=== PATIENT | female | born 1945 | race African-American/Black ===

== ENCOUNTER 2022-11-24 12:42 | Outpatient (CLI) | payer MEDICARE, BC, SELFPAY | END 2022-11-24 12:43 | disposition home or self-care (01) | LOC: AMB 11-27 09:20 | PROVIDERS: PCP Family Medicine; Visit Provider Emergency Medicine | DX: R06.02 Shortness of breath (principal) | CPT/HCPCS: A0425; A0427 ==

== ENCOUNTER 2022-11-24 13:09 | Emergency (ER) | payer MEDICARE, BC, SELFPAY ==
[2022-11-24] VITALS (31 sets, daily range): BP systolic 112–174; BP diastolic 57–91; PULSE 62–78; RESP 20; TEMP 36.1; O2SAT 88–98
--- NOTE | 2022-11-24 13:19 | CRLHL7_ITS ---
For Patients: As a result of the Century Cures Act, medical imaging exams and procedure reports are released immediately into your electronic medical record. You may view this report before your referring provider. If you have questions, please contact your health care provider. INDICATION: Shortness of breath. TECHNIQUE: AP and lateral chest. COMPARISON: 02/17/2018. FINDINGS: Lungs clear. Normal heart size and pulmonary vascularity. No pleural effusion. No pneumothorax. IMPRESSION: No acute chest findings. Dictated by Magdy Newberry MD @ 11/24/2022 2:12:05 PM (Electronically Signed)
[2022-11-24] MEDS: IPRAT-ALBUT 0.5-2.5 MG/3 ML NEB 1 NEB IH (13:20)
--- NOTE | 2022-11-24 13:26 | RESP.RT ---
Patient with shortness of breath presents to ER via EMS. Takes home Albuterol nebulizer treatments. BS wheezy throughout all lung monsivais. Room air spo2 92-93%. JF 64, RR 20-24. Able to speak in full sentences. Complaints of SOB with movement. Duo neb given via HHN. Tolerated well. BS improvement in wheezing throuhgout lung monsivais. Faint crackles in bases. Patient is coughing up clear secretions at home. Will continue to monitor.
[2022-11-24 14:13] LABS: Lactate* 1.1 mmol/L (0.5-1.9)
--- NOTE | 2022-11-24 14:14 | ED.GENADULT ---
HPI - General Adult General Chief complaint: Shortness of Breath/Dyspnea Stated complaint: Shortness of breath Time Seen by Provider: 11/24/22 13:18 Source: patient Mode of arrival: EMS Limitations: no limitations History of Present Illness HPI narrative: Patient is a 77-year-old very frail female coming in today for shortness of breath. States she has been short of breath for over a week. States that she coughs on and off. She denies any chest pain, dizziness or diaphoresis. She denies any fevers that she is aware of, she denies any chills. She denies any vomiting or feeling nauseated. Patient does daily at home peritoneal dialysis. Patient does have a history of COPD, does continue to smoke daily, however she has been working hard on cutting down. Related Data Allergies Allergy/AdvReac Type Severity Reaction Status Date / Time lisinopril AdvReac Cough Verified 11/24/22 13:26 Review of Systems Status of ROS: Reports: 10 or more systems reviewed and unremarkable except as noted in History and below PFSH PFS Social History Smoking Status: Current some day smoker What tobacco products do you use: cigarettes Do you use any of these nicotine containing products: None How often do you have a drink containing alcohol: never AUDIT-C Alcohol total score: 0 Non-prescribed substance use: denies use Exam Narrative: Exam Narrative: Elderly, frail patient with slightly labored breathing. Alert and oriented x3. Answers questions appropriately. Mood and affect are appropriate. Thoughts are goal oriented and rational. No tangential or magical thinking noted. Patient cannot complete a sentence without catching her breath. HEENT: Normocephalic atraumatic. Pupils are equally round reactive to light. Extraocular muscles are intact. Conjunctivae are moist without any icterus noted. Moist mucous membranes. No JVD. Cardiovascular: Heart is regular rate and rhythm heart sounds are distant. Lungs: Bilateral wheezing and bibasilar end-expiratory crackles. Abdomen: Soft and distended. She has normal bowel sounds. Peritoneal dressing in place. Extremities: Bilateral lower extremities are without edema. Skin: Well perfused. Const: Vital Signs, click to edit/add: Vital Signs - 24 hr 11/24/22 13:19 11/24/22 13:19 11/24/22 13:45 Temperature 96.9 F L Pulse Rate 63 Pulse Rate [Pulse Oximeter] 66 Respiratory Rate 20 Blood Pressure Blood Pressure [Ri ght Upper Arm] 174/61 H Pulse Oximetry 93 93 [facility] 11/24/22 14:20 11/24/22 14:30 11/24/22 14:45 Temperature Pulse Rate 62 65 67 Pulse Rate [Pulse Oximeter] Respiratory Rate Blood Pressure Blood Pressure [Ri ght Upper Arm] Pulse Oximetry 93 91 92 [facility] 11/24/22 15:00 11/24/22 15:13 11/24/22 15:15 Temperature Pulse Rate 69 72 68 Pulse Rate [Pulse Oximeter] Respiratory Rate Blood Pressure Blood Pressure [Ri ght Upper Arm] Pulse Oximetry 93 96 97 [facility]/24/22 15:30 11/24/22 15:32 11/24/22 15:45 Temperature Pulse Rate 66 65 65 Pulse Rate [Pulse Oximeter] Respiratory Rate 20 Blood Pressure 140/57 H Blood Pressure [Ri ght Upper Arm] Pulse Oximetry 93 93 88 [facility] 11/24/22 16:00 11/24/22 16:01 11/24/22 16:15 Temperature Pulse Rate 64 63 69 Pulse Rate [Pulse Oximeter] Respiratory Rate 20 Blood Pressure 112/57 L Blood Pressure [Ri ght Upper Arm] Pulse Oximetry 90 90 93 [facility] 11/24/22 16:30 11/24/22 16:32 11/24/22 16:45 Temperature Pulse Rate 69 66 69 Pulse Rate [Pulse Oximeter] Respiratory Rate 20 Blood Pressure 145/59 H Blood Pressure [Ri ght Upper Arm] Pulse Oximetry 93 94 94 [facility] Course Course ED Course: Patient received a DuoNeb which improved her symptoms quite a bit. On reexamination she was able to speak in full sentences without needing to catch her breath, breathing was no longer labored. She was not tachypneic. However, with minimal ambulation patient quickly becomes tachypneic and her breathing becomes labored. Chest x-ray, read by me, did not show any acute infiltrates. EKG, read by me, shows normal sinus rhythm with a pulse of 63. Lab work showed an unremarkable CBC, normal lactate. Elevated creatinine and BUN as expected, normal potassium. Troponin was normal. COVID-19 positive. Vital Signs Vital signs: Initial Vital Signs Temperature 96.9 F L 11/24/22 13:19 Temperature Source Temporal Artery Scan 11/24/22 13:19 Pulse Rate 66 11/24/22 13:19 Pulse Rhythm Regular 11/24/22 13:19 Respiratory Rate 20 11/24/22 13:19 Blood Pressure 174/61 H 11/24/22 13:19 Blood Pressure Mean 98 11/24/22 13:19 Blood Pressure Position Sitting 11/24/22 13:19 Pulse Oximetry 93 11/24/22 13:19 Oxygen Delivery Method Room Air 11/24/22 13:19 Vital Signs Temperature 96.9 F L 11/24/22 13:19 Pulse Rate 66 11/24/22 13:19 Respiratory Rate 20 11/24/22 13:19 Blood Pressure 174/61 H 11/24/22 13:19 Pulse Oximetry 93 11/24/22 13:19 Oxygen Delivery Method Room Air 11/24/22 13:19 Temperature 96.9 F L 11/24/22 13:19 Pulse Rate 69 11/24/22 16:45 Respiratory Rate 20 11/24/22 16:32 Blood Pressure 145/59 H 11/24/22 16:32 Pulse Oximetry 94 11/24/22 16:45 Oxygen Delivery Method Room Air 11/24/22 16:32 Medical Decision Making MDM Narrative Medical decision making narrative: 77-year-old frail elderly female with COVID-19 and failure to thrive at home with increasing shortness of breath. At this time I do not feel that the patient is safe to go home despite the fact that she is not hypoxic given that she requires help with ambulation and becomes very short of breath very quickly. Because of her daily dialysis patient cannot be accepted at [facility], therefore hospital systems across the [facility] were called and we did find her a bed at [facility]. Patient will be transferred via ALS ambulance. Medical Records Medical records reviewed: Yes I reviewed the patient's medical records Lab Data Lab results reviewed: Yes I reviewed the patient's lab results Labs: Lab Results 11/24/22 Range/Units 14:00 WBC 7.25 (4.50-11.00) K/uL RBC 4.06 (4.00-5.20) m/uL Hgb 11.9 L (12.0-16.0) gm/dL Hct 37.1 (33.0-51.0) % MCV 91 (80-100) fL MCH 29 (26-34) pg MCHC 32 (32-36) gm/dL RDW Coeff of Margaret 14.5 (11.5-15.5) % Plt Count 252 (140-440) K/uL Neut % (Auto) 81.3 H (42.0-72.0) % Lymph % (Auto) 7.0 L (20-44) % [place] % (Auto) 7.3 (0.0-11.0) % Eos % (Auto) 3.7 (0.0-7.0) % Baso % (Auto) 0.1 (0.0-3.0) % Neut # (Auto) 5.90 (1.7-7.0) K/uL Lymph # (Auto) 0.50 L (0.90-2.90) K/uL [place] # (Auto) 0.50 (0.00-0.90) K/UL Eos # (Auto) 0.27 (0.00-0.50) K/uL Baso # (Auto) 0.01 (0.00-0.30) K/uL Abs Immat Gran (auto) 0.04 (0.00-0.30) K/uL Imm/Tot Granulo (auto) 0.6 % ESR 78 H (2-20) mm/hr Sodium 129 L (135-149) mmol/L Potassium 4.9 (3.6-5.1) mmol/L Chloride 94 L (96-114) mmol/L Carbon Dioxide 24 (20-32) mmol/L Anion Gap 11 (7-15) mEq/L BUN 84 H (7-30) mg/dL Creatinine 5.0 H (0.5-1.5) mg/dL Estimated GFR 9 ml/min Glucose 196 H (60-115) mg/dL Lactate 1.1 (0.5-1.9) mmol/L Calcium 8.5 (8.4-10.6) mg/dL Magnesium 2.3 (1.5-2.6) mg/dL Total Bilirubin 0.6 (0.1-1.5) mg/dL Direct Bilirubin 0.3 (0.0-0.5) mg/dL AST 31 (12-35) U/L ALT 17 (4-35) U/L Alkaline Phosphatase 106 (40-150) U/L Troponin I < 0.01 L (0.01-0.04) ng/mL C-Reactive Protein 3.5 H (0.5-1.0) mg/dL NT-Pro-B Natriuret Pep 1940 pg/mL Total Protein 6.9 (6.0-8.3) g/dL Albumin 3.3 (3.3-5.0) g/dL SARS-CoV-2 (PCR) POSITIVE SARS-CoV-2 A (Negative) Influenza Type A (PCR) Negative PCR FLU A (Negative) Influenza Type B (PCR) Negative PCR FLU B (Negative) RSV (PCR) Negative PCR RSV (Negative) POC Troponin I 0.00 L (0.01-0.04) ng/ml Imaging Data Chest x-ray: Attestation: I have reviewed the pertinent imaging results. Radiologist's impression: AP and lateral chest. COMPARISON: 02/17/2018. FINDINGS: Lungs clear. Normal heart size and pulmonary vascularity. No pleural effusion. No pneumothorax. IMPRESSION: No acute chest findings. ECG Data Attestation: I personally reviewed and interpreted this ECG as follows: Discharge Plan Discharge Clinical Impression: COVID-19, Frailty Patient Disposition: Xfer Other Condition: Stable Follow Up/Referrals: Tyrell Schneider MD [Primary Care Provider] - Stand Alone Forms: Classting Info Instructions
[2022-11-24 14:16] LABS: Basophils Absolute Auto 0.01 K/uL (0.00-0.30); Basophils Percent Auto 0.1 % (0.0-3.0); Eosinophils Absolute Auto 0.27 K/uL (0.00-0.50); Eosinophils Percent Auto 3.7 % (0.0-7.0); Hematocrit 37.1 % (33.0-51.0); Hemoglobin* 11.9 gm/dL (12.0-16.0); Immature Granulocytes Abs Auto 0.04 K/uL (0.00-0.30); Immature Granulocytes Pct Auto 0.6 %; Mean Corpuscular HGB Conc 32 gm/dL (32-36); Mean Corpuscular Hemoglobin 29 pg (26-34); Mean Corpuscular Volume 91 fL (80-100); Monocytes Percent Auto 7.3 % (0.0-11.0); Neutrophils Percent Auto 81.3 % (42.0-72.0); Platelet Count* 252 K/uL (140-440); RDW Coefficient of Variation % 14.5 % (11.5-15.5); Red Blood Count 4.06 m/uL (4.00-5.20); White Blood Count* 7.25 K/uL (4.50-11.00)
[2022-11-24 14:17] LABS: Slide Review Reflex No
[2022-11-24 14:36] LABS: Albumin* 3.3 g/dL (3.3-5.0); Chloride* 94 mmol/L (96-114); Sodium* 129 mmol/L (135-149)
[2022-11-24 14:37] LABS: Potassium* 4.9 mmol/L (3.6-5.1)
[2022-11-24 14:39] LABS: Estimated Glomerular Filt Rate 9 ml/min
[2022-11-24 14:40] LABS: Alanine Aminotransferase* 17 U/L (4-35); Alkaline Phosphatase* 106 U/L (40-150); Anion Gap 11 mEq/L (7-15); Aspartate Amino Transferase* 31 U/L (12-35); Bilirubin Direct* 0.3 mg/dL (0.0-0.5); Bilirubin Total* 0.6 mg/dL (0.1-1.5); Blood Urea Nitrogen* 84 mg/dL (7-30); Calcium* 8.5 mg/dL (8.4-10.6); Carbon Dioxide* 24 mmol/L (20-32); Glucose* 196 mg/dL (60-115); Total Protein* 6.9 g/dL (6.0-8.3)
[2022-11-24 14:41] LABS: Magnesium* 2.3 mg/dL (1.5-2.6)
--- OUTSIDE RECORDS SUMMARY | 2022-11-24 14:41 | XMS_ITS | Continuity of Care Document ---
Author Name Unknown Organization [facility] Address [address] [address] [place] [address] Phone Care Team Providers Care Digital Press Operator Name Role Phone Unavailable Unavailable Unavailable Advance Directives Directive Yes / No Effective Date File Name No Information Encounters Encounter Description Practice Location Reason(s) For Visit Diagnoses Date Provider Providers Copied on Encounter [facility], [address] [address], [place], [place], [id number], [place] tel:[phone] [facility] No Information Apr- 7200 3 No Information Referring Provider: Listed Not. Family History Family Member Type Diagnosis Age At Onset No Information Payers Payer name Insurance type Covered libertarian ID Authoriza tion(s) [employer] [id number] Social History Type Description Quantity Date Captured Comments Sex Female Smoking Status No Information Chief Complaint And Reason For Visit No Information Reason For Referral Reason For Referral No Information History Of Present Illness Encounter Date Complaint History Of Prese nt Illness No Information Functional Status Date Functional Assessmen t No Information Instructions Date Instruction Additional Infor mation No Information Assessments Type Assessment Date No Information Patient Care Teams Name Effective Dates (start - stop) Status Members No Information
--- OUTSIDE RECORDS SUMMARY | 2022-11-24 14:41 | XMS_ITS | Continuity of Care Document ---
Author Name Unknown Organization [facility] Address [address] [place] [address] Phone Care Team Providers Care Secondary Special Education Teacher Name Role Phone Frankie Brunson Unavailable Unavailable Allergies, Adverse Reactions, Alerts Substance Reaction Status Criticality lisinopril Active No Information amlodipine Active No Information Medications Medication Instructions Dosage Effective Dates (start - stop) Status Comments AMLODIPINE BESYLATE (unknown strength) Not Available - Active OXYCODONE HCL (unknown strength) Not Available - Active LABETALOL HCL (unknown strength) Not Available - Active GLIPIZIDE (unknown strength) Not Available - Active FUROSEMIDE (unknown strength) Not Available - Active CLONIDINE (unknown strength) Not Available - Active Procedures Procedure Date Office/Outpatient Visit,Est, Mod 2020 Office/Outpatient Visit,New, Mod 2020 Advance Directives Directive Yes / No Effective Date File Name No Information Encounters Encounter Description Practice Location Reason(s) For Visit Diagnoses Date Provider Providers Copied on Encounter [facility], [address], [place], [place], [id number] , [place] tel:[phone] [facility] No Information 1 Vianey David. [address] [place] [address], [place], [place], [id number], [place]. [phone] Office/Outpa tient Visit,Est, Mod [facility], [address], [place], [place], [id number] , [place] [phone] [facility] Other spondylosis, lumbar regionSpinal stenosis, lumbar region with neurogenic claudication 1 Allison Lee. [facility], [address], [address], [place], [place], [id number], [place]. tel:[phone] Referring Provider: Tyrell Chamberlain, Arden Reed [address], [place], [address]. tel:[phone] Office/Outpa tient Visit,New, Mod [facility], [address], [place], [place], [id number] , [place] tel:[phone] [facility] Spinal stenosis, lumbar region with neurogenic claudicationOt her spondylosis, lumbar region 1 No Information Referring Provider: Tyrell Chamberlain, Arden Reed [address], [place], [address]. tel:[phone] Family History Family Member Type Diagnosis Age At Onset No Information Payers Payer name Insurance type Covered libertarian ID Authorcarmenzaa hernesto(s) [facility] [id number] Medicare [facility] [id number] 1 Social History Type Description Quantity Date Captured [...]
[2022-11-24 14:43] LABS: C Reactive Protein* 3.5 mg/dL (0.5-1.0)
[2022-11-24 14:54] LABS: NT Pro B Type NatriureticPept* 1940 pg/mL; Troponin I* < 0.01 ng/mL (0.01-0.04)
[2022-11-24] MEDS: predniSONE 20 MG TABLET 60 MG PO (14:55)
[2022-11-24 15:04] LABS: PCR FLU A Negative PCR FLU A (Negative); PCR FLU B Negative PCR FLU B (Negative); PCR RSV Negative PCR RSV (Negative)
[2022-11-24 15:07] LABS: SARS PCR* POSITIVE SARS-CoV-2 (Negative)
[2022-11-24 15:20] LABS: Erythrocyte SedimentationRate* 78 mm/hr (2-20)
== END 2022-11-24 20:12 | disposition other institution (70) ==
PROVIDERS: Emergency Provider Family Medicine; PCP Family Medicine
DX: U07.1 COVID-19 (principal); R54 Age-related physical debility
CPT/HCPCS: 36415; 71046; 80048; 80076; 83605; 83735; 83880; 84484; 85025; 85651; 86140; 87631; 93005; 94640; 94761; 99284; 99285; J7512

== ENCOUNTER 2022-11-28 15:27 | Outpatient (CLI) | payer MEDICARE, BC, SELFPAY ==
--- OUTSIDE RECORDS SUMMARY | 2022-12-01 16:04 | XMS_ITS | Continuity of Care Document ---
Author Name Unknown Organization [facility] Address [address] [place] [address] Phone Care Team Providers Care Perinatal Instructor Name Role Phone Frankie Brunson Unavailable Unavailable [...] Copied on Encounter [facility], [address], [place], [place], [id number] , [place] tel:[phone] [facility] No Information 1 Vianey David. [address] [place] [address], [place], [place], [id number], [place]. [phone] Office/Outpa tient Visit,Est, Mod [facility], [address], [place], [place], [id number] , [place] tel:[phone] [facility] Other spondylosis, lumbar regionSpinal stenosis, lumbar region with neurogenic claudication 1 Allison Lee. [facility], [address], [address], [place], [place], [id number], [place]. tel:[phone] Referring Provider: Tyrell Chamberlain, [employer] [address], [place], [address]. tel:[phone] Office/Outpa tient Visit,New, Mod [facility], [address], [place], [place], [id number] , [place] tel:[phone] [facility] [place] Spinal stenosis, lumbar region with neurogenic claudicationOt her spondylosis, lumbar region 1 No Information Referring Provider: Tyrell Chamberlain, [employer] [address], [place], [address]. tel:[phone] Family History Family Member Type Diagnosis Age At Onset No Information Payers Payer name Insurance type Covered republican ID Authorcarmenzaa hernesto(s) [facility] [id number] Medicare [facility] [id number] 1 Social History Type Description Quantity Date [...]
== END 2022-11-28 15:28 | disposition home or self-care (01) ==
LOC: AMB 12-01 16:03
PROVIDERS: PCP Family Medicine; Visit Provider Family Medicine
DX: R06.09 Other forms of dyspnea (principal); R10.9 Unspecified abdominal pain
CPT/HCPCS: A0425; A0427; A0428

== ENCOUNTER 2022-11-28 15:59 | Emergency (ER) | payer MEDICARE, BC, SELFPAY ==
[2022-11-28] VITALS (12 sets, daily range): BP systolic 127–179; BP diastolic 54–86; PULSE 56–94; RESP 12–20; TEMP 36.6; O2SAT 90–100; BMI 18.1
--- NOTE | 2022-11-28 16:28 | CRLHL7_ITS ---
For Patients: As a result of the 21st Century Cures Act, medical imaging exams and procedure reports are released immediately into your electronic medical record. You may view this report before your referring provider. If you have questions, please contact your health care provider. INDICATION: Shortness of breath. On dialysis. TECHNIQUE: CT chest PE was acquired with 95 mL Isovue 370 IV contrast. COMPARISON: None. FINDINGS: Heart and vasculature: Contrast opacification of the pulmonary arterial tree is adequate. No sign of pulmonary embolism. Heart size is normal. Thoracic aorta and pulmonary artery are normal in caliber. Lungs and pleural: Mild emphysema. 9 mm slightly spiculated nodule in the medial right upper lobe image 81 series 6. 5 mm nodule in right lower lobe image 74. Diffuse bronchial wall thickening and scattered mucous plugging greatest in the lower lobes. No pleural effusions, pleural thickening, or pneumothorax. Lymph nodes/mediastinum: No mediastinal, hilar, or axillary adenopathy. Thyroid gland is normal. Chest wall: No masses. Upper abdomen: Normal. 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 IMPRESSION: 1. No pulmonary emboli. 2. Bronchial wall thickening and scattered mucous plugging compatible with airways disease. Emphysema. 3. 9 mm slightly spiculated right upper lobe pulmonary nodule. 5 mm right lower lobe pulmonary nodule. 4. 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 [employer] GUID[employer]ES - SOLID NODULES: SINGLE LOW RISK - nodule less than 6 mm: No routine follow-up. - nodule 6-8 mm: CT at 6-12 months, then consider CT at 18-24 months. - nodule greater than 8 mm: Consider CT at 3 months, PET/CT or tissue sampling. SINGLE HIGH RISK - nodule less than 6 mm: Optional CT at 12 months. - nodule 6-8 mm: CT at 6-12 months, then CT at 18-24 months. - nodule greater than 8 mm: Consider CT at 3 months, PET/CT or tissue sampling. MULTIPLE LOW RISK - nodule less than 6 mm: No routine follow-up. - nodule 6-8 mm: CT at 3-6 months, then consider CT at 18-24 months. - nodule greater than 8 mm: CT at 3-6 months, then consider CT at 18-24 months. MULTIPLE HIGH RISK - nodule less than 6 mm: Optional CT at 12 months. - nodule 6-8 mm: CT at 3-6 months, then at 18-24 months. - nodule greater than 8 mm: CT at 3-6 months, then at 18-24 months. Please note that all CT scans at this facility use dose modulation, iterative reconstruction, and/or weight-based dosing when appropriate to reduce radiation dose to as low as reasonably achievable. Dictated by Magdy Newberry MD @ 11/28/2022 7:50:23 PM (Electronically Signed)
--- NOTE | 2022-11-28 16:28 | CRLHL7_ITS ---
For Patients: As a result of the Century Cures Act, medical imaging exams and procedure reports are released immediately into your electronic medical record. You may view this report before your referring provider. If you have questions, please contact your health care provider. INDICATION: Abdominal pain TECHNIQUE: CT abdomen and pelvis acquired with 95 mL Isovue 370 IV contrast. COMPARISON: 05/13/[address] FINDINGS: Lower chest: Unremarkable. Liver: Unremarkable. Normal in size and attenuation. No masses. Gallbladder and bile ducts: Unremarkable. No stones or inflammation. No biliary dilatation. Pancreas: Unremarkable. No mass or inflammation. Spleen: Unremarkable. Normal in size. No masses. Adrenal glands: Unremarkable. No nodules. Kidneys: Multiple cysts throughout both kidneys. No masses, stones, or hydronephrosis. GI tract: Possible thickening of the gastric antrum suggesting gastritis. Large amount of stool throughout the colon. Vasculature: Unremarkable. Mesenteric arteries are patent. Lymph nodes: No lymphadenopathy. Omentum/Peritoneum/Abdominal Wall: Peritoneal dialysis catheter in place. No free air or significant free fluid. Pelvis: Multiple calcified and uncalcified uterine fibroids. Bones: Unremarkable for age. IMPRESSION: 1. Possible gastritis. 2. Large amount of colonic stool. Please note that all CT scans at this facility use dose modulation, iterative reconstruction, and/or weight-based dosing when appropriate to reduce radiation dose to as low as reasonably achievable. Dictated by Magdy Newberry MD @ 11/28/2022 7:41:06 PM (Electronically Signed)
--- NOTE | 2022-11-28 16:38 | ED_ITS ---
HPI - General Adult General Date Seen: 11/28/22 Chief complaint: Abdominal Pain Stated complaint: Short of breath Time Seen by Provider: 11/28/22 16:02 Source: patient Mode of arrival: EMS Limitations: no limitations History of Present Illness HPI narrative: Patient is a 77-year-old female with a history of peritoneal dialysis she does daily at home, recent COVID diagnosis 4 days prior presenting to the emergency department for shortness of breath and abdominal pain. Patient was here 4 days prior and diagnosed with COVID-19. She is here for shortness of breath. Due to her peritoneal dialysis use transferred to an outside hospital. She was discharged from there 2 days ago. She says at time of discharge she is feeling the same as when she 1st came in. She is also having some mild periumbilical abdominal pain. She was feeling too sick to go in to see her home health nurse of pulmonary with nurse came to her and called EMS. Patient is very wheezy for EMS and she was given a round of dual nebs. She states this helped her significantly. States she has been trying her home nebulizers and have not been helping. She is a smoker. Denies fevers, chills, headache, vision changes. Does have some chest pain in the left upper chest region. Related Data Home Medications Medication Instructions Recorded Confirmed albuterol sulfate 2.5 mg/3 mL 2.5 mg Q4H PRN dyspnea 11/28/22 (0.083 %) solution for nebulization amlodipine 10 mg tablet 10 mg PO BID 11/28/22 11/28/22 aspirin 81 mg capsule 81 mg PO DAILY 11/28/22 11/28/22 clonidine HCl 0.1 mg tablet mg PO 11/28/22 furosemide 40 mg tablet 40 mg PO QAM 11/28/22 11/28/22 glipizide 10 mg tablet, extended mg PO 11/28/22 release 24 hr labetalol 300 mg tablet 300 mg PO 3XD 11/28/22 11/28/22 neomycin 3.5 mg/g-polymyxin B 11/28/22 10,000 unit/g-dexameth 0.1 % eye oint oxycodone 5 mg tablet 5 mg PO BID PRN 11/28/22 11/28/22 repaglinide 1 mg tablet 1 mg PO 3XD 11/28/22 11/28/22 sennosides 8.6 mg tablet (senna) 8.6 - 34.4 mg PO DAILY PRN 11/28/22 11/28/22 sorbitol 70 % solution 30 ml PO DAILY PRN constipation 11/28/22 11/28/22 triamcinolone acetonide 0.1 % applic topical BID 11/28/22 topical cream Allergies Allergy/AdvReac Type Severity Reaction Status Date / Time atenolol Allergy Unknown Rash Verified 11/28/22 16:50 atorvastatin [From Lipitor] Allergy Unknown Verified 11/28/22 16:50 cat dander Allergy Unknown Difficulty Verified 11/28/22 16:50 Breathing dog dander Allergy Unknown Sneezing Verified 11/28/22 16:50 zarco Allergy Unknown Edema Verified 11/28/22 16:50 gemfibrozil Allergy Unknown Verified 11/28/22 16:50 hydrochlorothiazide Allergy Unknown Rash Verified 11/28/22 16:50 losartan Allergy Unknown Verified 11/28/22 16:50 niacin Allergy Unknown Verified 11/28/22 16:50 oak Allergy Unknown Rash Verified 11/28/22 16:50 pioglitazone Allergy Unknown Verified 11/28/22 16:50 ampicillin Allergy Hives Verified 11/28/22 16:50 dulaglutide [From Trulicity] AdvReac Unknown Vomiting Verified 11/28/22 16:50 pravastatin AdvReac Unknown Verified 11/28/22 16:50 simvastatin AdvReac Unknown Verified 11/28/22 16:50 gatifloxacin [From Tequin] AdvReac Nausea Verified 11/28/22 16:50 lisinopril AdvReac Cough Verified 11/28/22 16:50 Review of Systems Status of ROS: Reports: 10 or more systems reviewed and unremarkable except as noted in History and below PFSH PFS Social History Smoking Status: Current some day smoker What tobacco products do you use: cigarettes Do you use any of these nicotine containing products: None How often do you have a drink containing alcohol: never AUDIT-C Alcohol total score: 0 Non-prescribed substance use: denies use Exam Narrative: Exam Narrative: Const: Well-nourished, Well-developed, in mild distress Eyes: PERRL, no conjunctival injection, and symmetrical lids HENT: Atraumatic external nose and ears. Moist mucous membranes. Neck: Symmetric, trachea midline, No thyromegaly. CVS: RRR, No murmurs or gallops. Peripheral pulses 2+ and equal in all extremities RESP: Unlabored respiratory effort. Mild wheezing throughout. GI: Tenderness just above the umbilicus. No tenderness noted anywhere else Nondistended, No rebound or guarding. MSK:Extremities w/o deformity, Normal Active ROM. No tenderness to palpation of the chest Skin: Warm, Dry. No rashes or lesions. Neuro: Normal Muscle tone, No focal neurological deficits. Psych: Awake, Alert, & Oriented x3. Appropriate mood and affect. Const: Vital Signs, click to edit/add: Vital Signs - 24 hr 11/28/22 16:08 11/28/22 16:31 11/28/22 18:03 Temperature 97.8 F Pulse Rate 56 L 65 Pulse Rate [Pulse Oximeter] 94 Respiratory Rate 18 14 14 Blood Pressure 142/74 H Blood Pressure [Ri ght Upper Arm] 154/57 H Pulse Oximetry 94 92 92 Oxygen Delivery Me thod Room Air 11/28/22 18:15 11/28/22 18:30 11/28/22 19:31 Temperature Pulse Rate 65 63 69 Pulse Rate [Pulse Oximeter] Respiratory Rate 14 20 14 Blood Pressure 131/62 Blood Pressure [Ri ght Upper Arm] Pulse Oximetry 95 95 95 Oxygen Delivery Me thod 11/28/22 20:01 11/28/22 20:31 11/28/22 21:02 Temperature Pulse Rate 68 64 63 Pulse Rate [Pulse Oximeter] Respiratory Rate 14 12 16 Blood Pressure 131/58 L 127/65 133/61 Blood Pressure [Ri ght Upper Arm] Pulse Oximetry 96 100 94 Oxygen Delivery Me thod Course Vital Signs Vital signs: Initial Vital Signs Temperature 97.8 F 11/28/22 16:08 Temperature Source Temporal Artery Scan 11/28/22 16:08 Pulse Rate 94 11/28/22 16:08 Pulse Rhythm Regular 11/28/22 16:08 Respiratory Rate 18 11/28/22 16:08 Blood Pressure 154/57 H 11/28/22 16:08 Blood Pressure Mean 89 11/28/22 16:08 Blood Pressure Position Supine 11/28/22 16:08 Pulse Oximetry 94 11/28/22 16:08 Oxygen Delivery Method Room Air 11/28/22 16:08 Vital Signs Temperature 97.8 F 11/28/22 16:08 Pulse Rate 94 11/28/22 16:08 Respiratory Rate 18 11/28/22 16:08 Blood Pressure 154/57 H 11/28/22 16:08 Pulse Oximetry 94 11/28/22 16:08 Oxygen Delivery Method Room Air 11/28/22 16:08 Temperature 97.8 F 11/28/22 16:08 Pulse Rate 63 11/28/22 21:02 Respiratory Rate 16 11/28/22 21:02 Blood Pressure 133/61 11/28/22 21:02 Pulse Oximetry 94 11/28/22 21:02 Oxygen Delivery Method Room Air 11/28/22 16:08 Medical Decision Making MDM Narrative Medical decision making narrative: Patient is a 77-year-old female with a history of peritoneal dialysis and recent COVID diagnosis presenting to the emergency department for shortness of breath. Symptoms have been going on for over a week now she is discharged from the hospital 2 days ago. States she is feeling the same at time of discharge symptoms are not improving. She is back today for exact same symptoms. She has also been some mild abdominal pain. Home health nurse was concern for peritonitis but the pain is only just above the umbilicus and there is no diffuse pain. Seems unlikely to be peritonitis at this time. There is concern for pulmonary embolism concern her recent COVID diagnosis were ordered a CTA of the chest. CT of the abdomen pelvis with contrast also ordered. Lab work ordered and includes magnesium, CBC, CMP, lipase, troponin. Patient's CBC returned showing no concerning abnormalities. CMP shows a sodium of 129 potassium 5.8 chloride of 92. BUN and creatinine are elevated but she is on peritoneal dialysis. Troponin is less than 0.01. She is already known COVID positive and this was not recheck to. Urinalysis is negative due to her history of CTA was ordered returned showing some bronchial thickening but no other concerning abnormalities. She was having some periumbilical pain and it shows gastritis and a large amount of colonic stool. She is feeling better after the DuoNebs but still feels very weak. She does produce urine so was given Lasix. Also gave insulin and glucose. No signs of hyperacute T-waves and calcium was not needed at this time. She was accepted to [facility] and the accepting provider is Dr. Valdez. Patient is agreeable to this plan Lab Data Labs: Lab Results 11/28/22 11/28/22 11/28/22 Range/Units 18:00 18:11 18:22 WBC 10.12 (4.50-11.00) K/uL RBC 4.20 (4.00-5.20) m/uL Hgb 12.4 (12.0-16.0) gm/dL Hct 38.1 (33.0-51.0) % MCV 91 (80-100) fL MCH 30 (26-34) pg MCHC 33 (32-36) gm/dL RDW Coeff of Margaret 14.6 (11.5-15.5) % Plt Count 279 (140-440) K/uL Neut % (Auto) 90.1 H (42.0-72.0) % Lymph % (Auto) 4.6 L (20-44) % [place] % (Auto) 4.0 (0.0-11.0) % Eos % (Auto) 1.0 (0.0-7.0) % Baso % (Auto) 0.0 (0.0-3.0) % Neut # (Auto) 9.10 H (1.7-7.0) K/uL Lymph # (Auto) 0.50 L (0.90-2.90) K/uL [place] # (Auto) 0.40 (0.00-0.90) K/UL Eos # (Auto) 0.10 (0.00-0.50) K/uL Baso # (Auto) 0.00 (0.00-0.30) K/uL Abs Immat Gran (auto) 0.03 (0.00-0.30) K/uL Imm/Tot Granulo (auto) 0.3 % Sodium 129 L (135-149) mmol/L Potassium 5.8 H (3.6-5.1) mmol/L Chloride 92 L (96-114) mmol/L Carbon Dioxide 26 (20-32) mmol/L Anion Gap 11 (7-15) mEq/L BUN 78 H (7-30) mg/dL Creatinine 4.4 H (0.5-1.5) mg/dL Estimated Creat Clear 7.59 Estimated GFR 10 ml/min Glucose 180 H (60-115) mg/dL Calcium 8.9 (8.4-10.6) mg/dL Magnesium 2.3 (1.5-2.6) mg/dL Total Bilirubin 0.6 (0.1-1.5) mg/dL AST 40 H (12-35) U/L ALT 22 (4-35) U/L Alkaline Phosphatase 98 (40-150) U/L Troponin I < 0.01 L (0.01-0.04) ng/mL Total Protein 7.1 (6.0-8.3) g/dL Albumin 3.5 (3.3-5.0) g/dL Lipase 84 (23-300) U/L Urine Color Yellow Cancelled (Yellow) Urine Appearance Clear Cancelled (Clear) Urine pH 7.0 Cancelled (5.0-8.5) Ur Specific [place] 1.015 Cancelled (1.000-1.030) Urine Protein 2+ A Cancelled (Negative) Urine Glucose (UA) Trace A Cancelled (Negative) Urine Ketones Negative Cancelled (Negative) Urine Blood Trace-intact A Cancelled (Negative) Urine Nitrite Negative Cancelled (Negative) Urine Bilirubin Negative Cancelled (Negative) Urine Urobilinogen 0.2 Cancelled (0.2-1.0) Ur Leukocyte Esterase Negative Cancelled (Negative) Urine RBC 0-2 (0-2) Urine WBC 0-2 (0-5) Ur Squamous Epith Cells None (None-Few) Urine Bacteria None (None) Imaging Data CT abdomen and pelvis: Radiologist's impression: INDICATION: Abdominal pain TECHNIQUE: CT abdomen and pelvis acquired with 95 mL Isovue 370 IV contrast. COMPARISON: 05/13/[address] FINDINGS: Lower chest: Unremarkable. Liver: Unremarkable. Normal in size and attenuation. No masses. Gallbladder and bile ducts: Unremarkable. No stones or inflammation. No biliary dilatation. Pancreas: Unremarkable. No mass or inflammation. Spleen: Unremarkable. Normal in size. No masses. Adrenal glands: Unremarkable. No nodules. Kidneys: Multiple cysts throughout both kidneys. No masses, stones, or hydronephrosis. GI tract: Possible thickening of the gastric antrum suggesting gastritis. Large amount of stool throughout the colon. Vasculature: Unremarkable. Mesenteric arteries are patent. Lymph nodes: No lymphadenopathy. Omentum/Peritoneum/Abdominal Wall: Peritoneal dialysis catheter in place. No free air or significant free fluid. Pelvis: Multiple calcified and uncalcified uterine fibroids. Bones: Unremarkable for age. IMPRESSION: 1. Possible gastritis. 2. Large amount of colonic stool. Please note that all CT scans at this facility use dose modulation, iterative reconstruction, and/or weight-based dosing when appropriate to reduce radiation dose to as low as reasonably achievable. Dictated by Magdy Newberry MD @ 11/28/2022 7:41:06 PM CTA chest: Radiologist's impression: INDICATION: Shortness of breath. On dialysis. TECHNIQUE: CT chest PE was acquired with 95 mL Isovue 370 IV contrast. COMPARISON: None. FINDINGS: Heart and vasculature: Contrast opacification of the pulmonary arterial tree is adequate. No sign of pulmonary embolism. Heart size is normal. Thoracic aorta and pulmonary artery are normal in caliber. Lungs and pleural: Mild emphysema. 9 mm slightly spiculated nodule in the medial right upper lobe image 81 series 6. 5 mm nodule in right lower lobe image 74. Diffuse bronchial wall thickening and scattered mucous plugging greatest in the lower lobes. No pleural effusions, pleural thickening, or pneumothorax. Lymph nodes/mediastinum: No mediastinal, hilar, or axillary adenopathy. Thyroid gland is normal. Chest wall: No masses. Upper abdomen: Normal. 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 IMPRESSION: 1. No pulmonary emboli. 2. Bronchial wall thickening and scattered mucous plugging compatible with airways disease. Emphysema. 3. 9 mm slightly spiculated right upper lobe pulmonary nodule. 5 mm right lower lobe pulmonary nodule. 4. 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 [employer] GUID[employer]INES - SOLID NODULES: SINGLE LOW RISK - nodule less than 6 mm: No routine follow-up. - nodule 6-8 mm: CT at 6-12 months, then consider CT at 18-24 months. - nodule greater than 8 mm: Consider CT at 3 months, PET/CT or tissue sampling. SINGLE HIGH RISK - nodule less than 6 mm: Optional CT at 12 months. - nodule 6-8 mm: CT at 6-12 months, then CT at 18-24 months. - nodule greater than 8 mm: Consider CT at 3 months, PET/CT or tissue sampling. MULTIPLE LOW RISK - nodule less than 6 mm: No routine follow-up. - nodule 6-8 mm: CT at 3-6 months, then consider CT at 18-24 months. - nodule greater than 8 mm: CT at 3-6 months, then consider CT at 18-24 months. MULTIPLE HIGH RISK - nodule less than 6 mm: Optional CT at 12 months. - nodule 6-8 mm: CT at 3-6 months, then at 18-24 months. - nodule greater than 8 mm: CT at 3-6 months, then at 18-24 months. Please note that all CT scans at this facility use dose modulation, iterative reconstruction, and/or weight-based dosing when appropriate to reduce radiation dose to as low as reasonably achievable. Dictated by Magdy Newberry MD @ 11/28/2022 7:50:23 PM ECG Data Attestation: I personally reviewed and interpreted this ECG as follows: Prior ECG tracings: available for review Interpretation: EKG shows normal sinus rhythm at 59 beats per minute, normal intervals, normal axis, no ST or T-wave abnormalities. Appears similar to previous EKG on file Discharge Plan Discharge Clinical Impression: COVID-19, Weakness, Acute hyperkalemia Patient Disposition: Xfer Other Discharge Location: [facility] Condition: Improved Prescriptions: No Action furosemide 40 mg tablet 40 mg PO QAM sennosides [senna] 8.6 mg tablet 8.6 - 34.4 mg PO DAILY PRN clonidine HCl 0.1 mg tablet PO albuterol sulfate 2.5 mg /3 mL (0.083 %) solution for nebulization 2.5 mg Q4H PRN (Reason: dyspnea) glipizide 10 mg tablet extended release 24hr PO triamcinolone acetonide 0.1 % cream topical BID amlodipine 10 mg tablet 10 mg PO BID labetalol 300 mg tablet 300 mg PO 3XD sorbitol 70 % solution 30 ml PO DAILY PRN (Reason: constipation) repaglinide 1 mg tablet 1 mg PO 3XD oxycodone 5 mg tablet 5 mg PO BID PRN neomycin-polymyxin B-dexameth 3.5 mg/g-10,000 unit/g-0.1 % ointment Patient Comments: [NO ORIGINAL SIG] aspirin 81 mg capsule 81 mg PO DAILY Stand Alone Forms: [facility] Info Instructions
[2022-11-28] MEDS: IPRAT-ALBUT 0.5-2.5 MG/3 ML NEB 1 NEB IH (16:57)
[2022-11-28] MEDS: MORPHINE 4 MG/ML INJ IM (18:33)
[2022-11-28] MEDS: ONDANSETRON 2 MG/ML inj 4 MG IVP (18:33)
[2022-11-28 18:35] LABS: Hematocrit 38.1 % (33.0-51.0); Hemoglobin* 12.4 gm/dL (12.0-16.0); Immature Granulocytes Abs Auto 0.03 K/uL (0.00-0.30); Immature Granulocytes Pct Auto 0.3 %; Lymphocytes Percent Auto 4.6 % (20-44); Mean Corpuscular HGB Conc 33 gm/dL (32-36); Mean Corpuscular Hemoglobin 30 pg (26-34); Mean Corpuscular Volume 91 fL (80-100); Neutrophils Percent Auto 90.1 % (42.0-72.0); Platelet Count* 279 K/uL (140-440); RDW Coefficient of Variation % 14.6 % (11.5-15.5); White Blood Count* 10.12 K/uL (4.50-11.00)
[2022-11-28 18:38] LABS: Appearance Urine Clear (Clear); Bilirubin Urine Negative (Negative); Blood Urine Trace-intact (Negative); Color Urine Yellow (Yellow); Glucose Urine Trace (Negative); Ketones Urine Negative (Negative); Leukocyte Esterase Urine Negative (Negative); Nitrite Urine Negative (Negative); Protein Urine 2+ (Negative); Specific Gravity Urine 1.015 (1.000-1.030); Urobilinogen Urine 0.2 (0.2-1.0)
[2022-11-28 18:40] LABS: RBC Urine 0-2 (0-2); WBC Urine 0-2 (0-5)
[2022-11-28 18:45] LABS: Slide Review Reflex No
[2022-11-28 18:49] LABS: Chloride* 92 mmol/L (96-114)
[2022-11-28 18:50] LABS: Albumin* 3.5 g/dL (3.3-5.0); Potassium* 5.8 mmol/L (3.6-5.1); Sodium* 129 mmol/L (135-149)
[2022-11-28 18:52] LABS: Anion Gap 11 mEq/L (7-15); Aspartate Amino Transferase* 40 U/L (12-35); Bilirubin Total* 0.6 mg/dL (0.1-1.5); Carbon Dioxide* 26 mmol/L (20-32); Creatinine* 4.4 mg/dL (0.5-1.5); Est. Creatinine Clearance* 7.59; Estimated Glomerular Filt Rate 10 ml/min
[2022-11-28 18:53] LABS: Alanine Aminotransferase* 22 U/L (4-35); Alkaline Phosphatase* 98 U/L (40-150); Blood Urea Nitrogen* 78 mg/dL (7-30); Calcium* 8.9 mg/dL (8.4-10.6); Glucose* 180 mg/dL (60-115); Total Protein* 7.1 g/dL (6.0-8.3)
[2022-11-28 19:13] LABS: Lipase* 84 U/L (23-300)
[2022-11-28 19:14] LABS: Magnesium* 2.3 mg/dL (1.5-2.6)
[2022-11-28 19:27] LABS: Troponin I* < 0.01 ng/mL (0.01-0.04)
--- NOTE | 2022-11-28 20:42 | ED.NURSE ---
Report given to SUSANA Laguna.
--- NOTE | 2022-11-28 21:17 | PC.NURSE ---
patient requested food, BG 130. given sandwich and drink.
[2022-11-28] MEDS: FUROSEMIDE 10 MG/ML inj 40 MG IVP (22:00)
--- NOTE | 2022-11-28 22:13 | PC.NURSE ---
report given to Obey MEZA at [facility]. patient going to room 627
[2022-11-28] MEDS: DEXTROSE 50 % SYRINGE IVP (22:26)
--- NOTE | 2022-11-28 22:43 | PC.NURSE ---
reports given to EMS
== END 2022-11-28 22:52 | disposition other institution (70) ==
PROVIDERS: Emergency Provider Student in an Organized Health Care Education/Training Program; PCP Family Medicine
DX: U07.1 COVID-19 (principal); R53.1 Weakness; E87.5 Hyperkalemia
CPT/HCPCS: 36415; 71275; 74177; 80053; 81001; 81003; 82962; 83690; 83735; 84484; 85025; 93005; 94640; 99283; 99285; J1940; J2270; J2405; Q9967

== ENCOUNTER 2022-11-28 22:40 | Outpatient (CLI) | payer MEDICARE, BC, SELFPAY ==
--- OUTSIDE RECORDS SUMMARY | 2022-12-01 16:16 | XMS_ITS | Continuity of Care Document ---
Author Name Unknown Organization [facility] Address [address] [place] [address] Phone Care Team Providers Care Lightout Examiner Name Role Phone Frankie Brunson Unavailable Unavailable Allergies, Adverse Reactions, Alerts Substance Reaction Status Criticality lisinopril Active No Information amlodipine Active No Information Medications Medication Instructions Dosage Effective Dates (start - stop) Status Comments AMLODIPINE BESYLATE (unknown strength) Not Available - Active CLONIDINE (unknown strength) Not Available - Active FUROSEMIDE (unknown strength) Not Available - Active GLIPIZIDE (unknown strength) Not Available - Active LABETALOL HCL (unknown strength) Not Available - Active OXYCODONE HCL (unknown strength) Not Available - Active Procedures Procedure Date Office/Outpatient Visit,Est, Mod 2020 Office/Outpatient Visit,New, Mod 2020 Advance Directives Directive Yes / No Effective Date File Name No Information Encounters Encounter Description Practice Location Reason(s) For Visit Diagnoses Date Provider Providers Copied on Encounter [facility], [address], [place], [place], [id number] , [place] tel:[phone] [facility] No Information 1 Vianey David. [address] [place] [address], [place], [place], [id number], [place]. [phone] Office/Outpa tient Visit,Est, Mod [facility], [address], [place], [place], [id number] , [place] [phone] [facility] Other spondylosis, lumbar regionSpinal stenosis, lumbar region with neurogenic claudication 1 Allison Lee. [facility], [address], [address], [place], [place], [id number], [place]. tel:[phone] Referring Provider: Tyrell Chamberlain, [employer] [address], [place], [address]. tel:[phone] Office/Outpa tient Visit,New, Mod [facility], [address], [place], [place], [id number] , [place] tel:[phone] [facility] Spinal stenosis, lumbar region with neurogenic claudicationOt her spondylosis, lumbar region 1 No Information Referring Provider: Tyrell Chamberlain, [employer] [address], [place], [address]. tel:[phone] Family History Family Member Type Diagnosis Age At Onset No Information Payers Payer name Insurance type Covered alliance party ID Authorcarmenzaa hernesto(s) [facility] [id number] Medicare [facility] [id number] 1 Social History Type Description Quantity Date [...]
== END 2022-11-28 22:41 | disposition home or self-care (01) ==
LOC: AMB 12-01 16:14
PROVIDERS: PCP Family Medicine; Visit Provider Student in an Organized Health Care Education/Training Program
DX: U07.1 COVID-19 (principal); R06.09 Other forms of dyspnea
CPT/HCPCS: A0425; A0428

== ENCOUNTER 2022-12-12 20:33 | Outpatient (CLI) | payer MEDICARE, BC, SELFPAY ==
--- OUTSIDE RECORDS SUMMARY | 2022-12-15 16:52 | XMS_ITS | Continuity of Care Document ---
Author Name Unknown Organization [facility] Address [address] [place] [address] Phone Care Team Providers Care Absorption And Adsorption Engineer Name Role Phone Frankie Brunson Unavailable Unavailable [...] Copied on Encounter [facility], [address], [place], [place], [id number] , [place] tel:[phone] [facility] No Information 1 Vianey David. [address] [place] [address], [place], [place], [id number], [place]. [phone] Office/Outpa tient Visit,Est, Mod [facility], [address], [place], [place], [id number] , [place] [phone] [facility] Other spondylosis, lumbar regionSpinal stenosis, lumbar region with neurogenic claudication 1 Allison Lee. [facility], [address], [address], [place], [place], [id number], [place]. tel:[phone] Referring Provider: Tyrell Chamberlain, [employer] [address], [place], [address]. tel:[phone] Office/Outpa tient Visit,New, Mod [facility], [address], [place], [place], [id number] , [place] tel:[phone] [facility] [place] Spinal stenosis, lumbar region with neurogenic claudicationOt her spondylosis, lumbar region 1 No Information Referring Provider: Tyrell Chamberlain, [employer] [address], [place], [address]. tel:[phone] Family History Family Member Type Diagnosis Age At Onset No Information Payers Payer name Insurance type Covered democrat ID Authorcarmenzaa hernesto(s) [facility] [id number] Medicare [facility] [id number] 1 Social History Type Description Quantity Date [...]
--- OUTSIDE RECORDS SUMMARY | 2022-12-15 16:53 | XMS_ITS | Continuity of Care Document ---
Author Name Unknown Organization [facility] Address [address] [address] [place] [address] Phone Care Team Providers Care Brain Wave Technician Name Role Phone Unavailable Unavailable Unavailable Advance Directives Directive Yes / No Effective Date File Name No Information Encounters Encounter Description Practice Location Reason(s) For Visit Diagnoses Date Provider Providers Copied on Encounter [facility], [address] [address], [place], [place], [id number], [place] tel:[phone] [facility] No Information Apr- 7200 3 No Information Referring Provider: Listed Not. Family History Family Member Type Diagnosis Age At Onset No Information Payers Payer name Insurance type Covered alliance party ID Authoriza tion(s) No Information Social History Type Description Quantity Date Captured [...]
== END 2022-12-12 20:34 | disposition home or self-care (01) ==
LOC: AMB 12-15 16:50
PROVIDERS: PCP Family Medicine; Visit Provider Family Medicine
DX: E11.65 Type 2 diabetes mellitus with hyperglycemia (principal); R53.1 Weakness
CPT/HCPCS: A0425; A0427

== ENCOUNTER 2023-02-19 17:34 | Outpatient (CLI) | payer MEDICARE, BC, SELFPAY ==
--- OUTSIDE RECORDS SUMMARY | 2023-02-22 16:09 | XMS_ITS ---
Author Name Toni, Clinic Address [address] [place] [address] Phone [phone] Organization [facility] e, NA DOCUMENT DISCLAIMER Multiple document versions may exist, please be sure you review the latest version. The information in the [facility] Continuity of Care Document represents a summary of certain health and medical information. It may not contain the complete medical history for the patient and should be independently verified. The represented time in the document is Eastern Time. PROBLEMS Problem Code Status Onset Date Other secondary hypertension I15.8 Active February 01, 2023 Anemia, unspecified D64.9 Active December 19, 2022 Hyperkalemia E87.5 Active December 19 Encounter for adequacy testi ng for peritoneal dialysis Z49.32 Active July 23, 2022 Encounter for prophylactic measures, unspecified Z29.9 Active January 19, 2021 Essential (primary) hypertension I10 Active February 17, 2020 Iron deficiency anemia, unspecified D50.9 Activ e June 30, 2019 Dependence on renal dialysis Z99.2 Active April 18, 2018 Encounter for immunization Z23 Active [facility] 2018 End stage renal disease N18.6 Active [facility] 2018 Secondary hyperparathyroidis m, 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 Active April 18, 2018 Chronic obstructive pulmonary disease, unspecified J44 .9 Active April 18, 2018 Unspecified hearing loss, bilateral H91.93 Activ e April 18, 2018 Nicotine dependence, unspecified, uncomplicated F17.20 0 Active April 18, 2018 Vitamin D deficiency, unspecified E55.9 Active April 18, 2018 Anemia in chronic kidney disease D63.1 Active April 18, 2018 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 Active April 18, 2018 ALLERGIES AND ADVERSE REACTIONS Substance Reaction Severity Status gatifloxacin Nausea/Vomiting Active lisinopril Skin Rash Active ampicillin Hives Active atenolol Skin Rash Active pravastatin Back Pain Active hydrochlorothiazide Flushing (Red Skin) A ctive fish oil Skin Rash Active niacin Itching Active simvastatin Back Pain Active gemfibrozil Itching Active losartan Itching Active atorvastatin Back Pain Active SOCIAL HISTORY Tobacco Use Status Tobacco Type Unknown if ever consumed tobacco - Caregiver Characteristics No Information Available Characteristics of Home environment No Information Available MEDICATIONS Prescribed Medications for Dialysis Treatments Medication Instructions Dosage Route Start Date End Date Stat Clonidine HCl PRN 0.1 mg Oral January 30, 2023 January 29, 2024 Active Heparin Sodium (Porcine) 1,000 Units/mL Systemic Bolus, Every Treatment, Total treatment minutes 165 2000 units Intravenous - push February 15, 2023 February 14, 2024 Active Mircera During Dialysis, Every 2 weeks 60 mcg Intravenous - push January 30, 2023 January 29, 2024 Active Heparin Sodium (Porcine) 1,000 Units/mL Systemic Intermittent mid run, Every Treatment, Total treatment minutes 180 1000 units Intravenous - push December 10, 2022 December 09, 2023 Discontinued Heparin Sodium (Porcine) 1,000 Units/mL Systemic Bolus, Every Treatment, Total treatment minutes 180 1000 units Intravenous - push December 10, 2022 December 09, 2023 Discontinued Mircera Every 2 weeks 50 mcg Intravenous - push December 28, 2022 December 27, 2023 Discontinued Home Medications Medication Instructions Dosage Route Start Date End Date Stat us albuterol sulfate 2.5 mg/3 mL (0.083 %) Take as directed every four hours as needed 1 vial INHALATION April 21, 2018 Active amlodipine 10 mg Take by mouth twice a day 1 tablet ORAL April 21, 2018 Active Auryxia 210 mg iron Take by mouth three times a day with meals 2 tablet ORAL December 31, 2022 Active clonidine HCl 0.1 mg Take by mouth once a day 3 tablet ORAL June 14, 2021 Active furosemide 40 mg Take by mouth once a day as directed 1 tablet ORAL February 17, 2020 Active glipizide 10 mg Take by mouth once a day 1 tablet ORAL April 21, 2018 Active labetalol 300 mg Take by mouth twice a day 2 tablet ORAL January 18, 2023 Active Miralax 17 gram Take dissolved in water once a day as directed 1 packet ORAL April 21, 2018 Active moxifloxacin 0.5% Instill into affected eye every two hours 2 drop OPHTHALMIC July 24, 2022 Active mupirocin 2% Apply to affected area once a day 1 a small amount TOPICAL October 25, 2021 Active Nephro-Josefina 0.8 mg Take by mouth once a day 1 tablet ORAL February 13, 2023 Active pantoprazole 40 mg by mouth twice a day one hour before meals 1 tablet ORAL December 19, 2022 Active repaglinide 1 mg Take by mouth three times a day with meals 1 tablet ORAL December 14, 2020 Active Senna Lax 8.6 mg Take by mouth once a day 2 tablet ORAL April 21, 2018 Active sorbitol 70% Take by mouth once a day as needed 30 ml by mouth April 20, 2020 Active triamcinolone acetonide 0.1% Apply to skin twice a day as needed TOPICAL April 21, 2018 Active VITAL SIGNS Post-Treatment Vital Signs Vital Sign Value Date / Time Blood Pressure-sitting 196/81 mmHg February 112023 10:48 AM Blood Pressure-standing 170/61 mmHg February 22, 2023 10:48 AM Heart Rate 72 beats per minute February 22, 2023 10:48 AM Respiratory Rate 18 breaths per minute February 112023 10:48 AM Temperature 98.1 deg. F February 22, 2023 10:48 AM Weight Vital Sign Value Date / Time Estimated Dry Weight 42 kg February 15, 2023 11:59 PM Pre-Dialysis 42.90 kg February 22, 2023 10:48 AM Post-Dialysis 42.10 kg February 22, 2023 10:48 AM Other Other Value Date / Time Height 152.4 cm February 14, 2022 12:00 AM LAB RESULTS Hematology Result Type Result Value Relevant Referen ce Range Interpretation Date TIBC 237 mcg/dL 185 - 515 mcg/dL - August 27, 2022 UIBC (Calc) 141 mcg/dL 155 - 355 mcg/dL Low August Transferrin Sat. (Calc) 41 % 20 - 55 % - August 27, 2022 Ferritin 1573 ng/mL 10 - 291 ng/mL High August 27 023 WBC (No Diff) 8.62 1000/mcL 4.80 - 10.80 1000/mcL - August 27, 2022 Neutrophils 79.8 % 40.0 - 75.0 % High August 27 023 WBC (No Diff) 8.59 1000/mcL 4.80 - 10.80 1000/mcL - October 03, 2022 Neutrophils 78.5 % 40.0 - 75.0 % High October 03, 2022 TIBC 219 mcg/dL 185 - 515 mcg/dL - September 132022 UIBC (Calc) 129 mcg/dL 155 - 355 mcg/dL Low October 10, 2022 Transferrin Sat. (Calc) 41 % 20 - 55 % - October 10, 2022 UIBC (Calc) 91 mcg/dL 155 - 355 mcg/dL Low Octemb er 2022 TIBC 237 mcg/dL 185 - 515 mcg/dL - e r 2022 Transferrin Sat. (Calc) 62 % 20 - 55 % High October 24, 2022 WBC (No Diff) 8.47 1000/mcL 4.80 - 10.80 1000/mcL - October 24, 2022 Platelets 262 1000/mcL 130 - 400 1000/mcL - Oct ember 2022 Neutrophils 74.9 % 40.0 - 75.0 % - October 24, 2022 TIBC 201 mcg/dL 185 - 515 mcg/dL - November 28, 2022 Transferrin Sat. (Calc) 45 % 20 - 55 % - November 28, 2022 UIBC (Calc) 110 mcg/dL 155 - 355 mcg/dL Low November 28, 2022 Iron 91 mcg/dL 30 - 160 mcg/dL - November 112022 Ferritin 3454 ng/mL 10 - 291 ng/mL High November Hemoglobin x 3 33.3 % 36.0 - 48.0 % Low November 28, 2022 MCHC 33.1 g/dL 30.0 - 36.0 g/dL - November 28, 2022 RDW 16.5 % 11.5 - 14.5 % High November 28, 2022 MCH 30.3 pg 27.0 - 31.0 pg - November Basophils 0.2 % 0.0 - 1.5 % - November 28 023 Eosinophil 3.2 % 0.0 - 7.0 % - November 28 WBC (No Diff) 11.32 1000/mcL 4.80 - 10.80 1000/mcL High November 28, 2022 JUANITO 0.8 % 0.0 - 4.0 % - November 28 023 Monocytes 4.6 % 3.0 - 10.0 % - November 28, 2022 Lymphocytes 6.1 % 19.0 - 48.0 % Low November Neutrophils 85.1 % 40.0 - 75.0 % High November TIBC 199 mcg/dL 185 - 515 mcg/dL - December 12, 2022 Transferrin Sat. (Calc) 53 % 20 - 55 % - December 12 Iron 105 mcg/dL 30 - 160 mcg/dL - December 12, 2022 UIBC (Calc) 94 mcg/dL 155 - 355 mcg/dL Low Novembe r 2022 Ferritin 5007 ng/mL 10 - 291 ng/mL High December JUANITO 1.2 % 0.0 - 4.0 % - December 12, 2022 WBC (No Diff) 16.31 1000/mcL 4.80 - 10.80 1000/mcL High December 12, 2022 Lymphocytes 6.0 % 19.0 - 48.0 % Low December Monocytes 4.3 % 3.0 - 10.0 % - December 12, 2022 Eosinophil 1.1 % 0.0 - 7.0 % - December 12, 2022 Basophils 0.2 % 0.0 - 1.5 % - December 12, 2022 Neutrophils 87.1 % 40.0 - 75.0 % High December RDW 21.0 % 11.5 - 14.5 % High December Hemoglobin x 3 12.0 % 36.0 - 48.0 % Low Novembe r 2022 MCH 30.1 pg 27.0 - 31.0 pg - December MCHC 31.1 g/dL 30.0 - 36.0 g/dL - December 12, 2022 Hemoglobin x 3 22.8 % 36.0 - 48.0 % Low Novembe r 2022 Hemoglobin x 3 28.5 % 36.0 - 48.0 % Low Novembe r 2022 Hemoglobin x 3 28.5 % 36.0 - 48.0 % Low Novembe r 2022 UIBC (Calc) 177 mcg/dL 155 - 355 mcg/dL - [facility]2022 TIBC 219 mcg/dL 185 - 515 mcg/dL - January 16, 2023 Iron 42 mcg/dL 30 - 160 mcg/dL - January 16, 2023 Transferrin Sat. (Calc) 19 % 20 - 55 % Low January 16 WBC (No Diff) 12.51 1000/mcL 4.80 - 10.80 1000/mcL High January 16, 2023 RDW 19.8 % 11.5 - 14.5 % High January MCH 29.3 pg 27.0 - 31.0 pg - January MCHC 31.0 g/dL 30.0 - 36.0 g/dL - January 16, 2023 Hemoglobin x 3 29.4 % 36.0 - 48.0 % Low Decembe r 2022 JUANITO 0.8 % 0.0 - 4.0 % - January 16, 2023 Lymphocytes 5.4 % 19.0 - 48.0 % Low January Monocytes 3.1 % 3.0 - 10.0 % - January 16, 2023 Neutrophils 86.1 % 40.0 - 75.0 % High January Eosinophil 4.2 % 0.0 - 7.0 % - January 16, 2023 Basophils 0.4 % 0.0 - 1.5 % - January 16, 2023 Hemoglobin x 3 29.4 % 36.0 - 48.0 % Low [facility] HGB 9.8 g/dL 12.0 - 16.0 g/dL Low January 23, 2023 Hemoglobin x 3 30.9 % 36.0 - 48.0 % [facility] HGB 10.3 g/dL 12.0 - 16.0 g/dL Low January 30, 2023 Hemoglobin x 3 31.5 % 36.0 - 48.0 % Low [facility] HGB 10.5 g/dL 12.0 - 16.0 g/dL Low February 06, 2023 UIBC (Calc) 144 mcg/dL 155 - 355 mcg/dL Low February 13, 2023 TIBC 216 mcg/dL 185 - 515 mcg/dL - February 13, 2023 Transferrin Sat. (Calc) 33 % 20 - 55 % - February 13, 2023 Iron 72 mcg/dL 30 - 160 mcg/dL - February MCHC 31.0 g/dL 30.0 - 36.0 g/dL - February 13, 2023 RDW 20.1 % 11.5 - 14.5 % High February 13, 2023 HGB 10.6 g/dL 12.0 - 16.0 g/dL Low February 13, 2023 Hemoglobin x 3 31.8 % 36.0 - 48.0 % Low February 13, 2023 Neutrophils 83.5 % 40.0 - 75.0 % High February Lymphocytes 6.3 % 19.0 - 48.0 % Low February Monocytes 3.2 % 3.0 - 10.0 % - February 13, 2023 Eosinophil 6.2 % 0.0 - 7.0 % - February 13, 024 Basophils 0.1 % 0.0 - 1.5 % - February 13 024 JUANITO 0.7 % 0.0 - 4.0 % - February 13 024 WBC (No Diff) 11.03 1000/mcL 4.80 - 10.80 1000/mcL High February 13, 2023 RBC 3.72 mill/mcL 4.20 - 5.40 mill/mcL Low February 13, 2023 HCT 34.3 % 37.0 - 47.0 % Low February 13, 2023 MCH 28.7 pg 27.0 - 31.0 pg - February Metabolic/Renal Result Type Result Value Relevant Referen ce Range Interpretation Date Bicarbonate 24 mEq/L 20 - 31 mEq/L - November Sodium 126 mEq/L 136 - 145 mEq/L Low November 112022 Potassium 5.6 mEq/L 3.5 - 5.1 mEq/L High November 112022 Creatinine, Serum 4.59 mg/dL 0.60 - 1.30 mg/dL High November 28, 2022 BUN/Creat Ratio 15.7 10.0 - 20.0 - November 28, 2022 BUN 72 mg/dL 6 - 19 mg/dL High November 28, 2022 Chloride 92 mEq/L 96 - 108 mEq/L Low November Bicarbonate 28 mEq/L 20 - 31 mEq/L - December Potassium 3.2 mEq/L 3.5 - 5.1 mEq/L Low December 12, 2022 Chloride 101 mEq/L 96 - 108 mEq/L - December BUN/Creat Ratio 16.7 10.0 - 20.0 - December 12, 2022 Sodium 136 mEq/L 136 - 145 mEq/L - December 12, 2022 BUN 62 mg/dL 6 - 19 mg/dL High December 12, 2022 Creatinine, Serum 3.72 mg/dL 0.60 - 1.30 mg/dL High December 12, 2022 Vitamin B12 712 pg/mL 211 - 911 pg/mL - December 12, 2022 Potassium 4.4 mEq/L 3.5 - 5.1 mEq/L - December 26, 2022 BUN 49 mg/dL 6 - 19 mg/dL High January 07, 2023 BUN, Post 8 mg/dL 6 - 19 mg/dL - January 07, 2023 URR, Calc 84 % 65 - 80 % High January 07, 023 BUN/Creat Ratio 7.7 10.0 - 20.0 Low January 16, 2023 Sodium 135 mEq/L 136 - 145 mEq/L Low January 16, 2023 BUN 29 mg/dL 6 - 19 mg/dL High January 16, 2023 Creatinine, Serum 3.76 mg/dL 0.60 - 1.30 mg/dL High January 16, 2023 Bicarbonate 28 mEq/L 20 - 31 mEq/L - January Potassium 4.9 mEq/L 3.5 - 5.1 mEq/L - January 16, 2023 Chloride 100 mEq/L 96 - 108 mEq/L - January BUN, Post 8 mg/dL 6 - 19 mg/dL - January 18, 2023 URR, Calc 80 % 65 - 80 % - January 18, 023 BUN 41 mg/dL 6 - 19 mg/dL High January 18, 2023 Sodium 134 mEq/L 136 - 145 mEq/L Low February Potassium 5.0 mEq/L 3.5 - 5.1 mEq/L - February Chloride 99 mEq/L 96 - 108 mEq/L - February Bicarbonate 30 mEq/L 20 - 31 mEq/L - February BUN, Post 7 mg/dL 6 - 19 mg/dL - February 13, 2023 BUN 46 mg/dL 6 - 19 mg/dL High February 13, 2023 Creatinine, Serum 4.78 mg/dL 0.60 - 1.30 mg/dL High February 13, 2023 BUN/Creat Ratio 9.6 10.0 - 20.0 Low February 13, 2023 URR, Calc 85 % 65 - 80 % High February 13 HD Adequacy Result Type Result Value Relevant Referen ce Range Interpretation Date spKt/V ([place]augirdas II) 2.02 No Reference Range Provided - January 07, 2023 eKt/V ([place]) 1.70 No Reference Range Provided - January 07, 2023 spKt/V (Daugirdas II) 1.80 No Reference Range Provided - January 18, 2023 eKt/V ([place]) 1.47 No Reference Range Provided - January 18, 2023 eKt/V ([place]) 1.84 No Reference Range Provided - February 13, 2023 spKt/V (Daugirdas II) 2.22 No Reference Range Provided - February 13, 2023 Bone/Mineral Result Type Result Value Relevant Referen ce Range Interpretation Date Magnesium 2.2 mg/dL 1.6 - 2.6 mg/dL - May 16, 2022 Magnesium 2.4 mg/dL 1.6 - 2.6 mg/dL - August 27, 2022 PTH-Intact, Plasma 305 pg/mL 16 - 80 pg/mL High Aug Magnesium 2.0 mg/dL 1.6 - 2.6 mg/dL - November 112022 Corrected Ca x P Product 49 0 - - November 28, 2022 Alkaline Phosphatase 93 U/L 35 - 104 U/L - Oc 2022 Phosphorus 5.3 mg/dL 2.6 - 4.5 mg/dL High November 112022 Ca x P Product 46 0 - 54 - November Calcium, Total 8.6 mg/dL 8.7 - 10.4 mg/dL Low 2022 PTH-Intact, Plasma 276 pg/mL 16 - 80 pg/mL High Nov ivon2022 Phosphorus 1.8 mg/dL 2.6 - 4.5 mg/dL Low December 12, 2022 Ca x P Product 15 0 - 54 - December Calcium, Total 8.1 mg/dL 8.7 - 10.4 mg/dL Low mb2022 PTH-Intact, Plasma 376 pg/mL 16 - 80 pg/mL High Dec emb2022 Corrected Ca x P Product 16 0 - 54 - December 12 Magnesium 2.0 mg/dL 1.6 - 2.6 mg/dL - December 12, 2022 Alkaline Phosphatase 60 U/L 35 - 104 U/L - No [id number] Vitamin D 25 Hydroxy 21.3 ng/mL 30.0 - 100.0 ng/mL Low December 12, 2022 Phosphorus 6.4 mg/dL 2.6 - 4.5 mg/dL High December 26, 2022 Calcium, Total 8.9 mg/dL 8.7 - 10.4 mg/dL - 2022 Phosphorus 3.1 mg/dL 2.6 - 4.5 mg/dL - January 16, 2023 Ca x P Product 28 0 - January Corrected Ca x P Product 29 0 - - January 16 Calcium, Total 8.5 mg/dL 8.7 - 10.4 mg/dL Low 2023 Phosphorus 4.3 mg/dL 2.6 - 4.5 mg/dL - February Ca x P Product 37 0 - February Corrected Ca x P Product 39 0 - February 13, 2023 Liver/Nutrition Result Type Result Value Relevant Reference Range Interpre tation Albumin (BCG) 3.3 g/dL 3.5 - 5.2 g/dL Low November 28, 2022 Albumin (BCG) 2.8 g/dL 3.5 - 5.2 g/dL Low 2022 Albumin (BCG) 3.4 g/dL 3.5 - 5.2 g/dL Low 2022 Albumin (BCG) 3.3 g/dL 3.5 - 5.2 g/dL Low February 13, 2023 Immunochemistry Result Type Result Value Relevant Reference Range Interpre tation HCV s/co ratio 0.03 0.00 - 0.79 - December 12, 2022 Trace Elements Result Type Result Value Relevant Reference Range Interpre tation Aluminum 7 mcg/L 0 - 10 mcg/L - December 12, 2022 Peritoneal Dialysis Testing Result Type Result Value Relevant Referen ce Range Interpretation Date Total Urea Nitrogen, Urine 2.5 g/24 hr 12.0 - 20.0 g/24 hr Low April 11, 2022 Urea Clear, Urine Norm 3.9 mL/min 64.0 - 99.0 mL/min Low April 11 Urea Clearance, Urine 3.0 mL/min 64.0 - 99.0 mL/min Low April 11 Urea Clear, Urine Norm Wkly 31 L/wk No Reference Range Provided - April 11, 2022 Creatinine, Urine 53.4 mg/dL No Reference R blanca Provided - April 11, 2022 Total Creatinine, Urine 0.5 g/24 hr 0.5 - 1.6 g/24 hr - April 11, 2022 Creat Clear, Urine Norm Wkly 85 L/wk No Reference Range Provided - April 11, 2022 Creat Clear, Urine Weekly 66.5 L/wk No Reference Range Provided - April 11, 2022 Wkly Creat Cl (Resid + Dial) 97 L/wk No Reference Range Provided - April 11, 2022 Urea Nitrogen, PDF 24 Hr 1289.7 mg/24 hr No Reference Range Provided - April 11, 2022 PD Kt/V 24 Hr Dialysate Urea 39 mg/dL No Reference Range Provided - April 11, 2022 Urea Clearance, PD Fluid 1.5 mL/min No Reference Range Provided - April 11, 2022 Urea Clearance, PDF Norm 2.0 mL/min No Reference Range Provided - April 11, 2022 Urea Clear, Total Norm Wkly 46 L/wk No Reference Range Provided - April 11, 2022 Urea Clear, PDF Norm Wkly 15 L/wk No Reference Range Provided - April 11, 2022 Creatinine, PDF 24 Hr 72.8 mg/24 hr No Reference Range Provided - April 11, 2022 Creatinine, PD Fluid, 24 Hr Uncorrected 2.4 mg/dL No Reference Range Provided - April 11, 2022 Creatinine, PDF Timed Cor 2.2 mg/dL No Reference Range Provided - April 11, 2022 Glucose, PDF Timed 1098 mg/dL No Reference Range Provided - April 11, 2022 Creatinine Clear, PDF 1.0 mL/min No Reference Range Provided - April 11, 2022 Creatinine Clear, PDF Norm 1.2 mL/min No Reference Range Provided - April 11, 2022 Creat Clear, PDF Weekly 10 L/wk No Reference Range Provided - April 11, 2022 Kt/V, Residual 1.24 No Reference Ran ge Provided - April 11, 2022 PNA 44 g/day No Reference Ran ge Provided - April 11, 2022 Total Urea Nitrogen, Urine 3.5 g/24 hr 12.0 - 20.0 g/24 hr Low August 08, 2022 Urea Clear, Urine Norm 4.9 mL/min 64.0 - 99.0 mL/min Low August 08, 2022 Urea Clearance, Urine 3.9 mL/min 64.0 - 99.0 mL/min Low August 08, 2022 Urea Clear, Urine Norm Wkly 39 L/wk No Reference Range Provided - August 08, 2022 Creatinine, Urine 47.0 mg/dL No Reference R blanca Provided - August 08, 2022 Total Creatinine, Urine 0.6 g/24 hr 0.5 - 1.6 g/24 hr - August 08, 2022 Creat Clear, Urine Norm Wkly 102 L/wk No Reference Range Provided - August 08, 2022 Creat Clear, Urine Weekly 79.6 L/wk No Reference Range Provided - August 08, 2022 Wkly Creat Cl (Resid + Dial) 114 L/wk No Reference Range Provided - August 08, 2022 Urea Nitrogen, PDF 24 Hr 1529.3 mg/24 hr No Reference Range Provided - August 08, 2022 PD Kt/V 24 Hr Dialysate Urea 49 mg/dL No Reference Range Provided - August 08, 2022 Urea Clearance, PD Fluid 1.7 mL/min No Reference Range Provided - August 08, 2022 Urea Clearance, PDF Norm 2.1 mL/min No Reference Range Provided - August 08, 2022 Urea Clear, Total Norm Wkly 56 L/wk No Reference Range Provided - August 08, 2022 Urea Clear, PDF Norm Wkly 17 L/wk No Reference Range Provided - August 08, 2022 Creatinine, PDF 24 Hr 71.8 mg/24 hr No Reference Range Provided - August 08, 2022 Creatinine, PD Fluid, 24 Hr Uncorrected 2.5 mg/dL No Reference Range Provided - August 08, 2022 Creatinine, PDF Timed Cor 2.3 mg/dL No Reference Range Provided - August 08, 2022 Glucose, PDF Timed 1090 mg/dL No Reference Range Provided - August 08, 2022 Creatinine Clear, PDF 0.9 mL/min No Reference Range Provided - August 08, 2022 Creatinine Clear, PDF Norm 1.2 mL/min No Reference Range Provided - August 08, 2022 Creat Clear, PDF Weekly 9 L/wk No Reference Range Provided - August 08, 2022 Kt/V, Residual 1.55 No Reference Ran ge Provided - August 08, 2022 PNA 53 g/day No Reference Ran ge Provided - August 08, 2022 Creatinine Clearance - Measured PD 111 L/wk No Reference Range Provided - November 07, 2022 Total Urea Nitrogen, Urine 5.5 g/24 hr 12.0 - 20.0 g/24 hr Low November 07, 2022 Urea Clear, Urine Norm 5.1 mL/min 64.0 - 99.0 mL/min Low November 07, 2022 Urea Clearance, Urine 4.0 mL/min 64.0 - 99.0 mL/min Low November 07, 2022 Urea Clear, Urine Norm Wkly 40 L/wk No Reference Range Provided - November 07, 2022 Creatinine, Urine 52.9 mg/dL No Reference R blanca Provided - November 07, 2022 Total Creatinine, Urine 0.7 g/24 hr 0.5 - 1.6 g/24 hr - November 07, 2022 Creat Clear, Urine Norm Wkly 128 L/wk No Reference Range Provided - November 07, 2022 Creat Clear, Urine Weekly 100.8 L/wk No Reference Range Provided - November 07, 2022 Wkly Creat Cl (Resid + Dial) 140 L/wk No Reference Range Provided - November 07, 2022 Urea Nitrogen, PDF 24 Hr 2242.1 mg/24 hr No Reference Range Provided - November 07, 2022 PD Kt/V 24 Hr Dialysate Urea 72 mg/dL No Reference Range Provided - November 07, 2022 Urea Clearance, PD Fluid 1.6 mL/min No Reference Range Provided - November 07, 2022 Urea Clearance, PDF Norm 2.1 mL/min No Reference Range Provided - November 07, 2022 Urea Clear, Total Norm Wkly 56 L/wk No Reference Range Provided - November 07, 2022 Urea Clear, PDF Norm Wkly 16 L/wk No Reference Range Provided - November 07, 2022 Creatinine, PDF 24 Hr 65.4 mg/24 hr No Reference Range Provided - November 07, 2022 Creatinine, PD Fluid, 24 Hr Uncorrected 2.3 mg/dL No Reference Range Provided - November 07, 2022 Creatinine, PDF Timed Cor 2.1 mg/dL No Reference Range Provided - November 07, 2022 Glucose, PDF Timed 1186 mg/dL No Reference Range Provided - November 07, 2022 Creatinine Clear, PDF 1.0 mL/min No Reference Range Provided - November 07, 2022 Creatinine Clear, PDF Norm 1.2 mL/min No Reference Range Provided - November 07, 2022 Creat Clear, PDF Weekly 10 L/wk No Reference Range Provided - November 07, 2022 Kt/V, Residual 1.59 No Reference Ran ge Provided - November 07, 2022 PNA 74 g/day No Reference Ran ge Provided - November 07, 2022 Infectious Diseases Result Type Result Value Relevant Referen ce Range Interpretation Date HCV Ab (anti-HCV) Nonreactive No Reference R blanca Provided - December 12, 2022 Hep B Surface Ab (anti-HBs) 11 mIU/mL No Reference Range Provided - December 12, 2022 DIALYSIS PRESCRIPTION Conventional Hemodialysis Data Element Value Order Date/Time February 15, 2023 Frequency 3X Week Treatment Days MonWedFri Dialyzer [id number] Optiflux Treatment Time (Total Minutes) 165 min Blood Flow Rate (mL/min) 450 mL/min Dialysate Flow Rate Autoflow 1.5 Estimated Dry Weight 42 kg Dialysate Concentrate 2.0 K, 2.5 Ca, 1.0 Mg, 100 Dextrose (G2251) Sodium (mEq/L) 137 mEq/L Bicarb Machine Setting (mEq/L) 29 mEq/L Dialysis Access Hemodialysis-AV Fist doc-Standard, Left Upper Arm, Brachial Artery to Cephalic Vein Access Placed on March 31, 2018 Arterial Needle Size 15g1 Venous Needle Size 15g1 IMMUNIZATIONS Vaccine Date Dose Route Status Moderna COVID-19 Vaccine, Do se 2 of 2 April 04, 2020 0.5 mL Intramuscular Completed Moderna COVID-19 Vaccine, Do se 1 of 2 March 11, 2020 0.5 mL Intramuscular Completed TRANSPLANT WAITLIST STATUS No Information on Transplant Waitlist Status ADVANCE DIRECTIVES Directive Description Ordered By Effective Date Resuscitation status Full Code Gabriel Mena Feb 20, 2023 DIALYSIS TREATMENTS Conventional Hemodialysis Date Pre-Treatment Vitals Post-Treatment Jocelyn ls Duration (hr) BFR (mL/min) Dialysate Dialyzer Dialysis Access Meds Admin 2023 Weight 42.70 kg Weight 41.80 kg 02:49:00 420 2.0 K, 2.5 Ca, 1.0 Mg, 100 Dextrose (G2251) 160nre Optifl ux Blood Pressure-sitting 180/63 mmHg Blood Pressure-sit ting 194/73 mmHg Blood Pressure-standing 172/67 mmHg Blood Pressure-st anding 187/78 mmHg Heart Rate 59 beats per minute Heart Rate 76 beats per minute Respiratory Rate 15 breaths per minute Respiratory Rate 16 breaths per minute Temperature 97.3 deg. F Temperature 98.2 deg. F February 18, 2023 Weight 42.50 kg Weight 41.60 kg 02:46:00 400 2.0 K, 2.5 Ca, 1.0 Mg, 100 Dextrose (G2251) 160nre Optiflux Hemodialysis-AV Fistula-Standard, Left Upper Arm, Brachial Artery to Cephalic Vein Access Placed on March 31, 2018 Heparin Sodium (Porcine) 1,000 Units/mL Systemic; 2000units,Intravenous - push Blood Pressure-sitting 154/60 mmHg Blood Pressure-sit ting 191/74 mmHg Blood Pressure-standing 152/61 mmHg Blood Pressure-st anding 160/64 mmHg Heart Rate 53 beats per minute Heart Rate 71 beats per minute Respiratory Rate 18 breaths per minute Respiratory Rate 18 breaths per minute Temperature 98.0 deg. F Temperature 98.2 deg. F February 22, 2023 Weight 42.90 kg Weight 42.10 kg 02:45:00 450 2.0 K, 2.5 Ca, 1.0 Mg, 100 Dextrose (G2251) 160nre Optiflux Hemodialysis-AV Fistula-Standard, Left Upper Arm, Brachial Artery to Cephalic Vein Access Placed on March 31, 2018 - Blood Pressure-sitting 176/76 mmHg Blood Pressure-sit ting 196/81 mmHg Blood Pressure-standing 172/70 mmHg Blood Pressure-st anding 170/61 mmHg Heart Rate 64 beats per minute Heart Rate 72 beats per minute Respiratory Rate 18 breaths per minute Respiratory Rate 18 breaths per minute Temperature 97.5 deg. F Temperature 98.1 deg. F
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
--- OUTSIDE RECORDS SUMMARY | 2023-02-22 16:10 | XMS_ITS | Clinical Summary ---
Author Name Unknown Organization [facility] Address [address] [place] [id number] Care Team Providers Care Lacquer Polisher Name Role Phone Tyrell Schneider Primary Care Provider [phone] Allergies Active Allergy Reactions Criticality Noted Date Comments Ampicillin Hives,Rash Low 05/13/2006 hives Atenolol Hives,Rash Low 03/15/2005 Atorvastatin Hives,Muscle Pain (Myalgia),Other (See Comments) 12/07/2003 Other Reaction(s): Back Pain bumps Blood Transfusion Related (Informational Only) Other (See Comments) High 12/14/2022 Patient has a history of a clinically significant antibody against RBC antigens. A delay in compatible RBCs may occur. Cat Hair Extract Hives 04/20/2021 Cats Shortness Of Breath High 04/06/2004 Dog Epithelium Allergy Skin Test Itching 04/15/2018 Sneezing Sneezing Dulaglutide Nausea and Vomiting 04/13/2019 Nausea and vomiting on 1.5mg (questionable!!), ok on 0.75mg. Fish Oil Rash,Other (See Comments) Low 04/20/2021 Gatifloxacin Nausea,Nausea and Vomiting 04/20/2021 Gemfibrozil Itching,Other (See Comments) 02/20/2010 itching Hydrochlorothiazide Other (See Comments),Itching Low 10/09/2004 bumps pt had significant pruritic rash pt had significant pruritic rash Lisinopril Other (See Comments),Rash Low 03/15/2005 bumps Lisinopril-Hydrochlorothiaz dagoberto Rash Low 11/24/2022 Losartan Itching 01/09/2010 itching Niacin Rash,Itching Low 05/13/2006 itch [place] Rash Low 05/16/2010 Oxycodone Nausea and Vomiting 05/25/2015 Pioglitazone Rash Low 10/11/2020 Itchy rash Pravastatin Muscle Pain (Myalgia),Other (See Comments) 01/22/2012 Other Reaction(s): Back Pain Simvastatin Other (See Comments) 04/04/2016 Other Reaction(s): Back Pain Leg pain ??Tolerating every other day. Tetracycline Other (See Comments) 05/09/2015 bumps Medications Medication Sig Dispensed Refills Start Date End Date Status aspirin 81 MG EC tablet Take 81 mg by mouth every evening 0 Active albuterol (PROVENTIL) (2.5 MG/3ML) 0.083% neb solution Take 2.5 mg by nebulization every 4 hours as needed for shortness of breath 0 09/10/2022 Active amLODIPine (NORVASC) 10 MG tablet Take 10 mg by mouth 2 times daily 0 11/14/2022 Active cloNIDine (CATAPRES) 0.1 MG tablet Take 0.2 mg by mouth every morning 0 06/14/2021 Active erythromycin (ROMYCIN) 5 MG/GM ophthalmic ointment Place Into the left eye 4 times daily 0 09/25/2022 Active neomycin-polymyxin -dexAMETHasone (MAXITROL) 3.5-74538-5.[address] 0.25 inches Into the left eye 4 times daily 0 09/24/2022 Active oxyCODONE (ROXICODONE) 5 MG tablet Take 10 mg by mouth at bedtime 0 04/17/2021 Active repaglinide (PRANDIN) 1 MG tablet Take 1 tablet by mouth 3 times daily (before meals) 0 12/13/2020 Active senna (SENOKOT) 8.6 MG tablet Take 1 tablet by mouth every 3 days 0 10/13/2022 Active sorbitol 70 % SOLN solution Take 30 mLs by mouth every 3 days 0 01/09/2022 Active triamcinolone (KENALOG) 0.1 % external cream Apply topically daily as needed for irritation 0 01/24/2021 Active glipiZIDE (GLUCOTROL XL) 10 MG 24 hr tablet Take 20 mg by mouth every morning 0 11/14/2022 Active ipratropium - albuterol 0.5 mg/2.5 mg/3 mL (DUONEB) 0.5-2.5 (3) MG/3ML neb solution Inhale 3 mLs into the lungs every 6 hours as needed for shortness of breath 0 12/13/2020 Active labetalol (NORMODYNE) 300 MG tablet Take 600 mg by mouth 2 times daily 0 03/01/2022 Active polyethylene glycol (MIRALAX) 17 g packet Take 1 packet by mouth every 3 days 0 Active cetirizine (ZYRTEC) 10 MG tablet Take 10 mg by mouth every evening 0 Active furosemide (LASIX) 40 MG tablet Take 40 mg by mouth daily 0 Active carboxymethylcellu lose PF (REFRESH PLUS) 0.5 % ophthalmic solution Place 1 drop into both eyes 2 times daily 0 Active pantoprazole (PROTONIX) 40 MG EC tabletIndications: Anemia, unspecified type Take 1 tablet (40 mg) by mouth 2 times daily (before meals) 60 tablet 0 12/17/2022 Active umeclidinium (INCRUSE ELLIPTA) 62.5 MCG/ACT inhalerIndications :Chronic obstructive pulmonary disease, unspecified COPD type (H) Inhale 1 puff into the lungs daily 7 each 0 12/18/2022 Active nicotine (NICODERM CQ) 21 MG/24HR [address] 1 patch onto the skin every 24 hours 0 Active multivitamin RENAL (RENAVITE RX/NEPHROVITE) 1 tablet tablet Take 1 tablet by mouth daily 0 Active cloNIDine (CATAPRES) 0.1 MG tablet Take 0.3 mg by mouth every evening 0 Active senna-docusate (SENOKOT-S/PERICOL MICHAEL) 8.6-50 MG tabletIndications: Constipation, unspecified constipation type Take 1 tablet by mouth daily as needed for constipation 0 02/21/2023 Active nicotine (NICODERM CQ) 7 MG/24HR [address] 1 patch onto the skin every 24 hours 0 11/24/2021 4 Discontinue d(Med Rec(No AVS / No eCancel)) gabapentin (NEURONTIN) 300 MG capsule Take 300 mg by mouth at bedtime 0 09/07/2022 4 Discontinue d(Med Rec(No AVS / No eCancel)) senna-docusate (SENOKOT-S/PERICOL MICHAEL) 8.6-50 MG tabletIndications: Constipation, unspecified constipation type Take 1 tablet by mouth 2 times daily 60 tablet 0 12/17/2022 4 Discontinue d(Med Rec(No AVS / No eCancel)) furosemide (LASIX) 80 MG tabletIndications: ESRD (end stage renal disease) on dialysis (H) Take 1 tablet (80 mg) by mouth 2 times daily Take 1 tablet twice a day on Saturday, Saturday, , Saturday 30 tablet 0 12/17/2022 4 Discontinue d(Stop at Discharge) Active Problems Problem Noted Date Diagnosed Date Acute pancreatitis, unspecif ied complication status, unspecified pancreatitis type 02/19/2023 Other emphysema 12/18/2022 Anemia 12/13/2022 ESRD (end stage renal disease) on dialysis 12/13 Acute on chronic anemia 12/13/2022 SOB (shortness of breath) 11/29/2022 COVID 11/24/2022 Encounters Date Type Department Care Team Description 02/19/2023 6:25 PM PEDIATRIC ORTHODONTIST - 02/21/2023 5:11 PM PEDIATRIC ORTHODONTIST Emergency [facility] Observation Dept [address] [place] [address] Jose F Lozano MD Ricklefs, Kendall D, Arsenio Spaulding MD Richardson, Elizabeth, MD Matthews, Jeremiah R, MD Constipation, unspecified constipation type (Primary Dx); Acute pancreatitis, unspecified complication status, unspecified pancreatitis type Discharge Disposition: Home or Self Care 12/14/2022 12:03 PM CDT Anesthesia Event [facility] PeriOp Services [address] [place] [address] Karthik Gonzalez MD Kelly, Megan M, MD 12/14/2022 11:44 AM CDT - 12/14/2022 12:44 PM CDT Surgery [facility] [address] [place] [address] Adama Ramirez MD ESOPHAGOGASTRODUODENOSCOPY 12/12/2022 9:31 PM CDT - 12/18/2022 2:34 PM PEDIATRIC ORTHODONTIST Hospital Encounter [facility] [address] [place] [address] Jason Tapia MD Kriz, John Anthony, DO Anemia, unspecified type (Primary Dx); Acute on chronic anemia; ESRD (end stage renal disease) on dialysis (H); Chronic obstructive pulmonary disease, unspecified COPD type (H); Constipation, unspecified constipation type; SOB (shortness of breath); COVID Discharge Disposition: Home or Self Care 12/12/2022 Travel 12/04/2022 7:44 AM CDT Anesthesia Event [facility] [address] [place] [address] Arsenio Prasad MD 12/04/2022 7:20 AM CDT - 12/04/2022 8:20 AM CDT Surgery [facility] [address] [place] [address] Rajan Hernandez MD REMOVAL PERITONEAL DIALYSIS CATHETER 11/28/2022 11:24 PM CDT - 12/06/2022 2:42 PM CDT Hospital Encounter [facility] [address] [place] [address] Stormy Ontiveros MD, MD Abdominal infection (H) (Primary Dx) Discharge Disposition: Home or Self Care 11/28/2022 [facility] [address] [place] [phone] Jasmyn Bradley PA-C 11/24/2022 9:10 PM CDT - 11/26/2022 4:50 PM CDT Hospital Encounter [address] [phone] Arsenio Mc MD Ponnala, Shruthi, MD Discharge Disposition: Home or Self Care from Last 3 Months Social History Tobacco Use Types Packs/Day Years Used Date Smoking Tobacco: Never Assessed Adolescent Education Answer Date Record ed Getting School Help Needed Not on file 11/24 Sex and Gender Information Value Date Recorded Sex Assigned at Not on file Gender Identity Female 11/24/2022 4:30 PM CDT Sexual Orientation Not on file Last Filed Vital Signs Vital Sign Reading Time Taken Comments Blood Pressure 166/77 02/21/2023 3:58 PM PEDIATRIC ORTHODONTIST Pulse 64 02/21/2023 3:58 PM PEDIATRIC ORTHODONTIST Temperature 36.9 ??C (98.4 ??F) 02/21/2023 3:58 PM CS T Respiratory Rate 18 02/21/2023 3:58 PM PEDIATRIC ORTHODONTIST Oxygen Saturation 99% 02/21/2023 3:58 PM PEDIATRIC ORTHODONTIST Inhaled Oxygen Concentration - - Weight 40.8 kg (90 lb) 02/20/2023 8:47 PM PEDIATRIC ORTHODONTIST Height 154.9 cm (5' 1) 12/13/2022 3:15 AM CDT Body Mass Index 17.01 12/13/2022 3:15 AM CDT Plan of Treatment Health Maintenance Due Date Last Done Comments ADVANCE CARE PLANNING 1947 ANNUAL REVIEW OF HM ORDERS 1947 COPD ACTION PLAN 1947 CT COLONOGRAPHY 1947 DEXA 1947 FLEX SIG 1947 LIPID 1947 MICROALBUMIN 1947 PARATHYROID 1947 SPIROMETRY 1947 sDNA (Cologuard) 1947 COLONOSCOPY 08/30/1957 HEPATITIS C SCREENING 08/30/1965 HEPATITIS B IMMUNIZATION (3 of 5 - Risk Dialysis 4-dose series) 11/01/2000 10/04/2000, 04/11/2000 RSV VACCINE ( & 60+) (1 - 1-dose 60+ series) 2007 ZOSTER IMMUNIZATION (1 of 2) 07/10/2012 05/15/2012 FALL RISK ASSESSMENT 08/30/2012 MEDICARE ANNUAL WELLNESS VISIT 08/30/2012 DTAP/TDAP/TD IMMUNIZATION (2 - Td or Tdap) 05/30/2020 05/30/2010, 02/12/2000 MAMMO SCREENING 01/01/2021 01/01/2019 PHQ-2 (once per calendar year) 2023 COVID-19 Vaccine (24 season) 2023 12/25/2022, 10/25/2021, 05/17/2021, Additional history exists BMP 05/23/2023 02/21/2023, 02/11, 02/19/2023, Additional history exists HEMOGLOBIN 08/22/2023 02/21/2023, 02/11, 02/19/2023, Additional history exists COLORECTAL CANCER SCREENING 12/13/2023 FIT 12/13/2023 12/12/2022 Pneumococcal Vaccine: 65+ Years Completed 04/10/2022, 06/22/2014, 12/31/2012, Additional history exists INFLUENZA VACCINE Completed 10/19/2022, , 10/28/2020, Additional history exists PHOSPHORUS Completed 12/18/2022, 07/2022, 12/16/2022, Additional history exists URINALYSIS Completed 02/19/2023 ALK PHOS Completed 02/20/2023, 10/2023, 12/12/2022, Additional history exists HPV IMMUNIZATION Aged Out No longer e ligible based on patient's age to complete this topic IPV IMMUNIZATION Aged Out No longer e ligible based on patient's age to complete this topic MENINGITIS IMMUNIZATION Aged Out No l onger eligible based on patient's age to complete this topic RSV MONOCLONAL ANTIBODY Aged Out No l onger eligible based on patient's age to complete this topic Procedures Procedure Name Priority Date/Time Associated Diagnosis Comments GLUCOSE BY METER Routine 02/21/2023 3:54 PM PEDIATRIC ORTHODONTIST GLUCOSE BY METER Routine 02/21/2023 12:02 PM PEDIATRIC ORTHODONTIST CBC WITH PLATELETS Routine 02/21/2023 8:16 AM PEDIATRIC ORTHODONTIST BASIC METABOLIC PANEL Routine 02/21/2023 8:16 AM PEDIATRIC ORTHODONTIST GLUCOSE BY METER Routine 02/21/2023 8:02 AM PEDIATRIC ORTHODONTIST GLUCOSE BY METER Routine 02/21/2023 4:31 AM PEDIATRIC ORTHODONTIST GLUCOSE BY METER Routine 02/21/2023 1:08 AM PEDIATRIC ORTHODONTIST GLUCOSE BY METER Routine 02/20/2023 8:54 PM PEDIATRIC ORTHODONTIST HEPATITIS B SURFACE ANTIBODY STAT 11/2023 3:47 PM PEDIATRIC ORTHODONTIST GLUCOSE BY METER STAT 02/20/2023 2:50 PM PEDIATRIC ORTHODONTIST GLUCOSE BY METER STAT 02/20/2023 12:03 PM PEDIATRIC ORTHODONTIST GLUCOSE BY METER STAT 02/20/2023 9:59 AM PEDIATRIC ORTHODONTIST HEPATITIS B SURFACE ANTIGEN Add-On 02/11 8:52 AM PEDIATRIC ORTHODONTIST CBC WITH PLATELETS STAT 02/20/2023 8:52 AM PEDIATRIC ORTHODONTIST LIPASE STAT 02/20/2023 8:52 AM PEDIATRIC ORTHODONTIST COMPREHENSIVE METABOLIC PANEL STAT 8:52 AM PEDIATRIC ORTHODONTIST GLUCOSE BY METER STAT 02/20/2023 4:20 AM PEDIATRIC ORTHODONTIST GLUCOSE BY METER STAT 02/20/2023 2:33 AM PEDIATRIC ORTHODONTIST GLUCOSE BY METER STAT 02/20/2023 2:03 AM PEDIATRIC ORTHODONTIST GLUCOSE BY METER STAT 02/19/2023 11:[address] ABDOMEN PELVIS W/O CONTRAST STAT 0 02/19/2023 9:30 PM PEDIATRIC ORTHODONTIST ROUTINE UA WITH MICROSCOPIC REFLEX TO CULTURE STAT 02/19/2023 7:19 PM PEDIATRIC ORTHODONTIST CBC WITH PLATELETS & DIFFERENTIAL STAT 02/19/2023 7:18 PM PEDIATRIC ORTHODONTIST TRIGLYCERIDES Add-On 02/19/2023 7:18 PM PEDIATRIC ORTHODONTIST EXTRA RED TOP TUBE STAT 02/19/2023 7:18 PM PEDIATRIC ORTHODONTIST EXTRA BLUE TOP TUBE STAT 02/19/2023 7:18 PM PEDIATRIC ORTHODONTIST CBC WITH PLATELETS AND DIFFERENTIAL STAT 02/19/2023 7:18 PM PEDIATRIC ORTHODONTIST EXTRA TUBE STAT 02/19/2023 7:18 PM PEDIATRIC ORTHODONTIST LIPASE STAT 02/19/2023 7:18 PM PEDIATRIC ORTHODONTIST COMPREHENSIVE METABOLIC PANEL STAT 7:18 PM PEDIATRIC ORTHODONTIST GLUCOSE BY METER Routine 12/18/2022 12:47 PM PEDIATRIC ORTHODONTIST RENAL PANEL Routine 12/18/2022 8:45 AM PEDIATRIC ORTHODONTIST GLUCOSE BY METER Routine 12/18/2022 8:08 AM PEDIATRIC ORTHODONTIST GLUCOSE BY METER Routine 12/18/2022 1:44 AM PEDIATRIC ORTHODONTIST GLUCOSE BY METER Routine 12/17/2022 10:16 PM PEDIATRIC ORTHODONTIST GLUCOSE BY METER Routine 12/17/2022 10:10 PM PEDIATRIC ORTHODONTIST GLUCOSE BY METER Routine 12/17/2022 10:07 PM PEDIATRIC ORTHODONTIST HELICOBACTER PYLORI ANTIGEN STOOL Routine 12/17/2022 6:24 PM PEDIATRIC ORTHODONTIST GLUCOSE BY METER Routine 12/17/2022 6:12 PM PEDIATRIC ORTHODONTIST GLUCOSE BY METER Routine 12/17/2022 12:40 PM PEDIATRIC ORTHODONTIST GLUCOSE BY METER Routine 12/17/2022 8:08 AM PEDIATRIC ORTHODONTIST VANCOMYCIN LEVEL Routine 12/17/2022 6:31 AM PEDIATRIC ORTHODONTIST HEMOGLOBIN Routine 12/17/2022 6:31 AM PEDIATRIC ORTHODONTIST RENAL PANEL Routine 12/17/2022 6:31 AM PEDIATRIC ORTHODONTIST GLUCOSE BY METER Routine 12/17/2022 2:12 AM PEDIATRIC ORTHODONTIST GLUCOSE BY METER Routine 12/16/2022 10:06 PM PEDIATRIC ORTHODONTIST GLUCOSE BY METER Routine 12/16/2022 5:31 PM PEDIATRIC ORTHODONTIST GLUCOSE BY METER Routine 12/16/2022 3:41 PM PEDIATRIC ORTHODONTIST GLUCOSE BY METER Routine 12/16/2022 11:21 AM PEDIATRIC ORTHODONTIST GLUCOSE BY METER Routine 12/16/2022 7:24 AM PEDIATRIC ORTHODONTIST CBC WITH PLATELETS Routine 12/16/2022 6:12 AM PEDIATRIC ORTHODONTIST VANCOMYCIN LEVEL Timed 12/16/2022 6:12 AM PEDIATRIC ORTHODONTIST RENAL PANEL Routine 12/16/2022 6:12 AM PEDIATRIC ORTHODONTIST GLUCOSE BY METER Routine 12/16/2022 1:02 AM CDT GLUCOSE BY METER Routine 12/15/2022 10:08 PM CDT GLUCOSE BY METER Routine 12/15/2022 5:09 PM CDT GLUCOSE BY METER Routine 12/15/2022 12:22 PM CDT GLUCOSE BY METER Routine 12/15/2022 7:18 AM CDT CBC WITH PLATELETS Routine 12/15/2022 5:45 AM CDT RENAL PANEL Routine 12/15/2022 5:45 AM CDT GLUCOSE BY METER Routine 12/15/2022 2:32 AM CDT GLUCOSE BY METER Routine 12/14/2022 10:04 PM CDT GLUCOSE BY METER Routine 12/14/2022 6:42 PM CDT GLUCOSE BY METER Routine 12/14/2022 1:10 PM CDT UPPER GI ENDOSCOPY Routine 12/14/2022 11:52 AM CDT ESOPHAGOGASTRODUODENOSCOPY 12/14 11:44 AM CDT Acute on chronic anemia GLUCOSE BY METER Routine 12/14/2022 11:03 AM CDT GLUCOSE BY METER Routine 12/14/2022 7:50 AM CDT GENOTYPE PARTIAL RHD Routine 12/14/2022 5:45 AM CDT CBC WITH PLATELETS Routine 12/14/2022 5:45 AM CDT RENAL PANEL Routine 12/14/2022 5:45 AM CDT GLUCOSE BY METER Routine 12/14/2022 2:02 AM CDT GLUCOSE BY METER Routine 12/13/2022 10:10 PM CDT TRANSFUSE RED BLOOD CELLS (UNIT) STAT 12/13/2022 8:05 PM CDT HEMOGLOBIN Timed 12/13/2022 6:14 PM CDT GLUCOSE BY METER Routine 12/13/2022 5:44 PM CDT TRANSFUSE RED BLOOD CELLS (UNIT) STAT 12/13/2022 2:04 PM CDT BASIC METABOLIC PANEL Routine 12/13/2022 12:33 PM CDT GLUCOSE BY METER Routine 12/13/2022 10:59 AM CDT HEMOGLOBIN STAT 12/13/2022 10:56 AM CDT HAPTOGLOBIN Routine 12/13/2022 6:24 AM CDT GLUCOSE BY METER Routine 12/13/2022 6:07 AM CDT EXTRA BLOOD BANK PURPLE TOP TUBE Routine 12/13/2022 5:25 AM CDT BLOOD MORPHOLOGY PATHOLOGIST REVIEW STAT 12/13/2022 5:18 AM CDT BLOOD MORPHOLOGY PATHOLOGIST REVIEW STAT 12/13/2022 5:18 AM CDT MORPHOLOGY TRACKING STAT 12/13/2022 5:18 AM CDT RETICULOCYTE COUNT STAT 12/13/2022 5:18 AM CDT CBC WITH PLATELETS AND DIFFERENTIAL STAT 12/13/2022 5:18 AM CDT EXTRA BLOOD BANK PURPLE TOP TUBE Routine 12/13/2022 5:18 AM CDT EXTRA TUBE Routine 12/13/2022 5:18 AM CDT FOLATE STAT 12/13/2022 5:18 AM CDT LACTIC ACID WHOLE BLOOD STAT 12/14/19 5:18 AM CDT GLUCOSE BY METER STAT 12/13/2022 2:16 AM CDT LABORATORY MISCELLANEOUS ORDER STAT 1 02/12/2022 1:49 AM CDT XR CHEST 2 VIEWS STAT 12/13/2022 1:10 AM CDT CTA ABDOMEN PELVIS WITH CONTRAST STAT 12/13/2022 1:10 AM CDT BLOOD CULTURE STAT 12/12/2022 11:49 PM CDT EKG 12-LEAD, TRACING ONLY STAT 2022 11:09 PM CDT PREPARE RED BLOOD CELLS (UNIT) STAT 1 02/11/2022 11:07 PM CDT PREPARE RED BLOOD CELLS (UNIT) STAT 1 02/11/2022 11:07 PM CDT PREPARE RED BLOOD CELLS (UNIT) STAT 1 02/11/2022 11:07 PM CDT ISTAT GASES LACTATE VENOUS POCT STAT 12/12/2022 11:05 PM CDT OCCULT BLOOD STOOL STAT 12/12/2022 11:03 PM CDT HEMOGLOBIN STAT 12/12/2022 11:02 PM CDT AMMONIA STAT 12/12/2022 11:02 PM CDT ABO/RH TYPE AND SCREEN STAT 3 10:42 PM CDT TYPE AND SCREEN, ADULT STAT 3 10:42 PM CDT CBC WITH PLATELETS & DIFFERENTIAL STAT 12/12/2022 9:49 PM CDT BLOOD CULTURE Add-On 12/12/2022 9:49 PM CDT LACTATE DEHYDROGENASE Add-On 12/12/2022 9:49 PM CDT TSH Add-On 12/12/2022 9:49 PM CDT VITAMIN B12 Add-On 12/12/2022 9:49 PM CDT IRON AND IRON BINDING CAPACITY Add-On 1 02/11/2022 9:49 PM CDT FERRITIN STAT 12/12/2022 9:49 PM CDT T4 FREE STAT 12/12/2022 9:49 PM CDT BLOOD GAS VENOUS WITH OXYHEMOGLOBIN STAT 12/12/2022 9:49 PM CDT RETICULOCYTE COUNT Add-On 12/12/2022 9:49 PM CDT TSH WITH FREE T4 REFLEX STAT 12/13/19 9:49 PM CDT TROPONIN T, HIGH SENSITIVITY STAT 02/2022 9:49 PM CDT MAGNESIUM STAT 12/12/2022 9:49 PM CDT CBC WITH PLATELETS AND DIFFERENTIAL STAT 12/12/2022 9:49 PM CDT COMPREHENSIVE METABOLIC PANEL STAT 9:49 PM CDT EXTRA HEPARINIZED SYRINGE STAT 2022 9:49 PM CDT EXTRA PURPLE TOP TUBE STAT 12/12/2022 9:49 PM CDT EXTRA GREEN TOP (LITHIUM HEPARIN) TUBE STAT 12/12/2022 9:49 PM CDT EXTRA RED TOP TUBE STAT 12/12/2022 9:49 PM CDT EXTRA BLUE TOP TUBE STAT 12/12/2022 9:49 PM CDT EXTRA BLOOD CULTURE BOTTLE STAT 12/12 9:49 PM CDT EXTRA TUBE STAT 12/12/2022 9:49 PM CDT GLUCOSE BY METER STAT 12/12/2022 9:39 PM CDT GLUCOSE BY METER Routine 12/06/2022 12:04 PM CDT BASIC METABOLIC PANEL Routine 12/06/2022 6:06 AM CDT GLUCOSE BY METER Routine 12/06/2022 2:02 AM CDT GLUCOSE BY METER Routine 12/05/2022 9:16 PM CDT GLUCOSE BY METER Routine 12/05/2022 5:05 PM CDT GLUCOSE BY METER Routine 12/05/2022 11:40 AM CDT GLUCOSE BY METER Routine 12/05/2022 7:38 AM CDT BASIC METABOLIC PANEL Routine 12/05/2022 7:06 AM CDT CBC WITH PLATELETS Routine 12/05/2022 7:06 AM CDT VANCOMYCIN LEVEL Routine 12/05/2022 7:06 AM CDT GLUCOSE BY METER Routine 12/05/2022 1:49 AM CDT GLUCOSE BY METER Routine 12/04/2022 10:02 PM CDT GLUCOSE BY METER Routine 12/04/2022 6:19 PM CDT GLUCOSE BY METER Routine 12/04/2022 12:28 PM CDT GLUCOSE BY METER Routine 12/04/2022 9:30 AM CDT CBC WITH PLATELETS Routine 12/04/2022 7:38 AM CDT BASIC METABOLIC PANEL Routine 12/04/2022 7:38 AM CDT REMOVAL, CATHETER, DIALYSIS, PERITONEAL 12/04/2022 7:26 AM CDT Abdominal infection (H) GLUCOSE BY METER Routine 12/04/2022 1:53 AM CDT GLUCOSE BY METER Routine 12/03/2022 10:00 PM CDT VANCOMYCIN LEVEL Timed 12/03/2022 8:17 PM CDT GLUCOSE BY METER Routine 12/03/2022 5:36 PM CDT GLUCOSE BY METER Routine 12/03/2022 11:14 AM CDT GLUCOSE BY METER Routine 12/03/2022 8:01 AM CDT GLUCOSE BY METER Routine 12/03/2022 7:31 AM CDT CBC WITH PLATELETS Routine 12/03/2022 6:56 AM CDT BASIC METABOLIC PANEL Routine 12/03/2022 6:56 AM CDT VANCOMYCIN LEVEL Routine 12/03/2022 6:56 AM CDT GLUCOSE BY METER Routine 12/03/2022 1:27 AM CDT GLUCOSE BY METER Routine 12/02/2022 10:50 PM CDT GLUCOSE BY METER Routine 12/02/2022 7:04 PM CDT GLUCOSE BY METER Routine 12/02/2022 4:26 PM CDT GLUCOSE BY METER Routine 12/02/2022 11:45 AM CDT VANCOMYCIN LEVEL Routine 12/02/2022 9:04 AM CDT GLUCOSE BY METER Routine 12/02/2022 8:42 AM CDT GLUCOSE BY METER Routine 12/02/2022 8:06 AM CDT CBC WITH PLATELETS Routine 12/02/2022 6:39 AM CDT BASIC METABOLIC PANEL Routine 12/02/2022 6:39 AM CDT GLUCOSE BY METER Routine 12/02/2022 1:58 AM CDT GLUCOSE BY METER Routine 12/01/2022 10:25 PM CDT POTASSIUM Timed 12/01/2022 9:56 PM CDT GLUCOSE BY METER Routine 12/01/2022 6:33 PM CDT GLUCOSE BY METER Routine 12/01/2022 12:42 PM CDT EXTRA BLUE TOP TUBE (LAB USE ONLY) Routine 12/01/2022 7:35 AM CDT BASIC METABOLIC PANEL Routine 12/01/2022 7:35 AM CDT CBC WITH PLATELETS Routine 12/01/2022 7:35 AM CDT VANCOMYCIN LEVEL Routine 12/01/2022 7:35 AM CDT GLUCOSE BY METER Routine 11/30/2022 9:53 PM CDT POTASSIUM Routine 11/30/2022 7:26 PM CDT CELL COUNT WITH DIFFERENTIAL FLUID Routine 11/30/2022 7:11 PM CDT GRAM STAIN Routine 11/30/2022 7:11 PM CDT AEROBIC BACTERIAL CULTURE ROUTINE Routine 11/30/2022 7:11 PM CDT DIFERENTIAL BODY FLUID Routine 7:11 PM CDT CELL COUNT BODY FLUID Routine 11/30/2022 7:11 PM CDT GLUCOSE BY METER Routine 11/30/2022 5:55 PM CDT AEROBIC BACTERIAL CULTURE ROUTINE Routine 11/30/2022 3:04 PM CDT GRAM STAIN Routine 11/30/2022 3:04 PM CDT GLUCOSE BY METER Routine 11/30/2022 2:14 PM CDT POTASSIUM Routine 11/30/2022 1:45 PM CDT GLUCOSE BY METER Routine 11/30/2022 12:03 PM CDT EXTRA RED TOP TUBE (LAB USE ONLY) Routine 11/30/2022 7:23 AM CDT EXTRA BLUE TOP TUBE (LAB USE ONLY) Routine 11/30/2022 7:23 AM CDT COMPREHENSIVE METABOLIC PANEL Routine 7:23 AM CDT CBC WITH PLATELETS Routine 11/30/2022 7:23 AM CDT GLUCOSE BY METER Routine 11/30/2022 7:01 AM CDT GLUCOSE BY METER Routine 11/30/2022 2:12 AM CDT GLUCOSE BY METER Routine 11/29/2022 9:53 PM CDT GLUCOSE BY METER Routine 11/29/2022 5:10 PM CDT XR CHEST PORT 1 VIEW Routine 11/29/2022 4:45 PM CDT AEROBIC BACTERIAL CULTURE ROUTINE Routine 11/29/2022 3:24 PM CDT CELL COUNT WITH DIFFERENTIAL FLUID Routine 11/29/2022 3:23 PM CDT GRAM STAIN Routine 11/29/2022 3:23 PM CDT DIFERENTIAL BODY FLUID Routine 3:23 PM CDT CELL COUNT BODY FLUID Routine 11/29/2022 3:23 PM CDT GLUCOSE BY METER Routine 11/29/2022 10:51 AM CDT ECHO COMPLETE Routine 11/29/2022 9:58 AM CDT RESPIRATORY AEROBIC BACTERIA L CULTURE Routine 11/29/2022 9:00 AM CDT GLUCOSE BY METER Routine 11/29/2022 8:38 AM CDT GLUCOSE BY METER Routine 11/29/2022 7:50 AM CDT HEPATITIS B SURFACE ANTIBODY STAT Add-on 6:28 AM CDT HEPATITIS B SURFACE ANTIGEN STAT Add-on 11/11 6:28 AM CDT BASIC METABOLIC PANEL Timed 11/29/2022 6:28 AM CDT GLUCOSE Routine 11/29/2022 6:28 AM CDT TROPONIN T, HIGH SENSITIVITY Timed 6:28 AM CDT GLUCOSE BY METER Routine 11/29/2022 5:53 AM CDT GLUCOSE BY METER Routine 11/29/2022 4:26 AM CDT GLUCOSE BY METER Routine 11/29/2022 3:01 AM CDT CBC WITH PLATELETS & DIFFERENTIAL Timed 11/29/2022 2:13 AM CDT CBC WITH PLATELETS AND DIFFERENTIAL Timed 11/29/2022 2:13 AM CDT PROCALCITONIN Routine 11/29/2022 2:13 AM CDT TROPONIN T, HIGH SENSITIVITY Timed 2:13 AM CDT NT PROBNP INPATIENT Routine 11/29/2022 2:13 AM CDT BASIC METABOLIC PANEL Timed 11/29/2022 2:13 AM CDT GLUCOSE BY METER Routine 11/29/2022 2:00 AM CDT GLUCOSE BY METER Routine 11/29/2022 1:20 AM CDT EKG 12-LEAD, TRACING ONLY STAT 2022 12:43 AM CDT LAB RESULT - HIM SCAN 11/28/2022 12:[address] VASCULAR - HIM SCAN 12:00 AM CDT GLUCOSE BY METER Routine 11/26/2022 1:14 PM CDT GLUCOSE BY METER Routine 11/26/2022 9:08 AM CDT BASIC METABOLIC PANEL Routine 11/26/2022 6:19 AM CDT GLUCOSE BY METER Routine 11/26/2022 2:45 AM CDT GLUCOSE BY METER Routine 11/25/2022 8:49 PM CDT GLUCOSE BY METER Routine 11/25/2022 6:16 PM CDT ANAEROBIC BACTERIAL CULTURE ROUTINE Routine 11/25/2022 6:15 PM CDT AEROBIC BACTERIAL CULTURE ROUTINE Routine 11/25/2022 6:15 PM CDT GLUCOSE BY METER Routine 11/25/2022 5:42 PM CDT GLUCOSE BY METER Routine 11/25/2022 12:45 PM CDT GLUCOSE BY METER Routine 11/25/2022 8:18 AM CDT GLUCOSE BY METER Routine 11/25/2022 12:54 AM CDT XR CHEST PORT 1 VIEW Routine 11/25/2022 12:52 AM CDT CBC WITH PLATELETS & DIFFERENTIAL Routine 11/24/2022 10:09 PM CDT EXTRA RED TOP TUBE Routine 11/24/2022 10:09 PM CDT EXTRA TUBE Routine 11/24/2022 10:09 PM CDT CBC WITH PLATELETS AND DIFFERENTIAL Routine 11/24/2022 10:09 PM CDT PHOSPHORUS Routine 11/24/2022 10:09 PM CDT MAGNESIUM Routine 11/24/2022 10:09 PM CDT COMPREHENSIVE METABOLIC PANEL Routine 10:09 PM CDT from Last 3 Months Results * (ABNORMAL) Glucose by meter (02/21/2023 3:54 PM PEDIATRIC ORTHODONTIST) Only the most recent of99 resultswithin the time period is included. Pathologist [facility] GLUCOSE BY METER POCT 257(H) 70 - 99 mg/dL 02/21/2023 4:44 PM PEDIATRIC ORTHODONTIST LABORATORY POC Blood, Capillary BLOOD SPECIMEN / Unknown 02/21/2023 3:54 PM PEDIATRIC ORTHODONTIST 02/21/2023 4:44 PM PEDIATRIC ORTHODONTIST [facility] [address] [facility] Lab (1st floor, no room number) [place] [address], [facility] [phone] * (ABNORMAL) Basic metabolic panel (02/21/2023 8:16 AM PEDIATRIC ORTHODONTIST) Only the most recent of11 resultswithin the time period is included. Sodium 134(L) 135 - 145 mmol/L 02/21/2023 8:55 AM [facility] Comment:Reference intervals for this test were updated on 11/06/2022 to more accurately reflect our healthy population. There may be differences in the flagging of prior results with similar values performed with this method. Interpretation of those prior results can be made in the context of the updated reference intervals. Potassium 4.0 3.4 - 5.3 mmol/L 02/21/2023 8:55 AM [facility] Chloride 97(L) 98 - 107 mmol/L 02/21/2023 8:55 AM [facility] Carbon Dioxide (CO2) 28 22 - 29 mmol/L 02/21/2023 8:55 AM [facility] Anion Gap 9 7 - 15 mmol/L 02/21/2023 8:55 AM [facility] Urea Nitrogen 12.8 8.0 - 23.0 mg/dL 02/21/2023 8:55 AM [facility] Creatinine 2.49(H) 0.51 - 0.95 mg/dL 02/21/2023 8:55 AM [facility] GFR Estimate 20(L) >60 mL/min/1. 73m2 02/21/2023 8:55 AM [facility] Calcium 8.6(L) 8.8 - 10.2 mg/dL 02/21/2023 8:55 AM [facility] Glucose 144(H) 70 - 99 mg/dL 02/21/2023 8:55 AM [facility] Blood STRUCTURE OF RIGHT HAND / Unknown Venipuncture / Unknown 02/21/2023 8:16 AM PEDIATRIC ORTHODONTIST 02/21/2023 8:34 AM PEDIATRIC ORTHODONTIST Nidia Yanez DO LAB - BLOOD ORDER JOSEFA LABORATORY [facility] [address] [facility] Lab (1st floor, no room number) [place] [address], [facility] [phone] * (ABNORMAL) CBC with platelets (02/21/2023 8:16 AM PEDIATRIC ORTHODONTIST) Only the most recent of11 resultswithin the time period is included. WBC Count 6.6 4.0 - 11.0 10e3/uL 02/21/2023 8:39 AM PEDIATRIC ORTHODONTIST [facility] RBC Count 4.43 3.80 - 5.20 10e6/uL 02/21/2023 8:39 AM PEDIATRIC ORTHODONTIST [facility] Hemoglobin 12.3 11.7 - 15.7 g/dL 02/21/2023 8:39 AM PEDIATRIC ORTHODONTIST [facility] Hematocrit 39.2 35.0 - 47.0 % 02/21/2023 8:39 AM PEDIATRIC ORTHODONTIST [facility] MCV 89 78 - 100 fL 02/21/2023 8:39 AM PEDIATRIC ORTHODONTIST [facility] MCH 27.8 26.5 - 33.0 pg 02/21/2023 8:39 AM PEDIATRIC ORTHODONTIST LABORATORY MCHC 31.4(L) 31.5 - 36.5 g/dL 02/21/2023 8:39 AM PEDIATRIC ORTHODONTIST [facility] RDW 19.3(H) 10.0 - 15.0 % 02/21/2023 8:39 AM PEDIATRIC ORTHODONTIST LABORATORY Platelet Count 292 150 - 450 10e3/uL 02/21/2023 8:39 AM PEDIATRIC ORTHODONTIST LABORATORY Blood STRUCTURE OF RIGHT HAND / Unknown Venipuncture / Unknown 02/21/2023 8:16 AM PEDIATRIC ORTHODONTIST 02/21/2023 8:34 AM PEDIATRIC ORTHODONTIST Nidia Yanez DO LAB - BLOOD ORDER JOSEFA LABORATORY [facility] [address] [facility] Lab (1st floor, no room number) [place] [address], [facility] [phone] * Hepatitis B Surface Antibody (02/20/2023 3:47 PM PEDIATRIC ORTHODONTIST) Only the most recent of2 resultswithin the time period is included. Hepatitis B Surface Antibody Reactive 02/20/2023 9:13 PM PEDIATRIC ORTHODONTIST [facility] Comment:A reactive result in dicates recovery from acute or chronic hepatitis B virus (HBV) infection or acquired immunity from HBV vaccination. This assay does not differentiate between a vaccine-induced immune response and an immune response induced by infection with HBV. A positive total antihepatitis B core result would indicate that the hepatitis B surface antibody response is due to past HBV infection. Hepatitis B Surface Antibody Instrument Value 17.90 <8.5 m[IU]/mL 02/20/2023 9:13 PM PEDIATRIC ORTHODONTIST LABORATORY Blood STRUCTURE OF RIGHT HAND / Unknown Venipuncture / Unknown 02/20/2023 3:47 PM PEDIATRIC ORTHODONTIST 02/20/2023 4:08 PM PEDIATRIC ORTHODONTIST Michele Chaudhary MD LAB - BLOOD ORDERABL ES LABORATORY [facility] [address] [facility], [address] [place] [address], [facility] [phone] * (ABNORMAL) Lipase (02/20/2023 8:52 AM PEDIATRIC ORTHODONTIST) Only the most recent of2 resultswithin the time period is included. Lipase 186(H) 13 - 60 U/L 02/20/2023 9:27 AM PEDIATRIC ORTHODONTIST LABORATORY Blood STRUCTURE OF LEFT UPPER LIMB / Unknown Venipuncture / Unknown 02/20/2023 8:52 AM PEDIATRIC ORTHODONTIST 02/20/2023 8:59 AM PEDIATRIC ORTHODONTIST Kai Khan DO LAB - BLOOD ORDERA BLES LABORATORY [facility] [address] Lab (1st floor, no room number) [place] [address], [facility] [phone] * Hepatitis B surface antigen (02/20/2023 8:52 AM PEDIATRIC ORTHODONTIST) Only the most recent of2 resultswithin the time period is included. Hepatitis B Surface Antigen Nonreactive Nonreactive 02/21/2023 8:30 AM PEDIATRIC ORTHODONTIST LABORATORY Blood STRUCTURE OF LEFT UPPER LIMB / Unknown Venipuncture / Unknown 02/20/2023 8:52 AM PEDIATRIC ORTHODONTIST 02/20/2023 8:59 AM PEDIATRIC ORTHODONTIST Michele Chaudhary MD LAB - BLOOD ORDERABL ES [facility] [address] [facility], [address] [place] [address], [facility] [phone] * (ABNORMAL) Comprehensive metabolic panel (02/20/2023 8:52 AM PEDIATRIC ORTHODONTIST) Only the most recent of5 resultswithin the time period is included. [facility] Sodium 135 135 - 145 mmol/L 02/20/2023 9:27 AM [facility] Comment:Reference intervals for this test were updated on 11/06/2022 to more accurately reflect our healthy population. There may be differences in the flagging of prior results with similar values performed with this method. Interpretation of those prior results can be made in the context of the updated reference intervals. Potassium 4.2 3.4 - 5.3 mmol/L 02/20/2023 9:27 AM [facility] Carbon Dioxide (CO2) 25 22 - 29 mmol/L 02/20/2023 9:27 AM [facility] Anion Gap 12 7 - 15 mmol/L 02/20/2023 9:27 AM [facility] Urea Nitrogen 34.5(H) 8.0 - 23.0 mg/dL 02/20/2023 9:27 AM [facility] Creatinine 3.81(H) 0.51 - 0.95 mg/dL 02/20/2023 9:27 AM [facility] GFR Estimate 12(L) >60 mL/min/1. 73m2 02/20/2023 9:27 AM [facility] Calcium 8.7(L) 8.8 - 10.2 mg/dL 02/20/2023 9:27 AM [facility] Chloride 98 98 - 107 mmol/L 02/20/2023 9:27 AM [facility] Glucose 112(H) 70 - 99 mg/dL 02/20/2023 9:27 AM [facility] Alkaline Phosphatase 122 40 - 150 U/L 02/20/2023 9:27 AM [facility] Comment:Reference intervals for this test were updated on 12/25/2022 to more accurately reflect our healthy population. There may be differences in the flagging of prior results with similar values performed with this method. Interpretation of those prior results can be made in the context of the updated reference intervals. AST 18 0 - 45 U/L 02/20/2023 9:27 AM PEDIATRIC ORTHODONTIST [facility] Comment:Reference intervals for this test were updated on 07/23/2022 to more accurately reflect our healthy population. There may be differences in the flagging of prior results with similar values performed with this method. Interpretation of those prior results can be made in the context of the updated reference intervals. ALT 5 0 - 50 U/L 02/20/2023 9:27 AM PEDIATRIC ORTHODONTIST [facility] Comment:Reference intervals for this test were updated on 07/23/2022 to more accurately reflect our healthy population. There may be differences in the flagging of prior results with similar values performed with this method. Interpretation of those prior results can be made in the context of the updated reference intervals. Protein Total 6.3(L) 6.4 - 8.3 g/dL 02/20/2023 9:27 AM PEDIATRIC ORTHODONTIST LABORATORY Albumin 3.2(L) 3.5 - 5.2 g/dL 02/20/2023 9:27 AM PEDIATRIC ORTHODONTIST LABORATORY Bilirubin Total 0.2 <=1.2 mg/dL 02/20/2023 9:27 AM PEDIATRIC ORTHODONTIST LABORATORY Blood STRUCTURE OF LEFT UPPER LIMB / Unknown Venipuncture / Unknown 02/20/2023 8:52 AM PEDIATRIC ORTHODONTIST 02/20/2023 8:59 AM PEDIATRIC ORTHODONTIST Kai Khan DO LAB - BLOOD ORDERA BLES LABORATORY [facility] [address] [facility] (1st floor, no room number) [place] [address], [facility] [phone] * CT Abdomen Pelvis w/o Contrast (02/19/2023 9:30 PM PEDIATRIC ORTHODONTIST) Anatomical Region Laterality Modality Abdomen/Pelvis, SUBRAD CT PRISCA DY, UMP CT ABDOMEN PELVIS, RAD CT Computed Tomography 02/19/2023 9:30 PM PEDIATRIC ORTHODONTIST Impressions 02/19/2023 9:46 PM PEDIATRIC ORTHODONTIST IMPRESSION: 1. ??No definite etiology for symptoms. Abundant stool now seen throughout right hemicolon but no obstruction or inflammatory focus evident. Narrative 02/19/2023 9:46 PM PEDIATRIC ORTHODONTIST EXAM: CT ABDOMEN PELVIS W/O CONTRAST LOCATION: DATE: 02/19/2023 INDICATION: ruq epigastric abd pain COMPARISON: 12/13/2022 TECHNIQUE: CT scan of the abdomen and pelvis was performed without IV contrast. Multiplanar reformats were obtained. Dose reduction techniques were used. CONTRAST: None. FINDINGS: LOWER CHEST: Normal. HEPATOBILIARY: Normal. PANCREAS: Normal. SPLEEN: Normal. ADRENAL GLANDS: Normal. KIDNEYS/BLADDER: No change. No stones or hydronephrosis. BOWEL: Diverticulosis of the colon. No acute inflammatory change. No obstruction. Abundant stool within transverse and right hemicolon no obstructing lesion evident. Previously stool burden was predominantly within distal colon LYMPH NODES: No lymphadenopathy. VASCULATURE: Heavy atherosclerotic plaque. PELVIC ORGANS: Calcified fibroids. No adnexal lesion or free fluid. MUSCULOSKELETAL: Resolution of the subcutaneous soft tissue fullness and air seen previously anterior left side of abdomen. Tiny fat-containing left inguinal hernia unchanged. No suspicious bony lesion. Procedure Note Paxton Kay MD - 02/19/2023 EXAM: CT ABDOMEN PELVIS W/O CONTRAST LOCATION: DATE: 02/19/2023 INDICATION: ruq epigastric abd pain COMPARISON: 12/13/2022 TECHNIQUE: CT scan of the abdomen and pelvis was performed without IVcontrast. Multiplanar reformats were obtained. Dose reduction techniqueswere used. CONTRAST: None. FINDINGS: LOWER CHEST: Normal. HEPATOBILIARY: Normal. PANCREAS: Normal. SPLEEN: Normal. ADRENAL GLANDS: Normal. KIDNEYS/BLADDER: No change. No stones or hydronephrosis. BOWEL: Diverticulosis of the colon. No acute inflammatory change. Noobstruction. Abundant stool within transverse and right hemicolon noobstructing lesion evident. Previously stool burden was predominantlywithin distal colon LYMPH NODES: No lymphadenopathy. VASCULATURE: Heavy atherosclerotic plaque. PELVIC ORGANS: Calcified fibroids. No adnexal lesion or free fluid. MUSCULOSKELETAL: Resolution of the subcutaneous soft tissue fullness andair seen previously anterior left side of abdomen. Tiny fat-containingleft inguinal hernia unchanged. No suspicious bony lesion. IMPRESSION: 1. No definite etiology for symptoms. Abundant stool now seen throughoutright hemicolon but no obstruction or inflammatory focus evident. Jose F Lozano MD IMG CT ORDERABLES * (ABNORMAL) UA with Microscopic reflex to Culture (02/19/2023 7:19 PM PEDIATRIC ORTHODONTIST) Color Urine Light Yellow Colorless, Straw, Light Yellow, Yellow 02/19/2023 7:47 PM PEDIATRIC ORTHODONTIST [facility] Appearance Urine Clear Clear 02/19/19 24 7:47 PM PEDIATRIC ORTHODONTIST [facility] Glucose Urine 500(A) Negative mg/dL 02/19/2023 7:47 PM PEDIATRIC ORTHODONTIST [facility] Bilirubin Urine Negative Negative 7:47 PM PEDIATRIC ORTHODONTIST [facility] Ketones Urine Negative Negative mg/dL 02/19/2023 7:47 PM PEDIATRIC ORTHODONTIST [facility] Specific [place] Urine 1.011 1.003 - 1.035 02/19/2023 7:47 PM PEDIATRIC ORTHODONTIST [facility] Blood Urine Small(A) Negative 02/19/2023 7:47 PM PEDIATRIC ORTHODONTIST [facility] pH Urine 7.0 5.0 - 7.0 02/19/2023 7:47 PM PEDIATRIC ORTHODONTIST [facility] Protein Albumin Urine 200(A) Negative mg/dL 02/19/2023 7:47 PM PEDIATRIC ORTHODONTIST [facility] Urobilinogen Urine Normal Normal, 2.0 mg/dL 02/19/2023 7:47 PM PEDIATRIC ORTHODONTIST [facility] Nitrite Urine Negative Negative 02/19/2023 7:47 PM PEDIATRIC ORTHODONTIST [facility] Leukocyte Esterase Urine Negative Negative 02/19/2023 7:47 PM PEDIATRIC ORTHODONTIST [facility] Bacteria Urine Few(A) None Seen /HPF 02/19/2023 7:47 PM PEDIATRIC ORTHODONTIST [facility] Mucus Urine Present(A) None Seen /LPF 02/19/2023 7:47 PM PEDIATRIC ORTHODONTIST [facility] RBC Urine 2 <=2 /HPF 02/19/2023 7:47 PM PEDIATRIC ORTHODONTIST [facility] WBC Urine 3 <=5 /HPF 02/19/2023 7:47 PM PEDIATRIC ORTHODONTIST [facility] Squamous Epithelials Urine 2(H) <=1 /HPF 02/19/2023 7:47 PM PEDIATRIC ORTHODONTIST [facility] Hyaline Casts Urine 1 <=2 /LPF 02/19/2023 7:47 PM PEDIATRIC ORTHODONTIST [facility] Urine URINE SPECIMEN OBTAINED BY CLEAN CATCH PROCEDURE / Unknown Non-blood Collection / Unknown 02/19/2023 7:19 PM PEDIATRIC ORTHODONTIST 02/19/2023 7:34 PM PEDIATRIC ORTHODONTIST Narrative [facility] - 02/19/2023 7:47 PM PEDIATRIC ORTHODONTIST Urine Culture not indicated Jose F Lozano MD LAB - URINE ORDER JOSEFA Performing Organization Address City/[facility]/ZIP Co de Phone Number [facility] [address] Lab (1st floor, no room number) [place] [address], [facility] [phone] * Extra Red Top Tube (02/19/2023 7:18 PM PEDIATRIC ORTHODONTIST) Only the most recent of3 resultswithin the time period is included. Hold Specimen [facility] 02/19/2023 8:31 PM PEDIATRIC ORTHODONTIST [facility] Blood BLOOD SPECIMEN / Unknown Venipuncture / Unknown 02/19/2023 7:18 PM PEDIATRIC ORTHODONTIST 02/19/2023 7:22 PM PEDIATRIC ORTHODONTIST Jose F Lozano MD LAB - BLOOD ORDER JOSEFA Performing Organization Address City/[facility]/ZIP Co de Phone Number [facility] [address] Lab (1st floor, no room number) [place] [address], [facility] [phone] * Extra Blue Top Tube (02/19/2023 7:18 PM PEDIATRIC ORTHODONTIST) Only the most recent of2 resultswithin the time period is included. Hold Specimen [facility] 02/19/2023 8:31 PM PEDIATRIC ORTHODONTIST [facility] Blood BLOOD SPECIMEN / Unknown Venipuncture / Unknown 02/19/2023 7:18 PM PEDIATRIC ORTHODONTIST 02/19/2023 7:22 PM PEDIATRIC ORTHODONTIST Jose F Lozano MD LAB - BLOOD ORDER JOSEFA [facility] [address] Lab (1st floor, no room number) [place] [address], [facility] [phone] * (ABNORMAL) CBC with platelets and differential (02/19/2023 7:18 PM PEDIATRIC ORTHODONTIST) Only the most recent of5 resultswithin the time period is included. WBC Count 7.5 4.0 - 11.0 10e3/uL 02/19/2023 7:25 PM PEDIATRIC ORTHODONTIST [facility] RBC Count 3.77(L) 3.80 - 5.20 10e6/uL 02/19/2023 7:25 PM PEDIATRIC ORTHODONTIST [facility] Hemoglobin 10.7(L) 11.7 - 15.7 g/dL 02/19/2023 7:25 PM PEDIATRIC ORTHODONTIST [facility] Hematocrit 34.1(L) 35.0 - 47.0 % 02/19/2023 7:25 PM PEDIATRIC ORTHODONTIST [facility] MCV 91 78 - 100 fL 02/19/2023 7:25 PM PEDIATRIC ORTHODONTIST [facility] MCH 28.4 26.5 - 33.0 pg 02/19/2023 7:25 PM PEDIATRIC ORTHODONTIST [facility] MCHC 31.4(L) 31.5 - 36.5 g/dL 02/19/2023 7:25 PM PEDIATRIC ORTHODONTIST [facility] RDW 18.8(H) 10.0 - 15.0 % 02/19/2023 7:25 PM PEDIATRIC ORTHODONTIST [facility] Platelet Count 304 150 - 450 10e3/uL 02/19/2023 7:25 PM PEDIATRIC ORTHODONTIST [facility] % Neutrophils 81 % 02/19/2023 7:25 PM PEDIATRIC ORTHODONTIST [facility] % Lymphocytes 10 % 02/19/2023 7:25 PM PEDIATRIC ORTHODONTIST [facility] % Monocytes 6 % 02/19/2023 7:25 PM PEDIATRIC ORTHODONTIST [facility] % Eosinophils 3 % 02/19/2023 7:25 PM PEDIATRIC ORTHODONTIST [facility] % Basophils 0 % 02/19/2023 7:25 PM PEDIATRIC ORTHODONTIST [facility] % Immature Granulocytes 0 % 02/19/2023 7:25 PM PEDIATRIC ORTHODONTIST [facility] NRBCs per 100 WBC 0 <1 /100 024 7:25 PM PEDIATRIC ORTHODONTIST [facility] Absolute Neutrophils 6.0 1.6 - 8.3 10e3/uL 02/19/2023 7:25 PM PEDIATRIC ORTHODONTIST [facility] Absolute Lymphocytes 0.8 0.8 - 5.3 10e3/uL 02/19/2023 7:25 PM PEDIATRIC ORTHODONTIST [facility] Absolute Monocytes 0.4 0.0 - 1.3 10e3/uL 02/19/2023 7:25 PM PEDIATRIC ORTHODONTIST [facility] Absolute Eosinophils 0.2 0.0 - 0.7 10e3/uL 02/19/2023 7:25 PM PEDIATRIC ORTHODONTIST [facility] Absolute Basophils 0.0 0.0 - 0.2 10e3/uL 02/19/2023 7:25 PM PEDIATRIC ORTHODONTIST [facility] Absolute Immature Granulocytes 0.0 <=0.4 10e3/uL 02/19/2023 7:25 PM PEDIATRIC ORTHODONTIST [facility] Absolute NRBCs 0.0 10e3/uL 02/19/2023 7:25 PM P[facility]IATRIC [facility]THODONTIST LABORATORY Blood BLOOD SPECIMEN / Unknown Venipuncture / Unknown 02/19/2023 7:18 PM PEDIATRIC ORTHODONTIST 02/19/2023 7:22 PM PEDIATRIC ORTHODONTIST Jose F Lozano MD LAB - BLOOD ORDER JOSEFA [facility] [address] [facility] Lab (1st floor, no room number) [place] [address], [facility] [phone] * (ABNORMAL) Triglycerides (02/19/2023 7:18 PM PEDIATRIC ORTHODONTIST) Triglycerides 150(H) <150 mg/dL 02/20/2023 3:18 AM PEDIATRIC ORTHODONTIST [facility] Comment: 2-9 years: Normal: ?Less than 75 mg/dL Borderline high: ??75-99 mg/dL High: ? Greater than or equal to 100 mg/dL 9-19 years: Normal: ?Less than 90 mg/dL Borderline high: ??90-129 mg/dL High: ? Greater than or equal to 130 mg/dL 20 years and older: Normal: ?Less than 150 mg/dL Borderline high: ??150-199 mg/dL High: ? 200-499 mg/dL Very high: ?? Greater than or equal to 500 mg/dL Blood BLOOD SPECIMEN / Unknown Venipuncture / Unknown 02/19/2023 7:18 PM PEDIATRIC ORTHODONTIST 02/19/2023 7:22 PM PEDIATRIC ORTHODONTIST Kai Khan DO LAB - BLOOD ORDERA BLES [facility] [address] [facility], [address] [place] [id number], [facility] [phone] * (ABNORMAL) Renal panel (12/18/2022 8:45 AM PEDIATRIC ORTHODONTIST) Only the most recent of5 resultswithin the time period is included. Sodium 135 135 - 145 mmol/L 12/18/2022 9:44 AM [facility] Comment:Reference intervals for this test were updated on 11/06/2022 to more accurately reflect our healthy population. There may be differences in the flagging of prior results with similar values performed with this method. Interpretation of those prior results can be made in the context of the updated reference intervals. Potassium 4.2 3.4 - 5.3 mmol/L 12/18/2022 9:44 AM [facility] Chloride 99 98 - 107 mmol/L 12/18/2022 9:44 AM [facility] Carbon Dioxide (CO2) 29 22 - 29 mmol/L 12/18/2022 9:44 AM [facility] Anion Gap 7 7 - 15 mmol/L 12/18/2022 9:44 AM [facility] Glucose 128(H) 70 - 99 mg/dL 12/18/2022 9:44 AM [facility] Urea Nitrogen 17.7 8.0 - 23.0 mg/dL 12/18/2022 9:44 AM [facility] Creatinine 2.67(H) 0.51 - 0.95 mg/dL 12/18/2022 9:44 AM [facility] GFR Estimate 18(L) >60 mL/min/1. 73m2 12/18/2022 9:44 AM [facility] Calcium 7.6(L) 8.8 - 10.2 mg/dL 12/18/2022 9:44 AM [facility] Albumin 2.6(L) 3.5 - 5.2 g/dL 12/18/2022 9:44 AM [facility] Phosphorus 2.3(L) 2.5 - 4.5 mg/dL 12/18/2022 9:44 AM [facility] Blood STRUCTURE OF RIGHT UPPER LIMB / Unknown Venipuncture / Unknown 12/18/2022 8:45 AM PEDIATRIC ORTHODONTIST 12/18/2022 8:50 AM PEDIATRIC ORTHODONTIST David Treviño MD LAB - BLOOD ORDERABL ES LABORATORY [facility] [address] Lab (1st floor, no room number) [place] [address], [facility] [phone] * Helicobacter pylori Antigen Stool (12/17/2022 6:24 PM PEDIATRIC ORTHODONTIST) Helicobacter pylori Antigen Stool Negative Negative 12/18/2022 10:41 AM PEDIATRIC ORTHODONTIST SPECIALTY CORE/PROT/END O Comment:Negative for Helicob acter pylori antigen by enzyme immunoassay. A negative result indicates the absence of H. pylori antigen or that the level of antigen is below the level of detection. Stool RECTAL CONTENTS / Unknown Non-blood Collection / Unknown 12/17/2022 6:24 PM PEDIATRIC ORTHODONTIST 12/17/2022 6:36 PM PEDIATRIC ORTHODONTIST Adama Ramirez MD LAB - STOOLS OR DERABLES SPECIALTY CORE/PROT/ENDO Specialty Core/Prot/Endo [address] [facility], [address] [phone] * Vancomycin level (12/17/2022 6:31 AM PEDIATRIC ORTHODONTIST) Only the most recent of7 resultswithin the time period is included. Vancomycin 16.0 ug/mL 12/17/2022 8:27 AM P[facility]IATRIC [facility]THODONTIST LABORATORY Comment: Traditional Dosing Therapeutic Range: Trough 10-15 ug/mL Peak 20-40 ug/mL Critical: Greater than 25.0 ug/mL Blood STRUCTURE OF RIGHT HAND / Unknown Venipuncture / Unknown 12/17/2022 6:31 AM PEDIATRIC ORTHODONTIST 12/17/2022 6:49 AM PEDIATRIC ORTHODONTIST Arsenio Flores DO LAB - BLOOD ORDERAB LES Performing Organization Address City/[facility] Co de Phone Number [facility] Lab [address] Lab (1st floor, no room number) [place] [address], [facility] [phone] * (ABNORMAL) Hemoglobin (12/17/2022 6:31 AM PEDIATRIC ORTHODONTIST) Only the most recent of4 resultswithin the time period is included. Hemoglobin 7.1(L) 11.7 - 15.7 g/dL 12/17/2022 6:53 AM [facility]ONTIST LABORATORY Blood STRUCTURE OF RIGHT HAND / Unknown Venipuncture / Unknown 12/17/2022 6:31 AM PEDIATRIC ORTHODONTIST 12/17/2022 6:50 AM PEDIATRIC ORTHODONTIST Lisa Ospina DO LAB - BLOOD ORDERABL ES Performing Organization Address [facility] Co de Phone Number [facility] [address] Lab (1st floor, no room number) [place] [address], [facility] [phone] * UPPER GI ENDOSCOPY (12/14/2022 11:52 AM CDT) Upper GI Endoscopy [facility] Patient Name: Malachi Marr ? Procedure Date: 12/14/2022 11:52 AM ? Date of : 1945 ?Admit Type: Inpatient Age: 77 ? Gender: Female Attending MD: ADAMA RAMIREZ MD, ??Total Sedation Time: MAC sedation Instrument Name: 209 - Gastroscope ? Procedure: ?Upper GI endoscopy Indications: ?Melena Providers: ?ADAMA RAMIREZ MD (Doctor) Referring MD: ? Medicines: ?Monitored Anesthesia Care Complications: ?No immediate complications. Procedure: ?Pre-Anesthesia Assessment: ?- Prior to the procedure, a History and Physical ?was performed, and patient medications and ?allergies were reviewed. The patient is competent. ?The risks and benefits of the procedure and the ?sedation options and risks were discussed with the ?patient. All questions were answered and informed ?consent was obtained. Patient identification and ?proposed procedure were verified by the physician, ?the nurse, the manager sap and the windows deployment technician in ?the procedure room. Mental Status Examination: ?alert and oriented. After reviewing the risks and ?benefits, the patient was deemed in satisfactory ?condition to undergo the procedure. The anesthesia ?plan was to use monitored anesthesia care (MAC). ?Immediately prior to administration of medications, ?the patient was re-assessed for adequacy to receive ?sedatives. The heart rate, respiratory rate, oxygen ?saturations, blood pressure, adequacy of pulmonary ?ventilation, and response to care were monitored ?throughout the procedure. The physical status of ?the patient was re-assessed after the procedure. ?After obtaining informed consent, the endoscope was ?passed under direct vision. Throughout the ?procedure, the patient's blood pressure, pulse, and ?oxygen saturations were monitored continuously. The ?Olympus Gastroscope, Model # GIF-H190, [place] # ?209, SN # [id number] was introduced through the mouth, ?and advanced to the third part of duodenum. The ?upper GI endoscopy was accomplished without ?difficulty. The patient tolerated the procedure ?well. ? Findings: ? A moderate Schatzki ring was found in the lower third of the esophagus. ? The exam of the esophagus was otherwise normal. ? A small hiatal hernia was present. ? Striped moderately erythematous mucosa without bleeding was found in the ? gastric antrum. ? The exam of the stomach was otherwise normal. ? Three non-obstructing non-bleeding cratered duodenal ulcers with no ? stigmata of bleeding were found in the second portion of the duodenum. ? The largest lesion was 7 mm in largest dimension. There is no evidence ? of perforation. ? The first portion of the duodenum and third portion of the duodenum were ? normal. ? Impression: ? - Moderate Schatzki ring. ?- Small hiatal hernia. ?- Erythematous mucosa in the antrum. ?- Non-obstructing non-bleeding duodenal ulcers with ?no stigmata of bleeding. There is no evidence of ?perforation. ?- Normal first portion of the duodenum and third ?portion of the duodenum. ?- No specimens collected. Recommendation: ? - Use Protonix (pantoprazole) 40 mg PO BID. This ?should be given bid for at lest 2 months then could ?be decreased to 40 mg once daily. ?- On aspirin. ?- Stool for H pylori in hospital. Treat if positive. ?- Consider repeat EGD in 2 months to document ?healing if desired. ?- Please call with questions. ? Electronically signed by Adama Ramirez MD ADAMA RAMIREZ MD 12/14/2022 1:05:10 PM I was physically present for the entire viewing portion of the exam. ADAMA RAMIREZ MD Number of Addenda: 0 Note Initiated On: 12/14/2022 11:52 AM MRN: ?[id number] Procedure Date: ? 12/14/2022 11:52:38 AM Total Procedure Duration: 0 hours 8 minutes 56 seconds Estimated Blood Loss: ? Scope In: 12:35:58 PM Scope Out: 12:44:54 PM RADIOLOGY RESULTS 12/14/2022 11:5 2 AM CDT Adama Ramirez MD PROCEDURES RADIOLOGY RESULTS * Genotype Partial RhD (12/14/2022 5:45 AM CDT) See Scanned Result GENOTYPE PARTIAL RHD-Scanned 01/01/2023 8:12 AM [facility] Blood BLOOD SPECIMEN / Unknown Venipuncture / Unknown 12/14/2022 5:45 AM CDT 12/14/2022 6:02 AM CDT Arsenio Flores DO LAB - BLOOD ORDERAB LES Performing Organization Address City/[facility]/ZIP Co de Phone Number [facility] [address] [phone] * Transfuse red blood cells (unit) (12/13/2022 11:17 PM CDT) Only the most recent of2 resultswithin the time period is included. Jason Tapia MD BLOOD TRANSFUSI ON ORDERABLES * (ABNORMAL) Haptoglobin (12/13/2022 6:24 AM CDT) Haptoglobin 283(H) 32 - 197 mg/dL 12/13/2022 12:07 PM CDT [facility]PROT/ENDO Blood STRUCTURE OF RIGHT UPPER LIMB / Unknown Venipuncture / Unknown 12/13/2022 6:24 AM CDT 12/13/2022 6:29 AM CDT Arsenio Flores DO LAB - BLOOD ORDERAB LES [facility]/PROT/ENDO [facility]/Prot/Endo [address] [facility], Room [address] [phone] * Extra Blood Bank Purple Top Tube (12/13/2022 5:25 AM CDT) Only the most recent of2 resultswithin the time period is included. Hold Specimen JIC 12/13/2022 6:31 AM CDT LABORATORY Blood BLOOD SPECIMEN / Unknown Venipuncture / Unknown 12/13/2022 5:25 AM CDT 12/13/2022 5:25 AM CDT Arsenio Flores DO LAB - BLOOD ORDERAB LES [facility] Lab [address] Lab (1st floor, no room number) [place] [id number], [facility] [phone] * Morphology Tracking (12/13/2022 5:18 AM CDT) Blood STRUCTURE OF RIGHT HAND / Unknown Venipuncture / Unknown 12/13/2022 5:18 AM CDT 12/13/2022 5:26 AM CDT Jason Tapia MD LAB - BLOOD ORD ERABLES [facility] [address] Lab (1st floor, no room number) [place] [address], [facility] [phone] * (ABNORMAL) Reticulocyte count (12/13/2022 5:18 AM CDT) Only the most recent of2 resultswithin the time period is included. % Reticulocyte 7.1(H) 0.5 - 2.0 % 12/13/2022 6:12 AM CDT [facility] LABORATORY Absolute Reticulocyte 0.077 0.025 - 0.095 10e6/uL 12/13/2022 6:12 AM CDT LABORATORY Blood STRUCTURE OF RIGHT HAND / Unknown Venipuncture / Unknown 12/13/2022 5:18 AM CDT 12/13/2022 5:26 AM CDT Jason Tapia MD LAB - BLOOD ORD ERABLES LABORATORY [facility] [address] Lab (1st floor, no room number) [place] [address], [place] [phone] * Lactic acid whole blood (12/13/2022 5:18 AM CDT) Lactic Acid 0.9 0.7 - 2.0 mmol/L 12/13/2022 5:47 AM CDT LABORATORY Blood STRUCTURE OF RIGHT HAND / Unknown Venipuncture / Unknown 12/13/2022 5:18 AM CDT 12/13/2022 5:24 AM CDT Jason Tapia MD LAB - BLOOD ORD ERABLES [facility] [address] Lab (1st floor, no room number) [place] [address], [place] [phone] * Folate (12/13/2022 5:18 AM CDT) Folic Acid 10.3 4.6 - 34.8 ng/mL 12/13/2022 9:11 AM CDT [facility] Blood STRUCTURE OF RIGHT HAND / Unknown Venipuncture / Unknown 12/13/2022 5:18 AM CDT 12/13/2022 5:26 AM CDT Arsenio Floers DO LAB - BLOOD ORDERAB LES [facility] [address] [facility], [address] [place] [address], [place] [phone] * Bld morphology pathology review (12/13/2022 5:18 AM CDT) Final Diagnosis Peripheral blood, morphology: - Marked anemia, macrocytic and normochromic, with nonspecific anisopoikilocytosis , polychromasia, and NRBCs. - Mild leukocytosis with neutrophilia. - Platelets quantitatively within normal limits and without diagnostic morphologic abnormality. - Negative for schistocytes and definitive morphologic features of hemolysis. - Negative for overt features of myelodysplasia and circulating blasts. See comment. COMMENT: Macrocytic anemia is nonspecific and may be associated with blood loss, nutritional deficiencies (including vitamin B12 and/or folate), various medications, hypothyroidism, alcohol use, liver disease, and/or underlying myelodysplastic neoplasm (myelodysplastic syndrome). Obtaining vitamin B12 and folate levels may be considered (if not already performed). Reactive-appearing neutrophilia is nonspecific and may be seen with underlying infection, acute physiologic stress, autoimmune or inflammatory conditions, granulocyte colony-stimulating factor (GCSF) therapy, and/or corticosteroid therapy. Clinical correlation is recommended. 12/13/2022 10:32 AM [facility] Peripheral Smear A microscopic examination is performed. 12/13/2022 10:32 AM [facility] Peripheral Hematologic Data Latest Reference Range & Units 12/13/22 05:18 WBC 4.0 - 11.0 10e3/uL 17.3 (H) Hemoglobin 11.7 - 15.7 g/dL 3.8 (LL) Hematocrit 35.0 - 47.0 % 10.6 (L) Platelet Count 150 - 450 10e3/uL 237 RBC Count 3.80 - 5.20 10e6/uL 1.02 (L) MCV 78 - 100 fL 104 (H) MCH 26.5 - 33.0 pg 37.3 (H) MCHC 31.5 - 36.5 g/dL 35.8 RDW 10.0 - 15.0 % 16.4 (H) % Neutrophils % 84 % Lymphocytes % 6 % Monocytes % 8 % Eosinophils % 0 % Basophils % 0 Absolute Basophils 0.0 - 0.2 10e3/uL 0.0 Absolute Eosinophils 0.0 - 0.7 10e3/uL 0.0 Absolute Immature Granulocytes <=0.4 10e3/uL 0.4 Absolute Lymphocytes 0.8 - 5.3 10e3/uL 1.0 Absolute Monocytes 0.0 - 1.3 10e3/uL 1.3 % Immature Granulocytes % 2 Absolute Neutrophils 1.6 - 8.3 10e3/uL 14.5 (H) Absolute NRBCs 10e3/uL 0.3 NRBCs per 100 WBC <1 /100 2 (H) % Retic 0.5 - 2.0 % 7.1 (H) Absolute Retic 0.025 - 0.095 10e6/uL 0.077 (LL): Data is critically low (H): Data is abnormally high (L): Data is abnormally low For patients over 18 years old, anemia and quantitative abnormalities of WBC and platelets (if present) may be further stratified as follows: Hemoglobin (g/dL) in females: 9.7 - 11.6: Mild anemia 7.7 - 9.6: Moderate anemia Less than 7.7: Marked anemia WBC (10^9/L): Greater than 50.0: Marked leukocytosis 18.0 - 50.0: Moderate leukocytosis 11.1 - 17.9: Mild leukocytosis 3.0 - 3.9: Mild leukopenia 2.0 - 2.9: Moderate leukopenia Less than 2.0: Marked leukopenia Platelets (10^9/L): Greater than 900: Marked thrombocytosis 601 - 900: Moderate thrombocytosis 451 - 600: Mild thrombocytosis 100 - 149: Mild thrombocytopenia 50 - 99: Moderate thrombocytopenia Less than 50: Marked thrombocytopenia 12/13/2022 10:32 AM [facility] Performing Labs The technical component of this testing was completed at [facility], [facility] and [facility] 12/13/2022 10:32 AM [facility] Blood BLOOD SPECIMEN / Unknown Venipuncture / Unknown 12/13/2022 5:18 AM CDT 12/13/2022 6:57 AM CDT Comment:CBC with platelets d ifferential and Reticulocyte count should be ordered concurrently with the peripheral smear (all tests performed on the same tube of blood). The concurrent CBC with platelets differential and Reticulocyte count are incorporated into the final peripheral smear report and are necessary for interpretation. Jason Tapia MD LAB - BEAKER AP [facility] PATHOLOGY LAB [facility] Pathology Lab [address] 1[address], [address] [place] [address] * Other Laboratory; [facility]; Reference Lab Workup (Laboratory Miscellaneous Order) (12/13/2022 1:49 AM CDT) See Scanned Result LABORATORY MISCELLANEOUS ORDER-Scanned 12/24/2022 8:35 AM PEDIATRIC ORTHODONTIST MISCELLANEOUS TESTING Blood BLOOD SPECIMEN / Unknown Venipuncture / Unknown 12/13/2022 1:49 AM CDT 12/13/2022 1:50 AM CDT Jason Tapia MD LAB - BLOOD ORD ERABLES MISCELLANEOUS TESTING * XR Chest 2 Views (12/13/2022 1:10 AM CDT) Anatomical Region Laterality Modality Chest Digital Radiogra phy 12/13/2022 1:10 AM CDT Impressions 12/13/2022 1:18 AM CDT IMPRESSION: Heart size within normal limits. Calcified aortic arch. Mild streaky left basilar atelectasis or infiltrate. The right lung is clear. No pneumothorax. Narrative 12/13/2022 1:18 AM CDT EXAM: XR CHEST 2 VIEWS LOCATION: DATE: 12/13/2022 INDICATION: cough COMPARISON: 11/29/2022 Procedure Note Rajan Card MD - 12/13/2022 EXAM: XR CHEST 2 VIEWS LOCATION: DATE: 12/13/2022 INDICATION: cough COMPARISON: 11/29/2022 IMPRESSION: Heart size within normal limits. Calcified aortic arch. Mildstreaky left basilar atelectasis or infiltrate. The right lung is clear.No pneumothorax. Jason Tapia MD IMG DIAGNOSTIC IMAGING ORDERABLES * CTA Abdomen Pelvis with Contrast (12/13/2022 1:10 AM CDT) Anatomical Region Laterality Modality Abdomen/Pelvis, SUBRAD IR NH OCEDURE, UMP CT CTA, RAD CT Computed Tomography 12/13/2022 1:10 AM CDT Impressions 12/13/2022 1:31 AM CDT IMPRESSION: 1. ??There is a small subcutaneous hematoma left side of abdomen at site of tube track removal but there is no evidence for active extravasation at this site nor within the peritoneal cavity. 2. ??No suggestion for acute extravasation into the GI tract. 3. ??There is a question of localized colonic wall thickening involving hepatic flexure and proximal portion of transverse colon possibly relating to segmental colitis. There is no definitive hyperemia involving this segment and no evidence for active extravasation. Narrative 12/13/2022 1:31 AM CDT EXAM: CTA ABDOMEN PELVIS WITH CONTRAST LOCATION: DATE: 12/13/2022 INDICATION: acute on chronic anemia, melena, please do GI bleed protocol. ??ESRD, on hemodialysis, ??Recent removal of peritoneal dialysis catheter COMPARISON: 11/28/2022 TECHNIQUE: CT angiogram abdomen pelvis during arterial phase of injection of IV contrast. 2D and 3D MIP reconstructions were performed by the cath lab technologist. Dose reduction techniques were used. CONTRAST: 49 mL Isovue 370 FINDINGS: ANGIOGRAM ABDOMEN/PELVIS: Normal caliber abdominal aorta. No dissection. Heavy irregular atherosclerotic plaque seen diffusely. At least moderate stenoses are present involving splanchnic and renal arteries. Significant serial stenoses are seen throughout the iliac arteries. LOWER CHEST: New tiny right pleural effusion. HEPATOBILIARY: Normal. PANCREAS: Normal. SPLEEN: Normal. ADRENAL GLANDS: Normal. KIDNEYS/BLADDER: Diminutive kidneys bilaterally. BOWEL: Chronic diverticulosis. Modest amount of pre-existing hyperdense material throughout colon hampers detection of any possible extravasation but no active extravasation or bowel wall hyperemia identified. Abundant stool seen within left hemicolon and rectum. Involving the hepatic flexure and proximal side of transverse colon, there is a moderately segment which is collapsed and empty but may demonstrate circumferential wall thickening. There is slight hyperdensity along the luminal aspect of the mucosa but this does not change significantly throughout the multiple phases of this exam and does not appear to represent hyperemia. Abundant stool is seen both proximal and distal to this region. LYMPH NODES: Normal. PELVIC ORGANS: Calcified uterine fibroids. No pelvic mass or free fluid. MUSCULOSKELETAL: New subcutaneous collection measuring approximately 3 x 2 cm now present just to the left of the umbilicus at site of previous dialysis catheter or tube removal. This would be consistent with a small subcutaneous hematoma. Few tiny air bubbles are seen in this collection is contiguous with the remainder of the tube track. There is no suggestion for active extravasation into this subcutaneous hematoma nor the tract. Abdominal wall musculature appears normal. Procedure Note Paxton Kay MD - 12/13/2022 EXAM: CTA ABDOMEN PELVIS WITH CONTRAST LOCATION: DATE: 12/13/2022 INDICATION: acute on chronic anemia, melena, please do GI bleed protocol.ESRD, on hemodialysis, Recent removal of peritoneal dialysis catheter COMPARISON: 11/28/2022 TECHNIQUE: CT angiogram abdomen pelvis during arterial phase of injectionof IV contrast. 2D and 3D MIP reconstructions were performed by the CTtechnologist. Dose reduction techniques were used. CONTRAST: 49 mL Isovue 370 FINDINGS: ANGIOGRAM ABDOMEN/PELVIS: Normal caliber abdominal aorta. No dissection.Heavy irregular atherosclerotic plaque seen diffusely. At least moderatestenoses are present involving splanchnic and renal arteries. Significantserial stenoses are seen throughout the iliac arteries. LOWER CHEST: New tiny right pleural effusion. HEPATOBILIARY: Normal. PANCREAS: Normal. SPLEEN: Normal. ADRENAL GLANDS: Normal. KIDNEYS/BLADDER: Diminutive kidneys bilaterally. BOWEL: Chronic diverticulosis. Modest amount of pre-existing hyperdensematerial throughout colon hampers detection of any possible extravasationbut no active extravasation or bowel wall hyperemia identified. Abundantstool seen within left hemicolon and rectum. Involving the hepatic flexure and proximal side of transverse colon, thereis a moderately segment which is collapsed and empty but may demonstratecircumferential wall thickening. There is slight hyperdensity along theluminal aspect of the mucosa but this does not change significantly throughout the multiple phases of thisexam and does not appear to represent hyperemia. Abundant stool is seenboth proximal and distal to this region. LYMPH NODES: Normal. PELVIC ORGANS: Calcified uterine fibroids. No pelvic mass or free fluid. MUSCULOSKELETAL: New subcutaneous collection measuring approximately 3 x 2cm now present just to the left of the umbilicus at site of previousdialysis catheter or tube removal. This would be consistent with a smallsubcutaneous hematoma. Few tiny air bubbles are seen in this collection is contiguous with the remainder ofthe tube track. There is no suggestion for active extravasation into thissubcutaneous hematoma nor the tract. Abdominal wall musculature appearsnormal. IMPRESSION: 1. There is a small subcutaneous hematoma left side of abdomen at site oftube track removal but there is no evidence for active extravasation atthis site nor within the peritoneal cavity. 2. No suggestion for acute extravasation into the GI tract. 3. There is a question of localized colonic wall thickening involvinghepatic flexure and proximal portion of transverse colon possibly relatingto segmental colitis. There is no definitive hyperemia involving thissegment and no evidence for active extravasation. Jason Tapia MD IMG CT ORDERABL ES * Blood Culture Hand, Right (12/12/2022 11:49 PM CDT) Only the most recent of2 resultswithin the time period is included. Pathologist [facility] Culture No Growth 12/18/2022 1:16 AM PEDIATRIC ORTHODONTIST [facility] Blood STRUCTURE OF RIGHT HAND / Unknown Venipuncture / Unknown 12/12/2022 11:49 PM CDT 12/13/2022 12:08 AM CDT Jason Tapia MD LAB - MICRO GEN ERAL ORDERABLES [facility] Lab [address] [facility], [address] [place] [address], [facility] [phone] * EKG 12 lead (12/12/2022 11:09 PM CDT) Only the most recent of2 resultswithin the time period is included. Systolic Blood Pressure mmHg RADIOLOGY RESULTS Diastolic Blood Pressure mmHg RADIOLOGY RESULTS Ventricular Rate 72 BPM RAD IOLOGY RESULTS Atrial Rate 72 BPM RADIOLOG Y RESULTS NH Interval 198 ms RADIOLOG Y RESULTS QRS Duration 80 ms RADIOLO GY RESULTS QT 322 ms RADIOLOGY RESULTS QTc 352 ms RADIOLOGY RESULTS P [place] 75 degrees RADIOLOGY RESULTS R AXIS 44 degrees RADIOLOGY RESULTS T [place] -85 degrees RADIOLOGY RESULTS Interpretation ECG Sinus rhythm ST & T wave abnormality, consider anterolateral ischemia Abnormal ECG When compared with ECG of 29-NOV-2022 00:43, Non-specific change in ST segment in Inferior leads Nonspecific T wave abnormality now evident in Inferior leads T wave inversion now evident in Anterolateral leads RADIOLOGY RESULTS 12/12/2022 11:0 9 PM CDT Jason Tapia MD ECG ORDERABLES RADIOLOGY RESULTS * Prepare red blood cells (unit) (12/12/2022 11:07 PM CDT) Only the most recent of3 resultswithin the time period is included. Pathologist [facility] Blood Component Type Red Blood Cells RH BLOOD BANK Product Code [id number] RH BLOO D BANK Unit Status Released RH BLOOD BANK Unit Number [id number] RH B LOOD BANK CROSSMATCH COMPATIBLE RH BLOOD BANK CODING SYSTEM [id number] RH BLO OD BANK UNIT ABO/RH O- RH BLOOD BANK UNIT TYPE ISBT 9500 RH BL OOD BANK 12/12/2022 11:0 7 PM CDT Jason Tapia MD BLOOD BANK PROD UCT ORDERABLES RH BLOOD BANK [address] [place] [address], [facility] * (ABNORMAL) iStat Gases (lactate) venous, POCT (12/12/2022 11:05 PM CDT) Pathologist [facility] Lactic Acid POCT 2.4(H) <=2.0 mmol/L 12/12/2022 11:07 PM CDT RH LABORATORY POC Bicarbonate Venous POCT 32(H) 21 - 28 mmol/L 12/12/2022 11:07 PM CDT RH LABORATORY POC O2 Sat, Venous POCT 31(L) 94 - 100 % 12/12/2022 11:07 PM CDT RH LABORATORY POC pCO2 Venous POCT 46 40 - 50 mm Hg 12/12/2022 11:07 PM CDT RH LABORATORY POC pH Venous POCT 7.45(H) 7.32 - 7.43 12/12/2022 11:07 PM CDT RH LABORATORY POC pO2 Venous POCT 19(L) 25 - 47 mm Hg 12/12/2022 11:07 PM CDT RH LABORATORY POC Blood, venous BLOOD SPECIMEN / Unknown 12/12/2022 11:05 PM CDT 12/12/2022 11:07 PM CDT Jason Tapia MD LAB - BEAKER PO CT LABORATORY POC [facility] Lab [address] Lab (1st floor, no room number) [place] [id number], [facility] [phone] * Stool: occult blood (12/12/2022 11:03 PM CDT) Occult Blood Negative Negative JENNIFER 12/12/2022 11:32 PM CDT LABORATORY Stool RECTAL CONTENTS / Unknown Non-blood Collection / Unknown 12/12/2022 11:03 PM CDT 12/12/2022 11:11 PM CDT Jason Tapia MD LAB - STOOLS OR DERABLES [facility] [address] Lab (1st floor, no room number) [place] [id number], [facility] [phone] * Ammonia (12/12/2022 11:02 PM CDT) Ammonia 19 11 - 51 umol/L 12/12/2022 11:35 PM CDT [facility] LABORATORY Blood BLOOD SPECIMEN / Unknown Venipuncture / Unknown 12/12/2022 11:02 PM CDT 12/12/2022 11:09 PM CDT Jason Tapia MD LAB - BLOOD ORD ERABLES [facility] [address] Lab (1st floor, no room number) [place] [address], [facility] [phone] * (ABNORMAL) Adult Type and Screen (12/12/2022 10:42 PM CDT) ABO/RH(D) O POS 12/12/2022 10:27 PM CDT RH BLOOD BANK Antibody Screen Positive(A) Negative 12/13/19 10:27 PM CDT RH BLOOD BANK Comment:Delay in availabilit y of Red Cells called to [facility] @ 2330 12.12.22 SPECIMEN EXPIRATION DATE [id number] 12/12/2022 10:27 PM CDT RH BLOOD BANK Blood BLOOD SPECIMEN / Unknown Venipuncture / Unknown 12/12/2022 10:42 PM CDT 12/12/2022 10:45 PM CDT Jason Tapia MD LAB - BLOOD BAN K TEST ORDER BLOOD BANK [address] [address], [facility] * Extra Heparinized Syringe (12/12/2022 9:49 PM CDT) Hold Specimen [facility] 12/12/2022 11:02 PM CDT RH LABORATORY Blood, venous BLOOD SPECIMEN / Unknown Venipuncture / Unknown 12/12/2022 9:49 PM CDT 12/12/2022 9:57 PM CDT Jason Tapia MD LAB - BLOOD ORD ERABLES RH LABORATORY [facility] [address] [facility] Lab (1st floor, no room number) [place] [address], [facility] [phone] * Extra Blood Culture Bottle (12/12/2022 9:49 PM CDT) Hold Specimen [facility] 12/12/2022 11:02 PM CDT [facility] LABORATORY Blood BLOOD SPECIMEN / Unknown Venipuncture / Unknown 12/12/2022 9:49 PM CDT 12/12/2022 9:57 PM CDT Jason Tapia MD LAB - BLOOD ORD ERABLES [facility] [address] Lab (1st floor, no room number) [place] [address], [facility] [phone] * Extra Purple Top Tube (12/12/2022 9:49 PM CDT) Hold Specimen [facility] 12/12/2022 11:02 PM CDT RH LABORATORY Blood BLOOD SPECIMEN / Unknown Venipuncture / Unknown 12/12/2022 9:49 PM CDT 12/12/2022 9:57 PM CDT Jason Tapia MD LAB - BLOOD ORD ERATREVA [facility] Lab [address] Lab (1st floor, no room number) [place] [address], [facility] [phone] * Extra Green Top ([place] Heparin) Tube (12/12/2022 9:49 PM CDT) Hold Specimen [facility] 12/12/2022 11:02 PM CDT [facility] LABORATORY Blood BLOOD SPECIMEN / Unknown Venipuncture / Unknown 12/12/2022 9:49 PM CDT 12/12/2022 9:57 PM CDT Jason Tapia MD LAB - BLOOD ORD ERABLES [facility] [address] Lab (1st floor, no room number) [place] [address], [facility] [phone] * (ABNORMAL) Lactate Dehydrogenase (12/12/2022 9:49 PM CDT) Lactate Dehydrogenase 290(H) 0 - 250 U/L 12/13/2022 3:49 AM CDT U LABORATORY Blood BLOOD SPECIMEN / Unknown Venipuncture / Unknown 12/12/2022 9:49 PM CDT 12/12/2022 9:57 PM CDT Arsenio Flores DO LAB - BLOOD ORDERAB LES LABORATORY [facility] [address] [facility], [address] [place] [address], [facility] [phone] * (ABNORMAL) Troponin T, High Sensitivity (12/12/2022 9:49 PM CDT) Only the most recent of3 resultswithin the time period is included. [facility] Troponin T, High Sensitivity 82(H) <=14 ng/L 12/12/2022 11:33 PM CDT LABORATORY Comment: Either a High Sensitivity Troponin T baseline (0 hours) value = 100 ng/L, or an increase in High Sensitivity Troponin T = 7 ng/L at 2 hours compared to 0 hours (2-0 hours), suggests myocardial injury, and urgent clinical attention is required. ?? If the 2-0 hours increase is <7 ng/L, a High Sensitivity Troponin T result above gender-specific reference ranges warrants further evaluation. Recommendations for further evaluation include correlation with clinical decision-making tool (e.g., HEART), a 3rd High Sensitivity Troponin T test 2 hours after the 2nd (a 20% change from baseline would represent concern), admission for observation, close PCC/cardiology follow-up, or urgent outpatient provocative testing. Blood BLOOD SPECIMEN / Unknown Venipuncture / Unknown 12/12/2022 9:49 PM CDT 12/12/2022 9:57 PM CDT Jason Tapia MD LAB - BLOOD ORD ERABLES LABORATORY [facility] [address] Lab (1st floor, no room number) [place] [address], [place] [phone] * (ABNORMAL) TSH with free T4 reflex (12/12/2022 9:49 PM CDT) TSH 5.44(H) 0.30 - 4.20 uIU/mL 12/12/2022 11:33 PM CDT [facility] LABORATORY Blood BLOOD SPECIMEN / Unknown Venipuncture / Unknown 12/12/2022 9:49 PM CDT 12/12/2022 9:57 PM CDT Jason Tapia MD LAB - BLOOD ORD ERATREVA [facility] [address] Lab (1st floor, no room number) [place] [address], [facility] [phone] * (ABNORMAL) TSH (12/12/2022 9:49 PM CDT) TSH 5.18(H) 0.30 - 4.20 uIU/mL 12/13/2022 5:43 AM CDT [facility] LAB[facility]ATORY Blood BLOOD SPECIMEN / Unknown Venipuncture / Unknown 12/12/2022 9:49 PM CDT 12/12/2022 9:57 PM CDT Arsenio Flores DO LAB - BLOOD ORDERAB LES [facility] LABORATORY [facility] [address] [place] [address], [address] [place] [address], [facility] [phone] * T4 free (12/12/2022 9:49 PM CDT) Free T4 1.14 0.90 - 1.70 ng/dL 12/12/2022 11:55 PM CDT [facility] LABORATORY Blood BLOOD SPECIMEN / Unknown Venipuncture / Unknown 12/12/2022 9:49 PM CDT 12/12/2022 9:57 PM CDT Jason Tapia MD LAB - BLOOD ORD ERATREVA [facility] [address] Lab (1st floor, no room number) [place] [address], [facility] [phone] * Magnesium (12/12/2022 9:49 PM CDT) Only the most recent of2 resultswithin the time period is included. Magnesium 2.0 1.7 - 2.3 mg/dL 12/12/2022 11:26 PM CDT [facility] LABORATORY Blood BLOOD SPECIMEN / Unknown Venipuncture / Unknown 12/12/2022 9:49 PM CDT 12/12/2022 9:57 PM CDT Jason Tapia MD LAB - BLOOD ORD ERABLES [facility] Lab [address] Lab (1st floor, no room number) [place] [address], [facility] [phone] * (ABNORMAL) Iron and iron binding capacity (12/12/2022 9:49 PM CDT) [facility] Signature Iron 129 37 - 145 ug/dL 12/13/2022 12:17 AM CDT RH LABORATORY Iron Binding Capacity 170(L) 240 - 430 ug/dL 12/13/2022 12:17 AM CDT [facility] LABORATORY Iron Sat Index 76(H) 15 - 46 % 12/13/2022 12:17 AM CDT [facility] LABORATORY Blood BLOOD SPECIMEN / Unknown Venipuncture / Unknown 12/12/2022 9:49 PM CDT 12/12/2022 9:57 PM CDT Jason Tapia MD LAB - BLOOD ORD ERABLES [facility] Care Lab [address] Lab (1st floor, no room number) [place] [address], [facility] [phone] * (ABNORMAL) Ferritin (12/12/2022 9:49 PM CDT) Ferritin 6,492(H) 11 - 328 ng/mL 12/13/2022 3:48 AM CDT [facility] LAB[facility]ATORY Blood BLOOD SPECIMEN / Unknown Venipuncture / Unknown 12/12/2022 9:49 PM CDT 12/12/2022 9:57 PM CDT Jason Tapia MD LAB - BLOOD ORD ERABLES [facility] [address] [facility], [address] [place] [address], [place] [phone] * (ABNORMAL) Blood gas venous and oxyhgb (12/12/2022 9:49 PM CDT) pH Venous 7.49(H) 7.32 - 7.43 12/12/2022 11:31 PM CDT [facility] LABORATORY pCO2 Venous 44 40 - 50 mm Hg 12/12/2022 11:31 PM CDT [facility] LABORATORY pO2 Venous 27 25 - 47 mm Hg 12/12/2022 11:31 PM CDT [facility] LABORATORY Bicarbonate Venous 33(H) 21 - 28 mmol/L 12/12/2022 11:31 PM CDT [facility] LABORATORY FIO2 JENNIFER 12/12/2022 11:31 PM CDT [facility] LABORATORY Comment:Room Air. Oxyhemoglobin Venous 52(L) 70 - 75 % 12/12/2022 11:31 PM CDT [facility] LABORATORY Base Excess/Deficit 12/12/2022 11:31 PM CDT [facility] LABORATORY Comment:Unable to calculate. Blood, venous BLOOD SPECIMEN / Unknown Venipuncture / Unknown 12/12/2022 9:49 PM CDT 12/12/2022 9:57 PM CDT Jason Taipa MD LAB - BLOOD ORD ERABLES [facility] LABORATORY [facility] [address] Lab (1st floor, no room number) [place] [address], [place] [phone] * Vitamin B12 (12/12/2022 9:49 PM CDT) Vitamin B12 1,105 232 - 1,245 pg/mL 12/13/2022 3:21 AM CDT [facility] LAB[facility]ATORY Blood BLOOD SPECIMEN / Unknown Venipuncture / Unknown 12/12/2022 9:49 PM CDT 12/12/2022 9:57 PM CDT Arsenio Flores DO LAB - BLOOD ORDERAB LES [facility] LAB[facility]ATORY [facility] [address] [facility], [address] [place] [address], [place] [phone] * Potassium (12/01/2022 9:56 PM CDT) Only the most recent of3 resultswithin the time period is included. Potassium 4.9 3.4 - 5.3 mmol/L 12/01/2022 10:54 PM CDT LABORATORY Blood STRUCTURE OF RIGHT UPPER LIMB / Unknown Venipuncture / Unknown 12/01/2022 9:56 PM CDT 12/01/2022 10:05 PM CDT Nidia Yanez DO LAB - BLOOD ORDER JOSEFA LABORATORY [facility] [address] Lab (1st floor, no room number) [place] [address], [place] [phone] * Extra Blue Top Tube (LAB USE ONLY) (12/01/2022 7:35 AM CDT) Only the most recent of2 resultswithin the time period is included. Hold Specimen JIC 12/01/2022 9:02 AM CDT LABORATORY Blood BLOOD SPECIMEN / Unknown Venipuncture / Unknown 12/01/2022 7:35 AM CDT 12/01/2022 7:48 AM CDT Nidia Yanez DO LAB - BLOOD ORDER JOSEFA LABORATORY [facility] [address] Lab (1st floor, no room number) [place] [address], [facility] [phone] * Differential Body Fluid (11/30/2022 7:11 PM CDT) Only the most recent of2 resultswithin the time period is included. % Neutrophils 15 % JENNIFER 11/30/2022 11:22 PM CDT [facility] LABORATORY % Lymphocytes 6 % JENNIFER 11/30/2022 11:22 PM CDT [facility] LABORATORY % Monocyte/Macroph ages 79 % JENNIFER 11/30/2022 11:22 PM CDT [facility] LABORATORY Absolute Neutrophils, Body Fluid 1.7 /uL JENNIFER 11/30/2022 11:22 PM CDT [facility] LABORATORY Peritoneal Fluid SPECIMEN FROM PERITONEUM / Unknown Non-blood Collection / Unknown 11/30/2022 7:11 PM CDT 11/30/2022 7:18 PM CDT Narrative LABORATORY - 11/30/2022 11:22 PM CDT No reference ranges have been established. This result should be interpreted in the context of the patient's clinical condition and compared to simultaneous measurement in the patient's blood. Michele Chaudhary MD LAB - BODY FLUIDS OR DERABLES Performing Organization Address [facility] Co de Phone Number LABORATORY [facility] [address] [facility] Lab (1st floor, no room number) [place] [address], [facility] [phone] * Cell Count Body Fluid (11/30/2022 7:11 PM CDT) Only the most recent of2 resultswithin the time period is included. Color Colorless Colorless, Yellow JENNIFER 11/30/2022 11:21 PM CDT [facility] LABORATORY Clarity Clear Clear JENNIFER 11/30/2022 11:21 PM CDT [facility] LABORATORY RBC Count 2 /uL JENNIFER 11/30/2022 11:21 PM CDT [facility] LABORATORY Cell Count Fluid Source Peritoneum 11/30/2022 11:21 PM CDT [facility] LABORATORY Total Nucleated Cells 11 /uL JENNIFER 11/30/2022 11:21 PM CDT [facility] LABORATORY Peritoneal Fluid SPECIMEN FROM PERITONEUM / Unknown Non-blood Collection / Unknown 11/30/2022 7:11 PM CDT 11/30/2022 7:18 PM CDT Narrative LABORATORY - 11/30/2022 11:21 PM CDT No reference ranges have been established. ??This result should be interpreted in the context of the patient's clinical condition and compared to simultaneous measurement in the patient's blood. ?? Michele Chaudhary MD LAB - BODY FLUIDS OR DERABLES LABORATORY [facility] [address] Lab (1st floor, no room number) [place] [address], [facility] [phone] * Peritoneal Fluid Aerobic Bacterial Culture Routine (11/30/2022 7:11 PM CDT) Only the most recent of4 resultswithin the time period is included. Culture No Growth JNENIFER 12/05/2022 7:27 AM CDT [facility] Peritoneal Fluid SPECIMEN FROM PERITONEUM / Unknown Non-blood Collection / Unknown 11/30/2022 7:11 PM CDT 11/30/2022 7:18 PM CDT Michele Chaudhary MD LAB - MICRO GENERAL ORDERABLES [facility] LABORATORY [facility] Inf. Diseases Diag. Lab [address] [facility], [address] [place] [address], [place] [phone] * Gram stain (11/30/2022 7:11 PM CDT) Only the most recent of3 resultswithin the time period is included. Gram Stain Result No organisms seen 11/30/2022 10:58 PM CDT [facility] Gram Stain Result 2+ WBC seen 11/30/2022 10:58 PM CDT [facility] Peritoneal Fluid SPECIMEN FROM PERITONEUM / Unknown Non-blood Collection / Unknown 11/30/2022 7:11 PM CDT 11/30/2022 7:18 PM CDT Michele Chaudhary MD LAB - MICRO GENERAL ORDERABLES [facility]AT[facility] Inf. Diseases Diag. Lab [address] [facility], [address] [place] [address], [place] [phone] * Extra Red Top Tube (LAB USE ONLY) (11/30/2022 7:23 AM CDT) Hold Specimen [facility] 11/30/2022 8:46 AM CDT LABORATORY Blood TOPOGRAPHY UNKNOWN / Unknown Venipuncture / Unknown 11/30/2022 7:23 AM CDT 11/30/2022 7:39 AM CDT Michele Chaudhary MD LAB - BLOOD ORDERABL ES LABORATORY [facility] [address] Lab (1st floor, no room number) [place] [address], [place] [phone] * XR Chest Port 1 View (11/29/2022 4:45 PM CDT) Only the most recent of2 resultswithin the time period is included. Anatomical Region Laterality Modality Chest Digital Radiogra phy 11/29/2022 4:45 PM CDT Impressions 11/29/2022 8:30 PM CDT IMPRESSION: Negative chest. Narrative 11/29/2022 8:30 PM CDT EXAM: XR CHEST PORT 1 VIEW LOCATION: DATE: 11/29/2022 INDICATION: shortness of breath COMPARISON: Chest radiograph 11/25/2022. Procedure Note Robin Abreu MD - 11/29/2022 EXAM: XR CHEST PORT 1 VIEW LOCATION: DATE: 11/29/2022 INDICATION: shortness of breath COMPARISON: Chest radiograph 11/25/2022. IMPRESSION: Negative chest. Rohini Bradford MD IMG DIAGNOSTIC IMAGI NG ORDERABLES * ECHO COMPLETE (11/29/2022 9:58 AM CDT) LVEF 75-80% CARDIOLOGY RESULTS Anatomical Region Laterality Modality Echocardiography 11/29/2022 9:19 AM CDT Narrative 11/29/2022 10:40 AM CDT [id number]^JOSHUA [facility] Echocardiography Laboratory [address] [place] [address] Name: MALACHI MARR : 1945 Study Date: 11/29/2022 09:19 AM Age: 77 yrs Gender: Female Patient Location: [facility] Reason For Study: SOB Ordering Physician: STORMY ONTIVEROS Referring Physician: Tyrell Schneider Performed By: Natacha Jimenes BSA: 1.4 m2 Height: 61 in Weight: 97 lb HR: 72 BP: 155/47 mmHg Procedure Complete Portable Echo Adult. Interpretation Summary The visual ejection fraction is estimated at 75-80%. Hyperdynamic left ventricular function Peak intracavitatory gradient of 78 mmHg. Left Ventricle LV size not measured. LV thickness not measured. Hyperdynamic left ventricular function. A mid-cavitary gradient is present. Peak intracavitatory gradient of 78 mmHg. Grade I or early diastolic dysfunction. The visual ejection fraction is estimated at 75-80%. Right Ventricle The right ventricle is normal in size and function. Atria Normal left atrial size. Right atrial size is normal. There is no color Doppler evidence of an atrial shunt. Mitral Valve The mitral valve leaflets are moderately thickened. There is moderate mitral annular calcification. The mitral papillary muscle appears thickened and/or calcified. There is trace mitral regurgitation. Tricuspid Valve There is trace tricuspid regurgitation. Right ventricular systolic pressure could not be approximated due to inadequate tricuspid regurgitation. Aortic Valve The aortic valve is not well visualized. No aortic regurgitation is present. No hemodynamically significant valvular aortic stenosis. Pulmonic Valve There is no pulmonic valvular regurgitation. Normal pulmonic valve velocity. Vessels The aortic root is normal size. Normal size ascending aorta. IVC diameter <2.1 cm collapsing >50% with sniff suggests a normal RA pressure of 3 mmHg. Pericardium There is no pericardial effusion. Rhythm Sinus rhythm was noted. MMode/2D Measurements & Calculations Ao root diam: 2.7 cm asc Aorta Diam: 2.7 cm LVOT diam: 1.8 cm LVOT area: 2.7 cm2 Ao root diam index Ht(cm/m): 1.7 Ao root diam index BSA (cm/m2): 1.9 Asc Ao diam index BSA (cm/m2): 2.0 Asc Ao diam index Ht(cm/m): 1.8 LA Volume (BP): 41.1 ml LA Volume Index (BP): 29.6 ml/m2 RV Base: 2.7 cm TAPSE: 2.8 cm Doppler Measurements & Calculations MV E max yobani: 72.5 cm/sec MV A max yobani: 104.9 cm/sec MV E/A: 0.69 MV max P.4 mmHg MV mean P.7 mmHg MV V2 VTI: 31.2 cm MV dec slope: 262.6 cm/sec2 MV dec time: 0.31 sec PA V2 max: 105.4 cm/sec PA max P.4 mmHg PA acc time: 0.10 sec E/E' av.2 Lateral E/e': 7.7 Medial E/e': 10.7 RV S Yobani: 16.5 cm/sec Report approved by: Todd Dunaway 11/29/2022 10:40 AM Procedure Note Michael Atwood MD - 11/29/2022 [id number]^[id number]^[facility] Echocardiography Laboratory [address] [place], [place] [id number] Name: MALACHI MARR : 1945 Study Date: 11/29/2022 09:19 AM Age: 77 yrs Gender: Female Patient Location: [facility] Reason For Study: SOB Ordering Physician: STORMY ONTIVEROS Referring Physician: Tyrell Schneider Performed By: Natacha Jimenes BSA: 1.4 m2 Height: 61 in Weight: 97 lb HR: 72 BP: 155/47 mmHg Procedure Complete Portable Echo Adult. Interpretation Summary The visual ejection fraction is estimated at 75-80%. Hyperdynamic left ventricular function Peak intracavitatory gradient of 78 mmHg. Left Ventricle LV size not measured. LV thickness not measured. Hyperdynamic leftventricular function. A mid-cavitary gradient is present. Peak intracavitatorygradient of 78 mmHg. Grade I or early diastolic dysfunction. The visual ejectionfraction is estimated at 75-80%. Right Ventricle The right ventricle is normal in size and function. Atria Normal left atrial size. Right atrial size is normal. There is no color Doppler evidence of an atrial shunt. Mitral Valve The mitral valve leaflets are moderately thickened. There is moderatemitral annular calcification. The mitral papillary muscle appears thickenedand/or calcified. There is trace mitral regurgitation. Tricuspid Valve There is trace tricuspid regurgitation. Right ventricular systolicpressure could not be approximated due to inadequate tricuspid regurgitation. Aortic Valve The aortic valve is not well visualized. No aortic regurgitation ispresent. No hemodynamically significant valvular aortic stenosis. Pulmonic Valve There is no pulmonic valvular regurgitation. Normal pulmonic valvevelocity. Vessels The aortic root is normal size. Normal size ascending aorta. IVC diameter<2.1 cm collapsing >50% with sniff suggests a normal RA pressure of 3 mmHg. Pericardium There is no pericardial effusion. Rhythm Sinus rhythm was noted. MMode/2D Measurements & Calculations Ao root diam: 2.7 cm asc Aorta Diam: 2.7 cm LVOT diam: 1.8 cm LVOT area: 2.7 cm2 Ao root diam index Ht(cm/m): 1.7 Ao root diam index BSA (cm/m2): 1.9 Asc Ao diam index BSA (cm/m2): 2.0 Asc Ao diam index Ht(cm/m): 1.8 LA Volume (BP): 41.1 ml LA Volume Index (BP): 29.6 ml/m2 RV Base: 2.7 cm TAPSE: 2.8 cm Doppler Measurements & Calculations MV E max yobani: 72.5 cm/sec MV A max yobani: 104.9 cm/sec MV E/A: 0.69 MV max P.4 mmHg MV mean P.7 mmHg MV V2 VTI: 31.2 cm MV dec slope: 262.6 cm/sec2 MV dec time: 0.31 sec PA V2 max: 105.4 cm/sec PA max P.4 mmHg PA acc time: 0.10 sec E/E' av.2 Lateral E/e': 7.7 Medial E/e': 10.7 RV S Yobani: 16.5 cm/sec Report approved by: Todd Dunaway 11/29/2022 10:40 AM Stormy Ontiveros MD, MD CV ECHO ORDERABLES * (ABNORMAL) Respiratory Aerobic Bacterial Culture with Gram Stain (11/29/2022 9:00 AM CDT) Culture 2+ Normal wayne 10:04 AM CDT [facility] Culture 4+ Stenotrophomonas maltophilia(A) 12/02/2022 10:04 AM CDT [facility] Culture 1+ Klebsiella pneumoniae(A) 12/02/2022 10:04 AM CDT [facility] Gram Stain Result <10 Squamous epithelial cells/low power field(A) 12/02/2022 10:04 AM CDT [facility] Gram Stain Result <25 PMNs/low power field(A) 12/02/2022 10:04 AM CDT [facility] Gram Stain Result 4+ Gram negative bacilli(A) 12/02/2022 10:04 AM CDT [facility] Gram Stain Result 1+ Gram positive cocci(A) 12/02/2022 10:04 AM CDT [facility] Sputum SPUTUM / Unknown Non-blood Collection / Unknown 11/29/2022 9:00 AM CDT 11/29/2022 9:11 AM CDT Narrative Organism Antibiotic Method Susceptibility Stenotrophomonas maltophilia Ceftazidime JENNIFER 32 ug/mL: Resistant Stenotrophomonas maltophilia Levofloxacin JENNIFER 1.0 ug/mL: Susceptible Stenotrophomonas maltophilia Trimethopri m/Sulfamethoxa zole JENNIFER 2/38 ug/mL: Susceptible Stenotrophomonas maltophilia Minocycline JENNIFER <=2 ug/mL: Susceptible Klebsiella pneumoniae Ampicillin JENNIFER Resistant Comment:Intrinsicall y Resistant Klebsiella pneumoniae Ampicillin/ Sulbactam JENNIFER 4 ug/mL: Susceptible Klebsiella pneumoniae Piperacillin/Tazobactam JENNIFER <=4 ug/mL: Susceptible Klebsiella pneumoniae Ceftazidime JENNIFER <=1 ug/mL: Susceptible Klebsiella pneumoniae Ceftriaxone JENNIFER <=1 ug/mL: Susceptible Klebsiella pneumoniae Cefepime JENNIFER <=1 ug/mL: Susceptible Klebsiella pneumoniae Meropenem JENNIFER <=0.25 ug/mL: Susceptible Klebsiella pneumoniae Gentamicin JENNIFER <=1 ug/mL: Susceptible Klebsiella pneumoniae Tobramycin JENNIFER <=1 ug/mL: Susceptible Klebsiella pneumoniae Ciprofloxacin JENNIFER <=0.25 ug/mL: Susceptible Klebsiella pneumoniae Levofloxacin JENNIFER <=0.12 ug/mL: Susceptible Klebsiella pneumoniae Trimethoprim/Sulfa methoxa zole JENNIFER <=1/19 ug/mL: Susceptible Stormy Ontiveros MD, MD LAB - MICRO GENERA L ORDERABLES [facility] Inf. Diseases Diag. Lab [address] [facility], [address] [place] [address], [facility] [phone] * (ABNORMAL) Glucose (11/29/2022 6:28 AM CDT) Glucose 66(L) 70 - 99 mg/dL 11/29/2022 7:07 AM CDT LABORATORY Blood STRUCTURE OF RIGHT HAND / Unknown Venipuncture / Unknown 11/29/2022 6:28 AM CDT 11/29/2022 6:40 AM CDT Rohini Bradford MD LAB - BLOOD ORDERABL ES LABORATORY [facility] [address] [facility] Lab (1st floor, no room number) [place] [address], [facility] [phone] * (ABNORMAL) Procalcitonin (11/29/2022 2:13 AM CDT) Procalcitonin 0.69(H) <0.05 ng/mL 11/29/2022 2:49 AM CDT LABORATORY Comment: Interpretation and Recommendations <0.05 ng/mL Normal Very low risk of bacterial infection. Strongly discourage antibiotics. 0.05-0.24 ng/mL Low risk of systemic infection. Local bacterial infection possible. Assess other clinical features of infection. Discourage antibiotics. 0.25-0.49 ng/mL Possible early systemic infection or localized infection Encourage antibiotics only in correct clinical context. Consider obtaining blood cultures or other relevant cultures. Recheck PCT in 6-12 hours to ensure baseline low level. If repeat PCT is rising, consider early systemic infection and consider starting antibiotics. 0.50-1.99 ng/mL Moderate risk of systemic infection. Recommend antibiotics. Evaluate culture results and clinical features to target antibacterial therapy. Obtain blood cultures and other relevant cultures if not done. If empiric antibiotics were started, recheck PCT in: ? 2 days to guide antibiotic de-escalation. ? Discontinue or de-escalate antibiotics when PCT concentration is <80% of peak or abs PCT <0.5. If empiric antibiotics were NOT started, recheck PCT in: ? 6-24 hours to re-evaluate need for antibiotics. ?? 2.00-9.99 ng/mL High risk for progression to severe sepsis. Strongly recommend initiating or continuing antibiotics. Evaluate culture results and clinical features to target antibacterial therapy. Obtain blood cultures and other relevant cultures if not done. Repeat PCT in 2 days to guide antibiotic de-escalation. Consider de-escalating antibiotics when PCT concentration is <80% of peak or abs PCT < 0.5. Greater than or equal to 10 ng/mL Very high likelihood of severe sepsis or septic shock. Strongly recommend initiating or continuing antibiotics. Evaluate culture results and clinical features to target antibacterial therapy. Obtain blood cultures and other relevant cultures if not done. Repeat PCT in 2 days to guide antibiotic de-escalation. Consider de-escalating antibiotics when PCT concentration is <80% of peak or abs PCT < 1.0. Blood STRUCTURE OF RIGHT HAND / Unknown Venipuncture / Unknown 11/29/2022 2:13 AM CDT 11/29/2022 2:20 AM CDT Stormy Ontiveros MD, MD LAB - BLOOD ORDERA [facility] Organization Address City/State/ZIP Co de Phone Number LABORATORY [facility] [address] Lab (1st floor, no room number) [place] [address], [facility] [phone] * (ABNORMAL) Nt probnp inpatient (11/29/2022 2:13 AM CDT) [facility] N terminal Pro BNP Inpatient 2,017(H) 0 - 900 pg/mL 11/29/2022 2:49 AM CDT LABORATORY Comment: Reference range shown and results flagged as abnormal are suggested inpatient cut points for confirming diagnosis if CHF in an acute setting. Establishing a baseline value for each individual patient is useful for follow-up. An inpatient or emergency department NT-proPBNP <300 pg/mL effectively rules out acute CHF, with 99% negative predictive value. The outpatient non-acute reference range for ruling out CHF is: 0-125 pg/mL (age 18 to less than 75) 0-450 pg/mL (age 75 yrs and older) Blood STRUCTURE OF RIGHT HAND / Unknown Venipuncture / Unknown 11/29/2022 2:13 AM CDT 11/29/2022 2:20 AM CDT Stormy Ontiveros MD, LAB - BLOOD ORDERA BL[facility] Lab [address] Lab (1st floor, no room number) [place] [address], [place] [phone] * LAB RESULT - HIM SCAN (11/28/2022 12:00 AM CDT) 11/28/2022 Provider Outside NON-BEAKER LAB TE STING * CT VASCULAR - HIM SCAN (11/28/2022 12:00 AM CDT) Anatomical Region Laterality Modality Computed Tomogra phy 11/28/[address] ORDERABLES * Anaerobic Bacterial Culture Routine (11/25/2022 6:15 PM CDT) Culture No anaerobic organisms isolated JENNIFER 12/03/2022 8:06 AM CDT [facility] Peritoneal Fluid DRAIN / Unknown Non-blood Collection / Unknown 11/25/2022 6:15 PM CDT 11/25/2022 6:35 PM CDT Lela Phelps NEGATIVE CLEANER ANALYST PROGRAMMER LAB - MICRO GENERA L ORDERABLES [facility] Inf. Diseases Diag. Lab [address] [facility], [address] [place] [address], [place] [phone] * (ABNORMAL) Phosphorus (11/24/2022 10:09 PM CDT) Phosphorus 5.4(H) 2.5 - 4.5 mg/dL 11/24/2022 10:40 PM CDT [facility] Blood BLOOD SPECIMEN / Unknown Venipuncture / Unknown 11/24/2022 10:09 PM CDT 11/24/2022 10:22 PM CDT Arsenio Mc MD LAB - BLOOD ORDERAB LES [facility] LAB[facility]AT[facility] Lab [address] [place] [address], [facility] [phone] from Last 3 Months Advance Directives For more information, please contact: [phone] Latest Code Status on File Code Status Date Activated Date Inactivated Comments Full Code 02/19/2023 11:10 PM 02/21/2023 7:12 PM All b asic and advanced life-sustaining interventions are performed as appropriate Question Answer Comments Code status determined by: Discussion with patient/ legal decision maker Code Status History Code Status Date Activated Date Inactivated Comments Full Code 12/13/2022 1:55 AM 12/18/2022 4:34 PM All b asic and advanced life-sustaining interventions are performed as appropriate Question Answer Comments Code status determined by: Discussion with patient/ legal decision maker Full Code 11/29/2022 12:25 AM 12/06/2022 4:48 PM Al l basic and advanced life-sustaining interventions are performed as appropriate Question Answer Comments Code status determined by: Discussion with patient/ legal decision maker Full Code 11/24/2022 9:35 PM 11/26/2022 7:04 PM All basic and advanced life-sustaining interventions are performed as appropriate Question Answer Comments Code status determined by: Discussion with patient/ legal decision maker Care Teams Lac[employer] Relationship Specialty Start Date End Date Tyrell Schneider [address] [place] [address] PCP - General Family Medicine 02/19/23
--- OUTSIDE RECORDS SUMMARY | 2023-02-22 16:11 | XMS_ITS | Referral Summary ---
Author Name Unknown Organization [facility] Address [address] [place] [id number] Care Team Providers Care Commercial Producer Name Role Phone Tyrell Scnheider Bulmaro Primary Care Provider [phone] Encounters Date Type Department Care Team Description 02/19/2023 6:25 PM DEVELOPMENT AND HOUSING DIRECTOR - 02/21/2023 5:11 PM DEVELOPMENT AND HOUSING DIRECTOR Emergency [facility] [address] [place] [id number] Jose F Lozano MD Ricklefs, Kendall D, Arsenio Spaulding MD Richardson, Elizabeth, MD Matthews, Jeremiah R, MD Constipation, unspecified constipation type (Primary Dx); Acute pancreatitis, unspecified complication status, unspecified pancreatitis type Discharge Disposition: Home or Self Care 12/12/2022 9:31 PM CDT - 12/18/2022 2:34 PM DEVELOPMENT AND HOUSING DIRECTOR Hospital Encounter [facility] [address] [place] [address] Jason Tapia MD Kriz, John Anthony, DO Anemia, unspecified type (Primary Dx); Acute on chronic anemia; ESRD (end stage renal disease) on dialysis (H); Chronic obstructive pulmonary disease, unspecified COPD type (H); Constipation, unspecified constipation type; SOB (shortness of breath); COVID Discharge Disposition: Home or Self Care 12/14/2022 11:44 AM CDT - 12/14/2022 12:44 PM CDT Surgery [facility] [address] [place] [address] Adama Ramirez MD ESOPHAGOGASTRODUODENOSCOPY 12/14/2022 12:03 PM CDT Anesthesia Event [facility] [address] [place] [address] Karthik Gonzalez MD Kelly, Megan M, MD 12/12/2022 Travel 11/28/2022 11:24 PM CDT - 12/06/2022 2:42 PM CDT Hospital Encounter [facility] [address] [place] [address] Stormy Ontiveros MD, MD Abdominal infection (H) (Primary Dx) Discharge Disposition: Home or Self Care 12/04/2022 7:44 AM CDT [facility] [address] [place] [address] Arsenio Prasad MD 12/04/2022 7:20 AM CDT - 12/04/2022 8:20 AM [facility] [address] [place] [address] Rajan Hernandez MD REMOVAL PERITONEAL DIALYSIS CATHETER 11/28/2022 Telephone [facility] General Medicine [facility] Pediatric[facility] [address] [place] [phone] Jasmyn Bradley PA-C 11/24/2022 9:10 PM CDT - 11/26/2022 4:50 PM CDT Hospital Encounter [address] [address] Arsenio Mc MD Ponnala, Shruthi, MD Discharge Disposition: Home or Self Care from Last 3 Months Allergies Active Allergy Reactions Criticality Noted Date [...] 01/09/2010 itching Niacin Rash,Itching Low 05/13/2006 itch [place] Rash Low 05/16/2010 Oxycodone Nausea and [...] daily 0 09/25/2022 Active neomycin-polymyxin -dexAMETHasone (MAXITROL) 3.5-60016-3.[address] 0.25 inches Into the [...] SOB (shortness of breath) 11/29/2022 COVID 11/24/2022 Social History Tobacco Use Types Packs/Day Years [...] Comments Blood Pressure 166/77 02/21/2023 3:58 PM DEVELOPMENT AND HOUSING DIRECTOR Pulse 64 02/21/2023 3:58 PM DEVELOPMENT AND HOUSING DIRECTOR Temperature 36.9 ??C (98.4 ??F) 02/21/2023 3:58 PM CS T Respiratory Rate 18 02/21/2023 3:58 PM DEVELOPMENT AND HOUSING DIRECTOR Oxygen Saturation 99% 02/21/2023 3:58 PM DEVELOPMENT AND HOUSING DIRECTOR Inhaled Oxygen Concentration - - Weight 40.8 kg (90 lb) 02/20/2023 8:47 PM DEVELOPMENT AND HOUSING DIRECTOR Height 154.9 cm (5' 1) 12/13/2022 3:15 AM CDT Body Mass Index 17.01 12/13/2022 3:15 AM CDT Plan of Treatment Not on file Procedures Procedure Name Priority Date/Time Associated Diagnosis Comments GLUCOSE BY METER Routine 02/21/2023 3:54 PM DEVELOPMENT AND HOUSING DIRECTOR GLUCOSE BY METER Routine 02/21/2023 12:02 PM DEVELOPMENT AND HOUSING DIRECTOR CBC WITH PLATELETS Routine 02/21/2023 8:16 AM DEVELOPMENT AND HOUSING DIRECTOR BASIC METABOLIC PANEL Routine 02/21/2023 8:16 AM DEVELOPMENT AND HOUSING DIRECTOR GLUCOSE BY METER Routine 02/21/2023 8:02 AM DEVELOPMENT AND HOUSING DIRECTOR GLUCOSE BY METER Routine 02/21/2023 4:31 AM DEVELOPMENT AND HOUSING DIRECTOR GLUCOSE BY METER Routine 02/21/2023 1:08 AM DEVELOPMENT AND HOUSING DIRECTOR GLUCOSE BY METER Routine 02/20/2023 8:54 PM DEVELOPMENT AND HOUSING DIRECTOR HEPATITIS B SURFACE ANTIBODY STAT 11/2023 3:47 PM DEVELOPMENT AND HOUSING DIRECTOR GLUCOSE BY METER STAT 02/20/2023 2:50 PM DEVELOPMENT AND HOUSING DIRECTOR GLUCOSE BY METER STAT 02/20/2023 12:03 PM DEVELOPMENT AND HOUSING DIRECTOR GLUCOSE BY METER STAT 02/20/2023 9:59 AM DEVELOPMENT AND HOUSING DIRECTOR HEPATITIS B SURFACE ANTIGEN Add-On 02/11 8:52 AM DEVELOPMENT AND HOUSING DIRECTOR CBC WITH PLATELETS STAT 02/20/2023 8:52 AM DEVELOPMENT AND HOUSING DIRECTOR LIPASE STAT 02/20/2023 8:52 AM DEVELOPMENT AND HOUSING DIRECTOR COMPREHENSIVE METABOLIC PANEL STAT 8:52 AM DEVELOPMENT AND HOUSING DIRECTOR GLUCOSE BY METER STAT 02/20/2023 4:20 AM DEVELOPMENT AND HOUSING DIRECTOR GLUCOSE BY METER STAT 02/20/2023 2:33 AM DEVELOPMENT AND HOUSING DIRECTOR GLUCOSE BY METER STAT 02/20/2023 2:03 AM DEVELOPMENT AND HOUSING DIRECTOR GLUCOSE BY METER STAT 02/19/2023 11:40 PM DEVELOPMENT AND HOUSING DIRECTOR CT ABDOMEN PELVIS W/O CONTRAST STAT 0 02/19/2023 9:30 PM DEVELOPMENT AND HOUSING DIRECTOR ROUTINE UA WITH MICROSCOPIC REFLEX TO CULTURE STAT 02/19/2023 7:19 PM DEVELOPMENT AND HOUSING DIRECTOR CBC WITH PLATELETS & DIFFERENTIAL STAT 02/19/2023 7:18 PM DEVELOPMENT AND HOUSING DIRECTOR TRIGLYCERIDES Add-On 02/19/2023 7:18 PM DEVELOPMENT AND HOUSING DIRECTOR EXTRA RED TOP TUBE STAT 02/19/2023 7:18 PM DEVELOPMENT AND HOUSING DIRECTOR EXTRA BLUE TOP TUBE STAT 02/19/2023 7:18 PM DEVELOPMENT AND HOUSING DIRECTOR CBC WITH PLATELETS AND DIFFERENTIAL STAT 02/19/2023 7:18 PM DEVELOPMENT AND HOUSING DIRECTOR EXTRA TUBE STAT 02/19/2023 7:18 PM DEVELOPMENT AND HOUSING DIRECTOR LIPASE STAT 02/19/2023 7:18 PM DEVELOPMENT AND HOUSING DIRECTOR COMPREHENSIVE METABOLIC PANEL STAT 7:18 PM DEVELOPMENT AND HOUSING DIRECTOR GLUCOSE BY METER Routine 12/18/2022 12:47 PM DEVELOPMENT AND HOUSING DIRECTOR RENAL PANEL Routine 12/18/2022 8:45 AM DEVELOPMENT AND HOUSING DIRECTOR GLUCOSE BY METER Routine 12/18/2022 8:08 AM DEVELOPMENT AND HOUSING DIRECTOR GLUCOSE BY METER Routine 12/18/2022 1:44 AM DEVELOPMENT AND HOUSING DIRECTOR GLUCOSE BY METER Routine 12/17/2022 10:16 PM DEVELOPMENT AND HOUSING DIRECTOR GLUCOSE BY METER Routine 12/17/2022 10:10 PM DEVELOPMENT AND HOUSING DIRECTOR GLUCOSE BY METER Routine 12/17/2022 10:07 PM DEVELOPMENT AND HOUSING DIRECTOR HELICOBACTER PYLORI ANTIGEN STOOL Routine 12/17/2022 6:24 PM DEVELOPMENT AND HOUSING DIRECTOR GLUCOSE BY METER Routine 12/17/2022 6:12 PM DEVELOPMENT AND HOUSING DIRECTOR GLUCOSE BY METER Routine 12/17/2022 12:40 PM DEVELOPMENT AND HOUSING DIRECTOR GLUCOSE BY METER Routine 12/17/2022 8:08 AM DEVELOPMENT AND HOUSING DIRECTOR VANCOMYCIN LEVEL Routine 12/17/2022 6:31 AM DEVELOPMENT AND HOUSING DIRECTOR HEMOGLOBIN Routine 12/17/2022 6:31 AM DEVELOPMENT AND HOUSING DIRECTOR RENAL PANEL Routine 12/17/2022 6:31 AM DEVELOPMENT AND HOUSING DIRECTOR GLUCOSE BY METER Routine 12/17/2022 2:12 AM DEVELOPMENT AND HOUSING DIRECTOR GLUCOSE BY METER Routine 12/16/2022 10:06 PM DEVELOPMENT AND HOUSING DIRECTOR GLUCOSE BY METER Routine 12/16/2022 5:31 PM DEVELOPMENT AND HOUSING DIRECTOR GLUCOSE BY METER Routine 12/16/2022 3:41 PM DEVELOPMENT AND HOUSING DIRECTOR GLUCOSE BY METER Routine 12/16/2022 11:21 AM DEVELOPMENT AND HOUSING DIRECTOR GLUCOSE BY METER Routine 12/16/2022 7:24 AM DEVELOPMENT AND HOUSING DIRECTOR CBC WITH PLATELETS Routine 12/16/2022 6:12 AM DEVELOPMENT AND HOUSING DIRECTOR VANCOMYCIN LEVEL Timed 12/16/2022 6:12 AM DEVELOPMENT AND HOUSING DIRECTOR RENAL PANEL Routine 12/16/2022 6:12 AM DEVELOPMENT AND HOUSING DIRECTOR GLUCOSE BY METER Routine 12/16/2022 1:02 AM [...] 2:16 AM CDT LABORATORY MISCELLANEOUS ORDER STAT 02/12/2022 1:49 AM CDT XR CHEST 2 [...] PM CDT ABO/RH TYPE AND SCREEN STAT 10:42 PM CDT TYPE AND SCREEN, ADULT STAT 10:42 PM CDT CBC WITH PLATELETS & [...] (ABNORMAL) Glucose by meter (02/21/2023 3:54 PM DEVELOPMENT AND HOUSING DIRECTOR) Only the most recent of99 resultswithin the time period is included. GLUCOSE BY METER POCT 257(H) 70 - 99 mg/dL 02/21/2023 4:44 PM DEVELOPMENT AND HOUSING DIRECTOR LABORATORY POC Blood, Capillary BLOOD SPECIMEN / Unknown 02/21/2023 3:54 PM DEVELOPMENT AND HOUSING DIRECTOR 02/21/2023 4:44 PM DEVELOPMENT AND HOUSING DIRECTOR [facility] POCT LABORATORY [facility] Acute Care Lab [address] [facility] Lab (1st floor, no room number) [place] [address], [facility] [phone] * (ABNORMAL) Basic metabolic panel (02/21/2023 8:16 AM DEVELOPMENT AND HOUSING DIRECTOR) Only the most recent of11 resultswithin the time period is included. Sodium 134(L) 135 - 145 mmol/L 02/21/2023 8:55 AM DEVELOPMENT AND HOUSING DIRECTOR LABORATORY Comment:Reference intervals for this test were updated on 11/06/2022 to more accurately reflect our healthy population. There may be differences in the flagging of prior results with similar values performed with this method. Interpretation of those prior results can be made in the context of the updated reference intervals. Potassium 4.0 3.4 - 5.3 mmol/L 02/21/2023 8:55 AM [facility] Chloride 97(L) 98 - 107 mmol/L 02/21/2023 8:55 AM [facility] Carbon Dioxide (CO2) 28 22 - 29 mmol/L 02/21/2023 8:55 AM [facility] Anion Gap 9 7 - 15 mmol/L 02/21/2023 8:55 AM [facility] Urea Nitrogen 12.8 8.0 - 23.0 mg/dL 02/21/2023 8:55 AM [facility] Creatinine 2.49(H) 0.51 - 0.95 mg/dL 02/21/2023 8:55 AM [facility] GFR Estimate 20(L) >60 mL/min/1. 73m2 02/21/2023 8:55 AM [facility] Calcium 8.6(L) 8.8 - 10.2 mg/dL 02/21/2023 8:55 AM [facility] Glucose 144(H) 70 - 99 mg/dL 02/21/2023 8:55 AM [facility] Blood STRUCTURE OF RIGHT HAND / Unknown Venipuncture / Unknown 02/21/2023 8:16 AM DEVELOPMENT AND HOUSING DIRECTOR 02/21/2023 8:34 AM DEVELOPMENT AND HOUSING DIRECTOR Nidia Yanez DO LAB - BLOOD ORDER JOSEFA LABORATORY [facility] Acute Care Lab [address] [facility] Lab (1st floor, no room number) [place] [address], [facility] [phone] * (ABNORMAL) CBC with platelets (02/21/2023 8:16 AM DEVELOPMENT AND HOUSING DIRECTOR) Only the most recent of11 resultswithin the time period is included. WBC Count 6.6 4.0 - 11.0 10e3/uL 02/21/2023 8:39 AM DEVELOPMENT AND HOUSING DIRECTOR LABORATORY RBC Count 4.43 3.80 - 5.20 10e6/uL 02/21/2023 8:39 AM DEVELOPMENT AND HOUSING DIRECTOR [facility] Hemoglobin 12.3 11.7 - 15.7 g/dL 02/21/2023 8:39 AM DEVELOPMENT AND HOUSING DIRECTOR [facility] Hematocrit 39.2 35.0 - 47.0 % 02/21/2023 8:39 AM DEVELOPMENT AND HOUSING DIRECTOR [facility] MCV 89 78 - 100 fL 02/21/2023 8:39 AM DEVELOPMENT AND HOUSING DIRECTOR [facility] MCH 27.8 26.5 - 33.0 pg 02/21/2023 8:39 AM DEVELOPMENT AND HOUSING DIRECTOR [facility] MCHC 31.4(L) 31.5 - 36.5 g/dL 02/21/2023 8:39 AM DEVELOPMENT AND HOUSING DIRECTOR [facility] RDW 19.3(H) 10.0 - 15.0 % 02/21/2023 8:39 AM DEVELOPMENT AND HOUSING DIRECTOR [facility] Platelet Count 292 150 - 450 10e3/uL 02/21/2023 8:39 AM DEVELOPMENT AND HOUSING DIRECTOR LABORATORY Blood STRUCTURE OF RIGHT HAND / Unknown Venipuncture / Unknown 02/21/2023 8:16 AM DEVELOPMENT AND HOUSING DIRECTOR 02/21/2023 8:34 AM DEVELOPMENT AND HOUSING DIRECTOR Nidia Yanez DO LAB - BLOOD ORDER JOSEFA LABORATORY [facility] Acute Care Lab [address] [facility] Lab (1st floor, no room number) [place] [address] [phone] * Hepatitis B Surface Antibody (02/20/2023 3:47 PM DEVELOPMENT AND HOUSING DIRECTOR) Only the most recent of2 resultswithin the time period is included. Hepatitis B Surface Antibody Reactive 02/20/2023 9:13 PM DEVELOPMENT AND HOUSING DIRECTOR [facility] Comment:A reactive result in dicates [...] Value 17.90 <8.5 m[IU]/mL 02/20/2023 9:13 PM DEVELOPMENT AND HOUSING DIRECTOR [facility] Blood STRUCTURE OF RIGHT HAND / Unknown Venipuncture / Unknown 02/20/2023 3:47 PM DEVELOPMENT AND HOUSING DIRECTOR 02/20/2023 4:08 PM DEVELOPMENT AND HOUSING DIRECTOR Michele Chaudhary MD LAB - BLOOD ORDERABL ES LABORATORY [facility] [address] [facility] [address] [facility], [address] [place] [address], [place] [phone] * (ABNORMAL) Lipase (02/20/2023 8:52 AM DEVELOPMENT AND HOUSING DIRECTOR) Only the most recent of2 resultswithin the time period is included. Lipase 186(H) 13 - 60 U/L 02/20/2023 9:27 AM DEVELOPMENT AND HOUSING DIRECTOR LABORATORY Blood STRUCTURE OF LEFT UPPER LIMB / Unknown Venipuncture / Unknown 02/20/2023 8:52 AM DEVELOPMENT AND HOUSING DIRECTOR 02/20/2023 8:59 AM DEVELOPMENT AND HOUSING DIRECTOR Kai Khan DO LAB - BLOOD ORDERA BLES Performing Organization Address City/[facility]/ZIP Co de Phone Number LABORATORY [facility] Acute Care Lab [address] Lab (1st floor, no room number) [place] [address], [place] [phone] * Hepatitis B surface antigen (02/20/2023 8:52 AM DEVELOPMENT AND HOUSING DIRECTOR) Only the most recent of2 resultswithin the time period is included. Hepatitis B Surface Antigen Nonreactive Nonreactive 02/21/2023 8:30 AM DEVELOPMENT AND HOUSING DIRECTOR LABORATORY Blood STRUCTURE OF LEFT UPPER LIMB / Unknown Venipuncture / Unknown 02/20/2023 8:52 AM DEVELOPMENT AND HOUSING DIRECTOR 02/20/2023 8:59 AM DEVELOPMENT AND HOUSING DIRECTOR Michele Chaudhary MD LAB - BLOOD ORDERABL ES LABORATORY [facility] [address] [facility], [address] [place] [address], [place] [phone] * (ABNORMAL) Comprehensive metabolic panel (02/20/2023 8:52 AM 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 [facility] Sodium 135 135 - 145 mmol/L 02/20/2023 9:27 AM [facility] Comment:Reference intervals for this test were updated on 11/06/2022 to more accurately reflect our healthy population. There may be differences in the flagging of prior results with similar values performed with this method. Interpretation of those prior results can be made in the context of the updated reference intervals. Potassium 4.2 3.4 - 5.3 mmol/L 02/20/2023 9:27 AM [facility] Carbon Dioxide (CO2) 25 22 - 29 mmol/L 02/20/2023 9:27 AM [facility] Anion Gap 12 7 - 15 mmol/L 02/20/2023 9:27 AM [facility] Urea Nitrogen 34.5(H) 8.0 - 23.0 mg/dL 02/20/2023 9:27 AM [facility] Creatinine 3.81(H) 0.51 - 0.95 mg/dL 02/20/2023 9:27 AM [facility] GFR Estimate 12(L) >60 mL/min/1. 73m2 02/20/2023 9:27 AM [facility] Calcium 8.7(L) 8.8 - 10.2 mg/dL 02/20/2023 9:27 AM [facility] Chloride 98 98 - 107 mmol/L 02/20/2023 9:27 AM [facility] Glucose 112(H) 70 - 99 mg/dL 02/20/2023 9:27 AM [facility] Alkaline Phosphatase 122 40 - 150 U/L 02/20/2023 9:27 AM [facility] Comment:Reference intervals for this test were updated on 12/25/2022 to more accurately reflect our healthy population. There may be differences in the flagging of prior results with similar values performed with this method. Interpretation of those prior results can be made in the context of the updated reference intervals. AST 18 0 - 45 U/L 02/20/2023 9:27 AM [facility] Comment:Reference intervals for this test were updated on 07/23/2022 to more accurately reflect our healthy population. There may be differences in the flagging of prior results with similar values performed with this method. Interpretation of those prior results can be made in the context of the updated reference intervals. ALT 5 0 - 50 U/L 02/20/2023 9:27 AM DEVELOPMENT AND HOUSING DIRECTOR [facility] Comment:Reference intervals for this test were updated on 07/23/2022 to more accurately reflect our healthy population. There may be differences in the flagging of prior results with similar values performed with this method. Interpretation of those prior results can be made in the context of the updated reference intervals. Protein Total 6.3(L) 6.4 - 8.3 g/dL 02/20/2023 9:27 AM DEVELOPMENT AND HOUSING DIRECTOR [facility] Albumin 3.2(L) 3.5 - 5.2 g/dL 02/20/2023 9:27 AM DEVELOPMENT AND HOUSING DIRECTOR [facility] Bilirubin Total 0.2 <=1.2 mg/dL 02/20/2023 9:27 AM DEVELOPMENT AND HOUSING DIRECTOR [facility] Blood STRUCTURE OF LEFT UPPER LIMB / Unknown Venipuncture / Unknown 02/20/2023 8:52 AM DEVELOPMENT AND HOUSING DIRECTOR 02/20/2023 8:59 AM DEVELOPMENT AND HOUSING DIRECTOR Kai Khan DO LAB - BLOOD ORDERA BLES LABORATORY [facility] Acute Care Lab [address] [facility] Lab (1st floor, no room number) [place] [address], [facility] [phone] * CT Abdomen Pelvis w/o Contrast (02/19/2023 9:30 PM DEVELOPMENT AND HOUSING DIRECTOR) Anatomical Region Laterality Modality Abdomen/Pelvis, SUBRAD CT PRISCA DY, UMP CT ABDOMEN PELVIS, RAD CT Computed Tomography 02/19/2023 9:30 PM DEVELOPMENT AND HOUSING DIRECTOR Impressions 02/19/2023 9:46 PM DEVELOPMENT AND HOUSING DIRECTOR IMPRESSION: 1. ??No definite etiology for symptoms. Abundant stool now seen throughout right hemicolon but no obstruction or inflammatory focus evident. Narrative 02/19/2023 9:46 PM DEVELOPMENT AND HOUSING DIRECTOR EXAM: CT ABDOMEN PELVIS W/O CONTRAST LOCATION: [facility] DATE: 02/19/2023 INDICATION: ruq epigastric abd pain [...] EXAM: CT ABDOMEN PELVIS W/O CONTRAST LOCATION: [facility] DATE: 02/19/2023 INDICATION: ruq epigastric abd pain [...] Microscopic reflex to Culture (02/19/2023 7:19 PM DEVELOPMENT AND HOUSING DIRECTOR) Color Urine Light Yellow Colorless, Straw, Light Yellow, Yellow 02/19/2023 7:47 PM DEVELOPMENT AND HOUSING DIRECTOR [facility] Appearance Urine Clear Clear 02/19/19 7:47 PM DEVELOPMENT AND HOUSING DIRECTOR LABORATORY Glucose Urine 500(A) Negative mg/dL 02/19/2023 7:47 PM DEVELOPMENT AND HOUSING DIRECTOR LABORATORY Bilirubin Urine Negative Negative 7:47 PM DEVELOPMENT AND HOUSING DIRECTOR LABORATORY Ketones Urine Negative Negative mg/dL 02/19/2023 7:47 PM DEVELOPMENT AND HOUSING DIRECTOR LABORATORY Specific [place] Urine 1.011 1.003 - 1.035 02/19/2023 7:47 PM DEVELOPMENT AND HOUSING DIRECTOR LABORATORY Blood Urine Small(A) Negative 02/19/2023 7:47 PM DEVELOPMENT AND HOUSING DIRECTOR LABORATORY pH Urine 7.0 5.0 - 7.0 02/19/2023 7:47 PM DEVELOPMENT AND HOUSING DIRECTOR LABORATORY Protein Albumin Urine 200(A) Negative mg/dL 02/19/2023 7:47 PM DEVELOPMENT AND HOUSING DIRECTOR LABORATORY Urobilinogen Urine Normal Normal, 2.0 mg/dL 02/19/2023 7:47 PM DEVELOPMENT AND HOUSING DIRECTOR LABORATORY Nitrite Urine Negative Negative 02/19/2023 7:47 PM DEVELOPMENT AND HOUSING DIRECTOR LABORATORY Leukocyte Esterase Urine Negative Negative 02/19/2023 7:47 PM DEVELOPMENT AND HOUSING DIRECTOR LABORATORY Bacteria Urine Few(A) None Seen /HPF 02/19/2023 7:47 PM DEVELOPMENT AND HOUSING DIRECTOR LABORATORY Mucus Urine Present(A) None Seen /LPF 02/19/2023 7:47 PM DEVELOPMENT AND HOUSING DIRECTOR LABORATORY RBC Urine 2 <=2 /HPF 02/19/2023 7:47 PM DEVELOPMENT AND HOUSING DIRECTOR LABORATORY WBC Urine 3 <=5 /HPF 02/19/2023 7:47 PM DEVELOPMENT AND HOUSING DIRECTOR LABORATORY Squamous Epithelials Urine 2(H) <=1 /HPF 02/19/2023 7:47 PM DEVELOPMENT AND HOUSING DIRECTOR LABORATORY Hyaline Casts Urine 1 <=2 /LPF 02/19/2023 7:47 PM DEVELOPMENT AND HOUSING DIRECTOR LABORATORY Urine URINE SPECIMEN OBTAINED BY CLEAN CATCH PROCEDURE / Unknown Non-blood Collection / Unknown 02/19/2023 7:19 PM DEVELOPMENT AND HOUSING DIRECTOR 02/19/2023 7:34 PM DEVELOPMENT AND HOUSING DIRECTOR Narrative LABORATORY - 02/19/2023 7:47 PM DEVELOPMENT AND HOUSING DIRECTOR Urine Culture not indicated Jose F Lozano MD LAB - URINE ORDER JOSEFA LABORATORY [facility] Acute Care Lab [address] Lab (1st floor, no room number) [place] [address], [facility] [phone] * Extra Red Top Tube (02/19/2023 7:18 PM DEVELOPMENT AND HOUSING DIRECTOR) Only the most recent of3 resultswithin the time period is included. Hold Specimen [facility] 02/19/2023 8:31 PM DEVELOPMENT AND HOUSING DIRECTOR [facility] Blood BLOOD SPECIMEN / Unknown Venipuncture / Unknown 02/19/2023 7:18 PM DEVELOPMENT AND HOUSING DIRECTOR 02/19/2023 7:22 PM DEVELOPMENT AND HOUSING DIRECTOR Jose F Lozano MD LAB - BLOOD ORDER JOSEFA LABORATORY [facility] Acute Care Lab [address] Lab (1st floor, no room number) [place] [address], [facility] [phone] * Extra Blue Top Tube (02/19/2023 7:18 PM DEVELOPMENT AND HOUSING DIRECTOR) Only the most recent of2 resultswithin the time period is included. [facility] Hold Specimen [facility] 02/19/2023 8:31 PM DEVELOPMENT AND HOUSING DIRECTOR LABORATORY Blood BLOOD SPECIMEN / Unknown Venipuncture / Unknown 02/19/2023 7:18 PM DEVELOPMENT AND HOUSING DIRECTOR 02/19/2023 7:22 PM DEVELOPMENT AND HOUSING DIRECTOR Jose F Lozano MD LAB - BLOOD ORDER JOSEFA LABORATORY [facility] Acute Care Lab [address] Lab (1st floor, no room number) [place] [address], [facility] [phone] * (ABNORMAL) CBC with platelets and differential (02/19/2023 7:18 PM 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 Pathologist [facility] WBC Count 7.5 4.0 - 11.0 10e3/uL 02/19/2023 7:25 PM DEVELOPMENT AND HOUSING DIRECTOR LABORATORY RBC Count 3.77(L) 3.80 - 5.20 10e6/uL 02/19/2023 7:25 PM DEVELOPMENT AND HOUSING DIRECTOR [facility] Hemoglobin 10.7(L) 11.7 - 15.7 g/dL 02/19/2023 7:25 PM DEVELOPMENT AND HOUSING DIRECTOR [facility] Hematocrit 34.1(L) 35.0 - 47.0 % 02/19/2023 7:25 PM DEVELOPMENT AND HOUSING DIRECTOR [facility] MCV 91 78 - 100 fL 02/19/2023 7:25 PM DEVELOPMENT AND HOUSING DIRECTOR [facility] MCH 28.4 26.5 - 33.0 pg 02/19/2023 7:25 PM DEVELOPMENT AND HOUSING DIRECTOR [facility] MCHC 31.4(L) 31.5 - 36.5 g/dL 02/19/2023 7:25 PM DEVELOPMENT AND HOUSING DIRECTOR [facility] RDW 18.8(H) 10.0 - 15.0 % 02/19/2023 7:25 PM DEVELOPMENT AND HOUSING DIRECTOR [facility] Platelet Count 304 150 - 450 10e3/uL 02/19/2023 7:25 PM DEVELOPMENT AND HOUSING DIRECTOR [facility] % Neutrophils 81 % 02/19/2023 7:25 PM DEVELOPMENT AND HOUSING DIRECTOR [facility] % Lymphocytes 10 % 02/19/2023 7:25 PM DEVELOPMENT AND HOUSING DIRECTOR [facility] % Monocytes 6 % 02/19/2023 7:25 PM DEVELOPMENT AND HOUSING DIRECTOR [facility] % Eosinophils 3 % 02/19/2023 7:25 PM DEVELOPMENT AND HOUSING DIRECTOR [facility] % Basophils 0 % 02/19/2023 7:25 PM DEVELOPMENT AND HOUSING DIRECTOR [facility] % Immature Granulocytes 0 % 02/19/2023 7:25 PM DEVELOPMENT AND HOUSING DIRECTOR [facility] NRBCs per 100 WBC 0 <1 /100 024 7:25 PM DEVELOPMENT AND HOUSING DIRECTOR [facility] Absolute Neutrophils 6.0 1.6 - 8.3 10e3/uL 02/19/2023 7:25 PM DEVELOPMENT AND HOUSING DIRECTOR [facility] Absolute Lymphocytes 0.8 0.8 - 5.3 10e3/uL 02/19/2023 7:25 PM DEVELOPMENT AND HOUSING [employer] [facility] Absolute Monocytes 0.4 0.0 - 1.3 10e3/uL 02/19/2023 7:25 PM DEVELOPMENT AND HOUSING [employer] [facility] Absolute Eosinophils 0.2 0.0 - 0.7 10e3/uL 02/19/2023 7:25 PM DEVELOPMENT AND HOUSING DIRECT[employer] [facility] Absolute Basophils 0.0 0.0 - 0.2 10e3/uL 02/19/2023 7:25 PM DEVELOPMENT AND HOUSING [employer] [facility] Absolute Immature Granulocytes 0.0 <=0.4 10e3/uL 02/19/2023 7:25 PM DEVELOPMENT AND HOUSING DIRECTOR RH LABORATORY Absolute NRBCs 0.0 10e3/uL 02/19/2023 7:25 PM DEVELOPMENT AND HOUSING DIRECTOR LABORATORY Blood BLOOD SPECIMEN / Unknown Venipuncture / Unknown 02/19/2023 7:18 PM DEVELOPMENT AND HOUSING DIRECTOR 02/19/2023 7:22 PM DEVELOPMENT AND HOUSING DIRECTOR Jose F Lozano MD LAB - BLOOD ORDER JOSEFA LABORATORY [facility] Acute Care Lab [address] [facility] Lab (1st floor, no room number) [place] [address], [facility] [phone] * (ABNORMAL) Triglycerides (02/19/2023 7:18 PM DEVELOPMENT AND HOUSING DIRECTOR) Triglycerides 150(H) <150 mg/dL 02/20/2023 3:18 AM DEVELOPMENT AND HOUSING DIRECTOR U LABORATORY Comment: 2-9 years: Normal: ?Less than [...] Unknown Venipuncture / Unknown 02/19/2023 7:18 PM DEVELOPMENT AND HOUSING DIRECTOR 02/19/2023 7:22 PM DEVELOPMENT AND HOUSING DIRECTOR Kai Khan DO LAB - BLOOD ORDERA BLES U LABORATORY [facility] [address] [facility] J [facility], [address] [place] [address], [place] [phone] * (ABNORMAL) Renal panel (12/18/2022 8:45 AM 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 Sodium 135 135 - 145 mmol/L 12/18/2022 9:44 AM [facility] LABORATORY Comment:Reference intervals for this test were updated on 11/06/2022 to more accurately reflect our healthy population. There may be differences in the flagging of prior results with similar values performed with this method. Interpretation of those prior results can be made in the context of the updated reference intervals. Potassium 4.2 3.4 - 5.3 mmol/L 12/18/2022 9:44 AM [facility] LABORATORY Chloride 99 98 - 107 mmol/L 12/18/2022 9:44 AM [facility] LABOR[facility] Carbon Dioxide (CO2) 29 22 - 29 mmol/L 12/18/2022 9:44 AM [facility] LABOR[facility] Anion Gap 7 7 - 15 mmol/L 12/18/2022 9:44 AM [facility] LABOR[facility] Glucose 128(H) 70 - 99 mg/dL 12/18/2022 9:44 AM [facility] LABOR[facility] Urea Nitrogen 17.7 8.0 - 23.0 mg/dL 12/18/2022 9:44 AM [facility] LABOR[facility] Creatinine 2.67(H) 0.51 - 0.95 mg/dL 12/18/2022 9:44 AM [facility] LABOR[facility] GFR Estimate 18(L) >60 mL/min/1. 73m2 12/18/2022 9:44 AM [facility] LABORATORY Calcium 7.6(L) 8.8 - 10.2 mg/dL 12/18/2022 9:44 AM [facility] LABOR[facility] Albumin 2.6(L) 3.5 - 5.2 g/dL 12/18/2022 9:44 AM [facility] LABORATORY Phosphorus 2.3(L) 2.5 - 4.5 mg/dL 12/18/2022 9:44 AM [facility] LABORATORY Blood STRUCTURE OF RIGHT UPPER LIMB / Unknown Venipuncture / Unknown 12/18/2022 8:45 AM DEVELOPMENT AND HOUSING DIRECTOR 12/18/2022 8:50 AM DEVELOPMENT AND HOUSING DIRECTOR David Treviño MD LAB - BLOOD ORDERABL ES LABORATORY [facility] Lab [address] Lab (1st floor, no room number) [place] [address], [facility] [phone] * Helicobacter pylori Antigen Stool (12/17/2022 6:24 PM DEVELOPMENT AND HOUSING DIRECTOR) Helicobacter pylori Antigen Stool Negative Negative 12/18/2022 10:41 AM DEVELOPMENT AND HOUSING DIRECTOR SPECIALTY CORE/PROT/END O Comment:Negative for Helicob acter pylori antigen by enzyme immunoassay. A negative result indicates the absence of H. pylori antigen or that the level of antigen is below the level of detection. Stool RECTAL CONTENTS / Unknown Non-blood Collection / Unknown 12/17/2022 6:24 PM DEVELOPMENT AND HOUSING DIRECTOR 12/17/2022 6:36 PM DEVELOPMENT AND HOUSING DIRECTOR Adama Ramirez MD LAB - STOOLS OR DERABLES SPECIALTY CORE/PROT/ENDO Specialty Core/Prot/Endo [address] [facility] [address] [facility], [address] [place] [address], [facility] [phone] * Vancomycin level (12/17/2022 6:31 AM DEVELOPMENT AND HOUSING DIRECTOR) Only the most recent of7 resultswithin the time period is included. Vancomycin 16.0 ug/mL 12/17/2022 8:27 AM DEVELOPMENT AND HOUSING DIRECTOR LABORATORY Comment: Traditional Dosing Therapeutic Range: Trough 10-15 ug/mL Peak 20-40 ug/mL Critical: Greater than 25.0 ug/mL Blood STRUCTURE OF RIGHT HAND / Unknown Venipuncture / Unknown 12/17/2022 6:31 AM DEVELOPMENT AND HOUSING DIRECTOR 12/17/2022 6:49 AM DEVELOPMENT AND HOUSING DIRECTOR Arsenio Flores DO LAB - BLOOD ORDERAB LES LABORATORY [facility] Lab [address] Lab (1st floor, no room number) [place] [address], [facility] [phone] * (ABNORMAL) Hemoglobin (12/17/2022 6:31 AM DEVELOPMENT AND HOUSING DIRECTOR) Only the most recent of4 resultswithin the time period is included. Pathologist [facility] Hemoglobin 7.1(L) 11.7 - 15.7 g/dL 12/17/2022 6:53 AM DEVELOPMENT AND HOUSING DIRECTOR LABORATORY Blood STRUCTURE OF RIGHT HAND / Unknown Venipuncture / Unknown 12/17/2022 6:31 AM DEVELOPMENT AND HOUSING DIRECTOR 12/17/2022 6:50 AM DEVELOPMENT AND HOUSING DIRECTOR Lisa Ospina DO LAB - BLOOD ORDERABL ES LABORATORY [facility] Lab [address] [facility] Lab (1st floor, no room number) [place] [address], [facility] [phone] * UPPER GI ENDOSCOPY (12/14/2022 11:52 AM CDT) [facility] Upper GI Endoscopy [facility] Patient Name: Malachi Marr ? Procedure Date: [...] verified by the physician, ?the nurse, the field crop ii farmworker and the music sound light technician in ?the procedure room. Mental Status [...] # [id number], Endora # ?[id number], SN # [id number] was introduced through the mouth, ?and advanced [...] Note Initiated On: 12/14/2022 11:52 AM MRN: ?[id number] Procedure Date: ? 12/14/2022 11:52:38 AM Total Procedure Duration: 0 hours 8 minutes 56 seconds Estimated Blood Loss: ? Scope In: 12:35:58 PM Scope Out: 12:44:54 PM RADIOLOGY RESULTS 12/14/2022 11:5 2 AM CDT Adama Ramirez MD PROCEDURES RADIOLOGY RESULTS * Genotype Partial RhD (12/14/2022 5:45 AM CDT) See Scanned Result GENOTYPE PARTIAL RHD-Scanned 01/01/2023 8:12 AM [facility] Blood BLOOD SPECIMEN / Unknown Venipuncture / Unknown 12/14/2022 5:45 AM CDT 12/14/2022 6:02 AM CDT Arsenio Flores DO LAB - BLOOD ORDERAB LES Performing Organization Address City/[facility]/ZIP Co de Phone Number [facility] [address] [place] [address], [facility] [phone] * Transfuse red blood cells (unit) (12/13/2022 [...] UM SPECIALTY CORE/PROT/ENDO UM Specialty Core/Prot/Endo [address] [facility], [address] [place] [address], [facility] [phone] * Extra Blood Bank Purple Top Tube (12/13/2022 5:25 AM CDT) Only the most recent of2 resultswithin the time period is included. Hold Specimen JIC 12/13/2022 6:31 AM CDT RH LABORATORY Blood BLOOD SPECIMEN / Unknown Venipuncture / Unknown 12/13/2022 5:25 AM CDT 12/13/2022 5:25 AM CDT Arsenio Flores DO LAB - BLOOD ORDERAB LES [facility] Acute Care Lab [address] Lab (1st floor, no room number) [place] [address], [facility] [phone] * Morphology Tracking (12/13/2022 5:18 AM CDT) Blood STRUCTURE OF RIGHT HAND / Unknown Venipuncture / Unknown 12/13/2022 5:18 AM CDT 12/13/2022 5:26 AM CDT Jason Tapia MD LAB - BLOOD ORD FINESSE Performing Organization Address City/[facility]/ZIP Co de Phone Number [facility] Lab [address] Lab (1st floor, no room number) [place] [address], [facility] [phone] * (ABNORMAL) Reticulocyte count (12/13/2022 5:18 AM CDT) Only the most recent of2 resultswithin the time period is included. % Reticulocyte 7.1(H) 0.5 - 2.0 % 12/13/2022 6:12 AM CDT RH LABORATORY Absolute Reticulocyte 0.077 0.025 - 0.095 10e6/uL 12/13/2022 6:12 AM CDT RH LABORATORY Blood STRUCTURE OF RIGHT HAND / Unknown Venipuncture / Unknown 12/13/2022 5:18 AM CDT 12/13/2022 5:26 AM CDT Jason Tapia MD LAB - BLOOD ORD ERABLES [facility] Lab [address] Lab (1st floor, no room number) [place] [address], [facility] [phone] * Lactic acid whole blood (12/13/2022 5:18 AM CDT) Lactic Acid 0.9 0.7 - 2.0 mmol/L 12/13/2022 5:47 AM CDT LABORATORY Blood STRUCTURE OF RIGHT HAND / Unknown Venipuncture / Unknown 12/13/2022 5:18 AM CDT 12/13/2022 5:24 AM CDT Jason Tapia MD LAB - BLOOD ORD ERABLES LABORATORY [facility] [address] [facility] (1st floor, no room number) [place] [address], [facility] [phone] * Folate (12/13/2022 5:18 AM CDT) Pathologist [facility] Folic Acid 10.3 4.6 - 34.8 ng/mL 12/13/2022 9:11 AM CDT LABORATORY Blood STRUCTURE OF RIGHT HAND / Unknown Venipuncture / Unknown 12/13/2022 5:18 AM CDT 12/13/2022 5:26 AM CDT Arsenio Flores DO LAB - BLOOD ORDERAB LES U LABORATORY [facility] [address] [facility], [address] [place] [address], [place] [phone] * Bld morphology pathology review (12/13/2022 5:18 AM CDT) Pathologist [facility] Final Diagnosis Peripheral blood, morphology: - Marked [...] Clinical correlation is recommended. 12/13/2022 10:32 AM [facility] PATHOLOGY LAB Peripheral Smear A microscopic examination is performed. 12/13/2022 10:32 AM [facility] PATHOLOGY LAB Peripheral Hematologic Data Latest Reference [...] than 50: Marked thrombocytopenia 12/13/2022 10:32 AM [facility] PATHOLOGY LAB Performing Labs The technical component of this testing was completed at [facility], [facility] and [facility] 12/13/2022 10:32 AM T [facility] PATHOLOGY LAB Blood BLOOD SPECIMEN / Unknown [...] report and are necessary for interpretation. Jason LU - RONNY ALLEN [facility] PATHOLOGY LAB [facility] Pathology Lab [address] 1[address], [address] [place] [address] * Other Laboratory; [facility][Note 3]; Reference Lab Workup (Laboratory Miscellaneous Order) (12/13/2022 1:49 AM CDT) See Scanned Result LABORATORY MISCELLANEOUS ORDER-Scanned 12/24/2022 8:35 AM DEVELOPMENT AND HOUSING DIRECTOR MISCELLANEOUS TESTING Blood BLOOD SPECIMEN / Unknown [...] CDT EXAM: XR CHEST 2 VIEWS LOCATION: [facility] DATE: 12/13/2022 INDICATION: cough COMPARISON: 11/29/2022 Procedure Note Rajan Card MD - 12/13/2022 EXAM: XR CHEST 2 VIEWS LOCATION: [facility] DATE: 12/13/2022 INDICATION: cough COMPARISON: 11/29/2022 IMPRESSION: Heart size within normal limits. Calcified aortic arch. Mildstreaky left basilar atelectasis or infiltrate. The right lung is clear.No pneumothorax. Jason Tapia MD IMG DIAGNOSTIC IMAGING ORDERABLES * CTA Abdomen Pelvis with Contrast (12/13/2022 1:10 AM CDT) Anatomical Region Laterality Modality Abdomen/Pelvis, SUBRAD IR ND OCEDURE, UMP CT CTA, RAD CT Computed [...] EXAM: CTA ABDOMEN PELVIS WITH CONTRAST LOCATION: [facility] DATE: 12/13/2022 INDICATION: acute on chronic anemia, melena, please do GI bleed protocol. ??ESRD, on hemodialysis, ??Recent removal of peritoneal dialysis catheter COMPARISON: 11/28/2022 TECHNIQUE: CT angiogram abdomen pelvis during arterial phase of injection of IV contrast. 2D and 3D MIP reconstructions were performed by the apparatus engineering technologist. Dose reduction techniques were used. CONTRAST: [...] EXAM: CTA ABDOMEN PELVIS WITH CONTRAST LOCATION: [facility] DATE: 12/13/2022 INDICATION: acute on chronic anemia, [...] of2 resultswithin the time period is included. Culture No Growth 12/18/2022 1:16 AM DEVELOPMENT AND HOUSING DIRECTOR UU IDD LABORATORY Blood STRUCTURE OF RIGHT HAND / Unknown Venipuncture / Unknown 12/12/2022 11:49 PM CDT 12/13/2022 12:08 AM CDT Jason Tapia MD LAB - MICRO GEN ERAL ORDERABLES [facility] IDD LABORATORY [facility] Inf. Diseases Diag. Lab [address] [facility], [address] [place] [address], [facility] [phone] * EKG 12 lead (12/12/2022 11:09 PM CDT) Only the most recent of2 resultswithin the time period is included. Systolic Blood Pressure mmHg RADIOLOGY RESULTS Diastolic Blood Pressure mmHg RADIOLOGY RESULTS Ventricular Rate 72 BPM RAD IOLOGY RESULTS Atrial Rate 72 BPM RADIOLOG Y RESULTS ND Interval 198 ms RADIOLOG Y RESULTS QRS Duration 80 ms RADIOLO GY RESULTS QT 322 ms RADIOLOGY RESULTS QTc 352 ms RADIOLOGY RESULTS P [place] 75 degrees RADIOLOGY RESULTS R AXIS 44 degrees RADIOLOGY RESULTS T [place] -85 degrees RADIOLOGY RESULTS Interpretation ECG Sinus [...] of3 resultswithin the time period is included. Blood Component Type Red Blood Cells RH BLOOD BANK Product Code [id number] RH BLOO D BANK Unit Status Released RH BLOOD BANK Unit Number [id number] RH B LOOD BANK CROSSMATCH COMPATIBLE RH BLOOD BANK CODING SYSTEM [id number] RH BLO OD BANK UNIT ABO/RH O- RH BLOOD BANK UNIT TYPE ISBT 9500 RH BL OOD BANK 12/12/2022 11:0 7 PM CDT Jason Tapia MD BLOOD BANK PROD UCT ORDERABLES RH BLOOD BANK [address] [place] [address] * (ABNORMAL) iStat Gases (lactate) venous, POCT (12/12/2022 11:05 PM CDT) Lactic Acid POCT 2.4(H) <=2.0 mmol/L 12/12/2022 [...] LAB - BEAKER PO CT LABORATORY POC [facility] Lab [address] [facility] Lab (1st floor, no room number) [place] [address], [facility] [phone] * Stool: occult blood (12/12/2022 11:03 PM CDT) Pathologist [facility] Occult Blood Negative Negative JENNIFER 12/12/2022 11:32 PM CDT LABORATORY Stool RECTAL CONTENTS / Unknown Non-blood Collection / Unknown 12/12/2022 11:03 PM CDT 12/12/2022 11:11 PM CDT Jason Tapia MD LAB - STOOLS OR DERABLES Performing Organization Address City/[facility]/ZIP Co de Phone Number [facility] Lab [address] Lab (1st floor, no room number) [place] [address], [facility] [phone] * Ammonia (12/12/2022 11:02 PM CDT) Pathologist [facility] Ammonia 19 11 - 51 umol/L 12/12/2022 11:35 PM CDT LABORATORY Blood BLOOD SPECIMEN / Unknown Venipuncture / Unknown 12/12/2022 11:02 PM CDT 12/12/2022 11:09 PM CDT Jason Tapia MD LAB - BLOOD ORD ERABLES [facility] Lab [address] [facility] Lab (1st floor, no room number) [place] [id number], [facility] [phone] * (ABNORMAL) Adult Type and Screen (12/12/2022 10:42 PM CDT) ABO/RH(D) O POS 12/12/2022 10:27 PM CDT BLOOD BANK Antibody Screen Positive(A) Negative 12/13/19 10:27 PM CDT RH BLOOD BANK Comment:Delay in availabilit y of Red Cells called to [facility] 12.12.22 SPECIMEN EXPIRATION DATE [id number] 12/12/2022 10:27 PM CDT RH BLOOD BANK Blood BLOOD SPECIMEN / Unknown Venipuncture / Unknown 12/12/2022 10:42 PM CDT 12/12/2022 10:45 PM CDT Jason Tapia MD LAB - BLOOD BAN K TEST ORDER BLOOD BANK [address] [place] [address], [facility] * Extra Heparinized Syringe (12/12/2022 9:49 PM CDT) Hold Specimen [facility] 12/12/2022 11:02 PM CDT RH LABORATORY Blood, venous BLOOD SPECIMEN / Unknown Venipuncture / Unknown 12/12/2022 9:49 PM CDT 12/12/2022 9:57 PM CDT Jason Tapia MD LAB - BLOOD ORD ERABLES [facility] Acute Care Lab [address] Lab (1st floor, no room number) [place] [address], [facility] [phone] * Extra Blood Culture Bottle (12/12/2022 9:49 PM CDT) Hold Specimen [facility] 12/12/2022 11:02 PM CDT RH LABORATORY Blood BLOOD SPECIMEN / Unknown Venipuncture / Unknown 12/12/2022 9:49 PM CDT 12/12/2022 9:57 PM CDT Jason Tapia MD LAB - BLOOD ORD ERABLES [facility] Acute Care Lab [address] Lab (1st floor, no room number) [place] [address], [facility] [phone] * Extra Purple Top Tube (12/12/2022 9:49 PM CDT) Hold Specimen [facility] 12/12/2022 11:02 PM CDT RH LABORATORY Blood BLOOD SPECIMEN / Unknown Venipuncture / Unknown 12/12/2022 9:49 PM CDT 12/12/2022 9:57 PM CDT Jason Tapia MD LAB - BLOOD ORD ERABLES [facility] Care Lab [address] Lab (1st floor, no room number) [place] [address], [facility] [phone] * Extra Green Top ([place] Heparin) Tube (12/12/2022 9:49 PM CDT) Hold Specimen [facility] 12/12/2022 11:02 PM CDT LABORATORY Blood BLOOD SPECIMEN / Unknown Venipuncture / Unknown 12/12/2022 9:49 PM CDT 12/12/2022 9:57 PM CDT Jason Tapia MD LAB - BLOOD ORD FINESSE [facility] Lab [address] Lab (1st floor, no room number) [place] [address], [facility] [phone] * (ABNORMAL) Lactate Dehydrogenase (12/12/2022 9:49 PM CDT) Pathologist [facility] Lactate Dehydrogenase 290(H) 0 - 250 U/L 12/13/2022 3:49 AM CDT UU LABORATORY Blood BLOOD SPECIMEN / Unknown Venipuncture / Unknown 12/12/2022 9:49 PM CDT 12/12/2022 9:57 PM CDT Arsenio Flores DO LAB - BLOOD ORDERAB MARYURI UU LABORATORY [facility] [address] [facility], [address] [place] [address], [facility] [phone] * (ABNORMAL) Troponin T, High Sensitivity (12/12/2022 9:49 PM CDT) Only the most recent of3 resultswithin the time period is included. Troponin T, High Sensitivity 82(H) <=14 ng/L 12/12/2022 11:33 PM CDT RH LABORATORY Comment: Either a High Sensitivity Troponin [...] MD LAB - BLOOD ORD ERABLES LABORATORY [facility] Acute Care Lab [address] Lab (1st floor, no room number) [place] [address], [place] [phone] * (ABNORMAL) TSH with free T4 reflex (12/12/2022 9:49 PM CDT) TSH 5.44(H) 0.30 - 4.20 uIU/mL 12/12/2022 11:33 PM CDT LABORATORY Blood BLOOD SPECIMEN / Unknown Venipuncture / Unknown 12/12/2022 9:49 PM CDT 12/12/2022 9:57 PM CDT Jason Tapia MD LAB - BLOOD ORD ERABLES LABORATORY [facility] Acute Care Lab [address] Lab (1st floor, no room number) [place] [address], [facility] [phone] * (ABNORMAL) TSH (12/12/2022 9:49 PM CDT) Pathologist [facility] TSH 5.18(H) 0.30 - 4.20 uIU/mL 12/13/2022 5:43 AM CDT UU LABORATORY Blood BLOOD SPECIMEN / Unknown Venipuncture / Unknown 12/12/2022 9:49 PM CDT 12/12/2022 9:57 PM CDT Arsenio Flores DO LAB - BLOOD ORDERAB LES UU LABORATORY [facility] [address] [facility], [address] [place] [address], [facility] [phone] * T4 free (12/12/2022 9:49 PM CDT) Pathologist [facility] Free T4 1.14 0.90 - 1.70 ng/dL 12/12/2022 11:55 PM CDT LABORATORY Blood BLOOD SPECIMEN / Unknown Venipuncture / Unknown 12/12/2022 9:49 PM CDT 12/12/2022 9:57 PM CDT Jason Tapia MD LAB - BLOOD ORD ERABLES LABORATORY [facility] Acute Care Lab [address] Lab (1st floor, no room number) [place] [address], [place] [phone] * Magnesium (12/12/2022 9:49 PM CDT) Only the most recent of2 resultswithin the time period is included. [facility] Magnesium 2.0 1.7 - 2.3 mg/dL 12/12/2022 11:26 PM CDT RH LABORATORY Blood BLOOD SPECIMEN / Unknown Venipuncture / Unknown 12/12/2022 9:49 PM CDT 12/12/2022 9:57 PM CDT Jason Tapia MD LAB - BLOOD ORD ERABLES Performing Organization Address City/[facility]/ZIP Co de Phone Number [facility] Acute Care Lab [address] Lab (1st floor, no room number) [place] [phone], [facility] [phone] * (ABNORMAL) Iron and iron binding capacity (12/12/2022 9:49 PM CDT) Iron 129 37 - 145 ug/dL 12/13/2022 [...] Tapia MD LAB - BLOOD ORD ERABLES Performing Organization Address [facility]/ZIP Co de Phone Number [facility] Lab [address] Lab (1st floor, no room number) [place] [phone], [facility] [phone] * (ABNORMAL) Ferritin (12/12/2022 9:49 PM CDT) Ferritin 6,492(H) 11 - 328 ng/mL 12/13/2022 3:48 AM CDT UU LABORATORY Blood BLOOD SPECIMEN / Unknown Venipuncture / Unknown 12/12/2022 9:49 PM CDT 12/12/2022 9:57 PM CDT Jason Tapia MD LAB - BLOOD ORD ERABLES UU LABORATORY [facility] [address] [facility], [address] [place] [address], [facility] [phone] * (ABNORMAL) Blood gas venous and oxyhgb [...] LAB - BLOOD ORD ERABLES RH LABORATORY [facility] Care Lab [address] Lab (1st floor, no room number) [place] [address], [facility] [phone] * Vitamin B12 (12/12/2022 9:49 PM CDT) Vitamin B12 1,105 232 - 1,245 pg/mL 12/13/2022 3:21 AM CDT UU LABORATORY Blood BLOOD SPECIMEN / Unknown Venipuncture / Unknown 12/12/2022 9:49 PM CDT 12/12/2022 9:57 PM CDT Arsenio Tesfaye Mark DO LAB - BLOOD ORDERAB LES LABORATORY [facility] [address] [facility], [address] [place] [address], [facility] [phone] * Potassium (12/01/2022 9:56 PM CDT) Only the most recent of3 resultswithin the time period is included. Potassium 4.9 3.4 - 5.3 mmol/L 12/01/2022 10:54 PM CDT RH LABORATORY Blood STRUCTURE OF RIGHT UPPER LIMB / Unknown Venipuncture / Unknown 12/01/2022 9:56 PM CDT 12/01/2022 10:05 PM CDT Nidia Yanez DO LAB - BLOOD ORDER JOSEFA LABORATORY [facility] Acute Care Lab [address] [facility] Lab (1st floor, no room number) [place] [address], [facility] [phone] * Extra Blue Top Tube (LAB USE ONLY) (12/01/2022 7:35 AM CDT) Only the most recent of2 resultswithin the time period is included. Hold Specimen JIC 12/01/2022 9:02 AM CDT LABORATORY Blood BLOOD SPECIMEN / Unknown Venipuncture / Unknown 12/01/2022 7:35 AM CDT 12/01/2022 7:48 AM CDT Nidia Yanez DO LAB - BLOOD ORDER JOSEFA LABORATORY [facility] Care Lab [address] Lab (1st floor, no room number) [place] [address], [facility] [phone] * Differential Body Fluid (11/30/2022 7:11 PM [...] PM CDT 11/30/2022 7:18 PM CDT Narrative RH LABORATORY - 11/30/2022 11:22 PM CDT No reference ranges have been established. This result should be interpreted in the context of the patient's clinical condition and compared to simultaneous measurement in the patient's blood. Michele Chaudhary MD LAB - BODY FLUIDS OR DERABLES LABORATORY [facility] Acute Care Lab [address] [facility] Lab (1st floor, no room number) [place] [address], [facility] [phone] * Cell Count Body Fluid (11/30/2022 7:11 [...] PM CDT 11/30/2022 7:18 PM CDT Narrative RH LABORATORY - 11/30/2022 11:21 PM CDT No reference ranges have been established. ??This result should be interpreted in the context of the patient's clinical condition and compared to simultaneous measurement in the patient's blood. ?? Michele Chaudhary MD LAB - BODY FLUIDS OR DERABLES [facility] Acute Care Lab [address] Lab (1st floor, no room number) [place] [address], [place] [phone] * Peritoneal Fluid Aerobic Bacterial Culture Routine (11/30/2022 7:11 PM CDT) Only the most recent of4 resultswithin the time period is included. Culture No Growth JENNIFER 12/05/2022 7:27 AM CDT [facility] LABORATORY Peritoneal Fluid SPECIMEN FROM PERITONEUM / Unknown Non-blood Collection / Unknown 11/30/2022 7:11 PM CDT 11/30/2022 7:18 PM CDT Michele Chaudhary MD LAB - MICRO GENERAL ORDERABLES Performing Organization Address City/[facility]/ZIP Co de Phone Number [facility] LABORATORY [facility] Inf. Diseases Diag. Lab [address] [facility], [address] [address], [place] [phone] * Gram stain (11/30/2022 7:11 PM CDT) [...] - MICRO GENERAL ORDERABLES [facility] Inf. Diseases Diag. Lab [address] [facility], [address] [place] [id number], [place] [phone] * Extra Red Top Tube (LAB USE ONLY) (11/30/2022 7:23 AM CDT) Hold Specimen JIC 11/30/2022 8:46 AM CDT LABORATORY Blood TOPOGRAPHY UNKNOWN / Unknown Venipuncture / Unknown 11/30/2022 7:23 AM CDT 11/30/2022 7:39 AM CDT Michele Chaudhary MD LAB - BLOOD ORDERABL ES LABORATORY [facility] Acute Care Lab [address] Lab (1st floor, no room number) [place] [address], [facility] [phone] * XR Chest Port 1 View (11/29/2022 4:45 PM CDT) Only the most recent of2 resultswithin the time period is included. Anatomical Region Laterality Modality Chest Digital Radiogra phy 11/29/2022 4:45 PM CDT Impressions 11/29/2022 8:30 PM CDT IMPRESSION: Negative chest. Narrative 11/29/2022 8:30 PM CDT EXAM: XR CHEST PORT 1 VIEW LOCATION: [facility] DATE: 11/29/2022 INDICATION: shortness of breath COMPARISON: Chest radiograph 11/25/2022. Procedure Note Robin Abreu MD - 11/29/2022 EXAM: XR CHEST PORT 1 VIEW LOCATION: [facility] DATE: 11/29/2022 INDICATION: shortness of breath COMPARISON: Chest radiograph 11/25/2022. IMPRESSION: Negative chest. Rohini Bradford MD IMG DIAGNOSTIC IMAGI NG ORDERABLES * ECHO COMPLETE (11/29/2022 9:58 AM CDT) LVEF 75-80% CARDIOLOGY RESULTS Anatomical Region Laterality Modality Echocardiography 11/29/2022 9:19 AM CDT Narrative 11/29/2022 10:40 AM CDT [id number]^[email or web address]^SUSHANT^Zeinab [facility] Echocardiography Laboratory [address] [place] [address] Name: MALACHI MARR : 1945 Study Date: 11/29/2022 09:19 AM Age: 77 yrs Gender: Female [facility] Reason For Study: SOB Ordering Physician: STORMY [...] Procedure Note Michael Atwood MD - 11/29/2022 [id number]^RAMA^JOSHUA [facility] Echocardiography Laboratory [address] [place] [id number] Name: MALACHI MARR : 1945 Study Date: 11/29/2022 09:19 AM Age: 77 yrs Gender: Female [facility] Reason For Study: SOB Ordering Physician: STORMY [...] [place] 11/29/2022 10:40 AM Stormy Ontiveros MD, CV ECHO ORDERABLES * (ABNORMAL) Respiratory Aerobic [...] MICRO GENERA L ORDERABLES [facility] Inf. Diseases Diag. Lab [address] [facility], [address] [place] [address], [facility] [phone] * (ABNORMAL) Glucose (11/29/2022 6:28 AM CDT) [facility] Signature Glucose 66(L) 70 - 99 mg/dL 11/29/2022 7:07 AM CDT [facility] LAB[facility]ATORY Blood STRUCTURE OF RIGHT HAND / Unknown Venipuncture / Unknown 11/29/2022 6:28 AM CDT 11/29/2022 6:40 AM CDT Rohini Bradford MD LAB - BLOOD ORDERABL ES LABORATORY [facility] Acute Care Lab [address] [facility] Lab (1st floor, no room number) [place] [address], [facility] [phone] * (ABNORMAL) Procalcitonin (11/29/2022 2:13 AM CDT) [...] Stormy Ontiveros MD, MD LAB - BLOOD MAMIA BLEVivek Performing Organization Address City/[facility]/ZIP Co de Phone Number [facility] Acute Care Lab [address] Lab (1st floor, no room number) [place] [address], [facility] [phone] * (ABNORMAL) Nt probnp inpatient (11/29/2022 2:13 AM CDT) [facility] N terminal Pro BNP Inpatient 2,017(H) 0 [...] Stormy Ontiveros MD, MD LAB - BLOOD MAMIA BLEVivek Performing Organization Address City/[facility]/ZIP Co de Phone Number [facility] Acute Care Lab [address] Lab (1st floor, no room number) [place] [address], [place] [phone] * LAB RESULT - HIM SCAN (11/28/2022 [...] CDT 11/25/2022 6:35 PM CDT Lela Phelps APRN [facility] LAB - MICRO GENERA L ORDERABLES [facility] Inf. Diseases Diag. Lab [address] [facility], [address] [place] [address], [facility] [phone] * (ABNORMAL) Phosphorus (11/24/2022 10:09 PM CDT) Phosphorus 5.4(H) 2.5 - 4.5 mg/dL 11/24/2022 10:40 PM CDT [facility] Blood BLOOD SPECIMEN / Unknown Venipuncture / Unknown 11/24/2022 10:09 PM CDT 11/24/2022 10:22 PM CDT Arsenio Mc MD LAB - BLOOD ORDERAB LES [facility] Lab [address] [place] [address], [facility] [phone] from Last 3 Months Advance Directives For more information, please contact: [phone] Latest Code Status on File Code Status [...] with patient/ legal decision maker Care Teams Commercial Producer Relationship Specialty Start Date End Date Tyrell Schneider [address] [place] [address] PCP - General Family Medicine 02/19/23
--- OUTSIDE RECORDS SUMMARY | 2023-02-22 16:12 | XMS_ITS | Encounter Summary ---
Author Name Unknown Organization [facility] Address [address] [place] [id number] Care Team Providers Care Insole Cementer Name Role Phone Tyrell Schneider Primary Care Provider [phone] Reason for Visit * Reason Comments Abdominal Pain * Auth/Cert (Routine) Specialty Diagnoses / Procedures Referred By Contmagaly t Referred To Contact EMERGENCY MEDICINE Diagnoses Acute pancreatitis, unspecified complication status, unspecified pancreatitis type Acute pancreatitis, unspecified complication status, unspecified pancreatitis type Emergency Dept [address] [place] [address] Referral ID Status Reason Start Date Expiration Date Visits Re quested Visits Authorized [id number] 1 1 Encounter Details Date Type Department Care Team (Late st Contact Info) Description 02/19/2023 6:25 PM [facility] - 02/21/2023 5:11 PM [facility] Emergency [facility] Observation Dept [address] [place] [address] Jose F Lozano MD [facility] [address] [place], [place] [id number] Kai Khan, DO [address] [place], [place] [id number] Arsenio Oviedo MD [facility] [address] [place], [place] [id number] Eva Jackson MD [facility] [address] [place], [place] [address] Joseph Jeffers MD [facility] [address] [place], [place] [phone] Constipation, unspecified constipation type (Primary Dx); Acute pancreatitis, unspecified complication status, unspecified pancreatitis type Discharge Disposition: Home or Self Care Social History Tobacco Use Types Packs/Day Years Used Date Smoking Tobacco: Never Assessed Adolescent Education Answer Date Record ed Getting School Help Needed Not on file 11/24 Sex and Gender Information Value Date Recorded Sex Assigned at Not on file Gender Identity Female 11/24/2022 4:30 PM CDT Sexual Orientation Not on file documented as of this encounter Last Filed Vital Signs Vital Sign Reading Time Taken Comments Blood Pressure 166/77 02/21/2023 3:58 PM BIOCHEMIST Pulse 64 02/21/2023 3:58 PM BIOCHEMIST Temperature 36.9 ??C (98.4 ??F) 02/21/2023 3:58 PM CS T Respiratory Rate 18 02/21/2023 3:58 PM BIOCHEMIST Oxygen Saturation 99% 02/21/2023 3:58 PM BIOCHEMIST Inhaled Oxygen Concentration - - Weight 40.8 kg (90 lb) 02/20/2023 8:47 PM BIOCHEMIST Height - - Body Mass Index 17.01 12/13/2022 3:15 AM CDT documented in this encounter Discharge Summaries * Huey Shwa PA-C - 02/21/2023 3:53 PM CST [facility] Hospitalist Discharge Summary Date of Admission: 02/19/2023 Date of Discharge: 02/21/2023 Discharging Provider: HUEY Shaw PA-C Discharge Service: Hospitalist Service Discharge Diagnoses Epigastric pain Constipation Follow-ups Needed After Discharge Follow up with primary care provider, TYRELL SCHNEIDER, within 7 days for hospital follow- up. No follow up labs or test are needed. Discharge Disposition Discharged to home Condition at discharge: Stable Hospital Course Maricruz Vanegas is a 77 year old female with PMHx of ESRD, T2DM, HTN, chronic pain, tobacco use disorder, COPD, recent COVID infection, and recent hospitalization for corynebacterium peritonitis requiring removal of PD catheter and initiation of HD, who was admitted on 02/19/2023 with acute pancreatitis. Assumed patient care today. Patient is doing well and had complete resolution of her upper abdominal pain. Was able to fully advance her diet without any recurrence of her pain, nausea or vomiting. Patient had 2 large BMs after stool softeners/laxatives. I suspect her abdominal pain was likely due to a large stool burden that was seen on CT imaging. It is possible she had mild acute pancreatitis given her abdominal pain and elevated lipase but she does not have any risk factors for pancreatitis. Social work was consulted to help with transportation back to her home in [place]. Educated patient on return precautions and all questions were answered prior to discharge. Abdominal pain Possible acute pancreatitis Presented with 3 days of abdominal pain. Lipase elevated at 394. No findings on CT to suggest pancreatitis or other etiology. Did show a large amount of stool. Has not had a BM in days. Possible thatthis is contributing. Difficult to determine if pancreatitis is also present. Lipase is downtrending and no evidence on CT, but pain is in upper abdomen and lipase still remains abnormal. Will continue treatment for pancreatitis, in addition to constipation as below. Constipation/obstipation Large amount of stool noted on CT scan. - bisacodyl suppository - senna BID PRN ESRD on HD Dialyzes MWF. - Nephrology consult - HD today Tobacco use disorder - Nicotine patch and nicotine gum T2DM - MDSSI COPD - Albuterol inhaler PRN HTN - resume PRESCRIPTION BENEFIT SPECIALIST amlodipine, clonidine, lasix, and labetalol; IV hydralazine PRN GERD - IV PPI while NPO Hyponatremia - mild, monitor Consultations This Hospital Stay NEPHROLOGY IP CONSULT CARE MANAGEMENT / SOCIAL WORK IP CONSULT Code Status Full Code Time Spent on this Encounter I, HUEY Shaw PA-C, personally saw the patient today and spent less than or equal to 30 minutesdischarging this patient. HUEY Shaw PA-C [facility] [address] [place] [id number] Physical Exam Vital Signs: Temp: 97.3 ??F (36.3 ??C) Temp src: Oral BP: 136/82 Pulse: 70 Resp: 18 SpO2: 100 % O2 Device: None (Room air) Weight: 90 lbs 0 oz GENERAL: Alert, Comfortable, No acute distress. Sitting up in chair. PSYCH: pleasant, oriented. HEART: Normal S1, S2 with no murmur, RRR LUNGS: Normal Respiratory effort. Clear to auscultation bilaterally with no wheezing, rales or ronchi. ABDOMEN: Soft, non-tender, non distended. No peritoneal signs. EXTREMITIES: No pedal edema SKIN: Warm, dry to touch Primary Care Physician TYRELL SCHNEIDER Discharge Orders Reason for your hospital stay You were admitted to the hospital for upper abdominal pain. You had imaging of your abdomen that showed a large amount of stool due to constipation and no other acute findings. Your lipase was also elevated raising question for possible pancreatitis. You were given IV fluids and stool softeners. Itis reassuring that your pain has improved suspect this was more likely due to the constipation. 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 Please follow-up with your lan specialist tomorrow for dialysis as previously scheduled. Follow-up and recommended labs and tests Follow up with primary care provider, TYRELL SCHNEIDER, within 7 days for hospital follow- up. No follow up labs or test are needed. Activity Your activity upon discharge: activity as tolerated Diet Follow this diet upon discharge: Regular Significant Results and Procedures Results for orders placed or performed during the hospital encounter of 02/19/23 CT Abdomen Pelvis w/o Contrast Narrative EXAM: CT ABDOMEN PELVIS W/O CONTRAST LOCATION: [facility] DATE: 02/19/2023 INDICATION: ruq epigastric abd pain [...] inguinal hernia unchanged. No suspicious bony lesion. Impression IMPRESSION: 1. No definite etiology for symptoms. Abundant stool now seen throughout right hemicolon but no obstruction or inflammatory focus evident. Discharge Medications Current Discharge Medication List START taking these medications Details senna-docusate (SENOKOT-S/PERICOLACE) 8.6-50 MG tablet Take 1 tablet by mouth daily as needed for constipation Associated Diagnoses: Constipation, unspecified constipation type CONTINUE these medications which have NOT CHANGED Details albuterol (PROVENTIL) (2.5 MG/3ML) 0.083% neb solution Take 2.5 mg by nebulization every 4 hours asneeded for shortness of breath amLODIPine (NORVASC) 10 MG tablet Take 10 mg by mouth 2 times daily aspirin 81 MG EC tablet Take 81 mg by mouth every evening carboxymethylcellulose PF (REFRESH PLUS) 0.5 % ophthalmic solution Place 1 drop into both eyes 2 times daily cetirizine (ZYRTEC) 10 MG tablet Take 10 mg by mouth every evening !! cloNIDine (CATAPRES) 0.1 MG tablet Take 0.3 mg by mouth every evening !! cloNIDine (CATAPRES) 0.1 MG tablet Take 0.2 mg by mouth every morning erythromycin (ROMYCIN) 5 MG/GM ophthalmic ointment Place Into the left eye 4 times daily furosemide (LASIX) 40 MG tablet Take 40 mg by mouth daily glipiZIDE (GLUCOTROL XL) 10 MG 24 hr tablet Take 20 mg by mouth every morning ipratropium - albuterol 0.5 mg/2.5 mg/3 mL (DUONEB) 0.5-2.5 (3) MG/3ML neb solution Inhale 3 mLs into the lungs every 6 hours as needed for shortness of breath labetalol (NORMODYNE) 300 MG tablet Take 600 mg by mouth 2 times daily ejmxhham-rckbvmotn-jppORWAVilavt (MAXITROL) 3.5-58975-5.[address] 0.25 inches Into the left eye 4 times daily nicotine (NICODERM CQ) 21 MG/24HR [address] 1 patch onto the skin every 24 hours oxyCODONE (ROXICODONE) 5 MG tablet Take 10 mg by mouth at bedtime pantoprazole (PROTONIX) 40 MG EC tablet Take 1 tablet (40 mg) by mouth 2 times daily (before meals) Qty: 60 tablet, Refills: 0 Associated Diagnoses: Anemia, unspecified type polyethylene glycol (MIRALAX) 17 g packet Take 1 packet by mouth every 3 days repaglinide (PRANDIN) 1 MG tablet Take 1 tablet by mouth 3 times daily (before meals) senna (SENOKOT) 8.6 MG tablet Take 1 tablet by mouth every 3 days sorbitol 70 % SOLN solution Take 30 mLs by mouth every 3 days triamcinolone (KENALOG) 0.1 % external cream Apply topically daily as needed for irritation umeclidinium (INCRUSE ELLIPTA) 62.5 MCG/ACT inhaler Inhale 1 puff into the lungs daily Qty: 7 each, Refills: 0 Associated Diagnoses: Chronic obstructive pulmonary disease, unspecified COPD type (H) multivitamin RENAL (RENAVITE RX/NEPHROVITE) 1 tablet tablet Take 1 tablet by mouth daily !! - Potential duplicate medications found. Please discuss with provider. Allergies Allergies Allergen Reactions Blood Transfusion Related (Informational Only) Other (See Comments) Patient has a history of a clinically significant antibody against RBC antigens. A delay in compatible RBCs may occur. Cats Shortness Of Breath Atorvastatin Hives, Muscle Pain (Myalgia) and Other (See Comments) Other Reaction(s): Back Pain bumps Cat Hair Extract Hives Dog Epithelium Allergy Skin Test Itching Sneezing Sneezing Dulaglutide Nausea and Vomiting Nausea and vomiting on 1.5mg (questionable!!), ok on 0.75mg. Gatifloxacin Nausea and Nausea and Vomiting Gemfibrozil Itching and Other (See Comments) itching Losartan Itching itching Oxycodone Nausea and Vomiting Pravastatin Muscle Pain (Myalgia) and Other (See Comments) Other Reaction(s): Back Pain Simvastatin Other (See Comments) Other Reaction(s): Back Pain Leg pain Tolerating every other day. Tetracycline Other (See Comments) bumps Ampicillin Hives and Rash hives Atenolol Hives and Rash Fish Oil Rash and Other (See Comments) Hydrochlorothiazide Other (See Comments) and Itching bumps pt had significant pruritic rash pt had significant pruritic rash Lisinopril Other (See Comments) and Rash bumps Lisinopril-Hydrochlorothiazide Rash Niacin Rash and Itching itch Farrell Trees Rash Pioglitazone Rash Itchy rash HEMIST documented in this encounter Medications at Time of Discharge Medication Sig Dispensed Refills Start Date End Date albuterol (PROVENTIL) (2.5 MG/3ML) 0.083% neb solution Take 2.5 mg by nebulization every 4 hours as needed for shortness of breath 0 09/10/2022 amLODIPine (NORVASC) 10 MG tablet Take 10 mg by mouth 2 times daily 0 11/14/2022 aspirin 81 MG EC tablet Take 81 mg by mouth every evening 0 carboxymethylcellulose PF (REFRESH PLUS) 0.5 % ophthalmic solution Place 1 drop into both eyes 2 times daily 0 cetirizine (ZYRTEC) 10 MG tablet Take 10 mg by mouth every evening 0 cloNIDine (CATAPRES) 0.1 MG tablet Take 0.3 mg by mouth every evening 0 cloNIDine (CATAPRES) 0.1 MG tablet Take 0.2 mg by mouth every morning 0 06/14/2021 erythromycin (ROMYCIN) 5 MG/GM ophthalmic ointment Place Into the left eye 4 times daily 0 09/25/2022 furosemide (LASIX) 40 MG tablet Take 40 mg by mouth daily 0 glipiZIDE (GLUCOTROL XL) 10 MG 24 hr tablet Take 20 mg by mouth every morning 0 11/14/2022 ipratropium - albuterol 0.5 mg/2.5 mg/3 mL (DUONEB) 0.5-2.5 (3) MG/3ML neb solution Inhale 3 mLs into the lungs every 6 hours as needed for shortness of breath 0 12/13/2020 labetalol (NORMODYNE) 300 MG tablet Take 600 mg by mouth 2 times daily 0 03/01/2022 multivitamin RENAL (RENAVITE RX/NEPHROVITE) 1 tablet tablet Take 1 tablet by mouth daily 0 prytygra-hqgqcfxey-ejuM METHasone (MAXITROL) 3.5-38198-0.[address] 0.25 inches Into the left eye 4 times daily 0 09/24/2022 nicotine (NICODERM CQ) 21 MG/24HR [address] 1 patch onto the skin every 24 hours 0 oxyCODONE (ROXICODONE) 5 MG tablet Take 10 mg by mouth at bedtime 0 04/17/2021 pantoprazole (PROTONIX) 40 MG EC tabletIndications:Anemi a, unspecified type Take 1 tablet (40 mg) by mouth 2 times daily (before meals) 60 tablet 0 12/17/2022 polyethylene glycol (MIRALAX) 17 g packet Take 1 packet by mouth every 3 days 0 repaglinide (PRANDIN) 1 MG tablet Take 1 tablet by mouth 3 times daily (before meals) 0 12/13/2020 senna (SENOKOT) 8.6 MG tablet Take 1 tablet by mouth every 3 days 0 10/13/2022 senna-docusate (SENOKOT-S/PERICOLACE) 8.6-50 MG tabletIndications:Const ipation, unspecified constipation type Take 1 tablet by mouth daily as needed for constipation 0 02/21/2023 sorbitol 70 % SOLN solution Take 30 mLs by mouth every 3 days 0 01/09/2022 triamcinolone (KENALOG) 0.1 % external cream Apply topically daily as needed for irritation 0 01/24/2021 umeclidinium (INCRUSE ELLIPTA) 62.5 MCG/ACT inhalerIndications:Community Ambassador genevieve obstructive pulmonary disease, unspecified COPD type (H) Inhale 1 puff into the lungs daily 7 each 0 12/18/2022 documented as of this encounter Progress Notes * Michele Chaudhary MD - 02/21/2023 2:05 PM CST Renal Medicine Progress Note Assessment/Plan: 77 y.o woman with ESRD, admitted for abdominal pain. # [facility] # Abdominal pain: Possible acute pancreatitis. Also has a lot of stool in the colon. # Hypertension: -resume PRESCRIPTION BENEFIT SPECIALIST meds. # Anemia: Hgb is at target. Plan: # Hemodialysis tomorrow if she remains hospitalized. Interval History: She feels better. Abdominal pain improved. She had two good BMs. She tolerated oral intake. Medications and Allergies: amLODIPine 10 mg Oral BID aspirin 81 mg Oral QPM cloNIDine 0.2 mg Oral QAM cloNIDine 0.3 mg Oral QPM erythromycin Left Eye 4x Daily furosemide 40 mg Oral Daily insulin aspart 1-4 Units Subcutaneous Q4H labetalol 600 mg Oral BID multivitamin RENAL 1 capsule Oral Daily nicotine 1 patch Transdermal Daily nicotine Transdermal Q8H pantoprazole 40 mg Oral BID AC umeclidinium 1 puff Inhalation Daily Allergies Allergen Reactions Blood Transfusion Related (Informational Only) Other (See Comments) Patient has a history of a clinically significant antibody against RBC antigens. A delay in compatible RBCs may occur. Cats Shortness Of Breath Atorvastatin Hives, Muscle Pain (Myalgia) and Other (See Comments) Other Reaction(s): Back Pain bumps Cat Hair Extract Hives Dog Epithelium Allergy Skin Test Itching Sneezing Sneezing Dulaglutide Nausea and Vomiting Nausea and vomiting on 1.5mg (questionable!!), ok on 0.75mg. Gatifloxacin Nausea and Nausea and Vomiting Gemfibrozil Itching and Other (See Comments) itching Losartan Itching itching Oxycodone Nausea and Vomiting Pravastatin Muscle Pain (Myalgia) and Other (See Comments) Other Reaction(s): Back Pain Simvastatin Other (See Comments) Other Reaction(s): Back Pain Leg pain Tolerating every other day. Tetracycline Other (See Comments) bumps Ampicillin Hives and Rash hives Atenolol Hives and Rash Fish Oil Rash and Other (See Comments) Hydrochlorothiazide Other (See Comments) and Itching bumps pt had significant pruritic rash pt had significant pruritic rash Lisinopril Other (See Comments) and Rash bumps Lisinopril-Hydrochlorothiazide Rash Niacin Rash and Itching itch Farrell Trees Rash Pioglitazone Rash Itchy rash Physical Exam: Vitals were reviewed , Blood pressure 136/82, pulse 70, temperature 97.3 ??F (36.3 ??C), temperature source Oral, resp. rate 18, weight 40.8 kg (90 lb), SpO2 100%. Wt Readings from Last 3 Encounters: 02/20/23 40.8 kg (90 lb) 12/17/22 46.6 kg (102 lb 11.2 oz) 12/06/22 44.6 kg (98 lb 4.8 oz) Intake/Output Summary (Last 24 hours) at 02/21/2023 1405 Last data filed at 02/21/2023 0900 Gross per 24 hour Intake 692.5 ml Output 1000 ml Net -307.5 ml GENERAL APPEARANCE: pleasant, NAD, alert HEENT: Eyes/ears/nose/neck grossly normal RESP: Not labored. Not needing supplemental O2. EXTREMITIES/SKIN: no rashes/lesions on observed skin; no edema NEURO: Awake, alert and conversing normally. Data: CBC RESULTS: Recent Labs Lab 02/21/23 0816 02/20/23 0852 02/19/231917 WBC 6.6 7.5 7.5 RBC 4.43 4.15 3.77* HGB 12.3 11.6* 10.7* HCT 39.2 37.0 34.1* PLT 292 335 304 Basic Metabolic Panel: Recent Labs Lab 02/21/23 1202 02/21/23 0816 02/21/23 0802 02/21/23 0431 02/21/23 0108 02/20/234 02/20/23 0959 02/20/23 0852 02/19/23 2340 02/19/231917 NA -- 134* -- -- -- -- -- 135 -- 134* POTASSIUM -- 4.0 -- -- -- -- -- 4.2 -- 5.2 CHLORIDE -- 97* -- -- -- -- -- 98 -- 97* CO2 -- 28 -- -- -- -- -- 25 -- 26 BUN -- 12.8 -- -- -- -- -- 34.5* -- 33.2* CR -- 2.49* -- -- -- -- -- 3.81* -- 3.79* GLC 244* 144* 148* 134* 131* 90 < > 112* < > 265* PASTOR -- 8.6* -- -- -- -- -- 8.7* -- 8.5* < > = values in this interval not displayed. INRNo lab results found in last 7 days. Attestation: I have reviewed today's relevant vital signs, notes, medications, labs and imaging. Michele Chaudhary MD [facility] - Nephrology Office phone :[phone] Pager: [phone] HEMIST * Aranza Self RN - 02/20/2023 7:24 PM CST Potassium Date Value Ref Range Status 02/20/2023 4.2 3.4 - 5.3 mmol/L Final Hemoglobin Date Value Ref Range Status 02/20/2023 11.6 (L) 11.7 - 15.7 g/dL Final Creatinine Date Value Ref Range Status 02/20/2023 3.81 (H) 0.51 - 0.95 mg/dL Final Urea Nitrogen Date Value Ref Range Status 02/20/2023 34.5 (H) 8.0 - 23.0 mg/dL Final Sodium Date Value Ref Range Status 02/20/2023 135 135 - 145 mmol/L Final Comment: Reference intervals for this test were updated on 11/06/2022 to more accurately reflect our healthypopulation. There may be differences in the flagging of prior results with similar values performedwith this method. Interpretation of those prior results can be made in the context of the updated reference intervals. No results found for: INR DIALYSIS PROCEDURE NOTE Hepatitis status of previous patient on machine log was checked and verified ok to use with this patients hepatitis status. Patient dialyzed for 3 hrs. on a K3 bath with a net fluid removal of 1L. A BFR of 350 ml/min was obtained via a Left AVF using 16 gauge needles. The treatment plan was discussed with Dr. Chaudhary during the treatment. Total heparin received during the treatment: 1500 units. Needle cannulation sites held x 10 min. Meds given: None Complications: None Person educated: patient. Knowledge base adequate. Barriers to learning: none. Educated on procedure and access care via oral mode. Patient verbalized understanding. Pt prefers verbal education style. ICEBOAT? Timeout performed pre-treatment I: Patient was identified using 2 identifiers C: Consent Signed Yes E: Equipment preventative maintenance is current and dialysis delivery system OK to use B: Hepatitis B Surface Antigen: Negative; Draw Date: 11/29/2022 Hepatitis B Surface Antibody: Immune; Draw Date: 11/29/2022 O: Dialysis orders present and complete prior to treatment A: Vascular access verified and assessed prior to treatment T: Treatment was performed at a clinically appropriate time ?: Patient was allowed to ask questions and address concerns prior to treatment See Adult Hemodialysis flowsheet in [facility] for further details and post assessment. Machine water alarm in place and functioning. Transducer pods intact and checked every 15min. Pt returned via cart transport. Chlorine/Chloramine water system checked every 4 hours. Outpatient Dialysis at [facility] Patient repositioned every 2 hours during the treatment. Post treatment report given to Jen Hathaway RN regarding 1L of fluid removed, last BP of 182/75,and patient pain rating of 4/10 generalized pain to abdomen, legs and lower back post analgesia. Please remove patient dressing on AVF and AVG needle sites 24 hours after dialysis. If leaking occurs please apply a Band-Aid. HEMIST * Emily Mak RN - 02/20/2023 7:02 PM CST Over looke pt care from [phone]. Only saw pt while she was in dialysis. Went to dialysis room to give pt pain medications for back, abdominal and leg pain. When back to dialysis room to see if painimproved and pt stated it did. Other than pain management did not provide any other cares for pt because they have been in dialysis. HEMIST * Nidia Yanez DO - 02/20/2023 7:41 AM CST [facility] Medicine Progress Note - Hospitalist Service Date of Admission: 02/19/2023 Assessment & Plan Summary: Maricruz Vanegas is a 77 year old female with PMHx of ESRD, T2DM, HTN, chronic pain, tobacco use disorder, COPD, recent COVID infection, and recent hospitalization for corynebacterium peritonitis requiring removal of PD catheter and initiation of HD, who was admitted on 02/19/2023 with acutepancreatitis. Abdominal pain Possible acute pancreatitis Presented with 3 days of abdominal pain. Lipase elevated at 394. No findings on CT to suggest pancreatitis or other etiology. Did show a large amount of stool. Has not had a BM in days. Possible thatthis is contributing. Difficult to determine if pancreatitis is also present. Lipase is downtrending and no evidence on CT, but pain is in upper abdomen and lipase still remains abnormal. Will continue treatment for pancreatitis, in addition to constipation as below. - D5 1/2 NS at 50ml/hr - NPO for today, consider advancing tomorrow - will resume PRESCRIPTION BENEFIT SPECIALIST meds sparingly Constipation/obstipation Large amount of stool noted on CT scan. - bisacodyl suppository - senna BID PRN ESRD on HD Dialyzes MWF. - Nephrology consult - HD today Tobacco use disorder - Nicotine patch and nicotine gum T2DM - MDSSI COPD - Albuterol inhaler PRN HTN - resume PRESCRIPTION BENEFIT SPECIALIST amlodipine, clonidine, lasix, and labetalol; IV hydralazine PRN GERD - IV PPI while NPO Hyponatremia - mild, monitor Observation Goals: Diet: NPO for Medical/Clinical Reasons Except for: No Exceptions DVT Prophylaxis: Pneumatic Compression Devices Jones Catheter: Not present Lines: None Cardiac Monitoring: None Code Status: Full Code Clinically Significant Risk Factors Present on Admission # Hypoalbuminemia: Lowest albumin = 3.3 g/dL at 02/19/2023 7:18 PM, will monitor as appropriate # Drug Induced Platelet Defect: home medication list includes an antiplatelet medication # Hypertension: Home medication list includes antihypertensive(s) # Financial/Environmental Concerns: # COPD: noted on problem list Disposition Plan Expected Discharge Date: 02/20/2023 Nidia Yanez DO Hospitalist Service [facility] Securely message with [employer] (more info) Text page via [facility] Paging/Directory Interval History No acute overnight events. Doing ok today. Hungry. Having diffuse abdominal pain that comes and goes. Worse in upper abdomen. No association with food. Has not had a BM in 3 days. No other acute concerns. Physical Exam Vital Signs: Temp: 97.7 ??F (36.5 ??C) Temp src: Oral BP: (!) 161/84 Pulse: 66 Resp: 18 SpO2: 95 % O2 Device: None (Room air) Weight: 90 lbs 9.74 oz Constitutional: Awake, alert, no distress, and cooperative Cardiovascular: Regular rate and rhythm, normal S1 and S2, no S3 or S4, and no murmur noted Respiratory: No increased work of breathing, good air exchange, clear to auscultation bilaterally, no crackles or wheezing Gastrointestinal: Abdomen soft, diffuse tenderness worse in upper abdomen, non- distended. BS normal. No masses, organomegaly Medical Decision Making 45 MINUTES SPENT BY ME on the date of service doing chart review, history, exam, documentation & further activities per the note. Data I have personally reviewed the following data over the past 24 hrs: 7.5 \ 11.6 (L) / 335 135 98 34.5 (H) / 174 (H) 4.2 25 3.81 (H) \ ALT: 5 AST: 18 AP: 122 TBILI: 0.2 ALB: 3.2 (L) TOT PROTEIN: 6.3 (L) LIPASE: 186 (H) HEMIST * Petra Branch RN - 02/20/2023 5:40 AM CST [facility] ED Boarding Nurse Handoff Addendum Report: Date/time: 02/20/2023, 12:25 AM Activity Level: standby Fall Risk: No Active Infusions: NS@50ml/hr Current Meds Due: review MAR Current care needs: continue plan of care Oxygen requirements (liters/min and/or FiO2): Respiratory status: Room air Vital signs (within last 30 minutes): BP (!) 161/84 Pulse 66 Temp 97.7 ??F (36.5 ??C) (Oral) Resp 18 Wt 41.1 kg (90 lb 9.7 oz) SpO2 95% BMI 17.12 kg/m?? Focused assessment within last 30 minutes: A&O. Abdominal discomfort/pain/distention managed with IV dilaudid. Nicotine patch rt upper arm. Hypertensive, prns given. Neds Med Rec. No difficulty urinating (makes urine). ED Boarding Nurse name: Petra Branch RN HEMIST documented in this encounter H&P Notes * Kai Khan, DO - 02/19/2023 11:21 PM CST [facility] History and Physical - Hospitalist Service Date of Admission: 02/19/2023 Assessment & Plan Maricruz Vanegas is a 77 year old female admitted on 02/19/2023. She has a past medical history significant for end-stage renal disease, type 2 diabetes, hypertension, chronic pain, tobacco use disorder, COPD, recent COVID infection and recent hospitalization for peritonitis secondary to corynebacterium requiring removal of PD catheter and initiation on to hemodialysis. She developed abdominal pain3 days ago. Presented to ER for further evaluation. Possible acute pancreatitis. -Mildly elevated lipase at 394. -NPO. -Gentle IV fluids. -Pain medicine if needed. -Recheck lipase tomorrow. -Check triglycerides. Constipation/obstipation. -Large amount of stool noted on CT scan. -Pain medication if needed. -Unfortunately, n.p.o. due to possible pancreatitis. -Bisacodyl suppositories as needed. End-stage kidney disease. -Nephrology consult. Tobacco use disorder. -I did advise smoking cessation. -Start nicotine patch. -Additional nicotine gum if needed. Diabetes mellitus type 2. -Aspart insulin sliding scale as needed. COPD. -No acute exacerbation. -Albuterol if needed. Hypertension. -IV hydralazine if needed. GERD. -Pantoprazole 40 mg IV twice a day while NPO. Hyponatremia. -Mild. Sodium 134. -Recheck metabolic panel tomorrow. Observation Goals: Diet: NPO for Medical/Clinical Reasons Except for: No Exceptions DVT Prophylaxis: Pneumatic Compression Devices Jones Catheter: Not present Lines: None Cardiac Monitoring: None Code Status: Full Code Clinically Significant Risk Factors Present on Admission # Hypoalbuminemia: Lowest albumin = 3.3 g/dL at 02/19/2023 7:18 PM, will monitor as appropriate # Drug Induced Platelet Defect: home medication list includes an antiplatelet medication # Hypertension: Home medication list includes antihypertensive(s) # Financial/Environmental Concerns: # COPD: noted on problem list Disposition Plan Expected Discharge Date: 02/20/2023 Kai Khan DO Hospitalist Service [facility] Securely message with [employer] (more info) Text page via [facility] Paging/Directory Chief Complaint Abdominal pain. History is obtained from the patient History of Present Illness Maricruz Vanegas is a 77 year old female who has a past medical history significant for end-stage renal disease, type 2 diabetes, hypertension, chronic pain, tobacco use disorder, COPD, recent COVID infection and recent hospitalization for peritonitis secondary to corynebacterium requiring removal o f PD catheter and initiation on to hemodialysis. Began having abdominal pain 3 days ago. Pain is located in the center of her abdomen. Radiates to her back. No fevers or chills. Occasional nausea. Novomiting. No bowel movement today. Does not member if she has been passing gas. Last bowel movementyesterday. Bowel movement was normal at that time. Has not noticed anything in particular that makes pain better or worse. Pain is described as a cramping sensation that is sharp when it happens. No other acute complaints. Past Medical History Past Medical History: Diagnosis Date Diabetes mellitus, type 2 (H) ESRD (end stage renal disease) on dialysis (H) Past Surgical History Past Surgical History: Procedure Laterality Date ESOPHAGOSCOPY, GASTROSCOPY, DUODENOSCOPY (EGD), COMBINED N/A 12/14/2022 Procedure: ESOPHAGOGASTRODUODENOSCOPY; Surgeon: Adama Katz MD; Location: [facility] OR PERITONEAL CATHETER INSERTION REMOVE CATHETER PERITONEAL N/A 12/04/2022 Procedure: REMOVAL PERITONEAL DIALYSIS CATHETER; Surgeon: Rajan Hernandez MD; Location: [facility] OR Prior to Admission Medications Prior to Admission Medications Prescriptions Last Dose Informant Patient Reported? Taking? albuterol (PROVENTIL) (2.5 MG/3ML) 0.083% neb solution Self Yes No Sig: Take 2.5 mg by nebulization every 4 hours as needed for shortness of breath amLODIPine (NORVASC) 10 MG tablet Self Yes No Sig: Take 10 mg by mouth 2 times daily aspirin 81 MG EC tablet Self Yes No Sig: Take 81 mg by mouth daily carboxymethylcellulose PF (REFRESH PLUS) 0.5 % ophthalmic solution Self Yes No Sig: Place 1 drop Into the left eye 4 times daily cetirizine (ZYRTEC) 10 MG tablet Self Yes No Sig: Take 10 mg by mouth daily cloNIDine (CATAPRES) 0.1 MG tablet Self Yes No Sig: Take 2 tablets (0.2 mg) by mouth every morning and take 3 tablets by mouth (0.3 mg) every evening erythromycin (ROMYCIN) 5 MG/GM ophthalmic ointment Self Yes No Sig: Place Into the left eye 4 times daily furosemide (LASIX) 40 MG tablet Self Yes No Sig: Take 40 mg by mouth daily furosemide (LASIX) 80 MG tablet No No Sig: Take 1 tablet (80 mg) by mouth 2 times daily Take 1 tablet twice a day on Saturday, Saturday, , Saturday gabapentin (NEURONTIN) 300 MG capsule Yes No Sig: Take 300 mg by mouth at bedtime glipiZIDE (GLUCOTROL XL) 10 MG 24 hr tablet Self Yes No Sig: Take 20 mg by mouth daily (before supper) ipratropium - albuterol 0.5 mg/2.5 mg/3 mL (DUONEB) 0.5-2.5 (3) MG/3ML neb solution Self Yes No Sig: Inhale 3 mLs into the lungs every 6 hours as needed for shortness of breath labetalol (NORMODYNE) 300 MG tablet Self Yes No Sig: Take 300 mg by mouth 3 times daily jfhkhucm-fzgknklwo-trfODAIZthspu (MAXITROL) 3.5-08997-0.1 ophthalmic ointment Self Yes No Sig: Place 0.25 inches Into the left eye 4 times daily nicotine (NICODERM CQ) 7 MG/24HR 24 hr patch Self Yes No Sig: Place 1 patch onto the skin every 24 hours oxyCODONE (ROXICODONE) 5 MG tablet Self Yes No Sig: Take 10 mg by mouth at bedtime pantoprazole (PROTONIX) 40 MG EC tablet No No Sig: Take 1 tablet (40 mg) by mouth 2 times daily (before meals) polyethylene glycol (MIRALAX) 17 g packet Self Yes No Sig: Take 1 packet by mouth every 3 days repaglinide (PRANDIN) 1 MG tablet Self Yes No Sig: Take 1 tablet by mouth 3 times daily (before meals) senna (SENOKOT) 8.6 MG tablet Self Yes No Sig: Take 1 tablet by mouth every 3 days senna-docusate (SENOKOT-S/PERICOLACE) 8.6-50 MG tablet No No Sig: Take 1 tablet by mouth 2 times daily sorbitol 70 % SOLN solution Self Yes No Sig: Take 30 mLs by mouth every 3 days triamcinolone (KENALOG) 0.1 % external cream Self Yes No Sig: Apply topically daily as needed for irritation umeclidinium (INCRUSE ELLIPTA) 62.5 MCG/ACT inhaler No No Sig: Inhale 1 puff into the lungs daily Facility-Administered Medications: None Allergies Allergies Allergen Reactions Blood Transfusion Related (Informational Only) Other (See Comments) Patient has a history of a clinically significant antibody against RBC antigens. A delay in compatible RBCs may occur. Cats Shortness Of Breath Atorvastatin Hives, Muscle Pain (Myalgia) and Other (See Comments) Other Reaction(s): Back Pain bumps Cat Hair Extract Hives Dog Epithelium Allergy Skin Test Itching Sneezing Sneezing Dulaglutide Nausea and Vomiting Nausea and vomiting on 1.5mg (questionable!!), ok on 0.75mg. Gatifloxacin Nausea and Nausea and Vomiting Gemfibrozil Itching and Other (See Comments) itching Losartan Itching itching Oxycodone Nausea and Vomiting Pravastatin Muscle Pain (Myalgia) and Other (See Comments) Other Reaction(s): Back Pain Simvastatin Other (See Comments) Other Reaction(s): Back Pain Leg pain Tolerating every other day. Tetracycline Other (See Comments) bumps Ampicillin Hives and Rash hives Atenolol Hives and Rash Fish Oil Rash and Other (See Comments) Hydrochlorothiazide Other (See Comments) and Itching bumps pt had significant pruritic rash pt had significant pruritic rash Lisinopril Other (See Comments) and Rash bumps Lisinopril-Hydrochlorothiazide Rash Niacin Rash and Itching itch Farrell Trees Rash Pioglitazone Rash Itchy rash Physical Exam Vital Signs: Temp: 98.7 ??F (37.1 ??C) Temp src: Oral BP: (!) 185/64 Pulse: 66 Resp: 16 SpO2: 99 % Weight: 90 lbs 9.74 oz Gen: Thin, NAD, A&Ox3. Eyes: PERRL, sclera anicteric. OP: MMM, no lesions. Neck: Supple. CV: Regular, no murmurs. Lung: CTA b/l, normal effort. Ab: Mild distention, +BS, soft. Skin: Warm, dry to touch. No rash. Ext: No pitting edema LE b/l. Medical Decision Making 75 MINUTES SPENT BY ME on the date of service doing chart review, history, exam, documentation & further activities per the note. Data I have personally reviewed the following data over the past 24 hrs: 7.5 \ 10.7 (L) / 304 134 (L) 97 (L) 33.2 (H) / 265 (H) 5.2 26 3.79 (H) \ ALT: 9 AST: 17 AP: 132 TBILI: 0.2 ALB: 3.3 (L) TOT PROTEIN: 6.6 LIPASE: 394 (H) Imaging results reviewed over the past 24 hrs: Recent Results (from the past 24 hour(s)) CT Abdomen Pelvis w/o Contrast Narrative EXAM: CT ABDOMEN PELVIS W/O CONTRAST LOCATION: [facility] DATE: 02/19/2023 INDICATION: ruq epigastric abd pain [...] inguinal hernia unchanged. No suspicious bony lesion. Impression IMPRESSION: 1. No definite etiology for symptoms. Abundant stool now seen throughout right hemicolon but no obstruction or inflammatory focus evident. HEMIST documented in this encounter Consult Notes * Ledy Padron MSW - 02/21/2023 10:03 AM CSTAssociated Order(s): CARE MANAGEMENT / SOCIAL WORK IP CONSULT Care Management Note Discharge Date: 02/21/23 Discharge Disposition: Home Discharge Transportation: Family Private pay costs discussed: Not applicable Does the patient's insurance plan have a 3 day qualifying hospital stay waiver? No Patient/Family in Agreement with the Plan: Yes Handoff Referral Completed: No Additional Information: Patient identified as an elevated unplanned readmission risk of 27%. Patient admitted with pancreatis. SW met with patient who reports that she lives with her sister, 2 sons, and nephew. Pt reports being independent at baseline. Pt goes to [facility]. Pt denies any CC/SW needs and plansto return home when medically stable. Please call if needs arise prior to discharge. 1600: Pt unable to find transportation home. ABEBA spoke with CC/SW first line production supervisor, gave approval for SW to arrange cab ride home through hospital account. SW placed call to [employer], . Requested a 5pm pickup. They will call the RN station when they are on the way. JUAN Hinds, [facility] Inpatient Care Coordination [facility] [phone] HEMIST * Michele Chaudhary MD - 02/20/2023 2:22 PM CSTAssociated Order(s): NEPHROLOGY IP CONSULT RENAL CONSULTATION NOTE REFERRING MD: Kai Khan DO REASON FOR CONSULTATION: ESRD HPI: 77 y.o woman with ESRD on IHD, COPD, hypertension and diabetes, who was admitted for abdominalpain. I reviewed notes from ER MD (Dr. Lozano) and IM (Dr. Khan: Initial VSS in ER 98.7 182/115 16 99% RA Abdominal pain-CT showed a lot of stool in the transverse to the left jj-colon. Lipase is mildly elevated at 394 On NPO status due to possible acute pancreatitis. Recently had peritonitis and she was switched to hemodialysis from PD. She gets dialysis at a [facility] unit in [place] She gets dialysis on MWF for three hours. She does not know her EDW. She has a L AVF. ROS: A complete review of systems was performed and is negative except as noted above. PMH: Past Medical History: Diagnosis Date Diabetes mellitus, type 2 (H) ESRD (end stage renal disease) on dialysis (H) PSH: Past Surgical History: Procedure Laterality Date ESOPHAGOSCOPY, GASTROSCOPY, DUODENOSCOPY (EGD), COMBINED N/A 12/14/2022 Procedure: ESOPHAGOGASTRODUODENOSCOPY; Surgeon: Adama Katz MD; Location: [facility] OR PERITONEAL CATHETER INSERTION REMOVE CATHETER PERITONEAL N/A 12/04/2022 Procedure: REMOVAL PERITONEAL DIALYSIS CATHETER; Surgeon: Rajan Hernandez MD; Location: [facility] OR MEDICATIONS: amLODIPine 10 mg Oral BID [START ON 02/21/2023] cloNIDine 0.2 mg Oral QAM cloNIDine 0.3 mg Oral QPM furosemide 40 mg Oral Daily insulin aspart 1-4 Units Subcutaneous Q4H labetalol 600 mg Oral BID nicotine 1 patch Transdermal Daily nicotine Transdermal Q8H pantoprazole 40 mg Intravenous BID ALLERGIES: Allergies as of 02/19/2023 - Reviewed 02/19/2023 Allergen Reaction Noted Blood transfusion related (informational only) Other (See Comments) 12/14/2022 Cats Shortness Of Breath 04/06/2004 Atorvastatin Hives, Muscle Pain (Myalgia), and Other (See Comments) 12/07/2003 Cat hair extract Hives 04/20/2021 Dog epithelium allergy skin test Itching 04/15/2018 Dulaglutide Nausea and Vomiting 04/13/2019 Gatifloxacin Nausea and Nausea and Vomiting 04/20/2021 Gemfibrozil Itching and Other (See Comments) 02/20/2010 Losartan Itching 01/09/2010 Oxycodone Nausea and Vomiting 05/25/2015 Pravastatin Muscle Pain (Myalgia) and Other (See Comments) 01/22/2012 Simvastatin Other (See Comments) 04/04/2016 Tetracycline Other (See Comments) 05/09/2015 Ampicillin Hives and Rash 05/13/2006 Atenolol Hives and Rash 03/15/2005 Fish oil Rash and Other (See Comments) 04/20/2021 Hydrochlorothiazide Other (See Comments) and Itching 10/09/2004 Lisinopril Other (See Comments) and Rash 03/15/2005 Lisinopril-hydrochlorothiazide Rash 11/24/2022 Niacin Rash and Itching 05/13/2006 Farrell trees Rash 05/16/2010 Pioglitazone Rash 10/11/2020 FH: No family history on file. SH: Social History Socioeconomic History Marital status: Single Spouse name: Not on file Number of children: Not on file Years of education: Not on file Highest education level: Not on file Occupational History Not on file Tobacco Use Smoking status: Not on file Smokeless tobacco: Not on file Substance and Sexual Activity Alcohol use: Not on file Drug use: Not on file Sexual activity: Not on file Other Topics Concern Not on file Social History Narrative Not on file Social Determinants of Health Financial Resource Strain: Not on file Food Insecurity: Not on file Transportation Needs: Not on file Physical Activity: Not on file Stress: Not on file Social Connections: Not on file Interpersonal Safety: Not on file Housing Stability: Not on file PHYSICAL EXAM: BP (!) 193/70 Pulse 70 Temp 98.6 ??F (37 ??C) (Oral) Resp 20 Wt 41.1 kg (90 lb 9.7 oz) SpO2 96% BMI 17.12 kg/m?? GENERAL: pleasant, alert, NAD HEENT: Normocephalic. No gross abnormalities. Pupils equal. MMM. CV: RRR, murmurs, no clicks, gallops, or rubs, no edema RESP: Clear bilaterally with good efforts. No wheezes or crackles. GI: Abdomen Soft, ND. Some discomfort. MUSCULOSKELETAL: extremities nl - no gross deformities noted. No edema. SKIN: no suspicious lesions or rashes, dry to touch NEURO: Strength normal and symmetric. Awake, alert and conversing normally. PSYCH: mood good, affect appropriate LYMPH: No palpable ant/post cervical LABS: CBC RESULTS: Recent Labs Lab 02/20/23 0852 02/19/231917 WBC 7.5 7.5 RBC 4.15 3.77* HGB 11.6* 10.7* HCT 37.0 34.1* PLT 335 304 BMP RESULTS: Recent Labs Lab 02/20/23 1203 02/20/23 0959 02/20/23 0852 02/20/23 0420 02/20/23 0233 02/20/23 0203 02/19/23 2340 02/19/231917 NA -- -- 135 -- -- -- -- 134* POTASSIUM -- -- 4.2 -- -- -- -- 5.2 CHLORIDE -- -- 98 -- -- -- -- 97* CO2 -- -- 25 -- -- -- -- 26 BUN -- -- 34.5* -- -- -- -- 33.2* CR -- -- 3.81* -- -- -- -- 3.79* GLC 160* 131* 112* 166* 235* 54* < > 265* PASTOR -- -- 8.7* -- -- -- -- 8.5* < > = values in this interval not displayed. INRNo lab results found in last 7 days. DIAGNOSTICS: Reviewed A/P: 77 y.o woman with ESRD, admitted for abdominal pain. # ESRD: -3 hrs -MWF -[facility] -Yvette Muñoz # Abdominal pain: Possible acute pancreatitis. Also has a lot of stool in the colon. # Hypertension: -resume PRESCRIPTION BENEFIT SPECIALIST meds. # Anemia: Hgb is at target. Plan: # Change NS to D5 1/2 NS at 50 ml/hr due to NPO status # HD order placed for today Michele Chaudhary MD [facility] - Nephrology Office Pager: [phone] HEMIST documented in this encounter ED Notes * Tyron Melendrez RN - 02/19/2023 11:28 PM CST Bed: ED21 Expected date: Expected time: Means of arrival: Comments: ED5 HEMIST * Vira Jacob RN - 02/19/2023 10:54 PM CST [facility] ED Nurse Handoff Report ED Chief complaint: Abdominal Pain . ED Diagnosis: Final diagnoses: None Allergies: Allergies Allergen Reactions Blood Transfusion Related (Informational Only) Other (See Comments) Patient has a history of a clinically significant antibody against RBC antigens. A delay in compatible RBCs may occur. Cats Shortness Of Breath Atorvastatin Hives, Muscle Pain (Myalgia) and Other (See Comments) Other Reaction(s): Back Pain bumps Cat Hair Extract Hives Dog Epithelium Allergy Skin Test Itching Sneezing Sneezing Dulaglutide Nausea and Vomiting Nausea and vomiting on 1.5mg (questionable!!), ok on 0.75mg. Gatifloxacin Nausea and Nausea and Vomiting Gemfibrozil Itching and Other (See Comments) itching Losartan Itching itching Oxycodone Nausea and Vomiting Pravastatin Muscle Pain (Myalgia) and Other (See Comments) Other Reaction(s): Back Pain Simvastatin Other (See Comments) Other Reaction(s): Back Pain Leg pain Tolerating every other day. Tetracycline Other (See Comments) bumps Ampicillin Hives and Rash hives Atenolol Hives and Rash Fish Oil Rash and Other (See Comments) Hydrochlorothiazide Other (See Comments) and Itching bumps pt had significant pruritic rash pt had significant pruritic rash Lisinopril Other (See Comments) and Rash bumps Lisinopril-Hydrochlorothiazide Rash Niacin Rash and Itching itch Farrell Trees Rash Pioglitazone Rash Itchy rash Code Status: see admit order for status Activity level - Baseline/Home: independent. Activity Level - Current: independent. Lift room needed: No. Bariatric: No Landscape And Yardwork Laborer Needed: No Isolation: No. Infection: Not Applicable. Respiratory status: Room air Vital Signs (within 30 minutes): Vitals: 02/19/23 2110 02/19/23 2111 02/19/23 2112 02/19/232134 BP: (!) 185/64 BP Location: Pulse: Resp: Temp: TempSrc: SpO2: 98% 98% 99% Weight: Cardiac Rhythm: , Pain level: Patient confused: No. Patient Falls Risk: nonskid shoes/slippers when out of bed and patient and family education. Elimination Status: Patient Report - Initial Complaint: Abdominal pain. Focused Assessment: Abnormal Results: Labs Ordered and Resulted from Time of ED Arrival to Time of ED Departure COMPREHENSIVE METABOLIC PANEL - Abnormal Result Value Sodium 134 (*) Potassium 5.2 Carbon Dioxide (CO2) 26 Anion Gap 11 Urea Nitrogen 33.2 (*) Creatinine 3.79 (*) GFR Estimate 12 (*) Calcium 8.5 (*) Chloride 97 (*) Glucose 265 (*) Alkaline Phosphatase 132 AST 17 ALT 9 Protein Total 6.6 Albumin 3.3 (*) Bilirubin Total 0.2 LIPASE - Abnormal Lipase 394 (*) CBC WITH PLATELETS AND DIFFERENTIAL - Abnormal WBC Count 7.5 RBC Count 3.77 (*) Hemoglobin 10.7 (*) Hematocrit 34.1 (*) MCV 91 MCH 28.4 MCHC 31.4 (*) RDW 18.8 (*) Platelet Count 304 % Neutrophils 81 % Lymphocytes 10 % Monocytes 6 % Eosinophils 3 % Basophils 0 % Immature Granulocytes 0 NRBCs per 100 WBC 0 Absolute Neutrophils 6.0 Absolute Lymphocytes 0.8 Absolute Monocytes 0.4 Absolute Eosinophils 0.2 Absolute Basophils 0.0 Absolute Immature Granulocytes 0.0 Absolute NRBCs 0.0 ROUTINE UA WITH MICROSCOPIC REFLEX TO CULTURE - Abnormal Color Urine Light Yellow Appearance Urine Clear Glucose Urine 500 (*) Bilirubin Urine Negative Ketones Urine Negative Specific [place] Urine 1.011 Blood Urine Small (*) pH Urine 7.0 Protein Albumin Urine 200 (*) Urobilinogen Urine Normal Nitrite Urine Negative Leukocyte Esterase Urine Negative Bacteria Urine Few (*) Mucus Urine Present (*) RBC Urine 2 WBC Urine 3 Squamous Epithelials Urine 2 (*) Hyaline Casts Urine [address] Abdomen Pelvis w/o Contrast Final Result IMPRESSION: 1. No definite etiology for symptoms. Abundant stool now seen throughout right hemicolon but no obstruction or inflammatory focus evident. Treatments provided: Family Comments: NA OBS brochure/video discussed/provided to patient: Yes ED Medications: Medications - No data to display Drips infusing: No For the majority of the shift this patient was Green. Interventions performed were NA. Sepsis treatment initiated: No Cares/treatment/interventions/medications to be completed following ED care: admit orders. ED Nurse Name: Vira Jacob RN 10:55 PM HEMIST * Shelley Carr RN - 02/19/2023 6:26 PM CST BIBA from home for abdominal pain that started 3 days ago Dialysis MWF, dialyzed yesterday without issues Abdomen distended, has not had a BM for a couple days and reports its hard to pee Walked from house to stretcher R side lying relieves pain Nausea with eating, denies vomiting HTN, OVSS on RA No meds given by EMS HEMIST * Lisa Casarez RN - 02/19/2023 6:25 PM CST Bed: ED03 Expected date: Expected time: Means of arrival: Comments: [id number] HEMIST * Jose F Lozano MD - 02/19/2023 6:24 PM CST History Chief Complaint: Abdominal Pain HPI Maricruz Vanegas is a 77 year old female who presents with CC 3 day hx of abdominal pain. She reports pain is in the center and right side of her abdomen. She reports chronic constipation due to chronic narcotic use. She describes pain as cramping and intermittent. Pt is on hemodialysis and was last dialyzed yesterday. She denies fevers. Denies vomiting/diarrhea. Independent Historian: None - Patient Only Review of External Notes: Reviewed nurse triage note from prior to arrival. Medications: albuterol (PROVENTIL) (2.5 MG/3ML) 0.083% neb solution amLODIPine (NORVASC) 10 MG tablet aspirin 81 MG EC tablet carboxymethylcellulose PF (REFRESH PLUS) 0.5 % ophthalmic solution cetirizine (ZYRTEC) 10 MG tablet cloNIDine (CATAPRES) 0.1 MG tablet erythromycin (ROMYCIN) 5 MG/GM ophthalmic ointment furosemide (LASIX) 40 MG tablet furosemide (LASIX) 80 MG tablet gabapentin (NEURONTIN) 300 MG capsule glipiZIDE (GLUCOTROL XL) 10 MG 24 hr tablet ipratropium - albuterol 0.5 mg/2.5 mg/3 mL (DUONEB) 0.5-2.5 (3) MG/3ML neb solution labetalol (NORMODYNE) 300 MG tablet wkciibxl-wophbsmbw-aenTUHVEoebpr (MAXITROL) 3.5-00646-5.1 ophthalmic ointment nicotine (NICODERM CQ) 7 MG/24HR 24 hr patch oxyCODONE (ROXICODONE) 5 MG tablet pantoprazole (PROTONIX) 40 MG EC tablet polyethylene glycol (MIRALAX) 17 g packet repaglinide (PRANDIN) 1 MG tablet senna (SENOKOT) 8.6 MG tablet senna-docusate (SENOKOT-S/PERICOLACE) 8.6-50 MG tablet sorbitol 70 % SOLN solution triamcinolone (KENALOG) 0.1 % external cream umeclidinium (INCRUSE ELLIPTA) 62.5 MCG/ACT inhaler Past Medical History: Past Medical History: Diagnosis Date Diabetes mellitus, type 2 (H) ESRD (end stage renal disease) on dialysis (H) Past Surgical History: Past Surgical History: Procedure Laterality Date ESOPHAGOSCOPY, GASTROSCOPY, DUODENOSCOPY (EGD), COMBINED N/A 12/14/2022 Procedure: ESOPHAGOGASTRODUODENOSCOPY; Surgeon: Adama Katz MD; Location: OR PERITONEAL CATHETER INSERTION REMOVE CATHETER PERITONEAL N/A 12/04/2022 Procedure: REMOVAL PERITONEAL DIALYSIS CATHETER; Surgeon: Rajan Hernandez MD; Location: OR Physical Exam Patient Vitals for the past 24 hrs: BP Temp Temp src Pulse Resp SpO2 Weight 02/20/23420 -- -- -- -- -- 97 % -- 02/20/23418 (!) 183/69 -- -- 66 -- -- -- 02/20/23417 -- -- -- -- -- 96 % -- 02/20/23416 -- -- -- -- -- 97 % -- 02/20/23415 -- -- -- -- -- 97 % -- 02/20/23414 -- -- -- -- -- 97 % -- 02/20/23413 -- -- -- -- -- 96 % -- 02/20/23412 -- -- -- -- -- 98 % -- 02/20/23411 -- -- -- -- -- 98 % -- 02/20/23410 -- -- -- -- -- 98 % -- 02/20/23409 -- -- -- -- -- 97 % -- 02/20/23408 -- -- -- -- -- 97 % -- 02/20/23407 -- -- -- -- -- 97 % -- 02/20/23406 -- -- -- -- -- 96 % -- 02/20/23405 -- -- -- -- -- 97 % -- 02/20/23404 -- -- -- -- -- 98 % -- 02/20/23403 -- -- -- -- -- 97 % -- 02/20/23402 -- -- -- -- -- 99 % -- 02/20/23401 -- -- -- -- -- 99 % -- 02/20/23400 -- -- -- -- -- 99 % -- 02/20/23399 -- -- -- -- -- 98 % -- 02/20/23358 -- -- -- -- -- 98 % -- 02/20/23357 -- -- -- -- -- 98 % -- 02/20/23356 -- -- -- -- -- 97 % -- 02/20/23355 -- -- -- -- -- 97 % -- 02/20/23354 -- -- -- -- -- 97 % -- 02/20/23353 -- -- -- -- -- 97 % -- 02/20/23352 -- -- -- -- -- 97 % -- 02/20/23351 -- -- -- -- -- 97 % -- 02/20/23350 -- -- -- -- -- 96 % -- 02/20/23349 -- -- -- -- -- 98 % -- 02/20/23348 -- -- -- -- -- 99 % -- 02/20/23347 -- -- -- -- -- 98 % -- 02/20/23346 -- -- -- -- -- 98 % -- 02/20/23345 -- -- -- -- -- 97 % -- 02/20/23344 -- -- -- -- -- 98 % -- 02/20/23343 -- -- -- -- -- 98 % -- 02/20/23342 -- -- -- -- -- 98 % -- 02/20/23341 -- -- -- -- -- 97 % -- 02/20/23340 -- -- -- -- -- 97 % -- 02/20/23339 -- -- -- -- -- 100 % -- 02/20/23338 -- -- -- -- -- 99 % -- 02/20/23337 -- -- -- -- -- 98 % -- 02/20/23336 -- -- -- -- -- 98 % -- 02/20/23335 -- -- -- -- -- 98 % -- 02/20/23334 -- -- -- -- -- 99 % -- 02/20/23333 -- -- -- -- -- 99 % -- 02/20/23332 -- -- -- -- -- 97 % -- 02/20/23331 -- -- -- -- -- 96 % -- 02/20/23330 -- -- -- -- -- 96 % -- 02/20/23329 -- -- -- -- -- 96 % -- 02/20/23328 -- -- -- -- -- 96 % -- 02/20/23327 -- -- -- -- -- 95 % -- 02/20/23326 -- -- -- -- -- 95 % -- 02/20/23325 -- -- -- -- -- 95 % -- 02/20/23324 -- -- -- -- -- 95 % -- 02/20/23323 -- -- -- -- -- 95 % -- 02/20/23322 -- -- -- -- -- 93 % -- 02/20/23318 -- -- -- -- -- 90 % -- 02/20/23317 (!) 184/80 -- -- 71 -- 97 % -- 02/20/23316 -- -- -- -- -- 96 % -- 02/20/23315 -- -- -- -- -- 96 % -- 02/20/23314 -- -- -- -- -- 97 % -- 02/20/23313 -- -- -- -- -- 93 % -- 02/20/23312 -- -- -- -- -- 94 % -- 02/20/23311 -- -- -- -- -- 96 % -- 02/20/23310 -- -- -- -- -- 96 % -- 02/20/23309 -- -- -- -- -- 95 % -- 02/20/23308 -- -- -- -- -- 95 % -- 02/20/23307 -- -- -- -- -- 95 % -- 02/20/23306 -- -- -- -- -- 95 % -- 02/20/23305 -- -- -- -- -- 94 % -- 02/20/23304 -- -- -- -- -- 94 % -- 02/20/23303 -- -- -- -- -- 95 % -- 02/20/23302 -- -- -- -- -- 95 % -- 02/20/23301 -- -- -- -- -- 95 % -- 02/20/23300 -- -- -- -- -- 95 % -- 02/20/23299 -- -- -- -- -- 95 % -- 02/20/23258 -- -- -- -- -- 95 % -- 02/20/23257 -- -- -- -- -- 95 % -- 02/20/23256 -- -- -- -- -- 95 % -- 02/20/23255 -- -- -- -- -- 95 % -- 02/20/23254 -- -- -- -- -- 95 % -- 02/20/23253 -- -- -- -- -- 95 % -- 02/20/23252 -- -- -- -- -- 95 % -- 02/20/23251 -- -- -- -- -- 95 % -- 02/20/23250 -- -- -- -- -- 95 % -- 02/20/23249 -- -- -- -- -- 95 % -- 02/20/23248 -- -- -- -- -- 95 % -- 02/20/23247 -- -- -- -- -- 95 % -- 02/20/23246 -- -- -- -- -- 95 % -- 02/20/23245 -- -- -- -- -- 95 % -- 02/20/23244 -- -- -- -- -- 95 % -- 02/20/23243 -- -- -- -- -- 95 % -- 02/20/23242 -- -- -- -- -- 96 % -- 02/20/23241 -- -- -- -- -- 95 % -- 02/20/23235 -- -- -- -- -- 95 % -- 02/20/23234 -- -- -- -- -- 94 % -- 02/20/23233 -- -- -- -- -- 94 % -- 02/20/23232 -- -- -- -- -- 93 % -- 02/20/23231 -- -- -- -- -- 94 % -- 02/20/23230 (!) 188/ -- -- 71 -- 95 % -- 02/20/23229 -- -- -- -- -- 95 % -- 02/20/23228 -- -- -- -- -- 95 % -- 02/20/23227 -- -- -- -- -- 95 % -- 02/20/23226 -- -- -- -- -- 95 % -- 02/20/23225 -- -- -- -- -- 95 % -- 02/20/23224 -- -- -- -- -- 95 % -- 02/20/23223 -- -- -- -- -- 95 % -- 02/20/23222 -- -- -- -- -- 95 % -- 02/20/23221 -- -- -- -- -- 95 % -- 02/20/23220 -- -- -- -- -- 95 % -- 02/20/23219 -- -- -- -- -- 95 % -- 02/20/23218 -- -- -- -- -- 95 % -- 02/20/23217 -- -- -- -- -- 96 % -- 02/20/23216 -- -- -- -- -- 96 % -- 02/20/23215 -- -- -- -- -- 94 % -- 02/20/23214 -- -- -- -- -- (!) 89 % -- 02/20/23213 -- -- -- -- -- 91 % -- 02/20/23212 (!) 191/ -- -- 71 -- 91 % -- 02/20/23211 -- -- -- -- -- 93 % -- 02/20/23210 -- -- -- -- -- 91 % -- 02/20/23209 -- -- -- -- -- 95 % -- 02/20/23208 -- -- -- -- -- 96 % -- 02/20/23207 -- -- -- -- -- 94 % -- 02/20/23206 -- -- -- -- -- 94 % -- 02/20/23205 -- -- -- -- -- 96 % -- 02/20/23204 -- -- -- -- -- 97 % -- 02/20/23203 -- -- -- -- -- 96 % -- 02/20/23202 -- -- -- -- -- 96 % -- 02/20/23201 -- -- -- -- -- 97 % -- 02/20/23200 -- -- -- -- -- 96 % -- 02/20/23199 -- -- -- -- -- 96 % -- 02/20/23158 -- -- -- -- -- 96 % -- 02/20/23157 -- -- -- -- -- 96 % -- 02/20/23156 -- -- -- -- -- 97 % -- 02/20/23155 -- -- -- -- -- 97 % -- 02/20/23154 -- -- -- -- -- 97 % -- 02/20/23153 -- -- -- -- -- 97 % -- 02/20/23152 -- -- -- -- -- 98 % -- 02/20/23151 -- -- -- -- -- 96 % -- 02/20/23150 -- -- -- -- -- 96 % -- 02/20/23149 -- -- -- -- -- 96 % -- 02/20/23148 -- -- -- -- -- 96 % -- 02/20/23147 -- -- -- -- -- 96 % -- 02/20/23146 -- -- -- -- -- 96 % -- 02/20/23145 -- -- -- -- -- 96 % -- 02/20/23144 -- -- -- -- -- 97 % -- 02/20/23143 -- -- -- -- -- 96 % -- 02/20/23142 -- -- -- -- -- 96 % -- 02/20/23141 -- -- -- -- -- 96 % -- 02/20/23140 -- -- -- -- -- 96 % -- 02/20/23139 -- -- -- -- -- 96 % -- 02/20/23138 -- -- -- -- -- 96 % -- 02/20/23137 -- -- -- -- -- 96 % -- 02/20/23136 -- -- -- -- -- 96 % -- 02/20/23135 -- -- -- -- -- 96 % -- 02/20/23134 -- -- -- -- -- 96 % -- 02/20/23133 -- -- -- -- -- 96 % -- 02/20/23132 -- -- -- -- -- 96 % -- 02/20/23131 -- -- -- -- -- 96 % -- 02/20/23130 -- -- -- -- -- 95 % -- 02/20/23129 -- -- -- -- -- 96 % -- 02/20/23128 -- -- -- -- -- 96 % -- 02/20/23127 -- -- -- -- -- 95 % -- 02/20/23126 -- -- -- -- -- 95 % -- 02/20/23125 -- -- -- -- -- 95 % -- 02/20/23124 -- -- -- -- -- 95 % -- 02/20/23123 -- -- -- -- -- 95 % -- 02/20/23122 -- -- -- 68 -- 96 % -- 02/20/23121 -- -- -- -- -- 97 % -- 02/20/23120 -- -- -- -- -- 97 % -- 02/20/23119 (!) 170/82 -- -- -- -- 98 % -- 02/20/23118 -- -- -- -- -- 97 % -- 02/20/23117 -- -- -- -- -- 97 % -- 02/20/23116 -- -- -- -- -- 97 % -- 02/20/23115 -- -- -- -- -- 97 % -- 02/20/23114 -- -- -- -- -- 97 % -- 02/20/23113 -- -- -- -- -- 98 % -- 02/20/23112 -- -- -- -- -- 98 % -- 02/20/23111 -- -- -- -- -- 97 % -- 02/20/23110 -- -- -- -- -- 98 % -- 02/20/23109 -- -- -- -- -- 98 % -- 02/20/23108 -- -- -- -- -- 96 % -- 02/20/23107 -- -- -- -- -- 97 % -- 02/20/23106 -- -- -- -- -- 97 % -- 02/20/23105 -- -- -- -- -- 97 % -- 02/20/23104 -- -- -- -- -- 98 % -- 02/20/23103 -- -- -- -- -- 99 % -- 02/20/23102 -- -- -- -- -- 98 % -- 02/20/23101 -- -- -- -- -- 96 % -- 02/20/23100 -- -- -- -- -- 96 % -- 02/20/2399 -- -- -- -- -- 96 % -- 02/20/2349 -- -- -- -- -- 96 % -- 02/20/2344 (!) 178/74 -- -- 66 -- 97 % -- 02/20/2343 -- -- -- -- -- 93 % -- 02/20/2342 -- -- -- -- -- 91 % -- 02/20/2341 -- -- -- -- -- 96 % -- 02/20/2340 (!) 181/70 -- -- 68 -- 95 % -- 02/20/2339 -- -- -- -- -- 96 % -- 02/20/2338 -- -- -- -- -- 95 % -- 02/20/2337 -- -- -- -- -- 95 % -- 02/20/2336 -- -- -- -- -- 95 % -- 02/20/2335 -- -- -- -- -- 95 % -- 02/20/2334 -- -- -- -- -- 96 % -- 02/20/2333 -- -- -- -- -- 95 % -- 02/20/2332 -- -- -- -- -- 95 % -- 02/20/2331 -- -- -- -- -- 95 % -- 02/20/2330 -- -- -- -- -- 95 % -- 02/20/2329 -- -- -- -- -- 95 % -- 02/20/2328 -- -- -- -- -- 96 % -- 02/20/2327 -- -- -- -- -- 96 % -- 02/20/2326 -- -- -- -- -- 96 % -- 02/20/2325 -- -- -- -- -- 96 % -- 02/20/2324 -- -- -- -- -- 96 % -- 02/20/2323 -- -- -- -- -- 96 % -- 02/20/2322 -- -- -- -- -- 96 % -- 02/20/2321 -- -- -- -- -- 96 % -- 02/20/2320 -- -- -- -- -- 96 % -- 02/20/230 -- -- -- -- -- 96 % -- 02/20/2318 -- -- -- -- -- 96 % -- 02/20/2317 -- -- -- -- -- 97 % -- 02/20/2316 -- -- -- -- -- 98 % -- 02/20/2315 -- -- -- -- -- 98 % -- 02/20/2314 -- -- -- -- -- 96 % -- 02/20/2313 -- -- -- -- -- 96 % -- 02/20/2312 -- -- -- -- -- 96 % -- 02/20/2311 -- -- -- -- -- 96 % -- 02/20/2310 -- -- -- -- -- 97 % -- 02/20/239 -- -- -- -- -- 97 % -- 02/20/238 -- -- -- -- -- 96 % -- 02/20/237 -- -- -- -- -- 98 % -- 02/20/236 -- -- -- -- -- 98 % -- 02/20/236 -- -- -- -- -- 99 % -- 02/20/23 0005 -- -- -- -- -- 96 % -- 02/20/23 0004 -- -- -- -- -- 98 % -- 02/20/23 0003 -- -- -- -- -- 98 % -- 02/20/23 0002 -- -- -- -- -- 99 % -- 02/20/23 0001 -- -- -- -- -- 98 % -- 02/20/23 0000 -- -- -- -- -- 99 % -- 02/19/232358 -- -- -- -- -- 99 % -- 02/19/232357 -- -- -- -- -- 98 % -- 02/19/232356 -- -- -- -- -- 97 % -- 02/19/232345 (!) 168 -- -- 64 -- -- -- 02/19/232344 -- -- -- -- -- 100 % -- 02/19/232343 -- -- -- -- -- 100 % -- 02/19/232342 -- -- -- -- -- 100 % -- 02/19/232341 -- -- -- -- -- 98 % -- 02/19/232340 (!) -- -- 65 -- 100 % -- 02/19/232339 -- -- -- -- -- 100 % -- 02/19/232338 (!) -- -- 66 -- 100 % -- 02/19/232337 -- -- -- -- -- 100 % -- 02/19/232336 -- -- -- -- -- 100 % -- 02/19/232335 -- -- -- -- -- 100 % -- 02/19/232334 -- -- -- -- -- 96 % -- 02/19/232333 (!) -- -- 68 -- -- -- 02/19/232299 (!) 97.7 ??F (36.5 ??C) Oral 64 18 100 % -- 02/19/232134 (!) 185 -- -- -- -- -- -- 02/19/232111 -- -- -- -- -- 99 % -- 02/19/232110 -- -- -- -- -- 98 % -- 02/19/232109 -- -- -- -- -- 98 % -- 02/19/232108 -- -- -- -- -- 99 % -- 02/19/232107 -- -- -- -- -- 99 % -- 02/19/232106 -- -- -- -- -- 99 % -- 02/19/232105 -- -- -- -- -- 99 % -- 02/19/232104 -- -- -- -- -- 99 % -- 02/19/232100 -- -- -- -- -- 99 % -- 02/19/232099 -- -- -- -- -- 99 % -- 02/19/232058 -- -- -- -- -- 99 % -- 02/19/232057 -- -- -- -- -- 94 % -- 02/19/232056 (!) 173/89 -- -- 66 -- 99 % -- 02/19/232054 -- -- -- -- -- 98 % -- 02/19/232053 -- -- -- -- -- 98 % -- 02/19/232052 -- -- -- -- -- 99 % -- 02/19/232051 -- -- -- -- -- 98 % -- 02/19/232050 -- -- -- -- -- 98 % -- 02/19/232049 -- -- -- -- -- 99 % -- 02/19/232048 -- -- -- -- -- 99 % -- 02/19/232047 -- -- -- -- -- 99 % -- 02/19/232046 -- -- -- -- -- 99 % -- 02/19/232045 -- -- -- -- -- 99 % -- 02/19/232044 -- -- -- -- -- 99 % -- 02/19/232043 -- -- -- -- -- 100 % -- 02/19/232042 -- -- -- -- -- 100 % -- 02/19/231947 -- -- -- -- -- 99 % -- 02/19/231946 -- -- -- -- -- 99 % -- 02/19/231945 -- -- -- -- -- 98 % -- 02/19/231944 -- -- -- -- -- 98 % -- 02/19/231943 -- -- -- -- -- 98 % -- 02/19/231942 -- -- -- -- -- 98 % -- 02/19/231941 -- -- -- -- -- 98 % -- 02/19/231940 -- -- -- -- -- 99 % -- 02/19/231936 -- -- -- -- -- 99 % -- 02/19/231935 -- -- -- -- -- 99 % -- 02/19/231934 -- -- -- -- -- 99 % -- 02/19/231933 -- -- -- -- -- 99 % -- 02/19/231932 -- -- -- -- -- 99 % -- 02/19/231931 -- -- -- -- -- 100 % -- 02/19/231919 -- -- -- -- -- 97 % -- 02/19/231918 -- -- -- -- -- 96 % -- 02/19/231846 -- -- -- -- -- 99 % -- 02/19/231845 -- -- -- -- -- 100 % -- 02/19/231844 -- -- -- -- -- 99 % -- 02/19/231843 -- -- -- -- -- 100 % -- 02/19/231842 -- -- -- -- -- 100 % -- 02/19/231841 -- -- -- -- -- 100 % -- 02/19/231840 -- -- -- -- -- 99 % -- 02/19/231839 -- -- -- -- -- 99 % -- 02/19/231838 -- -- -- -- -- 99 % -- 02/19/231837 -- -- -- -- -- 100 % -- 02/19/231836 -- -- -- -- -- 99 % -- 02/19/231835 -- -- -- -- -- 99 % -- 02/19/231834 -- -- -- -- -- 100 % -- 02/19/231833 -- -- -- -- -- 100 % -- 02/19/231832 (!) 182/115 -- -- 69 -- 99 % -- 02/19/231831 -- -- -- -- -- 98 % -- 02/19/231830 -- -- -- -- 16 -- 41.1 kg (90 lb 9.7 oz) 02/19/231827 -- 98.7 ??F (37.1 ??C) Oral -- -- -- -- Physical Exam Nursing note and vitals reviewed. HENT: Mouth/Throat: Moist mucous membranes. Eyes: EOMI, nonicteric sclera Cardiovascular: Normal rate, regular rhythm, no murmurs, rubs, or gallops Pulmonary/Chest: Effort normal and breath sounds normal. No respiratory distress. No wheezes. No rales. Abdominal: Soft. TTP midepigastrum and RUQ, nondistended, no guarding or rigidity. Musculoskeletal: Normal range of motion. Neurological: Alert. Moves all extremities spontaneously. Skin: Skin is warm and dry. No rash noted. Emergency Department Course Imaging: CT Abdomen Pelvis w/o Contrast Final Result IMPRESSION: 1. No definite etiology for symptoms. Abundant stool now seen throughout right hemicolon but no obstruction or inflammatory focus evident. Laboratory: Labs Ordered and Resulted from Time of ED Arrival to Time of ED Departure COMPREHENSIVE METABOLIC PANEL - Abnormal Result Value Sodium 134 (*) Potassium 5.2 Carbon Dioxide (CO2) 26 Anion Gap 11 Urea Nitrogen 33.2 (*) Creatinine 3.79 (*) GFR Estimate 12 (*) Calcium 8.5 (*) Chloride 97 (*) Glucose 265 (*) Alkaline Phosphatase 132 AST 17 ALT 9 Protein Total 6.6 Albumin 3.3 (*) Bilirubin Total 0.2 LIPASE - Abnormal Lipase 394 (*) CBC WITH PLATELETS AND DIFFERENTIAL - Abnormal WBC Count 7.5 RBC Count 3.77 (*) Hemoglobin 10.7 (*) Hematocrit 34.1 (*) MCV 91 MCH 28.4 MCHC 31.4 (*) RDW 18.8 (*) Platelet Count 304 % Neutrophils 81 % Lymphocytes 10 % Monocytes 6 % Eosinophils 3 % Basophils 0 % Immature Granulocytes 0 NRBCs per 100 WBC 0 Absolute Neutrophils 6.0 Absolute Lymphocytes 0.8 Absolute Monocytes 0.4 Absolute Eosinophils 0.2 Absolute Basophils 0.0 Absolute Immature Granulocytes 0.0 Absolute NRBCs 0.0 ROUTINE UA WITH MICROSCOPIC REFLEX TO CULTURE - Abnormal Color Urine Light Yellow Appearance Urine Clear Glucose Urine 500 (*) Bilirubin Urine Negative Ketones Urine Negative Specific [place] Urine 1.011 Blood Urine Small (*) pH Urine 7.0 Protein Albumin Urine 200 (*) Urobilinogen Urine Normal Nitrite Urine Negative Leukocyte Esterase Urine Negative Bacteria Urine Few (*) Mucus Urine Present (*) RBC Urine 2 WBC Urine 3 Squamous Epithelials Urine 2 (*) Hyaline Casts Urine 1 TRIGLYCERIDES - Abnormal Triglycerides 150 (*) GLUCOSE BY METER - Abnormal GLUCOSE BY METER POCT 102 (*) GLUCOSE BY METER - Abnormal GLUCOSE BY METER POCT 54 (*) GLUCOSE BY METER - Abnormal GLUCOSE BY METER POCT 235 (*) GLUCOSE BY METER - Abnormal GLUCOSE BY METER POCT 166 (*) GLUCOSE MONITOR NURSING POCT GLUCOSE MONITOR NURSING POCT Emergency Department Course & Assessments: Interventions: Medications hydrALAZINE (APRESOLINE) injection 10 mg (10 mg Intravenous $Given 02/20/23 0047) ondansetron (ZOFRAN ODT) ODT tab 4 mg (has no administration in time range) Or ondansetron (ZOFRAN) injection 4 mg (has no administration in time range) glucose gel 15-30 g ( Oral See Alternative 02/20/23214) Or dextrose 50 % injection 25-50 mL (25 mLs Intravenous $Given 02/20/23214) Or glucagon injection 1 mg ( Subcutaneous See Alternative 02/20/23214) sodium chloride 0.9 % infusion ( Intravenous $New Bag 02/20/23) HYDROmorphone (DILAUDID) injection 0.2 mg (has no administration in time range) HYDROmorphone (DILAUDID) injection 0.4 mg (0.4 mg Intravenous $Given 02/19/231) bisacodyl (DULCOLAX) suppository 10 mg (has no administration in time range) nicotine Patch in Place ( Transdermal Patch in Place 02/20/23) nicotine (NICODERM CQ) 14 MG/24HR 24 hr patch 1 patch (1 patch Transdermal $Patch/Med Applied 02/19/23 199) nicotine (NICORETTE) gum 2 mg (has no administration in time range) insulin aspart (NovoLOG) injection (RAPID ACTING) (1 Units Subcutaneous $Given 02/20/23 0422) albuterol (PROVENTIL) neb solution 2.5 mg (has no administration in time range) pantoprazole (PROTONIX) IV push injection 40 mg (40 mg Intravenous $Given 02/19/23 789) cloNIDine (CATAPRES) tablet 0.1 mg (0.1 mg Oral $Given 02/20/23 0318) Independent Interpretation (X-rays, CTs, rhythm strip): None Consultations/Discussion of Management or Tests: The patient arrived in triage where vitals were measured and recorded. The patient was then escorted back to the emergency department. The patient's medical records were reviewed. Nursing notes and vitals were reviewed. I performed an exam of the patient as documented above. The patient is in agreement with my plan ofcare. Social Determinants of Health affecting care: None Disposition: The patient was admitted to the hospital under the care of Dr. Khan. Impression & Plan Medical Decision Making: Pt presents with epigastric/ruq abdominal pain. The differential diagnosis would include GERD, GIB,esophageal spasm, atypical cardiac sx's, pancreatitis, biliary colic or gallstone disease, AAA, gastroenteritis, gastritis, large vs small bowel disease, etc. Based on history, PE and labs, the most likely explanation is pancreatitis, however consideration is also given to constipation. CT does notshow any pancreatic inflammation. Given diagnostic uncertainty, would admit to trend labs and provide hydration/pain control. Pt is in agreement with this plan. All questions answered. Case discussedwith hospitalist service, Dr. Khan who accepts pt for admission. Diagnosis: ICD-10-CM 1. Acute pancreatitis, unspecified complication status, unspecified pancreatitis type K85.90 Jose F Lozano MD 02/20/23 [id number] HEMIST documented in this encounter Miscellaneous Notes * Plan of Care - Tanner Lieberman RN - 02/21/2023 5:11 PM CST Patient's After Visit Summary was reviewed with patient. Patient verbalized understanding of After Visit Summary, recommended follow up and was given an opportunity to ask questions. Discharge medications sent home with patient/family: No Discharged with other: [employer] HEMIST * Plan of Care - Tanner Lieberman RN - 02/21/2023 12:37 PM CST PRIMARY DIAGNOSIS: ACUTE PANCREATITIS, ABDOMINAL PAIN OUTPATIENT/OBSERVATION GOALS TO BE MET BEFORE DISCHARGE: 1. Pain Status: Pain free. 2. Return to near baseline physical activity: Yes 3. Cleared for discharge by consultants (if involved): N/A [employer] Consultant Nurse Safe discharge environment identified: Yes Barriers to discharge: Yes Entered by: TANNER LIEBERMAN RN 02/21/2023 Vital signs: Temp: 97.3 ??F (36.3 ??C) Temp src: Oral BP: 136/82 Pulse: 70 Resp: 18 SpO2: 100 % O2 Device: None (Room air) Alert and oriented x4. Denies abdominal pain, nausea, vomiting since morning. Reported had large BM this morning. Diet advanced to Full liquid diet and tolerated well. D5%+0.45% at 50mL/hr.HD on MWF. BG Q4hrs. Bed alarm on. Call light in reach. Possible discharge this afternoon if continue tolerating diet. Please review provider order for any additional goals. Nurse to notify provider when observation goals have been met and patient is ready for discharge. HEMIST * Plan of Care - Tanner Lieberman RN - 02/21/2023 8:34 AM CST PRIMARY DIAGNOSIS: ACUTE PANCREATITIS OUTPATIENT/OBSERVATION GOALS TO BE MET BEFORE DISCHARGE: 1. Pain Status: Pain free. 2. Return to near baseline physical activity: Yes 3. Cleared for discharge by consultants (if involved): N/A [employer] Consultant Nurse Safe discharge environment identified: Yes Barriers to discharge: Yes Entered by: TANNER LIEBERMAN RN 02/21/2023 Vital signs: Temp: 97.5 ??F (36.4 ??C) Temp src: Oral BP: (!) 170/110 Pulse: 70 Resp: 17 SpO2: 99 % O2 Device: None (Room air) Alert and oriented x4. Denies abdominal pain, nausea, vomiting this morning. Reportedhad large BM this morning. Diet advanced to clear liquid diet and tolerated well. D5%+0.45% at 50mL/hr. HD on MWF. BG Q4hrs. Bed alarm on. Call light in reach. Please review provider order for any additional goals. Nurse to notify provider when observation goals have been met and patient is ready for discharge. HEMIST * Care Plan - Ashwin Flood RN - 02/21/2023 4:00 AM CST PRIMARY DIAGNOSIS: Acute pancreatic OUTPATIENT/OBSERVATION GOALS TO BE MET BEFORE DISCHARGE: ADLs back to baseline: No Activity and level of assistance: Assist of 1 Pain status: Improved but still requiring IV narcotics. Return to near baseline physical activity: No [employer] Consultant Nurse Safe discharge environment identified: No Barriers to discharge: Yes Entered by: Ashwin Flood RN 02/21/2023 Vitals are Temp: 98.7 ??F (37.1 ??C) Temp src: Oral BP: (!) 152/55 Pulse: 67 Resp: 16 SpO2: 96 %. Patient is Alert and Oriented x4. Pt is 1 Assist with Gait Belt. Pt is on a NPO diet. complain of 9/10 pain,Dilaudid 0.4 mg given for pain and subsequent 0.2 mg administered for pain 5/10. Patient has dextrose 5% and 0.45% NaCl + KCl 20 mEq/L infusion running at 50 mL per hour. Patient had a very light sleep while she busy with her hair.patient do get dialysis 3 times in a week, next dialysis will be tomorrow Saturday. Plan: Anticipating home discharge with self care. Please review provider order for any additional goals. Nurse to notify provider when observation goals have been met and patient is ready for discharge. HEMIST * Care Plan - Ashwin Flood RN - 02/21/2023 12:00 AM CST PRIMARY DIAGNOSIS: Acute pancreatic OUTPATIENT/OBSERVATION GOALS TO BE MET BEFORE DISCHARGE: ADLs back to baseline: No Activity and level of assistance: Assist of 1 Pain status: Improved but still requiring IV narcotics. Return to near baseline physical activity: No [employer] Consultant Nurse Safe discharge environment identified: No Barriers to discharge: Yes Entered by: Ashwin Flood RN 02/21/2023 Vitals are Temp: 98.4 ??F (36.9 ??C) Temp src: Oral BP: (!) 134/96 Pulse: 62 Resp: 16 SpO2: 95 %. Patient is Alert and Oriented x4. Pt is 1 Assist with Gait Belt. Pt is on a NPO diet. complain of 9/10 pain,Dilaudid given for pain. Patient has dextrose 5% and 0.45% NaCl + KCl 20 mEq/L infusion running at 50 mL per hour. Please review provider order for any additional goals. Nurse to notify provider when observation goals have been met and patient is ready for discharge. HEMIST * Plan of Care - Teresa Parsons RN - 02/20/2023 9:05 PM CST Arrived to the floor around 2050, A&Ox4, rates abdominal pain 5/10, see Mar, Stable on RA, up SBA, PIV infusing D5NS.45, BG 90, NPO except for meds, nicotine patch-L shoulder, Fistula L upper arm, will continue to follow plan of care. Meds from her with pt (in bag), No name or dose on bottle, pt stated the medication is, Binders taken before eating, pt didn't want to send medication to pharm, agreed to not take meds while admitted and will send home, pharmacy aware. BP (!) 170/61 (BP Location: Right arm) Pulse 69 Temp 97.8 ??F (36.6 ??C) (Oral) Resp 16 Wt 40.8 kg (90 lb) SpO2 98% BMI 17.01 kg/m?? HEMIST * Pharmacy-Admission Medication History - Lina Leonard, [facility] - 02/20/2023 12:30 PM CST Pharmacist Admission Medication History Admission medication history is complete. The information provided in this note is only as accurateas the sources available at the time of the update. Information Source(s): Patient and CareEverywhere/SureScripts via in-person Pertinent Information: Patient states that she was suppose to take Lantus but didn't know how to use th vial therefore never started taking it. The patient is not sure of the dose of the Lantus. Patient ran out of [employer] in December and hasn't gotten a refill. The patient hasn't picked up the nephro- phil prescription yet. Of note, pt states that she was given a new prescription at last hospital admission to take furosemide 80 mg but once that prescription ran out, she went back to 40 mg daily because a continuing prescription was not written for the 80 mg. Changes made to PRES[employer]ENEFIT SPECIALIST medication list: Added: Nephrovite Deleted: gabapentin, senna-docusate Changed: refresh from left eye to both eyes and from four times daily to two times daily, labetololfrom 300 mg three times daily to 600 mg two times daily, nicotine patch Allergies reviewed with patient and updates made in EHR: yes Medication History Completed By: Lina Leonard [facility] 02/20/2023 12:30 PM Prior to Admission medications Medication Sig Last Dose Taking? Auth Provider Lead Housekeeper End Date albuterol (PROVENTIL) (2.5 MG/3ML) 0.083% neb solution Take 2.5 mg by nebulization every 4 hours asneeded for shortness of breath prn at prn Yes Unknown, Entered By History Yes amLODIPine (NORVASC) 10 MG tablet Take 10 mg by mouth 2 times daily 02/19/2023 Yes Unknown, Entered By History Yes aspirin 81 MG EC tablet Take 81 mg by mouth every evening 02/18/2023 at pm Yes Unknown, Entered By History carboxymethylcellulose PF (REFRESH PLUS) 0.5 % ophthalmic solution Place 1 drop into both eyes 2 times daily 02/19/2023 Yes Unknown, Entered By History cetirizine (ZYRTEC) 10 MG tablet Take 10 mg by mouth every evening 02/18/2023 at pm Yes Unknown, Entered By History cloNIDine (CATAPRES) 0.1 MG tablet Take 0.3 mg by mouth every evening 02/18/2023 Yes Unknown, EnteredBy History Yes cloNIDine (CATAPRES) 0.1 MG tablet Take 0.2 mg by mouth every morning 02/18/2023 Yes Unknown, EnteredBy History Yes erythromycin (ROMYCIN) 5 MG/GM ophthalmic ointment Place Into the left eye 4 times daily Yes Unknown, Entered By History furosemide (LASIX) 40 MG tablet Take 40 mg by mouth daily 02/19/2023 Yes Unknown, Entered By History Yes glipiZIDE (GLUCOTROL XL) 10 MG 24 hr tablet Take 20 mg by mouth every morning 02/19/2023 at am Yes Unknown, Entered By History Yes ipratropium - albuterol 0.5 mg/2.5 mg/3 mL (DUONEB) 0.5-2.5 (3) MG/3ML neb solution Inhale 3 mLs into the lungs every 6 hours as needed for shortness of breath prn at prn Yes Unknown, Entered By History Yes labetalol (NORMODYNE) 300 MG tablet Take 600 mg by mouth 2 times daily 02/19/2023 Yes Unknown, Entered By History Yes grwhcqja-[id number]-[id number] (MAXITROL) 3.5-70645-4.[address] 0.25 inches Into the left eye 4 times daily 02/19/2023 Yes Unknown, Entered By History nicotine (NICODERM CQ) 21 MG/24HR [address] 1 patch onto the skin every 24 hours 02/19/2023 at currently on Yes Unknown, Entered By History oxyCODONE (ROXICODONE) 5 MG tablet Take 10 mg by mouth at bedtime 02/18/2023 at pm Yes Unknown, Entered By History pantoprazole (PROTONIX) 40 MG EC tablet Take 1 tablet (40 mg) by mouth 2 times daily (before meals)02/19/2023 Yes Lisa Ospina MD polyethylene glycol (MIRALAX) 17 g packet Take 1 packet by mouth every 3 days 02/17/2023 Yes Unknown,Entered By History repaglinide (PRANDIN) 1 MG tablet Take 1 tablet by mouth 3 times daily (before meals) 02/19/2023 Yes Unknown, Entered By History Yes senna (SENOKOT) 8.6 MG tablet Take 1 tablet by mouth every 3 days 02/17/2023 Yes Unknown, Entered By History sorbitol 70 % SOLN solution Take 30 mLs by mouth every 3 days 02/17/2023 Yes Unknown, Entered By History triamcinolone (KENALOG) 0.1 % external cream Apply topically daily as needed for irritation prn at prn Yes Unknown, Entered By History umeclidinium (INCRUSE ELLIPTA) 62.5 MCG/ACT inhaler Inhale 1 puff into the lungs daily Past Month at ran out of [facility] Yes Lisa Ospina MD furosemide (LASIX) 80 MG tablet Take 1 tablet (80 mg) by mouth 2 times daily Take 1 tablet twice a day on Saturday, Saturday, , Saturday Patient not taking: Reported on 02/20/2023 Not Taking Lisa Ospina MD Yes multivitamin RENAL (RENAVITE RX/NEPHROVITE) 1 tablet tablet Take 1 tablet by mouth daily at not picked up yet Unknown, Entered By History HEMIST documented in this encounter Plan of Treatment Not on file documented as of this encounter Procedures Procedure Name Priority Date/Time Associated Diagnosis Comments GLUCOSE BY METER Routine 02/21/2023 3:54 PM BIOCHEMIST GLUCOSE BY METER Routine 02/21/2023 12:0 2 PM BI[facility] BASIC METABOLIC PANEL Routine 02/21/2023 8:16 AM BIOCHEMIST CBC WITH PLATELETS Routine 02/21/2023 8: 16 AM BI[facility]ST GLUCOSE BY METER Routine 02/21/2023 8:02 AM BI[facility]ST GLUCOSE BY METER Routine 02/21/2023 4:31 AM BIOCHEMIST GLUCOSE BY METER Routine 02/21/2023 1:08 AM [facility] GLUCOSE BY METER Routine 02/20/2023 8:54 PM [facility] HEPATITIS B SURFACE ANTIBODY STAT 02/20/2023 3:47 PM [facility] GLUCOSE BY METER STAT 02/20/2023 2:50 PM [facility] GLUCOSE BY METER STAT 02/20/2023 12:0 3 PM [facility] GLUCOSE BY METER STAT 02/20/2023 9:59 AM [facility] LIPASE STAT 02/20/2023 8:52 AM [facility] HEPATITIS B SURFACE ANTIGEN Add-On 02/20/2023 8:52 AM [facility] COMPREHENSIVE METABOLIC PANEL STAT 02/20/2023 8:52 AM BI[facility] CBC WITH PLATELETS STAT 02/20/2023 8: 52 AM BI[facility] GLUCOSE BY METER STAT 02/20/2023 4:20 AM BI[facility]ST GLUCOSE BY METER STAT 02/20/2023 2:33 AM BI[facility] GLUCOSE BY METER STAT 02/20/2023 2:03 AM [facility] GLUCOSE BY METER STAT 02/19/2023 11:[address] ABDOMEN PELVIS W/O CONTRAST STAT 02/19/2023 9:30 PM BIOCHEMIST ROUTINE UA WITH MICROSCOPIC REFLEX TO CULTURE STAT 02/19/2023 7:19 PM BIOCHEMIST EXTRA TUBE STAT 02/19/2023 7:18 PM BIOCHEMIST EXTRA RED TOP TUBE STAT 02/19/2023 7: 18 PM BIOCHEMIST EXTRA BLUE TOP TUBE STAT 02/19/2023 7 :18 PM BIOCHEMIST CBC WITH PLATELETS AND DIFFERENTIAL STAT 02/19/2023 7:18 PM BIOCHEMIST CBC WITH PLATELETS & DIFFERENTIAL STAT 02/19/2023 7:18 PM BI[facility]ST TRIGLYCERIDES Add-On 02/19/2023 7:18 PM BIOCHEMIST LIPASE STAT 02/19/2023 7:18 PM [facility] COMPREHENSIVE METABOLIC PANEL STAT 02/19/2023 7:18 PM BIOCHEMIST documented in this encounter Results * (ABNORMAL) Glucose by meter (02/21/2023 3:54 PM BIOCHEMIST) GLUCOSE BY METER POCT 257(H) 70 - 99 mg/dL 02/21/2023 4:44 PM [facility] LABORATORY POC Blood, Capillary BLOOD SPECIMEN / Unknown 02/21/2023 3:54 PM BIOCHEMIST 02/21/2023 4:44 PM BIOCHEMIST Joseph JEFFERSON POCT LABORATORY [facility] [address] Lab (1st floor, no room number) [place] [address], [facility] [phone] * (ABNORMAL) Glucose by meter (02/21/2023 12:02 PM BIOCHEMIST) GLUCOSE BY METER POCT 244(H) 70 - 99 mg/dL 02/21/2023 12:09 PM [facility] LABORATORY POC Blood, Capillary BLOOD SPECIMEN / Unknown 02/21/2023 12:02 PM BIOCHEMIST 02/21/2023 12:09 PM BIOCHEMIST Joseph JEFFERSON POCT LABORATORY POC [facility] Lab [address] Lab (1st floor, no room number) [place] [address], [facility] [phone] * (ABNORMAL) CBC with platelets (02/21/2023 8:16 AM BIOCHEMIST) WBC Count 6.6 4.0 - 11.0 10e3/uL 02/21/2023 8:39 AM BI[facility] RH LABORATORY RBC Count 4.43 3.80 - 5.20 10e6/uL 02/21/2023 8:39 AM [facility] RH LABORATORY Hemoglobin 12.3 11.7 - 15.7 g/dL 02/21/2023 8:39 AM [facility] RH LABORATORY Hematocrit 39.2 35.0 - 47.0 % 02/21/2023 8:39 AM [facility] RH LABORATORY MCV 89 78 - 100 fL 02/21/2023 8:39 AM [facility] RH LABORATORY MCH 27.8 26.5 - 33.0 pg 02/21/2023 8:39 AM [facility] RH LABORATORY MCHC 31.4(L) 31.5 - 36.5 g/dL 02/21/2023 8:39 AM [facility] RH LABORATORY RDW 19.3(H) 10.0 - 15.0 % 02/21/2023 8:39 AM [facility] RH LABORATORY Platelet Count 292 150 - 450 10e3/uL 02/21/2023 8:39 AM [facility] RH LABORATORY Blood STRUCTURE OF RIGHT HAND / Unknown Venipuncture / Unknown 02/21/2023 8:16 AM BIOCHEMIST 02/21/2023 8:34 AM BIOCHEMIST Nidia Yanez DO LAB - BLOOD ORDER JOSEFA RH LABORATORY [facility] Lab [address] Lab (1st floor, no room number) [place] [address], [facility] [phone] * (ABNORMAL) Basic metabolic panel (02/21/2023 8:16 AM BIOCHEMIST) Sodium 134(L) 135 - 145 mmol/L 02/21/2023 8:55 AM [facility] RH LABORATORY Comment:Reference intervals for this test were updated on 11/06/2022 to more accurately reflect our healthy population. There may be differences in the flagging of prior results with similar values performed with this method. Interpretation of those prior results can be made in the context of the updated reference intervals. Potassium 4.0 3.4 - 5.3 mmol/L 02/21/2023 8:55 AM [facility] Chloride 97(L) 98 - 107 mmol/L 02/21/2023 8:55 AM [facility] Carbon Dioxide (CO2) 28 22 - 29 mmol/L 02/21/2023 8:55 AM [facility] Anion Gap 9 7 - 15 mmol/L 02/21/2023 8:55 AM [facility] Urea Nitrogen 12.8 8.0 - 23.0 mg/dL 02/21/2023 8:55 AM [facility] Creatinine 2.49(H) 0.51 - 0.95 mg/dL 02/21/2023 8:55 AM [facility] GFR Estimate 20(L) >60 mL/min/1. 73m2 02/21/2023 8:55 AM [facility] Calcium 8.6(L) 8.8 - 10.2 mg/dL 02/21/2023 8:55 AM [facility] Glucose 144(H) 70 - 99 mg/dL 02/21/2023 8:55 AM [facility] Blood STRUCTURE OF RIGHT HAND / Unknown Venipuncture / Unknown 02/21/2023 8:16 AM BIOCHEMIST 02/21/2023 8:34 AM [facility] Nidia Yanez DO LAB - BLOOD ORDER JOSEFA LABORATORY [facility] Lab [address] [facility] Lab (1st floor, no room number) [place] [address], [facility] [phone] * (ABNORMAL) Glucose by meter (02/21/2023 8:02 AM [facility]) [facility] GLUCOSE BY METER POCT 148(H) 70 - 99 mg/dL 02/21/2023 8:10 AM [facility] POC Blood, Capillary BLOOD SPECIMEN / Unknown 02/21/2023 8:02 AM BIOCHEMIST 02/21/2023 8:10 AM BIOCHEMIST Joseph LU - BEAKER POCT [facility] Lab [address] Lab (1st floor, no room number) [place] [address], [place] [phone] * (ABNORMAL) Glucose by meter (02/21/2023 4:31 AM BIOCHEMIST) GLUCOSE BY METER POCT 134(H) 70 - 99 mg/dL 02/21/2023 4:38 AM [facility] LABORATORY POC Blood, Capillary BLOOD SPECIMEN / Unknown 02/21/2023 4:31 AM BIOCHEMIST 02/21/2023 4:38 AM BIOCHEMIST Joseph LU - BEKYRIE POCT Performing Organization Address City/[facility]/ZIP Co de Phone Number LABORATORY [facility] [address] Lab (1st floor, no room number) [place] [address], [place] [phone] * (ABNORMAL) Glucose by meter (02/21/2023 1:08 AM BIOCHEMIST) GLUCOSE BY METER POCT 131(H) 70 - 99 mg/dL 02/21/2023 1:17 AM [facility] LABORATORY POC Blood, Capillary BLOOD SPECIMEN / Unknown 02/21/2023 1:08 AM BIOCHEMIST 02/21/2023 1:17 AM BIOCHEMIST Joseph LU - RONNY POCT LABORATORY [facility] Lab [address] Lab (1st floor, no room number) [place] [address], [place] [phone] * Glucose by meter (02/20/2023 8:54 PM BIOCHEMIST) GLUCOSE BY METER POCT 90 70 - 99 mg/dL 02/20/2023 9:02 PM [facility] LABORATORY POC Blood, Capillary BLOOD SPECIMEN / Unknown 02/20/2023 8:54 PM BIOCHEMIST 02/20/2023 9:02 PM BIOCHEMIST Joseph Jeffers MD LAB - BEAKER POCT LABORATORY [facility] [address] Lab (1st floor, no room number) [place] [address], [place] [phone] * Hepatitis B Surface Antibody (02/20/2023 3:47 PM BIOCHEMIST) Hepatitis B Surface Antibody Reactive 02/20/2023 9:13 PM BIOCHE[facility]ST [facility] LABORATORY Comment:A reactive result in dicates [...] Value 17.90 <8.5 m[IU]/mL 02/20/2023 9:13 PM [facility] LABORATORY Blood STRUCTURE OF RIGHT HAND / Unknown Venipuncture / Unknown 02/20/2023 3:47 PM BIOCHEMIST 02/20/2023 4:08 PM BIOCHEMIST Michele Chaudhary MD LAB - BLOOD ORDERABL ES U LABORATORY [facility] [place] [facility] [address] [facility], [address] [place] [address], [place] [phone] * (ABNORMAL) Glucose by meter (02/20/2023 2:50 PM BIOCHEMIST) GLUCOSE BY METER POCT 174(H) 70 - 99 mg/dL 02/20/2023 2:57 PM [facility] LABORATORY POC Blood, Capillary BLOOD SPECIMEN / Unknown 02/20/2023 2:50 PM BIOCHEMIST 02/20/2023 2:57 PM BIOCHEMIST Eva Jackson MD LAB - BEAKER POC T LABORATORY [facility] Lab [address] Lab (1st floor, no room number) [place] [address], [facility] [phone] * (ABNORMAL) Glucose by meter (02/20/2023 12:03 PM BIOCHEMIST) GLUCOSE BY METER POCT 160(H) 70 - 99 mg/dL 02/20/2023 12:10 PM [facility] LABORATORY POC Blood, Capillary BLOOD SPECIMEN / Unknown 02/20/2023 12:03 PM BIOCHEMIST 02/20/2023 12:10 PM BIOCHEMIST Eva Jackson MD LAB - BEAKER POC T Performing Organization Address [facility]/ZIP Co de Phone Number LABORATORY [facility] Lab [address] Lab (1st floor, no room number) [place] [address], [place] [phone] * (ABNORMAL) Glucose by meter (02/20/2023 9:59 AM BIOCHEMIST) GLUCOSE BY METER POCT 131(H) 70 - 99 mg/dL 02/20/2023 10:06 AM [facility] LABORATORY POC Blood, Capillary BLOOD SPECIMEN / Unknown 02/20/2023 9:59 AM BIOCHEMIST 02/20/2023 10:06 AM BIOCHEMIST Eva Jackson MD LAB - BEAKER POC T LABORATORY [facility] Lab [address] Lab (1st floor, no room number) [place] [address], [place] [phone] * Hepatitis B surface antigen (02/20/2023 8:52 AM BIOCHEMIST) Hepatitis B Surface Antigen Nonreactive Nonreactive 02/21/2023 8:30 AM BIOCHEMIST U LABORATORY Blood STRUCTURE OF LEFT UPPER LIMB / Unknown Venipuncture / Unknown 02/20/2023 8:52 AM BIOCHEMIST 02/20/2023 8:59 AM BIOCHEMIST Michele Chaudhary MD LAB - BLOOD ORDERABL ES UU LABORATORY [facility] [place] [facility] [address] [facility], [address] [address], [facility] [phone] * (ABNORMAL) CBC with platelets (02/20/2023 8:52 AM BIOCHEMIST) Pathologist [facility] WBC Count 7.5 4.0 - 11.0 10e3/uL 02/20/2023 9:03 AM [facility] LABORATORY RBC Count 4.15 3.80 - 5.20 10e6/uL 02/20/2023 9:03 AM [facility] LABORATORY Hemoglobin 11.6(L) 11.7 - 15.7 g/dL 02/20/2023 9:03 AM [facility] LABORATORY Hematocrit 37.0 35.0 - 47.0 % 02/20/2023 9:03 AM [facility] LABORATORY MCV 89 78 - 100 fL 02/20/2023 9:03 AM [facility] LABORATORY MCH 28.0 26.5 - 33.0 pg 02/20/2023 9:03 AM [facility] LABORATORY MCHC 31.4(L) 31.5 - 36.5 g/dL 02/20/2023 9:03 AM [facility] LABORATORY RDW 18.9(H) 10.0 - 15.0 % 02/20/2023 9:03 AM [facility] LABORATORY Platelet Count 335 150 - 450 10e3/uL 02/20/2023 9:03 AM [facility] LABORATORY Blood STRUCTURE OF LEFT UPPER LIMB / Unknown Venipuncture / Unknown 02/20/2023 8:52 AM BIOCHEMIST 02/20/2023 8:59 AM BIOCHEMIST Kai Khan DO LAB - BLOOD ORDERA BLES RH LABORATORY [facility] Lab [address] Lab (1st floor, no room number) [place] [address], [facility] [phone] * (ABNORMAL) Lipase (02/20/2023 8:52 AM BIOCHEMIST) Lipase 186(H) 13 - 60 U/L 02/20/2023 9:27 AM [facility] LABORATORY Blood STRUCTURE OF LEFT UPPER LIMB / Unknown Venipuncture / Unknown 02/20/2023 8:52 AM BIOCHEMIST 02/20/2023 8:59 AM BIOCHEMIST Kai Khan DO LAB - BLOOD ORDERA BLES LABORATORY [facility] [address] Lab (1st floor, no room number) [place] [address], [facility] [phone] * (ABNORMAL) Comprehensive metabolic panel (02/20/2023 8:52 AM BIOCHEMIST) Sodium 135 135 - 145 mmol/L 02/20/2023 9:27 AM [facility] Comment:Reference intervals for this test were updated on 11/06/2022 to more accurately reflect our healthy population. There may be differences in the flagging of prior results with similar values performed with this method. Interpretation of those prior results can be made in the context of the updated reference intervals. Potassium 4.2 3.4 - 5.3 mmol/L 02/20/2023 9:27 AM [facility] Carbon Dioxide (CO2) 25 22 - 29 mmol/L 02/20/2023 9:27 AM [facility] Anion Gap 12 7 - 15 mmol/L 02/20/2023 9:27 AM [facility] Urea Nitrogen 34.5(H) 8.0 - 23.0 mg/dL 02/20/2023 9:27 AM [facility] Creatinine 3.81(H) 0.51 - 0.95 mg/dL 02/20/2023 9:27 AM [facility] GFR Estimate 12(L) >60 mL/min/1. 73m2 02/20/2023 9:27 AM [facility] Calcium 8.7(L) 8.8 - 10.2 mg/dL 02/20/2023 9:27 AM [facility] LABORATORY Chloride 98 98 - 107 mmol/L 02/20/2023 9:27 AM [facility] Glucose 112(H) 70 - 99 mg/dL 02/20/2023 9:27 AM [facility] LABORATORY Alkaline Phosphatase 122 40 - 150 U/L 02/20/2023 9:27 AM [facility] Comment:Reference intervals for this test were updated on 12/25/2022 to more accurately reflect our healthy population. There may be differences in the flagging of prior results with similar values performed with this method. Interpretation of those prior results can be made in the context of the updated reference intervals. AST 18 0 - 45 U/L 02/20/2023 9:27 AM [facility] Comment:Reference intervals for this test were updated on 07/23/2022 to more accurately reflect our healthy population. There may be differences in the flagging of prior results with similar values performed with this method. Interpretation of those prior results can be made in the context of the updated reference intervals. ALT 5 0 - 50 U/L 02/20/2023 9:27 AM [facility] Comment:Reference intervals for this test were updated on 07/23/2022 to more accurately reflect our healthy population. There may be differences in the flagging of prior results with similar values performed with this method. Interpretation of those prior results can be made in the context of the updated reference intervals. Protein Total 6.3(L) 6.4 - 8.3 g/dL 02/20/2023 9:27 AM [facility] Albumin 3.2(L) 3.5 - 5.2 g/dL 02/20/2023 9:27 AM [facility] Bilirubin Total 0.2 <=1.2 mg/dL 02/20/2023 9:27 AM [facility] Blood STRUCTURE OF LEFT UPPER LIMB / Unknown Venipuncture / Unknown 02/20/2023 8:52 AM BIOCHEMIST 02/20/2023 8:59 AM BIOCHEMIST Kai Khan DO LAB - BLOOD ORDERA BLES LABORATORY [facility] Lab [address] Lab (1st floor, no room number) [place] [address], [place] [phone] * (ABNORMAL) Glucose by meter (02/20/2023 4:20 AM BIOCHEMIST) GLUCOSE BY METER POCT 166(H) 70 - 99 mg/dL 02/20/2023 4:27 AM BIOCHEMIST RH LABORATORY POC Blood, Capillary BLOOD SPECIMEN / Unknown 02/20/2023 4:20 AM BIOCHEMIST 02/20/2023 4:27 AM BIOCHEMIST Arsenio Oviedo MD LAB - [facility] POCT LABORATORY [facility] Lab [address] Lab (1st floor, no room number) [place] [address], [place] [phone] * (ABNORMAL) Glucose by meter (02/20/2023 2:33 AM BIOCHEMIST) GLUCOSE BY METER POCT 235(H) 70 - 99 mg/dL 02/20/2023 2:40 AM BIOCHEMIST RH LABORATORY POC Blood, Capillary BLOOD SPECIMEN / Unknown 02/20/2023 2:33 AM BIOCHEMIST 02/20/2023 2:40 AM BIOCHEMIST Arsenio LU - BEAKER POCT LABORATORY [facility] Lab [address] Lab (1st floor, no room number) [place] [address], [place] [phone] * (ABNORMAL) Glucose by meter (02/20/2023 2:03 AM BIOCHEMIST) GLUCOSE BY METER POCT 54(L) 70 - 99 mg/dL 02/20/2023 2:10 AM BIOCHEMIST RH LABORATORY POC Blood, Capillary BLOOD SPECIMEN / Unknown 02/20/2023 2:03 AM BIOCHEMIST 02/20/2023 2:10 AM BIOCHEMIST Arsenio Oviedo MD LAB - BEAKER POCT Performing Organization Address City/[facility]/ZIP Co de Phone Number LABORATORY [facility] [address] Lab (1st floor, no room number) [place] [address], [facility] [phone] * (ABNORMAL) Glucose by meter (02/19/2023 11:40 PM BIOCHEMIST) [facility] GLUCOSE BY METER POCT 102(H) 70 - 99 mg/dL 02/19/2023 11:49 PM BIOCHEMIST LABORATORY POC Blood, Capillary BLOOD SPECIMEN / Unknown 02/19/2023 11:40 PM BIOCHEMIST 02/19/2023 11:49 PM BIOCHEMIST Kai Khan DO LAB - RONNY POCT Performing Organization Address [facility]/ZIP Co de Phone Number LABORATORY [facility] [address] Lab (1st floor, no room number) [place] [address], [facility] [phone] * CT Abdomen Pelvis w/o Contrast (02/19/2023 9:30 PM BIOCHEMIST) Anatomical Region Laterality Modality Abdomen/Pelvis, SUBRAD CT PRISCA DY, UMP CT ABDOMEN PELVIS, RAD CT Computed Tomography 02/19/2023 9:30 PM BIOCHEMIST Impressions 02/19/2023 9:46 PM BIOCHEMIST IMPRESSION: 1. ??No definite etiology for symptoms. Abundant stool now seen throughout right hemicolon but no obstruction or inflammatory focus evident. Narrative 02/19/2023 9:46 PM BIOCHEMIST EXAM: CT ABDOMEN PELVIS W/O CONTRAST LOCATION: [facility] DATE: 02/19/2023 INDICATION: ruq epigastric abd pain [...] EXAM: CT ABDOMEN PELVIS W/O CONTRAST LOCATION: [facility] DATE: 02/19/2023 INDICATION: ruq epigastric abd pain [...] Microscopic reflex to Culture (02/19/2023 7:19 PM BIOCHEMIST) Color Urine Light Yellow Colorless, Straw, Light Yellow, Yellow 02/19/2023 7:47 PM BIOCHEMIST RH LABORATORY Appearance Urine Clear Clear 02/19/19 24 7:47 PM BIOCHEMIST RH LABORATORY Glucose Urine 500(A) Negative mg/dL 02/19/2023 7:47 PM BIOCHEMIST RH LABORATORY Bilirubin Urine Negative Negative 7:47 PM BIOCHEMIST LABORATORY Ketones Urine Negative Negative mg/dL 02/19/2023 7:47 PM BIOCHEMIST LABORATORY Specific [place] Urine 1.011 1.003 - 1.035 02/19/2023 7:47 PM BIOC[facility]MIST LABORATORY Blood Urine Small(A) Negative 02/19/2023 7:47 PM [facility]ST LABORATORY pH Urine 7.0 5.0 - 7.0 02/19/2023 7:47 PM [facility] LABORATORY Protein Albumin Urine 200(A) Negative mg/dL 02/19/2023 7:47 PM BI[facility]ST LABORATORY Urobilinogen Urine Normal Normal, 2.0 mg/dL 02/19/2023 7:47 PM BIOCHEMIST LABORATORY Nitrite Urine Negative Negative 02/19/2023 7:47 PM [facility] LABORATORY Leukocyte Esterase Urine Negative Negative 02/19/2023 7:47 PM BIOCHE[facility]ST LABORATORY Bacteria Urine Few(A) None Seen /HPF 02/19/2023 7:47 PM BIOCHEMIST LABORATORY Mucus Urine Present(A) None Seen /LPF 02/19/2023 7:47 PM BIOCHEMIST LABORATORY RBC Urine 2 <=2 /HPF 02/19/2023 7:47 PM BI[facility]HEMIST LABORATORY WBC Urine 3 <=5 /HPF 02/19/2023 7:47 PM BIOCHEMIST LABORATORY Squamous Epithelials Urine 2(H) <=1 /HPF 02/19/2023 7:47 PM [facility] LABORATORY Hyaline Casts Urine 1 <=2 /LPF 02/19/2023 7:47 PM [facility] LABORATORY Urine URINE SPECIMEN OBTAINED BY CLEAN CATCH PROCEDURE / Unknown Non-blood Collection / Unknown 02/19/2023 7:19 PM BIOCHEMIST 02/19/2023 7:34 PM BIOCHEMIST Narrative LABORATORY - 02/19/2023 7:47 PM BIOCHEMIST Urine Culture not indicated Jose F Lozano MD LAB - URINE ORDER JOSEFA LABORATORY [facility] Lab [address] Lab (1st floor, no room number) [place] [address], [facility] [phone] * (ABNORMAL) Triglycerides (02/19/2023 7:18 PM BIOCHEMIST) Triglycerides 150(H) <150 mg/dL 02/20/2023 3:18 AM BIOCHEMIST U LABORATORY Comment: 2-9 years: Normal: ?Less [...] Unknown Venipuncture / Unknown 02/19/2023 7:18 PM BIOCHEMIST 02/19/2023 7:22 PM BIOCHEMIST Kai Khan DO LAB - BLOOD ORDERA BLES LABORATORY [facility] [place] [facility] [address] [facility], [address] [place] [address], [place] [phone] * Extra Red Top Tube (02/19/2023 7:18 PM BIOCHEMIST) Hold Specimen C 02/19/2023 8:31 PM BIOCHEMIST LABORATORY Blood BLOOD SPECIMEN / Unknown Venipuncture / Unknown 02/19/2023 7:18 PM BIOCHEMIST 02/19/2023 7:22 PM BIOCHEMIST Jose F Lozano MD LAB - BLOOD ORDER JOSEFA LABORATORY [facility] Lab [address] [facility] Lab (1st floor, no room number) [place] [address], [place] [phone] * Extra Blue Top Tube (02/19/2023 7:18 PM BIOCHEMIST) Hold Specimen [facility] 02/19/2023 8:31 PM BIOCHEMIST RH LABORATORY Blood BLOOD SPECIMEN / Unknown Venipuncture / Unknown 02/19/2023 7:18 PM BIOCHEMIST 02/19/2023 7:22 PM [facility] Jose F Lozano MD LAB - BLOOD ORDER [facility] [address] Lab (1st floor, no room number) [place] [address], [facility] [phone] * (ABNORMAL) CBC with platelets and differential (02/19/2023 7:18 PM [facility]) WBC Count 7.5 4.0 - 11.0 10e3/uL 02/19/2023 7:25 PM [facility] RBC Count 3.77(L) 3.80 - 5.20 10e6/uL 02/19/2023 7:25 PM [facility] Hemoglobin 10.7(L) 11.7 - 15.7 g/dL 02/19/2023 7:25 PM [facility] Hematocrit 34.1(L) 35.0 - 47.0 % 02/19/2023 7:25 PM [facility] MCV 91 78 - 100 fL 02/19/2023 7:25 PM [facility] MCH 28.4 26.5 - 33.0 pg 02/19/2023 7:25 PM [facility] MCHC 31.4(L) 31.5 - 36.5 g/dL 02/19/2023 7:25 PM [facility] RDW 18.8(H) 10.0 - 15.0 % 02/19/2023 7:25 PM [facility] Platelet Count 304 150 - 450 10e3/uL 02/19/2023 7:25 PM [facility] % Neutrophils 81 % 02/19/2023 7:25 PM [facility] % Lymphocytes 10 % 02/19/2023 7:25 PM [facility] % Monocytes 6 % 02/19/2023 7:25 PM [facility] % Eosinophils 3 % 02/19/2023 7:25 PM [facility] % Basophils 0 % 02/19/2023 7:25 PM [facility] % Immature Granulocytes 0 % 02/19/2023 7:25 PM [facility] NRBCs per 100 WBC 0 <1 /100 024 7:25 PM [facility] Absolute Neutrophils 6.0 1.6 - 8.3 10e3/uL 02/19/2023 7:25 PM [facility] Absolute Lymphocytes 0.8 0.8 - 5.3 10e3/uL 02/19/2023 7:25 PM [facility] Absolute Monocytes 0.4 0.0 - 1.3 10e3/uL 02/19/2023 7:25 PM [facility] Absolute Eosinophils 0.2 0.0 - 0.7 10e3/uL 02/19/2023 7:25 PM [facility] Absolute Basophils 0.0 0.0 - 0.2 10e3/uL 02/19/2023 7:25 PM [facility] Absolute Immature Granulocytes 0.0 <=0.4 10e3/uL 02/19/2023 7:25 PM [facility] Absolute NRBCs 0.0 10e3/uL 02/19/2023 7:25 PM [facility] Blood BLOOD SPECIMEN / Unknown Venipuncture / Unknown 02/19/2023 7:18 PM [facility] 02/19/2023 7:22 PM [facility] Jose F Lozano MD LAB - BLOOD ORDER [facility] [address] [facility] Lab (1st floor, no room number) [place] [address] [phone] * (ABNORMAL) Lipase (02/19/2023 7:18 PM [facility]) Lipase 394(H) 13 - 60 U/L 02/19/2023 8:09 PM [facility] Blood BLOOD SPECIMEN / Unknown Venipuncture / Unknown 02/19/2023 7:18 PM [facility] 02/19/2023 7:22 PM [facility] Jose F Lozano MD LAB - BLOOD ORDER [facility] [address] [facility] Lab (1st floor, no room number) [place] [address], [facility] [phone] * (ABNORMAL) Comprehensive metabolic panel (02/19/2023 7:18 PM [facility]) Sodium 134(L) 135 - 145 mmol/L 02/19/2023 7:40 PM [facility] Comment:Reference intervals for this test were updated on 11/06/2022 to more accurately reflect our healthy population. There may be differences in the flagging of prior results with similar values performed with this method. Interpretation of those prior results can be made in the context of the updated reference intervals. Potassium 5.2 3.4 - 5.3 mmol/L 02/19/2023 7:40 PM [facility] Carbon Dioxide (CO2) 26 22 - 29 mmol/L 02/19/2023 7:40 PM [facility] Anion Gap 11 7 - 15 mmol/L 02/19/2023 7:40 PM [facility] Urea Nitrogen 33.2(H) 8.0 - 23.0 mg/dL 02/19/2023 7:40 PM [facility] Creatinine 3.79(H) 0.51 - 0.95 mg/dL 02/19/2023 7:40 PM [facility] GFR Estimate 12(L) >60 mL/min/1. 73m2 02/19/2023 7:40 PM [facility] Calcium 8.5(L) 8.8 - 10.2 mg/dL 02/19/2023 7:40 PM [facility] Chloride 97(L) 98 - 107 mmol/L 02/19/2023 7:40 PM [facility] Glucose 265(H) 70 - 99 mg/dL 02/19/2023 7:40 PM [facility] Alkaline Phosphatase 132 40 - 150 U/L 02/19/2023 7:40 PM [facility] Comment:Reference intervals for this test were updated on 12/25/2022 to more accurately reflect our healthy population. There may be differences in the flagging of prior results with similar values performed with this method. Interpretation of those prior results can be made in the context of the updated reference intervals. AST 17 0 - 45 U/L 02/19/2023 7:40 PM [facility] Comment:Reference intervals for this test were updated on 07/23/2022 to more accurately reflect our healthy population. There may be differences in the flagging of prior results with similar values performed with this method. Interpretation of those prior results can be made in the context of the updated reference intervals. ALT 9 0 - 50 U/L 02/19/2023 7:40 PM [facility] Comment:Reference intervals for this test were updated on 07/23/2022 to more accurately reflect our healthy population. There may be differences in the flagging of prior results with similar values performed with this method. Interpretation of those prior results can be made in the context of the updated reference intervals. Protein Total 6.6 6.4 - 8.3 g/dL 02/19/2023 7:40 PM [facility] Albumin 3.3(L) 3.5 - 5.2 g/dL 02/19/2023 7:40 PM [facility] Bilirubin Total 0.2 <=1.2 mg/dL 02/19/2023 7:40 PM [facility] Blood BLOOD SPECIMEN / Unknown Venipuncture / Unknown 02/19/2023 7:18 PM [facility] 02/19/2023 7:22 PM [facility] Jose F Lozano MD LAB - BLOOD ORDER [facility] [address] [facility] Lab (1st floor, no room number) [place] [address], [facility] [phone] documented in this encounter Visit Diagnoses Diagnosis Acute pancreatitis, unspecified complication status, unspecified pancreatitis type- Primary Acute pancreatitis, unspecified complication status, unspecified pancreatitis type Constipation, unspecified constipation type documented in this encounter Admitting Diagnoses Diagnosis Acute pancreatitis, unspecified complication status, unspecified pancreatitis type documented in this encounter Administered Medications Inactive Administered Medications - up to 3 most recent administrations Medication Order MAR Action Action Date Dose Rate Site - MEDICATION INSTRUCTIONS for Dialysis Patients - SEE ADMIN INSTRUCTIONS, Starting on Gemma 02/21/23 at 1437, Until Sat02/21/23 at 1912, Do not give any medication that may affect blood pressure or volume before dialysis. The following medications may be removed by dialysis and should be given after dialysis: aspirin, renal multivitamin albuterol (PROVENTIL) neb solution 2.5 mg 2.5 mg, Nebulization, EVERY 2 HOURS PRN, shortness of breath, Starting on Sat02/19/23 at 2315 amLODIPine (NORVASC) tablet 10 mg 10 mg (0.243 mg/kg), Oral, 2 TIMES DAILY, First dose on Sat02/20/23 at 1250 $Given 02/21/2023 9:09 AM [facility] 10 mg $Given 02/20/2023 10:03 PM [facility] 10 mg $Given 02/20/2023 1:27 PM [facility] 10 mg bisacodyl (DULCOLAX) suppository 10 mg 10 mg (0.243 mg/kg), Rectal, DAILY PRN, constipation, Starting on Sat02/19/23 at 2310, IF more than 1 constipation PRN medication is ordered, administer step-flanagan as indicated, moving to the next step ONLY if prior step ineffective. Step 1: senna-docusate (SENOKOT-S; PERICOLACE) OR bisacodyl (DULCOLAX) EC tablet Step 2: polyethylene glycol (MIRALAX/GLYCOLAX) Step 3: bisacodyl (DULCOLAX) suppository Step 4: enema Hold for loose stools. $Given 02/20/2023 11:43 AM [facility] 10 mg cloNIDine (CATAPRES) tablet 0.1 mg 0.1 mg (0.36146 mg/kg), Oral, EVERY 8 HOURS PRN, SBP > 180, Starting on Sat02/20/23 at 0238 $Given 02/20/2023 11:43 AM [facility] 0.1 mg $Given 02/20/2023 3:18 AM [facility] 0.1 mg cloNIDine (CATAPRES) tablet 0.2 mg 0.2 mg (0.80590 mg/kg), Oral, EVERY MORNING, First dose on Sat02/21/23 at 0800 $Given 02/21/2023 9:09 AM [facility] 0.2 mg cloNIDine (CATAPRES) tablet 0.3 mg 0.3 mg (0.0073 mg/kg), Oral, EVERY EVENING, First dose on Sat02/20/23 at 2000 $Given 02/20/2023 10:02 PM [facility] 0.3 mg dextrose 5% and 0.45% NaCl infusion at 50 mL/hr, Intravenous, CONTINUOUS, Starting on Sat02/20/23 at 1425, Until Sat02/21/23 at 1540 $New Bag 02/21/2023 10:05 AM [facility] 50 mL/hr Rate/Dose Verify 02/20/2023 10:25 PM [facility] 50 mL/ hr Rate/Dose Verify 02/20/2023 9:04 PM [facility] 50 mL/h r dextrose 50 % injection 25-50 mL 25-50 mL, Intravenous, EVERY 15 MIN PRN, low blood sugar, Administer over 1-5 Minutes, Starting on Sat02/19/23 at 2310, Use if have IV access, BG less than 70 mg/dL and meet dose criteria below: Dose if conscious and alert (or disorientated) and NPO = 25 mL Dose if unconscious / not alert = 50 mL Give first dose for initial blood glucose less than 70 mg/dL. If blood glucose at 15 minute recheck is less than or equal to 80 mg/dL continue to administer carbohydrate treatment every 15 minutes, as needed, based on blood glucose and assessment parameters until blood glucose level is above 80 mg/dL x 2 consecutive 15 minute checks. Vesicant. $Given 02/20/2023 2:15 AM [facility] 25 mLs erythromycin (ROMYCIN) ophthalmic ointment Left Eye, 4 TIMES DAILY, First dose on Sat02/21/23 at 0830 $Given 02/21/2023 3:56 PM [facility] 1 g $Given 02/21/2023 12:10 PM [facility] 1 g furosemide (LASIX) tablet 40 mg 40 mg (0.973 mg/kg), Oral, DAILY, First dose on Sat02/20/23 at 1250 $Given 02/21/2023 9:09 AM [facility] 40 mg $Given 02/20/2023 1:27 PM [facility] 40 mg glucagon injection 1 mg 1 mg (0.0243 mg/kg), Subcutaneous, EVERY 15 MIN PRN, low blood sugar, May repeat x 1 only, Starting on Sat02/19/23 at 2310, May give SQ or IM. ONLY use glucagon IF patient has NO IV access AND is UNABLE to swallow AND blood glucose is LESS than or EQUAL to 50 mg/dL. glucose gel 15-30 g 15-30 g (0.365-0.73 g/kg), Oral, EVERY 15 MIN PRN, low blood sugar, Starting on Sat02/19/23 at 2310, Give first dose for initial blood glucose less than 70 mg/dL per the dosing instructions below. If blood glucose at 15 minute rechecks is still less than or equal to 80 mg/dL, continue to administer doses per blood glucose parameters every 15 minutes, as needed, until blood glucose level is at or above 80 mg/dL x 2 consecutive 15 minute checks. Dosing Instructions: ~If patient is conscious and able to swallow and NO enteral tube For initial BG 51-69mg/dL OR 15 minute recheck BG 51- 80 mg/dL - give 15 g For BG less than or equal to 50 mg/dL - give 30 g ~ If Enteral tube For initial BG 51-69mg/dL OR 15 minute recheck BG 51- 80 mg/dL - give apple juice 120 mL (4 oz or 15 g of CHO) via enteral tube For BG less than or equal to 50 mg/dL - Give apple juice 240 mL (8 oz or 30 g of CHO) via enteral tube ~Oral gel is preferable for conscious and able to swallow patient. ~IF gel unavailable or patient refuses may provide apple juice per Enteral tube dosing instructions. Document juice on I and O flowsheet. heparin (porcine) injection 500 Units (12.2 Units/kg), Hemodialysis Machine OR IV Push, ONCE IN DIALYSIS/CRRT, On Sat02/20/23 at 1540, For 1 dose, LOADING DOSE Administer loading dose prior to heparin infusion. PRE DIALYSIS RUN Dialysis, Dialysis $Given 02/20/2023 5:13 PM [facility] 500 Units heparin 10,000 units/10 mL infusion (DIALYSIS USE) 500 Units/hr (0.5 mL/hr), Hemodialysis Machine, CONTINUOUS, Starting on Sat02/20/23 at 1540, DURING DIALYSIS TREATMENT, Dialysis $New Bag 02/20/2023 7:34 PM [facility] 500 Units/hr 0.5 mL/hr hydrALAZINE (APRESOLINE) injection 10 mg 10 mg (0.243 mg/kg), Intravenous, EVERY 4 HOURS PRN, high blood pressure, give for SBP > 180, Starting on Sat02/19/23 at 2310 $Given 02/20/2023 8:38 AM [facility] 10 mg $Given 02/20/2023 4:31 AM [facility] 10 mg $Given 02/20/2023 12:47 AM [facility] 10 mg HYDROmorphone (DILAUDID) injection 0.2 mg 0.2 mg (0.47877 mg/kg), Intravenous, EVERY 2 HOURS PRN, moderate pain, IF patient cannot take oral opioid OR IF pain not managed with non-pharmacological, non-opioid, or oral opioid interventions if ordered, Starting on Sat02/19/23 at 2310, May use concomitant with non-opioid analgesics. $Given 02/21/2023 4:25 AM [facility] 0.2 mg HYDROmorphone (DILAUDID) injection 0.4 mg 0.4 mg (0.85743 mg/kg), Intravenous, EVERY 2 HOURS PRN, severe pain, IF patient cannot take oral opioid OR IF pain not managed with non-pharmacological, non-opioid, or oral opioid interventions if ordered, Starting on Sat02/19/23 at 2310, May use concomitant with non-opioid analgesics. $Given 02/21/2023 1:11 AM [facility] 0.4 mg $Given 02/20/2023 10:20 PM [facility] 0.4 mg $Given 02/20/2023 5:38 PM [facility] 0.4 mg insulin aspart (NovoLOG) injection (RAPID ACTING) 1-4 Units (0.0243-0.0973 Units/kg), Subcutaneous, EVERY 4 HOURS, First dose on Sat02/20/23 at 0000, Correction Scale - LOW INSULIN RESISTANCE DOSING Do Not give Correction Insulin if BG less than 140. For BG 140 - 239 give 1 unit. For BG 240 - 339 give 2 units. For BG 340 - 439 give 3 units For BG greater than or equal to 440 give 4 units Check blood glucose Q4H and administer based on blood glucose. Notify provider if glucose greater than or equal to 350 mg/dL after administration of correction dose. $Given 02/21/2023 3:55 PM [facility] 2 Units $Given 02/21/2023 12:11 PM [facility] 2 Units $Given 02/21/2023 9:09 AM [facility] 1 Units labetalol (NORMODYNE) tablet 600 mg 600 mg (14.6 mg/kg), Oral, 2 TIMES DAILY, First dose on Sat02/20/23 at 1250 $Given 02/21/2023 9:08 AM [facility] 600 mg $Given 02/20/2023 10:04 PM [facility] 600 mg $Given 02/20/2023 1:42 PM [facility] 600 mg lidocaine 1 % 0.5 mL 0.5 mL, Intradermal, ONCE PRN, WITHIN 24 HOURS For local anesthesia at fistula/graft site, Starting on Sat02/20/23 at 1535, For 1 dose, For local anesthesia at VENOUS fistula/graft site. Give once, if needed, at the dialysis treatment., Dialysis $Given 02/20/2023 5:00 PM [facility] 0.5 mLs lidocaine 1 % 0.5 mL 0.5 mL, Intradermal, ONCE PRN, For local anesthesia at ARTERIAL fistula/graft site., Starting on Sat02/20/23 at 1535, For 1 dose, Give once, if needed, at the dialysis treatment., Dialysis $Given 02/20/2023 5:00 PM [facility] 0.5 mLs multivitamin RENAL (TRIPHROCAPS) capsule 1 capsule 1 capsule, Oral, DAILY, First dose (after last reorder) on Gemma 02/21/23 at 0900 $Given 02/21/2023 9:09 AM [facility] 1 capsule naloxone (NARCAN) injection 0.2 mg 0.2 mg (0.34287 mg/kg), Intravenous, EVERY 2 MIN PRN, opioid reversal, Starting on Sat02/20/23 at 1332, Administer intravenous route when available and notify provider when administered. For unintended sedation or respiratory depression if all of the below criteria are met: ~ respiratory rate LESS than or EQUAL to 8. ~SaO2 less than 92% and or/end-tidal CO2 is greater than 50. ~ the patient is receiving an opioid, has unintended sedations assessed as RASS (-3), and is currently not on mechanical ventilation. RASS scale moderate (-3) is movement or eye opening to voice but no eye contact. Patient Monitoring Once the patient has demonstrated a response to the naloxone, continue to monitor respiratory rate, depth, oxygen saturation and end-tidal CO2 (if available) every 15 minutes x 2, then every 30 minutes x 2, then every 1 hour x 1 after each naloxone dose. Consider transfer to ICU if patient respiratory parameters have not improved after 4 naloxone doses. naloxone (NARCAN) injection 0.2 mg 0.2 mg (0.34873 mg/kg), Intramuscular, EVERY 2 MIN PRN, opioid reversal, Starting on Sat02/20/23 at 1332, Administer intramuscular if an intravenous route is not available and notify provider when administered. For unintended sedation or respiratory depression if all of the below criteria are met: ~ respiratory rate LESS than or EQUAL to 8. ~SaO2 less than 92% and or/end-tidal CO2 is greater than 50. ~ the patient is receiving an opioid, has unintended sedations assessed as RASS (-3), and is currently not on mechanical ventilation. RASS scale moderate (-3) is movement or eye opening to voice but no eye contact. Patient Monitoring Once the patient has demonstrated a response to the naloxone, continue to monitor respiratory rate, depth, oxygen saturation and end-tidal CO2 (if available) every 15 minutes x 2, then every 30 minutes x 2, then every 1 hour x 1 after each naloxone dose. Consider transfer to ICU if patient respiratory parameters have not improved after 4 naloxone doses. naloxone (NARCAN) injection 0.4 mg 0.4 mg (0.94248 mg/kg), Intravenous, EVERY 2 MIN PRN, opioid reversal, Starting on Sat02/20/23 at 1332, Administer intravenous route when available and notify provider when administered. For unintended sedation or respiratory depression if all of the below criteria are met: ~ respiratory rate LESS than or EQUAL to 8. ~ SaO2 less than 92% and or/end-tidal CO2 is greater than 50. ~ the patient is receiving an opioid, has unintended sedation assessed as RASS (-4) or (-5) and patient is currently not on mechanical ventilation. RASS scale (-4) is deep sedation with no response to voice but movement or eye opening to physical stimulation. RASS scale (-5) is unarousable. Patient Monitoring Once the patient has demonstrated a response to the naloxone, continue to monitor respiratory rate, depth, oxygen saturation and end-tidal CO2 (if available) every 15 minutes x 2, then every 30 minutes x 2, then every 1 hour x 1 after each naloxone dose. Consider transfer to ICU if patient respiratory parameters have not improved after 4 naloxone doses. naloxone (NARCAN) injection 0.4 mg 0.4 mg (0.54472 mg/kg), Intramuscular, EVERY 2 MIN PRN, opioid reversal, Starting on Sat02/20/23 at 1332, Administer intramuscular if an intravenous route is not available and notify provider when administered. For unintended sedation or respiratory depression if all of the below criteria are met: ~ respiratory rate LESS than or EQUAL to 8. ~ SaO2 less than 92% and or/end-tidal CO2 is greater than 50. ~ the patient is receiving an opioid, has unintended sedation assessed as RASS (-4) or (-5) and patient is currently not on mechanical ventilation. RASS scale (-4) is deep sedation with no response to voice but movement or eye opening to physical stimulation. RASS scale (-5) is unarousable. Patient Monitoring Once the patient has demonstrated a response to the naloxone, continue to monitor respiratory rate, depth, oxygen saturation and end-tidal CO2 (if available) every 15 minutes x 2, then every 30 minutes x 2, then every 1 hour x 1 after each naloxone dose. Consider transfer to ICU if patient respiratory parameters have not improved after 4 naloxone doses. nicotine (NICODERM CQ) 14 MG/24HR 24 hr patch 1 patch 1 patch, Transdermal, DAILY, Administer over 24 Hours, First dose on Sat02/19/23 at 2320, Reminder: Remove previous patch before applying new patch. $Patch/Med Applied 02/21/2023 9:09 AM [facility] 1 patch Right Shoulder $Patch/Med Applied 02/20/2023 7:58 AM [facility] 1 patch Left Shoulder $Patch/Med Applied 02/19/2023 11:51 PM [facility] 1 patch Right Arm ondansetron (ZOFRAN ODT) ODT tab 4 mg 4 mg (0.0973 mg/kg), Oral, EVERY 6 HOURS PRN, nausea, vomiting, Starting on Sat02/19/23 at 2310, This is Step 1 of nausea and vomiting management. If nausea not resolved in 15 minutes, go to Step 2 prochlorperazine (COMPAZINE). With dry hands, peel back foil backing and gently remove tablet. Do not push oral disintegrating tablet through foil backing. Administer immediately on tongue and oral disintegrating tablet dissolves in seconds, then swallow with saliva. Liquid not required. ondansetron (ZOFRAN) injection 4 mg 4 mg (0.0973 mg/kg), Intravenous, EVERY 6 HOURS PRN, nausea, vomiting, Administer over 2-5 Minutes, Starting on Sat02/19/23 at 2310, Give IF patient unable to tolerate oral medication. This is Step 1 of nausea and vomiting management. If nausea not resolved in 15 minutes, go to Step 2 prochlorperazine (COMPAZINE). Irritant. pantoprazole (PROTONIX) EC tablet 40 mg 40 mg (0.98 mg/kg), Oral, 2 TIMES DAILY BEFORE MEALS, First dose on Sat02/21/23 at 0830, DO NOT CRUSH. $Given 02/21/2023 4:31 PM [facility] 40 mg $Given 02/21/2023 9:08 AM [facility] 40 mg pantoprazole (PROTONIX) IV push injection 40 mg 40 mg (0.973 mg/kg), Intravenous, 2 TIMES DAILY, First dose on Sat02/19/23 at 2320, Irritant. $Given 02/20/2023 9:00 PM [facility] 40 mg $Given 02/20/2023 8:38 AM [facility] 40 mg $Given 02/19/2023 11:51 PM [facility] 40 mg polyethylene glycol (MIRALAX) Packet 17 g 17 g (0.417 g/kg), Oral, DAILY PRN, constipation, Starting on Sat02/21/23 at 0807, If patient has multiple oral constipation medications ordered PRN, offer in the following order per policy.?? Move to the next available step if the earlier step is ineffective. Step 1 - senna-s; Step 2 - bisacodyl; Step 3 - milk of magnesia; Step 4 - polyethylene glycol; Step 5 - magnesium citrate 1 Packet = 17 grams. Mix each gram with at least 1/2 ounce (15 mL) of water - 8 ounces for 17 g dose, 4 ounces for 8.5 g dose, 2 ounces for 4 g dose. Follow with the same volume of water. Hold for loose stools unless being administered as part of a bowel prep regimen or bowel clean out. senna-docusate (SENOKOT-S/PERICOLACE) 8.6-50 MG per tablet 1 tablet 1 tablet, Oral, 2 TIMES DAILY, First dose on Sat02/21/23 at 0830, Hold for loose stools. $Given 02/21/2023 9:09 AM [facility] 1 tablet senna-docusate (SENOKOT-S/PERICOLACE) 8.6-50 MG per tablet 1 tablet 1 tablet, Oral, 2 TIMES DAILY PRN, constipation, Starting on Sat02/21/23 at 1030, If patient has multiple oral constipation medications ordered PRN, offer in the following order per policy.?? Move to the next available step if the earlier step is ineffective. Step 1 - senna-s; Step 2 - bisacodyl; Step 3 - milk of magnesia; Step 4 - polyethylene glycol; Step 5 - magnesium citrate Hold for loose stools. sennosides (SENOKOT) tablet 8.6 mg 8.6 mg (0.209 mg/kg), Oral, 2 TIMES DAILY PRN, constipation, Starting on Sat02/20/23 at 1246, Hold for loose stools. $Given 02/20/2023 1:27 PM [facility] 8.6 mg sodium chloride 0.9 % infusion at 50 mL/hr, Intravenous, CONTINUOUS, Starting on Sat02/19/23 at 2315, Until Sat02/20/23 at 1422 $New Bag 02/20/2023 12:00 AM [facility] 50 mL/hr sodium chloride 0.9% BOLUS 250 mL Intravenous, 250 mL, ONCE IN DIALYSIS/CRRT, On Sat02/20/23 at 1540, For 1 dose, For patient prime during dialysis, Dialysis $New Bag 02/20/2023 7:36 PM [facility] 250 mLs sodium chloride 0.9% BOLUS 300 mL Hemodialysis Machine, 300 mL, ONCE, On Sat02/20/23 at 1540, For 1 dose, For Dialyzer Prime. (In Dialyzer), Dialysis $New Bag 02/20/2023 5:34 PM [facility] 300 mLs umeclidinium (INCRUSE ELLIPTA) 62.5 MCG/ACT inhaler 1 puff 1 puff, Inhalation, DAILY, First dose on Sat02/21/23 at 0830, Check the dose counter on the inhaler to ensure there are doses remaining before administering. $Given 02/21/2023 10:00 AM [facility] 1 puff documented in this encounter Active and Recently Administered Medications Times are shown in [facility]. Scheduled Medication Order 02/19/2023 02/20/2023 02/21/2023 - MEDICATION INSTRUCTIONS for Dialysis Patients - SEE ADMIN INSTRUCTIONS, Starting on Sat02/21/23 at 1437, Until Sat02/21/23 at 1912, Do not give any medication that may affect blood pressure or volume before dialysis. The following medications may be removed by dialysis and should be given after dialysis: aspirin, renal multivitamin amLODIPine (NORVASC) tablet 10 mg 10 mg (0.243 mg/kg), Oral, 2 TIMES DAILY, First dose on Sat02/20/23 at 1250 1327 ($Given - Provider: Anita Urbina RN)2203 ($Given - Provider: Teresa Hathaway RN) 0909 ($Given - Provider: Tanner Lieberman RN) aspirin EC tablet 81 mg 81 mg (1.99 mg/kg), Oral, EVERY EVENING, First dose on Sat02/21/23 at 2000, DO NOT CRUSH. cloNIDine (CATAPRES) tablet 0.2 mg 0.2 mg (0.87381 mg/kg), Oral, EVERY MORNING, First dose on Sat02/21/23 at 0800 0909 ($Given - Provider: Tanner Lieberman RN) cloNIDine (CATAPRES) tablet 0.3 mg 0.3 mg (0.0073 mg/kg), Oral, EVERY EVENING, First dose on Sat02/20/23 at 2000 2202 ($Given - Provider: Teresa Hathaway RN) erythromycin (ROMYCIN) ophthalmic ointment Left Eye, 4 TIMES DAILY, First dose on Sat02/21/23 at 0830 0953 (Not Given - Provider: Tanner Lieberman RN - Reason: Medication not available)1210 ($Given - Provider: Tanner Lieberman RN)1556 ($Given - Provider: Tanner Lieberman RN) furosemide (LASIX) tablet 40 mg 40 mg (0.973 mg/kg), Oral, DAILY, First dose on Sat02/20/23 at 1250 1327 ($Given - Provider: Anita Urbina RN) 0909 ($Given - Provider: Tanner Lieberman RN) heparin (porcine) injection (COMPLETED) 500 Units (12.2 Units/kg), Hemodialysis Machine OR IV Push, ONCE IN DIALYSIS/CRRT, On Sat02/20/23 at 1540, For 1 dose, LOADING DOSE Administer loading dose prior to heparin infusion. PRE DIALYSIS RUN Dialysis, Dialysis 1713 ($Given - Provider: Aranza Self RN - Comment: pretx bolus) insulin aspart (NovoLOG) injection (RAPID ACTING) 1-4 Units (0.0243-0.0973 Units/kg), Subcutaneous, EVERY 4 HOURS, First dose on Sat02/20/23 at 0000, Correction Scale - LOW INSULIN RESISTANCE DOSING Do Not give Correction Insulin if BG less than 140. For BG 140 - 239 give 1 unit. For BG 240 - 339 give 2 units. For BG 340 - 439 give 3 units For BG greater than or equal to 440 give 4 units Check blood glucose Q4H and administer based on blood glucose. Notify provider if glucose greater than or equal to 350 mg/dL after administration of correction dose. 0000 (Not Given - Provider: Petra Branch RN - Reason: Order parameters not met - Comment: [phone] ($Given - Provider: Petra Branch RN - Comment: [phone] (Not Given - Provider: Anita Urbina RN - Reason: Order parameters not met - Comment: [phone] ($Given - Provider: Anita Urbina RN - Comment: bs [phone] ($Given - Provider: Anita Urbina RN - Comment: bs [phone] (Not Given - Provider: Teresa Hathaway RN - Reason: Order parameters not met - Comment: BG 90) 0114 (Not Given - Provider: Ashwin Flood RN - Reason: Contraindicated)0431 (Not Given - Provider: Ashwin Flood RN - Reason: Contraindicated)0909 ($Given - Provider: Tanner Lieberman RN)1211 ($Given - Provider: Tanner Lieberman, SUSANA)1555 ($Given - Provider: Tanner Lieberman RN - Comment: BG 257) labetalol (NORMODYNE) tablet 600 mg 600 mg (14.6 mg/kg), Oral, 2 TIMES DAILY, First dose on Sat02/20/23 at 1250 1342 ($Given - Provider: Anita Urbina RN)2204 ($Given - Provider: Teresa Hathaway RN) 0908 ($Given - Provider: Tanner Lieberman, RN) multivitamin RENAL (TRIPHROCAPS) capsule 1 capsule 1 capsule, Oral, DAILY, First dose (after last reorder) on Sat02/21/23 at 0900 0909 ($Given - Provider: Tanner Lieberman, RN) nicotine (NICODERM CQ) 14 MG/24HR 24 hr patch 1 patch 1 patch, Transdermal, DAILY, Administer over 24 Hours, First dose on Sat02/19/23 at 2320, Reminder: Remove previous patch before applying new patch. 2351 ($Patch/Med Applied - Provider: Petra Branch RN) 0757 (Patch/Med Removed - Provider: Anita Urbina RN)0758 ($Patch/Med Applied - Provider: Anita Urbina, SUSANA) 0907 (Patch/Med Removed - Provider: Tanner Lieberman, SUSANA)0909 ($Patch/Med Applied - Provider: Tanner Lieberman RN)1711 (Due: Patch/Med Removed - Provider: Orders Generic Provider - Comment: Time automatically adjusted from order being discontinued) nicotine Patch in Place First dose on Sat02/19/23 at 2315, Chart every shift, confirming that patch is still in place on patient (no barcode scan needed). See patch order for dose information. 0000 (Patch in Place - Provider: Petra Branch RN)0759 (Patch in Place - Provider: Anita Urbina, SUSANA)1425 (Patch in Place - Provider: Anita Urbina RN) 0730 (Patch in Place - Provider: Tanner Lieberman RN)0945 (Patch in Place - Provider: Tanner Lieberman, SUSANA)1557 (Patch in Place - Provider: Tanner Lieberman, SUSANA) pantoprazole (PROTONIX) EC tablet 40 mg 40 mg (0.98 mg/kg), Oral, 2 TIMES DAILY BEFORE MEALS, First dose on Sat02/21/23 at 0830, DO NOT CRUSH. 0908 ($Given - Provider: Tanner Lieberman RN)1631 ($Given - Provider: Tanner Lieberman RN) pantoprazole (PROTONIX) IV push injection 40 mg (CANCELED) 40 mg (0.973 mg/kg), Intravenous, 2 TIMES DAILY, First dose on Sat02/19/23 at 2320, Irritant. 2351 ($Given - Provider: Petra Branch, RN) 0838 ($Given - Provider: Anita Urbina, SUSANA)2100 ($Given - Provider: Teresa Hathaway, RN) 0800 (Canceled Entry - Provider: Tony Alcantar, [facility] - Comment: Automatically canceled at discontinue of medication order) senna-docusate (SENOKOT-S/PERICOLACE) 8.6-50 MG per tablet 1 tablet (CANCELED) 1 tablet, Oral, 2 TIMES DAILY, First dose on Sat02/21/23 at 0830, Hold for loose stools. 0909 ($Given - Provider: Tanner Lieberman RN) sodium chloride 0.9% BOLUS 250 mL (COMPLETED) Intravenous, 250 mL, ONCE IN DIALYSIS/CRRT, On Sat02/20/23 at 1540, For 1 dose, For patient prime during dialysis, Dialysis 1936 ($New Bag - Provider: Aranza Self RN - Comment: posttx blood rinseback) sodium chloride 0.9% BOLUS 300 mL (COMPLETED) Hemodialysis Machine, 300 mL, ONCE, On Sat02/20/23 at 1540, For 1 dose, For Dialyzer Prime. (In Dialyzer), Dialysis 1734 ($New Bag - Provider: Aranza Self RN - Comment: pretx hemoline prime) umeclidinium (INCRUSE ELLIPTA) 62.5 MCG/ACT inhaler 1 puff 1 puff, Inhalation, DAILY, First dose on Sat02/21/23 at 0830, Check the dose counter on the inhaler to ensure there are doses remaining before administering. 1000 ($Given - Provider: Tanner Lieberman RN) Continuous Medication Order 02/19/2023 02/20/2023 02/21/2023 dextrose 5% and 0.45% NaCl infusion (CANCELED) at 50 mL/hr, Intravenous, CONTINUOUS, Starting on Sat02/20/23 at 1425, Until Sat02/21/23 at 1540 1434 ($New Bag - Provider: Anita Urbina RN)1500 (Rate/Dose Verify - Provider: Anita Urbina RN)1743 (Rate/Dose Verify - Provider: Emily Mak RN)2104 (Rate/Dose Verify - Provider: Teresa Hathaway RN)2225 (Rate/Dose Verify - Provider: Teresa Hathaway RN) 1005 ($New Bag - Provider: Tanner Lieberman RN) heparin 10,000 units/10 mL infusion (DIALYSIS USE) (CANCELED) 500 Units/hr (0.5 mL/hr), Hemodialysis Machine, CONTINUOUS, Starting on Sat02/20/23 at 1540, DURING DIALYSIS TREATMENT, Dialysis 1934 ($New Bag - Provider: Aranza Self RN - Comment: infused until last hr on tx) sodium chloride 0.9 % infusion (CANCELED) at 50 mL/hr, Intravenous, CONTINUOUS, Starting on Sat02/19/23 at 2315, Until Sat02/20/23 at 1422 0000 ($New Bag - Provider: Petra Branch RN)1435 (Stopped - Provider: Anita Urbina RN) PRN Medication Order 02/19/2023 02/20/2023 02/21/2023 albuterol (PROVENTIL) neb solution 2.5 mg 2.5 mg, Nebulization, EVERY 2 HOURS PRN, shortness of breath, Starting on Sat02/19/23 at 2315 bisacodyl (DULCOLAX) suppository 10 mg 10 mg (0.243 mg/kg), Rectal, DAILY PRN, constipation, Starting on Sat02/19/23 at 2310, IF more than 1 constipation PRN medication is ordered, administer step-flanagan as indicated, moving to the next step ONLY if prior step ineffective. Step 1: senna-docusate (SENOKOT-S; PERICOLACE) OR bisacodyl (DULCOLAX) EC tablet Step 2: polyethylene glycol (MIRALAX/GLYCOLAX) Step 3: bisacodyl (DULCOLAX) suppository Step 4: enema Hold for loose stools. 1143 ($Given - Provider: Anita Urbina RN) cloNIDine (CATAPRES) tablet 0.1 mg 0.1 mg (0.97945 mg/kg), Oral, EVERY 8 HOURS PRN, SBP > 180, Starting on Sat02/20/23 at 0238 0318 ($Given - Provider: Petra Branch RN)1143 ($Given - Provider: Anita Urbina RN) dextrose 50 % injection 25-50 mL(Linked Group 1) 25-50 mL, Intravenous, EVERY 15 MIN PRN, low blood sugar, Administer over 1-5 Minutes, Starting on Sat02/19/23 at 2310, Use if have IV access, BG less than 70 mg/dL and meet dose criteria below: Dose if conscious and alert (or disorientated) and NPO = 25 mL Dose if unconscious / not alert = 50 mL Give first dose for initial blood glucose less than 70 mg/dL. If blood glucose at 15 minute recheck is less than or equal to 80 mg/dL continue to administer carbohydrate treatment every 15 minutes, as needed, based on blood glucose and assessment parameters until blood glucose level is above 80 mg/dL x 2 consecutive 15 minute checks. Vesicant. 0215 ($Given - Provider: Petra Branch RN) glucagon injection 1 mg(Linked Group 1) 1 mg (0.0243 mg/kg), Subcutaneous, EVERY 15 MIN PRN, low blood sugar, May repeat x 1 only, Starting on Sat02/19/23 at 2310, May give SQ or IM. ONLY use glucagon IF patient has NO IV access AND is UNABLE to swallow AND blood glucose is LESS than or EQUAL to 50 mg/dL. 0215 (See Alternative - Provider: Petra Branch RN) glucose gel 15-30 g(Linked Group 1) 15-30 g (0.365-0.73 g/kg), Oral, EVERY 15 MIN PRN, low blood sugar, Starting on Sat02/19/23 at 2310, Give first dose for initial blood glucose less than 70 mg/dL per the dosing instructions below. If blood glucose at 15 minute rechecks is still less than or equal to 80 mg/dL, continue to administer doses per blood glucose parameters every 15 minutes, as needed, until blood glucose level is at or above 80 mg/dL x 2 consecutive 15 minute checks. Dosing Instructions: ~If patient is conscious and able to swallow and NO enteral tube For initial BG 51-69mg/dL OR 15 minute recheck BG 51- 80 mg/dL - give 15 g For BG less than or equal to 50 mg/dL - give 30 g ~ If Enteral tube For initial BG 51-69mg/dL OR 15 minute recheck BG 51- 80 mg/dL - give apple juice 120 mL (4 oz or 15 g of CHO) via enteral tube For BG less than or equal to 50 mg/dL - Give apple juice 240 mL (8 oz or 30 g of CHO) via enteral tube ~Oral gel is preferable for conscious and able to swallow patient. ~IF gel unavailable or patient refuses may provide apple juice per Enteral tube dosing instructions. Document juice on I and O flowsheet. 0215 (See Alternative - Provider: Petra Branch RN) hydrALAZINE (APRESOLINE) injection 10 mg 10 mg (0.243 mg/kg), Intravenous, EVERY 4 HOURS PRN, high blood pressure, give for SBP > 180, Starting on Sat02/19/23 at 2310 0047 ($Given - Provider: Petra Branch RN - Comment: PREVIOUS 181 70)0431 ($Given - Provider: Petra Branch RN)0838 ($Given - Provider: Anita Urbina, SUSANA)1333 (Return to Cabinet - Provider: Anita Urbina, SUSANA) HYDROmorphone (DILAUDID) injection 0.2 mg 0.2 mg (0.15864 mg/kg), Intravenous, EVERY 2 HOURS PRN, moderate pain, IF patient cannot take oral opioid OR IF pain not managed with non-pharmacological, non-opioid, or oral opioid interventions if ordered, Starting on Sat02/19/23 at 2310, May use concomitant with non-opioid analgesics. 0425 ($Given - Provider: Ashwin Flood RN) HYDROmorphone (DILAUDID) injection 0.4 mg 0.4 mg (0.67014 mg/kg), Intravenous, EVERY 2 HOURS PRN, severe pain, IF patient cannot take oral opioid OR IF pain not managed with non-pharmacological, non-opioid, or oral opioid interventions if ordered, Starting on Sat02/19/23 at 2310, May use concomitant with non-opioid analgesics. 2351 ($Given - Provider: Petra Branch RN) 0432 ($Given - Provider: Petra Branch RN)0839 ($Given - Provider: Anita Urbina, RN)1327 ($Given - Provider: Anita Urbina, RN)1738 ($Given - Provider: Emily Mak, RN)2220 ($Given - Provider: Teresa Hathaway RN) 0111 ($Given - Provider: Ashwin Flood RN) lidocaine 1 % 0.5 mL (COMPLETED) 0.5 mL, Intradermal, ONCE PRN, WITHIN 24 HOURS For local anesthesia at fistula/graft site, Starting on Sat02/20/23 at 1535, For 1 dose, For local anesthesia at VENOUS fistula/graft site. Give once, if needed, at the dialysis treatment., Dialysis 1700 ($Given - Provider: Aranza Self RN - Comment: pretx numbing arterial) lidocaine 1 % 0.5 mL (COMPLETED) 0.5 mL, Intradermal, ONCE PRN, For local anesthesia at ARTERIAL fistula/graft site., Starting on Sat02/20/23 at 1535, For 1 dose, Give once, if needed, at the dialysis treatment., Dialysis 1700 ($Given - Provider: Aranza Self RN - Comment: pretx numbing venous) naloxone (NARCAN) injection 0.2 mg(Linked Group 2) 0.2 mg (0.36788 mg/kg), Intravenous, EVERY 2 MIN PRN, opioid reversal, Starting on Sat02/20/23 at 1332, Administer intravenous route when available and notify provider when administered. For unintended sedation or respiratory depression if all of the below criteria are met: ~ respiratory rate LESS than or EQUAL to 8. ~SaO2 less than 92% and or/end-tidal CO2 is greater than 50. ~ the patient is receiving an opioid, has unintended sedations assessed as RASS (-3), and is currently not on mechanical ventilation. RASS scale moderate (-3) is movement or eye opening to voice but no eye contact. Patient Monitoring Once the patient has demonstrated a response to the naloxone, continue to monitor respiratory rate, depth, oxygen saturation and end-tidal CO2 (if available) every 15 minutes x 2, then every 30 minutes x 2, then every 1 hour x 1 after each naloxone dose. Consider transfer to ICU if patient respiratory parameters have not improved after 4 naloxone doses. naloxone (NARCAN) injection 0.2 mg(Linked Group 2) 0.2 mg (0.36650 mg/kg), Intramuscular, EVERY 2 MIN PRN, opioid reversal, Starting on Sat02/20/23 at 1332, Administer intramuscular if an intravenous route is not available and notify provider when administered. For unintended sedation or respiratory depression if all of the below criteria are met: ~ respiratory rate LESS than or EQUAL to 8. ~SaO2 less than 92% and or/end-tidal CO2 is greater than 50. ~ the patient is receiving an opioid, has unintended sedations assessed as RASS (-3), and is currently not on mechanical ventilation. RASS scale moderate (-3) is movement or eye opening to voice but no eye contact. Patient Monitoring Once the patient has demonstrated a response to the naloxone, continue to monitor respiratory rate, depth, oxygen saturation and end-tidal CO2 (if available) every 15 minutes x 2, then every 30 minutes x 2, then every 1 hour x 1 after each naloxone dose. Consider transfer to ICU if patient respiratory parameters have not improved after 4 naloxone doses. naloxone (NARCAN) injection 0.4 mg(Linked Group 2) 0.4 mg (0.88631 mg/kg), Intravenous, EVERY 2 MIN PRN, opioid reversal, Starting on Sat02/20/23 at 1332, Administer intravenous route when available and notify provider when administered. For unintended sedation or respiratory depression if all of the below criteria are met: ~ respiratory rate LESS than or EQUAL to 8. ~ SaO2 less than 92% and or/end-tidal CO2 is greater than 50. ~ the patient is receiving an opioid, has unintended sedation assessed as RASS (-4) or (-5) and patient is currently not on mechanical ventilation. RASS scale (-4) is deep sedation with no response to voice but movement or eye opening to physical stimulation. RASS scale (-5) is unarousable. Patient Monitoring Once the patient has demonstrated a response to the naloxone, continue to monitor respiratory rate, depth, oxygen saturation and end-tidal CO2 (if available) every 15 minutes x 2, then every 30 minutes x 2, then every 1 hour x 1 after each naloxone dose. Consider transfer to ICU if patient respiratory parameters have not improved after 4 naloxone doses. naloxone (NARCAN) injection 0.4 mg(Linked Group 2) 0.4 mg (0.14911 mg/kg), Intramuscular, EVERY 2 MIN PRN, opioid reversal, Starting on Sat02/20/23 at 1332, Administer intramuscular if an intravenous route is not available and notify provider when administered. For unintended sedation or respiratory depression if all of the below criteria are met: ~ respiratory rate LESS than or EQUAL to 8. ~ SaO2 less than 92% and or/end-tidal CO2 is greater than 50. ~ the patient is receiving an opioid, has unintended sedation assessed as RASS (-4) or (-5) and patient is currently not on mechanical ventilation. RASS scale (-4) is deep sedation with no response to voice but movement or eye opening to physical stimulation. RASS scale (-5) is unarousable. Patient Monitoring Once the patient has demonstrated a response to the naloxone, continue to monitor respiratory rate, depth, oxygen saturation and end-tidal CO2 (if available) every 15 minutes x 2, then every 30 minutes x 2, then every 1 hour x 1 after each naloxone dose. Consider transfer to ICU if patient respiratory parameters have not improved after 4 naloxone doses. nicotine (NICORETTE) gum 2 mg 2 mg (0.0487 mg/kg), Buccal, EVERY 1 HOUR PRN, other, nicotine withdrawal symptoms, Starting on Sat02/19/23 at 2310, Chew until tingling, then place between cheek and gum. Repeat. Do not swallow. Not to exceed 48 mg in a 24 hour time period. ondansetron (ZOFRAN ODT) ODT tab 4 mg(Linked Group 3) 4 mg (0.0973 mg/kg), Oral, EVERY 6 HOURS PRN, nausea, vomiting, Starting on Sat02/19/23 at 2310, This is Step 1 of nausea and vomiting management. If nausea not resolved in 15 minutes, go to Step 2 prochlorperazine (COMPAZINE). With dry hands, peel back foil backing and gently remove tablet. Do not push oral disintegrating tablet through foil backing. Administer immediately on tongue and oral disintegrating tablet dissolves in seconds, then swallow with saliva. Liquid not required. ondansetron (ZOFRAN) injection 4 mg(Linked Group 3) 4 mg (0.0973 mg/kg), Intravenous, EVERY 6 HOURS PRN, nausea, vomiting, Administer over 2-5 Minutes, Starting on Sat02/19/23 at 2310, Give IF patient unable to tolerate oral medication. This is Step 1 of nausea and vomiting management. If nausea not resolved in 15 minutes, go to Step 2 prochlorperazine (COMPAZINE). Irritant. polyethylene glycol (MIRALAX) Packet 17 g 17 g (0.417 g/kg), Oral, DAILY PRN, constipation, Starting on Sat02/21/23 at 0807, If patient has multiple oral constipation medications ordered PRN, offer in the following order per policy.?? Move to the next available step if the earlier step is ineffective. Step 1 - senna-s; Step 2 - bisacodyl; Step 3 - milk of magnesia; Step 4 - polyethylene glycol; Step 5 - magnesium citrate 1 Packet = 17 grams. Mix each gram with at least 1/2 ounce (15 mL) of water - 8 ounces for 17 g dose, 4 ounces for 8.5 g dose, 2 ounces for 4 g dose. Follow with the same volume of water. Hold for loose stools unless being administered as part of a bowel prep regimen or bowel clean out. senna-docusate (SENOKOT-S/PERICOLACE) 8.6-50 MG per tablet 1 tablet 1 tablet, Oral, 2 TIMES DAILY PRN, constipation, Starting on Sat02/21/23 at 1030, If patient has multiple oral constipation medications ordered PRN, offer in the following order per policy.?? Move to the next available step if the earlier step is ineffective. Step 1 - senna-s; Step 2 - bisacodyl; Step 3 - milk of magnesia; Step 4 - polyethylene glycol; Step 5 - magnesium citrate Hold for loose stools. sennosides (SENOKOT) tablet 8.6 mg (CANCELED) 8.6 mg (0.209 mg/kg), Oral, 2 TIMES DAILY PRN, constipation, Starting on Sat02/20/23 at 1246, Hold for loose stools. 1327 ($Given - Provider: Anita Urbina RN) Linked Groups Order Group 1: glucose gel 15-30 gJump to med 15-30 g (0.365-0.73 g/kg), Oral, EVERY 15 MIN PRN, low blood sugar, Starting on Sat02/19/23 at 2310, Give first dose for initial blood glucose less than 70 mg/dL per the dosing instructions below. If blood glucose at 15 minute rechecks is still less than or equal to 80 mg/dL, continue to administer doses per blood glucose parameters every 15 minutes, as needed, until blood glucose level is at or above 80 mg/dL x 2 consecutive 15 minute checks. Dosing Instructions: ~If patient is conscious and able to swallow and NO enteral tube For initial BG 51-69mg/dL OR 15 minute recheck BG 51- 80 mg/dL - give 15 g For BG less than or equal to 50 mg/dL - give 30 g ~ If Enteral tube For initial BG 51-69mg/dL OR 15 minute recheck BG 51- 80 mg/dL - give apple juice 120 mL (4 oz or 15 g of CHO) via enteral tube For BG less than or equal to 50 mg/dL - Give apple juice 240 mL (8 oz or 30 g of CHO) via enteral tube ~Oral gel is preferable for conscious and able to swallow patient. ~IF gel unavailable or patient refuses may provide apple juice per Enteral tube dosing instructions. Document juice on I and O flowsheet. Or dextrose 50 % injection 25-50 mLJump to med 25-50 mL, Intravenous, EVERY 15 MIN PRN, low blood sugar, Administer over 1-5 Minutes, Starting on Sat02/19/23 at 2310, Use if have IV access, BG less than 70 mg/dL and meet dose criteria below: Dose if conscious and alert (or disorientated) and NPO = 25 mL Dose if unconscious / not alert = 50 mL Give first dose for initial blood glucose less than 70 mg/dL. If blood glucose at 15 minute recheck is less than or equal to 80 mg/dL continue to administer carbohydrate treatment every 15 minutes, as needed, based on blood glucose and assessment parameters until blood glucose level is above 80 mg/dL x 2 consecutive 15 minute checks. Vesicant. Or glucagon injection 1 mgJump to med 1 mg (0.0243 mg/kg), Subcutaneous, EVERY 15 MIN PRN, low blood sugar, May repeat x 1 only, Starting on Sat02/19/23 at 2310, May give SQ or IM. ONLY use glucagon IF patient has NO IV access AND is UNABLE to swallow AND blood glucose is LESS than or EQUAL to 50 mg/dL. Group 2: naloxone (NARCAN) injection 0.2 mgJump to med 0.2 mg (0.88675 mg/kg), Intravenous, EVERY 2 MIN PRN, opioid reversal, Starting on Sat02/20/23 at 1332, Administer intravenous route when available and notify provider when administered. For unintended sedation or respiratory depression if all of the below criteria are met: ~ respiratory rate LESS than or EQUAL to 8. ~SaO2 less than 92% and or/end-tidal CO2 is greater than 50. ~ the patient is receiving an opioid, has unintended sedations assessed as RASS (-3), and is currently not on mechanical ventilation. RASS scale moderate (-3) is movement or eye opening to voice but no eye contact. Patient Monitoring Once the patient has demonstrated a response to the naloxone, continue to monitor respiratory rate, depth, oxygen saturation and end-tidal CO2 (if available) every 15 minutes x 2, then every 30 minutes x 2, then every 1 hour x 1 after each naloxone dose. Consider transfer to ICU if patient respiratory parameters have not improved after 4 naloxone doses. Or naloxone (NARCAN) injection 0.4 mgJump to med 0.4 mg (0.87103 mg/kg), Intravenous, EVERY 2 MIN PRN, opioid reversal, Starting on Sat02/20/23 at 1332, Administer intravenous route when available and notify provider when administered. For unintended sedation or respiratory depression if all of the below criteria are met: ~ respiratory rate LESS than or EQUAL to 8. ~ SaO2 less than 92% and or/end-tidal CO2 is greater than 50. ~ the patient is receiving an opioid, has unintended sedation assessed as RASS (-4) or (-5) and patient is currently not on mechanical ventilation. RASS scale (-4) is deep sedation with no response to voice but movement or eye opening to physical stimulation. RASS scale (-5) is unarousable. Patient Monitoring Once the patient has demonstrated a response to the naloxone, continue to monitor respiratory rate, depth, oxygen saturation and end-tidal CO2 (if available) every 15 minutes x 2, then every 30 minutes x 2, then every 1 hour x 1 after each naloxone dose. Consider transfer to ICU if patient respiratory parameters have not improved after 4 naloxone doses. Or naloxone (NARCAN) injection 0.2 mgJump to med 0.2 mg (0.79768 mg/kg), Intramuscular, EVERY 2 MIN PRN, opioid reversal, Starting on Sat02/20/23 at 1332, Administer intramuscular if an intravenous route is not available and notify provider when administered. For unintended sedation or respiratory depression if all of the below criteria are met: ~ respiratory rate LESS than or EQUAL to 8. ~SaO2 less than 92% and or/end-tidal CO2 is greater than 50. ~ the patient is receiving an opioid, has unintended sedations assessed as RASS (- 3), and is currently not on mechanical ventilation. RASS scale moderate (-3) is movement or eye opening to voice but no eye contact. Patient Monitoring Once the patient has demonstrated a response to the naloxone, continue to monitor respiratory rate, depth, oxygen saturation and end-tidal CO2 (if available) every 15 minutes x 2, then every 30 minutes x 2, then every 1 hour x 1 after each naloxone dose. Consider transfer to ICU if patient respiratory parameters have not improved after 4 naloxone doses. Or naloxone (NARCAN) injection 0.4 mgJump to med 0.4 mg (0.14490 mg/kg), Intramuscular, EVERY 2 MIN PRN, opioid reversal, Starting on Sat02/20/23 at 1332, Administer intramuscular if an intravenous route is not available and notify provider when administered. For unintended sedation or respiratory depression if all of the below criteria are met: ~ respiratory rate LESS than or EQUAL to 8. ~ SaO2 less than 92% and or/end-tidal CO2 is greater than 50. ~ the patient is receiving an opioid, has unintended sedation assessed as RASS (- 4) or (-5) and patient is currently not on mechanical ventilation. RASS scale (-4) is deep sedation with no response to voice but movement or eye opening to physical stimulation. RASS scale (-5) is unarousable. Patient Monitoring Once the patient has demonstrated a response to the naloxone, continue to monitor respiratory rate, depth, oxygen saturation and end-tidal CO2 (if available) every 15 minutes x 2, then every 30 minutes x 2, then every 1 hour x 1 after each naloxone dose. Consider transfer to ICU if patient respiratory parameters have not improved after 4 naloxone doses. Group 3: ondansetron (ZOFRAN ODT) ODT tab 4 mgJump to med 4 mg (0.0973 mg/kg), Oral, EVERY 6 HOURS PRN, nausea, vomiting, Starting on Sat02/19/23 at 2310, This is Step 1 of nausea and vomiting management. If nausea not resolved in 15 minutes, go to Step 2 prochlorperazine (COMPAZINE). With dry hands, peel back foil backing and gently remove tablet. Do not push oral disintegrating tablet through foil backing. Administer immediately on tongue and oral disintegrating tablet dissolves in seconds, then swallow with saliva. Liquid not required. Or ondansetron (ZOFRAN) injection 4 mgJump to med 4 mg (0.0973 mg/kg), Intravenous, EVERY 6 HOURS PRN, nausea, vomiting, Administer over 2-5 Minutes, Starting on Sat02/19/23 at 2310, Give IF patient unable to tolerate oral medication. This is Step 1 of nausea and vomiting management. If nausea not resolved in 15 minutes, go to Step 2 prochlorperazine (COMPAZINE). Irritant. 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
--- OUTSIDE RECORDS SUMMARY | 2023-02-22 16:13 | XMS_ITS | Encounter Summary ---
Author Name Unknown Organization [facility] Address [address] [place] [id number] Care Team Providers Care Clock Mechanic Name Role Phone Man Adan Primary Care Provider [phone] Reason for Visit * Reason Comments Generalized Weakness * Auth/Cert (Routine) Specialty Diagnoses / Procedures Referred By Contmagaly t Referred To Contact Orthopedics Diagnoses Anemia ESRD (end stage renal disease) on dialysis (H) Acute on chronic anemia Anemia Acute on chronic anemia ESRD (end stage renal disease) on dialysis (H) [facility] [address] [place] [address] Referral ID Status Reason Start Date Expiration Date Visits Re quested Visits Authorized [id number] 1 1 Encounter Details Date Type Department Care Team ([facility] st Contact Info) Description 12/12/2022 9:31 PM CDT - 12/18/2022 2:34 PM [facility] Hospital Encounter [facility] [address] [place] [address] Jason Tapia MD [facility] [address] [place], [place] [address] Arsenio Flores, DO [address] [place], [place] [address] Anemia, unspecified type (Primary Dx); Acute on chronic anemia; ESRD (end stage renal disease) on dialysis (H); Chronic obstructive pulmonary disease, unspecified COPD type (H); Constipation, unspecified constipation type; SOB (shortness of breath); COVID Discharge Disposition: Home or Self Care Social [...] Sign Reading Time Taken Comments Blood Pressure 153/56 12/18/2022 1:32 PM TRANSCRIBER Pulse 72 12/18/2022 1:32 PM TRANSCRIBER Temperature 36.1 ??C (97 ??F) 12/18/2022 1:32 PM TRANSCRIBER Respiratory Rate 18 12/18/2022 1:32 PM TRANSCRIBER Oxygen Saturation 95% 12/18/2022 1:32 PM TRANSCRIBER Inhaled Oxygen Concentration - - Weight 46.6 kg (102 lb 11.2 oz) 12/17/2022 2:13 PM TRANSCRIBER Height 154.9 cm (5' 1) 12/13/2022 3:15 AM CDT Body Mass Index 19.4 12/13/2022 3:15 AM CDT documented in this encounter Discharge Summaries * Lisa Ospina MD - 12/18/2022 11:[address] [facility] Hospitalist Discharge Summary Date of Admission: 12/12/2022 Date of Discharge: 12/18/2022 Discharging Provider: Lisa Ospina MD Discharge Service: Hospitalist Service Discharge Diagnoses Acute on chronic symptomatic anemia, likely secondary to acute blood loss anemia Acute respiratory failure with hypoxia, resolved COPD ESRD on HD Recent peritonitis 2/2 corynebacterium stratum Colonic wall thickening, incidentally noted Acute Diastolic Heart Failure/HFpEF Type 2 diabetes mellitus Hypertension Moderate Protein Calorie Malnutrition Clinically Significant Risk Factors Follow-ups Needed After Discharge Repeat EGD in 2 months Colonoscopy as outpatient, colonic wall thickening noted Consider starting insulin as outpatient if remains hyperglycemic on outpatient regimen Discharge Disposition Discharged to home Condition at discharge: Stable Hospital Course Summary: Maricruz Vanegas is a 77 year old female with PMHx of ESRD, T2DM, HTN, chronic pain, tobacco use disorder, COPD, recent COVID infection, recent hospitalization for Corynebacterium peritonitis that required removal of PD catheter and initiation of HD, who was admitted on 12/12/2022 with generalized weakness in setting of acute symptomatic anemia. Acute on chronic symptomatic anemia Presented with hemoglobin of 4. Baseline approximately 8-10 from last week. Did have a small hematoma at the site of the prior PD catheter. Work-up negative for evidence of hemolysis. EGD showed nonobstructing nonbleeding duodenal ulcers with no stigmata of bleeding. Heme-onc consulted and feels anemia likely 2/2 hematoma at previous PD site, no further workup needed. Unclear exact source of bleed, but Hgb stabilized after transfusion of 2U pRBCs. Recommend: - PPI twice daily - Consider repeat EGD in 2 months to document healing if desired Acute hypoxic respiratory insufficiency COPD Admitted several weeks ago for COVID, has since required supplemental oxygen. Suspect component of volume overload as well in setting of several transfusions and improved after 2L fluid off with dialysis 12/14. Now on 1 L. On review of previous CT done last year, chronic COPD/emphysematous changes. -Started Incruse Ellipta -Prescribed as needed albuterol inhaler ESRD on HD Recent peritonitis 2/2 corynebacterium stratum Recently initiated on HD last admission after PD related peritonitis. Continue dialysis. Colonic wall thickening Noted on CT. - Outpatient colonoscopy Consultations This Hospital Stay GASTROENTEROLOGY IP CONSULT NEPHROLOGY IP CONSULT HEMATOLOGY & ONCOLOGY IP CONSULT CARE MANAGEMENT / SOCIAL WORK IP CONSULT PHARMACY TO DOSE VANCO CARE MANAGEMENT / SOCIAL WORK IP CONSULT RESPIRATORY CARE IP CONSULT Code Status Full Code Time Spent on this Encounter I, Lisa Ospina MD, personally saw the patient today and spent greater than 30 minutes discharging this patient. Lisa Ospina MD [facility] [address] [facility] [address] Physical Exam Vital Signs: Temp: 98 ??F (36.7 ??C) Temp src: Oral BP: 134/76 Pulse: 56 Resp: 10 SpO2: 100 % O2 Device: Nasal cannula Oxygen Delivery: 2 LPM Weight: 102 lbs 11.2 oz Primary Care Physician MAN ADAN Discharge Orders No discharge procedures on file. Significant Results and Procedures Most Recent 3 CBC's: Recent Labs Lab Test 12/17/22 0631 12/16/22 0612 12/15/22 0545 12/14/22 0545 WBC -- 14.8* 16.1* 19.4* HGB 7.1* 7.2* 8.0* 8.2* MCV -- 97 99 96 PLT -- 237 265 280 Most Recent 3 BMP's: Recent Labs Lab Test 12/17/22 1240 12/17/22 0808 12/17/22 0631 12/16/22 0724 12/16/2212 12/15/2218 12/15/22 0545 NA -- -- 128* -- 135 -- 133* POTASSIUM -- -- 5.0 -- 4.2 -- 3.9 CHLORIDE -- -- 93* -- 98 -- 96* CO2 -- -- 25 -- 29 -- 30* BUN -- -- 30.8* -- 23.6* -- 14.0 CR -- -- 3.80* -- 3.42* -- 2.72* ANIONGAP -- -- 10 -- 8 -- 7 PASTOR -- -- 7.8* -- 7.9* -- 8.6* GLC 261* 112* 86 < > 146* < > 183* < > = values in this interval not displayed. , Results for orders placed or performed during the hospital encounter of 12/12/22 XR Chest 2 Views Narrative EXAM: XR CHEST 2 VIEWS LOCATION: [facility] DATE: 12/13/2022 INDICATION: cough COMPARISON: 11/29/2022 Impression IMPRESSION: Heart size within normal limits. Calcified aortic arch. Mild streaky left basilar atelectasis or infiltrate. The right lung is clear. No pneumothorax. CTA Abdomen Pelvis with Contrast Narrative EXAM: CTA ABDOMEN PELVIS WITH CONTRAST LOCATION: [facility] DATE: 12/13/2022 INDICATION: acute on chronic anemia, melena, please do GI bleed protocol. ESRD, on hemodialysis, Recent removal of peritoneal dialysis catheter COMPARISON: 11/28/2022 TECHNIQUE: CT angiogram abdomen pelvis during arterial phase of injection of IV contrast. 2D and 3DMIP reconstructions were performed by the manufacturing engineering technologist. Dose reduction techniques were used. [...] remainder of the tube track. There is nosuggestion for active extravasation into this subcutaneous hematoma nor the tract. Abdominal wall musculature appears normal. Impression IMPRESSION: 1. There is a small subcutaneous [...] to segmental colitis. There is no definitive hyperemiainvolving this segment and no evidence for active extravasation. Discharge Medications Current Discharge Medication List CONTINUE these medications which have NOT CHANGED Details albuterol (PROVENTIL) (2.5 MG/3ML) 0.083% neb solution Take 2.5 mg by nebulization every 4 hours asneeded for shortness of breath amLODIPine (NORVASC) 10 MG tablet Take 10 mg by mouth 2 times daily aspirin 81 MG EC tablet Take 81 mg by mouth daily calcium acetate (PHOSLO) 667 MG CAPS capsule Take 667 mg by mouth 3 times daily (with meals) carboxymethylcellulose PF (REFRESH PLUS) 0.5 % ophthalmic solution Place 1 drop Into the left eye 4times daily cetirizine (ZYRTEC) 10 MG tablet Take 10 mg by mouth daily cloNIDine (CATAPRES) 0.1 MG tablet Take 2 tablets (0.2 mg) by mouth every morning and take 3 tablets by mouth (0.3 mg) every evening erythromycin (ROMYCIN) 5 MG/GM ophthalmic ointment Place Into the left eye 4 times daily furosemide (LASIX) 40 MG tablet Take 40 mg by mouth daily gabapentin (NEURONTIN) 300 MG capsule Take 300 mg by mouth at bedtime glipiZIDE (GLUCOTROL XL) 10 MG 24 hr tablet Take 20 mg by mouth daily (before supper) ipratropium - albuterol 0.5 mg/2.5 mg/3 mL (DUONEB) 0.5-2.5 (3) MG/3ML neb solution Inhale 3 mLs into the lungs every 6 hours as needed for shortness of breath labetalol (NORMODYNE) 300 MG tablet Take 300 mg by mouth 3 times daily wshbzyrz-mfloufpkr-rygJMFKNbluap (MAXITROL) 3.5-68522-5.[address] 0.25 inches Into the left eye 4 times daily nicotine (NICODERM CQ) 7 MG/24HR [address] 1 patch onto the skin every 24 hours oxyCODONE (ROXICODONE) 5 MG tablet Take 10 mg by mouth at bedtime polyethylene glycol (MIRALAX) 17 g packet Take [...] Apply topically daily as needed for irritation Allergies Allergies Allergen Reactions Blood Transfusion Related [...] Lisinopril-Hydrochlorothiazide Rash Niacin Rash and Itching itch [place] Rash Pioglitazone Rash Itchy rash SCRIBER documented in this encounter Discharge Instructions * Attachments The following attachments cannot be sent through Care Everywhere. * Diabetes: Renal Diet (Ecuadorean) documented in this encounter Medications at Time [...] by mouth 2 times daily 0 03/01/2022 crfmzyee-clvgbysek-jon AMETHasone (MAXITROL) 3.5-50677-3.[address] 0.25 inches Into the left eye 4 times daily 0 09/24/2022 oxyCODONE (ROXICODONE) 5 MG tablet Take 10 mg by mouth at bedtime 0 04/17/2021 pantoprazole (PROTONIX) 40 MG EC tabletIndications:Anem ia, unspecified type Take 1 tablet (40 mg) [...] by mouth every 3 days 0 10/13/2022 sorbitol 70 % SOLN solution Take 30 mLs by mouth every 3 days 0 01/09/2022 triamcinolone (KENALOG) 0.1 % external cream Apply topically daily as needed for irritation 0 01/24/2021 umeclidinium (INCRUSE ELLIPTA) 62.5 MCG/ACT inhalerIndications:Chr onic obstructive pulmonary disease, unspecified COPD type (H) Inhale 1 puff into the lungs daily 7 each 0 12/18/2022 furosemide (LASIX) 80 MG tabletIndications:ESRD (end stage renal disease) on dialysis (H) Take 1 tablet (80 mg) by mouth 2 times daily Take 1 tablet twice a day on Saturday, Saturday, , Saturday 30 tablet 0 12/17/2022 02/21/2023 gabapentin (NEURONTIN) 300 MG capsule Take 300 mg by mouth at bedtime 0 09/07/2022 02/20/2023 nicotine (NICODERM CQ) 7 MG/24HR [address] 1 patch onto the skin every 24 hours 0 11/24/2021 02/20/2023 senna-docusate (SENOKOT-S/PERICOLACE) 8.6-50 MG tabletIndications:Cons tipation, unspecified constipation type Take 1 tablet by mouth 2 times daily 60 tablet 0 12/17/2022 02/20/2023 documented as of this encounter Progress Notes * Lizbeth Nelson RN - 12/18/2022 2:25 PM CST Care Management Discharge Note Discharge Date: 12/18/2022 Discharge Disposition: Home Discharge Services: None Discharge DME: None Discharge Transportation: public transportation (Cab) Private pay costs discussed: Not applicable Persons Notified of Discharge Plans: Bedside RN Patient/Family in Agreement with the Plan: yes Handoff Referral Completed: No Additional Information: Patient is medically ready for discharge today. Patient is in need of taxi ride back to home in [place]. [employer] called and set up [employer] taxi for quill picking machine operator at [phone] today. Bedside nurse notified, patient is ready to go and will meet taxi downstairs at front door. No further discharge needs noted. Lizbeth Nelson RN [facility] [phone] SCRIBER * Marco Santacruz RN - 12/18/2022 2:18 PM CST Patient discharged to home via taxi accompanied by no family/friend . IV: Discontinued Prescriptions of Protonix and lasix given to patient Belongings reviewed and sent with patient. Home medications returned to patient: NA Equipment sent with: patient, N/A. patient verbalizes understanding of discharge instructions. AVS given to patient. Additional education completed. SCRIBER * Michele Chaudhary MD - 12/18/2022 1:48 PM CST Renal Medicine Progress Note Assessment/Plan: 77 y.o woman with ESRD, who was recently transitioned from PD to hemodialysis due to peritonitis. # ESRD -LUE AVF -3 hrs -EDW TBD -not making as much urine since on HD # Hypertension: BP is controlled -Norvasc 10 mg daily -Clonidine 0.2 mg in AM and 0.3 mg in PM -Labetalol 300 mg tid -Lasix 80 mg bid on non-HD days # Anemia: -ELA with HD # COPD Plan: # Next HD tx is outpatient with her dialysis unit if she is discharged today. # She wants to retry PD. I advised her to discuss that with her customer accounts advisor outpatient. Interval History: She feels well. Not needing supplemental O2. Denies abdominal pain. She says she is going home today. Complain of some pain over over the site where she was cannulated. Medications and Allergies: - MEDICATION INSTRUCTIONS for Dialysis Patients - Does not apply See Admin Instructions amLODIPine 10 mg Oral BID carbamide peroxide 3 drop Both Ears BID carboxymethylcellulose PF 1 drop Left Eye 4x Daily cetirizine 10 mg Oral Daily cloNIDine 0.2 mg Oral QAM cloNIDine 0.3 mg Oral QPM erythromycin Left Eye 4x Daily furosemide 80 mg Oral 2 times per day on Saturday gabapentin 300 mg Oral At Bedtime insulin aspart 1-6 Units Subcutaneous TID w/meals insulin glargine 6 Units Subcutaneous QAM AC labetalol 300 mg Oral TID pantoprazole 40 mg Oral BID AC sorbitol 30 mL Oral Q3 Days umeclidinium 1 puff Inhalation Daily vancomycin place salcedo - receiving intermittent dosing 1 each Intravenous See Admin Instructions Allergies Allergen Reactions Blood Transfusion Related (Informational [...] Lisinopril-Hydrochlorothiazide Rash Niacin Rash and Itching itch [place] Rash Pioglitazone Rash Itchy rash Physical Exam: Vitals were reviewed , Blood pressure (!) 153/56, pulse 72, temperature 97 ??F (36.1 ??C), temperature source Temporal, resp. rate 18, height 1.549 m (5' 1), weight 46.6 kg (102 lb 11.2 oz), SpO2 95%. Wt Readings from Last 3 Encounters: 12/17/22 46.6 kg (102 lb 11.2 oz) 12/06/22 44.6 kg (98 lb 4.8 oz) 11/24/22 42 kg (92 lb 9.5 oz) Intake/Output Summary (Last 24 hours) at 12/18/2022 1348 Last data filed at 12/17/2022 1740 Gross per 24 hour Intake 0 ml Output 2500 ml Net -2500 ml GENERAL APPEARANCE: NAD. Smilling. HEENT: Eyes/ears/nose/neck grossly normal RESP: crackles and wheezes. CV: RRR, nl S1/S2, ABDOMEN: obese, soft, NT EXTREMITIES/SKIN: no rashes/lesions on observed skin; no edema NEURO: Awake, alert and conversing normally LUE AVF + good pulse. No edema. Data: CBC RESULTS: Recent Labs Lab 12/17/22 0631 12/16/22 0612 12/15/22 0545 12/14/22 0545 12/13/22 1814 12/13/22 1056 12/13/22 0518 12/12/22 2302 12/12/22 2149 WBC -- 14.8* 16.1* 19.4* -- -- 17.3* -- 18.4* RBC -- 2.31* 2.27* 2.41* -- -- 1.02* -- 1.03* HGB 7.1* 7.2* 8.0* 8.2* 5.9* 3.9* 3.8* < > 3.9* HCT -- 22.5* 22.4* 23.2* -- -- 10.6* -- 10.7* PLT -- 237 265 280 -- -- 237 -- 222 < > = values in this interval not displayed. Basic Metabolic Panel: Recent Labs Lab 12/18/22 1247 12/18/22 0845 12/18/22 0808 12/18/22 0144 12/17/22 2216 12/17/22 2210 12/17/22 0808 12/17/22 0631 12/16/22 0724 12/16/22 0612 12/15/22 0718 12/15/22 0545 12/14/22 0750 12/14/22 0545 12/13/22 1744 12/13/22 1233 NA -- 135 -- -- -- -- -- 128* -- 135 -- 133* -- 137 -- 137 POTASSIUM -- 4.2 -- -- -- -- -- 5.0 -- 4.2 -- 3.9 -- 3.3* -- 3.5 CHLORIDE -- 99 -- -- -- -- -- 93* -- 98 -- 96* -- 98 -- 96* CO2 -- 29 -- -- -- -- -- 25 -- 29 -- 30* -- 28 -- 27 BUN -- 17.7 -- -- -- -- -- 30.8* -- 23.6* -- 14.0 -- 30.3* -- 28.7* CR -- 2.67* -- -- -- -- -- 3.80* -- 3.42* -- 2.72* -- 3.40* -- 2.82* GLC 278* 128* 125* 298* 310* 16* < > 86 < > 146* < > 183* < > 106* < > 239* PASTOR -- 7.6* -- -- -- -- -- 7.8* -- 7.9* -- 8.6* -- 8.3* -- 7.6* < > = values in this interval not displayed. INRNo lab results found in last 7 days. Attestation: I have reviewed today's relevant vital signs, notes, medications, labs and imaging. Michele Chaudhary MD [facility] - Nephrology Office phone :[phone] Pager: [phone] SCRIBER * Marco Santacruz RN - 12/18/2022 11:59 AM CST Patient has been assessed for Home Oxygen needs. Oxygen readings: *Pulse oximetry (SpO2) = 97% on room air at rest while awake. *SpO2 = 96% on room air during activity/with exercise. SCRIBER * Lisa Ospina MD - 12/17/2022 4:[address] [facility] Medicine Progress Note - Hospitalist Service Date of Admission: 12/12/2022 Assessment & Plan Summary: Maricruz Vanegas is a 77 year old female with PMHx of ESRD, T2DM, HTN, chronic pain, tobacco use disorder, COPD, recent COVID infection, recent hospitalization for Corynebacterium peritonitis that required removal of PD catheter and initiation of HD, who was admitted on 12/12/2022 with generalized weakness in setting of acute symptomatic anemia. Planning discharge 12/18 Acute on chronic symptomatic anemia Presented with hemoglobin of 4. Baseline approximately 8-10 from last week. Did have a small hematoma at the site of the prior PD catheter. Work-up negative for evidence of hemolysis. EGD today showed nonobstructing nonbleeding duodenal ulcers with no stigmata of bleeding. Heme-onc consulted and feels anemia likely 2/2 hematoma at previous PD site, no further workup needed. Unclear exact source of bleed, but Hgb stabilized after transfusion of 2U pRBCs. -GI consulted - PPI twice daily -H. pylori stool test, treat if positive - Consider repeat EGD in 2 months to document healing if desired Acute hypoxic respiratory insufficiency COPD Admitted several weeks ago for COVID, has since required supplemental oxygen. Suspect component of volume overload as well in setting of several transfusions and improved after 2L fluid off with dialysis 12/14. Now on 1 L. On review of previous CT done last year, chronic COPD/emphysematous changes. -Start Incruse Ellipta -Prescribed as needed albuterol inhaler ESRD on HD Recent peritonitis 2/2 corynebacterium stratum Recently initiated on HD last admission after PD related peritonitis. -nephrology following Colonic wall thickening Noted on CT. - Outpatient colonoscopy Type [address] SCAN TECHNICIAN. - MDSSI --Started Lantus [address] SCAN TECHNICIAN amlodipine, furosemide, labetalol, clonidine Diet: Regular Diet Adult Snacks/Supplements Adult: Nepro Oral Supplement; Between Meals Diet DVT Prophylaxis: contraindicated Jones Catheter: Not present Lines: None Cardiac Monitoring: None Code Status: Full Code Clinically Significant Risk Factors # Hyponatremia: Lowest Na = 128 mmol/L in last 2 days, will monitor as appropriate # Hypoalbuminemia: Lowest albumin = 2.5 g/dL at 12/17/2022 6:31 AM, will monitor as appropriate # Financial/Environmental Concerns: none Disposition Plan Expected Discharge Date: 12/18/2022, 3:00 PM Lisa Ospina MD Hospitalist Service [facility] Securely message with [employer] (more info) Text page via [facility] Paging/Directory Interval History Weaned to 1L 02. Patient reports ferocious appetite, had 3 lunches. Physical Exam Vital Signs: Temp: 98.3 ??F (36.8 ??C) Temp src: Oral BP: (!) 157/72 Pulse: 67 Resp: 16 SpO2: 100 %O2 Device: Nasal cannula Oxygen Delivery: 2 LPM Weight: 102 lbs 11.2 oz General: Very pleasant female sitting upright eating lunch. Awake, alert, interactive. HEENT: Normocephalic, atraumatic. Sclerae anicteric. Mucous membranes moist. Respiratory: Normal work of breathing. Musculoskeletal: Moving all extremities appropriately. Skin: No rashes or abrasions on exposed skin. Neurologic: Alert. No gross focal deficits. Medical Decision Making 45 MINUTES SPENT BY ME on the date of service doing chart review, history, exam, documentation & further activities per the note. Data I have personally reviewed the following data over the past 24 hrs: N/A \ 7.1 (L) / N/A 128 (L) 93 (L) 30.8 (H) / 261 (H) 5.0 25 3.80 (H) \ ALT: N/A AST: N/A AP: N/A TBILI: N/A ALB: 2.5 (L) TOT PROTEIN: N/A LIPASE: N/A SCRIBER * Michele Chaudhary MD - 12/17/2022 3:57 PM CST Renal Medicine Progress Note Assessment/Plan: 77 y.o woman with ESRD, who was recently transitioned from PD to hemodialysis due to peritonitis. # ESRD # Hypertension # Anemia # COPD Plan: # 3 hrs HD. UF ~ 2.5 liters net. # EPO 10K units # Increase Lasix to 80 mg bid on non-HD days Interval History: She says she was having a heart time breathing last night. She is using supplemental O2. No other complaints. Medications and Allergies: - MEDICATION INSTRUCTIONS for Dialysis Patients - Does not apply See Admin Instructions amLODIPine 10 mg Oral BID carbamide peroxide 3 drop Both Ears BID carboxymethylcellulose PF 1 drop Left Eye 4x Daily cetirizine 10 mg Oral Daily cloNIDine 0.2 mg Oral QAM cloNIDine 0.3 mg Oral QPM epoetin jose-epbx 10,000 Units Intravenous Once in dialysis/CRRT erythromycin Left Eye 4x Daily furosemide 40 mg Oral Daily gabapentin 300 mg Oral At Bedtime insulin aspart 1-6 Units Subcutaneous TID w/meals insulin glargine 6 Units Subcutaneous QAM AC labetalol 300 mg Oral TID - MEDICATION INSTRUCTIONS - Does not apply Once pantoprazole 40 mg Oral BID AC sodium chloride 0.9% 250 mL Intravenous Once in dialysis/CRRT sodium chloride 0.9% 300 mL Hemodialysis Machine Once sorbitol 30 mL Oral Q3 Days umeclidinium 1 puff Inhalation Daily vancomycin 500 mg Intravenous Once vancomycin place salcedo - receiving intermittent dosing 1 each Intravenous See Admin Instructions Allergies Allergen Reactions Blood Transfusion Related (Informational [...] Lisinopril-Hydrochlorothiazide Rash Niacin Rash and Itching itch [place] Rash Pioglitazone Rash Itchy rash Physical Exam: Vitals were reviewed , Blood pressure 131/60, pulse 61, temperature 98 ??F (36.7 ??C), temperature source Oral, resp. rate 11, height 1.549 m (5' 1), weight 46.6 kg (102 lb 11.2 oz), SpO2 (!) 76%. Wt Readings from Last 3 Encounters: 12/17/22 46.6 kg (102 lb 11.2 oz) 12/06/22 44.6 kg (98 lb 4.8 oz) 11/24/22 42 kg (92 lb 9.5 oz) Intake/Output Summary (Last 24 hours) at 12/17/2022 1557 Last data filed at 12/17/2022 0900 Gross per 24 hour Intake 320 ml Output -- Net 320 ml GENERAL APPEARANCE: Frail HEENT: Eyes/ears/nose/neck grossly normal RESP: crackles and wheezes. CV: RRR, nl S1/S2, ABDOMEN: obese, soft, NT EXTREMITIES/SKIN: no rashes/lesions on observed skin; no edema NEURO: Awake, alert and conversing normally RIJ tunneled CVC CDI Data: CBC RESULTS: Recent Labs Lab 12/17/22 0631 12/16/22 0612 12/15/22 0545 12/14/22 0545 12/13/22 1814 12/13/22 1056 12/13/22 0518 12/12/22 2302 12/12/22 2149 WBC -- 14.8* 16.1* 19.4* -- -- 17.3* -- 18.4* RBC -- 2.31* 2.27* 2.41* -- -- 1.02* -- 1.03* HGB 7.1* 7.2* 8.0* 8.2* 5.9* 3.9* 3.8* < > 3.9* HCT -- 22.5* 22.4* 23.2* -- -- 10.6* -- 10.7* PLT -- 237 265 280 -- -- 237 -- 222 < > = values in this interval not displayed. Basic Metabolic Panel: Recent Labs Lab 12/17/22 1240 12/17/22 0808 12/17/22 0631 12/17/22 0212 12/16/22 2206 12/16/22 1731 12/16/22 0724 12/16/22 0612 12/15/22 0718 12/15/22 0545 12/14/22 0750 12/14/22 0545 12/13/22 1744 12/13/22 1233 12/13/22 0216 12/12/22 2149 NA -- -- 128* -- -- -- -- 135 -- 133* -- 137 -- 137 -- 137 POTASSIUM -- -- 5.0 -- -- -- -- 4.2 -- 3.9 -- 3.3* -- 3.5 -- 3.2* CHLORIDE -- -- 93* -- -- -- -- 98 -- 96* -- 98 -- 96* -- 97* CO2 -- -- 25 -- -- -- -- 29 -- 30* -- 28 -- 27 -- 30* BUN -- -- 30.8* -- -- -- -- 23.6* -- 14.0 -- 30.3* -- 28.7* -- 23.3* CR -- -- 3.80* -- -- -- -- 3.42* -- 2.72* -- 3.40* -- 2.82* -- 1.98* GLC 261* 112* 86 130* 170* 92 < > 146* < > 183* < > 106* < > 239* < >273* PASTOR -- -- 7.8* -- -- -- -- 7.9* -- 8.6* -- 8.3* -- 7.6* -- 7.9* < > = values in this interval not displayed. INRNo lab results found in last 7 days. Attestation: I have reviewed today's relevant vital signs, notes, medications, labs and imaging. Michele Chaudhary MD [facility] - Nephrology Office phone :[phone] Pager: [phone] SCRIBER * Aranza Self, RN - 12/17/2022 2:42 PM CST Potassium Date Value Ref Range Status 12/17/2022 5.0 3.4 - 5.3 mmol/L Final Hemoglobin Date Value Ref Range Status 12/17/2022 7.1 (L) 11.7 - 15.7 g/dL Final Creatinine Date Value Ref Range Status 12/17/2022 3.80 (H) 0.51 - 0.95 mg/dL Final Urea Nitrogen Date Value Ref Range Status 12/17/2022 30.8 (H) 8.0 - 23.0 mg/dL Final Sodium Date Value Ref Range Status 12/17/2022 128 (L) 135 - 145 mmol/L Final Comment: Reference [...] bath with a net fluid removal of 2.5L. A BFR of 350-400ml/min was obtained via a L AVF using 15 gauge needles. The treatment plan was discussed with Dr. Chaudhary during the treatment. Total heparin received during the treatment: 0 units. Needle cannulation sites held x 10 minutes to each access site Meds given: 10,000 units epoetin given Complications: none Person educated: patient. Knowledge base substantial. Barriers to learning: none. Educated on procedure, access care and medication via verbal mode. Patient verbalized understanding. ICEBOAT? Timeout performed pre-treatment I: Patient was identified using 2 identifiers C: Consent Signed Yes E: Equipment preventative maintenance is current and dialysis delivery system OK to use B: Latest Reference Range & Units 11/29/22 06:28 Hep B Surface Agn Nonreactive Nonreactive Hepatitis B Surface Antibody Instrument Value <8.00 m[IU]/mL 10.65 Hepatitis B Surface Antibody Indeterminate O: Dialysis orders present and complete prior to treatment A: Vascular access verified and assessed prior to treatment T: Treatment was performed at a clinically appropriate time ?: Patient was allowed to ask questions and address concerns prior to treatment See Adult Hemodialysis flowsheet in [employer] for further details and post assessment. Machine water alarm in place and functioning. Transducer pods intact and checked every 15min. Pt returned via wheelchair transport. Chlorine/Chloramine water system checked every 4 hours. Outpatient Dialysis at at [facility] [place] on MWF Patient repositioned every 2 hours during the treatment. Post treatment report given to Todd Angela RN regarding 2.5L of fluid removed, last BP of 157/72, andpatient pain rating of 0/10. Please remove patient dressing on AVF and AVG needle sites 24 hours after dialysis. If leaking occurs please apply a Band-Aid. SCRIBER * Lluvia Medley RD - 12/17/2022 1:35 PM CST CLINICAL NUTRITION SERVICES - BRIEF NOTE - Refer to RD assessment completed on 12/14. Patient was unavailable/off unit at that time. - Followed up today for malnutrition screen. - Patient reports when she is at home she does not have concerns w/ eating or appetite, she notes her weight has been low around 90# for some time. Meals BID is normal and she also takes novasource renal daily by mouth as an oral supplement per report. - Maricruz reports she is eating well so far here in the hospital, but not at first because of her restricted diet which was liberalized to regular by MD on 12/14. MALNUTRITION % Weight Loss: None noted --> per patient report, low BMI for time per description % Intake: Decreased intake does not meet criteria for malnutrition Subcutaneous Fat Loss: Orbital region moderate depletion and Upper arm region severe depletion Muscle Loss: Temporal region severe depletion, Clavicle bone region severe depletion, Acromion boneregion severe depletion, Patellar region severe depletion, Anterior thigh region severe depletion, and Posterior calf region severe depletion Fluid Retention: None noted or documented Malnutrition Diagnosis: Moderate malnutrition In Context of: Acute illness or injury Chronic illness or disease - Patient does report that she wants to receive Nepro while acutely admitted. Scheduled vanilla at 2 pm per pt request. - Attempted to add renal MVI w/ baseline HD but contraindicated d/t allergy. - Will continue following. Lluvia Medley RDN, LD Clinical Dietitian 3rd floor/ICU: [phone] All other floors: [phone] Weekend/holiday: [phone] Office: [phone] SCRIBER * Karime Navarrete RN - 12/16/2022 10:20 PM CST Pt is A&OX3, on 0.5 L oxygen. LS wheezing and crackles present. Continues on PRN Duoneb, no dizziness, Pt denies N/V. No BM today. Voiding, ambulates to bathroom, SBA.no dizziness, no chills.c/o pain 8-10/21, takes PRN Oxycodone, refused Tylenol. SCRIBER * David Treviño MD - 12/16/2022 3:[address] [facility] Renal Progress Note SHORTHAND WHITAKER FOR MY NOTES: c = with, s = without, p = after, a = before, x = except, asx = asymptomatic, tx = transplant or treatment, sx = symptoms or symptomatic, cx = canceled or culture, rxn = reaction, yday = yesterday, nl = normal, abx = antibiotics, fxn = function, dx = diagnosis, dz = disease, m/h = melena/hematochezia, c/d/l/robles = cramping/dizziness/lightheadedness/headache, d/c = discharge or diarrhea/constipation, f/c/n/v = fevers/chills/nausea/vomiting, cp/sob = chest pain/shortnessof breath, tbv = total body volume, rxn = reaction, tdc = tunneled dialysis catheter, mine captain = prior to admission, hd = hemodialysis, pd = peritoneal dialysis, hhd = home hemodialysis, edw = estimated dry wt Assessment/Plan: 1. ESKD. Pt is on a MWF schedule. She will run tmrw. A. Next HD on Saturday. Orders placed. 2. Severe anemia. Pt's hb is low again today. She denies any GIB. A. Continue high dose PPI. B. Follow hb, clinically. 3. Severe HTN. Pt's BP is better today p fluid removal and meds. She is at a new EDW since we driedher out on Saturday and her BP dropped. A. Continue same meds/doses. B. Weigh pt p HD tmrw to record new dry wt. 4. Leucocytosis. Pt's WBC remains elevated. No clear etiology. She was on IV vanco at HD for her peritonitis. A. Continue IV vanco p HD to complete course. 5. Constipation. Pt needs sorbitol. A. Give sorbitol + Miralax today. Interval History: Pt is feeling ok x she is quite constipated. She usually takes sorbitol and Miralax together. No cp/sob/abd pain. Medications and Allergies: - MEDICATION INSTRUCTIONS for Dialysis Patients - Does not apply See Admin Instructions amLODIPine 10 mg Oral BID carbamide peroxide 3 drop Both Ears BID carboxymethylcellulose PF 1 drop Left Eye 4x Daily cetirizine 10 mg Oral Daily cloNIDine 0.2 mg Oral QAM cloNIDine 0.3 mg Oral QPM erythromycin Left Eye 4x Daily furosemide 40 mg Oral Daily gabapentin 300 mg Oral At Bedtime insulin aspart 1-6 Units Subcutaneous TID w/meals insulin glargine 6 Units Subcutaneous QAM AC labetalol 300 mg Oral TID pantoprazole 40 mg Oral BID AC sorbitol 30 mL Oral Q3 Days umeclidinium 1 puff Inhalation Daily vancomycin place salcedo - receiving intermittent dosing 1 each Intravenous See Admin Instructions Allergies Allergen Reactions Blood Transfusion Related (Informational [...] Lisinopril-Hydrochlorothiazide Rash Niacin Rash and Itching itch [place] Rash Pioglitazone Rash Itchy rash Physical Exam: Vitals were reviewed , Blood pressure 138/51, pulse 63, temperature 97.7 ??F (36.5 ??C), temperature source Temporal, resp. rate 16, height 1.549 m (5' 1), weight 40.6 kg (89 lb 8 oz), SpO2 98%. Wt Readings from Last 3 Encounters: 12/15/22 40.6 kg (89 lb 8 oz) 12/06/22 44.6 kg (98 lb 4.8 oz) 11/24/22 42 kg (92 lb 9.5 oz) Intake/Output Summary (Last 24 hours) at 12/16/2022 1540 Last data filed at 12/16/2022 0230 Gross per 24 hour Intake 420 ml Output -- Net 420 ml GENERAL APPEARANCE: pleasant, NAD, alert RESP: CTA B c good efforts CV: RRR, nl S1/S2 ABDOMEN: s/nt/nd EXTREMITIES/SKIN: no ble edema ACCESS: LAF - good thrill/bruit Data: CBC RESULTS: Recent Labs Lab 12/16/22 0612 12/15/22 0545 12/14/22 0545 12/13/22 1814 12/13/22 1056 12/13/22 0518 12/12/22 2302 12/12/22 2149 WBC 14.8* 16.1* 19.4* -- -- 17.3* -- 18.4* RBC 2.31* 2.27* 2.41* -- -- 1.02* -- 1.03* HGB 7.2* 8.0* 8.2* 5.9* 3.9* 3.8* < > 3.9* HCT 22.5* 22.4* 23.2* -- -- 10.6* -- 10.7* PLT 237 265 280 -- -- 237 -- 222 < > = values in this interval not displayed. Basic Metabolic Panel: Recent Labs Lab 12/16/22 1121 12/16/22 0724 12/16/22 0612 12/16/22 0102 12/15/22 2208 12/15/22 1709 12/15/22 0718 12/15/22 0545 12/14/22 0750 12/14/22 0545 12/13/22 1744 12/13/22 1233 12/13/22 0216 12/12/22 2149 NA -- -- 135 -- -- -- -- 133* -- 137 -- 137 -- 137 POTASSIUM -- -- 4.2 -- -- -- -- 3.9 -- 3.3* -- 3.5 -- 3.2* CHLORIDE -- -- 98 -- -- -- -- 96* -- 98 -- 96* -- 97* CO2 -- -- 29 -- -- -- -- 30* -- 28 -- 27 -- 30* BUN -- -- 23.6* -- -- -- -- 14.0 -- 30.3* -- 28.7* -- 23.3* CR -- -- 3.42* -- -- -- -- 2.72* -- 3.40* -- 2.82* -- 1.98* GLC 316* 155* 146* 171* 226* 275* < > 183* < > 106* < > 239* < > 273* PASTOR -- -- 7.9* -- -- -- -- 8.6* -- 8.3* -- 7.6* -- 7.9* < > = values in this interval not displayed. INRNo lab results found in last 7 days. Attestation: I have reviewed today's relevant vital signs, notes, medications, labs and imaging. David Treviño MD [facility] - Nephrology [phone] SCRIBER * Lisa Ospina MD - 12/16/2022 9:00 AM CST [facility] Medicine Progress Note - Hospitalist Service Date of Admission: 12/12/2022 Assessment & Plan Summary: Maricruz Vanegas is a 77 year old female with PMHx of ESRD, T2DM, HTN, chronic pain, tobacco use disorder, COPD, recent COVID infection, recent hospitalization for Corynebacterium peritonitis that required removal of PD catheter and initiation of HD, who was admitted on 12/12/2022 with generalized weakness in setting of acute symptomatic anemia. Acute on chronic symptomatic anemia Presented with hemoglobin of 4. Baseline approximately 8-10 from last week. Did have a small hematoma at the site of the prior PD catheter. Work-up negative for evidence of hemolysis. EGD today showed nonobstructing nonbleeding duodenal ulcers with no stigmata of bleeding. Heme-onc consulted and feels anemia likely 2/2 hematoma at previous PD site, no further workup needed. Unclear exact source of bleed, but Hgb stabilized after transfusion of 2U pRBCs. -GI consulted - PPI twice daily -H. pylori stool test, treat if positive - Consider repeat EGD in 2 months to document healing if desired Acute hypoxic respiratory insufficiency COPD Admitted several weeks ago for COVID, has since required supplemental oxygen. Suspect component of volume overload as well in setting of several transfusions and improved after 2L fluid off with dialysis 12/14. Now on 1 L. On review of previous CT done last year, chronic COPD/emphysematous changes. -Start Incruse Ellipta -Prescribed as needed albuterol inhaler ESRD on HD Recent peritonitis 2/2 corynebacterium stratum Recently initiated on HD last admission after PD related peritonitis. -nephrology following Colonic wall thickening Noted on CT. - Outpatient colonoscopy Type [address] SCAN TECHNICIAN. - MDSSI --Started Lantus [address] SCAN TECHNICIAN amlodipine, furosemide, labetalol, clonidine Diet: Regular Diet Adult DVT Prophylaxis: contraindicated Jones Catheter: Not present Lines: None Cardiac Monitoring: None Code Status: Full Code Clinically Significant Risk Factors # Hypoalbuminemia: Lowest albumin = 2.5 g/dL at 12/12/2022 9:49 PM, will monitor as appropriate # Cachexia: Estimated body mass index is 16.91 kg/m?? as calculated from the following: Height as of this encounter: 1.549 m (5' 1). Weight as of this encounter: 40.6 kg (89 lb 8 oz)., PRESENT ON ADMISSION # Financial/Environmental Concerns: none Disposition Plan Expected Discharge Date: 12/17/2022, 3:00 PM Lisa Ospina MD Hospitalist Service [facility] Securely message with [employer] (more info) Text page via [employer] Paging/Directory Interval History Weaned to 1L 02. Patient reports ferocious appetite, had 3 lunches. Physical Exam Vital Signs: Temp: 96.9 ??F (36.1 ??C) Temp src: Temporal BP: (!) 141/49 Pulse: 66 Resp: 16 SpO2: 97 % O2 Device: Nasal cannula Oxygen Delivery: 1/2 LPM Weight: 89 lbs 8 oz General: Very pleasant female sitting upright eating lunch. Awake, alert, interactive. HEENT: Normocephalic, atraumatic. Sclerae anicteric. Mucous membranes moist. Respiratory: Normal work of breathing. Musculoskeletal: Moving all extremities appropriately. Skin: No rashes or abrasions on exposed skin. Neurologic: Alert. No gross focal deficits. Medical Decision Making 50 MINUTES SPENT BY ME on the date of service doing chart review, history, exam, documentation & further activities per the note. Data I have personally reviewed the following data over the past 24 hrs: 14.8 (H) \ 7.2 (L) / 237 135 98 23.6 (H) / 155 (H) 4.2 29 3.42 (H) \ ALT: N/A AST: N/A AP: N/A TBILI: N/A ALB: 2.6 (L) TOT PROTEIN: N/A LIPASE: N/A SCRIBER * Nidia Yanez, - 12/15/2022 9:26 AM CDT [facility] Medicine Progress Note - Hospitalist Service Date of Admission: 12/12/2022 Assessment & Plan Summary: Maricruz Vanegas is a 77 year old female with PMHx of ESRD, T2DM, HTN, chronic pain, tobacco use disorder, COPD, recent COVID infection, recent hospitalization for Corynebacterium peritonitis that required removal of PD catheter and initiation of HD, who was admitted on 12/12/2022 with generalized weakness in setting of acute symptomatic anemia. Acute on chronic symptomatic anemia Presented with hemoglobin of 4. Baseline approximately 8-10 from last week. Did have a small hematoma at the site of the prior PD catheter. Work-up negative for evidence of hemolysis. EGD today showed nonobstructing nonbleeding duodenal ulcers with no stigmata of bleeding. Heme-onc consulted and feels anemia likely 2/2 hematoma at previous PD site, no further workup needed. Unclear exact source of bleed, but Hgb stabilized after transfusion of 2U pRBCs. -GI consulted - PPI twice daily -H. pylori stool test, treat if positive - Consider repeat EGD in 2 months to document healing if desired Acute hypoxic respiratory insufficiency Suspect volume overload in setting of multiple blood transfusions. Improved somewhat after 2L removed during HD 12/14. Still with crackles on exam. Still makes urine so will try a dose of IV lasix. - 40 IV lasix ESRD on HD Dialyzes MWF via L AVF. Previously on PD, but this was stopped 2/2 peritonitis and patient's request. Patient voiced desire to switch to home dialysis again. Last HD 12/14. -Nephrology consult Recent peritonitis 2/2 corynebacterium stratum Plan for approximately 2 weeks of outpatient IV Vanco. Unfortunately did not receive vancomycin on 12/14 2/ provider error/not ordered. - Continue vancomycin while inpatient Colonic wall thickening Noted on CT. - Outpatient colonoscopy Type [address] SCAN TECHNICIAN. - MDSSI Hypertension Holding CT SCAN TECHNICIAN amlodipine, furosemide, labetalol, clonidine 2/2 acute anemia Excess Cerumen Noticed beating in her ears at night, has resolved in past with OTC ear drops. Ear exam normal but with cerumen. Ordered debrox drops. Diet: Regular Diet Adult DVT Prophylaxis: VTE Prophylaxis contraindicated due to anemia Jones Catheter: Not present Lines: None Cardiac Monitoring: None Code Status: Full Code Clinically Significant Risk Factors # Hypokalemia: Lowest K = 3.3 mmol/L in last 2 days, will replace as needed # Hypoalbuminemia: Lowest albumin = 2.5 g/dL at 12/12/2022 9:49 PM, will monitor as appropriate # Cachexia: Estimated body mass index is 16.91 kg/m?? as calculated from the following: Height as of this encounter: 1.549 m (5' 1). Weight as of this encounter: 40.6 kg (89 lb 8 oz)., PRESENT ON ADMISSION # Financial/Environmental Concerns: Disposition Plan Expected Discharge Date: 12/15/2022 Nidia Yanez DO Hospitalist Service [facility] Securely message with [employer] (more info) Text page via [facility] Paging/Directory Interval History No acute overnight events. Doing well today. Asking about going home. Still on oxygen, so will watch her at least another day. Physical Exam Vital Signs: Temp: 98.8 ??F (37.1 ??C) Temp src: Temporal BP: (!) 156/57 Pulse: 65 Resp: 12 SpO2: 97 % O2 Device: Nasal cannula Oxygen Delivery: 3 LPM Weight: 89 lbs 8 oz Constitutional: Awake, alert, no distress, and cooperative Cardiovascular: Regular rate and rhythm, normal S1 and S2, no S3 or S4, and no murmur noted Respiratory: No increased work of breathing, good air exchange, bibasilar crackles Gastrointestinal: Abdomen soft, non-tender, non-distended. BS normal. No masses, organomegaly Medical Decision Making 45 MINUTES SPENT BY ME on the date of service doing chart review, history, exam, documentation & further activities per the note. Data I have personally reviewed the following data over the past 24 hrs: 16.1 (H) \ 8.0 (L) / 265 133 (L) 96 (L) 14.0 / 231 (H) 3.9 30 (H) 2.72 (H) \ ALT: N/A AST: N/A AP: N/A TBILI: N/A ALB: 2.6 (L) TOT PROTEIN: N/A LIPASE: N/A * Monika Jones RN - 12/14/2022 4:54 PM CDT Potassium Date Value Ref Range Status 12/14/2022 3.3 (L) 3.4 - 5.3 mmol/L Final Hemoglobin Date Value Ref Range Status 12/14/2022 8.2 (L) 11.7 - 15.7 g/dL Final Creatinine Date Value Ref Range Status 12/14/2022 3.40 (H) 0.51 - 0.95 mg/dL Final Urea Nitrogen Date Value Ref Range Status 12/14/2022 30.3 (H) 8.0 - 23.0 mg/dL Final Sodium Date Value Ref Range Status 12/14/2022 137 135 - 145 mmol/L Final Comment: Reference [...] Patient dialyzed for 3 hrs. on a K4 bath with a net fluid removal of 2L. A BFR of 400 ml/min was obtained via a L AVF using 15 gauge needles. The treatment plan was discussed with Dr. Treviño during the treatment. Total heparin received during the treatment: 0 units. Needle cannulation sites held x 5 min. Meds given: EPO Complications: Rapid rise in return pressures, flushed to resolve, found to have large clot in deaeration chamber. Blood returned 15min early. Person educated: patient. Knowledge base moderate. Barriers to learning: none. Educated on procedure via verbal mode. Patient verbalized understanding. ICEBOAT? Timeout performed pre-treatment I: Patient was identified using 2 identifiers C: Consent Signed Yes E: Equipment preventative maintenance is current and dialysis delivery system OK to use B: Latest Reference Range & Units 11/29/22 06:28 Hep B Surface Agn Nonreactive Nonreactive Hepatitis B Surface Antibody Instrument Value <8.00 m[IU]/mL 10.65 Hepatitis B Surface Antibody Indeterminate O: Dialysis orders present and complete prior to treatment A: Vascular access verified and assessed prior to treatment T: Treatment was performed at a clinically appropriate time ?: Patient was allowed to ask questions and address concerns prior to treatment See Adult Hemodialysis flowsheet in EPIC for further details and post assessment. Machine water alarm in place and functioning. Transducer pods intact and checked every 15min. Pt assisted with repositioning throughout dialysis treatment. Pt returned via bed. Chlorine/Chloramine water system checked every 4 hours. Outpatient Dialysis at [facility]. Post treatment report given to SUSANA Horner regarding 2L of fluid removed, last BP 172/85. Please remove patient dressing on AVF and AVG needle sites 24 hours after dialysis. If leaking occurs please apply a Band-Aid. Monika Jones RN * David Treviño MD - 12/14/2022 2:[address] [facility] Renal Progress Note SHORTHAND WHITAKER FOR MY NOTES: c = with, s = without, p = after, a = before, x = except, asx = asymptomatic, tx = transplant or treatment, sx = symptoms or symptomatic, cx = canceled or culture, rxn = reaction, yday = yesterday, nl = normal, abx = antibiotics, fxn = function, dx = diagnosis, dz = disease, m/h = melena/hematochezia, c/d/l/robles = cramping/dizziness/lightheadedness/headache, d/c = discharge or diarrhea/constipation, f/c/n/v = fevers/chills/nausea/vomiting, cp/sob = chest pain/shortnessof breath, tbv = total body volume, rxn = reaction, tdc = tunneled dialysis catheter, mine captain = prior to admission, hd = hemodialysis, pd = peritoneal dialysis, hhd = home hemodialysis, edw = estimated dry wt Assessment/Plan: 1. ESKD. Pt is due for HD today per routine schedule. We will pull more fluid today since she rec'dmultiple units of blood. A. Next HD on Saturday. 2. Severe anemia. Pt had an EGD today that showed ulcers. She is now on a PPI BID. A. Follow hb, clinically. B. Continue high dose PPI. 3. Severe HTN. Pt's BP is quite high on HD today. She is not on any of her home meds bc her BP was initially lower. A. Push fluid removal. B. Resume home meds if BP remains high. 4. Leucocytosis. Pt's WBC remains elevated. No clear etiology. She was on abx at home but doesn't appear to be here. A. Continue abx. Interval History: Pt is doing ok p the EGD. No issues c ongoing bleeding. She is not having any issues c HD. Medications and Allergies: - MEDICATION INSTRUCTIONS for Dialysis Patients - Does not apply See Admin Instructions epoetin jose-epbx 10,000 Units Intravenous Once in dialysis/CRRT insulin aspart 1-6 Units Subcutaneous TID w/meals - MEDICATION INSTRUCTIONS - Does not apply Once pantoprazole 40 mg Oral BID AC sodium chloride 0.9% 250 mL Intravenous Once in dialysis/CRRT sodium chloride 0.9% 300 mL Hemodialysis Machine Once Allergies Allergen Reactions Cats Shortness Of Breath Atorvastatin Hives, Muscle [...] Lisinopril-Hydrochlorothiazide Rash Niacin Rash and Itching itch [place] Rash Pioglitazone Rash Itchy rash Physical Exam: Vitals were reviewed , Blood pressure (!) 145/54, pulse 75, temperature 97.9 ??F (36.6 ??C), temperature source Oral, resp. rate 15, height 1.549 m (5' 1), weight 42.1 kg (92 lb 13 oz), SpO2 94%. Wt Readings from Last 3 Encounters: 12/13/22 42.1 kg (92 lb 13 oz) 12/06/22 44.6 kg (98 lb 4.8 oz) 11/24/22 42 kg (92 lb 9.5 oz) Intake/Output Summary (Last 24 hours) at 12/14/2022 1454 Last data filed at 12/14/2022 1250 Gross per 24 hour Intake 940 ml Output -- Net 940 ml GENERAL APPEARANCE: pleasant, NAD, alert HEENT: eyes/ears/nose/neck grossly nl RESP: CTA B c good efforts CV: RRR, nl S1/S2 ABDOMEN: s/nt/nd EXTREMITIES/SKIN: no ble edema Pt seen on HD. Stable run. Good BFR via LAF. Data: CBC RESULTS: Recent Labs Lab 12/14/22 0545 12/13/22 1814 12/13/22 1056 12/13/22 0518 12/12/22 2302 12/12/22 2149 WBC 19.4* -- -- 17.3* -- 18.4* RBC 2.41* -- -- 1.02* -- 1.03* HGB 8.2* 5.9* 3.9* 3.8* 4.2* 3.9* HCT 23.2* -- -- 10.6* -- 10.7* PLT 280 -- -- 237 -- 222 Basic Metabolic Panel: Recent Labs Lab 12/14/22 1310 12/14/22 1103 12/14/22 0750 12/14/22 0545 12/14/22 0202 12/13/22 2210 12/13/22 1744 12/13/22 1233 12/13/22 0216 12/12/22 2149 NA -- -- -- 137 -- -- -- 137 -- 137 POTASSIUM -- -- -- 3.3* -- -- -- 3.5 -- 3.2* CHLORIDE -- -- -- 98 -- -- -- 96* -- 97* CO2 -- -- -- 28 -- -- -- 27 -- 30* BUN -- -- -- 30.3* -- -- -- 28.7* -- 23.3* CR -- -- -- 3.40* -- -- -- 2.82* -- 1.98* GLC 165* 115* 122* 106* 132* 199* < > 239* < > 273* PASTOR -- -- -- 8.3* -- -- -- 7.6* -- 7.9* < > = values in this interval not displayed. INRNo lab results found in last 7 days. Attestation: I have reviewed today's relevant vital signs, notes, medications, labs and imaging. David Treviño MD [facility] - Nephrology [phone] * Isabel Akers RN - 12/14/2022 2:44 PM CDT Care Management Follow Up Length of Stay (days): 1 Expected Discharge Date: 12/15/2022 Concerns to be Addressed: care coordination/discharge planning, elevated risk score Anticipated Discharge Disposition: Anticipated Discharge Services: Anticipated Discharge DME: Additional Information: CM consulted for elevated risk score. CM attempted to meet with patient at the bedside but patient was at dialysis. Will continue to follow and attempt to meet with patient when she returns from dialysis. Please let us know if any discharge needs arise. Isabel Akers RN, BSN Inpatient Care Coordination [facility] [phone] * Mitzi Munoz MD - 12/14/2022 10:06 AM CDT Subjective: Ms. Vanegas is a 77-year-old female with multiple medical problem including diabetes mellitus and end-stage renal disease on dialysis. Patient has chronic anemia because of renal disease and anemia of chronic disease. On 12/04/2022, she had peritoneal dialysis catheter removal. Hemoglobin on 12/04/2022 was 8.9. Since dialysis catheter removal, it has been decreasing. On 12/05/2022 it was 7.8. When she presented to emergency room on 12/12/2022, hemoglobin was down to 3.9. CT of abdomen and pelvis revealed a small subcutaneous hematoma in left side of the abdomen at site of tube tract removal. No active extravasation. Patient had multiple other labs done. No deficiency of iron, vitamin B-12 or folate. No evidence ofhemolysis. Patient not having any visible bleeding from any site. Acute worsening of anemia secondary to bleeding from peritoneal catheter site removal causing subcutaneous hematoma. Patient has received 2 units of blood transfusion. Hemoglobin today is 8.2. Patient overall feels better. Fatigue is less. No headache. No dizziness. No chest pain. Last nightshe had slight shortness of breath. Patient received DuoNeb nebulization. She is no longer short ofbreath. No abdominal pain. No nausea or vomiting. Appetite is fairly good. No bleeding from any site. All other review of systems negative. Exam: She is alert oriented x3. Not in any distress. Vitals: Reviewed. Rest of the system not examined. Labs: Reviewed. Assessment: 1. A 77-year-old female with acute on chronic anemia. She has chronic normocytic anemia from renal disease and anemia of chronic disease/inflammation. Acute worsening from bleeding from peritoneal catheter site removal causing subcutaneous hematoma. No clinical suspicion of GI bleed. No evidence of hemolysis. Anemia has improved with transfusion. 2. Localized colonic wall thickening seen on CT scan. Patient denies any abdominal symptoms. 3. Renal failure on dialysis. 4. Diabetes mellitus. 5. Leukocytosis, reactive. Plan: 1. Patient is clinically doing better. CBC reviewed with her. Hemoglobin has improved to 8.2. She was happy to know that. Explained to the patient that she is going to be chronically anemic because of dialysis and diabetes mellitus. She will have CBC checked frequently during dialysis. She will get transfusion support, iron and erythropoietin stimulating agent as per customer accounts advisor. At this time, no further transfusion needed. No other work-up needed for anemia. 2. Patient has mild leukocytosis. It is mainly neutrophilia. This is reactive. She will have CBC checked during dialysis. WBC should improve. Previous WBC on 12/04/[address] 3[address] On CT scan, there is localized colonic wall thickening. She needs outpatient colonoscopy. She will talk to her PCP. 4. She and her son had few questions which were all answered. Hematology/oncology will sign off. Please call us with any questions. Case discussed with Dr. Yanez. Total time spent 25 minutes. Time spent in today's visit, review of chart/investigations today, communicationg with other providers and documentation today. * Nidia Yanez, - 12/14/2022 8:[address] [facility] Medicine Progress Note - Hospitalist Service Date of Admission: 12/12/2022 Assessment & Plan Summary: Maricruz Vanegas is a 77 year old female with PMHx of ESRD, T2DM, HTN, chronic pain, tobacco use disorder, COPD, recent COVID infection, recent hospitalization for Corynebacterium peritonitis that required removal of PD catheter and initiation of HD, who was admitted on 12/12/2022 with generalized weakness in setting of acute symptomatic anemia. Acute on chronic symptomatic anemia Presented with hemoglobin of 4. Baseline approximately 8-10 from last week. Did have a small hematoma at the site of the prior PD catheter. Work-up negative for evidence of hemolysis. EGD today showed nonobstructing nonbleeding duodenal ulcers with no stigmata of bleeding. Heme-onc consulted and feels anemia likely 2/2 hematoma at previous PD site, no further workup needed. Unclear exact source of bleed, but Hgb stabilized after transfusion of 2U pRBCs. -GI consulted - PPI twice daily -H. pylori stool test, treat if positive - Consider repeat EGD in 2 months to document healing if desired ESRD on HD Dialyzes MWF via L AVF. Previously on PD, but this was stopped 2/2 peritonitis and patient's request. Today patient voiced desire to switch to home dialysis again. -Nephrology consult - HD today Recent peritonitis 2/2 corynebacterium stratum Plan for approximately 2 weeks of outpatient IV Vanco. - Continue vancomycin while inpatient Colonic wall thickening Noted on CT. - Outpatient colonoscopy Type [address] SCAN TECHNICIAN. - MDSSI Hypertension Holding CT SCAN TECHNICIAN amlodipine, furosemide, labetalol, clonidine 2/2 acute anemia Diet: NPO per Anesthesia Guidelines for Procedure/Surgery Except for: Meds DVT Prophylaxis: Pneumatic Compression Devices Jones Catheter: Not present Lines: None Cardiac Monitoring: ACTIVE order. Indication: Acute decompensated heart failure (48 hours) Code Status: Full Code Clinically Significant Risk Factors # Hypokalemia: Lowest K = 3.2 mmol/L in last 2 days, will replace as needed # Hypoalbuminemia: Lowest albumin = 2.5 g/dL at 12/12/2022 9:49 PM, will monitor as appropriate # Cachexia: Estimated body mass index is 17.54 kg/m?? as calculated from the following: Height as of this encounter: 1.549 m (5' 1). Weight as of this encounter: 42.1 kg (92 lb 13 oz)., PRESENT ON ADMISSION # Financial/Environmental Concerns: Disposition Plan Expected Discharge Date: 12/15/2022 Nidia Yanez DO Hospitalist Service [facility] Securely message with [employer] (more info) Text page via [facility] Paging/Directory Interval History No acute overnight events. Tired today with some generalized pain. No acute concerns. Physical Exam Vital Signs: Temp: 98 ??F (36.7 ??C) Temp src: Temporal BP: (!) 154/61 Pulse: 74 Resp: 20 SpO2: 100% O2 Device: Nasal cannula Oxygen Delivery: 2 LPM Weight: 92 lbs 13.02 oz Constitutional: Awake, alert, no distress, and cooperative Cardiovascular: Regular rate and rhythm, normal S1 and S2, no S3 or S4, and no murmur noted Respiratory: No increased work of breathing, good air exchange, clear to auscultation bilaterally, no crackles or wheezing Gastrointestinal: Abdomen soft, non-tender, non-distended. BS normal. No masses, organomegaly Medical Decision Making 45 MINUTES SPENT BY ME on the date of service doing chart review, history, exam, documentation & further activities per the note. Data I have personally reviewed the following data over the past 24 hrs: 19.4 (H) \ 8.2 (L) / 280 137 98 30.3 (H) / 165 (H) 3.3 (L) 28 3.40 (H) \ ALT: N/A AST: N/A AP: N/A TBILI: N/A ALB: 2.9 (L) TOT PROTEIN: N/A LIPASE: N/A * Fabio Ma RN - 12/14/2022 5:25 AM CDT Pt A/O,forgetful,O2 -2L,up with assist of two walker and gait. Npo since midnight,Tolerating regular diet, passing gas, pain controlled with prn Tylenol.Blood sugar monitoring,Hgb-5.9 recheck in the morning. Plan for egd- today at 1120am. Tele ,monitoring.Will continue to monitor. * Nidia Yanez DO - 12/13/2022 7:46 AM CDT Brief medical update, please see H&P from this morning for further details. Summary: Maricruz Vanegas is a 77 year old female with PMHx of ESRD, T2DM, HTN, chronic pain, tobacco use disorder, COPD, recent COVID infection, recent hospitalization for Corynebacterium peritonitis that required removal of PD catheter and initiation of HD, who was admitted on 12/12/2022 with generalized weakness in setting of acute symptomatic anemia. Acute on chronic symptomatic anemia Unclear cause. Occult negative. PBS unrevealing for source, no evidence of hemolysis; further supported by normal bilirubin. B12/folate normal. Elevated retic count. TSH mildly elevated, T4 normal. Hematology consult ordered. Unfortunately, patient has difficult to match blood so blood products are being shipped from another site. Patient remains HDS. Ongoing fatigue, but no other new symptoms. Continue to monitor Hgb andtransfuse 2U when blood arrives. May require 3rd unit, but will decide based on her response. GI evaluated, tentative plan for EGD when Hgb improved. ESRD Not volume overloaded on exam. MWF HD, ran yesterday without complication. Nidia Yanez DO documented in this encounter H&P Notes * Arsenio Flores DO - 12/13/2022 2:[address] [facility] Hospitalist H&P Name: Maricruz Vanegas Date of : 1945 Age: [age] year old Date of admission: 12/12/2022 Primary care provider: Man Adan Assessment and Plan: Maricruz Vanegas is a 77 year old female with a history of end-stage renal disease, type 2 diabetes, hypertension, chronic pain, tobacco use disorder, COPD, recent COVID infection and recent hospitalization for peritonitis secondary to corynebacterium requiring removal of PD catheter and initiationon to hemodialysis via a left upper extremity AV fistula who presents with generalized weakness with work-up notable for acute symptomatic anemia. Problem list: Acute on chronic symptomatic anemia: Recent baseline hemoglobin appears to be approximately 8-10 based on her hospitalization last week. Currently hemoglobin is about 4.0. This is suggestive of a bleeding or hemolytic process given the acute drop. She does have dark black stools but is occult negative. No active bleeding is seen on the skin and no evident hematomas in the extremities although there is a small palpable hematoma at the site of the prior peritoneal dialysis catheter which was alsovisualized on CT but there is no active extravasation into the peritoneal cavity and no active extravasation into the GI tract. She also tells me that her dialysis nurse has noted some bloody output f rom that site. She has been typed and screened and 3 units will be prepared but we will administer only 2 units for now and consider a third pending her response as we do not want to volume overload her. She has antibodies so the match is taking some time. We will order every 6 hour hemoglobin levels. I will check hemolysis labs, TSH, B12/folate, and a blood smear. Iron studies are concerning foriron deficiency anemia. Possible GI bleeding: Given her dark stools and acute anemia I think we need to treat this as though as there is a possible upper GI bleed. We will start Protonix 40 mg IV twice daily and place the patient n.p.o. I like to request GI consultation. I do not see any recent EGD or colonoscopies. End-stage renal disease: Was previously on peritoneal dialysis but the PD catheter was removed given corynebacterium peritonitis and an she was restarted on hemodialysis using a previously placed left upper extremity AV fistula. She is on her routine schedule which I believe is every Saturday, Saturday, and Saturday. I will request nephrology consultation to facilitate dialysis arrangements. Recent peritonitis secondary to corynebacterium stratum: Plan was for approximately 2 weeks of outpatient IV vancomycin. We will continue this antibiotic for now. Type 2 diabetes mellitus: We will hold her glipizide given n.p.o. status. Start a medium sliding scale insulin. Hypertension: We will hold her prior to admission amlodipine, furosemide, labetalol, and clonidine given n.p.o. status and acute anemia with possible bleeding. Clinically Significant Risk Factors Present on Admission # Hypokalemia: Lowest K = 3.2 mmol/L in last 2 days, will replace as needed # Hypoalbuminemia: Lowest albumin = 2.5 g/dL at 12/12/2022 9:49 PM, will monitor as appropriate # Drug Induced Platelet Defect: home medication list includes an antiplatelet medication # Hypertension: Home medication list includes antihypertensive(s) # Financial/Environmental Concerns: Code status: Full. Admit to inpatient status. Prophylaxis: PCD's. Disposition: Home in 2 to 3 days. 80 MINUTES SPENT BY ME on the date of service doing chart review, history, exam, documentation & further activities per the note. Chief Complaint: Generalized weakness. History of Present Illness: Maricruz Vanegas is a 77 year old female who presents with generalized weakness. History was obtained from my discussion with the patient at the bedside. I also discussed the case with the ED provider. The electronic medical record was also reviewed. The patient had a recent hospitalization at this facility. She was found to have peritonitis secondary to corynebacterium in the context of ESRD on peritoneal dialysis. Her PD catheter was removed and she was restarted on her hemodialysis as she already had a functional left upper extremity AV fistula. She was treated with vancomycin and was discharged to have this administered during dialysis. For the past 2 to 3 days she noticed worsening generalized weakness and fatigue. She also notes some lightheadedness and dizziness. She indicates she has a cough but actually thinks her breathing hasimproved since recovery from her recent COVID infection. She reports essentially black stools but no nausea, vomiting, diarrhea or hematochezia. Ultimately due to the symptoms she comes to the hospital for evaluation. Past Medical History: Past Medical History: Diagnosis Date Diabetes mellitus, type 2 (H) ESRD (end stage renal disease) on dialysis (H) Past Surgical History: Past Surgical History: Procedure Laterality Date PERITONEAL CATHETER INSERTION REMOVE CATHETER PERITONEAL N/A 12/04/2022 Procedure: REMOVAL PERITONEAL DIALYSIS CATHETER; Surgeon: Rajan Hernandez MD; Location: OR Social History: Social History Tobacco Use Smoking status: Not on file Smokeless tobacco: Not on file Substance Use Topics Alcohol use: Not on file Family History: The family history was fully reviewed and non-contributory in this case. Allergies: Allergies Allergen Reactions Cats Shortness Of Breath Atorvastatin Hives, Muscle [...] Lisinopril-Hydrochlorothiazide Rash Niacin Rash and Itching itch [place] Rash Pioglitazone Rash Itchy rash Medications: Prior to Admission medications Medication Sig Last Dose Taking? Auth Provider Mcfp End Date albuterol (PROVENTIL) (2.5 MG/3ML) 0.083% neb solution Take 2.5 mg by nebulization every 4 hours asneeded for shortness of breath Unknown, Entered By History Yes amLODIPine (NORVASC) 10 MG tablet Take 10 mg by mouth 2 times daily Unknown, Entered By History Yes aspirin 81 MG EC tablet Take 81 mg by mouth daily Unknown, Entered By History calcium acetate (PHOSLO) 667 MG CAPS capsule Take 667 mg by mouth 3 times daily (with meals) Unknown, Entered By History carboxymethylcellulose PF (REFRESH PLUS) 0.5 % ophthalmic solution Place 1 drop Into the left eye 4times daily Unknown, Entered By History cetirizine (ZYRTEC) 10 MG tablet Take 10 mg by mouth daily Unknown, Entered By History cloNIDine (CATAPRES) 0.1 MG tablet Take 2 tablets (0.2 mg) by mouth every morning and take 3 tablets by mouth (0.3 mg) every evening Unknown, Entered By History Yes erythromycin (ROMYCIN) 5 MG/GM ophthalmic ointment Place Into the left eye 4 times daily Unknown, Entered By History furosemide (LASIX) 40 MG tablet Take 40 mg by mouth daily Unknown, Entered By History Yes glipiZIDE (GLUCOTROL XL) 10 MG 24 hr tablet Take 20 mg by mouth daily (before supper) Unknown, Entered By History Yes ipratropium - albuterol 0.5 mg/2.5 mg/3 mL (DUONEB) 0.5-2.5 (3) MG/3ML neb solution Inhale 3 mLs into the lungs every 6 hours as needed for shortness of breath Unknown, Entered By History Yes labetalol (NORMODYNE) 300 MG tablet Take 300 mg by mouth 3 times daily Unknown, Entered By History Yes [id number] (MAXITROL) 3.5-90636-3.[address] 0.25 inches Into the left eye 4 times daily Unknown, Entered By History nicotine (NICODERM CQ) 7 MG/24HR [address] 1 patch onto the skin every 24 hours Unknown, Entered By History oxyCODONE (ROXICODONE) 5 MG tablet Take 10 mg by mouth at bedtime Unknown, Entered By History polyethylene glycol (MIRALAX) 17 g packet Take 1 packet by mouth every 3 days Unknown, Entered By History repaglinide (PRANDIN) 1 MG tablet Take 1 tablet by mouth 3 times daily (before meals) Unknown, Entered By History Yes senna (SENOKOT) 8.6 MG tablet Take 1 tablet by mouth every 3 days Unknown, Entered By History sorbitol 70 % SOLN solution Take 30 mLs by mouth every 3 days Unknown, Entered By History triamcinolone (KENALOG) 0.1 % external cream Apply topically daily as needed for irritation Unknown, Entered By History Review of Systems: A Comprehensive greater than 10 system review of systems was carried out. Pertinent positives and negatives are noted above. Otherwise negative for contributory information. Physical Exam: Blood pressure 136/62, pulse 73, temperature 97.9 ??F (36.6 ??C), temperature source Oral, resp. rate 17, SpO2 93%. Wt Readings from Last 1 Encounters: 12/06/22 44.6 kg (98 lb 4.8 oz) Exam: GENERAL: No apparent distress. Awake, alert, and fully oriented. HEENT: Normocephalic, atraumatic. Extraocular movements intact. CARDIOVASCULAR: Regular rate and rhythm without murmurs or rubs. No S3. PULMONARY: Clear to auscultation bilaterally. ABDOMINAL: Soft, non-tender, non-distended. Bowel sounds normoactive. EXTREMITIES: No cyanosis or clubbing. No appreciable edema. NEUROLOGICAL: CN 2-12 grossly intact, no focal neurological deficits. DERMATOLOGICAL: No rash, ulcer, bruising, nor jaundice. Data: EKG: Personally reviewed. Laboratory: Recent Labs Lab 12/12/22 2302 12/12/229 WBC -- 18.4* HGB 4.2* 3.9* HCT -- 10.7* MCV -- 104* PLT -- 222 Recent Labs Lab 12/12/22 2149 12/12/22 2139 12/06/22 1204 12/06/22 0606 NA 137 -- -- 126* POTASSIUM 3.2* -- -- 5.6* CHLORIDE 97* -- -- 93* CO2 30* -- -- 25 ANIONGAP 10 -- -- 8 GLC 273* 245* 96 157* BUN 23.3* -- -- 36.8* CR 1.98* -- -- 4.20* GFRESTIMATED 26* -- -- 10* PASTOR 7.9* -- -- 8.4* No results for input(s): CULT in the last 168 hours. Imaging: Recent Results (from the past 24 hour(s)) CTA Abdomen Pelvis with Contrast Narrative EXAM: CTA ABDOMEN PELVIS WITH CONTRAST LOCATION: [facility] DATE: 12/13/2022 INDICATION: acute on chronic anemia, melena, please do GI bleed protocol. ESRD, on hemodialysis, Recent removal of peritoneal dialysis catheter COMPARISON: 11/28/2022 TECHNIQUE: CT angiogram abdomen pelvis during arterial phase of injection of IV contrast. 2D and 3DMIP reconstructions were performed by the manufacturing engineering technologist. Dose reduction techniques were used. [...] remainder of the tube track. There is nosuggestion for active extravasation into this subcutaneous hematoma nor the tract. Abdominal wall musculature appears normal. Impression IMPRESSION: 1. There is a small subcutaneous [...] to segmental colitis. There is no definitive hyperemiainvolving this segment and no evidence for active extravasation. XR Chest 2 Views Narrative EXAM: XR CHEST 2 VIEWS LOCATION: [facility] DATE: 12/13/2022 INDICATION: cough COMPARISON: 11/29/2022 Impression IMPRESSION: Heart size within normal limits. Calcified aortic arch. Mild streaky left basilar atelectasis or infiltrate. The right lung is clear. No pneumothorax. Arsenio Flores DO [facility] [place] [address] 12/13/2022 documented in this encounter Consult Notes * Leslie Desai [facility] - 12/15/2022 10:57 AM CDTAssociated Order(s): CARE MANAGEMENT / SOCIAL WORK IP CONSULT Care Management Initial Consult General Information Assessment completed with: Patient, Patient Type of CM/SW Visit: Initial Assessment Primary Care Provider verified and updated as needed: No Readmission within the last 30 days: Reason for Consult: discharge planning, care coordination/care conference Advance Care Planning: Communication Assessment Patient's communication style: spoken language (Ecuadorean or Bilingual) Hearing Difficulty or Deaf: no Wear Glasses or Blind: yes Cognitive Cognitive/Neuro/Behavioral: WDL Living Environment: People in home: child(danielle), adult, sibling(s) Current living Arrangements: house Able to return to prior arrangements: yes Family/Social Support: Care provided by: self Provides care for: child(danielle) Children, Sibling(s) Description of Support System: Supportive, Involved Support Assessment: Adequate family and caregiver support, Patient communicates needs well met Current Resources: Patient receiving home care services: Community Resources: Equipment currently used at home: none Supplies currently used at home: Employment/Financial: Employment Status: Financial Concerns: none Referral to Financial Worker: No Does the patient's insurance plan have a 3 day qualifying hospital stay waiver? No Lifestyle & Psychosocial Needs: Social Determinants of Health Food Insecurity: Not on file Depression: Not on file Housing Stability: Not on file Tobacco Use: Not on file Financial Resource Strain: Not on file Alcohol Use: Not on file Transportation Needs: Not on file Physical Activity: Not on file Interpersonal Safety: Not on file Stress: Not on file Social Connections: Not on file Functional Status: Prior to admission patient needed assistance: Dependent ADLs:: Independent, Ambulation-no assistive device Dependent IADLs:: Independent Mental Health Status: Mental Health Status: No Current Concerns Chemical Dependency Status: Chemical Dependency Status: No Current Concerns Care Management Discharge Note Discharge Date: 12/16/2022 Discharge Disposition: Home Discharge Services: None Discharge DME: None Discharge Transportation: public transportation (Cab) Private pay costs discussed: Not applicable Does the patient's insurance plan have a 3 day qualifying hospital stay waiver? No PAS Confirmation Code: Patient/family educated on Medicare website which has current facility and service quality ratings: Education Provided on the Discharge Plan: Persons Notified of Discharge Plans: Patient, son Patient/Family in Agreement with the Plan: yes Handoff Referral Completed: No Additional Information: Patient has a high URR of 21%. Patient lives at home with her 2 sons and sister. Patient has been independent in all cares. She helps cook, clean, transport, and set up appointments for her family. She is not on home O2 and does not want it as she is often on the go. Patient does not use any assistive devices at home. Patient requests a cab ride home. Address on chart is correct. Will need to order taxi on discharge. Per chart review, sons do not have a commercial front load driver's license and patient does not drive. She typically uses transit for rides. JUAN Gaviria, [facility] Solar Sales Rep Please contact the SW on the floor in which the patient is staying for any questions or concerns * Isabel Akers RN - 12/14/2022 2:50 PM CDTAssociated Order(s): CARE MANAGEMENT / SOCIAL WORK IP CONSULT See 12/14 CM note. * Lluvia Medley RD - 12/14/2022 2:12 PM CDT CLINICAL NUTRITION SERVICES - ASSESSMENT NOTE Recommendations: - Diet advancement per MD teams. - Likely would benefit from oral supplement offerings + renal MVI w/ diet advancement given BMI. Will follow-up to discuss w/ patient pending RD availability and LOS. Malnutrition Diagnosis: Unable to determine at this time REASON FOR ASSESSMENT Maricrzu Vanegas is a 77 year old female seen by Registered Dietitian for Malnutrition Screening Tool (MST). PMH of: ESRD, DMII, chronic pain, COPD, recent COVID, peritonitis requiring PD catheter removal, now on HD. Admit 03/15: Anemia, concern for GI bleed, hematoma at PD removal site. NUTRITION HISTORY - Information obtained from chart as patient in procedure. - Allergies: Fish oil. CURRENT NUTRITION ORDERS Diet Order: Does not currently have a diet order. Current Intake/Tolerance: Limited timeframe of admission. ANTHROPOMETRICS Height: 5' 1 Weight: 92 lbs 13.02 oz Body mass index is 17.54 kg/m??. Weight Status: Underweight BMI <18.5 Weight History: Wt Readings from Last 10 Encounters: 12/13/22 42.1 kg (92 lb 13 oz) 12/06/22 44.6 kg (98 lb 4.8 oz) 11/24/22 42 kg (92 lb 9.5 oz) - No wt hx on file (care everywhere reviewed). LABS: Reviewed: noted K and phosphorus low this AM. MEDICATIONS: Reviewed. GI: Stooling patterns noted. SKIN: No current documentation of PI. ASSESSED NUTRITION NEEDS PER APPROVED PRACTICE GUIDELINES: Dosing Weight 42 kg Estimated Energy Needs: 30-35+ Kcal/Kg Justification: repletion Estimated Protein Needs: >/=1.5 g pro/Kg Justification: Repletion, dialysis, and preservation of lean body mass Estimated Fluid Needs: per MD NUTRITION DIAGNOSIS: Inadequate oral intake related to diet restrictions w/ GI bleed as evidenced by NPO. NUTRITION INTERVENTIONS Recommendations / Nutrition Prescription See above. Implementation Nutrition education: Not appropriate at this time due to patient condition. Nutrition goals: Diet advancement w/in 24-48 hrs. MONITORING AND EVALUATION: Progress towards goals will be monitored and evaluated per protocol and Practice Guidelines Lluvia Medley RDN, LD Clinical Dietitian 3rd floor/ICU: [phone] All other floors: [phone] Weekend/holiday: [phone] Office: [phone] * David Treviño MD - 12/13/2022 5:50 PM CDTAssociated Order(s): NEPHROLOGY IP CONSULT [facility] RENAL CONSULTATION NOTE REFERRING MD: Dr. Flores REASON FOR CONSULTATION: ESKD, severe anemia DATE OF CONSULTATION: 12/13/22 SHORTHAND WHITAKER FOR MY NOTES: c = with, s = without, p = after, a = before, x = except, asx = asymptomatic, tx = transplant or treatment, sx = symptoms or symptomatic, cx = canceled or culture, rxn = reaction, yday = yesterday, nl = normal, abx = antibiotics, fxn = function, dx = diagnosis, dz = disease, m/h = melena/hematochezia, c/d/l/robles = cramping/dizziness/lightheadedness/headache, d/c = discharge or diarrhea/constipation, f/c/n/v = fevers/chills/nausea/vomiting, cp/sob = chest pain/shortnessof breath, tbv = total body volume, rxn = reaction, tdc = tunneled dialysis catheter, mine captain = prior to admission, hd = hemodialysis, pd = peritoneal dialysis, hhd = home hemodialysis, edw = estimated dry wt HPI: Maricruz Vanegas is a 77 year old female c ESKD 2 DM2 who dialyses MWF via a LAF at the [facility] under the care of Dr. Mena and was admitted on 12/12/2022 c weakness, d/l andfound to have severe anemia. Notes from Drs. Tapia (ER), Mark (Hosp) were reviewed. Case d/w Dr. Munoz (H/O). Pt has been feeling weakness, d/l and fatigue for the past couple of days CT SCAN TECHNICIAN. She also noted dark stools, but didn't see any blood. She has a cough but her breathing is ok and she denies cp. No f/c/n/v/itching. She has been at dialysis and didn't have any major issues c her run yday. Of note, the pt was admitted to [facility] a couple of wks ago c COVID pneumonia. She was hosp for 2d and then was subsequently admitted to [facility] for 8d c peritonitis. During this admission her PD catheter was removed and she was started on HD via a LAF. Reviewing historical labs, her hb was ~12 when she was admitted to [facility]. It has steadily drifted down and when she was dc'd from [facility] it was down to the high 7s. When she was admitted yday it was 3.9. ROS: A complete review of systems was performed and is negative x as noted above. PMH: Past Medical History: Diagnosis Date Diabetes mellitus, type 2 (H) ESRD (end stage renal disease) on dialysis (H) PSH: Past Surgical History: Procedure Laterality Date PERITONEAL CATHETER INSERTION REMOVE CATHETER PERITONEAL N/A 12/04/2022 Procedure: REMOVAL PERITONEAL DIALYSIS CATHETER; Surgeon: Rajan Hernandez MD; Location: OR MEDICATIONS: insulin aspart 1-6 Units Subcutaneous TID w/meals pantoprazole 40 mg Intravenous BID ALLERGIES: Allergies as of 12/12/2022 - Reviewed 12/12/2022 Allergen Reaction Noted Cats Shortness Of Breath 04/06/2004 Atorvastatin Hives, [...] Rash 11/24/2022 Niacin Rash and Itching 05/13/2006 [place] Rash 05/16/2010 Pioglitazone Rash 10/11/2020 FH: No family history on file. R/NC SH: Social History Socioeconomic History Marital status: [...] Stability: Not on file PHYSICAL EXAM: BP 134/42 (BP Location: Right arm) Pulse 77 Temp 97.9 ??F (36.6 ??C) (Temporal) Resp 16 Ht 1.549 m (5' 1) Wt 42.1 kg (92 lb 13 oz) SpO2 90% BMI 17.54 kg/m?? GENERAL: awake, alert, NAD HEENT: normocephalic, no gross abnormalities CV: RRR c 2/6 m, nl S1/S2; no significant ble edema RESP: CTA B c good efforts GI: L abd - hematoma, tender SKIN: no suspicious lesions or rashes, dry to touch NEURO: strength normal and symmetric PSYCH: mood good, affect appropriate LINES: + PIVs OTHER: Access - LAF c good thrill/bruit LABS: CBC RESULTS: Recent Labs Lab 12/13/22 1056 12/13/22 0518 12/12/22 2302 12/12/222148 WBC -- 17.3* -- 18.4* RBC -- 1.02* -- 1.03* HGB 3.9* 3.8* 4.2* 3.9* HCT -- 10.6* -- 10.7* PLT -- 237 -- 222 BMP RESULTS: Recent Labs Lab 12/13/22 1233 12/13/22 1059 12/13/22 0607 12/13/22 0216 12/12/22 2149 12/12/22 2139 NA 137 -- -- -- 137 -- POTASSIUM 3.5 -- -- -- 3.2* -- CHLORIDE 96* -- -- -- 97* -- CO2 27 -- -- -- 30* -- BUN 28.7* -- -- -- 23.3* -- CR 2.82* -- -- -- 1.98* -- GLC 239* 184* 118* 169* 273* 245* PASTOR 7.6* -- -- -- 7.9* -- INRNo lab results found in last 7 days. DIAGNOSTICS: Personally reviewed: CXR - clear; abd CT A/P: Maricruz Vanegas is a 77 year old female c ESKD who has acute, severe anemia. 1. ESKD. Pt is on a MWF schedule and is due for HD tmrw. Chemistries and volume are ok. A. HD tmrw. Orders placed. 2. Severe anemia. Pt's hb is in the 3s, which explains her sx. The hb has been steadily declining since having COVID and peritonitis. She has a hematoma at the PD removal site, which is likely contributing. She also has dark stools, so GIB must be strongly considered. Unclear if she was receiving heparin at the dialysis ctr bc they are closed today. Peripheral smear was unremarkable and hapto washigh so hemolysis is not likely. Retic was high. H/O and GI are involved. A. Transfuse blood to hb > 7. B. Follow clinically. C. EGD when hb is better, per GI. 3. Leucocytosis. Pt had peritonitis recently and is on abx. A. Continue abx. B. Follow clinically. 4. FEN. Electrolytes are ok. A. Dialysis diet. Thank you for this consultation. We will follow c you. Please call if any questions. Attestation: I have reviewed today's relevant vital signs, notes, medications, labs and imaging. David Treviño MD [facility] - Nephrology [phone] * Mitzi Munoz MD - 12/13/2022 12:45 PM CDT This consult has been requested by Silvia Burger PA-C for anemia. Ms. Vanegas is a 77-year-old female with multiple medical problem including diabetes mellitus and end-stage renal disease on dialysis. Patient has chronic anemia because of renal disease and anemia of chronic disease. On 12/04/2022, hemoglobin was 8.9. Patient had peritoneal dialysis catheter removal on 12/04/2022. On 12/05/2022, hemoglobin was 7.8. Patient was brought to emergency room on 12/12/2022 because of worsening generalized weakness for 2to 3 days. She was also having some lightheadedness. Patient also felt that she would pass out. Shenever lost consciousness. No chest pain or shortness of breath. No fever or chills. She had multiple investigations done. -WBC of 18.4, hemoglobin of 3.9 and platelet of 222. Reticulocyte of 13.8%. -CMP revealed multiple abnormalities. Normal AST, ALT and bilirubin. -Normal iron. -Elevated ferritin. -Normal vitamin B12. -Normal folate. -Mild elevated LDH of 290. -Mild elevated TSH with normal free T4. -Elevated haptoglobin. -Peripheral blood smear review does not reveal any schistocytes. CT angiogram of abdomen and pelvis was done: 1. There is a small subcutaneous hematoma [...] to segmental colitis. There is no definitive hyperemiainvolving this segment and no evidence for active extravasation. Patient denies bleeding from any site. No blood in the stool. No black stool. No bleeding from ear,nose or throat. No bleeding from peritoneal catheter removal site. She does have a small hematoma there. Review of systems: See has generalized weakness. No headache. Some lightheadedness. No chest pain. No shortness of breath. No abdominal pain. No nausea or vomiting. Appetite is good. No bowel complaints. No diarrhea. All other review of system is negative. Allergies: Reviewed. Medications: Reviewed. Past medical history: -Diabetes mellitus. -End-stage renal disease on dialysis. - x3. Exam: She is alert oriented x3. Not in distress. Vitals: Reviewed. Rest of the system is not examined. Labs: Reviewed. Assessment: 1. A 77-year-old female with severe anemia. Anemia is multifactorial. She has chronic normocytic anemia from renal disease and anemia of chronic disease/inflammation. Acute worsening is likely from some bleeding when she had peritoneal catheter removed. No clinical suspicion of GI bleed. No evidence of hemolysis. 2. Localized colonic wall thickening seen on CT scan. Patient denies any abdominal symptoms. 3. Renal failure on dialysis. 4. Diabetes mellitus. Recommendation: -Transfuse PRBC to get hemoglobin above 7.0. -Colonoscopy as outpatient. Discussion: 1. I had a long discussion the patient and her son. Labs were reviewed with them. Discussed regarding anemia. Patient has chronic normocytic anemia because of renal disease and anemia of chronic disease. Now she has acute worsening of anemia. Acute worsening of anemia is due to bleeding when she had her peritoneal catheter removed. On CT scan there is subcutaneous hematoma. Patient denies seeing bleeding from any site. Not suspecting hemolysis as haptoglobin is elevated. 2. Discussed regarding management of anemia. She should be transfused to keep hemoglobin above 7.0. 3. On CT scan, there is some colonic wall thickening. She should get outpatient colonoscopy. 4. Explained to the patient that her CBC needs to be monitored. Patient is on dialysis. She will have it monitored through her customer accounts advisor. 5. Patient and her son had few questions which were all answered. Oncology will continue to follow.Case discussed with Dr. David Treviño from nephrology. Thanks for the consult. Total time spent 60 minutes. Time spent in today's visit, review of chart/investigations today, communicating with other providers and documentation today. * Silvia Burger PA-C - 12/13/2022 9:10 AM CDTAssociated Order(s): GASTROENTEROLOGY IP CONSULT Images from the original note were not included. GASTROENTEROLOGY CONSULTATION Maricruz Vanegas [address] [place] [id number] 77 year old female Admission Date/Time: 12/12/2022 Primary Care Provider: Man Adan We were asked to see the patient in consultation by Dr. Flores for evaluation of anemia. CC: weakness HPI: Maricruz Vanegas is a 77 year old female with past medical history significant for end-stage renal disease, COPD, type 2 diabetes, hypertension, recent COVID infection, chronic pain, chronic anemia,recent hospitalization for peritonitis secondary enteric corynebacterium requiring removal of PDcatheter and initiation of hemodialysis admitted December 12 with symptoms of generalized weakness and acute on chronic anemia. Patient reports a couple days of generalized weakness and fatigue. She reports a chronic history ofconstipation and chronic dark black stools for many years. This is unchanged prior to admission. Her last bowel movement was yesterday and noted to be formed and reportedly black by patient. She denies any abdominal pain, nausea, vomiting, hematemesis, diarrhea, hematochezia. She is on a baby aspirin daily. She denies NSAID use. She smokes a few cigarettes per day. She denies alcohol use. She denies any oral iron supplements. She has a palpable hematoma at her left abdomen from previous peritoneal catheter. Patient has a history of chronic anemia with a baseline hemoglobin in the 8-10 range. Labs on admission show a hemoglobin of 3.9, previously 7.8 on 12/05, elevated MCV of 104, normal platelets at 222, elevated white blood cell count 18.4, elevated percent reticulocytes at 13.8, CMP with low potassium at 3.2, elevated creatinine 1.98 in the setting of chronic kidney disease, BUN elevated 23.3, low albumin 2.5, total bilirubin less than 0.2, normal LFTs. Iron studies showed normal serum iron of 129, low TIBC 170, elevated iron saturation at 76%, elevated lactate dehydrogenase 290,haptoglobin is pending. Ferritin significantly elevated at 6492. Vitamin B12 normal 1105, folate level has returned today and is normal at 10.3. TSH elevated at 5.18, with normal free T4 1.14. Blood cultures are pending. Fecal Hemoccult negative. CTA abdomen and pelvis with IV contrast showed a small subcutaneous hematoma in the left abdomen without any active extravasation at the site or within the peritoneal cavity, no evidence of acute GI bleeding, possible localized colonic wall thickening involving the hepatic flexure and proximal portion of the transverse colon possibly related to segmental colitis. No definitive hyperemia involvingthe segment. Of note, patient has not been able to get any blood products due to antibodies. Her HGB this morning is stable at 3.8. No stools overnight or this morning. Hemodynamically stable without fevers. Requiring 2 L O2 by nasal cannula. Last colonoscopy 06/[address] Miguel Dick for screening with 1 small ascending colon adenoma, diverticulosis, diffuse melanosis coli. No prior EGD. PAST MEDICAL HISTORY: Patient Active Problem List Diagnosis Date Noted Anemia 12/13/2022 Priority: Medium ESRD (end stage renal disease) on dialysis (H) 12/13/2022 Priority: Medium Acute on chronic anemia 12/13/2022 Priority: Medium SOB (shortness of breath) 11/29/2022 Priority: Medium COVID 11/24/2022 Priority: Medium ROS: A comprehensive ten point review of systems was negative aside from those in mentioned in the HPI. MEDICATIONS: Prior to Admission medications Medication Sig Start Date End Date Taking? Authorizing Provider albuterol (PROVENTIL) (2.5 MG/3ML) 0.083% neb solution Take 2.5 mg by nebulization every 4 hours asneeded for shortness of breath 09/10/22 Unknown, Entered By History amLODIPine (NORVASC) 10 MG tablet Take 10 mg by mouth 2 times daily 11/14/22 Unknown, Entered By History aspirin 81 MG EC tablet Take 81 mg by mouth daily Unknown, Entered By History calcium acetate (PHOSLO) 667 MG CAPS capsule Take 667 mg by mouth 3 times daily (with meals) Unknown, Entered By History carboxymethylcellulose PF (REFRESH PLUS) 0.5 % ophthalmic solution Place 1 drop Into the left eye 4times daily Unknown, Entered By History cetirizine (ZYRTEC) 10 MG tablet Take 10 mg by mouth daily Unknown, Entered By History cloNIDine (CATAPRES) 0.1 MG tablet Take 2 tablets (0.2 mg) by mouth every morning and take 3 tablets by mouth (0.3 mg) every evening 06/14/21 Unknown, Entered By History erythromycin (ROMYCIN) 5 MG/GM ophthalmic ointment Place Into the left eye 4 times daily 09/25/22 Unknown, Entered By History furosemide (LASIX) 40 MG tablet Take 40 mg by mouth daily Unknown, Entered By History glipiZIDE (GLUCOTROL XL) 10 MG 24 hr tablet Take 20 mg by mouth daily (before supper) 11/14/22 Unknown, Entered By History ipratropium - albuterol 0.5 mg/2.5 mg/3 mL (DUONEB) 0.5-2.5 (3) MG/3ML neb solution Inhale 3 mLs into the lungs every 6 hours as needed for shortness of breath 12/13/20 Unknown, Entered By History labetalol (NORMODYNE) 300 MG tablet Take 300 mg by mouth 3 times daily 03/01/22 Unknown, Entered By History ceonxbwd-ynrwnshrg-wcnBGWLYoxqpk (MAXITROL) 3.5-43301-7.[address] 0.25 inches Into the left eye 4 times daily 09/24/22 Unknown, Entered By History nicotine (NICODERM CQ) 7 MG/24HR [address] 1 patch onto the skin every 24 hours 11/24/21 Unknown, Entered By History oxyCODONE (ROXICODONE) 5 MG tablet Take 10 mg by mouth at bedtime 04/17/21 Unknown, Entered By History polyethylene glycol (MIRALAX) 17 g packet Take 1 packet by mouth every 3 days Unknown, Entered By History repaglinide (PRANDIN) 1 MG tablet Take 1 tablet by mouth 3 times daily (before meals) 12/13/20 Unknown, Entered By History senna (SENOKOT) 8.6 MG tablet Take 1 tablet by mouth every 3 days 10/13/22 Unknown, Entered By History sorbitol 70 % SOLN solution Take 30 mLs by mouth every 3 days 01/09/22 Unknown, Entered By History triamcinolone (KENALOG) 0.1 % external cream Apply topically daily as needed for irritation 01/24/21 Unknown, Entered By History ALLERGIES: Allergies Allergen Reactions Cats Shortness Of Breath Atorvastatin Hives, Muscle [...] Lisinopril-Hydrochlorothiazide Rash Niacin Rash and Itching itch [place] Rash Pioglitazone Rash Itchy rash SOCIAL HISTORY: FAMILY HISTORY: No family history on file. PHYSICAL EXAM: BP 128/43 (BP Location: Right arm) Pulse 71 Temp 97.9 ??F (36.6 ??C) (Temporal) Resp 18 Ht 1.549 m (5' 1) Wt 42.1 kg (92 lb 13 oz) SpO2 100% BMI 17.54 kg/m?? PHYSICAL EXAM: General: alert, oriented, NAD SKIN: no suspicious lesions, rashes, jaundice, or spider angiomas HEAD: Normocephalic. No masses, lesions, tenderness or abnormalities NECK: Neck supple. No adenopathy. Thyroid symmetric, normal size. EYES: No scleral icterus ENT: ENT exam normal, no neck nodes or sinus tenderness RESPIRATORY: negative, Good diaphragmatic excursion. Lungs clear CARDIOVASCULAR: negative, PMI normal. No lifts, heaves, or thrills. RRR. No murmurs, clicks gallopsor rub GASTROINTESTINAL: +BS, soft, NT, ND, no HSM, no masses/guarding/rebound JOINT/EXTREMITIES: extremities normal- no gross deformities noted, gait normal and normal muscle tone NEURO: Reflexes grossly normal and symmetric. Sensation grossly WNL. PSYCH: no abnormal anxiety/depression LYMPH: No anterior cervical, posterior cervical, or supraclavicular adenopathy LABS: I reviewed the patient's new clinical lab test results. Recent Labs Lab Test 12/13/2218 12/12/22 23012/12/22214812/05/22 0706 WBC 17.3* -- 18.4* 11.5* HGB 3.8* 4.2* 3.9* 7.8* MCV 104* -- 104* 99 PLT 237 -- 222 309 Recent Labs Lab Test 12/12/22214812/06/22 0606 12/05/22 0706 NA 137 126* 125* POTASSIUM 3.2* 5.6* 5.4* CHLORIDE 97* 93* 91* CO2 30* 25 26 BUN 23.3* 36.8* 34.8* ANIONGAP 10 8 8 PASTOR 7.9* 8.4* 8.6* Recent Labs Lab Test 12/12/22 2149 11/30/22 0723 11/24/22 2209 ALBUMIN 2.5* 2.5* 3.2* BILITOTAL <0.2 <0.2 0.2 ALT 13 15 15 AST 16 25 21 ALKPHOS 64 84 105* IMAGING I personally reviewed the patient's new imaging results. EXAM: CTA ABDOMEN PELVIS WITH CONTRAST LOCATION: [facility] DATE: 12/13/2022 INDICATION: acute on chronic anemia, melena, please do GI bleed protocol. ESRD, on hemodialysis, Recent removal of peritoneal dialysis catheter COMPARISON: 11/28/2022 TECHNIQUE: CT angiogram abdomen pelvis during arterial phase of injection of IV contrast. 2D and 3DMIP reconstructions were performed by the manufacturing engineering technologist. Dose reduction techniques were used. [...] remainder of the tube track. There is nosuggestion for active extravasation into this subcutaneous hematoma nor the tract. Abdominal wall musculature appears normal. IMPRESSION: 1. There is a small subcutaneous [...] to segmental colitis. There is no definitive hyperemiainvolving this segment and no evidence for active extravasation. CONSULTATION ASSESSMENT AND PLAN: 77 year old female with past medical history significant for end-stage renal disease, COPD, type 2 diabetes, hypertension, recent COVID infection, chronic pain, chronic anemia,recent hospitalization for peritonitis secondary corynebacterium requiring removal of PD catheter and initiation of hemodialysis admitted December 12 with symptoms of generalized weakness and acute on chronic anemia. HGB 3.9on admit, down from 7.8 1 week prior. Acute on chronic anemia. Anemia is macrocytic with normal or elevated iron levels. This is less consistent with iron deficiency anemia/GI bleeding. CTA shows no acute GI bleeding. She does have evidence of abdominal wall hematoma but this showed no active bleeding on CTA either. Hemolysis possible especially with elevated LDH. Haptoglobin is pending. She reports chronic black stools for years without oral iron and this is unchanged prior to admission. Based on this, cannot exclude upper GI bleeding especially with ASA use, but this seems less likely. She currently is hemodynamically stable and HGB stable. There has been delay in getting transfusion due to antibodies. Hopefully to receive later this morning. --Continue IV PPI BID. --Transfuse once blood products available (told possibly later this morning). --NPO for now. --Would prefer HGB to be improved prior to any consideration for endoscopy. No urgent need at the moment. May consider conservative approach given not clearly GI bleeding. --May consider hematology consult. 2. Leukocytosis. Blood cultures pending. Has recent peritonitis secondary to PD catheter and is on IV vancomycin. 3. ESRD. Previously on peritoneal dialysis but required removal due to infection, now on HD. Nephrology consulting. Will discuss with Dr. Ramirez. Reviewed with hospitalist and nurse. Total time spent: 50 minutes was spent providing patient care, including patient evaluation, reviewing documentation/test results, and border measurer. Thank you for asking us to participate in the care of this patient. Silvia Burger, [facility] ([facility]) Addendum: Reviewed with Dr. Ramirez. Will tentatively plan for EGD tomorrow in OR. Start clear liquids. NPO midnight. Placed hematology consult to evaluate for other causes for her anemia. If EGD not felt warranted based on that evaluation, will cancel. Associated attestation - Adama Ramirez MD - 12/13/2022 3:34 PM CDT Images from the original note were not included. Gastroenterology Consult in Conjunction with Advanced Practice Provider The patient was seen and evaluated in conjunction with the mid-level provider. Please see their note for details. All labs and imaging studies have been reviewed. Objective Patient is a 77-year-old female with multiple medical issues including dialysis. She recently had peritonitis and required removal of her peritoneal dialysis catheter. She started hemodialysis. We have been asked to see her regarding a hemoglobin of 3.9 admission. This is down from 7.81-week prior. She has a hematoma on her abdomen which is small this was seen on CT. CTA shows no active bleeding. She has chronic black stools for years. She is not on any iron. We have been asked to consider upper endoscopy. Vitals Blood pressure (!) 126/35, pulse 70, temperature 97.7 ??F (36.5 ??C), temperature source Temporal, resp. rate 16, height 1.549 m (5' 1), weight 42.1 kg (92 lb 13 oz), SpO2 98%. Laboratory Electrolytes Recent Labs Lab 12/13/22 1233 12/13/22 1059 12/13/22 0607 12/13/22 0216 12/12/22 2149 NA 137 -- -- -- 137 POTASSIUM 3.5 -- -- -- 3.2* CHLORIDE 96* -- -- -- 97* CO2 27 -- -- -- 30* GLC 239* 184* 118* < > 273* CR 2.82* -- -- -- 1.98* BUN 28.7* -- -- -- 23.3* < > = values in this interval not displayed. Hematology Recent Labs Lab 12/13/22 1056 12/13/22 0518 12/12/22 2302 12/12/22 2149 HGB 3.9* 3.8* 4.2* 3.9* MCV -- 104* -- 104* WBC -- 17.3* -- 18.4* PLT -- 237 -- 222 LFTs & Lipase Recent Labs Lab 12/12/22 2149 AST 16 ALT 13 ALKPHOS 64 BILITOTAL <0.2 I have reviewed the current diagnostic and laboratory tests. Impression and Plan Acute on chronic anemia. Anemia is macrocytic. Iron levels are markedly elevated. Unsure if she is having GI bleeding. She has had chronic black stools. She does use aspirin. Possibilities include peptic ulcer disease, esophagitis, esophageal ulcer, AVM etc. She has been started on PPI twice daily.She will be transfused as soon as blood products are available. We will tentatively place her on schedule for endoscopy tomorrow. Hemoglobin will need to be above 7. Consider hematology consult. 20 minutes spent reviewing documentation/test results, and border measurer. Adama Ramirez MD Thank you for the opportunity to participate in the care of this patient. Please feel free to call me with any questions or concerns. Phone number . documented in this encounter Nursing Notes * Kaylan Weldon RN - 12/14/2022 1:37 PM CDT Pt sent to room 600 without capnography. No capnography available. documented in this encounter ED Notes * Jeb Pineda RN - 12/13/2022 2:[address] [facility] ED Nurse Handoff Report ED Chief complaint: Generalized Weakness . ED Diagnosis: Final diagnoses: None Allergies: Allergies Allergen Reactions Cats Shortness Of Breath Atorvastatin Hives, Muscle [...] Lisinopril-Hydrochlorothiazide Rash Niacin Rash and Itching itch [place] Rash Pioglitazone Rash Itchy rash Code Status: Full Code Activity level - Baseline/Home: independent. Activity Level - Current: assist of 2. Lift room needed: No. Bariatric: No Rate Quoting Operator Needed: No Isolation: No. Infection: Not Applicable. Respiratory status: Nasal cannula. 4L humidified. Vital Signs (within 30 minutes): Vitals: 12/13/22 0030 12/13/22 0034 12/13/22 0130 12/13/22 0200 BP: 134/59 136/62 139/55 Pulse: 73 72 73 72 Resp: 13 22 17 10 Temp: TempSrc: SpO2: 94% 93% 100% Cardiac Rhythm: , Pain level: Patient confused: No. Patient Falls Risk: bed/chair alarm on, nonskid shoes/slippers when out of bed, arm band in place, patient and family education, assistive device/personal items within reach, activity supervised, andmobility aid in reach. Elimination Status: Patient on hemodialysis but does produce some urine still, per pt. Purewick in place. Patient Report - Initial Complaint: Generalized weakness. Patient had dialysis today, has felt increased weakness since then. Recent peritoneal infection with removal of access for that. Patient alsoreports recent discharge from hosp for covid. Congested cough noted. Patient reports BG of 400 at home, 245 here, Focused Assessment: Maricruz Vanegas is a 77 year old female with a history of type 2 diabetes, ESRD, PAD, COPD, and heart failure who presents to the emergency department for generalized weakness. Patient was admitted to [facility] from November 28 December 06 for peritonitis as a complication of her peritoneal dialysis. Peritoneal dialysis catheter was removed and she went back to hemodialysis through left upper extremity fistula. Also had hyponatremia exacerbation of CHF and COVID-pneumonia. Lives at home independently. For the last couple of days has felt increased generalized weakness and lack of energy. Some upright positioning associated lightheadedness and dizziness. Continues to have acough but feels that her breathing overall is improving since the recent COVID infection. No new fevers. Does states she had 1 bowel movement per day and the stool has appeared dark which she describes as black. No viet blood was seen. No vomiting. No discrete chest discomfort or shortness of breath at rest. Her last hemodialysis was yesterday which was an uncomplicated run by her report. She is not on anticoagulants. No history of GI bleeding. Abnormal Results: Labs Ordered and Resulted from Time of ED Arrival to Time of ED Departure GLUCOSE BY METER - Abnormal Result Value GLUCOSE BY METER POCT 245 (*) COMPREHENSIVE METABOLIC PANEL - Abnormal Sodium 137 Potassium 3.2 (*) Carbon Dioxide (CO2) 30 (*) Anion Gap 10 Urea Nitrogen 23.3 (*) Creatinine 1.98 (*) GFR Estimate 26 (*) Calcium 7.9 (*) Chloride 97 (*) Glucose 273 (*) Alkaline Phosphatase 64 AST 16 ALT 13 Protein Total 5.4 (*) Albumin 2.5 (*) Bilirubin Total <0.2 CBC WITH PLATELETS AND DIFFERENTIAL - Abnormal WBC Count 18.4 (*) RBC Count 1.03 (*) Hemoglobin 3.9 (*) Hematocrit 10.7 (*) MCV 104 (*) MCH 37.9 (*) MCHC 36.4 RDW 16.5 (*) Platelet Count 222 % Neutrophils 88 % Lymphocytes 5 % Monocytes 5 % Eosinophils 0 % Basophils 0 % Immature Granulocytes 2 NRBCs per 100 WBC 1 (*) Absolute Neutrophils 16.1 (*) Absolute Lymphocytes 0.9 Absolute Monocytes 0.9 Absolute Eosinophils 0.0 Absolute Basophils 0.0 Absolute Immature Granulocytes 0.4 Absolute NRBCs 0.3 TROPONIN T, HIGH SENSITIVITY - Abnormal Troponin T, High Sensitivity 82 (*) TSH WITH FREE T4 REFLEX - Abnormal TSH 5.44 (*) RETICULOCYTE COUNT - Abnormal % Reticulocyte 13.8 (*) Absolute Reticulocyte 0.075 HEMOGLOBIN - Abnormal Hemoglobin 4.2 (*) BLOOD GAS VENOUS WITH OXYHEMOGLOBIN - Abnormal pH Venous 7.49 (*) pCO2 Venous 44 pO2 Venous 27 Bicarbonate Venous 33 (*) FIO2 Oxyhemoglobin Venous 52 (*) Base Excess/Deficit ISTAT GASES LACTATE VENOUS POCT - Abnormal Lactic Acid POCT 2.4 (*) Bicarbonate Venous POCT 32 (*) O2 Sat, Venous POCT 31 (*) pCO2 Venous POCT 46 pH Venous POCT 7.45 (*) pO2 Venous POCT 19 (*) IRON AND IRON BINDING CAPACITY - Abnormal Iron 129 Iron Binding Capacity 170 (*) Iron Sat Index 76 (*) GLUCOSE BY METER - Abnormal GLUCOSE BY METER POCT 169 (*) MAGNESIUM - Normal Magnesium 2.0 AMMONIA - Normal Ammonia 19 OCCULT BLOOD STOOL - Normal Occult Blood Negative T4 FREE - Normal Free T4 1.14 ROUTINE UA WITH MICROSCOPIC REFLEX TO CULTURE FERRITIN LACTIC ACID WHOLE BLOOD LABORATORY MISCELLANEOUS ORDER GLUCOSE MONITOR NURSING POCT GLUCOSE MONITOR NURSING POCT VITAMIN B12 FOLATE TSH LACTATE DEHYDROGENASE HAPTOGLOBIN TYPE AND SCREEN, ADULT ABO/RH(D) O POS SPECIMEN EXPIRATION DATE [id number] PREPARE RED BLOOD CELLS (UNIT) BLOOD CULTURE BLOOD CULTURE ABO/RH TYPE AND SCREEN LAB BLOOD MORPHOLOGY PATHOLOGIST REVIEW XR Chest 2 Views Final Result IMPRESSION: Heart size within normal limits. Calcified aortic arch. Mild streaky left basilar atelectasis or infiltrate. The right lung is clear. No pneumothorax. CTA Abdomen Pelvis with Contrast Final Result IMPRESSION: 1. There is a small subcutaneous [...] to segmental colitis. There is no definitive hyperemiainvolving this segment and no evidence for active extravasation. Treatments provided: O2, labs, imaging, pain meds Family Comments: family at bedside OBS brochure/video discussed/provided to patient: N/A ED Medications: Medications sodium chloride 0.9% BOLUS 1-250 mL (has no administration in time range) acetaminophen (TYLENOL) tablet 650 mg (has no administration in time range) Or acetaminophen (TYLENOL) Suppository 650 mg (has no administration in time range) melatonin tablet 3 mg (has no administration in time range) senna-docusate (SENOKOT-S/PERICOLACE) 8.6-50 MG per tablet 1 tablet (has no administration in time range) Or senna-docusate (SENOKOT-S/PERICOLACE) 8.6-50 MG per tablet 2 tablet (has no administration in time range) polyethylene glycol (MIRALAX) Packet 17 g (has no administration in time range) bisacodyl (DULCOLAX) suppository 10 mg (has no administration in time range) ondansetron (ZOFRAN ODT) ODT tab 4 mg (has no administration in time range) Or ondansetron (ZOFRAN) injection 4 mg (has no administration in time range) glucose gel 15-30 g (has no administration in time range) Or dextrose 50 % injection 25-50 mL (has no administration in time range) Or glucagon injection 1 mg (has no administration in time range) insulin aspart (NovoLOG) injection (RAPID ACTING) (has no administration in time range) pantoprazole (PROTONIX) IV push injection 40 mg (has no administration in time range) oxyCODONE (ROXICODONE) tablet 5 mg (5 mg Oral $Given 12/13/22215) sodium chloride (PF) 0.9% PF flush 100 mL (56 mLs Intravenous $Given 12/13/2248) iopamidol (ISOVUE-370) solution 500 mL (49 mLs Intravenous $Given 12/13/2248) Drips infusing: No For the majority of the shift this patient was Green. Interventions performed were none. Sepsis treatment initiated: No Cares/treatment/interventions/medications to be completed following ED care: administer blood when it arrives. Continue with plan of care. ED Nurse Name: Pan Knowles RN 2:24 AM RECEIVING UNIT ED HANDOFF REVIEW Above ED Nurse Handoff Report was reviewed: Yes Reviewed by: Jeb Pineda RN on December 13, 2022 at 2:33 AM * Pan Knowles RN - 12/13/2022 2:15 AM CDT Patient had small dark BM. Bed change completed and repo completed. Humidified oxygen placed. * Connie Guzman RN - 12/13/2022 2:11 AM CDT Called lab about units of blood update. Per Alfonso, units have been requested but no ETA available. Lab will communicate when available. * Sydni Torres - 12/12/2022 10:50 PM CDT Pt complained of being cold after already having 2 warm blankets. ERT placed bear hugger on Pt and instructed Pt's visitor on usage. * Oj Vega - 12/12/2022 10:29 PM CDT Pt pressed call light and asked to go to the bathroom. Train Gateman asked the pt how well she gets aroundand if she walks at home. Pt stated that she does. Train Gateman asked her if she could sit up in the bed to test if she could sit up and hold herself up. Pt did not have great trunk control. Train Gateman informed the pt that her two options were bed awad or purewic. Pt opted for purewic. When placing the purewic telegraphic typewriter operator noticed stool in her underwear. When cleaning up pt telegraphic typewriter operator noted that there was stool cakedonto her bottom that was dried and looked to be a few days old. Pt was cleaned up and son was informed. Son stated that he never noticed. RN notified,Will update MD when one has signed up. Oj Vega on 12/12/2022 at 10:35 PM * Cornelio Suggs RN - 12/12/2022 9:54 PM CDT BIBA from home. Patient had dialysis today, has felt increased weakness since then. Recent peritoneal infection with removal of access for that. Patient also reports recent discharge from hosp for covid. Congested cough noted. Patient reports BG of 400 at home, 245 here, Triage Assessment (Adult) Row Name 12/12/22 2854 Triage Assessment Airway WDL WDL Respiratory WDL Respiratory WDL WDL Cardiac WDL Cardiac WDL WDL * Lluvia Hernandez RN - 12/12/2022 9:31 PM CDT Bed: ED01 Expected date: Expected time: Means of arrival: Comments: NF. 77F. BS 400 * Jason Tapia MD - 12/12/2022 9:31 PM CDT History Chief Complaint: Generalized Weakness The history is provided by the patient. Maricruz Vanegas is a 77 year old female with a history of type 2 diabetes, ESRD, PAD, COPD, and heart failure who presents to the emergency department for generalized weakness. Patient was admitted to [facility] from November 28 December 06 for peritonitis as a complication of her peritoneal dialysis. Peritoneal dialysis catheter was removed and she went back to hemodialysis through left upper extremity fistula. Also had hyponatremia exacerbation of CHF and COVID-pneumonia. Lives at home independently. For the last couple of days has felt increased generalized weakness and lack of energy. Some upright positioning associated lightheadedness and dizziness. Continues to have acough but feels that her breathing overall is improving since the recent COVID infection. No new fevers. Does states she had 1 bowel movement per day and the stool has appeared dark which she describes as black. No viet blood was seen. No vomiting. No discrete chest discomfort or shortness of breath at rest. Her last hemodialysis was yesterday which was an uncomplicated run by her report. She is not on anticoagulants. No history of GI bleeding. Independent Historian: None - Patient Only Review of External Notes: Recent [facility] discharge summary reviewed see above in the HPI Medications: Albuterol Amlodipine Aspirin 81 mg Cetirizine Clonidine Furosemide Glipizide Labetalol Ipratropium-albuterol Nicotine Oxycodone Repaglinide Past Medical History: Type 2 diabetes ESRD Neurogenic claudication Depression PAD Spinal stenosis Metabolic acidosis Heart failure COPD Proteinuria Diabetic nephropathy Tobacco use Anemia Asthma Past Surgical History: Peritoneal catheter insertion Remove catheter Ganglian cyst removal Cataract removal x2 Left corneal transplant Brachiocephalic fistula Physical Exam Patient Vitals for the past 24 hrs: BP Temp Temp src Pulse Resp SpO2 12/13/22 0200 139/55 -- -- 72 10 100 % 12/13/22 0130 136/62 -- -- 73 17 93 % 12/13/22 0034 -- -- -- 72 22 94 % 12/13/22 0030 134/59 -- -- 73 13 -- 12/13/22 0029 -- -- -- 74 10 90 % 12/12/22 2332 -- -- -- 74 24 90 % 12/12/22 2330 123/52 -- -- 71 -- -- 12/12/225 -- -- -- -- -- 91 % 12/12/222152 -- 97.9 ??F (36.6 ??C) Oral -- 20 -- 12/12/22 2149 119/53 -- -- 63 13 -- 12/12/225 -- 97.7 ??F (36.5 ??C) Oral -- 16 -- Physical Exam HENT: mmm, no rhinorrhea, some conjunctival and sublingual pallor Eyes: periorbital tissues are normal, left eye cloudy cornea Neck: supple, no abnormal swelling Lungs: CTAB, no resp distress CV: rrr, no m/r/g, ppi Abd: soft, nontender, nondistended, no rebound/masses/guarding/hsm, previous peritoneal dialysis catheter site clean dry and intact. Rectal: Done with female RN in the room. Small amount of dark stool. Ext: no peripheral edema Skin: warm, dry, well perfused, no rashes/bruising/lesions on exposed skin Neuro: alert, MAEE, no gross motor or sensory deficits, g due to get a Psych: Normal mood, normal affect Emergency Department Course Imaging: XR Chest 2 Views Final Result IMPRESSION: Heart size within normal limits. Calcified aortic arch. Mild streaky left basilar atelectasis or infiltrate. The right lung is clear. No pneumothorax. CTA Abdomen Pelvis with Contrast Final Result IMPRESSION: 1. There is a small subcutaneous [...] to segmental colitis. There is no definitive hyperemiainvolving this segment and no evidence for active extravasation. Read by radiologist. Laboratory: Labs Ordered and Resulted from Time of ED Arrival to Time of ED Departure GLUCOSE BY METER - Abnormal Result Value GLUCOSE BY METER POCT 245 (*) COMPREHENSIVE METABOLIC PANEL - Abnormal Sodium 137 Potassium 3.2 (*) Carbon Dioxide (CO2) 30 (*) Anion Gap 10 Urea Nitrogen 23.3 (*) Creatinine 1.98 (*) GFR Estimate 26 (*) Calcium 7.9 (*) Chloride 97 (*) Glucose 273 (*) Alkaline Phosphatase 64 AST 16 ALT 13 Protein Total 5.4 (*) Albumin 2.5 (*) Bilirubin Total <0.2 CBC WITH PLATELETS AND DIFFERENTIAL - Abnormal WBC Count 18.4 (*) RBC Count 1.03 (*) Hemoglobin 3.9 (*) Hematocrit 10.7 (*) MCV 104 (*) MCH 37.9 (*) MCHC 36.4 RDW 16.5 (*) Platelet Count 222 % Neutrophils 88 % Lymphocytes 5 % Monocytes 5 % Eosinophils 0 % Basophils 0 % Immature Granulocytes 2 NRBCs per 100 WBC 1 (*) Absolute Neutrophils 16.1 (*) Absolute Lymphocytes 0.9 Absolute Monocytes 0.9 Absolute Eosinophils 0.0 Absolute Basophils 0.0 Absolute Immature Granulocytes 0.4 Absolute NRBCs 0.3 TROPONIN T, HIGH SENSITIVITY - Abnormal Troponin T, High Sensitivity 82 (*) TSH WITH FREE T4 REFLEX - Abnormal TSH 5.44 (*) RETICULOCYTE COUNT - Abnormal % Reticulocyte 13.8 (*) Absolute Reticulocyte 0.075 HEMOGLOBIN - Abnormal Hemoglobin 4.2 (*) BLOOD GAS VENOUS WITH OXYHEMOGLOBIN - Abnormal pH Venous 7.49 (*) pCO2 Venous 44 pO2 Venous 27 Bicarbonate Venous 33 (*) FIO2 Oxyhemoglobin Venous 52 (*) Base Excess/Deficit ISTAT GASES LACTATE VENOUS POCT - Abnormal Lactic Acid POCT 2.4 (*) Bicarbonate Venous POCT 32 (*) O2 Sat, Venous POCT 31 (*) pCO2 Venous POCT 46 pH Venous POCT 7.45 (*) pO2 Venous POCT 19 (*) IRON AND IRON BINDING CAPACITY - Abnormal Iron 129 Iron Binding Capacity 170 (*) Iron Sat Index 76 (*) GLUCOSE BY METER - Abnormal GLUCOSE BY METER POCT 169 (*) MAGNESIUM - Normal Magnesium 2.0 AMMONIA - Normal Ammonia 19 OCCULT BLOOD STOOL - Normal Occult Blood Negative T4 FREE - Normal Free T4 1.14 ROUTINE UA WITH MICROSCOPIC REFLEX TO CULTURE FERRITIN LACTIC ACID WHOLE BLOOD LABORATORY MISCELLANEOUS ORDER GLUCOSE MONITOR NURSING POCT GLUCOSE MONITOR NURSING POCT VITAMIN B12 FOLATE TSH LACTATE DEHYDROGENASE HAPTOGLOBIN TYPE AND SCREEN, ADULT ABO/RH(D) O POS SPECIMEN EXPIRATION DATE [id number] PREPARE RED BLOOD CELLS (UNIT) BLOOD CULTURE BLOOD CULTURE ABO/RH TYPE AND SCREEN LAB BLOOD MORPHOLOGY PATHOLOGIST REVIEW Emergency Department Course & Assessments: ED Course as of 12/13/22 0256 Gemma Dec 13, 2022 0041 ECG shows normal sinus rhythm, T wave inversion present in inferior and lateral chest leads this is new from 11/29/2022. Interventions: Medications sodium chloride 0.9% BOLUS 1-250 mL (has no administration in time range) acetaminophen (TYLENOL) tablet 650 mg (has no administration in time range) Or acetaminophen (TYLENOL) Suppository 650 mg (has no administration in time range) melatonin tablet 3 mg (has no administration in time range) senna-docusate (SENOKOT-S/PERICOLACE) 8.6-50 MG per tablet 1 tablet (has no administration in time range) Or senna-docusate (SENOKOT-S/PERICOLACE) 8.6-50 MG per tablet 2 tablet (has no administration in time range) polyethylene glycol (MIRALAX) Packet 17 g (has no administration in time range) bisacodyl (DULCOLAX) suppository 10 mg (has no administration in time range) ondansetron (ZOFRAN ODT) ODT tab 4 mg (has no administration in time range) Or ondansetron (ZOFRAN) injection 4 mg (has no administration in time range) glucose gel 15-30 g (has no administration in time range) Or dextrose 50 % injection 25-50 mL (has no administration in time range) Or glucagon injection 1 mg (has no administration in time range) insulin aspart (NovoLOG) injection (RAPID ACTING) (has no administration in time range) pantoprazole (PROTONIX) IV push injection 40 mg (has no administration in time range) oxyCODONE (ROXICODONE) tablet 5 mg (5 mg Oral $Given 12/13/226) sodium chloride (PF) 0.9% PF flush 100 mL (56 mLs Intravenous $Given 12/13/22 0049) iopamidol (ISOVUE-370) solution 500 mL (49 mLs Intravenous $Given 12/13/2248) Assessments: 2300 I obtained history and examined the patient as noted above. 0158 I discussed findings and hospitalization with the patient. All questions answered. Independent Interpretation (X-rays, CTs, rhythm strip): Chest radiograph without evidence of lobar opacity, pneumothorax, clinically significant pleural effusion or cardiomegaly. CT of the abdomen pelvis without significant retroperitoneal or intraperitoneal free fluid. Consultations/Discussion of Management or Tests: [address] Flores, hospitalist, regarding the patient. He accepts admission. Social Determinants of Health affecting care: None Disposition: The patient was admitted to the hospital under the care of Dr. Flores. Impression & Plan [facility] Diagnoses: and None Medical Decision Makin-year-old female presenting with generalized weakness found to have acute on chronic anemia. Given the degree of anemia will need blood transfusion. Etiology unclear at this point. She does have dark stool however this tested negative on an occult blood sample. CT scan of the abdomen and pelvis does not show a retroperitoneal bleed, significant intraperitoneal free fluid or active extravasation. Recent peritoneal dialysis catheter removal there is only a small amount of fluid as would be expected at this location. On examination there is no concerns for occult bleeding into the thigh buttock humerus etc. Hemolysis seems unlikely as well. Plan is for admission to the hospitalist service for further evaluation management. We will transfuse 2 units of blood cells and cross for 3 anticipating she may need more. Given she is not hypotensive we will plan to give her the blood slowly to avoid hypervolemia given her end-stage renal disease on hemodialysis. There is no evidence of underlyingbacterial infection at this point and will defer empiric antibiotics. Diagnosis: ICD-10-CM 1. Acute on chronic anemia D64.9 2. ESRD (end stage renal disease) on dialysis (H) N18.6 Z99.2 Scribe Disclosure: IAdama, am serving as a scribe at 10:58 PM on 12/12/2022 to document services personally performed by Jason Tapia MD based on my observations and the provider's statements to me. 12/12/2022 Jason Tapia MD Walker, Jerome Richard, MD 12/13/22 0259 documented in this encounter Miscellaneous Notes * Plan of Care - Marco Santacruz RN - 12/18/2022 10:22 AM CST Problem: Adult Inpatient Plan of Care Goal: Absence of Hospital-Acquired Illness or Injury Intervention: Identify and Manage Fall Risk Recent Flowsheet Documentation Taken 12/18/2022899 by Marco Santacruz RN Safety Promotion/Fall Prevention: nonskid shoes/slippers when out of bed Intervention: Prevent Skin Injury Recent Flowsheet Documentation Taken 12/18/2022899 by Marco Santacruz RN Body Position: position changed independently Intervention: Prevent and Manage VTE (Venous Thromboembolism) Risk Recent Flowsheet Documentation Taken 12/18/2022899 by Marco Santacruz RN VTE Prevention/Management: SCDs (sequential compression devices) off Goal: Optimal Comfort and Wellbeing Intervention: Monitor Pain and Promote Comfort Recent Flowsheet Documentation Taken 12/18/2022 08 by Mraco Santacruz RN Pain Management Interventions: medication (see MAR) Problem: Fall Injury Risk Goal: Absence of Fall and Fall-Related Injury Intervention: Identify and Manage Contributors Recent Flowsheet Documentation Taken 12/18/2022899 by Marco Santacruz RN Medication Review/Management: medications reviewed Intervention: Promote Injury-Free Environment Recent Flowsheet Documentation Taken 12/18/2022899 by Marco Santacruz RN Safety Promotion/Fall Prevention: nonskid shoes/slippers when out of bed Goal Outcome Evaluation: SCRIBER * Plan of Care - Juani Sharma RN - 12/18/2022 6:20 AM CST Care continued: 2300 - 0730 Goal Outcome Evaluation: No BM this shift, pt endorses having one on days without any blood/bleeding Dialysis on days, no complications to fistula noted Pt endorsed some tightness with breathing and requested a neb treatment this shift Also endorsed increased levels of pain and one time dose of pain medication ordered - See MAR VSS BP 133/50 (BP Location: Right arm, Patient Position: Right side, Cuff Size: Adult Small) Pulse 73 Temp 98.4 ??F (36.9 ??C) (Temporal) Resp 17 Ht 1.549 m (5' 1) Wt 46.6 kg (102 lb 11.2 oz) SpO2 98% BMI 19.40 kg/m?? Cluster cares in effect to promote sleep and reduce risks for delirium. RN will continue to maintain care and the treatment plan this shift, handing off care to oncoming RN at 07:30 12/18/2022 Juani Sharma RN 12/18/2022 6:20 AM SCRIBER * Plan of Care - Myrna Reese RN - 12/17/2022 10:59 PM CST A&Ox4. SBAx1. VSS. 02 - 100% on 1L via NC. LS - clear. Blood sugar at 2200 - 310. No insulin order for 0. Pt had eaten at a snack box, 2 ice creams andhad a cola, just after 2100. pgd. Melatonin requested at 2114. SCRIBER * Plan of Care - Kaylan Angela RN - 12/17/2022 6:33 PM CST Goal Outcome Evaluation:ongoing Pt is stable with current Hgb 7.1. Stool this PM was large, black-brown in color no red at all. Sent for H pylori sample. Dialysis today with 2.5L removed. Vitals remained stable. Continued nasal cannula 2L. Lungs are dimbut clear. Lasix increased per nephrology to 80mg bid. Continued plan of care: Protonix BID, IV Vanco x1. SCRIBER * Plan of Care - Kaylan Angela RN - 12/17/2022 6:19 PM CST Goal Outcome Evaluation: progressing SCRIBER * Pharmacy-Vancomycin Dosing Service - Rajan Hammond [facility] - 12/17/2022 2:13 PM CST Pharmacy Vancomycin Note Date of Service December 17, 2022 Patient's 1945 77 year old, female Indication: peritonitis Day of Therapy: has been on Vanco since 11/30/22 Current vancomycin regimen: intermittent dosing Current vancomycin monitoring method: Renal Replacement Therapy Current vancomycin therapeutic monitoring goal: 15-20 mg/L Current estimated CrCl = Estimated Creatinine Clearance: 8.2 mL/min (A) (based on SCr of 3.8 mg/dL (H)). Creatinine for last 3 days 12/15/2022: 5:45 AM Creatinine 2.72 mg/dL 12/16/2022: 6:12 AM Creatinine 3.42 mg/dL 12/17/2022: 6:31 AM Creatinine 3.80 mg/dL Recent Vancomycin Levels (past 3 days) 12/16/2022: 6:12 AM Vancomycin 17.3 ug/mL 12/17/2022: 6:31 AM Vancomycin 16.0 ug/mL Vancomycin IV Administrations (past 72 hours) vancomycin (VANCOCIN) 1,000 mg in 200 mL dextrose intermittent infusion (mg) 1,000 mg New Bag 12/15/22 1228 Nephrotoxins and other renal medications (From now, onward) Start Dose/Rate Route Frequency Ordered Stop 12/17/22 1600 vancomycin (VANCOCIN) 500 mg vial to attach to NS 100 mL bag 500 mg over 1 Hours Intravenous ONCE 12/17/22 1410 12/15/22 1000 furosemide (LASIX) tablet 40 mg Note to Pharmacy: CT SCAN TECHNICIAN Sig:Take 40 mg by mouth daily 40 mg Oral DAILY 12/15/2293012/15/[address] salcedo - receiving intermittent dosing 1 each Intravenous SEE ADMIN INSTRUCTIONS 12/15/22945 Contrast Orders - past 72 hours (72h ago, onward) None Interpretation of levels and current regimen: Vancomycin level is reflective of therapeutic level Has serum creatinine changed greater than 50% in last 72 hours: No Urine output: unable to determine Renal Function: ESRD on Dialysis Plan: Vancomycin 500mg IV x 1 after dialysis Vancomycin monitoring method: Renal Replacement Therapy Vancomycin therapeutic monitoring goal: 15-20 mg/L Pharmacy will check vancomycin levels as appropriate in 1-3 Days Rajan Hammond RPH SCRIBER * Plan of Care - Florence Emery, SUSANA - 12/17/2022 5:41 AM CST Goal Outcome Evaluation: Plan of Care Reviewed With: patient Overall Patient Progress: improving Pt is A&O x 4. SBA. BG 130. Audible wheezing, MCKEON. O2 increased to 2L via NC for comfort. PRN neb administered per RT. Pt reports constipation. Miralax and senna ineffective- PRN bisacodyl supp given- no results. HD Mon, Wed, Fri. Plan is to discharge home with family support when medically ready. SCRIBER * Pharmacy-Vancomycin Dosing Service - Derek Hernandez RP - 12/16/2022 4:03 PM CST Pharmacy Vancomycin Note Date of Service December 16, 2022 Patient's 1945 77 year old, female Indication: Intra-abdominal infection Day of Therapy: 17 (was started 11/30/22) Current vancomycin regimen: one-time order per levels per HD-dosing policy Current vancomycin monitoring method: Trough (Method 2 = manual dose calculation) Current vancomycin therapeutic monitoring goal: 15-20 mg/L Current estimated CrCl = Estimated Creatinine Clearance: 9.1 mL/min (A) (based on SCr of 3.42 mg/dL(H)). Creatinine for last 3 days 12/14/2022: 5:45 AM Creatinine 3.40 mg/dL 12/15/2022: 5:45 AM Creatinine 2.72 mg/dL 12/16/2022: 6:12 AM Creatinine 3.42 mg/dL Recent Vancomycin Levels (past 3 days) 12/16/2022: 6:12 AM Vancomycin 17.3 ug/mL Vancomycin IV Administrations (past 72 hours) vancomycin (VANCOCIN) 1,000 mg in 200 mL dextrose intermittent infusion (mg) 1,000 mg New Bag 12/15/22 1228 Nephrotoxins and other renal medications (From now, onward) Start Dose/Rate Route Frequency Ordered Stop 12/15/22 1000 furosemide (LASIX) tablet 40 mg Note to Pharmacy: CT SCAN TECHNICIAN Sig:Take 40 mg by mouth daily 40 mg Oral DAILY 12/15/2293012/15/[address] [place]o - receiving intermittent dosing 1 each Intravenous SEE ADMIN INSTRUCTIONS 12/15/22945 Contrast Orders - past 72 hours (72h ago, onward) None Interpretation of levels and current regimen: Vancomycin level is reflective of therapeutic level Has serum creatinine changed greater than 50% in last 72 hours: HD pt Renal Function: ESRD on Dialysis Plan: Continue Current Dose / regimen: the 12/17 post-HD vanco dose will be determined by 11 am level (ordered) as per policy Vancomycin monitoring method: Trough (Method 2 = manual dose calculation) Vancomycin therapeutic monitoring goal: 15-20 mg/L Pharmacy will check vancomycin levels as appropriate in tomorrow 12/17, the morning of next HD session . Serum creatinine levels will be ordered daily for the first week of therapy and at least twice weekly for subsequent weeks. Derek Hernandez RPH SCRIBER * Plan of Care - Nahomi Sainz RN - 12/16/2022 3:32 PM CST Attempted to wean off O2, however it was unsuccessful. Currently on 0.5L NC with sats in the mid 90s but drops to mid 70s when on RA. Denies pain throughout shift. Reported MCKEON. Noted wheezing and crackles. Duo-neb given by RT. On PO lasix. Needs a stool sample,however no BM during shift. One time dose of Sorbitol and PRN Miralax given with no result. Abdomen sound. Bowel sounds active in all four quads. Hgb trending down. Had a bath during shift. Son at bedside. Calm and pleasant with cares. Will continue to provide supportive care. SCRIBER * Plan of Care - Florence Emery RN - 12/16/2022 6:17 AM CST Goal Outcome Evaluation: Plan of Care Reviewed With: patient Overall Patient Progress: improving Pt is A&O x 4. Fine crackles bilateral lower lobes. Occasional, productive cough. Weaned to 1L O2 with NC. PRN duo-neb administered x 1. BG 226 and 171. SBA with mobility. No BM. Plan is to discharge home with family support when no longer requiring supplemental O2. SCRIBER * Plan of Care - Nahomi Sainz RN - 12/15/2022 7:48 PM CDT Aox4, forgetful. Pain managed Oxy. Up with SBA gait belt. Tolerating regular diet. Lung sounds diminished. MCKEON. IV Vanco and Lasix given. Reported beating on ear. Dr Yanez notified, ordered Debrox. Denies SOB during shift. MIRALAX, senna and sorbitol given with no result. Sliding scale given per order. Son at bedside. Will continue to provide supportive care. * Pharmacy-Vancomycin Dosing Service - Sandy Trinh RPH - 12/15/2022 12:35 PM CDT Pharmacy Vancomycin Initial Note Date of Service December 15, 2022 Patient's 1945 77 year old, female Indication: IAI Current estimated CrCl = Estimated Creatinine Clearance: 11.5 mL/min (A) (based on SCr of 2.72 mg/dL (H)). Creatinine for last 3 days 12/12/2022: 9:49 PM Creatinine 1.98 mg/dL 12/13/2022: 12:33 PM Creatinine 2.82 mg/dL 12/14/2022: 5:45 AM Creatinine 3.40 mg/dL 12/15/2022: 5:45 AM Creatinine 2.72 mg/dL Vancomycin IV Administrations (past 72 hours) vancomycin (VANCOCIN) 1,000 mg in 200 mL dextrose intermittent infusion (mg) 1,000 mg New Bag 12/15/22 1228 Nephrotoxins and other renal medications (From now, onward) Start Dose/Rate Route Frequency Ordered Stop 12/15/22 1000 furosemide (LASIX) tablet 40 mg Note to Pharmacy: CT SCAN TECHNICIAN Sig:Take 40 mg by mouth daily 40 mg Oral DAILY 12/15/2231 12/15/22 1000 vancomycin (VANCOCIN) 1,000 mg in 200 mL dextrose intermittent infusion 1,000 mg 200 mL/hr over 1 Hours Intravenous ONCE 12/15/2294512/15/[address] salcedo - receiving intermittent dosing 1 each Intravenous SEE ADMIN INSTRUCTIONS 12/15/22945 Contrast Orders - past 72 hours (72h ago, onward) Start Dose/Rate Route Frequency Stop 12/13/22 0050 iopamidol (ISOVUE-370) solution 500 mL 500 mL Intravenous ONCE 12/13/22 0049 Plan: Start vancomycin 1000 mg IV once, then follow vanco level before redose. Vancomycin monitoring method: traditional Vancomycin therapeutic monitoring goal: 15-20 mg/L Pharmacy will check vancomycin levels as appropriate in 1-3 Days. Serum creatinine levels will be ordered twice weekly (dialysis pt) Sandy Trinh RPH * Plan of Care - Sadaf Can RN - 12/15/2022 6:49 AM CDT Goal Outcome Evaluation: Pt alert and oriented x 4. VSS except on 3 L oxygen via nasal canula. Pt c/o SOB, anterior LS diminished, LLL wheeze inspiratory. PRN Duoneb given, intervention effective per patient. Pt ambulated in the hallway SBA+GB. 02:00 BS 159. Plan of care ongoing. * Plan of Care - Inez Ash RN - 12/14/2022 10:14 PM CDT Vitals are Temp: 97.7 ??F (36.5 ??C) Temp src: Temporal BP: (!) 157/58 Pulse: 77 Resp: 12 SpO2: 94 %. Pt A&ox4, vitals stable on 4L via NC. Pt is up with Ax1 with gait belt and walker. Reporting generalized pain 11/20, given dilaudid PO per pt request. Needs stool sample collection. Blood sugar 211 at bedtime, notified crosscover with response to monitor. * Plan of Care - Nahomi Sainz RN - 12/14/2022 7:55 PM CDT Aox4. VSS except on 4L oxymask. Pain managed with po oxy and dilaudid. PRN Duoneb given for SOB. Noted some fine crackles. Had EGD done. Had dialysis today and removed 2L fluid. Lost IV access. Son at bedside. Calm and pleasant with cares. Will continue to provide supportive care. * Plan of Care - Lluvia King RN - 12/13/2022 11:28 PM CDT Goal Outcome Evaluation: Plan of Care Reviewed With: patient Overall Patient Progress: improvingOverall Patient Progress: improving Pt c/o high rated pain all over- good relief with tylenol & oxy. VSS- afeb. Requiring O2 at 2l per NC for sats >90%. Infused 2 units PRB cells- pt thomas well. Hgb between units was 5.9- reported to Dr Cramer. Pt up with sba to bathroom- voided X1. Thomas clear liquids- blood sugars 171 & 199 plan is for EGD tomorrow- NPO after [place] * Plan of Care - Bev Beal RN - 12/13/2022 2:14 PM CDT Orientation:A&ox4 Vss afebrile. 02: 94-97% ra Tele: sr with inverted t waves per teleradiologist LS:clear GI:bs+, small dark stool. Tolerated clear liq diet. Will have egd tomorrow. : voided x1 this morning, pt stated she voids 1-2x/day Skin: dry, scaly Activity: assist of 2 to br. Pain: c/o pain generalized. Pt requested tylenol. Plan: blood transfusion started at 1410. Gi/nephro following. Hemo/onc consulted. Bg ac/hs. Hgb q6hrs. * Pharmacy-Admission Medication History - Maris Cárdenas RPH - 12/13/2022 11:37 AM CDT Pharmacist Admission Medication History Admission medication history is complete. The information provided in this note is only as accurateas the sources available at the time of the update. Information Source(s): Patient, [facility] records[facility] Pertinent Information: Patient discharged 12/06 stated no changes to medications Changes made to CT SCAN TECHNICIAN medication list: Added: Gabapentin Deleted: None Changed: None Medication Affordability: Not including over the counter (OTC) medications, was there a time in the past 3 months when you did not take your medications as prescribed because of cost?: Unable to Assess Allergies reviewed with patient and updates made in EHR: unable to assess Medication History Completed By: Maris Cárdenas RPH 12/13/2022 11:[address] SCAN TECHNICIAN Med List Medication Sig Last Dose albuterol (PROVENTIL) (2.5 MG/3ML) 0.083% neb solution Take 2.5 mg by nebulization every 4 hours asneeded for shortness of breath Unknown at PRN amLODIPine (NORVASC) 10 MG tablet Take 10 mg by mouth 2 times daily 12/12/2022 aspirin 81 MG EC tablet Take 81 mg by mouth daily 12/12/2022 calcium acetate (PHOSLO) 667 MG CAPS capsule Take 667 mg by mouth 3 times daily (with meals) 12/12/2022 carboxymethylcellulose PF (REFRESH PLUS) 0.5 % ophthalmic solution Place 1 drop Into the left eye 4times daily 12/12/2022 cetirizine (ZYRTEC) 10 MG tablet Take 10 mg by mouth daily 12/12/2022 cloNIDine (CATAPRES) 0.1 MG tablet Take 2 tablets (0.2 mg) by mouth every morning and take 3 tablets by mouth (0.3 mg) every evening 12/12/2022 erythromycin (ROMYCIN) 5 MG/GM ophthalmic ointment Place Into the left eye 4 times daily 12/12/2022 furosemide (LASIX) 40 MG tablet Take 40 mg by mouth daily 12/12/2022 gabapentin (NEURONTIN) 300 MG capsule Take 300 mg by mouth at bedtime Past Week glipiZIDE (GLUCOTROL XL) 10 MG 24 hr tablet Take 20 mg by mouth daily (before supper) 12/12/2022 ipratropium - albuterol 0.5 mg/2.5 mg/3 mL (DUONEB) 0.5-2.5 (3) MG/3ML neb solution Inhale 3 mLs into the lungs every 6 hours as needed for shortness of breath Unknown at PRN labetalol (NORMODYNE) 300 MG tablet Take 300 mg by mouth 3 times daily 12/12/2022 yvnxpdvo-wltmucndw-jnvUDUTNkinnx (MAXITROL) 3.5-63377-3.[address] 0.25 inches Into the left eye 4 times daily 12/12/2022 nicotine (NICODERM CQ) 7 MG/24HR [address] 1 patch onto the skin every 24 hours 12/12/2022 oxyCODONE (ROXICODONE) 5 MG tablet Take 10 mg by mouth at bedtime 12/12/2022 polyethylene glycol (MIRALAX) 17 g packet Take 1 packet by mouth every 3 days Past Week repaglinide (PRANDIN) 1 MG tablet Take 1 tablet by mouth 3 times daily (before meals) 12/12/2022 senna (SENOKOT) 8.6 MG tablet Take 1 tablet by mouth every 3 days Past Week sorbitol 70 % SOLN solution Take 30 mLs by mouth every 3 days Past Week triamcinolone (KENALOG) 0.1 % external cream Apply topically daily as needed for irritation Unknownat PRN * Plan of Care - Jeb Pineda, RN - 12/13/2022 3:51 AM CDT Pt arrived to floor via cart from ED. Son at bedside. Oriented to room and call system. Goal Outcome Evaluation: Plan of Care Reviewed With: patient Overall Patient Progress: improvingOverall Patient Progress: improving Pt A/Ox4, VSS on 2 L NC. Generalized pain 10/10, 5 mg oxycodone given in ER prior to arriving to floor, Tylenol given when arrived. A2 w/GB, transferred from cart to bed. Hgb 4.2 in ED, blood has special antibodies in it, waiting for units to be delivered from another site. Recheck Hgb this AM was 3.8. Pure wick in place, no stools since arriving up here. Plan to see GI and nephrology this AM. documented in this encounter Plan of Treatment Not on file documented as of this encounter Procedures Procedure Name Priority Date/Time Associated Diagnosis Comments GLUCOSE BY METER Routine 12/18/2022 12:47 PM TRANSCRIBER RENAL PANEL Routine 12/18/2022 8:45 AM TRANSCRIBER GLUCOSE BY METER Routine 12/18/2022 8:08 AM TRANSCRIBER GLUCOSE BY METER Routine 12/18/2022 1:44 AM TRANSCRIBER GLUCOSE BY METER Routine 12/17/2022 10:16 PM TRANSCRIBER GLUCOSE BY METER Routine 12/17/2022 10:10 PM TRANSCRIBER GLUCOSE BY METER Routine 12/17/2022 10:07 PM TRANSCRIBER HELICOBACTER PYLORI ANTIGEN STOOL Routine 12/17/2022 6:24 PM TRANSCRIBER GLUCOSE BY METER Routine 12/17/2022 6:12 PM TRANSCRIBER GLUCOSE BY METER Routine 12/17/2022 12:40 PM TRANSCRIBER GLUCOSE BY METER Routine 12/17/2022 8:08 AM TRANSCRIBER VANCOMYCIN LEVEL Routine 12/17/2022 6:31 AM TRANSCRIBER RENAL PANEL Routine 12/17/2022 6:31 AM TRANSCRIBER HEMOGLOBIN Routine 12/17/2022 6:31 AM TRANSCRIBER GLUCOSE BY METER Routine 12/17/2022 2:12 AM TRANSCRIBER GLUCOSE BY METER Routine 12/16/2022 10:06 PM TRANSCRIBER GLUCOSE BY METER Routine 12/16/2022 5:31 PM TRANSCRIBER GLUCOSE BY METER Routine 12/16/2022 3:41 PM TRANSCRIBER GLUCOSE BY METER Routine 12/16/2022 11:21 AM TRANSCRIBER GLUCOSE BY METER Routine 12/16/2022 7:24 AM TRANSCRIBER VANCOMYCIN LEVEL Timed 12/16/2022 6:12 AM TRANSCRIBER RENAL PANEL Routine 12/16/2022 6:12 AM TRANSCRIBER CBC WITH PLATELETS Routine 12/16/2022 6:12 AM TRANSCRIBER GLUCOSE BY METER Routine 12/16/2022 1:02 AM CDT GLUCOSE BY METER Routine 12/15/2022 10:08 PM CDT GLUCOSE BY METER Routine 12/15/2022 5:09 PM CDT GLUCOSE BY METER Routine 12/15/2022 12:22 PM CDT GLUCOSE BY METER Routine 12/15/2022 7:18 AM CDT RENAL PANEL Routine 12/15/2022 5:45 AM CDT CBC WITH PLATELETS Routine 12/15/2022 5:45 AM CDT GLUCOSE BY [...] PARTIAL RHD Routine 12/14/2022 5:45 AM CDT RENAL PANEL Routine 12/14/2022 5:45 AM CDT CBC WITH PLATELETS Routine 12/14/2022 5:45 AM CDT GLUCOSE BY [...] TOP TUBE Routine 12/13/2022 5:25 AM CDT MORPHOLOGY TRACKING STAT 12/13/2022 5:18 AM CDT BLOOD MORPHOLOGY PATHOLOGIST REVIEW STAT 12/13/2022 5:18 AM CDT EXTRA TUBE Routine 12/13/2022 5:18 AM CDT EXTRA BLOOD BANK PURPLE TOP TUBE Routine 12/13/2022 5:18 AM CDT CBC WITH PLATELETS AND DIFFERENTIAL STAT 12/13/2022 5:18 AM CDT RETICULOCYTE COUNT STAT 12/13/2022 5:18 AM CDT LACTIC ACID WHOLE BLOOD STAT 12/14/19 5:18 AM CDT FOLATE STAT 12/13/2022 5:18 AM CDT BLOOD MORPHOLOGY PATHOLOGIST REVIEW STAT 12/13/2022 5:18 AM CDT GLUCOSE BY METER STAT [...] CDT PREPARE RED BLOOD CELLS (UNIT) STAT 02/11/2022 11:07 PM CDT PREPARE RED BLOOD CELLS (UNIT) STAT 02/11/2022 11:07 PM CDT ISTAT GASES LACTATE VENOUS POCT STAT 12/12/2022 11:05 PM CDT OCCULT BLOOD STOOL STAT 12/12/2022 11:03 PM CDT HEMOGLOBIN STAT 12/12/2022 11:02 PM CDT AMMONIA STAT 12/12/2022 11:02 PM CDT TYPE AND SCREEN, ADULT STAT 10:42 PM CDT ABO/RH TYPE AND SCREEN STAT 10:42 PM CDT EXTRA HEPARINIZED SYRINGE STAT 2022 9:49 PM CDT EXTRA TUBE STAT 12/12/2022 9:49 PM CDT EXTRA BLOOD CULTURE BOTTLE STAT 12/12 9:49 PM CDT EXTRA PURPLE TOP TUBE STAT 12/12/2022 9:49 PM CDT EXTRA GREEN TOP (LITHIUM HEPARIN) TUBE STAT 12/12/2022 9:49 PM CDT EXTRA RED TOP TUBE STAT 12/12/2022 9:49 PM CDT EXTRA BLUE TOP TUBE STAT 12/12/2022 9:49 PM CDT CBC WITH PLATELETS AND DIFFERENTIAL STAT 12/12/2022 9:49 PM CDT LACTATE DEHYDROGENASE Add-On 12/12/2022 9:49 PM CDT TROPONIN T, HIGH SENSITIVITY STAT 02/2022 9:49 PM CDT CBC WITH PLATELETS & DIFFERENTIAL STAT 12/12/2022 9:49 PM CDT TSH WITH FREE T4 REFLEX STAT 12/13/19 9:49 PM CDT TSH Add-On 12/12/2022 9:49 PM CDT T4 FREE STAT 12/12/2022 9:49 PM CDT RETICULOCYTE COUNT Add-On 12/12/2022 9:49 PM CDT MAGNESIUM STAT 12/12/2022 9:49 PM CDT IRON AND IRON BINDING CAPACITY Add-On 1 02/11/2022 9:49 PM CDT FERRITIN STAT 12/12/2022 9:49 PM CDT COMPREHENSIVE METABOLIC PANEL STAT 9:49 PM CDT BLOOD GAS VENOUS WITH OXYHEMOGLOBIN STAT 12/12/2022 9:49 PM CDT BLOOD CULTURE Add-On 12/12/2022 9:49 PM CDT VITAMIN B12 Add-On 12/12/2022 9:49 PM CDT GLUCOSE BY METER STAT 12/12/2022 9:39 PM CDT documented in this encounter Results * (ABNORMAL) Glucose by meter (12/18/2022 12:47 PM TRANSCRIBER) GLUCOSE BY METER POCT 278(H) 70 - 99 mg/dL 12/18/2022 12:53 PM TRANSCRIBER LABORATORY POC Blood, Capillary BLOOD SPECIMEN / Unknown 12/18/2022 12:47 PM TRANSCRIBER 12/18/2022 12:53 PM TRANSCRIBER Arsenio DE LA ROSA - BEAKER POCT RH LABORATORY [facility] [address] Lab (1st floor, no room number) [place] [address], [facility] [phone] * (ABNORMAL) Renal panel (12/18/2022 8:45 AM TRANSCRIBER) Pathologist [facility] Sodium 135 135 - 145 mmol/L 12/18/2022 9:44 AM [facility] LABORATORY Comment:Reference intervals for this test were updated on 11/06/2022 to more accurately reflect our healthy population. There may be differences in the flagging of prior results with similar values performed with this method. Interpretation of those prior results can be made in the context of the updated reference intervals. Potassium 4.2 3.4 - 5.3 mmol/L 12/18/2022 9:44 AM TRANSCRIBER LABORATORY Chloride 99 98 - 107 mmol/L 12/18/2022 9:44 AM TRANSCRIBER LABORATORY Carbon Dioxide (CO2) 29 22 - 29 mmol/L 12/18/2022 9:44 AM TRANSCRIBER LABORATORY Anion Gap 7 7 - 15 mmol/L 12/18/2022 9:44 AM TRANSCRIBER LABORATORY Glucose 128(H) 70 - 99 mg/dL 12/18/2022 9:44 AM TRANSCRIBER LABORATORY Urea Nitrogen 17.7 8.0 - 23.0 mg/dL 12/18/2022 9:44 AM TRANSCRIBER LABORATORY Creatinine 2.67(H) 0.51 - 0.95 mg/dL 12/18/2022 9:44 AM TRANSCRIBER LABORATORY GFR Estimate 18(L) >60 mL/min/1. 73m2 12/18/2022 9:44 AM TRANSCRIBER LABORATORY Calcium 7.6(L) 8.8 - 10.2 mg/dL 12/18/2022 9:44 AM TRANSCRIBER LABORATORY Albumin 2.6(L) 3.5 - 5.2 g/dL 12/18/2022 9:44 AM TRANSCRIBER LABORATORY Phosphorus 2.3(L) 2.5 - 4.5 mg/dL 12/18/2022 9:44 AM TRANSCRIBER LABORATORY Blood STRUCTURE OF RIGHT UPPER LIMB / Unknown Venipuncture / Unknown 12/18/2022 8:45 AM TRANSCRIBER 12/18/2022 8:50 AM TRANSCRIBER David Treviño MD LAB - BLOOD ORDERABL ES Performing Organization Address City/[facility]/ZIP Co de Phone Number [facility] [address] Lab (1st floor, no room number) [place] [address], [facility] [phone] * (ABNORMAL) Glucose by meter (12/18/2022 8:08 AM TRANSCRIBER) [employer] Signature GLUCOSE BY METER POCT 125(H) 70 - 99 mg/dL 12/18/2022 8:14 AM TRANSCRIBER LABORATORY POC Blood, Capillary BLOOD SPECIMEN / Unknown 12/18/2022 8:08 AM TRANSCRIBER 12/18/2022 8:14 AM TRANSCRIBER Arsenio Flores DO LAB - BEAKER POCT [facility] [address] Lab (1st floor, no room number) [place] [address], [place] [phone] * (ABNORMAL) Glucose by meter (12/18/2022 1:44 AM TRANSCRIBER) GLUCOSE BY METER POCT 298(H) 70 - 99 mg/dL 12/18/2022 1:50 AM TRANSCRIBER RH LABORATORY POC Blood, Capillary BLOOD SPECIMEN / Unknown 12/18/2022 1:44 AM TRANSCRIBER 12/18/2022 1:50 AM TRANSCRIBER Arsenio Flores DO TABITHA - RONNY POCT Performing Organization Address City/[facility]/ZIP Co de Phone Number LABORATORY [facility] [address] Lab (1st floor, no room number) [place] [address], [facility] [phone] * (ABNORMAL) Glucose by meter (12/17/2022 10:16 PM TRANSCRIBER) GLUCOSE BY METER POCT 310(H) 70 - 99 mg/dL 12/17/2022 10:23 PM TRANSCRIBER LABORATORY POC Blood, Capillary BLOOD SPECIMEN / Unknown 12/17/2022 10:16 PM TRANSCRIBER 12/17/2022 10:23 PM TRANSCRIBER Arsenio Carlin Mark DO TABITHA JEFFERSON POCT Performing Organization Address [facility] [[email or web address]] Co de Phone Number LABORATORY [facility] Lab [address] Lab (1st floor, no room number) [place] [address], [place] [phone] * (ABNORMAL) Glucose by meter (12/17/2022 10:10 PM TRANSCRIBER) GLUCOSE BY METER POCT 16(LL) 70 - 99 mg/dL 12/17/2022 10:32 PM TRANSCRIBER LABORATORY POC Blood, Capillary BLOOD SPECIMEN / Unknown 12/17/2022 10:10 PM TRANSCRIBER 12/17/2022 10:32 PM TRANSCRIBER Arsenio Tesfaye Elyiz DO TABTIHA JEFFERSON POCT LABORATORY [facility] [address] Lab (1st floor, no room number) [place] [address], [facility] [phone] * (ABNORMAL) Glucose by meter (12/17/2022 10:07 PM TRANSCRIBER) GLUCOSE BY METER POCT 16(LL) 70 - 99 mg/dL 12/17/2022 10:15 PM TRANSCRIBER LABORATORY POC Comment:Dr/RN Notified Blood, Capillary BLOOD SPECIMEN / Unknown 12/17/2022 10:07 PM TRANSCRIBER 12/17/2022 10:15 PM TRANSCRIBER Arsenio Flores DO LAB - BEAKER POCT LABORATORY [facility] Lab [address] [facility] Lab (1st floor, no room number) [place] [address], [facility] [phone] * Helicobacter pylori Antigen Stool (12/17/2022 6:24 PM TRANSCRIBER) Helicobacter pylori Antigen Stool Negative Negative 12/18/2022 10:41 AM TRANSCRIBER SPECIALTY CORE/PROT/END O Comment:Negative for Helicob acter pylori antigen by enzyme immunoassay. A negative result indicates the absence of H. pylori antigen or that the level of antigen is below the level of detection. Stool RECTAL CONTENTS / Unknown Non-blood Collection / Unknown 12/17/2022 6:24 PM TRANSCRIBER 12/17/2022 6:36 PM TRANSCRIBER Adama Ramirez MD LAB - STOOLS OR DERABLES [facility] SPECIALTY CORE/PROT/ENDO [facility] Specialty Core/Prot/Endo [address] [facility] [address], [address] [place] [address], [facility] [phone] * Glucose by meter (12/17/2022 6:12 PM TRANSCRIBER) GLUCOSE BY METER POCT 70 70 - 99 mg/dL 12/19/2022 7:26 AM TRANSCRIBER RH LABORATORY POC Blood, Capillary BLOOD SPECIMEN / Unknown 12/17/2022 6:12 PM TRANSCRIBER 12/19/2022 7:26 AM TRANSCRIBER Arsenio GRIFFITH POCT LABORATORY [facility] [address] Lab (1st floor, no room number) [place] [address], [place] [phone] * (ABNORMAL) Glucose by meter (12/17/2022 12:40 PM TRANSCRIBER) GLUCOSE BY METER POCT 261(H) 70 - 99 mg/dL 12/17/2022 12:47 PM TRANSCRIBER LABORATORY POC Blood, Capillary BLOOD SPECIMEN / Unknown 12/17/2022 12:40 PM TRANSCRIBER 12/17/2022 12:47 PM TRANSCRIBER Arsenio GRIFFITH POCT Performing Organization Address City/[facility]/ZIP Co de Phone Number LABORATORY [facility] Lab [address] Lab (1st floor, no room number) [place] [address], [place] [phone] * (ABNORMAL) Glucose by meter (12/17/2022 8:08 AM TRANSCRIBER) GLUCOSE BY METER POCT 112(H) 70 - 99 mg/dL 12/17/2022 8:14 AM TRANSCRIBER LABORATORY POC Blood, Capillary BLOOD SPECIMEN / Unknown 12/17/2022 8:08 AM TRANSCRIBER 12/17/2022 8:14 AM TRANSCRIBER Arsenio GRIFFITH POCT LABORATORY [facility] [address] Lab (1st floor, no room number) [place] [address], [place] [phone] * (ABNORMAL) Renal panel (12/17/2022 6:31 AM TRANSCRIBER) Sodium 128(L) 135 - 145 mmol/L 12/17/2022 7:36 AM [facility] Comment:Reference intervals for this test were updated on 11/06/2022 to more accurately reflect our healthy population. There may be differences in the flagging of prior results with similar values performed with this method. Interpretation of those prior results can be made in the context of the updated reference intervals. Potassium 5.0 3.4 - 5.3 mmol/L 12/17/2022 7:36 AM [facility] Chloride 93(L) 98 - 107 mmol/L 12/17/2022 7:36 AM [facility] Carbon Dioxide (CO2) 25 22 - 29 mmol/L 12/17/2022 7:36 AM [facility] Anion Gap 10 7 - 15 mmol/L 12/17/2022 7:36 AM [facility] Glucose 86 70 - 99 mg/dL 12/17/2022 7:36 AM [facility] Urea Nitrogen 30.8(H) 8.0 - 23.0 mg/dL 12/17/2022 7:36 AM [facility] Creatinine 3.80(H) 0.51 - 0.95 mg/dL 12/17/2022 7:36 AM [facility] GFR Estimate 12(L) >60 mL/min/1. 73m2 12/17/2022 7:36 AM [facility] Calcium 7.8(L) 8.8 - 10.2 mg/dL 12/17/2022 7:36 AM [facility] Albumin 2.5(L) 3.5 - 5.2 g/dL 12/17/2022 7:36 AM [facility] Phosphorus 2.1(L) 2.5 - 4.5 mg/dL 12/17/2022 7:36 AM [facility] Blood STRUCTURE OF RIGHT HAND / Unknown Venipuncture / Unknown 12/17/2022 6:31 AM TRANSCRIBER 12/17/2022 6:49 AM [facility] David Treviño MD LAB - BLOOD ORDERABL ES LABORATORY [facility] Lab [address] Lab (1st floor, no room number) [place] [address], [facility] [phone] * Vancomycin level (12/17/2022 6:31 AM TRANSCRIBER) Vancomycin 16.0 ug/mL 12/17/2022 8:27 AM TRANSCRIBER LABORATORY Comment: Traditional Dosing Therapeutic Range: Trough 10-15 ug/mL Peak 20-40 ug/mL Critical: Greater than 25.0 ug/mL Blood STRUCTURE OF RIGHT HAND / Unknown Venipuncture / Unknown 12/17/2022 6:31 AM TRANSCRIBER 12/17/2022 6:49 AM TRANSCRIBER Arsenio Flores DO LAB - BLOOD ORDERAB LES [facility] Lab [address] Lab (1st floor, no room number) [place] [address], [facility] [phone] * (ABNORMAL) Hemoglobin (12/17/2022 6:31 AM TRANSCRIBER) Hemoglobin 7.1(L) 11.7 - 15.7 g/dL 12/17/2022 6:53 AM TRANSCRIBER LABORATORY Blood STRUCTURE OF RIGHT HAND / Unknown Venipuncture / Unknown 12/17/2022 6:31 AM TRANSCRIBER 12/17/2022 6:50 AM TRANSCRIBER Lisa Ospina DO LAB - BLOOD ORDERABL ES [facility] [address] Lab (1st floor, no room number) [place] [address], [facility] [phone] * (ABNORMAL) Glucose by meter (12/17/2022 2:12 AM TRANSCRIBER) GLUCOSE BY METER POCT 130(H) 70 - 99 mg/dL 12/17/2022 2:19 AM TRANSCRIBER LABORATORY POC Blood, Capillary BLOOD SPECIMEN / Unknown 12/17/2022 2:12 AM TRANSCRIBER 12/17/2022 2:19 AM TRANSCRIBER Arsenio DE LA ROSA - RONNY POCT LABORATORY [facility] Lab [address] Lab (1st floor, no room number) [place] [address], [place] [phone] * (ABNORMAL) Glucose by meter (12/16/2022 10:06 PM TRANSCRIBER) GLUCOSE BY METER POCT 170(H) 70 - 99 mg/dL 12/16/2022 10:12 PM TRANSCRIBER LABORATORY POC Blood, Capillary BLOOD SPECIMEN / Unknown 12/16/2022 10:06 PM TRANSCRIBER 12/16/2022 10:12 PM TRANSCRIBER Arsenio DE LA ROSA - RONNY POCT Performing Organization Address City/[facility]/ZIP Co de Phone Number LABORATORY [facility] Lab [address] Lab (1st floor, no room number) [place] [address], [place] [phone] * Glucose by meter (12/16/2022 5:31 PM TRANSCRIBER) GLUCOSE BY METER POCT 92 70 - 99 mg/dL 12/16/2022 5:38 PM TRANSCRIBER LABORATORY POC Blood, Capillary BLOOD SPECIMEN / Unknown 12/16/2022 5:31 PM TRANSCRIBER 12/16/2022 5:38 PM TRANSCRIBER Arsenio Flores DO LAB - RONNY POCT LABORATORY [facility] Lab [address] Lab (1st floor, no room number) [place] [address], [place] [phone] * (ABNORMAL) Glucose by meter (12/16/2022 3:41 PM TRANSCRIBER) GLUCOSE BY METER POCT 122(H) 70 - 99 mg/dL 12/16/2022 3:47 PM TRANSCRIBER RH LABORATORY POC Blood, Capillary BLOOD SPECIMEN / Unknown 12/16/2022 3:41 PM TRANSCRIBER 12/16/2022 3:47 PM TRANSCRIBER Arsenio Carlin Mark HINOJOSA TABITHA JEFFERSON POCT LABORATORY [facility] Lab [address] Lab (1st floor, no room number) [place] [address], [place] [phone] * (ABNORMAL) Glucose by meter (12/16/2022 11:21 AM TRANSCRIBER) GLUCOSE BY METER POCT 316(H) 70 - 99 mg/dL 12/16/2022 11:28 AM TRANSCRIBER LABORATORY POC Blood, Capillary BLOOD SPECIMEN / Unknown 12/16/2022 11:21 AM TRANSCRIBER 12/16/2022 11:28 AM TRANSCRIBER Arsenio Tesfaye Mark DO TABITHA JEFFERSON POCT Performing Organization Address City/[facility]/ZIP Co de Phone Number LABORATORY [facility] Lab [address] Lab (1st floor, no room number) [place] [address], [place] [phone] * (ABNORMAL) Glucose by meter (12/16/2022 7:24 AM TRANSCRIBER) GLUCOSE BY METER POCT 155(H) 70 - 99 mg/dL 12/16/2022 7:31 AM TRANSCRIBER LABORATORY POC Blood, Capillary BLOOD SPECIMEN / Unknown 12/16/2022 7:24 AM TRANSCRIBER 12/16/2022 7:31 AM TRANSCRIBER Arsenio Elyiz DO TABITHA JEFFERSON POCT LABORATORY [facility] Lab [address] Lab (1st floor, no room number) [place] [address], [place] [phone] * (ABNORMAL) Renal panel (12/16/2022 6:12 AM TRANSCRIBER) Sodium 135 135 - 145 mmol/L 12/16/2022 6:59 AM [facility] LABORATORY Comment:Reference intervals for this test were updated on 11/06/2022 to more accurately reflect our healthy population. There may be differences in the flagging of prior results with similar values performed with this method. Interpretation of those prior results can be made in the context of the updated reference intervals. Potassium 4.2 3.4 - 5.3 mmol/L 12/16/2022 6:59 AM [facility] LABORATORY Chloride 98 98 - 107 mmol/L 12/16/2022 6:59 AM [facility] LABORATORY Carbon Dioxide (CO2) 29 22 - 29 mmol/L 12/16/2022 6:59 AM [facility] LABORATORY Anion Gap 8 7 - 15 mmol/L 12/16/2022 6:59 AM [facility] LABORATORY Glucose 146(H) 70 - 99 mg/dL 12/16/2022 6:59 AM [facility] LABORATORY Urea Nitrogen 23.6(H) 8.0 - 23.0 mg/dL 12/16/2022 6:59 AM [facility] LABORATORY Creatinine 3.42(H) 0.51 - 0.95 mg/dL 12/16/2022 6:59 AM [facility] LABORATORY GFR Estimate 13(L) >60 mL/min/1. 73m2 12/16/2022 6:59 AM [facility] LABORATORY Calcium 7.9(L) 8.8 - 10.2 mg/dL 12/16/2022 6:59 AM [facility] LABORATORY Albumin 2.6(L) 3.5 - 5.2 g/dL 12/16/2022 6:59 AM [facility] LABORATORY Phosphorus 1.7(L) 2.5 - 4.5 mg/dL 12/16/2022 6:59 AM [facility] LABORATORY Blood STRUCTURE OF RIGHT HAND / Unknown Venipuncture / Unknown 12/16/2022 6:12 AM TRANSCRIBER 12/16/2022 6:24 AM [facility] David Treviño MD LAB - BLOOD ORDERABL ES LABORATORY [facility] Lab [address] Lab (1st floor, no room number) [place] [address], [facility] [phone] * (ABNORMAL) CBC with platelets (12/16/2022 6:12 AM TRANSCRIBER) WBC Count 14.8(H) 4.0 - 11.0 10e3/uL 12/16/2022 6:30 AM TRANSCRIBER RH LABORATORY RBC Count 2.31(L) 3.80 - 5.20 10e6/uL 12/16/2022 6:30 AM TRANSCRIBER RH LABORATORY Hemoglobin 7.2(L) 11.7 - 15.7 g/dL 12/16/2022 6:30 AM TRANSCRIBER LABORATORY Hematocrit 22.5(L) 35.0 - 47.0 % 12/16/2022 6:30 AM TRANSCRIBER LABORATORY MCV 97 78 - 100 fL 12/16/2022 6:30 AM TRANSCRIBER LABORATORY MCH 31.2 26.5 - 33.0 pg 12/16/2022 6:30 AM TRANSCRIBER LABORATORY MCHC 32.0 31.5 - 36.5 g/dL 12/16/2022 6:30 AM TRANSCRIBER LABORATORY RDW 19.5(H) 10.0 - 15.0 % 12/16/2022 6:30 AM TRANSCRIBER LABORATORY Platelet Count 237 150 - 450 10e3/uL 12/16/2022 6:30 AM TRANSCRIBER LABORATORY Blood STRUCTURE OF RIGHT HAND / Unknown Venipuncture / Unknown 12/16/2022 6:12 AM TRANSCRIBER 12/16/2022 6:24 AM TRANSCRIBER Nidia Yanez DO LAB - BLOOD ORDER JOSEFA RH LABORATORY [facility] Lab [address] Lab (1st floor, no room number) [place] [address], [facility] [phone] * Vancomycin level (12/16/2022 6:12 AM TRANSCRIBER) Pathologist [facility] Vancomycin 17.3 ug/mL 12/16/2022 7:11 AM TRANSCRIBER RH LABORATORY Comment: Traditional Dosing Therapeutic Range: Trough 10-15 ug/mL Peak 20-40 ug/mL Critical: Greater than 25.0 ug/mL Blood STRUCTURE OF RIGHT HAND / Unknown Venipuncture / Unknown 12/16/2022 6:12 AM TRANSCRIBER 12/16/2022 6:24 AM TRANSCRIBER Nidia Yanez DO LAB - BLOOD ORDER JOSEFA LABORATORY [facility] Care Lab [address] Lab (1st floor, no room number) [place] [address], [place] [phone] * (ABNORMAL) Glucose by meter (12/16/2022 1:02 AM CDT) GLUCOSE BY METER POCT 171(H) 70 - 99 mg/dL 12/16/2022 1:09 AM CDT LABORATORY POC Blood, Capillary BLOOD SPECIMEN / Unknown 12/16/2022 1:02 AM CDT 12/16/2022 1:09 AM CDT Arsenio Flores DO LAB - BEAKER POCT Performing Organization Address City/[facility]/ZIP Co de Phone Number LABORATORY [facility] Lab [address] Lab (1st floor, no room number) [place] [address], [place] [phone] * (ABNORMAL) Glucose by meter (12/15/2022 10:08 PM CDT) GLUCOSE BY METER POCT 226(H) 70 - 99 mg/dL 12/15/2022 10:14 PM CDT LABORATORY POC Blood, Capillary BLOOD SPECIMEN / Unknown 12/15/2022 10:08 PM CDT 12/15/2022 10:14 PM CDT Arsenio Flores DO LAB - BEAKER POCT LABORATORY [facility] Lab [address] Lab (1st floor, no room number) [place] [address], [place] [phone] * (ABNORMAL) Glucose by meter (12/15/2022 5:09 PM CDT) GLUCOSE BY METER POCT 275(H) 70 - 99 mg/dL 12/15/2022 5:16 PM CDT RH LABORATORY POC Blood, Capillary BLOOD SPECIMEN / Unknown 12/15/2022 5:09 PM CDT 12/15/2022 5:16 PM CDT Arsenio Flores DO LAB - BEKYRIE POCT LABORATORY [facility] [address] Lab (1st floor, no room number) [place] [address], [facility] [phone] * (ABNORMAL) Glucose by meter (12/15/2022 12:22 PM CDT) GLUCOSE BY METER POCT 231(H) 70 - 99 mg/dL 12/15/2022 12:29 PM CDT LABORATORY POC Blood, Capillary BLOOD SPECIMEN / Unknown 12/15/2022 12:22 PM CDT 12/15/2022 12:29 PM CDT Arsenio DE LA ROSA - RONNY POCT LABORATORY [facility] [address] Lab (1st floor, no room number) [place] [address], [facility] [phone] * (ABNORMAL) Glucose by meter (12/15/2022 7:18 AM CDT) GLUCOSE BY METER POCT 176(H) 70 - 99 mg/dL 12/15/2022 7:24 AM CDT RH LABORATORY POC Blood, Capillary BLOOD SPECIMEN / Unknown 12/15/2022 7:18 AM CDT 12/15/2022 7:24 AM CDT Arsenio DE LA ROSA - RONNY POCT RH LABORATORY [facility] Lab [address] [facility] Lab (1st floor, no room number) [place] [address], [facility] [phone] * (ABNORMAL) Renal panel (12/15/2022 5:45 AM CDT) Sodium 133(L) 135 - 145 mmol/L 12/15/2022 6:35 AM CDT RH LABORATORY Comment:Reference intervals for this test were updated on 11/06/2022 to more accurately reflect our healthy population. There may be differences in the flagging of prior results with similar values performed with this method. Interpretation of those prior results can be made in the context of the updated reference intervals. Potassium 3.9 3.4 - 5.3 mmol/L 12/15/2022 6:35 AM CDT LABORATORY Chloride 96(L) 98 - 107 mmol/L 12/15/2022 6:35 AM CDT LABORATORY Carbon Dioxide (CO2) 30(H) 22 - 29 mmol/L 12/15/2022 6:35 AM CDT LABORATORY Anion Gap 7 7 - 15 mmol/L 12/15/2022 6:35 AM CDT LABORATORY Glucose 183(H) 70 - 99 mg/dL 12/15/2022 6:35 AM CDT LABORATORY Urea Nitrogen 14.0 8.0 - 23.0 mg/dL 12/15/2022 6:35 AM CDT LABORATORY Creatinine 2.72(H) 0.51 - 0.95 mg/dL 12/15/2022 6:35 AM CDT RH LABORATORY GFR Estimate 18(L) >60 mL/min/1. 73m2 12/15/2022 6:35 AM CDT RH LABORATORY Calcium 8.6(L) 8.8 - 10.2 mg/dL 12/15/2022 6:35 AM CDT RH LABORATORY Albumin 2.6(L) 3.5 - 5.2 g/dL 12/15/2022 6:35 AM CDT LABORATORY Phosphorus 1.6(L) 2.5 - 4.5 mg/dL 12/15/2022 6:35 AM CDT RH LABORATORY Blood BLOOD SPECIMEN / Unknown Venipuncture / Unknown 12/15/2022 5:45 AM CDT 12/15/2022 6:03 AM CDT David Treviño MD LAB - BLOOD ORDERABL ES LABORATORY [facility] Lab [address] Lab (1st floor, no room number) [place] [address], [facility] [phone] * (ABNORMAL) CBC with platelets (12/15/2022 5:45 AM CDT) WBC Count 16.1(H) 4.0 - 11.0 10e3/uL 12/15/2022 6:13 AM CDT RH LABORATORY RBC Count 2.27(L) 3.80 - 5.20 10e6/uL 12/15/2022 6:13 AM CDT RH LABORATORY Hemoglobin 8.0(L) 11.7 - 15.7 g/dL 12/15/2022 6:13 AM CDT RH LABORATORY Hematocrit 22.4(L) 35.0 - 47.0 % 12/15/2022 6:13 AM CDT RH LABORATORY MCV 99 78 - 100 fL 12/15/2022 6:13 AM CDT RH LABORATORY MCH 35.2(H) 26.5 - 33.0 pg 12/15/2022 6:13 AM CDT RH LABORATORY MCHC 35.7 31.5 - 36.5 g/dL 12/15/2022 6:13 AM CDT RH LABORATORY RDW 20.5(H) 10.0 - 15.0 % 12/15/2022 6:13 AM CDT RH LABORATORY Platelet Count 265 150 - 450 10e3/uL 12/15/2022 6:13 AM CDT RH LABORATORY Blood BLOOD SPECIMEN / Unknown Venipuncture / Unknown 12/15/2022 5:45 AM CDT 12/15/2022 6:03 AM CDT Nidia Yanez DO LAB - BLOOD ORDER JOSEFA [facility] Lab [address] Lab (1st floor, no room number) [place] [address], [place] [phone] * (ABNORMAL) Glucose by meter (12/15/2022 2:32 AM CDT) GLUCOSE BY METER POCT 159(H) 70 - 99 mg/dL 12/15/2022 2:39 AM CDT RH LABORATORY POC Blood, Capillary BLOOD SPECIMEN / Unknown 12/15/2022 2:32 AM CDT 12/15/2022 2:39 AM CDT Arsenio DE LA ROSA - JOSEAKER POCT LABORATORY [facility] Lab [address] Lab (1st floor, no room number) [place] [address], [facility] [phone] * (ABNORMAL) Glucose by meter (12/14/2022 10:04 PM CDT) GLUCOSE BY METER POCT 211(H) 70 - 99 mg/dL 12/14/2022 10:11 PM CDT LABORATORY POC Blood, Capillary BLOOD SPECIMEN / Unknown 12/14/2022 10:04 PM CDT 12/14/2022 10:11 PM CDT Arsenio DE LA ROSA - BEAKER POCT LABORATORY [facility] Lab [address] Lab (1st floor, no room number) [place] [address], [place] [phone] * (ABNORMAL) Glucose by meter (12/14/2022 6:42 PM CDT) GLUCOSE BY METER POCT 147(H) 70 - 99 mg/dL 12/14/2022 6:49 PM CDT RH LABORATORY POC Blood, Capillary BLOOD SPECIMEN / Unknown 12/14/2022 6:42 PM CDT 12/14/2022 6:49 PM CDT Arsenio Carlin Mark DO LAB - BEAKER POCT LABORATORY [facility] Lab [address] Lab (1st floor, no room number) [place] [address], [facility] [phone] * (ABNORMAL) Glucose by meter (12/14/2022 1:10 PM CDT) GLUCOSE BY METER POCT 165(H) 70 - 99 mg/dL 12/14/2022 1:17 PM CDT LABORATORY POC Blood, Capillary BLOOD SPECIMEN / Unknown 12/14/2022 1:10 PM CDT 12/14/2022 1:17 PM CDT Arsenio Flores DO LAB - [facility] POCT Performing Organization Address City/[facility]/ZIP Co de Phone Number LABORATORY [facility] Lab [address] Lab (1st floor, no room number) [place] [address], [facility] [phone] * UPPER GI ENDOSCOPY (12/14/2022 11:52 AM CDT) Pathologist [facility] Upper GI Endoscopy [facility] Patient Name: Maricruz Vanegas ? Procedure Date: 12/14/2022 11:52 AM ? [...] verified by the physician, ?the nurse, the regulatory and compliance technician and the vascular technician in ?the procedure room. Mental Status [...] # [id number], [place]ora # ?[id number], SN # [id number] was introduced through the mouth, ?and advanced [...] Note Initiated On: 12/14/2022 11:52 AM MRN: ?[id number] Procedure Date: ? 12/14/2022 11:52:38 AM Total Procedure Duration: 0 hours 8 minutes 56 seconds Estimated Blood Loss: ? Scope In: 12:35:58 PM Scope Out: 12:44:54 PM RADIOLOGY RESULTS 12/14/2022 11:5 2 AM CDT Adama Ramirez MD PROCEDURES Performing Organization Address [facility] [[email or web address]] Co de Phone Number RADIOLOGY RESULTS * (ABNORMAL) Glucose by meter (12/14/2022 11:03 AM CDT) GLUCOSE BY METER POCT 115(H) 70 - 99 mg/dL 12/14/2022 11:10 AM CDT RH LABORATORY POC Comment:Dr/RN Notified Blood, Capillary BLOOD SPECIMEN / Unknown 12/14/2022 11:03 AM CDT 12/14/2022 11:10 AM CDT [facility] Performing Organization Address [facility] de Phone Number [facility] Lab [address] [facility] Lab (1st floor, no room number) [place] [address], [facility] [phone] * (ABNORMAL) Glucose by meter (12/14/2022 7:50 AM CDT) GLUCOSE BY METER POCT 122(H) 70 - 99 mg/dL 12/14/2022 7:56 AM CDT LABORATORY POC Blood, Capillary BLOOD SPECIMEN / Unknown 12/14/2022 7:50 AM CDT 12/14/2022 7:56 AM CDT Arsenio DE LA ROSA - RONNY POCT Performing Organization Address [facility]/ZIP Co de Phone Number RH LABORATORY [facility] Lab [address] [facility] Lab (1st floor, no room number) [place] [address], [facility] [phone] * Genotype Partial RhD (12/14/2022 5:45 AM CDT) See Scanned Result GENOTYPE PARTIAL RHD-Scanned 01/01/2023 8:12 AM [facility] Blood BLOOD SPECIMEN / Unknown Venipuncture / Unknown 12/14/2022 5:45 AM CDT 12/14/2022 6:02 AM CDT Arsenio Flores DO LAB - BLOOD ORDERAB LES [facility] [address] [place] [address], [facility] [phone] * (ABNORMAL) Renal panel (12/14/2022 5:45 AM CDT) Sodium 137 135 - 145 mmol/L 12/14/2022 6:30 AM CDT RH LABORATORY Comment:Reference intervals for this test were updated on 11/06/2022 to more accurately reflect our healthy population. There may be differences in the flagging of prior results with similar values performed with this method. Interpretation of those prior results can be made in the context of the updated reference intervals. Potassium 3.3(L) 3.4 - 5.3 mmol/L 12/14/2022 6:30 AM CDT LABORATORY Chloride 98 98 - 107 mmol/L 12/14/2022 6:30 AM CDT RH LABORATORY Carbon Dioxide (CO2) 28 22 - 29 mmol/L 12/14/2022 6:30 AM CDT RH LABORATORY Anion Gap 11 7 - 15 mmol/L 12/14/2022 6:30 AM CDT LABORATORY Glucose 106(H) 70 - 99 mg/dL 12/14/2022 6:30 AM CDT RH LABORATORY Urea Nitrogen 30.3(H) 8.0 - 23.0 mg/dL 12/14/2022 6:30 AM CDT LABORATORY Creatinine 3.40(H) 0.51 - 0.95 mg/dL 12/14/2022 6:30 AM CDT RH LABORATORY GFR Estimate 13(L) >60 mL/min/1. 73m2 12/14/2022 6:30 AM CDT RH LABORATORY Calcium 8.3(L) 8.8 - 10.2 mg/dL 12/14/2022 6:30 AM CDT RH LABORATORY Albumin 2.9(L) 3.5 - 5.2 g/dL 12/14/2022 6:30 AM CDT RH LABORATORY Phosphorus 2.2(L) 2.5 - 4.5 mg/dL 12/14/2022 6:30 AM CDT RH LABORATORY Blood BLOOD SPECIMEN / Unknown Venipuncture / Unknown 12/14/2022 5:45 AM CDT 12/14/2022 6:02 AM CDT David Treviño MD LAB - BLOOD ORDERABL ES RH LABORATORY [facility] Lab [address] Lab (1st floor, no room number) [place] [address], [facility] [phone] * (ABNORMAL) CBC with platelets (12/14/2022 5:45 AM CDT) WBC Count 19.4(H) 4.0 - 11.0 10e3/uL 12/14/2022 6:09 AM CDT RH LABORATORY RBC Count 2.41(L) 3.80 - 5.20 10e6/uL 12/14/2022 6:09 AM CDT RH LABORATORY Hemoglobin 8.2(L) 11.7 - 15.7 g/dL 12/14/2022 6:09 AM CDT RH LABORATORY Hematocrit 23.2(L) 35.0 - 47.0 % 12/14/2022 6:09 AM CDT RH LABORATORY MCV 96 78 - 100 fL 12/14/2022 6:09 AM CDT RH LABORATORY MCH 34.0(H) 26.5 - 33.0 pg 12/14/2022 6:09 AM CDT RH LABORATORY MCHC 35.3 31.5 - 36.5 g/dL 12/14/2022 6:09 AM CDT RH LABORATORY RDW 20.3(H) 10.0 - 15.0 % 12/14/2022 6:09 AM CDT LABORATORY Platelet Count 280 150 - 450 10e3/uL 12/14/2022 6:09 AM CDT RH LABORATORY Blood BLOOD SPECIMEN / Unknown Venipuncture / Unknown 12/14/2022 5:45 AM CDT 12/14/2022 6:02 AM CDT Arsenio Flores DO LAB - BLOOD ORDERAB LES LABORATORY [facility] Lab [address] Lab (1st floor, no room number) [place] [address], [place] [phone] * (ABNORMAL) Glucose by meter (12/14/2022 2:02 AM CDT) GLUCOSE BY METER POCT 132(H) 70 - 99 mg/dL 12/14/2022 2:09 AM CDT LABORATORY POC Blood, Capillary BLOOD SPECIMEN / Unknown 12/14/2022 2:02 AM CDT 12/14/2022 2:09 AM CDT Arsenio Flores DO LAB - BEAKER POCT LABORATORY POC [facility] Care Lab [address] Lab (1st floor, no room number) [place] [address], [place] [phone] * Transfuse red blood cells (unit) (12/13/2022 11:17 PM CDT) Jason Tapia MD BLOOD TRANSFUSI ON ORDERABLES * Transfuse red blood cells (unit), 2 Units (12/13/2022 11:17 PM CDT) Jason Tapia MD BLOOD TRANSFUSI ON ORDERABLES * (ABNORMAL) Glucose by meter (12/13/2022 10:10 PM CDT) GLUCOSE BY METER POCT 199(H) 70 - 99 mg/dL 12/13/2022 10:16 PM CDT RH LABORATORY POC Blood, Capillary BLOOD SPECIMEN / Unknown 12/13/2022 10:10 PM CDT 12/13/2022 10:16 PM CDT Arsenio DE LA ROSA - BEAKER POCT LABORATORY POC [facility] Lab [address] Lab (1st floor, no room number) [place] [phone], [facility] [phone] * (ABNORMAL) Hemoglobin (12/13/2022 6:14 PM CDT) Hemoglobin 5.9(LL) 11.7 - 15.7 g/dL 12/13/2022 6:32 PM CDT RH LABORATORY Blood STRUCTURE OF RIGHT UPPER LIMB / Unknown Venipuncture / Unknown 12/13/2022 6:14 PM CDT 12/13/2022 6:19 PM CDT Arsenio Flores DO LAB - BLOOD ORDERAB LES Performing Organization Address [facility]/ZIP Co de Phone Number [facility] Lab [address] [facility] Lab (1st floor, no room number) [place] [phone], [facility] [phone] * Transfuse red blood cells (unit) (12/13/2022 6:06 PM CDT) Jason Tapia MD BLOOD TRANSFUSI ON ORDERABLES * (ABNORMAL) Glucose by meter (12/13/2022 5:44 PM CDT) GLUCOSE BY METER POCT 171(H) 70 - 99 mg/dL 12/13/2022 5:50 PM CDT RH LABORATORY POC Blood, Capillary BLOOD SPECIMEN / Unknown 12/13/2022 5:44 PM CDT 12/13/2022 5:50 PM CDT Arsenio DE LA ROSA - BEKYRIE POCT LABORATORY POC [facility] Lab [address] [facility] Lab (1st floor, no room number) [place] [address], [facility] [phone] * (ABNORMAL) Basic metabolic panel (12/13/2022 12:33 PM CDT) Sodium 137 135 - 145 mmol/L 12/13/2022 2:22 PM CDT LABORATORY Comment:Reference intervals for this test were updated on 11/06/2022 to more accurately reflect our healthy population. There may be differences in the flagging of prior results with similar values performed with this method. Interpretation of those prior results can be made in the context of the updated reference intervals. Potassium 3.5 3.4 - 5.3 mmol/L 12/13/2022 2:22 PM CDT LABORATORY Chloride 96(L) 98 - 107 mmol/L 12/13/2022 2:22 PM CDT LABORATORY Carbon Dioxide (CO2) 27 22 - 29 mmol/L 12/13/2022 2:22 PM CDT LABORATORY Anion Gap 14 7 - 15 mmol/L 12/13/2022 2:22 PM CDT LABORATORY Urea Nitrogen 28.7(H) 8.0 - 23.0 mg/dL 12/13/2022 2:22 PM CDT LABORATORY Creatinine 2.82(H) 0.51 - 0.95 mg/dL 12/13/2022 2:22 PM CDT LABORATORY GFR Estimate 17(L) >60 mL/min/1. 73m2 12/13/2022 2:22 PM CDT LABORATORY Calcium 7.6(L) 8.8 - 10.2 mg/dL 12/13/2022 2:22 PM CDT LABORATORY Glucose 239(H) 70 - 99 mg/dL 12/13/2022 2:22 PM CDT LABORATORY Blood STRUCTURE OF RIGHT HAND / Unknown Venipuncture / Unknown 12/13/2022 12:33 PM CDT 12/13/2022 12:54 PM CDT David Treviño MD LAB - BLOOD ORDERABL ES LABORATORY [facility] [address] Lab (1st floor, no room number) [place] [address], [facility] [phone] * (ABNORMAL) Glucose by meter (12/13/2022 10:59 AM CDT) GLUCOSE BY METER POCT 184(H) 70 - 99 mg/dL 12/13/2022 11:11 AM CDT LABORATORY POC Blood, Capillary BLOOD SPECIMEN / Unknown 12/13/2022 10:59 AM CDT 12/13/2022 11:11 AM CDT Arsenio Flores DO LAB - BEAKER POCT LABORATORY [facility] [address] Lab (1st floor, no room number) [place] [address], [facility] [phone] * (ABNORMAL) Hemoglobin (12/13/2022 10:56 AM CDT) Hemoglobin 3.9(LL) 11.7 - 15.7 g/dL 12/13/2022 12:00 PM CDT LABORATORY Blood STRUCTURE OF RIGHT HAND / Unknown Venipuncture / Unknown 12/13/2022 10:56 AM CDT 12/13/2022 11:01 AM CDT Connie Smith MD LAB - BLOOD ORDERABL ES [facility] [address] Lab (1st floor, no room number) [place] [address], [facility] [phone] * (ABNORMAL) Haptoglobin (12/13/2022 6:24 AM CDT) Haptoglobin 283(H) 32 - 197 mg/dL 12/13/2022 12:07 PM CDT SPECIALTY CORE/PROT/ENDO Blood STRUCTURE OF RIGHT UPPER LIMB / Unknown Venipuncture / Unknown 12/13/2022 6:24 AM CDT 12/13/2022 6:29 AM CDT Arsenio Tesfaye Flores DO LAB - BLOOD ORDERAB LES [facility] SPECIALTY CORE/PROT/ENDO [facility] Specialty Core/Prot/Endo [address] [facility], [address], [place] [address], [facility] [phone] * (ABNORMAL) Glucose by meter (12/13/2022 6:07 AM CDT) GLUCOSE BY METER POCT 118(H) 70 - 99 mg/dL 12/13/2022 6:14 AM CDT RH LABORATORY POC Blood, Capillary BLOOD SPECIMEN / Unknown 12/13/2022 6:07 AM CDT 12/13/2022 6:14 AM CDT Arsenio Flores DO LAB - BEAKER POCT LABORATORY [facility] [address] Lab (1st floor, no room number) [place] [address], [facility] [phone] * Extra Blood Bank Purple Top Tube (12/13/2022 5:25 AM CDT) Hold Specimen JIC 12/13/2022 6:31 AM CDT RH LABORATORY Blood BLOOD SPECIMEN / Unknown Venipuncture / Unknown 12/13/2022 5:25 AM CDT 12/13/2022 5:25 AM CDT Arsenio Flores DO LAB - BLOOD ORDERAB LES [facility] Lab [address] Lab (1st floor, no room number) [place] [address], [place] [phone] * Morphology Tracking (12/13/2022 5:18 AM CDT) Blood STRUCTURE OF RIGHT HAND / Unknown Venipuncture / Unknown 12/13/2022 5:18 AM CDT 12/13/2022 5:26 AM CDT Jason Tapia MD LAB - BLOOD ORD ERABLES LABORATORY [facility] [address] Lab (1st floor, no room number) [place] [address], [facility] [phone] * (ABNORMAL) Reticulocyte count (12/13/2022 5:18 AM CDT) % Reticulocyte 7.1(H) 0.5 - 2.0 % 12/13/2022 6:12 AM CDT RH LABORATORY Absolute Reticulocyte 0.077 0.025 - 0.095 10e6/uL 12/13/2022 6:12 AM CDT RH LABORATORY Blood STRUCTURE OF RIGHT HAND / Unknown Venipuncture / Unknown 12/13/2022 5:18 AM CDT 12/13/2022 5:26 AM CDT Jason Tapia MD LAB - BLOOD ORD ERABLES LABORATORY [facility] [address] Lab (1st floor, no room number) [place] [address], [facility] [phone] * (ABNORMAL) CBC with platelets and differential (12/13/2022 5:18 AM CDT) WBC Count 17.3(H) 4.0 - 11.0 10e3/uL 12/13/2022 6:29 AM CDT RH LABORATORY RBC Count 1.02(L) 3.80 - 5.20 10e6/uL 12/13/2022 6:29 AM CDT RH LABORATORY Hemoglobin 3.8(LL) 11.7 - 15.7 g/dL 12/13/2022 6:29 AM CDT RH LABORATORY Hematocrit 10.6(L) 35.0 - 47.0 % 12/13/2022 6:29 AM CDT RH LABORATORY MCV 104(H) 78 - 100 fL 12/13/2022 6:29 AM CDT RH LABORATORY MCH 37.3(H) 26.5 - 33.0 pg 12/13/2022 6:29 AM CDT RH LABORATORY MCHC 35.8 31.5 - 36.5 g/dL 12/13/2022 6:29 AM CDT RH LABORATORY RDW 16.4(H) 10.0 - 15.0 % 12/13/2022 6:29 AM CDT RH LABORATORY Platelet Count 237 150 - 450 10e3/uL 12/13/2022 6:29 AM CDT RH LABORATORY % Neutrophils 84 % 12/13/2022 6:29 AM CDT RH LABORATORY % Lymphocytes 6 % 12/13/2022 6:29 AM CDT RH LABORATORY % Monocytes 8 % 12/13/2022 6:29 AM CDT RH LABORATORY % Eosinophils 0 % 12/13/2022 6:29 AM CDT RH LABORATORY % Basophils 0 % 12/13/2022 6:29 AM CDT RH LABORATORY % Immature Granulocytes 2 % 12/13/2022 6:29 AM CDT RH LABORATORY NRBCs per 100 WBC 2(H) <1 /100 023 6:29 AM CDT RH LABORATORY Absolute Neutrophils 14.5(H) 1.6 - 8.3 10e3/uL 12/13/2022 6:29 AM CDT RH LABORATORY Absolute Lymphocytes 1.0 0.8 - 5.3 10e3/uL 12/13/2022 6:29 AM CDT RH LABORATORY Absolute Monocytes 1.3 0.0 - 1.3 10e3/uL 12/13/2022 6:29 AM CDT RH LABORATORY Absolute Eosinophils 0.0 0.0 - 0.7 10e3/uL 12/13/2022 6:29 AM CDT RH LABORATORY Absolute Basophils 0.0 0.0 - 0.2 10e3/uL 12/13/2022 6:29 AM CDT RH LABORATORY Absolute Immature Granulocytes 0.4 <=0.4 10e3/uL 12/13/2022 6:29 AM CDT RH LABORATORY Absolute NRBCs 0.3 10e3/uL 12/13/2022 6:29 AM CDT RH LABORATORY Blood STRUCTURE OF RIGHT HAND / Unknown Venipuncture / Unknown 12/13/2022 5:18 AM CDT 12/13/2022 5:26 AM CDT Jason Tapia MD LAB - BLOOD ORD ERABLES [facility] Lab [address] Lab (1st floor, no room number) [place] [address], [facility] [phone] * Bld morphology pathology review (12/13/2022 5:18 [...] Clinical correlation is recommended. 12/13/2022 10:32 AM T [facility] PATHOLOGY LAB Peripheral Smear A microscopic examination is performed. 12/13/2022 10:32 AM T [facility] PATHOLOGY LAB Peripheral Hematologic Data Latest Reference [...] than 50: Marked thrombocytopenia 12/13/2022 10:32 AM [facility] PATHOLOGY LAB Performing Labs The technical component of this testing was completed at [facility], [facility] and [facility] 12/13/2022 10:32 AM [facility] PATHOLOGY LAB Blood BLOOD SPECIMEN / Unknown [...] for interpretation. Jason Tapia MD [facility] PATH[facility] LAB [facility] Lab [address] 1st Floor, [address] [place] [address] * Extra Blood Bank Purple Top Tube (12/13/2022 5:18 AM CDT) Hold Specimen JIC 12/13/2022 6:31 AM CDT LABORATORY Blood STRUCTURE OF RIGHT HAND / Unknown Venipuncture / Unknown 12/13/2022 5:18 AM CDT 12/13/2022 5:30 AM CDT Arsenio Flores DO LAB - BLOOD ORDERAB LES LABORATORY [facility] [address] Lab (1st floor, no room number) [place] [address], [facility] [phone] * Folate (12/13/2022 5:18 AM CDT) Folic Acid 10.3 4.6 - 34.8 ng/mL 12/13/2022 9:11 AM CDT [facility] LABORATORY Blood STRUCTURE OF RIGHT HAND / Unknown Venipuncture / Unknown 12/13/2022 5:18 AM CDT 12/13/2022 5:26 AM CDT Arsenio Flores DO LAB - BLOOD ORDERAB LES [facility] LABORATORY [facility] [facility] [address] [facility], [address] [place] [address], [place] [phone] * Lactic acid whole blood (12/13/2022 5:18 AM CDT) Lactic Acid 0.9 0.7 - 2.0 mmol/L 12/13/2022 5:47 AM CDT LABORATORY Blood STRUCTURE OF RIGHT HAND / Unknown Venipuncture / Unknown 12/13/2022 5:18 AM CDT 12/13/2022 5:24 AM CDT Jason Tapia MD LAB - BLOOD ORD ERABLES LABORATORY [facility] [address] Lab (1st floor, no room number) [place] [address], [place] [phone] * (ABNORMAL) Glucose by meter (12/13/2022 2:16 AM CDT) GLUCOSE BY METER POCT 169(H) 70 - 99 mg/dL 12/13/2022 2:22 AM CDT LABORATORY POC Blood, Capillary BLOOD SPECIMEN / Unknown 12/13/2022 2:16 AM CDT 12/13/2022 2:22 AM CDT Arsenio DE LA ROSA - BEAKER POCT LABORATORY POC [facility] [address] Lab (1st floor, no room number) [place] [address], [place] [phone] * Other Laboratory; [facility]; Reference Lab Workup (Laboratory Miscellaneous Order) (12/13/2022 1:49 AM CDT) See Scanned Result LABORATORY MISCELLANEOUS ORDER-Scanned 12/24/2022 8:35 AM TRANSCRIBER MISCELLANEOUS TESTING Blood BLOOD SPECIMEN / Unknown [...] CDT EXAM: XR CHEST 2 VIEWS LOCATION: [facility] DATE: 12/13/2022 INDICATION: cough COMPARISON: 11/29/2022 Procedure Note Rajan Card MD - 12/13/2022 EXAM: XR CHEST 2 VIEWS LOCATION: [facility] DATE: 12/13/2022 INDICATION: cough COMPARISON: 11/29/2022 IMPRESSION: Heart size within normal limits. Calcified aortic arch. Mildstreaky left basilar atelectasis or infiltrate. The right lung is clear.No pneumothorax. Jason Tapia MD IMG DIAGNOSTIC IMAGING ORDERABLES * CTA Abdomen Pelvis with Contrast (12/13/2022 1:10 AM CDT) Anatomical Region Laterality Modality Abdomen/Pelvis, SUBRAD IR CA OCEDURE, UMP CT CTA, RAD CT Computed [...] EXAM: CTA ABDOMEN PELVIS WITH CONTRAST LOCATION: [facility] DATE: 12/13/2022 INDICATION: acute on chronic anemia, melena, please do GI bleed protocol. ??ESRD, on hemodialysis, ??Recent removal of peritoneal dialysis catheter COMPARISON: 11/28/2022 TECHNIQUE: CT angiogram abdomen pelvis during arterial phase of injection of IV contrast. 2D and 3D MIP reconstructions were performed by the manufacturing engineering technologist. Dose reduction techniques were used. [...] EXAM: CTA ABDOMEN PELVIS WITH CONTRAST LOCATION: [facility] DATE: 12/13/2022 INDICATION: acute on chronic anemia, [...] Culture Hand, Right (12/12/2022 11:49 PM CDT) [facility] Culture No Growth 12/18/2022 1:16 AM TRANSCRIBER UU IDD LABORATORY Blood STRUCTURE OF RIGHT HAND / Unknown Venipuncture / Unknown 12/12/2022 11:49 PM CDT 12/13/2022 12:08 AM CDT Jason Tapia MD LAB - MICRO GEN ERAL ORDERABLES UU IDD LABORATORY [facility] Inf. Diseases Diag. Lab [address] [place] [address], [facility] [phone] * EKG 12 lead (12/12/2022 11:09 PM CDT) [facility] Systolic Blood Pressure mmHg RADIOLOGY RESULTS Diastolic Blood Pressure mmHg RADIOLOGY RESULTS Ventricular Rate 72 BPM RAD IOLOGY RESULTS Atrial Rate 72 BPM RADIOLOG Y RESULTS CA Interval 198 ms RADIOLOG Y RESULTS QRS Duration 80 ms RADIOLO GY RESULTS QT 322 ms RADIOLOGY RESULTS QTc 352 ms RADIOLOGY RESULTS P [place] 75 degrees RADIOLOGY RESULTS R AXIS 44 degrees RADIOLOGY RESULTS T [place] -85 degrees RADIOLOGY RESULTS Interpretation ECG Sinus [...] blood cells (unit) (12/12/2022 11:07 PM CDT) [facility] Blood Component Type Red Blood Cells RH BLOOD BANK Product Code [id number] RH BLOO D BANK Unit Status Released RH BLOOD BANK Unit Number [id number] RH B LOOD BANK CROSSMATCH COMPATIBLE RH BLOOD BANK CODING SYSTEM [id number] RH BLO OD BANK UNIT ABO/RH O- RH BLOOD BANK UNIT TYPE ISBT 9500 RH BL OOD BANK 12/12/2022 11:0 7 PM CDT Jason Tapia MD BLOOD BANK PROD UCT ORDERABLES Performing Organization Address [facility]/ZIP Co de Phone Number BLOOD BANK [address] * Prepare red blood cells (unit) (12/12/2022 11:07 PM CDT) Blood Component Type Red Blood Cells RH BLOOD BANK Product Code [id number] RH BLOO D BANK Unit Status Transfused RH BLOO D BANK Unit Number [id number] RH B LOOD BANK CROSSMATCH COMPATIBLE RH BLOOD BANK CODING SYSTEM [id number] RH BLO OD BANK ISSUE DATE AND TIME [id number] RH BLOOD BANK UNIT ABO/RH O- RH BLOOD BANK UNIT TYPE ISBT 9500 RH BL OOD BANK 12/12/2022 11:0 7 PM CDT Jason Tapia MD BLOOD BANK PROD UCT ORDERABLES Performing Organization Address [facility] [[email or web address]] Co de Phone Number RH BLOOD BANK [phone] * Prepare red blood cells (unit) (12/12/2022 11:07 PM CDT) Blood Component Type Red Blood Cells RH BLOOD BANK Product Code [id number] RH BLOO D BANK Unit Status Transfused RH BLOO D BANK Unit Number [id number] RH B LOOD BANK CROSSMATCH COMPATIBLE RH BLOOD BANK CODING SYSTEM [id number] RH BLO OD BANK ISSUE DATE AND TIME [id number] RH BLOOD BANK UNIT ABO/RH O- RH BLOOD BANK UNIT TYPE ISBT 9500 RH BL OOD BANK 12/12/2022 11:0 7 PM CDT Jason Tapia MD BLOOD BANK PROD UCT ORDERABLES BLOOD BANK [address] [place] [address], [facility] * (ABNORMAL) iStat Gases (lactate) venous, POCT [...] 12/12/2022 11:07 PM CDT Jason Tapia MD [facility] Performing Organization Address [facility]/ZIP Co de Phone Number [facility] Lab [address] Lab (1st floor, no room number) [place] [address], [facility] [phone] * Stool: occult blood (12/12/2022 11:03 PM CDT) Occult Blood Negative Negative JENNIFER 12/12/2022 11:32 PM CDT LABORATORY Stool RECTAL CONTENTS / Unknown Non-blood Collection / Unknown 12/12/2022 11:03 PM CDT 12/12/2022 11:11 PM CDT Jason Tapia MD LAB - STOOLS OR DERABLES RH LABORATORY [facility] Lab [address] Lab (1st floor, no room number) [place] [address], [facility] [phone] * (ABNORMAL) Hemoglobin (12/12/2022 11:02 PM CDT) Hemoglobin 4.2(LL) 11.7 - 15.7 g/dL 12/12/2022 11:28 PM CDT RH LABORATORY Blood BLOOD SPECIMEN / Unknown Venipuncture / Unknown 12/12/2022 11:02 PM CDT 12/12/2022 11:09 PM CDT Jason Tapia MD LAB - BLOOD ORD ERABLES [facility] Lab [address] Lab (1st floor, no room number) [place] [address], [facility] [phone] * Ammonia (12/12/2022 11:02 PM CDT) Ammonia 19 11 - 51 umol/L 12/12/2022 11:35 PM CDT RH LABORATORY Blood BLOOD SPECIMEN / Unknown Venipuncture / Unknown 12/12/2022 11:02 PM CDT 12/12/2022 11:09 PM CDT Jason Tapia MD LAB - BLOOD ORD ERABLES [facility] [address] Lab (1st floor, no room number) [place] [address], [facility] [phone] * (ABNORMAL) Adult Type and Screen (12/12/2022 10:42 PM CDT) ABO/RH(D) O POS 12/12/2022 10:27 PM CDT RH BLOOD BANK Antibody Screen Positive(A) Negative 12/13/19 10:27 PM CDT RH BLOOD BANK Comment:Delay in availabilit y of Red Cells called to [facility] @ 7755 11.1.23 SPECIMEN EXPIRATION DATE [id number] 12/12/2022 10:27 PM CDT BLOOD BANK Blood BLOOD SPECIMEN / Unknown Venipuncture / Unknown 12/12/2022 10:42 PM CDT 12/12/2022 10:45 PM CDT Jason Tapia MD LAB - BLOOD BAN K TEST ORDER BLOOD BANK [address] [place] [address] * (ABNORMAL) Lactate Dehydrogenase (12/12/2022 9:49 PM CDT) Lactate Dehydrogenase 290(H) 0 - 250 U/L 12/13/2022 3:49 AM CDT UU LABORATORY Blood BLOOD SPECIMEN / Unknown Venipuncture / Unknown 12/12/2022 9:49 PM CDT 12/12/2022 9:57 PM CDT Arsenio Flores DO LAB - BLOOD ORDERAB LES Performing Organization Address City/[facility]/ZIP Co de Phone Number UU LABORATORY [facility] [address] [facility], [address] [phone], [facility] [phone] * (ABNORMAL) TSH (12/12/2022 9:49 PM CDT) TSH 5.18(H) 0.30 - 4.20 uIU/mL 12/13/2022 5:43 AM CDT UU LABORATORY Blood BLOOD SPECIMEN / Unknown Venipuncture / Unknown 12/12/2022 9:49 PM CDT 12/12/2022 9:57 PM CDT Arsenio Flores DO LAB - BLOOD ORDERAB LES [facility] LABORATORY [facility] [address] [facility] [facility], [address] [phone], [facility] [phone] * Vitamin B12 (12/12/2022 9:49 PM CDT) Vitamin B12 1,105 232 - 1,245 pg/mL 12/13/2022 3:21 AM CDT UU LABORATORY Blood BLOOD SPECIMEN / Unknown Venipuncture / Unknown 12/12/2022 9:49 PM CDT 12/12/2022 9:57 PM CDT Arsenio Flores DO LAB - BLOOD ORDERAB LES [facility] LABORATORY [facility] [address] [facility], [address] [place] [address], [place] [phone] * (ABNORMAL) Iron and iron binding capacity (12/12/2022 9:49 PM CDT) Iron 129 37 - 145 ug/dL 12/13/2022 12:17 AM CDT RH LABORATORY Iron Binding Capacity 170(L) 240 - 430 ug/dL 12/13/2022 12:17 AM CDT RH LABORATORY Iron Sat Index 76(H) 15 - 46 % 12/13/2022 12:17 AM CDT LABORATORY Blood BLOOD SPECIMEN / Unknown Venipuncture / Unknown 12/12/2022 9:49 PM CDT 12/12/2022 9:57 PM CDT Jason Tapia MD LAB - BLOOD ORD ERABLES LABORATORY [facility] [address] [facility] Lab (1st floor, no room number) [place] [address], [place] [phone] * (ABNORMAL) Ferritin (12/12/2022 9:49 PM CDT) Ferritin 6,492(H) 11 - 328 ng/mL 12/13/2022 3:48 AM CDT UU LABORATORY Blood BLOOD SPECIMEN / Unknown Venipuncture / Unknown 12/12/2022 9:49 PM CDT 12/12/2022 9:57 PM CDT Jason Tapia MD LAB - BLOOD ORD ERABLES UU LABORATORY [facility] [address] [facility], [address] [place] [address], [place] [phone] * T4 free (12/12/2022 9:49 PM CDT) Free T4 1.14 0.90 - 1.70 ng/dL 12/12/2022 11:55 PM CDT RH LABORATORY Blood BLOOD SPECIMEN / Unknown Venipuncture / Unknown 12/12/2022 9:49 PM CDT 12/12/2022 9:57 PM CDT Jason Tapai MD LAB - BLOOD ORD ERABLES RH LABORATORY [facility] [address] Lab (1st floor, no room number) [place] [address], [place] [phone] * Blood Culture Peripheral Blood (12/12/2022 9:49 PM CDT) Culture No Growth 12/18/2022 1:16 AM TRANSCRIBER UU IDD LABORATORY Blood BLOOD SPECIMEN / Unknown Venipuncture / Unknown 12/12/2022 9:49 PM CDT 12/12/2022 9:57 PM CDT Jason Tapia MD LAB - MICRO GEN ERAL ORDERABLES UU IDD LABORATORY [facility] Inf. Diseases Diag. Lab [address], [address] [place] [address], [place] [phone] * (ABNORMAL) Blood gas venous and oxyhgb [...] Tapia MD LAB - BLOOD ORD ERABLES [facility] Lab [address] Lab (1st floor, no room number) [place] [address], [facility] [phone] * (ABNORMAL) Reticulocyte count (12/12/2022 9:49 PM CDT) [facility] % Reticulocyte 13.8(H) 0.5 - 2.0 % 12/13/2022 12:07 AM CDT RH LABORATORY Absolute Reticulocyte 0.075 0.025 - 0.095 10e6/uL 12/13/2022 12:07 AM CDT RH LABORATORY Blood BLOOD SPECIMEN / Unknown Venipuncture / Unknown 12/12/2022 9:49 PM CDT 12/12/2022 9:57 PM CDT Jason Tapia MD LAB - BLOOD ORD ERABLES [facility] Lab [address] Lab (1st floor, no room number) [place] [address], [place] [phone] * (ABNORMAL) TSH with free T4 reflex (12/12/2022 9:49 PM CDT) TSH 5.44(H) 0.30 - 4.20 uIU/mL 12/12/2022 11:33 PM CDT LABORATORY Blood BLOOD SPECIMEN / Unknown Venipuncture / Unknown 12/12/2022 9:49 PM CDT 12/12/2022 9:57 PM CDT Jason Tapia MD LAB - BLOOD ORD ERABLES LABORATORY [facility] [address] Lab (1st floor, no room number) [place] [address], [facility] [phone] * (ABNORMAL) Troponin T, High Sensitivity (12/12/2022 9:49 PM CDT) Troponin T, High Sensitivity 82(H) <=14 ng/L [...] MD LAB - BLOOD ORD ERABLES LABORATORY [facility] [address] Lab (1st floor, no room number) [place] [address], [facility] [phone] * Magnesium (12/12/2022 9:49 PM CDT) [facility] Magnesium 2.0 1.7 - 2.3 mg/dL 12/12/2022 11:26 PM CDT RH LABORATORY Blood BLOOD SPECIMEN / Unknown Venipuncture / Unknown 12/12/2022 9:49 PM CDT 12/12/2022 9:57 PM CDT Jason Tapia MD LAB - BLOOD ORD ERABLES RH LABORATORY [facility] [address] Lab (1st floor, no room number) [place] [address], [facility] [phone] * (ABNORMAL) CBC with platelets and differential (12/12/2022 9:49 PM CDT) [facility] WBC Count 18.4(H) 4.0 - 11.0 10e3/uL 12/12/2022 10:25 PM CDT RH LABORATORY RBC Count 1.03(L) 3.80 - 5.20 10e6/uL 12/12/2022 10:25 PM CDT RH LABORATORY Hemoglobin 3.9(LL) 11.7 - 15.7 g/dL 12/12/2022 10:25 PM CDT RH LABORATORY Hematocrit 10.7(L) 35.0 - 47.0 % 12/12/2022 10:25 PM CDT RH LABORATORY MCV 104(H) 78 - 100 fL 12/12/2022 10:25 PM CDT RH LABORATORY MCH 37.9(H) 26.5 - 33.0 pg 12/12/2022 10:25 PM CDT RH LABORATORY MCHC 36.4 31.5 - 36.5 g/dL 12/12/2022 10:25 PM CDT RH LABORATORY RDW 16.5(H) 10.0 - 15.0 % 12/12/2022 10:25 PM CDT RH LABORATORY Platelet Count 222 150 - 450 10e3/uL 12/12/2022 10:25 PM CDT RH LABORATORY % Neutrophils 88 % 12/12/2022 10:25 PM CDT RH LABORATORY % Lymphocytes 5 % 12/12/2022 10:25 PM CDT RH LABORATORY % Monocytes 5 % 12/12/2022 10:25 PM CDT RH LABORATORY % Eosinophils 0 % 12/12/2022 10:25 PM CDT RH LABORATORY % Basophils 0 % 12/12/2022 10:25 PM CDT RH LABORATORY % Immature Granulocytes 2 % 12/12/2022 10:25 PM CDT RH LABORATORY NRBCs per 100 WBC 1(H) <1 /100 023 10:25 PM CDT RH LABORATORY Absolute Neutrophils 16.1(H) 1.6 - 8.3 10e3/uL 12/12/2022 10:25 PM CDT RH LABORATORY Absolute Lymphocytes 0.9 0.8 - 5.3 10e3/uL 12/12/2022 10:25 PM CDT RH LABORATORY Absolute Monocytes 0.9 0.0 - 1.3 10e3/uL 12/12/2022 10:25 PM CDT RH LABORATORY Absolute Eosinophils 0.0 0.0 - 0.7 10e3/uL 12/12/2022 10:25 PM CDT RH LABORATORY Absolute Basophils 0.0 0.0 - 0.2 10e3/uL 12/12/2022 10:25 PM CDT RH LABORATORY Absolute Immature Granulocytes 0.4 <=0.4 10e3/uL 12/12/2022 10:25 PM CDT RH LABORATORY Absolute NRBCs 0.3 10e3/uL 12/12/2022 10:25 PM CDT RH LABORATORY Blood BLOOD SPECIMEN / Unknown Venipuncture / Unknown 12/12/2022 9:49 PM CDT 12/12/2022 9:57 PM CDT Jason Tapia MD LAB - BLOOD ORD ERABLES RH LABORATORY [facility] [address] Lab (1st floor, no room number) [place] [address], [facility] [phone] * (ABNORMAL) Comprehensive metabolic panel (12/12/2022 9:49 PM CDT) Sodium 137 135 - 145 mmol/L 12/12/2022 10:51 PM CDT RH LABORATORY Comment:Reference intervals for this test were updated on 11/06/2022 to more accurately reflect our healthy population. There may be differences in the flagging of prior results with similar values performed with this method. Interpretation of those prior results can be made in the context of the updated reference intervals. Potassium 3.2(L) 3.4 - 5.3 mmol/L 12/12/2022 10:51 PM CDT RH LABORATORY Carbon Dioxide (CO2) 30(H) 22 - 29 mmol/L 12/12/2022 10:51 PM CDT RH LABORATORY Anion Gap 10 7 - 15 mmol/L 12/12/2022 10:51 PM CDT RH LABORATORY Urea Nitrogen 23.3(H) 8.0 - 23.0 mg/dL 12/12/2022 10:51 PM CDT RH LABORATORY Creatinine 1.98(H) 0.51 - 0.95 mg/dL 12/12/2022 10:51 PM CDT RH LABORATORY GFR Estimate 26(L) >60 mL/min/1. 73m2 12/12/2022 10:51 PM CDT RH LABORATORY Calcium 7.9(L) 8.8 - 10.2 mg/dL 12/12/2022 10:51 PM CDT RH LABORATORY Chloride 97(L) 98 - 107 mmol/L 12/12/2022 10:51 PM CDT RH LABORATORY Glucose 273(H) 70 - 99 mg/dL 12/12/2022 10:51 PM CDT RH LABORATORY Alkaline Phosphatase 64 35 - 104 U/L 12/12/2022 10:51 PM CDT RH LABORATORY AST 16 0 - 45 U/L 12/12/2022 10:51 PM CDT RH LABORATORY Comment:Reference intervals for this test were updated on 07/23/2022 to more accurately reflect our healthy population. There may be differences in the flagging of prior results with similar values performed with this method. Interpretation of those prior results can be made in the context of the updated reference intervals. ALT 13 0 - 50 U/L 12/12/2022 10:51 PM CDT RH LABORATORY Comment:Reference intervals for this test were updated on 07/23/2022 to more accurately reflect our healthy population. There may be differences in the flagging of prior results with similar values performed with this method. Interpretation of those prior results can be made in the context of the updated reference intervals. Protein Total 5.4(L) 6.4 - 8.3 g/dL 12/12/2022 10:51 PM CDT [facility] Albumin 2.5(L) 3.5 - 5.2 g/dL 12/12/2022 10:51 PM CDT [facility] Bilirubin Total <0.2 <=1.2 mg/dL 12/12/2022 10:51 PM CDT [facility] Blood BLOOD SPECIMEN / Unknown Venipuncture / Unknown 12/12/2022 9:49 PM CDT 12/12/2022 9:57 PM CDT Jason Tapia MD LAB - BLOOD ORD ERABLES [facility] [address] Lab (1st floor, no room number) [place] [address], [facility] [phone] * Extra Heparinized Syringe (12/12/2022 9:49 PM CDT) Hold Specimen [facility] 12/12/2022 11:02 PM CDT [facility] Blood, venous BLOOD SPECIMEN / Unknown Venipuncture / Unknown 12/12/2022 9:49 PM CDT 12/12/2022 9:57 PM CDT Jason Tapia MD LAB - BLOOD ORD ERABLES [facility] [address] Lab (1st floor, no room number) [place] [address], [facility] [phone] * Extra Purple Top Tube (12/12/2022 9:49 PM CDT) Hold Specimen [facility] 12/12/2022 11:02 PM CDT [facility] Blood BLOOD SPECIMEN / Unknown Venipuncture / Unknown 12/12/2022 9:49 PM CDT 12/12/2022 9:57 PM CDT Jason Tapia MD LAB - BLOOD ORD ERABLES [facility] [address] Lab (1st floor, no room number) [place] [address], [facility] [phone] * Extra Green Top ([place] Heparin) Tube (12/12/2022 9:49 PM CDT) Hold Specimen [facility] 12/12/2022 11:02 PM CDT [facility] Blood BLOOD SPECIMEN / Unknown Venipuncture / Unknown 12/12/2022 9:49 PM CDT 12/12/2022 9:57 PM CDT Jason Tapia MD LAB - BLOOD ORD ERABLES [facility] [address] Lab (1st floor, no room number) [place] [address], [facility] [facility] [phone] * Extra Red Top Tube (12/12/2022 9:49 PM CDT) Hold Specimen [facility] 12/12/2022 11:02 PM CDT [facility] Blood BLOOD SPECIMEN / Unknown Venipuncture / Unknown 12/12/2022 9:49 PM CDT 12/12/2022 9:57 PM CDT Jason Tapia MD LAB - BLOOD ORD ERABLES [facility] [address] Lab (1st floor, no room number) [place] [address], [facility] [phone] * Extra Blue Top Tube (12/12/2022 9:49 PM CDT) Hold Specimen [facility] 12/12/2022 11:02 PM CDT [facility] Blood BLOOD SPECIMEN / Unknown Venipuncture / Unknown 12/12/2022 9:49 PM CDT 12/12/2022 9:57 PM CDT Jason Tapia MD LAB - BLOOD ORD FINESSE [facility] [address] Lab (1st floor, no room number) [place] [address], [place] [phone] * Extra Blood Culture Bottle (12/12/2022 9:49 PM CDT) Hold Specimen [facility] 12/12/2022 11:02 PM CDT LABORATORY Blood BLOOD SPECIMEN / Unknown Venipuncture / Unknown 12/12/2022 9:49 PM CDT 12/12/2022 9:57 PM CDT Jason Tapia MD LAB - BLOOD ORD FINESSE [facility] [address] Lab (1st floor, no room number) [place] [address], [place] [phone] * (ABNORMAL) Glucose by meter (12/12/2022 9:39 PM CDT) GLUCOSE BY METER POCT 245(H) 70 - 99 mg/dL 12/12/2022 9:46 PM CDT LABORATORY POC Blood, Capillary BLOOD SPECIMEN / Unknown 12/12/2022 9:39 PM CDT 12/12/2022 9:46 PM CDT Provider Unknown LAB - BEAKER POCT LABORATORY [facility] [address] Lab (1st floor, no room number) [place] [address], [place] [phone] documented in this encounter Visit Diagnoses Diagnosis Anemia- Primary Anemia, unspecified Acute on chronic anemia ESRD (end stage renal disease) on dialysis (H) End stage renal disease Anemia, unspecified type Chronic obstructive pulmonary disease, unspecified COPD type (H) Constipation, unspecified constipation type SOB (shortness of breath) Shortness of breath COVID ESRD (end stage renal disease) on dialysis (H) End stage renal disease Acute on chronic anemia Other emphysema (H) Other emphysema documented in this encounter Admitting Diagnoses Diagnosis Anemia Anemia, unspecified ESRD (end stage renal disease) on dialysis (H) End stage renal disease documented in this encounter Administered Medications Inactive Administered Medications - up to 3 most recent administrations Medication Order MAR Action Action Date Dose Rate Site - MEDICATION INSTRUCTIONS for Dialysis Patients - SEE ADMIN INSTRUCTIONS, Starting on Sat12/14/22 at 0815, Until Sat12/18/22 at 1634, Do not give any medication that may affect blood pressure or volume before dialysis: amlodipine, clonidine, furosemide, labetalol. The following medications may be removed by dialysis and should be given after dialysis: acetaminophen, oxycodone, vanco acetaminophen (TYLENOL) Suppository 650 mg 650 mg (14.6 mg/kg), Rectal, EVERY 6 HOURS PRN, mild pain, other, and adjunct with moderate or severe pain or per patient request, Starting on Gemma 12/13/22 at 0155, Alternate with ibuprofen if ordered. Maximum acetaminophen dose from all sources = 75 mg/kg/day not to exceed 4 grams/day. acetaminophen (TYLENOL) tablet 650 mg 650 mg (14.6 mg/kg), Oral, EVERY 6 HOURS PRN, mild pain, other, and adjunct with moderate or severe pain or per patient request, Starting on Gemma 12/13/22 at 0155, Alternate with ibuprofen if ordered. Maximum acetaminophen dose from all sources = 75 mg/kg/day not to exceed 4 grams/day. $Given 12/17/2022 11:28 PM TRANSCRIBER 650 mg $Given 12/14/2022 4:33 AM CDT 650 mg $Given 12/13/2022 7:44 PM CDT 650 mg albuterol (PROVENTIL HFA/VENTOLIN HFA) inhaler 2 puff, Inhalation, EVERY 4 HOURS PRN, shortness of breath, Starting on 12/16/22 at 1131, Check the dose counter on the inhaler to ensure there are doses remaining before administering. Prime by spraying into the air 4 times prior to first use and if not used within 2 weeks. $Given 12/18/2022 7:43 AM TRANSCRIBER 2 puffs $Given 12/17/2022 8:25 AM TRANSCRIBER 2 puffs $Given 12/17/2022 12:31 AM TRANSCRIBER 2 puffs amLODIPine (NORVASC) tablet 10 mg 10 mg (0.246 mg/kg), Oral, 2 TIMES DAILY, First dose on 12/15/22 at 1000 $Given 12/18/2022 8:34 AM TRANSCRIBER 10 mg $Given 12/17/2022 8:26 PM TRANSCRIBER 10 mg $Given 12/17/2022 8:42 AM TRANSCRIBER 10 mg bisacodyl (DULCOLAX) suppository 10 mg 10 mg (0.224 mg/kg), Rectal, DAILY PRN, constipation, Starting on Gemma 12/13/22 at 0155, IF more than 1 constipation PRN medication is ordered, administer step-flanagan as indicated, moving to the next step ONLY if prior step ineffective. Step 1: senna-docusate (SENOKOT-S; PERICOLACE) OR bisacodyl (DULCOLAX) EC tablet Step 2: magnesium hydroxide (MILK OF MAGNESIA) OR polyethylene glycol (MIRALAX/GLYCOLAX) Step 3: bisacodyl (DULCOLAX) suppository Step 4: sodium phosphate (FLEET ENEMA) Hold for loose stools. $Given 12/17/2022 1:39 AM TRANSCRIBER 10 mg calcium acetate (PHOSLO) capsule 667 mg 667 mg (16.4 mg/kg), Oral, 3 TIMES DAILY WITH MEALS, First dose on 12/15/22 at 1300, Best if given with meals. $Given 12/16/2022 12:18 PM TRANSCRIBER 667 mg $Given 12/16/2022 7:55 AM TRANSCRIBER 667 mg $Given 12/15/2022 5:45 PM CDT 667 mg carbamide peroxide (DEBROX) 6.5 % otic solution 3 drop 3 drop, Both Ears, 2 TIMES DAILY, First dose on 12/15/22 at 2000 $Given 12/18/2022 8:35 AM TRANSCRIBER 3 drops $Given 12/17/2022 8:29 PM TRANSCRIBER 3 drops $Given 12/17/2022 8:43 AM TRANSCRIBER 3 drops carboxymethylcellulose PF (REFRESH PLUS) 0.5 % ophthalmic solution 1 drop 1 drop, Left Eye, 4 TIMES DAILY, First dose on 12/15/22 at 1300 $Given 12/18/2022 1:34 PM TRANSCRIBER 1 drop $Given 12/18/2022 8:34 AM TRANSCRIBER 1 drop $Given 12/17/2022 8:28 PM TRANSCRIBER 1 drop cetirizine (zyrTEC) tablet 10 mg 10 mg (0.246 mg/kg), Oral, DAILY, First dose on 12/15/22 at 1300 $Given 12/18/2022 8:34 AM TRANSCRIBER 10 mg $Given 12/17/2022 8:42 AM TRANSCRIBER 10 mg $Given 12/16/2022 7:54 AM TRANSCRIBER 10 mg cloNIDine (CATAPRES) tablet 0.2 mg 0.2 mg, Oral, EVERY MORNING, First dose on 12/15/22 at 1000 $Given 12/18/2022 8:33 AM TRANSCRIBER 0.2 mg $Given 12/17/2022 8:42 AM TRANSCRIBER 0.2 mg $Given 12/16/2022 7:54 AM TRANSCRIBER 0.2 mg cloNIDine (CATAPRES) tablet 0.3 mg 0.3 mg (0.68300 mg/kg), Oral, EVERY EVENING, First dose on 12/15/22 at 2000 $Given 12/17/2022 8:25 PM TRANSCRIBER 0.3 mg $Given 12/16/2022 8:29 PM TRANSCRIBER 0.3 mg $Given 12/15/2022 8:27 PM CDT 0.3 mg dextrose 50 % injection 25-50 mL 25-50 mL, Intravenous, EVERY 15 MIN PRN, low blood sugar, Administer over 1-5 Minutes, Starting on Gemma 12/13/22 at 0154, Use if have IV access, BG less than 70 mg/dL and meet dose criteria below: Dose if conscious and alert (or disorientated) and NPO = 25 mL Dose if unconscious / not alert = 50 mL Give first dose for initial blood glucose less than 70 mg/dL. If blood glucose at 15 minute recheck is less than or equal to 100 mg/dL continue to administer carbohydrate treatment every 15 minutes, as needed, based on blood glucose and assessment parameters until blood glucose level is above 100 mg/dL. Vesicant. epoetin jose-epbx (RETACRIT) injection 10,000 Units 10,000 Units (238 Units/kg), Intravenous, ONCE IN DIALYSIS/CRRT, On Sat12/14/22 at 0800, For 1 dose, Give during dialysis., Dialysis $Given 12/14/2022 5:40 PM CDT 10,000 Units epoetin jose-epbx (RETACRIT) injection 10,000 Units 10,000 Units (246 Units/kg), Intravenous, ONCE IN DIALYSIS/CRRT, On Sat12/17/22 at 0900, For 1 dose, Give during dialysis., Dialysis $Given 12/17/2022 4:12 PM TRANSCRIBER 10,000 Units erythromycin (ROMYCIN) ophthalmic ointment Left Eye, 4 TIMES DAILY, First dose on 12/15/22 at 1300, Apply within 1 hour of . May be delayed until after first . $Given 12/18/2022 1:35 PM TRANSCRIBER 1 g $Given 12/18/2022 8:36 AM TRANSCRIBER 1 g $Given 12/17/2022 8:28 PM TRANSCRIBER 1 g furosemide (LASIX) injection 40 mg 40 mg (0.985 mg/kg), Intravenous, ONCE, Administer over 1-3 Minutes, On 12/15/22 at 1700, For 1 dose, Do not refrigerate. Protect from light. $Given 12/15/2022 4:59 PM CDT 40 mg furosemide (LASIX) tablet 40 mg 40 mg (0.985 mg/kg), Oral, DAILY, First dose on 12/15/22 at 1000 $Given 12/17/2022 8:42 AM TRANSCRIBER 40 mg $Given 12/16/2022 7:55 AM TRANSCRIBER 40 mg $Given 12/15/2022 10:07 AM CDT 40 mg furosemide (LASIX) tablet 80 mg 80 mg, Oral, USER SPECIFIED (2 times per day on Saturday), First dose (after last modification) on Sat12/18/22 at 0800 $Given 12/18/2022 8:40 AM TRANSCRIBER 80 mg gabapentin (NEURONTIN) capsule 100 mg 100 mg, Oral, AT BEDTIME, First dose (after last modification) on Sat12/18/22 at 2200 gabapentin (NEURONTIN) capsule 300 mg 300 mg (7.39 mg/kg), Oral, AT BEDTIME, First dose on 12/15/22 at 2200 $Given 12/17/2022 9:18 PM TRANSCRIBER 300 mg $Given 12/16/2022 9:19 PM TRANSCRIBER 300 mg $Given 12/15/2022 10:43 PM CDT 300 mg glucagon injection 1 mg 1 mg (0.0224 mg/kg), Subcutaneous, EVERY 15 MIN PRN, low blood sugar, May repeat x 1 only, Starting on Gemma 12/13/22 at 0154, May give SQ or IM. ONLY use glucagon IF patient has NO IV access AND is UNABLE to swallow AND blood glucose is LESS than or EQUAL to 50 mg/dL. glucose gel 15-30 g 15-30 g (0.336-0.673 g/kg), Oral, EVERY 15 MIN PRN, low blood sugar, Starting on Gemma 12/13/22 at 0154, Give first dose for initial blood glucose less than 70 mg/dL per the dosing instructions below. If blood glucose at 15 minute rechecks is still less than or equal to 100 mg/dL, continue to administer doses per blood glucose parameters every 15 minutes, as needed, until blood glucose level is above 100 mg/dL. Dosing Instructions: ~If patient is conscious and able to swallow and NO enteral tube For initial BG 51-69mg/dL OR 15 minute recheck BG 51- 100 mg/dL - give 15 g For BG less than or equal to 50 mg/dL - give 30 g ~ If Enteral tube For initial BG 51-69mg/dL OR 15 minute recheck BG 51- 100 mg/dL - give apple juice 120 mL [...] Document juice on I and O flowsheet. HYDROmorphone (DILAUDID) tablet 2 mg 2 mg (0.0475 mg/kg), Oral, EVERY 6 HOURS PRN, moderate pain, Starting on Sat12/14/22 at 1435 $Given 12/14/2022 8: 29 PM CDT 2 mg $Given 12/14/2022 3:03 PM CDT 2 mg HYDROmorphone (DILAUDID) tablet 2 mg 2 mg (0.0493 mg/kg), Oral, EVERY 6 HOURS PRN, severe pain, Starting on 12/15/22 at 1441 $Given 12/17/2022 12:4 6 AM TRANSCRIBER 2 mg $Given 12/15/2022 11:02 PM CDT 2 mg HYDROmorphone (PF) (DILAUDID) injection 0.5 mg 0.5 mg, Intravenous, ONCE, On Sat12/18/22 at 0300, For 1 dose $Given 12/18/2022 3:27 AM TRANSCRIBER 0.5 mg insulin aspart (NovoLOG) injection (RAPID ACTING) 1-6 Units (0.0224-0.1345 Units/kg), Subcutaneous, EVERY 4 HOURS, First dose on Gemma 12/13/22 at 0200, Correction Scale - MEDIUM INSULIN RESISTANCE DOSING Do Not give Correction Insulin if BG less than 140. For BG 140 - 189 give 1 unit. For BG 190 - 239 give 2 units. For BG 240 - 289 give 3 units. For BG 290 - 339 give 4 units. For BG 340 - 399 give 5 units. For BG greater than or equal to 400 give 6 units. Check blood glucose Q4H and administer based on blood glucose. Notify provider if glucose greater than or equal to 350 mg/dL after administration of correction dose. If given at mealtime, administer within 30 minutes of start of meal. $Given 12/13/2022 11:02 AM CDT 1 Units insulin aspart (NovoLOG) injection (RAPID ACTING) 1-6 Units (0.0238-0.1425 Units/kg), Subcutaneous, 3 TIMES DAILY WITH MEALS, First dose (after last modification) on [facility] 12/13/22 at 1800, Correction Scale - MEDIUM INSULIN RESISTANCE DOSING Do Not give Correction Insulin if BG less than 140. For BG 140 - 189 give 1 unit. For BG 190 - 239 give 2 units. For BG 240 - 289 give 3 units. For BG 290 - 339 give 4 units. For BG 340 - 399 give 5 units. For BG greater than or equal to 400 give 6 units. Check blood glucose Q4H and administer based on blood glucose. Notify provider if glucose greater than or equal to 350 mg/dL after administration of correction dose. If given at mealtime, administer within 30 minutes of start of meal. $Given 12/18/2022 1:51 PM TRANSCRIBER 3 Units $Given 12/17/2022 1:12 PM TRANSCRIBER 3 Units $Given 12/16/2022 12:21 PM TRANSCRIBER 4 Units insulin glargine (LANTUS PEN) injection 6 Units 6 Units (0.148 Units/kg), Subcutaneous, EVERY MORNING BEFORE BREAKFAST, First dose on 12/16/22 at 1130 $Given 12/18/2022 8:36 AM TRANSCRIBER 6 Units $Given 12/17/2022 8:43 AM TRANSCRIBER 6 Units $Given 12/16/2022 12:55 PM TRANSCRIBER 6 Units iopamidol (ISOVUE-370) solution 500 mL 500 mL, Intravenous, ONCE, On Gemma 12/13/22 at 0050, For 1 dose $Given 12/13/2022 12:49 AM CDT 49 mLs ipratropium - albuterol 0.5 mg/2.5 mg/3 mL (DUONEB) neb solution 3 mL 3 mL, Nebulization, EVERY 4 HOURS PRN, wheezing, shortness of breath, Starting on Sat12/14/22 at 0634 $Given 12/18/2022 1:04 AM TRANSCRIBER 3 mLs $Given 12/17/2022 1:09 AM TRANSCRIBER 3 mLs $Given 12/16/2022 10:15 PM TRANSCRIBER 3 mLs labetalol (NORMODYNE) tablet 300 mg 300 mg (7.39 mg/kg), Oral, 3 TIMES DAILY, First dose on 12/15/22 at 1000 $Given 12/18/2022 1:35 PM TRANSCRIBER 300 mg $Given 12/18/2022 8:34 AM TRANSCRIBER 300 mg $Given 12/17/2022 8:25 PM TRANSCRIBER 300 mg lidocaine 1 % 0.5 mL 0.5 mL, Intradermal, ONCE PRN, WITHIN 24 HOURS For local anesthesia at fistula/graft site, Starting on Sat12/14/22 at 0754, For 1 dose, For local anesthesia at VENOUS fistula/graft site. Give once, if needed, at the dialysis treatment., Dialysis $Given 12/14/2022 2:45 PM CDT 0.5 mLs lidocaine 1 % 0.5 mL 0.5 mL, Intradermal, ONCE PRN, WITHIN 24 HOURS For local anesthesia at fistula/graft site, Starting on 12/17/22 at 0850, For 1 dose, For local anesthesia at VENOUS fistula/graft site. Give once, if needed, at the dialysis treatment., Dialysis $Given 12/17/2022 2:23 PM TRANSCRIBER 0.5 mLs lidocaine 1 % 0.5 mL 0.5 mL, Intradermal, ONCE PRN, For local anesthesia at ARTERIAL fistula/graft site., Starting on Sat12/17/22 at 0850, For 1 dose, Give once, if needed, at the dialysis treatment., Dialysis $Given 12/17/2022 4:20 PM TRANSCRIBER 0.5 mLs melatonin tablet 3 mg 3 mg (0.0673 mg/kg), Oral, AT BEDTIME PRN, sleep, Starting on Gemma 12/13/22 at 0155, Do not give unless at least 6 hours of uninterrupted sleep is expected. $Given 12/17/2022 9:18 PM TRANSCRIBER 3 mg $Given 12/17/2022 12:46 AM TRANSCRIBER 3 mg $Given 12/15/2022 11:02 PM CDT 3 mg naloxone (NARCAN) injection 0.2 mg 0.2 mg (0.34212 mg/kg), Intravenous, EVERY 2 MIN PRN, opioid reversal, Starting on Gemma 12/13/22 at 0357, Administer intravenous route when available and notify [...] naloxone (NARCAN) injection 0.2 mg 0.2 mg (0.28818 mg/kg), Intramuscular, EVERY 2 MIN PRN, opioid reversal, Starting on Gemma 12/13/22 at 0357, Administer intramuscular if an intravenous route is [...] naloxone (NARCAN) injection 0.4 mg 0.4 mg (0.0095 mg/kg), Intravenous, EVERY 2 MIN PRN, opioid reversal, Starting on Gemma 12/13/22 at 0357, Administer intravenous route when available and notify [...] naloxone (NARCAN) injection 0.4 mg 0.4 mg (0.0095 mg/kg), Intramuscular, EVERY 2 MIN PRN, opioid reversal, Starting on Gemma 12/13/22 at 0357, Administer intramuscular if an intravenous route is [...] have not improved after 4 naloxone doses. No heparin via hemodialysis machine ONCE, 1 dose, On Sat12/14/22 at 0800, Normal saline flushes may be used to maintain patency of circuit., Dialysis $Given 12/14/2022 5:16 PM CDT No heparin via hemodialysis machine ONCE, 1 dose, On Sat12/17/22 at 0900, Normal saline flushes may be used to maintain patency of circuit., Dialysis $Given 12/17/2022 4:14 PM TRANSCRIBER ondansetron (ZOFRAN ODT) ODT tab 4 mg 4 mg (0.0897 mg/kg), Oral, EVERY 6 HOURS PRN, nausea, vomiting, Starting on Gemma 12/13/22 at 0155, This is Step 1 of nausea and [...] ondansetron (ZOFRAN) injection 4 mg 4 mg (0.0897 mg/kg), Intravenous, EVERY 6 HOURS PRN, nausea, vomiting, Administer over 2-5 Minutes, Starting on Gemma 12/13/22 at 0155, Give IF patient unable to tolerate oral medication. This is Step 1 of nausea and vomiting management. If nausea not resolved in 15 minutes, go to Step 2 prochlorperazine (COMPAZINE). Irritant. oxyCODONE (ROXICODONE) tablet 5 mg 5 mg (0.112 mg/kg), Oral, ONCE, On Gemma 12/13/22 at 0040, For 1 dose $Given 12/13/2022 2:16 AM CDT 5 mg oxyCODONE (ROXICODONE) tablet 5 mg 5 mg (0.119 mg/kg), Oral, EVERY 4 HOURS PRN, severe pain, Starting on Gemma 12/13/22 at 0353, For 2 doses $Given 12/13/2022 7:44 PM CDT 5 mg $Given 12/13/2022 3:48 PM CDT 5 mg oxyCODONE (ROXICODONE) tablet 5 mg 5 mg (0.119 mg/kg), Oral, EVERY 8 HOURS PRN, severe pain, Starting on Sat12/14/22 at 0811 $Given 12/14/2022 8:18 AM CDT 5 mg oxyCODONE (ROXICODONE) tablet 5 mg 5 mg (0.119 mg/kg), Oral, Bedtime PRN may repeat x1, severe pain, Starting on Sat12/14/22 at 1500 $Given 12/15/2022 7:58 AM CDT 5 mg oxyCODONE (ROXICODONE) tablet 5 mg 5 mg (0.123 mg/kg), Oral, EVERY 6 HOURS PRN, severe pain, Starting on 12/15/22 at 1441 $Given 12/18/2022 8:33 AM TRANSCRIBER 5 mg $Given 12/18/2022 1:15 AM TRANSCRIBER 5 mg $Given 12/17/2022 10:34 AM TRANSCRIBER 5 mg pantoprazole (PROTONIX) EC tablet 40 mg 40 mg (0.95 mg/kg), Oral, 2 TIMES DAILY BEFORE MEALS, First dose on Sat12/14/22 at 1630, DO NOT CRUSH. $Given 12/18/2022 8:33 AM TRANSCRIBER 40 mg $Given 12/17/2022 6:01 PM TRANSCRIBER 40 mg $Given 12/17/2022 8:41 AM TRANSCRIBER 40 mg pantoprazole (PROTONIX) IV push injection 40 mg 40 mg (0.897 mg/kg), Intravenous, 2 TIMES DAILY, First dose on Gemma 12/13/22 at 0800, Irritant. $Given 12/14/2022 8:10 AM CDT 40 mg $Given 12/13/2022 7:44 PM CDT 40 mg $Given 12/13/2022 8:29 AM CDT 40 mg polyethylene glycol (MIRALAX) Packet 17 g 17 g (0.381 g/kg), Oral, DAILY PRN, constipation, Starting on Gemma 12/13/22 at 0155, IF more than 1 constipation PRN medication is ordered, administer step-flanagan as indicated, moving to the next step ONLY if prior step ineffective. Step 1: senna-docusate (SENOKOT-S; PERICOLACE) OR bisacodyl (DULCOLAX) EC tablet Step 2: magnesium hydroxide (MILK OF MAGNESIA) OR polyethylene glycol (MIRALAX/GLYCOLAX) Step 3: bisacodyl (DULCOLAX) suppository Step 4: sodium phosphate (FLEET ENEMA) 1 Packet = 17 grams. Mix each gram with at least 1/2 ounce (15 mL) of water - 8 ounces for 17 g dose, 4 ounces for 8.5 g dose, 2 ounces for 4 g dose. Follow with the same volume of water. Hold for loose stools unless being administered as part of a bowel prep regimen or bowel clean out. $Given 12/17/2022 10:39 AM TRANSCRIBER 17 g $Given 12/16/2022 1:26 PM TRANSCRIBER 17 g $Given 12/15/2022 7:57 AM CDT 17 g senna-docusate (SENOKOT-S/PERICOLACE) 8.6-50 MG per tablet 1 tablet 1 tablet, Oral, 2 TIMES DAILY PRN, constipation, Starting on Gemma 12/13/22 at 0155, If no bowel movement in 24 hours, increase to 2 tablets by mouth. IF more than 1 constipation PRN medication is ordered, administer step-flanagan as indicated, moving to the next step ONLY if prior step ineffective. Step 1: senna-docusate (SENOKOT-S; PERICOLACE) OR bisacodyl (DULCOLAX) EC tablet Step 2: magnesium hydroxide (MILK OF MAGNESIA) OR polyethylene glycol (MIRALAX/GLYCOLAX) Step 3: bisacodyl (DULCOLAX) suppository Step 4: sodium phosphate (FLEET ENEMA) Hold for loose stools. senna-docusate (SENOKOT-S/PERICOLACE) 8.6-50 MG per tablet 2 tablet 2 tablet, Oral, 2 TIMES DAILY PRN, constipation, Starting on Gemma 12/13/22 at 0155, IF more than 1 constipation PRN medication is ordered, administer step-flanagan as indicated, moving to the next step ONLY if prior step ineffective. Step 1: senna-docusate (SENOKOT-S; PERICOLACE) OR bisacodyl (DULCOLAX) EC tablet Step 2: magnesium hydroxide (MILK OF MAGNESIA) OR polyethylene glycol (MIRALAX/GLYCOLAX) Step 3: bisacodyl (DULCOLAX) suppository Step 4: sodium phosphate (FLEET ENEMA) Hold for loose stools. $Given 12/17/2022 10:39 AM TRANSCRIBER 2 tablets $Given 12/15/2022 7:57 AM CDT 2 tablets sodium chloride (PF) 0.9% PF flush 100 mL 100 mL, Intravenous, ONCE, On Gemma 12/13/22 at 0050, For 1 dose $Given 12/13/2022 12:49 AM CDT 56 mLs sodium chloride 0.9% BOLUS 1-250 mL Intravenous, 1-250 mL, EVERY 1 HOUR PRN, To prime infusion tubing AND flush blood through tubing POST blood component administration., Starting on Sat12/12/22 at 2306, IF blood component ordered, nurse to administer rate and volume of fluid pre-blood component administration to PRIME tubing AND to FLUSH blood through tubing post blood component administration UNTIL tubing is clear of visible blood. Use MINIMUM volume necessary for pre and post blood component administration. IF duplicate order nurse to discontinue the duplicate order. sodium chloride 0.9% BOLUS 250 mL Intravenous, 250 mL, ONCE IN DIALYSIS/CRRT, On Sat12/14/22 at 0800, For 1 dose, For patient prime during dialysis, Dialysis $New Bag 12/14/2022 2:45 PM CDT 250 mLs sodium chloride 0.9% BOLUS 250 mL Intravenous, 250 mL, ONCE IN DIALYSIS/CRRT, On Sat12/17/22 at 0900, For 1 dose, For patient prime during dialysis, Dialysis $New Bag 12/17/2022 4:11 PM TRANSCRIBER 250 mLs sodium chloride 0.9% BOLUS 300 mL Hemodialysis Machine, 300 mL, ONCE, On Sat12/14/22 at 0800, For 1 dose, For Dialyzer Prime. (In Dialyzer), Dialysis $New Bag 12/14/2022 2:45 PM CDT 3 00 mLs sodium chloride 0.9% BOLUS 300 mL Hemodialysis Machine, 300 mL, ONCE, On Sat12/17/22 at 0900, For 1 dose, For Dialyzer Prime. (In Dialyzer), Dialysis $New Bag 12/17/2022 1:10 PM TRANSCRIBER 3 00 mLs sorbitol 70 % solution 30 mL 30 mL, Oral, EVERY 3 DAYS, First dose on 12/15/22 at 1300 $Given 12/15/2022 2:11 PM CDT 30 mLs sorbitol 70 % solution 30 mL 30 mL, Oral, ONCE, On 12/16/22 at 1230, For 1 dose $Given 12/16/2022 1:26 PM TRANSCRIBER 30 mLs umeclidinium (INCRUSE ELLIPTA) 62.5 MCG/ACT inhaler 1 puff 1 puff, Inhalation, DAILY, First dose on 12/16/22 at 1200, Check the dose counter on the inhaler to ensure there are doses remaining before administering. $Given 12/18/2022 7:43 AM TRANSCRIBER 1 puff $Given 12/17/2022 8:24 AM TRANSCRIBER 1 puff vancomycin (VANCOCIN) 1,000 mg in 200 mL dextrose intermittent infusion Routine, 1,000 mg (24.6 mg/kg), Intravenous, ONCE, On 12/15/22 at 1000, For 1 dose, Possible Vesicant. Infuse doses less than 1,250 mg over 1 hour. Infuse doses between 1,250 mg and less than 1,750 mg over 90 minutes. Infuse doses 1,750 mg and above over 2 hours., Indications: Intra-Abdominal Infection $New Bag 12/15/2022 12:28 PM CDT 1,000 mg 200 mL/hr vancomycin (VANCOCIN) 500 mg vial to attach to NS 100 mL bag Routine, 500 mg (12.3 mg/kg), Intravenous, ONCE, On Sat12/17/22 at 1600, For 1 dose, Give after dialysis Possible Vesicant. Infuse doses less than 1,250 mg over 1 hour. Infuse doses between 1,250 mg and less than 1,750 mg over 90 minutes. Infuse doses 1,750 mg and above over 2 hours., Indications: peritonitis $New Bag 12/17/2022 6:01 PM TRANSCRIBER [address] salcedo - receiving intermittent dosing Routine, 1 each (0.0246 Each/kg), Intravenous, SEE ADMIN INSTRUCTIONS, Starting on 12/15/22 at 0946, This order is meant to notify providers that this patient is receiving intermittent doses of vancomycin. Do NOT chart on this order., Indications: Intra-Abdominal Infection documented in this encounter Active and Recently Administered Medications Due to Daylight Saving Time, this section may contain times in both CDT and TRANSCRIBER. Scheduled Medication Order 12/16/2022 12/17/2022 12/18/2022 - MEDICATION INSTRUCTIONS for Dialysis Patients - SEE ADMIN INSTRUCTIONS, Starting on Sat12/14/22 at 0815, Until Sat12/18/22 at 1634, Do not give any medication that may affect blood pressure or volume before dialysis: amlodipine, clonidine, furosemide, labetalol. The following medications may be removed by dialysis and should be given after dialysis: acetaminophen, oxycodone, vanco amLODIPine (NORVASC) tablet 10 mg 10 mg (0.246 mg/kg), Oral, 2 TIMES DAILY, First dose on 12/15/22 at 1000 0754 ($Given - Provider: Nahomi Sainz RN)2030 ($Given - Provider: Karime Navarrete, SUSANA) 0842 ($Given - Provider: Kaylan Angela, SUSANA)2025 ($Given - Provider: Myrna Reese, SUSANA) 0834 ($Given - Provider: Marco Santacruz, SUSANA) calcium acetate (PHOSLO) capsule 667 mg (CANCELED) 667 mg (16.4 mg/kg), Oral, 3 TIMES DAILY WITH MEALS, First dose on 12/15/22 at 1300, Best if given with meals. 0755 ($Given - Provider: Nahomi Sainz, SUSANA)1218 ($Given - Provider: Nahomi Sainz, SUSANA) carbamide peroxide (DEBROX) 6.5 % otic solution 3 drop 3 drop, Both Ears, 2 TIMES DAILY, First dose on 12/15/22 at 2000 0800 ($Given - Provider: Nahomi Sainz RN)2049 ($Given - Provider: Karime Navarrete RN) 0843 ($Given - Provider: Kaylan Angela RN)202 ($Given - Provider: Myrna Reese RN) 0835 ($Given - Provider: Marco Santacruz RN) carboxymethylcellulose PF (REFRESH PLUS) 0.5 % ophthalmic solution 1 drop 1 drop, Left Eye, 4 TIMES DAILY, First dose on 12/15/22 at 1300 0755 ($Given - Provider: Nahomi Sainz RN)1218 ($Given - Provider: Nahomi Sainz RN)1557 ($Given - Provider: Karime Navarrete RN)2031 ($Given - Provider: Karime Navarrete RN) 0842 ($Given - Provider: Kaylan Angela RN)1312 ($Given - Provider: Kaylan Angela RN)1800 ($Given - Provider: Kaylan Angela RN)2028 ($Given - Provider: Myrna Reese RN) 0834 ($Given - Provider: Marco Santacruz, SUSANA)1334 ($Given - Provider: Marco Santacruz, SUSANA)1600 (Canceled Entry - Provider: Orders Generic Provider - Comment: Automatically canceled at discontinue of medication order) cetirizine (zyrTEC) tablet 10 mg 10 mg (0.246 mg/kg), Oral, DAILY, First dose on 12/15/22 at 1300 0754 ($Given - Provider: Nahomi Sainz RN) 0842 ($Given - Provider: Kaylan Angela RN) 0834 ($Given - Provider: Marco Santacruz, SUSANA) cloNIDine (CATAPRES) tablet 0.2 mg 0.2 mg, Oral, EVERY MORNING, First dose on 12/15/22 at 1000 0754 ($Given - Provider: Nahomi Sainz RN) 0842 ($Given - Provider: Kaylan Angela RN) 0833 ($Given - Provider: Marco Santacruz RN) cloNIDine (CATAPRES) tablet 0.3 mg 0.3 mg (0.03794 mg/kg), Oral, EVERY EVENING, First dose on 12/15/22 at 2000 202 ($Given - Provider: Karime Navarrete RN) 202 ($Given - Provider: Myrna Reese, RN) epoetin jose-epbx (RETACRIT) injection 10,000 Units (COMPLETED) 10,000 Units (246 Units/kg), Intravenous, ONCE IN DIALYSIS/CRRT, On Sat12/17/22 at 0900, For 1 dose, Give during dialysis., Dialysis 1612 ($Given - Provider: Aranza Self, SUSANA) erythromycin (ROMYCIN) ophthalmic ointment Left Eye, 4 TIMES DAILY, First dose on Sat12/15/22 at 1300, Apply within 1 hour of . May be delayed until after first . 0755 ($Given - Provider: Nahomi Sainz RN)1219 ($Given - Provider: Nahomi Sainz RN)1557 ($Given - Provider: Karime Navarrete RN)2049 ($Given - Provider: Karime Navarrete RN) 0843 ($Given - Provider: Kaylan Angela, SUSANA)1312 ($Given - Provider: Kaylan Angela, SUSANA)1803 ($Given - Provider: Kaylan Angela, SUSANA)2028 ($Given - Provider: Myrna Reese, SUSANA) 0836 ($Given - Provider: Marco Santacruz RN)1335 ($Given - Provider: Marco Santacruz, SUSANA)1600 (Canceled Entry - Provider: Orders Generic Provider - Comment: Automatically canceled at discontinue of medication order) furosemide (LASIX) tablet 40 mg (CANCELED) 40 mg (0.985 mg/kg), Oral, DAILY, First dose on Sat12/15/22 at 1000 0755 ($Given - Provider: Nahomi Sainz RN) 0842 ($Given - Provider: Kaylan Angela, SUSANA) furosemide (LASIX) tablet 80 mg 80 mg, Oral, USER SPECIFIED (2 times per day on Saturday), First dose (after last modification) on Sat12/18/22 at 0800 0840 ($Given - Provider: Marco Santacruz RN)1600 (Canceled Entry - Provider: Orders Generic Provider - Comment: Automatically canceled at discontinue of medication order) gabapentin (NEURONTIN) capsule 100 mg 100 mg, Oral, AT BEDTIME, First dose (after last modification) on Sat12/18/22 at 2200 gabapentin (NEURONTIN) capsule 300 mg (CANCELED) 300 mg (7.39 mg/kg), Oral, AT BEDTIME, First dose on Sat12/15/22 at 2200 2119 ($Given - Provider: Karime Navarrete RN) 2118 ($Given - Provider: Myrna Reese RN) HYDROmorphone (PF) (DILAUDID) injection 0.5 mg (COMPLETED) 0.5 mg, Intravenous, ONCE, On Sat12/18/22 at 0300, For 1 dose 0327 ($Given - Provider: Juani Sharma RN) insulin aspart (NovoLOG) injection (RAPID ACTING) 1-6 Units (0.0238-0.1425 Units/kg), Subcutaneous, 3 TIMES DAILY WITH MEALS, First dose (after last modification) on Sat12/13/22 at 1800, Correction Scale - MEDIUM INSULIN RESISTANCE DOSING Do Not give Correction Insulin if BG less than 140. For BG 140 - 189 give 1 unit. For BG 190 - 239 give 2 units. For BG 240 - 289 give 3 units. For BG 290 - 339 give 4 units. For BG 340 - 399 give 5 units. For BG greater than or equal to 400 give 6 units. Check blood glucose Q4H and administer based on blood glucose. Notify provider if glucose greater than or equal to 350 mg/dL after administration of correction dose. If given at mealtime, administer within 30 minutes of start of meal. 0755 ($Given - Provider: Nahomi Sainz RN - Comment: bg 155)1221 ($Given - Provider: Nahomi Sainz RN - Comment: BG 316)1829 (Not Given - Provider: Karime Navarrete RN - Reason: Order parameters not met) 0833 (Not Given - Provider: Kaylan Angela RN - Reason: Order parameters not met - Comment: 130, 112)1312 ($Given - Provider: Kaylan Angela RN)1815 (Not Given - Provider: Kaylan Angela RN - Reason: Order parameters not met - Comment: 70) 0836 (Not Given - Provider: Marco A Sheito, RN - Reason: Order parameters not met)1351 ($Given - Provider: Marco Santacruz RN) insulin glargine (LANTUS PEN) injection 6 Units 6 Units (0.148 Units/kg), Subcutaneous, EVERY MORNING BEFORE BREAKFAST, First dose on 12/16/22 at 1130 1255 ($Given - Provider: Nahomi Sainz RN) 0843 ($Given - Provider: Kaylan Angela RN) 0836 ($Given - Provider: Marco Santacruz RN) labetalol (NORMODYNE) tablet 300 mg 300 mg (7.39 mg/kg), Oral, 3 TIMES DAILY, First dose on 12/15/22 at 1000 0755 ($Given - Provider: Nahomi Sainz RN)1326 ($Given - Provider: Nahomi Sainz RN)2118 ($Given - Provider: Karime Navarrete RN) 0853 (Hold - Provider: Kaylan Angela RN - Reason: Order to hold this dose - Comment: dialysis and HR 58)1315 (Hold - Provider: Kaylan Angela RN - Reason: Other - Comment: dialysis)2025 ($Given - Provider: Myrna Reese RN) 0834 ($Given - Provider: Marco Santacruz RN)1335 ($Given - Provider: Marco Santacruz RN) No heparin via hemodialysis machine (COMPLETED) ONCE, 1 dose, On 12/17/22 at 0900, Normal saline flushes may be used to maintain patency of circuit., Dialysis 1614 ($Given - Provider: Aranza Self RN - Comment: noted) pantoprazole (PROTONIX) EC tablet 40 mg 40 mg (0.95 mg/kg), Oral, 2 TIMES DAILY BEFORE MEALS, First dose on Sat12/14/22 at 1630, DO NOT CRUSH. 0755 ($Given - Provider: Nahomi Sainz RN)1557 ($Given - Provider: Karime Navarrete, SUSANA) 0841 ($Given - Provider: Kaylan Angela RN)1801 ($Given - Provider: Kaylan Angela RN) 0833 ($Given - Provider: Marco Santacruz RN)1630 (Canceled Entry - Provider: Orders Generic Provider - Comment: Automatically canceled at discontinue of medication order) sodium chloride 0.9% BOLUS 250 mL (COMPLETED) Intravenous, 250 mL, ONCE IN DIALYSIS/CRRT, On Sat12/17/22 at 0900, For 1 dose, For patient prime during dialysis, Dialysis 1611 ($New Bag - Provider: Aranza Slef RN - Comment: on hand for blood rinseback) sodium chloride 0.9% BOLUS 300 mL (COMPLETED) Hemodialysis Machine, 300 mL, ONCE, On Sat12/17/22 at 0900, For 1 dose, For Dialyzer Prime. (In Dialyzer), Dialysis 1310 ($New Bag - Provider: Aranza Self RN - Comment: pretx hemoline prime) sorbitol 70 % solution 30 mL 30 mL, Oral, EVERY 3 DAYS, First dose on 12/15/22 at 1300 1342 (Not Given - Provider: Marco Santacruz RN - Reason: Patient/family refused) sorbitol 70 % solution 30 mL (COMPLETED) 30 mL, Oral, ONCE, On 12/16/22 at 1230, For 1 dose 1326 ($Given - Provider: Nahomi Sainz RN) umeclidinium (INCRUSE ELLIPTA) 62.5 MCG/ACT inhaler 1 puff 1 puff, Inhalation, DAILY, First dose on 12/16/22 at 1200, Check the dose counter on the inhaler to ensure there are doses remaining before administering. 1146 (Canceled Entry - Provider: Kaylan Moctezuma, RT) 0824 ($Given - Provider: Christina Santiago RN) 0743 ($Given - Provider: Rajan Akers, RT) vancomycin (VANCOCIN) 500 mg vial to attach to NS 100 mL bag (COMPLETED) Routine, 500 mg (12.3 mg/kg), Intravenous, ONCE, On Sat12/17/22 at 1600, For 1 dose, Give after dialysis Possible Vesicant. Infuse doses less than 1,250 mg over 1 hour. Infuse doses between 1,250 mg and less than 1,750 mg over 90 minutes. Infuse doses 1,750 mg and above over 2 hours., Indications: peritonitis 1801 ($New Bag - Provider: Kaylan Angela, SUSANA) vancomycin place salcedo - receiving intermittent dosing Routine, 1 each (0.0246 Each/kg), Intravenous, SEE ADMIN INSTRUCTIONS, Starting on 12/15/22 at 0946, This order is meant to notify providers that this patient is receiving intermittent doses of vancomycin. Do NOT chart on this order., Indications: Intra-Abdominal Infection PRN Medication Order 12/16/2022 12/17/2022 12/18/2022 acetaminophen (TYLENOL) Suppository 650 mg(Linked Group 1) 650 mg (14.6 mg/kg), Rectal, EVERY 6 HOURS PRN, mild pain, other, and adjunct with moderate or severe pain or per patient request, Starting on [place] 12/13/22 at 0155, Alternate with ibuprofen if ordered. Maximum acetaminophen dose from all sources = 75 mg/kg/day not to exceed 4 grams/day. 2047 (See Alternative - Provider: Karime Navarrete RN) 2327 (See Alternative - Provider: Juani Sharma, SUSANA) acetaminophen (TYLENOL) tablet 650 mg(Linked Group 1) 650 mg (14.6 mg/kg), Oral, EVERY 6 HOURS PRN, mild pain, other, and adjunct with moderate or severe pain or per patient request, Starting on [place] 12/13/22 at 0155, Alternate with ibuprofen if ordered. Maximum acetaminophen dose from all sources = 75 mg/kg/day not to exceed 4 grams/day. 2047 (Not Given - Provider: Karime Navarrete RN - Reason: Patient/family refused) 2327 ($Given - Provider: Juani Sharma, SUSANA) albuterol (PROVENTIL HFA/VENTOLIN HFA) inhaler 2 puff, Inhalation, EVERY 4 HOURS PRN, shortness of breath, Starting on [place] 12/16/22 at 1131, Check the dose counter on the inhaler to ensure there are doses remaining before administering. Prime by spraying into the air 4 times prior to first use and if not used within 2 weeks. 0031 ($Given - Provider: Florence Emery RN)0825 ($Given - Provider: Christina Santiago RN) 0743 ($Given - Provider: Rajan Akers, RT) bisacodyl (DULCOLAX) suppository 10 mg 10 mg (0.224 mg/kg), Rectal, DAILY PRN, constipation, Starting on [place] 12/13/22 at 0155, IF more than 1 constipation PRN medication is ordered, administer step-flanagan as indicated, moving to the next step ONLY if prior step ineffective. Step 1: senna-docusate (SENOKOT-S; PERICOLACE) OR bisacodyl (DULCOLAX) EC tablet Step 2: magnesium hydroxide (MILK OF MAGNESIA) OR polyethylene glycol (MIRALAX/GLYCOLAX) Step 3: bisacodyl (DULCOLAX) suppository Step 4: sodium phosphate (FLEET ENEMA) Hold for loose stools. 0139 ($Given - Provider: Florence Emery RN) dextrose 50 % injection 25-50 mL(Linked Group 2) 25-50 mL, Intravenous, EVERY 15 MIN PRN, low blood sugar, Administer over 1-5 Minutes, Starting on [place] 12/13/22 at 0154, Use if have IV access, BG less than 70 mg/dL and meet dose criteria below: Dose if conscious and alert (or disorientated) and NPO = 25 mL Dose if unconscious / not alert = 50 mL Give first dose for initial blood glucose less than 70 mg/dL. If blood glucose at 15 minute recheck is less than or equal to 100 mg/dL continue to administer carbohydrate treatment every 15 minutes, as needed, based on blood glucose and assessment parameters until blood glucose level is above 100 mg/dL. Vesicant. glucagon injection 1 mg(Linked Group 2) 1 mg (0.0224 mg/kg), Subcutaneous, EVERY 15 MIN PRN, low blood sugar, May repeat x 1 only, Starting on [place] 12/13/22 at 0154, May give SQ or IM. ONLY use glucagon IF patient has NO IV access AND is UNABLE to swallow AND blood glucose is LESS than or EQUAL to 50 mg/dL. glucose gel 15-30 g(Linked Group 2) 15-30 g (0.336-0.673 g/kg), Oral, EVERY 15 MIN PRN, low blood sugar, Starting on [place] 12/13/22 at 0154, Give first dose for initial blood glucose less than 70 mg/dL per the dosing instructions below. If blood glucose at 15 minute rechecks is still less than or equal to 100 mg/dL, continue to administer doses per blood glucose parameters every 15 minutes, as needed, until blood glucose level is above 100 mg/dL. Dosing Instructions: ~If patient is conscious and able to swallow and NO enteral tube For initial BG 51-69mg/dL OR 15 minute recheck BG 51- 100 mg/dL - give 15 g For BG less than or equal to 50 mg/dL - give 30 g ~ If Enteral tube For initial BG 51-69mg/dL OR 15 minute recheck BG 51- 100 mg/dL - give apple juice 120 mL [...] Document juice on I and O flowsheet. HYDROmorphone (DILAUDID) tablet 2 mg(Linked Group 3) 2 mg (0.0493 mg/kg), Oral, EVERY 6 HOURS PRN, severe pain, Starting on Sat12/15/22 at 1441 1832 (See Alternative - Provider: Karime Navarrete RN)2052 (Not Given - Provider: Karime Navarrete RN - Reason: Other - Comment: not given returned.it was linked order, no time to give. pt still c/o pain 09/20.) 0046 ($Given - Provider: Florence Emery RN)1034 (See Alternative - Provider: Kaylan Angela, RN)2139 (See Alternative - Provider: Myrna Reese, SUSANA) 0115 (See Alternative - Provider: Juani Sharma, SUSANA)0833 (See Alternative - Provider: Marco Santacruz, SUSANA) ipratropium - albuterol 0.5 mg/2.5 mg/3 mL (DUONEB) neb solution 3 mL 3 mL, Nebulization, EVERY 4 HOURS PRN, wheezing, shortness of breath, Starting on 12/14/22 at 0634 1003 ($Given - Provider: Kaylan Moctezuma, RT)1600 ($Given - Provider: Karime Navarrete, SUSANA)2215 ($Given - Provider: Karime Navarrete, SUSANA) 0109 ($Given - Provider: Luma Jimenes, RT) 0104 ($Given - Provider: Sandy Magana, RT) lidocaine 1 % 0.5 mL (COMPLETED) 0.5 mL, Intradermal, ONCE PRN, WITHIN 24 HOURS For local anesthesia at fistula/graft site, Starting on Sat12/17/22 at 0850, For 1 dose, For local anesthesia at VENOUS fistula/graft site. Give once, if needed, at the dialysis treatment., Dialysis 1423 ($Given - Provider: Aranaz Self RN - Comment: precannulation access numbing) lidocaine 1 % 0.5 mL (COMPLETED) 0.5 mL, Intradermal, ONCE PRN, For local anesthesia at ARTERIAL fistula/graft site., Starting on Sat12/17/22 at 0850, For 1 dose, Give once, if needed, at the dialysis treatment., Dialysis 1620 ($Given - Provider: Aranza Self RN - Comment: precannulation access numbing) melatonin tablet 3 mg 3 mg (0.0673 mg/kg), Oral, AT BEDTIME PRN, sleep, Starting on [place] 12/13/22 at 0155, Do not give unless at least 6 hours of uninterrupted sleep is expected. 0046 ($Given - Provider: Florence Emery RN)2118 ($Given - Provider: Myrna Reese RN) naloxone (NARCAN) injection 0.2 mg(Linked Group 4) 0.2 mg (0.85686 mg/kg), Intravenous, EVERY 2 MIN PRN, opioid reversal, Starting on [place] 12/13/22 at 0357, Administer intravenous route when available and notify [...] doses. naloxone (NARCAN) injection 0.2 mg(Linked Group 4) 0.2 mg (0.66417 mg/kg), Intramuscular, EVERY 2 MIN PRN, opioid reversal, Starting on [place] 12/13/22 at 0357, Administer intramuscular if an intravenous route is [...] doses. naloxone (NARCAN) injection 0.4 mg(Linked Group 4) 0.4 mg (0.0095 mg/kg), Intravenous, EVERY 2 MIN PRN, opioid reversal, Starting on [place] 12/13/22 at 0357, Administer intravenous route when available and notify [...] doses. naloxone (NARCAN) injection 0.4 mg(Linked Group 4) 0.4 mg (0.0095 mg/kg), Intramuscular, EVERY 2 MIN PRN, opioid reversal, Starting on [place] 12/13/22 at 0357, Administer intramuscular if an intravenous route is [...] have not improved after 4 naloxone doses. ondansetron (ZOFRAN ODT) ODT tab 4 mg(Linked Group 5) 4 mg (0.0897 mg/kg), Oral, EVERY 6 HOURS PRN, nausea, vomiting, Starting on [place] 12/13/22 at 0155, This is Step 1 of nausea and [...] required. ondansetron (ZOFRAN) injection 4 mg(Linked Group 5) 4 mg (0.0897 mg/kg), Intravenous, EVERY 6 HOURS PRN, nausea, vomiting, Administer over 2-5 Minutes, Starting on [place] 12/13/22 at 0155, Give IF patient unable to tolerate oral medication. This is Step 1 of nausea and vomiting management. If nausea not resolved in 15 minutes, go to Step 2 prochlorperazine (COMPAZINE). Irritant. oxyCODONE (ROXICODONE) tablet 5 mg(Linked Group 3) 5 mg (0.123 mg/kg), Oral, EVERY 6 HOURS PRN, severe pain, Starting on 12/15/22 at 1441 1832 ($Given - Provider: Karime Navarrete RN)2052 (See Alternative - Provider: Karime Navarrete RN) 0046 (See Alternative - Provider: Florence Emery RN)1034 ($Given - Provider: Kaylan Angela, SUSANA)2139 (Return to Cabinet - Provider: Myrna Reese RN - Comment: Pt changed her mind about the medication. Returned to cabinet witnessed by RN.) 0115 ($Given - Provider: Juani Sharma RN)0833 ($Given - Provider: Marco Santacruz RN) polyethylene glycol (MIRALAX) Packet 17 g 17 g (0.381 g/kg), Oral, DAILY PRN, constipation, Starting on [place] 12/13/22 at 0155, IF more than 1 constipation PRN medication is ordered, administer step-flanagan as indicated, moving to the next step ONLY if prior step ineffective. Step 1: senna-docusate (SENOKOT-S; PERICOLACE) OR bisacodyl (DULCOLAX) EC tablet Step 2: magnesium hydroxide (MILK OF MAGNESIA) OR polyethylene glycol (MIRALAX/GLYCOLAX) Step 3: bisacodyl (DULCOLAX) suppository Step 4: sodium phosphate (FLEET ENEMA) 1 Packet = 17 grams. Mix each gram with at least 1/2 ounce (15 mL) of water - 8 ounces for 17 g dose, 4 ounces for 8.5 g dose, 2 ounces for 4 g dose. Follow with the same volume of water. Hold for loose stools unless being administered as part of a bowel prep regimen or bowel clean out. 1326 ($Given - Provider: Nahomi Sainz RN) 1039 ($Given - Provider: Kaylan Angela, SUSANA) senna-docusate (SENOKOT-S/PERICOLACE) 8.6-50 MG per tablet 1 tablet(Linked Group 6) 1 tablet, Oral, 2 TIMES DAILY PRN, constipation, Starting on [place] 12/13/22 at 0155, If no bowel movement in 24 hours, increase to 2 tablets by mouth. IF more than 1 constipation PRN medication is ordered, administer step-flanagan as indicated, moving to the next step ONLY if prior step ineffective. Step 1: senna-docusate (SENOKOT-S; PERICOLACE) OR bisacodyl (DULCOLAX) EC tablet Step 2: magnesium hydroxide (MILK OF MAGNESIA) OR polyethylene glycol (MIRALAX/GLYCOLAX) Step 3: bisacodyl (DULCOLAX) suppository Step 4: sodium phosphate (FLEET ENEMA) Hold for loose stools. 1039 (See Alternative - Provider: Kaylan Angela, SUSANA) senna-docusate (SENOKOT-S/PERICOLACE) 8.6-50 MG per tablet 2 tablet(Linked Group 6) 2 tablet, Oral, 2 TIMES DAILY PRN, constipation, Starting on [place] 12/13/22 at 0155, IF more than 1 constipation PRN medication is ordered, administer step-flanagan as indicated, moving to the next step ONLY if prior step ineffective. Step 1: senna-docusate (SENOKOT-S; PERICOLACE) OR bisacodyl (DULCOLAX) EC tablet Step 2: magnesium hydroxide (MILK OF MAGNESIA) OR polyethylene glycol (MIRALAX/GLYCOLAX) Step 3: bisacodyl (DULCOLAX) suppository Step 4: sodium phosphate (FLEET ENEMA) Hold for loose stools. 1039 ($Given - Provider: Kaylan Angela, SUSANA) sodium chloride 0.9% BOLUS 1-250 mL Intravenous, 1-250 mL, EVERY 1 HOUR PRN, To prime infusion tubing AND flush blood through tubing POST blood component administration., Starting on Sat12/12/22 at 2306, IF blood component ordered, nurse to administer rate and volume of fluid pre-blood component administration to PRIME tubing AND to FLUSH blood through tubing post blood component administration UNTIL tubing is clear of visible blood. Use MINIMUM volume necessary for pre and post blood component administration. IF duplicate order nurse to discontinue the duplicate order. triamcinolone (KENALOG) 0.1 % cream Topical, DAILY PRN, irritation, Starting on Sat12/16/22 at 1510, Apply to skin Linked Groups Order Group 1: acetaminophen (TYLENOL) tablet 650 mgJump to med 650 mg (14.6 mg/kg), Oral, EVERY 6 HOURS PRN, mild pain, other, and adjunct with moderate or severe pain or per patient request, Starting on [place] 12/13/22 at 0155, Alternate with ibuprofen if ordered. Maximum acetaminophen dose from all sources = 75 mg/kg/day not to exceed 4 grams/day. Or acetaminophen (TYLENOL) Suppository 650 mgJump to med 650 mg (14.6 mg/kg), Rectal, EVERY 6 HOURS PRN, mild pain, other, and adjunct with moderate or severe pain or per patient request, Starting on [place] 12/13/22 at 0155, Alternate with ibuprofen if ordered. Maximum acetaminophen dose from all sources = 75 mg/kg/day not to exceed 4 grams/day. Group 2: glucose gel 15-30 gJump to med 15-30 g (0.336-0.673 g/kg), Oral, EVERY 15 MIN PRN, low blood sugar, Starting on [place] 12/13/22 at 0154, Give first dose for initial blood glucose less than 70 mg/dL per the dosing instructions below. If blood glucose at 15 minute rechecks is still less than or equal to 100 mg/dL, continue to administer doses per blood glucose parameters every 15 minutes, as needed, until blood glucose level is above 100 mg/dL. Dosing Instructions: ~If patient is conscious and able to swallow and NO enteral tube For initial BG 51-69mg/dL OR 15 minute recheck BG 51- 100 mg/dL - give 15 g For BG less than or equal to 50 mg/dL - give 30 g ~ If Enteral tube For initial BG 51- 69mg/dL OR 15 minute recheck BG 51- 100 mg/dL - give apple juice 120 mL [...] sugar, Administer over 1-5 Minutes, Starting on [place] 12/13/22 at 0154, Use if have IV access, BG less than 70 mg/dL and meet dose criteria below: Dose if conscious and alert (or disorientated) and NPO = 25 mL Dose if unconscious / not alert = 50 mL Give first dose for initial blood glucose less than 70 mg/dL. If blood glucose at 15 minute recheck is less than or equal to 100 mg/dL continue to administer carbohydrate treatment every 15 minutes, as needed, based on blood glucose and assessment parameters until blood glucose level is above 100 mg/dL. Vesicant. Or glucagon injection 1 mgJump to med 1 mg (0.0224 mg/kg), Subcutaneous, EVERY 15 MIN PRN, low blood sugar, May repeat x 1 only, Starting on [place] 12/13/22 at 0154, May give SQ or IM. ONLY use glucagon IF patient has NO IV access AND is UNABLE to swallow AND blood glucose is LESS than or EQUAL to 50 mg/dL. Group 3: oxyCODONE (ROXICODONE) tablet 5 mgJump to med 5 mg (0.123 mg/kg), Oral, EVERY 6 HOURS PRN, severe pain, Starting on 12/15/22 at 1441 Or HYDROmorphone (DILAUDID) tablet 2 mgJump to med 2 mg (0.0493 mg/kg), Oral, EVERY 6 HOURS PRN, severe pain, Starting on 12/15/22 at 1441 Group 4: naloxone (NARCAN) injection 0.2 mgJump to med 0.2 mg (0.75155 mg/kg), Intravenous, EVERY 2 MIN PRN, opioid reversal, Starting on [place] 12/13/22 at 0357, Administer intravenous route when available and notify [...] injection 0.4 mgJump to med 0.4 mg (0.0095 mg/kg), Intravenous, EVERY 2 MIN PRN, opioid reversal, Starting on [place] 12/13/22 at 0357, Administer intravenous route when available and notify [...] injection 0.2 mgJump to med 0.2 mg (0.64230 mg/kg), Intramuscular, EVERY 2 MIN PRN, opioid reversal, Starting on [place] 12/13/22 at 0357, Administer intramuscular if an intravenous route is [...] injection 0.4 mgJump to med 0.4 mg (0.0095 mg/kg), Intramuscular, EVERY 2 MIN PRN, opioid reversal, Starting on [place] 12/13/22 at 0357, Administer intramuscular if an intravenous route is [...] not improved after 4 naloxone doses. Group 5: ondansetron (ZOFRAN ODT) ODT tab 4 mgJump to med 4 mg (0.0897 mg/kg), Oral, EVERY 6 HOURS PRN, nausea, vomiting, Starting on [place] 12/13/22 at 0155, This is Step 1 of nausea and [...] injection 4 mgJump to med 4 mg (0.0897 mg/kg), Intravenous, EVERY 6 HOURS PRN, nausea, vomiting, Administer over 2-5 Minutes, Starting on [place] 12/13/22 at 0155, Give IF patient unable to tolerate oral medication. This is Step 1 of nausea and vomiting management. If nausea not resolved in 15 minutes, go to Step 2 prochlorperazine (COMPAZINE). Irritant. Group 6: senna-docusate (SENOKOT-S/PERICOLACE) 8.6-50 MG per tablet 1 tabletJump to med 1 tablet, Oral, 2 TIMES DAILY PRN, constipation, Starting on [facility] 12/13/22 at 0155, If no bowel movement in 24 hours, increase to 2 tablets by mouth. IF more than 1 constipation PRN medication is ordered, administer step-flanagan as indicated, moving to the next step ONLY if prior step ineffective. Step 1: senna-docusate (SENOKOT-S; PERICOLACE) OR bisacodyl (DULCOLAX) EC tablet Step 2: magnesium hydroxide (MILK OF MAGNESIA) OR polyethylene glycol (MIRALAX/GLYCOLAX) Step 3: bisacodyl (DULCOLAX) suppository Step 4: sodium phosphate (FLEET ENEMA) Hold for loose stools. Or senna-docusate (SENOKOT-S/PERICOLACE) 8.6-50 MG per tablet 2 tabletJump to med 2 tablet, Oral, 2 TIMES DAILY PRN, constipation, Starting on Gemma 12/13/22 at 0155, IF more than 1 constipation PRN medication is ordered, administer step-flanagan as indicated, moving to the next step ONLY if prior step ineffective. Step 1: senna-docusate (SENOKOT-S; PERICOLACE) OR bisacodyl (DULCOLAX) EC tablet Step 2: magnesium hydroxide (MILK OF MAGNESIA) OR polyethylene glycol (MIRALAX/GLYCOLAX) Step 3: bisacodyl (DULCOLAX) suppository Step 4: sodium phosphate (FLEET ENEMA) Hold for loose stools. 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
--- OUTSIDE RECORDS SUMMARY | 2023-02-22 16:14 | XMS_ITS | Encounter Summary ---
Author Name Unknown Organization [facility] Address [address] [place] [address] Care Team Providers Care Audio Director Name Role Phone Man Schneider Primary Care Provider [phone] Reason for Visit * Reason Comments Generalized Weakness * Auth/Cert (Routine) Specialty Diagnoses / Procedures Referred By Contac t Referred To Contact Orthopedics Diagnoses Anemia ESRD (end stage renal disease) on dialysis (H) Acute on chronic anemia Anemia Acute on chronic anemia ESRD (end stage renal disease) on dialysis (H) [facility] [address] [place] [address] Referral ID Status Reason Start Date Expiration Date Visits Re quested Visits Authorized [id number] 1 1 Encounter Details Date Type Department Care Team ([facility] st Contact Info) Description 12/14/2022 11:44 AM CDT - 12/14/2022 12:[address] [facility] PeriOp Services [address] [place] [address] Adama Ramirez MD [facility] [address] [place], [place] [id number] ESOPHAGOGASTRODUODENOSCOPY Surgery Details Date/Time Status Location OR Service Patient Class Case Class Case Type Trauma Case? 12/14/22 11:44 AM Posted RH OR OR 01 Gastroenterology Inpatient NEST 5 - Semi-Urg ent (within 48hrs) Panel 1 Procedure LRB Anes Op Region Wound Class Comments ESOPHAGOGASTRODUODENOSCOPY N/A MAC Mouth II- Clean Contaminated Surgeon Surgeon Role Service Panel Adama Ramirez MD Primary Gastroenterolo gy 1 documented in this encounter Social History Tobacco Use Types Packs/Day Years [...] Sign Reading Time Taken Comments Blood Pressure 172/68 12/14/2022 10:42 AM CDT Pulse 74 12/14/2022 7:52 AM CDT Temperature 36.8 ??C (98.3 ??F) 12/14/2022 10:42 AM C DT Respiratory Rate 20 12/14/2022 7:52 AM CDT Oxygen Saturation 96% 12/14/2022 10:42 AM CDT Inhaled Oxygen Concentration - - Weight 42.1 kg (92 lb 13 oz) 12/13/2022 3:15 AM CDT Height 154.9 cm (5' 1) 12/13/2022 3:15 AM CDT Body Mass Index 19.4 12/13/2022 3:15 AM CDT documented in this encounter Discharge Summaries * Lisa Ospina MD - 12/18/2022 11:[address] [facility] Hospitalist Discharge Summary Date of Admission: 12/12/2022 [...] minutes discharging this patient. Lisa Ospina MD [facility] [address] [facility] [address] Physical Exam Vital Signs: Temp: 98 ??F (36.7 ??C) Temp src: Oral BP: 134/76 Pulse: 56 Resp: 10 SpO2: 100 % O2 Device: Nasal cannula Oxygen Delivery: 2 LPM Weight: 102 lbs 11.2 oz Primary Care Physician MAN SCHNEIDER Discharge Orders No discharge procedures on file. Significant Results and Procedures Most Recent 3 CBC's: Recent Labs Lab Test 12/17/22 0631 12/16/2261112/15/2245 12/14/22 0545 WBC -- 14.8* 16.1* 19.4* HGB 7.1* 7.2* 8.0* 8.2* MCV -- 97 99 96 PLT -- 237 265 280 Most Recent 3 BMP's: Recent Labs Lab Test 12/17/22 1240 12/17/22 0808 12/17/22 0631 12/16/22 0724 12/16/2261112/15/2218 12/15/22 0545 NA -- -- 128* -- [...] Narrative EXAM: XR CHEST 2 VIEWS LOCATION: [facility] DATE: 12/13/2022 INDICATION: cough COMPARISON: 11/29/2022 Impression IMPRESSION: Heart size within normal limits. Calcified aortic arch. Mild streaky left basilar atelectasis or infiltrate. The right lung is clear. No pneumothorax. CTA Abdomen Pelvis with Contrast Narrative EXAM: CTA ABDOMEN PELVIS WITH CONTRAST LOCATION: [facility] DATE: 12/13/2022 INDICATION: acute on chronic anemia, melena, please do GI bleed protocol. ESRD, on hemodialysis, Recent removal of peritoneal dialysis catheter COMPARISON: 11/28/2022 TECHNIQUE: CT angiogram abdomen pelvis during arterial phase of injection of IV contrast. 2D and 3DMIP reconstructions were performed by the clinical lab technologist. Dose reduction techniques were used. [...] 300 mg by mouth 3 times daily amqxnwca-imjkmezws-zbxHMBUFnqazj (MAXITROL) 3.5-97059-7.[address] 0.25 inches Into the [...] Lisinopril-Hydrochlorothiazide Rash Niacin Rash and Itching itch [place] Rash Pioglitazone Rash Itchy rash RAL ACTIVITIES THERAPIST documented in this encounter Discharge Instructions * Attachments The following attachments cannot be sent through Care Everywhere. * Diabetes: Renal Diet (Citizen Of [place]) documented in this encounter Medications at Time [...] by mouth 2 times daily 0 03/01/2022 zzvafpzy-cvngnbwoy-qjz AMETHasone (MAXITROL) 3.5-30362-4.[address] 0.25 inches Into the [...] of taxi ride back to home in [place]. Front Office Agent called and set up [employer] taxi for tile picker at 1435 today. Bedside nurse notified, patient is ready to go and will meet taxi downstairs at front door. No further discharge needs noted. Lizbeth Nelson RN Forest Pathology Professor [facility] [phone] RAL ACTIVITIES THERAPIST * Marco Santacruz RN - 12/18/2022 2:18 PM CST Patient discharged to home via taxi accompanied by no family/friend . IV: Discontinued Prescriptions of Protonix and lasix given to patient Belongings reviewed and sent with patient. Home medications returned to patient: NA Equipment sent with: patient, N/A. patient verbalizes understanding of discharge instructions. AVS given to patient. Additional education completed. RAL ACTIVITIES THERAPIST * Michele Chaudhary MD - 12/18/2022 1:48 [...] advised her to discuss that with her stave block roller outpatient. Interval History: She feels well. Not [...] Lisinopril-Hydrochlorothiazide Rash Niacin Rash and Itching itch [place] Rash Pioglitazone Rash Itchy rash Physical [...] medications, labs and imaging. Michele Chaudhary MD [facility] Office phone :[phone] Pager: [phone] RAL ACTIVITIES THERAPIST * Marco Santacruz RN - 12/18/2022 11:59 AM CST Patient has been assessed for Home Oxygen needs. Oxygen readings: *Pulse oximetry (SpO2) = 97% on room air at rest while awake. *SpO2 = 96% on room air during activity/with exercise. RAL ACTIVITIES THERAPIST * Lisa Ospina MD - 12/17/2022 4:[address] [facility] Medicine Progress Note - Hospitalist Service Date [...] colonoscopy Type 2 diabetes mellitus On glipizide [place]. - MDSSI --Started Lantus 6 units Hypertension [place] amlodipine, furosemide, labetalol, clonidine Diet: Regular Diet [...] PM Lisa Ospina MD Hospitalist Service [facility] Securely message with [employer] (more info) Text page via [facility] Paging/Directory Interval History Weaned to 1L 02. [...] 2.5 (L) TOT PROTEIN: N/A LIPASE: N/A RAL ACTIVITIES THERAPIST * Michele Chaudhary MD - 12/17/2022 3:57 [...] Lisinopril-Hydrochlorothiazide Rash Niacin Rash and Itching itch [place] Rash Pioglitazone Rash Itchy rash Physical [...] 0545 12/13/22 1744 12/13/22 1233 12/13/22 0216 12/12/229 NA -- -- 128* -- -- -- [...] medications, labs and imaging. Michele Chaudhary MD [facility] Office phone :[phone] Pager: [phone] RAL ACTIVITIES THERAPIST * Aranza Self RN - 12/17/2022 2:42 PM CST Potassium [...] to treatment See Adult Hemodialysis flowsheet in [facility] for further details and post assessment. Machine water alarm in place and functioning. Transducer pods intact and checked every 15min. Pt returned via wheelchair transport. Chlorine/Chloramine water system checked every 4 hours. Outpatient Dialysis at at [facility] [place] on MWF Patient repositioned every 2 hours during the treatment. Post treatment report given to Todd Angela RN regarding 2.5L of fluid removed, last BP of 157/72, andpatient pain rating of 0/10. Please remove patient dressing on AVF and AVG needle sites 24 hours after dialysis. If leaking occurs please apply a Band-Aid. RAL ACTIVITIES THERAPIST * Lluvia Medley RD - 12/17/2022 1:35 [...] Medley RDN, LD Clinical Dietitian 3rd floor/ICU: [phone] All other floors: [phone] Weekend/holiday: [phone] Office: [phone] RAL ACTIVITIES THERAPIST * Karime Navarrete RN - 12/16/2022 10:20 PM CST Pt is A&OX3, on 0.5 L oxygen. LS wheezing and crackles present. Continues on PRN Duoneb, no dizziness, Pt denies N/V. No BM today. Voiding, ambulates to bathroom, SBA.no dizziness, no chills.c/o pain 8-10/21, takes PRN Oxycodone, refused Tylenol. RAL ACTIVITIES THERAPIST * David Treviño MD - 12/16/2022 3:[address] [facility] Renal Progress Note SHORTHAND WHITAKER FOR MY [...] = reaction, tdc = tunneled dialysis catheter, motor equipment captain = prior to admission, hd = [...] Lisinopril-Hydrochlorothiazide Rash Niacin Rash and Itching itch [place] Rash Pioglitazone Rash Itchy rash Physical [...] medications, labs and imaging. David Treviño MD [facility] [phone] RAL ACTIVITIES THERAPIST * Lisa Ospina MD - 12/16/2022 9:00 AM CST [facility] Medicine Progress Note - Hospitalist Service [...] colonoscopy Type 2 diabetes mellitus On glipizide [place]. - MDSSI --Started Lantus 6 units Hypertension [place] amlodipine, furosemide, labetalol, clonidine Diet: Regular Diet [...] PM Lisa Ospina MD Hospitalist Service [facility] Securely message with [employer] (more info) Text page via [employer] Paging/Directory Interval History Weaned to 1L 02. [...] 2.6 (L) TOT PROTEIN: N/A LIPASE: N/A RAL ACTIVITIES THERAPIST * Nidia Yanez DO - 12/15/2022 9:26 AM CDT [facility] Medicine Progress Note - Hospitalist Service [...] Unfortunately did not receive vancomycin on 12/14 2/2 provider error/not ordered. - Continue vancomycin while inpatient Colonic wall thickening Noted on CT. - Outpatient colonoscopy Type 2 diabetes mellitus On glipizide [place]. - MDSSI Hypertension Holding [place] amlodipine, furosemide, labetalol, clonidine 2/2 acute anemia [...] 12/15/2022 Nidia Yanez DO Hospitalist Service [facility] Securely message with [employer] (more info) Text page via [employer] Paging/Directory Interval History No acute overnight events. [...] checked every 4 hours. Outpatient Dialysis at [facility]. Post treatment report given to SUSANA Horner regarding 2L of fluid removed, last BP 172/85. Please remove patient dressing on AVF and AVG needle sites 24 hours after dialysis. If leaking occurs please apply a Band-Aid. Monika Jones RN * David Treviño MD - 12/14/2022 2:54 PM CDT [facility] Renal Progress Note SHORTHAND WHITAKER FOR MY [...] = reaction, tdc = tunneled dialysis catheter, motor equipment captain = prior to admission, hd = [...] Lisinopril-Hydrochlorothiazide Rash Niacin Rash and Itching itch [place] Rash Pioglitazone Rash Itchy rash Physical [...] medications, labs and imaging. David Treviño MD [facility] [phone] * Isabel Akers RN - 12/14/2022 2:44 [...] Akers RN, BSN Inpatient Care Coordination [facility] [phone] * Mitzi Munoz MD - 12/14/2022 10:06 [...] iron and erythropoietin stimulating agent as per stave block roller. At this time, no further transfusion needed. [...] Yanez, - 12/14/2022 8:[address] [facility] Medicine Progress Note - Hospitalist Service Date [...] colonoscopy Type 2 diabetes mellitus On glipizide [place]. - MDSSI Hypertension Holding [place] amlodipine, furosemide, labetalol, clonidine 2/2 acute anemia [...] 12/15/2022 Nidia Yanez DO Hospitalist Service [facility] Securely message with [employer] (more info) Text page via [employer] Paging/Directory Interval History No acute overnight events. [...] DO - 12/13/2022 2:[address] [facility] Hospitalist H&P Name: Maricruz Vanegas Date of : 1945 Age: [age] year old Date of admission: 12/12/2022 Primary care provider: Man Schneider Assessment and Plan: Maricruz Vanegas is a [...] Lisinopril-Hydrochlorothiazide Rash Niacin Rash and Itching itch [place] Rash Pioglitazone Rash Itchy rash Medications: Prior to Admission medications Medication Sig Last Dose Taking? Auth Provider Supercalender Operator End Date albuterol (PROVENTIL) (2.5 MG/3ML) 0.083% [...] times daily Unknown, Entered By History Yes flqnengv-vtodvhehl-tpgIYLZVaglmc (MAXITROL) 3.5-13510-9.[address] 0.25 inches Into the [...] EXAM: CTA ABDOMEN PELVIS WITH CONTRAST LOCATION: [facility] DATE: 12/13/2022 INDICATION: acute on chronic anemia, melena, please do GI bleed protocol. ESRD, on hemodialysis, Recent removal of peritoneal dialysis catheter COMPARISON: 11/28/2022 TECHNIQUE: CT angiogram abdomen pelvis during arterial phase of injection of IV contrast. 2D and 3DMIP reconstructions were performed by the clinical lab technologist. Dose reduction techniques were used. [...] Narrative EXAM: XR CHEST 2 VIEWS LOCATION: [facility] DATE: 12/13/2022 INDICATION: cough COMPARISON: 11/29/2022 Impression IMPRESSION: Heart size within normal limits. Calcified aortic arch. Mild streaky left basilar atelectasis or infiltrate. The right lung is clear. No pneumothorax. Arsenio Flores DO MPH [facility] Hospitalist [place] [address] 12/13/2022 documented in this encounter Consult Notes * Leslie Desai, ROUNDER AND BACKER - 12/15/2022 10:57 AM CDTAssociated Order(s): CARE MANAGEMENT / SOCIAL WORK IP CONSULT Care Management Initial Consult General Information Assessment completed with: Patient, Patient Type of CM/SW Visit: Initial Assessment Primary Care Provider verified and updated as needed: No Readmission within the last 30 days: Reason for Consult: discharge planning, care coordination/care conference Advance Care Planning: Communication Assessment Patient's communication style: spoken language (Citizen Of [place] or Bilingual) Hearing Difficulty or Deaf: no [...] chart review, sons do not have a belly dump driver's license and patient does not drive. She typically uses transit for rides. JUAN Gaviria LGSW Emergency Room [employer] Mechanic Please contact the SW on the floor [...] determine at this time REASON FOR ASSESSMENT Maricruz Vanegas is a 77 year old [...] Medley RDN, LD Clinical Dietitian 3rd floor/ICU: [phone] All other floors: [phone] Weekend/holiday: [phone] Office: [phone] * David Treviño MD - 12/13/2022 5:50 PM CDTAssociated Order(s): NEPHROLOGY IP CONSULT [facility] RENAL CONSULTATION NOTE REFERRING MD: Dr. [...] = reaction, tdc = tunneled dialysis catheter, motor equipment captain = prior to admission, hd = hemodialysis, pd = peritoneal dialysis, hhd = home hemodialysis, edw = estimated dry wt HPI: Maricruz Vanegas is a 77 year old female c ESKD 2 DM2 who dialyses MWF via a LAF at the [facility] under the care of Dr. Mena and was admitted on 12/12/2022 c weakness, d/l andfound to have severe anemia. Notes from Drs. Tapia (ER), Mark (Hosp) were reviewed. Case d/w Dr. Munoz (H/O). Pt has been feeling weakness, d/l and fatigue for the past couple of days [place]. She also noted dark stools, but didn't see any blood. She has a cough but her breathing is ok and she denies cp. No f/c/n/v/itching. She has been at dialysis and didn't have any major issues c her run yday. Of note, the pt was admitted to [facility] a couple of wks ago c COVID pneumonia. She was hosp for 2d and then was subsequently admitted to [facility] for 8d c peritonitis. During this admission her PD catheter was removed and she was started on HD via a LAF. Reviewing historical labs, her hb was ~12 when she was admitted to [facility]. It has steadily drifted down and when she was dc'd from [facility] it was down to the high 7s. [...] Rash 11/24/2022 Niacin Rash and Itching 05/13/2006 [place] trees Rash 05/16/2010 Pioglitazone Rash 10/11/2020 FH: [...] 1233 12/13/22 1059 12/13/22 0607 12/13/22 0216 12/12/22214812/12/22 2139 NA 137 -- -- -- 137 [...] medications, labs and imaging. David Treviño MD [facility] [phone] * Mitzi Munoz MD - 12/13/2022 12:45 PM CDT This consult has been requested by Silvia Burger PA-C for anemia. Ms. Guilherme is a 77-year-old female with multiple medical [...] She will have it monitored through her stave block roller. 5. Patient and her son had few [...] were not included. GASTROENTEROLOGY CONSULTATION Maricruz Vanegas [address] [place] [id number] 77 year old female Admission Date/Time: 12/12/2022 Primary Care Provider: Man Schneider We were asked to see the patient [...] times daily 03/01/22 Unknown, Entered By History vwhuefty-bglxbfnpi-qlnWIDZKypukq (MAXITROL) 3.5-13740-1.[address] 0.25 inches Into the [...] Lisinopril-Hydrochlorothiazide Rash Niacin Rash and Itching itch [place] Rash Pioglitazone Rash Itchy rash SOCIAL [...] lab test results. Recent Labs Lab Test 12/13/2251712/12/22230112/12/22214812/05/22 0706 WBC 17.3* -- 18.4* 11.5* HGB [...] EXAM: CTA ABDOMEN PELVIS WITH CONTRAST LOCATION: [facility] DATE: 12/13/2022 INDICATION: acute on chronic anemia, melena, please do GI bleed protocol. ESRD, on hemodialysis, Recent removal of peritoneal dialysis catheter COMPARISON: 11/28/2022 TECHNIQUE: CT angiogram abdomen pelvis during arterial phase of injection of IV contrast. 2D and 3DMIP reconstructions were performed by the clinical lab technologist. Dose reduction techniques were used. [...] including patient evaluation, reviewing documentation/test results, and customs and border protection officer. Thank you for asking us to participate in the care of this patient. Silvia Burger, NADER [facility] ([facility]) Addendum: Reviewed with Dr. Ramirez. Will [...] 20 minutes spent reviewing documentation/test results, and customs and border protection officer. Adama Ramirez MD Thank you for the [...] RN - 12/13/2022 2:[address] [facility] ED Nurse Handoff Report ED Chief complaint: [...] Lisinopril-Hydrochlorothiazide Rash Niacin Rash and Itching itch [place] Rash Pioglitazone Rash Itchy rash Code Status: Full Code Activity level - Baseline/Home: independent. Activity Level - Current: assist of 2. Lift room needed: No. Bariatric: No Relations Mgr Needed: No Isolation: No. Infection: Not Applicable. [...] for generalized weakness. Patient was admitted to [facility] from November 28 December 06 for peritonitis [...] ADULT ABO/RH(D) O POS SPECIMEN EXPIRATION DATE [id number] PREPARE RED BLOOD CELLS (UNIT) BLOOD CULTURE [...] solution 500 mL (49 mLs Intravenous $Given 12/13/22 0049) Drips infusing: No For the majority of the shift this patient was Green. Interventions performed were none. Sepsis treatment initiated: No Cares/treatment/interventions/medications to be completed following ED care: administer blood when it arrives. Continue with plan of care. ED Nurse Name: Pan Knowles RN 2:24 AM RECEIVING UNIT ED HANDOFF REVIEW Above ED Nurse Handoff Report was reviewed: Yes Reviewed by: Jbe Pineda RN on December 13, 2022 at [...] and asked to go to the bathroom. Front Office Agent asked the pt how well she gets aroundand if she walks at home. Pt stated that she does. Front Office Agent asked her if she could sit up in the bed to test if she could sit up and hold herself up. Pt did not have great trunk control. Front Office Agent informed the pt that her two options were bed awad or purewic. Pt opted for purewic. When placing the purewic sign writer hand noticed stool in her underwear. When cleaning up pt sign writer hand noted that there was stool cakedonto her [...] here, Triage Assessment (Adult) Row Name 12/12/22 5903 Triage Assessment Airway WDL WDL Respiratory WDL [...] for generalized weakness. Patient was admitted to [facility] from [facility] 28 December 06 for peritonitis [...] Patient Only Review of External Notes: Recent ridges discharge summary reviewed see above in the [...] 2330 123/52 -- -- 71 -- -- 12/12/222154 -- -- -- -- -- 91 % 12/12/222152 -- 97.9 ??F (36.6 ??C) Oral -- 20 -- 12/12/222148 119/53 -- -- 63 13 -- 12/12/222144 -- 97.7 ??F (36.5 ??C) Oral -- [...] ADULT ABO/RH(D) O POS SPECIMEN EXPIRATION DATE [id number] PREPARE RED BLOOD CELLS (UNIT) BLOOD CULTURE [...] tablet 5 mg (5 mg Oral $Given 12/13/22 0216) sodium chloride (PF) 0.9% PF flush 100 [...] care of Dr. Flores. Impression & Plan [facility] Diagnoses: and None Medical Decision Makin-year-old female [...] on dialysis (H) N18.6 Z99.2 Scribe Disclosure: Diego Adama Paul, am serving as a scribe at 10:58 PM on 12/12/2022 to document services personally performed by Jason Tapia MD based on my observations and the provider's statements to me. 12/12/2022 Jason Taipa MD Walker, Jerome Richard, MD 12/13/22 0259 [...] Promote Comfort Recent Flowsheet Documentation Taken 12/18/2022 0833 by Marco Santacruz RN Pain Management Interventions: medication (see MAR) Problem: Fall Injury Risk Goal: Absence of Fall and Fall-Related Injury Intervention: Identify and Manage Contributors Recent Flowsheet Documentation Taken 12/18/2022899 by Marco Santacruz RN Medication Review/Management: medications reviewed Intervention: Promote Injury-Free Environment Recent Flowsheet Documentation Taken 12/18/2022899 by Marco Santacruz RN Safety Promotion/Fall Prevention: nonskid shoes/slippers when out of bed Goal Outcome Evaluation: RAL ACTIVITIES THERAPIST * Plan of Care - Juani Sharma RN - 12/18/2022 6:20 AM CST Care continued: 2299 - 729 Goal Outcome Evaluation: No BM this shift, pt endorses having one on days without any blood/bleeding Dialysis on days, no complications to fistula noted Pt endorsed some tightness with breathing and requested a neb treatment this shift Also endorsed increased levels of pain and one time dose of pain medication ordered - See APR VSS BP 133/50 (BP Location: Right arm, [...] 12/18/2022 Juani Sharma RN 12/18/2022 6:20 AM RAL ACTIVITIES THERAPIST * Plan of Care - Myrna Reese RN - 12/17/2022 10:59 PM CST A&Ox4. SBAx1. VSS. 02 - 100% on 1L via NC. LS - clear. Blood sugar at 2200 - 310. No insulin order for 0. Pt had eaten at a snack box, 2 ice creams andhad a cola, just after 2099. pgd. Melatonin requested at 2114. RAL ACTIVITIES THERAPIST * Plan of Care - Kaylan Angela [...] of care: Protonix BID, IV Vanco x1. RAL ACTIVITIES THERAPIST * Plan of Care - Kaylan Angela RN - 12/17/2022 6:19 PM CST Goal Outcome Evaluation: progressing RAL ACTIVITIES THERAPIST * Pharmacy-Vancomycin Dosing Service - Rajan Hammond [facility] - 12/17/2022 2:13 PM CST Pharmacy [...] (LASIX) tablet 40 mg Note to Pharmacy: [place] Sig:Take 40 mg by mouth daily 40 [...] appropriate in 1-3 Days Rajan Hammond RPH RAL ACTIVITIES THERAPIST * Plan of Care - Florence Emery RN - 12/17/2022 5:41 AM CST Goal Outcome [...] home with family support when medically ready. RAL ACTIVITIES THERAPIST * Pharmacy-Vancomycin Dosing Service - Derek Hernandez RPH - 12/16/2022 4:03 PM CST Pharmacy Vancomycin [...] (LASIX) tablet 40 mg Note to Pharmacy: [place] Sig:Take 40 mg by mouth daily 40 mg Oral DAILY 12/15/2231 12/15/[address] [place]o - receiving intermittent dosing [...] post-HD vanco dose will be determined by 116 am level (ordered) as per policy Vancomycin monitoring method: Trough (Method 2 = manual dose calculation) Vancomycin therapeutic monitoring goal: 15-20 mg/L Pharmacy will check vancomycin levels as appropriate in tomorrow 12/17, the morning of next HD session . Serum creatinine levels will be ordered daily for the first week of therapy and at least twice weekly for subsequent weeks. Derek Hernandez RPH RAL ACTIVITIES THERAPIST * Plan of Care - Nahomi Sainz [...] cares. Will continue to provide supportive care. RAL ACTIVITIES THERAPIST * Plan of Care - Florence Emery [...] support when no longer requiring supplemental O2. RAL ACTIVITIES THERAPIST * Plan of Care - Nahomi Sainz [...] (LASIX) tablet 40 mg Note to Pharmacy: [place] Sig:Take 40 mg by mouth daily 40 mg Oral DAILY 12/15/22 0931 12/15/22 1000 vancomycin (VANCOCIN) 1,000 mg in [...] Tele: sr with inverted t waves per hospital television rental clerk LS:clear GI:bs+, small dark stool. Tolerated clear [...] update. Information Source(s): Patient, [facility] records, [facility] via in-person Pertinent Information: Patient discharged 12/06 stated no changes to medications Changes made to [place] medication list: Added: Gabapentin Deleted: None Changed: None Medication Affordability: Not including over the counter (OTC) medications, was there a time in the past 3 months when you did not take your medications as prescribed because of cost?: Unable to Assess Allergies reviewed with patient and updates made in EHR: unable to assess Medication History Completed By: Maris Cárdenas RPH 12/13/2022 11:39 AM [place] Med List Medication Sig Last Dose albuterol [...] mg by mouth 3 times daily 12/12/2022 vxathuna-kstsipzsr-tsiELTDTiurke (MAXITROL) [id number] 0.25 inches Into the [...] PRN * Plan of Care - Jeb Pineda RN - 12/13/2022 3:51 AM CDT Pt [...] GLUCOSE BY METER Routine 12/18/2022 12:47 PM GENERAL ACTIVITIES THERAPIST RENAL PANEL Routine 12/18/2022 8:45 AM GENERAL ACTIVITIES THERAPIST GLUCOSE BY METER Routine 12/18/2022 8:08 AM GENERAL ACTIVITIES THERAPIST GLUCOSE BY METER Routine 12/18/2022 1:44 AM GENERAL ACTIVITIES THERAPIST GLUCOSE BY METER Routine 12/17/2022 10:16 PM GENERAL ACTIVITIES THERAPIST GLUCOSE BY METER Routine 12/17/2022 10:10 PM GENERAL ACTIVITIES THERAPIST GLUCOSE BY METER Routine 12/17/2022 10:07 PM GENERAL ACTIVITIES THERAPIST HELICOBACTER PYLORI ANTIGEN STOOL Routine 12/17/2022 6:24 PM GENERAL ACTIVITIES THERAPIST GLUCOSE BY METER Routine 12/17/2022 6:12 PM GENERAL ACTIVITIES THERAPIST GLUCOSE BY METER Routine 12/17/2022 12:40 PM GENERAL ACTIVITIES THERAPIST GLUCOSE BY METER Routine 12/17/2022 8:08 AM GENERAL ACTIVITIES THERAPIST VANCOMYCIN LEVEL Routine 12/17/2022 6:31 AM GENERAL ACTIVITIES THERAPIST RENAL PANEL Routine 12/17/2022 6:31 AM GENERAL ACTIVITIES THERAPIST HEMOGLOBIN Routine 12/17/2022 6:31 AM GENERAL ACTIVITIES THERAPIST GLUCOSE BY METER Routine 12/17/2022 2:12 AM GENERAL ACTIVITIES THERAPIST GLUCOSE BY METER Routine 12/16/2022 10:06 PM GENERAL ACTIVITIES THERAPIST GLUCOSE BY METER Routine 12/16/2022 5:31 PM GENERAL ACTIVITIES THERAPIST GLUCOSE BY METER Routine 12/16/2022 3:41 PM GENERAL ACTIVITIES THERAPIST GLUCOSE BY METER Routine 12/16/2022 11:21 AM GENERAL ACTIVITIES THERAPIST GLUCOSE BY METER Routine 12/16/2022 7:24 AM GENERAL ACTIVITIES THERAPIST VANCOMYCIN LEVEL Timed 12/16/2022 6:12 AM GENERAL ACTIVITIES THERAPIST RENAL PANEL Routine 12/16/2022 6:12 AM GENERAL ACTIVITIES THERAPIST CBC WITH PLATELETS Routine 12/16/2022 6:12 AM GENERAL ACTIVITIES THERAPIST GLUCOSE BY METER Routine 12/16/2022 1:02 AM [...] (ABNORMAL) Glucose by meter (12/18/2022 12:47 PM GENERAL ACTIVITIES THERAPIST) GLUCOSE BY METER POCT 278(H) 70 - 99 mg/dL 12/18/2022 12:53 PM GENERAL ACTIVITIES THERAPIST LABORATORY POC Blood, Capillary BLOOD SPECIMEN / Unknown 12/18/2022 12:47 PM GENERAL ACTIVITIES THERAPIST 12/18/2022 12:53 PM GENERAL ACTIVITIES THERAPIST Arsenio Flores DO LAB - BEAKER POCT RH LABORATORY [facility] Acute Care Lab [address] Lab (1st floor, no room number) [place] [address], [facility] [phone] * (ABNORMAL) Renal panel (12/18/2022 8:45 AM GENERAL ACTIVITIES THERAPIST) Pathologist [facility] Sodium 135 135 - 145 mmol/L 12/18/2022 9:44 AM GENERAL ACTIVITIES THERAPIST LABORATORY Comment:Reference intervals for this test were updated on 11/06/2022 to more accurately reflect our healthy population. There may be differences in the flagging of prior results with similar values performed with this method. Interpretation of those prior results can be made in the context of the updated reference intervals. Potassium 4.2 3.4 - 5.3 mmol/L 12/18/2022 9:44 AM GENERAL ACTIVITIES THERAPIST LABORATORY Chloride 99 98 - 107 mmol/L 12/18/2022 9:44 AM GENERAL ACTIVITIES THERAPIST LABORATORY Carbon Dioxide (CO2) 29 22 - 29 mmol/L 12/18/2022 9:44 AM GENERAL ACTIVITIES THERAPIST LABORATORY Anion Gap 7 7 - 15 mmol/L 12/18/2022 9:44 AM GENERAL ACTIVITIES THERAPIST LABORATORY Glucose 128(H) 70 - 99 mg/dL 12/18/2022 9:44 AM GENERAL ACTIVITIES THERAPIST LABORATORY Urea Nitrogen 17.7 8.0 - 23.0 mg/dL 12/18/2022 9:44 AM GENERAL ACTIVITIES THERAPIST LABORATORY Creatinine 2.67(H) 0.51 - 0.95 mg/dL 12/18/2022 9:44 AM GENERAL ACTIVITIES THERAPIST LABORATORY GFR Estimate 18(L) >60 mL/min/1. 73m2 12/18/2022 9:44 AM GENERAL ACTIVITIES THERAPIST LABORATORY Calcium 7.6(L) 8.8 - 10.2 mg/dL 12/18/2022 9:44 AM GENERAL ACTIVITIES THERAPIST LABORATORY Albumin 2.6(L) 3.5 - 5.2 g/dL 12/18/2022 9:44 AM GENERAL ACTIVITIES THERAPIST LABORATORY Phosphorus 2.3(L) 2.5 - 4.5 mg/dL 12/18/2022 9:44 AM GENERAL ACTIVITIES THERAPIST LABORATORY Blood STRUCTURE OF RIGHT UPPER LIMB / Unknown Venipuncture / Unknown 12/18/2022 8:45 AM GENERAL ACTIVITIES THERAPIST 12/18/2022 8:50 AM GENERAL ACTIVITIES THERAPIST David Treviño MD LAB - BLOOD ORDERABL ES [facility] Lab [address] Lab (1st floor, no room number) [place] [address], [facility] [phone] * (ABNORMAL) Glucose by meter (12/18/2022 8:08 AM GENERAL ACTIVITIES THERAPIST) [facility] Signature GLUCOSE BY METER POCT 125(H) 70 - 99 mg/dL 12/18/2022 8:14 AM GENERAL ACTIVITIES THERAPIST LABORATORY POC Blood, Capillary BLOOD SPECIMEN / Unknown 12/18/2022 8:08 AM GENERAL ACTIVITIES THERAPIST 12/18/2022 8:14 AM GENERAL ACTIVITIES THERAPIST Arsenio Flores DO LAB - BEAKER POCT LABORATORY [facility] Lab [address] Lab (1st floor, no room number) [place] [address], [facility] [phone] * (ABNORMAL) Glucose by meter (12/18/2022 1:44 AM GENERAL ACTIVITIES THERAPIST) GLUCOSE BY METER POCT 298(H) 70 - 99 mg/dL 12/18/2022 1:50 AM GENERAL ACTIVITIES THERAPIST RH LABORATORY POC Blood, Capillary BLOOD SPECIMEN / Unknown 12/18/2022 1:44 AM GENERAL ACTIVITIES THERAPIST 12/18/2022 1:50 AM GENERAL ACTIVITIES THERAPIST Arsenio DE LA ROSA - ChumbyKYRIE POCT LABORATORY [facility] Lab [address] Lab (1st floor, no room number) [place] [id number], [facility] [phone] * (ABNORMAL) Glucose by meter (12/17/2022 10:16 PM GENERAL ACTIVITIES THERAPIST) GLUCOSE BY METER POCT 310(H) 70 - 99 mg/dL 12/17/2022 10:23 PM GENERAL ACTIVITIES THERAPIST RH LABORATORY POC Blood, Capillary BLOOD SPECIMEN / Unknown 12/17/2022 10:16 PM GENERAL ACTIVITIES THERAPIST 12/17/2022 10:23 PM GENERAL ACTIVITIES THERAPIST Arsenio DE LA ROSA [employer] RNONY POCT LABORATORY [facility] Lab [address] Lab (1st floor, no room number) [place] [address], [facility] [phone] * (ABNORMAL) Glucose by meter (12/17/2022 10:10 PM GENERAL ACTIVITIES THERAPIST) GLUCOSE BY METER POCT 16(LL) 70 - 99 mg/dL 12/17/2022 10:32 PM GENERAL ACTIVITIES THERAPIST RH LABORATORY POC Blood, Capillary BLOOD SPECIMEN / Unknown 12/17/2022 10:10 PM GENERAL ACTIVITIES THERAPIST 12/17/2022 10:32 PM GENERAL ACTIVITIES THERAPIST Arsenio DE LA ROSA - BEKYRIE POCT LABORATORY [facility] Lab [address] [facility] Lab (1st floor, no room number) [place] [address], [facility] [phone] * (ABNORMAL) Glucose by meter (12/17/2022 10:07 PM GENERAL ACTIVITIES THERAPIST) GLUCOSE BY METER POCT 16(LL) 70 - 99 mg/dL 12/17/2022 10:15 PM GENERAL ACTIVITIES THERAPIST LABORATORY POC Comment:Dr/RN Notified Blood, Capillary BLOOD SPECIMEN / Unknown 12/17/2022 10:07 PM GENERAL ACTIVITIES THERAPIST 12/17/2022 10:15 PM GENERAL ACTIVITIES THERAPIST Arsenio Flores DO LAB - BEAKER POCT Performing Organization Address City/[facility]/ZIP Co de Phone Number LABORATORY [facility] [address] [facility] [facility] (1st floor, no room number) [place] [address], [facility] [phone] * Helicobacter pylori Antigen Stool (12/17/2022 6:24 PM GENERAL ACTIVITIES THERAPIST) Helicobacter pylori Antigen Stool Negative Negative 12/18/2022 10:41 AM GENERAL ACTIVITIES THERAPIST [facility]/PROT/END O Comment:Negative for Helicob acter pylori antigen by enzyme immunoassay. A negative result indicates the absence of H. pylori antigen or that the level of antigen is below the level of detection. Stool RECTAL CONTENTS / Unknown Non-blood Collection / Unknown 12/17/2022 6:24 PM GENERAL ACTIVITIES THERAPIST 12/17/2022 6:36 PM GENERAL ACTIVITIES THERAPIST Adama Ramirez MD LAB - STOOLS OR DERABLES [facility]/PROT/ENDO [facility]/Prot/Endo [address], [address] [place] [address], [facility] [phone] * Glucose by meter (12/17/2022 6:12 PM GENERAL ACTIVITIES THERAPIST) GLUCOSE BY METER POCT 70 70 - 99 mg/dL 12/19/2022 7:26 AM GENERAL ACTIVITIES THERAPIST RH LABORATORY POC Blood, Capillary BLOOD SPECIMEN / Unknown 12/17/2022 6:12 PM GENERAL ACTIVITIES THERAPIST 12/19/2022 7:26 AM GENERAL ACTIVITIES THERAPIST Arsenio Tesfaye Mark DO LU - RONNY POCT LABORATORY [facility] Lab [address] Lab (1st floor, no room number) [place] [address], [place] [phone] * (ABNORMAL) Glucose by meter (12/17/2022 12:40 PM GENERAL ACTIVITIES THERAPIST) GLUCOSE BY METER POCT 261(H) 70 - 99 mg/dL 12/17/2022 12:47 PM GENERAL ACTIVITIES THERAPIST RH LABORATORY POC Blood, Capillary BLOOD SPECIMEN / Unknown 12/17/2022 12:40 PM GENERAL ACTIVITIES THERAPIST 12/17/2022 12:47 PM GENERAL ACTIVITIES THERAPIST Arsenio Tesfaye Elyiz DO LU - RONNY POCT Performing Organization Address City/[facility]/ZIP Co de Phone Number LABORATORY [facility] Lab [address] Lab (1st floor, no room number) [place] [address], [place] [phone] * (ABNORMAL) Glucose by meter (12/17/2022 8:08 AM GENERAL ACTIVITIES THERAPIST) GLUCOSE BY METER POCT 112(H) 70 - 99 mg/dL 12/17/2022 8:14 AM GENERAL ACTIVITIES THERAPIST RH LABORATORY POC Blood, Capillary BLOOD SPECIMEN / Unknown 12/17/2022 8:08 AM GENERAL ACTIVITIES THERAPIST 12/17/2022 8:14 AM GENERAL ACTIVITIES THERAPIST Arsenio DE LA ROSA - RONNY POCT LABORATORY [facility] Lab [address] Lab (1st floor, no room number) [place] [address], [place] [phone] * (ABNORMAL) Renal panel (12/17/2022 6:31 AM GENERAL ACTIVITIES THERAPIST) Sodium 128(L) 135 - 145 mmol/L 12/17/2022 7:36 AM [facility] LABORATORY Comment:Reference intervals for this test were updated on 11/06/2022 to more accurately reflect our healthy population. There may be differences in the flagging of prior results with similar values performed with this method. Interpretation of those prior results can be made in the context of the updated reference intervals. Potassium 5.0 3.4 - 5.3 mmol/L 12/17/2022 7:36 AM [facility] LABORATORY Chloride 93(L) 98 - 107 mmol/L 12/17/2022 7:36 AM [facility] LABORATORY Carbon Dioxide (CO2) 25 22 - 29 mmol/L 12/17/2022 7:36 AM [facility] LABORATORY Anion Gap 10 7 - 15 mmol/L 12/17/2022 7:36 AM [facility] LABORATORY Glucose 86 70 - 99 mg/dL 12/17/2022 7:36 AM [facility] LABORATORY Urea Nitrogen 30.8(H) 8.0 - 23.0 mg/dL 12/17/2022 7:36 AM [facility] LABORATORY Creatinine 3.80(H) 0.51 - 0.95 mg/dL 12/17/2022 7:36 AM [facility] LABORATORY GFR Estimate 12(L) >60 mL/min/1. 73m2 12/17/2022 7:36 AM [facility] LABORATORY Calcium 7.8(L) 8.8 - 10.2 mg/dL 12/17/2022 7:36 AM [facility] LABORATORY Albumin 2.5(L) 3.5 - 5.2 g/dL 12/17/2022 7:36 AM [facility] LABORATORY Phosphorus 2.1(L) 2.5 - 4.5 mg/dL 12/17/2022 7:36 AM [facility] LABORATORY Blood STRUCTURE OF RIGHT HAND / Unknown Venipuncture / Unknown 12/17/2022 6:31 AM GENERAL ACTIVITIES THERAPIST 12/17/2022 6:49 AM GENERAL ACTIVITIES THERAPIST David Treviño MD LAB - BLOOD ORDERABL ES [facility] Lab [address] Lab (1st floor, no room number) [place] [address], [facility] [phone] * Vancomycin level (12/17/2022 6:31 AM GENERAL ACTIVITIES THERAPIST) Vancomycin 16.0 ug/mL 12/17/2022 8:27 AM GENERAL ACTIVITIES THERAPIST LABORATORY Comment: Traditional Dosing Therapeutic Range: Trough 10-15 ug/mL Peak 20-40 ug/mL Critical: Greater than 25.0 ug/mL Blood STRUCTURE OF RIGHT HAND / Unknown Venipuncture / Unknown 12/17/2022 6:31 AM GENERAL ACTIVITIES THERAPIST 12/17/2022 6:49 AM GENERAL ACTIVITIES THERAPIST Arsenio Flores DO LAB - BLOOD ORDERAB LES [facility] Care Lab [address] Lab (1st floor, no room number) [place] [address], [facility] [phone] * (ABNORMAL) Hemoglobin (12/17/2022 6:31 AM GENERAL ACTIVITIES THERAPIST) Hemoglobin 7.1(L) 11.7 - 15.7 g/dL 12/17/2022 6:53 AM GENERAL ACTIVITIES THERAPIST LABORATORY Blood STRUCTURE OF RIGHT HAND / Unknown Venipuncture / Unknown 12/17/2022 6:31 AM GENERAL ACTIVITIES THERAPIST 12/17/2022 6:50 AM GENERAL ACTIVITIES THERAPIST Lisa Ospina DO LAB - BLOOD ORDERABL ES [facility] Care Lab [address] Lab (1st floor, no room number) [place] [address], [facility] [phone] * (ABNORMAL) Glucose by meter (12/17/2022 2:12 AM GENERAL ACTIVITIES THERAPIST) GLUCOSE BY METER POCT 130(H) 70 - 99 mg/dL 12/17/2022 2:19 AM GENERAL ACTIVITIES THERAPIST LABORATORY POC Blood, Capillary BLOOD SPECIMEN / Unknown 12/17/2022 2:12 AM GENERAL ACTIVITIES THERAPIST 12/17/2022 2:19 AM GENERAL ACTIVITIES THERAPIST Arsenio DE LA ROSA - RONNY POCT LABORATORY [facility] Acute Care Lab [address] Lab (1st floor, no room number) [place] [address], [place] [phone] * (ABNORMAL) Glucose by meter (12/16/2022 10:06 PM GENERAL ACTIVITIES THERAPIST) GLUCOSE BY METER POCT 170(H) 70 - 99 mg/dL 12/16/2022 10:12 PM GENERAL ACTIVITIES THERAPIST RH LABORATORY POC Blood, Capillary BLOOD SPECIMEN / Unknown 12/16/2022 10:06 PM GENERAL ACTIVITIES THERAPIST 12/16/2022 10:12 PM GENERAL ACTIVITIES THERAPIST Arsenio GRIFFITH POCT Performing Organization Address [facility]/ZIP Co de Phone Number LABORATORY [facility] Acute Care Lab [address] Lab (1st floor, no room number) [place] [address], [place] [phone] * Glucose by meter (12/16/2022 5:31 PM GENERAL ACTIVITIES THERAPIST) GLUCOSE BY METER POCT 92 70 - 99 mg/dL 12/16/2022 5:38 PM GENERAL ACTIVITIES THERAPIST LABORATORY POC Blood, Capillary BLOOD SPECIMEN / Unknown 12/16/2022 5:31 PM GENERAL ACTIVITIES THERAPIST 12/16/2022 5:38 PM GENERAL ACTIVITIES THERAPIST Arsenio DE LA ROSA - RONNY POCT LABORATORY [facility] Acute [facility] Lab [address] Lab (1st floor, no room number) [place] [address], [place] [phone] * (ABNORMAL) Glucose by meter (12/16/2022 3:41 PM GENERAL ACTIVITIES THERAPIST) GLUCOSE BY METER POCT 122(H) 70 - 99 mg/dL 12/16/2022 3:47 PM GENERAL ACTIVITIES THERAPIST RH LABORATORY POC Blood, Capillary BLOOD SPECIMEN / Unknown 12/16/2022 3:41 PM GENERAL ACTIVITIES THERAPIST 12/16/2022 3:47 PM GENERAL ACTIVITIES THERAPIST Arsenio DE LA ROSA - RONNY POCT LABORATORY [facility] Lab [address] Lab (1st floor, no room number) [place] [address], [place] [phone] * (ABNORMAL) Glucose by meter (12/16/2022 11:21 AM GENERAL ACTIVITIES THERAPIST) GLUCOSE BY METER POCT 316(H) 70 - 99 mg/dL 12/16/2022 11:28 AM GENERAL ACTIVITIES THERAPIST RH LABORATORY POC Blood, Capillary BLOOD SPECIMEN / Unknown 12/16/2022 11:21 AM GENERAL ACTIVITIES THERAPIST 12/16/2022 11:28 AM GENERAL ACTIVITIES THERAPIST Arsenio DE LAR OSA - RONNY POCT Performing Organization Address City/[facility]/ZIP Co de Phone Number LABORATORY [facility] Lab [address] Lab (1st floor, no room number) [place] [address], [place] [phone] * (ABNORMAL) Glucose by meter (12/16/2022 7:24 AM GENERAL ACTIVITIES THERAPIST) GLUCOSE BY METER POCT 155(H) 70 - 99 mg/dL 12/16/2022 7:31 AM GENERAL ACTIVITIES THERAPIST RH LABORATORY POC Blood, Capillary BLOOD SPECIMEN / Unknown 12/16/2022 7:24 AM GENERAL ACTIVITIES THERAPIST 12/16/2022 7:31 AM GENERAL ACTIVITIES THERAPIST Arsenio DE LA ROSA - RONNY POCT LABORATORY [facility] Lab [address] Lab (1st floor, no room number) [place] [address], [place] [phone] * (ABNORMAL) Renal panel (12/16/2022 6:12 AM GENERAL ACTIVITIES THERAPIST) Sodium 135 135 - 145 mmol/L 12/16/2022 6:59 AM [facility] LABORATORY Comment:Reference intervals for this test were updated on 11/06/2022 to more accurately reflect our healthy population. There may be differences in the flagging of prior results with similar values performed with this method. Interpretation of those prior results can be made in the context of the updated reference intervals. Potassium 4.2 3.4 - 5.3 mmol/L 12/16/2022 6:59 AM [facility] LABORATORY Chloride 98 98 - 107 mmol/L 12/16/2022 6:59 AM [facility] LABORATORY Carbon Dioxide (CO2) 29 22 - 29 mmol/L 12/16/2022 6:59 AM [facility] LABORATORY Anion Gap 8 7 - 15 mmol/L 12/16/2022 6:59 AM [facility] LABORATORY Glucose 146(H) 70 - 99 mg/dL 12/16/2022 6:59 AM [facility] LABORATORY Urea Nitrogen 23.6(H) 8.0 - 23.0 mg/dL 12/16/2022 6:59 AM [facility] LABORATORY Creatinine 3.42(H) 0.51 - 0.95 mg/dL 12/16/2022 6:59 AM [facility] LABORATORY GFR Estimate 13(L) >60 mL/min/1. 73m2 12/16/2022 6:59 AM [facility] LABORATORY Calcium 7.9(L) 8.8 - 10.2 mg/dL 12/16/2022 6:59 AM [facility] LABORATORY Albumin 2.6(L) 3.5 - 5.2 g/dL 12/16/2022 6:59 AM [facility] LABORATORY Phosphorus 1.7(L) 2.5 - 4.5 mg/dL 12/16/2022 6:59 AM [facility] LABORATORY Blood STRUCTURE OF RIGHT HAND / Unknown Venipuncture / Unknown 12/16/2022 6:12 AM GENERAL ACTIVITIES THERAPIST 12/16/2022 6:24 AM GENERAL ACTIVITIES THERAPIST David Treviño MD LAB - BLOOD ORDERABL ES LABORATORY [facility] Lab [address] Lab (1st floor, no room number) [place] [address], [facility] [phone] * (ABNORMAL) CBC with platelets (12/16/2022 6:12 AM GENERAL ACTIVITIES THERAPIST) WBC Count 14.8(H) 4.0 - 11.0 10e3/uL 12/16/2022 6:30 AM GENERAL ACTIVITIES THERAPIST RH LABORATORY RBC Count 2.31(L) 3.80 - 5.20 10e6/uL 12/16/2022 6:30 AM GENERAL ACTIVITIES THERAPIST LABORATORY Hemoglobin 7.2(L) 11.7 - 15.7 g/dL 12/16/2022 6:30 AM GENERAL ACTIVITIES THERAPIST LABORATORY Hematocrit 22.5(L) 35.0 - 47.0 % 12/16/2022 6:30 AM GENERAL ACTIVITIES THERAPIST LABORATORY MCV 97 78 - 100 fL 12/16/2022 6:30 AM GENERAL ACTIVITIES THERAPIST LABORATORY MCH 31.2 26.5 - 33.0 pg 12/16/2022 6:30 AM GENERAL ACTIVITIES THERAPIST LABORATORY MCHC 32.0 31.5 - 36.5 g/dL 12/16/2022 6:30 AM GENERAL ACTIVITIES THERAPIST LABORATORY RDW 19.5(H) 10.0 - 15.0 % 12/16/2022 6:30 AM GENERAL ACTIVITIES THERAPIST LABORATORY Platelet Count 237 150 - 450 10e3/uL 12/16/2022 6:30 AM GENERAL ACTIVITIES THERAPIST LABORATORY Blood STRUCTURE OF RIGHT HAND / Unknown Venipuncture / Unknown 12/16/2022 6:12 AM GENERAL ACTIVITIES THERAPIST 12/16/2022 6:24 AM GENERAL ACTIVITIES THERAPIST Nidia Yanez DO LAB - BLOOD ORDER JOSEFA LABORATORY [facility] Care Lab [address] Lab (1st floor, no room number) [place] [address], [facility] [phone] * Vancomycin level (12/16/2022 6:12 AM GENERAL ACTIVITIES THERAPIST) Vancomycin 17.3 ug/mL 12/16/2022 7:11 AM GENERAL ACTIVITIES THERAPIST RH LABORATORY Comment: Traditional Dosing Therapeutic Range: Trough 10-15 ug/mL Peak 20-40 ug/mL Critical: Greater than 25.0 ug/mL Blood STRUCTURE OF RIGHT HAND / Unknown Venipuncture / Unknown 12/16/2022 6:12 AM GENERAL ACTIVITIES THERAPIST 12/16/2022 6:24 AM GENERAL ACTIVITIES THERAPIST Nidia Yanez DO LAB - BLOOD ORDER JOSEFA LABORATORY [facility] Lab [address] Lab (1st floor, no room number) [place] [address], [place] [phone] * (ABNORMAL) Glucose by meter (12/16/2022 1:02 AM CDT) GLUCOSE BY METER POCT 171(H) 70 - 99 mg/dL 12/16/2022 1:09 AM CDT LABORATORY POC Blood, Capillary BLOOD SPECIMEN / Unknown 12/16/2022 1:02 AM CDT 12/16/2022 1:09 AM CDT Arsenio DE LA ROSA - BEAKER POCT Performing Organization Address City/[facility]/ZIP Co de Phone Number LABORATORY [facility] Lab [address] Lab (1st floor, no room number) [place] [address], [place] [phone] * (ABNORMAL) Glucose by meter (12/15/2022 10:08 PM CDT) GLUCOSE BY METER POCT 226(H) 70 - 99 mg/dL 12/15/2022 10:14 PM CDT LABORATORY POC Blood, Capillary BLOOD SPECIMEN / Unknown 12/15/2022 10:08 PM CDT 12/15/2022 10:14 PM CDT Arsenio Flores DO LAB - BEAKER POCT LABORATORY [facility] Acute Care Lab [address] Lab (1st floor, no room number) [place] [address], [place] [phone] * (ABNORMAL) Glucose by meter (12/15/2022 5:09 PM CDT) GLUCOSE BY METER POCT 275(H) 70 - 99 mg/dL 12/15/2022 5:16 PM CDT RH LABORATORY POC Blood, Capillary BLOOD SPECIMEN / Unknown 12/15/2022 5:09 PM CDT 12/15/2022 5:16 PM CDT Arsenio Flores DO LAB - BEAKER POCT LABORATORY [facility] Lab [address] Lab (1st floor, no room number) [place] [address], [place] [phone] * (ABNORMAL) Glucose by meter (12/15/2022 12:22 PM CDT) GLUCOSE BY METER POCT 231(H) 70 - 99 mg/dL 12/15/2022 12:29 PM CDT [facility] POC Blood, Capillary BLOOD SPECIMEN / Unknown 12/15/2022 12:22 PM CDT 12/15/2022 12:29 PM CDT Arsenio Flores DO LAB - [facility] LAB[facility]AT[facility] [address] Lab (1st floor, no room number) [place] [address], [place] [phone] * (ABNORMAL) Glucose by meter (12/15/2022 7:18 AM CDT) GLUCOSE BY METER POCT 176(H) 70 - 99 mg/dL 12/15/2022 7:24 AM CDT [facility] POC Blood, Capillary BLOOD SPECIMEN / Unknown 12/15/2022 7:18 AM CDT 12/15/2022 7:24 AM CDT Arsenio Carlin Mark [facility] - [facility] [address] [facility] Lab (1st floor, no room number) [place] [address], [facility] [phone] * (ABNORMAL) Renal panel (12/15/2022 5:45 AM [...] - 29 mmol/L 12/15/2022 6:35 AM CDT [facility] Anion Gap 7 7 - 15 mmol/L 12/15/2022 6:35 AM CDT [facility] Glucose 183(H) 70 - 99 mg/dL [...] - 5.2 g/dL 12/15/2022 6:35 AM CDT [facility] Phosphorus 1.6(L) 2.5 - 4.5 mg/dL 12/15/2022 6:35 AM CDT [facility] Blood BLOOD SPECIMEN / Unknown Venipuncture / Unknown 12/15/2022 5:45 AM CDT 12/15/2022 6:03 AM CDT David Treviño MD LAB - BLOOD ORDERABL ES [facility] [address] Lab (1st floor, no room number) [place] [address], [facility] [phone] * (ABNORMAL) CBC with platelets (12/15/2022 5:45 [...] Yanez DO LAB - BLOOD ORDER JOSEFA [facility] [address] Lab (1st floor, no room number) [place] [address], [facility] [phone] * (ABNORMAL) Glucose by meter (12/15/2022 2:32 AM CDT) GLUCOSE BY METER POCT 159(H) 70 - 99 mg/dL 12/15/2022 2:39 AM CDT RH LABORATORY POC Blood, Capillary BLOOD SPECIMEN / Unknown 12/15/2022 2:32 AM CDT 12/15/2022 2:39 AM CDT Arsenio Tesfaye Mark DO LU - ChumbyAKER POCT [facility] Lab [address] Lab (1st floor, no room number) [place] [address], [facility] [phone] * (ABNORMAL) Glucose by meter (12/14/2022 10:04 PM CDT) GLUCOSE BY METER POCT 211(H) 70 - 99 mg/dL 12/14/2022 10:11 PM CDT RH LABORATORY POC Blood, Capillary BLOOD SPECIMEN / Unknown 12/14/2022 10:04 PM CDT 12/14/2022 10:11 PM CDT Arsenio Flores DO TABITHA - RONNY POCT LABORATORY [facility] Acute Care Lab [address] Lab (1st floor, no room number) [place] [address], [place] [phone] * (ABNORMAL) Glucose by meter (12/14/2022 6:42 PM CDT) GLUCOSE BY METER POCT 147(H) 70 - 99 mg/dL 12/14/2022 6:49 PM CDT RH LABORATORY POC Blood, Capillary BLOOD SPECIMEN / Unknown 12/14/2022 6:42 PM CDT 12/14/2022 6:49 PM CDT Arsenio Flores DO LAB - BEAKER POCT LABORATORY [facility] Lab [address] Lab (1st floor, no room number) [place] [address], [facility] [phone] * (ABNORMAL) Glucose by meter (12/14/2022 1:10 PM CDT) GLUCOSE BY METER POCT 165(H) 70 - 99 mg/dL 12/14/2022 1:17 PM CDT LABORATORY POC Blood, Capillary BLOOD SPECIMEN / Unknown 12/14/2022 1:10 PM CDT 12/14/2022 1:17 PM CDT Arsenio Flores DO LAB - BEAKER POCT Performing Organization Address City/[facility]/ZIP Co de Phone Number LABORATORY [facility] Acute [facility] Lab [address] Lab (1st floor, no room number) [place] [address], [facility] [phone] * UPPER GI ENDOSCOPY (12/14/2022 11:52 AM CDT) Upper GI Endoscopy [facility] Patient Name: Maricruz Vanegas ? Procedure Date: [...] verified by the physician, ?the nurse, the polysomnography tech and the lawn and garden technician in ?the procedure room. Mental Status [...] # [id number], Endora # ?[id number], SN # [id number] was introduced through the mouth, ?and advanced [...] Note Initiated On: 12/14/2022 11:52 AM MRN: ?[id number] Procedure Date: ? 12/14/2022 11:52:38 AM Total Procedure Duration: 0 hours 8 minutes 56 seconds Estimated Blood Loss: ? Scope In: 12:35:58 PM Scope Out: 12:44:54 PM RADIOLOGY RESULTS 12/14/2022 11:5 2 AM CDT Adama Ramirez MD PROCEDURES RADIOLOGY RESULTS * (ABNORMAL) Glucose by meter (12/14/2022 11:03 AM CDT) GLUCOSE BY METER POCT 115(H) 70 - 99 mg/dL 12/14/2022 11:10 AM CDT RH LABORATORY POC Comment:Dr/RN Notified Blood, Capillary BLOOD SPECIMEN / Unknown 12/14/2022 11:03 AM CDT 12/14/2022 11:10 AM CDT Arsenio GRIFFITH POCT Performing Organization Address City/[facility]/ZIP Co de Phone Number RH LABORATORY POC [facility] Acute Care Lab [address] [facility] Lab (1st floor, no room number) [place] [address], [facility] [phone] * (ABNORMAL) Glucose by meter (12/14/2022 7:50 AM CDT) GLUCOSE BY METER POCT 122(H) 70 - 99 mg/dL 12/14/2022 7:56 AM CDT RH LABORATORY POC Blood, Capillary BLOOD SPECIMEN / Unknown 12/14/2022 7:50 AM CDT 12/14/2022 7:56 AM CDT Arsenio DE LA ROSA - RONNY POCT RH LABORATORY POC [facility] [address] [facility] [facility] (1st floor, no room number) [place] [address], [facility] [phone] * Genotype Partial RhD (12/14/2022 5:45 AM CDT) See Scanned Result GENOTYPE PARTIAL RHD-Scanned 01/01/2023 8:12 AM [facility] Blood BLOOD SPECIMEN / Unknown Venipuncture / Unknown 12/14/2022 5:45 AM CDT 12/14/2022 6:02 AM CDT Arsenio Flores DO LAB - BLOOD ORDERAB LES [facility] [address] [place] [address], [facility] [phone] * (ABNORMAL) Renal panel (12/14/2022 5:45 AM [...] - 15 mmol/L 12/14/2022 6:30 AM CDT RH LABORATORY Glucose 106(H) 70 - 99 mg/dL 12/14/2022 6:30 AM CDT RH LABORATORY Urea Nitrogen 30.3(H) 8.0 - 23.0 mg/dL 12/14/2022 6:30 AM CDT RH LABORATORY Creatinine 3.40(H) 0.51 - 0.95 mg/dL [...] LAB - BLOOD ORDERABL ES RH LABORATORY [facility] Acute Care Lab [address] Lab (1st floor, no room number) [place] [address], [facility] [phone] * (ABNORMAL) CBC with platelets (12/14/2022 5:45 [...] - 36.5 g/dL 12/14/2022 6:09 AM CDT LABORATORY RDW 20.3(H) 10.0 - 15.0 % 12/14/2022 6:09 AM CDT LABORATORY Platelet Count 280 150 - 450 10e3/uL 12/14/2022 6:09 AM CDT LABORATORY Blood BLOOD SPECIMEN / Unknown Venipuncture / Unknown 12/14/2022 5:45 AM CDT 12/14/2022 6:02 AM CDT Arsenio Flores DO LAB - BLOOD ORDERAB LES LABORATORY [facility] Acute Care Lab [address] Lab (1st floor, no room number) [place] [address], [place] [phone] * (ABNORMAL) Glucose by meter (12/14/2022 2:02 AM CDT) GLUCOSE BY METER POCT 132(H) 70 - 99 mg/dL 12/14/2022 2:09 AM CDT LABORATORY POC Blood, Capillary BLOOD SPECIMEN / Unknown 12/14/2022 2:02 AM CDT 12/14/2022 2:09 AM CDT Arsenio Flores DO LAB - BEAKER POCT LABORATORY [facility] [address] Lab (1st floor, no room number) [place] [address], [place] [phone] * Transfuse red blood cells (unit) (12/13/2022 [...] Arsenio DE LA ROSA - BEKYRIE POCT Performing Organization Address [facility]/ZIP Co de Phone Number [facility] Lab [address] Lab (1st floor, no room number) [place] [address], [facility] [phone] * (ABNORMAL) Hemoglobin (12/13/2022 6:14 PM CDT) Hemoglobin 5.9(LL) 11.7 - 15.7 g/dL 12/13/2022 6:32 PM CDT RH LABORATORY Blood STRUCTURE OF RIGHT UPPER LIMB / Unknown Venipuncture / Unknown 12/13/2022 6:14 PM CDT 12/13/2022 6:19 PM CDT Arsenio Flores DO LAB - BLOOD ORDERAB LES Performing Organization Address [facility]/ZIP Co de Phone Number [facility] [address] Lab (1st floor, no room number) [place] [address], [place] [phone] * Transfuse red blood cells (unit) (12/13/2022 6:06 PM CDT) Jason Tapia MD BLOOD TRANSFUSI ON ORDERABLES * (ABNORMAL) Glucose by meter (12/13/2022 5:44 PM CDT) GLUCOSE BY METER POCT 171(H) 70 - 99 mg/dL 12/13/2022 5:50 PM CDT RH LABORATORY POC Blood, Capillary BLOOD SPECIMEN / Unknown 12/13/2022 5:44 PM CDT 12/13/2022 5:50 PM CDT Arsenio GRIFFITH POCT RH LABORATORY POC [facility] Acute Care Lab [address] Lab (1st floor, no room number) [place] [address], [facility] [phone] * (ABNORMAL) Basic metabolic panel (12/13/2022 12:33 [...] MD LAB - BLOOD ORDERABL ES LABORATORY [facility] Acute Care Lab [address] Lab (1st floor, no room number) [place] [address], [facility] [phone] * (ABNORMAL) Glucose by meter (12/13/2022 10:59 AM CDT) GLUCOSE BY METER POCT 184(H) 70 - 99 mg/dL 12/13/2022 11:11 AM CDT LABORATORY POC Blood, Capillary BLOOD SPECIMEN / Unknown 12/13/2022 10:59 AM CDT 12/13/2022 11:11 AM CDT Arsenio Flores DO LAB - BEAKER POCT LABORATORY POC [facility] Acute Care Lab [address] Lab (1st floor, no room number) [place] [address], [facility] [phone] * (ABNORMAL) Hemoglobin (12/13/2022 10:56 AM CDT) Hemoglobin 3.9(LL) 11.7 - 15.7 g/dL 12/13/2022 12:00 PM CDT LABORATORY Blood STRUCTURE OF RIGHT HAND / Unknown Venipuncture / Unknown 12/13/2022 10:56 AM CDT 12/13/2022 11:01 AM CDT Connie Smith MD LAB - BLOOD ORDERABL ES LABORATORY [facility] Acute Care Lab [address] Lab (1st floor, no room number) [place] [address], [facility] [phone] * (ABNORMAL) Haptoglobin (12/13/2022 6:24 AM CDT) Haptoglobin 283(H) 32 - 197 mg/dL 12/13/2022 12:07 PM CDT SPECIALTY CORE/PROT/ENDO Blood STRUCTURE OF RIGHT UPPER LIMB / Unknown Venipuncture / Unknown 12/13/2022 6:24 AM CDT 12/13/2022 6:29 AM CDT Arsenio Flores DO LAB - BLOOD ORDERAB LES [facility] SPECIALTY CORE/PROT/ENDO [facility] Specialty Core/Prot/Endo [address] [facility], [address] [address], [facility] [phone] * (ABNORMAL) Glucose by meter (12/13/2022 6:07 AM CDT) GLUCOSE BY METER POCT 118(H) 70 - 99 mg/dL 12/13/2022 6:14 AM CDT RH LABORATORY POC Blood, Capillary BLOOD SPECIMEN / Unknown 12/13/2022 6:07 AM CDT 12/13/2022 6:14 AM CDT Arsenio Flores DO LAB - BEAKER POCT LABORATORY [facility] Lab [address] [employer] Lab (1st floor, no room number) [place] [address], [facility] [phone] * Extra Blood Bank Purple Top Tube (12/13/2022 5:25 AM CDT) Hold Specimen JIC 12/13/2022 6:31 AM CDT LABORATORY Blood BLOOD SPECIMEN / Unknown Venipuncture / Unknown 12/13/2022 5:25 AM CDT 12/13/2022 5:25 AM CDT Arsenio Flores DO LAB - BLOOD ORDERAB LES [facility] Lab [address] Lab (1st floor, no room number) [place] [address], [place] [phone] * Morphology Tracking (12/13/2022 5:18 AM CDT) Blood STRUCTURE OF RIGHT HAND / Unknown Venipuncture / Unknown 12/13/2022 5:18 AM CDT 12/13/2022 5:26 AM CDT Jason Tapia MD LAB - BLOOD ORD ERABLES [facility] Care Lab [address] Lab (1st floor, no room number) [place] [address], [facility] [phone] * (ABNORMAL) Reticulocyte count (12/13/2022 5:18 AM CDT) % Reticulocyte 7.1(H) 0.5 - 2.0 % 12/13/2022 6:12 AM CDT RH LABORATORY Absolute Reticulocyte 0.077 0.025 - 0.095 10e6/uL 12/13/2022 6:12 AM CDT RH LABORATORY Blood STRUCTURE OF RIGHT HAND / Unknown Venipuncture / Unknown 12/13/2022 5:18 AM CDT 12/13/2022 5:26 AM CDT Jason Tapia MD LAB - BLOOD ORD ERABLES [facility] Lab [address] Lab (1st floor, no room number) [place] [address], [facility] [phone] * (ABNORMAL) CBC with platelets and differential [...] Tapia MD LAB - BLOOD ORD ERABLES [facility] Acute Care Lab [address] Lab (1st floor, no room number) [place] [address], [facility] [phone] * Bld morphology pathology review (12/13/2022 5:18 [...] correlation is recommended. 12/13/2022 10:[address] [facility] PATHOLOGY LAB Peripheral Smear A microscopic examination is performed. 12/13/2022 10:[address] [facility] PATHOLOGY LAB Peripheral Hematologic Data Latest [...] 50: Marked thrombocytopenia 12/13/2022 10:[address] [facility] PATHOLOGY LAB Performing Labs The technical component of this testing was completed at [facility], [facility] and [facility] 12/13/2022 10:[address] [facility] PATHOLOGY LAB Blood BLOOD SPECIMEN / [...] interpretation. Jason Tapia MD [facility] PATHOLOGY LAB [facility] Pathology Lab [address], [address] [place] [address] * Extra Blood Bank Purple Top Tube (12/13/2022 5:18 AM CDT) Hold Specimen JIC 12/13/2022 6:31 AM CDT LABORATORY Blood STRUCTURE OF RIGHT HAND / Unknown Venipuncture / Unknown 12/13/2022 5:18 AM CDT 12/13/2022 5:30 AM CDT Arsenio Flores DO LAB - BLOOD ORDERAB LES LABORATORY [facility] Acute Care Lab [address] [facility] Lab (1st floor, no room number) [place] [address], [facility] [phone] * Folate (12/13/2022 5:18 AM CDT) Folic Acid 10.3 4.6 - 34.8 ng/mL 12/13/2022 9:11 AM CDT [facility] LABORATORY Blood STRUCTURE OF RIGHT HAND / Unknown Venipuncture / Unknown 12/13/2022 5:18 AM CDT 12/13/2022 5:26 AM CDT Arsenio Flores DO LAB - BLOOD ORDERAB LES [facility] LABORATORY [facility] [place] [facility] Lab [address] [facility], [address] [place] [address], [place] [phone] * Lactic acid whole blood (12/13/2022 5:18 AM CDT) Lactic Acid 0.9 0.7 - 2.0 mmol/L 12/13/2022 5:47 AM CDT LABORATORY Blood STRUCTURE OF RIGHT HAND / Unknown Venipuncture / Unknown 12/13/2022 5:18 AM CDT 12/13/2022 5:24 AM CDT Jason Tapia MD LAB - BLOOD ORD ERABLES LABORATORY [facility] Acute Care Lab [address] Lab (1st floor, no room number) [place] [address], [place] [phone] * (ABNORMAL) Glucose by meter (12/13/2022 2:16 AM CDT) GLUCOSE BY METER POCT 169(H) 70 - 99 mg/dL 12/13/2022 2:22 AM CDT LABORATORY POC Blood, Capillary BLOOD SPECIMEN / Unknown 12/13/2022 2:16 AM CDT 12/13/2022 2:22 AM CDT Arsenio GRIFFITH POCT LABORATORY POC [facility] Acute Care Lab [address] Lab (1st floor, no room number) [place] [address], [place] [phone] * Other Laboratory; [facility]; Reference Lab Workup (Laboratory Miscellaneous Order) (12/13/2022 1:49 AM CDT) See Scanned Result LABORATORY MISCELLANEOUS ORDER-Scanned 12/24/2022 8:35 AM GENERAL ACTIVITIES THERAPIST MISCELLANEOUS TESTING Blood BLOOD SPECIMEN / Unknown [...] CDT EXAM: XR CHEST 2 VIEWS LOCATION: [facility] DATE: 12/13/2022 INDICATION: cough COMPARISON: 11/29/2022 Procedure Note Rajan Card MD - 12/13/2022 EXAM: XR CHEST 2 VIEWS LOCATION: [facility] DATE: 12/13/2022 INDICATION: cough COMPARISON: 11/29/2022 IMPRESSION: Heart size within normal limits. Calcified aortic arch. Mildstreaky left basilar atelectasis or infiltrate. The right lung is clear.No pneumothorax. Jason Tapia MD IMG DIAGNOSTIC IMAGING ORDERABLES * CTA Abdomen Pelvis with Contrast (12/13/2022 1:10 AM CDT) Anatomical Region Laterality Modality Abdomen/Pelvis, SUBRAD IR NC OCEDURE, UMP CT CTA, RAD CT Computed [...] EXAM: CTA ABDOMEN PELVIS WITH CONTRAST LOCATION: [facility] DATE: 12/13/2022 INDICATION: acute on chronic anemia, melena, please do GI bleed protocol. ??ESRD, on hemodialysis, ??Recent removal of peritoneal dialysis catheter COMPARISON: 11/28/2022 TECHNIQUE: CT angiogram abdomen pelvis during arterial phase of injection of IV contrast. 2D and 3D MIP reconstructions were performed by the clinical lab technologist. Dose reduction techniques were used. [...] EXAM: CTA ABDOMEN PELVIS WITH CONTRAST LOCATION: [facility] DATE: 12/13/2022 INDICATION: acute on chronic anemia, [...] Culture Hand, Right (12/12/2022 11:49 PM CDT) Pathologist [facility] Culture No Growth 12/18/2022 1:16 AM GENERAL ACTIVITIES THERAPIST [facility] LABORATORY Blood STRUCTURE OF RIGHT HAND / Unknown Venipuncture / Unknown 12/12/2022 11:49 PM CDT 12/13/2022 12:08 AM CDT Jason Tapia MD LAB - MICRO GEN ERAL ORDERABLES [facility] LABORATORY [facility] Inf. Diseases Diag. Lab [address] [facility], [address] [place], [place] [address], [facility] [phone] * EKG 12 lead (12/12/2022 11:09 PM CDT) [facility] Systolic Blood Pressure mmHg RADIOLOGY RESULTS Diastolic Blood Pressure mmHg RADIOLOGY RESULTS Ventricular Rate 72 BPM RAD IOLOGY RESULTS Atrial Rate 72 BPM RADIOLOG Y RESULTS NC Interval 198 ms RADIOLOG Y RESULTS QRS Duration 80 ms RADIOLO GY RESULTS QT 322 ms RADIOLOGY RESULTS QTc 352 ms RADIOLOGY RESULTS P [place] 75 degrees RADIOLOGY RESULTS R AXIS 44 degrees RADIOLOGY RESULTS T [place] -85 degrees RADIOLOGY RESULTS Interpretation ECG Sinus [...] blood cells (unit) (12/12/2022 11:07 PM CDT) [facility] Blood Component Type Red Blood Cells RH BLOOD BANK Product Code [id number] RH BLOO D BANK Unit Status Released RH BLOOD BANK Unit Number [id number] RH B LOOD BANK CROSSMATCH COMPATIBLE RH BLOOD BANK CODING SYSTEM [id number] RH BLO OD BANK UNIT ABO/RH O- RH BLOOD BANK UNIT TYPE ISBT 9500 RH BL OOD BANK 12/12/2022 11:0 7 PM CDT Jason Tapia MD BLOOD BANK PROD UCT ORDERABLES Performing Organization Address [facility] de Phone Number BLOOD BANK [address] * Prepare red blood cells (unit) (12/12/2022 11:07 PM CDT) Blood Component Type Red Blood Cells RH BLOOD BANK Product Code [id number] RH BLOO D BANK Unit Status Transfused RH BLOO D BANK Unit Number [id number] RH B LOOD BANK CROSSMATCH COMPATIBLE RH BLOOD BANK CODING SYSTEM [id number] RH BLO OD BANK ISSUE DATE AND TIME [id number] RH BLOOD BANK UNIT ABO/RH O- RH BLOOD BANK UNIT TYPE ISBT 9500 RH BL OOD BANK 12/12/2022 11:0 7 PM CDT Jason Tpaia MD BLOOD BANK PROD UCT ORDERABLES Performing Organization Address [facility] de Phone Number BLOOD BANK [address] [place] [address] [place] [address] * Prepare red blood cells (unit) (12/12/2022 11:07 PM CDT) Blood Component Type Red Blood Cells RH BLOOD BANK Product Code [id number] RH BLOO D BANK Unit Status Transfused RH BLOO D BANK Unit Number [id number] RH B LOOD BANK CROSSMATCH COMPATIBLE RH BLOOD BANK CODING SYSTEM [id number] RH BLO OD BANK ISSUE DATE AND TIME [id number] RH BLOOD BANK UNIT ABO/RH O- RH BLOOD BANK UNIT TYPE ISBT 9500 RH BL OOD BANK 12/12/2022 11:0 7 PM CDT Jason Tapia MD BLOOD BANK PROD UCT ORDERABLES Performing Organization Address [facility]/ZIP Co de Phone Number BLOOD BANK [address] [place] [address], [facility] * (ABNORMAL) iStat Gases (lactate) venous, [...] Tapia MD LAB - BEAKER PO CT Performing Organization Address [facility] Co de Phone Number LABORATORY POC [facility] Lab [address] Lab (1st floor, no room number) [place] [address], [facility] [phone] * Stool: occult blood (12/12/2022 11:03 PM CDT) Occult Blood Negative Negative JENNIFER 12/12/2022 11:32 PM CDT RH LABORATORY Stool RECTAL CONTENTS / Unknown Non-blood Collection / Unknown 12/12/2022 11:03 PM CDT 12/12/2022 11:11 PM CDT Jason Tapia MD LAB - STOOLS OR DERABLES [facility] Lab [address] Lab (1st floor, no room number) [place] [address], [facility] [phone] * (ABNORMAL) Hemoglobin (12/12/2022 11:02 PM CDT) Hemoglobin 4.2(LL) 11.7 - 15.7 g/dL 12/12/2022 11:28 PM CDT RH LABORATORY Blood BLOOD SPECIMEN / Unknown Venipuncture / Unknown 12/12/2022 11:02 PM CDT 12/12/2022 11:09 PM CDT Jason Tapia MD LAB - BLOOD ORD ERABLES [facility] Care Lab [address] Lab (1st floor, no room number) [place] [address], [facility] [phone] * Ammonia (12/12/2022 11:02 PM CDT) Ammonia 19 11 - 51 umol/L 12/12/2022 11:35 PM CDT RH LABORATORY Blood BLOOD SPECIMEN / Unknown Venipuncture / Unknown 12/12/2022 11:02 PM CDT 12/12/2022 11:09 PM CDT Jason Tapia MD LAB - BLOOD ORD ERABLES [facility] Lab [address] Lab (1st floor, no room number) [place] [address], [facility] [phone] * (ABNORMAL) Adult Type and Screen (12/12/2022 10:42 PM CDT) ABO/RH(D) O POS 12/12/2022 10:27 PM CDT RH BLOOD BANK Antibody Screen Positive(A) Negative 12/13/19 10:27 PM CDT RH BLOOD BANK Comment:Delay in availabilit y of Red Cells called to [facility] @ 2330 11.1.23 SPECIMEN EXPIRATION DATE [id number] 12/12/2022 10:27 PM CDT BLOOD BANK Blood BLOOD SPECIMEN / Unknown Venipuncture / Unknown 12/12/2022 10:42 PM CDT 12/12/2022 10:45 PM CDT Jason Tapia MD LAB - BLOOD BAN K TEST ORDER BLOOD BANK [address] [place] [address] * (ABNORMAL) Lactate Dehydrogenase (12/12/2022 9:49 PM CDT) Lactate Dehydrogenase 290(H) 0 - 250 U/L 12/13/2022 3:49 AM CDT [facility] LABORATORY Blood BLOOD SPECIMEN / Unknown Venipuncture / Unknown 12/12/2022 9:49 PM CDT 12/12/2022 9:57 PM CDT Arsenio Flores DO LAB - BLOOD ORDERAB LES Performing Organization Address City/[facility]/ZIP Co de Phone Number U LABORATORY [facility] [place] [facility] Lab [address] [facility], [address] [address], [facility] [phone] * (ABNORMAL) TSH (12/12/2022 9:49 PM CDT) TSH 5.18(H) 0.30 - 4.20 uIU/mL 12/13/2022 5:43 AM CDT [facility] LABORATORY Blood BLOOD SPECIMEN / Unknown Venipuncture / Unknown 12/12/2022 9:49 PM CDT 12/12/2022 9:57 PM CDT Arsenio Flores DO LAB - BLOOD ORDERAB LES [facility] LABORATORY [facility] [place] [facility] [address] [facility], [address] [place] [address], [facility] [phone] * Vitamin B12 (12/12/2022 9:49 PM CDT) Vitamin B12 1,105 232 - 1,245 pg/mL 12/13/2022 3:21 AM CDT [facility] LABORATORY Blood BLOOD SPECIMEN / Unknown Venipuncture / Unknown 12/12/2022 9:49 PM CDT 12/12/2022 9:57 PM CDT Arsenio lFores DO LAB - BLOOD ORDERAB LES UU LABORATORY [facility] Core Lab [address] [facility], [address] [place] [address], [facility] [phone] * (ABNORMAL) Iron and iron binding capacity [...] MD LAB - BLOOD ORD ERABLES LABORATORY [facility] Lab [address] Lab (1st floor, no room number) [place] [address], [place] [phone] * (ABNORMAL) Ferritin (12/12/2022 9:49 PM CDT) Ferritin 6,492(H) 11 - 328 ng/mL 12/13/2022 3:48 AM CDT [facility] LABORATORY Blood BLOOD SPECIMEN / Unknown Venipuncture / Unknown 12/12/2022 9:49 PM CDT 12/12/2022 9:57 PM CDT Jason Tapia MD LAB - BLOOD ORD ERABLES [facility] LABORATORY [facility] [place] [facility] [address] [facility], [address] [place] [address], [place] [phone] * T4 free (12/12/2022 9:49 PM CDT) Free T4 1.14 0.90 - 1.70 ng/dL 12/12/2022 11:55 PM CDT RH LABORATORY Blood BLOOD SPECIMEN / Unknown Venipuncture / Unknown 12/12/2022 9:49 PM CDT 12/12/2022 9:57 PM CDT Jason Tapia MD LAB - BLOOD ORD ERABLES RH LABORATORY [facility] Lab [address] Lab (1st floor, no room number) [place] [address], [place] [phone] * Blood Culture Peripheral Blood (12/12/2022 9:49 PM CDT) Pathologist [facility] Culture No Growth 12/18/2022 1:16 AM GENERAL ACTIVITIES THERAPIST [facility]AT[facility] Blood BLOOD SPECIMEN / Unknown Venipuncture / Unknown 12/12/2022 9:49 PM CDT 12/12/2022 9:57 PM CDT Jason Tapia MD LAB - MICRO GEN ERAL ORDERABLES [facility] LABORATORY [facility] Inf. Diseases Diag. Lab [address] [facility], [address] [place] [address], [place] [phone] * (ABNORMAL) Blood gas venous and oxyhgb [...] Tapia MD LAB - BLOOD ORD ERABLES [facility] Lab [address] Lab (1st floor, no room number) [place] [address], [facility] [phone] * (ABNORMAL) Reticulocyte count (12/12/2022 9:49 PM CDT) [facility] % Reticulocyte 13.8(H) 0.5 - 2.0 % 12/13/2022 12:07 AM CDT [facility] Absolute Reticulocyte 0.075 0.025 - 0.095 10e6/uL 12/13/2022 12:07 AM CDT [facility] Blood BLOOD SPECIMEN / Unknown Venipuncture / Unknown 12/12/2022 9:49 PM CDT 12/12/2022 9:57 PM CDT Jason Tapia MD LAB - BLOOD ORD ERABLES [facility] [address] Lab (1st floor, no room number) [place] [address], [facility] [phone] * (ABNORMAL) TSH with free T4 reflex (12/12/2022 9:49 PM CDT) TSH 5.44(H) 0.30 - 4.20 uIU/mL 12/12/2022 11:33 PM CDT LABORATORY Blood BLOOD SPECIMEN / Unknown Venipuncture / Unknown 12/12/2022 9:49 PM CDT 12/12/2022 9:57 PM CDT Jason Tapia MD LAB - BLOOD ORD ERABLES LABORATORY [facility] [address] Lab (1st floor, no room number) [place] [address], [facility] [phone] * (ABNORMAL) Troponin T, High Sensitivity (12/12/2022 [...] MD LAB - BLOOD ORD ERABLES LABORATORY [facility] [address] Lab (1st floor, no room number) [place] [address], [facility] [phone] * Magnesium (12/12/2022 9:49 PM CDT) [facility] Magnesium 2.0 1.7 - 2.3 mg/dL 12/12/2022 11:26 PM CDT [facility] LABORATORY Blood BLOOD SPECIMEN / Unknown Venipuncture / Unknown 12/12/2022 9:49 PM CDT 12/12/2022 9:57 PM CDT Jason Tapia MD LAB - BLOOD ORD ERABLES LABORATORY [facility] [address] [facility] Lab (1st floor, no room number) [place] [address], [facility] [phone] * (ABNORMAL) CBC with platelets and differential (12/12/2022 9:49 PM CDT) [facility] WBC Count 18.4(H) 4.0 - 11.0 10e3/uL [...] MD LAB - BLOOD ORD ERABLES LABORATORY [facility] [address] Lab (1st floor, no room number) [place] [address], [facility] [phone] * (ABNORMAL) Comprehensive metabolic panel (12/12/2022 9:49 PM CDT) [facility] Sodium 137 135 - 145 mmol/L 12/12/2022 [...] Tapia MD LAB - BLOOD ORD ERABLES [facility] [address] Lab (1st floor, no room number) [place] [id number], [facility] [phone] * Extra Heparinized Syringe (12/12/2022 9:49 PM CDT) Hold Specimen [facility] 12/12/2022 11:02 PM CDT [facility] LABORATORY Blood, venous BLOOD SPECIMEN / Unknown Venipuncture / Unknown 12/12/2022 9:49 PM CDT 12/12/2022 9:57 PM CDT Jason Tapia MD LAB - BLOOD ORD ERABLES [facility] [address] Lab (1st floor, no room number) [place] [address], [facility] [phone] * Extra Purple Top Tube (12/12/2022 9:49 PM CDT) Hold Specimen [facility] 12/12/2022 11:02 PM CDT [facility] LABORATORY Blood BLOOD SPECIMEN / Unknown Venipuncture / Unknown 12/12/2022 9:49 PM CDT 12/12/2022 9:57 PM CDT Jason Tapia MD LAB - BLOOD ORD ERABLES [facility] [address] Lab (1st floor, no room number) [place] [address], [place] [phone] * Extra Green Top (Chrisney Heparin) Tube (12/12/2022 9:49 PM CDT) Hold Specimen [facility] 12/12/2022 11:02 PM CDT [facility] LABORATORY Blood BLOOD SPECIMEN / Unknown Venipuncture / Unknown 12/12/2022 9:49 PM CDT 12/12/2022 9:57 PM CDT Jason Tapia MD LAB - BLOOD ORD ERABLES Performing Organization Address City/[facility]/ZIP Co de Phone Number [facility] [address] Lab (1st floor, no room number) [place] [address], [place] [phone] * Extra Red Top Tube (12/12/2022 9:49 PM CDT) Hold Specimen [facility] 12/12/2022 11:02 PM CDT [facility] LABORATORY Blood BLOOD SPECIMEN / Unknown Venipuncture / Unknown 12/12/2022 9:49 PM CDT 12/12/2022 9:57 PM CDT Jason Tapia MD LAB - BLOOD ORD ERABLES [facility] [address] Lab (1st floor, no room number) [place] [address], [place] [phone] * Extra Blue Top Tube (12/12/2022 9:49 PM CDT) Hold Specimen [facility] 12/12/2022 11:02 PM CDT [facility] LABORATORY Blood BLOOD SPECIMEN / Unknown Venipuncture / Unknown 12/12/2022 9:49 PM CDT 12/12/2022 9:57 PM CDT Jason Tapia MD LAB - BLOOD ORD FINESSE [facility] [address] Lab (1st floor, no room number) [place] [address], [place] [phone] * Extra Blood Culture Bottle (12/12/2022 9:49 PM CDT) Hold Specimen [facility] 12/12/2022 11:02 PM CDT LABORATORY Blood BLOOD SPECIMEN / Unknown Venipuncture / Unknown 12/12/2022 9:49 PM CDT 12/12/2022 9:57 PM CDT Jason Tapia MD LAB - BLOOD ORD FINESSE [facility] [address] Lab (1st floor, no room number) [place] [address], [place] [phone] * (ABNORMAL) Glucose by meter (12/12/2022 9:39 PM CDT) GLUCOSE BY METER POCT 245(H) 70 - 99 mg/dL 12/12/2022 9:46 PM CDT LABORATORY POC Blood, Capillary BLOOD SPECIMEN / Unknown 12/12/2022 9:39 PM CDT 12/12/2022 9:46 PM CDT Provider Unknown LAB - BEAKER POCT [facility] [address] Lab (1st floor, no room number) [place] [address], [place] [phone] documented in this encounter Visit Diagnoses Diagnosis [...] stage renal disease Acute on chronic anemia Acute on chronic anemia documented in this encounter Admitting Diagnoses Diagnosis [...] exceed 4 grams/day. $Given 12/17/2022 11:28 PM GENERAL ACTIVITIES THERAPIST 650 mg $Given 12/14/2022 4:33 AM CDT [...] within 2 weeks. $Given 12/18/2022 7:43 AM GENERAL ACTIVITIES THERAPIST 2 puffs $Given 12/17/2022 8:25 AM GENERAL ACTIVITIES THERAPIST 2 puffs $Given 12/17/2022 12:31 AM GENERAL ACTIVITIES THERAPIST 2 puffs amLODIPine (NORVASC) tablet 10 mg 10 mg (0.246 mg/kg), Oral, 2 TIMES DAILY, First dose on 12/15/22 at 1000 $Given 12/18/2022 8:34 AM GENERAL ACTIVITIES THERAPIST 10 mg $Given 12/17/2022 8:26 PM GENERAL ACTIVITIES THERAPIST 10 mg $Given 12/17/2022 8:42 AM GENERAL ACTIVITIES THERAPIST 10 mg bisacodyl (DULCOLAX) suppository 10 mg [...] for loose stools. $Given 12/17/2022 1:39 AM GENERAL ACTIVITIES THERAPIST 10 mg carbamide peroxide (DEBROX) 6.5 % otic solution 3 drop 3 drop, Both Ears, 2 TIMES DAILY, First dose on 12/15/22 at 2000 $Given 12/18/2022 8:35 AM GENERAL ACTIVITIES THERAPIST 3 drops $Given 12/17/2022 8:29 PM GENERAL ACTIVITIES THERAPIST 3 drops $Given 12/17/2022 8:43 AM GENERAL ACTIVITIES THERAPIST 3 drops carboxymethylcellulose PF (REFRESH PLUS) 0.5 % ophthalmic solution 1 drop 1 drop, Left Eye, 4 TIMES DAILY, First dose on 12/15/22 at 1300 $Given 12/18/2022 1:34 PM GENERAL ACTIVITIES THERAPIST 1 drop $Given 12/18/2022 8:34 AM GENERAL ACTIVITIES THERAPIST 1 drop $Given 12/17/2022 8:28 PM GENERAL ACTIVITIES THERAPIST 1 drop cetirizine (zyrTEC) tablet 10 mg 10 mg (0.246 mg/kg), Oral, DAILY, First dose on 12/15/22 at 1300 $Given 12/18/2022 8:34 AM GENERAL ACTIVITIES THERAPIST 10 mg $Given 12/17/2022 8:42 AM GENERAL ACTIVITIES THERAPIST 10 mg $Given 12/16/2022 7:54 AM GENERAL ACTIVITIES THERAPIST 10 mg cloNIDine (CATAPRES) tablet 0.2 mg 0.2 mg, Oral, EVERY MORNING, First dose on 12/15/22 at 1000 $Given 12/18/2022 8:33 AM GENERAL ACTIVITIES THERAPIST 0.2 mg $Given 12/17/2022 8:42 AM GENERAL ACTIVITIES THERAPIST 0.2 mg $Given 12/16/2022 7:54 AM GENERAL ACTIVITIES THERAPIST 0.2 mg cloNIDine (CATAPRES) tablet 0.3 mg 0.3 mg (0.68599 mg/kg), Oral, EVERY EVENING, First dose on 12/15/22 at 2000 $Given 12/17/2022 8:25 PM GENERAL ACTIVITIES THERAPIST 0.3 mg $Given 12/16/2022 8:29 PM GENERAL ACTIVITIES THERAPIST 0.3 mg $Given 12/15/2022 8:27 PM CDT [...] glucose level is above 100 mg/dL. Vesicant. erythromycin (ROMYCIN) ophthalmic ointment Left Eye, 4 TIMES DAILY, First dose on 12/15/22 at 1300, Apply within 1 hour of . May be delayed until after first . $Given 12/18/2022 1 :35 PM GENERAL ACTIVITIES THERAPIST 1 g $Given 12/18/2022 8:36 AM GENERAL ACTIVITIES THERAPIST 1 g $Given 12/17/2022 8:28 PM GENERAL ACTIVITIES THERAPIST 1 g furosemide (LASIX) tablet 80 mg 80 mg, Oral, USER SPECIFIED (2 times per day on Saturday), First dose (after last modification) on Sat12/18/22 at 0800 $Given 12/18/2022 8:40 AM GENERAL ACTIVITIES THERAPIST 80 mg gabapentin (NEURONTIN) capsule 100 mg 100 mg, Oral, AT BEDTIME, First dose (after last modification) on Sat12/18/22 at 2200 glucagon injection 1 mg 1 mg (0.0224 mg/kg), Subcutaneous, EVERY 15 MIN PRN, low blood sugar, May repeat x 1 only, Starting on Sat12/13/22 at 0154, May give SQ or IM. ONLY use glucagon IF patient has NO IV access AND is UNABLE to swallow AND blood glucose is LESS than or EQUAL to 50 mg/dL. glucose gel 15-30 g 15-30 g (0.336-0.673 g/kg), Oral, EVERY 15 MIN PRN, low blood sugar, Starting on Sat12/13/22 at 0154, Give first dose for initial [...] Starting on 12/15/22 at 1441 $Given 12/17/2022 12:46 AM GENERAL ACTIVITIES THERAPIST 2 mg $Given 12/15/2022 11:02 PM CDT 2 mg insulin aspart (NovoLOG) injection (RAPID ACTING) 1-6 Units (0.0238-0.1425 Units/kg), Subcutaneous, 3 TIMES DAILY WITH MEALS, First dose (after last modification) on Gemma 12/13/22 at 1800, Correction Scale - MEDIUM [...] start of meal. $Given 12/18/2022 1:51 PM GENERAL ACTIVITIES THERAPIST 3 Units $Given 12/17/2022 1:12 PM GENERAL ACTIVITIES THERAPIST 3 Units $Given 12/16/2022 12:21 PM GENERAL ACTIVITIES THERAPIST 4 Units insulin glargine (LANTUS PEN) injection 6 Units 6 Units (0.148 Units/kg), Subcutaneous, EVERY MORNING BEFORE BREAKFAST, First dose on Sat12/16/22 at 1130 $Given 12/18/2022 8:36 AM GENERAL ACTIVITIES THERAPIST 6 Units $Given 12/17/2022 8:43 AM GENERAL ACTIVITIES THERAPIST 6 Units $Given 12/16/2022 12:55 PM GENERAL ACTIVITIES THERAPIST 6 Units ipratropium - albuterol 0.5 mg/2.5 mg/3 mL (DUONEB) neb solution 3 mL 3 mL, Nebulization, EVERY 4 HOURS PRN, wheezing, shortness of breath, Starting on Sat12/14/22 at 0634 $Given 12/18/2022 1:04 AM GENERAL ACTIVITIES THERAPIST 3 mLs $Given 12/17/2022 1:09 AM GENERAL ACTIVITIES THERAPIST 3 mLs $Given 12/16/2022 10:15 PM GENERAL ACTIVITIES THERAPIST 3 mLs labetalol (NORMODYNE) tablet 300 mg 300 mg (7.39 mg/kg), Oral, 3 TIMES DAILY, First dose on 12/15/22 at 1000 $Given 12/18/2022 1:35 PM GENERAL ACTIVITIES THERAPIST 300 mg $Given 12/18/2022 8:34 AM GENERAL ACTIVITIES THERAPIST 300 mg $Given 12/17/2022 8:25 PM GENERAL ACTIVITIES THERAPIST 300 mg melatonin tablet 3 mg 3 mg (0.0673 mg/kg), Oral, AT BEDTIME PRN, sleep, Starting on Gemma 12/13/22 at 0155, Do not give unless at least 6 hours of uninterrupted sleep is expected. $Given 12/17/2022 9:18 PM GENERAL ACTIVITIES THERAPIST 3 mg $Given 12/17/2022 12:46 AM GENERAL ACTIVITIES THERAPIST 3 mg $Given 12/15/2022 11:02 PM CDT 3 mg naloxone (NARCAN) injection 0.2 mg 0.2 mg (0.92900 mg/kg), Intravenous, EVERY 2 MIN PRN, opioid [...] naloxone (NARCAN) injection 0.2 mg 0.2 mg (0.26844 mg/kg), Intramuscular, EVERY 2 MIN PRN, opioid [...] doses. ondansetron (ZOFRAN ODT) ODT tab 4 mg [...] 12/15/22 at 1441 $Given 12/18/2022 8:33 AM GENERAL ACTIVITIES THERAPIST 5 mg $Given 12/18/2022 1:15 AM GENERAL ACTIVITIES THERAPIST 5 mg $Given 12/17/2022 10:34 AM GENERAL ACTIVITIES THERAPIST 5 mg pantoprazole (PROTONIX) EC tablet 40 mg 40 mg (0.95 mg/kg), Oral, 2 TIMES DAILY BEFORE MEALS, First dose on Sat12/14/22 at 1630, DO NOT CRUSH. $Given 12/18/2022 8:33 AM GENERAL ACTIVITIES THERAPIST 40 mg $Given 12/17/2022 6:01 PM GENERAL ACTIVITIES THERAPIST 40 mg $Given 12/17/2022 8:41 AM GENERAL ACTIVITIES THERAPIST 40 mg polyethylene glycol (MIRALAX) Packet 17 [...] bowel clean out. $Given 12/17/2022 10:39 AM GENERAL ACTIVITIES THERAPIST 17 g $Given 12/16/2022 1:26 PM GENERAL ACTIVITIES THERAPIST 17 g $Given 12/15/2022 7:57 AM CDT [...] for loose stools. $Given 12/17/2022 10:39 AM GENERAL ACTIVITIES THERAPIST 2 tablets $Given 12/15/2022 7:57 AM CDT 2 tablets sodium chloride 0.9% BOLUS 1-250 mL Intravenous, 1-250 mL, EVERY 1 HOUR PRN, To prime infusion tubing AND flush blood through tubing POST blood component administration., Starting on 12/12/22 at 2306, IF blood component ordered, nurse to administer rate and volume of fluid pre-blood component administration to PRIME tubing AND to FLUSH blood through tubing post blood component administration UNTIL tubing is clear of visible blood. Use MINIMUM volume necessary for pre and post blood component administration. IF duplicate order nurse to discontinue the duplicate order. sorbitol 70 % solution 30 mL 30 mL, Oral, EVERY 3 DAYS, First dose on 12/15/22 at 1300 $Given 12/15/2022 2:11 PM CDT 30 mLs umeclidinium (INCRUSE ELLIPTA) 62.5 MCG/ACT inhaler 1 puff 1 puff, Inhalation, DAILY, First dose on 12/16/22 at 1200, Check the dose counter on the inhaler to ensure there are doses remaining before administering. $Given 12/18/2022 7:43 AM GENERAL ACTIVITIES THERAPIST 1 puff $Given 12/17/2022 8:24 AM GENERAL ACTIVITIES THERAPIST [address] salcedo - receiving intermittent dosing [...] may contain times in both CDT and GENERAL ACTIVITIES THERAPIST. Scheduled Medication Order 12/16/2022 12/17/2022 12/18/2022 - [...] Angela, SUSANA)2025 ($Given - Provider: Myrna Reese, RN) 0834 ($Given - Provider: Marco Santacruz, SUSANA) calcium acetate (PHOSLO) capsule 667 mg (CANCELED) 667 mg (16.4 mg/kg), Oral, 3 TIMES DAILY WITH MEALS, First dose on 12/15/22 at 1300, Best if given with meals. 0755 ($Given - Provider: Nahomi Sainz RN)1218 ($Given - Provider: Nahomi Sainz RN) carbamide peroxide (DEBROX) 6.5 % otic solution 3 drop 3 drop, Both Ears, 2 TIMES DAILY, First dose on 12/15/22 at 2000 0800 ($Given - Provider: Nahomi Sainz RN)2048 ($Given - Provider: Karime Navarrete RN) 0843 ($Given - Provider: Kaylan Angela, SUSANA)2028 ($Given - Provider: Myrna Reese, RN) 0835 ($Given - Provider: Marco Santacruz RN) carboxymethylcellulose PF (REFRESH PLUS) 0.5 % ophthalmic solution 1 drop 1 drop, Left Eye, 4 TIMES DAILY, First dose on 12/15/22 at 1300 0755 ($Given - Provider: Nahomi Sainz RN)1218 ($Given - Provider: Nahomi Sainz RN)1557 ($Given - Provider: Karime Navarrete RN)2030 ($Given - Provider: Karime Navarrete RN) 0842 ($Given - Provider: Kaylan Angela RN)1312 ($Given - Provider: Kaylan Angela RN)1800 ($Given - Provider: Kaylan Angela RN)202 ($Given - Provider: Myrna Reese, RN) 0834 ($Given - Provider: Marco Santacruz, SUSANA)1334 ($Given - Provider: Marco Santacruz RN)1600 (Canceled Entry - Provider: Orders Generic Provider - Comment: Automatically canceled at discontinue of medication order) cetirizine (zyrTEC) tablet 10 mg 10 mg (0.246 mg/kg), Oral, DAILY, First dose on 12/15/22 at 1300 0754 ($Given - Provider: Nahomi Sainz RN) 0842 ($Given - Provider: Kaylan Angela RN) 0834 ($Given - Provider: Marco Santacruz RN) cloNIDine (CATAPRES) tablet 0.2 mg 0.2 mg, Oral, EVERY MORNING, First dose on 12/15/22 at 1000 0754 ($Given - Provider: Nahomi Sainz RN) 0842 ($Given - Provider: Kaylan Angela RN) 0833 ($Given - Provider: Marco Santacruz RN) cloNIDine (CATAPRES) tablet 0.3 mg 0.3 mg (0.14530 mg/kg), Oral, EVERY EVENING, First dose on 12/15/22 at 2000 202 ($Given - Provider: Karime Navarrete RN) 2024 ($Given - Provider: Myrna Reese, SUSANA) epoetin jose-epbx (RETACRIT) injection 10,000 Units (COMPLETED) 10,000 Units (246 Units/kg), Intravenous, ONCE IN DIALYSIS/CRRT, On 12/17/22 at 0900, For 1 dose, Give during [...] Reese, SUSANA) 0836 ($Given - Provider: Marco Santacruz, SUSANA)1335 ($Given - Provider: Marco Santacruz, SUSANA)1600 (Canceled Entry - Provider: Orders Generic Provider - Comment: Automatically canceled at discontinue of medication order) furosemide (LASIX) tablet 40 mg (CANCELED) 40 mg (0.985 mg/kg), Oral, DAILY, First dose on Sat12/15/22 at 1000 0755 ($Given - Provider: Nahomi Sainz RN) 0842 ($Given - Provider: Kaylan Angela RN) furosemide (LASIX) tablet 80 mg 80 mg, [...] Navarrete RN) 2118 ($Given - Provider: Myrna Reese, SUSANA) HYDROmorphone (PF) (DILAUDID) injection 0.5 mg (COMPLETED) 0.5 mg, Intravenous, ONCE, On Sat12/18/22 at 0300, For 1 dose 0327 ($Given - Provider: Juani Sharma RN) insulin aspart (NovoLOG) injection (RAPID ACTING) 1-6 Units (0.0238-0.1425 Units/kg), Subcutaneous, 3 TIMES DAILY WITH MEALS, First dose (after last modification) on Gemma 12/13/22 at 1800, Correction Scale - MEDIUM [...] 70) 0836 (Not Given - Provider: Marco Santacruz RN - Reason: Order parameters not met)1351 ($Given - Provider: Marco Santacruz RN) insulin glargine (LANTUS PEN) injection 6 Units 6 Units (0.148 Units/kg), Subcutaneous, EVERY MORNING BEFORE BREAKFAST, First dose on 12/16/22 at 1130 1255 ($Given - Provider: Nahomi Sainz RN) 0843 ($Given - Provider: Kalyan Angela RN) 0836 ($Given - Provider: Marco [...] Angela RN - Reason: Other - Comment: dialysis)202 ($Given - Provider: Myrna Reese RN) 0834 ($Given - Provider: Marco Santacruz, SUSANA)1335 ($Given - Provider: Marco Santacruz RN) No heparin via hemodialysis machine (COMPLETED) ONCE, 1 dose, On Sat12/17/22 at 0900, [...] Sainz RN)1557 ($Given - Provider: Karime Navarrete RN) 0841 ($Given - Provider: Kaylan Angela RN)1801 ($Given - Provider: Kaylan Angela RN) 0833 ($Given - Provider: Marco Sanatcruz RN)1630 (Canceled Entry - Provider: Orders Generic Provider - Comment: Automatically canceled at discontinue of medication order) sodium chloride 0.9% BOLUS 250 mL (COMPLETED) Intravenous, 250 mL, ONCE IN DIALYSIS/CRRT, On Sat12/17/22 at 0900, For 1 dose, For patient prime during dialysis, Dialysis 1611 ($New Bag - Provider: Aranza Self RN - Comment: on hand for blood rinseback) sodium chloride 0.9% BOLUS 300 mL (COMPLETED) Hemodialysis Machine, 300 mL, ONCE, On Sat12/17/22 at 0900, For 1 dose, For Dialyzer Prime. (In Dialyzer), Dialysis 1310 ($New Bag - Provider: Aranza Self RN - Comment: pretx hemoline prime) sorbitol 70 % solution 30 mL 30 mL, Oral, EVERY 3 DAYS, First dose on 12/15/23 at 1300 1342 (Not Given - Provider: Marco Santacruz, SUSANA - Reason: Patient/family refused) sorbitol 70 % solution 30 mL (COMPLETED) 30 mL, Oral, ONCE, On 12/16/22 at 1230, For 1 dose 1326 ($Given - Provider: Nahomi Sainz, SUSANA) umeclidinium (INCRUSE ELLIPTA) 62.5 MCG/ACT inhaler 1 puff 1 puff, Inhalation, DAILY, First dose on 12/16/22 at 1200, Check the dose counter on the inhaler to ensure there are doses remaining before administering. 1146 (Canceled Entry - Provider: Kaylan Moctezuma, RT) 0824 ($Given - Provider: Christina Santiago, SUSANA) 0743 ($Given - Provider: Rajan Akers, RT) vancomycin (VANCOCIN) 500 mg vial to attach to NS 100 mL bag (COMPLETED) Routine, 500 mg (12.3 mg/kg), Intravenous, ONCE, On 12/17/22 at 1600, For 1 dose, Give after [...] 2327 (See Alternative - Provider: Juani Sharma, RN) acetaminophen (TYLENOL) tablet 650 mg(Linked Group 1) [...] refused) 2327 ($Given - Provider: Juani Sharma, RN) albuterol (PROVENTIL HFA/VENTOLIN HFA) inhaler 2 puff, [...] 1832 (See Alternative - Provider: Karime Navarrete RN)2 (Not Given - Provider: Karime Navarrete RN - Reason: Other - Comment: not given returned.it was linked order, no time to give. pt still c/o pain 09/20.) 0046 ($Given - Provider: Florence Emery RN)1034 (See Alternative - Provider: Kaylan Angela, RN)2139 (See Alternative - Provider: Myrna Reese, SUSANA) 0115 (See Alternative - Provider: Juani Sharma, SUSANA)0833 (See Alternative - Provider: Marco Santacruz RN) ipratropium - albuterol 0.5 mg/2.5 mg/3 mL (DUONEB) neb solution 3 mL 3 mL, Nebulization, EVERY 4 HOURS PRN, wheezing, shortness of breath, Starting on Sat12/14/22 at 0634 1003 ($Given - Provider: Kaylan Moctezuma, RT)1600 ($Given - Provider: Karime Navarrete RN)2215 ($Given - Provider: Karime Navarrete RN) 0109 ($Given - Provider: Luma Jimenes, RT) 0104 ($Given - Provider: Sandy Magana, RT) lidocaine 1 % 0.5 mL (COMPLETED) 0.5 mL, Intradermal, ONCE PRN, WITHIN 24 HOURS For local anesthesia at fistula/graft site, Starting on Sat12/17/22 at 0850, For 1 dose, For local anesthesia at VENOUS fistula/graft site. Give once, if needed, at the dialysis treatment., Dialysis 1423 ($Given - Provider: Aranza Self RN - [...] injection 0.2 mg(Linked Group 4) 0.2 mg (0.01306 mg/kg), Intravenous, EVERY 2 MIN PRN, opioid [...] injection 0.2 mg(Linked Group 4) 0.2 mg (0.05970 mg/kg), Intramuscular, EVERY 2 MIN PRN, opioid [...] 2 MIN PRN, opioid reversal, Starting on [facility] 12/13/22 at 0357, Administer intravenous route when [...] 2 MIN PRN, opioid reversal, Starting on [facility] 12/13/22 at 0357, Administer intramuscular if an [...] Florence Emery RN)1034 ($Given - Provider: Kaylan Angela RN)2139 (Return to Cabinet - Provider: Myrna Reese RN - Comment: Pt changed her mind about the medication. Returned to cabinet witnessed by RN.) 0115 ($Given - Provider: Juani Sharma RN)0833 ($Given - Provider: Marco Santacruz RN) polyethylene glycol (MIRALAX) Packet 17 g 17 g (0.381 g/kg), Oral, DAILY PRN, constipation, Starting on Sat12/13/22 at 0155, IF more than 1 constipation [...] Sainz RN) 1039 ($Given - Provider: Kaylan Angela RN) senna-docusate (SENOKOT-S/PERICOLACE) 8.6-50 MG per tablet 1 [...] stools. 1039 (See Alternative - Provider: Kaylan Angela RN) senna-docusate (SENOKOT-S/PERICOLACE) 8.6-50 MG per tablet 2 tablet(Linked Group 6) 2 tablet, Oral, 2 TIMES DAILY PRN, constipation, Starting on Gemma 12/13/22 at 0155, IF more than 1 constipation PRN medication is ordered, administer step-lfanagan as indicated, moving to the next step ONLY if prior step ineffective. Step 1: senna-docusate (SENOKOT-S; PERICOLACE) OR bisacodyl (DULCOLAX) EC tablet Step 2: magnesium hydroxide (MILK OF MAGNESIA) OR polyethylene glycol (MIRALAX/GLYCOLAX) Step 3: bisacodyl (DULCOLAX) suppository Step 4: sodium phosphate (FLEET ENEMA) Hold for loose stools. 1039 ($Given - Provider: Kaylan Angela RN) sodium chloride 0.9% BOLUS 1-250 mL Intravenous, [...] injection 0.2 mgJump to med 0.2 mg (0.20474 mg/kg), Intravenous, EVERY 2 MIN PRN, opioid [...] injection 0.2 mgJump to med 0.2 mg (0.91981 mg/kg), Intramuscular, EVERY 2 MIN PRN, opioid [...] stools. documented in this encounter Care Teams Audio Director Relationship Specialty Start Date End Date Man Schneider [address] [place] [id number] PCP - General Family Medicine 11/25/22 02/18/23 documented as of this encounter
--- OUTSIDE RECORDS SUMMARY | 2023-02-22 16:14 | XMS_ITS | Encounter Summary ---
Author Name Unknown Organization [facility] Address [address] [place] [address]. [place] [address] Care Team Providers Care Weight Caller Name Role Phone Tyrell Schneider Primary Care Provider [phone] Encounter Details Date Type Department Care Team (Latest Contact Info) Description 12/12/2022 Travel Social History Tobacco Use Types Packs/Day Years Used Date Smoking Tobacco: Never Assessed Adolescent Education Answer Date Record ed Getting School Help Needed Not on file 11/24 Sex and Gender Information Value Date Recorded Sex Assigned at Not on file Gender Identity Female 11/24/2022 4:30 PM CDT Sexual Orientation Not on file documented as of this encounter Plan of Treatment Not on file documented as of this encounter Visit Diagnoses Not on filedocumented in this encounter Care Teams Weight Caller Relationship Specialty Start Date End Date Tyrell Schneider [address] [place] [address] PCP - General Family Medicine 11/25/22 02/18/23 documented as of this encounter
--- OUTSIDE RECORDS SUMMARY | 2023-02-22 16:14 | XMS_ITS | Encounter Summary ---
Author Name Unknown Organization [place] Address [facility] [place] [address] Care Team Providers Care District Gauger Name Role Phone Tyrell Schneider Primary Care Provider [phone] Reason for Visit * Auth/Cert (Routine) Specialty Diagnoses / Procedures Referred By Constantine crump Referred To Contact Orthopedics Diagnoses Anemia ESRD (end stage renal disease) on dialysis (H) Acute on chronic anemia Anemia Acute on chronic anemia ESRD (end stage renal disease) on dialysis (H) [facility] [address] [place] [address] Referral ID Status Reason Start Date Expiration Date Visits Re quested Visits Authorized [id number] 1 1 Encounter Details Date Type Department Care Team (Late st Contact Info) Description 12/14/2022 12:03 PM CDT Anesthesia Event [facility] PeriOp Services [address] [place] [address] Karthik Gonzalez MD [facility] ANESTHESIA [address] [place] [address] Connie Smith MD [facility] [place] [address] [facility] [address] [place], [place] [address] Anesthesia Record Procedure Summary Procedure Name Responsible Anesthesiologist Anesthesia Start Time Anesthesia Stop Time ESOPHAGOGASTRODUODENOSCOPY (Mouth) Karthik Gonzalez MD 12/14/22 1203 12/14/22 1259 Events Date Time Event Comment 12/14/2022 1202 AN REASSESS I attest that I have identified and re-evaluated the patient immediately before the induction of anesthesia and I am satisfied that the anesthetic plan is suitable for the patient's condition and procedure. The first vital signs recorded are pre- induction. Francisco Francisco APRN RECORD PRESS TENDER 1203 An Start 1203 MD Present 1206 An Start Data 1231 MD Present 1251 an stop data 1259 An Stop Electronically signed by Francisco Francisco APRN CRNA on December 14, 2022 12:58 PM 1259 MD Present Meds Name Total lidocaine 2% 25 mg propofol 10 mg/mL 30 mg ketamine 10 mg/mL 35 mg glycopyrrolate 0.2 mg/mL 0.1 mg LR 100 mL * Agents Name NO HELIOX O2 N2O Air Exp Sevoflurane Exp Isoflurane Exp Desflurane Exp N2O Ins Sevoflurane Ins Isoflurane Ins Desflurane O2 Auxiliary * Blood No blood administrations on file. Lines, Drains, and Airways Type Details Placement Removal Hemodialysis Vascular Access Arteriovenous fistula; Superior; Arm 12/03/22 1531 by Incision/Surgical Site with Packing 12/04/22; 0825; Left, Lower; Abdomen; Gauze packing strips (NuGauze) (02/14); 1 12/04/22 0825 by Minnie Cantor RN Incision/Surgical Site 12/04/22; 0833; L eft; Abdomen; 02/14 Plain packing, steri-strips, gauze, tape 12/04/22 0833 by Minnie Cantor RN Incision/Surgical Site 12/14/22; 1246; M outh; scope procedure 12/14/22 1246 by Victoriano Garay RN Peripheral IV 12/13/22; 1533; 22 G , 1 3/4 inch; B Mccabe; Anterior, Right; Lower forearm; Chlorhexidine, Skin Barrier; None; 1; 1; Tolerated well 12/13/22 1533 by Booker Kwon RN 12/14/22 1254 by Kaylan Alcaraz RN Peripheral IV 12/14/22; 1231; 22 G ; Dorsal, Right; Hand; Alcohol; None 12/14/22 1231 by Francisco Francisco APRN CRNA 12/14/22 1540 by Monika Jones RN documented in this encounter Social History Tobacco Use Types Packs/Day Years Used Date Smoking Tobacco: Never Assessed Adolescent Education Answer Date Record ed Getting School Help Needed Not on file 11/24 Sex and Gender Information Value Date Recorded Sex Assigned at Not on file Gender Identity Female 11/24/2022 4:30 PM CDT Sexual Orientation Not on file documented as of this encounter OR Notes * Anesthesia Postprocedure Evaluation - Karthik Gonzalez MD - 12/14/2022 1:47 PM CDT Patient: Maricruz Vanegas Procedure: Procedure(s): ESOPHAGOGASTRODUODENOSCOPY Anesthesia Type: MAC Note: Postop Pain Control: Uneventful Sign Out: Well controlled pain PONV: No Neuro/Psych: Uneventful Sign Out: Acceptable/Baseline neuro status Airway/Respiratory: Uneventful Sign Out: Acceptable/Baseline resp. status CV/Hemodynamics: Uneventful Sign Out: Acceptable CV status Other NRE: NONE DID A NON-ROUTINE EVENT OCCUR? No Last vitals: Vitals Value Taken Time BP 160/96 12/14/22 1330 Temp 98.4 ??F (36.9 ??C) 12/14/22 1254 Pulse 75 12/14/22 1330 Resp 12 12/14/22 1330 SpO2 94 % 12/14/22 1330 Vitals shown include unfiled device data. Electronically Signed By: Karthik Gonzalez MD December 14, 2022 1:47 PM * Anesthesia Preprocedure Evaluation - Karthik Gonzalez MD - 12/14/2022 11:15 AM CDT Anesthesia Pre-Procedure Evaluation Patient: Maricruz Vanegas : 1945 Procedure : Procedure(s): ESOPHAGOGASTRODUODENOSCOPY Past Medical History: Diagnosis Date Diabetes mellitus, type 2 (H) ESRD (end stage renal disease) on dialysis (H) Past Surgical History: Procedure Laterality Date PERITONEAL CATHETER INSERTION REMOVE CATHETER PERITONEAL N/A 12/04/2022 Procedure: REMOVAL PERITONEAL DIALYSIS CATHETER; Surgeon: Rajan Hernandez MD; Location: [facility] OR Allergies Allergen Reactions Cats Shortness Of Breath [...] Lisinopril-Hydrochlorothiazide Rash Niacin Rash and Itching itch [place] Rash Pioglitazone Rash Itchy rash Social History Tobacco Use Smoking status: Not on file Smokeless tobacco: Not on file Substance Use Topics Alcohol use: Not on file Wt Readings from Last 1 Encounters: 12/13/22 42.1 kg (92 lb 13 oz) Anesthesia Evaluation Pt has had prior anesthetic. Type: General. No history of anesthetic complications ROS/MED HX ENT/Pulmonary: - neg pulmonary ROS Neurologic: - neg neurologic ROS Cardiovascular: (+) hypertension- - - - - METS/Exercise Tolerance: Hematologic: (+) anemia, Musculoskeletal: - neg musculoskeletal ROS GI/Hepatic: Comment: Black stools - neg GI/hepatic ROS Renal/Genitourinary: Endo: - neg endo ROS (+) type II DM, Psychiatric/Substance Use: - neg psychiatric ROS Infectious Disease: - neg infectious disease ROS Malignancy: - neg malignancy ROS Other: - neg other ROS Physical Exam Airway TM distance: > 3 FB Neck ROM: full Mouth opening: > 3 cm Respiratory Devices and Support Dental no notable dental history Cardiovascular cardiovascular exam normal Pulmonary pulmonary exam normal OUTSIDE LABS: CBC: Lab Results Component Value Date WBC 19.4 (H) 12/14/2022 WBC 17.3 (H) 12/13/2022 HGB 8.2 (L) 12/14/2022 HGB 5.9 (LL) 12/13/2022 HCT 23.2 (L) 12/14/2022 HCT 10.6 (L) 12/13/2022 PLT 280 12/14/2022 PLT 237 12/13/2022 BMP: Lab Results Component Value Date NA 137 12/14/2022 NA 137 12/13/2022 POTASSIUM 3.3 (L) 12/14/2022 POTASSIUM 3.5 12/13/2022 CHLORIDE 98 12/14/2022 CHLORIDE 96 (L) 12/13/2022 CO2 28 12/14/2022 CO2 27 12/13/2022 BUN 30.3 (H) 12/14/2022 BUN 28.7 (H) 12/13/2022 CR 3.40 (H) 12/14/2022 CR 2.82 (H) 12/13/2022 GLC 115 (H) 12/14/2022 GLC 122 (H) 12/14/2022 COAGS: No results found for: PTT, INR, FIBR POC: No results found for: BGM, HCG, HCGS HEPATIC: Lab Results Component Value Date ALBUMIN 2.9 (L) 12/14/2022 PROTTOTAL 5.4 (L) 12/12/2022 ALT 13 12/12/2022 AST 16 12/12/2022 ALKPHOS 64 12/12/2022 BILITOTAL <0.2 12/12/2022 ANA LILIA 19 12/12/2022 OTHER: Lab Results Component Value Date LACT 0.9 12/13/2022 PASTOR 8.3 (L) 12/14/2022 PHOS 2.2 (L) 12/14/2022 MAG 2.0 12/12/2022 TSH 5.44 (H) 12/12/2022 TSH 5.18 (H) 12/12/2022 T4 1.14 12/12/2022 Anesthesia Plan ASA Status: 4 NPO Status: NPO Appropriate Anesthesia Type: MAC. Consents Anesthesia Plan(s) and associated risks, benefits, and realistic alternatives discussed. Questions answered and patient/healthcare representative(s) expressed understanding. - Discussed: - Discussed with: Patient Postoperative Care Pain management: IV analgesics, Oral pain medications, Multi-modal analgesia. PONV prophylaxis: Ondansetron (or other 5HT-3), Dexamethasone or Solumedrol Comments: Karthik Gonzalez MD documented in this encounter Miscellaneous Notes * Anesthesia Care Transfer Note - Francisco Francisco APRN CRNA - 12/14/2022 12:58 PM CDT Patient: Maricruz Vanegas Procedure: Procedure(s): ESOPHAGOGASTRODUODENOSCOPY Diagnosis: Acute on chronic anemia [D64.9] Diagnosis Additional Information: No value filed. Anesthesia Type: MAC Note: Oropharynx: spontaneously breathing Level of Consciousness: awake Oxygen Supplementation: face mask Independent Airway: airway patency satisfactory and stable Dentition: dentition unchanged Vital Signs Stable: post-procedure vital signs reviewed and stable Report to RN Given: handoff report given Patient transferred to: PACU Comments: To PACU, report to RN, oxygen per face mask. Vitals: Vitals Value Taken Time BP 126/58 12/14/22 1253 Temp Pulse 84 12/14/22 1253 Resp SpO2 Vitals shown include unfiled device data. Electronically Signed By: Francisco Francisco APRN CRNA December 14, 2022 12:58 PM documented in this encounter Plan of Treatment Not on file documented as of this encounter Visit Diagnoses Not on filedocumented in this encounter Administered Medications Inactive Administered Medications - up to 3 most recent administrations Medication Order MAR Action Action Date Dose Rate Site glycopyrrolate (ROBINUL) injection Intravenous, PRN, Administer over 1-2 Minutes, Starting on Sat12/14/22 at 1210, Anesthesia Intra-op $Given 12/14/2022 12:10 PM CDT 0.1 mg ketamine (KETALAR) injection Intravenous, PRN, Administer over 2-5 Minutes, Starting on Sat12/14/22 at 1218, Anesthesia Intra-op $Given 12/14/2022 12:40 PM CDT 15 mg $Given 12/14/2022 12:18 PM CDT 20 mg lactated ringers infusion Intravenous, CONTINUOUS PRN, Anesthesia Intra-op, Starting on Sat12/14/22 at 1153, Until Sat12/14/22 at 1259 $New Bag 12/14/2022 11:53 AM CDT lidocaine 2% injection (MDV) Intravenous, PRN, Starting on Sat12/14/22 at 1211, Anesthesia Intra-op $Given 12/14/2022 12:11 PM CDT 25 mg propofol (DIPRIVAN) injection 10 mg/mL vial Intravenous, PRN, Starting on Sat12/14/22 at 1214, Anesthesia Intra-op $Given 12/14/2022 12:14 PM CDT 30 mg documented in this encounter Care Teams District Gauger Relationship Specialty Start Date End Date Tyrell Schneider [address] [place] [address] PCP - General Family Medicine 11/25/22 02/18/23 documented as of this encounter
--- OUTSIDE RECORDS SUMMARY | 2023-02-22 16:15 | XMS_ITS | Encounter Summary ---
Author Name Unknown Organization [place] Address [address] [facility] [place] [address] Care Team Providers Care Classifications Officer Cc/Cm Name Role Phone Tyrell Schneider Primary Care Provider [phone] Reason for Visit * Auth/Cert (Routine) Specialty Diagnoses / Procedures Referred By Contac t Referred To Contact Orthopedics Diagnoses SOB (shortness of breath) Hyperkalemia, weakness SOB (shortness of breath) [facility] [address] [place] [address] Referral ID Status Reason Start Date Expiration Date Visits Re quested Visits Authorized [id number] 1 1 Encounter Details Date Type Department Care Team ([facility] Contact Info) Description 12/04/2022 7:44 AM CDT Anesthesia Event [facility] PeriOp Services [address] [place] [address] Arsenio Prasad MD [facility] ANESTHESIA [address] [facility] [address] [place] [address] Anesthesia Record Procedure Summary Procedure Name Responsible Anesthesiologist Anesthesia Start Time Anesthesia Stop Time REMOVAL PERITONEAL DIALYSIS CATHETER (Abdomen) Arsenio Prasad MD 12/04/22 0744 12/04/22 0850 Events Date Time Event Comment 12/04/2022 0744 An Start 0746 An Start Data 0753 AN REASSESS I attest that I have identified and re-evaluated the patient immediately before the induction of anesthesia and I am satisfied that the anesthetic plan is suitable for the patient's condition and procedure. The first vital signs recorded are pre- induction. Ani Montalvo APRN COMPUTER ASSISTANT 0755 An Induction 0755 MD Present 0757 An Intubation 0757 Anesthesia Ready for Procedu re 0758 MD Present 0801 MD Present 0810 MD Present 0813 AN INCISION 0839 Present 0842 AN Extubation All extubation criteria met prior to removal. 0844 an stop data 0850 An Stop Electronically signed by Ani Montalvo APRN COMPUTER ASSISTANT on December 04, 2022 8:50 AM Meds Name Total fentaNYL 50 mcg/mL 50 mcg lidocaine 2% 30 mg propofol 10 mg/mL 130 mg propofol drip mcg/kg/min 39.01 mg rocuronium 10 mg/mL 20 mg dexamethasone (DECADRON) 4 mg/mL 4 mg ondansetron 2 mg/mL 4 mg glycopyrrolate 0.2 mg/mL 0.1 mg sugammadex (BRIDION) 200mg/2mL 80 mg 0.9% NS 80 mL * Agents Name NO HELIOX O2 N2O Air Exp Sevoflurane Exp Isoflurane Exp Desflurane Exp N2O O2 Delivery Device Ins Sevoflurane Ins Isoflurane Ins Desflurane O2 [...] gauze, tape 12/04/22 0833 by Minnie Cantor RNlunchroom monitor Catheter 11/24/22; 2120; FAMILY PRESERVATION OFFICER, first noted on admission; [place]; Left lower abdomen; 12/04/22; 0823 11/24/222119 by Juan Ojeda RN 12/04/22 08 by Minnie Cantor RN Peripheral IV 11/30/22; 1731; 1 3/ 4 inch, 22 G; B Mccabe; Anterior, Right; Lower forearm; Chlorhexidine, Skin Barrier; None; 1; Tolerated well 11/30/22 1731 by Nidhi Beck RN 12/06/22 1436 by Lina Saeed RN ETT Placement Date: 12/04/22; Placement Time: 075; Mask Ventilation: 1; Induction Type: Intravenous; Ease of Intubation: Easy; Technique: Video laryngoscopy; ETT Type: Oral, Single; Tube Size: 7 mm; VL Blade Size: [place] scope 3; Grade View: 1; Adjucts: Stylet; Placement Person: COMPUTER ASSISTANT; Attempts: 1; Depth: 20 cm 12/04/22 0757 by Ani Montalvo APRN COMPUTER ASSISTANT 12/04/22 0842 by Ani Montalvo APRN CRNA documented in this encounter Social History Tobacco [...] OR Notes * Anesthesia Postprocedure Evaluation - Arsenio Prasad MD - 12/04/2022 1:49 PM CDT Patient: Maricruz Vanegas Procedure: Procedure(s): REMOVAL PERITONEAL DIALYSIS CATHETER Anesthesia Type: General Note: Disposition: Inpatient Postop Pain Control: Uneventful Sign Out: Well controlled pain PONV: No Neuro/Psych: Uneventful Sign Out: Acceptable/Baseline neuro status Airway/Respiratory: Uneventful Sign Out: Acceptable/Baseline resp. status CV/Hemodynamics: Uneventful Sign Out: Acceptable CV status; No obvious hypovolemia; No obvious fluid overload Other NRE: DID A NON-ROUTINE EVENT OCCUR? Last vitals: Vitals Value Taken Time BP 122/69 12/04/22 0935 Temp 97.7 ??F (36.5 ??C) 12/04/22 0900 Pulse 56 12/04/22 0940 Resp 28 12/04/22 0940 SpO2 99 % 12/04/22 0940 Vitals shown include unfiled device data. Electronically Signed By: Arsenio Prasad MD December 04, 2022 1:49 PM * Anesthesia Preprocedure Evaluation - Arsenio Prasad MD - 12/04/2022 7:06 AM CDT Anesthesia Pre-Procedure Evaluation Patient: Maricruz Vanegas : 1945 Procedure : Procedure(s): REMOVAL, CATHETER, DIALYSIS, PERITONEAL Past Medical History: Diagnosis Date Diabetes mellitus, type 2 (H) ESRD (end stage renal disease) on dialysis (H) Past Surgical History: Procedure Laterality Date PERITONEAL CATHETER INSERTION Allergies Allergen Reactions Cats Shortness Of Breath [...] Lisinopril-Hydrochlorothiazide Rash Niacin Rash and Itching itch [place] Rash Pioglitazone Rash Itchy rash Social History Tobacco Use Smoking status: Not on file Smokeless tobacco: Not on file Substance Use Topics Alcohol use: Not on file Wt Readings from Last 1 Encounters: 12/04/22 42.4 kg (93 lb 6.4 oz) Anesthesia Evaluation ROS/MED HX ENT/Pulmonary: (+) tobacco use, Current use, (-) sleep apnea Neurologic: - neg neurologic ROS Cardiovascular: Comment: Study Date: 11/29/2022 09:19 AM Age: 77 yrs Gender: Female Patient Location: [facility] Reason For Study: SOB Ordering Physician: MAGGIE ONTIVEROS Referring Physician: Tyrell Schneider Performed By: [...] pericardial effusion. Rhythm Sinus rhythm was noted. (+) hypertension- - - - - (-) CAD, CHF, arrhythmias and pulmonary hypertension METS/Exercise Tolerance: Hematologic: Musculoskeletal: (+) arthritis, GI/Hepatic: (-) GERD Renal/Genitourinary: Comment: Hyperkalemia (+) renal disease, type: ESRD, Pt requires dialysis, Endo: (+) type II DM, Psychiatric/Substance Use: (-) psychiatric history Infectious Disease: Malignancy: Other: (+) , H/O Chronic Pain, Physical Exam Airway Mallampati: II TM distance: > 3 FB Neck ROM: full Mouth opening: > 3 cm Respiratory Devices and Support Dental Cardiovascular cardiovascular exam normal Pulmonary (+) decreased breath sounds and wheezes Other findings: Lab Test 12/03/22 12/02/22 12/01/22 0656 0639 0735 WBC 9.1 11.9* 11.8* HGB 9.2* 9.9* 9.5* MCV 99 95 96 PLT 293 279 280 Lab Test 12/04/22 12/03/22 12/03/22 12/03/22 12/03/22 12/02/22 12/02/22 12/01/22 12/01/22 12/01/22 12/01/22 0153 2200 1736 0731 0656 0806 0639 2225 2156 1242 0735 NA -- -- -- -- 127* -- 126* -- -- -- 127* POTASSIUM -- -- -- -- 5.0 -- 5.0 -- 4.9 -- 5.7* CHLORIDE -- -- -- -- 90* -- 90* -- -- -- 93* CO2 -- -- -- -- 27 -- 27 -- -- -- 26 BUN -- -- -- -- 52.9* -- 53.4* -- -- -- 56.8* CR -- -- -- -- 4.90* -- 4.88* -- -- -- 4.78* ANIONGAP -- -- -- -- 10 -- 9 -- -- -- 8 PASTOR -- -- -- -- 8.6* -- 8.6* -- -- -- 8.5* GLC 145* 340* 111* < > 86 < > 88 < > -- < > 120* < > = values in this interval not displayed. OUTSIDE LABS: CBC: Lab Results Component Value Date WBC 9.1 12/03/2022 WBC 11.9 (H) 12/02/2022 HGB 9.2 (L) 12/03/2022 HGB 9.9 (L) 12/02/2022 HCT 25.5 (L) 12/03/2022 HCT 28.1 (L) 12/02/2022 PLT 293 12/03/2022 PLT 279 12/02/2022 BMP: Lab Results Component Value Date NA 127 (L) 12/03/2022 NA 126 (L) 12/02/2022 POTASSIUM 5.0 12/03/2022 POTASSIUM 5.0 12/02/2022 CHLORIDE 90 (L) 12/03/2022 CHLORIDE 90 (L) 12/02/2022 CO2 27 12/03/2022 CO2 27 12/02/2022 BUN 52.9 (H) 12/03/2022 BUN 53.4 (H) 12/02/2022 CR 4.90 (H) 12/03/2022 CR 4.88 (H) 12/02/2022 GLC 145 (H) 12/04/2022 GLC 340 (H) 12/03/2022 COAGS: No results found for: PTT, INR, FIBR POC: No results found for: BGM, HCG, HCGS HEPATIC: Lab Results Component Value Date ALBUMIN 2.5 (L) 11/30/2022 PROTTOTAL 5.9 (L) 11/30/2022 ALT 15 11/30/2022 AST 25 11/30/2022 ALKPHOS 84 11/30/2022 BILITOTAL <0.2 11/30/2022 OTHER: Lab Results Component Value Date PASTOR 8.6 (L) 12/03/2022 PHOS 5.4 (H) 11/24/2022 MAG 2.3 11/24/2022 Anesthesia Plan ASA Status: 3 Anesthesia Type: General. - Airway: ETT Induction: Propofol. Maintenance: Balanced. Consents Anesthesia Plan(s) and associated risks, benefits, and realistic alternatives discussed. Questions answered and patient/solar manufacturer's representative(s) expressed understanding. - Discussed: Risks, Benefits and Alternatives for the PROCEDURE were discussed - Discussed with: Patient - Extended Intubation/Ventilatory Support Discussed: No. - Patient is DNR/DNI Status: No Use of blood products discussed: No . Postoperative Care Pain management: IV analgesics, Oral pain medications. PONV prophylaxis: Ondansetron (or other 5HT-3), Background Propofol Infusion Comments: Arsenio Prasad MD documented in this encounter Miscellaneous Notes * Anesthesia Care Transfer Note - Ani Montalvo APRN CRNA - 12/04/2022 8:51 AM CDT Patient: Maricruz Vanegas Procedure: Procedure(s): REMOVAL PERITONEAL DIALYSIS CATHETER Diagnosis: Abdominal infection (H) [K65.9] Diagnosis Additional Information: No value filed. Anesthesia Type: General Note: Oropharynx: oropharynx clear of all foreign objects and spontaneously breathing Level of Consciousness: awake Oxygen Supplementation: face mask Independent Airway: airway patency satisfactory and stable Dentition: dentition unchanged Vital Signs Stable: post-procedure vital signs reviewed and stable Report to RN Given: handoff report given Patient transferred to: PACU Comments: Strong cough, suctioned down ETT multiple times prior to extubation Handoff Report: Identifed the Patient, Identified the Reponsible Provider, Reviewed the pertinent medical history, Discussed the surgical course, Reviewed Intra-OP anesthesia mangement and issues during anesthesia and Allowed opportunity for questions and acknowledgement of understanding Vitals: Vitals Value Taken Time BP Temp Pulse 61 12/04/22 0848 Resp 20 12/04/22 0848 SpO2 97 % 12/04/22 0849 Vitals shown include unfiled device data. Electronically Signed By: Ani Montalvo APRN CRNA December 04, 2022 8:51 AM documented in this encounter Plan of Treatment Not on file documented as of this encounter Visit Diagnoses Not on filedocumented in this encounter Administered Medications Inactive Administered Medications - up to 3 most recent administrations Medication Order MAR Action Action Date Dose Rate Site dexAMETHasone (DECADRON) injection Intravenous, PRN, Administer over 1 Minutes, Starting on Sat12/04/22 at 0814, Anesthesia Intra-op $Given 12/04/2022 8:14 AM CDT 4 mg fentaNYL (PF) (SUBLIMAZE) injection Intravenous, PRN, Administer over 3-5 Minutes, Starting on Sat12/04/22 at 0755, Anesthesia Intra-op $Given 12/04/2022 7:55 AM CDT 50 mcg glycopyrrolate (ROBINUL) injection Intravenous, PRN, Administer over 1-2 Minutes, Starting on Sat12/04/22 at 0814, Anesthesia Intra-op $Given 12/04/2022 8:14 AM CDT 0.1 mg lidocaine 2% injection (MDV) Intravenous, PRN, Starting on Sat12/04/22 at 0755, Anesthesia Intra-op $Given 12/04/2022 7:55 AM CDT 30 mg ondansetron (ZOFRAN) injection Intravenous, PRN, Administer over 2-5 Minutes, Starting on Sat12/04/22 at 0814, Anesthesia Intra-op $Given 12/04/2022 8:14 AM CDT 4 mg propofol (DIPRIVAN) infusion Intravenous, CONTINUOUS PRN, Starting on Sat12/04/22 at 0802, Anesthesia Intra-op $New Bag 12/04/2022 8:02 AM CDT 40 mcg/kg/min 10.176 mL/hr propofol (DIPRIVAN) injection 10 mg/mL vial Intravenous, PRN, Starting on Sat12/04/22 at 0755, Anesthesia Intra-op $Given 12/04/2022 8:25 AM CDT 30 mg $Given 12/04/2022 7:55 AM CDT 100 mg rocuronium injection Intravenous, PRN, Starting on Sat12/04/22 at 0755, Anesthesia Intra-op $Given 12/04/2022 7:55 AM CDT 20 mg sodium chloride 0.9 % infusion Intravenous, CONTINUOUS PRN, Anesthesia Intra-op, Starting on Sat12/04/22 at 0744, Until Sat12/04/22 at 0850 $New Bag 12/04/2022 7:44 AM CDT sugammadex (BRIDION) injection Intravenous, PRN, Starting on Sat12/04/22 at 0825, Anesthesia Intra-op $Given 12/04/2022 8:25 AM CDT 80 mg documented in this encounter Additional Health Concerns Infection Onset Date Last Indicated Resolved Time COVID-19 Comment:COVID + FAMILY PRESERVATION OFFICER transfer from [facility] ED 11/23/2022 11/26/2022 12/05/2022 9:18 A M CDT documented as of this encounter Care Teams Classifications Officer Cc/Cm Relationship Specialty Start Date End Date Tyrell Schneider [address] [place] [address] PCP - General Family Medicine 11/25/22 02/18/23 documented as of this encounter
--- OUTSIDE RECORDS SUMMARY | 2023-02-22 16:15 | XMS_ITS | Encounter Summary ---
Author Name Unknown Organization [place] Address [address] [place] [id number] Care Team Providers Care Latrine Cleaner Name Role Phone Man Adan Primary Care Provider [phone] Reason for Visit * Auth/Cert (Routine) Specialty Diagnoses / Procedures Referred By Contac t Referred To Contact Orthopedics Diagnoses SOB (shortness of breath) Hyperkalemia, weakness SOB (shortness of breath) Ortho Spine [address] [place] [address] Referral ID Status Reason Start Date Expiration Date Visits Re quested Visits Authorized [id number] 1 1 Encounter Details Date Type Department Care Team (Latest Contact Info) Description 11/28/2022 11:24 PM CDT - 12/06/2022 2:42 PM CDT Hospital Encounter [facility] [address] [place] [address] Stormy Ontiveros MD, MD [address] [place] [address] Abdominal infection (H) (Primary Dx) Discharge Disposition: Home or Self Care Social [...] Sign Reading Time Taken Comments Blood Pressure 147/54 12/06/2022 2:23 PM CDT Pulse 89 12/06/2022 2:23 PM CDT Temperature 36.6 ??C (97.9 ??F) 12/06/2022 11:30 AM C DT Respiratory Rate 16 12/06/2022 2:23 PM CDT Oxygen Saturation 96% 12/06/2022 12:08 PM CDT Inhaled Oxygen Concentration - - Weight 44.6 kg (98 lb 4.8 oz) 12/06/2022 7:36 AM CDT Height 154.9 cm (5' 1) 11/28/2022 11:27 PM CDT Body Mass Index 18.57 11/28/2022 11:27 PM CDT documented in this encounter Discharge Summaries * Lisa Ospina MD - 12/06/2022 8:12 AM CDT [facility] Hospitalist Discharge Summary Date of Admission: 11/28/2022 Date of Discharge: 12/06/2022 Discharging Provider: Lisa Ospina MD Discharge Service: Hospitalist Service Discharge Diagnoses Peritonitis 2/2 Corynebacterium stratum Hyponatremia ESRD on previously on PD, initiating HD 12/03 Acute HFpEF considered, ruled out, SILVER due to Covid Infection Grade 1 or early diastolic dysfunction per echocardiogram Type II DM COVID-19 infection Clinically Significant Risk Factors Follow-ups Needed After Discharge Follow-up Appointments Follow-up and recommended labs and tests Follow up with primary care provider, MAN ADAN, within 7 days for hospital follow- up. Follow up with integrity engineer as directed for lab monitoring and medication changes. You have several doses of your antibiotics that will be given at your dialysis sessions. Your dialysis will be : [facility] [address] [place] [address] Your first outpatient run will be on December 07. Please arrive at 1115 to complete paperwork. Discharge Disposition Discharged to home Condition at discharge: Stable Hospital Course Malachi Daly is a 77-year-old female with a past medical history significant for end-stage renal disease on peritoneal dialysis, type 2 diabetes, hypertension, chronic pain, tobacco use disorder, COPD, recent COVID infection and hospitalization s/p IV remdesivir, who presented 11/28/2022 to [place] [facility] with complaint of ongoing weakness and shortness of breath eventually transferred to [facility] as patient is on peritoneal dialysis. [facility] peritonitis 2/2 corynebacterium stratum. PD catheter removed 12/04. Now initiated on HD and dialyzed several times, with plan to continue outpatient on HD and complete remaining antibiotics with dialysis. Consultations This Hospital Stay NEPHROLOGY IP CONSULT CARDIOLOGY IP CONSULT INFECTIOUS DISEASES IP CONSULT PHARMACY TO DOSE [facility] ADULT IP CONSULT SURGERY GENERAL IP CONSULT CARE MANAGEMENT / SOCIAL WORK IP CONSULT Code Status Full Code Time Spent on this Encounter I, Lisa Ospina MD, personally saw the patient today and spent greater than 30 minutes discharging this patient. Lisa Ospina MD [facility] ORTH[facility] SPINE [address] [facility] [address] Physical Exam Vital Signs: Temp: 97.9 ??F (36.6 ??C) Temp src: Oral BP: (!) 148/49 Pulse: 79 Resp: 16 SpO2: 96 % O2 Device: None (Room air) Weight: 98 lbs 4.8 oz Primary Care Physician MAN ADAN Discharge Orders Reason for your hospital stay You were hospitalized for infection of your abdomen involving your peritoneal dialysis catheter. You started hemodialysis while in the hospital and will continue this as an outpatient. Follow-up and recommended labs and tests Follow up with primary care provider, MAN ADAN, within 7 days for hospital follow- up. Follow up with integrity engineer as directed for lab monitoring and medication changes. You have several doses of your antibiotics that will be given at your dialysis sessions. Your dialysis will be : [facility] [address] [place] [address] Your first outpatient run will be on December 07. Please arrive at 1115 to complete paperwork. Activity Your activity upon discharge: activity as tolerated Diet Follow this diet upon discharge: Orders Placed This Encounter Combination Diet Regular Diet; 3 gm K Diet (low potassium) Significant Results and Procedures Most Recent 3 CBC's: Recent Labs Lab Test 12/05/22 0706 12/04/22 0738 12/03/22 0656 WBC 11.5* 10.7 9.1 HGB 7.8* 8.9* 9.2* MCV 99 96 99 PLT 309 295 293 Most Recent 3 BMP's: Recent Labs Lab Test 12/06/22 1204 12/06/22 0606 12/06/22 0202 12/05/22 0738 12/05/22 0706 12/04/22 0930 12/04/22 0738 NA -- 126* -- -- 125* -- 129* POTASSIUM -- 5.6* -- -- 5.4* -- 4.4 CHLORIDE -- 93* -- -- 91* -- 93* CO2 -- 25 -- -- 26 -- 27 BUN -- 36.8* -- -- 34.8* -- 27.6* CR -- 4.20* -- -- 4.04* -- 3.30* ANIONGAP -- 8 -- -- 8 -- 9 PASTOR -- 8.4* -- -- 8.6* -- 8.6* GLC 96 157* 93 < > 208* < > 75 < > = values in this interval not displayed. Discharge Medications Current Discharge Medication List CONTINUE [...] 300 mg by mouth 3 times daily ndsxqcsi-csdbydvbb-pukXLDSXfxght (MAXITROL) 3.5-14679-9.[address] 0.25 inches Into the [...] needed for irritation Allergies Allergies Allergen Reactions Cats Shortness Of Breath [...] Lisinopril-Hydrochlorothiazide Rash Niacin Rash and Itching itch [place] Rash Pioglitazone Rash Itchy rash documented in this encounter Discharge Instructions * Discharge Instructions* Olga Guzman RN - 12/06/2022 11:56 AM CDT You will get your outpatient dialysis at: [facility] [address] [place] [address] Your first outpatient run will be on December 07. Please arrive at 1115 to complete paperwork. For subsequent runs, your chair time will be every MWF at 1200. You should plan to arrive 15 minutes prior to your chair time. Please bring: Two forms of ID Insurance cards Your CURRENT medication list Wear a button up shirt Bring something quiet to do Bring a pillow or a small blanket because the room can be chilly. documented in this encounter Medications at Time [...] by mouth 2 times daily 0 03/01/2022 cmtbgzfh-vncejqudm-gmm AMETHasone (MAXITROL) 3.5-00624-8.[address] 0.25 inches Into the left eye 4 times daily 0 09/24/2022 oxyCODONE (ROXICODONE) 5 MG tablet Take 10 mg by mouth at bedtime 0 04/17/2021 polyethylene glycol (MIRALAX) 17 g packet Take [...] daily as needed for irritation 0 01/24/2021 calcium acetate (PHOSLO) 667 MG CAPS capsule Take 667 mg by mouth 3 times daily (with meals) 0 12/17/2022 gabapentin (NEURONTIN) 300 MG capsule Take 300 mg by mouth at bedtime 0 09/07/2022 02/20/2023 nicotine (NICODERM CQ) 7 MG/24HR [address] 1 patch onto the skin every 24 hours 0 11/24/2021 02/20/2023 documented as of this encounter Progress Notes * JOE SUAZO - 12/06/2022 2:37 PM CDT Care Management Discharge Note Discharge Date: 12/06/2022 Discharge Disposition: home Discharge Transportation: taxi Additional Information: SW ordered taxi through [facility] since pt has no other means of transportation, see Sws note yesterday for more info. JUAN Sandhu, [facility] Inpatient Care Coordination [facility] [phone] * Olga Guzman RN - 12/06/2022 11:57 AM CDT Care Management Discharge Note Discharge Date: 12/06/2022 Discharge Disposition: home Discharge Services: Dialysis Discharge DME: Discharge Transportation: family or friend will provide Private pay costs discussed: Not applicable Does the patient's insurance plan have a 3 day qualifying hospital stay waiver? No Education Provided on the Discharge Plan: yes Persons Notified of Discharge Plans: commercial loan closer, staff veterinarian, patient Patient/Family in Agreement with the Plan: yes Handoff Referral Completed: No Additional Information: Patient discharging to home via taxi. See note yesterday. Patient has no way to get home. Your dialysis will be : [facility] [address] [place] [id number] Your first outpatient run will be on Saturday, December 07. Please arrive at 1115 to complete paperwork. For subsequent runs, your chair time will be every MWF at 1200. You should plan to arrive 15 minutes prior to your chair time. Please bring: Two forms of ID Insurance cards Your CURRENT medication list Wear a button up shirt Bring something quiet to do Bring a pillow or a small blanket because the room can be chilly. Jennifer Guzman RN, BSN, CM Inpatient Care Coordination [facility] [phone] * Paxton Adorno MD - 12/06/2022 11:33 AM CDT [facility] Infectious Disease Progress Note Assessment and Plan: Date of Admission: 11/28/2022 Date of Consult (When I saw the patient): 11/30/22 Assessment & Plan Malachi Marr is a 77 year old who was admitted on 11/28/2022. Impression: 1 77-year-old female, recent COVID-19 and hospitalization, treated with remdesivir, nowwith some worsened respiratory symptoms by primarily more significantly increased abdominal pain, has peritonitis with peritoneal dialysis catheter related infection with corynebacterium stratum 2 COVID-19, relatively mild not even on oxygen currently, also multiply colonized sputum with gram-negative rods but little to suggest active pneumonia 3 end-stage renal disease on peritoneal dialysis REC 1 we will hold off on further major COVID-19 treatment and would not treat the gram-negative rods in the sputum watch respiratory status and reconsider if worsening respiratory flanagan 2 vancomycin on board systemically with the levels somewhat high sensitivities on the corynebacterium are vanco sens, now hemodialysis , removed the peritoneal dialysis catheter now, discussed with nephrology Removed catheter will need to treat systemically, 2 weeks of vancomycin IV, looks like 1 gr given 12/04 , twice weekly 1 gr for 4 more doses next dose at Sat dialysis Discontinue flucon Interval History: no new complaints and doing well; no cp, sob, n/v/d, or abd pain. Does not feel particularly well today overall but no major fevers, abdominal pains resolved, no significant respiratory symptoms. Culture with corynebacterium probably not significant is the coag negative staph, ie usual R but sens vanco PD cath out tolerating dialysis, Vanco levels are such that likely well covered with twice weekly Medications: - MEDICATION INSTRUCTIONS for Dialysis Patients - Does not apply See Admin Instructions amLODIPine 10 mg Oral BID aspirin 81 mg Oral Daily calcium acetate 667 mg Oral TID w/meals carboxymethylcellulose PF 1 drop Left Eye 4x Daily cetirizine 10 mg Oral Daily cloNIDine 0.2 mg Oral QAM And cloNIDine 0.2 mg Oral QPM erythromycin Left Eye 4x Daily [Held by provider] glipiZIDE 20 mg Oral Daily before supper heparin ANTICOAGULANT 5,000 Units Subcutaneous Q12H insulin aspart 1-7 Units Subcutaneous TID AC insulin aspart 1-5 Units Subcutaneous At Bedtime [Held by provider] insulin glargine 3 Units Subcutaneous QAM AC labetalol 300 mg Oral TID nicotine 1 patch Transdermal Daily And nicotine Transdermal Q8H ROXI oxyCODONE 15 mg Oral At Bedtime polyethylene glycol 17 g Oral Q3 Days repaglinide 1 mg Oral TID AC sennosides 1 tablet Oral Q3 Days sorbitol 30 mL Oral Q3 Days vancomycin place salcedo - receiving intermittent dosing 1 each Intravenous See Admin Instructions Physical Exam: Blood pressure (!) 154/88, pulse 80, temperature 97.1 ??F (36.2 ??C), temperature source Axillary, resp. rate 16, height 1.549 m (5' 1), weight 44.6 kg (98 lb 4.8 oz), SpO2 100%. Wt Readings from Last 2 Encounters: 12/06/22 44.6 kg (98 lb 4.8 oz) 11/24/22 42 kg (92 lb 9.5 oz) Vital Signs with Ranges Temp: [96.8 ??F (36 ??C)-97.6 ??F (36.4 ??C)] 97.1 ??F (36.2 ??C) Pulse: [56-80] 80 Resp: [16-18] 16 BP: (127-154)/(47-114) 154/88 SpO2: [96 %-100 %] 100 % Constitutional: Awake, alert, cooperative, no apparent distress looks well Lungs: Clear to auscultation bilaterally, no crackles or wheezing Cardiovascular: Regular rate and rhythm, normal S1 and S2, and no murmur noted Abdomen: Normal bowel sounds, soft, non-tender less distended Skin: No rashes, no cyanosis, no edema Other: Data: All microbiology laboratory data reviewed. Recent Labs Lab Test 12/05/22 0706 12/04/22 0738 12/03/22 0656 WBC 11.5* 10.7 9.1 HGB 7.8* 8.9* 9.2* HCT 23.3* 27.2* 25.5* MCV 99 96 99 PLT 309 295 293 Recent Labs Lab Test 12/06/22 0606 12/05/22 0706 12/04/22 0738 CR 4.20* 4.04* 3.30* No lab results found. No lab results found. Invalid input(s): UC * Jonnathan Wood MD - 12/06/2022 10:30 AM CDT Renal Medicine Progress Note Malachi Marr Age: [age] year old Date of : 1945 Date of Admission: 11/28/2022 Hospital LOS: 7 Assessment/Plan: 77 y.o woman with ESRD and COVID 19 infection. # ESRD on PD: She does only 2 cycles? -Dr. Gabriel Mena at [facility] PD clinic ([phone]-[place]) -fill volume of 1300 ml x 2 cycles -5 hrs # Peritonitis: PD fluid is growing Corynebacterium striatum -ID is on board # COVID-19 infection: -manage per primary team # CKD-MBD: -Phoslo # Anemia: Hgb is at target. # HTN: -Norvasc -clonidine -Labetabol # Hyperkalemia: -normalized with dialysis Patient has transitioned to HD Initial run 12/03/22 Plan dialysis today Orders called to outpatient unit First run 12/07/22 OK to discharge today Interval History: Dialysis run parameters reviewed with deputy director of finance at patient bedside. Seen on run 2.5 hours 2K 0.5 liter UF AVF 17 g needles Stable run ROS: GENERAL: NAD, No fever,chills CV: NEGATIVE for chest pain, palpitations EXT: no change edema ROS otherwise negative Medications and Allergies: Reviewed Physical Exam: Vitals were reviewed Temp: 97.1 ??F (36.2 ??C) Temp src: Axillary BP: (!) 141/80 Pulse: 80 Resp: 16 SpO2: 100 % O2 Device: None (Room air) Wt Readings from Last 4 Encounters: 12/06/22 44.6 kg (98 lb 4.8 oz) 11/24/22 42 kg (92 lb 9.5 oz) I/O last 3 completed shifts: In: 415 [P.O.:415] Out: - Vitals: 12/01/22 1219 12/02/22 0452 12/03/22 0728 12/04/22 0436 Weight: 44 kg (97 lb) 41.7 kg (91 lb 14.9 oz) 42.4 kg (93 lb 6.4 oz) 42.4 kg (93 lb 6.4 oz) 12/06/22735 Weight: 44.6 kg (98 lb 4.8 oz) GENERAL: awake, alert, follows HEENT: NC/AT, PERRLA, EOMI, non icteric, pharynx moist without lesion RESP: clear anteriorly CV: RRR, normal S1 S2 ABDOMEN: soft, nontender, no HSM or masses and bowel sounds normal MS: no clubbing, cyanosis SKIN: clear without significant rashes or lesions NEURO: speech normal and cranial nerves 2-12 intact PSYCH: affect normal/bright EXT: warm, no edema Data: Recent Labs Lab 12/06/22 0606 12/06/22 0202 12/05/22 2116 12/05/22 1705 12/05/22 0738 12/05/22 0706 12/04/22 0930 12/04/22 0738 12/03/22 0731 12/03/22 0656 NA 126* -- -- -- -- 125* -- 129* -- 127* POTASSIUM 5.6* -- -- -- -- 5.4* -- 4.4 -- 5.0 CHLORIDE 93* -- -- -- -- 91* -- 93* -- 90* CO2 25 -- -- -- -- 26 -- 27 -- 27 ANIONGAP 8 -- -- -- -- 8 -- 9 -- 10 GLC 157* 93 267* 146* < > 208* < > 75 < > 86 BUN 36.8* -- -- -- -- 34.8* -- 27.6* -- 52.9* CR 4.20* -- -- -- -- 4.04* -- 3.30* -- 4.90* GFRESTIMATED 10* -- -- -- -- 11* -- 14* -- 9* PASTOR 8.4* -- -- -- -- 8.6* -- 8.6* -- 8.6* < > = values in this interval not displayed. Recent Labs Lab 12/06/22 0612/05/22 0706 12/04/22 0738 12/03/22 0656 12/02/22 0639 12/01/22 0735 11/30/22 0723 CR 4.20* 4.04* 3.30* 4.90* 4.88* 4.78* 4.78* Recent Labs Lab 11/30/22 0723 ALBUMIN 2.5* Recent Labs Lab 12/05/22 0706 12/04/22 0738 12/03/22 0656 12/02/22 0639 HGB 7.8* 8.9* 9.2* 9.9* Vancomycin Date Value Ref Range Status 12/05/2022 27.8 (HH) ug/mL Final Comment: Traditional Dosing Therapeutic Range: Trough 10-15 ug/mL Peak 20-40 ug/mL Critical: Greater than 25.0 ug/mL Jonnathan Wood MD [facility] - Nephrology [phone] * Monika Jones RN - 12/06/2022 9:33 AM CDT Potassium Date Value Ref Range Status 12/06/2022 5.6 (H) 3.4 - 5.3 mmol/L Final Hemoglobin Date Value Ref Range Status 12/05/2022 7.8 (L) 11.7 - 15.7 g/dL Final Creatinine Date Value Ref Range Status 12/06/2022 4.20 (H) 0.51 - 0.95 mg/dL Final Urea Nitrogen Date Value Ref Range Status 12/06/2022 36.8 (H) 8.0 - 23.0 mg/dL Final Sodium Date Value Ref Range Status 12/06/2022 126 (L) 135 - 145 mmol/L Final Comment: [...] this patients hepatitis status. Patient dialyzed for 2.5 hrs. on a K2 bath with a net fluid removal of 0.5L. A BFR of 250 ml/min was obtained via a L AVF using 17 gauge needles. The treatment plan was discussed with Dr. Wood during the treatment. Total heparin received during the treatment: 0 units. Needle cannulation sites held x 5 min. Meds given: none Complications: none Person educated: Patient. Knowledge base moderate. Barriers to learning: none. [...] to treatment See Adult Hemodialysis flowsheet in [facility] for further details and post assessment. Machine water alarm in place and functioning. Transducer pods intact and checked every 15min. Pt assisted with repositioning throughout dialysis treatment. Pt returned via wheelchair. Chlorine/Chloramine water system checked every 4 hours. Outpatient Dialysis at [facility], chair time pending. Post treatment report given to SUSANA Peguero regarding 0.5L of fluid removed, last BP 137/89. Please remove patient dressing on AVF and AVG needle sites 24 hours after dialysis. If leaking occurs please apply a Band-Aid. Monika Jones RN * JOE SUAZO - 12/05/2022 4:03 PM CDT Care Management Follow Up Length of Stay (days): 6 Expected Discharge Date: 12/06/2022 Concerns to be Addressed: (P) discharge planning, care coordination/care conferences Patient plan of care discussed at interdisciplinary rounds: Yes Anticipated Discharge Disposition: Anticipated Discharge Services: Anticipated Discharge DME: Patient/family educated on Medicare website which has current facility and service quality ratings: Education Provided on the Discharge Plan: Patient/Family in Agreement with the Plan: (P) unable to assess Referrals Placed by CM/SW: Private pay costs discussed: Not applicable Additional Information: Pt is in need for transportation back home to [place] tomorrow, per provider. SW met with pt to discuss transportation. Pt's sons are not able to medicinal plant picker pt since they don't have a DL. Pt's insurance doesn't have medical transport. Pt uses community transit for appts. Pt has no means of transportation home tomorrow. SW/CM will need to order a taxi after pt's dialysis tomorrow. JUAN Sandhu, [facility] Inpatient Care Coordination [facility] [phone] * Jonnathan Wood MD - 12/05/2022 2:52 PM CDT Renal Medicine Progress Note Malachi Marr Age: [age] year old Date of : 1945 Date of Admission: 11/28/2022 Hospital LOS: 6 Assessment/Plan: 77 y.o woman with ESRD and COVID 19 infection. # ESRD on PD: She does only 2 cycles? -Dr. Gabriel Mena at [facility] PD clinic ([phone]) -fill volume of 1300 ml x 2 cycles -5 hrs # Peritonitis: PD fluid is growing Corynebacterium striatum -ID is on board # COVID-19 infection: -manage per primary team # CKD-MBD: -Phoslo # Anemia: Hgb is at target. # HTN: -Norvasc -clonidine -Labetabol # Hyperkalemia: -normalized with dialysis Patient has transitioned to HD Initial run 12/03/22 Plan dialysis today Orders called to outpatient unit First run 12/07/22 Interval History: Comfortable in room No CP or SOB Follows ROS: GENERAL: NAD, No fever,chills CV: NEGATIVE for chest pain, palpitations EXT: no change edema ROS otherwise negative Medications and Allergies: Reviewed Physical Exam: Vitals were reviewed Temp: 97 ??F (36.1 ??C) Temp src: Temporal BP: 129/52 Pulse: 67 Resp: 16 SpO2: 98 % O2 Device: None(Room air) Oxygen Delivery: 1 LPM Wt Readings from Last 4 Encounters: 12/04/22 42.4 kg (93 lb 6.4 oz) 11/24/22 42 kg (92 lb 9.5 oz) I/O last 3 completed shifts: In: 80 [I.V.:80] Out: 300 [Urine:300] Vitals: 11/30/22 0744 12/01/22 1219 12/02/22 0452 12/03/22 0728 Weight: 43.5 kg (95 lb 12.8 oz) 44 kg (97 lb) 41.7 kg (91 lb 14.9 oz) 42.4 kg (93 lb 6.4 oz) 12/04/22 0436 Weight: 42.4 kg (93 lb 6.4 oz) GENERAL: awake, alert, follows HEENT: NC/AT, PERRLA, EOMI, non icteric, pharynx moist without lesion RESP: clear anteriorly CV: RRR, normal S1 S2 ABDOMEN: soft, nontender, no HSM or masses and bowel sounds normal MS: no clubbing, cyanosis SKIN: clear without significant rashes or lesions NEURO: speech normal and cranial nerves 2-12 intact PSYCH: affect normal/bright EXT: warm, no edema Data: Recent Labs Lab 12/05/22 1140 12/05/22 0738 12/05/22 0706 12/05/22 0149 12/04/22 0930 12/04/22 0738 12/03/22 0731 12/03/22 0656 12/02/22 0806 12/02/22 0639 NA -- -- 125* -- -- 129* -- 127* -- 126* POTASSIUM -- -- 5.4* -- -- 4.4 -- 5.0 -- 5.0 CHLORIDE -- -- 91* -- -- 93* -- 90* -- 90* CO2 -- -- 26 -- -- 27 -- 27 -- 27 ANIONGAP -- -- 8 -- -- 9 -- 10 -- 9 GLC 195* 198* 208* 209* < > 75 < > 86 < > 88 BUN -- -- 34.8* -- -- 27.6* -- 52.9* -- 53.4* CR -- -- 4.04* -- -- 3.30* -- 4.90* -- 4.88* GFRESTIMATED -- -- 11* -- -- 14* -- 9* -- 9* PASTOR -- -- 8.6* -- -- 8.6* -- 8.6* -- 8.6* < > = values in this interval not displayed. Recent Labs Lab 12/05/22 0706 12/04/22 0738 12/03/22 0656 12/02/22 0639 12/01/22 0735 11/30/22 0723 11/29/22 0628 11/29/22 0213 CR 4.04* 3.30* 4.90* 4.88* 4.78* 4.78* 4.54* 4.58* Recent Labs Lab 11/30/22722 ALBUMIN 2.5* Recent Labs Lab 12/05/22 0706 12/04/22 0738 12/03/22 0656 12/02/2239 HGB 7.8* 8.9* 9.2* 9.9* Vancomycin Date Value Ref Range Status 12/05/2022 27.8 (HH) ug/mL Final Comment: Traditional Dosing Therapeutic Range: Trough 10-15 ug/mL Peak 20-40 ug/mL Critical: Greater than 25.0 ug/mL Jonnathan Wood MD [facility] - Nephrology [phone] * Jackeline Davenport - 12/05/2022 1:34 PM CDT [facility] - Progress Note [facility] Med/Surg Unit 6 Referral Source: Length of Stay Attempted to visit with pt Malachi but pt was on the phone. Plan: Will attempt to visit again tomorrow. [facility] remains available. Niraj Hawkins [employer] Coordinator [facility] routine referrals *[id number] [facility] available 03/09 for emergent requests/referrals, either by paging the on-call bit tapper or by entering an GENEVA/STAT consult in [facility] (this will also page the on-call bit tapper). * Paxton Adorno MD - 12/05/2022 11:59 AM CDT [facility] Infectious Disease Progress Note Assessment and Plan: Date of Admission: 11/28/2022 Date of Consult (When I saw the patient): 11/30/22 Assessment & Plan Malachi Marr is a 77 year old who was admitted on 11/28/2022. Impression: 1 77-year-old female, recent COVID-19 and hospitalization, treated with remdesivir, nowwith some worsened respiratory symptoms by primarily more significantly increased abdominal pain, has peritonitis with peritoneal dialysis catheter related infection with corynebacterium stratum 2 COVID-19, relatively mild not even on oxygen currently, also multiply colonized sputum with gram-negative rods but little to suggest active pneumonia 3 end-stage renal disease on peritoneal dialysis REC 1 we will hold off on further major COVID-19 treatment and would not treat the gram-negative rods in the sputum watch respiratory status and reconsider if worsening respiratory flanagan 2 vancomycin on board systemically with the levels somewhat high sensitivities on the corynebacterium are vanco sens, now hemodialysis , removed the peritoneal dialysis catheter now, discussed with nephrology Removed catheter will need to treat systemically, 2 weeks of vancomycin IV, looks like 1 gr given 12/04 , twice weekly 1 gr for 4 more doses next dose Fri dialysis Discontinue flucon Interval History: no new complaints and doing well; no cp, sob, n/v/d, or abd pain. Does not feel particularly well today overall but no major fevers, abdominal pains resolved, no significant respiratory symptoms. Culture with corynebacterium probably not significant is the coag negative staph, ie usual R but sens vanco PD cath out Medications: - MEDICATION INSTRUCTIONS for Dialysis Patients - Does not apply See Admin Instructions amLODIPine 10 mg Oral BID aspirin 81 mg Oral Daily calcium acetate 667 mg Oral TID w/meals carboxymethylcellulose PF 1 drop Left Eye 4x Daily cetirizine 10 mg Oral Daily cloNIDine 0.2 mg Oral QAM And cloNIDine 0.2 mg Oral QPM erythromycin Left Eye 4x Daily [Held by provider] glipiZIDE 20 mg Oral Daily before supper heparin ANTICOAGULANT 5,000 Units Subcutaneous Q12H insulin aspart 1-7 Units Subcutaneous TID AC insulin aspart 1-5 Units Subcutaneous At Bedtime [Held by provider] insulin glargine 3 Units Subcutaneous QAM AC labetalol 300 mg Oral TID nicotine 1 patch Transdermal Daily And nicotine Transdermal Q8H ROXI oxyCODONE 10 mg Oral At Bedtime polyethylene glycol 17 g Oral Q3 Days repaglinide 1 mg Oral TID AC sennosides 1 tablet Oral Q3 Days sorbitol 30 mL Oral Q3 Days vancomycin place salcedo - receiving intermittent dosing 1 each Intravenous See Admin Instructions Physical Exam: Blood pressure 131/51, pulse 59, temperature 97.7 ??F (36.5 ??C), temperature source Temporal, resp. rate 18, height 1.549 m (5' 1), weight 42.4 kg (93 lb 6.4 oz), SpO2 95%. Wt Readings from Last 2 Encounters: 12/04/22 42.4 kg (93 lb 6.4 oz) 11/24/22 42 kg (92 lb 9.5 oz) Vital Signs with Ranges Temp: [97.5 ??F (36.4 ??C)-97.8 ??F (36.6 ??C)] 97.7 ??F (36.5 ??C) Pulse: [56-68] 59 Resp: [16-18] 18 BP: (113-142)/(42-63) 131/51 SpO2: [93 %-97 %] 95 % Constitutional: Awake, alert, cooperative, no apparent distress Lungs: Clear to auscultation bilaterally, no crackles or wheezing Cardiovascular: Regular rate and rhythm, normal S1 and S2, and no murmur noted Abdomen: Normal bowel sounds, soft, non-tender less distended Skin: No rashes, no cyanosis, no edema Other: Data: All microbiology laboratory data reviewed. Recent Labs Lab Test 12/05/22 0706 12/04/22 0738 12/03/22 0656 WBC 11.5* 10.7 9.1 HGB 7.8* 8.9* 9.2* HCT 23.3* 27.2* 25.5* MCV 99 96 99 PLT 309 295 293 Recent Labs Lab Test 12/05/22 0706 12/04/22 0738 12/03/22 0656 CR 4.04* 3.30* 4.90* No lab results found. No lab results found. Invalid input(s): UC * Lisa Ospina MD - 12/05/2022 8:45 AM CDT [facility] Medicine Progress Note - Hospitalist Service Date of Admission: 11/28/2022 Assessment & Plan Malachi Daly is a 77-year-old female with a past medical history significant for end-stage renal disease on peritoneal dialysis, type 2 diabetes, hypertension, chronic pain, tobacco use disorder, COPD, recent COVID infection and hospitalization s/p IV remdesivir, who presented 11/28/2022 to [facility] with complaint of ongoing weakness and shortness of breath eventually transferred to [facility] as patient is on peritoneal dialysis. [facility] peritonitis 2/2 corynebacterium stratum. PD catheter removed 12/04. Now initiated on HD. Likely discharge 12/06. Peritonitis 2/2 Corynebacterium stratum Patient reported some abdominal discomfort. Peritoneal fluid consistent with infection and culture showed Corynebacterium stratum. Received IP vancomycin until PD catheter removed 12/03. - ID following - Continue IV vancomycin - Likely will need ~2 weeks of IV vancomycin, plan dependent on final sensitivities Hyponatremia Likely 2/2 poor oral intake. Encouraged high protein, liberal salt diet. Na 12/05 125,128 when corrected for hyperglycemia. - Low K diet -daily bmp ESRD on previously on PD, initiating HD 12/03 With the above infection, PD catheter removed. Patient no longer interested in PD. Has LUE AVF. Started HD 12/03 with MWF schedule. -Nephrology consulted for dialysis, following -dialysis today Acute HFpEF considered, ruled out, SILVER due to Covid Infection Grade 1 or early diastolic dysfunction per echocardiogram Reported that her breathing is fine until she exerts herself. No prior diagnosis of heart failure. proBNP is elevated above 2000. Echocardiogram shows ejection fraction of 75 to 80% with hyperdynamicleft ventricle. Noted to have bibasilar crackles on exam as well. Cardiology consulted, appreciate recs. Feels like her symptoms are more likely related to COVID than heart failure. Received multiple days of IV diuretics to optimize lung and help manage hyperK. -Holding [employer] lasix while transitioning to HD, likely resume tomorrow Type II DM Prior to admission on glipizide and repaglinide. Started on 3U glargine for hyperglycemia. Had low of 66 on 12/03, so glargine held. BG fluctuating with low of 75 and highs in 300s. Most recent high related to steroids given during anesthesia during PD catheter removal. - Hold glargine, reassess 12/06 - sliding scale insulin COVID-19 infection Patient was recently hospitalized at [facility] from 11/24- due to COVID-19 infection. She received IV remdesivir; not hypoxic so did not get dexamethasone. CXR 11/25 without any focal findings. She was discharged to home, however she continued to feel short of breath so returned to [facility]. She underwent CT angiogram which did not show any PE per H&P. No records available in [facility]. Reports SILVER. Never hypoxic here, no fever/chills, diarrhea, myalgias. Gram stain grew multiple organisms - Stenotrophomonas, Klebsiella. ID consulted, appreciate recs. No indication for further COVID treatment. Little to suggest active bacterial PNA, suspect colonization. -Status post IV remdesivir -Refer to outpatient COVID pulmonary rehab at the time of discharge Tobacco use disorder -Encourage cessation Hypertension -Resume prior to admission clonidine, labetalol. Chronic pain on chronic opioid -Resume prior to admission oxycodone 10 mg at bedtime Ophthalmologic issues -Resume prior to admission ophthalmic ointments Hyperkalemia, resolved - mild hyperK 12/01, resolved with lokelma and extra dose of lasix Diet: Combination Diet Regular Diet; 3 gm K Diet (low potassium) DVT Prophylaxis: Heparin SQ Jones Catheter: Not present Lines: None Cardiac Monitoring: None Code Status: Full Code Clinically Significant Risk Factors # Hyperkalemia: Highest K = 5.4 mmol/L in last 2 days, will monitor as appropriate # Hyponatremia: Lowest Na = 125 mmol/L in last 2 days, will monitor as appropriate # Hypoalbuminemia: Lowest albumin = 2.5 g/dL at 11/30/2022 7:23 AM, will monitor as appropriate # Cachexia: Estimated body mass index is 17.65 kg/m?? as calculated from the following: Height as of this encounter: 1.549 m (5' 1). Weight as of this encounter: 42.4 kg (93 lb 6.4 oz). # Financial/Environmental Concerns: Disposition Plan Expected Discharge Date: 12/06/2022 Destination: (P) other (comment) (TBD) Discharge Comments: Patient wants TCU. States cannot go home, son has Covid. Lisa Ospina MD Hospitalist Service [facility] Securely message with [employer] (more info) Text page via [facility] Paging/Directory Interval History Having pain overnight where drain was pulled Physical Exam Vital Signs: Temp: 97.7 ??F (36.5 ??C) Temp src: Temporal BP: 131/51 Pulse: 59 Resp: 18 SpO2: 95 % O2 Device: None (Room air) Oxygen Delivery: 1 LPM Weight: 93 lbs 6.4 oz General: Very pleasant female resting comfortably in hospital bed. Awake, alert, interactive. Cardiac: Regular rate and rhythm without murmur, gallop, or rub. Respiratory: Normal work of breathing. GI: Abdomen soft, nontender Musculoskeletal: Moving all extremities appropriately. Skin: xerosis Neurologic: Alert. Psychologic: Appropriate mood and affect. Medical Decision Making 42 MINUTES SPENT BY ME on the date of service doing chart review, history, exam, documentation & further activities per the note. Data I have personally reviewed the following data over the past 24 hrs: 11.5 (H) \ 7.8 (L) / 309 125 (L) 91 (L) 34.8 (H) / 195 (H) 5.4 (H) 26 4.04 (H) \ * Paxton Adorno MD - 12/04/2022 2:18 PM CDT [facility] Infectious Disease Progress Note Assessment and Plan: Date of Admission: 11/28/2022 Date of Consult (When I saw the patient): 11/30/22 Assessment & Plan Malachi Marr is a 77 year old who was admitted on 11/28/2022. Impression: 1 77-year-old female, recent COVID-19 and hospitalization, treated with remdesivir, nowwith some worsened respiratory symptoms by primarily more significantly increased abdominal pain, has peritonitis with peritoneal dialysis catheter related infection with corynebacterium stratum 2 COVID-19, relatively mild not even on oxygen currently, also multiply colonized sputum with gram-negative rods but little to suggest active pneumonia 3 end-stage renal disease on peritoneal dialysis REC 1 we will hold off on further major COVID-19 treatment and would not treat the gram-negative rods in the sputum watch respiratory status and reconsider if worsening respiratory flanagan 2 vancomycin on board both systemically with the levels somewhat high sensitivities on the corynebacterium are vanco sens, now hemodialysis , removed the peritoneal dialysis catheter now, discussed with nephrology Removed catheter will need to treat systemically, 2 weeks of vancomycin IV, looks like 1 gr given today and twice weekly 1 gr for 4 more doses Interval History: no new complaints and doing well; no cp, sob, n/v/d, or abd pain. Does not feel particularly well today overall but no major fevers, abdominal pains resolved, no significant respiratory symptoms. Culture with corynebacterium probably not significant is the coag negative staph, ie usual R but sens vanco PD cath out Medications: - MEDICATION INSTRUCTIONS for Dialysis Patients - Does not apply See Admin Instructions amLODIPine 10 mg Oral BID aspirin 81 mg Oral Daily calcium acetate 667 mg Oral TID w/meals carboxymethylcellulose PF 1 drop Left Eye 4x Daily cetirizine 10 mg Oral Daily cloNIDine 0.2 mg Oral QAM And cloNIDine 0.2 mg Oral QPM erythromycin Left Eye 4x Daily fluconazole 100 mg Oral Daily [Held by provider] glipiZIDE 20 mg Oral Daily before supper heparin ANTICOAGULANT 5,000 Units Subcutaneous Q12H insulin aspart 1-7 Units Subcutaneous TID AC insulin aspart 1-5 Units Subcutaneous At Bedtime [Held by provider] insulin glargine 3 Units Subcutaneous QAM AC labetalol 300 mg Oral TID nicotine 1 patch Transdermal Daily And nicotine Transdermal Q8H ROXI oxyCODONE 10 mg Oral At Bedtime polyethylene glycol 17 g Oral Q3 Days repaglinide 1 mg Oral TID AC sennosides 1 tablet Oral Q3 Days sorbitol 30 mL Oral Q3 Days vancomycin place salcedo - receiving intermittent dosing 1 each Intravenous See Admin Instructions Physical Exam: Blood pressure 131/63, pulse 58, temperature 97.7 ??F (36.5 ??C), temperature source Temporal, resp. rate 17, height 1.549 m (5' 1), weight 42.4 kg (93 lb 6.4 oz), SpO2 97%. Wt Readings from Last 2 Encounters: 12/04/22 42.4 kg (93 lb 6.4 oz) 11/24/22 42 kg (92 lb 9.5 oz) Vital Signs with Ranges Temp: [97 ??F (36.1 ??C)-99 ??F (37.2 ??C)] 97.7 ??F (36.5 ??C) Pulse: [55-77] 58 Resp: [11-37] 17 BP: (88-166)/(41-88) 131/63 SpO2: [87 %-100 %] 97 % Constitutional: Awake, alert, cooperative, no apparent distress Lungs: Clear to auscultation bilaterally, no crackles or wheezing Cardiovascular: Regular rate and rhythm, normal S1 and S2, and no murmur noted Abdomen: Normal bowel sounds, soft, non-tender less distended Skin: No rashes, no cyanosis, no edema Other: Data: All microbiology laboratory data reviewed. Recent Labs Lab Test 12/04/22 0738 12/03/22 0656 12/02/22 0639 WBC 10.7 9.1 11.9* HGB 8.9* 9.2* 9.9* HCT 27.2* 25.5* 28.1* MCV 96 99 95 PLT 295 293 279 Recent Labs Lab Test 12/04/22 0738 12/03/22 0656 12/02/22 0639 CR 3.30* 4.90* 4.88* No lab results found. No lab results found. Invalid input(s): UC * Jonnathan Wood MD - 12/04/2022 12:06 PM CDT Renal Medicine Following for ESRD Transitioning to HD PD removed HD in am Comfortable post procedure [facility] Labs Lab 12/04/22 0738 12/03/22 0656 POTASSIUM 4.4 5.0 Norma Wood [facility] [phone] * Nidia Yanez DO - 12/04/2022 7:37 AM CDT [facility] Medicine Progress Note - Hospitalist Service Date of Admission: 11/28/2022 Assessment & Plan Malachi Daly is a 77-year-old female with a past medical history significant for end-stage renal disease on peritoneal dialysis, type 2 diabetes, hypertension, chronic pain, tobacco use disorder, COPD, recent COVID infection and hospitalization s/p IV remdesivir, who presented 11/28/2022 to [facility] with complaint of ongoing weakness and shortness of breath eventually transferred to [facility] as patient is on peritoneal dialysis. [facility] peritonitis 2/2 corynebacterium stratum. PD catheter removed 12/04. Now initiated on HD. Likely discharge in 1-2 days. Peritonitis 2/2 Corynebacterium stratum Patient reported some abdominal discomfort. Peritoneal fluid consistent with infection and culture showed Corynebacterium stratum. Received IP vancomycin until PD catheter removed 12/03. - ID following - Continue IV vancomycin - Likely will need ~2 weeks of IV vancomycin, plan dependent on final sensitivities Hyponatremia Likely 2/2 poor oral intake. Encouraged high protein, liberal salt diet. - Low K diet for now, switch back to renal diet once hypoNa resolves ESRD on previously on PD, initiating HD 12/03 With the above infection, PD catheter needs to be removed. Patient no longer interested in PD. Has LUE AVF. Started HD 12/03. -Nephrology consulted for dialysis. Acute HFpEF considered, ruled out, SILVER due to Covid Infection Grade 1 or early diastolic dysfunction per echocardiogram Reported that her breathing is fine until she exerts herself. No prior diagnosis of heart failure. proBNP is elevated above 2000. Echocardiogram shows ejection fraction of 75 to 80% with hyperdynamicleft ventricle. Noted to have bibasilar crackles on exam as well. Cardiology consulted, appreciate recs. Feels like her symptoms are more likely related to COVID than heart failure. Received multiple days of IV diuretics to optimize lung and help manage hyperK. -Holding [employer] lasix while transitioning to HD, likely resume tomorrow Type II DM Prior to admission on glipizide and repaglinide. Started on 3U glargine for hyperglycemia. Had low of 66 on 12/03, so glargine held. BG fluctuating with low of 75 and highs in 300s. Most recent high related to steroids given during anesthesia during PD catheter removal. - Hold glargine - sliding scale insulin COVID-19 infection Patient was recently hospitalized at [facility] from 11/24- due to COVID-19 infection. She received IV remdesivir; not hypoxic so did not get dexamethasone. CXR 11/25 without any focal findings. She was discharged to home, however she continued to feel short of breath so returned to [facility] ED. She underwent CT angiogram which did not show any PE per H&P. No records available in [facility]. Reports SILVER. Never hypoxic here, no fever/chills, diarrhea, myalgias. Gram stain grew multiple organisms - Stenotrophomonas, Klebsiella. ID consulted, appreciate recs. No indication for further COVID treatment. Little to suggest active bacterial PNA, suspect colonization. -Status post IV remdesivir -Refer to outpatient COVID pulmonary rehab at the time of discharge Tobacco use disorder -Encourage cessation Hypertension -Resume prior to admission clonidine, labetalol. Chronic pain on chronic opioid -Resume prior to admission oxycodone 10 mg at bedtime Ophthalmologic issues -Resume prior to admission ophthalmic ointments Hyperkalemia, resolved - mild hyperK 12/01, resolved with lokelma and extra dose of lasix Diet: NPO per Anesthesia Guidelines for Procedure/Surgery Except for: Meds DVT Prophylaxis: Heparin SQ Jones Catheter: Not present Lines: None Cardiac Monitoring: None Code Status: Full Code Clinically Significant Risk Factors # Hyponatremia: Lowest Na = 127 mmol/L in last 2 days, will monitor as appropriate # Hypoalbuminemia: Lowest albumin = 2.5 g/dL at 11/30/2022 7:23 AM, will monitor as appropriate # Cachexia: Estimated body mass index is 17.65 kg/m?? as calculated from the following: Height as of this encounter: 1.549 m (5' 1). Weight as of this encounter: 42.4 kg (93 lb 6.4 oz). # Financial/Environmental Concerns: Disposition Plan Expected Discharge Date: 12/06/2022 Discharge Comments: pending PT eval and antibiotic plan Nidia Yanez DO Hospitalist Service [facility] Securely message with [employer] (more info) Text page via [facility] Paging/Directory Interval History No acute overnight events. PD catheter removed this morning. Doing well post procedure. Dyspnea is improving, very minimal dyspnea after walking to and from the bathroom. Denies fever/chills, abdominal pain, diarrhea, or other acute concerns. Physical Exam Vital Signs: Temp: 99 ??F (37.2 ??C) Temp src: Temporal BP: 128/65 Pulse: 66 Resp: 17 SpO2: 99 % [id number]: None (Room air) Weight: 93 lbs 6.4 oz Constitutional: Awake, alert, no distress, and cooperative Cardiovascular: Regular rate and rhythm, normal S1 and S2, no S3 or S4, and no murmur noted Respiratory: No increased work of breathing, good air exchange, clear to auscultation bilaterally, no crackles or wheezing Gastrointestinal: Abdomen soft, non-tender, non-distended. BS normal. No masses, organomegaly Medical Decision Making 40 MINUTES SPENT BY ME on the date of service doing chart review, history, exam, documentation & further activities per the note. Data I have personally reviewed the following data over the past 24 hrs: 10.7 \ 8.9 (L) / 295 129 (L) 93 (L) 27.6 (H) / 303 (H) 4.4 27 3.30 (H) \ * Nash Alvarado MD - 12/03/2022 6:27 PM CDT Full consult to follow Patient made NPO for likely PD cath removal tomorrow * Domonique Zaidi RN - 12/03/2022 3:27 PM CDT Potassium Date Value Ref Range Status 12/03/2022 5.0 3.4 - 5.3 mmol/L Final Hemoglobin Date Value Ref Range Status 12/03/2022 9.2 (L) 11.7 - 15.7 g/dL Final Creatinine Date Value Ref Range Status 12/03/2022 4.90 (H) 0.51 - 0.95 mg/dL Final Urea Nitrogen Date Value Ref Range Status 12/03/2022 52.9 (H) 8.0 - 23.0 mg/dL Final Sodium Date Value Ref Range Status 12/03/2022 127 (L) 135 - 145 mmol/L Final Comment: [...] this patients hepatitis status. Patient dialyzed for 2 hrs. on a K2 bath with a net fluid removal of 0.25L. A BFR of 200 ml/min wasobtained via a L-AVF using 17 gauge needles. The treatment plan was discussed with Dr. Wood during the treatment. Total heparin received during the treatment: 0 units. Needle cannulation sites held x 10 min. Meds given: none Complications: none Person educated: Pre-tx. Knowledge base minimal. Barriers to learning: none. Educated on procedure [...] to treatment See Adult Hemodialysis flowsheet in [facility] for further details and post assessment. Machine water alarm in place and functioning. Transducer pods intact and checked every 15min. Pt returned via wheelchair. Chlorine/Chloramine water system checked every 4 hours. Outpatient Dialysis at [facility] Patient repositioned every 2 hours during the treatment. Post treatment report given to Jen Sainz RN regarding 0.25L of fluid removed, last BP of 166/75, and patient pain rating of 0/10. Please remove patient dressing on AVF and AVG needle sites 24 hours after dialysis. If leaking occurs please apply a Band-Aid. * Nilay Dill RN - 12/03/2022 2:57 PM CDT Cycler set up per protocol and per treatment orders Results from previous treatment: Effluent color and clarity: yellow, clear, no fibrin noted Total UF: 786 Initial Drain: 123 Avg Dwell: 2:07 Lost Dwell: 0:11 Patient is switching over to Hemodialysis today Cycler Serial Number: [id number] * Jonnathan Wood MD - 12/03/2022 2:22 PM CDT Renal Medicine Second visit today Seen on dialysis AVF working well 17 g needles at 200 ml/min Next 12/05/22 Will ask General Surgery to remove PD catheter Recent Labs Lab 12/03/22 1114 12/03/22 0731 12/03/22 0656 NA -- -- 127* POTASSIUM -- -- 5.0 CHLORIDE -- -- 90* CO2 -- -- 27 ANIONGAP -- -- 10 GLC 155* < > 86 BUN -- -- 52.9* CR -- -- 4.90* GFRESTIMATED -- -- 9* PASTOR -- -- 8.6* < > = values in this interval not displayed. Recent Labs Lab 12/03/22 0656 12/02/22 0639 12/01/22 0735 11/30/22 0723 CO2 27 27 26 25 Norma Wood [facility] [phone] * Paxton Adorno MD - 12/03/2022 1:50 PM CDT [facility] Infectious Disease Progress Note Assessment and Plan: Date of Admission: 11/28/2022 Date of Consult (When I saw the patient): 11/30/22 Assessment & Plan Malachi Marr is a 77 year old who was admitted on 11/28/2022. Impression: 1 77-year-old female, recent COVID-19 and hospitalization, treated with remdesivir, nowwith some worsened respiratory symptoms by primarily more significantly increased abdominal pain, has peritonitis with peritoneal dialysis catheter related infection with corynebacterium stratum 2 COVID-19, relatively mild not even on oxygen currently, also multiply colonized sputum with gram-negative rods but little to suggest active pneumonia 3 end-stage renal disease on peritoneal dialysis REC 1 we will hold off on further major COVID-19 treatment and would not treat the gram-negative rods in the sputum watch respiratory status and reconsider if worsening respiratory flanagan 2 vancomycin on board both systemically with the levels somewhat high and in the peritoneal fluid called the lab will run sensitivities on the corynebacterium which has unpredictable sensitivities, looks like plan might be to switch to hemodialysis if that is the case we should remove the peritoneal dialysis catheter now, discussed with nephrology Obviously if we remove the catheter will need to treat systemically, probably roughly 2 weeks of vancomycin IV, will change and alter antibiotics based on the final sensitivities Interval History: no new complaints and doing well; no cp, sob, n/v/d, or abd pain. Does not feel particularly well today overall but no major fevers, abdominal pains resolved, no significant respiratory symptoms. Culture with corynebacterium probably not significant is the coag negative staph, no sensitivities being done on the corynebacterium but if called the lab and will now do them Medications: - MEDICATION INSTRUCTIONS for Dialysis Patients - Does not apply See Admin Instructions amLODIPine 10 mg Oral BID aspirin 81 mg Oral Daily calcium acetate 667 mg Oral TID w/meals carboxymethylcellulose PF 1 drop Left Eye 4x Daily cetirizine 10 mg Oral Daily cloNIDine 0.2 mg Oral QAM And cloNIDine 0.2 mg Oral QPM erythromycin Left Eye 4x Daily fluconazole 100 mg Oral Daily furosemide 40 mg Intravenous Daily [Held by provider] glipiZIDE 20 mg Oral Daily before supper heparin ANTICOAGULANT 5,000 Units Subcutaneous Q12H insulin aspart 1-7 Units Subcutaneous TID AC insulin aspart 1-5 Units Subcutaneous At Bedtime [Held by provider] insulin glargine 3 Units Subcutaneous QAM AC labetalol 300 mg Oral TID nicotine 1 patch Transdermal Daily And nicotine Transdermal Q8H ROXI - MEDICATION INSTRUCTIONS - Does not apply Once oxyCODONE 10 mg Oral At Bedtime polyethylene glycol 17 g Oral Q3 Days repaglinide 1 mg Oral TID AC sennosides 1 tablet Oral Q3 Days sodium chloride 0.9% 250 mL Intravenous Once in dialysis/CRRT sodium chloride 0.9% 300 mL Hemodialysis Machine Once sorbitol 30 mL Oral Q3 Days vancomycin place salcedo - receiving intermittent dosing 1 each Intravenous See Admin Instructions Physical Exam: Blood pressure 132/51, pulse 60, temperature 97.9 ??F (36.6 ??C), temperature source Temporal, resp. rate 18, height 1.549 m (5' 1), weight 42.4 kg (93 lb 6.4 oz), SpO2 98%. Wt Readings from Last 2 Encounters: 12/03/22 42.4 kg (93 lb 6.4 oz) 11/24/22 42 kg (92 lb 9.5 oz) Vital Signs with Ranges Temp: [96.9 ??F (36.1 ??C)-98.3 ??F (36.8 ??C)] 97.9 ??F (36.6 ??C) Pulse: [56-70] 60 Resp: [14-24] 18 BP: (126-143)/(43-63) 132/51 SpO2: [95 %-99 %] 98 % Constitutional: Awake, alert, cooperative, no apparent distress Lungs: Clear to auscultation bilaterally, no crackles or wheezing Cardiovascular: Regular rate and rhythm, normal S1 and S2, and no murmur noted Abdomen: Normal bowel sounds, soft, non-tender less distended Skin: No rashes, no cyanosis, no edema Other: Data: All microbiology laboratory data reviewed. Recent Labs Lab Test 12/03/2256 12/02/22 0639 12/01/22 0735 WBC 9.1 11.9* 11.8* HGB 9.2* 9.9* 9.5* HCT 25.5* 28.1* 27.8* MCV 99 95 96 PLT 293 279 280 Recent Labs Lab Test 12/03/2265512/02/2239 12/01/22 0735 CR 4.90* 4.88* 4.78* No lab results found. No lab results found. Invalid input(s): UC * Jonnathan Wood MD - 12/03/2022 1:07 PM CDT Renal Medicine Progress Note Malachi Marr Age: [age] year old Date of : 1945 Date of Admission: 11/28/2022 Hospital LOS: 4 Assessment/Plan: 77 y.o woman with ESRD and COVID 19 infection. # ESRD on PD: She does only 2 cycles? -Dr. Gabriel Mena at [facility] PD clinic ([phone]-[place]) -fill volume of 1300 ml x 2 cycles -5 hrs # Peritonitis: PD fluid is growing Corynebacterium striatum -ID is on board # COVID-19 infection: -manage per primary team # CKD-MBD: -Phoslo # Anemia: Hgb is at target. # HTN: -Norvasc -clonidine -Labetabol # Hyperkalemia: -normalized with dialysis Patient expresses desire to transition to Intermittent HD No further PD AVF in place (not used for several years) HD today Out patient [facility] (MWF) IV vancomycin PD catheter out if AVF OK Interval History: UF last night 750 ml Vanco level noted Patient wants to change to HD Reviewed with her 2 separate occasions Spoke with her PD nurse and Dr. Mena No CP or SOB ROS: GENERAL: NAD, No fever,chills CV: NEGATIVE for chest pain, palpitations EXT: no change edema ROS otherwise negative Medications and Allergies: Reviewed Physical Exam: Vitals were reviewed Temp: 97.9 ??F (36.6 ??C) Temp src: Temporal BP: 132/51 Pulse: 60 Resp: 18 SpO2: 98 % O2 Device: None (Room air) Wt Readings from Last 4 Encounters: 12/03/22 42.4 kg (93 lb 6.4 oz) 11/24/22 42 kg (92 lb 9.5 oz) I/O last 3 completed shifts: In: 900 [P.O.:900] Out: 1000 [Urine:1000] Vitals: 11/28/22 2327 11/30/22 0744 12/01/22 1219 12/02/22 0452 Weight: 44.1 kg (97 lb 3.6 oz) 43.5 kg (95 lb 12.8 oz) 44 kg (97 lb) 41.7 kg (91 lb 14.9 oz) 12/03/22 0728 Weight: 42.4 kg (93 lb 6.4 oz) GENERAL: awake, alert, follows HEENT: NC/AT, PERRLA, EOMI, non icteric, pharynx moist without lesion RESP: clear anteriorly CV: RRR, normal S1 S2 ABDOMEN: soft, nontender, no HSM or masses and bowel sounds normal MS: no clubbing, cyanosis SKIN: clear without significant rashes or lesions NEURO: speech normal and cranial nerves 2-12 intact PSYCH: affect normal/bright EXT: warm, no edema Data: Recent Labs Lab 12/03/22 1114 12/03/22 0801 12/03/22 0731 12/03/22 0656 12/02/22 0806 12/02/22 0639 12/01/22 2225 12/01/22 2156 12/01/22 1242 12/01/22 0735 11/30/22 1203 11/30/22 0723 NA -- -- -- 127* -- 126* -- -- -- 127* -- 123* POTASSIUM -- -- -- 5.0 -- 5.0 -- 4.9 -- 5.7* < > 5.8* CHLORIDE -- -- -- 90* -- 90* -- -- -- 93* -- 90* CO2 -- -- -- 27 -- 27 -- -- -- 26 -- 25 ANIONGAP -- -- -- 10 -- 9 -- -- -- 8 -- 8 GLC 155* 87 66* 86 < > 88 < > -- < > 120* < > 71 BUN -- -- -- 52.9* -- 53.4* -- -- -- 56.8* -- 58.9* CR -- -- -- 4.90* -- 4.88* -- -- -- 4.78* -- 4.78* GFRESTIMATED -- -- -- 9* -- 9* -- -- -- 9* -- 9* PASTOR -- -- -- 8.6* -- 8.6* -- -- -- 8.5* -- 8.5* < > = values in this interval not displayed. Recent Labs Lab 12/03/22 0656 12/02/22 0639 12/01/2235 11/30/2272211/29/2262711/29/22212 CR 4.90* 4.88* 4.78* 4.78* 4.54* 4.58* Recent Labs Lab 11/30/22722 ALBUMIN 2.5* Recent Labs Lab 12/03/22 0656 12/02/22 0639 12/01/2235 11/30/22722 HGB 9.2* 9.9* 9.5* 10.0* Vancomycin Date Value Ref Range Status 12/03/2022 27.6 () ug/mL Final Comment: Traditional Dosing Therapeutic Range: Trough 10-15 ug/mL Peak 20-40 ug/mL Critical: Greater than 25.0 ug/mL Jonnathan Wood MD [facility] - Nephrology [phone] * Nidia Yanez, DO - 12/03/2022 8:57 AM CDT [facility] Medicine Progress Note - Hospitalist Service Date of Admission: 11/28/2022 Assessment & Plan Malachi Daly is a 77-year-old female with a past medical history significant for end-stage renal disease on peritoneal dialysis, type 2 diabetes, hypertension, chronic pain, tobacco use disorder, COPD, recent COVID infection and hospitalization is status post IV remdesivir who presented to [facility] with complaint of ongoing weakness and shortness of breath eventually transferred to [facility] as patient is on peritoneal dialysis. Intra-abdominal infection secondary to Corynebacterium stratum Patient reported some abdominal discomfort. Peritoneal fluid consistent with infection and culture showed Corynebacterium stratum. - ID following - Plan for PD catheter removal - Has been receiving IP vancomycin - Continue IV vancomycin - Likely will need ~2 weeks of IV vancomycin, plan dependent on final sensitivities Hyperkalemia, resolved Hyponatremia ESRD on previously on PD, initiating HD 12/03 Mild hyperK 12/01. Resolved with lokelma and extra dose of lasix. PD runs have been uneventful but only 2 exchanges for 5 hrs. HypoNa likely 2/2 poor oral intake. Encouraged high protein, liberal salt diet. With the above infection, PD catheter needs to be removed. Patient no longer interested in PD. Has LUE AVF. Started HD 12/03. -Nephrology consulted for dialysis. SILVER HFpEF with EF of 75 to 80% Grade 1 or early diastolic dysfunction per echocardiogram Reported that her breathing is fine until she exerts herself. No prior diagnosis of heart failure. proBNP is elevated above 2000. Echocardiogram shows ejection fraction of 75 to 80% with hyperdynamicleft ventricle. Noted to have bibasilar crackles on exam as well. Cardiology consulted, appreciate recs. Feels like her symptoms are more likely related to COVID than heart failure. -Holding [employer] lasix while transitioning to HD COVID-19 infection Gram-negative bacilli, Stenotrophomonas maltophilia, gram-positive cocci in sputum Patient was recently hospitalized at [facility] from 11/24- due to COVID-19 infection. She reported 1 week history of shortness of breath prior to hospitalization and tested positive on 11/24. She received IV remdesivir. She was not hypoxic hence did not get dexamethasone. Her chestx-ray 11/25 was without any focal findings. She was discharged to home however she continued to feel short of breath hence presented to the [facility] ED. She underwent CT angiogram which did not show any PE per H&P. No records available in [facility]. She is currently on room air. She reported mainly difficulty breathing with exertion. She denied any fever, chills, diarrhea, myalgias. Noted to have above microorganisms on sputum Gram stain, culture is in process. ID consulted, appreciate recs. No need to treat these microorganisms for now as it seems less likely that they are causing any pulmonary infection. -Status post IV remdesivir -Patient is not hypoxic, no significant changes on the chest x-ray, will hold off systemic steroid for now. -Refer to outpatient [facility] pulmonary rehab at the time of discharge Tobacco use disorder -Encourage cessation Type II DM Prior to admission on glipizide and repaglinide. Started on 3U glargine for hyperglycemia. Had low of 66 on 12/03. - Hold glargine - sliding scale insulin Hypertension -Resume prior to admission clonidine, labetalol. Chronic pain on chronic opioid -Resume prior to admission oxycodone 10 mg at bedtime Ophthalmologic issues -Resume prior to admission ophthalmic ointments Diet: Combination Diet Renal Diet (dialysis) DVT Prophylaxis: Heparin SQ Jones Catheter: Not present Lines: None Cardiac Monitoring: None Code Status: Full Code Clinically Significant Risk Factors # Hyponatremia: Lowest Na = 126 mmol/L in last 2 days, will monitor as appropriate # Hypoalbuminemia: Lowest albumin = 2.5 g/dL at 11/30/2022 7:23 AM, will monitor as appropriate # Cachexia: Estimated body mass index is 17.65 kg/m?? as calculated from the following: Height as of this encounter: 1.549 m (5' 1). Weight as of this encounter: 42.4 kg (93 lb 6.4 oz). # Financial/Environmental Concerns: Disposition Plan Expected Discharge Date: 12/06/2022 Discharge Comments: pending PT eval and antibiotic plan Nidia Yanez DO Hospitalist Service [facility] Securely message with [employer] (more info) Text page via [facility] Paging/Directory Interval History No acute overnight events. Doing better today. Still having ongoing cough, but dyspnea is improving. No new symptoms. ID discussed need to remove PD cathter, which she is on board with. She does not want to continue PD, would like to try HD. Physical Exam Vital Signs: Temp: 98.2 ??F (36.8 ??C) Temp src: Axillary BP: (!) 166/75 Pulse: 75 Resp: 16 SpO2: 96 % O2 Device: None (Room air) Weight: 93 lbs 6.4 oz Constitutional: Awake, alert, no distress, and cooperative Cardiovascular: Regular rate and rhythm, normal S1 and S2, no S3 or S4, and no murmur noted Respiratory: No increased work of breathing, good air exchange, clear to auscultation bilaterally, mild wheezing Gastrointestinal: Abdomen soft, non-tender, non-distended. BS normal. No masses, organomegaly Access: LUE AVF with palpable thrill and audible bruit Medical Decision Making 45 MINUTES SPENT BY ME on the date of service doing chart review, history, exam, documentation & further activities per the note. Data I have personally reviewed the following data over the past 24 hrs: 9.1 \ 9.2 (L) / 293 127 (L) 90 (L) 52.9 (H) / 155 (H) 5.0 27 4.90 (H) \ * Arsenio Carty RT - 12/03/2022 6:08 AM CDT [facility] RCAT Date: 12/03/22 Admission Dx: Abd pain Pulmonary History COPD Home Nebulizer/MDI Use: Both nebulizer and MDI use at home. Home Oxygen: None Acuity Level (RCAT flow sheet): 4 Aerosol Therapy initiated: As needed Duoneb Pulmonary Hygiene initiated: NA Volume Expansion initiated: IS Current Oxygen Requirements: RA Current SpO2: 97% Re-evaluation date: 12/10/22 Patient Education: Completed See RT Assessments flow sheet for patient assessment scoring and Acuity Level Details. Aresnio Carty, RT on 12/03/2022 at 6:10 AM * Michele Chaudhary MD - 12/02/2022 4:42 PM CDT I reviewed her chart. Continue PD 120 mg of vancomycin in 6 liters 2.5% dextrose solution. IV abx per ID. Cont Diflucan for fungal prophylaxis. Hyponatremia due to poor oral intake. Pt should be encouraged to eat a high protein and liberal salty diet. * Catalina Jenkins RN - 12/02/2022 2:29 PM CDT Cycler set up per protocol and per treatment orders Results from previous treatment: Effluent color and clarity: yellow, clear Total UF: 617ml Initial Drain: 480ml Avg Dwell: 2:07 Lost Dwell: 12 minutes Cycler Serial Number: [id number] Total Treatment Volume: 2600mL Total treatment time: 5 hrs Fill Volume: 1300ml Last Fill Volume:0ml Heater ba.5% 6000mL with 120mg vanco; Lot #: [id number]; Expiration Date: 09/2024 Number of cycles including final fill: 2 Dwell Time: 123 minutes Last Fill Volume: 0ml Initial Drain Alarm: 0ml PD orders reviewed with Patient procedure and ESRD teaching done and questions answered. Cycler ready for hook-up. Report given to: Laura Welsh RN [facility] consent form signed yes. * Nidia Yanez DO - 12/02/2022 8:35 AM CDT [facility] Medicine Progress Note - Hospitalist Service Date of Admission: 11/28/2022 Assessment & Plan Malachi Daly is a 77-year-old female with a past medical history significant for end-stage renal disease on peritoneal dialysis, type 2 diabetes, hypertension, chronic pain, tobacco use disorder, COPD, recent COVID infection and hospitalization is status post IV remdesivir who presented to [facility] ED with complaint of ongoing weakness and shortness of breath eventually transferred to [facility] as patient is on peritoneal dialysis. Intra-abdominal infection secondary to Corynebacterium stratum Patient reported some abdominal discomfort. Peritoneal fluid consistent with infection and culture showed Corynebacterium stratum. - Follow-up peritoneal fluid cultures, sensitivities - Continue IV ceftriaxone 2 g daily - Continue IV and IP vancomycin - ID following Hyperkalemia, resolved ESRD on peritoneal dialysis Mild hyperK 12/01. Resolved with lokelma and extra dose of lasix. PD runs have been uneventful but only 2 exchanges for 5 hrs. -Nephrology consulted for peritoneal dialysis. -IV lasix as below SILVER HFpEF with EF of 75 to 80% Grade 1 or early diastolic dysfunction per echocardiogram Reported that her breathing is fine until she exerts herself. No prior diagnosis of heart failure. proBNP is elevated above 2000. Echocardiogram shows ejection fraction of 75 to 80% with hyperdynamicleft ventricle. Noted to have bibasilar crackles on exam as well. Cardiology consulted, appreciate recs. Feels like her symptoms are more likely related to COVID than heart failure. -Continue IV Lasix 40 mg daily, likely transition to PO tomorrow COVID-19 infection Gram-negative bacilli, Stenotrophomonas maltophilia, gram-positive cocci in sputum Patient was recently hospitalized at [facility] from 11/24- due to COVID-19 infection. She reported 1 week history of shortness of breath prior to hospitalization and tested positive on 11/24. She received IV remdesivir. She was not hypoxic hence did not get dexamethasone. Her chestx-ray 11/25 was without any focal findings. She was discharged to home however she continued to feel short of breath hence presented to the [facility] ED. She underwent CT angiogram which did not show any PE per H&P. No records available in [facility]. She is currently on room air. She reported mainly difficulty breathing with exertion. She denied any fever, chills, diarrhea, myalgias. Noted to have above microorganisms on sputum Gram stain, culture is in process. ID consulted, appreciate recs. No need to treat these microorganisms for now as it seems less likely that they are causing any pulmonary infection. -Status post IV remdesivir -Patient is not hypoxic, no significant changes on the chest x-ray, will hold off systemic steroid for now. -Refer to outpatient [facility] pulmonary rehab at the time of discharge Tobacco use disorder -Encourage cessation Type II DM Prior to admission on glipizide and repaglinide. -Hold oral hypoglycemic agent for now -Continue insulin sliding scale -Start carb coverage Hypertension -Resume prior to admission clonidine, labetalol. Chronic pain on chronic opioid -Resume prior to admission oxycodone 10 mg at bedtime Ophthalmologic issues -Resume prior to admission ophthalmic ointments Diet: Combination Diet Renal Diet (dialysis) DVT Prophylaxis: Heparin SQ Jones Catheter: Not present Lines: None Cardiac Monitoring: None Code Status: Full Code Clinically Significant Risk Factors # Hyperkalemia: Highest K = 5.7 mmol/L in last 2 days, will monitor as appropriate # Hyponatremia: Lowest Na = 126 mmol/L in last 2 days, will monitor as appropriate # Hypoalbuminemia: Lowest albumin = 2.5 g/dL at 11/30/2022 7:23 AM, will monitor as appropriate # Cachexia: Estimated body mass index is 17.37 kg/m?? as calculated from the following: Height as of this encounter: 1.549 m (5' 1). Weight as of this encounter: 41.7 kg (91 lb 14.9 oz)., PRESENT ON ADMISSION # Financial/Environmental Concerns: Disposition Plan Expected Discharge Date: 12/03/2022 Discharge Comments: from Home Daily Peritoneal Dialysis Nidia Yanez DO Hospitalist Service [facility] Securely message with [employer] (more info) Text page via [facility] Paging/Directory Interval History No acute overnight events. Doing better today, still having cough and body aches. More energy. Has somewhat of an appetite. No acute concerns. Physical Exam Vital Signs: Temp: 97.6 ??F (36.4 ??C) Temp src: Temporal BP: (!) 147/51 Pulse: 66 Resp: 18 SpO2: 97 % O2 Device: None (Room air) Weight: 91 lbs 14.91 oz Constitutional: Awake, alert, no distress, and cooperative Cardiovascular: Regular rate and rhythm, normal S1 and S2, no S3 or S4, and no murmur noted Respiratory: No increased work of breathing, good air exchange, congestion with some mild crackles Gastrointestinal: Abdomen soft, non-tender, non-distended. BS normal. No masses, organomegaly Medical Decision Making 40 MINUTES SPENT BY ME on the date of service doing chart review, history, exam, documentation & further activities per the note. Data I have personally reviewed the following data over the past 24 hrs: 11.9 (H) \ 9.9 (L) / 279 126 (L) 90 (L) 53.4 (H) / 169 (H) 5.0 27 4.88 (H) \ * Nidia Yanez DO - 12/01/2022 2:40 PM CDT [facility] Medicine Progress Note - Hospitalist Service Date of Admission: 11/28/2022 Assessment & Plan Malachi Daly is a 77-year-old female with a past medical history significant for end-stage renal disease on peritoneal dialysis, type 2 diabetes, hypertension, chronic pain, tobacco use disorder, COPD, recent COVID infection and hospitalization is status post IV remdesivir who presented to [facility] with complaint of ongoing weakness and shortness of breath eventually transferred to [facility] as patient is on peritoneal dialysis. Intra-abdominal infection secondary to Corynebacterium stratum Patient reported some abdominal discomfort. Peritoneal fluid consistent with infection and culture showed Corynebacterium stratum. - Follow-up peritoneal fluid cultures, sensitivities - Continue IV ceftriaxone 2 g daily - Continue IV and IP vancomycin - ID following Hyperkalemia ESRD on peritoneal dialysis Mild hyperK past 2 mornings. PD runs have been uneventful but only 2 exchanges for 5 hrs. -Nephrology consulted for peritoneal dialysis. - IV lasix 80 1x today - Lokelma 10 grams 1x - Repeat K at 2200 SILVER HFpEF with EF of 75 to 80% Grade 1 or early diastolic dysfunction per echocardiogram Reported that her breathing is fine until she exerts herself. No prior diagnosis of heart failure. proBNP is elevated above 2000. Echocardiogram shows ejection fraction of 75 to 80% with hyperdynamicleft ventricle. Noted to have bibasilar crackles on exam as well. Cardiology consulted, appreciate recs. Feels like her symptoms are more likely related to COVID than heart failure. -Continue IV Lasix 40 mg daily - Got additional dose of 80 IV for hyperK COVID-19 infection Gram-negative bacilli, Stenotrophomonas maltophilia, gram-positive cocci in sputum Patient was recently hospitalized at [facility] from 11/24- due to COVID-19 infection. She reported 1 week history of shortness of breath prior to hospitalization and tested positive on 11/24. She received IV remdesivir. She was not hypoxic hence did not get dexamethasone. Her chestx-ray 11/25 was without any focal findings. She was discharged to home however she continued to feel short of breath hence presented to the [facility] ED. She underwent CT angiogram which did not show any PE per H&P. No records available in [facility]. She is currently on room air. She reported mainly difficulty breathing with exertion. She denied any fever, chills, diarrhea, myalgias. Noted to have above microorganisms on sputum Gram stain, culture is in process. ID consulted, appreciate recs. No need to treat these microorganisms for now as it seems less likely that they are causing any pulmonary infection. -Status post IV remdesivir -Patient is not hypoxic, no significant changes on the chest x-ray, will hold off systemic steroid for now. -Refer to outpatient [facility] pulmonary rehab at the time of discharge Tobacco use disorder -Encourage cessation Type II DM Prior to admission on glipizide and repaglinide. -Hold oral hypoglycemic agent for now -Continue insulin sliding scale -Start carb coverage Hypertension -Resume prior to admission clonidine, labetalol. Chronic pain on chronic opioid -Resume prior to admission oxycodone 10 mg at bedtime Ophthalmologic issues -Resume prior to admission ophthalmic ointments Diet: Combination Diet Renal Diet (dialysis) DVT Prophylaxis: Heparin SQ Jones Catheter: Not present Lines: None Cardiac Monitoring: None Code Status: Full Code Clinically Significant Risk Factors # Hyperkalemia: Highest K = 5.8 mmol/L in last 2 days, will monitor as appropriate # Hyponatremia: Lowest Na = 123 mmol/L in last 2 days, will monitor as appropriate # Hypoalbuminemia: Lowest albumin = 2.5 g/dL at 11/30/2022 7:23 AM, will monitor as appropriate # Financial/Environmental Concerns: Disposition Plan Expected Discharge Date: 12/03/2022 Discharge Comments: from Home Daily Peritoneal Dialysis Nidia Yanez DO Hospitalist Service [facility] Securely message with [employer] (more info) Text page via [facility] Paging/Directory Interval History No acute overnight events. Patient does not feel well today - achy, tired, coughing. No fevers, abdominal pain, diarrhea, or other new concerns. 10 point review of system is otherwise negative Physical Exam Vital Signs: Temp: 97.1 ??F (36.2 ??C) Temp src: Temporal BP: (!) 148/54 Pulse: 61 Resp: 18 SpO2: 96 % O2 Device: None (Room air) Weight: 97 lbs 0 oz Constitutional: Awake, alert, appears uncomfortable but no distress, and cooperative Cardiovascular: Regular rate [...] & further activities per the note. Data PAST 24 HR DATA REVIEWED * Morgan Giles MD - 12/01/2022 2:39 PM CDT Images from the original note were not included. CHART CHECK (no charge) Date 12/01/2022 Labs / Imaging / Vital signs / cultures reviewed BP 136/47 (BP Location: Right arm, Patient Position: Semi-Thorpe's, Cuff Size: Adult Small) Pulse63 Temp 98 ??F (36.7 ??C) (Temporal) Resp 19 Ht 1.549 m (5' 1) Wt 44 kg (97 lb) SpO2 97% BMI 18.33 kg/m?? Temp (48hrs), Av.9 ??F (36.6 ??C), Min:97.3 ??F (36.3 ??C), Max:98.3 ??F (36.8 ??C) Lab Results Component Value Date WBC 11.8 12/01/2022 Creatinine Date Value Ref Range Status 12/01/2022 4.78 (H) 0.51 - 0.95 mg/dL Final Assess No change Plan Cont antibiotic May or may not be able to salvage PD cath Morgan Giles MD covering for [facility] * Michele Chaudhary MD - 12/01/2022 11:45 AM CDT Renal Medicine Progress Note Assessment/Plan: 77 y.o woman with ESRD and COVID 19 infection. # ESRD on PD: She does only 2 cycles? -Dr. Gabriel Mena at [facility] PD clinic ([phone]-[place]) -fill volume of 1300 ml x 2 cycles -5 hrs # Peritonitis: PD fluid is growing Corynebacterium striatum -ID is on board # COVID-19 infection: -manage per primary team # CKD-MBD: -Phoslo # Anemia: Hgb is at target. # HTN: -Norvasc -clonidine -Labetabol # Hyperkalemia: W -She is doing PD. Plan: # Will put 20 mg of vancomycin in each liter of PD fluid. Would continue IV as she is only doing 2 exchanges for 5 hrs of PD. # Cont diflucan for fungal prophylaxis # Lokelma 10 grams x 1 # Will give Lasix 80 mg IV x 1. She has good residual urine volume. Interval History: She does not feel well today. She feels short of breath when she walks. She says she did not exchanges last night. I can't see how much the amount of UF. PD fluid nucleated cells from 419 to 11. Repeat gram stain neg. Medications and Allergies: amLODIPine 10 mg Oral BID aspirin 81 mg Oral Daily calcium acetate 667 mg Oral TID w/meals carboxymethylcellulose PF 1 drop Left Eye 4x Daily cetirizine 10 mg Oral Daily cloNIDine 0.2 mg Oral QAM And cloNIDine 0.3 mg Oral QPM erythromycin Left Eye 4x Daily fluconazole 100 mg Oral Daily furosemide 40 mg Intravenous Daily [Held by provider] glipiZIDE 20 mg Oral Daily before supper heparin ANTICOAGULANT 5,000 Units Subcutaneous Q12H insulin aspart Subcutaneous Daily with breakfast insulin aspart Subcutaneous Daily with lunch insulin aspart Subcutaneous Daily with supper insulin aspart 1-7 Units Subcutaneous TID AC insulin aspart 1-5 Units Subcutaneous At Bedtime labetalol 300 mg Oral TID nicotine 1 patch Transdermal Daily And nicotine Transdermal Q8H ROXI oxyCODONE 10 mg Oral At Bedtime polyethylene glycol 17 g Oral Q3 Days repaglinide 1 mg Oral TID AC sennosides 1 tablet Oral Q3 Days sorbitol 30 mL Oral Q3 Days vancomycin place salcedo - receiving intermittent dosing 1 each Intravenous See Admin Instructions Allergies Allergen Reactions Fish Oil Rash Lisinopril-Hydrochlorothiazide Rash Niacin Rash Physical Exam: Vitals were reviewed , Blood pressure (!) 163/69, pulse 71, temperature 98.2 ??F (36.8 ??C), temperature source Temporal, resp. rate 14, height 1.549 m (5' 1), weight 43.5 kg (95 lb 12.8 oz), SpO2 95%. Wt Readings from Last 3 Encounters: 11/30/22 43.5 kg (95 lb 12.8 oz) 11/24/22 42 kg (92 lb 9.5 oz) Intake/Output Summary (Last 24 hours) at 12/01/2022 1145 Last data filed at 12/01/2022 1000 Gross per 24 hour Intake 440 ml Output 767 ml Net -327 ml GENERAL APPEARANCE: NAD. Sitting in the chair and eating lunch HEENT: Eyes/ears/nose/neck grossly normal RESP: Not needing supplemental O2. ABDOMEN: distended. Soft. NT. EXTREMITIES/SKIN: no rashes/lesions on observed skin; No edema NEURO: Awake, alert and conversing normally. Data: CBC RESULTS: Recent Labs Lab 12/01/22 0735 11/30/22 0723 11/29/223 11/24/222208 WBC 11.8* 9.5 8.9 6.9 RBC 2.91* 3.11* 3.61* 4.16 HGB 9.5* 10.0* 10.9* 12.2 HCT 27.8* 29.9* 33.5* 37.5 PLT 280 267 258 271 Basic Metabolic Panel: Recent Labs Lab 12/01/22 0735 11/30/22 2153 11/30/22 1926 11/30/22 1755 11/30/22 1414 11/30/22 1345 11/30/22 1203 11/30/22 0723 11/29/22 0750 11/29/22 0628 11/29/22 0301 11/29/22 0213 11/26/22 0908 11/26/22 0619 11/25/22 0054 11/24/229 NA 127* -- -- -- -- -- -- 123* -- 129* -- 128* -- 132* -- 128* POTASSIUM 5.7* -- 5.2 -- -- 5.3 -- 5.8* -- 5.2 -- 5.6* -- 5.1 -- 5.2 CHLORIDE 93* -- -- -- -- -- -- 90* -- 92* -- 93* -- 95* -- 91* CO2 26 -- -- -- -- -- -- 25 -- 28 -- 24 -- 25 -- 22 BUN 56.8* -- -- -- -- -- -- 58.9* -- 67.5* -- 63.2* -- 73.8* -- 78.6* CR 4.78* -- -- -- -- -- -- 4.78* -- 4.54* -- 4.58* -- 4.39* -- 4.73* GLC 120* 218* -- 132* 256* -- 294* 71 < > 66* 66* < > 93 < > 110* < > 301* PASTOR 8.5* -- -- -- -- -- -- 8.5* -- 8.5* -- 8.7* -- 8.8 -- 9.3 < > = values in this interval not displayed. INRNo lab results found in last 7 days. Attestation: I have reviewed today's relevant vital signs, notes, medications, labs and imaging. Michele Chaudhary MD [facility] - Nephrology Office phone :[phone] Pager: [phone] * Monika Jones RN - 12/01/2022 9:05 AM CDT Cycler set up per protocol and per treatment orders Results from previous treatment: 11/30/22 treatment Effluent color and clarity: not charted Total UF: 566 Initial Drain: 31 Avg Dwell: 131 Lost Dwell: 4 Cycler Serial Number: [id number] Total Treatment Volume: 2600 mL Total treatment time: 5 hrs Fill Volume: 1300 ml Last Fill Volume:0 ml Heater ba.5% 6000mL; Lot #: [id number]; Expiration Date: Oct 05 With 120mg Vancomycin added. Number of cycles including final fill: 2 Dwell Time: 2:13 minutes Last Fill Volume: 0ml Initial Drain Alarm: 0ml PD orders reviewed with Patient procedure and ESRD teaching done and questions answered. Cycler ready for hook-up. Report given to: SUSANA Obrien consent form signed: Yes * Deloris Welsh RN - 12/01/2022 8:58 AM CDT 0858: paged Dr. Yanez critical lab draw. vanco level is 39.2 notified at 0856 from a 0735 draw. . Associated attestation - Nidia Yanez DO - 12/01/2022 9:07 AM CDT Physician Attestation I agree with the information in this note. Nidia Yanez DO * Marlyn Bass RN - 12/01/2022 2:21 AM CDT PD was de-accessed at 2-45. Dressing was off upon arrival to her room. Area was cleansed and new dressing applied. Tolerated well. * Marlyn Bass RN - 11/30/2022 11:34 PM CDT PD was de-accessed at 2325. Patient tolerated well. * Catalina Jenkins RN - 11/30/2022 7:07 PM CDT Pt completed CCPD treatment during the day, however machine was turned off and run values were lost. IP antibiotics started at 1905 per the CCPD cycler. Total volume: 2000ml 1.5% dextrose with 2g vancomycin Fill volume: 1000ml Total treatment time: 6.5 hours Dwell time: 3 hours No last fill Please call 3rd floor chargeback analyst to unhook patient when machine reads End of Therapy. * Rohini Bradford MD - 11/30/2022 4:24 PM CDT [facility] Medicine Progress Note - Hospitalist Service Date of Admission: 11/28/2022 Assessment & Plan Malachi Daly is a 77-year-old female with a past medical history significant for end-stage renal disease on peritoneal dialysis, type 2 diabetes, hypertension, chronic pain, tobacco use disorder, COPD, recent COVID infection and hospitalization is status post IV remdesivir who presented to [facility] with complaint of ongoing weakness and shortness of breath eventually transferred to [facility] as patient is on peritoneal dialysis. Intra-abdominal infection secondary to Corynebacterium stratum Patient reported some abdominal discomfort. She is on peritoneal dialysis hence at risk for gettingintra-abdominal infection. Her Pro-Pastor is mildly elevated at 0.6. No leukocytosis fever or chills. No tenderness on the abdominal exam. Reported some abdominal discomfort. Peritoneal fluid culture showed Corynebacterium stratum. ID consulted, appreciate recs. -Follow-up peritoneal fluid cultures, sensitivities - Continue IV ceftriaxone 2 g daily - Start IV vancomycin -ID following SILVER HFpEF with EF of 75 to 80% Grade 1 or early diastolic dysfunction per echocardiogram Reported that her breathing is fine until she exerts herself. No prior diagnosis of heart failure. proBNP is elevated above 2000. Echocardiogram shows ejection fraction of 75 to 80% with hyperdynamicleft ventricle. Noted to have bibasilar crackles on exam as well. Cardiology consulted, appreciate recs. Feels like her symptoms are more likely related to COVID than heart failure. -Continue IV Lasix 40 mg daily while inpatient COVID-19 infection Gram-negative bacilli, Stenotrophomonas maltophilia, gram-positive cocci in sputum Patient was recently hospitalized at [facility] from 11/24- due to COVID-19 infection. She reported 1 week history of shortness of breath prior to hospitalization and tested positive on 11/24. She received IV remdesivir. She was not hypoxic hence did not get dexamethasone. Her chestx-ray 11/25 was without any focal findings. She was discharged to home however she continued to feel short of breath hence presented to the [facility] ED. she underwent CT angiogram which did not show any PE per H&P. No records available in [facility]. She is currently on room air. She reported mainly difficulty breathing with exertion. She denied any fever, chills, diarrhea, myalgias. Noted to have above microorganisms on sputum Gram stain, culture is in process. ID consulted, appreciate recs. No need to treat these microorganisms for now as it seems less likely that they are causing any pulmonary infection. -Status post IV remdesivir -Patient is not hypoxic, no significant changes on the chest x-ray, will hold off systemic steroid for now. -Refer to outpatient [facility] pulmonary rehab at the time of discharge ESRD on peritoneal dialysis -Nephrology consulted for peritoneal dialysis. Tobacco use disorder -Encourage cessation Type II DM Prior to admission on glipizide and repaglinide. -Hold oral hypoglycemic agent for now -Continue insulin sliding scale -Start carb coverage Hypertension -Resume prior to admission clonidine, labetalol. Chronic pain on chronic opioid -Resume prior to admission oxycodone 10 mg at bedtime Ophthalmologic issues -Resume prior to admission ophthalmic ointments Diet: Combination Diet Renal Diet (dialysis) DVT Prophylaxis: Heparin SQ Jones Catheter: Not present Lines: None Cardiac Monitoring: None Code Status: Full Code Clinically Significant Risk Factors # Hyperkalemia: Highest K = 5.8 mmol/L in last 2 days, will monitor as appropriate # Hyponatremia: Lowest Na = 123 mmol/L in last 2 days, will monitor as appropriate # Hypoalbuminemia: Lowest albumin = 2.5 g/dL at 11/30/2022 7:23 AM, will monitor as appropriate # Financial/Environmental Concerns: Disposition Plan Expected Discharge Date: 11/30/2022 Discharge Comments: from Home Daily Peritoneal Dialysis Rohini Bradford MD Hospitalist Service [facility] Securely message with [employer] (more info) Text page via [facility] Paging/Directory Interval History Patient refused dialysis overnight as it interferes with her sleep. Peritoneal dialysis was startedthis morning. Patient reported feeling fine until she starts exerting herself then she feels short of breath. No fever or chills reported. No significant abdominal pain, tenderness, discomfort. 10 point review of system is otherwise negative Physical Exam Vital Signs: Temp: 97.6 ??F (36.4 ??C) Temp src: Temporal BP: (!) 158/82 Pulse: 70 Resp: 18 SpO2: 93 % O2 Device: None (Room air) Weight: 95 lbs 12.8 oz Gen - AAO x 3 in NAD Lungs -equal air entry bilaterally, bibasilar crackles Heart - RR,S1+S2 nml, no m/g/r. Abd -soft, nontender, nondistended Ext - no edema. Neuro -alert and oriented x3, no focal deficit Medical Decision Making 40 MINUTES SPENT BY ME on the date of service doing chart review, history, exam, documentation & further activities per the note. Data PAST 24 HR DATA REVIEWED * Frankie Cary, RT - 11/30/2022 2:24 PM CDT Images from the original note were not included. [facility] Respiratory Care Note [facility] RCAT Date:11/30/2022 Admission Dx: COVID+ Pulmonary History: COPD Home Nebulizer/MDI Use: Albuterol Q4 prn, Duoneb Q6 prn Home Oxygen: None Acuity Level (RCAT flow sheet): 4 Aerosol Therapy initiated: Albuterol MDI Q 2 prn, Duoneb Q6 prn, Albuterol Q2 prn Pulmonary Hygiene initiated: Cough and Deep breathing techniques TID Volume Expansion initiated: IS TID Current Oxygen Requirements: RA Current SpO2: 97% Re-evaluation date: 12/03/2022 Patient Education: Education was performed with the patient in regards to indications/benefits and possible side effects of bronchodilators. Will continue to do education with patient. See RT Assessments flow sheet for patient assessment scoring and Acuity Level Details. Vital signs: Temp: 97.5 ??F (36.4 ??C) Temp src: Temporal BP: (!) 143/49 Pulse: 64 Resp: 16 SpO2: 97 % O2 Device: None (Room air) Height: 154.9 cm (5' 1) Weight: 43.5 kg (95 lb 12.8 oz) Estimated body mass index is 18.1 kg/m?? as calculated from the following: Height as of this encounter: 1.549 m (5' 1). Weight as of this encounter: 43.5 kg (95 lb 12.8 oz). Past Medical History: Diagnosis Date Diabetes mellitus, type 2 (H) ESRD (end stage renal disease) on dialysis (H) Past Surgical History: Procedure Laterality Date PERITONEAL CATHETER INSERTION No family history on file. Social History Tobacco Use Smoking status: Not on file Smokeless tobacco: Not on file Substance Use Topics Alcohol use: Not on file Study Result Narrative & Impression EXAM: XR CHEST PORT 1 VIEW LOCATION: [facility] DATE: 11/29/2022 INDICATION: shortness of breath COMPARISON: Chest radiograph 11/25/2022. IMPRESSION: Negative chest. Prior to Admission Medications Prescriptions Last Dose Informant Patient Reported? Taking? albuterol (PROVENTIL) (2.5 MG/3ML) 0.083% neb solution Yes No Sig: Take 2.5 mg by nebulization every 4 hours as needed for shortness of breath amLODIPine (NORVASC) 10 MG tablet Yes No Sig: Take 10 mg by mouth 2 times daily aspirin 81 MG EC tablet Yes No Sig: Take 81 mg by mouth daily calcium acetate (PHOSLO) 667 MG CAPS capsule Yes No Sig: Take 667 mg by mouth 3 times daily (with meals) carboxymethylcellulose PF (REFRESH PLUS) 0.5 % ophthalmic solution Yes No Sig: Place 1 drop Into the left eye 4 times daily cetirizine (ZYRTEC) 10 MG tablet Yes No Sig: Take 10 mg by mouth daily cloNIDine (CATAPRES) 0.1 MG tablet Yes No Sig: Take 2 tablets (0.2 mg) by mouth every morning and take 3 tablets by mouth (0.3 mg) every evening erythromycin (ROMYCIN) 5 MG/GM ophthalmic ointment Yes No Sig: Place Into the left eye 4 times daily furosemide (LASIX) 40 MG tablet Yes No Sig: Take 40 mg by mouth daily glipiZIDE (GLUCOTROL XL) 10 MG 24 hr tablet Yes No Sig: Take 20 mg by mouth daily (before supper) ipratropium - albuterol 0.5 mg/2.5 mg/3 mL (DUONEB) 0.5-2.5 (3) MG/3ML neb solution Yes No Sig: Inhale 3 mLs into the lungs every 6 hours as needed for shortness of breath labetalol (NORMODYNE) 300 MG tablet Yes No Sig: Take 300 mg by mouth 3 times daily oamdxfhv-gtjnygdzy-nlcCGQAPuzmnp (MAXITROL) 3.5-80221-6.1 ophthalmic ointment Yes No Sig: Place 0.25 inches Into the left eye 4 times daily nicotine (NICODERM CQ) 7 MG/24HR 24 hr patch Yes No Sig: Place 1 patch onto the skin every 24 hours oxyCODONE (ROXICODONE) 5 MG tablet Yes No Sig: Take 10 mg by mouth at bedtime polyethylene glycol (MIRALAX) 17 g packet Yes No Sig: Take 1 packet by mouth every 3 days repaglinide (PRANDIN) 1 MG tablet Yes No Sig: Take 1 tablet by mouth 3 times daily (before meals) senna (SENOKOT) 8.6 MG tablet Yes No Sig: Take 1 tablet by mouth every 3 days sorbitol 70 % SOLN solution Yes No Sig: Take 30 mLs by mouth every 3 days triamcinolone (KENALOG) 0.1 % external cream Yes No Sig: Apply topically daily as needed for irritation Facility-Administered Medications: None Frankie Cary RT [facility] 11/30/2022 * Michele Chaudhary MD - 11/30/2022 1:59 PM CDT Renal Medicine Progress Note Assessment/Plan: 77 y.o woman with ESRD and COVID 19 infection. # ESRD on PD: She does only 2 cycles? -Dr. Gabriel Mena at [facility] PD clinic ([phone]-[place]) -fill volume of 1300 ml x 2 cycles -5 hrs # Peritonitis: PD fluid is growing Corynebacterium striatum -ID is on board # COVID-19 infection: -manage per primary team # CKD-MBD: -Phoslo # Anemia: Hgb is at target. # HTN: -Norvasc -clonidine -Labetabol # Hyperkalemia: W -She is doing PD. Plan: # I discussed the case with Dr. Adorno. She does not only 5 hrs of PD, so we will do both IV vancomycin and IP pending sensitivity. # Start diflucan 100 mg daily for # K recheck ordered for 1899 # [facility] [place] in [place] and their on-call PD team I discussed the case with Dr. Adorno. Interval History: She refused PD last night. She says she does PD in the afternoon. She only does 5 hrs and two cycles. She denies abdominal pain today. No abdominal pain on palpation. She is currently connected to the cycler. Overall, she feels better. Medications and Allergies: amLODIPine 10 mg Oral BID aspirin 81 mg Oral Daily calcium acetate 667 mg Oral TID w/meals carboxymethylcellulose PF 1 drop Left Eye 4x Daily cetirizine 10 mg Oral Daily cloNIDine 0.2 mg Oral QAM And cloNIDine 0.3 mg Oral QPM erythromycin Left Eye 4x Daily [Held by provider] glipiZIDE 20 mg Oral Daily before supper heparin ANTICOAGULANT 5,000 Units Subcutaneous Q12H [START ON 12/01/2022] insulin aspart Subcutaneous Daily with breakfast insulin aspart Subcutaneous Daily with lunch insulin aspart Subcutaneous Daily with supper insulin aspart 1-7 Units Subcutaneous TID AC insulin aspart 1-5 Units Subcutaneous At Bedtime labetalol 300 mg Oral TID nicotine 1 patch Transdermal Daily And nicotine Transdermal Q8H ROXI oxyCODONE 10 mg Oral At Bedtime polyethylene glycol 17 g Oral Q3 Days repaglinide 1 mg Oral TID AC sennosides 1 tablet Oral Q3 Days sorbitol 30 mL Oral Q3 Days Allergies Allergen Reactions Fish Oil Rash Lisinopril-Hydrochlorothiazide Rash Niacin Rash Physical Exam: Vitals were reviewed , Blood pressure (!) 143/49, pulse 64, temperature 97.5 ??F (36.4 ??C), temperature source Temporal, resp. rate 16, height 1.549 m (5' 1), weight 43.5 kg (95 lb 12.8 oz), SpO2 97%. Wt Readings from Last 3 Encounters: 11/30/22 43.5 kg (95 lb 12.8 oz) 11/24/22 42 kg (92 lb 9.5 oz) Intake/Output Summary (Last 24 hours) at 11/30/2022 1359 Last data filed at 11/30/2022 0802 Gross per 24 hour Intake 780 ml Output -- Net 780 ml GENERAL APPEARANCE: NAD. Sitting in the chair and eating lunch HEENT: Eyes/ears/nose/neck grossly normal RESP: Not needing supplemental O2. ABDOMEN: distended. Soft. NT. EXTREMITIES/SKIN: no rashes/lesions on observed skin; No edema NEURO: Awake, alert and conversing normally. Data: CBC RESULTS: Recent Labs Lab 11/30/22 0723 11/29/2221211/24/222208 WBC 9.5 8.9 6.9 RBC 3.11* 3.61* 4.16 HGB 10.0* 10.9* 12.2 HCT 29.9* 33.5* 37.5 PLT 267 258 271 Basic Metabolic Panel: Recent Labs Lab 11/30/22 1203 11/30/22 0723 11/30/22 0701 11/30/22 0212 11/29/22 2153 11/29/22 1710 11/29/22 0750 11/29/22 0628 11/29/22 0301 11/29/22 0213 11/26/22 0908 11/26/22 0619 11/25/22 0054 11/24/222208 NA -- 123* -- -- -- -- -- 129* -- 128* -- 132* -- 128* POTASSIUM -- 5.8* -- -- -- -- -- 5.2 -- 5.6* -- 5.1 -- 5.2 CHLORIDE -- 90* -- -- -- -- -- 92* -- 93* -- 95* -- 91* CO2 -- 25 -- -- -- -- -- 28 -- 24 -- 25 -- 22 BUN -- 58.9* -- -- -- -- -- 67.5* -- 63.2* -- 73.8* -- 78.6* CR -- 4.78* -- -- -- -- -- 4.54* -- 4.58* -- 4.39* -- 4.73* GLC 294* 71 88 109* 233* 156* < > 66* 66* < > 93 < > 110* < > 301* PASTOR -- 8.5* -- -- -- -- -- 8.5* -- 8.7* -- 8.8 -- 9.3 < > = values in this interval not displayed. INRNo lab results found in last 7 days. Attestation: I have reviewed today's relevant vital signs, notes, medications, labs and imaging. Michele Chaudhary MD [facility] - Nephrology Office phone :[phone] Pager: [phone] * Rohini Bradford MD - 11/29/2022 3:49 PM CDT [facility] Medicine Progress Note - Hospitalist Service Date of Admission: 11/28/2022 Assessment & Plan Malachi Daly is a 77-year-old female with a past medical history significant for end-stage renal disease on peritoneal dialysis, type 2 diabetes, hypertension, chronic pain, tobacco use disorder, COPD, recent COVID infection and hospitalization is status post IV remdesivir who presented to [facility] ED with complaint of ongoing weakness and shortness of breath eventually transferred to [facility] as patient is on peritoneal dialysis. SILVER HFpEF with EF of 75 to 80% Grade 1 or early diastolic dysfunction per echocardiogram Reported that her breathing is fine until she exerts herself. No prior diagnosis of heart failure. proBNP is elevated above 2000. Echocardiogram shows ejection fraction of 75 to 80% with hyperdynamicleft ventricle. Noted to have bibasilar crackles on exam as well. -Chest x-ray -IV Lasix 40 mg once, patient is on peritoneal dialysis but is still makes some urine -Cardiology consultation for further evaluation of HFpEF COVID-19 infection Patient was recently hospitalized at [facility] from 11/24- due to COVID-19 infection. She reported 1 week history of shortness of breath prior to hospitalization and tested positive on 11/24. She received IV remdesivir. She was not hypoxic hence did not get dexamethasone. Her chestx-ray 11/25 was without any focal findings. She was discharged to home however she continued to feel short of breath hence presented to the [facility] ED. she underwent CT angiogram which did not show any PE per H&P. No records available in [facility]. She is currently on room air. She reported mainly difficulty breathing with exertion. She denied any fever, chills, diarrhea, myalgias. she was transferred to [facility] mainly because of the unavailability of peritoneal dialysis at [facility]. -Status post IV remdesivir -Patient is almost 10 days out since symptoms started also not hypoxic hence dexamethasone is not indicated Concern for intra-abdominal infection Patient reported some abdominal discomfort. She is on peritoneal dialysis hence at risk for gettingintra-abdominal infection. Her Pro-Pastor is mildly elevated at 0.6. No leukocytosis fever or chills. No tenderness on the abdominal exam. -Peritoneal dialysis fluid analysis -Empirically started on IV ceftriaxone by nephrology ESRD on peritoneal dialysis -Nephrology consulted for peritoneal dialysis. Tobacco use disorder -Encourage cessation Type II DM Prior to admission on glipizide and repaglinide. -Hold oral hypoglycemic agent for now -Start insulin sliding scale Hypertension -Resume prior to admission clonidine, labetalol. Chronic pain on chronic opioid -Resume prior to admission oxycodone 10 mg at bedtime Ophthalmologic issues -Resume prior to admission ophthalmic ointments Diet: Combination Diet Renal Diet (dialysis) DVT Prophylaxis: Heparin SQ Jones Catheter: Not present Lines: None Cardiac Monitoring: ACTIVE order. Indication: Chest pain/ ACS rule out (24 hours) Code Status: Full Code Clinically Significant Risk Factors Present on Admission # Hyperkalemia: Highest K = 5.6 mmol/L in last 2 days, will monitor as appropriate # Hyponatremia: Lowest Na = 128 mmol/L in last 2 days, will monitor as appropriate # Drug Induced Platelet Defect: home medication list includes an antiplatelet medication # Hypertension: Home medication list includes antihypertensive(s) # Financial/Environmental Concerns: Disposition Plan Expected Discharge Date: 11/30/2022 Discharge Comments: from Home Daily Peritoneal Dialysis Rohini Bradford MD Hospitalist Service [facility] Securely message with [employer] (more info) Text page via [facility] Paging/Directory Interval History No acute events overnight. Reported that her breathing is fine when she is sitting however she feels winded when she exerts herself. She did not notice any peripheral edema. Stated that her family members also got COVID prior to her. Reported feeling nauseous and bloated. No viet abdominal pain fever or chills 10 point review of system is otherwise negative Physical Exam Vital Signs: Temp: 97.8 ??F (36.6 ??C) Temp src: Temporal BP: (!) 149/54 Pulse: 69 Resp: 16 SpO2: 97 % O2 Device: None (Room air) Weight: 97 lbs 3.57 oz Gen - AAO x 3 in NAD Lungs -equal air entry bilaterally, bibasilar crackles Heart - RR,S1+S2 nml, no m/g/r. Abd -tympanic, NT, + BS, + PD catheter site C/D/I. Ext - no edema. Neuro -alert and oriented x3, no focal deficit Medical Decision Making 40 MINUTES SPENT BY ME on the date of service doing chart review, history, exam, documentation & further activities per the note. Data PAST 24 HR DATA REVIEWED * Aranza Self RN - 11/29/2022 3:28 PM CDT Cycler set up per protocol and per treatment orders Cycler Serial Number: [id number] Total Treatment Volume: 2600mL Total treatment time: 5 hrs Fill Volume: 1300ml Last Fill Volume:0ml Heater ba.5% 6000mL; Lot #: [id number]; Expiration Date: 10/05 Cassette Lot: [id number], exp. Number of cycles including final fill: 2 Dwell Time: 2:13 minutes Last Fill Volume: 0ml Initial Drain Alarm: 0ml PD orders reviewed with Patient procedure and ESRD teaching done and questions answered. [facility] [place] transfer set adapter/extension applied and PD effluent and swab culture, gram stain and cell count samples sent per [employer] orders. New dressing applied and antibiotic ointment on order for next dressing change. Cycler ready for hook-up. Report given to: Jen Sainz RN and Fabricio Arriaga RN [employer] consent form signed 2022 documented in this encounter H&P Notes * Arsenio Prasad MD - 12/04/2022 6:47 AM CDT I have reviewed the surgical (or preoperative) H&P that is linked to this encounter, and examined the patient. There are no significant changes Clinical Conditions Present on Arrival: Clinically Significant Risk Factors Present on Admission Source Note - Paxton Adorno MD - 11/30/2022 3:31 PM CDT [facility] Infectious Disease Consultation Date of Admission: 11/28/2022 Date of Consult (When I saw the patient): 11/30/22 Assessment & Plan Malachi Marr is a 77 year old who was admitted on 11/28/2022. Impression: 1 77-year-old female, recent COVID-19 and hospitalization, treated with remdesivir, nowwith some worsened respiratory symptoms by primarily more significantly increased abdominal pain, has peritonitis with peritoneal dialysis catheter related infection with corynebacterium stratum 2 COVID-19, relatively mild not even on oxygen currently, also multiply colonized sputum with gram-negative rods but little to suggest active pneumonia 3 end-stage renal disease on peritoneal dialysis REC 1 we will hold off on further major COVID-19 treatment and would not treat the gram-negative rods in the sputum watch respiratory status and reconsider if worsening respiratory flanagan 2 on ceftriaxone, also got this and dialysis catheter, add systemic Vanco currently and then Vanco intraperitoneally with the PD intervention tomorrow, await sensitivities on the corynebacterium stratum, attempted to treat with catheter in place primarily with treatment through PD catheter but which oral agent depending on sensitivities which are unpredictable for this organism Paxton Adorno MD Reason for Consult Reason for consult: I was asked to evaluate this patient for peritoneal dialysis catheter related infection. Primary Care Physician MAN ADAN Chief Complaint abdominal pain and shortness of breath History is obtained from the patient and medical records History of Present Illness Malachi Marr is a 77 year old female who presents with underlying end-stage renal disease gets peritoneal dialysis. No major historical complications from this. She presented recently with respiratory symptoms at outside hospital and found to have COVID-19. It was never particularly severe got treatment with remdesivir. Respiratory symptoms somewhat worsened and more notably not feeling well in a general sense and started having some degree of upper abdominal pain. At presentation sputum with multiple gram-negative rods, slight infiltrates present but of note now off oxygen. In addition peritoneal fluid Gram stain positive got a dose of ceftriaxone intraperitoneally and systemically andnow cultures growing Corynebacterium stratum Past Medical History I have reviewed this patient's medical history and updated it with pertinent information if needed. Past Medical History: Diagnosis Date Diabetes mellitus, type 2 (H) ESRD (end stage renal disease) on dialysis (H) Past Surgical History I have reviewed this patient's surgical history and updated it with pertinent information if needed. Past Surgical History: Procedure Laterality Date PERITONEAL CATHETER INSERTION Prior to Admission Medications Prior to Admission Medications Prescriptions Last Dose Informant Patient Reported? Taking? albuterol (PROVENTIL) (2.5 MG/3ML) 0.083% neb solution Unknown at prn Self Yes Yes Sig: Take 2.5 mg by nebulization every 4 hours as needed for shortness of breath amLODIPine (NORVASC) 10 MG tablet 11/28/2022 at am Self Yes Yes Sig: Take 10 mg by mouth 2 times daily aspirin 81 MG EC tablet 11/28/2022 at am Self Yes Yes Sig: Take 81 mg by mouth daily calcium acetate (PHOSLO) 667 MG CAPS capsule 11/28/2022 at am Self Yes Yes Sig: Take 667 mg by mouth 3 times daily (with meals) carboxymethylcellulose PF (REFRESH PLUS) 0.5 % ophthalmic solution 11/28/2022 at am Self Yes Yes Sig: Place 1 drop Into the left eye 4 times daily cetirizine (ZYRTEC) 10 MG tablet 11/28/2022 at am Self Yes Yes Sig: Take 10 mg by mouth daily cloNIDine (CATAPRES) 0.1 MG tablet 11/28/2022 at am Self Yes Yes Sig: Take 2 tablets (0.2 mg) by mouth every morning and take 3 tablets by mouth (0.3 mg) every evening erythromycin (ROMYCIN) 5 MG/GM ophthalmic ointment 11/28/2022 at am Self Yes Yes Sig: Place Into the left eye 4 times daily furosemide (LASIX) 40 MG tablet 11/28/2022 at am Self Yes Yes Sig: Take 40 mg by mouth daily glipiZIDE (GLUCOTROL XL) 10 MG 24 hr tablet Self Yes Yes Sig: Take 20 mg by mouth daily (before supper) ipratropium - albuterol 0.5 mg/2.5 mg/3 mL (DUONEB) 0.5-2.5 (3) MG/3ML neb solution Unknown at prn Self Yes Yes Sig: Inhale 3 mLs into the lungs every 6 hours as needed for shortness of breath labetalol (NORMODYNE) 300 MG tablet 11/28/2022 at am Self Yes Yes Sig: Take 300 mg by mouth 3 times daily bxdotxon-flmxknwlz-ajdKQSYVqvwbs (MAXITROL) 3.5-43566-4.1 ophthalmic ointment 11/28/2022 at am SelfYes Yes Sig: Place 0.25 inches Into the left eye 4 times daily nicotine (NICODERM CQ) 7 MG/24HR 24 hr patch 11/27/2022 at pm Self Yes Yes Sig: Place 1 patch onto the skin every 24 hours oxyCODONE (ROXICODONE) 5 MG tablet 11/27/2022 at pm Self Yes Yes Sig: Take 10 mg by mouth at bedtime polyethylene glycol (MIRALAX) 17 g packet 11/26/2022 at am Self Yes Yes Sig: Take 1 packet by mouth every 3 days repaglinide (PRANDIN) 1 MG tablet 11/28/2022 at am Self Yes Yes Sig: Take 1 tablet by mouth 3 times daily (before meals) senna (SENOKOT) 8.6 MG tablet 11/26/2022 at am Self Yes Yes Sig: Take 1 tablet by mouth every 3 days sorbitol 70 % SOLN solution 11/26/2022 at am Self Yes Yes Sig: Take 30 mLs by mouth every 3 days triamcinolone (KENALOG) 0.1 % external cream Unknown at prn Self Yes Yes Sig: Apply topically daily as needed for irritation Facility-Administered Medications: None Allergies Allergies Allergen Reactions Fish Oil Rash Lisinopril-Hydrochlorothiazide Rash Niacin Rash Immunization History Immunization History Administered Date(s) Administered COVID-19 Bivalent 12+ (Pfizer) 10/25/2021 COVID-19 Monovalent 18+ (Moderna) 03/11/2020, 04/04/2020, 12/05/2020, 05/17/2021 Social History I have reviewed this patient's social history and updated it with pertinent information if needed. Malachi Marr Family History I have reviewed this patient's family history and updated it with pertinent information if needed. No family history on file. Review of Systems The 10 point Review of Systems is negative Physical Exam Temp: 97.5 ??F (36.4 ??C) Temp src: Temporal BP: (!) 143/49 Pulse: 64 Resp: 16 SpO2: 97 % O2 Device: None (Room air) Vital Signs with Ranges Temp: [97.3 ??F (36.3 ??C)-98.1 ??F (36.7 ??C)] 97.5 ??F (36.4 ??C) Pulse: [63-78] 64 Resp: [16] 16 BP: (143-158)/(46-58) 143/49 SpO2: [95 %-100 %] 97 % 95 lbs 12.8 oz Body mass index is 18.1 kg/m??. GENERAL APPEARANCE: awake alert EYES: Eyes abnormal left NECK: no adenopathy RESP: lungs slight congestion off oxygen O2 sats okay CV: regular rates and rhythm LYMPHATICS: normal ant/post cervical and supraclavicular nodes ABDOMEN: soft, but mildly tender PD catheter site unremarkable MS: extremities normal SKIN: no suspicious lesions or rashes Data All laboratory and imaging data in the past 24 hours reviewed No results for input(s): CULT in the last 168 hours. No lab results found. Invalid input(s): UC All cultures: Recent Labs Lab 11/29/22 1524 11/29/22 0900 11/25/22 1815 CULTURE Culture in progress 3+ Corynebacterium striatum* Culture in progress 2+ Normal wayne 4+ Stenotrophomonas maltophilia* 1+ Lactose fermenting gram negative bacilli* No Growth No anaerobic organisms isolated after 4 days Blood culture: No results found for this or any previous visit. Urine culture: No results found for this or any previous visit. * Stormy Ontiveros MD, - 11/28/2022 11:52 PM CDT [facility] History and Physical - Hospitalist Service Date of Admission: 11/28/2022 Assessment & Plan Malachi Marr is a 77 year old female admitted on 11/28/2022. She PMHx of ESRD on PD, DM2, HTN, chronic pain, tobacco use, COPD who presents as a transfer from [facility]. [facility] to 26 November with COVID 19 pneumonia, it seems she was not hypoxic and did not require any dexamethasone. She was given IV remdesivir. Shewent back to the ER at [facility] on 28 November for weakness and shortness of breath. She was notedto be hyperkalemic at 5.8. She was given insulin, glucose and IV Lasix. She apparently had a CT of the chest which was negative for PE. She had a CT of the abdomen which showed constipation. Unfortunately, I do not have access to the images or results of her tests. She was given 2 DuoNebs. Due to concern about her ability to take care of self she was brought here as [facility] has no ability to perform peritoneal dialysis. On further questioning the patient states that she was tested positive for COVID-19 on Saturday. Her shortness of breath is continued and is worse with exertion. She also endorses some degree of orthopnea. She denies any ankle swelling. She has not had a pain on the left side of her chest which has been constant and sharp since being positive for COVID on Saturday. SOB. - CT chest imaging which was obtained at [facility] ER results and images are pending. However, there was no evidence of PE as per documentation here. -Possibility of heart failure. She has no prior history of heart failure. -We will monitor on telemetry, check BNP and echocardiogram. -I will check a procalcitonin. She does have cough which alternates between yellow sputum and clear. She denies any fevers or chills. -Her chest pain seems atypical for acute coronary syndrome. We will trend her troponins. Echocardiogram as above. 2. End-stage renal disease on peritoneal dialysis. -We will consult nephrology. 3. COVID-19 positive status. -She does not seem to be hypoxic at present. -We will hold off on steroids and remdesivir at present. 4. Type 2 diabetes. -Sliding scale insulin. 5. Hyponatremia. - Likely due to fluid overloaded status. - TTE pending. 6. Hyperkalemia. - will give d50 and insulin along with lokelma. 7. Elevated Troponin. - Doubt ACS, will monitor on tele and trend. - chest pain free at present. Diet: REGULAR. DVT Prophylaxis: Heparin SQ Jones Catheter: Not present Lines: None Cardiac Monitoring: None Code Status: Full Code. Clinically Significant Risk Factors Present on Admission # Drug Induced Platelet Defect: home medication list includes an antiplatelet medication # Hypertension: Home medication list includes antihypertensive(s) # Financial/Environmental Concerns: Disposition Plan Morales Ontiveros MD Hospitalist Service [facility] Securely message with [employer] (more info) Text page via [facility] Paging/Directory Chief Complaint SOB, weakness. History is obtained from the patient History of Present Illness Malachi Marr is a 77 year old female who PMHx of ESRD on PD, DM2, HTN, chronic pain, tobacco use, COPD who presents as a transfer from [facility]. He was recently hospitalized at [facility] between 24 November to 26 November with COVID 19 pneumonia, it seems she was not hypoxic and did not require any dexamethasone. She was given IV remdesivir. She went back to the ER at [facility] on 28 November for weakness and shortness of breath. She was noted to be hyperkalemic at 5.8. She was given insulin, glucose and IV Lasix. She apparently had a CT of the chest which was negative for PE. She had a CT of the abdomen which showed constipation. She was given 2 DuoNebs. Due to c oncern about her ability to take care of self she was brought here as [facility] has no ability to perform peritoneal dialysis. On further questioning the patient states that she was tested positive for COVID-19 on Saturday. Her shortness of breath is continued and is worse with exertion. She also endorses some degree of orthopnea. She denies any ankle swelling. She has not had a pain on the leftside of her chest which has been constant and sharp since being positive for COVID on Saturday. Past Medical History Past Medical History: Diagnosis Date Diabetes mellitus, type 2 (H) ESRD (end stage renal disease) on dialysis (H) Past Surgical History Past Surgical History: Procedure Laterality Date PERITONEAL CATHETER INSERTION Prior to Admission Medications Prior to Admission Medications Prescriptions Last Dose Informant Patient Reported? Taking? albuterol (PROVENTIL) (2.5 MG/3ML) 0.083% neb solution Yes No Sig: Take 2.5 mg by nebulization every 4 hours as needed for shortness of breath amLODIPine (NORVASC) 10 MG tablet Yes No Sig: Take 10 mg by mouth 2 times daily aspirin 81 MG EC tablet Yes No Sig: Take 81 mg by mouth daily calcium acetate (PHOSLO) 667 MG CAPS capsule Yes No Sig: Take 667 mg by mouth 3 times daily (with meals) carboxymethylcellulose PF (REFRESH PLUS) 0.5 % ophthalmic solution Yes No Sig: Place 1 drop Into the left eye 4 times daily cetirizine (ZYRTEC) 10 MG tablet Yes No Sig: Take 10 mg by mouth daily cloNIDine (CATAPRES) 0.1 MG tablet Yes No Sig: Take 2 tablets (0.2 mg) by mouth every morning and take 3 tablets by mouth (0.3 mg) every evening erythromycin (ROMYCIN) 5 MG/GM ophthalmic ointment Yes No Sig: Place Into the left eye 4 times daily furosemide (LASIX) 40 MG tablet Yes No Sig: Take 40 mg by mouth daily glipiZIDE (GLUCOTROL XL) 10 MG 24 hr tablet Yes No Sig: Take 20 mg by mouth daily (before supper) ipratropium - albuterol 0.5 mg/2.5 mg/3 mL (DUONEB) 0.5-2.5 (3) MG/3ML neb solution Yes No Sig: Inhale 3 mLs into the lungs every 6 hours as needed for shortness of breath labetalol (NORMODYNE) 300 MG tablet Yes No Sig: Take 300 mg by mouth 3 times daily ghecivqz-maiiypmep-qcwNIEGBpmfqg (MAXITROL) 3.5-77428-5.1 ophthalmic ointment Yes No Sig: Place 0.25 inches Into the left eye 4 times daily nicotine (NICODERM CQ) 7 MG/24HR 24 hr patch Yes No Sig: Place 1 patch onto the skin every 24 hours oxyCODONE (ROXICODONE) 5 MG tablet Yes No Sig: Take 10 mg by mouth at bedtime polyethylene glycol (MIRALAX) 17 g packet Yes No Sig: Take 1 packet by mouth every 3 days repaglinide (PRANDIN) 1 MG tablet Yes No Sig: Take 1 tablet by mouth 3 times daily (before meals) senna (SENOKOT) 8.6 MG tablet Yes No Sig: Take 1 tablet by mouth every 3 days sorbitol 70 % SOLN solution Yes No Sig: Take 30 mLs by mouth every 3 days triamcinolone (KENALOG) 0.1 % external cream Yes No Sig: Apply topically daily as needed for irritation Facility-Administered Medications: None Review of Systems The 10 point Review of Systems is negative other than noted in the HPI or here. Social History I have reviewed this patient's social history and updated it with pertinent information if needed. Family History Reviewed. Allergies Allergies Allergen Reactions Fish Oil Rash Lisinopril-Hydrochlorothiazide Rash Niacin Rash Physical Exam Vital Signs: Temp: 97.3 ??F (36.3 ??C) Temp src: Oral BP: (!) 155/47 Pulse: 72 Resp: 17 SpO2: 99 % O2 Device: None (Room air) Weight: 97 lbs 3.57 oz Gen - AAO x 3 in NAD, chronically ill appearing. Lungs - + exp wheezing and crackles B. Heart - RR,S1+S2 nml, no m/g/r. Abd - soft, NT, + BS, + PD catheter site C/D/I. Ext - no edema. Neuro - CN II-XII wnl, BURROWS's. EKG - NSR at 63 bpm. Medical Decision Making 80 MINUTES SPENT BY ME on the date of service doing chart review, history, exam, documentation & further activities per the note. Data Imaging results reviewed over the past 24 hrs: No results found for this or any previous visit (from the past 24 hour(s)). documented in this encounter Consult Notes * Olga Guzman RN - 12/06/2022 9:53 AM CDT Care Management Follow Up Length of Stay (days): 7 Expected Discharge Date: 12/06/2022 Concerns to be Addressed: (P) discharge planning, care coordination/care conferences Patient plan of care discussed at interdisciplinary rounds: Yes Anticipated Discharge Disposition: Anticipated Discharge Services: Anticipated Discharge DME: Patient/family educated on Medicare website which has current facility and service quality ratings:NA Education Provided on the Discharge Plan: Patient/Family in Agreement with the Plan: yes Referrals Placed by CM/SW: dialysis Private pay costs discussed: Not applicable Additional Information: Patient is accepted at [facility] for MWF. CM has not been given a chair timeand [facility] does not know. They provided sit number [phone] and CM called. There is no answer and CM left VM to 2 different people at site. In addition, their business hours are MWF. CM called [facility] again. The Director Broadcast spoken to emailed the Regional Directorand senior site manager to obtain the chair time. Hospitalist informed. Addendum 1210 CM spoke with Electric Motor Mechanic who was informed a chair time of 1200, to arrive by 1115. CM call [facility]missions number to see if any one had responded and to inform o Nephrologists time he was informed. They state that is the time if he was informed and no one has been in contact. CM will place time of 1200 with tomorrow arrival of 1115 for first time per [facility] admissions. Jennifer Guzman RN, BSN, CM Inpatient Care Coordination [facility] [phone] * Olga Guzman RN - 12/04/2022 2:02 PM CDTAssociated Order(s): CARE MANAGEMENT / SOCIAL WORK IP CONSULT Care Management Initial Consult General Information Assessment completed with: Malachi Jeffery Type of CM/SW Visit: Initial Assessment Primary Care Provider verified and updated as needed: Yes Readmission within the last 30 days: (P) current reason for admission unrelated to previous admission Reason for Consult: (P) discharge planning, care coordination/care conference Advance Care Planning: Communication Assessment Patient's communication style: (P) spoken language (Mauritanian or Bilingual) Hearing Difficulty or Deaf: no Wear Glasses or Blind: yes (prescription) Cognitive Cognitive/Neuro/Behavioral: WDL Living Environment: People in home: (P) child(danielle), adult (P) Malachi Bonilla and one other son Current living Arrangements: (P) house Able to return to prior arrangements: (P) other (see comments) (TBD) Family/Social Support: Care provided by: (P) self Provides care for: (P) no one Marital Status: (P) Single (P) Children Description of Support System: (P) Involved, Supportive Support Assessment: (P) Adequate social supports, Adequate family and caregiver support Current Resources: Patient receiving home care services: Community Resources: Equipment currently used at home: (P) none Supplies currently used at home: Employment/Financial: Employment Status: Financial Concerns: Does the patient's insurance plan have a [...] to admission patient needed assistance: Dependent ADLs:: (P) Independent, Ambulation-no assistive device Dependent IADLs:: (P) Independent Assesssment of Functional Status: (P) Not at functional baseline, Not at baseline with mobility, Not at baseline with ADL Functioning Additional Information: Patient transferred from [facility] as patient on PD. Patient developed peritonitis from site and it was removed. She is receiving IV antibiotics. Patient was started on HD. Patient is followed by Nephrology, ID, Surgery and the hospitalist. CM met with patient at the bedside. She resides in a house with her 2 sons. She was independent in all ADLS and IADL's. She ambulates without any assistive devices. PT will evaluate tomorrow.Transportation via a friend or her sons. She does not drive. [facility]. Patient will dialyze at [facility]. Addendum 1523 After phone call and gathering the information, the initial paper work was faxed to [facility]. Jennifer Guzman RN, BSN, CM Inpatient Care Coordination [facility] [phone] * Rajan Hernandez MD - 12/04/2022 9:05 AM CDTAssociated Order(s): SURGERY GENERAL IP CONSULT PD catheter removed, see op note from today. Remove wick packing 48 hours post op. * Paxton Adorno MD - 11/30/2022 3:31 PM CDTAssociated Order(s): INFECTIOUS DISEASES IP CONSULT [facility] Infectious Disease Consultation Date of Admission: 11/28/2022 Date of Consult (When I saw the patient): 11/30/22 Assessment & Plan Malachi Marr is a 77 year old who was admitted on 11/28/2022. Impression: 1 77-year-old female, recent COVID-19 and hospitalization, treated with remdesivir, nowwith some worsened respiratory symptoms by primarily more significantly increased abdominal pain, has peritonitis with peritoneal dialysis catheter related infection with corynebacterium stratum 2 COVID-19, relatively mild not even on oxygen currently, also multiply colonized sputum with gram-negative rods but little to suggest active pneumonia 3 end-stage renal disease on peritoneal dialysis REC 1 we will hold off on further major COVID-19 treatment and would not treat the gram-negative rods in the sputum watch respiratory status and reconsider if worsening respiratory flanagan 2 on ceftriaxone, also got this and dialysis catheter, add systemic Vanco currently and then Vanco intraperitoneally with the PD intervention tomorrow, await sensitivities on the corynebacterium stratum, attempted to treat with catheter in place primarily with treatment through PD catheter but which oral agent depending on sensitivities which are unpredictable for this organism Paxton Adorno MD Reason for Consult Reason for consult: I was asked to evaluate this patient for peritoneal dialysis catheter related infection. Primary Care Physician MAN ADAN Chief Complaint abdominal pain and shortness of breath History is obtained from the patient and medical records History of Present Illness Malachi Marr is a 77 year old female who presents with underlying end-stage renal disease gets peritoneal dialysis. No major historical complications from this. She presented recently with respiratory symptoms at outside hospital and found to have COVID-19. It was never particularly severe got treatment with remdesivir. Respiratory symptoms somewhat worsened and more notably not feeling well in a general sense and started having some degree of upper abdominal pain. At presentation sputum with multiple gram-negative rods, slight infiltrates present but of note now off oxygen. In addition peritoneal fluid Gram stain positive got a dose of ceftriaxone intraperitoneally and systemically andnow cultures growing Corynebacterium stratum Past Medical History I have reviewed this patient's medical history and updated it with pertinent information if needed. Past Medical History: Diagnosis Date Diabetes mellitus, type 2 (H) ESRD (end stage renal disease) on dialysis (H) Past Surgical History I have reviewed this patient's surgical history and updated it with pertinent information if needed. Past Surgical History: Procedure Laterality Date PERITONEAL CATHETER INSERTION Prior to Admission Medications Prior to Admission Medications Prescriptions Last Dose Informant Patient Reported? Taking? albuterol (PROVENTIL) (2.5 MG/3ML) 0.083% neb solution Unknown at prn Self Yes Yes Sig: Take 2.5 mg by nebulization every 4 hours as needed for shortness of breath amLODIPine (NORVASC) 10 MG tablet 11/28/2022 at am Self Yes Yes Sig: Take 10 mg by mouth 2 times daily aspirin 81 MG EC tablet 11/28/2022 at am Self Yes Yes Sig: Take 81 mg by mouth daily calcium acetate (PHOSLO) 667 MG CAPS capsule 11/28/2022 at am Self Yes Yes Sig: Take 667 mg by mouth 3 times daily (with meals) carboxymethylcellulose PF (REFRESH PLUS) 0.5 % ophthalmic solution 11/28/2022 at am Self Yes Yes Sig: Place 1 drop Into the left eye 4 times daily cetirizine (ZYRTEC) 10 MG tablet 11/28/2022 at am Self Yes Yes Sig: Take 10 mg by mouth daily cloNIDine (CATAPRES) 0.1 MG tablet 11/28/2022 at am Self Yes Yes Sig: Take 2 tablets (0.2 mg) by mouth every morning and take 3 tablets by mouth (0.3 mg) every evening erythromycin (ROMYCIN) 5 MG/GM ophthalmic ointment 11/28/2022 at am Self Yes Yes Sig: Place Into the left eye 4 times daily furosemide (LASIX) 40 MG tablet 11/28/2022 at am Self Yes Yes Sig: Take 40 mg by mouth daily glipiZIDE (GLUCOTROL XL) 10 MG 24 hr tablet Self Yes Yes Sig: Take 20 mg by mouth daily (before supper) ipratropium - albuterol 0.5 mg/2.5 mg/3 mL (DUONEB) 0.5-2.5 (3) MG/3ML neb solution Unknown at prn Self Yes Yes Sig: Inhale 3 mLs into the lungs every 6 hours as needed for shortness of breath labetalol (NORMODYNE) 300 MG tablet 11/28/2022 at am Self Yes Yes Sig: Take 300 mg by mouth 3 times daily [id number]-[id number] (MAXITROL) 3.5-96632-7.1 ophthalmic ointment 11/28/2022 at am SelfYes Yes Sig: Place 0.25 inches Into the left eye 4 times daily nicotine (NICODERM CQ) 7 MG/24HR 24 hr patch 11/27/2022 at pm Self Yes Yes Sig: Place 1 patch onto the skin every 24 hours oxyCODONE (ROXICODONE) 5 MG tablet 11/27/2022 at pm Self Yes Yes Sig: Take 10 mg by mouth at bedtime polyethylene glycol (MIRALAX) 17 g packet 11/26/2022 at am Self Yes Yes Sig: Take 1 packet by mouth every 3 days repaglinide (PRANDIN) 1 MG tablet 11/28/2022 at am Self Yes Yes Sig: Take 1 tablet by mouth 3 times daily (before meals) senna (SENOKOT) 8.6 MG tablet 11/26/2022 at am Self Yes Yes Sig: Take 1 tablet by mouth every 3 days sorbitol 70 % SOLN solution 11/26/2022 at am Self Yes Yes Sig: Take 30 mLs by mouth every 3 days triamcinolone (KENALOG) 0.1 % external cream Unknown at prn Self Yes Yes Sig: Apply topically daily as needed for irritation Facility-Administered Medications: None Allergies Allergies Allergen Reactions Fish Oil Rash Lisinopril-Hydrochlorothiazide Rash Niacin Rash Immunization History Immunization History Administered Date(s) Administered COVID-19 Bivalent 12+ (Pfizer) 10/25/2021 COVID-19 Monovalent 18+ (Moderna) 03/11/2020, 04/04/2020, 12/05/2020, 05/17/2021 Social History I have reviewed this patient's social history and updated it with pertinent information if needed. Malachi Marr Family History I have reviewed this patient's family history and updated it with pertinent information if needed. No family history on file. Review of Systems The 10 point Review of Systems is negative Physical Exam Temp: 97.5 ??F (36.4 ??C) Temp src: Temporal BP: (!) 143/49 Pulse: 64 Resp: 16 SpO2: 97 % O2 Device: None (Room air) Vital Signs with Ranges Temp: [97.3 ??F (36.3 ??C)-98.1 ??F (36.7 ??C)] 97.5 ??F (36.4 ??C) Pulse: [63-78] 64 Resp: [16] 16 BP: (143-158)/(46-58) 143/49 SpO2: [95 %-100 %] 97 % 95 lbs 12.8 oz Body mass index is 18.1 kg/m??. GENERAL APPEARANCE: awake alert EYES: Eyes abnormal left NECK: no adenopathy RESP: lungs slight congestion off oxygen O2 sats okay CV: regular rates and rhythm LYMPHATICS: normal ant/post cervical and supraclavicular nodes ABDOMEN: soft, but mildly tender PD catheter site unremarkable MS: extremities normal SKIN: no suspicious lesions or rashes Data All laboratory and imaging data in the past 24 hours reviewed No results for input(s): CULT in the last 168 hours. No lab results found. Invalid input(s): UC All cultures: Recent Labs Lab 11/29/22 1524 11/29/22 0900 11/25/22 1815 CULTURE Culture in progress 3+ Corynebacterium striatum* Culture in progress 2+ Normal wayne 4+ Stenotrophomonas maltophilia* 1+ Lactose fermenting gram negative bacilli* No Growth No anaerobic organisms isolated after 4 days Blood culture: No results found for this or any previous visit. Urine culture: No results found for this or any previous visit. * Mynor Pa MD - 11/30/2022 10:11 AM CDTAssociated Order(s): CARDIOLOGY IP CONSULT Cardiology Consultation Malachi Marr Date of : 1945 Age: [age] year old Date of Admission: 11/28/2022 Reason for consult: Shortness of breath Assessment and Plan: Shortness of breath with exertion that only arose after COVID infection Modest troponin N-terminal pro BNP, currently mild grade 1 diastolic dysfunction on echocardiogram. Given that her symptoms really only arose after her COVID infection, it is likely that her dyspnea on exertion is largely attributable to her COVID infection. She has had negative nuclear stress testing in the past 2 years and normal LV function. It is reasonable to consider repeating nuclear stress test as an outpatient with her primary healthsystem in 1 to 2 months if she does not have improvement in her dyspnea. Can optimize her diastolic dysfunction but probably a minor contributor to her overall dyspnea. Control blood pressure with PD solution adjustment and volume status. Continue beta-don. No further recommendations. Follow-up questions. 60 minutes spent reviewing chart, reviewing outside records, reviewing primary data, discussing with patient and postvisit charting. Chief Complaint: No chief complaint on file. History of Present Illness: This patient is a 77 year old female with hypertension, diabetes, end-stage renal on peritoneal dialysis who denied any shortness of breath with exertion until she got COVID recently. Since that time, she has noticed more dyspnea on exertion. She denies any chest discomfort. Troponin is mildly elevated, N-terminal proBNP modestly elevated for age. Echocardiogram with grade1 diastolic dysfunction which is as expected for age and comorbidities. She has had negative nuclear stress testing 2020 at outside institution. Physical Exam: Vitals were reviewed Blood pressure (!) 155/50, pulse 71, temperature 97.3 ??F (36.3 ??C), temperature source Temporal, resp. rate 16, height 1.549 m (5' 1), weight 43.5 kg (95 lb 12.8 oz), SpO2 100%. Temperatures: Current - Temp: 97.3 ??F (36.3 ??C); Max - Temp Av.9 ??F (36.6 ??C) Min: 97.3 ??F (36.3 ??C) Max: 98.1 ??F (36.7 ??C) Respiration range: Resp Av Min: 16 Max: 16 Pulse range: Pulse Av.9 Min: 63 Max: 75 Blood pressure range: Systolic (24hrs), Av , Min:149 , Max:171 ; Diastolic (24hrs), Av, Min:46, Max:61 Pulse oximetry range: SpO2 Av.6 % Min: 95 % Max: 100 % Intake/Output Summary (Last 24 hours) at 11/30/2022 1005 Last data filed at 11/30/2022 0802 Gross per 24 hour Intake 1020 ml Output -- Net 1020 ml Constitutional: awake, alert, cooperative, no apparent distress, and appears stated age Eyes: Left eye scarring Neck: supple, symmetrical, trachea midline, Back: symmetric Musculoskeletal: motor strength is 5 out of 5 all extremities bilaterally Neurologic: Grossly nonfocal Skin: normal skin color, texture, turgor Additional findings: Past Medical History: I have reviewed this patient's past medical history Past Medical History: Diagnosis Date Diabetes mellitus, type 2 (H) ESRD (end stage renal disease) on dialysis (H) Past Surgical History: I have reviewed this patient's past surgical history Past Surgical History: Procedure Laterality Date PERITONEAL CATHETER INSERTION Social History: I have reviewed this patient's social history Social History Tobacco Use Smoking status: Not on file Smokeless tobacco: Not on file Substance Use Topics Alcohol use: Not on file Family History: I have reviewed this patient's family history No family history on file. Allergies: Allergies Allergen Reactions Fish Oil Rash Lisinopril-Hydrochlorothiazide Rash Niacin Rash Medications: I have reviewed this patient's current medications Medications Prior to Admission Medication Sig Dispense Refill Last Dose albuterol (PROVENTIL) (2.5 MG/3ML) 0.083% neb solution Take 2.5 mg by nebulization every 4 hours asneeded for shortness of breath Unknown at prn amLODIPine (NORVASC) 10 MG tablet Take 10 mg by mouth 2 times daily 11/28/2022 at am aspirin 81 MG EC tablet Take 81 mg by mouth daily 11/28/2022 at am calcium acetate (PHOSLO) 667 MG CAPS capsule Take 667 mg by mouth 3 times daily (with meals) 11/28/2022 at am carboxymethylcellulose PF (REFRESH PLUS) 0.5 % ophthalmic solution Place 1 drop Into the left eye 4times daily 11/28/2022 at am cetirizine (ZYRTEC) 10 MG tablet Take 10 mg by mouth daily 11/28/2022 at am cloNIDine (CATAPRES) 0.1 MG tablet Take 2 tablets (0.2 mg) by mouth every morning and take 3 tablets by mouth (0.3 mg) every evening 11/28/2022 at am erythromycin (ROMYCIN) 5 MG/GM ophthalmic ointment Place Into the left eye 4 times daily 11/28/2022t am furosemide (LASIX) 40 MG tablet Take 40 mg by mouth daily 11/28/2022 at am glipiZIDE (GLUCOTROL XL) 10 MG 24 hr tablet Take 20 mg by mouth daily (before supper) ipratropium - albuterol 0.5 mg/2.5 mg/3 mL (DUONEB) 0.5-2.5 (3) MG/3ML neb solution Inhale 3 mLs into the lungs every 6 hours as needed for shortness of breath Unknown at prn labetalol (NORMODYNE) 300 MG tablet Take 300 mg by mouth 3 times daily 11/28/2022 at am [id number] (MAXITROL) 3.5-59422-7.[address] 0.25 inches Into the left eye 4 times daily 11/28/2022 at am nicotine (NICODERM CQ) 7 MG/24HR [address] 1 patch onto the skin every 24 hours 11/27/2022 at pm oxyCODONE (ROXICODONE) 5 MG tablet Take 10 mg by mouth at bedtime 11/27/2022 at pm polyethylene glycol (MIRALAX) 17 g packet Take 1 packet by mouth every 3 days 11/26/2022 at am repaglinide (PRANDIN) 1 MG tablet Take 1 tablet by mouth 3 times daily (before meals) 11/28/2022 atam senna (SENOKOT) 8.6 MG tablet Take 1 tablet by mouth every 3 days 11/26/2022 at am sorbitol 70 % SOLN solution Take 30 mLs by mouth every 3 days 11/26/2022 at am triamcinolone (KENALOG) 0.1 % external cream Apply topically daily as needed for irritation Unknownat prn Current Facility-Administered Medications Ordered in Epic Medication Dose Route Frequency Last Rate Last Admin acetaminophen (TYLENOL) tablet 650 mg 650 mg Oral Q6H PRN 650 mg at 11/30/22 0955 Or acetaminophen (TYLENOL) Suppository 650 mg 650 mg Rectal Q6H PRN albuterol (PROVENTIL HFA/VENTOLIN HFA) inhaler 2 puff Inhalation Q2H PRN albuterol (PROVENTIL) neb solution 2.5 mg 2.5 mg Nebulization Q2H PRN amLODIPine (NORVASC) tablet 10 mg 10 mg Oral BID 10 mg at 11/30/22 0834 aspirin EC tablet 81 mg 81 mg Oral Daily 81 mg at 11/30/22 0835 calcium acetate (PHOSLO) capsule 667 mg 667 mg Oral TID w/meals 667 mg at 11/30/22 0835 carboxymethylcellulose PF (REFRESH PLUS) 0.5 % ophthalmic solution 1 drop 1 drop Left Eye 4x Daily 1 drop at 11/30/22 0841 cetirizine (zyrTEC) tablet 10 mg 10 mg Oral Daily 10 mg at 11/30/22 0835 cloNIDine (CATAPRES) tablet 0.2 mg 0.2 mg Oral QAM 0.2 mg at 11/30/22 0836 And cloNIDine (CATAPRES) tablet 0.3 mg 0.3 mg Oral QPM 0.3 mg at 11/29/222053 glucose gel 15-30 g 15-30 g Oral Q15 Min PRN Or dextrose 10% BOLUS 88 mL 2 mL/kg Intravenous Q15 Min PRN Or glucagon injection 0.5-1 mg 0.5-1 mg Subcutaneous Q15 Min PRN dianeal PD LOW calcium-2.5% dex (calcium 2.5 mEq/L) 2,000 mL PERITONEAL DIALYSATE Dialysis [facility] Supplied PD erythromycin (ROMYCIN) ophthalmic ointment Left Eye 4x Daily Given at 11/30/22 0836 gentamicin (GARAMYCIN) 0.1 % cream Topical Daily PRN [Held by provider] glipiZIDE (GLUCOTROL XL) 24 hr tablet 20 mg 20 mg Oral Daily before supper heparin ANTICOAGULANT injection 5,000 Units 5,000 Units Subcutaneous Q12H 5,000 Units at 11/30/22 0034 HYDROmorphone (DILAUDID) half-tab 1 mg 1 mg Oral TID PRN 1 mg at 11/30/22 0405 insulin aspart (NovoLOG) injection (RAPID ACTING) 1-7 Units Subcutaneous TID AC 1 Units at 9 insulin aspart (NovoLOG) injection (RAPID ACTING) 1-5 Units Subcutaneous At Bedtime 1 Units at 11/29/22 2215 ipratropium - albuterol 0.5 mg/2.5 mg/3 mL (DUONEB) neb solution 3 mL 3 mL Inhalation Q6H PRN labetalol (NORMODYNE) tablet 300 mg 300 mg Oral TID 300 mg at 11/30/22 0834 melatonin tablet 1 mg 1 mg Oral At Bedtime PRN naloxone (NARCAN) injection 0.2 mg 0.2 mg Intravenous Q2 Min PRN Or naloxone (NARCAN) injection 0.4 mg 0.4 mg Intravenous Q2 Min PRN Or naloxone (NARCAN) injection 0.2 mg 0.2 mg Intramuscular Q2 Min PRN Or naloxone (NARCAN) injection 0.4 mg 0.4 mg Intramuscular Q2 Min PRN nicotine (NICODERM CQ) 7 MG/24HR 24 hr patch 1 patch 1 patch Transdermal Daily 1 patch at 11/30/22 [address] Patch [address] Transdermal Q8H ROXI oxyCODONE IR (ROXICODONE) tablet 10 mg 10 mg Oral At Bedtime 10 mg at 11/29/22 2214 polyethylene glycol (MIRALAX) Packet 17 g 17 g Oral Q3 Days 17 g at 11/29/22 1327 repaglinide (PRANDIN) tablet 1 mg 1 mg Oral TID AC sennosides (SENOKOT) tablet 1 tablet 1 tablet Oral Q3 Days 1 tablet at 11/29/22 1327 sorbitol 70 % solution 30 mL 30 mL Oral Q3 Days 30 mL at 11/29/22 1206 No current Epic-ordered outpatient medications on file. Review of Systems: The 10 point Review of Systems is negative other than noted in the HPI Data: All laboratory data reviewed Results for orders placed or performed during the hospital encounter of 11/28/22 (from the past 24 hour(s)) Glucose by meter Result Value Ref Range GLUCOSE BY METER POCT 221 (H) 70 - 99 mg/dL Cell count with differential fluid Narrative The following orders were created for panel order Cell count with differential fluid. Procedure Abnormality Status --------- ------ Cell Count Body Fluid[[id number]] Final result Differential Body Fluid[[id number]] Final result Please view results for these tests on the individual orders. Gram stain Specimen: Peritoneum; Peritoneal Fluid Result Value Ref Range Gram Stain Result 1+ Gram positive bacilli (A) Gram Stain Result 1+ WBC seen (A) Cell Count Body Fluid Result Value Ref Range Color Yellow Colorless, Yellow Clarity Clear Clear Cell Count Fluid Source Peritoneum Total Nucleated Cells 419 /uL Narrative No reference ranges have been established. This result should be interpreted in the context of the patient's clinical condition and compared to simultaneous measurement in the patient's blood. Differential Body Fluid Result Value Ref Range % Neutrophils 21 % % Lymphocytes 8 % % Monocyte/Macrophages 69 % % Lining Cells 2 % Absolute Neutrophils, Body Fluid 88.0 /uL Narrative No reference ranges have been established. This result should be interpreted in the context of the patient's clinical condition and compared to simultaneous measurement in the patient's blood. XR Chest Port 1 View Narrative EXAM: XR CHEST PORT 1 VIEW LOCATION: [facility] DATE: 11/29/2022 INDICATION: shortness of breath COMPARISON: Chest radiograph 11/25/2022. Impression IMPRESSION: Negative chest. Glucose by meter Result Value Ref Range GLUCOSE BY METER POCT 156 (H) 70 - 99 mg/dL Glucose by meter Result Value Ref Range GLUCOSE BY METER POCT 233 (H) 70 - 99 mg/dL Glucose by meter Result Value Ref Range GLUCOSE BY METER POCT 109 (H) 70 - 99 mg/dL Glucose by meter Result Value Ref Range GLUCOSE BY METER POCT 88 70 - 99 mg/dL CBC with platelets Result Value Ref Range WBC Count 9.5 4.0 - 11.0 10e3/uL RBC Count 3.11 (L) 3.80 - 5.20 10e6/uL Hemoglobin 10.0 (L) 11.7 - 15.7 g/dL Hematocrit 29.9 (L) 35.0 - 47.0 % MCV 96 78 - 100 fL MCH 32.2 26.5 - 33.0 pg MCHC 33.4 31.5 - 36.5 g/dL RDW 14.8 10.0 - 15.0 % Platelet Count 267 150 - 450 10e3/uL Comprehensive metabolic panel Result Value Ref Range Sodium 123 (L) 135 - 145 mmol/L Potassium 5.8 (H) 3.4 - 5.3 mmol/L Carbon Dioxide (CO2) 25 22 - 29 mmol/L Anion Gap 8 7 - 15 mmol/L Urea Nitrogen 58.9 (H) 8.0 - 23.0 mg/dL Creatinine 4.78 (H) 0.51 - 0.95 mg/dL GFR Estimate 9 (L) >60 mL/min/1.73m2 Calcium 8.5 (L) 8.8 - 10.2 mg/dL Chloride 90 (L) 98 - 107 mmol/L Glucose 71 70 - 99 mg/dL Alkaline Phosphatase 84 35 - 104 U/L AST 25 0 - 45 U/L ALT 15 0 - 50 U/L Protein Total 5.9 (L) 6.4 - 8.3 g/dL Albumin 2.5 (L) 3.5 - 5.2 g/dL Bilirubin Total <0.2 <=1.2 mg/dL Extra Blue Top Tube (LAB USE ONLY) Result Value Ref Range Hold Specimen JIC Extra Red Top Tube (LAB USE ONLY) Result Value Ref Range Hold Specimen JIC No results found for: CHOL No results found for: HDL No results found for: LDL No results found for: TRIG No results found for: CHOLHDLRATIO No results found for: TSH EKG results: Echocardiology: Cardiac stress testing: Cardiac angiography: Clinically Significant Risk Factors # Hyperkalemia: Highest K = 5.8 mmol/L in last 2 days, will monitor as appropriate # Hyponatremia: Lowest Na = 123 mmol/L in last 2 days, will monitor as appropriate # Hypoalbuminemia: Lowest albumin = 2.5 g/dL at 11/30/2022 7:23 AM, will monitor as appropriate # Financial/Environmental Concerns: * Michele Chaudhary MD - 11/29/2022 12:43 PM CDTAssociated Order(s): NEPHROLOGY IP CONSULT RENAL CONSULTATION NOTE REFERRING MD: Stormy Ontiveros MD, MD REASON FOR CONSULTATION: ESRD on PD HPI: 77 y.o woman with ESRD on PD, DM and hypertension, who was admitted for weakness and shortnessof breath. She was hospitalized at [place] from 11/24- for COVID 19 infection. She went back to the [facility] due to worsening weakness and shortness of breath. Per report, CT was negative for PE. Currently, she looks comfortable without needing supplemental O2. Minimal respiratory symptoms from COVID 19 infection. She says she has been on dialysis for years. She says she only does 2 cycles and use only one small green dextrose solution bag. She says she does 5 hrs of PD at night. She says she has some abdominal pain. ROS: A complete review of systems was performed and is negative except as noted above. PMH: Past Medical History: Diagnosis Date Diabetes mellitus, type 2 (H) ESRD (end stage renal disease) on dialysis (H) PSH: Past Surgical History: Procedure Laterality Date PERITONEAL CATHETER INSERTION MEDICATIONS: albuterol 2 puff Inhalation 4x daily amLODIPine 10 mg Oral BID aspirin 81 mg Oral Daily calcium acetate 667 mg Oral TID w/meals carboxymethylcellulose PF 1 drop Left Eye 4x Daily cetirizine 10 mg Oral Daily cloNIDine 0.2 mg Oral QAM And cloNIDine 0.3 mg Oral QPM erythromycin Left Eye 4x Daily glipiZIDE 20 mg Oral Daily before supper heparin ANTICOAGULANT 5,000 Units Subcutaneous Q12H insulin aspart 1-7 Units Subcutaneous TID AC insulin aspart 1-5 Units Subcutaneous At Bedtime labetalol 300 mg Oral TID nicotine 1 patch Transdermal Daily And nicotine Transdermal Q8H ROXI oxyCODONE 10 mg Oral At Bedtime polyethylene glycol 17 g Oral Q3 Days repaglinide 1 mg Oral TID AC sennosides 1 tablet Oral Q3 Days sorbitol 30 mL Oral Q3 Days ALLERGIES: Allergies as of 11/28/2022 - Reviewed 11/28/2022 Allergen Reaction Noted Fish oil Rash 11/24/2022 Lisinopril-hydrochlorothiazide Rash 11/24/2022 Niacin Rash 11/24/2022 FH: No family history on file. SH: Social History Socioeconomic History Marital status: Not on file Spouse name: Not on file Number of [...] Not on file PHYSICAL EXAM: BP (!) 171/54 Pulse 71 Temp 98 ??F (36.7 ??C) (Temporal) Resp 16 Ht 1.549 m (5' 1) Wt 44.1 kg (97 lb 3.6 oz) SpO2 96% BMI 18.37 kg/m?? GENERAL: pleasant, alert, NAD HEENT: Normocephalic. No gross abnormalities. Pupils equal. MMM. Dentition is ok. CV: RRR, RESP: Clear bilaterally with good efforts GI: Abdomen distended, soft, some soreness on palpation. Fluid exuding from PD catheter site. MUSCULOSKELETAL: extremities nl - no gross deformities noted SKIN: no suspicious lesions or rashes, dry to touch NEURO: Awake, alert and answering questions appropriately PSYCH: mood good, affect appropriate LYMPH: No palpable ant/post cervical LABS: CBC RESULTS: Recent Labs Lab 11/29/22 0213 11/24/22 2209 WBC 8.9 6.9 RBC 3.61* 4.16 HGB 10.9* 12.2 HCT 33.5* 37.5 PLT 258 271 BMP RESULTS: Recent Labs Lab 11/29/22 1051 11/29/22 0838 11/29/22 0750 11/29/22 0628 11/29/22 0553 11/29/22 0426 11/29/22 0301 11/29/22 0213 11/26/22 0908 11/26/22 0619 11/25/22 0054 11/24/22 2209 NA -- -- -- 129* -- -- -- 128* -- 132* -- 128* POTASSIUM -- -- -- 5.2 -- -- -- 5.6* -- 5.1 -- 5.2 CHLORIDE -- -- -- 92* -- -- -- 93* -- 95* -- 91* CO2 -- -- -- 28 -- -- -- 24 -- 25 -- 22 BUN -- -- -- 67.5* -- -- -- 63.2* -- 73.8* -- 78.6* CR -- -- -- 4.54* -- -- -- 4.58* -- 4.39* -- 4.73* GLC 221* 97 59* 66* 66* 78 254* < > 93 < > 110* < > 301* PASTOR -- -- -- 8.5* -- -- -- 8.7* -- 8.8 -- 9.3 < > = values in this interval not displayed. INRNo lab results found in last 7 days. DIAGNOSTICS: Reviewed A/P: 77 y.o woman with ESRD and COVID 19 infection. # ESRD on PD: She does only 2 cycles? -Dr. Gabriel Mena at [facility] PD clinic -fill volume of 1300 ml x 2 cycles -5 hrs # PD catheter site: There is some fluid exuding from the site. She has some abdominal discomfort. # COVID-19 infection: -manage per primary team # CKD-MBD: -Phoslo # Anemia: Hgb is at target, 10.9. # HTN: -Norvasc -clonidine -Labetabol Plan: # PD order placed for tonight # Rocephin 2 grams IV x 1 dose while awaiting PD fluid and exit fluid analysis results. Michele Chaudhary MD [facility] - Nephrology Office Pager: [phone] documented in this encounter Miscellaneous Notes * Plan of Care - Lina Saeed RN - 12/06/2022 8:15 AM CDT Goal Outcome Evaluation: Alert, oriented x4. Dressing to abd scant old drainage. To remove the packing from wound today. Went to hemodialysis now and then plans to discharge to home later today. Covid recovered. Infrequent productive cough. Room air. Crackles to bases. No edema. Abd is rounded and distended. Declined a new nicotine patch this AM. Up in room steady and independent. Ate breakfast well. 1200 returned from hemodialysis. VSS. Scant drainage to fistula site. Removed the packing from the abd surgical wound from 12/[address] Tang verbal order. 1437 discharge to home. Declined an abd binder. Dressing to abd and HD fistula with scant drainage.Verbalized understanding to dialysis in the AM and follow up appointment and to keep abd clean and dry. Pleasant. No acute variances at d/c. Patient in agreement of discharge plan. [employer] phone number provided. Discharge with cab to home. * Plan of Care - Padmini Manuel RN - 12/06/2022 3:39 AM CDT Goal Outcome Evaluation: A&OX4. LS diminished. VSS. Oxygen 96% on room air. Up independently in the room. Renal diet. Slept well through the night.. Plan is to discharge home today after a run of short dialysis. ContinueMonitoring. * Plan of Care - Marjorie Whiteside RN - 12/05/2022 9:33 PM CDT Goal Outcome Evaluation: Vital signs stable, on Room air, sats 94% Lungs coarse in bases, encouraged inspirometer use. Occasional productive cough. Blood glucose monitored. Dressing intact to previous peritoneal dialysis port site, Scheduled oxycodone for pain control. Pt for dialysis in am. Care plan reviewed with pt. * Plan of Care - Nahomi Sainz RN - 12/05/2022 6:49 PM CDT AOX4. VSS. On RA. Independent in the room. PRN po dilaudid given for generalized pain. Calm and pleasant with cares. Possible discharge home tomorrow. Will continue to provide supportive care. 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 Creatinine for last 3 days 12/03/2022: 6:56 AM Creatinine 4.90 mg/dL 12/04/2022: 7:38 AM Creatinine 3.30 mg/dL 12/05/2022: 7:06 AM Creatinine 4.04 mg/dL Recent Vancomycin Levels (past 3 days) 12/03/2022: 6:56 AM Vancomycin 27.6 ug/mL; 8:17 PM Vancomycin 20.5 ug/mL 12/05/2022: 7:06 AM Vancomycin 27.8 ug/mL Vancomycin IV Administrations (past 72 hours) vancomycin (VANCOCIN) 1,000 mg in 200 mL dextrose intermittent infusion (mg) 1,000 mg New Bag 12/04/22 0012 Nephrotoxins and other renal medications (From now, onward) Start Dose/Rate Route Frequency Ordered Stop 11/30/[address] salcedo - receiving intermittent dosing 1 each Intravenous SEE ADMIN INSTRUCTIONS 11/30/22 1453 Contrast Orders - past 72 hours (72h ago, onward) None Interpretation of levels and current regimen: Vancomycin level is reflective of supratherapeutic level Has serum creatinine changed greater than 50% in last 72 hours: No Urine output: on hemodialysis Renal Function: ESRD on Dialysis Plan: Give no dose today per infectious disease provider Vancomycin monitoring method: trough for hemodialysis Vancomycin therapeutic monitoring goal: 15-20 mg/L Pharmacy will check vancomycin levels as appropriate in 1-3 Days. Serum creatinine levels will be ordered as appropriate with hemodialysis . Lina Leonard RPH * Plan of Care - Margarita Page RN - 12/05/2022 2:29 PM CDT Goal Outcome Evaluation: Plan of Care Reviewed With: patient Overall Patient Progress: improvingOverall Patient Progress: improving Patient is A&Ox4 VSS on RA. PIV, SL. Up independent in the room. HD scheduled for later this afternoon. Abd dressing with packing in place over old PD site, packing and dressing to be removed tomorrow. Critical vanco level this morning of 27.8, MD notified. [facility]S BG checks. Plan to discharge to TCU when dialysis chair is ready. Box managed with tylenol this shift; PRN oxy and dilaudid for nighttime. * Plan of Care - Louise Reeves PT - 12/05/2022 8:57 AM CDT Physical Therapy Discharge Summary Reason for therapy discharge: Discharged to home. With assist from family as needed. Progress towards therapy goal(s). See goals on Care Plan in Epic electronic health record for goal details. Goals met Pt at baseline with all mobility Therapy recommendation(s): No further therapy is recommended. Pt encouraged to continue with daily walking to increase strength and activity tolerance following recent COVID Goal Outcome Evaluation: * Plan of Care - Florence Emery RN - 12/05/2022 5:07 AM CDT Goal Outcome Evaluation: Plan of Care Reviewed With: patient Overall Patient Progress: improving Pt is A&O x 4. Independent. HD Mon, Wed, Sat. Low k+ diet. AC/HS BG checks with sliding scale- BG 262 & 209. Afebrile. VSS on RA. Abdominal dressing with scant amt of serosanguinous drainage.Pain managed with scheduled Tylenol, PRN po Dilaudid and Tylenol. Intermittent IV vanco. Pt states she can't return home due to son having COVID and is requesting TCU. * Plan of Care - Nahomi Sainz RN - 12/04/2022 7:38 PM CDT BP 126/54 (BP Location: Right arm) Pulse 66 Temp 97.8 ??F (36.6 ??C) (Temporal) Resp 18 Ht 1.549 m (5' 1) Wt 42.4 kg (93 lb 6.4 oz) SpO2 95% BMI 17.65 kg/m?? Iso: Special Precautions Diet: Combination Diet Renal Diet (dialysis) Mental Status: Aox4, able to communicate needs well O2: RA CR: 4.90 K: 5.0 PLT: 293 HGB: 9.2 Admitting Diagnosis: Covid (+) Pertinent History: ESRD Living Situation: home with family Pain plan: denies Mobility: assistance, stand-by, gait belt and walker Baseline activity: walker Alarms/Safety: Bed Alarm LDA's: Peripheral Pertinent test results: creatinine 3.30 Consults: PT Abnormals/Pending: Na 129, creatinine Other Cares/Comments: on HD Discharge Disposition: Home with Self care Discharge Time: to be decided PD cath removed today. SILVER. Ok to keep rescue inhaler at bedside per Dr. Yanez and used it onceduring shift. Continues to cough. PRN Tylenol. Off covid precaution. Calm and pleasant with cares. Will continue to provide supportive care. * Op Note - Rajan Hernandez MD - 12/04/2022 8:13 AM CDT General Surgery Operative Note Pre-operative diagnosis: Abdominal infection (H) [K65.9] Post-operative diagnosis: Same Procedure: Removal of peritoneal dialysis catheter. Surgeon: Rajan Hernandez MD Machine Paint Mixer(s): Germania Bradford MS-3 Anesthesia: General Estimated blood loss: 5 cc DESCRIPTION OF PROCEDURE: The patient was taken to the operating room after obtaining informed consent. The abdomen was prepped and draped with betadine in the usual fashion, squaring out most of thecatheter length. I palpated both Kristopher cuffs and made 2cm longitudinal incisions over each. The cuffs were both dissected out from the surrounding subcutaneous tissue; the medial more cuff was imbedded slightly in the anterior rectus sheath. I closed the fascia with an 0 Vicryl suture. The catheter was then pulled through the tract and discarded without issue. 0.5% marcaine was then injected into both sites. The skin was closed with interrupted 4-0 Vicryl subcuticular sutures and Steri-Strips.The catheter opening was then packed with 1/4 inch plain packing gauze. The patient tolerated the procedure well. Sponge and needle counts were correct. Rajan Hernandez MD * Plan of Care - Florence Emery RN - 12/04/2022 2:13 AM CDT Goal Outcome Evaluation: Plan of Care Reviewed With: patient Overall Patient Progress: improving Pt is A&O x 4. Saline locked. Voiding. Up to bedside commode with SBA. SOB with exertion. On RA. Wheezing auscultated throughout. Productive cough. IV vanco. NPO since midnight. Pain managed withPRN Dilaudid. Plan is for PD catheter removal today. Transferred to PACU at 0620. * Plan of Care - Inez Ash RN - 12/04/2022 12:00 AM CDT Pt A&Ox4, Vitals stable on RA. Reporting pain 910 this evening, given scheduled oxycodone. Blood sugar 340, given 3 units of sliding scale. 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 Creatinine for last 3 days 12/01/2022: 7:35 AM Creatinine 4.78 mg/dL 12/02/2022: 6:39 AM Creatinine 4.88 mg/dL 12/03/2022: 6:56 AM Creatinine 4.90 mg/dL Recent Vancomycin Levels (past 3 days) 12/01/2022: 7:35 AM Vancomycin 39.2 ug/mL 12/02/2022: 9:04 AM Vancomycin 29.3 ug/mL 12/03/2022: 6:56 AM Vancomycin 27.6 ug/mL; 8:17 PM Vancomycin 20.5 ug/mL Vancomycin IV Administrations (past 72 hours) dianeal PD LOW calcium-2.5% dex (calcium 2.5 mEq/L) 6,000 mL with vancomycin 120 mg PERITONEAL DIALYSATE () New Bag 12/02/22 1436 dianeal PD LOW calcium-2.5% dex (calcium 2.5 mEq/L) 6,000 mL with vancomycin 120 mg PERITONEAL DIALYSATE () New Bag 12/01/22 1517 Nephrotoxins and other renal medications (From now, onward) Start Dose/Rate Route Frequency Ordered Stop 12/04/22 0000 vancomycin (VANCOCIN) 1,000 mg in 200 mL dextrose intermittent infusion 1,000 mg 200 mL/hr over 1 Hours Intravenous ONCE 12/03/22211411/30/[address] salcedo - receiving intermittent dosing 1 each Intravenous SEE ADMIN INSTRUCTIONS 11/30/22 1453 Contrast Orders - past 72 hours (72h ago, onward) None Interpretation of levels and current regimen: Vancomycin level is reflective of therapeutic level Has serum creatinine changed greater than 50% in last 72 hours: No Urine output: unable to determine Renal Function: Dialysis MWF, last dialysis early today Plan: Redose 1gm tonight given post HD trough level= 20.5, then follow levels Vancomycin monitoring method: Trough (Method 2 = manual dose calculation) Vancomycin therapeutic monitoring goal: 15-20 mg/L Pharmacy will check vancomycin levels as appropriate in 1-3 Days. Serum creatinine levels will be ordered a minimum of twice weekly. Arsenio Mayo RPH * Plan of Care - Nahomi Sainz RN - 12/03/2022 7:20 PM CDT BP 126/54 (BP Location: Right arm) Pulse 66 Temp 97.8 ??F (36.6 ??C) (Temporal) Resp 18 Ht 1.549 m (5' 1) Wt 42.4 kg (93 lb 6.4 oz) SpO2 95% BMI 17.65 kg/m?? Iso: Special Precautions Diet: Combination Diet Renal Diet (dialysis) Mental Status: Aox4, able to communicate needs well O2: RA CR: 4.90 K: 5.0 PLT: 293 HGB: 9.2 BS: 87 (12/03 08) Admitting Diagnosis: Covid (+) Pertinent History: ESRD Living Situation: home with family Pain plan: denies Mobility: assistance, stand-by, gait belt and walker Baseline activity: walker Alarms/Safety: Bed Alarm LDA's: Peripheral Pertinent test results: creatinine 4.90 Consults: PT Abnormals/Pending: Na 127, creatinine Other Cares/Comments: on dialysis Discharge Disposition: Home with Self care/family Discharge Time: to be decided Held kelly per SILVER. Continue to cough. Had dialysis today with 0.25 L of fluid. NPO at midnight PD cath removal. Calm and pleasant with cares. Will continue to provide supportive care. * Plan of Care - Disha Pierce RN - 12/03/2022 3:08 AM CDT Goal Outcome Evaluation: Plan of Care Reviewed With: patient Special precautions, Dialysis Patient alert oriented x4, vital sign stable, on room air, Lung sounddiminished, coughs infrequent, Pt up with assist of x1 gait belt walker,voids without difficulty using bedside. Denies sob no chest pain no N/V. PRN Neb,PO Dilaudid,Melatonin given, Pt sleeps betweencare, Will continue to provide supportive care. Plan for discharge TBD. * Plan of Care - Malachi Romo RN - 12/02/2022 10:48 PM CDT Goal Outcome Evaluation: Plan of Care Reviewed With: patient 3pm-11pm RN Patient VS are at baseline: Yes Patient able to ambulate as they were prior to admission or with assist devices provided by therapyduring their stay: Yes Patient must void prior to discharge: Yes Patient able to tolerate oral intake: Yes Patient has adequate pain control using oral analgesics: Yes Patient up with stand by assist, up on chair for dinner. Some expiratory wheezing. Oxycodone used for pain management. Patient on peritoneal dialysis and did it this afternoon ending at around 8pm tolerated it well. Took a shower BS 206 and 243, discharge planning still in progress. * Plan of Care - Deloris Welsh RN - 12/02/2022 2:11 PM CDT Goal Outcome Evaluation: Plan of Care Reviewed With: patient Overall Patient Progress: improvingOverall Patient Progress: improving VS-stable, afebrile, K was 5.0 today. Lung Sounds-exp wheeze, rhonchi on top of lungs bilaterally, diminished bases. Less coughing today.Denies feeling sob, taking deep breathes. +prod sputum is still creamy pale yellow. O2-on room air. GI-+bs, +flatus. Lbm was . Tolerating diet. Denies nausea. Gave miralax, senna, and soribitol. Bs was 88, upto 114 after one apple juice. Pt was sipping on apple juice right before the bs at 12 noon was taken. 301. -voiding. On bsc. Plus peritoneal dialysis. Pt likes a 1400 run. IVF-sl iv. Dressings-none. CMS-denies numbness and tingling,+pp. Drain-peritoneal dialysis. Activity-up with sba. Walking in room. Sitting in recliner chair. Going to bsc. Pain-rates pain overall 5-8. Chronic back pain. Taking dilaudid and tylenol. D/C Plan-to be determined. PT eval for tomorrow. Dialysis run today. * Plan of Care - Disha Pierce RN - 12/02/2022 4:59 AM CDT Goal Outcome Evaluation: Special precautions, Dialysis Patient alert oriented x4, vital sign stable, on room air, Lung sounddiminished, Pt up with assist of x1 gait belt walker,voids without difficulty using bedside. Deniespain/sob no chest pain no N/V. PRN PO Dilaudid and Melatonin given, Will continue to provide supportive care. * Plan of Care - Malachi Romo RN - 12/02/2022 12:04 AM CDT Goal Outcome Evaluation: Plan of Care Reviewed With: [id number] RN Patient VS are at baseline: Yes Patient able to ambulate as they were prior to admission or with assist devices provided by therapyduring their stay: Yes Patient must void prior to discharge: Yes Patient able to tolerate oral intake: Yes Patient has adequate pain control using oral analgesics: Yes Patient up on chair for dinner, had her peritoneal dialysis this afternoon/evening and was done at about 2030. Oxycodone and tylenol given for pain management. Voided in the bedside commode, BS 210 and 283. Potassium recheck 4.9 at 2200. Will continue to follow plan of care. * Plan of Care - Deloris Welsh RN - 12/01/2022 10:29 AM CDT Goal Outcome Evaluation: Plan of Care Reviewed With: patient VS-stable, afebrile, I don't feel well today Lung Sounds-rhonchi, diminished bases, +cough, yellow/green in color, creamy. Freq cough, taking deep breathes. SILVER with using bsc. O2-on room air. 95%. GI-+Bs, +flatus. Lbm was per pt. Poor appetite, only had bites for bkst. No insulin coverage. Bs from blood draw was 120 in am. For lunch only had orange sherbet -voiding bsc. Also perineal dialysis. Pt wants to start at 1400. IVF-sl iv. On iv lasix. Flushed well. Dressings-perineal drain drsg c/d/I. CMS-denies numbness and tingling, +pp, warm. Up with sba to bsc. Drain-perineal dialysis. Activity-up sba to bsc. Silver Pain-rates pain a 10. Gave tylenol and dilaudid orally. Generalized aches . Even my face hurts D/C Plan-to be determined. Lives with family. Perineal dialysis started at 1500 K was 5.7. gave lokelma --spaced out due to other oral meds given. K recheck will be at 2200 -- which will be approx 2 hours after dialysis today. Dialysis started at 1500 * Plan of Care - Disha Pierce RN - 12/01/2022 2:56 AM CDT Goal Outcome Evaluation: Special precautions, Dialysis Patient alert oriented x4, vital sign stable, on room air, Lung sounddiminished, Pt up with assist of x1 gait belt walker, Denies pain/sob no chest pain no N/V. Melatonin given, Will continue to provide supportive care. * Plan of Care - Karime Navarrete RN - 11/30/2022 11:34 PM CDT Goal Outcome Evaluation: Pt is A&Ox4, continues on special precautions, On RA. LS diminished, coarse, crackles present. Pt has new Periferal IV to R/ hand SL. R/ antecubital IV removed, due pt c/o burning sensation when Vancomycin infusion started. IV stopped right away, removed and cold applied.Appetite poor. Peritoneal dialysis stopped 12:20. Pt A-1 with walker and gate belt. 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 Creatinine for last 3 days 11/29/2022: 2:13 AM Creatinine 4.58 mg/dL; 6:28 AM Creatinine 4.54 mg/dL 11/30/2022: 7:23 AM Creatinine 4.78 mg/dL Recent Vancomycin Level(s) for last 3 days No results found for requested labs within last 3 days. Vancomycin IV Administrations (past 72 hours) No vancomycin orders with administrations in past 72 hours. Nephrotoxins and other renal medications (From now, onward) Start Dose/Rate Route Frequency Ordered Stop 11/30/22 1500 vancomycin (VANCOCIN) 1,000 mg in 200 mL dextrose intermittent infusion 1,000 mg 200 mL/hr over 1 Hours Intravenous ONCE 11/30/22 1453 11/30/[address] [facility]cedo - receiving intermittent dosing 1 each Intravenous SEE ADMIN INSTRUCTIONS 11/30/22 1453 11/30/22 1415 dianeal PD LOW calcium-1.5% dex (calcium 2.5 mEq/L) 2,000 mL with vancomycin 1 g PERITONEAL DIALYSATE Dialysis DAVITA SUPPLIED PD 11/30/22 1416 Contrast Orders - past 72 hours (72h ago, onward) None InsightRX Prediction of Planned Initial Vancomycin Regimen Insight not indicated in peritoneal dialysis pt Plan: Start vancomycin 1000 mg IV once now. Per nephrology note, after discussing w/ID, doing IV AND IP vanco as pt only runs PD x 5 hours daily. Pt running PD in the am per RN, she is done with PD for today. Give 1 gm dose IV now. Will check level in am. NOTE: no IP vanco will be given before the level is drawn tomorrow am. Renal has ordered vanco 1 gm/2Lbag PD fluid. Instill 3 L daily. Pt will have 1500mg IP vanco per PD run. Per references, IP absorption of vanco is 60% absorbed per 6 hrs dwell time. Pt's run is only 5 hr, so assume 50% absorption. Vancomycin monitoring method: Renal Replacement Therapy Vancomycin therapeutic monitoring goal: 15-20 mg/L Pharmacy will check vancomycin levels as appropriate in 1-3 Days. Serum creatinine levels will be ordered per MD in PD HD pt . Bonnie Wilks RPH * Provider Notification - Kyra Reyez RN - 11/30/2022 1:24 PM CDT Paged provider- critical lab from ID--positive aerobic bacterial culture- corynebacterium striatum. nephrology updated. Will continue monitoring. * Plan of Care - Kyra Reyez RN - 11/30/2022 11:16 AM CDT Goal Outcome Evaluation: Patient is A/O X4. VSS, RA. up on SBA. No chest pain or sob.Tolerated renal diet. PIV saline locked. Special precaution continued. PD cath in abdomen intact. peritoneal dialysis treatment started by charge nurses this morning. On Tele. BG checked-88. Pain managed by PRN Tylenol. Patient is voiding w/o difficulty. Will continue monitoring. Discharge plan Home when medically ready. At 14:17, BG 256. 4 unit insulin given per carb count. ID following. Aerobic bacterial culture, andgram stain swab collected and send to lab. Will continue monitoring. * Plan of Care - Obey Martinez RN - 11/30/2022 6:51 AM CDT Goal Outcome Evaluation: Patient alert, oriented and up on SBA. Diet well tolerated. On room air. PIV saline locked. Specialprecaution continued. PD cath in abdomen intact. Refused peritoneal dialysis treatment last night. On Tele: sinus rhythm in the 60s. Glucose QID: 233/109. Pain managed by PRN dilaudid. Empirically started on ceftriaxone per nephrology while PD fluid and exit fluid analysis results. Will continue toprovide cares as needed. * Plan of Care - Saray Gilmore RN - 11/29/2022 11:32 PM CDT Pt is alert and oriented x4, was given scheduled Oxycodone for pain, with relief, voiding w/o difficulty, SBA, on rtegular diet. On peritoneales dialysis, pecial precautions maintained. BP (!) 149/58 (BP Location: Left arm, Patient Position: Semi-Thorpe's, Cuff Size: Adult Regular) Pulse 75 Temp 98.1 ??F (36.7 ??C) (Temporal) Resp 16 Ht 1.549 m (5' 1) Wt 44.1 kg (97 lb 3.6 oz) SpO2 97% BMI 18.37 kg/m?? * Plan of Care - Muriel Zamudio RN - 11/29/2022 11:29 PM CDT Went in room to superintendent radio communications to peritoneal dialysis and pt refused. States she does it during the day when she is awake. States she has tried in the past to do it overnight but can't sleep with all that fluid in her stomach. * Plan of Care - Rose Arriaga RN - 11/29/2022 8:11 PM CDT Pt is A&O. BP slightly elevated, resumed home meds. Sliding scale per order. Complains of SOB when ambulating. Assist of 1, gait belt, walker. CMS intact. Voiding regularly. Tele monitoring in place SR-75. Pain minimal and managed with PRN tylenol and dilaudid. Peritoneales dialysis set up by deputy director of finance. * Utilization Review - Karthik Morrow MD - 11/29/2022 2:57 PM CDT Admission Status; Secondary Review Determination Under the authority of the Utilization Management Committee, the utilization review process indicated a secondary review on the above patient. The review outcome is based on review of the medical records, discussions with staff, and applying clinical experience noted on the date of the review. (x) Inpatient Status Appropriate - This patient's medical care is consistent with medical management for inpatient care and reasonable inpatient medical practice. RATIONALE FOR DETERMINATION The patient is a 77-year-old female admitted on 11/28/2022. Patient has end- stage renal disease andgets 2 cycles per week of peritoneal dialysis. Her creatinine is in the 4 range. She came in with hypoxia. She also was positive for COVID-19. proBNP was elevated at 2017. She was started on IV remdesivir due to hypoxia and was given IV Lasix. She may have fluid overload. Has been seen by nephrology. Hemoglobin is slightly low at 10.9. Patient had a peritoneal dialysis order placed and was started on Rocephin 2 g IV while awaiting peritoneal dialysis fluid evaluation for possible peritoneal fluid infection. Based on high complexity with intermittent hypoxia and concomitant COVID-19 on remdesivir, the patient is appropriate to remain at inpatient status. The severity of illness, intensity of service provided, expected LOS and risk for adverse outcome make the care complex, high risk and appropriate for hospital admission. The information on this document is developed by the utilization review team in order for the business office to ensure compliance. This only denotes the appropriateness of proper admission status and does not reflect the quality of care rendered. The definitions of Inpatient Status and Observation Status used in making the determination above are those provided in the CMS Coverage Manual, Chapter 1 and Chapter 6, section 70.4. Sincerely, Parrish Morrow MD Physician Advisor Utilization Review/ Case Management [employer]. * Pharmacy-Admission Medication History - Lukasz Smith RP - 11/29/2022 10:49 AM CDT Pharmacist Admission Medication History Admission medication history is complete. The information provided in this note is only as accurateas the sources available at the time of the update. Information Source(s): Patient, Clinic records, and Hospital records via in-person Pertinent Information: Patient was just discharged from [facility] on 11/26. There were no medication changes since then. Patient is due to receive her bowel regimen (miralax, senna, and sorbitol) today. Changes made to [employer] medication list: Added: None Deleted: None Changed: None Allergies reviewed with patient and updates made in EHR: yes Medication History Completed By: Lukasz Smith RPH 11/29/2022 10:49 AM [employer] Med List Medication Sig Last Dose albuterol (PROVENTIL) (2.5 MG/3ML) 0.083% neb solution Take 2.5 mg by nebulization every 4 hours asneeded for shortness of breath Unknown at prn amLODIPine (NORVASC) 10 MG tablet Take 10 mg by mouth 2 times daily 11/28/2022 at am aspirin 81 MG EC tablet Take 81 mg by mouth daily 11/28/2022 at am calcium acetate (PHOSLO) 667 MG CAPS capsule Take 667 mg by mouth 3 times daily (with meals) 11/28/2022 at am carboxymethylcellulose PF (REFRESH PLUS) 0.5 % ophthalmic solution Place 1 drop Into the left eye 4times daily 11/28/2022 at am cetirizine (ZYRTEC) 10 MG tablet Take 10 mg by mouth daily 11/28/2022 at am cloNIDine (CATAPRES) 0.1 MG tablet Take 2 tablets (0.2 mg) by mouth every morning and take 3 tablets by mouth (0.3 mg) every evening 11/28/2022 at am erythromycin (ROMYCIN) 5 MG/GM ophthalmic ointment Place Into the left eye 4 times daily 11/28/2022t am furosemide (LASIX) 40 MG tablet Take 40 mg by mouth daily 11/28/2022 at am ipratropium - albuterol 0.5 mg/2.5 mg/3 mL (DUONEB) 0.5-2.5 (3) MG/3ML neb solution Inhale 3 mLs into the lungs every 6 hours as needed for shortness of breath Unknown at prn labetalol (NORMODYNE) 300 MG tablet Take 300 mg by mouth 3 times daily 11/28/2022 at am khdwcakn-[id number]-[id number] (MAXITROL) 3.5-02408-9.[address] 0.25 inches Into the left eye 4 times daily 11/28/2022 at am nicotine (NICODERM CQ) 7 MG/24HR [address] 1 patch onto the skin every 24 hours 11/27/2022 at pm oxyCODONE (ROXICODONE) 5 MG tablet Take 10 mg by mouth at bedtime 11/27/2022 at pm polyethylene glycol (MIRALAX) 17 g packet Take 1 packet by mouth every 3 days 11/26/2022 at am repaglinide (PRANDIN) 1 MG tablet Take 1 tablet by mouth 3 times daily (before meals) 11/28/2022 atam senna (SENOKOT) 8.6 MG tablet Take 1 tablet by mouth every 3 days 11/26/2022 at am sorbitol 70 % SOLN solution Take 30 mLs by mouth every 3 days 11/26/2022 at am triamcinolone (KENALOG) 0.1 % external cream Apply topically daily as needed for irritation Unknownat prn * Plan of Care - Obey Martinez RN - 11/29/2022 3:11 AM CDT Goal Outcome Evaluation: Received from [facility] via EMS around 11 pm patient alert, oriented and up on SBA. Diet well tolerated. On room air. SOB with activity. PIV saline locked. Voiding spontaneously. CMS intact. Glucose checks: 63/88/165. On tele: sinus rhythm in the 70s. PRN dilaudid given for pain. Made comfortable in bed and oriented to call light system. Nephrology consult today for dialysis. Will continue to provide cares as needed. documented in this encounter Plan of Treatment Not on file documented as of this encounter Procedures Procedure Name Priority Date/Time Associated Diagnosis Comments GLUCOSE BY METER Routine 12/06/2022 12:0 4 PM CDT BASIC METABOLIC PANEL Routine 12/06/2022 6:06 AM CDT GLUCOSE BY METER Routine 12/06/2022 2:02 AM CDT GLUCOSE BY METER Routine 12/05/2022 9:16 PM CDT GLUCOSE BY METER Routine 12/05/2022 5:05 PM CDT GLUCOSE BY METER Routine 12/05/2022 11:4 0 AM CDT GLUCOSE BY METER Routine 12/05/2022 7:38 AM CDT VANCOMYCIN LEVEL Routine 12/05/2022 7:06 AM CDT BASIC METABOLIC PANEL Routine 12/05/2022 7:06 AM CDT CBC WITH PLATELETS Routine 12/05/2022 7: 06 AM CDT GLUCOSE BY METER Routine 12/05/2022 1:49 AM CDT GLUCOSE BY METER Routine 12/04/2022 10:0 2 PM CDT GLUCOSE BY METER Routine 12/04/2022 6:19 PM CDT GLUCOSE BY METER Routine 12/04/2022 12:2 8 PM CDT GLUCOSE BY METER Routine 12/04/2022 9:30 AM CDT BASIC METABOLIC PANEL Routine 12/04/2022 7:38 AM CDT CBC WITH PLATELETS Routine 12/04/2022 7: 38 AM CDT REMOVAL, CATHETER, DIALYSIS, PERITONEAL 12/04/2022 7:26 AM CDT Abdominal infection (H) GLUCOSE BY METER Routine 12/04/2022 1:53 AM CDT GLUCOSE BY METER Routine 12/03/2022 10:0 0 PM CDT VANCOMYCIN LEVEL Timed 12/03/2022 8:17 PM CDT GLUCOSE BY METER Routine 12/03/2022 5:36 PM CDT GLUCOSE BY METER Routine 12/03/2022 11:1 4 AM CDT GLUCOSE BY METER Routine 12/03/2022 8:01 AM CDT GLUCOSE BY METER Routine 12/03/2022 7:31 AM CDT VANCOMYCIN LEVEL Routine 12/03/2022 6:56 AM CDT BASIC METABOLIC PANEL Routine 12/03/2022 6:56 AM CDT CBC WITH PLATELETS Routine 12/03/2022 6: 56 AM CDT GLUCOSE BY METER Routine 12/03/2022 1:27 AM CDT GLUCOSE BY METER Routine 12/02/2022 10:5 0 PM CDT GLUCOSE BY METER Routine 12/02/2022 7:04 PM CDT GLUCOSE BY METER Routine 12/02/2022 4:26 PM CDT GLUCOSE BY METER Routine 12/02/2022 11:4 5 AM CDT VANCOMYCIN LEVEL Routine 12/02/2022 9:04 AM CDT GLUCOSE BY METER Routine 12/02/2022 8:42 AM CDT GLUCOSE BY METER Routine 12/02/2022 8:06 AM CDT BASIC METABOLIC PANEL Routine 12/02/2022 6:39 AM CDT CBC WITH PLATELETS Routine 12/02/2022 6: 39 AM CDT GLUCOSE BY METER Routine 12/02/2022 1:58 AM CDT GLUCOSE BY METER Routine 12/01/2022 10:2 5 PM CDT POTASSIUM Timed 12/01/2022 9:56 PM CDT GLUCOSE BY METER Routine 12/01/2022 6:33 PM CDT GLUCOSE BY METER Routine 12/01/2022 12:4 2 PM CDT EXTRA BLUE TOP TUBE (LAB USE ONLY) Routine 12/01/2022 7:35 AM CDT VANCOMYCIN LEVEL Routine 12/01/2022 7:35 AM CDT BASIC METABOLIC PANEL Routine 12/01/2022 7:35 AM CDT CBC WITH PLATELETS Routine 12/01/2022 7: 35 AM CDT GLUCOSE BY METER Routine 11/30/2022 9:53 PM CDT POTASSIUM Routine 11/30/2022 7:26 PM CDT DIFERENTIAL BODY FLUID Routine 11/30/2022 7:11 PM CDT CELL COUNT BODY FLUID Routine 11/30/2022 7:11 PM CDT AEROBIC BACTERIAL CULTURE ROUTINE Routine 11/30/2022 7:11 PM CDT GRAM STAIN Routine 11/30/2022 7:11 PM CDT CELL COUNT WITH DIFFERENTIAL FLUID Routine 11/30/2022 7:11 PM CDT GLUCOSE BY METER Routine 11/30/2022 5:55 PM CDT AEROBIC BACTERIAL CULTURE ROUTINE Routine 11/30/2022 3:04 PM CDT GRAM STAIN Routine 11/30/2022 3:04 PM CDT GLUCOSE BY METER Routine 11/30/2022 2:14 PM CDT POTASSIUM Routine 11/30/2022 1:45 PM CDT GLUCOSE BY METER Routine 11/30/2022 12:0 3 PM CDT EXTRA RED TOP TUBE (LAB USE ONLY) Routine 11/30/2022 7:23 AM CDT EXTRA BLUE TOP TUBE (LAB USE ONLY) Routine 11/30/2022 7:23 AM CDT COMPREHENSIVE METABOLIC PANEL Routine 11/30/2022 7:23 AM CDT CBC WITH PLATELETS Routine 11/30/2022 7: 23 AM CDT GLUCOSE BY METER Routine 11/30/2022 7:01 AM CDT GLUCOSE BY METER Routine 11/30/2022 2:12 AM CDT GLUCOSE BY METER Routine 11/29/2022 9:53 PM CDT GLUCOSE BY METER Routine 11/29/2022 5:10 PM CDT XR CHEST PORT 1 VIEW Routine 11/29/2022 4:45 PM CDT AEROBIC BACTERIAL CULTURE ROUTINE Routine 11/29/2022 3:24 PM CDT DIFERENTIAL BODY FLUID Routine 11/29/2022 3:23 PM CDT CELL COUNT BODY FLUID Routine 11/29/2022 3:23 PM CDT GRAM STAIN Routine 11/29/2022 3:23 PM CDT CELL COUNT WITH DIFFERENTIAL FLUID Routine 11/29/2022 3:23 PM CDT GLUCOSE BY METER Routine 11/29/2022 10:5 1 AM CDT ECHO COMPLETE Routine 11/29/2022 9:58 AM CDT RESPIRATORY AEROBIC BACTERIAL CULTURE Routine 11/29/2022 9:00 AM CDT GLUCOSE BY METER Routine 11/29/2022 8:38 AM CDT GLUCOSE BY METER Routine 11/29/2022 7:50 AM CDT HEPATITIS B SURFACE ANTIBODY STAT Add-on 11/29/2022 6:28 AM CDT TROPONIN T, HIGH SENSITIVITY Timed 11/29/2022 6:28 AM CDT HEPATITIS B SURFACE ANTIGEN STAT Add-on 11/29/2022 6:28 AM CDT GLUCOSE Routine 11/29/2022 6:28 AM CDT BASIC METABOLIC PANEL Timed 11/29/2022 6:28 AM CDT GLUCOSE BY METER Routine 11/29/2022 5:53 AM CDT GLUCOSE BY METER Routine 11/29/2022 4:26 AM CDT GLUCOSE BY METER Routine 11/29/2022 3:01 AM CDT CBC WITH PLATELETS AND DIFFERENTIAL Timed 11/29/2022 2:13 AM CDT TROPONIN T, HIGH SENSITIVITY Timed 11/29/2022 2:13 AM CDT PROCALCITONIN Routine 11/29/2022 2:13 AM CDT CBC WITH PLATELETS & DIFFERENTIAL Timed 11/29/2022 2:13 AM CDT NT PROBNP INPATIENT Routine 11/29/2022 2 :13 AM CDT BASIC METABOLIC PANEL Timed 11/29/2022 2:13 AM CDT GLUCOSE BY METER Routine 11/29/2022 2:00 AM CDT GLUCOSE BY METER Routine 11/29/2022 1:20 AM CDT EKG 12-LEAD, TRACING ONLY STAT 11/29/2022 12:43 AM CDT documented in this encounter Results * Glucose by meter (12/06/2022 12:04 PM CDT) GLUCOSE BY METER POCT 96 70 - 99 mg/dL 12/06/2022 12:11 PM CDT RH LABORATORY POC Blood, Capillary BLOOD SPECIMEN / Unknown 12/06/2022 12:04 PM CDT 12/06/2022 12:11 PM CDT Stormy Ontiveros MD, MD LAB - [facility] POCT RH LABORATORY POC [facility] [address] Lab (1st floor, no room number) [place] [address], [facility] [phone] * (ABNORMAL) Basic metabolic panel (12/06/2022 6:06 AM CDT) Pathologist [facility] Sodium 126(L) 135 - 145 mmol/L 12/06/2022 6:37 AM CDT LABORATORY Comment:Reference intervals for this test were updated on 11/06/2022 to more accurately reflect our healthy population. There may be differences in the flagging of prior results with similar values performed with this method. Interpretation of those prior results can be made in the context of the updated reference intervals. Potassium 5.6(H) 3.4 - 5.3 mmol/L 12/06/2022 6:37 AM CDT LABORATORY Chloride 93(L) 98 - 107 mmol/L 12/06/2022 6:37 AM CDT LABORATORY Carbon Dioxide (CO2) 25 22 - 29 mmol/L 12/06/2022 6:37 AM CDT LABORATORY Anion Gap 8 7 - 15 mmol/L 12/06/2022 6:37 AM CDT LABORATORY Urea Nitrogen 36.8(H) 8.0 - 23.0 mg/dL 12/06/2022 6:37 AM CDT LABORATORY Creatinine 4.20(H) 0.51 - 0.95 mg/dL 12/06/2022 6:37 AM CDT LABORATORY GFR Estimate 10(L) >60 mL/min/1. 73m2 12/06/2022 6:37 AM CDT LABORATORY Calcium 8.4(L) 8.8 - 10.2 mg/dL 12/06/2022 6:37 AM CDT LABORATORY Glucose 157(H) 70 - 99 mg/dL 12/06/2022 6:37 AM CDT RH LABORATORY Blood STRUCTURE OF RIGHT HAND / Unknown Venipuncture / Unknown 12/06/2022 6:06 AM CDT 12/06/2022 6:16 AM CDT Lisa Ospina DO LAB - BLOOD ORDERABL ES [facility] Lab [address] Lab (1st floor, no room number) [place] [address], [place] [phone] * Glucose by meter (12/06/2022 2:02 AM CDT) GLUCOSE BY METER POCT 93 70 - 99 mg/dL 12/06/2022 2:10 AM CDT RH LABORATORY POC Blood, Capillary BLOOD SPECIMEN / Unknown 12/06/2022 2:02 AM CDT 12/06/2022 2:10 AM CDT MD TABITHA Leigh MD - [employer] POCT Performing Organization Address City/[facility]/ZIP Co de Phone Number LABORATORY [facility] [address] Lab (1st floor, no room number) [place] [address], [place] [phone] * (ABNORMAL) Glucose by meter (12/05/2022 9:16 PM CDT) GLUCOSE BY METER POCT 267(H) 70 - 99 mg/dL 12/05/2022 9:23 PM CDT RH LABORATORY POC Blood, Capillary BLOOD SPECIMEN / Unknown 12/05/2022 9:16 PM CDT 12/05/2022 9:23 PM CDT Stormy Ontiveros MD, MD LAB - [facility] POCT LABORATORY [facility] [address] Lab (1st floor, no room number) [place] [address], [place] [phone] * (ABNORMAL) Glucose by meter (12/05/2022 5:05 PM CDT) GLUCOSE BY METER POCT 146(H) 70 - 99 mg/dL 12/05/2022 5:12 PM CDT RH LABORATORY POC Blood, Capillary BLOOD SPECIMEN / Unknown 12/05/2022 5:05 PM CDT 12/05/2022 5:12 PM CDT Stormy Ontiveros MD, MD LAB - [facility] POCT LABORATORY [facility] [address] Lab (1st floor, no room number) [place] [address], [place] [phone] * (ABNORMAL) Glucose by meter (12/05/2022 11:40 AM CDT) GLUCOSE BY METER POCT 195(H) 70 - 99 mg/dL 12/05/2022 11:48 AM CDT RH LABORATORY POC Blood, Capillary BLOOD SPECIMEN / Unknown 12/05/2022 11:40 AM CDT 12/05/2022 11:48 AM CDT Stormy Ontiveros MD, MD LAB - [facility] POCT LABORATORY [facility] Lab [address] Lab (1st floor, no room number) [place] [address], [place] [phone] * (ABNORMAL) Glucose by meter (12/05/2022 7:38 AM CDT) GLUCOSE BY METER POCT 198(H) 70 - 99 mg/dL 12/05/2022 7:45 AM CDT RH LABORATORY POC Blood, Capillary BLOOD SPECIMEN / Unknown 12/05/2022 7:38 AM CDT 12/05/2022 7:45 AM CDT [facility] MD, [facility] [address] Lab (1st floor, no room number) [place] [address], [facility] [phone] * (ABNORMAL) Basic metabolic panel (12/05/2022 7:06 AM CDT) Sodium 125(L) 135 - 145 mmol/L 12/05/2022 7:44 AM CDT RH LABORATORY Comment:Reference intervals for this test were updated on 11/06/2022 to more accurately reflect our healthy population. There may be differences in the flagging of prior results with similar values performed with this method. Interpretation of those prior results can be made in the context of the updated reference intervals. Potassium 5.4(H) 3.4 - 5.3 mmol/L 12/05/2022 7:44 AM CDT LABORATORY Chloride 91(L) 98 - 107 mmol/L 12/05/2022 7:44 AM CDT LABORATORY Carbon Dioxide (CO2) 26 22 - 29 mmol/L 12/05/2022 7:44 AM CDT LABORATORY Anion Gap 8 7 - 15 mmol/L 12/05/2022 7:44 AM CDT LABORATORY Urea Nitrogen 34.8(H) 8.0 - 23.0 mg/dL 12/05/2022 7:44 AM CDT LABORATORY Creatinine 4.04(H) 0.51 - 0.95 mg/dL 12/05/2022 7:44 AM CDT LABORATORY GFR Estimate 11(L) >60 mL/min/1. 73m2 12/05/2022 7:44 AM CDT LABORATORY Calcium 8.6(L) 8.8 - 10.2 mg/dL 12/05/2022 7:44 AM CDT LABORATORY Glucose 208(H) 70 - 99 mg/dL 12/05/2022 7:44 AM CDT LABORATORY Blood STRUCTURE OF LEFT HAND / Unknown Venipuncture / Unknown 12/05/2022 7:06 AM CDT 12/05/2022 7:15 AM CDT Nidia Yanez DO LAB - BLOOD ORDER JOSEFA LABORATORY [facility] [address] Lab (1st floor, no room number) [place] [address], [facility] [phone] * (ABNORMAL) CBC with platelets (12/05/2022 7:06 AM CDT) WBC Count 11.5(H) 4.0 - 11.0 10e3/uL 12/05/2022 7:18 AM CDT RH LABORATORY RBC Count 2.36(L) 3.80 - 5.20 10e6/uL 12/05/2022 7:18 AM CDT RH LABORATORY Hemoglobin 7.8(L) 11.7 - 15.7 g/dL 12/05/2022 7:18 AM CDT RH LABORATORY Hematocrit 23.3(L) 35.0 - 47.0 % 12/05/2022 7:18 AM CDT RH LABORATORY MCV 99 78 - 100 fL 12/05/2022 7:18 AM CDT RH LABORATORY MCH 33.1(H) 26.5 - 33.0 pg 12/05/2022 7:18 AM CDT RH LABORATORY MCHC 33.5 31.5 - 36.5 g/dL 12/05/2022 7:18 AM CDT RH LABORATORY RDW 14.3 10.0 - 15.0 % 12/05/2022 7:18 AM CDT RH LABORATORY Platelet Count 309 150 - 450 10e3/uL 12/05/2022 7:18 AM CDT RH LABORATORY Blood STRUCTURE OF LEFT HAND / Unknown Venipuncture / Unknown 12/05/2022 7:06 AM CDT 12/05/2022 7:15 AM CDT Nidia Yanez DO LAB - BLOOD ORDER JOSEFA LABORATORY [facility] [address] Lab (1st floor, no room number) [place] [address], [facility] [phone] * (ABNORMAL) Vancomycin level (12/05/2022 7:06 AM CDT) Vancomycin 27.8(HH) ug/mL 12/05/2022 8:09 AM CDT LABORATORY Comment: Traditional Dosing Therapeutic Range: Trough 10-15 ug/mL Peak 20-40 ug/mL Critical: Greater than 25.0 ug/mL Blood STRUCTURE OF LEFT HAND / Unknown Venipuncture / Unknown 12/05/2022 7:06 AM CDT 12/05/2022 7:15 AM CDT Nidia Yanez DO LAB - BLOOD ORDER JOSEFA LABORATORY [facility] Lab [address] Lab (1st floor, no room number) [place] [id number], [place] [phone] * (ABNORMAL) Glucose by meter (12/05/2022 1:49 AM CDT) GLUCOSE BY METER POCT 209(H) 70 - 99 mg/dL 12/05/2022 1:56 AM CDT LABORATORY POC Blood, Capillary BLOOD SPECIMEN / Unknown 12/05/2022 1:49 AM CDT 12/05/2022 1:56 AM CDT Stormy Ontiveros MD, MD LAB - [facility] POCT LABORATORY POC [facility] [address] Lab (1st floor, no room number) [place] [address], [place] [phone] * (ABNORMAL) Glucose by meter (12/04/2022 10:02 PM CDT) GLUCOSE BY METER POCT 261(H) 70 - 99 mg/dL 12/04/2022 10:09 PM CDT LABORATORY POC Blood, Capillary BLOOD SPECIMEN / Unknown 12/04/2022 10:02 PM CDT 12/04/2022 10:09 PM CDT Stormy Ontiveros MD, MD LAB - [facility] POCT LABORATORY [facility] [address] Lab (1st floor, no room number) [place] [address], [place] [phone] * (ABNORMAL) Glucose by meter (12/04/2022 6:19 PM CDT) GLUCOSE BY METER POCT 290(H) 70 - 99 mg/dL 12/04/2022 6:25 PM CDT LABORATORY POC Blood, Capillary BLOOD SPECIMEN / Unknown 12/04/2022 6:19 PM CDT 12/04/2022 6:25 PM CDT Stormy Ontiveros MD, MD LAB - [facility] POCT LABORATORY [facility] [address] Lab (1st floor, no room number) [place] [address], [place] [phone] * (ABNORMAL) Glucose by meter (12/04/2022 12:28 PM CDT) GLUCOSE BY METER POCT 303(H) 70 - 99 mg/dL 12/04/2022 12:41 PM CDT LABORATORY POC Blood, Capillary BLOOD SPECIMEN / Unknown 12/04/2022 12:28 PM CDT 12/04/2022 12:41 PM CDT Stormy Ontiveros MD, MD LAB - [facility] POCT LABORATORY [facility] [address] Lab (1st floor, no room number) [place] [address], [place] [phone] * Glucose by meter (12/04/2022 9:30 AM CDT) GLUCOSE BY METER POCT 92 70 - 99 mg/dL 12/04/2022 9:37 AM CDT RH LABORATORY POC Comment:Dr/RN Notified Blood, Capillary BLOOD SPECIMEN / Unknown 12/04/2022 9:30 AM CDT 12/04/2022 9:37 AM CDT Stormy Ontiveros MD, MD LAB - [facility] POCT RH LABORATORY POC [facility] [address] Lab (1st floor, no room number) [place] [address], [facility] [phone] * (ABNORMAL) CBC with platelets (12/04/2022 7:38 AM CDT) WBC Count 10.7 4.0 - 11.0 10e3/uL 12/04/2022 7:45 AM CDT RH LABORATORY RBC Count 2.84(L) 3.80 - 5.20 10e6/uL 12/04/2022 7:45 AM CDT RH LABORATORY Hemoglobin 8.9(L) 11.7 - 15.7 g/dL 12/04/2022 7:45 AM CDT RH LABORATORY Hematocrit 27.2(L) 35.0 - 47.0 % 12/04/2022 7:45 AM CDT RH LABORATORY MCV 96 78 - 100 fL 12/04/2022 7:45 AM CDT RH LABORATORY MCH 31.3 26.5 - 33.0 pg 12/04/2022 7:45 AM CDT RH LABORATORY MCHC 32.7 31.5 - 36.5 g/dL 12/04/2022 7:45 AM CDT RH LABORATORY RDW 14.1 10.0 - 15.0 % 12/04/2022 7:45 AM CDT RH LABORATORY Platelet Count 295 150 - 450 10e3/uL 12/04/2022 7:45 AM CDT RH LABORATORY Blood STRUCTURE OF RIGHT UPPER LIMB / Unknown Venipuncture / Unknown 12/04/2022 7:38 AM CDT 12/04/2022 7:42 AM CDT Nidia Yanez DO LAB - BLOOD ORDER JOSEFA RH LABORATORY [facility] [address] [facility] Lab (1st floor, no room number) [place] [address], [facility] [phone] * (ABNORMAL) Basic metabolic panel (12/04/2022 7:38 AM CDT) Sodium 129(L) 135 - 145 mmol/L 12/04/2022 8:00 AM CDT LABORATORY Comment:Reference intervals for this test were updated on 11/06/2022 to more accurately reflect our healthy population. There may be differences in the flagging of prior results with similar values performed with this method. Interpretation of those prior results can be made in the context of the updated reference intervals. Potassium 4.4 3.4 - 5.3 mmol/L 12/04/2022 8:00 AM CDT LABORATORY Chloride 93(L) 98 - 107 mmol/L 12/04/2022 8:00 AM CDT LABORATORY Carbon Dioxide (CO2) 27 22 - 29 mmol/L 12/04/2022 8:00 AM CDT LABORATORY Anion Gap 9 7 - 15 mmol/L 12/04/2022 8:00 AM CDT LABORATORY Urea Nitrogen 27.6(H) 8.0 - 23.0 mg/dL 12/04/2022 8:00 AM CDT LABORATORY Creatinine 3.30(H) 0.51 - 0.95 mg/dL 12/04/2022 8:00 AM CDT LABORATORY GFR Estimate 14(L) >60 mL/min/1. 73m2 12/04/2022 8:00 AM CDT LABORATORY Calcium 8.6(L) 8.8 - 10.2 mg/dL 12/04/2022 8:00 AM CDT LABORATORY Glucose 75 70 - 99 mg/dL 12/04/2022 8:00 AM CDT LABORATORY Blood STRUCTURE OF RIGHT UPPER LIMB / Unknown Venipuncture / Unknown 12/04/2022 7:38 AM CDT 12/04/2022 7:42 AM CDT Nidia Yanez DO LAB - BLOOD ORDER JOSEFA LABORATORY [facility] [address] Lab (1st floor, no room number) [place] [address], [facility] [phone] * (ABNORMAL) Glucose by meter (12/04/2022 1:53 AM CDT) GLUCOSE BY METER POCT 145(H) 70 - 99 mg/dL 12/04/2022 2:11 AM CDT LABORATORY POC Blood, Capillary BLOOD SPECIMEN / Unknown 12/04/2022 1:53 AM CDT 12/04/2022 2:11 AM CDT MD TABITHA Leigh MD - [facility] [address] Lab (1st floor, no room number) [place] [address], [facility] [phone] * (ABNORMAL) Glucose by meter (12/03/2022 10:00 PM CDT) GLUCOSE BY METER POCT 340(H) 70 - 99 mg/dL 12/03/2022 10:07 PM CDT LABORATORY POC Blood, Capillary BLOOD SPECIMEN / Unknown 12/03/2022 10:00 PM CDT 12/03/2022 10:07 PM CDT MD TABITHA Leigh MD - [facility] [address] Lab (1st floor, no room number) [place] [address], [facility] [phone] * Vancomycin level (12/03/2022 8:17 PM CDT) Vancomycin 20.5 ug/mL 12/03/2022 8:54 PM CDT LABORATORY Comment: Traditional Dosing Therapeutic Range: Trough 10-15 ug/mL Peak 20-40 ug/mL Critical: Greater than 25.0 ug/mL Blood STRUCTURE OF RIGHT HAND / Unknown Venipuncture / Unknown 12/03/2022 8:17 PM CDT 12/03/2022 8:29 PM CDT Nidia Yanez DO LAB - BLOOD ORDER JOSEFA LABORATORY [facility] [address] Lab (1st floor, no room number) [place] [address], [facility] [phone] * (ABNORMAL) Glucose by meter (12/03/2022 5:36 PM CDT) GLUCOSE BY METER POCT 111(H) 70 - 99 mg/dL 12/03/2022 5:42 PM CDT LABORATORY POC Blood, Capillary BLOOD SPECIMEN / Unknown 12/03/2022 5:36 PM CDT 12/03/2022 5:42 PM CDT MD TABITHA Leigh MD - [employer] POCT Performing Organization Address City/[facility]/ZIP Co de Phone Number LABORATORY [facility] [address] Lab (1st floor, no room number) [place] [address], [place] [phone] * (ABNORMAL) Glucose by meter (12/03/2022 11:14 AM CDT) GLUCOSE BY METER POCT 155(H) 70 - 99 mg/dL 12/03/2022 11:21 AM CDT LABORATORY POC Blood, Capillary BLOOD SPECIMEN / Unknown 12/03/2022 11:14 AM CDT 12/03/2022 11:21 AM CDT Stormy Ontiveros MD, MD LAB - [facility] POCT LABORATORY [facility] [address] Lab (1st floor, no room number) [place] [address], [place] [phone] * Glucose by meter (12/03/2022 8:01 AM CDT) GLUCOSE BY METER POCT 87 70 - 99 mg/dL 12/03/2022 8:08 AM CDT RH LABORATORY POC Blood, Capillary BLOOD SPECIMEN / Unknown 12/03/2022 8:01 AM CDT 12/03/2022 8:08 AM CDT Stormy Ontiveros MD, MD LAB - [facility] POCT RH LABORATORY [facility] [address] Lab (1st floor, no room number) [place] [phone], [facility] [phone] * (ABNORMAL) Glucose by meter (12/03/2022 7:31 AM CDT) GLUCOSE BY METER POCT 66(L) 70 - 99 mg/dL 12/03/2022 7:37 AM CDT LABORATORY POC Blood, Capillary BLOOD SPECIMEN / Unknown 12/03/2022 7:31 AM CDT 12/03/2022 7:37 AM CDT Stormy Ontiveros MD, MD LAB - [place] POCT LABORATORY [facility] [address] Lab (1st floor, no room number) [place] [address], [facility] [phone] * (ABNORMAL) CBC with platelets (12/03/2022 6:56 AM CDT) WBC Count 9.1 4.0 - 11.0 10e3/uL 12/03/2022 7:10 AM CDT RH LABORATORY RBC Count 2.59(L) 3.80 - 5.20 10e6/uL 12/03/2022 7:10 AM CDT RH LABORATORY Hemoglobin 9.2(L) 11.7 - 15.7 g/dL 12/03/2022 7:10 AM CDT RH LABORATORY Hematocrit 25.5(L) 35.0 - 47.0 % 12/03/2022 7:10 AM CDT RH LABORATORY MCV 99 78 - 100 fL 12/03/2022 7:10 AM CDT RH LABORATORY MCH 35.5(H) 26.5 - 33.0 pg 12/03/2022 7:10 AM CDT RH LABORATORY MCHC 36.1 31.5 - 36.5 g/dL 12/03/2022 7:10 AM CDT RH LABORATORY RDW 14.6 10.0 - 15.0 % 12/03/2022 7:10 AM CDT RH LABORATORY Platelet Count 293 150 - 450 10e3/uL 12/03/2022 7:10 AM CDT RH LABORATORY Blood STRUCTURE OF RIGHT HAND / Unknown Venipuncture / Unknown 12/03/2022 6:56 AM CDT 12/03/2022 7:06 AM CDT Nidia Yanez DO LAB - BLOOD ORDER JOSEFA RH LABORATORY [facility] [address] [facility] Lab (1st floor, no room number) [place] [address], [facility] [phone] * (ABNORMAL) Basic metabolic panel (12/03/2022 6:56 AM CDT) Sodium 127(L) 135 - 145 mmol/L 12/03/2022 7:29 AM CDT RH LABORATORY Comment:Reference intervals for this test were updated on 11/06/2022 to more accurately reflect our healthy population. There may be differences in the flagging of prior results with similar values performed with this method. Interpretation of those prior results can be made in the context of the updated reference intervals. Potassium 5.0 3.4 - 5.3 mmol/L 12/03/2022 7:29 AM CDT LABORATORY Chloride 90(L) 98 - 107 mmol/L 12/03/2022 7:29 AM CDT RH LABORATORY Carbon Dioxide (CO2) 27 22 - 29 mmol/L 12/03/2022 7:29 AM CDT RH LABORATORY Anion Gap 10 7 - 15 mmol/L 12/03/2022 7:29 AM CDT RH LABORATORY Urea Nitrogen 52.9(H) 8.0 - 23.0 mg/dL 12/03/2022 7:29 AM CDT RH LAB[facility] Creatinine 4.90(H) 0.51 - 0.95 mg/dL 12/03/2022 7:29 AM CDT [facility] GFR Estimate 9(L) >60 mL/min/1. 73m2 12/03/2022 7:29 AM CDT [facility] Calcium 8.6(L) 8.8 - 10.2 mg/dL 12/03/2022 7:29 AM CDT [facility] Glucose 86 70 - 99 mg/dL 12/03/2022 7:29 AM CDT [facility] Blood STRUCTURE OF RIGHT HAND / Unknown Venipuncture / Unknown 12/03/2022 6:56 AM CDT 12/03/2022 7:06 AM CDT Nidia Yanez DO LAB - BLOOD ORDER JOSEFA [facility] [address] Lab (1st floor, no room number) [place] [address], [facility] [phone] * (ABNORMAL) Vancomycin level (12/03/2022 6:56 AM CDT) Vancomycin 27.6(HH) ug/mL 12/03/2022 7:46 AM CDT [facility] Comment: Traditional Dosing Therapeutic Range: Trough 10-15 ug/mL Peak 20-40 ug/mL Critical: Greater than 25.0 ug/mL Blood STRUCTURE OF RIGHT HAND / Unknown Venipuncture / Unknown 12/03/2022 6:56 AM CDT 12/03/2022 7:06 AM CDT Rohini Bradford MD LAB - BLOOD ORDERABL ES [facility] [address] Lab (1st floor, no room number) [place] [address], [facility] [phone] * (ABNORMAL) Glucose by meter (12/03/2022 1:27 AM CDT) GLUCOSE BY METER POCT 267(H) 70 - 99 mg/dL 12/03/2022 1:38 AM CDT [facility] POC Blood, Capillary BLOOD SPECIMEN / Unknown 12/03/2022 1:27 AM CDT 12/03/2022 1:38 AM CDT Stormy Ontiveros MD, MD LAB - [place] POCT LABORAT[facility] [address] Lab (1st floor, no room number) [place] [address], [place] [phone] * (ABNORMAL) Glucose by meter (12/02/2022 10:50 PM CDT) GLUCOSE BY METER POCT 243(H) 70 - 99 mg/dL 12/02/2022 10:56 PM CDT LABORATORY POC Blood, Capillary BLOOD SPECIMEN / Unknown 12/02/2022 10:50 PM CDT 12/02/2022 10:56 PM CDT MD TABITHA Leigh MD - RONNY POCT Performing Organization Address [facility] Co de Phone Number LABORATORY [facility] [address] Lab (1st floor, no room number) [place] [phone], [place] [phone] * (ABNORMAL) Glucose by meter (12/02/2022 7:04 PM CDT) GLUCOSE BY METER POCT 206(H) 70 - 99 mg/dL 12/02/2022 7:10 PM CDT LABORATORY POC Blood, Capillary BLOOD SPECIMEN / Unknown 12/02/2022 7:04 PM CDT 12/02/2022 7:10 PM CDT MD TABITHA Leigh MD - RONNY POCT LABORATORY [facility] [address] Lab (1st floor, no room number) [place] [phone], [facility] [phone] * (ABNORMAL) Glucose by meter (12/02/2022 4:26 PM CDT) GLUCOSE BY METER POCT 121(H) 70 - 99 mg/dL 12/02/2022 4:32 PM CDT LABORATORY POC Blood, Capillary BLOOD SPECIMEN / Unknown 12/02/2022 4:26 PM CDT 12/02/2022 4:32 PM CDT MD TABITHA Leigh MD - [facility] POCT LABORATORY [facility] [address] Lab (1st floor, no room number) [place] [address], [facility] [phone] * (ABNORMAL) Glucose by meter (12/02/2022 11:45 AM CDT) GLUCOSE BY METER POCT 169(H) 70 - 99 mg/dL 12/02/2022 11:51 AM CDT LABORATORY POC Blood, Capillary BLOOD SPECIMEN / Unknown 12/02/2022 11:45 AM CDT 12/02/2022 11:51 AM CDT MD TABITHA Leigh MD - [place] POCT LABORATORY [facility] [address] Lab (1st floor, no room number) [place] [address], [facility] [phone] * (ABNORMAL) Vancomycin level (12/02/2022 9:04 AM CDT) Vancomycin 29.3(HH) ug/mL 12/02/2022 10:21 AM CDT LABORATORY Comment: Traditional Dosing Therapeutic Range: Trough 10-15 ug/mL Peak 20-40 ug/mL Critical: Greater than 25.0 ug/mL Blood STRUCTURE OF RIGHT HAND / Unknown Venipuncture / Unknown 12/02/2022 9:04 AM CDT 12/02/2022 9:12 AM CDT Rohini Bradford MD LAB - BLOOD ORDERABL ES [facility] Lab [address] Lab (1st floor, no room number) [place] [phone], [place] [phone] * (ABNORMAL) Glucose by meter (12/02/2022 8:42 AM CDT) GLUCOSE BY METER POCT 114(H) 70 - 99 mg/dL 12/02/2022 8:49 AM CDT LABORATORY POC Blood, Capillary BLOOD SPECIMEN / Unknown 12/02/2022 8:42 AM CDT 12/02/2022 8:49 AM CDT MD TABITHA Leigh MD - RONNY POCT Performing Organization Address City/[facility]/ZIP Co de Phone Number LABORATORY [facility] [address] Lab (1st floor, no room number) [place] [phone], [place] [phone] * Glucose by meter (12/02/2022 8:06 AM CDT) GLUCOSE BY METER POCT 84 70 - 99 mg/dL 12/02/2022 8:13 AM CDT LABORATORY POC Blood, Capillary BLOOD SPECIMEN / Unknown 12/02/2022 8:06 AM CDT 12/02/2022 8:13 AM CDT MD TABITHA Leigh MD - BEKYRIE POCT LABORATORY [facility] Lab [address] Lab (1st floor, no room number) [place] [phone], [place] [phone] * (ABNORMAL) CBC with platelets (12/02/2022 6:39 AM CDT) WBC Count 11.9(H) 4.0 - 11.0 10e3/uL 12/02/2022 6:54 AM CDT RH LABORATORY RBC Count 2.97(L) 3.80 - 5.20 10e6/uL 12/02/2022 6:54 AM CDT RH LABORATORY Hemoglobin 9.9(L) 11.7 - 15.7 g/dL 12/02/2022 6:54 AM CDT RH LABORATORY Hematocrit 28.1(L) 35.0 - 47.0 % 12/02/2022 6:54 AM CDT RH LABORATORY MCV 95 78 - 100 fL 12/02/2022 6:54 AM CDT RH LABORATORY MCH 33.3(H) 26.5 - 33.0 pg 12/02/2022 6:54 AM CDT RH LABORATORY MCHC 35.2 31.5 - 36.5 g/dL 12/02/2022 6:54 AM CDT RH LABORATORY RDW 14.3 10.0 - 15.0 % 12/02/2022 6:54 AM CDT RH LABORATORY Platelet Count 279 150 - 450 10e3/uL 12/02/2022 6:54 AM CDT RH LABORATORY Blood STRUCTURE OF RIGHT HAND / Unknown Venipuncture / Unknown 12/02/2022 6:39 AM CDT 12/02/2022 6:50 AM CDT Nidia Yanez DO LAB - BLOOD ORDER JOSEFA RH LABORATORY [facility] Lab [address] Lab (1st floor, no room number) [place] [address], [facility] [phone] * (ABNORMAL) Basic metabolic panel (12/02/2022 6:39 AM CDT) Sodium 126(L) 135 - 145 mmol/L 12/02/2022 7:18 AM CDT RH LABORATORY Comment:Reference intervals for this test were updated on 11/06/2022 to more accurately reflect our healthy population. There may be differences in the flagging of prior results with similar values performed with this method. Interpretation of those prior results can be made in the context of the updated reference intervals. Potassium 5.0 3.4 - 5.3 mmol/L 12/02/2022 7:18 AM CDT LABORATORY Chloride 90(L) 98 - 107 mmol/L 12/02/2022 7:18 AM CDT LABORATORY Carbon Dioxide (CO2) 27 22 - 29 mmol/L 12/02/2022 7:18 AM CDT LABORATORY Anion Gap 9 7 - 15 mmol/L 12/02/2022 7:18 AM CDT LABORATORY Urea Nitrogen 53.4(H) 8.0 - 23.0 mg/dL 12/02/2022 7:18 AM CDT LABORATORY Creatinine 4.88(H) 0.51 - 0.95 mg/dL 12/02/2022 7:18 AM CDT LABORATORY GFR Estimate 9(L) >60 mL/min/1. 73m2 12/02/2022 7:18 AM CDT LABORATORY Calcium 8.6(L) 8.8 - 10.2 mg/dL 12/02/2022 7:18 AM CDT LABORATORY Glucose 88 70 - 99 mg/dL 12/02/2022 7:18 AM CDT LABORATORY Blood STRUCTURE OF RIGHT HAND / Unknown Venipuncture / Unknown 12/02/2022 6:39 AM CDT 12/02/2022 6:50 AM CDT Nidia Yanez DO LAB - BLOOD ORDER JOSEFA LABORATORY [facility] Lab [address] [facility] Lab (1st floor, no room number) [place] [address], [facility] [phone] * Glucose by meter (12/02/2022 1:58 AM CDT) [facility] GLUCOSE BY METER POCT 95 70 - 99 mg/dL 12/02/2022 2:07 AM CDT LABORATORY POC Blood, Capillary BLOOD SPECIMEN / Unknown 12/02/2022 1:58 AM CDT 12/02/2022 2:07 AM CDT Stormy Ontiveros MD, MD LAB - [facility] POCT LABORATORY [facility] Lab [address] Lab (1st floor, no room number) [place] [address], [place] [phone] * (ABNORMAL) Glucose by meter (12/01/2022 10:25 PM CDT) GLUCOSE BY METER POCT 284(H) 70 - 99 mg/dL 12/01/2022 10:32 PM CDT LABORATORY POC Blood, Capillary BLOOD SPECIMEN / Unknown 12/01/2022 10:25 PM CDT 12/01/2022 10:32 PM CDT Stormy Ontiveros MD, MD LAB - [facility] POCT Performing Organization Address City/[facility]/ZIP Co de Phone Number LABORATORY [facility] Lab [address] Lab (1st floor, no room number) [place] [address], [place] [phone] * Potassium (12/01/2022 9:56 PM CDT) Potassium 4.9 3.4 - 5.3 mmol/L 12/01/2022 10:54 PM CDT LABORATORY Blood STRUCTURE OF RIGHT UPPER LIMB / Unknown Venipuncture / Unknown 12/01/2022 9:56 PM CDT 12/01/2022 10:05 PM CDT Nidia Yanez DO LAB - BLOOD ORDER JOSEFA [facility] Lab [address] Lab (1st floor, no room number) [place] [address], [place] [phone] * (ABNORMAL) Glucose by meter (12/01/2022 6:33 PM CDT) GLUCOSE BY METER POCT 210(H) 70 - 99 mg/dL 12/01/2022 6:41 PM CDT RH LABORATORY POC Blood, Capillary BLOOD SPECIMEN / Unknown 12/01/2022 6:33 PM CDT 12/01/2022 6:41 PM CDT MD TABITHA Leigh MD - RONNY POCT LABORATORY [facility] Lab [address] Lab (1st floor, no room number) [place] [address], [place] [phone] * (ABNORMAL) Glucose by meter (12/01/2022 12:42 PM CDT) GLUCOSE BY METER POCT 211(H) 70 - 99 mg/dL 12/01/2022 12:48 PM CDT LABORATORY POC Blood, Capillary BLOOD SPECIMEN / Unknown 12/01/2022 12:42 PM CDT 12/01/2022 12:48 PM CDT MD TABITHA Leigh MD - RONNY POCT Performing Organization Address City/[facility]/ZIP Co de Phone Number LABORATORY [facility] [address] Lab (1st floor, no room number) [place] [address], [place] [phone] * Extra Blue Top Tube (LAB USE ONLY) (12/01/2022 7:35 AM CDT) Hold Specimen JIC 12/01/2022 9:02 AM CDT LABORATORY Blood BLOOD SPECIMEN / Unknown Venipuncture / Unknown 12/01/2022 7:35 AM CDT 12/01/2022 7:48 AM CDT Nidia Yanez DO LAB - BLOOD ORDER JOSEFA [facility] Lab [address] Lab (1st floor, no room number) [place] [address], [facility] [phone] * (ABNORMAL) Basic metabolic panel (12/01/2022 7:35 AM CDT) Sodium 127(L) 135 - 145 mmol/L 12/01/2022 8:15 AM CDT LABORATORY Comment:Reference intervals for this test were updated on 11/06/2022 to more accurately reflect our healthy population. There may be differences in the flagging of prior results with similar values performed with this method. Interpretation of those prior results can be made in the context of the updated reference intervals. Potassium 5.7(H) 3.4 - 5.3 mmol/L 12/01/2022 8:15 AM CDT LABORATORY Chloride 93(L) 98 - 107 mmol/L 12/01/2022 8:15 AM CDT LABORATORY Carbon Dioxide (CO2) 26 22 - 29 mmol/L 12/01/2022 8:15 AM CDT LABORATORY Anion Gap 8 7 - 15 mmol/L 12/01/2022 8:15 AM CDT LABORATORY Urea Nitrogen 56.8(H) 8.0 - 23.0 mg/dL 12/01/2022 8:15 AM CDT LABORATORY Creatinine 4.78(H) 0.51 - 0.95 mg/dL 12/01/2022 8:15 AM CDT LABORATORY GFR Estimate 9(L) >60 mL/min/1. 73m2 12/01/2022 8:15 AM CDT LABORATORY Calcium 8.5(L) 8.8 - 10.2 mg/dL 12/01/2022 8:15 AM CDT LABORATORY Glucose 120(H) 70 - 99 mg/dL 12/01/2022 8:15 AM CDT LABORATORY Blood BLOOD SPECIMEN / Unknown Venipuncture / Unknown 12/01/2022 7:35 AM CDT 12/01/2022 7:48 AM CDT Rohini Bradford MD LAB - BLOOD ORDERABL ES LABORATORY [facility] Lab [address] Lab (1st floor, no room number) [place] [address], [facility] [phone] * (ABNORMAL) CBC with platelets (12/01/2022 7:35 AM CDT) WBC Count 11.8(H) 4.0 - 11.0 10e3/uL 12/01/2022 7:52 AM CDT RH LABORATORY RBC Count 2.91(L) 3.80 - 5.20 10e6/uL 12/01/2022 7:52 AM CDT RH LABORATORY Hemoglobin 9.5(L) 11.7 - 15.7 g/dL 12/01/2022 7:52 AM CDT RH LABORATORY Hematocrit 27.8(L) 35.0 - 47.0 % 12/01/2022 7:52 AM CDT RH LABORATORY MCV 96 78 - 100 fL 12/01/2022 7:52 AM CDT RH LABORATORY MCH 32.6 26.5 - 33.0 pg 12/01/2022 7:52 AM CDT RH LABORATORY MCHC 34.2 31.5 - 36.5 g/dL 12/01/2022 7:52 AM CDT RH LABORATORY RDW 14.5 10.0 - 15.0 % 12/01/2022 7:52 AM CDT RH LABORATORY Platelet Count 280 150 - 450 10e3/uL 12/01/2022 7:52 AM CDT RH LABORATORY Blood BLOOD SPECIMEN / Unknown Venipuncture / Unknown 12/01/2022 7:35 AM CDT 12/01/2022 7:48 AM CDT Rohini Bradford MD LAB - BLOOD ORDERABL ES RH LABORATORY [facility] Lab [address] Lab (1st floor, no room number) [place] [address], [facility] [phone] * (ABNORMAL) Vancomycin level (12/01/2022 7:35 AM CDT) Vancomycin 39.2(HH) ug/mL 12/01/2022 8:54 AM CDT RH LABORATORY Comment: Traditional Dosing Therapeutic Range: Trough 10-15 ug/mL Peak 20-40 ug/mL Critical: Greater than 25.0 ug/mL Blood BLOOD SPECIMEN / Unknown Venipuncture / Unknown 12/01/2022 7:35 AM CDT 12/01/2022 7:48 AM CDT Michele Chaudhary MD LAB - BLOOD ORDERABL ES [facility] Lab [address] Lab (1st floor, no room number) [place] [phone], [facility] [phone] * (ABNORMAL) Glucose by meter (11/30/2022 9:53 PM CDT) GLUCOSE BY METER POCT 218(H) 70 - 99 mg/dL 11/30/2022 10:00 PM CDT LABORATORY POC Blood, Capillary BLOOD SPECIMEN / Unknown 11/30/2022 9:53 PM CDT 11/30/2022 10:00 PM CDT Stormy Ontiveros MD, MD LAB - BEAKER POCT Performing Organization Address [facility]/ZIP Co de Phone Number LABORATORY [facility] Lab [address] Lab (1st floor, no room number) [place] [address], [facility] [phone] * Potassium (11/30/2022 7:26 PM CDT) Potassium 5.2 3.4 - 5.3 mmol/L 11/30/2022 8:02 PM CDT LABORATORY Blood STRUCTURE OF RIGHT HAND / Unknown Venipuncture / Unknown 11/30/2022 7:26 PM CDT 11/30/2022 7:32 PM CDT Michele Chaudhary MD LAB - BLOOD ORDERABL ES Performing Organization Address City/[facility]/ZIP Co de Phone Number [facility] Lab [address] Lab (1st floor, no room number) [place] [address] [phone] * Differential Body Fluid (11/30/2022 7:11 PM CDT) % Neutrophils 15 % JENNIFER 11/30/2022 11:22 [...] MD LAB - BODY FLUIDS OR DERABLES [facility] Lab [address] [facility] Lab (1st floor, no room number) [place] [address], [facility] [phone] * Cell Count Body Fluid (11/30/2022 7:11 PM CDT) Color Colorless Colorless, Yellow [facility] 11/30/2022 11:21 PM CDT RH LABORATORY Clarity Clear Clear [facility] 11/30/2022 11:21 PM CDT RH LABORATORY RBC [...] MD LAB - BODY FLUIDS OR DERABLES [facility] Lab [address] Lab (1st floor, no room number) [place] [address], [facility] [phone] * Gram stain (11/30/2022 7:11 PM CDT) Gram Stain Result No organisms seen 11/30/2022 10:58 PM CDT [facility] Gram Stain Result 2+ WBC seen 11/30/2022 10:58 PM CDT [facility] Peritoneal Fluid SPECIMEN FROM PERITONEUM / Unknown Non-blood Collection / Unknown 11/30/2022 7:11 PM CDT 11/30/2022 7:18 PM CDT Michele Chaudhary MD LAB - MICRO GENERAL ORDERABLES [facility]AT[facility] Inf. Diseases Diag. Lab [address] [facility], [address] [address], [facility] [phone] * Peritoneal Fluid Aerobic Bacterial Culture Routine (11/30/2022 7:11 PM CDT) Culture No Growth JENNIFER 12/05/2022 7:27 AM CDT [facility] Peritoneal Fluid SPECIMEN FROM PERITONEUM / Unknown Non-blood Collection / Unknown 11/30/2022 7:11 PM CDT 11/30/2022 7:18 PM CDT Michele Chaudhary MD LAB - MICRO GENERAL ORDERABLES [facility] Inf. Diseases Diag. Lab [address] [facility], [address] [address], [place] [phone] * (ABNORMAL) Glucose by meter (11/30/2022 5:55 PM CDT) GLUCOSE BY METER POCT 132(H) 70 - 99 mg/dL 11/30/2022 6:02 PM CDT LABORATORY POC Blood, Capillary BLOOD SPECIMEN / Unknown 11/30/2022 5:55 PM CDT 11/30/2022 6:02 PM CDT Stormy Ontiveros MD, MD LAB - BEAKER POCT LABORATORY POC [facility] Lab [address] Lab (1st floor, no room number) [place] [address], [facility] [phone] * (ABNORMAL) Wound Aerobic Bacterial Culture Routine (11/30/2022 3:04 PM CDT) Culture 1+ Corynebacterium striatum(A) JENNIFER 12/04/2022 8:08 AM CDT [facility] Comment: Identification obtained by MALDI-TOF mass spectrometry research use only database. Test characteristics determined and verified by the Infectious Diseases Diagnostic Laboratory. Susceptibilities not routinely done, refer to antibiogram to view typical susceptibility profiles Wound ABDOMEN / Unknown Non-blood Collection / Unknown 11/30/2022 3:04 PM CDT 11/30/2022 3:15 PM CDT Narrative [facility] - 12/04/2022 8:08 AM CDT Susceptibility testing requested by Dr Adorno [phone] Organism Antibiotic Method Susceptibility Corynebacterium striatum Penicillin JENNIFER 8 ug/mL: Resistant Corynebacterium striatum Ceftriaxone JENNIFER >256 ug/mL: Resistant Corynebacterium striatum Clindamycin JENNIFER >256 ug/mL: Resistant Corynebacterium striatum Trimethoprim/Mckee lfamethoxaz ole JENNIFER 1.500 ug/mL: Susceptible Corynebacterium striatum Vancomycin JENNIFER 0.5 ug/mL: Susceptible Corynebacterium striatum Doxycycline JENNIFER 16 ug/mL: Resistant Micehle Chaudhary MD LAB - MICRO GENERAL ORDERABLES [facility] Inf. Diseases Diag. Lab [address] [facility], [address] [place] [address], [facility] [phone] * Gram Stain (11/30/2022 3:04 PM CDT) Gram Stain Result No organisms seen 11/30/2022 7:22 PM CDT [facility] Gram Stain Result No white blood cells seen 11/30/2022 7:22 PM CDT [facility] Wound ABDOMEN / Unknown Non-blood Collection / Unknown 11/30/2022 3:04 PM CDT 11/30/2022 3:15 PM CDT Michele Chaudhary MD LAB - MICRO GENERAL ORDERABLES Performing Organization Address [facility] Co de Phone Number [facility]AT[facility] Inf. Diseases Diag. Lab [address] [facility], [address] [address], [facility] [phone] * (ABNORMAL) Glucose by meter (11/30/2022 2:14 PM CDT) GLUCOSE BY METER POCT 256(H) 70 - 99 mg/dL 11/30/2022 2:21 PM CDT RH LABORATORY POC Blood, Capillary BLOOD SPECIMEN / Unknown 11/30/2022 2:14 PM CDT 11/30/2022 2:21 PM CDT Stormy Ontiveros MD, MD LAB - BEAKER POCT RH LABORATORY POC [facility] Lab [address] Lab (1st floor, no room number) [place] [address], [place] [phone] * Potassium (11/30/2022 1:45 PM CDT) Potassium 5.3 3.4 - 5.3 mmol/L 11/30/2022 2:11 PM CDT RH LABORATORY Blood STRUCTURE OF RIGHT HAND / Unknown Venipuncture / Unknown 11/30/2022 1:45 PM CDT 11/30/2022 1:50 PM CDT Rohini Bradford MD LAB - BLOOD ORDERABL ES [facility] Care Lab [address] Lab (1st floor, no room number) [place] [address], [facility] [phone] * (ABNORMAL) Glucose by meter (11/30/2022 12:03 PM CDT) GLUCOSE BY METER POCT 294(H) 70 - 99 mg/dL 11/30/2022 12:10 PM CDT LABORATORY POC Blood, Capillary BLOOD SPECIMEN / Unknown 11/30/2022 12:03 PM CDT 11/30/2022 12:10 PM CDT Stormy Ontiveros MD, MD LAB - BEAKER POCT Performing Organization Address [facility]/ZIP Co de Phone Number [facility] Lab [address] Lab (1st floor, no room number) [place] [address], [facility] [phone] * Extra Red Top Tube (LAB USE ONLY) (11/30/2022 7:23 AM CDT) Hold Specimen JIC 11/30/2022 8:46 AM CDT LABORATORY Blood TOPOGRAPHY UNKNOWN / Unknown Venipuncture / Unknown 11/30/2022 7:23 AM CDT 11/30/2022 7:39 AM CDT Michele Chaudhary MD LAB - BLOOD ORDERABL ES [facility] Lab [address] Lab (1st floor, no room number) [place] [address], [place] [phone] * Extra Blue Top Tube (LAB USE ONLY) (11/30/2022 7:23 AM CDT) Hold Specimen JIC 11/30/2022 8:46 AM CDT RH LABORATORY Blood TOPOGRAPHY UNKNOWN / Unknown Venipuncture / Unknown 11/30/2022 7:23 AM CDT 11/30/2022 7:39 AM CDT Michele Chaudhary MD LAB - BLOOD ORDERABL ES RH LABORATORY [facility] Lab [address] Lab (1st floor, no room number) [place] [address], [facility] [phone] * (ABNORMAL) Comprehensive metabolic panel (11/30/2022 7:23 AM CDT) Sodium 123(L) 135 - 145 mmol/L 11/30/2022 8:39 AM CDT RH LABORATORY Comment:Reference intervals for this test were updated on 11/06/2022 to more accurately reflect our healthy population. There may be differences in the flagging of prior results with similar values performed with this method. Interpretation of those prior results can be made in the context of the updated reference intervals. Potassium 5.8(H) 3.4 - 5.3 mmol/L 11/30/2022 8:39 AM CDT RH LABORATORY Carbon Dioxide (CO2) 25 22 - 29 mmol/L 11/30/2022 8:39 AM CDT RH LABORATORY Anion Gap 8 7 - 15 mmol/L 11/30/2022 8:39 AM CDT RH LABORATORY Urea Nitrogen 58.9(H) 8.0 - 23.0 mg/dL 11/30/2022 8:39 AM CDT RH LABORATORY Creatinine 4.78(H) 0.51 - 0.95 mg/dL 11/30/2022 8:39 AM CDT RH LABORATORY GFR Estimate 9(L) >60 mL/min/1. 73m2 11/30/2022 8:39 AM CDT RH LABORATORY Calcium 8.5(L) 8.8 - 10.2 mg/dL 11/30/2022 8:39 AM CDT RH LABORATORY Chloride 90(L) 98 - 107 mmol/L 11/30/2022 8:39 AM CDT RH LABORATORY Glucose 71 70 - 99 mg/dL 11/30/2022 8:39 AM CDT RH LABORATORY Alkaline Phosphatase 84 35 - 104 U/L 11/30/2022 8:39 AM CDT RH LABORATORY AST 25 0 - 45 U/L 11/30/2022 8:39 AM CDT RH LABORATORY Comment:Reference intervals for this test were updated on 07/23/2022 to more accurately reflect our healthy population. There may be differences in the flagging of prior results with similar values performed with this method. Interpretation of those prior results can be made in the context of the updated reference intervals. ALT 15 0 - 50 U/L 11/30/2022 8:39 AM CDT RH LABORATORY Comment:Reference intervals for this test were updated on 07/23/2022 to more accurately reflect our healthy population. There may be differences in the flagging of prior results with similar values performed with this method. Interpretation of those prior results can be made in the context of the updated reference intervals. Protein Total 5.9(L) 6.4 - 8.3 g/dL 11/30/2022 8:39 AM CDT RH LABORATORY Albumin 2.5(L) 3.5 - 5.2 g/dL 11/30/2022 8:39 AM CDT RH LABORATORY Bilirubin Total <0.2 <=1.2 mg/dL 11/30/2022 8:39 AM CDT RH LABORATORY Blood TOPOGRAPHY UNKNOWN / Unknown Venipuncture / Unknown 11/30/2022 7:23 AM CDT 11/30/2022 7:39 AM CDT Rohini Bradford MD LAB - BLOOD ORDERABL ES RH LABORATORY [facility] Lab [address] Lab (1st floor, no room number) [place] [address], [facility] [phone] * (ABNORMAL) CBC with platelets (11/30/2022 7:23 AM CDT) WBC Count 9.5 4.0 - 11.0 10e3/uL 11/30/2022 7:46 AM CDT RH LABORATORY RBC Count 3.11(L) 3.80 - 5.20 10e6/uL 11/30/2022 7:46 AM CDT RH LABORATORY Hemoglobin 10.0(L) 11.7 - 15.7 g/dL 11/30/2022 7:46 AM CDT RH LABORATORY Hematocrit 29.9(L) 35.0 - 47.0 % 11/30/2022 7:46 AM CDT RH LABORATORY MCV 96 78 - 100 fL 11/30/2022 7:46 AM CDT RH LABORATORY MCH 32.2 26.5 - 33.0 pg 11/30/2022 7:46 AM CDT RH LABORATORY MCHC 33.4 31.5 - 36.5 g/dL 11/30/2022 7:46 AM CDT RH LABORATORY RDW 14.8 10.0 - 15.0 % 11/30/2022 7:46 AM CDT RH LABORATORY Platelet Count 267 150 - 450 10e3/uL 11/30/2022 7:46 AM CDT RH LABORATORY Blood TOPOGRAPHY UNKNOWN / Unknown Venipuncture / Unknown 11/30/2022 7:23 AM CDT 11/30/2022 7:39 AM CDT Rohini Bradford MD LAB - BLOOD ORDERABL ES [facility] Lab [address] Lab (1st floor, no room number) [place] [address], [facility] [phone] * Glucose by meter (11/30/2022 7:01 AM CDT) [facility] GLUCOSE BY METER POCT 88 70 - 99 mg/dL 11/30/2022 7:08 AM CDT RH LABORATORY POC Blood, Capillary BLOOD SPECIMEN / Unknown 11/30/2022 7:01 AM CDT 11/30/2022 7:08 AM CDT Stormy Ontiveros MD, MD LAB - BEAKER POCT LABORATORY [facility] Lab [address] Lab (1st floor, no room number) [place] [address], [place] [phone] * (ABNORMAL) Glucose by meter (11/30/2022 2:12 AM CDT) GLUCOSE BY METER POCT 109(H) 70 - 99 mg/dL 11/30/2022 2:22 AM CDT RH LABORATORY POC Blood, Capillary BLOOD SPECIMEN / Unknown 11/30/2022 2:12 AM CDT 11/30/2022 2:22 AM CDT Stormy Ontiveros MD, MD LAB - [facility] POCT LABORATORY [facility] [address] Lab (1st floor, no room number) [place] [address], [place] [phone] * (ABNORMAL) Glucose by meter (11/29/2022 9:53 PM CDT) GLUCOSE BY METER POCT 233(H) 70 - 99 mg/dL 11/29/2022 10:00 PM CDT LABORATORY POC Blood, Capillary BLOOD SPECIMEN / Unknown 11/29/2022 9:53 PM CDT 11/29/2022 10:00 PM CDT Stormy Ontiveros MD, MD LAB - [facility] POCT LABORATORY [facility] Lab [address] Lab (1st floor, no room number) [place] [address], [place] [phone] * (ABNORMAL) Glucose by meter (11/29/2022 5:10 PM CDT) GLUCOSE BY METER POCT 156(H) 70 - 99 mg/dL 11/29/2022 5:17 PM CDT RH LABORATORY POC Blood, Capillary BLOOD SPECIMEN / Unknown 11/29/2022 5:10 PM CDT 11/29/2022 5:17 PM CDT Stormy Ontiveros MD, MD [facility] - [facility] POCT LABORATORY [facility] [address] Lab (1st floor, no room number) [place] [address], [facility] [phone] * XR Chest Port 1 View (11/29/2022 4:45 PM CDT) Anatomical Region Laterality Modality Chest Digital Radiogra phy 11/29/2022 4:45 PM CDT Impressions 11/29/2022 8:30 PM CDT IMPRESSION: Negative chest. Narrative 11/29/2022 8:30 PM CDT EXAM: XR CHEST PORT 1 VIEW LOCATION: [facility] DATE: 11/29/2022 INDICATION: shortness of breath COMPARISON: Chest radiograph 11/25/2022. Procedure Note Robin Abreu MD - 11/29/2022 EXAM: XR CHEST PORT 1 VIEW LOCATION: [facility] DATE: 11/29/2022 INDICATION: shortness of breath COMPARISON: Chest radiograph 11/25/2022. IMPRESSION: Negative chest. Rohini Bradford MD IMG DIAGNOSTIC IMAGI NG ORDERABLES * (ABNORMAL) Peritoneal Fluid Aerobic Bacterial Culture Routine (11/29/2022 3:24 PM CDT) Culture 4+ Corynebacterium striatum(A) JENNIFER 12/02/2022 7:53 AM CDT [facility] Comment: Identification obtained by MALDI-TOF mass spectrometry research use only database. Test characteristics determined and verified by the Infect[facility] Diseases [facility]. Susceptibilities not routinely done, refer to antibiogram to view typical susceptibility profiles Culture Isolated in broth only Staphylococcus epidermidis(A) JENNIFER 12/02/2022 7:53 AM CDT [facility] Comment: On day 1 of incubation Susceptibilities not routinely done, refer to antibiogram to view typical susceptibility profiles Peritoneal Fluid SPECIMEN FROM PERITONEUM / Unknown Non-blood Collection / Unknown 11/29/2022 3:24 PM CDT 11/29/2022 3:24 PM CDT Michele Chaudhary MD LAB - MICRO GENERAL ORDERABLES [facility] Inf. Diseases Diag. Lab [address] [facility], [address] [place] [address], [place] [phone] * Differential Body Fluid (11/29/2022 3:23 PM CDT) % Neutrophils 21 % JENNIFER 11/29/2022 5:03 PM CDT [facility] LABORATORY % Lymphocytes 8 % JENNIFER 11/29/2022 5:03 PM CDT [facility] % Monocyte/Macroph ages 69 % JENNIFER 11/29/2022 5:03 PM CDT [facility] LAB[facility] % Lining Cells 2 % JENNIFER 11/29/2022 5:03 PM CDT [facility] LAB[facility] Absolute Neutrophils, Body Fluid 88.0 /uL JENNIFER 11/29/2022 5:03 PM CDT [facility] LAB[facility] Peritoneal Fluid SPECIMEN FROM PERITONEUM / Unknown Non-blood Collection / Unknown 11/29/2022 3:23 PM CDT 11/29/2022 3:23 PM CDT Narrative [facility] LABORATORY - 11/29/2022 5:03 PM CDT No reference ranges have been established. This result should be interpreted in the context of the patient's clinical condition and compared to simultaneous measurement in the patient's blood. Michele Chaudhary MD LAB - BODY FLUIDS OR DERABLES LABORATORY [facility] [address] Lab (1st floor, no room number) [place] [address], [place] [phone] * Cell Count Body Fluid (11/29/2022 3:23 PM CDT) Color Yellow Colorless, Yellow JENNIFER 11/29/2022 4:59 PM CDT [facility] LAB[facility] Clarity Clear Clear JENNIFER 11/29/2022 4:59 PM CDT [facility] LAB[facility] Cell Count Fluid Source Peritoneum 11/29/2022 4:59 PM CDT [facility] LAB[facility] Total Nucleated Cells 419 /uL 11/29/2022 4:59 PM CDT LABORATORY Peritoneal Fluid SPECIMEN FROM PERITONEUM / Unknown Non-blood Collection / Unknown 11/29/2022 3:23 PM CDT 11/29/2022 3:23 PM CDT Narrative LABORATORY - 11/29/2022 4:59 PM CDT No reference ranges have been established. ??This result should be interpreted in the context of the patient's clinical condition and compared to simultaneous measurement in the patient's blood. ?? Michele Chaudhary MD LAB - BODY FLUIDS OR DERABLES [facility] LABORATORY [facility] [address] Lab (1st floor, no room number) [place] [address], [facility] [phone] * (ABNORMAL) Gram stain (11/29/2022 3:23 PM CDT) Gram Stain Result 1+ Gram positive bacilli(A) 11/29/2022 6:25 PM CDT [facility] Gram Stain Result 1+ WBC seen(A) 11/29/2022 6:25 PM CDT [facility] Peritoneal Fluid SPECIMEN FROM PERITONEUM / Unknown Non-blood Collection / Unknown 11/29/2022 3:23 PM CDT 11/29/2022 3:24 PM CDT Michele Chaudhary MD LAB - MICRO GENERAL ORDERABLES [facility]AT[facility] Inf. Diseases Diag. Lab [address] [facility], [address] [place] [address], [place] [phone] * (ABNORMAL) Glucose by meter (11/29/2022 10:51 AM CDT) GLUCOSE BY METER POCT 221(H) 70 - 99 mg/dL 11/29/2022 10:58 AM CDT [facility] LAB[facility]ATORY POC Blood, Capillary BLOOD SPECIMEN / Unknown 11/29/2022 10:51 AM CDT 11/29/2022 10:58 AM CDT Stormy Ontiveros MD, MD [facility] Lab [address] [facility] Lab (1st floor, no room number) [place] [address], [facility] [phone] * ECHO COMPLETE (11/29/2022 9:58 AM CDT) LVEF 75-80% CARDIOLOGY RESULTS Anatomical Region Laterality Modality Echocardiography 11/29/2022 9:19 AM CDT Narrative 11/29/2022 10:40 AM CDT [id number]^[id number]^JOSHUA [facility] Echocardiography Laboratory [address] [place] [address] Name: MAALCHI MARR : 1945 Study Date: 11/29/2022 09:19 AM Age: 77 yrs Gender: Female Patient Location: [facility] Reason For Study: [facility] Ordering Physician: STORMY ONTIVEROS Referring Physician: Man Adan Performed By: Natacha Jimenes BSA: 1.4 m2 [...] Doppler Measurements & Calculations MV E max madi: 72.5 cm/sec MV A max madi: 104.9 cm/sec MV E/A: 0.69 MV max P.4 mmHg MV mean P.7 mmHg MV V2 VTI: 31.2 cm MV dec slope: 262.6 cm/sec2 MV dec time: 0.31 sec PA V2 max: 105.4 cm/sec PA max P.4 mmHg PA acc time: 0.10 sec E/E' av.2 Lateral E/e': 7.7 Medial E/e': 10.7 RV S Madi: 16.5 cm/sec Report approved by: Todd Dunaway 11/29/2022 10:40 AM Procedure Note Michael Atwood MD - 11/29/2022 [id number]^RAMA^JOSHUA [facility] Echocardiography Laboratory [address] [place], [place] [id number] Name: MALACHI MARR : 1945 Study Date: 11/29/2022 09:19 AM Age: 77 yrs Gender: Female Patient Location: [facility] Reason For Study: SOB Ordering Physician: STORMY ONTIVEROS Referring Physician: Man Adan Performed By: Natacha Jimenes BSA: 1.4 m2 [...] Doppler Measurements & Calculations MV E max madi: 72.5 cm/sec MV A max madi: 104.9 cm/sec MV E/A: 0.69 MV max P.4 mmHg MV mean P.7 mmHg MV V2 VTI: 31.2 cm MV dec slope: 262.6 cm/sec2 MV dec time: 0.31 sec PA V2 max: 105.4 cm/sec PA max P.4 mmHg PA acc time: 0.10 sec E/E' av.2 Lateral E/e': 7.7 Medial E/e': 10.7 RV S Madi: 16.5 cm/sec Report approved by: Todd Dunaway [...] MICRO GENERA L ORDERABLES [facility] Inf. Diseases Diag. Lab [address] [facility], [address] [place] [address], [place] [phone] * Glucose by meter (11/29/2022 8:38 AM CDT) GLUCOSE BY METER POCT 97 70 - 99 mg/dL 11/29/2022 8:51 AM CDT LABORATORY POC Blood, Capillary BLOOD SPECIMEN / Unknown 11/29/2022 8:38 AM CDT 11/29/2022 8:51 AM CDT Stormy Ontiveros MD, MD LAB - BEAKER POCT LABORATORY [facility] [address] Lab (1st floor, no room number) [place] [address], [place] [phone] * (ABNORMAL) Glucose by meter (11/29/2022 7:50 AM CDT) GLUCOSE BY METER POCT 59(L) 70 - 99 mg/dL 11/29/2022 7:59 AM CDT LABORATORY POC Blood, Capillary BLOOD SPECIMEN / Unknown 11/29/2022 7:50 AM CDT 11/29/2022 7:59 AM CDT Stormy Ontiveros MD, MD LAB - BEAKER POCT LABORATORY [facility] [address] Lab (1st floor, no room number) [place] [address], [place] [phone] * Hepatitis B Surface Antibody (11/29/2022 6:28 AM CDT) Hepatitis B Surface Antibody Instrument Value 10.65 <8.00 m[IU]/mL 11/29/2022 8:54 PM CDT SPECIALTY CORE/PROT/EN DO Hepatitis B Surface Antibody Indeterminate 11/29/2022 8:54 PM CDT SPECIALTY CORE/PROT/EN DO Comment:Unable to determine if anti-HBs (hepatitis B surface antibody) is present at levels consistent with immunity when the value is between 8.00 and 11.99 mIU/mL. Blood STRUCTURE OF RIGHT HAND / Unknown Venipuncture / Unknown 11/29/2022 6:28 AM CDT 11/29/2022 6:40 AM CDT Michele Chaudhary MD LAB - BLOOD ORDERABL ES Performing Organization Address City/[facility]/ZIP Co de Phone Number SPECIALTY CORE/PROT/ENDO Specialty Core/Prot/Endo [address] [facility], [address] [phone] * Hepatitis B surface antigen (11/29/2022 6:28 AM CDT) Hepatitis B Surface Antigen Nonreactive Nonreactive 11/29/2022 8:04 PM CDT SPECIALTY CORE/PROT/EN DO Blood STRUCTURE OF RIGHT HAND / Unknown Venipuncture / Unknown 11/29/2022 6:28 AM CDT 11/29/2022 6:40 AM CDT Michele Chaudhary MD LAB - BLOOD ORDERABL ES Performing Organization Address City/State/[facility] Co de Phone Number SPECIALTY CORE/PROT/ENDO Specialty Core/Prot/Endo [address] [facility], [address] [phone] * (ABNORMAL) Basic metabolic panel (11/29/2022 6:28 AM CDT) Sodium 129(L) 135 - 145 mmol/L 11/29/2022 7:07 AM CDT LABORATORY Comment:Reference intervals for this test were updated on 11/06/2022 to more accurately reflect our healthy population. There may be differences in the flagging of prior results with similar values performed with this method. Interpretation of those prior results can be made in the context of the updated reference intervals. Potassium 5.2 3.4 - 5.3 mmol/L 11/29/2022 7:07 AM CDT LABORATORY Chloride 92(L) 98 - 107 mmol/L 11/29/2022 7:07 AM CDT LABORATORY Carbon Dioxide (CO2) 28 22 - 29 mmol/L 11/29/2022 7:07 AM CDT LABORATORY Anion Gap 9 7 - 15 mmol/L 11/29/2022 7:07 AM CDT LABORATORY Urea Nitrogen 67.5(H) 8.0 - 23.0 mg/dL 11/29/2022 7:07 AM CDT LABORATORY Creatinine 4.54(H) 0.51 - 0.95 mg/dL 11/29/2022 7:07 AM CDT LABORATORY GFR Estimate 10(L) >60 mL/min/1. 73m2 11/29/2022 7:07 AM CDT LABORATORY Calcium 8.5(L) 8.8 - 10.2 mg/dL 11/29/2022 7:07 AM CDT LABORATORY Glucose 66(L) 70 - 99 mg/dL 11/29/2022 7:07 AM CDT LABORATORY Blood STRUCTURE OF RIGHT HAND / Unknown Venipuncture / Unknown 11/29/2022 6:28 AM CDT 11/29/2022 6:40 AM CDT Stormy Ontiveros MD, LAB - BLOOD ORDERA BLES LABORATORY [facility] [address] Lab (1st floor, no room number) [place] [address], [facility] [phone] * (ABNORMAL) Glucose (11/29/2022 6:28 AM CDT) Glucose 66(L) 70 - 99 mg/dL 11/29/2022 7:07 AM CDT LABORATORY Blood STRUCTURE OF RIGHT HAND / Unknown Venipuncture / Unknown 11/29/2022 6:28 AM CDT 11/29/2022 6:40 AM CDT Rohini Bradford MD LAB - BLOOD ORDERABL ES [facility] Lab [address] Lab (1st floor, no room number) [place] [address], [facility] [phone] * (ABNORMAL) Troponin T, High Sensitivity (11/29/2022 6:28 AM CDT) Troponin T, High Sensitivity 60(H) <=14 ng/L 11/29/2022 7:07 AM CDT LABORATORY Comment: Either a High Sensitivity [...] follow-up, or urgent outpatient provocative testing. Blood STRUCTURE OF RIGHT HAND / Unknown Venipuncture / Unknown 11/29/2022 6:28 AM CDT 11/29/2022 6:40 AM CDT Stormy Ontiveros MD, MD LAB - BLOOD ORDERA BLES Performing Organization Address [facility]/ZIP Co de Phone Number [facility] Lab [address] Lab (1st floor, no room number) [place] [address], [facility] [phone] * Glucose by meter (11/29/2022 5:53 AM CDT) GLUCOSE BY METER POCT 78 70 - 99 mg/dL 11/29/2022 6:00 AM CDT LABORATORY POC Blood, Capillary BLOOD SPECIMEN / Unknown 11/29/2022 5:53 AM CDT 11/29/2022 6:00 AM CDT Stormy Ontiveros MD, MD LAB - [facility] POCT LABORATORY [facility] [address] Lab (1st floor, no room number) [place] [phone], [facility] [phone] * (ABNORMAL) Glucose by meter (11/29/2022 4:26 AM CDT) GLUCOSE BY METER POCT 254(H) 70 - 99 mg/dL 11/29/2022 4:33 AM CDT RH LABORATORY POC Blood, Capillary BLOOD SPECIMEN / Unknown 11/29/2022 4:26 AM CDT 11/29/2022 4:33 AM CDT Stormy Ontiveros MD, MD LAB - [facility] POCT LABORATORY [facility] [address] Lab (1st floor, no room number) [place] [address], [facility] [phone] * (ABNORMAL) Glucose by meter (11/29/2022 3:01 AM CDT) GLUCOSE BY METER POCT 165(H) 70 - 99 mg/dL 11/29/2022 3:08 AM CDT LABORATORY POC Blood, venous BLOOD SPECIMEN / Unknown 11/29/2022 3:01 AM CDT 11/29/2022 3:08 AM CDT Stormy Ontiveros MD, MD LAB - [facility] POCT LABORATORY [facility] [address] Lab (1st floor, no room number) [place] [phone], [facility] [phone] * (ABNORMAL) CBC with platelets and differential (11/29/2022 2:13 AM CDT) WBC Count 8.9 4.0 - 11.0 10e3/uL 11/29/2022 2:55 AM CDT RH LABORATORY RBC Count 3.61(L) 3.80 - 5.20 10e6/uL 11/29/2022 2:55 AM CDT RH LABORATORY Hemoglobin 10.9(L) 11.7 - 15.7 g/dL 11/29/2022 2:55 AM CDT RH LABORATORY Hematocrit 33.5(L) 35.0 - 47.0 % 11/29/2022 2:55 AM CDT RH LABORATORY MCV 93 78 - 100 fL 11/29/2022 2:55 AM CDT RH LABORATORY MCH 30.2 26.5 - 33.0 pg 11/29/2022 2:55 AM CDT RH LABORATORY MCHC 32.5 31.5 - 36.5 g/dL 11/29/2022 2:55 AM CDT RH LABORATORY RDW 14.7 10.0 - 15.0 % 11/29/2022 2:55 AM CDT RH LABORATORY Platelet Count 258 150 - 450 10e3/uL 11/29/2022 2:55 AM CDT [facility] LABORATORY % Neutrophils 83 % 11/29/2022 2:55 AM CDT [facility] LABORATORY % Lymphocytes 7 % 11/29/2022 2:55 AM CDT RH LABORATORY % Monocytes 7 % 11/29/2022 2:55 AM CDT RH LABORATORY Mids % (Monos, Eos, Basos) JENNIFER 11/29/2022 2:55 AM CDT RH LABORATORY % Eosinophils 2 % 11/29/2022 2:55 AM CDT RH LABORATORY % Basophils 0 % 11/29/2022 2:55 AM CDT RH LABORATORY % Immature Granulocytes 1 % 11/29/2022 2:55 AM CDT RH LABORATORY NRBCs per 100 WBC 0 <1 /100 023 2:55 AM CDT RH LABORATORY Absolute Neutrophils 7.4 1.6 - 8.3 10e3/uL 11/29/2022 2:55 AM CDT RH LABORATORY Absolute Lymphocytes 0.6(L) 0.8 - 5.3 10e3/uL 11/29/2022 2:55 AM CDT RH LABORATORY Absolute Monocytes 0.7 0.0 - 1.3 10e3/uL 11/29/2022 2:55 AM CDT RH LABORATORY Mids Abs (Monos, Eos, Basos) JENNIFER 11/29/2022 2:55 AM CDT RH LABORATORY Absolute Eosinophils 0.1 0.0 - 0.7 10e3/uL 11/29/2022 2:55 AM CDT RH LABORATORY Absolute Basophils 0.0 0.0 - 0.2 10e3/uL 11/29/2022 2:55 AM CDT RH LABORATORY Absolute Immature Granulocytes 0.1 <=0.4 10e3/uL 11/29/2022 2:55 AM CDT RH LABORATORY Absolute NRBCs 0.0 10e3/uL 11/29/2022 2:55 AM CDT RH LABORATORY Blood STRUCTURE OF RIGHT HAND / Unknown Venipuncture / Unknown 11/29/2022 2:13 AM CDT 11/29/2022 2:20 AM CDT Stormy Ontiveros MD, LAB - BLOOD ORDERA BLES LABORATORY [facility] [address] Lab (1st floor, no room number) [place] [address] [phone] * (ABNORMAL) Procalcitonin (11/29/2022 2:13 AM CDT) Procalcitonin 0.69(H) <0.05 ng/mL 11/29/2022 2:49 AM CDT RH LABORATORY Comment: Interpretation and Recommendations <0.05 ng/mL [...] Ontiveros MD, LAB - BLOOD ORDERA BLES LABORATORY [facility] [address] [facility] Lab (1st floor, no room number) [place] [address], [facility] [phone] * (ABNORMAL) Troponin T, High Sensitivity (11/29/2022 2:13 AM CDT) [facility] Troponin T, High Sensitivity 53(H) <=14 ng/L 11/29/2022 2:49 AM CDT LABORATORY Comment: Either a High Sensitivity [...] follow-up, or urgent outpatient provocative testing. Blood STRUCTURE OF RIGHT HAND / Unknown Venipuncture / Unknown 11/29/2022 2:13 AM CDT 11/29/2022 2:20 AM CDT Stormy Ontiveros MD, MD LAB - BLOOD ORDERA BLES Performing Organization Address [facility]/ZIP Co de Phone Number [facility] Lab [address] Lab (1st floor, no room number) [place] [address], [facility] [phone] * (ABNORMAL) Nt probnp inpatient (11/29/2022 2:13 AM CDT) [facility] N terminal Pro BNP Inpatient 2,017(H) 0 [...] Ontiveros MD, MD LAB - BLOOD ORDERA BLES Performing Organization Address City/[facility]/ZIP Co de Phone Number [facility] Lab [address] Lab (1st floor, no room number) [place] [address], [facility] [phone] * (ABNORMAL) Basic metabolic panel (11/29/2022 2:13 AM CDT) Sodium 128(L) 135 - 145 mmol/L 11/29/2022 2:43 AM CDT RH LABORATORY Comment:Reference intervals for this test were updated on 11/06/2022 to more accurately reflect our healthy population. There may be differences in the flagging of prior results with similar values performed with this method. Interpretation of those prior results can be made in the context of the updated reference intervals. Potassium 5.6(H) 3.4 - 5.3 mmol/L 11/29/2022 2:43 AM CDT LABORATORY Chloride 93(L) 98 - 107 mmol/L 11/29/2022 2:43 AM CDT RH LABORATORY Carbon Dioxide (CO2) 24 22 - 29 mmol/L 11/29/2022 2:43 AM CDT LABORATORY Anion Gap 11 7 - 15 mmol/L 11/29/2022 2:43 AM CDT LABORATORY Urea Nitrogen 63.2(H) 8.0 - 23.0 mg/dL 11/29/2022 2:43 AM CDT RH LABORATORY Creatinine 4.58(H) 0.51 - 0.95 mg/dL 11/29/2022 2:43 AM CDT LABORATORY GFR Estimate 9(L) >60 mL/min/1. 73m2 11/29/2022 2:43 AM CDT LABORATORY Calcium 8.7(L) 8.8 - 10.2 mg/dL 11/29/2022 2:43 AM CDT LABORATORY Glucose 93 70 - 99 mg/dL 11/29/2022 2:43 AM CDT LABORATORY Blood STRUCTURE OF RIGHT HAND / Unknown Venipuncture / Unknown 11/29/2022 2:13 AM CDT 11/29/2022 2:20 AM CDT Stormy Ontiveros MD, MD LAB - BLOOD ORDERA BLES LABORATORY [facility] [address] [facility] Lab (1st floor, no room number) [place] [address], [facility] [phone] * Glucose by meter (11/29/2022 2:00 AM CDT) GLUCOSE BY METER POCT 88 70 - 99 mg/dL 11/29/2022 2:07 AM CDT LABORATORY POC Blood, Capillary BLOOD SPECIMEN / Unknown 11/29/2022 2:00 AM CDT 11/29/2022 2:07 AM CDT Stormy Ontiveros MD, MD LAB - [facility] POCT LABORATORY [facility] [address] Lab (1st floor, no room number) [place] [address], [facility] [phone] * (ABNORMAL) Glucose by meter (11/29/2022 1:20 AM CDT) GLUCOSE BY METER POCT 63(L) 70 - 99 mg/dL 11/29/2022 1:27 AM CDT LABORATORY POC Blood, Capillary BLOOD SPECIMEN / Unknown 11/29/2022 1:20 AM CDT 11/29/2022 1:27 AM CDT Stormy Ontiveros MD, MD LAB - [facility] POCT LABORATORY [facility] Lab [address] Lab (1st floor, no room number) [place] [address], [facility] [phone] * EKG 12-lead, tracing only (11/29/2022 12:43 AM CDT) Systolic Blood Pressure mmHg RADIOLOGY RESULTS Diastolic Blood Pressure mmHg RADIOLOGY RESULTS Ventricular Rate 63 BPM RAD IOLOGY RESULTS Atrial Rate 63 BPM RADIOLOG Y RESULTS [place] Interval 180 ms RADIOLOG Y RESULTS QRS Duration 74 ms RADIOLO GY RESULTS QT 390 ms RADIOLOGY RESULTS QTc 399 ms RADIOLOGY RESULTS P Floweree 79 degrees RADIOLOGY RESULTS R AXIS 18 degrees RADIOLOGY RESULTS T Floweree 82 degrees RADIOLOGY RESULTS Interpretation ECG Sinus rhythm Normal ECG Confirmed by MD ESPARZA STEVEN ([id number]), script editor VASILIY OLIVIER ([id number]) on 11/30/2022 7:08:46 AM RADIOLOGY RESULTS 11/29/2022 12:4 3 AM CDT 11/30/2022 7:08 AM CDT Stormy Ontiveros MD, MD ECG ORDERABLES RADIOLOGY RESULTS documented in this encounter Visit Diagnoses Diagnosis SOB (shortness of breath)- Primary Shortness of breath Abdominal infection (H) Unspecified peritonitis documented in this encounter Admitting Diagnoses Diagnosis SOB (shortness of breath) Shortness of breath documented in this encounter Administered Medications Inactive Administered Medications - up to 3 most recent administrations Medication Order MAR Action Action Date Dose Rate Site - MEDICATION INSTRUCTIONS for Dialysis Patients - SEE ADMIN INSTRUCTIONS, Starting on 12/03/22 at 1334, Until Gemma 12/06/22 at 1643, Do not give any medication that may affect blood pressure or volume before dialysis. The following medications may be removed by dialysis and should be given after dialysis: acetaminophen, aspirin, fluconazole, hydromorphone, oxycodone, vancomycin acetaminophen (TYLENOL) Suppository 650 mg 650 mg (14.7 mg/kg), Rectal, EVERY 6 HOURS PRN, mild pain, other, and adjunct with moderate or severe pain or per patient request, Starting on Gemma 11/29/22 at 0024, Alternate with ibuprofen if ordered. Maximum acetaminophen dose from all sources = 75 mg/kg/day not to exceed 4 grams/day. acetaminophen (TYLENOL) tablet 650 mg 650 mg (14.7 mg/kg), Oral, EVERY 6 HOURS PRN, mild pain, other, and adjunct with moderate or severe pain or per patient request, Starting on Gemma 11/29/22 at 0024, Alternate with ibuprofen if ordered. Maximum acetaminophen dose from all sources = 75 mg/kg/day not to exceed 4 grams/day. $Given 12/06/2022 2:25 PM CDT 650 mg $Given 12/05/2022 8:13 PM CDT 650 mg $Given 12/05/2022 9:54 AM CDT 650 mg albuterol (PROVENTIL HFA/VENTOLIN HFA) inhaler 2 puff, Inhalation, 4 TIMES DAILY RT, First dose (after last modification) on Gemma 11/29/22 at 0900, Check the dose counter on the inhaler to ensure there are doses remaining before administering. Prime by spraying into the air 4 times prior to first use and if not used within 2 weeks. $Given 11/29/2022 8:58 PM CDT 2 puffs $Given 11/29/2022 3:29 PM CDT 2 puffs $Given 11/29/2022 12:02 PM CDT 2 puffs albuterol (PROVENTIL HFA/VENTOLIN HFA) inhaler 2 puff, Inhalation, EVERY 2 HOURS PRN, wheezing, Starting on Sat11/30/22 at 0830, Check the dose counter on the inhaler to ensure there are doses remaining before administering. Prime by spraying into the air 4 times prior to first use and if not used within 2 weeks. $Given 12/03/2022 1:11 AM CDT 2 puffs $Given 12/01/2022 11:51 AM CDT 2 puffs amLODIPine (NORVASC) tablet 10 mg 10 mg (0.227 mg/kg), Oral, 2 TIMES DAILY, First dose on [facility] 11/29/22 at 1100 $Given 12/06/2022 12:15 PM CDT 10 mg $Given 12/05/2022 8:13 PM CDT 10 mg $Given 12/05/2022 7:54 AM CDT 10 mg aspirin EC tablet 81 mg 81 mg (1.84 mg/kg), Oral, DAILY, First dose on [facility] 11/29/22 at 1100, DO NOT CRUSH. $Given 12/06/2022 7:47 AM CDT 81 mg $Given 12/05/2022 7:51 AM CDT 81 mg $Given 12/04/2022 10:41 AM CDT 81 mg calcium acetate (PHOSLO) capsule 667 mg 667 mg (15.1 mg/kg), Oral, 3 TIMES DAILY WITH MEALS, First dose on [facility] 11/29/22 at 1200, Best if given with meals. $Given 12/06/2022 12:15 PM CDT 667 mg $Given 12/06/2022 7:47 AM CDT 667 mg $Given 12/05/2022 5:22 PM CDT 667 mg carboxymethylcellulose PF (REFRESH PLUS) 0.5 % ophthalmic solution 1 drop 1 drop, Left Eye, 4 TIMES DAILY, First dose on [facility] 11/29/22 at 1200 $Given 12/06/2022 12:05 PM CDT 1 drop $Given 12/06/2022 7:47 AM CDT 1 drop $Given 12/05/2022 8:12 PM CDT 1 drop cefTRIAXone (ROCEPHIN) 2 g vial to attach to NS 100 ml bag for ADULTS or NS 50 ml bag for PEDS Routine, 2 g (0.0454 g/kg), Intravenous, ONCE, On Gemma 11/29/22 at 1600, For 1 dose, Indications: Intra-Abdominal Infection $New Bag 11/29/2022 4:14 PM CDT 2 g cefTRIAXone (ROCEPHIN) 2 g vial to attach to NS 100 ml bag for ADULTS or NS 50 ml bag for PEDS Routine, 2 g (0.046 g/kg), Intravenous, ONCE, On Sat11/30/22 at 1630, For 1 dose, Indications: Intra-Abdominal Infection $New Bag 11/30/2022 6:57 PM CDT 2 g cetirizine (zyrTEC) tablet 10 mg 10 mg (0.227 mg/kg), Oral, DAILY, First dose on [facility] 11/29/22 at 1100 $Given 12/06/2022 7:47 AM CDT 10 mg $Given 12/05/2022 7:53 AM CDT 10 mg $Given 12/04/2022 10:43 AM CDT 10 mg cloNIDine (CATAPRES) tablet 0.2 mg 0.2 mg, Oral, EVERY MORNING, First dose on [facility] 11/29/22 at 1100 $Given 12/02/2022 9:23 AM CDT 0.2 mg $Given 12/01/2022 9:09 AM CDT 0.2 mg $Given 11/30/2022 8:36 AM CDT 0.2 mg cloNIDine (CATAPRES) tablet 0.2 mg 0.2 mg (0.0048 mg/kg), Oral, EVERY EVENING, First dose (after last modification) on Sat12/02/22 at 2000 $Given 12/05/2022 8:12 PM CDT 0.2 mg $Given 12/04/2022 8:32 PM CDT 0.2 mg $Given 12/03/2022 8:30 PM CDT 0.2 mg cloNIDine (CATAPRES) tablet 0.2 mg 0.2 mg, Oral, EVERY MORNING, First dose (after last modification) on 12/03/22 at 0800 $Given 12/05/2022 7:54 AM CDT 0.2 mg $Given 12/04/2022 10:40 AM CDT 0.2 mg $Given 12/03/2022 8:52 AM CDT 0.2 mg cloNIDine (CATAPRES) tablet 0.3 mg 0.3 mg (0.0068 mg/kg), Oral, EVERY EVENING, First dose on [facility] 11/29/22 at 2000 $Given 12/01/2022 8:02 PM CDT 0.3 mg $Given 11/30/2022 8:04 PM CDT 0.3 mg $Given 11/29/2022 8:54 PM CDT 0.3 mg dextrose 10% BOLUS 88 mL 88 mL (rounded from 88.2 mL = 2 mL/kg ? 44.1 kg), Intravenous, EVERY 15 MIN PRN, Repeat until glucose value greater than 70 mg/dL, Starting on Gemma 11/29/22 at 1048, Use for hypoglycemia with glucose less than or equal to 50 mg/dL in the NPO or unconscious/not alert patient with IV access. dextrose 50 % injection 50 mL 50 mL, Intravenous, ONCE, Administer over 1-5 Minutes, On Gemma 11/29/22 at 0330, For 1 dose, Vesicant. $Given 11/29/2022 3:55 AM CDT 50 mLs dianeal PD LOW calcium-1.5% dex (calcium 2.5 mEq/L) 2,000 mL with vancomycin 2 g PERITONEAL DIALYSATE 2,000 mL, Total Volume Needed: 2,000, other, [facility] [employer], Starting on Sat11/30/22 at 1732, Until 12/01/22 at 1306, Peritoneal Dialysis. [facility] supplies dialysis solution. IF ADDITIVES ARE ORDERED, the [facility] nurse will bring dialysis solution to Pharmacy for adding the medication. Pharmacy will charge the additives by using the Bulk Charge activity in [employer]. Do not refrigerate. $New Bag 11/30/2022 7:07 PM CDT dianeal PD LOW calcium-2.5% dex (calcium 2.5 mEq/L) 6,000 mL with vancomycin 120 mg PERITONEAL DIALYSATE 6,000 mL, Total Volume Needed: 3,000, other, [employer] PD, Starting on 12/01/22 at 1246, Until 12/02/22 at 0945, Peritoneal Dialysis. [facility] supplies dialysis solution. IF ADDITIVES ARE ORDERED, the [facility] nurse will bring dialysis solution to Pharmacy for adding the medication. Pharmacy will charge the additives by using the Bulk Charge activity in [employer]. Do not refrigerate. $New Bag 12/01/2022 3:17 PM CDT dianeal PD LOW calcium-2.5% dex (calcium 2.5 mEq/L) 6,000 mL with vancomycin 120 mg PERITONEAL DIALYSATE 6,000 mL, Total Volume Needed: 2,600, other, [facility] [employer] PD, Starting on 12/02/22 at 0939, Until 12/03/22 at 1544, Peritoneal Dialysis. [facility] supplies dialysis solution. IF ADDITIVES ARE ORDERED, the [facility] nurse will bring dialysis solution to Pharmacy for adding the medication. Pharmacy will charge the additives by using the Bulk Charge activity in [employer]. Do not refrigerate. $New Bag 12/02/2022 2:36 PM CDT erythromycin (ROMYCIN) ophthalmic ointment Left Eye, 4 TIMES DAILY, First dose on Gem[facility] 11/29/22 at 1200 $Given 12/06/2022 12:10 PM CDT $Given 12/06/2022 7:43 AM CDT $Given 12/05/2022 8:14 PM CDT fluconazole (DIFLUCAN) tablet 100 mg Routine, 100 mg (2.3 mg/kg), Oral, DAILY, First dose on Sat11/30/22 at 1500, Indications: Fungal Infection Prophylaxis $Given 12/05/2022 7:52 AM CDT 10 0 mg $Given 12/04/2022 10:43 AM CDT 100 mg $Given 12/03/2022 8:52 AM CDT 100 mg furosemide (LASIX) injection 40 mg 40 mg (0.907 mg/kg), Intravenous, ONCE, Administer over 1-3 Minutes, On Gem[facility] 11/29/22 at 1630, For 1 dose $Given 11/29/2022 5:12 PM CDT 40 mg furosemide (LASIX) injection 40 mg 40 mg (0.92 mg/kg), Intravenous, DAILY, Administer over 1-3 Minutes, First dose on 11/30/22 at 1630 $Given 12/03/2022 8:53 AM CDT 40 mg $Given 12/02/2022 9:22 AM CDT 40 mg $Given 12/01/2022 9:10 AM CDT 40 mg furosemide (LASIX) injection 80 mg 80 mg (1.84 mg/kg), Intravenous, ONCE, Administer over 1-3 Minutes, On 12/01/22 at 1230, For 1 dose $Given 12/01/2022 1:22 PM CDT 80 mg gentamicin (GARAMYCIN) 0.1 % cream Topical, DAILY PRN, promotion of catheter exit site healing., Starting on 12/02/22 at 0938, Apply cream daily to the peritoneal catheter exit site with dressing change. Pharmacy will send tube with first order or upon request. Peritoneal Dialysis $Given 12/02/2022 2:38 PM CDT glucagon injection 0.5-1 mg 0.5-1 mg (0.0113-0.0227 mg/kg), Subcutaneous, EVERY 15 MIN PRN, low blood sugar, May repeat x 1 only.?, Starting on Gem[facility] 11/29/22 at 1048, May give SQ or IM. Dose 0.5 mg if LESS than 5 years old, 1 mg if 5 years or older. ONLY use glucagon IF patient has NO IV access AND is unable/unwilling to swallow AND blood glucose LESS than or EQUAL to 50 mg/dL. glucose gel 15-30 g 15-30 g (0.34-0.68 g/kg), Oral, EVERY 15 MIN PRN, low blood sugar, Starting on Gem[facility] 11/29/22 at 1048, Give 15 g for Blood Glucose 51 to 69 mg/dL IF patient is conscious and able to swallow. Give 30 g for Blood Glucose less than or equal to 50 mg/dL. IF patient is conscious and able to swallow. Do NOT give glucose gel via enteral tube. IF patient has enteral tube: give apple juice 120 mL (4 oz or 15 g of CHO) via enteral tube for Blood Glucose 51 to 69 mg/dL. Give apple juice 240 mL (8 oz or 30 g of CHO) via enteral tube for Blood Glucose less than or equal to 50 mg/dL. ~Oral gel is preferable for conscious and able to swallow patient. ~IF gel unavailable or patient refuses may provide apple juice 120 mL (4 oz or 15 g of CHO). Document juice on I and O flowsheet. heparin ANTICOAGULANT injection 5,000 Units 5,000 Units (113 Units/kg), Subcutaneous, EVERY 12 HOURS, First dose on [facility] 11/29/22 at 0030, HOLD heparin IF platelet count falls below 50% baseline or less than 100,000 / ??L and notify provider. Use this product If CrCl less than 30 mL/min. High concentration heparin. Not for line flush or cath care. $Given 12/06/2022 12:19 PM CDT 5,000 Units $Given 12/06/2022 1:44 AM CDT 5,000 Units $Given 12/05/2022 11:48 AM CDT 5,000 Units HYDROmorphone (DILAUDID) half-tab 1 mg 1 mg (0.0227 mg/kg), Oral, 3 TIMES DAILY PRN, severe pain, Starting on Gem[facility] 11/29/22 at 0439 $Given 12/05/2022 3:5 7 PM CDT 1 mg $Given 12/05/2022 12:18 AM CDT 1 mg $Given 12/03/2022 11:59 PM CDT 1 mg insulin aspart (NovoLOG) injection (RAPID ACTING) 1-7 Units (0.0227-0.1587 Units/kg), Subcutaneous, 3 TIMES DAILY BEFORE MEALS, First dose on [facility] 11/29/22 at 0730, Correction Scale - MEDIUM INSULIN RESISTANCE DOSING Do Not give Correction Insulin if Pre-Meal BG less than 140. For Pre-Meal BG 140 - 189 give 1 unit. For Pre-Meal BG 190 - 239 give 2 units. For Pre-Meal BG 240 - 289 give 3 units. For Pre-Meal BG 290 - 339 give 4 units. For Pre-Meal BG 340- 399 give 5 units. For Pre-Meal BG 400-449 give 6 units For Pre-Meal BG greater than or equal to 450 give 7 units. To be given with prandial insulin, and based on pre-meal blood glucose. Notify provider if glucose greater than or equal to 350 mg/dL after administration of correction dose. If given at mealtime, administer within 30 minutes of start of meal. $Given 12/06/2022 7:46 AM CDT 1 Units $Given 12/05/2022 5:22 PM CDT 1 Units $Given 12/05/2022 11:47 AM CDT 2 Units insulin aspart (NovoLOG) injection (RAPID ACTING) 1-5 Units (0.0227-0.1134 Units/kg), Subcutaneous, AT BEDTIME, First dose on Gem[facility] 11/29/22 at 0030, MEDIUM INSULIN RESISTANCE DOSING Do Not give Bedtime Correction Insulin if BG less than 200. For BG 200 - 249 give 1 units. For BG 250 - 299 give 2 units. For BG 300 - 349 give 3 units. For BG 350 -399 give 4 units. For BG greater than or equal to 400 give 5 units. Notify provider if glucose greater than or equal to 350 mg/dL after administration of correction dose. If given at mealtime, administer within 30 minutes of start of meal. $Given 12/05/2022 9:47 PM CDT 2 Units $Given 12/04/2022 10:27 PM CDT 2 Units $Given 12/03/2022 10:01 PM CDT 3 Units insulin aspart (NovoLOG) injection (RAPID ACTING) Subcutaneous, DAILY WITH LUNCH, First dose on Sat11/30/22 at 1300, DOSE: 1 units per 15 grams of carbohydrate. Only chart total amount of units given. Do not give if pre-prandial glucose is less than 60 mg/dL. If given at mealtime, administer within 30 minutes of start of meal. $Given 11/30/2022 2:17 PM CDT 4 Units insulin aspart (NovoLOG) injection (RAPID ACTING) Subcutaneous, DAILY WITH SUPPER, First dose on Sat11/30/22 at 1700, DOSE: 1 units per 15 grams of carbohydrate. Only chart total amount of units given. Do not give if pre-prandial glucose is less than 60 mg/dL. If given at mealtime, administer within 30 minutes of start of meal. $Given 11/30/2022 6:45 PM CDT 2 Units insulin glargine (LANTUS PEN) injection 3 Units 3 Units (0.0682 Units/kg), Subcutaneous, EVERY MORNING BEFORE BREAKFAST, First dose on Sat12/01/22 at 1300, On hold since Sat12/03/2022 at 0840 until manually unheld $Given 12/02/2022 9:21 AM CDT 3 U nits $Given 12/01/2022 2:49 PM CDT 3 Units insulin regular 1 unit/mL injection 5 Units 5 Units (0.113 Units/kg), Intravenous, ONCE, On Sat11/29/22 at 0330, For 1 dose $Given 11/29/2022 3:52 AM CDT 5 Units ipratropium - albuterol 0.5 mg/2.5 mg/3 mL (DUONEB) neb solution 3 mL 3 mL, Nebulization, ONCE, On Sat12/04/22 at 0900, For 1 dose, PACU $Given 12/04/2022 8:57 AM CDT 3 mLs labetalol (NORMODYNE) tablet 300 mg 300 mg (7.19 mg/kg), Oral, 3 TIMES DAILY, First dose on Sat11/29/22 at 1400, Hold for SBP <90 or HR <60 $Given 12/06/2022 2:25 PM CDT 300 mg $Given 12/05/2022 8:13 PM CDT 300 mg $Given 12/05/2022 2:08 PM CDT 300 mg melatonin tablet 1 mg 1 mg (0.0227 mg/kg), Oral, AT BEDTIME PRN, sleep, Starting on Sat11/29/22 at 0022, Do not give unless at least 6 hours of uninterrupted sleep is expected. $Given 12/04/2022 10:25 PM CDT 1 mg $Given 12/03/2022 11:59 PM CDT 1 mg $Given 12/03/2022 1:18 AM CDT 1 mg naloxone (NARCAN) injection 0.2 mg 0.2 mg (0.96055 mg/kg), Intravenous, EVERY 2 MIN PRN, opioid reversal, Starting on Sat11/29/22 at 0447, Administer intravenous route when available and notify [...] naloxone (NARCAN) injection 0.2 mg 0.2 mg (0.49637 mg/kg), Intramuscular, EVERY 2 MIN PRN, opioid reversal, Starting on Gem[facility] 11/29/22 at 0447, Administer intramuscular if an intravenous route is [...] naloxone (NARCAN) injection 0.4 mg 0.4 mg (0.61114 mg/kg), Intravenous, EVERY 2 MIN PRN, opioid reversal, Starting on Gemma 11/29/22 at 0447, Administer intravenous route when available and notify [...] naloxone (NARCAN) injection 0.4 mg 0.4 mg (0.27793 mg/kg), Intramuscular, EVERY 2 MIN PRN, opioid reversal, Starting on Gemma 11/29/22 at 0447, Administer intramuscular if an intravenous route is [...] after 4 naloxone doses. nicotine (NICODERM CQ) 7 MG/24HR 24 hr patch 1 patch 1 patch, Transdermal, DAILY, Administer over 24 Hours, First dose on [facility] 11/29/22 at 1100, Reminder: Remove previous patch before applying new patch. $Patch/Med Applied 12/05/2022 7:53 AM CDT 1 patch Left Arm $Patch/Med Applied 12/04/2022 10:49 AM CDT 1 patch Left Shoulder $Patch/Med Applied 12/03/2022 8:58 AM CDT 1 patch Left Shoulder nicotine Patch in Place First dose on [facility] 11/29/22 at 1400 No heparin via hemodialysis machine ONCE, 1 dose, On Sat12/05/22 at 1430, Normal saline flushes may be used to maintain patency of circuit., Dialysis $Given 12/06/2022 11:13 AM CDT oxyCODONE (ROXICODONE) tablet 15 mg 15 mg (0.354 mg/kg), Oral, AT BEDTIME, First dose (after last modification) on Sat12/05/22 at 2200 $Given 12/05/2022 9:47 PM CDT 15 mg oxyCODONE IR (ROXICODONE) tablet 10 mg 10 mg (0.227 mg/kg), Oral, AT BEDTIME, First dose on Sat11/29/22 at 2200 $Given 12/04/2022 10:25 PM CDT 10 mg $Given 12/03/2022 10:01 PM CDT 10 mg $Given 12/02/2022 10:53 PM CDT 10 mg polyethylene glycol (MIRALAX) Packet 17 g 17 g (0.385 g/kg), Oral, EVERY 3 DAYS, First dose on Sat11/29/22 at 1100, 1 Packet = 17 grams. Mix each gram with at least 1/2 ounce (15 mL) of water - 8 ounces for 17 g dose, 4 ounces for 8.5 g dose, 2 ounces for 4 g dose. Follow with the same volume of water. Hold for loose stools unless being administered as part of a bowel prep regimen or bowel clean out. $Given 12/05/2022 11:48 AM CDT 17 g $Given 12/02/2022 12:18 PM CDT 17 g $Given 11/29/2022 1:27 PM CDT 17 g repaglinide (PRANDIN) tablet 1 mg 1 mg (0.0227 mg/kg), Oral, 3 TIMES DAILY BEFORE MEALS, First dose on [facility] 11/29/22 at 1200, Take before or with meals. $Given 12/06/2022 12:15 PM CDT 1 mg $Given 12/06/2022 7:47 AM CDT 1 mg $Given 12/05/2022 5:22 PM CDT 1 mg repaglinide (PRANDIN) tablet 1 mg 1 mg (0.0227 mg/kg), Oral, 3 TIMES DAILY BEFORE MEALS, First dose on [facility] 11/29/22 at 1400, For 3 doses, Take before or with meals. $Given 11/30/2022 8:4 2 AM CDT 1 mg $Given 11/29/2022 5:15 PM CDT 1 mg $Given 11/29/2022 2:42 PM CDT 1 mg sennosides (SENOKOT) tablet 1 tablet 1 tablet, Oral, EVERY 3 DAYS, First dose on Sat11/29/22 at 1100, Hold for loose stools. $Given 12/02/2022 12:18 PM CDT 1 tablet $Given 11/29/2022 1:27 PM CDT 1 tablet sodium chloride 0.9% BOLUS 250 mL Intravenous, 250 mL, ONCE IN DIALYSIS/CRRT, On Sat12/03/22 at 1400, For 1 dose, For patient prime during dialysis, Dialysis $New Bag 12/03/2022 3:29 PM CDT 250 mLs sodium chloride 0.9% BOLUS 250 mL Intravenous, 250 mL, ONCE IN DIALYSIS/CRRT, On Sat12/05/22 at 1430, For 1 dose, For patient prime during dialysis, Dialysis $New Bag 12/06/2022 8:50 AM CDT 250 mLs sodium chloride 0.9% BOLUS 300 mL Hemodialysis Machine, 300 mL, ONCE, On Sat12/03/22 at 1400, For 1 dose, For Dialyzer Prime. (In Dialyzer), Dialysis $New Bag 12/03/2022 3:32 PM CDT 3 00 mLs sodium chloride 0.9% BOLUS 300 mL Hemodialysis Machine, 300 mL, ONCE, On Sat12/05/22 at 1430, For 1 dose, For Dialyzer Prime. (In Dialyzer), Dialysis $New Bag 12/06/2022 8:30 AM CDT 3 00 mLs sodium zirconium cyclosilicate (LOKELMA) packet 10 g 10 g (0.227 g/kg), Oral, ONCE, On [facility] 11/29/22 at 0330, For 1 dose, Administer at least 2 hours before or 2 hours after other oral medications. Empty the entire contents of packet into at least 3 tablespoons of water, stir well and drink immediately $Given 11/29/2022 3:58 AM CDT 10 g sodium zirconium cyclosilicate (LOKELMA) packet 10 g 10 g (0.23 g/kg), Oral, ONCE, On 12/01/22 at 1230, For 1 dose, Administer at least 2 hours before or 2 hours after other oral medications. Empty the entire contents of packet into at least 3 tablespoons of water, stir well and drink immediately $Given 12/01/2022 2:51 PM CDT 10 g sorbitol 70 % solution 30 mL 30 mL, Oral, EVERY 3 DAYS, First dose on [facility] 11/29/22 at 1100 $Given 12/05/2022 11:58 AM CDT 30 mLs $Given 12/02/2022 12:18 PM CDT 30 mLs $Given 11/29/2022 12:06 PM CDT 30 mLs vancomycin (VANCOCIN) 1,000 mg in 200 mL dextrose intermittent infusion Routine, 1,000 mg (23 mg/kg), Intravenous, ONCE, On Sat11/30/22 at 1500, For 1 dose, Possible Vesicant. Infuse doses less than 1,250 mg over 1 hour. Infuse doses between 1,250 mg and less than 1,750 mg over 90 minutes. Infuse doses 1,750 mg and above over 2 hours., Indications: peritonitis $New Bag 11/30/2022 4:32 PM CDT 1,000 mg 200 mL /hr vancomycin (VANCOCIN) 1,000 mg in 200 mL dextrose intermittent infusion Routine, 1,000 mg (23.6 mg/kg), Intravenous, ONCE, On Sat12/04/22 at 0000, For 1 dose, Possible Vesicant. Infuse doses less than 1,250 mg over 1 hour. Infuse doses between 1,250 mg and less than 1,750 mg over 90 minutes. Infuse doses 1,750 mg and above over 2 hours., Indications: peritonitis $New Bag 12/04/2022 12:12 AM CDT 1,000 mg 200 m L/hr vancomycin place salcedo - receiving intermittent dosing Routine, 1 each (0.023 Each/kg), Intravenous, SEE ADMIN INSTRUCTIONS, Starting on Sat11/30/22 at 1447, This order is meant to notify providers that this patient is receiving intermittent doses of vancomycin. Do NOT chart on this order., Indications: peritonitis documented in this encounter Active and Recently Administered Medications Times are shown in CDT. Scheduled Medication Order 12/04/2022 12/05/2022 12/06/2022 - MEDICATION INSTRUCTIONS for Dialysis Patients - SEE ADMIN INSTRUCTIONS, Starting on Sat12/03/22 at 1334, Until Sat12/06/22 at 1643, Do not give any medication that may affect blood pressure or volume before dialysis. The following medications may be removed by dialysis and should be given after dialysis: acetaminophen, aspirin, fluconazole, hydromorphone, oxycodone, vancomycin 0629 (Auto Hold - Provider: Orders Generic Provider - Reason: Transfer to a procedural area)1007 (Unhold - Provider: Orders Generic Provider) amLODIPine (NORVASC) tablet 10 mg 10 mg (0.227 mg/kg), Oral, 2 TIMES DAILY, First dose on Sat11/29/22 at 1100 0629 (Auto Hold - Provider: Orders Generic Provider - Reason: Transfer to a procedural area)0800 (Automatically Held - Provider: Orders Generic Provider)1007 (Unhold - Provider: Orders Generic Provider)1042 ($Given - Provider: Nahomi Sainz RN - Comment: pt was out for dialysis)2031 ($Given - Provider: Florence Emery RN) 075 ($Given - Provider: Margarita Page RN)2012 ($Given - Provider: Marjorie Whiteside RN) 1215 ($Given - Provider: Lina Saeed, SUSANA) aspirin EC tablet 81 mg 81 mg (1.84 mg/kg), Oral, DAILY, First dose on Sat11/29/22 at 1100, DO NOT CRUSH. 0629 (Auto Hold - Provider: Orders Generic Provider - Reason: Transfer to a procedural area)0800 (Automatically Held - Provider: Orders Generic Provider)1007 (Unhold - Provider: Orders Generic Provider)1041 ($Given - Provider: Nahomi Sainz RN - Comment: pt was out for dialysis) 0751 ($Given - Provider: Margarita Page RN) 0747 ($Given - Provider: Lina Saeed, SUSANA) calcium acetate (PHOSLO) capsule 667 mg 667 mg (15.1 mg/kg), Oral, 3 TIMES DAILY WITH MEALS, First dose on Sat11/29/22 at 1200, Best if given with meals. 0629 (Auto Hold - Provider: Orders Generic Provider - Reason: Transfer to a procedural area)0800 (Automatically Held - Provider: Orders Generic Provider)1007 (Unhold - Provider: Orders Generic Provider)1045 ($Given - Provider: Nahomi Sainz RN - Comment: pt was out for dialysis)1140 (Canceled Entry - Provider: Nahomi Sainz RN - Comment: too close to last dose)1817 ($Given - Provider: Nahomi Sainz RN) 0752 ($Given - Provider: Margarita Page RN)1149 ($Given - Provider: Margarita Page RN)1722 ($Given - Provider: Nahomi Sainz RN) 0747 ($Given - Provider: Lina Saeed RN)1215 ($Given - Provider: Lina Saeed, SUSANA) carboxymethylcellulose PF (REFRESH PLUS) 0.5 % ophthalmic solution 1 drop 1 drop, Left Eye, 4 TIMES DAILY, First dose on Sat11/29/22 at 1200 0629 (Auto Hold - Provider: Orders Generic Provider - Reason: Transfer to a procedural area)0800 (Automatically Held - Provider: Orders Generic Provider)1007 (Unhold - Provider: Orders Generic Provider)1045 ($Given - Provider: Nahomi Sainz RN - Comment: pt was out for dialysis)1140 (Canceled Entry - Provider: Nahomi Sainz RN - Comment: too close to last dose)1616 ($Given - Provider: Nahomi Sainz RN)2031 ($Given - Provider: Florence Emery RN) 0753 ($Given - Provider: Margarita Page RN)1148 ($Given - Provider: Margarita Page RN)1554 ($Given - Provider: Nahomi Sainz RN)2012 ($Given - Provider: Marjorie Whiteside RN) 0747 ($Given - Provider: Lina Saeed, SUSANA)1205 ($Given - Provider: Lina Saeed, SUSANA)1600 (Canceled Entry - Provider: Orders Generic Provider - Comment: Automatically canceled at discontinue of medication order) cetirizine (zyrTEC) tablet 10 mg 10 mg (0.227 mg/kg), Oral, DAILY, First dose on Sat11/29/22 at 1100 0629 (Auto Hold - Provider: Orders Generic Provider - Reason: Transfer to a procedural area)0800 (Automatically Held - Provider: Orders Generic Provider)1007 (Unhold - Provider: Orders Generic Provider)1043 ($Given - Provider: Nahomi Sainz RN - Comment: pt was out for dialysis) 0753 ($Given - Provider: Margarita Page RN) 0747 ($Given - Provider: Lina Saeed RN) cloNIDine (CATAPRES) tablet 0.2 mg(Linked Group 1) 0.2 mg (0.0048 mg/kg), Oral, EVERY EVENING, First dose (after last modification) on Sat12/02/22 at 2000 0629 (Auto Hold - Provider: Orders Generic Provider - Reason: Transfer to a procedural area)1007 (Unhold - Provider: Orders Generic Provider)2031 ($Given - Provider: Florence Emery, SUSANA) 2011 ($Given - Provider: Marjorie Whiteside RN) cloNIDine (CATAPRES) tablet 0.2 mg(Linked Group 1) 0.2 mg, Oral, EVERY MORNING, First dose (after last modification) on 12/03/22 at 0800 0629 (Auto Hold - Provider: Orders Generic Provider - Reason: Transfer to a procedural area)0800 (Automatically Held - Provider: Orders Generic Provider)1007 (Unhold - Provider: Orders Generic Provider)1040 ($Given - Provider: Nahomi Sainz RN - Comment: pt was out for dialysis) 0754 ($Given - Provider: Margarita Page RN) 1425 (Not Given - Provider: Lina Saeed RN - Reason: Patient/family refused - Comment: I take that in the evening) erythromycin (ROMYCIN) ophthalmic ointment Left Eye, 4 TIMES DAILY, First dose on [facility] 11/29/22 at 1200 0629 (Auto Hold - Provider: Orders Generic Provider - Reason: Transfer to a procedural area)0800 (Automatically Held - Provider: Orders Generic Provider)1007 (Unhold - Provider: Orders Generic Provider)1049 ($Given - Provider: Nahomi Sainz RN - Comment: pt was out for dialysis)1140 (Canceled Entry - Provider: Nahomi Sainz RN - Comment: too close to last dose)1616 ($Given - Provider: Nahomi Sainz RN)2035 ($Given - Provider: Florence Emery, SUSANA) 0759 (Not Given - Provider: Margarita Page RN - Reason: Patient/family refused)1148 ($Given - Provider: Margarita Page RN)1554 ($Given - Provider: Nahomi Sainz, SUSANA)2013 ($Given - Provider: Marjorie Whiteside RN) 0743 ($Given - Provider: Lina Saeed, SUSANA)1210 ($Given - Provider: Lina Saeed, SUSANA)1600 (Canceled Entry - Provider: Orders Generic Provider - Comment: Automatically canceled at discontinue of medication order) fluconazole (DIFLUCAN) tablet 100 mg (CANCELED) Routine, 100 mg (2.3 mg/kg), Oral, DAILY, First dose on Sat11/30/22 at 1500, Indications: Fungal Infection Prophylaxis 0629 (Auto Hold - Provider: Orders Generic Provider - Reason: Transfer to a procedural area)0800 (Automatically Held - Provider: Orders Generic Provider)1007 (Unhold - Provider: Orders Generic Provider)1043 ($Given - Provider: Nahomi Sainz RN - Comment: pt was out for dialysis) 0752 ($Given - Provider: Margarita Page RN) glipiZIDE (GLUCOTROL XL) 24 hr tablet 20 mg 20 mg (0.454 mg/kg), Oral, DAILY BEFORE SUPPER, First dose on Sat11/29/22 at 1630, DO NOT CRUSH. Take before or with meals., , On hold since Sat11/29/2022 at 1549 until manually unheld 1630 (Automatically Held) 1630 (Automatically Held) 1643 (Unheld by provider - Provider: Orders Generic Provider) heparin ANTICOAGULANT injection 5,000 Units 5,000 Units (113 Units/kg), Subcutaneous, EVERY 12 HOURS, First dose on Sat11/29/22 at 0030, HOLD heparin IF platelet count falls below 50% baseline or less than 100,000 / ??L and notify provider. Use this product If CrCl less than 30 mL/min. High concentration heparin. Not for line flush or cath care. 0000 ($Given - Provider: Florence Emery RN)0629 (Auto Hold - Provider: Orders Generic Provider - Reason: Transfer to a procedural area)1007 (Unhold - Provider: Orders Generic Provider)1230 ($Given - Provider: Nahomi Sainz RN) 0018 ($Given - Provider: Florence Emery, RN)1148 ($Given - Provider: Margarita Page RN) 0144 ($Given - Provider: Padmini Manuel, SUSANA)1219 ($Given - Provider: Lina Saeed, RN) insulin aspart (NovoLOG) injection (RAPID ACTING) 1-7 Units (0.0227-0.1587 Units/kg), Subcutaneous, 3 TIMES DAILY BEFORE MEALS, First dose on [facility] 11/29/22 at 0730, Correction Scale - MEDIUM INSULIN RESISTANCE DOSING Do Not give Correction Insulin if Pre-Meal BG less than 140. For Pre-Meal BG 140 - 189 give 1 unit. For Pre-Meal BG 190 - 239 give 2 units. For Pre-Meal BG 240 - 289 give 3 units. For Pre-Meal BG 290 - 339 give 4 units. For Pre-Meal BG 340- 399 give 5 units. For Pre-Meal BG 400-449 give 6 units For Pre-Meal BG greater than or equal to 450 give 7 units. To be given with prandial insulin, and based on pre-meal blood glucose. Notify provider if glucose greater than or equal to 350 mg/dL after administration of correction dose. If given at mealtime, administer within 30 minutes of start of meal. 0629 (Auto Hold - Provider: Orders Generic Provider - Reason: Transfer to a procedural area)0730 (Automatically Held - Provider: Orders Generic Provider)1007 (Unhold - Provider: Orders Generic Provider)1230 ($Given - Provider: Nahomi Sainz RN - Comment: BG 303)1817 ($Given - Provider: Nahomi Sainz RN - Comment: BG 290) 0750 ($Given - Provider: Margarita Page RN - Comment: bg 198)1147 ($Given - Provider: Margarita Page RN - Comment: bg 195)1722 ($Given - Provider: Nahomi Sainz RN) 0746 ($Given - Provider: Lina Saeed, SUSANA)1205 (Not Given - Provider: Lina Saeed, SUSANA - Reason: Order parameters not met) insulin aspart (NovoLOG) injection (RAPID ACTING) 1-5 Units (0.0227-0.1134 Units/kg), Subcutaneous, AT BEDTIME, First dose on Sat11/29/22 at 0030, MEDIUM INSULIN RESISTANCE DOSING Do Not give Bedtime Correction Insulin if BG less than 200. For BG 200 - 249 give 1 units. For BG 250 - 299 give 2 units. For BG 300 - 349 give 3 units. For BG 350 -399 give 4 units. For BG greater than or equal to 400 give 5 units. Notify provider if glucose greater than or equal to 350 mg/dL after administration of correction dose. If given at mealtime, administer within 30 minutes of start of meal. 0629 (Auto Hold - Provider: Orders Generic Provider - Reason: Transfer to a procedural area)1007 (Unhold - Provider: Orders Generic Provider)2227 ($Given - Provider: Florence Emery RN) 2147 ($Given - Provider: Marjorie Whiteside RN) insulin glargine (LANTUS PEN) injection 3 Units 3 Units (0.0682 Units/kg), Subcutaneous, EVERY MORNING BEFORE BREAKFAST, First dose on Sat12/01/22 at 1300, On hold since Sat12/03/2022 at 0840 until manually unheld 0730 (Automatically Held - Provider: Nidia Yanez DO) 0730 (Automatically Held - Provider: Nidia Yanez DO) 0730 (Automatically Held - Provider: Nidia Yanez DO)1643 (Unheld by provider - Provider: Orders Generic Provider) ipratropium - albuterol 0.5 mg/2.5 mg/3 mL (DUONEB) neb solution 3 mL (COMPLETED) 3 mL, Nebulization, ONCE, On Sat12/04/22 at 0900, For 1 dose, PACU 0857 ($Given - Provider: Sherin Ruff, SUSANA) labetalol (NORMODYNE) tablet 300 mg 300 mg (7.19 mg/kg), Oral, 3 TIMES DAILY, First dose on Sat11/29/22 at 1400, Hold for SBP <90 or HR <60 0629 (Auto Hold - Provider: Orders Generic Provider - Reason: Transfer to a procedural area)0800 (Automatically Held - Provider: Orders Generic Provider)1007 (Unhold - Provider: Orders Generic Provider)1415 (Not Given - Provider: Nahomi Sainz RN - Reason: Order parameters not met)2032 ($Given - Provider: Florence Emery RN) 075 (Not Given - Provider: Margarita Page RN - Reason: Order parameters not met - Comment: HR 59)1408 ($Given - Provider: Margarita Page RN)2012 ($Given - Provider: Marjorie Whiteside RN) 0800 (Not Given - Provider: Lina Saeed RN - Reason: Other - Comment: hr 60 and went to dialysis)1425 ($Given - Provider: Lina Saeed RN) nicotine (NICODERM CQ) 7 MG/24HR 24 hr patch 1 patch(Linked Group 2) 1 patch, Transdermal, DAILY, Administer over 24 Hours, First dose on Sat11/29/22 at 1100, Reminder: Remove previous patch before applying new patch. 0629 (Auto Hold - Provider: Orders Generic Provider - Reason: Transfer to a procedural area)0800 (Automatically Held - Provider: Orders Generic Provider)1007 (Unhold - Provider: Orders Generic Provider)1035 (Patch/Med Removed - Provider: Nahomi Sainz RN)1049 ($Patch/Med Applied - Provider: Nahomi Sainz RN - Comment: pt was out for dialysis) 0751 (Patch/Med Removed - Provider: Margarita Page RN)0753 ($Patch/Med Applied - Provider: Margarita Page RN) 0743 (Not Given - Provider: Lina Saeed RN - Reason: Patient/family refused)0744 (Patch/Med Removed - Provider: Lina Saeed RN) nicotine Patch in Place(Linked Group 2) First dose on Sat11/29/22 at 1400 0600 (Canceled Entry - Provider: Orders Generic Provider - Comment: Automatically canceled at discontinue of medication order)0629 (Auto Hold - Provider: Orders Generic Provider - Reason: Transfer to a procedural area)1007 (Unhold - Provider: Orders Generic Provider)1324 (Patch in Place - Provider: Nahomi Sainz RN)2118 (Patch in Place - Provider: Florence Emery RN) 0649 (Patch in Place - Provider: Florence Emery RN)1356 (Patch in Place - Provider: Margarita Page, SUSANA)2124 (Patch in Place - Provider: Marjorie Whiteside, SUSANA) 0526 (Patch in Place - Provider: Padmini Manuel RN)1400 (Patch Free Period - Provider: Lina Saeed, SUSANA) No heparin via hemodialysis machine (COMPLETED) ONCE, 1 dose, On Sat12/05/22 at 1430, Normal saline flushes may be used to maintain patency of circuit., Dialysis 1113 ($Given - Provider: Monika Jones RN) oxyCODONE (ROXICODONE) tablet 15 mg 15 mg (0.354 mg/kg), Oral, AT BEDTIME, First dose (after last modification) on Sat12/05/22 at 2200 2147 ($Given - Provider: Marjorie Whiteside RN) oxyCODONE IR (ROXICODONE) tablet 10 mg (CANCELED) 10 mg (0.227 mg/kg), Oral, AT BEDTIME, First dose on Sat11/29/22 at 2200 0629 (Auto Hold - Provider: Orders Generic Provider - Reason: Transfer to a procedural area)1007 (Unhold - Provider: Orders Generic Provider)2225 ($Given - Provider: Florence Emery RN) polyethylene glycol (MIRALAX) Packet 17 g 17 g (0.385 g/kg), Oral, EVERY 3 DAYS, First dose on Sat11/29/22 at 1100, 1 Packet = 17 grams. Mix each gram with at least 1/2 ounce (15 mL) of water - 8 ounces for 17 g dose, 4 ounces for 8.5 g dose, 2 ounces for 4 g dose. Follow with the same volume of water. Hold for loose stools unless being administered as part of a bowel prep regimen or bowel clean out. 0629 (Auto Hold - Provider: Orders Generic Provider - Reason: Transfer to a procedural area)1007 (Unhold - Provider: Orders Generic Provider) 1148 ($Given - Provider: Margarita Page, SUSANA) repaglinide (PRANDIN) tablet 1 mg 1 mg (0.0227 mg/kg), Oral, 3 TIMES DAILY BEFORE MEALS, First dose on Sat11/29/22 at 1200, Take before or with meals. 0629 (Auto Hold - Provider: Orders Generic Provider - Reason: Transfer to a procedural area)0730 (Automatically Held - Provider: Orders Generic Provider)1007 (Unhold - Provider: Orders Generic Provider)1042 ($Given - Provider: Nahomi Sainz RN - Comment: pt was out for dialysis)1141 (Canceled Entry - Provider: Nahomi Sainz RN - Comment: too close to last dose)1616 ($Given - Provider: Nahomi Sainz RN) 0752 ($Given - Provider: Margarita Page RN)1149 ($Given - Provider: Margarita Page, SUSANA)1722 ($Given - Provider: Nahomi Sainz RN) 0747 ($Given - Provider: Lina Saeed, SUSANA)1215 ($Given - Provider: Lina Saeed, SUSANA) sennosides (SENOKOT) tablet 1 tablet 1 tablet, Oral, EVERY 3 DAYS, First dose on Sat11/29/22 at 1100, Hold for loose stools. 0629 (Auto Hold - Provider: Orders Generic Provider - Reason: Transfer to a procedural area)1007 (Unhold - Provider: Orders Generic Provider) 1158 (Not Given - Provider: Margarita Page RN - Reason: Patient/family refused - Comment: wants to take sorbitol and miralax) sodium chloride 0.9% BOLUS 250 mL (COMPLETED) Intravenous, 250 mL, ONCE IN DIALYSIS/CRRT, On Sat12/05/22 at 1430, For 1 dose, For patient prime during dialysis, Dialysis 0850 ($New Bag - Provider: Monika Jones, SUSANA) sodium chloride 0.9% BOLUS 300 mL (COMPLETED) Hemodialysis Machine, 300 mL, ONCE, On Sat12/05/22 at 1430, For 1 dose, For Dialyzer Prime. (In Dialyzer), Dialysis 0830 ($New Bag - Provider: Monika Jones, SUSANA) sorbitol 70 % solution 30 mL 30 mL, Oral, EVERY 3 DAYS, First dose on [facility] 11/29/22 at 1100 0629 (Auto Hold - Provider: Orders Generic Provider - Reason: Transfer to a procedural area)1007 (Unhold - Provider: Orders Generic Provider) 1158 ($Given - Provider: Margarita Page RN) vancomycin (VANCOCIN) 1,000 mg in 200 mL dextrose intermittent infusion (COMPLETED) Routine, 1,000 mg (23.6 mg/kg), Intravenous, ONCE, On Sat12/04/22 at 0000, For 1 dose, Possible Vesicant. Infuse doses less than 1,250 mg over 1 hour. Infuse doses between 1,250 mg and less than 1,750 mg over 90 minutes. Infuse doses 1,750 mg and above over 2 hours., Indications: peritonitis 0012 ($New Bag - Provider: Florence Emery RN) vancomycin place salcedo - receiving intermittent dosing Routine, 1 each (0.023 Each/kg), Intravenous, SEE ADMIN INSTRUCTIONS, Starting on Sat11/30/22 at 1447, This order is meant to notify providers that this patient is receiving intermittent doses of vancomycin. Do NOT chart on this order., Indications: peritonitis 0629 (Auto Hold - Provider: Orders Generic Provider - Reason: Transfer to a procedural area)1007 (Unhold - Provider: Orders Generic Provider) PRN Medication Order 12/04/2022 12/05/2022 12/06/2022 acetaminophen (TYLENOL) Suppository 650 mg(Linked Group 3) 650 mg (14.7 mg/kg), Rectal, EVERY 6 HOURS PRN, mild pain, other, and adjunct with moderate or severe pain or per patient request, Starting on [facility] 11/29/22 at 0024, Alternate with ibuprofen if ordered. Maximum acetaminophen dose from all sources = 75 mg/kg/day not to exceed 4 grams/day. 0629 (Auto Hold - Provider: Orders Generic Provider - Reason: Transfer to a procedural area)1007 (Unhold - Provider: Orders Generic Provider)1038 (See Alternative - Provider: Nahomi Sainz RN) 0225 (See Alternative - Provider: Florence Emery, SUSANA)0954 (See Alternative - Provider: Margarita Page, SUSANA)2012 (See Alternative - Provider: Marjorie Whiteside RN) 1425 (See Alternative - Provider: Lina Saeed RN) acetaminophen (TYLENOL) tablet 650 mg(Linked Group 3) 650 mg (14.7 mg/kg), Oral, EVERY 6 HOURS PRN, mild pain, other, and adjunct with moderate or severe pain or per patient request, Starting on [facility] 23 at 0024, Alternate with ibuprofen if ordered. Maximum acetaminophen dose from all sources = 75 mg/kg/day not to exceed 4 grams/day. 0629 (Auto Hold - Provider: Orders Generic Provider - Reason: Transfer to a procedural area)1007 (Unhold - Provider: Orders Generic Provider)1038 ($Given - Provider: Nahomi Sainz, RN) 0225 ($Given - Provider: Florence Emery, RN)0954 ($Given - Provider: Margarita Page, SUSANA)2012 ($Given - Provider: Marjorie Whiteside, SUSANA) 1425 ($Given - Provider: Lina Saeed, SUSANA) albuterol (PROVENTIL HFA/VENTOLIN HFA) inhaler 2 puff, Inhalation, EVERY 2 HOURS PRN, wheezing, Starting on Sat11/30/22 at 0830, Check the dose counter on the inhaler to ensure there are doses remaining before administering. Prime by spraying into the air 4 times prior to first use and if not used within 2 weeks. 0629 (Auto Hold - Provider: Orders Generic Provider - Reason: Transfer to a procedural area)1007 (Unhold - Provider: Orders Generic Provider) albuterol (PROVENTIL) neb solution 2.5 mg 2.5 mg, Nebulization, EVERY 2 HOURS PRN, shortness of breath, Starting on Sat11/29/22 at 0025 0629 (Auto Hold - Provider: Orders Generic Provider - Reason: Transfer to a procedural area)1007 (Unhold - Provider: Orders Generic Provider) BUPivacaine (MARCAINE) 0.5% preservative free injection (CANCELED) PRN, Starting on Sat12/04/22 at 0837, Intra-procedure 0837 ($Given - Provider: Rajan Hernandez MD) dextrose 10% BOLUS 88 mL(Linked Group 4) 88 mL (rounded from 88.2 mL = 2 mL/kg ? 44.1 kg), Intravenous, EVERY 15 MIN PRN, Repeat until glucose value greater than 70 mg/dL, Starting on Sat11/29/22 at 1048, Use for hypoglycemia with glucose less than or equal to 50 mg/dL in the NPO or unconscious/not alert patient with IV access. 0629 (Auto Hold - Provider: Orders Generic Provider - Reason: Transfer to a procedural area)1007 (Unhold - Provider: Orders Generic Provider) glucagon injection 0.5-1 mg(Linked Group 4) 0.5-1 mg (0.0113-0.0227 mg/kg), Subcutaneous, EVERY 15 MIN PRN, low blood sugar, May repeat x 1 only.?, Starting on Gemma 11/29/22 at 1048, May give SQ or IM. Dose 0.5 mg if LESS than 5 years old, 1 mg if 5 years or older. ONLY use glucagon IF patient has NO IV access AND is unable/unwilling to swallow AND blood glucose LESS than or EQUAL to 50 mg/dL. 0629 (Auto Hold - Provider: Orders Generic Provider - Reason: Transfer to a procedural area)1007 (Unhold - Provider: Orders Generic Provider) glucose gel 15-30 g(Linked Group 4) 15-30 g (0.34-0.68 g/kg), Oral, EVERY 15 MIN PRN, low blood sugar, Starting on [facility] 11/29/22 at 1048, Give 15 g for Blood Glucose 51 to 69 mg/dL IF patient is conscious and able to swallow. Give 30 g for Blood Glucose less than or equal to 50 mg/dL. IF patient is conscious and able to swallow. Do NOT give glucose gel via enteral tube. IF patient has enteral tube: give apple juice 120 mL (4 oz or 15 g of CHO) via enteral tube for Blood Glucose 51 to 69 mg/dL. Give apple juice 240 mL (8 oz or 30 g of CHO) via enteral tube for Blood Glucose less than or equal to 50 mg/dL. ~Oral gel is preferable for conscious and able to swallow patient. ~IF gel unavailable or patient refuses may provide apple juice 120 mL (4 oz or 15 g of CHO). Document juice on I and O flowsheet. 0629 (Auto Hold - Provider: Orders Generic Provider - Reason: Transfer to a procedural area)1007 (Unhold - Provider: Orders Generic Provider) HYDROmorphone (DILAUDID) half-tab 1 mg 1 mg (0.0227 mg/kg), Oral, 3 TIMES DAILY PRN, severe pain, Starting on Gem[facility] 11/29/22 at 0439 0629 (Auto Hold - Provider: Orders Generic Provider - Reason: Transfer to a procedural area)1007 (Unhold - Provider: Orders Generic Provider) 0018 ($Given - Provider: Florence Emery RN)1557 ($Given - Provider: Nahomi Sainz RN) ipratropium - albuterol 0.5 mg/2.5 mg/3 mL (DUONEB) neb solution 3 mL 3 mL, Inhalation, EVERY 6 HOURS PRN, shortness of breath, Starting on Gem[facility] 11/29/22 at 1055 0629 (Auto Hold - Provider: Orders Generic Provider - Reason: Transfer to a procedural area)1007 (Unhold - Provider: Orders Generic Provider) melatonin tablet 1 mg 1 mg (0.0227 mg/kg), Oral, AT BEDTIME PRN, sleep, Starting on Gemma 11/29/22 at 0022, Do not give unless at least 6 hours of uninterrupted sleep is expected. 0629 (Auto Hold - Provider: Orders Generic Provider - Reason: Transfer to a procedural area)1007 (Unhold - Provider: Orders Generic Provider)2225 ($Given - Provider: Florence Emery RN) naloxone (NARCAN) injection 0.2 mg(Linked Group 5) 0.2 mg (0.05748 mg/kg), Intravenous, EVERY 2 MIN PRN, opioid reversal, Starting on Gemma 11/29/22 at 0447, Administer intravenous route when available and notify [...] have not improved after 4 naloxone doses. 0629 (Auto Hold - Provider: Orders Generic Provider - Reason: Transfer to a procedural area)1007 (Unhold - Provider: Orders Generic Provider) naloxone (NARCAN) injection 0.2 mg(Linked Group 5) 0.2 mg (0.45770 mg/kg), Intramuscular, EVERY 2 MIN PRN, opioid reversal, Starting on Gem[facility] 11/29/22 at 0447, Administer intramuscular if an intravenous route is [...] have not improved after 4 naloxone doses. 0629 (Auto Hold - Provider: Orders Generic Provider - Reason: Transfer to a procedural area)1007 (Unhold - Provider: Orders Generic Provider) naloxone (NARCAN) injection 0.4 mg(Linked Group 5) 0.4 mg (0.56932 mg/kg), Intravenous, EVERY 2 MIN PRN, opioid reversal, Starting on Gemma 11/29/22 at 0447, Administer intravenous route when available and notify [...] have not improved after 4 naloxone doses. 0629 (Auto Hold - Provider: Orders Generic Provider - Reason: Transfer to a procedural area)1007 (Unhold - Provider: Orders Generic Provider) naloxone (NARCAN) injection 0.4 mg(Linked Group 5) 0.4 mg (0.61238 mg/kg), Intramuscular, EVERY 2 MIN PRN, opioid reversal, Starting on Gemma 11/29/22 at 0447, Administer intramuscular if an intravenous route is [...] have not improved after 4 naloxone doses. 0629 (Auto Hold - Provider: Orders Generic Provider - Reason: Transfer to a procedural area)1007 (Unhold - Provider: Orders Generic Provider) Linked Groups Order Group 1: cloNIDine (CATAPRES) tablet 0.2 mgJump to med 0.2 mg, Oral, EVERY MORNING, First dose (after last modification) on Sat12/03/22 at 0800 And cloNIDine (CATAPRES) tablet 0.2 mgJump to med 0.2 mg (0.0048 mg/kg), Oral, EVERY EVENING, First dose (after last modification) on Sat12/02/22 at 2000 Group 2: nicotine (NICODERM CQ) 7 MG/24HR 24 hr patch 1 patchJump to med 1 patch, Transdermal, DAILY, Administer over 24 Hours, First dose on [facility] 11/29/22 at 1100, Reminder: Remove previous patch before applying new patch. And nicotine Patch in PlaceJump to med First dose on Gem[facility] 11/29/22 at 1400 Group 3: acetaminophen (TYLENOL) tablet 650 mgJump to med 650 mg (14.7 mg/kg), Oral, EVERY 6 HOURS PRN, mild pain, other, and adjunct with moderate or severe pain or per patient request, Starting on [facility] 11/29/22 at 0024, Alternate with ibuprofen if ordered. Maximum acetaminophen dose from all sources = 75 mg/kg/day not to exceed 4 grams/day. Or acetaminophen (TYLENOL) Suppository 650 mgJump to med 650 mg (14.7 mg/kg), Rectal, EVERY 6 HOURS PRN, mild pain, other, and adjunct with moderate or severe pain or per patient request, Starting on [facility] 11/29/22 at 0024, Alternate with ibuprofen if ordered. Maximum acetaminophen dose from all sources = 75 mg/kg/day not to exceed 4 grams/day. Group 4: glucose gel 15-30 gJump to med 15-30 g (0.34-0.68 g/kg), Oral, EVERY 15 MIN PRN, low blood sugar, Starting on Gem[facility] 11/29/22 at 1048, Give 15 g for Blood Glucose 51 to 69 mg/dL IF patient is conscious and able to swallow. Give 30 g for Blood Glucose less than or equal to 50 mg/dL. IF patient is conscious and able to swallow. Do NOT give glucose gel via enteral tube. IF patient has enteral tube: give apple juice 120 mL (4 oz or 15 g of CHO) via enteral tube for Blood Glucose 51 to 69 mg/dL. Give apple juice 240 mL (8 oz or 30 g of CHO) via enteral tube for Blood Glucose less than or equal to 50 mg/dL. ~Oral gel is preferable for conscious and able to swallow patient. ~IF gel unavailable or patient refuses may provide apple juice 120 mL (4 oz or 15 g of CHO). Document juice on I and O flowsheet. Or dextrose 10% BOLUS 88 mLJump to med 88 mL (rounded from 88.2 mL = 2 mL/kg ? 44.1 kg), Intravenous, EVERY 15 MIN PRN, Repeat until glucose value greater than 70 mg/dL, Starting on [facility] 11/29/22 at 1048, Use for hypoglycemia with glucose less than or equal to 50 mg/dL in the NPO or unconscious/not alert patient with IV access. Or glucagon injection 0.5-1 mgJump to med 0.5-1 mg (0.0113-0.0227 mg/kg), Subcutaneous, EVERY 15 MIN PRN, low blood sugar, May repeat x 1 only.?, Starting on Gem[facility] 11/29/22 at 1048, May give SQ or IM. Dose 0.5 mg if LESS than 5 years old, 1 mg if 5 years or older. ONLY use glucagon IF patient has NO IV access AND is unable/unwilling to swallow AND blood glucose LESS than or EQUAL to 50 mg/dL. Group 5: naloxone (NARCAN) injection 0.2 mgJump to med 0.2 mg (0.96119 mg/kg), Intravenous, EVERY 2 MIN PRN, opioid reversal, Starting on [facility] 11/29/22 at 0447, Administer intravenous route when available and notify [...] injection 0.4 mgJump to med 0.4 mg (0.14555 mg/kg), Intravenous, EVERY 2 MIN PRN, opioid reversal, Starting on [facility] 11/29/22 at 0447, Administer intravenous route when available and notify [...] injection 0.2 mgJump to med 0.2 mg (0.97526 mg/kg), Intramuscular, EVERY 2 MIN PRN, opioid reversal, Starting on [facility] 11/29/22 at 0447, Administer intramuscular if an intravenous route is [...] injection 0.4 mgJump to med 0.4 mg (0.95801 mg/kg), Intramuscular, EVERY 2 MIN PRN, opioid reversal, Starting on [facility] 11/29/22 at 0447, Administer intramuscular if an intravenous route is [...] have not improved after 4 naloxone doses. 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
--- OUTSIDE RECORDS SUMMARY | 2023-02-22 16:16 | XMS_ITS | Encounter Summary ---
Author Name Unknown Organization [facility] Address [address] [place] [address] Care Team Providers Care Foreclosure Field Inspector Name Role Phone Man Adan Primary Care Provider [phone] Reason for Visit * Auth/Cert (Routine) Specialty Diagnoses / Procedures Referred By Contac t Referred To Contact Orthopedics Diagnoses SOB (shortness of breath) Hyperkalemia, weakness SOB (shortness of breath) [facility] [address] [place] [address] Referral ID Status Reason Start Date Expiration Date Visits Re quested Visits Authorized [id number] 1 1 Encounter Details Date Type Department Care Team ([facility] Contact Info) Description 12/04/2022 7:20 AM CDT - 12/04/2022 8:20 AM CDT Surgery [facility] PeriOp Services [address] [place] [address] Rajan Hernandez MD [address] [place] [address] REMOVAL PERITONEAL DIALYSIS CATHETER Surgery Details Date/Time Status Location OR Service Patient Class Case Class Case Type Trauma Case? 12/04/22 7:20 AM Posted RH OR OR 15 General Inpatient NEST 6 - Semi-Urge nt (within 72hrs) Panel 1 Procedure LRB Anes Op Region Wound Class Comments REMOVAL PERITONEAL DIALYSIS CATHETER N/A General Abdomen IV-Dirty or Infected Surgeon Surgeon Role Service Panel Rajan Hernandez MD Primary General 1 documented in this encounter Social History [...] Sign Reading Time Taken Comments Blood Pressure 128/65 12/04/2022 6:37 AM CDT Pulse 66 12/04/2022 6:37 AM CDT Temperature 37.2 ??C (99 ??F) 12/04/2022 6:37 AM CDT Respiratory Rate 17 12/04/2022 6:37 AM CDT Oxygen Saturation 99% 12/04/2022 6:37 AM CDT Inhaled Oxygen Concentration - - Weight 42.4 kg (93 lb 6.4 oz) 12/04/2022 4:36 AM CDT Height 154.9 cm (5' 1) 11/28/2022 11:27 PM CDT Body Mass Index 18.57 11/28/2022 11:27 PM CDT documented in this encounter Discharge Summaries * Lisa Ospina MD - 12/06/2022 8:12 AM CDT [facility] Hospitalist Discharge Summary Date of [...] for hospital follow- up. Follow up with boiler room operator as directed for lab monitoring and medication changes. You have several doses of your antibiotics that will be given at your dialysis sessions. Your dialysis will be : [facility] [address] [place] [address] Your first outpatient run will [...] s/p IV remdesivir, who presented 11/28/2022 to [place] ED with complaint of ongoing weakness and shortness of breath eventually transferred to [facility] as patient is on peritoneal dialysis. [facility] peritonitis 2/ corynebacterium stratum. PD catheter removed 12/04. Now [...] minutes discharging this patient. Lisa Ospina MD [facility] [address] [facility] [address] Physical Exam Vital Signs: Temp: 97.9 ??F [...] for hospital follow- up. Follow up with boiler room operator as directed for lab monitoring and medication changes. You have several doses of your antibiotics that will be given at your dialysis sessions. Your dialysis will be : [facility] [address] [place] [address] Your first outpatient run will be on [...] 300 mg by mouth 3 times daily sywawzaj-topifebcx-peeHZISAzefoh (MAXITROL) 3.5-44324-1.[address] 0.25 inches Into the [...] Lisinopril-Hydrochlorothiazide Rash Niacin Rash and Itching itch [place] Rash Pioglitazone Rash Itchy rash documented in this encounter Discharge Instructions * Discharge Instructions* Olga Guzman RN - 12/06/2022 11:56 AM CDT You will get your outpatient dialysis at: [facility] [address] [place] [address] Your first outpatient run will be on [...] by mouth 2 times daily 0 03/01/2022 okeinonw-injqwoylw-gye AMETHasone (MAXITROL) 3.5-64129-5.[address] 0.25 inches Into the [...] as of this encounter Progress Notes * LUMA SUAZO - 12/06/2022 2:37 PM CDT Care Management Discharge Note Discharge Date: 12/06/2022 Discharge Disposition: home Discharge Transportation: taxi Additional Information: SW ordered taxi through [facility] since pt has no other means of transportation, see Sws note yesterday for more info. Luma Suazo, CHIROPRACTIC PRACTICE MANAGER, FURNACE CARETAKER Inpatient Care Coordination [facility] [phone] * Olga Guzman RN - 12/06/2022 11:57 AM CDT Care Management Discharge Note Discharge Date: 12/06/2022 Discharge Disposition: home Discharge Services: Dialysis Discharge DME: Discharge Transportation: family or friend will provide Private pay costs discussed: Not applicable Does the patient's insurance plan have a 3 day qualifying hospital stay waiver? No Education Provided on the Discharge Plan: yes Persons Notified of Discharge Plans: shipping room supervisor, staffing administrator, patient Patient/Family in Agreement with the Plan: yes Handoff Referral Completed: No Additional Information: Patient discharging to home via taxi. See note yesterday. Patient has no way to get home. Your dialysis will be : [facility] [address] [place] [address] Your first outpatient run will be on [...] because the room can be chilly. Jennifer Guzman, RN, BSN, CM Inpatient Care Coordination [facility] [phone] * Pipe Adorno MD - 12/06/2022 11:33 AM CDT [facility] Infectious Disease Progress Note Assessment and Plan: [...] only 2 cycles? -Dr. Gabriel Mena at [facility] PD clinic ([phone]-[place]) -fill volume of 1300 ml x 2 [...] Interval History: Dialysis run parameters reviewed with acute dialysis nurse at patient bedside. Seen on run 2.5 [...] oz) 42.4 kg (93 lb 6.4 oz) 12/06/22 0736 Weight: 44.6 kg (98 lb 4.8 oz) [...] interval not displayed. Recent Labs Lab 12/06/22 0606 12/05/22 0706 12/04/22 0738 12/03/22 0656 12/02/22 [...] 25.0 ug/mL Jonnathan Wood MD [facility] - Nephrology [phone] * Monika Jones RN - 12/06/2022 9:33 [...] to treatment See Adult Hemodialysis flowsheet in [facility] for further details and post assessment. Machine water alarm in place and functioning. Transducer pods intact and checked every 15min. Pt assisted with repositioning throughout dialysis treatment. Pt returned via wheelchair. Chlorine/Chloramine water system checked every 4 hours. Outpatient Dialysis at [facility], chair time pending. Post treatment report given to SUSANA Peguero regarding 0.5L of fluid removed, last BP 137/89. Please remove patient dressing on AVF and AVG needle sites 24 hours after dialysis. If leaking occurs please apply a Band-Aid. Monika Jones RN * LUMA SUAZO - 12/05/2022 4:03 PM CDT Care [...] in need for transportation back home to [place] tomorrow, per provider. SW met with pt to discuss transportation. Pt's sons are not able to draft roller picker pt since they don't have a DL. Pt's insurance doesn't have medical transport. Pt uses community transit for appts. Pt has no means of transportation home tomorrow. SW/CM will need to order a taxi after pt's dialysis tomorrow. JUAN Sandhu, [facility] Inpatient Care Coordination [facility] [phone] * Jonnathan Wood MD - 12/05/2022 2:52 PM CDT Renal Medicine Progress Note Malachi Marr Age: [age] year old Date of : 1945 Date of Admission: 11/28/2022 Hospital LOS: 6 Assessment/Plan: 77 y.o woman with ESRD and COVID 19 infection. # ESRD on PD: She does only 2 cycles? -Dr. Gabriel Mena at [facility] PD clinic ([phone]-[place]) -fill volume of 1300 ml x 2 [...] 25.0 ug/mL Jonnathan Wood MD [facility] - Nephrology [phone] * Jackeline Davenport - 12/05/2022 1:34 PM CDT [facility] - Progress Note Med/Surg Unit 6 Referral Source: Length of Stay Attempted to visit with pt Malachi but pt was on the phone. Plan: Will attempt to visit again tomorrow. [facility] remains available. Niraj Hawkins. Certified Registered Nurse Practitioner Dump Grounds Checker [facility] routine referrals *[id number] [facility] available 03/09 for emergent requests/referrals, either by paging the on-call forestry consultant or by entering an GENEVA/STAT consult in [facility] (this will also page the on-call forestry consultant). * Pipe Adorno MD - 12/05/2022 11:59 AM CDT [facility] Infectious Disease Progress Note Assessment and Plan: [...] Ospina MD - 12/05/2022 8:45 AM CDT [facility] Medicine Progress Note - Hospitalist Service Date of Admission: 11/28/2022 Assessment & Plan Malachi Daly is a 77-year-old female with a past medical history significant for end-stage renal disease on peritoneal dialysis, type 2 diabetes, hypertension, chronic pain, tobacco use disorder, COPD, recent COVID infection and hospitalization s/p IV remdesivir, who presented 11/28/2022 to [place] ED with complaint of ongoing weakness and shortness of breath eventually transferred to [facility] as patient is on peritoneal dialysis. [facility] peritonitis 2/2 corynebacterium stratum. PD catheter removed [...] optimize lung and help manage hyperK. -Holding LUMBER PILER lasix while transitioning to HD, likely resume [...] COVID-19 infection Patient was recently hospitalized at [facility] from 11/24- due to COVID-19 infection. She received IV remdesivir; not hypoxic so did not get dexamethasone. CXR 11/25 without any focal findings. She was discharged to home, however she continued to feel short of breath so returned to [place] ED. She underwent CT angiogram which did not show any PE per H&P. No records available in [facility]. Reports SILVER. Never hypoxic here, no [...] has Covid. Lisa Ospina MD Hospitalist Service [facility] Securely message with [employer] (more info) Text page via [employer] Paging/Directory Interval History Having pain overnight where [...] 5.4 (H) 26 4.04 (H) \ * Pipe Adorno MD - 12/04/2022 2:18 PM CDT [facility] Infectious Disease Progress Note Assessment and Plan: [...] am Comfortable post procedure Follows Am dialysis [facility] MWF Recent Labs Lab 12/04/22 0738 12/03/22 0656 POTASSIUM 4.4 5.0 Norma Wood [facility] [phone] * Nidia Yanez DO - 12/04/2022 7:37 AM CDT [facility] Medicine Progress Note - Hospitalist Service Date of Admission: 11/28/2022 Assessment & Plan Malachi Daly is a 77-year-old female with a past medical history significant for end-stage renal disease on peritoneal dialysis, type 2 diabetes, hypertension, chronic pain, tobacco use disorder, COPD, recent COVID infection and hospitalization s/p IV remdesivir, who presented 11/28/2022 to [place] ED with complaint of ongoing weakness and shortness of breath eventually transferred to [facility] as patient is on peritoneal dialysis. [facility] peritonitis 2/2 corynebacterium stratum. PD catheter removed [...] ESRD on previously on PD, initiating HD 10/23 With the above infection, PD catheter needs [...] optimize lung and help manage hyperK. -Holding LUMBER PILER lasix while transitioning to HD, likely resume [...] COVID-19 infection Patient was recently hospitalized at [facility] from 11/24- due to COVID-19 infection. She received IV remdesivir; not hypoxic so did not get dexamethasone. CXR 11/25 without any focal findings. She was discharged to home, however she continued to feel short of breath so returned to [place] ED. She underwent CT angiogram which did not show any PE per H&P. No records available in [facility]. Reports SILVER. Never hypoxic here, no [...] pending PT eval and antibiotic plan Nidia Yanez, DO Hospitalist Service [facility] Securely message with [employer] (more info) Text page via [facility] Paging/Directory Interval History No acute overnight events. PD catheter removed this morning. Doing well post procedure. Dyspnea is improving, very minimal dyspnea after walking to and from the bathroom. Denies fever/chills, abdominal pain, diarrhea, or other acute concerns. Physical Exam Vital Signs: Temp: 99 ??F (37.2 ??C) Temp src: Temporal BP: 128/65 Pulse: 66 Resp: 17 SpO2: 99 % P5Ikgxhb: None (Room air) Weight: 93 lbs 6.4 [...] to treatment See Adult Hemodialysis flowsheet in [facility] for further details and post assessment. Machine water alarm in place and functioning. Transducer pods intact and checked every 15min. Pt returned via wheelchair. Chlorine/Chloramine water system checked every 4 hours. Outpatient Dialysis at [facility] Patient repositioned every 2 hours during the [...] over to Hemodialysis today Cycler Serial Number: [id number] * Jonnathan Wood MD - 12/03/2022 2:22 [...] CO2 27 27 26 25 Norma Wood [facility] [phone] * Pipe Adorno MD - 12/03/2022 1:50 PM CDT [facility] Infectious Disease Progress Note Assessment and Plan: [...] laboratory data reviewed. Recent Labs Lab Test 12/03/22 0656 12/02/22 0639 12/01/22 0735 WBC 9.1 11.9* 11.8* HGB 9.2* 9.9* 9.5* HCT 25.5* 28.1* 27.8* MCV 99 95 96 PLT 293 279 280 Recent Labs Lab Test 12/03/22 0656 12/02/22 0639 12/01/22 0735 CR 4.90* 4.88* 4.78* No [...] only 2 cycles? -Dr. Gabriel Mena at [facility] PD clinic ([phone]-[place]) -fill volume of 1300 ml x 2 [...] for several years) HD today Out patient [facility] (MWF) IV vancomycin PD catheter out if [...] 2156 12/01/22 1242 12/01/22 0735 11/30/22 1203 11/30/22722 NA -- -- -- 127* -- 126* [...] this interval not displayed. Recent Labs Lab 12/03/2265512/02/2263812/01/2273411/30/2272211/29/22 0628 11/29/22 0213 CR 4.90* 4.88* 4.78* 4.78* 4.54* 4.58* Recent Labs Lab 11/30/22722 ALBUMIN 2.5* Recent Labs Lab 12/03/2265512/02/2239 12/01/2235 11/30/22722 HGB 9.2* 9.9* 9.5* 10.0* Vancomycin Date Value Ref Range Status 12/03/2022 27.6 (HH) ug/mL Final Comment: Traditional Dosing Therapeutic Range: Trough 10-15 ug/mL Peak 20-40 ug/mL Critical: Greater than 25.0 ug/mL Jonnathan Wood MD [facility] - Nephrology [phone] * Nidia Yanez, DO - 12/03/2022 8:57 AM CDT [facility] Medicine Progress Note - Hospitalist Service Date of Admission: 11/28/2022 Assessment & Plan Malachi Daly is a 77-year-old female with a past medical history significant for end-stage renal disease on peritoneal dialysis, type 2 diabetes, hypertension, chronic pain, tobacco use disorder, COPD, recent COVID infection and hospitalization is status post IV remdesivir who presented to [place] ED with complaint of ongoing weakness and shortness of breath eventually transferred to [facility] as patient is on peritoneal dialysis. [...] related to COVID than heart failure. -Holding LUMBER PILER lasix while transitioning to HD COVID-19 infection Gram-negative bacilli, Stenotrophomonas maltophilia, gram-positive cocci in sputum Patient was recently hospitalized at [facility] from 11/24- due to COVID-19 infection. She reported 1 week history of shortness of breath prior to hospitalization and tested positive on 11/24. She received IV remdesivir. She was not hypoxic hence did not get dexamethasone. Her chestx-ray 11/25 was without any focal findings. She was discharged to home however she continued to feel short of breath hence presented to the [place] ED. She underwent CT angiogram which did not show any PE per H&P. No records available in [facility]. She is currently on room air. [...] systemic steroid for now. -Refer to outpatient [facility] pulmonary rehab at the time of discharge [...] antibiotic plan Nidia Yanez DO Hospitalist Service [facility] Securely message with [employer] (more info) Text page via [facility] Paging/Directory Interval History No acute overnight events. [...] 5.0 27 4.90 (H) \ * Arsenio Carty, RT - 12/03/2022 6:08 AM CDT [facility] Date: 12/03/22 Admission Dx: Abd pain [...] patient assessment scoring and Acuity Level Details. Arsenio Carty, RT on 12/03/2022 at 6:10 AM [...] Lost Dwell: 12 minutes Cycler Serial Number: [id number] Total Treatment Volume: 2600mL Total treatment time: 5 hrs Fill Volume: 1300ml Last Fill Volume:0ml Heater ba.5% 6000mL with 120mg vanco; Lot #: [id number]; Expiration Date: 09/2024 Number of cycles including final fill: 2 Dwell Time: 123 minutes Last Fill Volume: 0ml Initial Drain Alarm: 0ml PD orders reviewed with Patient procedure and ESRD teaching done and questions answered. Cycler ready for hook-up. Report given to: Laura Welsh RN [facility] consent form signed yes. * Nidia Yanez, DO - 12/02/2022 8:35 AM CDT [facility] Medicine Progress Note - Hospitalist Service Date of Admission: 11/28/2022 Assessment & Plan Malachi Daly is a 77-year-old female with a past medical history significant for end-stage renal disease on peritoneal dialysis, type 2 diabetes, hypertension, chronic pain, tobacco use disorder, COPD, recent COVID infection and hospitalization is status post IV remdesivir who presented to [place] ED with complaint of ongoing weakness and shortness of breath eventually transferred to [facility] as patient is on peritoneal dialysis. [...] in sputum Patient was recently hospitalized at [facility] from 11/24- due to COVID-19 infection. She reported 1 week history of shortness of breath prior to hospitalization and tested positive on 11/24. She received IV remdesivir. She was not hypoxic hence did not get dexamethasone. Her chestx-ray 11/25 was without any focal findings. She was discharged to home however she continued to feel short of breath hence presented to the [place] ED. She underwent CT angiogram which did not show any PE per H&P. No records available in [facility]. She is currently on room air. [...] systemic steroid for now. -Refer to outpatient [facility] pulmonary rehab at the time of discharge [...] Peritoneal Dialysis Nidia Yanez DO Hospitalist Service [facility] Securely message with [employer] (more info) Text page via [facility] Paging/Directory Interval History No acute [...] Yanez DO - 12/01/2022 2:40 PM CDT [facility] Medicine Progress Note - Hospitalist Service Date of Admission: 11/28/2022 Assessment & Plan Malachi Daly is a 77-year-old female with a past medical history significant for end-stage renal disease on peritoneal dialysis, type 2 diabetes, hypertension, chronic pain, tobacco use disorder, COPD, recent COVID infection and hospitalization is status post IV remdesivir who presented to [place] ED with complaint of ongoing weakness and shortness of breath eventually transferred to [facility] as patient is on peritoneal dialysis. [...] in sputum Patient was recently hospitalized at [facility] from 11/24- due to COVID-19 infection. She reported 1 week history of shortness of breath prior to hospitalization and tested positive on 11/24. She received IV remdesivir. She was not hypoxic hence did not get dexamethasone. Her chestx-ray 11/25 was without any focal findings. She was discharged to home however she continued to feel short of breath hence presented to the [place] ED. She underwent CT angiogram which did not show any PE per H&P. No records available in [facility]. She is currently on room air. [...] Peritoneal Dialysis Nidia Yanez DO Hospitalist Service [facility] Securely message with [employer] ([employer] info) Text page via [employer] Paging/Directory Interval History No acute overnight events. [...] only 2 cycles? -Dr. Gabriel Mena at [facility] PD clinic ([phone]-[place]) -fill volume of 1300 ml x 2 [...] 11/26/22 0619 11/25/22 0054 11/24/22 2209 NA 127* -- -- -- -- -- [...] and imaging. Michele Chaudhary MD [facility] - Nephrology Office phone :[phone] Pager: [phone] * Monika Jonse RN - 12/01/2022 9:05 AM CDT Cycler set up per protocol and per treatment orders Results from previous treatment: 11/30/22 treatment Effluent color and clarity: not charted Total UF: 566 Initial Drain: 31 Avg Dwell: 131 Lost Dwell: 4 Cycler Serial Number: [id number] Total Treatment Volume: 2600 mL Total treatment time: 5 hrs Fill Volume: 1300 ml Last Fill Volume:0 ml Heater ba.5% 6000mL; Lot #: [id number]; Expiration Date: Oct 05 With 120mg Vancomycin added. Number of cycles including final fill: 2 Dwell Time: 2:13 minutes Last Fill Volume: 0ml Initial Drain Alarm: 0ml PD orders reviewed with Patient procedure and ESRD teaching done and questions answered. Cycler ready for hook-up. Report given to: SUSANA Obrien [facility] consent form signed: Yes * Deloris Welsh [...] No last fill Please call 3rd floor charge poster to unhook patient when machine reads End of Therapy. * Rohini Bradford MD - 11/30/2022 4:24 PM CDT [facility] Medicine Progress Note - Hospitalist Service Date of Admission: 11/28/2022 Assessment & Plan Malachi Daly is a 77-year-old female with a past medical history significant for end-stage renal disease on peritoneal dialysis, type 2 diabetes, hypertension, chronic pain, tobacco use disorder, COPD, recent COVID infection and hospitalization is status post IV remdesivir who presented to [place] ED with complaint of ongoing weakness and shortness of breath eventually transferred to [facility] as patient is on peritoneal dialysis. [...] in sputum Patient was recently hospitalized at [facility] from 11/24- due to COVID-19 infection. She reported 1 week history of shortness of breath prior to hospitalization and tested positive on 11/24. She received IV remdesivir. She was not hypoxic hence did not get dexamethasone. Her chestx-ray 11/25 was without any focal findings. She was discharged to home however she continued to feel short of breath hence presented to the [place] ED. she underwent CT angiogram which did not show any PE per H&P. No records available in [facility]. She is currently on room air. [...] systemic steroid for now. -Refer to outpatient [facility] pulmonary rehab at the time of discharge [...] Peritoneal Dialysis Rohini Bradford MD Hospitalist Service [facility] Securely message with [employer] (more info) Text page via [facility] Paging/Directory Interval History Patient refused [...] PAST 24 HR DATA REVIEWED * Frankie Cary RT - 11/30/2022 2:24 PM CDT Images from the original note were not included. [facility] Respiratory Care Note [facility] Date:11/30/2022 Admission Dx: COVID+ Pulmonary History: [...] EXAM: XR CHEST PORT 1 VIEW LOCATION: [facility] DATE: 11/29/2022 INDICATION: shortness of [...] 300 mg by mouth 3 times daily gptaxqgd-szqyxzcqg-zwmYCBPPdkxqb (MAXITROL) 3.5-82243-6.1 ophthalmic ointment Yes No Sig: Place 0.25 [...] irritation Facility-Administered Medications: None Frankie Cary RT [facility] 11/30/2022 * Michele Chaudhary MD - 11/30/2022 1:59 PM CDT Renal Medicine Progress Note Assessment/Plan: 77 y.o woman with ESRD and COVID 19 infection. # ESRD on PD: She does only 2 cycles? [facility] [facility] PD clinic ([phone]-[place]) -fill volume of 1300 ml x 2 [...] recheck ordered for 1899 # I called [facility] unit in [place], in [place] and their on-call PD team I discussed [...] and imaging. Michele Chaudhary MD [facility] Consultants - Nephrology Office phone :[phone] Pager: [phone] * Rohini Bradford MD - 11/29/2022 3:49 PM CDT [facility] Medicine Progress Note - Hospitalist Service Date of Admission: 11/28/2022 Assessment & Plan Malachi Daly is a 77-year-old female with a past medical history significant for end-stage renal disease on peritoneal dialysis, type 2 diabetes, hypertension, chronic pain, tobacco use disorder, COPD, recent COVID infection and hospitalization is status post IV remdesivir who presented to [facility] ED with complaint of ongoing weakness and shortness of breath eventually transferred to [facility] as patient is on peritoneal dialysis. [...] COVID-19 infection Patient was recently hospitalized at [facility] from 11/24- due to COVID-19 infection. She reported 1 week history of shortness of breath prior to hospitalization and tested positive on 11/24. She received IV remdesivir. She was not hypoxic hence did not get dexamethasone. Her chestx-ray 11/25 was without any focal findings. She was discharged to home however she continued to feel short of breath hence presented to the [facility] ED. she underwent CT angiogram which did not show any PE per H&P. No records available in [facility]. She is currently on room air. She reported mainly difficulty breathing with exertion. She denied any fever, chills, diarrhea, myalgias. she was transferred to [facility] mainly because of the unavailability of peritoneal dialysis at [facility]. -Status post IV remdesivir -Patient is almost [...] Peritoneal Dialysis Rohini Bradford MD Hospitalist Service [facility] Securely message with Vocera (more info) Text page via [facility] Paging/Directory Interval History No acute [...] and per treatment orders Cycler Serial Number: [id number] Total Treatment Volume: 2600mL Total treatment time: 5 hrs Fill Volume: 1300ml Last Fill Volume:0ml Heater ba.5% 6000mL; Lot #: [id number]; Expiration Date: 10/05 Cassette Lot: [id number], exp. Number of cycles including final fill: 2 Dwell Time: 2:13 minutes Last Fill Volume: 0ml Initial Drain Alarm: 0ml PD orders reviewed with Patient procedure and ESRD teaching done and questions answered. [facility] [place] [place] to [place] transfer set adapter/extension applied and PD effluent and swab culture, gram stain and cell count samples sent per [employer] orders. New dressing applied and antibiotic ointment [...] Factors Present on Admission Source Note - Pipe Adorno MD - 11/30/2022 3:31 PM CDT [facility] Infectious Disease Consultation Date of Admission: [...] sensitivities which are unpredictable for this organism Pipe Adorno MD Reason for Consult Reason for [...] 300 mg by mouth 3 times daily gfcpgeol-fugozyjnx-mwjYQHYUnjzed (MAXITROL) 3.5-79840-6.1 ophthalmic ointment 11/28/2022 at am SelfYes Yes [...] any previous visit. * Stormy Ontiveros MD, MD - 11/28/2022 11:52 PM CDT [facility] History and Physical - Hospitalist Service Date of Admission: 11/28/2022 Assessment & Plan Malachi Marr is a 77 year old female admitted on 11/28/2022. She PMHx of ESRD on PD, DM2, HTN, chronic pain, tobacco use, COPD who presents as a transfer from [facility]. He was recentlyhospitalized at [facility] between 24 November to 26 November with COVID 19 pneumonia, it seems she was not hypoxic and did not require any dexamethasone. She was given IV remdesivir. Shewent back to the ER at [facility] on 28 November for weakness and shortness [...] of self she was brought here as [facility] has no ability to perform peritoneal dialysis. [...] CT chest imaging which was obtained at [facility] ER results and images are pending. However, [...] Disposition Plan Morales Ontiveros MD Hospitalist Service [facility] Securely message with [employer] (more info) Text page via [facility] Paging/Directory Chief Complaint SOB, weakness. History is obtained from the patient History of Present Illness Malachi Marr is a 77 year old female who PMHx of ESRD on PD, DM2, HTN, chronic pain, tobacco use, COPD who presents as a transfer from [facility]. He was recently hospitalized at [facility] between 24 November to 26 November with COVID 19 pneumonia, it seems she was not hypoxic and did not require any dexamethasone. She was given IV remdesivir. She went back to the ER at [facility] on 28 November for weakness and shortness [...] of self she was brought here as [facility] has no ability to perform peritoneal dialysis. [...] 300 mg by mouth 3 times daily mmfslfol-weoxzhyla-oefNJHECcarys (MAXITROL) 3.5-91748-0.1 ophthalmic ointment Yes No Sig: Place 0.25 [...] applicable Additional Information: Patient is accepted at [facility] for MWF. DIANA has not been given a chair timeand [facility] does not know. They provided sit number [phone] and CM called. There is no answer and CM left VM to 2 different people at site. In addition, their business hours are MWF. CM called [facility] again. The Physical Therapist Center Manager spoken to emailed the Regional Directorand advertising supervisor to obtain the chair time. Hospitalist informed. Addendum 1210 CM spoke with [employer] who was informed a chair time of 1200, to arrive by 1115. CM call [facility] Admissions number to see if any one had responded and to inform o Nephrologists time he was informed. They state that is the time if he was informed and no one has been in contact. CM will place time of 1200 with tomorrow arrival of 1115 for first time per [facility] admissions. Jennifer Guzman RN, BSN, CM Inpatient Care Coordination [facility] [phone] * Olga Guzman RN - 12/04/2022 2:02 [...] Assessment Patient's communication style: (P) spoken language (Divehi or Bilingual) Hearing Difficulty or Deaf: no [...] ADL Functioning Additional Information: Patient transferred from [facility] as patient on PD. Patient developed peritonitis [...] does not drive. CM will initiate the [id number] dialysis. Patient will dialyze at [facility]. Addendum [phone] After phone call and gathering the information, the initial paper work was faxed to [facility]. Jennifer Guzman RN, BSN, CM Inpatient Care Coordination [facility] [phone] * Rajan Hernandez MD - 12/04/2022 9:05 AM CDTAssociated Order(s): SURGERY GENERAL IP CONSULT PD catheter removed, see op note from today. Remove wick packing 48 hours post op. * Pipe Adorno MD - 11/30/2022 3:31 PM CDTAssociated Order(s): INFECTIOUS DISEASES IP CONSULT [facility] Infectious Disease Consultation Date of Admission: [...] sensitivities which are unpredictable for this organism Pipe Adorno MD Reason for Consult Reason for [...] 300 mg by mouth 3 times daily druybsph-jnrvkrhdf-falLFHDTpkveb (MAXITROL) 3.5-30305-3.1 ophthalmic ointment 11/28/2022 at am SelfYes Yes [...] mouth 3 times daily 11/28/2022 at am fvumlivc-tnkkirsri-saxPCWKBhfxbu (MAXITROL) 3.5-08472-4.[address] 0.25 inches Into the [...] ointment Left Eye 4x Daily Given at 11/30/22835 gentamicin (GARAMYCIN) 0.1 % cream Topical Daily [...] Units Subcutaneous TID AC 1 Units at 729 insulin aspart (NovoLOG) injection (RAPID ACTING) 1-5 [...] Abnormality Status --------- ------ Cell Count Body Fluid[[id number]] Final result Differential Body Fluid[[id number]] Final result Please view results for these [...] EXAM: XR CHEST PORT 1 VIEW LOCATION: [facility] DATE: 11/29/2022 INDICATION: shortness of [...] and shortnessof breath. She was hospitalized at [facility] from 11/24- for COVID 19 infection. She went back to the [facility] ER due to worsening weakness and shortness [...] cervical LABS: CBC RESULTS: Recent Labs Lab 11/29/2221211/24/229 WBC 8.9 6.9 RBC 3.61* 4.16 HGB 10.9* 12.2 HCT 33.5* 37.5 PLT 258 271 BMP RESULTS: Recent Labs Lab 11/29/22 1051 11/29/22 0838 11/29/22 0750 11/29/22 0628 11/29/22 0553 11/29/22 0426 11/29/22 0301 11/29/22 0213 11/26/22 0908 11/26/22 0619 11/25/22 0054 11/24/222208 NA -- -- -- 129* -- -- [...] only 2 cycles? -Dr. Gabriel Mena at [facility] PD clinic -fill volume of 1300 ml [...] analysis results. Michele Chaudhary MD [facility] Consultants - Nephrology Office Pager: [phone] documented in this encounter Miscellaneous Notes * [...] * Pharmacy-Vancomycin Dosing Service - Lina Leonard [facility] - 12/05/2022 3:11 PM CDT Pharmacy Vancomycin [...] goal(s). See goals on Care Plan in [facility] electronic health record for goal details. Goals met Pt at baseline with all mobility Therapy recommendation(s): No further therapy is recommended. Pt encouraged to continue with daily walking to increase strength and activity tolerance following recent COVID Goal Outcome Evaluation: * Plan of Care - Florence Emery, SUSANA - 12/05/2022 5:07 AM CDT Goal Outcome [...] peritoneal dialysis catheter. Surgeon: Rajan Hernandez MD Wind Turbine Machinist(s): Germania Bradford MS-3 Anesthesia: General Estimated blood [...] A&Ox4, Vitals stable on RA. Reporting pain 9/10 this evening, given scheduled oxycodone. Blood sugar 340, given 3 units of sliding scale. Plan for NPO midnight for procedure * Pharmacy-Vancomycin Dosing Service - Arsenio Mayo RPH - 12/03/2022 9:17 PM CDT Pharmacy Vancomycin [...] 200 mL/hr over 1 Hours Intravenous ONCE 12/03/225 11/30/[address] [place] - receiving [...] PLT: 293 HGB: 9.2 BS: 87 (12/03 0801) Admitting Diagnosis: Covid (+) Pertinent History: ESRD Living Situation: home with family Pain plan: denies Mobility: assistance, stand-by, gait belt and walker Baseline activity: walker Alarms/Safety: Bed Alarm LDA's: Peripheral Pertinent test results: creatinine 4.90 Consults: PT Abnormals/Pending: Na 127, creatinine Other Cares/Comments: on dialysis Discharge Disposition: Home with Self care/family Discharge Time: to be decided Held kelly per . SILVER. Continue to cough. Had dialysis today [...] Outcome Evaluation: Plan of Care Reviewed With: [id number] RN Patient VS are at baseline: Yes [...] * Pharmacy-Vancomycin Dosing Service - Bonnie Wilks [facility] - 11/30/2022 2:57 PM CDT Pharmacy Vancomycin [...] 11:29 PM CDT Went in room to hospice superintendent to peritoneal dialysis and pt refused. States [...] and dilaudid. Peritoneales dialysis set up by acute dialysis nurse. * Utilization Review - Karthik Morrow MD [...] MD Physician Advisor Utilization Review/ Case Management [facility]. * Pharmacy-Admission Medication History - Lukasz Smith RPH - 11/29/2022 10:49 AM CDT Pharmacist Admission Medication History Admission medication history is complete. The information provided in this note is only as accurateas the sources available at the time of the update. Information Source(s): Patient, Clinic records, and Hospital records via in-person Pertinent Information: Patient was just discharged from [facility] on 11/26. There were no medication changes since then. Patient is due to receive her bowel regimen (miralax, senna, and sorbitol) today. Changes made to [facility] medication list: Added: None Deleted: None Changed: None Allergies reviewed with patient and updates made in EHR: yes Medication History Completed By: Lukasz Smith RPH 11/29/2022 10:49 AM [facility] Med List Medication Sig Last Dose albuterol [...] mouth 3 times daily 11/28/2022 at am urwulcmd-vclniiznp-vqxOEBFJkqtgc (MAXITROL) 3.5-42889-1.[address] 0.25 inches Into the [...] AM CDT Goal Outcome Evaluation: Received from [facility] via EMS around 11 pm patient alert, [...] - 99 mg/dL 12/06/2022 12:11 PM CDT LABORATORY POC Blood, Capillary BLOOD SPECIMEN / Unknown 12/06/2022 12:04 PM CDT 12/06/2022 12:11 PM CDT Stormy Ontiveros MD, MD [facility] - [facility] POCT LABORATORY [facility] [address] Lab (1st floor, no room number) [place] [address], [facility] [phone] * (ABNORMAL) Basic metabolic panel (12/06/2022 6:06 AM CDT) Sodium 126(L) 135 - 145 mmol/L 12/06/2022 [...] - 0.95 mg/dL 12/06/2022 6:37 AM CDT [facility] LABORATORY GFR Estimate 10(L) >60 mL/min/1. 73m2 12/06/2022 6:37 AM CDT [facility] LABORATORY Calcium 8.4(L) 8.8 - 10.2 mg/dL 12/06/2022 6:37 AM CDT [facility] LABORATORY Glucose 157(H) 70 - 99 mg/dL 12/06/2022 6:37 AM CDT [facility] LABORATORY Blood STRUCTURE OF RIGHT HAND / Unknown Venipuncture / Unknown 12/06/2022 6:06 AM CDT 12/06/2022 6:16 AM CDT Lisa Ospina DO LAB - BLOOD ORDERABL ES [facility] Lab [address] Lab (1st floor, no room number) [place] [phone], [facility] [phone] * Glucose by meter (12/06/2022 2:02 AM CDT) GLUCOSE BY METER POCT 93 70 - 99 mg/dL 12/06/2022 2:10 AM CDT LABORATORY POC Blood, Capillary BLOOD SPECIMEN / Unknown 12/06/2022 2:02 AM CDT 12/06/2022 2:10 AM CDT Stormy Ontiveros MD, LAB - [facility] POCT LABORATORY [facility] [address] Lab (1st floor, no room number) [place] [address], [place] [phone] * (ABNORMAL) Glucose by meter (12/05/2022 9:16 PM CDT) GLUCOSE BY METER POCT 267(H) 70 - 99 mg/dL 12/05/2022 9:23 PM CDT RH LABORATORY POC Blood, Capillary BLOOD SPECIMEN / Unknown 12/05/2022 9:16 PM CDT 12/05/2022 9:23 PM CDT Stormy Ontiveros MD, MD LAB - [facility] POCT LABORATORY [facility] [address] Lab (1st floor, no room number) [place] [address], [place] [phone] * (ABNORMAL) Glucose by meter (12/05/2022 5:05 PM CDT) GLUCOSE BY METER POCT 146(H) 70 - 99 mg/dL 12/05/2022 5:12 PM CDT LABORATORY POC Blood, Capillary BLOOD SPECIMEN / Unknown 12/05/2022 5:05 PM CDT 12/05/2022 5:12 PM CDT MD TABITHA Leigh MD - RONNY POCT Performing Organization Address City/[facility]/ZIP Co de Phone Number LABORATORY [facility] [address] Lab (1st floor, no room number) [place] [address], [place] [phone] * (ABNORMAL) Glucose by meter (12/05/2022 11:40 AM CDT) GLUCOSE BY METER POCT 195(H) 70 - 99 mg/dL 12/05/2022 11:48 AM CDT LABORATORY POC Blood, Capillary BLOOD SPECIMEN / Unknown 12/05/2022 11:40 AM CDT 12/05/2022 11:48 AM CDT MD TABITHA Leigh MD - RONNY POCT LABORATORY [facility] Lab [address] Lab (1st floor, no room number) [place] [address], [place] [phone] * (ABNORMAL) Glucose by meter (12/05/2022 7:38 AM CDT) GLUCOSE BY METER POCT 198(H) 70 - 99 mg/dL 12/05/2022 7:45 AM CDT RH LABORATORY POC Blood, Capillary BLOOD SPECIMEN / Unknown 12/05/2022 7:38 AM CDT 12/05/2022 7:45 AM CDT Stormy Ontiveros MD, MD LAB - [facility] POCT RH LABORATORY POC [facility] Lab [address] Lab (1st floor, no room number) [place] [address], [facility] [phone] * (ABNORMAL) Basic metabolic panel (12/05/2022 7:06 AM CDT) Sodium 125(L) 135 - 145 mmol/L 12/05/2022 7:44 AM CDT LABORATORY Comment:Reference intervals for this [...] - 15 mmol/L 12/05/2022 7:44 AM CDT RH LABORATORY Urea Nitrogen 34.8(H) 8.0 - 23.0 mg/dL 12/05/2022 7:44 AM CDT RH LABORATORY Creatinine 4.04(H) 0.51 - 0.95 mg/dL 12/05/2022 7:44 AM CDT LABORATORY GFR Estimate 11(L) >60 mL/min/1. 73m2 12/05/2022 7:44 AM CDT LABORATORY Calcium 8.6(L) 8.8 - 10.2 mg/dL 12/05/2022 7:44 AM CDT RH LABORATORY Glucose 208(H) 70 - 99 mg/dL 12/05/2022 7:44 AM CDT RH LABORATORY Blood STRUCTURE OF LEFT HAND / Unknown Venipuncture / Unknown 12/05/2022 7:06 AM CDT 12/05/2022 7:15 AM CDT Nidia Yanez DO LAB - BLOOD ORDER JOSEFA RH LABORATORY [facility] Lab [address] [facility] Lab (1st floor, no room number) [place] [address], [facility] [phone] * (ABNORMAL) CBC with platelets (12/05/2022 7:06 [...] Yanez DO LAB - BLOOD ORDER JOSEFA [facility] Acute Care Lab [address] Lab (1st floor, no room number) [place] [address], [place] [phone] * (ABNORMAL) Vancomycin level (12/05/2022 7:06 AM CDT) Vancomycin 27.8(HH) ug/mL 12/05/2022 8:09 AM CDT LABORATORY Comment: Traditional Dosing Therapeutic Range: Trough 10-15 ug/mL Peak 20-40 ug/mL Critical: Greater than 25.0 ug/mL Blood STRUCTURE OF LEFT HAND / Unknown Venipuncture / Unknown 12/05/2022 7:06 AM CDT 12/05/2022 7:15 AM CDT Nidia Yanez DO LAB - BLOOD ORDER JOSEFA Performing Organization Address City/[facility]/ZIP Co de Phone Number [facility] Care Lab [address] Lab (1st floor, no room number) [place] [address], [place] [phone] * (ABNORMAL) Glucose by meter (12/05/2022 1:49 AM CDT) GLUCOSE BY METER POCT 209(H) 70 - 99 mg/dL 12/05/2022 1:56 AM CDT LABORATORY POC Blood, Capillary BLOOD SPECIMEN / Unknown 12/05/2022 1:49 AM CDT 12/05/2022 1:56 AM CDT Stormy Ontiveros MD, MD [facility] - [facility] POCT [facility] Lab [address] Lab (1st floor, no room number) [place] [address], [place] [phone] * (ABNORMAL) Glucose by meter (12/04/2022 10:02 PM CDT) GLUCOSE BY METER POCT 261(H) 70 - 99 mg/dL 12/04/2022 10:09 PM CDT LABORATORY POC Blood, Capillary BLOOD SPECIMEN / Unknown 12/04/2022 10:02 PM CDT 12/04/2022 10:09 PM CDT Stormy Ontiveros MD, MD LAB - RONNY POCT Performing Organization Address [facility]/ZIP Co de Phone Number LABORATORY [facility] [address] Lab (1st floor, no room number) [place] [phone], [place] [phone] * (ABNORMAL) Glucose by meter (12/04/2022 6:19 PM CDT) GLUCOSE BY METER POCT 290(H) 70 - 99 mg/dL 12/04/2022 6:25 PM CDT LABORATORY POC Blood, Capillary BLOOD SPECIMEN / Unknown 12/04/2022 6:19 PM CDT 12/04/2022 6:25 PM CDT MD TABITHA Leigh MD - RONNY POCT Performing Organization Address [facility] Co de Phone Number LABORATORY [facility] Lab [address] Lab (1st floor, no room number) [place] [address], [place] [phone] * (ABNORMAL) Glucose by meter (12/04/2022 12:28 PM CDT) GLUCOSE BY METER POCT 303(H) 70 - 99 mg/dL 12/04/2022 12:41 PM CDT LABORATORY POC Blood, Capillary BLOOD SPECIMEN / Unknown 12/04/2022 12:28 PM CDT 12/04/2022 12:41 PM CDT MD TABITHA Leigh MD POCT Performing Organization Address City/[facility]/ZIP Co de Phone Number LABORATORY POC [facility] Lab [address] Lab (1st floor, no room number) [place] [address], [facility] [phone] * Glucose by meter (12/04/2022 9:30 AM CDT) GLUCOSE BY METER POCT 92 70 - 99 mg/dL 12/04/2022 9:37 AM CDT RH LABORATORY POC Comment:Dr/RN Notified Blood, Capillary BLOOD SPECIMEN / Unknown 12/04/2022 9:30 AM CDT 12/04/2022 9:37 AM CDT Stormy Ontiveros MD, LAB - [facility] POCT RH LABORATORY POC [facility] Lab [address] Lab (1st floor, no room number) [place] [address], [facility] [phone] * (ABNORMAL) CBC with platelets (12/04/2022 7:38 [...] - 450 10e3/uL 12/04/2022 7:45 AM CDT LABORATORY Blood STRUCTURE OF RIGHT UPPER LIMB / Unknown Venipuncture / Unknown 12/04/2022 7:38 AM CDT 12/04/2022 7:42 AM CDT Nidia Patinomquist DO LAB - BLOOD ORDER JOSEFA LABORATORY [facility] Lab [address] Lab (1st floor, no room number) [place] [address] [phone] * (ABNORMAL) Basic metabolic panel (12/04/2022 7:38 [...] - 99 mg/dL 12/04/2022 8:00 AM CDT RH LABORATORY Blood STRUCTURE OF RIGHT UPPER LIMB / Unknown Venipuncture / Unknown 12/04/2022 7:38 AM CDT 12/04/2022 7:42 AM CDT Nidia Yanez DO LAB - BLOOD ORDER JOSEFA LABORATORY [facility] Lab [address] Lab (1st floor, no room number) [place] [id number], [place] [phone] * (ABNORMAL) Glucose by meter (12/04/2022 1:53 AM CDT) GLUCOSE BY METER POCT 145(H) 70 - 99 mg/dL 12/04/2022 2:11 AM CDT RH LABORATORY POC Blood, Capillary BLOOD SPECIMEN / Unknown 12/04/2022 1:53 AM CDT 12/04/2022 2:11 AM CDT MD TABITHA Leigh MD - RONNY POCT LABORATORY [facility] Lab [address] Lab (1st floor, no room number) [place] [address], [place] [phone] * (ABNORMAL) Glucose by meter (12/03/2022 10:00 PM CDT) GLUCOSE BY METER POCT 340(H) 70 - 99 mg/dL 12/03/2022 10:07 PM CDT LABORATORY POC Blood, Capillary BLOOD SPECIMEN / Unknown 12/03/2022 10:00 PM CDT 12/03/2022 10:07 PM CDT MD TABITHA Leigh MD - RONNY POCT LABORATORY [facility] Lab [address] Lab (1st floor, no room number) [place] [address], [place] [phone] * Vancomycin level (12/03/2022 8:17 PM CDT) Vancomycin 20.5 ug/mL 12/03/2022 8:54 PM CDT LABORATORY Comment: Traditional Dosing Therapeutic Range: Trough 10-15 ug/mL Peak 20-40 ug/mL Critical: Greater than 25.0 ug/mL Blood STRUCTURE OF RIGHT HAND / Unknown Venipuncture / Unknown 12/03/2022 8:17 PM CDT 12/03/2022 8:29 PM CDT Nidia Yanez DO LAB - BLOOD ORDER JOSEFA LABORATORY [facility] Lab [address] Lab (1st floor, no room number) [place] [address], [place] [phone] * (ABNORMAL) Glucose by meter (12/03/2022 5:36 PM CDT) GLUCOSE BY METER POCT 111(H) 70 - 99 mg/dL 12/03/2022 5:42 PM CDT LABORATORY POC Blood, Capillary BLOOD SPECIMEN / Unknown 12/03/2022 5:36 PM CDT 12/03/2022 5:42 PM CDT Stormy Ontiveros MD, MD LAB - [facility] POCT LABORATORY POC [facility] Lab [address] Lab (1st floor, no room number) [place] [address], [place] [phone] * (ABNORMAL) Glucose by meter (12/03/2022 11:14 AM CDT) GLUCOSE BY METER POCT 155(H) 70 - 99 mg/dL 12/03/2022 11:21 AM CDT LABORATORY POC Blood, Capillary BLOOD SPECIMEN / Unknown 12/03/2022 11:14 AM CDT 12/03/2022 11:21 AM CDT Stormy Ontiveros MD, MD LAB - [employer] POCT LABORATORY [facility] Lab [address] Lab (1st floor, no room number) [place] [phone], [place] [phone] * Glucose by meter (12/03/2022 8:01 AM CDT) GLUCOSE BY METER POCT 87 70 - 99 mg/dL 12/03/2022 8:08 AM CDT LABORATORY POC Blood, Capillary BLOOD SPECIMEN / Unknown 12/03/2022 8:01 AM CDT 12/03/2022 8:08 AM CDT Stormy Ontiveros MD, MD LAB - [employer] POCT Performing Organization Address City/[facility]/ZIP Co de Phone Number LABORATORY [facility] Lab [address] Lab (1st floor, no room number) [place] [address], [place] [phone] * (ABNORMAL) Glucose by meter (12/03/2022 7:31 AM CDT) GLUCOSE BY METER POCT 66(L) 70 - 99 mg/dL 12/03/2022 7:37 AM CDT LABORATORY POC Blood, Capillary BLOOD SPECIMEN / Unknown 12/03/2022 7:31 AM CDT 12/03/2022 7:37 AM CDT Stormy Ontiveros MD, MD LAB - [employer] POCT LABORATORY [facility] Lab [address] Lab (1st floor, no room number) [place] [address], [place] [phone] * (ABNORMAL) CBC with platelets (12/03/2022 6:56 [...] LAB - BLOOD ORDER JOSEFA RH LABORATORY [facility] Lab [address] [facility] Lab (1st floor, no room number) [place] [address], [facility] [phone] * (ABNORMAL) Basic metabolic panel (12/03/2022 6:56 [...] - 29 mmol/L 12/03/2022 7:29 AM CDT LABORATORY Anion Gap 10 7 - 15 mmol/L 12/03/2022 7:29 AM CDT LABORATORY Urea Nitrogen 52.9(H) 8.0 - 23.0 mg/dL 12/03/2022 7:29 AM CDT LABORATORY Creatinine 4.90(H) 0.51 - 0.95 mg/dL 12/03/2022 7:29 AM CDT LABORATORY GFR Estimate 9(L) >60 mL/min/1. 73m2 12/03/2022 7:29 AM CDT LABORATORY Calcium 8.6(L) 8.8 - 10.2 mg/dL 12/03/2022 7:29 AM CDT LABORATORY Glucose 86 70 - 99 mg/dL 12/03/2022 7:29 AM CDT LABORATORY Blood STRUCTURE OF RIGHT HAND / Unknown Venipuncture / Unknown 12/03/2022 6:56 AM CDT 12/03/2022 7:06 AM CDT Nidia Yanez DO LAB - BLOOD ORDER JOSEFA LABORATORY [facility] [address] Lab (1st floor, no room number) [place] [address], [facility] [phone] * (ABNORMAL) Vancomycin level (12/03/2022 6:56 AM CDT) Vancomycin 27.6(HH) ug/mL 12/03/2022 7:46 AM CDT RH LABORATORY Comment: Traditional Dosing Therapeutic Range: Trough 10-15 ug/mL Peak 20-40 ug/mL Critical: Greater than 25.0 ug/mL Blood STRUCTURE OF RIGHT HAND / Unknown Venipuncture / Unknown 12/03/2022 6:56 AM CDT 12/03/2022 7:06 AM CDT Rohini Bradford MD LAB - BLOOD ORDERABL ES LABORATORY [facility] Lab [address] Lab (1st floor, no room number) [place] [id number], [facility] [phone] * (ABNORMAL) Glucose by meter (12/03/2022 1:27 AM CDT) GLUCOSE BY METER POCT 267(H) 70 - 99 mg/dL 12/03/2022 1:38 AM CDT LABORATORY POC Blood, Capillary BLOOD SPECIMEN / Unknown 12/03/2022 1:27 AM CDT 12/03/2022 1:38 AM CDT MD TABITHA Leigh MD - BEKYRIE POCT LABORATORY [facility] Lab [address] Lab (1st floor, no room number) [place] [id number], [facility] [phone] * (ABNORMAL) Glucose by meter (12/02/2022 10:50 PM CDT) GLUCOSE BY METER POCT 243(H) 70 - 99 mg/dL 12/02/2022 10:56 PM CDT LABORATORY POC Blood, Capillary BLOOD SPECIMEN / Unknown 12/02/2022 10:50 PM CDT 12/02/2022 10:56 PM CDT Stormy Ontiveros MD, MD LAB - BEKYRIE POCT LABORATORY [facility] Lab [address] Lab (1st floor, no room number) [place] [id number], [facility] [phone] * (ABNORMAL) Glucose by meter (12/02/2022 7:04 PM CDT) GLUCOSE BY METER POCT 206(H) 70 - 99 mg/dL 12/02/2022 7:10 PM CDT RH LABORATORY POC Blood, Capillary BLOOD SPECIMEN / Unknown 12/02/2022 7:04 PM CDT 12/02/2022 7:10 PM CDT MD TABITHA Leigh MD - KYRIE POCT RH LABORATORY [facility] Lab [address] Lab (1st floor, no room number) [place] [address], [facility] [phone] * (ABNORMAL) Glucose by meter (12/02/2022 4:26 PM CDT) GLUCOSE BY METER POCT 121(H) 70 - 99 mg/dL 12/02/2022 4:32 PM CDT RH LABORATORY POC Blood, Capillary BLOOD SPECIMEN / Unknown 12/02/2022 4:26 PM CDT 12/02/2022 4:32 PM CDT MD TABITHA Leigh MD - RONNY POCT Performing Organization Address [facility]/ZIP Co de Phone Number LABORATORY [facility] [address] Lab (1st floor, no room number) [place] [address], [facility] [phone] * (ABNORMAL) Glucose by meter (12/02/2022 11:45 AM CDT) GLUCOSE BY METER POCT 169(H) 70 - 99 mg/dL 12/02/2022 11:51 AM CDT RH LABORATORY POC Blood, Capillary BLOOD SPECIMEN / Unknown 12/02/2022 11:45 AM CDT 12/02/2022 11:51 AM CDT MD TABITHA Leigh MD - RONNY POCT RH LABORATORY [facility] Lab [address] Lab (1st floor, no room number) [place] [address], [place] [phone] * (ABNORMAL) Vancomycin level (12/02/2022 9:04 AM CDT) Vancomycin 29.3(HH) ug/mL 12/02/2022 10:21 AM CDT LABORATORY Comment: Traditional Dosing Therapeutic Range: Trough 10-15 ug/mL Peak 20-40 ug/mL Critical: Greater than 25.0 ug/mL Blood STRUCTURE OF RIGHT HAND / Unknown Venipuncture / Unknown 12/02/2022 9:04 AM CDT 12/02/2022 9:12 AM CDT Rohini Bradford MD LAB - BLOOD ORDERABL ES LABORATORY [facility] Lab [address] [facility] Lab (1st floor, no room number) [place] [address], [facility] [phone] * (ABNORMAL) Glucose by meter (12/02/2022 8:42 AM CDT) GLUCOSE BY METER POCT 114(H) 70 - 99 mg/dL 12/02/2022 8:49 AM CDT LABORATORY POC Blood, Capillary BLOOD SPECIMEN / Unknown 12/02/2022 8:42 AM CDT 12/02/2022 8:49 AM CDT Stormy Ontiveros MD, MD LAB - BEAKER POCT LABORATORY [facility] Lab [address] Lab (1st floor, no room number) [place] [address], [facility] [phone] * Glucose by meter (12/02/2022 8:06 AM CDT) GLUCOSE BY METER POCT 84 70 - 99 mg/dL 12/02/2022 8:13 AM CDT LABORATORY POC Blood, Capillary BLOOD SPECIMEN / Unknown 12/02/2022 8:06 AM CDT 12/02/2022 8:13 AM CDT Stormy Ontiveros MD, MD LAB - BEAKER POCT RH LABORATORY POC [facility] [address] Lab (1st floor, no room number) [place] [address], [facility] [phone] * (ABNORMAL) CBC with platelets (12/02/2022 6:39 AM CDT) [facility] WBC Count 11.9(H) 4.0 - 11.0 10e3/uL [...] LAB - BLOOD ORDER JOSEFA RH LABORATORY [facility] [address] Lab (1st floor, no room number) [place] [address], [facility] [phone] * (ABNORMAL) Basic metabolic panel (12/02/2022 6:39 AM CDT) Sodium 126(L) 135 - 145 mmol/L 12/02/2022 7:18 AM CDT LABORATORY Comment:Reference intervals for this [...] DO LAB - BLOOD ORDER JOSEFA LABORATORY [facility] [address] [facility] Lab (1st floor, no room number) [place] [address], [facility] [phone] * Glucose by meter (12/02/2022 1:58 AM CDT) GLUCOSE BY METER POCT 95 70 - 99 mg/dL 12/02/2022 2:07 AM CDT LABORATORY POC Blood, Capillary BLOOD SPECIMEN / Unknown 12/02/2022 1:58 AM CDT 12/02/2022 2:07 AM CDT MD TABITHA Leigh MD - KYRIE POCT LABORATORY [facility] Lab [address] Lab (1st floor, no room number) [place] [id number], [place] [phone] * (ABNORMAL) Glucose by meter (12/01/2022 10:25 PM CDT) GLUCOSE BY METER POCT 284(H) 70 - 99 mg/dL 12/01/2022 10:32 PM CDT LABORATORY POC Blood, Capillary BLOOD SPECIMEN / Unknown 12/01/2022 10:25 PM CDT 12/01/2022 10:32 PM CDT MD TABITHA Leigh MD - RONNY POCT Performing Organization Address City/[facility]/ZIP Co de Phone Number LABORATORY [facility] Lab [address] Lab (1st floor, no room number) [place] [id number], [place] [phone] * Potassium (12/01/2022 9:56 PM CDT) Potassium 4.9 3.4 - 5.3 mmol/L 12/01/2022 10:54 PM CDT LABORATORY Blood STRUCTURE OF RIGHT UPPER LIMB / Unknown Venipuncture / Unknown 12/01/2022 9:56 PM CDT 12/01/2022 10:05 PM CDT Nidia Yanez DO LAB - BLOOD ORDER JOSEFA LABORATORY [facility] [address] Lab (1st floor, no room number) [place] [address], [facility] [phone] * (ABNORMAL) Glucose by meter (12/01/2022 6:33 PM CDT) GLUCOSE BY METER POCT 210(H) 70 - 99 mg/dL 12/01/2022 6:41 PM CDT RH LABORATORY POC Blood, Capillary BLOOD SPECIMEN / Unknown 12/01/2022 6:33 PM CDT 12/01/2022 6:41 PM CDT MD TABITHA Leigh MD - RONNY POCT LABORATORY [facility] Lab [address] Lab (1st floor, no room number) [place] [address], [facility] [phone] * (ABNORMAL) Glucose by meter (12/01/2022 12:42 PM CDT) GLUCOSE BY METER POCT 211(H) 70 - 99 mg/dL 12/01/2022 12:48 PM CDT LABORATORY POC Blood, Capillary BLOOD SPECIMEN / Unknown 12/01/2022 12:42 PM CDT 12/01/2022 12:48 PM CDT MD TABITHA Leigh MD - RONNY POCT LABORATORY [facility] [address] Lab (1st floor, no room number) [place] [address], [place] [phone] * Extra Blue Top Tube (LAB USE ONLY) (12/01/2022 7:35 AM CDT) Hold Specimen JIC 12/01/2022 9:02 AM CDT LABORATORY Blood BLOOD SPECIMEN / Unknown Venipuncture / Unknown 12/01/2022 7:35 AM CDT 12/01/2022 7:48 AM CDT Nidia Yanez DO LAB - BLOOD ORDER JOSEFA LABORATORY [facility] [address] [facility] Lab (1st floor, no room number) [place] [address], [facility] [phone] * (ABNORMAL) Basic metabolic panel (12/01/2022 7:35 AM CDT) [facility] Sodium 127(L) 135 - 145 mmol/L 12/01/2022 [...] MD LAB - BLOOD ORDERABL ES LABORATORY [facility] [address] Lab (1st floor, no room number) [place] [address], [facility] [phone] * (ABNORMAL) CBC with platelets (12/01/2022 7:35 AM CDT) [facility] WBC Count 11.8(H) 4.0 - 11.0 10e3/uL [...] MD LAB - BLOOD ORDERABL ES LABORATORY [facility] [address] Lab (1st floor, no room number) [place] [address], [facility] [phone] * (ABNORMAL) Vancomycin level (12/01/2022 7:35 AM CDT) Vancomycin 39.2(HH) ug/mL 12/01/2022 8:54 AM CDT LABORATORY Comment: Traditional Dosing Therapeutic Range: Trough 10-15 ug/mL Peak 20-40 ug/mL Critical: Greater than 25.0 ug/mL Blood BLOOD SPECIMEN / Unknown Venipuncture / Unknown 12/01/2022 7:35 AM CDT 12/01/2022 7:48 AM CDT Michele Chaudhary MD LAB - BLOOD ORDERABL ES LABORATORY [facility] [address] Lab (1st floor, no room number) [place] [address], [facility] [phone] * (ABNORMAL) Glucose by meter (11/30/2022 9:53 PM CDT) GLUCOSE BY METER POCT 218(H) 70 - 99 mg/dL 11/30/2022 10:00 PM CDT LABORATORY POC Blood, Capillary BLOOD SPECIMEN / Unknown 11/30/2022 9:53 PM CDT 11/30/2022 10:00 PM CDT Stormy Ontiveros MD, MD LAB - BEAKER POCT LABORATORY [facility] [address] Lab (1st floor, no room number) [place] [address], [place] [phone] * Potassium (11/30/2022 7:26 PM CDT) Potassium 5.2 3.4 - 5.3 mmol/L 11/30/2022 8:02 PM CDT LABORATORY Blood STRUCTURE OF RIGHT HAND / Unknown Venipuncture / Unknown 11/30/2022 7:26 PM CDT 11/30/2022 7:32 PM CDT Michele Chaudhary MD LAB - BLOOD ORDERABL ES Performing Organization Address [facility]/ZIP Co de Phone Number [facility] Lab [address] Lab (1st floor, no room number) [place] [address], [facility] [phone] * Differential Body Fluid (11/30/2022 7:11 PM [...] BODY FLUIDS OR DERABLES Performing Organization Address [facility] Co de Phone Number [facility] Lab [address] Lab (1st floor, no room number) [place] [address], [facility] [phone] * Cell Count Body Fluid (11/30/2022 7:11 PM CDT) Color Colorless Colorless, Yellow JENNIFER 11/30/2022 11:21 [...] - BODY FLUIDS OR DERABLES RH LABORATORY [facility] [address] Lab (1st floor, no room number) [place] [address], [facility] [phone] * Gram stain (11/30/2022 7:11 PM CDT) Gram Stain Result No organisms seen 11/30/2022 10:58 PM CDT UU IDD LABORATORY Gram Stain Result 2+ WBC seen 11/30/2022 10:58 PM CDT [facility] IDD LABORATORY Peritoneal Fluid SPECIMEN FROM PERITONEUM / Unknown Non-blood Collection / Unknown 11/30/2022 7:11 PM CDT 11/30/2022 7:18 PM CDT Michele Chaudhary MD LAB - MICRO GENERAL ORDERABLES [facility]U IDD LABORATORY [facility] Inf. Diseases Diag. Lab [address] [facility], [address] [place] [address], [place] [phone] * Peritoneal Fluid Aerobic Bacterial Culture Routine (11/30/2022 7:11 PM CDT) Culture No Growth JENNIFER 12/05/2022 7:27 AM CDT UU IDD LABORATORY Peritoneal Fluid SPECIMEN FROM PERITONEUM / Unknown Non-blood Collection / Unknown 11/30/2022 7:11 PM CDT 11/30/2022 7:18 PM CDT Michele Chaudhary MD LAB - MICRO GENERAL ORDERABLES [facility] IDD LABORATORY [facility] Inf. Diseases Diag. Lab [address] [facility], [address] [place] [address], [place] [phone] * (ABNORMAL) Glucose by meter (11/30/2022 5:55 PM CDT) GLUCOSE BY METER POCT 132(H) 70 - 99 mg/dL 11/30/2022 6:02 PM CDT LABORATORY POC Blood, Capillary BLOOD SPECIMEN / Unknown 11/30/2022 5:55 PM CDT 11/30/2022 6:02 PM CDT Stormy Ontiveros MD, MD LAB - BEAKER POCT RH LABORATORY POC [facility] Lab [address] Lab (1st floor, no room number) [place] [address], [place] [phone] * (ABNORMAL) Wound Aerobic Bacterial Culture Routine [...] CDT Susceptibility testing requested by Dr Adorno [phone] Organism Antibiotic Method Susceptibility Corynebacterium striatum Penicillin JENNIFER 8 ug/mL: Resistant Corynebacterium striatum Ceftriaxone JENNIFER >256 ug/mL: Resistant Corynebacterium striatum Clindamycin JENNIFER >256 ug/mL: Resistant Corynebacterium striatum Trimethoprim/Mckee lfamethoxaz ole JENNIFER 1.500 ug/mL: Susceptible Corynebacterium striatum Vancomycin JENNIFER 0.5 ug/mL: Susceptible Corynebacterium striatum Doxycycline JENNIFER 16 ug/mL: Resistant Michele Chaudhary MD LAB - MICRO GENERAL ORDERABLES UU IDD LABORATORY [facility] Inf. Diseases Diag. Lab [address] [facility], [address] [address], [facility] [phone] * Gram Stain (11/30/2022 3:04 PM CDT) Gram Stain Result No organisms seen 11/30/2022 7:22 PM CDT UU IDD LABORATORY Gram Stain Result No white blood cells seen 11/30/2022 7:22 PM CDT [facility]U IDD LABORATORY Wound ABDOMEN / Unknown Non-blood Collection / Unknown 11/30/2022 3:04 PM CDT 11/30/2022 3:15 PM CDT Michele Chaudhary MD LAB - MICRO GENERAL ORDERABLES UU IDD LABORATORY [facility] Inf. Diseases Diag. Lab [address] [facility], [address] [address], [facility] [phone] * (ABNORMAL) Glucose by meter (11/30/2022 2:14 PM CDT) GLUCOSE BY METER POCT 256(H) 70 - 99 mg/dL 11/30/2022 2:21 PM CDT LABORATORY POC Blood, Capillary BLOOD SPECIMEN / Unknown 11/30/2022 2:14 PM CDT 11/30/2022 2:21 PM CDT Stormy Ontiveros MD, MD LAB - BEAKER POCT RH LABORATORY POC [facility] Lab [address] Lab (1st floor, no room number) [place] [address], [facility] [phone] * Potassium (11/30/2022 1:45 PM CDT) Potassium 5.3 3.4 - 5.3 mmol/L 11/30/2022 2:11 PM CDT RH LABORATORY Blood STRUCTURE OF RIGHT HAND / Unknown Venipuncture / Unknown 11/30/2022 1:45 PM CDT 11/30/2022 1:50 PM CDT Rohini Bradford MD LAB - BLOOD ORDERABL ES RH LABORATORY [facility] Lab [address] Lab (1st floor, no room number) [place] [address], [facility] [phone] * (ABNORMAL) Glucose by meter (11/30/2022 12:03 PM CDT) GLUCOSE BY METER POCT 294(H) 70 - 99 mg/dL 11/30/2022 12:10 PM CDT LABORATORY POC Blood, Capillary BLOOD SPECIMEN / Unknown 11/30/2022 12:03 PM CDT 11/30/2022 12:10 PM CDT Stormy Ontiveros MD, MD LAB - BEAKER POCT RH LABORATORY POC [facility] Lab [address] Lab (1st floor, no room number) [place] [address], [facility] [phone] * Extra Red Top Tube (LAB USE ONLY) (11/30/2022 7:23 AM CDT) Hold Specimen JIC 11/30/2022 8:46 AM CDT RH LABORATORY Blood TOPOGRAPHY UNKNOWN / Unknown Venipuncture / Unknown 11/30/2022 7:23 AM CDT 11/30/2022 7:39 AM CDT Michele Chaudhary MD LAB - BLOOD ORDERABL ES Performing Organization Address [facility]/ZIP Co de Phone Number LABORATORY [facility] Lab [address] Lab (1st floor, no room number) [place] [address], [facility] [phone] * Extra Blue Top Tube (LAB USE ONLY) (11/30/2022 7:23 AM CDT) Hold Specimen JIC 11/30/2022 8:46 AM CDT RH LABORATORY Blood TOPOGRAPHY UNKNOWN / Unknown Venipuncture / Unknown 11/30/2022 7:23 AM CDT 11/30/2022 7:39 AM CDT Michele Chaudhary MD LAB - BLOOD ORDERABL ES Performing Organization Address [facility]/ZIP Co de Phone Number LABORATORY [facility] Lab [address] Lab (1st floor, no room number) [place] [address], [facility] [phone] * (ABNORMAL) Comprehensive metabolic panel (11/30/2022 7:23 [...] LAB - BLOOD ORDERABL ES RH LABORATORY [facility] [address] Lab (1st floor, no room number) [place] [address], [facility] [phone] * (ABNORMAL) CBC with platelets (11/30/2022 7:23 [...] - 450 10e3/uL 11/30/2022 7:46 AM CDT LABORATORY Blood TOPOGRAPHY UNKNOWN / Unknown Venipuncture / Unknown 11/30/2022 7:23 AM CDT 11/30/2022 7:39 AM CDT Rohini Bradford MD LAB - BLOOD ORDERABL ES RH LABORATORY [facility] Lab [address] Lab (1st floor, no room number) [place] [address], [facility] [phone] * Glucose by meter (11/30/2022 7:01 AM CDT) GLUCOSE BY METER POCT 88 70 - 99 mg/dL 11/30/2022 7:08 AM CDT RH LABORATORY POC Blood, Capillary BLOOD SPECIMEN / Unknown 11/30/2022 7:01 AM CDT 11/30/2022 7:08 AM CDT Stormy Ontiveros MD, MD LAB - [facility] POCT LABORATORY [facility] Lab [address] Lab (1st floor, no room number) [place] [address], [place] [phone] * (ABNORMAL) Glucose by meter (11/30/2022 2:12 AM CDT) GLUCOSE BY METER POCT 109(H) 70 - 99 mg/dL 11/30/2022 2:22 AM CDT LABORATORY POC Blood, Capillary BLOOD SPECIMEN / Unknown 11/30/2022 2:12 AM CDT 11/30/2022 2:22 AM CDT MD TABITHA Leigh MD - KYRIE POCT Performing Organization Address City/[facility]/ZIP Co de Phone Number LABORATORY [facility] Lab [address] Lab (1st floor, no room number) [place] [address], [place] [phone] * (ABNORMAL) Glucose by meter (11/29/2022 9:53 PM CDT) GLUCOSE BY METER POCT 233(H) 70 - 99 mg/dL 11/29/2022 10:00 PM CDT LABORATORY POC Blood, Capillary BLOOD SPECIMEN / Unknown 11/29/2022 9:53 PM CDT 11/29/2022 10:00 PM CDT Stormy Ontiveros MD, MD LAB - RONNY POCT LABORATORY [facility] [address] Lab (1st floor, no room number) [place] [address], [place] [phone] * (ABNORMAL) Glucose by meter (11/29/2022 5:10 PM CDT) GLUCOSE BY METER POCT 156(H) 70 - 99 mg/dL 11/29/2022 5:17 PM CDT RH LABORATORY POC Blood, Capillary BLOOD SPECIMEN / Unknown 11/29/2022 5:10 PM CDT 11/29/2022 5:17 PM CDT Stormy Ontiveros MD, MD [facility] - [facility] POCT RH LABORATORY POC [facility] Lab [address] Lab (1st floor, no room number) [place] [address], [facility] [phone] * XR Chest Port 1 View (11/29/2022 4:45 PM CDT) Anatomical Region Laterality Modality Chest Digital Radiogra phy 11/29/2022 4:45 PM CDT Impressions 11/29/2022 8:30 PM CDT IMPRESSION: Negative chest. Narrative 11/29/2022 8:30 PM CDT EXAM: XR CHEST PORT 1 VIEW LOCATION: [facility] DATE: 11/29/2022 INDICATION: shortness of breath COMPARISON: Chest radiograph 11/25/2022. Procedure Note Robin Abreu MD - 11/29/2022 EXAM: XR CHEST PORT 1 VIEW LOCATION: [facility] DATE: 11/29/2022 INDICATION: shortness of [...] - MICRO GENERAL ORDERABLES UU IDD LABORATORY [facility] Inf. Diseases Diag. Lab [address] [facility], [address] [place] [address], [place] [phone] * Differential Body Fluid (11/29/2022 3:23 PM [...] LAB - BODY FLUIDS OR DERABLES LABORATORY [facility] Lab [address] Lab (1st floor, no room number) [place] [address], [place] [phone] * Cell Count Body Fluid (11/29/2022 3:23 PM CDT) Color Yellow Colorless, Yellow JENNIFER 11/29/2022 4:59 PM CDT RH LABORATORY Clarity Clear Clear JENNIFER 11/29/2022 4:59 PM CDT RH LABORATORY Cell Count Fluid Source Peritoneum 11/29/2022 4:59 PM CDT RH LABORATORY Total Nucleated Cells 419 /uL 11/29/2022 4:59 PM CDT RH LABORATORY Peritoneal Fluid SPECIMEN FROM PERITONEUM / Unknown Non-blood Collection / Unknown 11/29/2022 3:23 PM CDT 11/29/2022 3:23 PM CDT Narrative RH LABORATORY - 11/29/2022 4:59 PM CDT No reference ranges have been established. ??This result should be interpreted in the context of the patient's clinical condition and compared to simultaneous measurement in the patient's blood. ?? Michele Chaudhary MD LAB - BODY FLUIDS OR DERABLES LABORATORY [facility] Lab [address] Lab (1st floor, no room number) [place] [address], [place] [phone] * (ABNORMAL) Gram stain (11/29/2022 3:23 PM [...] - MICRO GENERAL ORDERABLES [facility]U IDD LABORATORY [facility] Inf. Diseases Diag. Lab [address] [facility], [address] [place] [address], [place] [phone] * (ABNORMAL) Glucose by meter (11/29/2022 10:51 AM CDT) GLUCOSE BY METER POCT 221(H) 70 - 99 mg/dL 11/29/2022 10:58 AM CDT LABORATORY POC Blood, Capillary BLOOD SPECIMEN / Unknown 11/29/2022 10:51 AM CDT 11/29/2022 10:58 AM CDT Stormy Ontiveros MD, LAB - BEAKER POCT LABORATORY [facility] Lab [address] [facility] Lab (1st floor, no room number) [place] [address], [facility] [phone] * ECHO COMPLETE (11/29/2022 9:58 AM CDT) [facility] LVEF 75-80% CARDIOLOGY RESULTS Anatomical Region Laterality Modality Echocardiography 11/29/2022 9:19 AM CDT Narrative 11/29/2022 10:40 AM CDT [id number]^JOSHUA [facility] Echocardiography Laboratory [address] [place] [address] Name: MALACHI MARR : 1945 Study Date: 11/29/2022 09:19 AM Age: 77 yrs Gender: Female Patient Location: [facility] Reason For Study: SOB Ordering Physician: STORMY ONTIVEROS Referring Physician: Man Adan Performed By: Natacha Jmienes BSA: 1.4 m2 Height: 61 in Weight: [...] Procedure Note Michael Atwood MD - 11/29/2022 [id number]^RAMA^SUSHANT^Zeinab [facility] Echocardiography Laboratory [address] [place] [address] Name: MALACHI MARR : 1945 Study Date: 11/29/2022 09:19 AM Age: 77 yrs Gender: Female Patient Location: [facility] Reason For Study: SOB Ordering Physician: [...] MICRO GENERA L ORDERABLES [facility] Inf. Diseases Diag. Lab [address] [facility], [address] [place] [address], [place] [phone] * Glucose by meter (11/29/2022 8:38 AM CDT) GLUCOSE BY METER POCT 97 70 - 99 mg/dL 11/29/2022 8:51 AM CDT [facility] LABORATORY POC Blood, Capillary BLOOD SPECIMEN / Unknown 11/29/2022 8:38 AM CDT 11/29/2022 8:51 AM CDT Stormy Ontiveros MD, MD LAB - [facility] LABORATORY [facility] Lab [address] (1st floor, no room number) [place] [address], [place] [phone] * (ABNORMAL) Glucose by meter (11/29/2022 7:50 AM CDT) GLUCOSE BY METER POCT 59(L) 70 - 99 mg/dL 11/29/2022 7:59 AM CDT [facility] LABORATORY POC Blood, Capillary BLOOD SPECIMEN / Unknown 11/29/2022 7:50 AM CDT 11/29/2022 7:59 AM CDT MD TABITHA Leigh MD - [facility] POCT LABORATORY [facility] Lab [address] (1st floor, no room number) [place] [address], [place] [phone] * Hepatitis B Surface Antibody (11/29/2022 6:28 AM CDT) Pathologist [facility] Hepatitis B Surface Antibody Instrument Value 10.65 [...] - BLOOD ORDERABL ES Performing Organization Address City/[facility]/ZIP Co de Phone Number [facility] SPECIALTY CORE/PROT/ENDO Specialty Core/Prot/Endo [address] [facility], [facility] [address] [phone] * Hepatitis B surface antigen (11/29/2022 6:28 AM CDT) Pathologist [facility] Hepatitis B Surface Antigen Nonreactive Nonreactive 11/29/2022 8:04 PM CDT SPECIALTY CORE/PROT/EN DO Blood STRUCTURE OF RIGHT HAND / Unknown Venipuncture / Unknown 11/29/2022 6:28 AM CDT 11/29/2022 6:40 AM CDT Michele Chaudhary MD LAB - BLOOD ORDERABL ES SPECIALTY CORE/PROT/ENDO Specialty Core/Prot/Endo [address] [facility], Room [address] [phone] * (ABNORMAL) Basic metabolic panel (11/29/2022 6:28 AM CDT) Pathologist [facility] Sodium 129(L) 135 - 145 mmol/L 11/29/2022 [...] MD LAB - BLOOD ORDERA BLES LABORATORY [facility] Acute Care Lab [address] [facility] Lab (1st floor, no room number) [place] [address], [facility] [phone] * (ABNORMAL) Glucose (11/29/2022 6:28 AM CDT) Glucose 66(L) 70 - 99 mg/dL 11/29/2022 7:07 AM CDT LABORATORY Blood STRUCTURE OF RIGHT HAND / Unknown Venipuncture / Unknown 11/29/2022 6:28 AM CDT 11/29/2022 6:40 AM CDT Rohini Bradford MD LAB - BLOOD ORDERABL ES Performing Organization Address [facility]/ZIP Co de Phone Number [facility] Acute Care Lab [address] Lab (1st floor, no room number) [place] [address], [facility] [phone] * (ABNORMAL) Troponin T, High Sensitivity (11/29/2022 6:28 AM CDT) [facility] Troponin T, High Sensitivity 60(H) <=14 ng/L [...] - BLOOD ORDERA BLES Performing Organization Address City/[facility]/ZIP Co de Phone Number [facility] Acute Care Lab [address] Lab (1st floor, no room number) [place] [address], [place] [phone] * Glucose by meter (11/29/2022 5:53 AM CDT) GLUCOSE BY METER POCT 78 70 - 99 mg/dL 11/29/2022 6:00 AM CDT RH LABORATORY POC Blood, Capillary BLOOD SPECIMEN / Unknown 11/29/2022 5:53 AM CDT 11/29/2022 6:00 AM CDT MD TABITHA Leigh MD - RONNY POCT Performing Organization Address [facility]/ZIP Co de Phone Number LABORATORY [facility] Acute Care Lab [address] Lab (1st floor, no room number) [place] [address], [place] [phone] * (ABNORMAL) Glucose by meter (11/29/2022 4:26 AM CDT) GLUCOSE BY METER POCT 254(H) 70 - 99 mg/dL 11/29/2022 4:33 AM CDT RH LABORATORY POC Blood, Capillary BLOOD SPECIMEN / Unknown 11/29/2022 4:26 AM CDT 11/29/2022 4:33 AM CDT MD TABITHA Leigh MD - RONNY POCT Performing Organization Address [facility]/ZIP Co de Phone Number LABORATORY [facility] Care Lab [address] Lab (1st floor, no room number) [place] [address], [place] [phone] * (ABNORMAL) Glucose by meter (11/29/2022 3:01 AM CDT) GLUCOSE BY METER POCT 165(H) 70 - 99 mg/dL 11/29/2022 3:08 AM CDT LABORATORY POC Blood, venous BLOOD SPECIMEN / Unknown 11/29/2022 3:01 AM CDT 11/29/2022 3:08 AM CDT MD TABITHA Leigh MD POCT LABORATORY [facility] Lab [address] Lab (1st floor, no room number) [place] [address], [facility] [phone] * (ABNORMAL) CBC with platelets and differential [...] MD, LAB - BLOOD ORDERA BLES LABORATORY [facility] Acute Care Lab [address] [facility] Lab (1st floor, no room number) [place] [address], [facility] [phone] * (ABNORMAL) Procalcitonin (11/29/2022 2:13 AM CDT) [...] Ontiveros MD, MD LAB - BLOOD MAMIA BLES [facility] Acute Care Lab [address] [facility] Lab (1st floor, no room number) [place] [address], [facility] [phone] * (ABNORMAL) Troponin T, High Sensitivity (11/29/2022 2:13 AM CDT) [facility] Troponin T, High Sensitivity 53(H) <=14 ng/L 11/29/2022 2:49 AM CDT RH LABORATORY Comment: Either a High [...] MD LAB - BLOOD ORDERA BLES LABORATORY [facility] Acute [facility] Lab [address] Lab (1st floor, no room number) [place] [address], [facility] [phone] * (ABNORMAL) Nt probnp inpatient (11/29/2022 2:13 AM CDT) [facility] Signature N terminal Pro BNP Inpatient 2,017(H) 0 - 900 pg/mL 11/29/2022 2:49 AM CDT RH LABORATORY Comment: Reference range shown and results [...] MD, MD LAB - BLOOD ORDERA BLES RH LABORATORY [facility] Lab [address] Lab (1st floor, no room number) [place] [address], [facility] [phone] * (ABNORMAL) Basic metabolic panel (11/29/2022 2:13 AM CDT) Sodium 128(L) 135 - 145 mmol/L 11/29/2022 2:43 AM CDT LABORATORY Comment:Reference intervals for this [...] - 107 mmol/L 11/29/2022 2:43 AM CDT LABORATORY Carbon Dioxide (CO2) 24 22 - 29 mmol/L 11/29/2022 2:43 AM CDT LABORATORY Anion Gap 11 7 - 15 mmol/L 11/29/2022 2:43 AM CDT LABORATORY Urea Nitrogen 63.2(H) 8.0 - 23.0 mg/dL 11/29/2022 2:43 AM CDT LABORATORY Creatinine 4.58(H) 0.51 - 0.95 mg/dL [...] MD, MD LAB - BLOOD ORDERA BLES [facility] Acute Care Lab [address] Lab (1st floor, no room number) [place] [address], [place] [phone] * Glucose by meter (11/29/2022 2:00 AM CDT) GLUCOSE BY METER POCT 88 70 - 99 mg/dL 11/29/2022 2:07 AM CDT LABORATORY POC Blood, Capillary BLOOD SPECIMEN / Unknown 11/29/2022 2:00 AM CDT 11/29/2022 2:07 AM CDT Stormy Ontiveros MD, MD LAB - BEAKER POCT Performing Organization Address City/[facility]/ZIP Co de Phone Number LABORATORY [facility] Lab [address] Lab (1st floor, no room number) [place] [address], [place] [phone] * (ABNORMAL) Glucose by meter (11/29/2022 1:20 AM CDT) GLUCOSE BY METER POCT 63(L) 70 - 99 mg/dL 11/29/2022 1:27 AM CDT LABORATORY POC Blood, Capillary BLOOD SPECIMEN / Unknown 11/29/2022 1:20 AM CDT 11/29/2022 1:27 AM CDT Stormy Ontiveros MD, MD LAB - BEAKER POCT LABORATORY [facility] Lab [address] Lab (1st floor, no room number) [place] [address], [place] [phone] * EKG 12-lead, tracing only (11/29/2022 12:43 AM CDT) Systolic Blood Pressure mmHg RADIOLOGY RESULTS Diastolic Blood Pressure mmHg RADIOLOGY RESULTS Ventricular Rate 63 BPM RAD IOLOGY RESULTS Atrial Rate 63 BPM RADIOLOG Y RESULTS OR Interval 180 ms RADIOLOG Y RESULTS QRS Duration 74 ms RADIOLO GY RESULTS QT 390 ms RADIOLOGY RESULTS QTc 399 ms RADIOLOGY RESULTS P [place] 79 degrees RADIOLOGY RESULTS R AXIS 18 degrees RADIOLOGY RESULTS T [place] 82 degrees RADIOLOGY RESULTS Interpretation ECG Sinus rhythm Normal ECG Confirmed by MD ISAIAS, PIPE ([id number]), research editor VASILIY OLIVIER ([id number]) on 11/30/2022 7:08:46 AM RADIOLOGY RESULTS 11/29/2022 12:4 3 AM CDT 11/30/2022 7:08 AM CDT Stormy Ontiveros MD, MD ECG ORDERABLES RADIOLOGY RESULTS documented in this encounter Visit Diagnoses Diagnosis SOB (shortness of breath)- Primary Shortness of breath Abdominal infection (H) Unspecified peritonitis Abdominal infection (H) Unspecified peritonitis documented in [...] DAILY, First dose on Sat11/29/22 at 1100 $Given 12/06/2022 12:15 PM CDT 10 mg $Given 12/05/2022 8:13 PM CDT 10 mg $Given 12/05/2022 7:54 AM CDT 10 mg aspirin EC tablet 81 mg 81 mg (1.84 mg/kg), Oral, DAILY, First dose on Sat11/29/22 at 1100, DO NOT CRUSH. $Given 12/06/2022 7:47 AM CDT 81 mg $Given 12/05/2022 7:51 AM CDT 81 mg $Given 12/04/2022 10:41 AM CDT 81 mg BUPivacaine (MARCAINE) 0.5% preservative free injection PRN, Starting on Sat12/04/22 at 0837, Intra-procedure $Given 12/04/2022 8:37 AM CDT 20 mLs Abdominal Tissue calcium acetate (PHOSLO) capsule 667 mg 667 [...] $Given 12/05/2022 8:12 PM CDT 1 drop cetirizine (zyrTEC) tablet 10 mg [...] $Given 12/03/2022 8:52 AM CDT 0.2 mg dextrose 10% BOLUS 88 mL 88 mL (rounded from 88.2 mL = 2 mL/kg ? 44.1 kg), Intravenous, EVERY 15 MIN PRN, Repeat until glucose value greater than 70 mg/dL, Starting on Sat11/29/22 at 1048, Use for hypoglycemia with glucose less than or equal to 50 mg/dL in the NPO or unconscious/not alert patient with IV access. erythromycin (ROMYCIN) ophthalmic ointment Left Eye, 4 TIMES DAILY, First dose on Gemma 11/29/22 at 1200 $Given 12/06/2022 12:10 PM CDT $Given 12/06/2022 7:43 AM CDT $Given 12/05/2022 8:14 PM CDT glucagon injection 0.5-1 mg 0.5-1 [...] 12/03/2022 10:01 PM CDT 3 Units insulin glargine (LANTUS PEN) injection 3 Units 3 Units (0.0682 Units/kg), Subcutaneous, EVERY MORNING BEFORE BREAKFAST, First dose on 12/01/22 at 1300, On hold since 12/03/2022 at 0840 until manually unheld $Given 12/02/2022 9:21 AM CDT 3 U nits $Given 12/01/2022 2:49 PM CDT 3 Units labetalol (NORMODYNE) tablet 300 mg 300 mg (7.19 mg/kg), Oral, 3 TIMES DAILY, First dose on Gemma 11/29/22 at 1400, Hold for SBP <90 or [...] naloxone (NARCAN) injection 0.2 mg 0.2 mg (0.51773 mg/kg), Intravenous, EVERY 2 MIN PRN, opioid [...] naloxone (NARCAN) injection 0.2 mg 0.2 mg (0.64458 mg/kg), Intramuscular, EVERY 2 MIN PRN, opioid reversal, Starting on [facility] 11/29/22 at 0447, Administer intramuscular if an [...] naloxone (NARCAN) injection 0.4 mg 0.4 mg (0.18644 mg/kg), Intravenous, EVERY 2 MIN PRN, opioid reversal, Starting on [facility] 11/29/22 at 0447, Administer intravenous route when [...] naloxone (NARCAN) injection 0.4 mg 0.4 mg (0.71118 mg/kg), Intramuscular, EVERY 2 MIN PRN, opioid [...] First dose on Gemma 11/29/22 at 1400 oxyCODONE (ROXICODONE) tablet 15 mg 15 mg (0.354 mg/kg), Oral, AT BEDTIME, First dose (after last modification) on Sat12/05/22 at 2200 $Given 12/05/2022 9:47 PM CDT 15 mg polyethylene glycol (MIRALAX) Packet 17 g 17 g (0.385 g/kg), Oral, EVERY 3 DAYS, First dose on Gemma 11/29/22 at 1100, 1 Packet = 17 grams. [...] $Given 12/05/2022 5:22 PM CDT 1 mg sennosides (SENOKOT) tablet 1 tablet 1 tablet, Oral, EVERY 3 DAYS, First dose on Gemma 11/29/22 at 1100, Hold for loose stools. $Given 12/02/2022 12:18 PM CDT 1 tablet $Given 11/29/2022 1:27 PM CDT 1 tablet sorbitol 70 % solution 30 mL 30 mL, Oral, EVERY 3 DAYS, First dose on Gemma 11/29/22 at 1100 $Given 12/05/2022 11:58 AM CDT 30 mLs $Given 12/02/2022 12:18 PM CDT 30 mLs $Given 11/29/2022 12:06 PM CDT [address] salcedo - receiving intermittent dosing [...] Oral, 2 TIMES DAILY, First dose on Gemma 11/29/22 at 1100 0629 (Auto Hold - Provider: Orders Generic Provider - Reason: Transfer to a procedural area)0800 (Automatically Held - Provider: Orders Generic Provider)1007 (Unhold - Provider: Orders Generic Provider)1042 ($Given - Provider: Nahomi Sainz RN - Comment: pt was out for dialysis)2031 ($Given - Provider: Florence Emery RN) 075 ($Given - Provider: Margarita Page, SUSANA)2012 ($Given - Provider: Marjorie Whiteside RN) 1215 ($Given - Provider: Lina Saeed, SUSANA) aspirin EC tablet 81 mg 81 mg (1.84 mg/kg), Oral, DAILY, First dose on Gemma 11/29/22 at 1100, DO NOT CRUSH. 0629 (Auto [...] TIMES DAILY WITH MEALS, First dose on Gemma 11/29/22 at 1200, Best if given with [...] Lina Saeed RN)1215 ($Given - Provider: Lina Saeed RN) carboxymethylcellulose PF (REFRESH PLUS) 0.5 % [...] Whiteside RN) 0747 ($Given - Provider: Lina Saeed RN)1205 ($Given - Provider: Lina Saeed RN)1600 (Canceled Entry - Provider: Orders Generic [...] for dialysis) 0753 ($Given - Provider: Margarita Page, SUSANA) 0747 ($Given - Provider: Lina Saeed, SUSANA) cloNIDine (CATAPRES) tablet 0.2 mg(Linked Group 1) 0.2 mg (0.0048 mg/kg), Oral, EVERY EVENING, First dose (after last modification) on Sat12/02/22 at 2000 0629 (Auto Hold - Provider: Orders Generic Provider - Reason: Transfer to a procedural area)1007 (Unhold - Provider: Orders Generic Provider)2031 ($Given - Provider: Florence Emery RN) 2011 ($Given - Provider: Marjorie Whiteside RN) cloNIDine (CATAPRES) tablet 0.2 mg(Linked Group 1) 0.2 mg, Oral, EVERY MORNING, First dose (after last modification) on Sat12/03/22 at 0800 0629 (Auto Hold - Provider: [...] for dialysis)1140 (Canceled Entry - Provider: Nahomi Abdow, RN - Comment: too close to last dose)1616 ($Given - Provider: Nahomi Sainz RN)2035 ($Given - Provider: Florence Emery RN) 0759 (Not Given - Provider: Margarita Page RN - Reason: Patient/family refused)1148 ($Given - Provider: Margarita Page, RN)1554 ($Given - Provider: Nahomi Sainz, SUSANA)2014 ($Given - Provider: Marjorie Whiteside RN) 0743 [...] for dialysis) 0752 ($Given - Provider: Margarita Page, SUSANA) glipiZIDE (GLUCOTROL XL) 24 hr tablet 20 [...] cath care. 0000 ($Given - Provider: Florence Emery, SUSANA)0629 (Auto Hold - Provider: Orders Generic Provider - Reason: Transfer to a procedural area)1007 (Unhold - Provider: Orders Generic Provider)1230 ($Given - Provider: Nahomi Sainz RN) 0018 ($Given - Provider: Florence Emery, SUSANA)1148 ($Given - Provider: Margarita Page, RN) 0144 ($Given - Provider: Padmini Manuel RN)1219 ($Given - Provider: Lina Saeed, SUSANA) insulin aspart (NovoLOG) injection (RAPID ACTING) 1-7 [...] RN) 0746 ($Given - Provider: Lina Saeed, RN)1205 (Not Given - Provider: Lina Saeed RN - Reason: Order parameters not met) insulin [...] dose, PACU 0857 ($Given - Provider: Sherin Ruff RN) labetalol (NORMODYNE) tablet 300 mg 300 [...] Sainz RN - Reason: Order parameters not met)203 ($Given - Provider: Florence Emery RN) 0752 (Not Given - Provider: Margarita Page RN [...] Patient/family refused)0744 (Patch/Med Removed - Provider: Lina Saeed, SUSANA) nicotine Patch in Place(Linked Group 2) First [...] 0526 (Patch in Place - Provider: Padmini Manuel, SUSANA)1400 (Patch Free Period - Provider: Lina Saeed RN) No heparin via hemodialysis machine (COMPLETED) [...] Generic Provider) 1148 ($Given - Provider: Margarita Page RN) repaglinide (PRANDIN) tablet 1 mg 1 mg [...] Lina Saeed, SUSANA)1215 ($Given - Provider: Lina Saeed RN) sennosides (SENOKOT) tablet 1 tablet 1 tablet, [...] 0830 ($New Bag - Provider: Monika Jones, RN) sorbitol 70 % solution 30 mL 30 mL, Oral, EVERY 3 DAYS, First dose on Sat11/29/22 at 1100 0629 (Auto Hold - Provider: Orders Generic Provider - Reason: Transfer to a procedural area)1007 (Unhold - Provider: Orders Generic Provider) 1158 ($Given - Provider: Margarita Page, RN) vancomycin (VANCOCIN) 1,000 mg in 200 [...] peritonitis 0012 ($New Bag - Provider: Florence Emery, SUSANA) vancomycin place salcedo - receiving intermittent [...] pain or per patient request, Starting on Sat11/29/22 at 0024, Alternate with ibuprofen if ordered. [...] pain or per patient request, Starting on Sat11/29/22 at 0024, Alternate with ibuprofen if ordered. Maximum acetaminophen dose from all sources = 75 mg/kg/day not to exceed 4 grams/day. 0629 (Auto Hold - Provider: Orders Generic Provider - Reason: Transfer to a procedural area)1007 (Unhold - Provider: Orders Generic Provider)1038 ($Given - Provider: Nahomi Sainz, RN) 0225 ($Given - Provider: Florence Emery RN)0954 ($Given - Provider: Margarita Page, SUSANA)2012 ($Given - Provider: Marjorie Whiteside, SUSANA) 1425 ($Given - Provider: Lina Saeed RN) albuterol (PROVENTIL HFA/VENTOLIN HFA) inhaler 2 [...] Generic Provider) 0018 ($Given - Provider: Florence Emery, SUSANA)1557 ($Given - Provider: Nahomi Sainz RN) ipratropium [...] Orders Generic Provider)2225 ($Given - Provider: Florence Emery, SUSANA) naloxone (NARCAN) injection 0.2 mg(Linked Group 5) 0.2 mg (0.68607 mg/kg), Intravenous, EVERY 2 MIN PRN, opioid [...] injection 0.2 mg(Linked Group 5) 0.2 mg (0.84427 mg/kg), Intramuscular, EVERY 2 MIN PRN, opioid [...] injection 0.4 mg(Linked Group 5) 0.4 mg (0.81547 mg/kg), Intravenous, EVERY 2 MIN PRN, opioid [...] injection 0.4 mg(Linked Group 5) 0.4 mg (0.27958 mg/kg), Intramuscular, EVERY 2 MIN PRN, opioid [...] (after last modification) on 12/03/22 at 0800 And cloNIDine (CATAPRES) tablet 0.2 mgJump to med 0.2 mg (0.0048 mg/kg), Oral, EVERY EVENING, First dose (after last modification) on 12/02/22 at 2000 Group 2: nicotine (NICODERM CQ) [...] injection 0.2 mgJump to med 0.2 mg (0.71521 mg/kg), Intravenous, EVERY 2 MIN PRN, opioid [...] injection 0.4 mgJump to med 0.4 mg (0.49607 mg/kg), Intravenous, EVERY 2 MIN PRN, opioid [...] injection 0.2 mgJump to med 0.2 mg (0.36451 mg/kg), Intramuscular, EVERY 2 MIN PRN, opioid [...] injection 0.4 mgJump to med 0.4 mg (0.54803 mg/kg), Intramuscular, EVERY 2 MIN PRN, opioid [...] Last Indicated Resolved Time 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
--- OUTSIDE RECORDS SUMMARY | 2023-02-22 16:16 | XMS_ITS | Encounter Summary ---
Author Name Unknown Organization [facility] Address [address] [place] [address]. [place] [address] Care Team Providers Care Apprentice Architect Name Role Phone Tyrell Schneider Primary Care Provider [phone] Encounter Details Date Type Department Care Team ([facility] st Contact Info) Description 11/28/2022 Telephone [facility] - General Medicine & Pediatrics [address] [place] [phone] Jasmyn Bradley PA-C [address] [place] [address] Social History Tobacco Use Types Packs/Day Years Used Date Smoking Tobacco: Never Assessed Adolescent Education Answer Date Record ed Getting School Help Needed Not on file 11/24 Sex and Gender Information Value Date Recorded Sex Assigned at Not on file Gender Identity Female 11/24/2022 4:30 PM CDT Sexual Orientation Not on file documented as of this encounter Miscellaneous Notes * Telephone Encounter - Jasmyn Bradley PA-C - 11/28/2022 9:58 PM CDT [facility] direct admission sign out: Provider: Dr. Cuong Burger Location: [facility] Maricruz Vanegas is a 77-year-old female with PMH significant for end-stage renal disease on PD that was last performed the evening of 11/27, COPD, DM2, chronic pain., among others. Patient was just seen at [facility] approximately 4 days ago where she was diagnosed with COVID but due to hersymptoms being about a week out she was not treated but was transferred to [facility] due to being s ymptomatic. She discharged from [facility] on 11/26. Patient returns to the ED on 11/28 for ongoingweakness and shortness of breath. Vital signs show afebrile, pulse of 63, respiratory rate of 16, blood pressure of 133/61, and oxygen saturations of 94% on room air. Sodium of 129, chloride 92, and potassium of 5.8. Given IV Lasix 40 mg, insulin, and glucose for hyperkalemia. Potassium was not rechecked at time of signout due to just being given these interventions. CT of chest performed which was negative for PE and just showed bronchial wall thickening. CT of abdomen performed due to reportsof periumbilical pain and just showing constipation. Patient had some relief with 2 DuoNebs in the ED. Concern for patient's ability to care for self since she lives alone. Will be transferring to [facility] due to inability to perform peritoneal dialysis at [facility]. Accept the patient to a medical surgical bed, patient is likely observation status. 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 ED 11/23/2022 11/26/2022 12/05/2022 9:18 A M CDT documented as of this encounter Care Teams Apprentice Architect Relationship Specialty Start Date End Date Tyrell Schneider [address] [place] [address] PCP - General Family Medicine 11/25/22 02/18/23 documented as of this encounter
--- OUTSIDE RECORDS SUMMARY | 2023-02-22 16:17 | XMS_ITS ---
Author Name Unknown Organization [facility] Address [address] [place] [address] Care Team Providers Care Drill Grinder Name Role Phone Tyrell Schneider Primary Care Provider [phone] Transitional Care Management Status:Closed (Closed) Start date:12/19/2022 Enrollment date:12/19/2022 End date:01/02/2023 Close reason:Goals met Continued Care and Services Coordination
--- OUTSIDE RECORDS SUMMARY | 2023-02-22 16:17 | XMS_ITS ---
Author Name Unknown Organization [place] [facility] Address [address] [place] [address] Care Team Providers Care Xray Tech Name Role Phone Tyrell Schneider Primary Care Provider [phone] Transitional Care Management Status:Identified (Enrolling) Start date:02/22/2023 Continued Care and Services Coordination
--- OUTSIDE RECORDS SUMMARY | 2023-02-22 16:17 | XMS_ITS | Encounter Summary ---
Author Name Unknown Organization [facility] Address [address] [place] [address] Care Team Providers Care Crossword Puzzle Maker Name Role Phone Unavailable Primary Care Provider Unavailabl e Reason for Visit * Reason Comments Med Refill Encounter Details Date Type Department Care Team ([facility] st Contact Info) Description 12/07/2022 Refill Department of Nicotine Dependence, [facility], in [place], [place] [address] [place] [phone] Scott Regan M.D. [address] [place] [address] Med Refill Social History Tobacco Use Types Packs/Day Years Used Date Smoking Tobacco: Some Days Cigarettes Smokeless Tobacco: Never Comments:Smoking less Nutrition Answer Date Recorded Nutrition: EVOO Fat Source Unknown 10/24 Nutrition: Servings of Fruits/Vegetables per Day Not on file 10/24/2020 Dental Answer Date Recorded Dental: Regular Dentist Unknown 10/25/19 21 Sex and Gender Information Value Date Recorded Sex Assigned at Not on file Gender Identity Female 01/08/2022 2:47 PM EMERGENCY VETERINARY ASSISTANT Sexual Orientation Straight 01/08/2022 2: 47 PM EMERGENCY VETERINARY ASSISTANT documented as of this encounter Plan of Treatment Not on file documented as of this encounter Visit Diagnoses Not on filedocumented in this encounter
--- OUTSIDE RECORDS SUMMARY | 2023-02-22 16:17 | XMS_ITS ---
Author Name Unknown Organization [facility] Address [address] [place] [address] Care Team Providers Care Cloth Picker Name Role Phone Unavailable Unavailable Unavailable Surgery Details Not on file Complications Check Surgery Details section. Procedure Estimated Blood Loss Check Surgery Details section. Procedure Findings Check Surgery Details section. Procedure Specimens Taken Check Surgery Details section.
--- OUTSIDE RECORDS SUMMARY | 2023-02-22 16:17 | XMS_ITS | Encounter Summary ---
Author Name Unknown Organization [facility] Address [address] [place] [address] Care Team Providers Care Bakery Demonstrator Name Role Phone Unavailable Primary Care Provider Unavailabl e Encounter Details Date Type Department Care Team (Latest Contact Info) Description 07/12/2022 Clinical Communication Department of Ophthalmology in [place], [place] [address] [place] [address] Luma Solis M.D., M.S. [address] [place] [address] Social History Tobacco Use Types Packs/Day Years Used Date Smoking Tobacco: Smoker, Current Status Unknown Smokeless Tobacco: Never Nutrition Answer Date Recorded Nutrition: EVOO Fat Source Unknown 10/24 Nutrition: Servings of Fruits/Vegetables per Day Not on file 10/24/2020 Dental Answer Date Recorded Dental: Regular Dentist Unknown 10/25/19 21 Sex and Gender Information Value Date Recorded Sex Assigned at Not on file Gender Identity Female 01/08/2022 2:47 PM APPETIZER PACKER Sexual Orientation Straight 01/08/2022 2: 47 PM APPETIZER PACKER documented as of this encounter Plan of Treatment Not on file documented as of this encounter Visit Diagnoses Not on filedocumented in this encounter
--- OUTSIDE RECORDS SUMMARY | 2023-02-22 16:17 | XMS_ITS | Encounter Summary ---
Author Name Unknown Organization [facility] Address [address] [place] [address]. [place] [address] Care Team Providers Care Brush Painter Name Role Phone Tyrell Schneider Primary Care Provider [phone] Reason for Visit * Auth/Cert (Routine) Specialty Diagnoses / Procedures Referred By Constantine t Referred To Contact Med Surg Diagnoses COVID Covid positive, COPD, failure to thrive COVID Sjn P2 [address] [place] [address] Referral ID Status Reason Start Date Expiration Date Visits Re quested Visits Authorized [id number] 1 1 Encounter Details Date Type Department Care Team (Latest Contact Info) Description 11/24/2022 9:10 PM CDT - 11/26/2022 4:50 PM CDT Hospital Encounter [facility] P2 [address] [place] [address] Lissy Mc MD [address] [place] [address] Saloni Finn MD [address] [place] [address] Discharge Disposition: Home or Self Care Social [...] Sign Reading Time Taken Comments Blood Pressure 143/63 11/26/2022 1:20 PM CDT Pulse 63 11/26/2022 1:39 PM CDT Temperature 36.4 ??C (97.5 ??F) 11/26/2022 9:15 AM CD T Respiratory Rate 18 11/26/2022 9:15 AM CDT Oxygen Saturation 93% 11/26/2022 1:20 PM CDT Inhaled Oxygen Concentration - - Weight 42 kg (92 lb 9.5 oz) 11/24/2022 9:19 PM C DT Height 154.9 cm (5' 1) 11/24/2022 9:19 PM CDT Body Mass Index 17.5 11/24/2022 9:19 PM CDT documented in this encounter Discharge Summaries * Saloni Finn MD - 11/26/2022 12:02 PM CDT [facility] Hospitalist Discharge Summary Date of Admission: 11/24/2022 Date of Discharge: 11/26/2022 Discharging Provider: Saloni Finn MD Discharge Diagnoses #Shortness of breath with exertion #COVID-19 pneumonia Follow-ups Needed After Discharge Follow-up Appointments Follow-up and recommended labs and tests Follow up with primary care provider, TYRELL SCHNEIDER, within 7 days for hospital follow- up. No follow up labs or test are needed. Follow up with Dr. Gabriel Mena, primary Inventory Control/Shipping Receiving for peritoneal dialysis Unresulted Labs Ordered in the Past 30 Days of this Admission Date and Time Order Name Status Description 11/25/2022 11:51 AM Anaerobic Bacterial Culture Routine In process 11/25/2022 11:51 AM Peritoneal Fluid Aerobic Bacterial Culture Routine In process Hospital Course Maricruz Vanegas is a 77 year old female with PMHx of ESRD on PD, DM2, HTN, chronic pain, tobacco use, COPD who presents as a transfer from [facility] ED for no available beds for 1 week of shortness of breath, found to be COVID positive. #Shortness of breath with exertion #COVID-19 pneumonia Did not require oxygen supplementation Shortness of breath with activity, felt better the next day after completing the course of remdesivir No indication for dexamethasone #ESRD on peritoneal dialysis #Hyponatremia, improved With dialysis the day before presenting to the ED Nephrology consulted for PD - LEGAL ADMINISTRATOR Lasix 40mg right eye, Phoso TID with meals #COPD #Tobacco use Smoking for over 40 years. Currently a few cigarettes a day Not in exacerbation, albuterol nebulization as needed -Counseled for smoking cessation #Type 2 DM not on long-term insulin Restarted home meds glipizide and repaglinide #Essential HTN - Resumed LEGAL ADMINISTRATOR amlodipine 10mg BID, clonidine 0.2mg qAM and 0.3mg qPM, labetalol 300mg TID #Chronic pain #Chronic opioid use - Continue home oxycodone 10mg at bedtime for back and leg pain #PAD -LEGAL ADMINISTRATOR aspirin 81mg #Eye disorder -Refresh plus, erythromycin ointment, Maxitrol L eye Consultations This Hospital Stay NEPHROLOGY IP CONSULT PHYSICAL THERAPY ADULT IP CONSULT CARE MANAGEMENT / SOCIAL WORK IP CONSULT Code Status Full Code Time Spent on this Encounter I,Saloni Finn, personally saw the patient today and spent approximately 35 minutes discharging this patient. Saloni Finn MD [facility] Physical Exam Vital Signs: Temp: 97.5 ??F (36.4 ??C) Temp src: Oral BP: (!) 156/66 Pulse: 62 Resp: 18 SpO2: 92 % O2 Device: None (Room air) Weight: 92 lbs 9.49 oz Physical Exam General: Conversational, no acute distress, cachectic Respiratory: Decreased breath sounds bilaterally but no wheezing or crackles Cardiac: RRR, no murmurs heard GI: Soft, nontender, mildly distented abdomen with peritoneal catheter in place with clean dressing Skin: No rashes Neuro: A&Ox3, no deficits Primary Care Physician TYRELL SCHNEIDER Discharge Disposition Discharged to home Condition at discharge: Stable Significant Results and Procedures Most Recent 3 CBC's: Recent Labs Lab Test 11/24/22 2209 WBC 6.9 HGB 12.2 MCV 90 PLT 271 Most Recent 3 BMP's: Recent Labs Lab Test 11/26/22 0619 11/26/22 0245 11/25/229 11/25/22 0054 11/24/222208 NA 132* -- -- -- 128* POTASSIUM 5.1 -- -- -- 5.2 CHLORIDE 95* -- -- -- 91* CO2 25 -- -- -- 22 BUN 73.8* -- -- -- 78.6* CR 4.39* -- -- -- 4.73* ANIONGAP 12 -- -- -- 15 PASTOR 8.8 -- -- -- 9.3 GLC 110* 210* 231* < > 301* < > = values in this interval not displayed. Most Recent 2 LFT's: Recent Labs Lab Test 11/24/222208 AST 21 ALT 15 ALKPHOS 105* BILITOTAL 0.2 Most Recent 3 INR's:No lab results found. Most Recent 3 Troponin's:No lab results found. Most Recent 3 BNP's:No lab results found. Most Recent D-dimer:No lab results found. Most Recent Cholesterol Panel:No lab results found. Results for orders placed or performed during the hospital encounter of 11/24/22 XR Chest Port 1 View Narrative EXAM: XR CHEST PORT 1 VIEW LOCATION: [facility] DATE: 11/25/2022 INDICATION: Shortness of breath. COMPARISON: None. Impression IMPRESSION: Minor linear atelectasis left base. Lungs are otherwise clear. No adenopathy or effusion. Normal cardiac size and pulmonary vascularity. Atherosclerotic thoracic aorta. Degenerative changes both shoulders and the spine. A few gas-filled loops of small bowel in the right upper abdomen. No free gas underneath the hemidiaphragms. No prior study available for comparison. Current study will serve as a baseline for future follow-up. Discharge Orders Reason for your hospital stay #Shortness of breath with exertion #COVID-19 Follow-up and recommended labs and tests Follow up with primary care provider, TYRELL SCHNEIDER, within 7 days for hospital follow- up. No follow up labs or test are needed. Follow up with Dr. Gabriel Mena, primary Inventory Control/Shipping Receiving for peritoneal dialysis Activity Your activity upon discharge: activity as tolerated Diet Follow this diet upon discharge: Orders Placed This Encounter Combination Diet Regular Diet; 3 gm K Diet (low potassium); Moderate Consistent Carb (60 g CHO per Meal) Diet Discharge Medications Current Discharge Medication List CONTINUE [...] 300 mg by mouth 3 times daily couwmvyh-sxorjczmw-fyuBFCGPqwvmj (MAXITROL) 3.5-51568-4.[address] 0.25 inches Into the [...] needed for irritation Allergies Allergies Allergen Reactions Fish Oil Rash Lisinopril-Hydrochlorothiazide Rash Niacin Rash documented in this encounter Discharge Instructions * Attachments The following attachments cannot be sent through Care Everywhere. * Coronavirus Disease (COVID-19): Caring for Yourself: Quick List (Micronesian) * (s) Discharge Instructions for COVID-19 Patients (Micronesian) documented in this encounter Medications at Time [...] by mouth 2 times daily 0 03/01/2022 xjzjobht-jeztgxoxe-nex AMETHasone (MAXITROL) 3.5-30518-2.[address] 0.25 inches Into the [...] as of this encounter Progress Notes * Jackelin Beebe BSW - 11/26/2022 12:20 PM CDT Care Management Discharge Note Discharge Date: 11/26/2022 Discharge Disposition: Home Discharge Services: None Discharge DME: None Discharge Transportation: Private pay costs discussed: Not applicable Does the patient's insurance plan have a 3 day qualifying hospital stay waiver? No PAS Confirmation Code: NA Patient/family educated on Medicare website which has current facility and service quality ratings:NA Education Provided on the Discharge Plan: Yes Persons Notified of Discharge Plans: MD, RN, CM, patient Patient/Family in Agreement with the Plan: Yes Handoff Referral Completed: Yes Additional Information: Patient is discharging home. No CM needs identified. JULIANA Pacheco * Jackelin Beebe BSW - 11/26/2022 10:20 AM CDT Care Management Follow Up Length of Stay (days): 0 Expected Discharge Date: 11/26/2022 Concerns to be Addressed: Patient plan of care discussed at interdisciplinary rounds: Yes Anticipated Discharge Disposition: Home Anticipated Discharge Services: None Anticipated Discharge DME: Patient/family educated on Medicare website which has current facility and service quality ratings: Education Provided on the Discharge Plan: Patient/Family in Agreement with the Plan: Referrals Placed by CM/SW: Private pay costs discussed: Not applicable Additional Information: Registration added patient's insurance info this morning. Patient has medicare primary and is Observation so GAONA was triggered. Attempted to call patient's room phone, no answer. Will try again later. Therapy rec is home with assist, transport TBD. 12:20 PM Bedside RN provided patient with copy of GAONA form. CM discussed GAONA with patient. She states no questions at this time. Social History Lives in a house with her sister and two sons. 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 No DME or home care. JULIANA Pacheco * Victoriano Bennett DO - 11/26/2022 10:19 AM CDT Images from the original note were not included. ' RENAL ([facility]) progress note CC: F/U ESRD S: Since last visit, doing well . Cough improved. NO sob. PD without issues overnight. NO abdominalpain. A/P: Principal Problem: COVID 1) ESRD: Usually dialyze via PD. Her primary hat cleaner is Dr Gabriel Mena with [facility] and she normally is seen at [facility] PD clinic ([phone]). She missed her 11/24 PD due to ED visit. PD Pres[facility]: [facility] Estimated Dry Weight 44 kg Calcium Content in Bag (mEq/L) 2.5 mEq/L Magnesium Content in Bag (mEq/L) 0.5 mEq/L Dextrose Content in Bag % 1.5; 2.5; 4.25% Number of Cycler Exchanges 2 Fill Volume 1300 mL Total Cycler Therapy Volume 2600 mL Total Cycler Therapy Time 300 min Average Dwell Time 135 min - Avoid nephrotoxins and renally dose all medications. - Follow weights and I&Os -No concern concerns for peritonitis on exam today. Culture sent yesterday but no cell count. Hold with not sign of infection currently. 2) Covid 19/SOB : SOB x1 and runny nose, tested positive in the ED. 3) Blood Pressure/Volume: long standing history of hypertension. Blood pressure hypertensive. No med changes today, continue to challenge her dry weight with ongoing monitoring. LEGAL ADMINISTRATOR blood pressure medication: Norvasc 10 mg bid, Clonidine 0.1mg 2 tabs AM and 3 tabs PM, and lasix 40 mg daily. 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 Recent hemoglobin 12.2. -Transfuse if less than 7. 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 6) Diabetes: Patient with long standing history of type 2 DM. Management per IM. 7) Hyponatremia: improved. -PD today as noted above Victoriano Bennett, DO [facility] [phone] (off) No interval changes to past medical history, social history or family history to report. BP (!) 156/66 (BP Location: Right arm) Pulse 62 Temp 97.5 ??F (36.4 ??C) (Oral) Resp 18 Ht 1.549 m (5' 1) Wt 42 kg (92 lb 9.5 oz) SpO2 92% BMI 17.50 kg/m?? I/O last 3 completed shifts: In: 1440 [P.O.:1440] Out: 2066 [Urine:1450; Other:617] Physical Exam: GENERAL: calm and comfortable, a EYES: pupils equal, sclerae not icteric. ENT: Hearing normal, oral mucosa moist. RESP: no respiratory distress, normal effort. CV: RRR, no murmurs. no leg edema. GI: Active BS, Soft, NT/ND, SKIN: No rash, warm/ dry NEURO: Sensation grossly intact to LT PSYCH: Appropriate mood and affect Recent Labs Lab 11/26/22 0619 11/24/222208 NA 132* 128* POTASSIUM 5.1 5.2 CHLORIDE 95* 91* CO2 25 22 BUN 73.8* 78.6* CR 4.39* 4.73* GFRESTIMATED 10* 9* PASTOR 8.8 9.3 PHOS -- 5.4* MAG -- 2.3 ALBUMIN -- 3.2* Recent Labs Lab 11/24/222208 WBC 6.9 HGB 12.2 HCT 37.5 MCV 90 PLT 271 Current Facility-Administered Medications: acetaminophen (TYLENOL) tablet 650 mg, 650 mg, Oral, Q4H PRN, 650 mg at 11/25/222131 OR acetaminophen (TYLENOL) Suppository 650 mg, 650 mg, Rectal, Q4H PRN, Saloni Finn MD albuterol (PROVENTIL) neb solution 2.5 mg, 2.5 mg, Nebulization, Q4H PRN, Saloni Finn MD, 2.5mg at 11/25/222150 amLODIPine (NORVASC) tablet 10 mg, 10 mg, Oral, BID, Saloni Finn MD, 10 mg at 11/26/2236 aspirin EC tablet 81 mg, 81 mg, Oral, Daily, Saloni Finn MD, 81 mg at 11/26/22 0936 calcium acetate (PHOSLO) capsule 667 mg, 667 mg, Oral, TID w/meals, Saloni Finn MD, 667 mg at1935 carboxymethylcellulose PF (REFRESH PLUS) 0.5 % ophthalmic solution 1 drop, 1 drop, Left Eye, 4x Daily, Saloni Finn MD, 1 drop at 11/26/22 0936 cetirizine (zyrTEC) tablet 10 mg, 10 mg, Oral, Daily, Saloni Finn MD, 10 mg at 11/26/22 09 cloNIDine (CATAPRES) tablet 0.2 mg, 0.2 mg, Oral, Daily, Saloni Finn MD, 0.2 mg at 11/26/22 0936 cloNIDine (CATAPRES) tablet 0.3 mg, 0.3 mg, Oral, Daily, Saloni Finn MD, 0.3 mg at 11/25/22 2134 glucose gel 15-30 g, 15-30 g, Oral, Q15 Min PRN OR dextrose 50 % injection 25-50 mL, 25-50 mL, Intravenous, Q15 Min PRN, 25 mL at 11/25/22 1750 OR glucagon injection 1 mg, 1 mg, Subcutaneous,Q15 Min PRN, Lissy Mc MD dianeal PD LOW calcium-2.5% dex (calcium 2.5 mEq/L) 2,000 mL PERITONEAL DIALYSATE, , Dialysis, PERITONEAL DIALYSIS, Lela Phelps APRN STEM SHAPER, New Bag at 11/25/22 1824 erythromycin (ROMYCIN) ophthalmic ointment, , Left Eye, 4x Daily, Saloni Finn MD, 1 g at 11/26/22 0936 furosemide (LASIX) tablet 40 mg, 40 mg, Oral, Daily, Saloni Finn MD, 40 mg at 11/26/22 0937 gentamicin (GARAMYCIN) 0.1 % cream, , Topical, Daily PRN, Lela Phelps APRN STEM SHAPER heparin ANTICOAGULANT injection 5,000 Units, 5,000 Units, Subcutaneous, Q12H, Lissy Mc MD, 5,000 Units at 11/26/22 0936 insulin aspart (NovoLOG) injection (RAPID ACTING), 1-3 Units, Subcutaneous, TID AC, Lissy Mc MD insulin aspart (NovoLOG) injection (RAPID ACTING), 1-3 Units, Subcutaneous, At Bedtime, Lissy Mc MD, 1 Units at 11/25/22 2131 ipratropium - albuterol 0.5 mg/2.5 mg/3 mL (DUONEB) neb solution 3 mL, 3 mL, Inhalation, Q6H PRN, Saloni Finn MD labetalol (NORMODYNE) tablet 300 mg, 300 mg, Oral, TID, Saloni Finn MD, 300 mg at 11/26/22 0937 lidocaine (LMX4) cream, , Topical, Q1H PRN, Lissy Mc MD lidocaine 1 % 0.1-1 mL, 0.1-1 mL, Other, Q1H PRN, Lissy Mc MD melatonin tablet 1 mg, 1 mg, Oral, At Bedtime PRN, Lissy Mc MD, 1 mg at 11/25/22 2214 naloxone (NARCAN) injection 0.2 mg, 0.2 mg, Intravenous, Q2 Min PRN OR naloxone (NARCAN) injection 0.4 mg, 0.4 mg, Intravenous, Q2 Min PRN OR naloxone (NARCAN) injection 0.2 mg, 0.2 mg, Intramuscular, Q2 Min PRN OR naloxone (NARCAN) injection 0.4 mg, 0.4 mg, Intramuscular, Q2 Min PRN, Lissy Ferguson MD prudqhtb-mcqtqvzvq-tcuJHJEWadwdd (MAXITROL) ophthalmic ointment, , Left Eye, Q6H [facility], Saloni Finn MD, Given at 11/26/22 0710 nicotine (NICODERM CQ) 7 MG/24HR 24 hr patch 1 patch, 1 patch, Transdermal, Daily, 1 patch at 11/26/22 [address], , Transdermal, Q8H [facility], Saloni Finn MD ondansetron (ZOFRAN ODT) ODT tab 4 mg, 4 mg, Oral, Q6H PRN OR ondansetron (ZOFRAN) injection 4 mg, 4 mg, Intravenous, Q6H PRN, Lissy Mc MD, 4 mg at 11/25/22 1737 oxyCODONE (ROXICODONE) tablet 10 mg, 10 mg, Oral, At Bedtime, Saloni Finn MD oxyCODONE (ROXICODONE) tablet 5 mg, 5 mg, Oral, Q4H PRN, Mae Gannon MD, 5 mg at 11/26/22 0044 polyethylene glycol (MIRALAX) Packet 17 g, 17 g, Oral, Daily PRN, Saloni Finn MD prochlorperazine (COMPAZINE) injection 5 mg, 5 mg, Intravenous, Q6H PRN OR prochlorperazine (COMPAZINE) tablet 5 mg, 5 mg, Oral, Q6H PRN OR prochlorperazine (COMPAZINE) suppository 12.5 mg, 12.5 mg, Rectal, Q12H PRN, Lissy Mc MD remdesivir 100 mg in sodium chloride 0.9 % 250 mL intermittent infusion, 100 mg, Intravenous, Q24H,Last Rate: 250 mL/hr at 11/25/222135, 100 mg at 11/25/222135 AND sodium chloride 0.9% BOLUS 50 mL, 50 mL, Intravenous, Q24H, Lissy Mc MD, Last Rate: 100 mL/hr at 11/25/222149, 50 mLat 11/25/222149 [Held by provider] repaglinide (PRANDIN) tablet 1 mg, 1 mg, Oral, TID AC, Saloni Finn MD, 1 mg at 11/25/22 1354 sennosides (SENOKOT) tablet 1 tablet, 1 tablet, Oral, Daily PRN, Saloni Finn MD sodium chloride (PF) 0.9% PF flush 3 mL, 3 mL, Intracatheter, q1 min prn, Lissy Mc MD sodium chloride (PF) 0.9% PF flush 3 mL, 3 mL, Intracatheter, Q8H, Lissy Mc MD, 3 mL at 11/26/22 0710 Labs personally reviewed today during this evaluation at 10:19 AM * Melissa Briones, PT - 11/26/2022 9:02 AM CDT Physical Therapy Discharge Summary Reason for therapy discharge: All goals and outcomes met, no further needs identified. Progress towards therapy goal(s). See goals on Care Plan in [facility] electronic health record for goal details. Goals met Therapy recommendation(s): No further therapy is recommended. 11/26/22 0840 Appointment Info Signing Clinician's Name / Credentials (PT) Melissa Briones PT, DPT Living Environment People in Home sibling(s);child(danielle), adult Current Living Arrangements house Home Accessibility stairs to enter home Number of Stairs, Main Entrance 3 Stair Railings, Main Entrance railings on both sides of stairs Self-Care Usual Activity Tolerance excellent Current Activity Tolerance good Equipment Currently Used at Home none Fall history within last six months no General Information Onset of Illness/Injury or Date of Surgery 11/24/22 Referring Physician Lissy Mc MD Patient/Family Therapy Goals Statement (PT) Return to Home Pertinent History of Current Problem (include personal factors and/or comorbidities that impact thePOC) 77 year old female with PMHx of ESRD on PD, DM2, HTN, chronic pain, tobacco use, COPD who presents as a transfer from [facility] ED for no available beds for 1 week of shortness of breath, found to be COVID positive Existing Precautions/Restrictions no known precautions/restrictions Bed Mobility Bed Mobility no deficits identified Transfers Transfers sit-stand transfer Sit-Stand Transfer Sit-Stand [place] (Transfers) independent Gait/Stairs (Locomotion) [place] Level (Gait) independent Assistive Device (Gait) other (see comments) (none) Distance in Feet 60 Pattern (Gait) swing-through Comment, (Gait/Stairs) 94 on RA at rest; 91 on RA after gait - pt appears at baseline, has no concerns with completing stairs at home Clinical Impression Criteria for Skilled Therapeutic Intervention Evaluation only PT Diagnosis (PT) N/A Influenced by the following impairments N/A Functional limitations due to impairments N/A Clinical Presentation (PT Evaluation Complexity) stable Clinical Presentation Rationale pt presents as medically diagnosed Clinical Decision Making (Complexity) low complexity Risk & Benefits of therapy have been explained evaluation/treatment results reviewed;patient PT Total Evaluation Time PT Eval, Low Complexity Minutes (40361) 10 PT Discharge Planning PT Plan D/C PT PT Discharge Recommendation (DC Rec) home with assist PT Rationale for DC Rec home with assist from family as needed; pt appears to be at baseline mobility PT Brief overview of current status ambulated 60ft in room independently Total Session Time Total Session Time (sum of timed and untimed services) 10 * Nic Ernst RN - 11/26/2022 5:11 AM CDT PRIMARY DIAGNOSIS: GENERIC NURSING OUTPATIENT/OBSERVATION GOALS TO BE MET BEFORE DISCHARGE: ADLs back to baseline: No Activity and level of assistance: Ambulating independently. Pain status: Improved-controlled with oral pain medications. Return to near baseline physical activity: Yes [employer]ed [employer] Boards Stripper Etcher Nurse Safe discharge environment identified: Yes Barriers to discharge: Yes Entered by: Nic Ernst RN 11/26/2022 5:12 AM Pt reported neck pain 8/10, relieved by prn oxycodone. Got PD done successfully for 5 hours last night. Up to the bathroom independently. Pt denied any N/V. Please review provider order for any additional goals. Nurse to notify provider when observation goals have been met and patient is ready for discharge. * Nic Ernst RN - 11/26/2022 12:00 AM CDT PRIMARY DIAGNOSIS: GENERIC NURSING OUTPATIENT/OBSERVATION GOALS TO BE MET BEFORE DISCHARGE: ADLs back to baseline: No Activity and level of assistance: Ambulating independently. Pain status: Improved-controlled with oral pain medications. Return to near baseline physical activity: Yes Printed [employer] Boards Stripper Etcher Nurse Safe discharge environment identified: Yes Barriers to discharge: Yes Entered by: Nic Ernst RN 11/26/2022 12:57 AM Please review provider order for any additional goals. Nurse to notify provider when observation goals have been met and patient is ready for discharge. * Juan Ojeda RN - 11/25/2022 11:00 PM CDT PRIMARY DIAGNOSIS: GENERALIZED WEAKNESS OUTPATIENT/OBSERVATION GOALS TO BE MET BEFORE DISCHARGE 1. Orthostatic performed: No 2. Tolerating PO medications: Yes 3. Return to near baseline physical activity: Yes 4. Cleared for discharge by consultants (if involved): No [employer] Boards Stripper Etcher Nurse Safe discharge environment identified: Yes, comes from home Barriers to discharge: Yes Entered by: Juan Ojeda RN Continue to monitor symptoms for SOB. Given PRN albuterol neb for SOB and tightness tonight. Remains on room air and independent to bathroom/bedside commode. Peritoneal dialysis run tonight. BP improved. Juan Ojeda, RN Please review provider order for any additional goals. Nurse to notify provider when observation goals have been met and patient is ready for discharge. * Saloni Finn MD - 11/25/2022 3:05 PM CDT [facility] Medicine Progress Note - Hospitalist Service Date of Admission: 11/24/2022 Assessment & Plan Maricruz Vanegas is a 77 year old female with PMHx of ESRD on PD, DM2, HTN, chronic pain, tobacco use, COPD who presents as a transfer from [facility] ED for no available beds for 1 week of shortness of breath, found to be COVID positive. #Shortness of breath with exertion #COVID-19 pneumonia 1 week of SOB and runny nose. States she feels shortness of breath with activity even when she getsup to use the bathroom Saturating 92 to 94% on room, not on supplemental oxygen CXR: Minor linear atelectasis at the left lung - Remdesivir x 3 days - D2 - Not require dexamethasone at this time, will consider if patient desaturates #ESRD on peritoneal dialysis #Hyponatremia Performs daily for about 5 hours. Typically does this in the afternoons. Missed 11/24. - Nephrology consulted for PD - LEGAL ADMINISTRATOR Lasix 40mg right eye, Phoso TID with meals - BMP tomorrow #COPD #Tobacco use Smoking for over 40 years. Currently a few cigarettes a day -Albuterol nebulization as needed, not in exacerbation -Counseled for smoking cessation #Type 2 DM not on long-term insulin - Hold home oral medications (glipizide, repaglinide), A1C recently 7 - CBG's 106 - 115 except for one high reading overnight - sliding scale insulin, low resistance in setting of ESRD #Essential HTN Blood pressure elevated - Resumed LEGAL ADMINISTRATOR amlodipine 10mg BID, clonidine 0.2mg qAM and 0.3mg qPM, labetalol 300mg TID #Chronic pain #Chronic opioid use - Continue home oxycodone 5mg at bedtime for back and leg pain #PAD -LEGAL ADMINISTRATOR aspirin 81mg #Eye disorder -Refresh plus, erythromycin ointment, Maxitrol L eye -- Patient requested for a change in diet from Dialysis diet Switched to consistent carb with low potassium diet Observation Goals: -diagnostic tests and consults completed and resulted, -vital signs normal or atpatient baseline, Nurse to notify provider when observation goals have been met and patient is ready for discharge. Diet: Combination Diet Regular Diet; 3 gm K Diet (low potassium); Moderate Consistent Carb (60 g CHO per Meal) Diet DVT Prophylaxis: Heparin SQ Jones Catheter: Not present Lines: None Cardiac Monitoring: None Code Status: Full Code Clinically Significant Risk Factors Present on Admission # Hyponatremia: Lowest Na = 128 mmol/L in last 2 days, will monitor as appropriate # Hypoalbuminemia: Lowest albumin = 3.2 g/dL at 11/24/2022 10:09 PM, will monitor as appropriate # Drug Induced Platelet Defect: home medication list includes an antiplatelet medication # Hypertension: Home medication list includes antihypertensive(s) # Cachexia: Estimated body mass index is 17.5 kg/m?? as calculated from the following: Height as of this encounter: 1.549 m (5' 1). Weight as of this encounter: 42 kg (92 lb 9.5 oz). # Financial/Environmental Concerns: none Disposition Plan Expected Discharge Date: 11/26/2022 Destination: home Saloni Finn MD Hospitalist Service [facility] Securely message with [employer] (more info) Text page via [facility] Paging/Directory Interval History Patient was examined at the bedside, states she feels winded with exertion and unable to comfortably even walk to the bathroom. Saturating 92 to 94% on room air at rest. Resumed all home medication. Will monitor and likely will plan for discharge tomorrow if patient is stable Physical Exam Vital Signs: Temp: 98.2 ??F (36.8 ??C) Temp src: Oral BP: (!) 153/70 Pulse: 72 Resp: 16 SpO2: 92 % O2 Device: None (Room air) Weight: 92 lbs 9.49 oz General Appearance: NAD, conversational. Chronically ill appearing, cachectic Eyes: No scleral icterus Respiratory: Poor air movement bilaterally, but no wheezing or crackles Cardiovascular: RRR. No m/r/g GI: Soft. NT. Mildly distended with peritoneal catheter in place with clean dressing Skin: No rashes on exposed skin. No peripheral edema Neurologic: A&Ox4 Medical Decision Making 35 MINUTES SPENT BY ME on the date of service doing chart review, history, exam, documentation & further activities per the note. Data I have personally reviewed the following data over the past 24 hrs: 6.9 \ 12.2 / 271 128 (L) 91 (L) 78.6 (H) / 106 (H) 5.2 22 4.73 (H) \ ALT: 15 AST: 21 AP: 105 (H) TBILI: 0.2 ALB: 3.2 (L) TOT PROTEIN: 7.1 LIPASE: N/A Imaging results reviewed over the past 24 hrs: Recent Results (from the past 24 hour(s)) XR Chest Port 1 View Narrative EXAM: XR CHEST PORT 1 VIEW LOCATION: [facility] DATE: 11/25/2022 INDICATION: Shortness of breath. COMPARISON: None. Impression IMPRESSION: Minor linear atelectasis left base. Lungs are otherwise clear. No adenopathy or effusion. Normal cardiac size and pulmonary vascularity. Atherosclerotic thoracic aorta. Degenerative changes both shoulders and the spine. A few gas-filled loops of small bowel in the right upper abdomen. No free gas underneath the hemidiaphragms. No prior study available for comparison. Current study will serve as a baseline for future follow-up. * Nic Ernst RN - 11/25/2022 4:54 AM CDT PRIMARY DIAGNOSIS: GENERIC NURSING OUTPATIENT/OBSERVATION GOALS TO BE MET BEFORE DISCHARGE: ADLs back to baseline: No Activity and level of assistance: Ambulating independently. Pain status: Improved but still requiring IV narcotics. Return to near baseline physical activity: Yes [employer] Stri[employer] Etcher Nurse Safe discharge environment identified: Yes Barriers to discharge: Yes Entered by: Nic Ernst RN 11/25/2022 4:54 AM Patient is oriented x3,disoriented to place. Denies pain, but stays awake overnight. Gets up SBA tothe bathroom. Please review provider order for any additional goals. Nurse to notify provider when observation goals have been met and patient is ready for discharge. * Nic Ernst RN - 11/25/2022 12:00 AM CDT PRIMARY DIAGNOSIS: GENERIC NURSING OUTPATIENT/OBSERVATION GOALS TO BE MET BEFORE DISCHARGE: ADLs back to baseline: No Activity and level of assistance: Ambulating independently. Pain status: Improved but still requiring IV narcotics. Return to near baseline physical activity: Yes [employer] Stripper Etcher Nurse Safe discharge environment identified: Yes Barriers to discharge: Yes Entered by: Nic Ernst RN 11/25/2022 4:53 AM Please review provider order for any additional goals. Nurse to notify provider when observation goals have been met and patient is ready for discharge. * Juan Ojeda RN - 11/24/2022 11:30 PM CDT PRIMARY DIAGNOSIS: GENERALIZED WEAKNESS OUTPATIENT/OBSERVATION GOALS TO BE MET BEFORE DISCHARGE 1. Orthostatic performed: No 2. Tolerating PO medications: Yes 3. Return to near baseline physical activity: Yes 4. Cleared for discharge by consultants (if involved): No [employer] Etcher Nurse Safe discharge environment identified: Needs assessment Barriers to discharge: Yes Entered by: Juan Ojeda RN 11/25/2022 5:59 AM Remdesivir to be administered. SOB with activity, but stable gait to the bathroom. BP elevated, asymptomatic. Skipping peritoneal dialysis tonight. Consult in with nephrology. [facility] contacted [facility] [place]. Plan to administer tomorrow night. Juan Ojeda RN Please review provider order for any additional goals. Nurse to notify provider when observation goals have been met and patient is ready for discharge. documented in this encounter H&P Notes * Lissy Mc MD - 11/24/2022 11:30 PM CDT [facility] History and Physical - Hospitalist Service Date of Admission: 11/24/2022 Assessment & Plan Maricruz Vanegas is a 77 year old female with PMHx of ESRD on PD, DM2, HTN, chronic pain, tobacco use, COPD who presents as a transfer from [facility] ED for no available beds for 1 week of shortness of breath, found to be COVID positive. #Shortness of breath #COVID-19 pneumonia 1 week of SOB and runny nose. Not requiring O2. Reportedly clear imaging in [place]. COVID positive. The patient reports actually remaining fairly functional even right now but the ED provider in [place] felt she would not be able to go home. - Remdesivir x3 days - Check CXR here #ESRD on peritoneal dialysis #Hyponatremia Performs daily for about 5 hours. Typically does this in the afternoons. Missed 11/24. - Nephrology consulted for PD - Med/rec home meds (maybe Lasix 40mg daily, Phoslo TID) #COPD #Tobacco use Smoking for over 40 years. Currently a few cigarettes a day. -Med/rec home meds #Type 2 DM not on long-term insulin - Hold home oral medications, A1C recently 7 - Med/rec home meds (maybe repaglinide, glipizide) - sliding scale insulin, starting low in setting of ESRD #Primary HTN - Med/rec home meds (maybe amlodipine 10mg BID, clonidine 0.2mg qAM and 0.3mg qPM, labetalol 300mg TID) #Chronic pain #Chronic opioid use - Continue home oxycodone 5mg at bedtime for back and leg pain #PAD - Med/rec home meds (maybe ASA 81mg) #Eye disorder - Patient uses eyedrop, but unsure what. Follow up med/rec Observation Goals: -diagnostic tests and consults completed and resulted, -vital signs normal or atpatient baseline, Nurse to notify provider when observation goals have been met and patient is ready for discharge. Diet: Renal Diet (dialysis) DVT Prophylaxis: Heparin SQ Jones Catheter: Not present Lines: None Cardiac Monitoring: None Code Status: Full Code Clinically Significant Risk Factors Present on Admission # Hyponatremia: Lowest Na = 128 mmol/L in last 2 days, will monitor as appropriate # Hypoalbuminemia: Lowest albumin = 3.2 g/dL at 11/24/2022 10:09 PM, will monitor as appropriate # Cachexia: Estimated body mass index is 17.5 kg/m?? as calculated from the following: Height as of this encounter: 1.549 m (5' 1). Weight as of this encounter: 42 kg (92 lb 9.5 oz). Disposition Plan Expected Discharge Date: 11/25/2022 LISSY MC MD Hospitalist Service [facility] Securely message with [employer] (more info) Text page via [facility] Paging/Directory Chief Complaint Shortness of breath History is obtained from the patient History of Present Illness Maricruz Vanegas is a 77 year old female with PMHx of ESRD on PD, DM2, HTN, chronic pain, tobacco use, COPD who presents as a transfer from [facility] ED for no available beds for 1 week of shortness of breath. She reports the shortness of breath is when she exerts herself, but not at rest. She reports a runny nose during this time, but no sore throat, cough, chest pain, abdominal pain, fever/chills. In the [place] ED the patient was not hypoxic. But felt she could not be discharged home due to being unable to care for herself. She lives with her 2 adult sons. When asked about her walking here, she says she can walk around the house fine, has just been feeling slightly short of breath. At baseline does all her own errands. Past Medical History Past Medical History: Diagnosis Date Diabetes mellitus, type 2 (H) ESRD (end stage renal disease) on dialysis (H) Past Surgical History Past Surgical History: Procedure Laterality Date PERITONEAL CATHETER INSERTION Prior to Admission Medications None Physical Exam Vital Signs: Temp: 97.9 ??F (36.6 ??C) Temp src: Oral BP: (!) 166/75 (no symptoms) Pulse: 72 Resp: 16 SpO2: 95 % O2 Device: None (Room air) Weight: 92 lbs 9.49 oz General Appearance: NAD, conversational. Chronically ill appearing, very thin Eyes: No scleral icterus HEENT: MMM Respiratory: Poor air movement bilaterally, but no wheezing or crackles Cardiovascular: RRR. No m/r/g GI: Soft. NT. Mildly distended with peritoneal catheter in place with clean dressing Skin: No rashes on exposed skin. No peripheral edema Neurologic: A&Ox4 Medical Decision Making 80 MINUTES SPENT BY ME on the date of service doing chart review, history, exam, documentation & further activities per the note. Data I have personally reviewed the following data over the past 24 hrs: 6.9 \ 12.2 / 271 128 (L) 91 (L) 78.6 (H) / 301 (H) 5.2 22 4.73 (H) \ ALT: 15 AST: 21 AP: 105 (H) TBILI: 0.2 ALB: 3.2 (L) TOT PROTEIN: 7.1 LIPASE: N/A Imaging results reviewed over the past 24 hrs: No results found for this or any previous visit (from the past 24 hour(s)). documented in this encounter Procedure Notes * Kaylan Gee RN - 11/25/2022 5:00 PM CDT CCPD cycler set up per orders of Dr. Phelps Total volume (ml) : 2600 Therapy time:5 Fill volume (ml):1300 ml Cycles:2 Dextrose 1.5% volume (ml):2600 PD catheter visualized. Machine ready to connect. Report given to Lluvia Thacker RN and P2 chargeRN. Kaylan Gee RN [facility] documented in this encounter Consult Notes * Starr Tapia RN - 11/25/2022 11:32 AM CDTAssociated Order(s): CARE MANAGEMENT / SOCIAL WORK IP CONSULT Care Management Initial Consult General Information Assessment completed with: Patient, Type of CM/SW Visit: Initial Assessment Primary Care Provider verified and updated as needed: Yes Readmission within the last 30 days: no previous admission in last 30 days Reason for Consult: financial concerns Advance Care Planning: Advance Care Planning Reviewed: no concerns identified Communication Assessment Patient's communication style: spoken language (Micronesian or Bilingual) Hearing Difficulty or Deaf: no Wear Glasses or Blind: yes Cognitive Cognitive/Neuro/Behavioral: WDL Living Environment: People in home: child(danielle), adult, sibling(s) Sister Nkechi Current living Arrangements: house Able to return to prior arrangements: yes Family/Social Support: Care provided by: self Provides care for: other (see comments) (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) Description of Support System: Current Resources: Patient receiving home care services: No Community Resources: None Equipment currently used at home: grab bar, tub/shower, other (see comments), tub bench, raised toilet seat, glucometer (walk in tub) Supplies currently used at home: None Employment/Financial: Employment Status: employed full-time Financial Concerns: none Does the patient's insurance plan have a [...] to admission patient needed assistance: Dependent ADLs:: Independent Dependent IADLs:: Independent Mental Health Status: Chemical Dependency Status: Values/Beliefs: Spiritual, Cultural Beliefs, Jehovah'S Witness Practices, Values that affect care: Additional Information: Assessed with pt. She lives in a house with her sister and two sons. She is independent with ADLs and IADLs. 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 No services or equipment. Transport TBD. Pt says she has Medicare and BCBS. CM sent message to [email or web address] SW to look into. No CM needs unless pt cannot find transport. RNCM to follow for medical progression, recommendations, and final discharge plan. Starr Tapia RN * Lela Phelps, JAZMYNE STEM SHAPER - 11/25/2022 10:06 AM CDT 11/25/2022 November 25, 2022 10:06 AM Impression and Plan: 1) ESRD: Usually dialyze via PD. Her primary hat cleaner is Dr Gabriel Mena with [facility] and she normally is seen at [facility] PD clinic ([phone]). She missed her 11/24 PD due to ED visit. Her clinic is closed today. PD Prescription: [facility] [place] Estimated Dry Weight 44 kg Calcium Content in Bag (mEq/L) 2.5 mEq/L Magnesium Content in Bag (mEq/L) 0.5 mEq/L Dextrose Content in Bag % 1.5; 2.5; 4.25% Number of Cycler Exchanges 2 Fill Volume 1300 mL Total Cycler Therapy Volume 2600 mL Total Cycler Therapy Time 300 min Average Dwell Time 135 min - Avoid nephrotoxins and renally dose all medications. - Follow weights and I&Os -Abdomen is slightly hard to touch, small amount of white drainage on dressing, will sent PD fluid for analysis. No fever. 2) Covid 19/SOB : SOB x1 and runny nose, tested positive in the ED. 3) Blood Pressure/Volume: long standing history of hypertension. Blood pressure hypertensive. No med changes today, continue to challenge her dry weight with ongoing monitoring. LEGAL ADMINISTRATOR blood pressure medication: Norvasc 10 mg bid, Clonidine 0.1mg 2 tabs AM and 3 tabs PM, and lasix 40 mg daily. -Just got morning medications, trend bp. PD later today should also help. 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 Recent hemoglobin 12.2. -Transfuse if less than 7. 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 6) Diabetes: Patient with long standing history of type 2 DM. Management per IM. 7) Hyponatremia: Sodium at 128 today -PD today as noted above -Recheck sodium tomorrow, should improve with better intake. CC: ESRD HPI: I was asked to consult on this 77 year old female. MRS Vanegas past medical history is significant for ESRD on PD, DM type 2, hypertension, chronic pain, tobacco use disorder, COPD and Anemia. She presented to the ED with shortness of breath x 1 week and was found to have Covid 19, she was transferred to [facility] due to lack of bed from an outside hospital. Upon evaluation today, the patient was in bed resting. Denies chest pain, edema, abdominal pain, N/V, rashes, change of taste, and increase insomnia. She is on RA and feeling okay. She missed yesterday PD due to ED visit. Medical History: Past Medical History: Diagnosis Date Diabetes mellitus, type 2 (H) ESRD (end stage renal disease) on dialysis (H) Surgical History: Past Surgical History: Procedure Laterality Date PERITONEAL CATHETER INSERTION Medications: Prior to admission: Medications Prior to Admission Medication Sig Dispense Refill Last Dose albuterol (PROVENTIL) (2.5 MG/3ML) 0.083% neb solution Take 2.5 mg by nebulization every 4 hours asneeded for shortness of breath Unknown at PRN amLODIPine (NORVASC) 10 MG tablet Take 10 mg by mouth 2 times daily 11/23/2022 at PM aspirin 81 MG EC tablet Take 81 mg by mouth daily 11/23/2022 at PM calcium acetate (PHOSLO) 667 MG CAPS capsule Take 667 mg by mouth 3 times daily (with meals) 11/23/2022 at PM carboxymethylcellulose PF (REFRESH PLUS) 0.5 % ophthalmic solution Place 1 drop Into the left eye 4times daily 11/23/2022 at HS cetirizine (ZYRTEC) 10 MG tablet Take 10 mg by mouth daily 11/23/2022 at HS cloNIDine (CATAPRES) 0.1 MG tablet Take 2 tablets (0.2 mg) by mouth every morning and take 3 tablets by mouth (0.3 mg) every evening 11/23/2022 at PM erythromycin (ROMYCIN) 5 MG/GM ophthalmic ointment Place Into the left eye 4 times daily 11/23/2022t HS furosemide (LASIX) 40 MG tablet Take 40 mg by mouth daily 11/23/2022 at AM glipiZIDE (GLUCOTROL XL) 10 MG 24 hr tablet Take 20 mg by mouth daily (before supper) 11/23/2022 atPM ipratropium - albuterol 0.5 mg/2.5 mg/3 mL (DUONEB) 0.5-2.5 (3) MG/3ML neb solution Inhale 3 mLs into the lungs every 6 hours as needed for shortness of breath Unknown at PRN labetalol (NORMODYNE) 300 MG tablet Take 300 mg by mouth 3 times daily 11/23/2022 at PM [id number] (MAXITROL) 3.5-15681-4.[address] 0.25 inches Into the left eye 4 times daily 11/23/2022 at HS nicotine (NICODERM CQ) 7 MG/24HR [address] 1 patch onto the skin every 24 hours 11/23/2022 at PM oxyCODONE (ROXICODONE) 5 MG tablet Take 10 mg by mouth at bedtime 11/23/2022 at PM polyethylene glycol (MIRALAX) 17 g packet Take 1 packet by mouth every 3 days Past Week at AM repaglinide (PRANDIN) 1 MG tablet Take 1 tablet by mouth 3 times daily (before meals) 11/23/2022 atPM senna (SENOKOT) 8.6 MG tablet Take 1 tablet by mouth every 3 days Past Week at AM sorbitol 70 % SOLN solution Take 30 mLs by mouth every 3 days Past Week at AM triamcinolone (KENALOG) 0.1 % external cream Apply topically daily as needed for irritation Unknownat PRN Current: Current Facility-Administered Medications: amLODIPine (NORVASC) tablet 10 mg, 10 mg, Oral, BID, Saloni Finn MD aspirin EC tablet 81 mg, 81 mg, Oral, Daily, Saloni Finn MD, 81 mg at 11/25/22 0942 calcium acetate (PHOSLO) capsule 667 mg, 667 mg, Oral, TID w/meals, Saloni Finn MD carboxymethylcellulose PF (REFRESH PLUS) 0.5 % ophthalmic solution 1 drop, 1 drop, Left Eye, 4x Daily, Saloni Finn MD cetirizine (zyrTEC) tablet 10 mg, 10 mg, Oral, Daily, Saloni Finn MD, 10 mg at 11/25/22 0939 cloNIDine (CATAPRES) tablet 0.2 mg, 0.2 mg, Oral, BID, Saloni Finn MD, 0.2 mg at 11/25/22 0944 glucose gel 15-30 g, 15-30 g, Oral, Q15 Min PRN OR dextrose 50 % injection 25-50 mL, 25-50 mL, Intravenous, Q15 Min PRN OR glucagon injection 1 mg, 1 mg, Subcutaneous, Q15 Min PRN, Lissy Mc MD erythromycin (ROMYCIN) ophthalmic ointment, , Left Eye, 4x Daily, Saloni Finn MD furosemide (LASIX) tablet 40 mg, 40 mg, Oral, Daily, Saloni Finn MD, 40 mg at 11/25/22 0942 heparin ANTICOAGULANT injection 5,000 Units, 5,000 Units, Subcutaneous, Q12H, Lissy Mc MD, 5,000 Units at 11/24/22 2246 insulin aspart (NovoLOG) injection (RAPID ACTING), 1-3 Units, Subcutaneous, TID AC, Lissy Mc MD insulin aspart (NovoLOG) injection (RAPID ACTING), 1-3 Units, Subcutaneous, At Bedtime, Lissy Mc MD, 2 Units at 11/25/22 0102 ipratropium - albuterol 0.5 mg/2.5 mg/3 mL (DUONEB) neb solution 3 mL, 3 mL, Inhalation, Q6H PRN, Saloni Finn MD labetalol (NORMODYNE) tablet 300 mg, 300 mg, Oral, TID, Saloni Finn MD lidocaine (LMX4) cream, , Topical, Q1H PRN, Lissy Mc MD lidocaine 1 % 0.1-1 mL, 0.1-1 mL, Other, Q1H PRN, Lissy Mc MD melatonin tablet 1 mg, 1 mg, Oral, At Bedtime PRN, Lissy Mc MD naloxone (NARCAN) injection 0.2 mg, 0.2 mg, Intravenous, Q2 Min PRN OR naloxone (NARCAN) injection 0.4 mg, 0.4 mg, Intravenous, Q2 Min PRN OR naloxone (NARCAN) injection 0.2 mg, 0.2 mg, Intramuscular, Q2 Min PRN OR naloxone (NARCAN) injection 0.4 mg, 0.4 mg, Intramuscular, Q2 Min PRN, Lissy Ferguson MD nicotine (NICODERM CQ) 7 MG/24HR 24 hr patch 1 patch, 1 patch, Transdermal, Daily AND nicotine Patch in Place, , Transdermal, Q8H ROXI, Saloni Finn MD ondansetron (ZOFRAN ODT) ODT tab 4 mg, 4 mg, Oral, Q6H PRN OR ondansetron (ZOFRAN) injection 4 mg, 4 mg, Intravenous, Q6H PRN, Lissy Mc MD, 4 mg at 11/25/22 0939 oxyCODONE (ROXICODONE) tablet 5 mg, 5 mg, Oral, At Bedtime, Lissy Mc MD, 5 mg at 11/24/22 2246 polyethylene glycol (MIRALAX) Packet 17 g, 17 g, Oral, Daily PRN, Saloni Finn MD prochlorperazine (COMPAZINE) injection 5 mg, 5 mg, Intravenous, Q6H PRN OR prochlorperazine (COMPAZINE) tablet 5 mg, 5 mg, Oral, Q6H PRN OR prochlorperazine (COMPAZINE) suppository 12.5 mg, 12.5 mg, Rectal, Q12H PRN, Lissy Mc MD remdesivir 100 mg in sodium chloride 0.9 % 250 mL intermittent infusion, 100 mg, Intravenous, Q24H AND sodium chloride 0.9% BOLUS 50 mL, 50 mL, Intravenous, Q24H, Lissy Mc MD repaglinide (PRANDIN) tablet 1 mg, 1 mg, Oral, TID AC, Saloni Finn MD sennosides (SENOKOT) tablet 1 tablet, 1 tablet, Oral, Daily PRN, Saloni Finn MD sodium chloride (PF) 0.9% PF flush 3 mL, 3 mL, Intracatheter, q1 min prn, Lissy Mc MD sodium chloride (PF) 0.9% PF flush 3 mL, 3 mL, Intracatheter, Q8H, Lissy Mc MD, 3 mL at 11/25/22 0552 Allergies: Fish oil, Lisinopril-hydrochlorothiazide, and Niacin Social History: Family History: No family history on file. Review of Systems: : ROS: Comprehensive ROS was negative other than as noted in the HPI. Physical Exam: BP (!) 193/84 (BP Location: Right arm) Pulse 80 Temp 97.9 ??F (36.6 ??C) (Oral) Resp 18 Ht 1.549 m (5' 1) Wt 42 kg (92 lb 9.5 oz) SpO2 95% BMI 17.50 kg/m?? In general this is a 77 year old female in no acute distress. General: Calm & comfortable Eyes: Pupils equal, sclerae not icteric ENT: Mucus membranes moist, no lesions noted Resp: CTA bilaterally, no distress, normal effort CV: RRR without murmur, no hip/leg edema GI: Soft NT NG, not painful. Abdomen slightly hard. PD insertion site with no signs of infection although positive with white thick drainage. Psych: A&Ox3, not depressed Neuro: Moves all extremities. Skin: No rash noted Labs and XRays: Reviewed Recent Labs Lab Test 11/24/22 2209 POTASSIUM 5.2 CHLORIDE 91* ANIONGAP 15 Recent Labs Lab Test 11/24/22 2209 WBC 6.9 RBC 4.16 MCV 90 MCH 29.3 RDW 14.5 Thank you for allowing me to participate in @@ Guilherme???s care. Lela Phelps, KAELYN, STEM SHAPER, MARA [facility] Office # [phone] documented in this encounter Miscellaneous Notes * Plan of Care - Florence Turner RN - 11/26/2022 4:09 PM CDT BP (!) 143/63 (BP Location: Right arm) Pulse 63 Temp 97.5 ??F (36.4 ??C) (Oral) Resp 18 Ht 1.549 m (5' 1) Wt 42 kg (92 lb 9.5 oz) SpO2 93% BMI 17.50 kg/m?? Patient educated on discharge instructions. PIV removed, COVID instructions discussed. Questions answered. Patient to discharge with Taxi voucher. * Plan of Care - Lucia Brown RN - 11/26/2022 1:20 PM CDT PRIMARY DIAGNOSIS: COVID infection OUTPATIENT/OBSERVATION GOALS TO BE MET BEFORE DISCHARGE: ADLs back to baseline: Yes Activity and level of assistance: Ambulating independently. Pain status: Improved-controlled with oral pain medications. Return to near baseline physical activity: Yes [employer] Stri[employer] Etcher Nurse Safe discharge environment identified: Yes Barriers to discharge: Yes Entered by: Lucia Brown RN 11/26/2022 4:16 PM VSS on RA, patient continues to deny SOB/dyspnea. Discharge orders placed, attempting to coordinatetransportation as patient lives in [place] and has no one to pick her up. For detailed vital signs and assessments, please see documentation flowsheets. For detailed medication administrations, please see SAMI. Lucia Brown RN 11/26/2022 [id number] * Plan of Care - Lucia Brown RN - 11/26/2022 10:00 AM CDT PRIMARY DIAGNOSIS: COVID infection OUTPATIENT/OBSERVATION GOALS TO BE MET BEFORE DISCHARGE: ADLs back to baseline: Yes Activity and level of assistance: Ambulating independently. Pain status: Improved-controlled with oral pain medications. Return to near baseline physical activity: Yes [employer] Stripper Etcher Nurse Safe discharge environment identified: Yes Barriers to discharge: Yes Entered by: Lucia Brown RN 11/26/2022 10:11 AM Patient VSS on RA this morning, A+Ox4, up independently in room. Denies dyspnea/SOB at rest and w/ activity. Endorsing minimal pain 2/10, declines need for prn intervention at this time. Patient hopeful to discharge today; no orders at this time, hospitalist to round on patient. For detailed vital signs and assessments, please see documentation flowsheets. For detailed medication administrations, please see MAR. Lucia Brown RN 11/26/2022 [id number] * Plan of Care - Lluvia Thacker RN - 11/25/2022 6:43 PM CDT Pt has nausea intermittently, zofran was effective. Pt's appetite poor, ate cream of wheat with shredded cheese but too lumpy for her. Pt had tomato soup for lunch and liked that. Ordered supper, still in process. Pt is drinking water and diet lemonade. Pt did get a medication at lunch for her blood sugar, MD put it on hold afterwards. Blood glucose did drop to 69, due to nausea insurance underwriter sales gave dextrose IV and bg now 169. Pt was asymptomatic, normally would get shaky. Pt reports she's been diabeticfor 40 years. Peritoneal dialysis sent for cultures. Peritoneal dialysis started this evening. Pt still voids often so commode at bedside while dialysis hooked up. Pt is independent in the room otherwise. Tylenol given for generalized aches on day shift, effective. Pt is concerned about not sleeping well as this happens at home. MD was made aware and she said she'd look into it on the day shift. * Utilization Review - Angelito Manning MD - 11/25/2022 3:44 PM CDT Continued stay Observation Concurrent stay review; Secondary Review Determination Under the authority of the Utilization Management Committee, the utilization review process indicated a secondary review on the above patient. The review outcome is based on review of the medical records, discussions with staff, and applying clinical experience noted on the date of the review. (x) Observation Status Appropriate - Concurrent stay review RATIONALE FOR DETERMINATION 77 year old female with PMHx of ESRD on PD, DM2, HTN, chronic pain, tobacco use, COPD who presents with 1 week of shortness of breath, found to be COVID positive. Pt transferred here since no bed at [facility]. Not needing oxygen Consider changing to inpt if symptoms not improving or worsen requiring further evaluation/work-up and treatments after 48 hr observational period. Patient is clinically improving and there is no clear indication to change patient's status to inpatient. The severity of illness, intensity of service provided, expected LOS and risk for adverse outcome make the care appropriate for observation. The information on this document is developed [...] 1 and Chapter 6, section 70.4. Sincerely, Angelito Manning MD Utilization Review Physician Advisor [facility]. * Pharmacy-Admission Medication History - Guerda Clement RPH - 11/25/2022 8:55 AM CDT Pharmacist Admission Medication History Admission medication history is complete. The information provided in this note is only as accurateas the sources available at the time of the update. Information Source(s): Patient, Clinic records, and CareEverywhere via phone Pertinent Information: Medication list created based on clinic records from most previous office visit. Patient seemed to know all medications well: recognized names and could speak to what time of day she took each one. Eye topicals: She states that she is on two ointments and refresh drops QID for left eye Oxycodone: she is prescribed BID PRN but always takes 2 tabs at bedtime Constipation meds: States that she does miralax/senna/sorbitol together every 3 days Nicotine: using, but could not verify strength (has one in her purse though). 7 mg ordered per chart reivew. *Could not confirm fill histories with surescripts as patient has not provided consent at this time* Changes made to LEGAL ADMINISTRATOR medication list: Added: All Deleted: None Changed: None Allergies reviewed with patient and updates made in EHR: yes Medication History Completed By: Guerda Clement RPH 11/25/2022 8:55 AM Prior to Admission medications Medication Sig Last Dose Taking? Auth Provider [facility] End Date albuterol (PROVENTIL) (2.5 MG/3ML) 0.083% neb solution Take 2.5 mg by nebulization every 4 hours asneeded for shortness of breath Unknown at PRN Yes Unknown, Entered By History Yes amLODIPine (NORVASC) 10 MG tablet Take 10 mg by mouth 2 times daily 11/23/2022 at PM Yes Unknown, Entered By History Yes aspirin 81 MG EC tablet Take 81 mg by mouth daily 11/23/2022 at PM Yes Unknown, Entered By History calcium acetate (PHOSLO) 667 MG CAPS capsule Take 667 mg by mouth 3 times daily (with meals) 11/23/2022 at PM Yes Unknown, Entered By History carboxymethylcellulose PF (REFRESH PLUS) 0.5 % ophthalmic solution Place 1 drop Into the left eye 4times daily 11/23/2022 at HS Yes Unknown, Entered By History cetirizine (ZYRTEC) 10 MG tablet Take 10 mg by mouth daily 11/23/2022 at HS Yes Unknown, Entered ByHistory cloNIDine (CATAPRES) 0.1 MG tablet Take 2 tablets (0.2 mg) by mouth every morning and take 3 tablets by mouth (0.3 mg) every evening 11/23/2022 at PM Yes Unknown, Entered By History Yes erythromycin (ROMYCIN) 5 MG/GM ophthalmic ointment Place Into the left eye 4 times daily 11/23/2022t HS Yes Unknown, Entered By History furosemide (LASIX) 40 MG tablet Take 40 mg by mouth daily 11/23/2022 at AM Yes Unknown, Entered By History Yes glipiZIDE (GLUCOTROL XL) 10 MG 24 hr tablet Take 20 mg by mouth daily (before supper) 11/23/2022 atPM Yes Unknown, Entered By History Yes ipratropium - albuterol 0.5 mg/2.5 mg/3 mL (DUONEB) 0.5-2.5 (3) MG/3ML neb solution Inhale 3 mLs into the lungs every 6 hours as needed for shortness of breath Unknown at PRN Yes Unknown, Entered By History Yes labetalol (NORMODYNE) 300 MG tablet Take 300 mg by mouth 3 times daily 11/23/2022 at PM Yes Unknown, Entered By History Yes rcxhffgk-lchmugipf-birDRVPQzghap (MAXITROL) 3.5-82616-5.[address] 0.25 inches Into the left eye 4 times daily 11/23/2022 at HS Yes Unknown, Entered By History nicotine (NICODERM CQ) 7 MG/24HR [address] 1 patch onto the skin every 24 hours 11/23/2022 at PM Yes Unknown, Entered By History oxyCODONE (ROXICODONE) 5 MG tablet Take 10 mg by mouth at bedtime 11/23/2022 at PM Yes Unknown, Entered By History polyethylene glycol (MIRALAX) 17 g packet Take 1 packet by mouth every 3 days Past Week at AM Yes Unknown, Entered By History repaglinide (PRANDIN) 1 MG tablet Take 1 tablet by mouth 3 times daily (before meals) 11/23/2022 atPM Yes Unknown, Entered By History Yes senna (SENOKOT) 8.6 MG tablet Take 1 tablet by mouth every 3 days Past Week at AM Yes Unknown, Entered By History sorbitol 70 % SOLN solution Take 30 mLs by mouth every 3 days Past Week at AM Yes Unknown, Entered By History triamcinolone (KENALOG) 0.1 % external cream Apply topically daily as needed for irritation Unknownat PRN Yes Unknown, Entered By History documented in this encounter Plan of Treatment Not on file documented as of this encounter Procedures Procedure Name Priority Date/Time Associated Diagnosis Comments GLUCOSE BY METER Routine 11/26/2022 1:14 PM CDT GLUCOSE BY METER Routine 11/26/2022 9:08 AM CDT BASIC METABOLIC PANEL Routine 11/26/2022 6:19 AM CDT GLUCOSE BY METER Routine 11/26/2022 2:45 AM CDT GLUCOSE BY METER Routine 11/25/2022 8:49 PM CDT GLUCOSE BY METER Routine 11/25/2022 6:16 PM CDT AEROBIC BACTERIAL CULTURE ROUTINE Routine 11/25/2022 6:15 PM CDT ANAEROBIC BACTERIAL CULTURE ROUTINE Routine 11/25/2022 6:15 PM CDT GLUCOSE BY METER Routine 11/25/2022 5:42 PM CDT GLUCOSE BY METER Routine 11/25/2022 12:4 5 PM CDT GLUCOSE BY METER Routine 11/25/2022 8:18 AM CDT GLUCOSE BY METER Routine 11/25/2022 12:5 4 AM CDT XR CHEST PORT 1 VIEW Routine 11/25/2022 12:52 AM CDT EXTRA TUBE Routine 11/24/2022 10:09 PM CDT EXTRA RED TOP TUBE Routine 11/24/2022 10 :09 PM CDT CBC WITH PLATELETS AND DIFFERENTIAL Routine 11/24/2022 10:09 PM CDT CBC WITH PLATELETS & DIFFERENTIAL Routine 11/24/2022 10:09 PM CDT PHOSPHORUS Routine 11/24/2022 10:09 PM CDT MAGNESIUM Routine 11/24/2022 10:09 PM CDT COMPREHENSIVE METABOLIC PANEL Routine 11/24/2022 10:09 PM CDT documented in this encounter Results * (ABNORMAL) Glucose by meter (11/26/2022 1:14 PM CDT) [facility] GLUCOSE BY METER POCT 140(H) 70 - 99 mg/dL 11/26/2022 1:21 PM CDT [facility] POCT RESULTS Blood, Capillary BLOOD SPECIMEN / Unknown 11/26/2022 1:14 PM CDT 11/26/2022 1:21 PM CDT Saloni Finn MD LAB - BEAKER POCT Performing Organization Address City/[facility]/ZIP Co de Phone Number [facility] POCT RESULTS [address] [place] [address] * Glucose by meter (11/26/2022 9:08 AM CDT) GLUCOSE BY METER POCT 70 70 - 99 mg/dL 11/26/2022 12:32 PM CDT [facility] POCT RESULTS Blood, Capillary BLOOD SPECIMEN / Unknown 11/26/2022 9:08 AM CDT 11/26/2022 12:32 PM CDT Saloni Finn MD LAB - BEAKER POCT Performing Organization Address [facility] Co de Phone Number [facility] POCT RESULTS [address] [place] [address] * (ABNORMAL) Basic metabolic panel (11/26/2022 6:19 AM CDT) Sodium 132(L) 135 - 145 mmol/L 11/26/2022 6:56 AM CDT [facility] Comment:Reference intervals for this test were updated on 11/06/2022 to more accurately reflect our healthy population. There may be differences in the flagging of prior results with similar values performed with this method. Interpretation of those prior results can be made in the context of the updated reference intervals. Potassium 5.1 3.4 - 5.3 mmol/L 11/26/2022 6:56 AM CDT [facility] Chloride 95(L) 98 - 107 mmol/L 11/26/2022 6:56 AM CDT [facility] Carbon Dioxide (CO2) 25 22 - 29 mmol/L 11/26/2022 6:56 AM CDT [facility] Anion Gap 12 7 - 15 mmol/L 11/26/2022 6:56 AM CDT [facility] Urea Nitrogen 73.8(H) 8.0 - 23.0 mg/dL 11/26/2022 6:56 AM CDT [facility] Creatinine 4.39(H) 0.51 - 0.95 mg/dL 11/26/2022 6:56 AM CDT [facility] GFR Estimate 10(L) >60 mL/min/1. 73m2 11/26/2022 6:56 AM CDT [facility] Calcium 8.8 8.8 - 10.2 mg/dL 11/26/2022 6:56 AM CDT [facility] Glucose 110(H) 70 - 99 mg/dL 11/26/2022 6:56 AM CDT [facility] Blood STRUCTURE OF RIGHT HAND / Unknown Venipuncture / Unknown 11/26/2022 6:19 AM CDT 11/26/2022 6:24 AM CDT Saloni Finn MD LAB - BLOOD ORDERABL ES Performing Organization Address [facility]/ZIP Co de Phone Number [facility] [address] [place] [address], [facility] [phone] * (ABNORMAL) Glucose by meter (11/26/2022 2:45 AM CDT) GLUCOSE BY METER POCT 210(H) 70 - 99 mg/dL 11/26/2022 2:51 AM CDT [facility] POCT RESULTS Blood, Capillary BLOOD SPECIMEN / Unknown 11/26/2022 2:45 AM CDT 11/26/2022 2:51 AM CDT Saloni LU - RONNY POCT Performing Organization Address [facility]/ZIP Co de Phone Number [facility] POCT RESULTS [address] [place] [address] * (ABNORMAL) Glucose by meter (11/25/2022 8:49 PM CDT) GLUCOSE BY METER POCT 231(H) 70 - 99 mg/dL 11/25/2022 8:56 PM CDT [facility] POCT RESULTS Blood, Capillary BLOOD SPECIMEN / Unknown 11/25/2022 8:49 PM CDT 11/25/2022 8:56 PM CDT Saloni LU - RONNY POCT Performing Organization Address City/[facility]/ZIP Co de Phone Number [facility] POCT RESULTS [address] [place] [address] * (ABNORMAL) Glucose by meter (11/25/2022 6:16 PM CDT) GLUCOSE BY METER POCT 169(H) 70 - 99 mg/dL 11/25/2022 6:23 PM CDT [facility] POCT RESULTS Blood, Capillary BLOOD SPECIMEN / Unknown 11/25/2022 6:16 PM CDT 11/25/2022 6:23 PM CDT Saloni Finn MD LAB - [facility] POCT Performing Organization Address [facility] Co de Phone Number [facility] POCT RESULTS [address] [place] [address] * Anaerobic Bacterial Culture Routine (11/25/2022 6:15 PM CDT) Culture No anaerobic organisms isolated JENNIFER 12/03/2022 8:06 AM CDT [facility] Peritoneal Fluid DRAIN / Unknown Non-blood Collection / Unknown 11/25/2022 6:15 PM CDT 11/25/2022 6:35 PM CDT Lela Phelps APRN, CNP LAB - MICRO GENERA L ORDERABLES Performing Organization Address [facility] Co de Phone Number [facility] Inf. Diseases Diag. Lab [address] [facility] [place] [address], [facility] [phone] * Peritoneal Fluid Aerobic Bacterial Culture Routine (11/25/2022 6:15 PM CDT) Culture No Growth JENNIFER 11/30/2022 7:14 AM CDT [facility] Peritoneal Fluid DRAIN / Unknown Non-blood Collection / Unknown 11/25/2022 6:15 PM CDT 11/25/2022 6:35 PM CDT Lela Phelps APRN [employer] LAB - MICRO GENERA L ORDERABLES [facility] Inf. Diseases Diag. Lab [address] [facility] [place] [address], [facility] [phone] * (ABNORMAL) Glucose by meter (11/25/2022 5:42 PM CDT) GLUCOSE BY METER POCT 69(L) 70 - 99 mg/dL 11/25/2022 5:49 PM CDT [facility] POCT RESULTS Blood, Capillary BLOOD SPECIMEN / Unknown 11/25/2022 5:42 PM CDT 11/25/2022 5:49 PM CDT Saloni JEFFERSON POCT [facility] POCT RESULTS [address] [place] [address] * (ABNORMAL) Glucose by meter (11/25/2022 12:45 PM CDT) GLUCOSE BY METER POCT 106(H) 70 - 99 mg/dL 11/25/2022 12:52 PM CDT [facility] POCT RESULTS Blood, Capillary BLOOD SPECIMEN / Unknown 11/25/2022 12:45 PM CDT 11/25/2022 12:52 PM CDT Saloni JEFFERSON POCT [facility] POCT RESULTS [address] [place] [address] * (ABNORMAL) Glucose by meter (11/25/2022 8:18 AM CDT) GLUCOSE BY METER POCT 115(H) 70 - 99 mg/dL 11/25/2022 12:59 PM CDT [facility] POCT RESULTS Blood, Capillary BLOOD SPECIMEN / Unknown 11/25/2022 8:18 AM CDT 11/25/2022 12:59 PM CDT Saloni JEFFERSON POCT Performing Organization Address City/[facility]/ZIP Co de Phone Number [facility] POCT RESULTS [address] [place] [address] * (ABNORMAL) Glucose by meter (11/25/2022 12:54 AM CDT) GLUCOSE BY METER POCT 326(H) 70 - 99 mg/dL 11/25/2022 1:01 AM CDT [facility] POCT RESULTS Blood, Capillary BLOOD SPECIMEN / Unknown 11/25/2022 12:54 AM CDT 11/25/2022 1:01 AM CDT Saloni JEFFERSON POCT Performing Organization Address [facility] Co de Phone Number [facility] POCT RESULTS [address] [place] [address] * XR Chest Port 1 View (11/25/2022 12:52 AM CDT) Anatomical Region Laterality Modality Chest Computed Radiogr aphy 11/25/2022 12:5 2 AM CDT Impressions 11/25/2022 1:03 AM CDT IMPRESSION: Minor linear atelectasis left base. Lungs are otherwise clear. No adenopathy or effusion. Normal cardiac size and pulmonary vascularity. Atherosclerotic thoracic aorta. Degenerative changes both shoulders and the spine. A few gas-filled loops of small bowel in the right upper abdomen. No free gas underneath the hemidiaphragms. No prior study available for comparison. Current study will serve as a baseline for future follow-up. Narrative 11/25/2022 1:03 AM CDT EXAM: XR CHEST PORT 1 VIEW LOCATION: [facility] DATE: 11/25/2022 INDICATION: Shortness of breath. COMPARISON: None. Procedure Note Bib Mock MD - 11/25/2022 EXAM: XR CHEST PORT 1 VIEW LOCATION: [facility] DATE: 11/25/2022 INDICATION: Shortness of breath. COMPARISON: None. IMPRESSION: Minor linear atelectasis left base. Lungs are otherwise clear.No adenopathy or effusion. Normal cardiac size and pulmonary vascularity.Atherosclerotic thoracic aorta. Degenerative changes both shoulders andthe spine. A few gas- filled loops of small bowel in the right upper abdomen. No free gas underneath thehemidiaphragms. No prior study available for comparison. Current studywill serve as a baseline for future follow-up. Lissy Mc MD IMG DIAGNOSTIC IMAG ING ORDERABLES * Extra Red Top Tube (11/24/2022 10:09 PM CDT) Pathologist [facility] Hold Specimen JI 11/24/2022 11:31 PM CDT [facility] Blood BLOOD SPECIMEN / Unknown Venipuncture / Unknown 11/24/2022 10:09 PM CDT 11/24/2022 10:22 PM CDT Lissy Mc MD LAB - BLOOD ORDERAB LES Performing Organization Address City/State/[facility] Co de Phone Number [facility] [address] [phone] * (ABNORMAL) CBC with platelets and differential (11/24/2022 10:09 PM CDT) [facility] WBC Count 6.9 4.0 - 11.0 10e3/uL 11/24/2022 10:28 PM CDT [facility] RBC Count 4.16 3.80 - 5.20 10e6/uL 11/24/2022 10:28 PM CDT [facility] Hemoglobin 12.2 11.7 - 15.7 g/dL 11/24/2022 10:28 PM CDT [facility] Hematocrit 37.5 35.0 - 47.0 % 11/24/2022 10:28 PM CDT [facility] MCV 90 78 - 100 fL 11/24/2022 10:28 PM CDT [facility] MCH 29.3 26.5 - 33.0 pg 11/24/2022 10:28 PM CDT [facility] MCHC 32.5 31.5 - 36.5 g/dL 11/24/2022 10:28 PM CDT [facility] RDW 14.5 10.0 - 15.0 % 11/24/2022 10:28 PM CDT [facility] Platelet Count 271 150 - 450 10e3/uL 11/24/2022 10:28 PM CDT [facility] % Neutrophils 91 % 11/24/2022 10:28 PM CDT [facility] % Lymphocytes 6 % 11/24/2022 10:28 PM CDT [facility] % Monocytes 2 % 11/24/2022 10:28 PM CDT [facility] Mids % (Monos, Eos, Basos) JENNIFER 11/24/2022 10:28 PM CDT [facility] % Eosinophils 0 % 11/24/2022 10:28 PM CDT [facility] % Basophils 0 % 11/24/2022 10:28 PM CDT [facility] % Immature Granulocytes 1 % 11/24/2022 10:28 PM CDT [facility] NRBCs per 100 WBC 0 <1 /100 023 10:28 PM CDT [facility] Absolute Neutrophils 6.2 1.6 - 8.3 10e3/uL 11/24/2022 10:28 PM CDT [facility] Absolute Lymphocytes 0.4(L) 0.8 - 5.3 10e3/uL 11/24/2022 10:28 PM CDT [facility] Absolute Monocytes 0.1 0.0 - 1.3 10e3/uL 11/24/2022 10:28 PM CDT [facility] Mids Abs (Monos, Eos, Basos) JENNIFER 11/24/2022 10:28 PM CDT [facility] Absolute Eosinophils 0.0 0.0 - 0.7 10e3/uL 11/24/2022 10:28 PM CDT [facility] Absolute Basophils 0.0 0.0 - 0.2 10e3/uL 11/24/2022 10:28 PM CDT [facility] Absolute Immature Granulocytes 0.1 <=0.4 10e3/uL 11/24/2022 10:28 PM CDT [facility] Absolute NRBCs 0.0 10e3/uL 11/24/2022 10:28 PM CDT [facility] Blood BLOOD SPECIMEN / Unknown Venipuncture / Unknown 11/24/2022 10:09 PM CDT 11/24/2022 10:22 PM CDT Lissy Mc MD LAB - BLOOD ORDERAB LES Performing Organization Address [facility] Co de Phone Number [facility] [address] [place] [address], [facility] [phone] * (ABNORMAL) Phosphorus (11/24/2022 10:09 PM CDT) Phosphorus 5.4(H) 2.5 - 4.5 mg/dL 11/24/2022 10:40 PM CDT [facility] Blood BLOOD SPECIMEN / Unknown Venipuncture / Unknown 11/24/2022 10:09 PM CDT 11/24/2022 10:22 PM CDT Lissy Mc MD LAB - BLOOD ORDERAB LES Performing Organization Address [facility] Co de Phone Number [facility] [address] [place] [address], [facility] [phone] * Magnesium (11/24/2022 10:09 PM CDT) Magnesium 2.3 1.7 - 2.3 mg/dL 11/24/2022 10:40 PM CDT [facility] Blood BLOOD SPECIMEN / Unknown Venipuncture / Unknown 11/24/2022 10:09 PM CDT 11/24/2022 10:22 PM CDT Lissy Mc MD LAB - BLOOD ORDERAB LES Performing Organization Address [facility] Co de Phone Number [facility] [address] [place] [address], [facility] [phone] * (ABNORMAL) Comprehensive metabolic panel (11/24/2022 10:09 PM CDT) Sodium 128(L) 135 - 145 mmol/L 11/24/2022 10:40 PM CDT [facility] Comment:Reference intervals for this test were updated on 11/06/2022 to more accurately reflect our healthy population. There may be differences in the flagging of prior results with similar values performed with this method. Interpretation of those prior results can be made in the context of the updated reference intervals. Potassium 5.2 3.4 - 5.3 mmol/L 11/24/2022 10:40 PM [facility] Carbon Dioxide (CO2) 22 22 - 29 mmol/L 11/24/2022 10:40 PM [facility] Anion Gap 15 7 - 15 mmol/L 11/24/2022 10:40 PM [facility] Urea Nitrogen 78.6(H) 8.0 - 23.0 mg/dL 11/24/2022 10:40 PM [facility] Creatinine 4.73(H) 0.51 - 0.95 mg/dL 11/24/2022 10:40 PM [facility] GFR Estimate 9(L) >60 mL/min/1. 73m2 11/24/2022 10:40 PM [facility] Calcium 9.3 8.8 - 10.2 mg/dL 11/24/2022 10:40 PM [facility] Chloride 91(L) 98 - 107 mmol/L 11/24/2022 10:40 PM [facility] Glucose 301(H) 70 - 99 mg/dL 11/24/2022 10:40 PM [facility] Alkaline Phosphatase 105(H) 35 - 104 U/L 11/24/2022 10:40 PM [facility] AST 21 0 - 45 U/L 11/24/2022 10:40 PM [facility] Comment:Reference intervals for this test were updated on 07/23/2022 to more accurately reflect our healthy population. There may be differences in the flagging of prior results with similar values performed with this method. Interpretation of those prior results can be made in the context of the updated reference intervals. ALT 15 0 - 50 U/L 11/24/2022 10:40 PM [facility] Comment:Reference intervals for this test were updated on 07/23/2022 to more accurately reflect our healthy population. There may be differences in the flagging of prior results with similar values performed with this method. Interpretation of those prior results can be made in the context of the updated reference intervals. Protein Total 7.1 6.4 - 8.3 g/dL 11/24/2022 10:40 PM CDT [facility] Albumin 3.2(L) 3.5 - 5.2 g/dL 11/24/2022 10:40 PM CDT [facility] Bilirubin Total 0.2 <=1.2 mg/dL 11/24/2022 10:40 PM CDT [facility] Blood BLOOD SPECIMEN / Unknown Venipuncture / Unknown 11/24/2022 10:09 PM CDT 11/24/2022 10:22 PM CDT Lissy Mc MD LAB - BLOOD ORDERAB LES [facility] [address] [phone] documented in this encounter Visit Diagnoses Diagnosis COVID- Primary documented in this encounter Admitting Diagnoses Diagnosis COVID documented in this encounter Administered Medications Inactive Administered Medications - up to 3 most recent administrations Medication Order MAR Action Action Date Dose Rate Site acetaminophen (TYLENOL) Suppository 650 mg 650 mg (15.5 mg/kg), Rectal, EVERY 4 HOURS PRN, mild pain, Starting on 11/25/22 at 1202, Maximum acetaminophen dose from all sources = 75 mg/kg/day not to exceed 4 grams/day. acetaminophen (TYLENOL) tablet 650 mg 650 mg (15.5 mg/kg), Oral, EVERY 4 HOURS PRN, mild pain, Starting on 11/25/22 at 1202, Maximum acetaminophen dose from all sources = 75 mg/kg/day not to exceed 4 grams/day. $Given 11/25/2022 9:32 PM CDT 650 mg $Given 11/25/2022 1:07 PM CDT 650 mg albuterol (PROVENTIL) neb solution 2.5 mg 2.5 mg, Nebulization, EVERY 4 HOURS PRN, shortness of breath, Starting on 11/25/22 at 1518 $Given 11/25/2022 9:51 PM CDT 2.5 mg amLODIPine (NORVASC) tablet 10 mg 10 mg (0.238 mg/kg), Oral, 2 TIMES DAILY, First dose on 11/25/22 at 0930 $Given 11/26/2022 9:36 AM CDT 10 mg $Given 11/25/2022 9:33 PM CDT 10 mg $Given 11/25/2022 10:18 AM CDT 10 mg aspirin EC tablet 81 mg 81 mg (1.93 mg/kg), Oral, DAILY, First dose on 11/25/22 at 0930, DO NOT CRUSH. $Given 11/26/2022 9:36 AM CDT 81 mg $Given 11/25/2022 9:42 AM CDT 81 mg calcium acetate (PHOSLO) capsule 667 mg 667 mg (15.9 mg/kg), Oral, 3 TIMES DAILY WITH MEALS, First dose on 11/25/22 at 0930, Best if given with meals. $Given 11/26/2022 1:40 PM CDT 667 mg $Given 11/26/2022 9:36 AM CDT 667 mg $Given 11/25/2022 6:41 PM CDT 667 mg carboxymethylcellulose PF (REFRESH PLUS) 0.5 % ophthalmic solution 1 drop 1 drop, Left Eye, 4 TIMES DAILY, First dose on 11/25/22 at 0930 $Given 11/26/2022 1:40 PM CDT 1 drop $Given 11/26/2022 9:36 AM CDT 1 drop $Given 11/25/2022 9:33 PM CDT 1 drop cetirizine (zyrTEC) tablet 10 mg 10 mg (0.238 mg/kg), Oral, DAILY, First dose on 11/25/22 at 0930 $Given 11/26/2022 9:37 AM CDT 10 mg $Given 11/25/2022 9:39 AM CDT 10 mg cloNIDine (CATAPRES) tablet 0.2 mg 0.2 mg, Oral, 2 TIMES DAILY, First dose on 11/25/22 at 0930 $Given 11/25/2022 9:44 AM CDT 0.2 mg cloNIDine (CATAPRES) tablet 0.2 mg 0.2 mg, Oral, DAILY, First dose (after last modification) on 11/26/22 at 0900 $Given 11/26/2022 9:36 AM CD T 0.2 mg cloNIDine (CATAPRES) tablet 0.3 mg 0.3 mg (0.75116 mg/kg), Oral, DAILY, First dose on 11/25/22 at 2100 $Given 11/25/2022 9:34 PM CDT 0.3 mg dextrose 50 % injection 25-50 mL 25-50 mL, Intravenous, EVERY 15 MIN PRN, low blood sugar, Administer over 1-5 Minutes, Starting on 11/24/22 at 2339, Use if have IV access, BG less [...] glucose level is above 100 mg/dL. Vesicant. $Given 11/25/2022 5:50 PM CDT 25 mLs dianeal PD LOW calcium-2.5% dex (calcium 2.5 mEq/L) 2,000 mL PERITONEAL DIALYSATE 2,000 mL, Number of Bags Needed =: 2, PERITONEAL DIALYSIS, Starting on 11/25/22 at 1200, Until 11/26/22 at 1859, IF ADDITIVES ARE ORDERED, unit RN will take the Peritoneal Dialysis solution bag to the site pharmacy for addition of medications. Do not refrigerate. $New Bag 11/25/2022 6:24 PM CDT erythromycin (ROMYCIN) ophthalmic ointment Left Eye, 4 TIMES DAILY, First dose on 11/25/22 at 0930 $Given 11/26/2022 1:40 PM CDT 1 g $Given 11/26/2022 9:36 AM CDT 1 g $Given 11/25/2022 9:35 PM CDT 1 g furosemide (LASIX) tablet 40 mg 40 mg (0.952 mg/kg), Oral, DAILY, First dose on 11/25/22 at 0930 $Given 11/26/2022 9:37 AM CDT 40 mg $Given 11/25/2022 9:42 AM CDT 40 mg gentamicin (GARAMYCIN) 0.1 % cream Topical, DAILY PRN, promotion of catheter exit site healing., Starting on 11/25/22 at 1147, Apply cream daily to the peritoneal catheter exit site with dressing change. Pharmacy will send tube with first order or upon request. Peritoneal Dialysis glucagon injection 1 mg 1 mg (0.0238 mg/kg), Subcutaneous, EVERY 15 MIN PRN, low blood sugar, May repeat x 1 only, Starting on 11/24/22 at 2339, May give SQ or IM. ONLY use glucagon IF patient has NO IV access AND is UNABLE to swallow AND blood glucose is LESS than or EQUAL to 50 mg/dL. glucose gel 15-30 g 15-30 g (0.357-0.714 g/kg), Oral, EVERY 15 MIN PRN, low blood sugar, Starting on 11/24/22 at 2339, Give first dose for initial blood glucose [...] heparin ANTICOAGULANT injection 5,000 Units 5,000 Units (119 Units/kg), Subcutaneous, EVERY 12 HOURS, First dose on 11/24/22 at 2200, High concentration HEParin. Not for line flush or cath care. High concentration heparin. Not for line flush or cath care. $Given 11/26/2022 9:36 AM CDT 5,000 Units $Given 11/25/2022 9:35 PM CDT 5,000 Units $Given 11/25/2022 10:18 AM CDT 5,000 Units hydrOXYzine (ATARAX) tablet 25 mg 25 mg (0.595 mg/kg), Oral, ONCE, On 11/26/22 at 0230, For 1 dose $Given 11/26/2022 2:33 AM CDT 25 mg insulin aspart (NovoLOG) injection (RAPID ACTING) 1-3 Units (0.0238-0.0714 Units/kg), Subcutaneous, 3 TIMES DAILY BEFORE MEALS, First dose on 11/25/22 at 0730, Correction Scale - LOW INSULIN RESISTANCE DOSING Do Not give Correction Insulin if Pre-Meal BG less than 140. For Pre-Meal BG 140 - 239 give 1 unit. For Pre-Meal BG 240 - 339 give 2 units. For Pre-Meal BG greater than or equal to 340 give 3 units. To be given with prandial insulin, and based on pre-meal blood glucose. Notify provider if glucose greater than or equal to 350 mg/dL after administration of correction dose. If given at mealtime, administer within 30 minutes of start of meal. insulin aspart (NovoLOG) injection (RAPID ACTING) 1-3 Units (0.0238-0.0714 Units/kg), Subcutaneous, AT BEDTIME, First dose on 11/25/22 at 0000, LOW INSULIN RESISTANCE DOSING Do Not give Bedtime Correction Insulin if BG less than 200. For BG 200 - 299 give 1 unit. For BG 300 - 399 give 2 units For BG greater than or equal 400 give 3 units. Notify provider if glucose greater than or equal to 350 mg/dL after administration of correction dose. If given at mealtime, administer within 30 minutes of start of meal. $Given 11/25/2022 9:31 PM CDT 1 Units $Given 11/25/2022 1:02 AM CDT 2 Units labetalol (NORMODYNE) tablet 300 mg 300 mg (7.14 mg/kg), Oral, 3 TIMES DAILY, First dose on 11/25/22 at 0930 $Given 11/26/2022 1:40 PM CDT 300 mg $Given 11/26/2022 9:37 AM CDT 300 mg $Given 11/25/2022 9:52 PM CDT 300 mg melatonin tablet 1 mg 1 mg (0.0238 mg/kg), Oral, AT BEDTIME PRN, sleep, Starting on 11/24/22 at 2133, Do not give unless at least 6 hours of uninterrupted sleep is expected. $Given 11/25/2022 10:14 PM CDT 1 mg naloxone (NARCAN) injection 0.2 mg 0.2 mg (0.60781 mg/kg), Intravenous, EVERY 2 MIN PRN, opioid reversal, Starting on 11/24/22 at 2202, Administer intravenous route when available and notify [...] naloxone (NARCAN) injection 0.2 mg 0.2 mg (0.55139 mg/kg), Intramuscular, EVERY 2 MIN PRN, opioid reversal, Starting on 11/24/22 at 2202, Administer intramuscular if an intravenous route is [...] naloxone (NARCAN) injection 0.4 mg 0.4 mg (0.10322 mg/kg), Intravenous, EVERY 2 MIN PRN, opioid reversal, Starting on 11/24/22 at 2202, Administer intravenous route when available and notify [...] naloxone (NARCAN) injection 0.4 mg 0.4 mg (0.58655 mg/kg), Intramuscular, EVERY 2 MIN PRN, opioid reversal, Starting on 11/24/22 at 2202, Administer intramuscular if an intravenous route is [...] have not improved after 4 naloxone doses. vhgmbjsi-hzzarjzdc-zfmQAPJZeithf (MAXITROL) ophthalmic ointment Left Eye, EVERY 6 HOURS SCHEDULED, First dose on 11/25/22 at 1230 $Given 11/26/2022 1:40 PM CDT $Given 11/26/2022 7:10 AM CDT $Given 11/26/2022 12:27 AM CDT nicotine (NICODERM CQ) 7 MG/24HR 24 hr patch 1 patch 1 patch, Transdermal, DAILY, Administer over 24 Hours, First dose on 11/25/22 at 0930, Reminder: Remove previous patch before applying new patch. $Patch/Med Applied 11/26/2022 9:38 AM CDT 1 patch Right Arm $Patch/Med Applied 11/25/2022 10:15 AM CDT 1 patch Left Arm nicotine Patch in Place First dose on 11/25/22 at 1400 ondansetron (ZOFRAN ODT) ODT tab 4 mg 4 mg (0.0952 mg/kg), Oral, EVERY 6 HOURS PRN, nausea, vomiting, Starting on 11/24/22 at 2133, This is Step 1 of nausea and [...] ondansetron (ZOFRAN) injection 4 mg 4 mg (0.0952 mg/kg), Intravenous, EVERY 6 HOURS PRN, nausea, vomiting, Administer over 2-5 Minutes, Starting on 11/24/22 at 2133, Give IF patient unable to tolerate oral medication. This is Step 1 of nausea and vomiting management. If nausea not resolved in 15 minutes, go to Step 2 prochlorperazine (COMPAZINE). Irritant. $Given 11/25/2022 5:37 PM CDT 4 mg $Given 11/25/2022 9:39 AM CDT 4 mg oxyCODONE (ROXICODONE) tablet 10 mg 10 mg (0.238 mg/kg), Oral, AT BEDTIME, First dose (after last modification) on 11/26/22 at 2100 oxyCODONE (ROXICODONE) tablet 5 mg 5 mg (0.119 mg/kg), Oral, AT BEDTIME, First dose on 11/24/22 at 2200 $Given 11/25/2022 9:32 PM CDT 5 mg $Given 11/24/2022 10:46 PM CDT 5 mg oxyCODONE (ROXICODONE) tablet 5 mg 5 mg (0.119 mg/kg), Oral, EVERY 4 HOURS PRN, severe pain, Starting on 11/26/22 at 0033, For 2 doses $Given 11/26/2022 12:44 AM CDT 5 mg prochlorperazine (COMPAZINE) injection 5 mg 5 mg (0.119 mg/kg), Intravenous, EVERY 6 HOURS PRN, nausea, vomiting, Administer over 1-2 Minutes, Starting on 11/24/22 at 2134, Give IF patient unable to tolerate oral medication. This is Step 2 of nausea and vomiting management. Give if nausea not resolved 15 minutes after giving ondansetron (ZOFRAN). If nausea not resolved in 15-30 minutes, Notify provider. prochlorperazine (COMPAZINE) suppository 12.5 mg 12.5 mg (0.298 mg/kg), Rectal, EVERY 12 HOURS PRN, nausea, vomiting, Starting on 11/24/22 at 2134, This is Step 2 of nausea and vomiting management. Give if nausea not resolved 15 minutes after giving ondansetron (ZOFRAN). If nausea not resolved in 15-30 minutes, Notify provider. prochlorperazine (COMPAZINE) tablet 5 mg 5 mg (0.119 mg/kg), Oral, EVERY 6 HOURS PRN, vomiting, Starting on 11/24/22 at 2134, This is Step 2 of nausea and vomiting management. Give if nausea not resolved 15 minutes after giving ondansetron (ZOFRAN). If nausea not resolved in 15-30 minutes, Notify provider. remdesivir 100 mg in sodium chloride 0.9 % 250 mL intermittent infusion 100 mg (2.38 mg/kg), at 125-500 mL/hr, Intravenous, EVERY 24 HOURS, First dose on 11/25/22 at 2100, Do not co-administer with other medications in the same IV line. Infuse over 30 minutes; can be extended to 60-120 minutes if needed. $New Bag 11/25/2022 9:36 PM CDT 100 mg 250 m L/hr remdesivir 200 mg in sodium chloride 0.9 % 250 mL intermittent infusion 200 mg (4.76 mg/kg), at 125-500 mL/hr, Intravenous, ONCE, On 11/24/22 at 2330, Do not co-administer with other medications in the same IV line. Infuse over 30 minutes; can be extended to 60-120 minutes if needed., Does the patient have a COVID PCR + within 14 days? Yes, Patient must meet 1 of the 4 criteria below: (select all that apply): Is not requiring supplemental O2 but is high risk, Patient's AST and ALT are LESS than 5x ULN? Yes $New Bag 11/25/2022 12:28 AM CDT 200 mg 500 mL/hr repaglinide (PRANDIN) tablet 1 mg 1 mg (0.0238 mg/kg), Oral, 3 TIMES DAILY BEFORE MEALS, First dose on 11/25/22 at 1130, Take before or with meals., , On hold since [place] 11/25/2022 at 1519 until manually unheld $Given 11/25/2022 1:54 PM CDT 1 mg sodium chloride (PF) 0.9% PF flush 3 mL 3 mL, Intracatheter, EVERY 8 HOURS, First dose on 11/24/22 at 2200, And Q1H PRN, to lock peripheral IV dormant line. $Given 11/26/2022 7:10 AM CDT 3 mLs $Given 11/25/2022 9:36 PM CDT 3 mLs $Given 11/25/2022 5:52 AM CDT 3 mLs sodium chloride 0.9% BOLUS 50 mL Intravenous, 50 mL, ONCE, at 100-200 mL/hr, Administer over 15-30 Minutes, On 11/25/22 at 0000, For 1 dose, Flush line with up to 50 mL 0.9% NS AFTER infusion to ensure maximum medication administration. $New Bag 11/25/2022 1:00 AM CDT 50 mLs 100 mL/hr sodium chloride 0.9% BOLUS 50 mL Intravenous, 50 mL, EVERY 24 HOURS, at 100-200 mL/hr, Administer over 15-30 Minutes, First dose on 11/25/22 at 2130, For 2 doses, Flush line with up to 50 mL 0.9% NS AFTER infusion to ensure maximum medication administration. $New Bag 11/25/2022 9:50 PM CDT 50 mLs 100 mL/hr documented in this encounter Active and Recently Administered Medications Times are shown in CDT. Scheduled Medication Order 11/24/2022 11/25/2022 11/26/2022 amLODIPine (NORVASC) tablet 10 mg 10 mg (0.238 mg/kg), Oral, 2 TIMES DAILY, First dose on 11/25/22 at 0930 1018 ($Given - Provider: Lluvia Thacker RN)2133 ($Given - Provider: Juan Ojeda, SUSANA) 0936 ($Given - Provider: Lucia Brown, RN) aspirin EC tablet 81 mg 81 mg (1.93 mg/kg), Oral, DAILY, First dose on 11/25/22 at 0930, DO NOT CRUSH. 0942 ($Given - Provider: Lluvia Thacker RN) 0936 ($Given - Provider: Lucia Brown, SUSANA) calcium acetate (PHOSLO) capsule 667 mg 667 mg (15.9 mg/kg), Oral, 3 TIMES DAILY WITH MEALS, First dose on 11/25/22 at 0930, Best if given with meals. 1032 ($Given - Provider: Lluvia Thacker RN)1349 ($Given - Provider: Lluvia Thacker RN)1841 ($Given - Provider: Lluvia Thacker RN) 0936 ($Given - Provider: Lucia Brown, SUSANA)1340 ($Given - Provider: Lucia Brown, SUSANA)1700 (Canceled Entry - Provider: Orders Generic Provider - Comment: Automatically canceled at discontinue of medication order) carboxymethylcellulose PF (REFRESH PLUS) 0.5 % ophthalmic solution 1 drop 1 drop, Left Eye, 4 TIMES DAILY, First dose on 11/25/22 at 0930 1021 ($Given - Provider: Lluvia Thacker RN)1348 (Not Given - Provider: Lluvia Thacker RN - Reason: Patient/family refused)1607 (Not Given - Provider: Lluvia Thacker RN - Reason: Patient/family refused - Comment: Uses at night when her eyes are dry)2133 ($Given - Provider: Juan Ojeda RN) 0936 ($Given - Provider: Lucia Brown RN)1340 ($Given - Provider: Lucia Brown, SUSANA)1700 (Canceled Entry - Provider: Orders Generic Provider - Comment: Automatically canceled at discontinue of medication order) cetirizine (zyrTEC) tablet 10 mg 10 mg (0.238 mg/kg), Oral, DAILY, First dose on 11/25/22 at 0930 0939 ($Given - Provider: Lluvia Thacker RN) 0937 ($Given - Provider: Lucia Brown RN) cloNIDine (CATAPRES) tablet 0.2 mg (CANCELED) 0.2 mg, Oral, 2 TIMES DAILY, First dose on 11/25/22 at 0930 0944 ($Given - Provider: Lluvia Thacker RN) cloNIDine (CATAPRES) tablet 0.2 mg 0.2 mg, Oral, DAILY, First dose (after last modification) on Sat11/26/22 at 0900 0936 ($Given - Provider: Lucia Brown RN) cloNIDine (CATAPRES) tablet 0.3 mg 0.3 mg (0.20355 mg/kg), Oral, DAILY, First dose on 11/25/22 at 2100 2134 ($Given - Provider: Juan Ojeda RN) erythromycin (ROMYCIN) ophthalmic ointment Left Eye, 4 TIMES DAILY, First dose on 11/25/22 at 0930 1018 ($Given - Provider: Lluvia Thacker RN)1600 ($Given - Provider: Lluvia Thacker RN - Comment: pt wanted to wait until now)1655 (Not Given - Provider: Lluvia Thacker RN - Reason: Other - Comment: recently applied)2135 ($Given - Provider: Juan Ojeda RN) 0936 ($Given - Provider: Lucia Brown RN)1340 ($Given - Provider: Lucia Brown RN)1700 (Canceled Entry - Provider: Orders Generic Provider - Comment: Automatically canceled at discontinue of medication order) furosemide (LASIX) tablet 40 mg 40 mg (0.952 mg/kg), Oral, DAILY, First dose on 11/25/22 at 0930 0942 ($Given - Provider: Lluvia Thacker RN) 0937 ($Given - Provider: Lucia Brown, SUSANA) heparin ANTICOAGULANT injection 5,000 Units 5,000 Units (119 Units/kg), Subcutaneous, EVERY 12 HOURS, First dose on 11/24/22 at 2200, High concentration HEParin. Not for line flush or cath care. High concentration heparin. Not for line flush or cath care. 2246 ($Given - Provider: Juan Ojeda RN) 1018 ($Given - Provider: Lluvia Thacker RN)2135 ($Given - Provider: Juan Ojeda RN) 0936 ($Given - Provider: Lucia Brown, SUSANA) hydrOXYzine (ATARAX) tablet 25 mg (COMPLETED) 25 mg (0.595 mg/kg), Oral, ONCE, On 11/26/22 at 0230, For 1 dose 0233 ($Given - Provider: Nic Ernst RN) insulin aspart (NovoLOG) injection (RAPID ACTING) 1-3 Units (0.0238-0.0714 Units/kg), Subcutaneous, 3 TIMES DAILY BEFORE MEALS, First dose on 11/25/22 at 0730, Correction Scale - LOW INSULIN RESISTANCE DOSING Do Not give Correction Insulin if Pre-Meal BG less than 140. For Pre-Meal BG 140 - 239 give 1 unit. For Pre-Meal BG 240 - 339 give 2 units. For Pre-Meal BG greater than or equal to 340 give 3 units. To be given with prandial insulin, and based on pre-meal blood glucose. Notify provider if glucose greater than or equal to 350 mg/dL after administration of correction dose. If given at mealtime, administer within 30 minutes of start of meal. 0900 (Not Given - Provider: Lluvia Thacker RN - Reason: Order parameters not met)1312 (Not Given - Provider: Lluvia Thacker RN - Reason: Order parameters not met)1825 (Not Given - Provider: Lluvia Thacker RN - Reason: Order parameters not met) 0912 (Not Given - Provider: Lucia Brown RN - Reason: Order parameters not met - Comment: Bg 70)1327 (Not Given - Provider: Lucia Brown RN - Reason: Order parameters not met)1630 (Canceled Entry - Provider: Orders Generic Provider - Comment: Automatically canceled at discontinue of medication order) insulin aspart (NovoLOG) injection (RAPID ACTING) 1-3 Units (0.0238-0.0714 Units/kg), Subcutaneous, AT BEDTIME, First dose on 11/25/22 at 0000, LOW INSULIN RESISTANCE DOSING Do Not give Bedtime Correction Insulin if BG less than 200. For BG 200 - 299 give 1 unit. For BG 300 - 399 give 2 units For BG greater than or equal 400 give 3 units. Notify provider if glucose greater than or equal to 350 mg/dL after administration of correction dose. If given at mealtime, administer within 30 minutes of start of meal. 0102 ($Given - Provider: Nic Ernst RN)2131 ($Given - Provider: Juan Ojeda RN - Comment: 231) labetalol (NORMODYNE) tablet 300 mg 300 mg (7.14 mg/kg), Oral, 3 TIMES DAILY, First dose on 11/25/22 at 0930 1014 ($Given - Provider: Lluvia Thacker RN)1350 ($Given - Provider: Lluvia Thacker RN)2152 ($Given - Provider: Juan Ojeda RN) 0937 ($Given - Provider: Lucia Brown, SUSANA)1340 ($Given - Provider: Lucia Brown, SUSANA) kopxuxjl-pzucuqcbq-xieOL ETHasone (MAXITROL) ophthalmic ointment Left Eye, EVERY 6 HOURS SCHEDULED, First dose on 11/25/22 at 1230 1346 ($Given - Provider: Lluvia Thacker RN)1840 ($Given - Provider: Lluvia Thacker RN) 0027 ($Given - Provider: Nic Ernst RN)0710 ($Given - Provider: Nic Ernst RN)1340 ($Given - Provider: Lucia Brown, SUSANA)1800 (Canceled Entry - Provider: Orders Generic Provider - Comment: Automatically canceled at discontinue of medication order) nicotine (NICODERM CQ) 7 MG/24HR 24 hr patch 1 patch(Linked Group 1) 1 patch, Transdermal, DAILY, Administer over 24 Hours, First dose on 11/25/22 at 0930, Reminder: Remove previous patch before applying new patch. 1015 ($Patch/Med Applied - Provider: Lluvia Thacker RN) 0937 (Patch/Med Removed - Provider: Lucia Brown, SUSANA)0938 ($Patch/Med Applied - Provider: Lucia Brown RN)1650 (Due: Patch/Med Removed - Provider: Gareth Generic Provider - Comment: Time automatically adjusted from order being discontinued) nicotine Patch in Place(Linked Group 1) First dose on 11/25/22 at 1400 1314 (Patch in Place - Provider: Lluvia Thacker RN)2135 (Patch in Place - Provider: Juan Ojeda RN) 0710 (Patch in Place - Provider: Nic Ernst RN)1354 (Patch in Place - Provider: Lucia Brown, SUSANA) oxyCODONE (ROXICODONE) tablet 10 mg 10 mg (0.238 mg/kg), Oral, AT BEDTIME, First dose (after last modification) on 11/26/22 at 2100 oxyCODONE (ROXICODONE) tablet 5 mg (CANCELED) 5 mg (0.119 mg/kg), Oral, AT BEDTIME, First dose on 11/24/22 at 2200 2246 ($Given - Provider: Juan Ojeda RN) 2132 ($Given - Provider: Juan Ojeda RN) remdesivir 100 mg in sodium chloride 0.9 % 250 mL intermittent infusion(Linked Group 2) 100 mg (2.38 mg/kg), at 125-500 mL/hr, Intravenous, EVERY 24 HOURS, First dose on 11/25/22 at 2100, Do not co-administer with other medications in the same IV line. Infuse over 30 minutes; can be extended to 60-120 minutes if needed. 213 ($New Bag - Provider: Juan Ojeda RN) remdesivir 200 mg in sodium chloride 0.9 % 250 mL intermittent infusion (COMPLETED)(Linked Group 3) 200 mg (4.76 mg/kg), at 125-500 mL/hr, Intravenous, ONCE, On 11/24/22 at 2330, Do not co-administer with other medications in the same IV line. Infuse over 30 minutes; can be extended to 60-120 minutes if needed., Does the patient have a COVID PCR + within 14 days? Yes, Patient must meet 1 of the 4 criteria below: (select all that apply): Is not requiring supplemental O2 but is high risk, Patient's AST and ALT are LESS than 5x ULN? Yes 0028 ($New Bag - Provider: Nic Ernst RN) repaglinide (PRANDIN) tablet 1 mg 1 mg (0.0238 mg/kg), Oral, 3 TIMES DAILY BEFORE MEALS, First dose on 11/25/22 at 1130, Take before or with meals., , On hold since 11/25/2022 at 1519 until manually unheld 1354 ($Given - Provider: Lluvia Thacker RN)1519 (Held by provider - Provider: Saloni Finn MD - Reason: Other)1630 (Automatically Held - Provider: Saloni Finn MD) 0730 (Automatically Held - Provider: Saloni Finn MD)1130 (Automatically Held - Provider: Saloni Finn MD)1630 (Automatically Held - Provider: Saloni Finn MD)1859 (Unheld by provider - Provider: Orders Generic Provider) sodium chloride (PF) 0.9% PF flush 3 mL 3 mL, Intracatheter, EVERY 8 HOURS, First dose on 11/24/22 at 2200, And Q1H PRN, to lock peripheral IV dormant line. 0022 ($Given - Provider: Nic Ernst RN)0552 ($Given - Provider: Nic Ernst RN)1352 (Not Given - Provider: Lluvia Thacker RN - Reason: Order parameters not met)2136 ($Given - Provider: Juan Ojeda, SUSANA) 0710 ($Given - Provider: Nic Ernst RN)1354 (Not Given - Provider: Lucia Brown RN - Reason: Loss of IV access) sodium chloride 0.9% BOLUS 50 mL (COMPLETED)(Linked Group 3) Intravenous, 50 mL, ONCE, at 100-200 mL/hr, Administer over 15-30 Minutes, On 11/25/22 at 0000, For 1 dose, Flush line with up to 50 mL 0.9% NS AFTER infusion to ensure maximum medication administration. 0100 ($New Bag - Provider: Nic Ernst RN) sodium chloride 0.9% BOLUS 50 mL(Linked Group 2) Intravenous, 50 mL, EVERY 24 HOURS, at 100-200 mL/hr, Administer over 15-30 Minutes, First dose on 11/25/22 at 2130, For 2 doses, Flush line with up to 50 mL 0.9% NS AFTER infusion to ensure maximum medication administration. 2149 ($New Bag - Provider: Juan Ojeda RN) Continuous Medication Order 11/24/2022 11/25/2022 11/26/2022 dianeal PD LOW calcium-2.5% dex (calcium 2.5 mEq/L) 2,000 mL PERITONEAL DIALYSATE 2,000 mL, Number of Bags Needed =: 2, IF ADDITIVES ARE ORDERED, unit RN will take the Peritoneal Dialysis solution bag to the site pharmacy for addition of medications. Do not refrigerate. 1823 ($New Bag - Provider: Lluvia Thacker RN) PRN Medication Order 11/24/2022 11/25/2022 11/26/2022 acetaminophen (TYLENOL) Suppository 650 mg(Linked Group 4) 650 mg (15.5 mg/kg), Rectal, EVERY 4 HOURS PRN, mild pain, Starting on 11/25/22 at 1202, Maximum acetaminophen dose from all sources = 75 mg/kg/day not to exceed 4 grams/day. 1307 (See Alternative - Provider: Lluvia Thacker RN)2131 (See Alternative - Provider: Juan Ojeda RN) acetaminophen (TYLENOL) tablet 650 mg(Linked Group 4) 650 mg (15.5 mg/kg), Oral, EVERY 4 HOURS PRN, mild pain, Starting on 11/25/22 at 1202, Maximum acetaminophen dose from all sources = 75 mg/kg/day not to exceed 4 grams/day. 1307 ($Given - Provider: Lluvia Thacker RN)2131 ($Given - Provider: Juan Ojeda, SUSANA) albuterol (PROVENTIL) neb solution 2.5 mg 2.5 mg, Nebulization, EVERY 4 HOURS PRN, shortness of breath, Starting on 11/25/22 at 1518 2151 ($Given - Provider: Juan Ojeda, SUSANA) dextrose 50 % injection 25-50 mL(Linked Group 5) 25-50 mL, Intravenous, EVERY 15 MIN PRN, low blood sugar, Administer over 1-5 Minutes, Starting on 11/24/22 at 2339, Use if have IV access, BG less [...] glucose level is above 100 mg/dL. Vesicant. 1750 ($Given - Provider: Lluvia Thacker, RN) gentamicin (GARAMYCIN) 0.1 % cream Topical, DAILY PRN, promotion of catheter exit site healing., Starting on 11/25/22 at 1147, Apply cream daily to the peritoneal catheter exit site with dressing change. Pharmacy will send tube with first order or upon request. Peritoneal Dialysis glucagon injection 1 mg(Linked Group 5) 1 mg (0.0238 mg/kg), Subcutaneous, EVERY 15 MIN PRN, low blood sugar, May repeat x 1 only, Starting on 11/24/22 at 2339, May give SQ or IM. ONLY use glucagon IF patient has NO IV access AND is UNABLE to swallow AND blood glucose is LESS than or EQUAL to 50 mg/dL. 1750 (See Alternative - Provider: Lluvia Thacker, SUSANA) glucose gel 15-30 g(Linked Group 5) 15-30 g (0.357-0.714 g/kg), Oral, EVERY 15 MIN PRN, low blood sugar, Starting on 11/24/22 at 2339, Give first dose for initial blood glucose [...] Document juice on I and O flowsheet. 1750 (See Alternative - Provider: Lluvia Thacker RN) ipratropium - albuterol 0.5 mg/2.5 mg/3 mL (DUONEB) neb solution 3 mL 3 mL, Inhalation, EVERY 6 HOURS PRN, shortness of breath, Starting on 11/25/22 at 0911 lidocaine (LMX4) cream Topical, EVERY 1 HOUR PRN, pain, with VAD insertion or accessing implanted port., Starting on 11/24/22 at 2134, Do NOT give if patient has a history of allergy to any local anesthetic or any adrian product. Apply at least 30 minutes prior to VAD insertion or port access. In divided doses as needed for size of site for VAD insertion with MAX Dose: 2.5 g (?? of 5 g tube). lidocaine 1 % 0.1-1 mL 0.1-1 mL, Other, EVERY 1 HOUR PRN, mild pain with VAD insertion., Starting on 11/24/22 at 2134, Do NOT give if patient has a history of allergy to any local anesthetic or any adrian product. MAX dose 1 mL subcutaneous OR intradermal in divided doses as needed for VAD insertion. melatonin tablet 1 mg 1 mg (0.0238 mg/kg), Oral, AT BEDTIME PRN, sleep, Starting on 11/24/22 at 2133, Do not give unless at least 6 hours of uninterrupted sleep is expected. 2214 ($Given - Provider: Juan Ojeda RN) naloxone (NARCAN) injection 0.2 mg(Linked Group 6) 0.2 mg (0.15744 mg/kg), Intravenous, EVERY 2 MIN PRN, opioid reversal, Starting on 11/24/22 at 2202, Administer intravenous route when available and notify [...] doses. naloxone (NARCAN) injection 0.2 mg(Linked Group 6) 0.2 mg (0.71929 mg/kg), Intramuscular, EVERY 2 MIN PRN, opioid reversal, Starting on 11/24/22 at 2202, Administer intramuscular if an intravenous route is [...] doses. naloxone (NARCAN) injection 0.4 mg(Linked Group 6) 0.4 mg (0.09036 mg/kg), Intravenous, EVERY 2 MIN PRN, opioid reversal, Starting on 11/24/22 at 2202, Administer intravenous route when available and notify [...] doses. naloxone (NARCAN) injection 0.4 mg(Linked Group 6) 0.4 mg (0.14819 mg/kg), Intramuscular, EVERY 2 MIN PRN, opioid reversal, Starting on 11/24/22 at 2202, Administer intramuscular if an intravenous route is [...] (ZOFRAN ODT) ODT tab 4 mg(Linked Group 7) 4 mg (0.0952 mg/kg), Oral, EVERY 6 HOURS PRN, nausea, vomiting, Starting on 11/24/22 at 2133, This is Step 1 of nausea and vomiting management. If nausea not resolved in 15 minutes, go to Step 2 prochlorperazine (COMPAZINE). With dry hands, peel back foil backing and gently remove tablet. Do not push oral disintegrating tablet through foil backing. Administer immediately on tongue and oral disintegrating tablet dissolves in seconds, then swallow with saliva. Liquid not required. 0939 (See Alternative - Provider: Lluvia Thacker RN)1737 (See Alternative - Provider: Lluvia Thacker RN) ondansetron (ZOFRAN) injection 4 mg(Linked Group 7) 4 mg (0.0952 mg/kg), Intravenous, EVERY 6 HOURS PRN, nausea, vomiting, Administer over 2-5 Minutes, Starting on 11/24/22 at 2133, Give IF patient unable to tolerate oral medication. This is Step 1 of nausea and vomiting management. If nausea not resolved in 15 minutes, go to Step 2 prochlorperazine (COMPAZINE). Irritant. 0939 ($Given - Provider: Lluvia Thacker RN)173 ($Given - Provider: Lluvia Thacker RN) oxyCODONE (ROXICODONE) tablet 5 mg 5 mg (0.119 mg/kg), Oral, EVERY 4 HOURS PRN, severe pain, Starting on 11/26/22 at 0033, For 2 doses 0044 ($Given - Provider: Nic Ernst RN) polyethylene glycol (MIRALAX) Packet 17 g 17 g (0.405 g/kg), Oral, DAILY PRN, constipation, Starting on 11/25/22 at 0911, 1 Packet = 17 grams. Mix each gram with at least 1/2 ounce (15 mL) of water - 8 ounces for 17 g dose, 4 ounces for 8.5 g dose, 2 ounces for 4 g dose. Follow with the same volume of water. Hold for loose stools unless being administered as part of a bowel prep regimen or bowel clean out. prochlorperazine (COMPAZINE) injection 5 mg(Linked Group 8) 5 mg (0.119 mg/kg), Intravenous, EVERY 6 HOURS PRN, nausea, vomiting, Administer over 1-2 Minutes, Starting on 11/24/22 at 2134, Give IF patient unable to tolerate oral medication. This is Step 2 of nausea and vomiting management. Give if nausea not resolved 15 minutes after giving ondansetron (ZOFRAN). If nausea not resolved in 15-30 minutes, Notify provider. prochlorperazine (COMPAZINE) suppository 12.5 mg(Linked Group 8) 12.5 mg (0.298 mg/kg), Rectal, EVERY 12 HOURS PRN, nausea, vomiting, Starting on 11/24/22 at 2134, This is Step 2 of nausea and vomiting management. Give if nausea not resolved 15 minutes after giving ondansetron (ZOFRAN). If nausea not resolved in 15-30 minutes, Notify provider. prochlorperazine (COMPAZINE) tablet 5 mg(Linked Group 8) 5 mg (0.119 mg/kg), Oral, EVERY 6 HOURS PRN, vomiting, Starting on 11/24/22 at 2134, This is Step 2 of nausea and vomiting management. Give if nausea not resolved 15 minutes after giving ondansetron (ZOFRAN). If nausea not resolved in 15-30 minutes, Notify provider. sennosides (SENOKOT) tablet 1 tablet 1 tablet, Oral, DAILY PRN, constipation, Starting on 11/25/22 at 0911, Hold for loose stools. sodium chloride (PF) 0.9% PF flush 3 mL 3 mL, Intracatheter, EVERY 1 MIN PRN, line flush, Starting on 11/24/22 at 2134, for peripheral IV flush post IV meds Linked Groups Order Group 1: nicotine (NICODERM CQ) 7 MG/24HR 24 hr patch 1 patchJump to med 1 patch, Transdermal, DAILY, Administer over 24 Hours, First dose on 11/25/22 at 0930, Reminder: Remove previous patch before applying new patch. And nicotine Patch in PlaceJump to med First dose on 11/25/22 at 1400 Group 2: remdesivir 100 mg in sodium chloride 0.9 % 250 mL intermittent infusionJump to med 100 mg (2.38 mg/kg), at 125-500 mL/hr, Intravenous, EVERY 24 HOURS, First dose on 11/25/22 at 2100, Do not co-administer with other medications in the same IV line. Infuse over 30 minutes; can be extended to 60-120 minutes if needed. And sodium chloride 0.9% BOLUS 50 mLJump to med Intravenous, 50 mL, EVERY 24 HOURS, at 100-200 mL/hr, Administer over 15-30 Minutes, First dose on 11/25/22 at 2130, For 2 doses, Flush line with up to 50 mL 0.9% NS AFTER infusion to ensure maximum medication administration. Group 3: remdesivir 200 mg in sodium chloride 0.9 % 250 mL intermittent infusion (COMPLETED)Jump to med 200 mg (4.76 mg/kg), at 125-500 mL/hr, Intravenous, ONCE, On 11/24/22 at 2330, Do not co-administer with other medications in the same IV line. Infuse over 30 minutes; can be extended to 60-120 minutes if needed., Does the patient have a COVID PCR + within 14 days? Yes, Patient must meet 1 of the 4 criteria below: (select all that apply): Is not requiring supplemental O2 but is high risk, Patient's AST and ALT are LESS than 5x ULN? Yes Followed by sodium chloride 0.9% BOLUS 50 mL (COMPLETED)Jump to med Intravenous, 50 mL, ONCE, at 100-200 mL/hr, Administer over 15-30 Minutes, On 11/25/22 at 0000, For 1 dose, Flush line with up to 50 mL 0.9% NS AFTER infusion to ensure maximum medication administration. Group 4: acetaminophen (TYLENOL) tablet 650 mgJump to med 650 mg (15.5 mg/kg), Oral, EVERY 4 HOURS PRN, mild pain, Starting on 11/25/22 at 1202, Maximum acetaminophen dose from all sources = 75 mg/kg/day not to exceed 4 grams/day. Or acetaminophen (TYLENOL) Suppository 650 mgJump to med 650 mg (15.5 mg/kg), Rectal, EVERY 4 HOURS PRN, mild pain, Starting on 11/25/22 at 1202, Maximum acetaminophen dose from all sources = 75 mg/kg/day not to exceed 4 grams/day. Group 5: glucose gel 15-30 gJump to med 15-30 g (0.357-0.714 g/kg), Oral, EVERY 15 MIN PRN, low blood sugar, Starting on 11/24/22 at 2339, Give first dose for initial blood glucose [...] sugar, Administer over 1-5 Minutes, Starting on 11/24/22 at 2339, Use if have IV access, BG less [...] injection 1 mgJump to med 1 mg (0.0238 mg/kg), Subcutaneous, EVERY 15 MIN PRN, low blood sugar, May repeat x 1 only, Starting on 11/24/22 at 2339, May give SQ or IM. ONLY use glucagon IF patient has NO IV access AND is UNABLE to swallow AND blood glucose is LESS than or EQUAL to 50 mg/dL. Group 6: naloxone (NARCAN) injection 0.2 mgJump to med 0.2 mg (0.82221 mg/kg), Intravenous, EVERY 2 MIN PRN, opioid reversal, Starting on 11/24/22 at 2202, Administer intravenous route when available and notify [...] injection 0.4 mgJump to med 0.4 mg (0.16980 mg/kg), Intravenous, EVERY 2 MIN PRN, opioid reversal, Starting on 11/24/22 at 2202, Administer intravenous route when available and notify [...] injection 0.2 mgJump to med 0.2 mg (0.73272 mg/kg), Intramuscular, EVERY 2 MIN PRN, opioid reversal, Starting on 11/24/22 at 2202, Administer intramuscular if an intravenous route is [...] injection 0.4 mgJump to med 0.4 mg (0.75435 mg/kg), Intramuscular, EVERY 2 MIN PRN, opioid reversal, Starting on 11/24/22 at 2202, Administer intramuscular if an intravenous route is [...] not improved after 4 naloxone doses. Group 7: ondansetron (ZOFRAN ODT) ODT tab 4 mgJump to med 4 mg (0.0952 mg/kg), Oral, EVERY 6 HOURS PRN, nausea, vomiting, Starting on 11/24/22 at 2133, This is Step 1 of nausea and [...] injection 4 mgJump to med 4 mg (0.0952 mg/kg), Intravenous, EVERY 6 HOURS PRN, nausea, vomiting, Administer over 2-5 Minutes, Starting on 11/24/22 at 2133, Give IF patient unable to tolerate oral medication. This is Step 1 of nausea and vomiting management. If nausea not resolved in 15 minutes, go to Step 2 prochlorperazine (COMPAZINE). Irritant. Group 8: prochlorperazine (COMPAZINE) injection 5 mgJump to med 5 mg (0.119 mg/kg), Intravenous, EVERY 6 HOURS PRN, nausea, vomiting, Administer over 1-2 Minutes, Starting on 11/24/22 at 2134, Give IF patient unable to tolerate oral medication. This is Step 2 of nausea and vomiting management. Give if nausea not resolved 15 minutes after giving ondansetron (ZOFRAN). If nausea not resolved in 15-30 minutes, Notify provider. Or prochlorperazine (COMPAZINE) tablet 5 mgJump to med 5 mg (0.119 mg/kg), Oral, EVERY 6 HOURS PRN, vomiting, Starting on 11/24/22 at 2134, This is Step 2 of nausea and vomiting management. Give if nausea not resolved 15 minutes after giving ondansetron (ZOFRAN). If nausea not resolved in 15-30 minutes, Notify provider. Or prochlorperazine (COMPAZINE) suppository 12.5 mgJump to med 12.5 mg (0.298 mg/kg), Rectal, EVERY 12 HOURS PRN, nausea, vomiting, Starting on 11/24/22 at 2134, This is Step 2 of nausea and vomiting management. Give if nausea not resolved 15 minutes after giving ondansetron (ZOFRAN). If nausea not resolved in 15-30 minutes, Notify provider. documented in this encounter Additional Health Concerns Infection Onset Date Last Indicated Resolved Time COVID-19 Comment:COVID + LEGAL ADMINISTRATOR transfer from [facility] ED 11/23/2022 11/26/2022 12/05/2022 9:18 A M CDT documented as of this encounter Care Teams Brush Painter Relationship Specialty Start Date End Date Tyrell Schneider [address] [place] [address] PCP - General Family Medicine 11/25/22 02/18/23 documented as of this encounter
--- OUTSIDE RECORDS SUMMARY | 2023-02-22 16:17 | XMS_ITS | Encounter Summary ---
Author Name Unknown Organization [facility] Address [address] [place] [id number] Care Team Providers Care Ferry Pilot Name Role Phone Unavailable Primary Care Provider Unavailabl e Reason for Visit * Reason Comments I need my left eye checked * Outpatient (Routine) - Closed Specialty Diagnoses / Procedures Referred By Constantine crump Referred To Contact Ophthalmology Luma Solis M.D., M.S. [address] [place] [phone] [facility] Referral ID Status Reason Start Date Expiration Date Visits Re quested Visits Authorized [id number] Closed 12/13/2021 12/12/2024 1 1 Encounter Details Date Type Department Care Team (Latest Contact Info) Description 10/02/2022 2:00 PM CDT Office Visit Department of Ophthalmology in [place], [place] [address] [place] [phone] Luma Solis M.D., M.S. [address] [place] [phone] Ulcer Cornea Central Left (Primary Dx); Keratoconjunctivitis Neurotropic Left; Penetrating Keratoplasty Status Post Social History Tobacco Use Types Packs/Day Years Used Date Smoking Tobacco: Some Days Cigarettes Smokeless Tobacco: Never Comments:Smoking less Nutrition Answer Date Recorded Nutrition: EVOO Fat Source Unknown 10/24 Nutrition: Servings of Fruits/Vegetables per Day Not on file 10/24/2020 Dental Answer Date Recorded Dental: Regular Dentist Unknown 09/13/20 21 Sex and Gender Information Value Date Recorded Sex Assigned at Not on file Gender Identity Female 01/08/2022 2:47 PM TIERCE FILLER Sexual Orientation Straight 01/08/2022 2: 47 PM TIERCE FILLER documented as of this encounter Progress Notes * Luma Solis M.D., M.S. - 10/02/2022 2:00 PM CDT Ms. Marircuz Vanegas is a 77 y.o. female with ESRD on dialysis, HTN, T2DM, hx penetrating keratoplasty in the left eye for pseudomonas ulcer status post snowman graft (2015), hx ulcer on the graft (11/2021, no growth by cultures) who was lost to follow up. She has been light perception in the left eye since approximately 2017. No contact lens use, no trauma to the eye. 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 She has been taping the eye shut during the day for the past 1 month which is helping. She is not currently in pain. IMPRESSION / PLAN No epi defect or ulcer on exam today. 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 Given neurotrophic status and history of multiple grafts, this isan infection risk. Discussed options of continuing lubrication / topical drops + ointments / tapingthe eyelid shut, marcella flap, and permanent temporal tarsorrhaphy. Discussed that any corneal ulcer is a risk for endophthalmitis, which could cause her significant pain and to lose the eye. She preferred less invasive options first (lubrication), but given my concern that recurrent epi defects and ulcers will likely happen is considering a marcella flap. She does not like the option of having her eyelid sewn shut. She will trial lubricating and antibiotic drops for a few weeks while she considers surgery. # new central corneal ulcer, left eye # Hx pseudomonas corneal ulcer left eye s/p penetrating keratoplasty with hypopyon washout 05/13/15 and subsequent snowman graft 06/10/15 # Fuchs corneal dystrophy, both eyes - RTC in 3 weeks for repeat exam on 10/22 along with slit lamp photographs for documentation of the corneal surface and B-scan to rule out pathology in the back of the eye as there is no view (earliest she can come is 10/22 as she requests rides) - punctal plugs placed both superiorly and inferiorly in the left eye today - continue vigamox QID, erythromycin QID, and artificial tears at least QID in the left eye until next appointment # Hx of diabetic retinopathy, right eye # Pseudophakia, both eyes Follows locally with optometry for this - Will perform repeat full dilated exam at next visit Discussed with Dr. Payton documented in this encounter Plan of Treatment Scheduled Orders Name Type Priority Associated Diagnoses Orde r Schedule B-Scan Ultrasound - OS - Left Eye Ophthalmology Routine Ulcer Cornea Central Left Expected: 10/02/2022 (Approximate), Expires: 01/03/2024 Slit Lamp Photography - OS - Left Eye Ophthalmology Routine Ulcer Cornea Central Left Expected: 10/02/2022 (Approximate), Expires: 01/03/2024 documented as of this encounter Visit Diagnoses Diagnosis Ulcer Cornea Central Left- Primary Keratoconjunctivitis Neurotropic Left Penetrating Keratoplasty Status Post documented in this encounter
--- OUTSIDE RECORDS SUMMARY | 2023-02-22 16:17 | XMS_ITS | Encounter Summary ---
Author Name Unknown Organization [facility] Address [address] [place] [id number] Care Team Providers Care Wholesale And Retail Merchant Name Role Phone Unavailable Primary Care Provider Unavailabl e Reason for Visit * Reason Onset Date Comments Reschedule 07/12/2022 Encounter Details Date Type Department Care Team (Latest Contact Info) Description 07/12/2022 Clinical Communication Department of Ophthalmology in [place], [place] [address] [place] [phone] Luma Solis M.D., M.S. [address] [place] [phone] Reschedule Social History Tobacco Use Types Packs/Day Years [...] file Gender Identity Female 01/08/2022 2:47 PM PROFESSOR OF MARKETING Sexual Orientation Straight 01/08/2022 2: 47 PM PROFESSOR OF MARKETING documented as of this encounter Plan of Treatment Not on file documented as of this encounter Visit Diagnoses Not on filedocumented in this encounter
--- OUTSIDE RECORDS SUMMARY | 2023-02-22 16:17 | XMS_ITS | Referral Summary ---
Author Name Unknown Organization [facility] Address [address] [place] [address] Care Team Providers Care Slope Runner Name Role Phone Unavailable Primary Care Provider Unavailabl e Source Comments Patient records contain information from all sites at [facility]. For routine questions regarding patient records, call [phone] during business hours, M-F 8:00 AM - 5:00 PM Central Time. Record requests for emergency care only can be directed to [phone] at any time.[facility] Encounters Date Type Department Care Team Description 12/07/2022 Refill Department of Nicotine Dependence, [facility], in [place], [place] [address] [place] [phone] Scott Regan M.D. Med Refill from Last 3 Months Allergies Active Allergy Reactions Criticality Noted Date Comments Ampicillin Hives (Reselect Reaction),Rash 05/13/2006 hives Atenolol Hives (Reselect Reaction),Rash 03/15/2005 Atorvastatin Other (see comments),Hives (Reselect Reaction),Myalgia 12/07/2003 bumps Cat Dander Hives (Reselect Reaction) 04/20/2021 Dog Dander Itching 04/15/2018 Sneezing Dulaglutide Nausea And Vomiting 04/13/2019 Nausea and vomiting on 1.5mg (questionable!!), ok on 0.75mg. Fish Oil Other (see comments) 04/20/2021 Thomas Edema (Reselect Reaction) 01/09/2017 Gatifloxacin Nausea Only,Nausea And Vomiting 04/20/2021 Gemfibrozil Other (see comments) 02/20/2010 itching Hydrochlorothiazide Other (see comments),Itching Low 10/09/2004 bumps pt had significant pruritic rash Lisinopril Other (see comments),Rash 03/15/2005 bumps Losartan Itching 01/09/2010 itching Niacin Itching 05/13/2006 itch Gotebo Rash 05/16/2010 [place] 4-Xkt-Bta-Fish Oil Other (see comments) 01/09/2010 itching Pioglitazone Rash 10/11/2020 Itchy rash Pravastatin Other (see comments),Myalgia 01/22/2012 Simvastatin Other (see comments) 04/04/2016 Leg pain Tolerating every other day. Tetracycline Other (see comments) 05/09/2015 bumps Medications Medication Sig Dispensed Refills Start Date End Date Status fluorometholone (FML) 0.1 % ophthalmic suspension Administer 1 drop into the left eye daily. 0 07/12/2016 Active acetaminophen (TYLENOL) 325 mg tablet Take 1 tablet by mouth. 0 05/25/2020 Active albuterol 2.5 mg /3 mL nebulizer solution Inhale 1 vial every 4 (four) hours. 0 04/20/2018 Active amLODIPine (NORVASC) 10 mg tablet Take 1 tablet by mouth. 0 05/09/2015 Active aspirin 81 mg capsule Daily 0 Active blood sugar diagnostic (Contour Test Strips) strips TEST TWO TIMES A DAY . 0 01/14/2015 Active blood-glucose meter kit Dispense glucose meter, test strips and lancets covered by the patient insurance. Test 2 times per day. 0 12/31/2012 Active calcitRIOL (ROCALTROL) 0.25 mcg capsule Daily 0 Active calcium acetate,phosphat bind, (PHOSLO) 667 mg (169 mg calcium) capsule TAKE 1 CAPSULE BY MOUTH THREE TIMES DAILY WITH MEALS DIRECTED 0 06/16/2018 Active celecoxib (CeleBREX) 200 mg capsule Take 1 capsule by mouth 2 (two) times a day. 0 05/14/2015 Active cetirizine (ZyrTEC) 10 mg tablet Take 1 tablet by mouth daily. 0 10/31/2016 Active cholecalciferol, vitamin D3, 25 mcg (1,000 Unit) tablet Take 1 tablet by mouth 2 (two) times a day. 0 05/09/2015 Active clobetasoL (TEMOVATE) 0.05 % cream Apply topically. 0 10/11/2020 Active cloNIDine (CATAPRES) 0.2 mg tablet Take 1 tablet by mouth 2 (two) times a day. 0 05/09/2015 Active furosemide (LASIX) 40 mg tablet Take 1 tablet by mouth every morning. 0 02/17/2020 Active gabapentin (NEURONTIN) 100 mg capsule 500mg oral at bedtime. 0 04/04/2021 Active glipiZIDE (GLUCOTROL XL) 10 mg 24 hr tablet Take 20 mg by mouth. 0 04/20/2018 Active hyoscyamine (ANASPAZ,LEVSIN) 0.125 mg tablet Take by mouth. 0 02/03/2017 Activ e ipratropium-albutero L (DUONEB) 0.5-2.5 mg/3 mL nebulizer solution Inhale 3 mL every 6 (six) hours as needed. 0 12/13/2020 Active labetaloL (NORMODYNE) 300 mg tablet Take 1 tablet by mouth. 0 04/20/2018 Active lidocaine-prilocaine (EMLA) 2.5-2.5 % cream APPLY SMALL AMOUNT TO ACCESS SITE (AVF) 1 TO 2 HOURS BEFORE DIALYSIS. COVER WITH OCCLUSIVE DRESSING (SARAN WRAP) 0 05/01/2018 Active metFORMIN (GLUCOPHAGE) 1,000 mg tablet Take 1 tablet by mouth 2 (two) times a day. 0 05/09/2015 Active white petrolatum-mineral oiL (Refresh P.M.) 57.3-42.5 % ointment 0.25-0.5 inches daily as needed. 0 04/17/2016 Active nicotine polacrilex (NICORETTE) 4 mg gum Take 4 mg by mouth. 0 05/11/2020 Active oxyCODONE (ROXICODONE) 5 mg immediate release tablet One oral twice daily as needed. 0 04/17/2021 Active polyethylene glycol (MIRALAX) 17 gram/dose oral powder Take 1 packet by mouth. 0 04/20/2018 Active prednisoLONE acetate (PRED FORTE) 1 % ophthalmic suspension INSTILL 1 DROP INTO THE LEFT EYE ONCE DAILY 0 03/12/2016 Active repaglinide (PRANDIN) 1 mg tablet Take 1 tablet by mouth. 0 10/11/2020 Active sennosides (SENOKOT) 8.6 mg tablet Take by mouth. 0 04/20/2018 Active simvastatin (ZOCOR) 20 mg tablet Every 48 Hours 0 05/09/2015 Active sorbitoL 70 % solution 30 mL. 0 04/20/2020 Active triamcinolone (KENALOG) 0.1 % cream Apply topically. 0 01/24/2021 Active nicotine (NICODERM CQ) 14 mg/24 hr patch Apply 14 mg patch daily for four to six weeks, then taper to 7 mg for two to six weeks until off. 14 patch 3 2021 Active nicotine (Nicoderm CQ) 7 mg/24 hr patch Apply 21 mg patch daily for 4-10 weeks, taper to 14 mg patch for 4-10 weeks, then taper to 7 mg patch for 4-10 weeks until off. 14 patch 5 11/24/2021 Active nicotine (Nicoderm CQ) 14 mg/24 hr patch Apply 21 mg patch daily for 4-10 weeks, taper to 14 mg patch for 4-10 weeks, then taper to 7 mg patch for 4-[address] on file. 14 patch 5 11/24/2021 Active nicotine (Nicoderm CQ) 21 mg/24 hr patch Apply 21 mg patch daily for 4-10 weeks, taper to 14 mg patch for 4-10 weeks, then taper to 7 mg patch for 4-[address] on file. 14 patch 5 11/24/2021 Active neomycin-polymyxin B-dexameth (MAXITROL) 3.5 mg/g-10,000 unit/g-0.1 % ophthalmic ointment Instill a 1/4 inch ribbon into the left eye four times daily* 0 09/24/2022 Active mupirocin (BACTROBAN) 2 % ointment APPLY TO PD EXIT SITE DAILY* 0 08/21/2022 Active erythromycin (ROMYCIN) 5 mg/gram (0.5 %) ophthalmic ointment Instill a 1/4 inch ribbon into the inferior cul-de-sac of the right eye four times daily* 0 09/25/2022 Active moxifloxacin (VIGAMOX) 0.5 % ophthalmic solution Administer 1 drop into the left eye. 0 07/18/2022 Active Active Problems Problem Noted Date Diagnosed Date Diabetes Mellitus Type 2 04/25/2021 Overview: A1C 7.0 8/ Spinal Stenosis Lumbosacral Region 04/25/2021 Overview: Added automatically from request for surgery [id number] Depression Major Recurrent 03/22/2021 Anemia In Chronic Kidney Disease 04/18/2018 Chronic Obstructive Pulmonary Disease 04/18/2018 Failure Renal End Stage 04/18/2018 Dialysis Dependent 04/18/2018 Nicotine Dependence Unspecified 04/18/2018 Immunizations Name Administration Dates Next Due Influenza Split 10/12/2014 Social History Tobacco Use Types Packs/Day Years Used Date Smoking Tobacco: Some Days Cigarettes Smokeless Tobacco: Never Tobacco Cessation:Ready to Q uit: Not Asked; Counseling Given: Not Answered Comments:Smoking less Nutrition Answer Date Recorded Nutrition: EVOO Fat Source Unknown 10/24 Nutrition: Servings of Fruits/Vegetables per Day Not on file 10/24/2020 Dental Answer Date Recorded Dental: Regular Dentist Unknown 10/25/19 Sex and Gender Information Value Date Recorded Sex Assigned at Not on file Gender Identity Female 01/08/2022 2:47 PM PARTS COUNTER ASSOCIATE Sexual Orientation Straight 01/08/2022 2: 47 PM PARTS COUNTER ASSOCIATE Last Filed Vital Signs Vital Sign Reading Time Taken Comments Blood Pressure 146/69 04/25/2021 8:56 AM CDT Pulse 62 04/25/2021 8:56 AM CDT Temperature 35.8 ??C (96.4 ??F) 04/25/2021 1 :32 PM CDT Respiratory Rate 16 05/14/2015 10:0 0 AM CDT Value from [employer]. Oxygen Saturation - - Inhaled Oxygen Concentration - - Weight 49.2 kg (108 lb 5.7 oz) 04/25/2021 1:32 PM CDT Height 152.9 cm (5' 0.2) 04/25/2021 1: 32 PM CDT Body Mass Index 21.02 04/25/2021 1:32 PM CDT Plan of Treatment Not on file Medical Devices Implanted Type Area Patent Legal Assistant Device Identifier Shelf Expiration Date Model / Serial / Lot Cornea - Orozco [id number] Implanted:Qty: 1 on 05/13/2015 Ocular (Eye) Implant Other/Legacy - See Implant Description [facility] Description:Device Manufactu rer - [facility] [employer] [facility]. Body Location - Other. Left. Device Status Text - [id number]. Cornea - Orozco [id number] Implanted:Qty: 1 on 06/10/2015 Ocular (Eye) Implant Other/Legacy - See Implant Description [employer] Eye [facility] Description:Device Manufactu rer - [employer] [facility]. Body Location - Other. Left. Device Status Text - [id number].
--- OUTSIDE RECORDS SUMMARY | 2023-02-22 16:17 | XMS_ITS | Encounter Summary ---
Author Name Unknown Organization [facility] Address [address] [place] [address] Care Team Providers Care Seat Trimmer Name Role Phone Unavailable Primary Care Provider Unavailabl e Encounter Details Date Type Department Care Team (Latest Contact Info) Description 09/27/2022 4:00 PM CDT Clinical Communication Virtual Review in [place], [place] 200 [place], [place] [phone] Social History Tobacco Use Types Packs/Day Years [...] file Gender Identity Female 01/08/2022 2:47 PM STRUCTURAL STEEL FITTER Sexual Orientation Straight 01/08/2022 2: 47 PM STRUCTURAL STEEL FITTER documented as of this encounter Plan of Treatment Not on file documented as of this encounter Visit Diagnoses Not on filedocumented in this encounter
--- OUTSIDE RECORDS SUMMARY | 2023-02-22 16:17 | XMS_ITS | Encounter Summary ---
Author Name Unknown Organization [facility] Address [address] [place] [address] Care Team Providers Care Primary Operator Name Role Phone Unavailable Primary Care Provider Unavailabl e Encounter Details Date Type Department Care Team (Latest Contact Info) Description 07/17/2022 Clinical Communication Department of Ophthalmology in [place], [place] [address] [place] [address] Luma Solis M.D., M.S. [address] [place] [address] Social History Tobacco Use Types Packs/Day Years [...] file Gender Identity Female 01/08/2022 2:47 PM RETAIL FIELD REPRESENTATIVE Sexual Orientation Straight 01/08/2022 2: 47 PM RETAIL FIELD REPRESENTATIVE documented as of this encounter Plan of Treatment Not on file documented as of this encounter Visit Diagnoses Not on filedocumented in this encounter
--- OUTSIDE RECORDS SUMMARY | 2023-02-22 16:17 | XMS_ITS | Clinical Summary ---
Author Name Unknown Organization [facility] Address [address] [place] [address] Care Team Providers Care Truck Jumper Name Role Phone Unavailable Primary Care Provider Unavailabl e Source Comments Patient records contain information from all sites at [facility]. For routine questions regarding patient records, call [phone] during business hours, M-F 8:00 AM - 5:00 PM Central Time. Record requests for emergency care only can be directed to [phone] at any time.[facility] Allergies Active Allergy Reactions Criticality Noted Date [...] Itching 01/09/2010 itching Niacin Itching 05/13/2006 itch Hardy Rash 05/16/2010 [place] 1-Uel-Pgx-Fish Oil Other (see comments) 01/09/2010 itching Pioglitazone [...] Mellitus Type 2 04/25/2021 Overview: A1C 7.0 09/15 Spinal Stenosis Lumbosacral Region 04/25/2021 Overview: Added automatically from request for surgery [id number] Depression Major Recurrent 03/22/2021 Anemia In Chronic Kidney Disease 04/18/2018 Chronic Obstructive Pulmonary Disease 04/18/2018 Failure Renal End Stage 04/18/2018 Dialysis Dependent 04/18/2018 Nicotine Dependence Unspecified 04/18/2018 Encounters Date Type Department Care Team Description 12/07/2022 Refill Department of Nicotine Dependence, [facility], in [place], [place] [address] [place] [address] Scott Regan M.D. Med Refill from Last 3 Months Immunizations Name Administration Dates Next Due Influenza [...] file Gender Identity Female 01/08/2022 2:47 PM FILM FLAT INSPECTOR Sexual Orientation Straight 01/08/2022 2: 47 PM FILM FLAT INSPECTOR Last Filed Vital Signs Vital Sign Reading [...] 04/25/2021 1:32 PM CDT Plan of Treatment Health Maintenance Due Date Last Done Comments Bone Density Scan (Osteoporo sis Screen) 1947 CT Colonography 1947 Cologuard 1945 Colonoscopy 1945 Colorectal Cancer Screening 1945 Depression Monitoring (PHQ-9) 1947 Diabetic Office Visit with F oot Exam 1947 FIT 1947 Hepatitis C Screening 1945 Urine Albumin 1947 Zoster Vaccines (1 of 2) 07/10/2012 05/15/2012 Hemoglobin A1C 11/12/2015 05/13/2015 Dilated Eye Exam 07/12/2017 07/12/2016, , 05/24/2015, Additional history exists Mammogram 01/02/2020 01/01/2019 DTaP,Tdap,and Td Vaccines (2 - Td or Tdap) 05/30/2020 05/30/2010 Office Visit for Blood Press ure Check / Re-check 07/26/2021 04/25/2021 Fall Risk Screen (Annual) 02/11/2022 Creatinine Level (Kidney Fun ction Test) 12/07/2023 12/06/2022, 12/05/2022, 12/04/2022, Additional history exists Potassium Level 12/07/2023 12/06/2022, 11/12, 12/04/2022, Additional history exists Sodium Level 12/07/2023 12/06/2022, 11/12, 12/04/2022, Additional history exists Lipid (Cholesterol) Screening 11/15/2027, 10/25/2021, 10/11/2020, Additional history exists Pneumococcal vaccine (65+ years) Completed 04/10/2022, 06/22/2014, 12/31/2012, Additional history exists Influenza Vaccine Completed 10/19/2022, , 10/28/2020, Additional history exists COVID-19 Vaccine Completed 12/25/2022, , 05/17/2021, Additional history exists Medical Devices Implanted Type Area Wind Up Operator Device Identifier Shelf Expiration Date Model / Serial / Lot Cornea - [id number] [id number] Implanted:Qty: 1 on 05/13/2015 Ocular (Eye) Implant Other/Legacy - See Implant Description [employer] [facility] Description:Device Manufactu rer - [employer]. Body Location - Other. Left. Device Status Text - [id number]. Cornea - Orozco [id number] Implanted:Qty: 1 on 06/10/2015 Ocular (Eye) Implant Other/Legacy - See Implant Description [facility] Description:Device Manufactu rer - [employer]. Body Location - Other. Left. Device Status Text - [id number].
--- OUTSIDE RECORDS SUMMARY | 2023-02-22 16:18 | XMS_ITS | Encounter Summary ---
Author Name Unknown Organization [facility] Address [address] [place] [address] Care Team Providers Care Medical Coordinator Pesticide Use Name Role Phone Unavailable Primary Care Provider Unavailabl e Encounter Details Date Type Department Care Team (Late st Contact Info) Description 05/14/2015 Historical Ophthalmology [facility] Maricruz Garcia M.D. Social History Tobacco Use Types Packs/Day Years Used Date Smoking Tobacco: Never Assessed Sex and Gender Information Value Date Recorded Sex Assigned at Not on file Gender Identity Female 01/08/2022 2:47 PM MANAGER ACCESS Sexual Orientation Straight 01/08/2022 2: 47 PM MANAGER ACCESS documented as of this encounter Progress Notes * Maricruz Garcia M.D. - 05/14/2015 8:55 AM CDT Eye General HISTORY OF PRESENT ILLNESS SCB: She was comfortable overnight and the eye is not painful. Feels vision is slightly better. 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 No pain. PK garret negative. IOP normal. s/p intra-op subconj Dex Plan: (Instructions printed and discussed with brother) Alternate every 2 hours with Tobramycin (not fortified- less toxic to corneal epi) and Ocuflox lefteye Start Cyclogyl 2% BID left eye Start Pred forte BID left eye RTC Saturday NEEDS DILATED EXAM RIGHT EYE Discussed she should call us with any significant pain, worsening vision, worsening concerns beforeMonday follow up- she understands. 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
--- OUTSIDE RECORDS SUMMARY | 2023-02-22 16:18 | XMS_ITS | Encounter Summary ---
Author Name Unknown Organization [facility] Address [address] [place] [address] Care Team Providers Care Card Cleaner Name Role Phone Unavailable Primary Care Provider Unavailabl e Encounter Details Date Type Department Care Team (Late st Contact Info) Description 04/17/2016 Historical Ophthalmology [facility] Daniel Clements M.D. [address] [place] [phone] Social History Tobacco Use Types Packs/Day Years Used Date Smoking Tobacco: Never Assessed Sex and Gender Information Value Date Recorded Sex Assigned at Not on file Gender Identity Female 01/08/2022 2:47 PM AUDIO VISUAL COLLECTIONS COORDINATOR Sexual Orientation Straight 01/08/2022 2: 47 PM AUDIO VISUAL COLLECTIONS COORDINATOR documented as of this encounter Progress Notes * Daniel Clements M.D. - 04/17/2016 9:37 AM CST Eye General CHIEF COMPLAINT Left eye itching all night long; 2.5 weeks; tearing a little. HISTORY OF PRESENT ILLNESS [place] over left eye pupil. No eye pain. Vision is about the same as last time here. No floaters seen. No flashes. No complaints about eye drops. No pressure. DFP: as above. Left eye has been itching for the last few weeks. Getting better. No vision changes.Thinks she maybe had an allergy to something, maybe perfume. No pain. Using Refresh tears 3x daily (mostly at night) and prednisolone drop 1 x daily. 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 No infectious-appearing infiltrates. Stable mild vascular ingrowth around some sutures. Epi is intact. Loose suture inferotemporal on main graft- 1 sutures removed at slit lamp today. No need to continue Vigamox. Continue PF once daily with liberal use of preservative free artificial tears. IOP remains acceptable - watch closely due to angle closure. 17 Apr 2016: Seen today prior to previously planned appt time due to left eye itching. Exam is stable. Recommend f/u per above in May with Lasha. Start Refresh PM for eye itching which is due to dryness. Sooner f/u prn. Continue prednisolone 1 x daily. Refresh tears 4x daily #2 Background diabetic retinopathy, right eye Discussed importance of strict glucose/BP control #3 Monocular status #4 Floaters, right eye Stable. Discussed signs/symptoms of retinal tears/detachment for which patient should be seen urgently, especially given her monocular status. 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
--- OUTSIDE RECORDS SUMMARY | 2023-02-22 16:18 | XMS_ITS | Encounter Summary ---
Author Name Unknown Organization [facility] Address [address] [place] [address] Care Team Providers Care Geochemistry Teacher Name Role Phone Unavailable Primary Care Provider Unavailabl e Encounter Details Date Type Department Care Team (Late st Contact Info) Description 11/23/2015 Historical Ophthalmology [facility] Deann Colby M.D. [address] [place] [phone] Social History Tobacco Use Types Packs/Day Years Used Date Smoking Tobacco: Never Assessed Sex and Gender Information Value Date Recorded Sex Assigned at Not on file Gender Identity Female 01/08/2022 2:47 PM PRECISION LENS GRINDER APPRENTICE Sexual Orientation Straight 01/08/2022 2: 47 PM PRECISION LENS GRINDER APPRENTICE documented as of this encounter Progress Notes * Deann Colby M.D. - 11/23/2015 10:23 AM CDT Eye General CHIEF COMPLAINT follow up LE HISTORY OF PRESENT ILLNESS Left eye has improved slightly since last month. Mattering, left eye, 1-2 times per day. Denies pain. Vision remains the same. LAD: Using PF once daily; using Vigamox BID; vision slightly improved; continues to have mild mattering; no new concerns. 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 23 Nov 2015: Corneal edema continues to improve on main and small grafts. No infectious-appearing infiltrates. Stable mild vascular ingrowth around some sutures. Epi is intact. Loose suture superonasally but no surrounding infiltrate - removed at slit lamp today. Continue Vigamox BID. Continue PF to once daily with liberal use of preservative free artificial tears. IOP remains acceptable. Seen with Dr. Payton. RTC 4-5 weeks/sooner with any significant pain, worsening vision, worsening concerns. Must come in when ONLINE MARKETING DIRECTOR is here (preferably as COS staff). Use fluorescein strips only, not Fluress. #2 Background diabetic retinopathy, right eye Discussed [...] #4 Floaters, right eye [facility] Id: [id number] Status: Fnl documented in this encounter Plan of Treatment Not on file documented as of this encounter Visit Diagnoses Not on filedocumented in this encounter
--- OUTSIDE RECORDS SUMMARY | 2023-02-22 16:18 | XMS_ITS | Encounter Summary ---
Author Name Unknown Organization [facility] Address [address] [place] [address] Care Team Providers Care Audio Visual Design Engineer Name Role Phone Unavailable Primary Care Provider Unavailabl e Encounter Details Date Type Department Care Team (Late st Contact Info) Description 06/13/2015 Historical Ophthalmology [facility] Maricruz Garcia M.D. Social History Tobacco Use Types Packs/Day Years Used Date Smoking Tobacco: Never Assessed Sex and Gender Information Value Date Recorded Sex Assigned at Not on file Gender Identity Female 01/08/2022 2:47 PM GUTTER INSTALLER Sexual Orientation Straight 01/08/2022 2: 47 PM GUTTER INSTALLER documented as of this encounter Progress Notes * Maricruz Garcia M.D. - 06/13/2015 3:08 PM CDT Eye Postoperative MULTI-VISIT DOCUMENT This document contains multiple patient visits and is available for review in Document Viewer. CDM Reports - [facility] Id: [id number] Status: Fnl documented in this encounter Plan of Treatment Not on file documented as of this encounter Visit Diagnoses Not on filedocumented in this encounter
--- OUTSIDE RECORDS SUMMARY | 2023-02-22 16:18 | XMS_ITS | Encounter Summary ---
Author Name Unknown Organization [facility] Address [address] [place] [id number] Care Team Providers Care Slice Plug Cutter Operator Name Role Phone Unavailable Primary Care Provider Unavailabl e Encounter Details Date Type Department Care Team (Late st Contact Info) Description 07/12/2016 Historical Ophthalmology RST OPH Deann Colby M.D. [address] [place] [phone] Social History Tobacco Use Types Packs/Day Years Used Date Smoking Tobacco: Never Assessed Sex and Gender Information Value Date Recorded Sex Assigned at Not on file Gender Identity Female 01/08/2022 2:47 PM SWIMMING TEACHER Sexual Orientation Straight 01/08/2022 2: 47 PM SWIMMING TEACHER documented as of this encounter Progress Notes * Deann Colby M.D. - 07/12/2016 9:11 AM CDT Eye General CHIEF COMPLAINT follow up corneal ulcer, left eye and suture removal s/p PK HISTORY OF PRESENT ILLNESS One month follow up, had sutures removed June 11, states she had eye pain after that for about 2 weeks, gone now. Left eye has had matter in the corner of it for about two weeks, daily, constant. No vision changes noted. LAD: Had some eye irritation after suture removal, which has since resolves; still has some mattering, not worsening; no vision changes; no new concerns. IMPRESSION / REPORT / PLAN 12 Mar [...] - watch closely due to angle closure. 11 Jun 2016: Seen today nearly 1 year after surgery with GREASER OPERATOR. Exam is stable with 1 loose suture. IOP stable. Removed 11 sutures in total today. Continue prednisolone 1 x daily. Refresh tears 4x daily. RTC 4-6 weeks with refraction when Dr. Payton is in clinic. 12 Jul 2016: Seen with GREASER OPERATOR. Exam stable with 1 loose suture. IOP stable. Removed 1 suture inferiorly today. Discussed that glasses do not improve VA, but a hard contact lens may help. At this time, Ms. Vanegas does not feel that she could manage a contact lens. Therefore, at this point, she needs continued medical monitoring for stability. Switch PF to FML 1x daily. Continue Refresh 4x daily. Letter sent to Benigno Bishop, OD, FAAO at [facility] who also cares for Ms. Vanegas. Recommend he recheck IOP and visual acuity in 4 months. 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 Return to [place] PRN. #2 Background diabetic retinopathy, right eye Discussed importance of strict glucose/BP control #3 Monocular status Wear polycarbonate lenses to protect the good eye. #4 Floaters, right eye Stable. Discussed signs/symptoms of retinal tears/detachment for which patient should be seen urgently, especially given her monocular status. 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
--- OUTSIDE RECORDS SUMMARY | 2023-02-22 16:18 | XMS_ITS | Encounter Summary ---
Author Name Unknown Organization [facility] Address [address] [place] [address] Care Team Providers Care Oracle Solutions Architect Name Role Phone Unavailable Primary Care Provider Unavailabl e Encounter Details Date Type Department Care Team (Late st Contact Info) Description 10/24/2015 Historical Ophthalmology RST OPH Deann Colby M.D. [address] [place] [phone] Social History Tobacco Use Types Packs/Day Years Used Date Smoking Tobacco: Never Assessed Sex and Gender Information Value Date Recorded Sex Assigned at Not on file Gender Identity Female 01/08/2022 2:47 PM SENIOR SQL DBA Sexual Orientation Straight 01/08/2022 2: 47 PM SENIOR SQL DBA documented as of this encounter Progress Notes * Deann Colby M.D. - 10/24/2015 9:05 AM CDT Eye General CHIEF COMPLAINT follow up LE HISTORY OF PRESENT ILLNESS pt notes shes having less matterying and redness. she will still get occasional shooting pain in the LE. LAD: Mattering and redness improved; back on Vigamox; vision stable; minimal irritation; no new concerns. 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 24 Oct 2015: Corneal edema continues to improve on main and small grafts. No infectious-appearing infiltrates. Stable mild vascular ingrowth around some sutures. Epi is intact. Loose suture inferotemporally but no surrounding infiltrate - removed at slit lamp today. Continue Vigamox BID (discussed O cuflox, but patient prefers Vigamox). Decrease PF to once daily with liberal use of preservative free artificial tears. IOP remains acceptable. Seen with Dr. Payton. RTC 1 month/sooner with any significant pain, worsening vision, worsening concerns. Must come in when DECONTAMINATOR is here. Use fluorescein strips only, not Fluress. #2 [...] #4 Floaters, right eye CDM Reports - [facility] Id: [id number] Status: Fnl documented in this encounter Plan of Treatment Not on file documented as of this encounter Visit Diagnoses Not on filedocumented in this encounter
--- OUTSIDE RECORDS SUMMARY | 2023-02-22 16:18 | XMS_ITS | Encounter Summary ---
Author Name Unknown Organization [facility] Address [address] [place] [address] Care Team Providers Care Holistic Nutritionist Name Role Phone Unavailable Primary Care Provider Unavailabl e Encounter Details Date Type Department Care Team (Late st Contact Info) Description 05/24/2015 Historical Ophthalmology RST OPH Eva Heard M.D. [address] [facility] 200 [place] [address] Social History Tobacco Use Types Packs/Day Years Used Date Smoking Tobacco: Never Assessed Sex and Gender Information Value Date Recorded Sex Assigned at Not on file Gender Identity Female 01/08/2022 2:47 PM NEGATIVE TURNER Sexual Orientation Straight 01/08/2022 2: 47 PM NEGATIVE TURNER documented as of this encounter Progress Notes * Eva Heard M.D. - 05/24/2015 1:42 PM CDT Eye General HISTORY OF PRESENT ILLNESS Notes vision has remained the same. Patient denies ocular pain. Has Foreign body sensation under upper left lid. EAA: Had some difficulty with the photos. Prior to photos no issues with pain or discomfort. 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 Will increase steroids and see back Saturday. s/p intra-op subconj Dex Seen with HALFWAY HOUSE COUNSELOR today Plan: Alternate every 2 hours with Tobramycin (not fortified- less toxic to corneal epi) and Ciprofloxacin left eye (refilled today Increase Pred forte to four times a day left eye Continue patch at night (may also wear during day if desired) May use genteal gel PRN irritation as long as not before other drops are due RTC Saturday Discussed she should call us with any significant pain, worsening vision, worsening concerns beforenext follow up follow up- she understands. 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
--- OUTSIDE RECORDS SUMMARY | 2023-02-22 16:18 | XMS_ITS | Encounter Summary ---
Author Name Unknown Organization [facility] Address [address] [place] [address] Care Team Providers Care Environmental Protection Geologist Name Role Phone Unavailable Primary Care Provider Unavailabl e Encounter Details Date Type Department Care Team (Late st Contact Info) Description 05/20/2015 Historical Ophthalmology RST OPH Eva Heard M.D. [address] [facility] 200 [place] [address] Social History Tobacco Use Types Packs/Day Years Used Date Smoking Tobacco: Never Assessed Sex and Gender Information Value Date Recorded Sex Assigned at Not on file Gender Identity Female 01/08/2022 2:47 PM COMMERCIAL REAL ESTATE ASSOCIATE Sexual Orientation Straight 01/08/2022 2: 47 PM COMMERCIAL REAL ESTATE ASSOCIATE documented as of this encounter Progress Notes * Eva Heard M.D. 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 Patient almost out of the drop she takes every 2 hours, ciloxan? Patient says she has not had any changes to vision, not clear but she can see out of it. Patient compliant with all drops. EAA: Still gets tired when watching TV. The gel did help but still some discomfort. 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 Will increase steroids and see back Saturday. s/p intra-op subconj Dex Seen with CYBER ENGINEER today Plan: Alternate every 2 hours with Tobramycin (not fortified- less toxic to corneal epi) and Ciprofloxacin left eye (refilled today Stop Cyclogyl 2% (red top) Increase Pred forte to four times a day left eye Continue patch at night (may also wear during day if desired) May use genteal gel PRN irritation as long as not before other drops are due RTC Saturday. Discussed she should call us with any significant pain, worsening vision, worsening concerns beforenext follow up follow up- she understands. 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
--- OUTSIDE RECORDS SUMMARY | 2023-02-22 16:18 | XMS_ITS | Encounter Summary ---
Author Name Unknown Organization [facility] Address [address] [place] [address] Care Team Providers Care Vp Purchasing Name Role Phone Unavailable Primary Care Provider Unavailabl e Encounter Details Date Type Department Care Team (Late st Contact Info) Description 07/18/2015 Historical Ophthalmology RST OPH Eva Heard M.D. [address] [facility] 200 [place] [address] Social History Tobacco Use Types Packs/Day Years Used Date Smoking Tobacco: Never Assessed Sex and Gender Information Value Date Recorded Sex Assigned at Not on file Gender Identity Female 01/08/2022 2:47 PM PELLETIZER OPERATOR Sexual Orientation Straight 01/08/2022 2: 47 PM PELLETIZER OPERATOR documented as of this encounter Progress Notes * Eva Heard M.D. - 07/18/2015 2:18 PM CDT Eye General CHIEF COMPLAINT Follow up on left eye HISTORY OF PRESENT ILLNESS Notes vision is about the same. Pain; left eye; x 3 days; intermittently; symptoms reported at level of 2/10. Notes brown maddox on sclera of left eye. EAA: She has some aching in the left eye. She doesn't feel it during the day but at night it sometimes aches. 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 06/13/15: Paul negative. Well formed chamber, with normal IOP. Graft and sutures intact. Suture reaction most significant inferiorly, will continue pred forte TID and consider suture removal inferiorly at next visit. 06/16/15: Paul negative, formed chamber, suture reaction on all original graft sutures, no loose sutures, discussed with DOREEN, continue current drops and return next week when PICCOLO MECHANIC here. Seen with SCB today. 06/20/15: Paul negative, formed chamber, suture reaction decreased, seen with PICCOLO MECHANIC, M Parasol occluder placed in left lower puncu, expires 2018, LOT [id number] 06/27/15: Paul negative, increased edema over snowman graft. Epi defect slightly larger. Much better moisture with punctal plug in place. Placed bandage lens (toric) today. Return in 1 week, sooner PRN 07/04/15: Paul negative, decreased edema over snowman graft, epi defect much smaller today. Replaced contact lens 07/12/15: Paul negative, stable edema over snowman graft, epi defect smaller today. Replaced contact lens 07/18/15: Stable edema over graft, epithelium healed, will discontinue bandage lens and stop the vigamox, watch IOP closely Plan: Continue pred forte three times a day Celluvisc four times a day and PRN Return 2-3 weeks sooner with any significant pain, worsening vision, worsening concerns. 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
--- OUTSIDE RECORDS SUMMARY | 2023-02-22 16:18 | XMS_ITS | Encounter Summary ---
Author Name Unknown Organization [facility] Address [address] [place] [address] Care Team Providers Care Fur Matcher Name Role Phone Unavailable Primary Care Provider Unavailabl e Encounter Details Date Type Department Care Team (Late st Contact Info) Description 06/05/2016 Historical Ophthalmology RST OPH Deann Colby M.D. [address] [place] [phone] Social History Tobacco Use Types Packs/Day Years Used Date Smoking Tobacco: Never Assessed Sex and Gender Information Value Date Recorded Sex Assigned at Not on file Gender Identity Female 01/08/2022 2:47 PM RESIDENTIAL INTERIOR DESIGNER Sexual Orientation Straight 01/08/2022 2: 47 PM RESIDENTIAL INTERIOR DESIGNER documented as of this encounter Progress Notes * Deann Colby M.D. - 06/05/2016 8:33 AM CDT Eye General CHIEF COMPLAINT recheck corneal ulcer, left eye HISTORY OF PRESENT ILLNESS Patient here for recheck corneal ulcer, left eye and suture removal. Patient states cloudy vision in left eye is the same. Patient denies ocular pain, flashes or floaters. Patient denies any new vision concerns. IMPRESSION / REPORT / PLAN Patient mis-scheduled when no cornea staff were in clinic. Discussed options with patient. She cannot stay to be seen with cornea staff this afternoon. She would prefer to forego today's appointment given that symptoms are stable and return on Saturday when Dr. Payton is in clinic. CDM Reports - [facility] Id: [id number] Status: Fnl documented in this encounter Plan of Treatment Not on file documented as of this encounter Visit Diagnoses Not on filedocumented in this encounter
--- OUTSIDE RECORDS SUMMARY | 2023-02-22 16:18 | XMS_ITS | Encounter Summary ---
Author Name Unknown Organization [facility] Address [address] [place] [address] Care Team Providers Care Clothing Trades Workers Name Role Phone Unavailable Primary Care Provider Unavailabl e Encounter Details Date Type Department Care Team (Late st Contact Info) Description 09/26/2015 Historical Ophthalmology RST OPH Deann Colby M.D. [address] [place] [phone] Social History Tobacco Use Types Packs/Day Years Used Date Smoking Tobacco: Never Assessed Sex and Gender Information Value Date Recorded Sex Assigned at Not on file Gender Identity Female 01/08/2022 2:47 PM PATCH WASHER Sexual Orientation Straight 01/08/2022 2: 47 PM PATCH WASHER documented as of this encounter Progress Notes * Deann Colby M.D. - 09/26/2015 9:04 AM CDT Eye General CHIEF COMPLAINT follow up on corneal ulcer HISTORY OF PRESENT ILLNESS Vision is fluctuating from time to time since last visit. Notes vision is still blurred at distance. Patient denies ocular pain. Deneis any new concerns. 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 26 Sep 2015: Corneal edema continues to improve on main graft, slightly worse on small graft. No infectious-appearing infiltrates. There is mild vascular ingrowth around some sutures. Epi is intact. 3 loose sutures, nasal small graft, superotemp and temp main graft, removed at slit lamp. Continue PF BID with liberal use of preservative free artificial tears. IOP remains acceptable. Return 4-5 weeks/sooner with any significant pain, worsening vision, worsening concerns. Must come in when ASTRONOMY PROFESSOR is here. Use fluorescein strips only, not Fluress. #2 Background diabetic retinopathy, right eye Discussed importance of strict glucose/BP control #3 Monocular status #4 Floaters, right eye No PVD. No retinal tears or holes. No vit heme. Discussed signs/symptoms of retinal tears/detachment for which patient should be seen urgently, especially given her monocular status. 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
--- OUTSIDE RECORDS SUMMARY | 2023-02-22 16:18 | XMS_ITS | Encounter Summary ---
Author Name Unknown Organization [facility] Address [address] [place] [address] Care Team Providers Care Bill Distributor Name Role Phone Unavailable Primary Care Provider Unavailabl e Encounter Details Date Type Department Care Team (Late st Contact Info) Description 07/04/2015 Historical Ophthalmology RST OPH Eva Heard M.D. [address] [facility] 200 [place] [address] Social History Tobacco Use Types Packs/Day Years Used Date Smoking Tobacco: Never Assessed Sex and Gender Information Value Date Recorded Sex Assigned at Not on file Gender Identity Female 01/08/2022 2:47 PM SPEAR FISHER Sexual Orientation Straight 01/08/2022 2: 47 PM SPEAR FISHER documented as of this encounter Progress Notes * Eva Heard M.D. - 07/04/2015 9:39 AM CDT Eye Postoperative MULTI-VISIT DOCUMENT This document contains multiple patient visits and is available for review in Document Viewer. CDM Reports - [facility] Id: [id number] Status: Fnl documented in this encounter Plan of Treatment Not on file documented as of this encounter Visit Diagnoses Not on filedocumented in this encounter
--- OUTSIDE RECORDS SUMMARY | 2023-02-22 16:18 | XMS_ITS | Encounter Summary ---
Author Name Unknown Organization [facility] Address [address] [place] [address] Care Team Providers Care Director Network Development Name Role Phone Unavailable Primary Care Provider Unavailabl e Reason for Visit * Reason Onset Date Comments Follow-up 05/14/2022 [facility] is c alling to complete your 1-year follow-up PROMIS-CAT questionnaires. You will receive questionnaires at different timepoints in the future. You can complete the current questionnaires in your portal and no return call is necessary. If you have any questions, please call us at: [phone]. Thank you! Encounter Details Date Type Department Care Team (Latest Contact Info) Description 05/14/2022 Clinical Communication Department of Spine in [place], [place] [address] [place] [phone] Ramona Hawk R.N. [address] [place] [phone] Follow-up ([facility] is calling to complete your 1-year follow-up PROMIS-CAT questionnaires. You will receive questionnaires at different timepoints in the future. You can complete the current questionnaires in your portal and no return call is necessary. If you have any questions, please call us at: [phone]. Thank you! //) Social History Tobacco Use Types Packs/Day Years [...] file Gender Identity Female 01/08/2022 2:47 PM PERFORMANCE INSTRUCTOR Sexual Orientation Straight 01/08/2022 2: 47 PM PERFORMANCE INSTRUCTOR documented as of this encounter Miscellaneous Notes * Telephone Encounter - Ramona Hawk RHarsha. - 05/14/2022 9:39 AM CDT [facility] is calling to complete your 1-year follow-up PROMIS-CAT questionnaires. You will receive questionnaires at different timepoints in the future. You can complete the current questionnaires in your portal and no return call is necessary. If you have any questions, please call us at: [phone]. Thank you! documented in this encounter Plan of Treatment Not on file documented as of this encounter Visit Diagnoses Not on filedocumented in this encounter
--- OUTSIDE RECORDS SUMMARY | 2023-02-22 16:18 | XMS_ITS | Encounter Summary ---
Author Name Unknown Organization [facility] Address [address] [place] [address] Care Team Providers Care Chair Spring Assembler Name Role Phone Unavailable Primary Care Provider Unavailabl e Reason for Visit * Reason Onset Date Comments Nicotine Dependence 03/09/2022 Encounter Details Date Type Department Care Team (Latest Contact Info) Description 03/09/2022 Clinical Communication Department of Nicotine Dependence, [facility], in [place], [place] [address] [place] [phone] Felicity Martin M.A., L.P., C.T.T.S. [address] [place] [phone] Nicotine Dependence Social History Tobacco Use Types Packs/Day Years [...] file Gender Identity Female 01/08/2022 2:47 PM SALES ANALYST Sexual Orientation Straight 01/08/2022 2: 47 PM SALES ANALYST documented as of this encounter Plan of Treatment Not on file documented as of this encounter Visit Diagnoses Not on filedocumented in this encounter
--- OUTSIDE RECORDS SUMMARY | 2023-02-22 16:18 | XMS_ITS | Encounter Summary ---
Author Name Unknown Organization [facility] Address [address] [place] [address] Care Team Providers Care Professor Of Medicine Name Role Phone Unavailable Primary Care Provider Unavailabl e Encounter Details Date Type Department Care Team (Late st Contact Info) Description 06/13/2015 Historical Ophthalmology RST OPH Maricruz Garcia M.D. Social History Tobacco Use Types Packs/Day Years Used Date Smoking Tobacco: Never Assessed Sex and Gender Information Value Date Recorded Sex Assigned at Not on file Gender Identity Female 01/08/2022 2:47 PM PUBLIC SERVICE DIRECTOR Sexual Orientation Straight 01/08/2022 2: 47 PM PUBLIC SERVICE DIRECTOR documented as of this encounter Progress Notes * Maricruz Garcia M.D. - 06/13/2015 5:47 PM CDT Eye General CHIEF COMPLAINT s/p snowman graft HISTORY OF PRESENT ILLNESS SCB: Her eye feels scratchy and intermittently achy, but otherwise stable. She is on pred forte TIDand Vigamox 6x per day. Right eye is stable. 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 06/13/15: Paul negative. Well formed chamber, with normal IOP. Graft and sutures intact. Suture reaction most significant inferiorly, will continue pred forte TID and consider suture removal inferiorly at next visit. Plan: Continue vigamox every 4 hours left eye Continue pred forte TID RTC , sooner with any worsening symptoms as listed below. Discussed she should call us with any significant pain, worsening vision, worsening concerns beforenext follow up follow up- she understands. 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
--- OUTSIDE RECORDS SUMMARY | 2023-02-22 16:18 | XMS_ITS | Encounter Summary ---
Author Name Unknown Organization [facility] Address [address] [place] [address] Care Team Providers Care Circus Agent Name Role Phone Unavailable Primary Care Provider Unavailabl e Encounter Details Date Type Department Care Team (Late st Contact Info) Description 07/12/2015 Historical Ophthalmology RST OPH Eva Heard M.D. [address] [facility] [address] [place] [address] Social History Tobacco Use Types Packs/Day Years Used Date Smoking Tobacco: Never Assessed Sex and Gender Information Value Date Recorded Sex Assigned at Not on file Gender Identity Female 01/08/2022 2:47 PM CENTRAL SERVICE TECH Sexual Orientation Straight 01/08/2022 2: 47 PM CENTRAL SERVICE TECH documented as of this encounter Progress Notes * Eva Heard M.D. - 07/12/2015 1:55 PM CDT Eye General CHIEF COMPLAINT Follow up on the Left eye HISTORY OF PRESENT ILLNESS Patient is here for a follow up on the Therapeutic penetrating keratoplasty, left eye; States that the vision is the same since last visit. Patient denies ocular pain. Floaters alone; left eye; x 1 month; on and off. Denies Diplopia. Denies new concerns. EAA: Denies any pain it feels like my other eye. 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 5/2/16: Paul negative. Well formed chamber, with normal IOP. Graft and sutures intact. Suture reaction most significant inferiorly, will continue pred forte TID and consider suture removal inferiorly at next visit. 06/16/15: Paul negative, formed chamber, suture reaction on all original graft sutures, no loose sutures, discussed with LJM, continue current drops and return next week when TEST FIXTURE ASSEMBLER here. Seen with SCB today. 06/20/15: Paul negative, formed chamber, suture reaction decreased, seen with TEST FIXTURE ASSEMBLER, M Parasol occluder [facility], [facility], LOT [id number] 06/27/15: Paul negative, increased edema over snowman graft. Epi defect slightly larger. Much better moisture with punctal plug in place. Placed bandage lens (toric) today. Return in 1 week, sooner PRN 07/04/15: Paul negative, decreased edema over snowman graft, epi defect much smaller today. Replaced contact lens 07/12/15: Paul negative, stable edema over snowman graft, epi defect smaller today. Replaced contact lens Plan: Viagmox four times a day Continue pred forte three times a day Celluvisc four times a day and PRN Return next Saturday sooner with any significant pain, worsening vision, worsening concerns. 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
--- OUTSIDE RECORDS SUMMARY | 2023-02-22 16:18 | XMS_ITS | Encounter Summary ---
Author Name Unknown Organization [facility] Address [address] [place] [address] Care Team Providers Care Retort Cooler Name Role Phone Unavailable Primary Care Provider Unavailabl e Encounter Details Date Type Department Care Team (Late st Contact Info) Description 08/24/2015 Historical Ophthalmology RST OPH Deann Colby M.D. [address] [place] [phone] Social History Tobacco Use Types Packs/Day Years Used Date Smoking Tobacco: Never Assessed Sex and Gender Information Value Date Recorded Sex Assigned at Not on file Gender Identity Female 01/08/2022 2:47 PM EMC STORAGE ARCHITECT Sexual Orientation Straight 01/08/2022 2: 47 PM EMC STORAGE ARCHITECT documented as of this encounter Progress Notes * Deann Colby M.D. - 08/24/2015 9:50 AM CDT Eye General CHIEF COMPLAINT check up HISTORY OF PRESENT ILLNESS LAD: Eye seems to be doing fairly well, but patient notices white stuff on the eye that does come off. She also thinks the mattering is a little worse. Patient notes she is seeing some black specs inthe right unaffected eye. 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 08/03/15: Corneal edema continues to improve. No infectious-appearing infiltrates. There is mild vascular ingrowth around some sutures. Epi is intact. One loose suture at ~1:00, removed at slit lamp. Stop Vigamox BID and decrease PF to BID with liberal use of preservative free artificial tears. IOP remains acceptable. Return 4-5 weeks sooner with any significant pain, worsening vision, worsening concerns. Must come in when POLISHER SAND is here. Use fluorescein strips only, not [...] #4 Floaters, right eye CDM Reports - [facility] Id: [id number] Status: Fnl documented in this encounter Plan of Treatment Not on file documented as of this encounter Visit Diagnoses Not on filedocumented in this encounter
--- OUTSIDE RECORDS SUMMARY | 2023-02-22 16:18 | XMS_ITS | Encounter Summary ---
Author Name Unknown Organization [facility] Address [address] [place] [address] Care Team Providers Care Sql Database Administrator Name Role Phone Unavailable Primary Care Provider Unavailabl e Encounter Details Date Type Department Care Team (Late st Contact Info) Description 08/03/2015 Historical Ophthalmology RST OPH Eva Heard M.D. [address] [facility] 200 [place] [address] Social History Tobacco Use Types Packs/Day Years Used Date Smoking Tobacco: Never Assessed Sex and Gender Information Value Date Recorded Sex Assigned at Not on file Gender Identity Female 01/08/2022 2:47 PM RN PSYCH Sexual Orientation Straight 01/08/2022 2: 47 PM RN PSYCH documented as of this encounter Progress Notes * Eva Heard M.D. - 08/03/2015 9:08 AM CDT Eye General CHIEF COMPLAINT Follow up HISTORY OF PRESENT ILLNESS Patient states that the right eye is painful, and light sensitive. Left eye has stopped hurting since last week. Patient has been putting Prednisolone in her right eye she states it helps the pain. Patient states no other concerns at this time. EAA: For 2 days last week she had intermittent pain in the left eye. This has subsequently gone away completely. She attributes this to stopping Vigamox. When it started hurting she started taking the Vigamox 1-3x daily and this is when it stopped hurting. This morning the right eye started to be light sensitive. It aches. This has gotten better over thecourse of the morning but still persists. 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 06/13/15: Paul negative. Well formed chamber, with normal IOP. Graft and sutures intact. Suture reaction most significant inferiorly, will continue pred forte TID and consider suture removal inferiorly at next visit. 06/16/15: Paul negative, formed chamber, suture reaction on all original graft sutures, no loose sutures, discussed with LJM, continue current drops and return next week when BISQUE PLACER here. Seen with SCB today. 06/20/15: Paul negative, formed chamber, suture reaction decreased, seen with BISQUE PLACER, M Parasol occluder placed in left lower [employer], expires 2018, LOT [id number] 06/27/15: Paul negative, increased edema over snowman [...] and stop the vigamox, watch IOP closely 08/03/15: MIld stable edema over graft, epi in place, feels better with Vigamox, will continue, IOP remains low, Plan: Continue pred forte three times a day Celluvisc four times a day and PRN Return 2-3 weeks sooner with any significant pain, worsening vision, worsening concerns. 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 Discussed starting warm compresses. Would have a low threshold for adding doxycycline but patient prefers not to start today. 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
--- OUTSIDE RECORDS SUMMARY | 2023-02-22 16:18 | XMS_ITS | Encounter Summary ---
Author Name Unknown Organization [facility] Address [address] [place] [address] Care Team Providers Care Autographer Name Role Phone Unavailable Primary Care Provider Unavailabl e Encounter Details Date Type Department Care Team (Late st Contact Info) Description 01/23/2016 Historical Ophthalmology RST OPH Deann Colby M.D. [address] [place] [phone] Social History Tobacco Use Types Packs/Day Years Used Date Smoking Tobacco: Never Assessed Sex and Gender Information Value Date Recorded Sex Assigned at Not on file Gender Identity Female 01/08/2022 2:47 PM SILO TENDER Sexual Orientation Straight 01/08/2022 2: 47 PM SILO TENDER documented as of this encounter Progress Notes * Deann Colby M.D. - 01/23/2016 1:34 PM CST Eye General CHIEF COMPLAINT recheck left eye HISTORY OF PRESENT ILLNESS Patient states the vision in left eye is worse than last visit. Patient states mattering left>right eyes, increased since last visit. 3-4 times daily. Patient states pain in left eye at night only, 03/23. Patient states ran out of Vigamox on 01/21/2016. LAD: Patient thinks mattering is getting worse. 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 No infectious-appearing infiltrates. Stable mild vascular ingrowth around some sutures. Epi is intact. Loose suture superiorly and inferotemporal - 2 sutures removed at slit lamp today. No need to continue Vigamox. Continue PF to once daily with liberal use of preservative free artificial tears. IOP remains acceptable - watch closely due to angle closure. Seen with Dr. Payton. RTC 6-8 weeks/sooner with any significant pain, worsening vision, worsening concerns. Must come in when CLIENT RESOLUTION SPECIALIST is here (preferably as COS staff). Use [...] right eye CDM Reports - [facility] Id: [id number] Status: Fnl documented in this encounter Plan of Treatment Not on file documented as of this encounter Visit Diagnoses Not on filedocumented in this encounter
--- OUTSIDE RECORDS SUMMARY | 2023-02-22 16:18 | XMS_ITS | Encounter Summary ---
Author Name Unknown Organization [facility] Address [address] [place] [address] Care Team Providers Care Railroad Crossing Protection Maintainer Name Role Phone Unavailable Primary Care Provider Unavailabl e Encounter Details Date Type Department Care Team (Late st Contact Info) Description 03/12/2016 Historical Ophthalmology RST OPH Daniel Clements M.D. [address] [place] [phone] Social History Tobacco Use Types Packs/Day Years Used Date Smoking Tobacco: Never Assessed Sex and Gender Information Value Date Recorded Sex Assigned at Not on file Gender Identity Female 01/08/2022 2:47 PM SAFETY INVESTIGATOR Sexual Orientation Straight 01/08/2022 2: 47 PM SAFETY INVESTIGATOR documented as of this encounter Progress Notes * Daniel Clements M.D. - 03/12/2016 1:34 PM CST Eye General CHIEF COMPLAINT check up HISTORY OF PRESENT ILLNESS Here for check up and photos. Feels vision is at times better than last visit; other times worse; fluxuates throughout the day. Currently denies any pain. Pain on the way here; 4/10. Notes 3 nights ago; left eye was itching like crazy. Cold washcloth helped. States she needs a refill on Prednisolone. Still having mattering after she uses Prednisone; less than what it was before. IMPRESSION / REPORT / PLAN 12 Mar [...] angle closure. Seen with Dr. Payton. RTC in May with martha Colby with any significant pain, worsening vision, worsening concerns. Must come in when SLEEP TECHNICIAN is here (preferably as COS staff). Use [...] right eye CDM Reports - [facility] Id: [id number] Status: Fnl documented in this encounter Plan of Treatment Not on file documented as of this encounter Visit Diagnoses Not on filedocumented in this encounter
--- OUTSIDE RECORDS SUMMARY | 2023-02-22 16:18 | XMS_ITS | Encounter Summary ---
Author Name Unknown Organization [facility] Address [address] [place] [address] Care Team Providers Care Lamination Spinner Name Role Phone Unavailable Primary Care Provider Unavailabl e Encounter Details Date Type Department Care Team (Late st Contact Info) Description 06/11/2016 Historical Ophthalmology RST OPH Deann Colby M.D. [address] [place] [phone] Social History Tobacco Use Types Packs/Day Years Used Date Smoking Tobacco: Never Assessed Sex and Gender Information Value Date Recorded Sex Assigned at Not on file Gender Identity Female 01/08/2022 2:47 PM CLINICAL QUALITY ASSURANCE ASSOCIATE Sexual Orientation Straight 01/08/2022 2: 47 PM CLINICAL QUALITY ASSURANCE ASSOCIATE documented as of this encounter Progress Notes * Deann Colby M.D. - 06/11/2016 1:18 PM CDT Eye General CHIEF COMPLAINT recheck corneal ulcer, left eye HISTORY OF PRESENT ILLNESS Patient here for recheck corneal ulcer, left eye and suture removal. Patient states the cloudy vision in left eye is the same. Patient states itching in left eye ongoing mostly at night. Patient denies ocular pain. LAD: Left eye continues to itch; using PF once daily and artificial tears as needed; vision stable;no new concerns. IMPRESSION / REPORT / PLAN [...] today nearly 1 year after surgery with BLUEPRINT ASSEMBLER. Exam is stable with 1 loose suture. IOP stable. Removed 11 sutures in total today. Continue prednisolone 1 x daily. Refresh tears 4x daily. RTC 4-6 weeks with refraction when Dr. Payton is in clinic. #2 Background diabetic retinopathy, right eye Discussed [...] right eye CDM Reports - [facility] Id: [id number] Status: Fnl documented in this encounter Plan of Treatment Not on file documented as of this encounter Visit Diagnoses Not on filedocumented in this encounter
--- OUTSIDE RECORDS SUMMARY | 2023-02-22 16:18 | XMS_ITS | Encounter Summary ---
Author Name Unknown Organization [facility] Address [address] [place] [address] Care Team Providers Care Upholstery Technician Name Role Phone Unavailable Primary Care Provider Unavailabl e Encounter Details Date Type Department Care Team (Late st Contact Info) Description 10/13/2015 Historical Ophthalmology RST OPH Deann Colby M.D. [address] [place] [phone] Social History Tobacco Use Types Packs/Day Years Used Date Smoking Tobacco: Never Assessed Sex and Gender Information Value Date Recorded Sex Assigned at Not on file Gender Identity Female 01/08/2022 2:47 PM CORK INSULATOR HELPER Sexual Orientation Straight 01/08/2022 2: 47 PM CORK INSULATOR HELPER documented as of this encounter Progress Notes * Deann Colby M.D. - 10/13/2015 8:07 AM CDT Eye General CHIEF COMPLAINT redness, mattery, soreness, left eye HISTORY OF PRESENT ILLNESS redness, irritated, left eye; ongoing for 6 days. Mater buildup, white in color. Pain; left eye; x several days; on and off; symptoms reported at level of 4/10 at its worst. 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 13 Oct 2015: Corneal edema continues to improve on main graft, stable on small graft. No infectious-appearing infiltrates. Stable mild vascular ingrowth around some sutures. Epi is intact. Loose suture inferotemporally but no surrounding infiltrate. Will restart Vigamox BID (discussed Ocuflox, but patient prefers Vigamox). Continue PF BID with liberal use of preservative free artificial tears. IOP remains acceptable. Keep upcoming return appointment/sooner with any significant pain, worsening vision, worsening concerns. Must come in when COMMUNITY EDUCATION SPECIALIST is here. Use fluorescein strips only, not [...] #4 Floaters, right eye CDM Reports - [facility] Id: [id number] Status: Fnl documented in this encounter Plan of Treatment Not on file documented as of this encounter Visit Diagnoses Not on filedocumented in this encounter
--- OUTSIDE RECORDS SUMMARY | 2023-02-22 16:18 | XMS_ITS | Encounter Summary ---
Author Name Unknown Organization [facility] Address [address] [place] [address] Care Team Providers Care Software Trainer Name Role Phone Unavailable Primary Care Provider Unavailabl e Encounter Details Date Type Department Care Team (Latest Contact Info) Description 05/14/2022 Clinical Communication Department of Ophthalmology in [place], [place] [address] [place] [phone] Luma Solis M.D., M.S. [address] [place] [phone] Social History Tobacco Use Types Packs/Day Years [...] file Gender Identity Female 01/08/2022 2:47 PM COMPUTER NETWORK AND SYSTEMS ENGINEER Sexual Orientation Straight 01/08/2022 2: 47 PM COMPUTER NETWORK AND SYSTEMS ENGINEER documented as of this encounter Plan of Treatment Not on file documented as of this encounter Visit Diagnoses Not on filedocumented in this encounter
--- OUTSIDE RECORDS SUMMARY | 2023-02-22 16:19 | XMS_ITS | Encounter Summary ---
Author Name Unknown Organization [facility] Address [address] [place] [address] Care Team Providers Care Hairspring I Inspector Name Role Phone Tyrell Schneider MD Primary Care Provider [phone] Encounter Details Date Type Department Care Team Description 01/28/2023 Treatment [facility] [address] [place] [phone] Ana Rosa APRN-CNP [address] [place] [address] Social History Tobacco Use Types Packs/Day Years Used Date Smoking Tobacco: Never Assessed Sex and Gender Information Value Date Recorded Sex Assigned at Not on file Gender Identity Not on file Sexual Orientation Not on file documented as of this encounter Miscellaneous Notes * Dialysis Note - Ana Rosa APRN-CNP - 01/28/2023 11:22 AM PHARMACEUTICAL WORKER Date: Jan 28, 2023 Patient Name: Maricruz Vanegas : 1945 Chart #: [id number] Sex: F This patient was personally seen for a complete visit as part of routine monthly dialysis care. A review of the dialysis treatment, blood pressure, estimated dry weight and recent lab values was made. These were discussed with the patient and staff as necessary. Treatment Data for 01/28/2023 started at:10:48 AM Dialyzer: 160NRe Optiflux Na: 137 mEq/L Bicarb: 31 mEq/L Dialysate: 2.0 K, 2.5 Ca, 1.0 Mg, 100 Dextrose (G2251) Dialysate/Machine Temp (prescribed): 37 C Dialysate/Machine Temp (actual): 37 C BFR (prescribed): 350 BFR (actual): n/a Prescribed time: 03:00 EDW: 42 kg Access Type: AVFistula-Standard/Left Upper Arm Pre Dialysis Vitals (for 01/28/2023 10:36 AM ) Pre BP (sit): 147/54 Pre Wt: 42.6 kg Temp: 97.9 F Post Dialysis Vitals (for 01/28/2023 1:59 PM ) Post BP (sit): 199/81 Post Wt: 41.9 kg Chairside data as of 01/28/2023 1:59 PM Last 3 Treatments 01/28/2023 01/25/2023 01/23/2023 EDW (kg) 42 42 42 Weight Pre (kg) 42.6 43.4 42.7 Weight Post (kg) 41.9 42 41.9 Dialytic Weight Loss (kg) -0.7 -1.4 -0.8 EDW Deviation (kg) -0.1 0 -0.1 BP Sit Pre 147/54 159/69 147/61 BP Sit Post 199/81 175/66 192/83 UF Rate (mL/kg/hr) 6 12 7 Prescribed BFR 350 350 350 Average Delivered BFR 350 350 350 Prescribed Treatment Time 03:00 03:00 03:00 Actual Treatment Time 02:50 02:46 02:52 Last 3 Values 01/16/2023 01/11/2023 12/21/2022 Access Flow 388 383 378 Treatment Medication Orders Medication Sig Start Date End Date Heparin Sodium (Porcine) 1,000 Units/mL Systemic 1000 units IVP Every Treatment 12/10/2022 12/09/2023 Heparin Sodium (Porcine) 1,000 Units/mL Systemic 1000 units IVP Every Treatment 12/10/2022 12/09/2023 EYE GLASS FRAME POLISHER: Gabriel Mena MD LOCATION: [place] [phone] SCHEDULE: -W- 2nd Shift EDW: kg. DIALYZER: HD DURATION: NEEDLE SIZE: ANTICOAG: BATH: QB: ml/min QD: ml/min Subjective Tolerating dialysis well. 01/18: She feels well today. She has had intermittent HAs with high BP recently, terrible RYAN recently when she thinks she missed am BP meds (including clonidine) and had SBP 200 and severe RYAN. This resolved with improved BP. She is unsure about returning to PD. HD going fairly well. 12/21/22: Maricruz is a PD patient that follows with me. She is now on hemodialysis at least short term due to recent hospitalizations and peritonitis. She was admitted at [place] from 11/28-12/06/22 with acute peritonitis with Corynebacterium stratum, saw [facility] nephrology, saw Carlos Giles from [place], PD catheter removed, put on HD through AVF, [facility] at discharge through 12/14 (completed) and I talked to [facility] nephrology at that time and agreed to put her back on IHD at my unit here. Then shewas re-admitted from 12/12-12/18/22 at for acute on chronic anemia, Hgb to 4, hematoma at prior PDremoval site, non- bleeding duodenal ulcers on EGD, no hemolysis, got 2u blood and Hgb improved and stable. Hgb 7.1 on discharge. She feels fatigued and weak but overall much better. She had COVID during that time as well she reports. She wants to go back to PD when feasible. She is still urinating although somewhat less she thinks than before. 06/11: She's doing well and feeling great except that she is having cramps near the end of each run. This is despite no fluid removal, helps to give a little saline back. No other new symptoms. She got shipment of PD bags today. She starts PD training next week! Our RN Christina told me that Maricruz told her that I told her that she had to do PD and we discussed this today that I wanted to be clear that I was encouraging her to try PD given residual kidney function, good candidate to do this, benefits of being a more continuous therapy, and side effects so far with hemodialysis (cramping, mild RYAN's, fatigue after). She understands and does want to do PD as she is particularlyinterested in retaining her residual kidney function, which is more likely doing PD. 05/28: HD going ok, gets symptoms toward end of run including RYAN. Had PD catheter placed, no pain now, to train starting June 16! 05/14: She had a bad infiltrate of her access on Saturday with 17g needles, had to cancel dialysis, feels better today. I watched needles go in today, went smoothly, good BFR achieve for 17g needles. She has good residual function, so we did not schedule extra treatment or access placement. She has had cramps and RYAN's and feeling unwell with dialysis, wants to do PD and has appt on Saturday[facility] for consult to consider PD catheter placement. 05/07: Maricruz started dialysis this month. She has AVF that is working well. 17g needles are being used. She has residual kidney function, not gaining between treatments. She hasn't felt that well yet, is having some RYAN's and blurry vision and wiped out after dialysis and cramps with any fluid removal. She is interested in doing PD now, was educated, wants to start soon. She's had 3 c-sections, no other abdominal surgeries. She does have some constipation, but tolerates stools softeners. Advanced Practitioner Subjective TAKE OUT WAITER/WAITRESS 01/28/2023: Spoke with patient on dialysis Tolerating hemodialysis well. Denies SOB, chest pain,or dizziness. Has been getting to EDW. AVF functional; no reported issues. BP elevated. Continue tochallenge EDW. TAKE OUT WAITER/WAITRESS 12/31/2022: Patient seen on dialysis. Now on HD after PD cath infection. Tolerating hemodialysiswell. Denies SOB, chest pain, or dizziness. Has been getting to EDW. AVF functional; no reported issues. BP stable. Continue to challenge EDW. Review of Systems None reported. except above Problem List Description ICD9 Code ICD10 Code End stage renal disease 585.6 N18.6 Dependence on renal dialysis V45.11 Z99.2 Exam Respiratory - Clear to auscultation bilaterally. Cardiovascular - Regular rate. Regular rhythm. Edema - Trace edema. Access - LUE AVF with good t/b, non-aneurysmal Medication List Medication Sig Start Date albuterol sulfate 2.5 mg/3 mL (0.083 %) solution for nebulization Take 1 vial as directed every four hours as needed 04/21/2018 amlodipine 10 mg tablet Take 1 tablet by mouth twice a day 04/21/2018 Auryxia (ferric citrate) 210 mg iron tablet Take 2 tablet by mouth three times a day with meals clonidine HCl 0.1 mg tablet Take 3 tablet by mouth once a day. 3 tabs HS furosemide 40 mg tablet Take 1 tablet by mouth once a day as directed glipizide 10 mg tablet extended release 24hr Take 1 tablet by mouth once a day. 1 tab in am and 1 tab in pm 04/21/2018 labetalol 300 mg tablet Take 2 tablet by mouth twice a day 01/18/2023 Miralax (polyethylene glycol 3350) 17 gram powder in packet Take 1 packet dissolved in water once aday as directed. in 8oz liquid take daily as needed for constipation 04/21/2018 moxifloxacin 0.5% drops Instill 2 drop into affected eye every two hours mupirocin 2% ointment Apply 1 a small amount to affected area once a day. Apply a small amount to dialysis exit site daily pantoprazole 40 mg tablet,delayed release (DR/EC) 1 tablet by mouth twice a day one hour before meals repaglinide 1 mg tablet Take 1 tablet by mouth three times a day with meals 12/14/2020 Senna Lax (sennosides) 8.6 mg tablet Take 2 tablet by mouth once a day 04/21/2018 sorbitol 70% solution Take 30 ml by mouth once a day as needed. take as needed for constipation triamcinolone acetonide 0.1% lotion Apply a small amount to skin twice a day as needed 04/21/2018 Allergy List Allergen Reaction Reaction Severity Onset Date ampicillin Hives atenolol Skin rash atorvastatin Back pain fish oil Skin rash gatifloxacin Nausea/Vomiting gemfibrozil Itching hydrochlorothiazide Flushing (Red Skin) lisinopril Skin rash losartan Itching niacin Itching pravastatin Back pain simvastatin Back pain Medications reviewed and no changes were made. Treatment and Adequacy Assessment BUN mg/dL 41 (01/18/23) 29 (01/16/23) 49 (01/07/23) 62 (12/12/22) 72 (11/28/22) UREA NITROGEN (MG/DL) IN SER/PLAS - POST DIALYSIS mg/dL 8 (01/18/23) 8 (01/07/23) URR % 80 (01/18/23) 84 (01/07/23) spKt/V Gotch 1.83 (01/18/23) 2.01 (01/07/23) eKdrt/V 2.34 (01/18/23) 2.48 (01/07/23) spKt/V (Daugirdas II) 1.8000 (01/18/23) 2.0200 (01/07/23) Dialysis is adequate. Achieves prescribed time - Yes Achieves prescribed frequency - Yes Continue current prescription. Vascular Access Assessment Type of access: Fistula Had AVF placed in Jan 2018, mature and working well. Never had catheter PD catheter placed 05/2018 at [facility], removed for peritonitis 11/2022 Anemia Assessment HEMOGLOBIN (G/DL) IN BLOOD g/dL 9.8 (01/23/23) 9.8 (01/16/23) 9.5 (01/09/23) 9.5 (01/07/23) 7.6 (12/21/22) PLATELETS 1000/mcL 262 (10/24/22) FERRITIN ng/mL 5007 (12/12/22) 3454 (11/28/22) 1573 (08/27/22) 1626 (05/16/22) 1034 (02/14/22) TRANSFERRIN SAT% % 19 (01/16/23) 53 (12/12/22) 45 (11/28/22) 62 (10/24/22) 41 (10/10/22) Hemoglobin is below goal. Iron Saturation is below goal. Ferritin is above goal. Will adjust ELA and intravenous iron per protocol. No iron with very high ferritin Hgb improving after prior bleed requiring PRBC's, now improving with ELA therapy Nutritional and Metabolic Assessment ALBUMIN (G/DL) g/dL 3.4 (01/16/23) 2.8 (12/12/22) 3.3 (11/28/22) 3.3 (10/24/22) 3.6 (10/10/22) Sodium mEq/L 135 (01/16/23) 136 (12/12/22) 126 (11/28/22) 134 (10/24/22) 136 (10/10/22) POTASSIUM (MMOL/L) IN SER/PLAS mEq/L 4.9 (01/16/23) 4.4 (12/26/22) 3.2 (12/12/22) 5.6 (11/28/22) 4.7 (10/24/22) BICARBONATE (CO2) mEq/L 28 (01/16/23) 28 (12/12/22) 24 (11/28/22) 28 (10/24/22) 27 (10/10/22) 25 OH VITAMIN D ng/mL 21.3 (12/12/22) 32.6 (02/14/22) Albumin is below goal. Encourage high-biological value protein intake. Potassium is at goal. Bicarbonate is above goal. Decrease bicarbonate in dialysate. Bone and Mineral Metabolism Assessment CALCIUM mg/dL 8.9 (01/16/23) 8.1 (12/12/22) 8.6 (11/28/22) 8.9 (10/24/22) 8.9 (10/10/22) CALCIUM (MG/DL) CORRECTED FOR ALBUMIN IN SER/PLAS mg/dL 9.4 (01/16/23) 9.1 (12/12/22) 9.2 (11/28/22) 9.5 (10/24/22) 9.2 (10/10/22) PHOSPHATE (MG/DL) IN SER/PLAS mg/dL 3.1 (01/16/23) 6.4 (12/26/22) 1.8 (12/12/22) 5.3 (11/28/22) 4.4 (10/24/22) CALCIUM PHOSPHORUS PRODUCT, COR 29 (01/16/23) 16 (12/12/22) 49 (11/28/22) 42 (10/24/22) 41 (10/10/22) IPTH pg/mL 376 (12/12/22) 276 (11/28/22) 305 (08/27/22) 37 (07/24/22) 240 (06/13/22) Corrected Calcium is at goal. Phosphorous is at goal. Intact PTH is at goal. Cardiovascular Assessment Blood pressures reviewed and are not at goal, see below. Intradialytic weight gains are appropriate. Estimated dry weight is appropriate. Increase labetalol to 600mg bid Discussed importance of good compliance with medications and NOT missing clonidine in particular Transplant Status: Patient is not a candidate. Age, co-morbidities, nicotine dependence with COPD Resuscitation Status She will continue HD for now Monitor BP; encourage medication compliance ANA ROSA NP [ Signed And locked electronically On 01/29/2023 at 11:26:09 AM ] Transcribed: ANA ROSA ( 01/29/2023 ) documented in this encounter Plan of Treatment Not on file documented as of this encounter Visit Diagnoses Not on filedocumented in this encounter Care Teams Hairspring I Inspector Relationship Specialty Start Date End Date Tyrell Schneider MD [address] [place] [address] PCP - General 10/27/18 documented as of this encounter
--- OUTSIDE RECORDS SUMMARY | 2023-02-22 16:19 | XMS_ITS | Encounter Summary ---
Author Name Unknown Organization [facility] Address [address] [place] [address] Care Team Providers Care Copywriting Intern Name Role Phone Unavailable Primary Care Provider Unavailabl e Encounter Details Date Type Department Care Team (Late st Contact Info) Description 05/12/2015 Historical Ophthalmology RST OPH Frantz Lee M.D. [address] [place] [phone] Social History Tobacco Use Types Packs/Day Years Used Date Smoking Tobacco: Never Assessed Sex and Gender Information Value Date Recorded Sex Assigned at Not on file Gender Identity Female 01/08/2022 2:47 PM TUCKING MACHINE OPERATOR Sexual Orientation Straight 01/08/2022 2: 47 PM TUCKING MACHINE OPERATOR documented as of this encounter Progress Notes * Frantz Lee M.D. - 05/12/2015 10:09 AM CDT Eye General CHIEF COMPLAINT recheck HISTORY OF PRESENT ILLNESS Recheck left eye; corneal ulcer. Pain today 7/10; on and off. Ice pack seems to help. No new concerns. Still having light sensitivity. IMPRESSION / REPORT / PLAN #1 Corneal ulcer, left eye Assessment: Patient seen with Dr. Jimenes. 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 She needs inpatient admission for hourly antibiotic drops. 09 May 2015 B-scan left eye: anterior vitreous opacities and strands, probable partial posterior vitreous detachment, retina attached. LS 05/09: Discussed with Dr. Garcia. Slit lamp photos obtained. Plan: Continue fortified vancomycin and tobramycin alternating q 15 minutes (each drop every 30 minutes) while awake. Overnight, can do each drop Q1 hour, 5 minutes appart. Cyclogyl BID RTC tomorrow. 05/10: Cultures growing gram negative bacilli resembling pseudomonas. Patient seen with Dr. Crews. Plan: Tobramycin 15mg/ml Q20 minutes Ocuflox Q 15 minutes RTC tomorrow 05/11: Patient seen with Dr. Payton. Size of ulcer is about the same. We will plan to keep the drops the same, and anticipate therapeutic PK tomorrow. NPO at midnight. Will have her come to clinic tomorrow at 7:30 am DIAGNOSIS #1 Corneal ulcer, left eye CDM Reports - [facility] Id: [id number] Status: Fnl documented in this encounter Plan of Treatment Not on file documented as of this encounter Visit Diagnoses Not on filedocumented in this encounter
--- OUTSIDE RECORDS SUMMARY | 2023-02-22 16:19 | XMS_ITS | Encounter Summary ---
Author Name Unknown Organization [facility] Address [address] [place] [address] Care Team Providers Care Quantitative Analyst Developer Name Role Phone Tyrell Schneider MD Primary Care Provider [phone] Encounter Details Date Type Department Care Team Description 02/15/2023 Treatment [facility] [address] [place] [phone] Ana Rosa APRN-CNP [address] [place] [address] Social History Tobacco Use Types Packs/Day Years Used Date Smoking Tobacco: Never Assessed Sex and Gender Information Value Date Recorded Sex Assigned at Not on file Gender Identity Not on file Sexual Orientation Not on file documented as of this encounter Miscellaneous Notes * Dialysis Note - Ana Rosa APRN-CNP - 02/15/2023 11:13 AM DISPOSAL OPERATOR Date: Feb 15, 2023 Patient Name: Maricruz Vanegas : 1945 Chart #: [id number] Sex: F This patient was personally seen for a complete visit as part of routine monthly dialysis care. A review of the dialysis treatment, blood pressure, estimated dry weight and recent lab values was made. These were discussed with the patient and staff as necessary. Treatment Data for 02/15/2023 started at:10:51 AM Dialyzer: 160NRe Optiflux Na: 137 mEq/L Bicarb: 29 mEq/L Dialysate: 2.0 K, 2.5 Ca, 1.0 Mg, 100 Dextrose (G2251) Dialysate/Machine Temp (prescribed): 37 C Dialysate/Machine Temp (actual): 36.8 C BFR (prescribed): 450 BFR (actual): 300 Prescribed time: 03:00 EDW: 42 kg Access Type: Active (In Use):AVFistula-Standard/Left Upper Arm Pre Dialysis Vitals (for 02/15/2023 10:42 AM ) Pre BP (sit): 180/63 Pre Wt: 42.7 kg Temp: 97.3 F Post Dialysis Vitals (for 02/13/2023 1:44 PM ) Post BP (sit): 175/72 Post Wt: 41.7 kg Current Dialysis Vitals (for 02/15/2023 11:01 AM ) BP (sit): 170/68 AP(-) / COMMUNITY HEALTH PROGRAM COORDINATOR: 92/152 Pulse: 60 Chairside data as of 02/15/2023 11:01 AM Last 3 Treatments 02/13/2023 02/10/2023 02/08/2023 EDW (kg) 42 42 42 Weight Pre (kg) 43.6 43.4 42.7 Weight Post (kg) 41.7 41.9 41.8 Dialytic Weight Loss (kg) -1.9 -1.5 -0.9 EDW Deviation (kg) -0.3 -0.1 -0.2 BP Sit Pre 143/56 177/73 188/76 BP Sit Post 175/72 176/75 191/81 UF Rate (mL/kg/hr) 16 12 7 Prescribed BFR 450 450 450 Average Delivered BFR 450 450 450 Prescribed Treatment Time 03:00 03:00 03:00 Actual Treatment Time 02:46 03:00 03:00 Last 3 Values 01/16/2023 01/11/2023 12/21/2022 Access Flow 388 383 378 Treatment Medication Orders Medication Sig Start Date End Date Heparin Sodium (Porcine) 1,000 Units/mL Systemic 1000 units IVP Every Treatment 12/10/2022 12/09/2023 Heparin Sodium (Porcine) 1,000 Units/mL Systemic 1000 units IVP Every Treatment 12/10/2022 12/09/2023 Mircera 60 mcg IVP Every 2 weeks During Dialysis 01/30/2023 01/29/2024 SANITARY ENGINEER: Gabriel Mena MD LOCATION: [place] [phone] SCHEDULE: -W- 2nd Shift EDW: kg. DIALYZER: [...] hospitalizations and peritonitis. She was admitted at [place] from 11/28-12/06/22 with acute peritonitis with Corynebacterium stratum, saw [facility] nephrology, saw Carlos Giles from [place], PD catheter removed, put on HD through AVF, [place] at discharge through 12/14 (completed) and I talked to [facility] nephrology at that time and agreed to [...] [facility]. [...] but tolerates stools softeners. Advanced Practitioner Subjective CRIME ANALYST 02/15/2023: Patient seen on dialysis. Doing well. Has been cutting run due to transportation issues. Denies SOB, chest pain, or dizziness. Has been getting to EDW. AVF functional; no reported issues. BP stable. KT/v at goal; will consider decreasing time by 15 min. Continue to challenge EDW. CRIME ANALYST 01/28/2023: Spoke with patient on dialysis Tolerating hemodialysis well. Denies SOB, chest pain,or dizziness. Has been getting to EDW. AVF functional; no reported issues. BP elevated. Continue tochallenge EDW. CRIME ANALYST 12/31/2022: Patient seen on dialysis. Now on [...] made. Treatment and Adequacy Assessment BUN mg/dL 46 (02/13/23) 41 (01/18/23) 29 (01/16/23) 49 (01/07/23) 62 (12/12/22) UREA NITROGEN (MG/DL) IN SER/PLAS - POST DIALYSIS mg/dL 7 (02/13/23) 8 (01/18/23) 8 (01/07/23) URR % 85 (02/13/23) 80 (01/18/23) 84 (01/07/23) spKt/V Gotch 1.83 (01/18/23) 2.01 (01/07/23) eKdrt/V 2.34 (01/18/23) 2.48 (01/07/23) spKt/V (Daugirdas II) 1.8000 (01/18/23) 2.0200 (01/07/23) Dialysis is adequate. Achieves prescribed time - Yes Achieves prescribed frequency - Yes Continue current prescription. CRIME ANALYST 02/15/2023: Ok to decrease time by 15 min Vascular Access Assessment Type of access: Fistula Had AVF placed in Jan 2018, mature and working well. Never had catheter PD catheter placed 05/2018 at [facility], removed for peritonitis 11/2022 Anemia Assessment HEMOGLOBIN (G/DL) IN BLOOD g/dL 10.6 (02/13/23) 10.5 (02/06/23) 10.3 (01/30/23) 9.8 (01/23/23) 9.8 (01/16/23) PLATELETS 1000/mcL 262 (10/24/22) FERRITIN ng/mL 5007 (12/12/22) 3454 (11/28/22) 1573 (08/27/22) 1626 (05/16/22) TRANSFERRIN SAT% % 33 (02/13/23) 19 (01/16/23) 53 (12/12/22) 45 (11/28/22) 62 (10/24/22) Hemoglobin is at goal. Iron Saturation is below goal. Ferritin is above goal. Will adjust ELA and intravenous iron per protocol. No iron with very high ferritin Hgb improving after prior bleed requiring PRBC's, now improving with ELA therapy Nutritional and Metabolic Assessment ALBUMIN (G/DL) g/dL 3.3 (02/13/23) 3.4 (01/16/23) 2.8 (12/12/22) 3.3 (11/28/22) 3.3 (10/24/22) Sodium mEq/L 134 (02/13/23) 135 (01/16/23) 136 (12/12/22) 126 (11/28/22) 134 (10/24/22) POTASSIUM (MMOL/L) IN SER/PLAS mEq/L 5.0 (02/13/23) 4.9 (01/16/23) 4.4 (12/26/22) 3.2 (12/12/22) 5.6 (11/28/22) BICARBONATE (CO2) mEq/L 30 (02/13/23) 28 (01/16/23) 28 (12/12/22) 24 (11/28/22) 28 (10/24/22) 25 OH VITAMIN D ng/mL 21.3 (12/12/22) Albumin is below goal. Encourage high-biological value protein intake. Potassium is at goal. Bicarbonate is above goal. Decrease bicarbonate in dialysate. Bone and Mineral Metabolism Assessment CALCIUM mg/dL 8.5 (02/13/23) 8.9 (01/16/23) 8.1 (12/12/22) 8.6 (11/28/22) 8.9 (10/24/22) CALCIUM (MG/DL) CORRECTED FOR ALBUMIN IN SER/PLAS mg/dL 9.1 (02/13/23) 9.4 (01/16/23) 9.1 (12/12/22) 9.2 (11/28/22) 9.5 (10/24/22) PHOSPHATE (MG/DL) IN SER/PLAS mg/dL 4.3 (02/13/23) 3.1 (01/16/23) 6.4 (12/26/22) 1.8 (12/12/22) 5.3 (11/28/22) CALCIUM PHOSPHORUS PRODUCT, COR 39 (02/13/23) 29 (01/16/23) 16 (12/12/22) 49 (11/28/22) 42 (10/24/22) IPTH pg/mL 376 (12/12/22) 276 (11/28/22) 305 [...] NP [ Signed And locked electronically On 02/15/2023 at 11:17:13 AM ] Transcribed: ANA ROSA ( 02/15/2023 ) documented in this encounter Plan of Treatment Not on file documented as of this encounter Visit Diagnoses Not on filedocumented in this encounter Care Teams Quantitative Analyst Developer Relationship Specialty Start Date End Date Tyrell Schneider MD [address] [place] [address] PCP - General 10/27/18 documented as of this encounter
--- OUTSIDE RECORDS SUMMARY | 2023-02-22 16:19 | XMS_ITS | Encounter Summary ---
Author Name Unknown Organization [facility] Address [address] [place] [address] Care Team Providers Care Medical Reimbursement Manager Name Role Phone Unavailable Primary Care Provider Unavailabl e Encounter Details Date Type Department Care Team (Late st Contact Info) Description 05/13/2015 Historical Ophthalmology RST OPH Frantz Lee M.D. [address] [place] [phone] Social History Tobacco Use Types Packs/Day Years Used Date Smoking Tobacco: Never Assessed Sex and Gender Information Value Date Recorded Sex Assigned at Not on file Gender Identity Female 01/08/2022 2:47 PM WASH TANK TENDER Sexual Orientation Straight 01/08/2022 2: 47 PM WASH TANK TENDER documented as of this encounter Progress Notes * Frantz Lee M.D. - 05/13/2015 7:11 AM CDT Eye General CHIEF COMPLAINT follow up Corneal ulcer, left eye HISTORY OF PRESENT ILLNESS The patient is a 69 year old female here today for a follow up regarding Corneal ulcer, left eye. Patient notes that she is unable to see anyhting out of her left eye this morning; right eye is slightly blurry. Pain today 8/10; left eye; ice pack still helping; used one off and on throughout the night. AAT: Lots of pain last night. 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 Currently on day 3- first day got 500 mg then 250 mg daily thereafter. Plan to finish 10 day course and needs outpatient Rx. 09 May 2015 B-scan left eye: anterior vitreous opacities and strands, probable partial posterior vitreous detachment, retina attached. LS Plan for PK today with Dr. Payton and Orquidea. RBA discussed and patient agrees. Will stay inpatient overnight and be seen and discharged by Dr. Garcia tomorrow am. To be discharged on: -ciprofloxacin Q2 hours -keep shield in place -Also on PO levaquin 250 mg daily. Currently on day 3- first day got 500 mg then 250 mg daily thereafter. Plan to finish 10 day course and needs outpatient Rx. Return with Dr. Heard on Saturday am. V only Of note, her blood sugars have been high throughout this admission. I ordered an a1c to be checked today. She is only on metformin at home and did have a hypoglycemic episode with insulin given during this hospital stay. We will recommend that she follow with her PCP for diabetes management. WORT EXTRACTOR ([id number]): I interviewed and examined the patient and agree with the recommended plan. Therapeutic PK, general anesthesia. Discussed the goal is to remove infection and salvage eye and that visual recovery is secondary; she understands. I discussed the risks, benefits and alternatives to corneal transplantation in detail with the patient and whoever else was present. The patient verbalizes understanding and wishes to proceed with surgery. Also discussed the necessity of other members of the surgical team participating in the interventional procedure. Some of the risks discussed include loss of vision, infection, intraoperative hemorrhage, inflammation, postoperative glaucoma, graft rejection, graft failure, postoperative anisometropia, irregular or high astigmatism, and the possible need to wear a rigid contact lens for optimal vision. DIAGNOSIS #1 Corneal ulcer, left eye CDM Reports - [employer] Id: [id number] Status: Fnl documented in this encounter Plan of Treatment Not on file documented as of this encounter Visit Diagnoses Not on filedocumented in this encounter
--- OUTSIDE RECORDS SUMMARY | 2023-02-22 16:19 | XMS_ITS | Encounter Summary ---
Author Name Unknown Organization [facility] Address [address] [facility] [address] [place] [address] Care Team Providers Care Material Scheduler Name Role Phone Tyrell Schneider MD Primary Care Provider [phone] Encounter Details Date Type Department Care Team Description 01/18/2023 Orders Only [facility] [place] [address] [place] [address] Gabriel Mena MD [address] [place] [address] Social History Tobacco Use Types Packs/Day Years Used Date Smoking Tobacco: Never Assessed Sex and Gender Information Value Date Recorded Sex Assigned at Not on file Gender Identity Not on file Sexual Orientation Not on file documented as of this encounter Plan of Treatment Not on file documented as of this encounter Procedures Procedure Name Priority Date/Time Associated Diagnosis Comments HD KINETICS Routine 01/18/2023 POST CHEMISTRY Routine 01/18/2023 CHEMISTRY Routine 01/18/2023 SPECTRA LUCERO LAB RESULTS Routine 01/18/2023 documented in this encounter Results * Spectra LUCERO Lab Results (01/18/2023) PCR 41.48 LUCERO eKt/V (Tattersall) 1.47 LUCERO nPCR_HD 1.13 LUCERO spKt/V Gotch 1.83 LUCERO eKdrt/V 2.34 LUCERO eKt/V Gotch 1.44 LUCERO WSTDKT/V 4.3 LUCERO eNPCR 1.08 LUCERO spKt/V (Daugirdas II) 1.80 LUCERO 01/18/2023 01/18/2023 Lucero Ordering Provider LAB BLOOD ORDERABLE S LUCERO * HD KINETICS (01/18/2023) % Urea Reduction 80 65 - 80 % [facility] 01/18/2023 01/19/2023 3:5 3 AM CRIMINAL JUSTICE FACULTY Narrative [facility] - 01/22/2023 Unless otherwise specified, test(s) performed at: [facility], [address] [place] [address], [place] [address] ROUTE JUMPER: Eze Park M.D., Ph.D For any questions, please call customer service at FREQUENCY:OTHER Resulting Agency Comment Specimen source: Plasma Gabriel Mena MD LAB BLOOD ORDERABLES Performing Organization Address [facility] de Phone Number [facility] * (ABNORMAL) Spectrae Chemistry (01/18/2023) BUN 41(H) 6 - 19 mg/dL [facility] 01/18/2023 01/22/2023 8:4 8 AM CRIMINAL JUSTICE FACULTY Narrative [facility] - 01/22/2023 Unless otherwise specified, test(s) performed at: [facility], [address] [place] [address], [place] [address] ROUTE JUMPER: Eze Park M.D., Ph.D For any questions, please call customer service at FREQUENCY:OTHER Resulting Agency Comment Specimen source: Serum Gabriel Mena MD LAB BLOOD ORDERABLES Performing Organization Address City/[facility] Co de Phone Number [facility] * POST CHEMISTRY (01/18/2023) BUN Post Dialysis 8 6 - 19 mg/dL [facility] 01/18/2023 01/19/2023 3:5 3 AM CRIMINAL JUSTICE FACULTY Narrative [facility] - 01/19/2023 Unless otherwise specified, test(s) performed at: [facility], [address] [place] [address], [place] [address] ROUTE JUMPER: Eze Park M.D., Ph.D For any questions, please call customer service at FREQUENCY:OTHER Resulting Agency Comment Specimen source: Plasma Gabriel Mena MD LAB BLOOD ORDERABLES [facility] documented in this encounter Visit Diagnoses Not on filedocumented in this encounter Care Teams Material Scheduler Relationship Specialty Start Date End Date Tyrell Schneider MD [address] [place] [address] PCP - General 10/27/18 documented as of this encounter
--- OUTSIDE RECORDS SUMMARY | 2023-02-22 16:19 | XMS_ITS | Encounter Summary ---
Author Name Unknown Organization [facility] Address [address] [facility] [address] [place] [address] Care Team Providers Care Director Women Name Role Phone Tyrell Scnheider MD Primary Care Provider [phone] Encounter Details Date Type Department Care Team Description 01/30/2023 Orders Only [facility] [place] [address] [place] [address] Gabriel Mena MD [address] [place] [address] Social History Tobacco Use Types Packs/Day Years Used Date Smoking Tobacco: Never Assessed Sex and Gender Information Value Date Recorded Sex Assigned at Not on file Gender Identity Not on file Sexual Orientation Not on file documented as of this encounter Plan of Treatment Not on file documented as of this encounter Procedures Procedure Name Priority Date/Time Associated Diagnosis Comments HEMATOLOGY Routine 01/30/2023 documented in this encounter Results * (ABNORMAL) HEMATOLOGY (01/30/2023) Hemoglobin 10.3(L) 12.0 - 16.0 g/dL [facility] Hemoglobin x 3 30.9(L) 36.0 - 48.0 % [facility] 01/30/2023 01/31/2023 5:4 4 AM DIESEL DINKEY OPERATOR Narrative [facility] - 01/31/2023 Unless otherwise specified, test(s) performed at: [facility], [address] [place] [address], [place] [address] DIGITAL STRATEGIST: Eze Park M.D., Ph.D For any questions, please call customer service at FREQUENCY:OTHER Resulting Agency Comment Specimen source: Blood Gabriel Mena MD LAB BLOOD ORDERABLES [facility] documented in this encounter Visit Diagnoses Not on filedocumented in this encounter Care Teams Director Women Relationship Specialty Start Date End Date Tyrell Schneider MD [address] [place] [address] PCP - General 10/27/18 documented as of this encounter
--- OUTSIDE RECORDS SUMMARY | 2023-02-22 16:19 | XMS_ITS | Encounter Summary ---
Author Name Unknown Organization [facility] Address [address] [facility] [address] [place] [address] Care Team Providers Care Information Clerk [employer]obile Club Name Role Phone Tyrell Schneider MD Primary Care Provider [phone] Encounter Details Date Type Department Care Team Description 02/13/2023 Orders Only [facility] [place] [address] [place] [address] Gabriel Mena MD [address] [place] [address] Social History Tobacco Use Types [...] Date/Time Associated Diagnosis Comments HD KINETICS Routine 02/13/2023 POST CHEMISTRY Routine 02/13/2023 HEMATOLOGY Routine 02/13/2023 CHEMISTRY Routine 02/13/2023 SPECTRA LUCERO LAB RESULTS Routine 02/13/2023 documented in this encounter Results * Spectra LUCERO Lab Results (02/13/2023) spKt/V Gotch 2.30 LUCERO eKt/V (Tattersall) 1.84 LUCERO PCR 46.52 LUCERO spKt/V (Daugirdas II) 2.22 LUCERO WSTDKT/V 4.5 LUCERO eNPCR 1.25 LUCERO eKdrt/V 2.74 LUCERO eKt/V Gotch 1.83 LUCERO nPCR_HD 1.31 LUCERO 02/13/2023 02/13/2023 Lucero Ordering Provider LAB BLOOD ORDERABLE S LUCERO * (ABNORMAL) HD KINETICS (02/13/2023) % Urea Reduction 85(H) 65 - 80 % [facility] 02/13/2023 02/14/2023 4:5 7 AM GUARD RANGE Narrative Resulting Agency Comment Specimen source: Plasma Gabriel Mena MD LAB BLOOD ORDERABLES Performing Organization Address [facility] Co de Phone Number [facility]PS SPECTRA [facility] * POST CHEMISTRY (02/13/2023) BUN Post Dialysis 7 6 - 19 mg/dL [facility] 02/13/2023 02/14/2023 4:5 7 AM GUARD RANGE Narrative [facility] - 02/14/2023 Unless otherwise specified, test(s) performed at: [facility], [address] [place] [address], [place] [address] SALESPERSON SURGICAL APPLIANCES: Eze Park M.D., Ph.D For any questions, please call customer service at FREQUENCY:MONTHLY Resulting Agency Comment Specimen source: Plasma Gabriel Mena MD LAB BLOOD ORDERABLES Performing Organization Address City/[facility]/ZIP Co de Phone Number [facility] * (ABNORMAL) Spectrae Chemistry (02/13/2023) BUN 46(H) 6 - 19 mg/dL [facility] Creatinine 4.78(H) 0.60 - 1.30 mg/dL [facility] BUN/Creatinine Ratio 9.6(L) 10.0 - 20.0 [facility] Sodium 134(L) 136 - 145 mEq/L [facility] Potassium 5.0 3.5 - 5.1 mEq/L [facility] Chloride 99 96 - 108 mEq/L [facility] Bicarbonate (CO2) 30 20 - 31 mEq/L [facility] Calcium 8.5(L) 8.7 - 10.4 mg/dL [facility] Comment: Please note change in reference range. Corrected Calcium 9.1 8.7 - 10.4 mg/dL [facility] Comment: Corrected Calcium is not equivalent to measured Ionized Calcium. Phosphorus 4.3 2.6 - 4.5 mg/dL [facility] Calcium Phosphorus Product 37 0 - 54 [facility] Calcium Phosporus Product, Cor 39 0 - 54 [facility] Albumin 3.3(L) 3.5 - 5.2 g/dL [facility] Iron 72 30 - 160 mcg/dL [facility] UIBC 144(L) 155 - 355 mcg/dL [facility] TIBC 216 185 - 515 mcg/dL [facility] Iron Saturation (TSat) 33 20 - 55 % [facility] 02/13/2023 02/14/2023 4:2 3 AM GUARD RANGE Narrative [facility] - 02/14/2023 Unless otherwise specified, test(s) performed at: [facility], [address] [place] [address], [place] [address] SALESPERSON SURGICAL APPLIANCES: Eze Park M.D., Ph.D For any questions, please call customer service at FREQUENCY:MONTHLY Resulting Agency Comment Specimen source: Serum Gabriel Mena MD LAB BLOOD ORDERABLES [facility] * (ABNORMAL) HEMATOLOGY (02/13/2023) Neutrophils 83.5(H) 40.0 - 75.0 % [facility] Lymphocytes Relative 6.3(L) 19.0 - 48.0 % [facility] Monocytes 3.2 3.0 - 10.0 % [facility] Eosinophils Relative 6.2 0.0 - 7.0 % [facility] Basophils Relative 0.1 0.0 - 1.5 % [facility] JUANITO 0.7 0.0 - 4.0 % [facility] WBC 11.03(H) 4.80 - 10.80 1000/mcL [facility] RBC 3.72(L) 4.20 - 5.40 mill/mcL [facility] Hematocrit 34.3(L) 37.0 - 47.0 % [facility] MCV 92 80 - 100 fl [facility] MCH 28.7 27.0 - 31.0 pg [facility] MCHC 31.0 30.0 - 36.0 g/dL [facility] RDW 20.1(H) 11.5 - 14.5 % [facility] Hemoglobin 10.6(L) 12.0 - 16.0 g/dL [facility] Hemoglobin x 3 31.8(L) 36.0 - 48.0 % [facility]PS [facility] 02/13/2023 02/14/2023 5:2 0 AM GUARD RANGE Narrative [facility] - 02/14/2023 Unless otherwise specified, test(s) performed at: [facility], [address] [place] [address], [place] [address] SALESPERSON SURGICAL APPLIANCES: Eze Park M.D., Ph.D For any questions, please call customer service at FREQUENCY:MONTHLY Resulting Agency Comment Specimen source: Blood Gabriel Mena MD LAB BLOOD ORDERABLES [facility] documented in this encounter Visit Diagnoses Not on filedocumented in this encounter Care Teams Information Clerk Automobile Club Relationship Specialty Start Date End Date Tyrell Schneider MD [address] [place] [address] PCP - General 10/27/18 documented as of this encounter
--- OUTSIDE RECORDS SUMMARY | 2023-02-22 16:19 | XMS_ITS | Encounter Summary ---
Author Name Unknown Organization [facility] Address [address] [place] [address] Care Team Providers Care Supervisor Diagnostic Name Role Phone Tyrell Schneider MD Primary Care Provider [phone] Encounter Details Date Type Department Care Team Description 01/18/2023 Treatment [facility] [place] [address] [place] [address] Gabriel Mena MD [address] [place] [address] Social History Tobacco Use Types Packs/Day Years Used Date Smoking Tobacco: Never Assessed Sex and Gender Information Value Date Recorded Sex Assigned at Not on file Gender Identity Not on file Sexual Orientation Not on file documented as of this encounter Miscellaneous Notes * Dialysis Note - Gabriel Mena MD - 01/18/2023 1:43 PM CST Date: Jan 18, 2023 Patient Name: Maricruz Vanegas : 1945 Chart #: [id number] Sex: F This patient was personally seen for a complete visit as part of routine monthly dialysis care. A review of the dialysis treatment, blood pressure, estimated dry weight and recent lab values was made. These were discussed with the patient and staff as necessary. Treatment Data for 01/18/2023 started at:11:01 AM Dialyzer: Na: 137 mEq/L Bicarb: 33 mEq/L Dialysate: Dialysate/Machine Temp (prescribed): 37 C Dialysate/Machine Temp (actual): n/a BFR (prescribed): 350 BFR (actual): n/a Prescribed time: 03:00 EDW: 42 kg Access Type: Active (In Use):AVFistula-Standard/Left Upper Arm Pre Dialysis Vitals (for 01/18/2023 10:48 AM ) Pre BP (sit): 161/57 Pre Wt: 42.2 kg Temp: 97.9 F Post Dialysis Vitals (for 01/16/2023 2:01 PM ) Post BP (sit): 208/85 Post Wt: 41.6 kg Current Dialysis Vitals (for 01/18/2023 1:42 PM ) BP (sit): 189/80 AP(-) / RAILROAD TRACK REPAIR SUPERVISOR: n/a Pulse: 68 Chairside data as of 01/18/2023 1:42 PM Last 3 Treatments 01/16/2023 01/14/2023 01/11/2023 EDW (kg) 42 42 42 Weight Pre (kg) 42.4 42.2 42.2 Weight Post (kg) 41.6 41.9 41.67 Dialytic Weight Loss (kg) -0.8 -0.3 -0.53 EDW Deviation (kg) -0.4 -0.1 -0.33 BP Sit Pre 195/78 175/74 179/75 BP Sit Post 208/85 203/80 185/74 UF Rate (mL/kg/hr) 7 2 5 Prescribed BFR 350 350 350 Average Delivered BFR 320 350 340 Prescribed Treatment Time 03:00 03:00 03:00 Actual Treatment Time 02:49 02:59 02:48 Last 3 Values 01/16/2023 01/11/2023 12/21/2022 Access Flow 388 383 378 Treatment Medication Orders Medication Sig Start Date End Date Heparin Sodium (Porcine) 1,000 Units/mL Systemic 1000 units IVP Every Treatment 12/10/2022 12/09/2023 Heparin Sodium (Porcine) 1,000 Units/mL Systemic 1000 units IVP Every Treatment 12/10/2022 12/09/2023 Mircera 50 mcg IVP Every 2 weeks 12/28/2022 12/27/2023 TILE MECHANIC HELPER: Gabriel Mena MD LOCATION: [phone] SCHEDULE: M-W-F 2nd Shift EDW: kg. DIALYZER: HD DURATION: [...] hospitalizations and peritonitis. She was admitted at [facility] from 11/28-12/06/22 with acute peritonitis with Corynebacterium stratum, saw [facility] nephrology, saw Carlos Giles from [place], PD catheter removed, put on HD through AVF, [place] at discharge through 12/14 (completed) and I talked to [facility] nephrology at that time and [...] [facility] [...] but tolerates stools softeners. Advanced Practitioner Subjective APPLICATION DESIGNER 12/31/2022: Patient seen on dialysis. Now on [...] pm 04/21/2018 labetalol 300 mg tablet Take 1 tablet by mouth three times a day. Using 2 tabs am/1 tabs pm 05/25/20approved by Dr. Mena. 04/21/2018 Miralax (polyethylene glycol 3350) 17 gram powder [...] made. Treatment and Adequacy Assessment BUN mg/dL 29 (01/16/23) 49 (01/07/23) 62 (12/12/22) 72 (11/28/22) 96 (11/07/22) UREA NITROGEN (MG/DL) IN SER/PLAS - POST DIALYSIS mg/dL 8 (01/07/23) URR % 84 (01/07/23) spKt/V Gotch 2.01 (01/07/23) eKdrt/V 2.48 (01/07/23) spKt/V (Daugirdas II) 2.0200 (01/07/23) Dialysis is adequate. Achieves prescribed time - Yes Achieves prescribed frequency - Yes Continue current prescription. Vascular Access Assessment Type of access: Fistula Had AVF placed in Jan 2018, mature and working well. Never had catheter PD catheter placed 05/2018 at [facility], removed for peritonitis 11/2022 Anemia Assessment HEMOGLOBIN (G/DL) IN BLOOD g/dL 9.8 (01/16/23) 9.5 (01/09/23) 9.5 (01/07/23) 7.6 (12/21/22) 4.0 (12/12/22) PLATELETS 1000/mcL 262 (10/24/22) FERRITIN ng/mL 5007 [...] Status She will continue HD for now Will discuss PD again next month, but may be more suited for HD at this time Increase labetalol Monitor BP with above change and 100% compliance with BP meds Gabriel Mena MD [ Signed And locked electronically On 01/18/2023 at 01:46:45 PM ] Transcribed: Gabriel Mena ( 01/18/2023 ) documented in this encounter Plan of Treatment Not on file documented as of this encounter Visit Diagnoses Not on filedocumented in this encounter Care Teams Supervisor Diagnostic Relationship Specialty Start Date End Date Tyrell Schneider MD [address] [place] [address] PCP - General 10/27/18 documented as of this encounter
--- OUTSIDE RECORDS SUMMARY | 2023-02-22 16:19 | XMS_ITS | Encounter Summary ---
Author Name Unknown Organization [facility] Address [address] [place] [address] Care Team Providers Care Detector Car Operator Name Role Phone Unavailable Primary Care Provider Unavailabl e Encounter Details Date Type Department Care Team (Late st Contact Info) Description 05/11/2015 Historical Ophthalmology RST OPH Frantz Lee M.D. [address] [place] [address] Social History Tobacco Use Types Packs/Day Years Used Date Smoking Tobacco: Never Assessed Sex and Gender Information Value Date Recorded Sex Assigned at Not on file Gender Identity Female 01/08/2022 2:47 PM HOG COUNTER Sexual Orientation Straight 01/08/2022 2: 47 PM HOG COUNTER documented as of this encounter Progress Notes * Frantz Lee M.D. - 05/11/2015 9:04 AM CDT Eye General CHIEF COMPLAINT recheck ulcer, Left eye HISTORY OF PRESENT ILLNESS Patient states the pain in left eye, 6/10. Patient states the vision in left eye is the same. Patient denies light sensitivity or new vision concerns. AAT: PAtient thinks she is better than yesterday. Light sensitivity is improved. No pain, but she is taking pain medication. No history of HSV that she knows of. Has been a diabetic for 30 years. No neuropathy that she is aware of. Has some kidney problems, states that she is leaking protein. IMPRESSION / REPORT / PLAN #1 Corneal [...] minutes Ocuflox Q 15 minutes RTC tomorrow DIAGNOSIS #1 Corneal ulcer, left eye CDM Reports - [facility] Id: [id number] Status: Fnl documented in this encounter Plan of Treatment Not on file documented as of this encounter Visit Diagnoses Not on filedocumented in this encounter
--- OUTSIDE RECORDS SUMMARY | 2023-02-22 16:19 | XMS_ITS | Encounter Summary ---
Author Name Unknown Organization [facility] Address [address] [facility] [address] [place] [address] Care Team Providers Care Svp Programmatic Tv Name Role Phone Tyrell Schneider MD Primary Care Provider [phone] Encounter Details Date Type Department Care Team Description 01/23/2023 Orders Only [facility] [place] [address] [place] [address] Gabriel Mena MD [address] [place] [address] Social History Tobacco Use Types [...] Priority Date/Time Associated Diagnosis Comments HEMATOLOGY Routine 01/23/2023 documented in this encounter Results * (ABNORMAL) HEMATOLOGY (01/23/2023) Hemoglobin 9.8(L) 12.0 - 16.0 g/dL [facility] Hemoglobin x 3 29.4(L) 36.0 - 48.0 % [facility]PS [facility] 01/23/2023 01/24/2023 1:2 9 PM DRAFTER ELECTRICAL Narrative [facility] - 01/24/2023 Unless otherwise specified, test(s) performed at: [facility], [address] [place] [address], [place] [address] SUPERVISOR CASE LOADING: Eze Park M.D., Ph.D For any questions, please call customer service at FREQUENCY:OTHER Resulting Agency Comment Specimen source: Blood Gabriel Mena MD LAB BLOOD ORDERABLES [facility] documented in this encounter Visit Diagnoses Not on filedocumented in this encounter Care Teams Svp Programmatic Tv Relationship Specialty Start Date End Date Tyrell Schneider MD [address] [place] [address] PCP - General 10/27/18 documented as of this encounter
--- OUTSIDE RECORDS SUMMARY | 2023-02-22 16:19 | XMS_ITS | Clinical Summary ---
Author Name Unknown Organization [facility] Facility Address [address] [address] Care Team Providers Care Learning Program Manager Name Role Phone Tyrell Schneider MD Primary Care Provider Encounters Date Type Department Care Team Description 02/15/2023 Treatment [facility] Ricky [address] [facility] [address] [place] [address] Gillian Rosa, PUNCH MOLDER-SURVEILLANCE MONITOR 02/13/2023 Orders Only [facility] [address] [place] [phone] Gabriel Mena MD 02/06/2023 Orders Only [facility] [address] [place] [phone] Gabriel Mena MD 01/30/2023 Orders Only [facility] I[address] [facility] [address] [place] [phone] Gabriel Mena MD 01/28/2023 Treatment [facility] [address] [place] [address] Gillian Rosa, PUNCH MOLDER-SURVEILLANCE MONITOR 01/23/2023 Orders Only [facility] [address] [place] [address] Gabriel Mena MD 01/18/2023 Orders Only [facility] [address] [place] [address] Gabriel Mena MD 01/18/2023 Treatment [facility] [address] [place] [address] Gabriel Mena MD 01/16/2023 Orders Only [facility] [address] [facility] [place] [address] Gabriel Mena MD 01/09/2023 Orders Only [facility] [address] [facility] [place] [address] Gabriel Mena MD 01/07/2023 Orders Only [facility] [address] [facility] [place] [address] Gabriel Mena MD 12/31/2022 Treatment [facility] [address] [place] [address] Gillian Rosa, PUNCH MOLDER-SURVEILLANCE MONITOR 12/26/2022 Orders Only [facility] [address] [facility] [place] [address] Gabriel Mena MD 12/21/2022 Orders Only [facility] [address] [facility] [place] [address] Gabriel Mena MD 12/21/2022 Treatment [facility] [address] [place] [address] Gabriel Mena MD 12/12/2022 Orders Only [facility] [address] [facility] [place] [address] Gabriel Mena MD 11/28/2022 Orders Only [facility] [address] [place] [address] Gabriel Mena MD 11/27/2022 Treatment [facility] [place] [address] [place] [phone] Alfonzo Hernandez MD from Last 3 Months Social History Tobacco Use Types Packs/Day Years Used Date Smoking Tobacco: Never Assessed Sex and Gender Information Value Date Recorded Sex Assigned at Not on file Gender Identity Not on file Sexual Orientation Not on file Last Filed Vital Signs Vital Sign Reading Time Taken Comments Blood Pressure 154/75 07/16/2018 11:01 AM CDT Pulse 58 07/16/2018 11:01 AM CDT Temperature - - Respiratory Rate - - Oxygen Saturation - - Inhaled Oxygen Concentration - - Weight - - Height - - Body Mass Index - - Plan of Treatment Health Maintenance Due Date Last Done Comments Breast Cancer Screening 1945 Pneumococcal Vaccine: 65+ Years (1 - PCV) 08/30/1951 Hepatitis B Vaccine (1 of 5 - Risk Dialysis 4-dose series) 1967 Colorectal Cancer Screening: Annual FOBT 08/30/1996 Colorectal Cancer Screening: Colonoscopy 08/30/1996 Colorectal Cancer Screening: Sigmoidoscopy 08/30/1996 Diabetes: Hemoglobin A1C 03/15/2021 Diabetes: Ophthalmology Exam 03/15/2021 Diabetes: Pedal Pulse Checked 03/15/2021 Diabetes: Sensory Foot Exam 03/15/2021 Diabetes: Visual Foot Exam 03/15/2021 Influenza Vaccine (#1) 2022 Procedures Procedure Name Priority Date/Time Associated Diagnosis Comments SPECTRA ALBINO LAB RESULTS Routine 02/13/2023 HD KINETICS Routine 02/13/2023 POST CHEMISTRY Routine 02/13/2023 CHEMISTRY Routine 02/13/2023 HEMATOLOGY Routine 02/13/2023 HEMATOLOGY Routine 02/06/2023 HEMATOLOGY Routine 01/30/2023 HEMATOLOGY Routine 01/23/2023 SPECTRA ALBINO LAB RESULTS Routine 01/18/2023 HD KINETICS Routine 01/18/2023 CHEMISTRY Routine 01/18/2023 POST CHEMISTRY Routine 01/18/2023 HEMATOLOGY Routine 01/16/2023 CHEMISTRY Routine 01/16/2023 HEMATOLOGY Routine 01/09/2023 SPECTRA ALBINO LAB RESULTS Routine 01/07/2023 HEMATOLOGY Routine 01/07/2023 HD KINETICS Routine 01/07/2023 POST CHEMISTRY Routine 01/07/2023 CHEMISTRY Routine 01/07/2023 CHEMISTRY Routine 12/26/2022 HEMATOLOGY Routine 12/21/2022 HEMATOLOGY Routine 12/12/2022 TRACE ELEMENTS Routine 12/12/2022 SPECIAL CHEMISTRY Routine 12/12/2022 CHEMISTRY Routine 12/12/2022 IMMUNO CHEMISTRY Routine 12/12/2022 CHEMISTRY Routine 12/12/2022 HEMATOLOGY Routine 11/28/2022 CHEMISTRY Routine 11/28/2022 CHEMISTRY Routine 11/28/2022 from Last 3 Months Results * (ABNORMAL) HD KINETICS (02/13/2023) Only the most recent of3 resultswithin the time period is included. % Urea Reduction 85(H) 65 - 80 % [facility] 02/13/2023 02/14/2023 4:5 7 AM DIRECTOR OF PERSONNEL Narrative Resulting Agency Comment Specimen source: Plasma Gabriel Mena MD LAB BLOOD ORDERABLES Performing Organization Address [facility] Co de Phone Number [facility] * POST CHEMISTRY (02/13/2023) Only the most recent of3 resultswithin the time period is included. BUN Post Dialysis 7 6 - 19 mg/dL [facility] 02/13/2023 02/14/2023 4:5 7 AM DIRECTOR OF PERSONNEL Narrative [facility] - 02/14/2023 Unless otherwise specified, test(s) performed at: [facility], [address] [place] [address], [place] [address] RNFA: Eze Park M.D., Ph.D For any questions, please call customer service at FREQUENCY:MONTHLY Resulting Agency Comment Specimen source: Plasma Gabriel Mena MD LAB BLOOD ORDERABLES Performing Organization Address [facility] de Phone Number [facility] * (ABNORMAL) HEMATOLOGY (02/13/2023) Only the most recent of10 resultswithin the time period is included. Neutrophils 83.5(H) 40.0 - 75.0 % APS [...] S[facility]RA [facility] 02/13/2023 02/14/2023 5:2 0 AM DIRECTOR OF PERSONNEL Narrative [facility] - 02/14/2023 Unless otherwise specified, test(s) performed at: [facility], [address] [place] [address], [place] [address] RNFA: Eze Park M.D., Ph.D For any questions, please call customer service at FREQUENCY:MONTHLY Resulting Agency Comment Specimen source: Blood Gabriel eMna MD LAB BLOOD ORDERABLES [facility] * (ABNORMAL) Spectrae Chemistry (02/13/2023) Only the most recent of9 resultswithin the time period is included. BUN 46(H) 6 - 19 mg/dL APS [...] S[facility]RA [facility] 02/13/2023 02/14/2023 4:2 3 AM DIRECTOR OF PERSONNEL Narrative [facility] - 02/14/2023 Unless otherwise specified, test(s) performed at: [facility], [address] [place] [address], [place] [address] RNFA: Eze Park M.D., Ph.D For any questions, please call customer service at FREQUENCY:MONTHLY Resulting Agency Comment Specimen source: Serum Gabriel Mena MD LAB BLOOD ORDERABLES Performing Organization Address City/[facility]/ZIP Co de Phone Number [facility] * Spectra ALBINO Lab Results (02/13/2023) Only the most recent of3 resultswithin the time period is included. spKt/V Gotch 2.30 ALBINO eKt/V (Tattersall) 1.84 ALBINO PCR 46.52 ALBINO spKt/V (Daugirdas II) 2.22 ALBINO WSTDKT/V 4.5 ALBINO eNPCR 1.25 ALBINO eKdrt/V 2.74 ALBINO eKt/V Gotch 1.83 ALBINO nPCR_HD 1.31 ALBINO 02/13/2023 02/13/2023 Albino Ordering Provider LAB BLOOD ORDERABLE S ALBINO * (ABNORMAL) SPECIAL CHEMISTRY (12/12/2022) Vitamin B-12 712 211 - 911 pg/mL [facility] Vitamin D, 25-OH, Total 21.3(L) 30.0 - 100.0 ng/mL [facility] Comment: Please Note: ??Effective February 19, 2021, the methodology for this test has changed to the SIEMENS ATELLICA method 12/12/2022 12/13/2022 3:2 2 AM CDT Narrative Resulting Agency Comment Specimen source: Serum Gabriel Mena MD LAB BLOOD BANK TEST ORDERABLES [facility] * IMMUNO CHEMISTRY (12/12/2022) Hepatitis B Surface Ab 11 mIU/mL [facility] Comment: The anti-HBs (Hepatitis B surface antibody) is greater than or equal to 10 mIU/mL and implies immunity. The patient has either had an antibody response to HBV vaccination, received a transfusion, or has recovered from HBV infection. For post-vaccination antibody testing guidelines for the general public, refer to MMWR February 02, 2005/Vol.54 (No. 16); 1-23, and for healthcare workers, refer to MMWR January 30, 2013/Vol.62 (No. 10); 1-18. Reference Range: <10 mIU/mL ? Non-Immune >=10 mIU/mL ?Immune The magnitude of the measured result above 10 mIU/mL is not indicative of the total amount of antibody present. Hepatitis C Antibody Nonreactive Nonreactive [facility] Comment: No HCV antibody detected. The above test result was obtained using [employer]ell[employer] IM chemiluminescent method. Results obtained with different assay methods or kits cannot be used interchangeably. S/CO Ratio 0.03 0.00 - 0.79 [facility] Comment: s/co ratio ?Interpretation ?Supplemental testing <0.80 ? Nonreactive ? No further testing required. 0.80-0.99 ? Equivocal ? HCV RNA Quantitative Real-Time PCR is recommended. 1.00->11.00 ?? Reactive ?HCV RNA Quantitative Real-Time PCR is recommended to distinguish active from resolved cases. 12/12/2022 12/13/2022 2:4 6 AM CDT Narrative Resulting Agency Comment Specimen source: Plasma Gabriel Mena MD LAB BLOOD ORDERABLES [facility] * TRACE ELEMENTS (12/12/2022) Aluminum 7 0 - 10 mcg/L [facility] Comment: This test was developed and its performance characteristics determined by [facility]. It has not been cleared or approved by the FDA. The laboratory is regulated under CLIA as qualified to perform high complexity testing. This test is used for clinical purposes. It should not be regarded as investigational or for research. 12/12/2022 12/13/2022 3:3 1 AM CDT Narrative [facility] - 12/13/2022 Unless otherwise specified, test(s) performed at: [facility], [address] [place] [address], [place] [address] RNFA: Eze Park M.D., Ph.D For any questions, please call customer service at FREQUENCY:MONTHLY Resulting Agency Comment Specimen source: Serum Gabriel Mena MD LAB BLOOD ORDERABLES Performing Organization Address City/State/[facility] Co de Phone Number [facility] from Last 3 Months Care Teams Learning Program Manager Relationship Specialty Start Date End Date Tyrell Schneider MD [address] [place] [address] PCP - General 10/27/18
--- OUTSIDE RECORDS SUMMARY | 2023-02-22 16:19 | XMS_ITS | Encounter Summary ---
Author Name Unknown Organization [facility] Address [address] [facility] [address] [place] [address] Care Team Providers Care Warehouse Inventory Clerk Name Role Phone Tyrell Schneider MD Primary Care Provider [phone] Encounter Details Date Type Department Care Team Description 02/06/2023 Orders Only [facility] [address] [place] [address] Gabriel Mena MD [address] [place] [address] Social History Tobacco Use Types [...] Priority Date/Time Associated Diagnosis Comments HEMATOLOGY Routine 02/06/2023 documented in this encounter Results * (ABNORMAL) HEMATOLOGY (02/06/2023) Hemoglobin 10.5(L) 12.0 - 16.0 g/dL [facility] Hemoglobin x 3 31.5(L) 36.0 - 48.0 % [facility] 02/06/2023 02/07/2023 11: 05 AM TIRE TESTER Narrative [facility] - 02/07/2023 Unless otherwise specified, test(s) performed at: [facility], [address] [place] [address], [place] [address] MANAGEMENT CONSULTING: Eze Park M.D., Ph.D For any questions, please call customer service at FREQUENCY:OTHER Resulting Agency Comment Specimen source: Blood Gabriel Mena MD LAB BLOOD ORDERABLES [facility] documented in this encounter Visit Diagnoses Not on filedocumented in this encounter Care Teams Warehouse Inventory Clerk Relationship Specialty Start Date End Date Tyrell Schneider MD [address] [place] [address] PCP - General 10/27/18 documented as of this encounter
--- OUTSIDE RECORDS SUMMARY | 2023-02-22 16:19 | XMS_ITS | Continuity of Care Document ---
Author Name Unknown Organization [facility] Address [address] [address] [place] [address] Phone Care Team Providers Care Cigar Making Machine Operator Name Role Phone Adama Katz MD Unavailable Unavailable Procedures Procedure Date Ugi Endo; Dx W/wo Collec Specm 23 Init Hosp-da E&m Mod Severity 3 Advance Directives Directive Yes / No Effective Date File Name No Information Encounters Encounter Description Practice Location Reason(s) For Visit Diagnoses Date Provider Providers Copied on Encounter [facility] [place], [address] [address], [place], [place], [id number], tel:[phone] [facility] No Information Sterling Galan. [address] [place] [address], [id number], [place]. tel:[phone] Referring Provider: Adama Katz MD , [address] [place] [address], [address]. tel:[phone] Init Hosp-da E&m Mod Severity [facility] [place], [address] [address], [place], [place], [id number], [place] tel:[phone] [facility] No Information Edstrom LAURA Vega. [address] [place] [address], [id number], [place]. tel:[phone] Referring Provider: Tyrell Chamberlain, [address], [place], [address]. tel:[phone] Family History Family Member Type Diagnosis Age At Onset No Information Payers Payer name Insurance type Covered alliance party ID Yu eric(s) Blue Cross [place] Blue [place] [id number] Social History Type Description Quantity Date Captured [...]
--- OUTSIDE RECORDS SUMMARY | 2023-02-22 16:19 | XMS_ITS | Encounter Summary ---
Author Name Unknown Organization [facility] Address [address] [place] [address] Care Team Providers Care Guest Experience Specialist Name Role Phone Unavailable Primary Care Provider Unavailabl e Encounter Details Date Type Department Care Team (Late st Contact Info) Description 05/10/2015 Historical Ophthalmology RST OPH Frantz Lee M.D. [address] [place] [address] Social History Tobacco Use Types Packs/Day Years Used Date Smoking Tobacco: Never Assessed Sex and Gender Information Value Date Recorded Sex Assigned at Not on file Gender Identity Female 01/08/2022 2:47 PM BOW MAKER MACHINE TENDER Sexual Orientation Straight 01/08/2022 2: 47 PM BOW MAKER MACHINE TENDER documented as of this encounter Progress Notes * Frantz Lee M.D. - 05/10/2015 11:47 AM CDT Eye General CHIEF COMPLAINT Left eye ulcer. HISTORY OF PRESENT ILLNESS Left eye pain 3/10. Vision is the same. Yelllowish drainage, a lot. Fortified vancomycin and tobramycin alternating q 15 minutes (each drop every 30 minutes) while awake. Overnight, can do each drop Q1 hour, 5 minutes appart. AAT: Feeling better. Less light sensitivity today. Doesn't recall any trauma. Doesn't wear contact lenses. IMPRESSION / REPORT / PLAN #1 Corneal [...] 5 minutes appart. Cyclogyl BID RTC tomorrow. DIAGNOSIS #1 Corneal ulcer, left eye CDM Reports - [facility] Id: [id number] Status: Fnl documented in this encounter Plan of Treatment Not on file documented as of this encounter Visit Diagnoses Not on filedocumented in this encounter
--- OUTSIDE RECORDS SUMMARY | 2023-02-22 16:19 | XMS_ITS | Continuity of Care Document ---
Author Name Unknown Organization [facility] Address [address] [place] [address] Phone Care Team Providers Care Motor Equipment Commanding Officer Name Role Phone Frankie Brunson Unavailable Unavailable Allergies, Adverse Reactions, Alerts Substance Reaction Status Criticality lisinopril Active No Information amlodipine Active No Information Medications Medication Instructions Dosage Effective Dates (start - stop) Status Comments AMLODIPINE BESYLATE (unknown strength) Not Available - Active FUROSEMIDE (unknown strength) Not Available - Active CLONIDINE (unknown strength) Not Available - Active OXYCODONE HCL (unknown strength) Not Available - Active LABETALOL HCL (unknown strength) Not Available - Active GLIPIZIDE (unknown strength) Not Available - Active Procedures Procedure Date Office/Outpatient Visit,Est, Mod 2020 Office/Outpatient Visit,New, Mod 2020 Advance Directives Directive Yes / No Effective Date File Name No Information Encounters Encounter Description Practice Location Reason(s) For Visit Diagnoses Date Provider Providers Copied on Encounter [facility], [address], [place], [place], [id number] , [place] [phone] [facility] No Information 1 Vianey David. [address] [place] [address], [place], [place], [id number], [place]. [phone] Office/Outpa tient Visit,Est, Mod [facility], [address], [place], [place], [id number] , [place] [phone] [facility] Other spondylosis, lumbar regionSpinal stenosis, lumbar region with neurogenic claudication 1 Allison Lee. [facility], [address], [address], [place], [place], [id number], [place]. tel:[phone] Referring Provider: Tyrell Chamberlain, [employer] [address], [place], [address]. tel:[phone] Office/Outpa tient Visit,New, Mod [facility], [address], [place], [place], [id number] , [place] tel:[phone] [facility] Spinal stenosis, lumbar region with neurogenic claudicationOt her spondylosis, lumbar region 1 No Information Referring Provider: Tyrell Chamberlain, [employer] [address], [place], [address]. tel:[phone] Family History Family Member Type Diagnosis Age At Onset No Information Payers Payer name Insurance type Covered libertarian ID Authorcarmenzaa hernesto(s) [facility] [id number] Medicare [facility] BL [id number] Social History Type Description Quantity Date [...]
--- OUTSIDE RECORDS SUMMARY | 2023-02-22 16:19 | XMS_ITS | Encounter Summary ---
Author Name Unknown Organization [facility] Address [address] [place] [address] Care Team Providers Care Ibm Bpm Architect Name Role Phone Unavailable Primary Care Provider Unavailabl e Encounter Details Date Type Department Care Team ([facility] st Contact Info) Description 05/09/2015 Historical Ophthalmology RST OPH Frantz Lee M.D. [address] [place] [phone] Social History Tobacco Use Types Packs/Day Years Used Date Smoking Tobacco: Never Assessed Sex and Gender Information Value Date Recorded Sex Assigned at Not on file Gender Identity Female 01/08/2022 2:47 PM MASTER NAVAL PARACHUTIST Sexual Orientation Straight 01/08/2022 2: 47 PM MASTER NAVAL PARACHUTIST documented as of this encounter Progress Notes * Frantz Lee M.D. - 05/09/2015 1:32 PM CDT Eye General CHIEF COMPLAINT Infection HISTORY OF PRESENT ILLNESS Infection; left eye; for two days; pain level of 8/10; increased pain with light AAT: Patient was told that she has an infection in her eye. Saturday evening, she noticed sensitivity to light in the left eye. Then she started to have pain in the eye and her head and jaw and neck.Went to the eye doctor this morning in [facility]. States that she lost the drop that they gave her. States that she had cataract surgery in both eyes, but the cataract came back in the left eye. IMPRESSION / REPORT / PLAN #1 Corneal ulcer, left eye Assessment: Patient seen with Dr. Jimenes. 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 She needs inpatient admission for hourly antibiotic drops. Will have her follow in [facility] tomorrow. 09 May 2015 B-scan left eye: anterior vitreous opacities and strands, probable partial posterior vitreous detachment, retina attached. LS Plan: Corneal culture today Admit for antibiotic drops as follows: Fortified vancomycin and tobramycin alternating q 15 minutes(each drop every 30 minutes) while awake. Overnight, can do each drop Q1 hour, 5 minutes appart. RTC tomorrow. DIAGNOSIS #1 Corneal ulcer, left eye CDM Reports - [facility] Id: [id number] Status: Fnl documented in this encounter Plan of Treatment Not on file documented as of this encounter Visit Diagnoses Not on filedocumented in this encounter
--- OUTSIDE RECORDS SUMMARY | 2023-02-22 16:20 | XMS_ITS | Encounter Summary ---
Author Name Unknown Organization [facility] Address [address] [place] [address] Care Team Providers Care Commercial Lines Manager Name Role Phone Tyrell Schneider MD Primary Care Provider [phone] Encounter Details Date Type Department Care Team Description 12/31/2022 Treatment [facility] [address] [place] [phone] Ana Rosa APRN-CNP [address] [place] [address] Social History Tobacco Use Types Packs/Day Years Used Date Smoking Tobacco: Never Assessed Sex and Gender Information Value Date Recorded Sex Assigned at Not on file Gender Identity Not on file Sexual Orientation Not on file documented as of this encounter Miscellaneous Notes * Dialysis Note - Ana Rosa APRN-CNP - 12/31/2022 11:13 PM AIR DEFENSE CONTROL OFFICER Date: Dec 31, 2022 Patient Name: Maricruz Vanegas : 1945 Chart #: [id number] Sex: F This patient was personally seen for a complete visit as part of routine monthly dialysis care. A review of the dialysis treatment, blood pressure, estimated dry weight and recent lab values was made. These were discussed with the patient and staff as necessary. Treatment Data for 01/04/2023 started at:12:41 PM Dialyzer: 160NRe Optiflux Na: 137 mEq/L Bicarb: 33 mEq/L Dialysate: 3.0 K, 2.5 Ca, 1.0 Mg, 100 Dextrose (G3251) Dialysate/Machine Temp (prescribed): 37 C Dialysate/Machine Temp (actual): 37 C BFR (prescribed): 350 BFR (actual): n/a Prescribed time: 03:00 EDW: 42 kg Access Type: AVFistula-Standard/Left Upper Arm Pre Dialysis Vitals (for 01/04/2023 12:35 PM ) Pre BP (sit): 209/ Pre Wt: 42.4 kg Temp: 97 F Post Dialysis Vitals (for 01/04/2023 2:59 PM ) Post BP (sit): 210/75 Post Wt: 42 kg Chairside data as of 01/04/2023 2:59 PM Last 3 Treatments 01/04/2023 01/02/2023 12/31/2022 EDW (kg) 42 42 42 Weight Pre (kg) 42.4 42.7 43.7 Weight Post (kg) 42 41.7 41.7 Dialytic Weight Loss (kg) -0.4 -1 -2 EDW Deviation (kg) 0 -0.3 -0.3 BP Sit Pre / 199/86 208/88 BP Sit Post 210/75 222/81 214/85 UF Rate (mL/kg/hr) 5 8 16 Prescribed BFR 350 350 350 Average Delivered BFR 350 350 340 Prescribed Treatment Time 03:00 03:00 03:00 Actual Treatment Time 02:06 03:01 02:56 Last 1 Values 12/21/2022 Access Flow 378 Treatment Medication Orders Medication Sig Start Date End Date Heparin Sodium (Porcine) 1,000 Units/mL Systemic 1000 units IVP Every Treatment 12/10/2022 12/09/2023 Heparin Sodium (Porcine) 1,000 Units/mL Systemic 1000 units IVP Every Treatment 12/10/2022 12/09/2023 Mircera 50 mcg IVP Every 2 weeks 12/28/2022 12/27/2023 KOSHER DIETARY SERVICE SUPERVISOR: Gabriel Mena MD LOCATION: [phone] SCHEDULE: M-W-F 2nd Shift EDW: kg. DIALYZER: HD DURATION: NEEDLE SIZE: ANTICOAG: BATH: QB: ml/min QD: ml/min Subjective Tolerating dialysis well. 12/21/22: Maricruz is a PD patient that follows with me. She is now on hemodialysis at least short term due to recent hospitalizations and peritonitis. She was admitted at [facility] from 11/28-12/06/22 with acute peritonitis with Corynebacterium stratum, saw [facility] nephrology, saw Carlos Giles from [place], PD catheter removed, put on HD through AVF, Vanco at discharge through 12/14 (completed) and I talked to [facility] nephrology at that time and agreed to [...] do PD and has appt on Saturdayat [facility] for consult to consider PD catheter placement. [...] but tolerates stools softeners. Advanced Practitioner Subjective SENIOR PORTFOLIO MANAGER 12/31/2022: Patient seen on dialysis. Now on [...] - Regular rate. Regular rhythm. Edema - 1+ leg edema. Access - LUE AVF with good t/b, non-aneurysmal PD catheter site healed/closed with PD catheter removed, non-tender abdomen, stable distention of abdomen Medication List Medication Sig Start Date albuterol sulfate 2.5 mg/3 mL (0.083 %) solution for nebulization Take 1 vial as directed every four hours as needed 04/21/2018 amlodipine 10 mg tablet Take 1 tablet by mouth twice a day 04/21/2018 clonidine HCl 0.1 mg tablet Take 3 [...] made. Treatment and Adequacy Assessment BUN mg/dL 62 (12/12/22) 72 (11/28/22) 96 (11/07/22) 96 (10/24/22) 65 (10/10/22) Dialysis is adequate. Achieves prescribed time - Yes Achieves prescribed frequency - No Missed treatments in past 30 days - 1 Continue current prescription. Discussed needing dialysis 3 times per week Vascular Access Assessment Type of access: Fistula Had AVF placed in Jan 2018, mature and working well. Never had catheter PD catheter placed 05/2018 at [facility], removed for peritonitis 11/2022 Anemia Assessment HEMOGLOBIN (G/DL) IN BLOOD g/dL 7.6 (12/21/22) 4.0 (12/12/22) 11.1 (11/28/22) 10.4 (10/24/22) 10.6 (10/03/22) PLATELETS 1000/mcL 262 (10/24/22) FERRITIN ng/mL 5007 (12/12/22) 3454 (11/28/22) 1573 (08/27/22) 1626 (05/16/22) 1034 (02/14/22) TRANSFERRIN SAT% % 53 (12/12/22) 45 (11/28/22) 62 (10/24/22) 41 (10/10/22) 41 (08/27/22) Hemoglobin is below goal. Iron Saturation is above goal. Ferritin is above goal. Will adjust ELA and intravenous iron per protocol. No iron with very high ferritin Hgb after hospital stay and 2u blood up to 7.1, repeat today in clinic and weekly and re-starting ELA therapy Nutritional and Metabolic Assessment ALBUMIN (G/DL) g/dL 2.8 (12/12/22) 3.3 (11/28/22) 3.3 (10/24/22) 3.6 (10/10/22) 3.6 (10/03/22) Sodium mEq/L 136 (12/12/22) 126 (11/28/22) 134 (10/24/22) 136 (10/10/22) 130 (08/27/22) POTASSIUM (MMOL/L) IN SER/PLAS mEq/L 4.4 (12/26/22) 3.2 (12/12/22) 5.6 (11/28/22) 4.7 (10/24/22) 4.8 (10/10/22) BICARBONATE (CO2) mEq/L 28 (12/12/22) 24 (11/28/22) 28 (10/24/22) 27 (10/10/22) 29 (08/27/22) 25 OH VITAMIN D ng/mL 21.3 (12/12/22) 32.6 (02/14/22) Albumin is below goal. Encourage high-biological value protein intake. Potassium is at goal. Bicarbonate is at goal. Continue same bicarbonate in dialysate. Bone and Mineral Metabolism Assessment CALCIUM mg/dL 8.1 (12/12/22) 8.6 (11/28/22) 8.9 (10/24/22) 8.9 (10/10/22) 8.4 (08/27/22) CALCIUM (MG/DL) CORRECTED FOR ALBUMIN IN SER/PLAS mg/dL 9.1 (12/12/22) 9.2 (11/28/22) 9.5 (10/24/22) 9.2 (10/10/22) 8.9 (08/27/22) PHOSPHATE (MG/DL) IN SER/PLAS mg/dL 6.4 (12/26/22) 1.8 (12/12/22) 5.3 (11/28/22) 4.4 (10/24/22) 4.5 (10/10/22) CALCIUM PHOSPHORUS PRODUCT, COR 16 (12/12/22) 49 (11/28/22) 42 (10/24/22) 41 (10/10/22) 46 (08/27/22) IPTH pg/mL 376 (12/12/22) 276 (11/28/22) 305 (08/27/22) 37 (07/24/22) 240 (06/13/22) Corrected Calcium is at goal. Phosphorous is below goal. Intact PTH is at goal. Cardiovascular Assessment Blood pressures reviewed and are acceptable. Intradialytic weight gains are appropriate. Estimated dry weight is appropriate. Transplant Status: Patient is not a candidate. Age, co-morbidities, nicotine dependence with COPD Resuscitation Status She is on IHD until recovered more fully, then we can consider transition back to PD, earliest nextmonth. We will schedule her at [facility] to have catheter placed mid January to have this scheduled butI would like to see her more fully recovered/capable, Hgb at least >8.0, albumin improving, and no hospitalizations. I will see her early next month again and see if she is on pace to have PD catheter placed again and re-start PD but could be delayed further. I did also talk to her about the likelihood of needing to do more PD than she did prior as residual function likely dropped somewhat. ANA ROSA NP [ Signed And locked electronically On 01/06/2023 at 11:18:27 PM ] Transcribed: ANA ROSA ( 01/06/2023 ) documented in this encounter Plan of Treatment Not on file documented as of this encounter Visit Diagnoses Not on filedocumented in this encounter Care Teams Commercial Lines Manager Relationship Specialty Start Date End Date Tyrell Schneider MD [address] [place] [address] PCP - General 10/27/18 documented as of this encounter
--- OUTSIDE RECORDS SUMMARY | 2023-02-22 16:20 | XMS_ITS | Encounter Summary ---
Author Name Unknown Organization [facility] Address [address] [place] [address] Care Team Providers Care Zig Zag Stitcher Name Role Phone Tyrell Schneider MD Primary Care Provider [phone] Encounter Details Date Type Department Care Team Description 12/21/2022 Treatment [facility] [address] [place] [address] Gabriel Mena MD [address] [place] [address] Social History Tobacco Use Types Packs/Day Years Used Date Smoking Tobacco: Never Assessed Sex and Gender Information Value Date Recorded Sex Assigned at Not on file Gender Identity Not on file Sexual Orientation Not on file documented as of this encounter Miscellaneous Notes * External Note - Gabriel Mena MD - 12/21/2022 2:06 PM CST Date: Dec 21, 2022 Patient Name: Maricruz Vanegas : 1945 Chart #: [id number] Sex: F Patient has transitioned out of the following type of facility within the past 30 days: Hospital. Discharging Facility: [facility] Patient caregiver is present? If yes, relationship of caregiver to the patient: Date of admission:12/12/2022 Reason for admission: Anemia Date of discharge:12/18/2022 Discharge Diagnosis: Anemia Review of relevant procedures performed during admission (surgeries, cardiac, transfusions, etc): Admit 12/12-12/18 [facility], acute on chronic anemia, Hgb to 4, hematoma at prior PD removal site, non-bleeding duodenal ulcers on EGD, no hemolysis, got 2u blood and Hgb improved and stable. Hgb 7.1 on discharge. Medication List Medication Sig Start Date albuterol [...] Itching pravastatin Back pain simvastatin Back pain New in-center meds were considered (antibiotics, ONS, etc): No in-center meds initiated. Dialysis related therapy interruptions were considered (Micera,Venofer,ONS,etc): Therapy interruptions noted and addressed. She missed HD on 12/19, now back 12/21 and MWF planned Treatment Data for 12/21/2022 started at:12:11 PM Dialyzer: 160NRe Optiflux Na: 137 mEq/L Bicarb: 33 mEq/L Dialysate: 3.0 K, 2.5 Ca, 1.0 Mg, 100 Dextrose (G3251) Dialysate/Machine Temp (prescribed): 37 C Dialysate/Machine Temp (actual): 37.1 C BFR (prescribed): 250 BFR (actual): 350 Prescribed time: 03:00 EDW: 42 kg Access Type: Active (In Use):AVFistula-Standard/Left Upper Arm Pre Dialysis Vitals (for 12/21/2022 11:56 AM ) Pre BP (sit): 170/63 Pre Wt: 47 kg Temp: 97.7 F Post Dialysis Vitals (for 12/12/2022 3:04 PM ) Post BP (sit): 148/62 Post Wt: 42.8 kg Current Dialysis Vitals (for 12/21/2022 1:59 PM ) BP (sit): 169/72 AP(-) / WORKS MANAGER: 179/196 Pulse: 76 Chairside data as of 12/21/2022 1:59 PM Last 3 Treatments 12/19/2022 (Absent) 12/17/2022 (Absent) 12/14/2022 (Absent) EDW (kg) Weight Pre (kg) Weight Post (kg) Dialytic Weight Loss (kg) EDW Deviation (kg) BP Sit Pre BP Sit Post UF Rate (mL/kg/hr) Prescribed BFR Average Delivered BFR Prescribed Treatment Time Actual Treatment Time Last 1 Values 12/21/2022 Access Flow 378 Treatment Medication Orders Medication Sig Start Date End Date Heparin Sodium (Porcine) 1,000 Units/mL Systemic 1000 units IVP Every Treatment 12/10/2022 12/09/2023 Heparin Sodium (Porcine) 1,000 Units/mL Systemic 1000 units IVP Every Treatment 12/10/2022 12/09/2023 Target Weight: The patient's post discharge target weight was from their pre- admit target weight. Physical Exam: Lungs: Clear. Heart: RRR. Edema: 1 plus. Did the patient have tests ordered during admission that were not completed? No outstanding tests. If yes, please list: Was patient education specific to discharge diagnosis provided? Did the patient's access plan change as a result of this admission? Did the patient's advanced care plan change as a result of this admission? No changes in advanced care plan. Did the patient have any follow up appointments scheduled post discharge? Yes the patient has follow up appts. If yes, what is the status of those appts? No concerns with adherence with follow up appts. Gabriel Mena MD [ Signed And locked electronically On 12/21/2022 at 02:07:47 PM ] Transcribed: Gabriel Mena ( 12/21/2022 ) * Dialysis Note - Gabriel Mena MD - 12/21/2022 2:00 PM CST Date: Dec 21, 2022 Patient Name: Maricruz Vanegas : 1945 Chart #: [id number] Sex: F This patient was personally seen for a complete visit as part of routine monthly dialysis care. A review of the dialysis treatment, blood pressure, estimated dry weight and recent lab values was made. These were discussed with the patient and staff as necessary. Treatment Data for 12/21/2022 started at:12:11 PM Dialyzer: 160NRe Optiflux Na: 137 mEq/L Bicarb: 33 mEq/L Dialysate: 3.0 K, 2.5 Ca, 1.0 Mg, 100 Dextrose (G3251) Dialysate/Machine Temp (prescribed): 37 C Dialysate/Machine Temp (actual): 37.1 C BFR (prescribed): 250 BFR (actual): 350 Prescribed time: 03:00 EDW: 42 kg Access Type: Active (In Use):AVFistula-Standard/Left Upper Arm Pre Dialysis Vitals (for 12/21/2022 11:56 AM ) Pre BP (sit): 170/63 Pre Wt: 47 kg Temp: 97.7 F Post Dialysis Vitals (for 12/12/2022 3:04 PM ) Post BP (sit): 148/62 Post Wt: 42.8 kg Current Dialysis Vitals (for 12/21/2022 1:36 PM ) BP (sit): 178/71 AP(-) / WORKS MANAGER: 175/197 Pulse: 70 Chairside data as of 12/21/2022 1:36 PM Last 3 Treatments 12/19/2022 (Absent) 12/17/2022 (Absent) 12/14/2022 (Absent) EDW (kg) Weight Pre (kg) Weight Post (kg) Dialytic Weight Loss (kg) EDW Deviation (kg) BP Sit Pre BP Sit Post UF Rate (mL/kg/hr) Prescribed BFR Average Delivered BFR Prescribed Treatment Time Actual Treatment Time Last 1 Values 12/21/2022 Access Flow 378 Treatment Medication Orders Medication Sig Start Date End Date Heparin Sodium (Porcine) 1,000 Units/mL Systemic 1000 units IVP Every Treatment 12/10/2022 12/09/2023 Heparin Sodium (Porcine) 1,000 Units/mL Systemic 1000 units IVP Every Treatment 12/10/2022 12/09/2023 TEA LEAF READER: Gabriel Mena MD LOCATION: [phone] SCHEDULE: -W- 2nd Shift EDW: kg. DIALYZER: HD DURATION: NEEDLE SIZE: ANTICOAG: BATH: QB: ml/min QD: ml/min Subjective Tolerating dialysis well. 12/21/22: Maricruz is a PD patient that follows with me. She is now on hemodialysis at least short term due to recent hospitalizations and peritonitis. She was admitted at [facility] from 11/28-12/06/22 with acute peritonitis with Corynebacterium stratum, saw [facility] nephrology, saw Carlos Giles from [place], PD catheter removed, put on HD through AVF, Vanco at discharge through 12/14 (completed) and I talked to [facility] nephrology at that time and agreed to [...] do PD and has appt on Saturdayat [facility] for consult to consider PD catheter placement. [...] but tolerates stools softeners. Advanced Practitioner Subjective Review of Systems None reported. except above [...] (ferric citrate) 210 mg iron tablet Take 3 tablet by mouth three times a day with meals. Take 2 tablets with nutritional supplements/snacks as needed clonidine HCl 0.1 mg tablet Take 3 [...] had catheter PD catheter placed 05/2018 at [facility], removed for peritonitis 11/2022 Anemia Assessment HEMOGLOBIN (G/DL) IN BLOOD g/dL 4.0 (12/12/22) 11.1 (11/28/22) 10.4 (10/24/22) 10.6 (10/03/22) 10.9 (08/27/22) PLATELETS 1000/mcL 262 (10/24/22) FERRITIN ng/mL 5007 [...] 130 (08/27/22) POTASSIUM (MMOL/L) IN SER/PLAS mEq/L 3.2 (12/12/22) 5.6 (11/28/22) 4.7 (10/24/22) 4.8 (10/10/22) 4.7 (08/27/22) BICARBONATE (CO2) mEq/L 28 (12/12/22) 24 (11/28/22) [...] 8.9 (08/27/22) PHOSPHATE (MG/DL) IN SER/PLAS mg/dL 1.8 (12/12/22) 5.3 (11/28/22) 4.4 (10/24/22) 4.5 (10/10/22) 5.2 (08/27/22) CALCIUM PHOSPHORUS PRODUCT, COR 16 (12/12/22) 49 [...] earliest nextmonth. We will schedule her at [facility] to have catheter placed mid January to [...] prior as residual function likely dropped somewhat. Gabriel Mena MD [ Signed And locked electronically On 12/21/2022 at 02:06:39 PM ] Transcribed: Gabriel Mena ( 12/21/2022 ) * Dialysis Note - Gabriel Mena MD - 12/21/2022 11:51 AM CST Date: Dec 21, 2022 Patient Name: Maricruz Vanegas : 1945 Chart #: [id number] Sex: F Patient Type: ESRD Modality: Hemodialysis Draw Hand: Gabriel Mena MD Location: [place] [phone] Schedule: -W- 2nd Shift Initial Access Date Regular Chronic Dialysis Began: 04/23/2018Initial Modality: Hemodialysis Initial Access used on first patient dialysis: AVF Current Access Access used for current outpatient dialysis: AVF Most recent History and Physical: 04/16/2018 Gabriel Mena MD [ Signed And locked electronically On 12/21/2022 at 10:51:40 AM ] Transcribed: Gabriel Mena MD ( 12/21/2022 ) documented in this encounter Plan of Treatment Not on file documented as of this encounter Visit Diagnoses Not on filedocumented in this encounter Care Teams Zig Zag Stitcher Relationship Specialty Start Date End Date Tyrell Schneider MD [address] [place] [address] PCP - General 10/27/18 documented as of this encounter
--- OUTSIDE RECORDS SUMMARY | 2023-02-22 16:20 | XMS_ITS | Encounter Summary ---
Author Name Unknown Organization [facility] Address [address] [place] [address] Care Team Providers Care Blanket Folder Name Role Phone Tyrell Schneider MD Primary Care Provider [phone] Encounter Details Date Type Department Care Team Description 10/03/2022 Treatment [facility] [address] [place] [address] Gabriel Mena MD [address] [place] [address] Social History Tobacco Use Types Packs/Day Years Used Date Smoking Tobacco: Never Assessed Sex and Gender Information Value Date Recorded Sex Assigned at Not on file Gender Identity Not on file Sexual Orientation Not on file documented as of this encounter Miscellaneous Notes * Dialysis Note - Gabriel Mena MD - 10/03/2022 3:05 PM CDT Date: Oct 03, 2022 Patient Name: Maricruz Vanegas : 1945 Chart #: [id number] Sex: F This patient was personally seen for a complete visit as part of routine monthly dialysis care. A review of the dialysis treatment, blood pressure, estimated dry weight, and recent lab values was made. These were discussed with the patient and staff as necessary. [employer] MACHINE: Gabriel Mena MD LOCATION: [phone] SCHEDULE: No Routine Schedule Subjective Tolerating dialysis well. 10/03: She feels overall well. No issues with PD. No new uremia symptoms. BP variable but overall atgoal by home BP monitoring. No CP, SOB, edema 08/27: She is doing ok. Stable treatments. No cloudy fluid or abd pain or fevers. However, she has had some dark discharge at her catheter site, mostly dark blood but getting small amount daily. It hurt slightly yesterday, not before or after this. No erythema at site. There is tiny amount of brown thick discharge on the dressing today. She confirms that it has been secured well, daily dressing esteban nge, using gent cream on it daily, and keeping it clean. 08/08: She has had issues with an ulcer in her eye, seeing ophtho weekly, improving now. PD going well. Brought in adequacy today. Went over phos in diet as higher this month. Wt is stable. BP is stable. Has had bleeding from PD catheter site externally intermittently last 2 weeks, small amount, no blood in fluid and no cloudy fluid and no other discharge or symptoms or signs of infection. She takes ASA 81mg, no other blood thinners. She doesn't think catheter got tugged at all. 06/27/22: She is doing great. She has no concerns. Compliant with dialysis. No change in urine. No uremia symptoms. Wt was up a little, did not change anything and back down to dry weight today. 05/16/22: She is doing well. She has no new concerns. Weight up to 100 lb, she is eating better. No edema. No SOB. No peritonitis symptoms or signs. 04/11/22: She is feeling well. No issues since last month. PD going well. 1 Kg below dry weight, lowering today, saw PCP and had some tests for losing weight and I discussed screening CT lungs with her today as well and she will ask PCP about this - no pulm symptoms that are new but heavy smoking history. 03/30: She is doing well. Got nicotine patches, is going to start using them and try to wean cigs further. PD going well, 2.5% bags, UF 500-900 ml/night. BP excellent. Wt under dry weight. No new symptoms. 02/14/22: Maricruz is seen by video today. She is at the PD clinic with PD RN Chelle. She is doing welltoday. She has no specific concerns. She got a new machine, missed one run because of this but new machine is working well. She has been using all green bags. All fluid clear. No abdominal pain or fevers. No edema in legs. 01/17/22: Maricruz feels well. She has no new concerns. Eye is healing. PD going well, wt 99-102 lbs, using all 1.5% bags, BP has been 130-150 systolic mostly and stable. She has no edema or SOB. PD fluid all clear. 10/25/21: Her goal is to quit smoking in next 1 month, then have back procedure. She is using nicotine replacement. BP controlled. PD going well, no change in prescription, all 2.5% bags, wt stable aswell and no edema or SOB. Residual function down on last adequacy, overall adequacy still ok. No uremia symptoms. Stopped eating eggs, will increase protein supplement ([employer]). She ran out of [employer], we are working on getting this refilled for her. 09/20/21: She is doing well. Small yellow drainage at PD catheter exit site but no pus and looks like small scab just got tugged with no surrounding erythema or pain and no fever or chills or cloudy fluid or abd pain. PD going well. Wt stable. BP controlled. She has no concerns. Quitting smoking next week, has nicotine replacement. 08/23/21: She has not had her procedure re-scheduled yet and is waiting to hear from [facility]. She feelsher breathing is better after we used red bag last time and got her weight back down. Wt fluctuating between 105-108 lbs recently, EDW 105 lbs. BP has been up and down some but mostly well controlledby home monitoring. She did not bring adequacy today, will bring next month, but with low prescripti on PD she continues to feel well without uremia symptoms and is compliant with therapy and all meds. 07/19/21: She is re-scheduling her procedure at [facility] to August. Her back and legs feel the same, ok if she doesn't do too much activity and takes the pain medication. She is having BM jason 2-3 days, butno issues with PD drain. She is using all 2.5% bags, about 500 mL UF on average and still has good UOP. Wt trending up since eating more cheese, adding daily to 3 eggs. She does have mild edema in legs now. BP has been excellent. No new SOB. NO peritonitis symptoms, exit site has been clear. 06/14/21: Maricruz is overall doing well. She has been having more canned foods higher in salt, wt is up 1 Kg from dry weight and her BP is up with this today. She has mild edema in her legs, but no SOB.She is going to start injection therapy to help stop smoking with [facility] this month. She has back surgery scheduled on August 02. Her residual function continues to be excellent, adequacy was excellenton last assessment so we continue to use a very low prescription for her PD. 05/24/21: She is doing well with dialysis, still requiring minimal PD. Having procedure on back nextmonth. No new symptoms or concerns otherwise. 04/19/21: Mraicruz is doing very well from the standpoint of dialysis. She is compliant, continues on low prescription. NO uremia symptoms. Forgot to bring adequacy, will do later this month. PD smooth without any recent issues, no abd pain, exit site perfect. Very trace edema. Her ongoing concern is back pain radiating down her legs and she has appt with surgeon at [facility] next week with x- rays scheduled. 03/15/21: Maricruz is doing well. She has ongoing back pain, pain medications are helping and she is also massaging at night and this helps. PD is doing well. She is at dry weight. She is using 2.5% bags. Her BP has been reasonably well controlled. 02/15/21: She was worried about change in deductible and didn't fill laxative and got constipated with nausea and vomited twice, symptoms resolved when she had a BM. She otherwise feels well. Adequacy was cancelled for unknown reason and will need to be repepeated. She feels well otherwise. 02/01/21: She still is struggling with back pain, reliant on oxycodone which does really help a lot. Her BP cuff broke so has not been taking it, higher than usual today and has been higher last couple of months compared to prior. No changes in meds. She denies SOB. Brings adequacy today, 1.6L of urine so still excellent UOP. No new symptoms and she is alternating 1.5% and 2.5% bags. 12/14/20: She is doing ok. Back surgery still not scheduled, which she is frustrated about. She plans to call to see where this is at. BP at home has been in same range, about 140/60's. No new edema. Bowels regular. Remains on low dose PD, residual function was lower on last test but still good residual function with adequate total kt/v. She is at dry weight. 11/23/20: Her back [facility]. Still same pain. No new symptoms. BP 140/60 at home or close to this. Wt stable. No uremia symptoms. 10/12/20: She is having progressively worsening pain in her low back, saw ortho, surgery is planned (sounds like a fusion procedure) at [facility] but it is not yet scheduled. Her appetite is so/so, takingsupplement. Her BP has been up, in part from pain but persistently elevated and had edema and needsdry weight adjusted (she is already down to 107 lbs after using 2.5% bags last week several times wi th additional UF). No nausea, vomiting. Uses senna and sorbitol to prevent constipation. 09/14/20: She is doing ok with PD. She is on very low prescription, planning to reduce down to 2.5L now only to use smaller 3L bag total and monitor closely for uremia symptoms. She has severe back pain radiating down legs and has surgery appt coming up, may need a procedure as she is very limited bypain now and it has been much worse. 08/17/20: She has progressive leg pain b/l, though 2/2 PAD and has appt with vascular tomorrow. No other new symptoms. PD going well. Wt is up, appetite has been ok and she is tolerating protein supplement. No edema or SOB. 07/13: She is doing well overall. No uremia symptoms. She does CCPD during afternoon, doesn't sleep well when doing it. She does not want to do CAPD, uncomfortable doing things filled. She is on low prescription, has residual function but felt much better after starting PD so we have kept her on low p rescription. She would like to try 2 fills with lower time and so we will do this, re-check adequacy today and repeat residual function to be sure still enough dialysis but I suspect we will be ok. She has PAD, has vascular follow-up and procedure being considered. 05/25: Doing great overall with no new symptoms and feels excellent. BP was higher, she changed labetalol to 600mg in am and 300mg in pm and BP now 130's-140's/60s-70's. Wt stable, CCPD going very well on low prescription. 04/20/20: She is doing very well, no new symptoms, BP stable and wt stable, tolerating CCPD very well. Brought in adequacy today and getting labs drawn today. 03/16: She is doing great, working with PCP on higher BS's but otherwise feels excellent and has no new symptoms and is using all 1.5% bags. Taking supplement for protein and she really likes these. 02/16: Maricruz is doing very well, reaching EDW, home BP's 130's/70's, using all 1.5% bags, no uremia symptoms, access clean and compliant with all dialysis. She has no SOB or edema. She is cutting backon smoking and hopes to quit in 2020, sees high cost and cough with smoking as stimulus to quit completely and I encouraged a quit date and treating herself with the money saved as added ways to try and help her quit. 01/12: Maricruz has no new complaints. She feels well overall. No abdominal pain, nausea, vomiting. Constipation controlled on multiple meds, says Sorbitol not to be covered starting February. Trulicity will be covered starting February, BS's have been high off this. Using all 1.5% bags on CCPD, stable weight, BP typically 130's systolic and no edema, SOB, or orthopnea. Trying to quit smoking. 12/15: Maricruz is doing well. She has no complaints today, dialysis going well, adequacy was excellent on last check. Her Wt is stable and BP is normal. She has very occasional nausea without vomiting. 11/17: She is doing well, continues to feel bloated but having BM's twice a day and no abd pain and overall feels well otherwise with no SOB or edema and tolerating dialysis well. Her wt on home scaleis 106 lbs, here 111 lbs and she says her scale is always lower so she is going to bring this in next time. Labs being drawn today. 10/13: She is doing well, good compliance with PD, working hard on protein in diet and gained a pound, still uing 1.5% bags for PD and this is going well. BP controlled, no edema, no SOB. 08/19/19: She complains of muscle's aching during day and night, not sure these are muscle cramps butshe would like to try holding lasix to see if this makes a difference. She otherwise feels excellent, is compliant with PD, has had no peritonitis or symptoms of such, and is doing well on PD with stable weight and BP is controlled. Adequacy excellent. Labs being drawn today. 07/21: She has no new complaints, doing well, wt is 103 lbs and changed EDW today. No edema or SOB. Labs not done Saturday so drawn today and adequacy is being done today so awaiting results. 06/30: Maricruz's doing great on PD. Wt stable, using all 1.5% bags, feels well. Only complaint is muscle cramps. 05/19: Visit done via TeleHealth with video technology today during - pandemic. Maricruz is doing very well. She is compliant with PD, feels well, is slightly below dry weight (adjusting today), and has no symptoms. Labs being drawn today. 04/14: Doing really well, tolerating PD well, no issues, no pain, clear fluid, and stable weight and BP. Labs being done today as she missed lab appt Saturday. 03/18: Overall doing well, tolerating PD well and no pain or issues. Her only complaint is cramps in legs after treatment, improves after eating a banana. Her albumin is also slightly lower, is taking supplement and trying to eat high protein diet but she fills up easily. 02/18: Doing great, feels well, no complaints and tolerating PD well. She ran out of cassettes briefly, just got them now, was doing manual bags last several days due to this so adequacy postponed for this month. 01/14: Maricruz is now doing great, doing PD every night, no issues, feels well with good appetite andexcellent energy levels. She is near ready to move into new space that has been outfitted. 12/17: Maricruz is doing quite well. Her PD fluid is clear, no issues, constipation is adequate with titration of softeners/laxatives but she does require a lot. She is eating better, albumin improving now, weight going up and adjusting EDW today. She is using mostly 2.5% bags now. 11/19: Doing great, no issues with PD, clear fluid, no and pain. Constipated today, on multiple agents and typically works well but sorbitol would be used next if needed. 10/22: She was constipated and now with miralax and colace and senna all taken twice daily she is having 2-3 soft BM's per day and her adb bloating is gone. She was doing tidal, but we are going to stop this as I don't think this was the issue. She is tolerating PD well, still feels full with 1L in her belly but is tolerating ok. Hgb drifted down <10 despite IV iron course, will get Mircera today. 09/17: She is overall doing well. She has trouble sleeping at start of the cycler use despite lower fluid volumes, feels full with 1L in her belly, able to fall asleep after first drain though and usually stay asleep and she then continues to sleep in.Offered other strategies, but she feels this is overall working well for her now. 24hr urine shows high residual function, kt/v from PD is only about 0.5 while residual is much higher but she feels much better after dialysis was started (energy levels much better, appetite better although up and down, etc). She does get some cramps, BP's have been lower and HR in 55-65 range. 08/13/18: She is feeling ok, has no specific complaints except feels tired and occasional nausea in the morning and feeling full with PD fills. 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 She felt tired doing this, so started doing cycler late afternoon 4pm, started to do this and while filled would do some work like cooking in the kitchen and carrying her tubing around from place to place. She says that ideally she would like to go to bed at 11pm and wake up at 8am and then have the whole day to do work. As for adequacy, she has kt/v renal that meets criteria, so she doesn't need much dialysis. Repeat adequacy is going to be re-done as she missed some urine. Labs are pending today. BP's are excellent at home and weight is stable with all 1.5% bags. 07/2018: She started cycler two nights ago, doing 1200 mL x4 over 8.5hrs with all 1.5% bags. Weight is stable, no edema, feels well, no alarms, and she is tolerating well. She woke up twice during fills and felt a little full, otherwise slept through them and tolerated well. No drain pain. Catheter care excellent, no abdominal pain. She has good BM's, soft and >1 per day. Going well so far! Adequacy to come today, brought in urine and dialysate. Review of Systems None reported. except above Exam Respiratory - Few scattered wheezes present with no crackles Cardiovascular - Regular rate. Regular rhythm. Gastrointestinal - mild distention unchanged Edema - No leg edema. PD catheter exit site - exit site clean, dry, no drainage on bandage AVF with good t/b Current Prescription (changed 08/13/18): CCPD, 2.5% bags, 1500 mL fills, 2 fills, 5hrs, no tidal Medication List Medication Sig Start Date albuterol [...] small amount to dialysis exit site daily prednisolone acetate (PF) 1% drops,suspension Instill 1 drop into left eye once a day 04/21/2018 repaglinide 1 mg tablet Take 1 tablet [...] changes were made. Treatment and Adequacy Assessment spKt/V (Daugirdas II) 1.3500 (06/13/18) BUN mg/dL 63 (08/27/22) 63 (08/08/22) 60 (07/24/22) CREATININE (MG/DL) IN SER/PLAS mg/dL 5.29 (08/27/22) 5.34 (08/08/22) 5.15 (07/24/22) KT/V, PERITONEAL L/wk 0.68 (08/08/22) 0.60 (04/11/22) 0.66 (01/29/22) KT/V, RESIDUAL L/wk 1.55 (08/08/22) 1.24 (04/11/22) 2.14 (01/29/22) Kt/V is adequate. Continue current prescription. Residual function down but continues to be good and fluctuates. No change in prescription necessaryat this time. BUN remains <75 Adequacy being done next month Peritoneal Dialysis Access Assessment Placed on: 06/2018 Surgeon - [facility] Staff and patient report access is working well. none 01/2019: had severe stenosis of AVF and had angioplasty PD access working well as of Feb 2019 Anemia Assessment HEMOGLOBIN (G/DL) IN BLOOD g/dL 10.9 (08/27/22) 10.6 (07/24/22) 10.9 (06/13/22) PLATELETS 1000/mcL 226 (12/16/19) 306 (06/11/18) 336 (05/16/18) WBC (BLOOD) 1000/mcL 8.62 (08/27/22) 8.91 (07/24/22) 9.94 (06/13/22) IRON SATURATION % 30 (07/19/21) 30 (06/14/21) 35 (05/24/21) FERRITIN ng/mL 1573 (08/27/22) 1626 (05/16/22) 1034 (02/14/22) Hemoglobin is at goal. Ferritin is above goal. Will adjust ELA and intravenous iron. Nutritional and Metabolic Assessment ALBUMIN (G/DL) g/dL 3.4 (08/27/22) 3.4 (07/24/22) 3.3 (06/13/22) BICARBONATE (CO2) mEq/L 29 (08/27/22) 29 (07/24/22) 32 (06/13/22) POTASSIUM (MMOL/L) IN SER/PLAS mEq/L 4.7 (08/27/22) 4.5 (07/24/22) 4.3 (06/13/22) Sodium mEq/L 130 (08/27/22) 135 (07/24/22) 140 (06/13/22) 25 OH VITAMIN D ng/mL 32.6 (02/14/22) 34.3 (02/15/21) 38.6 (08/17/20) Albumin is below goal. Encourage high biological value protein intake. Oral nutritional supplement program. Potassium is at goal. Continue protein supplement, trying to achieve goal of >3.5 currently. Going to try protein powder Bone and Mineral Metabolism Assessment CALCIUM mg/dL 8.4 (08/27/22) 8.8 (08/08/22) 10.4 (07/24/22) CALCIUM (MG/DL) CORRECTED FOR ALBUMIN IN SER/PLAS mg/dL 8.9 (08/27/22) 10.9 (07/24/22) 9.2 (06/13/22) CALCIUM PHOSPHORUS PRODUCT, COR 46 (08/27/22) 66 (07/24/22) 39 (06/13/22) PHOSPHATE (MG/DL) IN SER/PLAS mg/dL 5.2 (08/27/22) 5.2 (08/08/22) 6.1 (07/24/22) IPTH pg/mL 305 (08/27/22) 37 (07/24/22) 240 (06/13/22) Corrected calcium is above goal. Phosphorus is at goal. Intact PTH is at goal. Care team will adjust binders and oral vitamin D per protocol and continue to provide dietary education. Cardiovascular Assessment Blood pressure reviewed and is acceptable. Continue same cardiovascular medications. Estimated dry weight is appropriate. Transplant Status Patient is not a candidate. Age and co-morbidities Resuscitation Status Additional Comments: Overall, PD going well on low prescription No changes today Repeat labs today Adequacy next month Gabriel Mena MD [ Signed And locked electronically On 10/03/2022 at 03:07:29 PM ] Transcribed: Gabriel Mena ( 10/03/2022 ) documented in this encounter Plan of Treatment Not on file documented as of this encounter Visit Diagnoses Not on filedocumented in this encounter Care Teams Blanket Folder Relationship Specialty Start Date End Date Tyrell Schneider MD [address] [place] [address] PCP - General 10/27/18 documented as of this encounter
--- OUTSIDE RECORDS SUMMARY | 2023-02-22 16:20 | XMS_ITS | Encounter Summary ---
Author Name Unknown Organization [facility] [place] [place] Address [address] [facility] [address] [place] [address] Care Team Providers Care Egg Breaker Name Role Phone Tyrell Schneider MD Primary Care Provider [phone] Encounter Details Date Type Department Care Team Description 01/07/2023 Orders Only [facility] [place] [address] [place] [address] Gabriel Mena MD [address] [place] [address] Social History Tobacco Use Types [...] Date/Time Associated Diagnosis Comments HD KINETICS Routine 01/07/2023 POST CHEMISTRY Routine 01/07/2023 HEMATOLOGY Routine 01/07/2023 CHEMISTRY Routine 01/07/2023 SPECTRA [facility] LAB RESULTS Routine 01/07/2023 documented in this encounter Results * Spectra LUCERO Lab Results (01/07/2023) WSTDKT/V 4.5 LUCERO spKt/V Gotch 2.01 LUCERO eKdrt/V 2.48 LUCERO nPCR_HD 1.05 LUCERO PCR 39.75 LUCERO eKt/V ([place]) 1.70 LUCERO eNPCR 1.03 LUCERO eKt/V Gotch 1.64 LUCERO spKt/V (Daugirdas II) 2.02 LUCERO 01/07/2023 01/07/2023 Lucero Ordering Provider LAB BLOOD ORDERABLE S Performing Organization Address [facility]/ZIP Co de Phone Number LUCERO * (ABNORMAL) HEMATOLOGY (01/07/2023) Hemoglobin 9.5(L) 12.0 - 16.0 g/dL [facility] Hemoglobin x 3 28.5(L) 36.0 - 48.0 % [facility] 01/07/2023 01/09/2023 2:[address]ANT Narrative [facility] - 01/09/2023 Unless otherwise specified, test(s) performed at: [facility], [address] [place] [address], [place] [address] WAITER/WAITRESS CLUB: Eze Park M.D., Ph.D For any questions, please call customer service at FREQUENCY:OTHER Resulting Agency Comment Specimen source: Blood Gabriel Mena MD LAB BLOOD ORDERABLES Performing Organization Address [facility] de Phone Number [facility] * (ABNORMAL) HD KINETICS (01/07/2023) % Urea Reduction 84(H) 65 - 80 % [facility] 01/07/2023 01/09/2023 3:[address] Narrative Resulting Agency Comment Specimen source: Plasma Gabriel Mena MD LAB BLOOD ORDERABLES Performing Organization Address [facility] Co de Phone Number [facility] * POST CHEMISTRY (01/07/2023) BUN Post Dialysis 8 6 - 19 mg/dL [facility] 01/07/2023 01/09/2023 3:[address] ATTENDANT Narrative [facility] - 01/09/2023 Unless otherwise specified, test(s) performed at: [facility], [address] [place] [address], [place] [address] WAITER/WAITRESS CLUB: Eze Park M.D., Ph.D For any questions, please call customer service at FREQUENCY:OTHER Resulting Agency Comment Specimen source: Plasma Gabriel Mena MD LAB BLOOD ORDERABLES Performing Organization Address [facility] de Phone Number [facility] * (ABNORMAL) Spectrae Chemistry (01/07/2023) BUN 49(H) 6 - 19 mg/dL [facility] 01/07/2023 01/09/2023 3:[address] ATTENDANT Narrative [facility] - 01/09/2023 Unless otherwise specified, test(s) performed at: [facility], [address] [place] [address], [place] [address] WAITER/WAITRESS CLUB: Eze Park M.D., Ph.D For any questions, please call customer service at FREQUENCY:OTHER Resulting Agency Comment Specimen source: Serum Gabriel Mena MD LAB BLOOD ORDERABLES Performing Organization Address [facility] Co de Phone Number [facility] documented in this encounter Visit Diagnoses Not on filedocumented in this encounter Care Teams Egg Breaker Relationship Specialty Start Date End Date Tyrell Schneider MD [address] [place] [address] PCP - General 10/27/18 documented as of this encounter
--- OUTSIDE RECORDS SUMMARY | 2023-02-22 16:20 | XMS_ITS | Encounter Summary ---
Author Name Unknown Organization [facility] Address [address] [facility] [address] [place] [address] Care Team Providers Care Dental Office Manager Name Role Phone Tyrell Schneider MD Primary Care Provider [phone] Encounter Details Date Type Department Care Team Description 12/21/2022 Orders Only [facility] [place] [address] [place] [address] Gabriel Mena MD [address] [place] [address] Social History Tobacco Use Types [...] Priority Date/Time Associated Diagnosis Comments HEMATOLOGY Routine 12/21/2022 documented in this encounter Results * (ABNORMAL) HEMATOLOGY (12/21/2022) Hemoglobin 7.6(L) 12.0 - 16.0 g/dL [facility] Hemoglobin x 3 22.8(L) 36.0 - 48.0 % [facility] 12/21/2022 12/22/2022 7:5 1 AM SUBMARINE CABLE EQUIPMENT TECHNICIAN Narrative [facility] - 12/22/2022 Unless otherwise specified, test(s) performed at: [facility], [address] [place] [address], [place] [address] PROTECTION ANALYST: Eze Park M.D., Ph.D For any questions, please call customer service at FREQUENCY:OTHER Resulting Agency Comment Specimen source: Blood Gabriel Mena MD LAB BLOOD ORDERABLES [facility] documented in this encounter Visit Diagnoses Not on filedocumented in this encounter Care Teams Dental Office Manager Relationship Specialty Start Date End Date Tyrell Schneider MD [address] [place] [address] PCP - General 10/27/18 documented as of this encounter
--- OUTSIDE RECORDS SUMMARY | 2023-02-22 16:20 | XMS_ITS | Encounter Summary ---
Author Name Unknown Organization [facility] Address [address] [facility] [address] [place] [address] Care Team Providers Care Inspector Casing Name Role Phone Tyrell Schneider MD Primary Care Provider [phone] Encounter Details Date Type Department Care Team Description 12/26/2022 Orders Only [facility] [place] [address] [place] [address] Gabriel Mena MD [address] [place] [address] Social History Tobacco Use Types Packs/Day Years Used Date Smoking Tobacco: Never Assessed Sex and Gender Information Value Date Recorded Sex Assigned at Not on file Gender Identity Not on file Sexual Orientation Not on file documented as of this encounter Plan of Treatment Not on file documented as of this encounter Procedures Procedure Name Priority Date/Time Associated Diagnosis Comments CHEMISTRY Routine 12/26/2022 documented in this encounter Results * (ABNORMAL) Spectrae Chemistry (12/26/2022) Potassium 4.4 3.5 - 5.1 mEq/L [facility] Phosphorus 6.4(H) 2.6 - 4.5 mg/dL [facility] 12/26/2022 12/27/2022 2:5 1 PM ASSISTANT HVAC MECHANIC Narrative [facility] - 12/27/2022 Unless otherwise specified, test(s) performed at: [facility], [address] [place] [address], [place] [address] FIREMAN HELPER: Eze Park M.D., Ph.D For any questions, please call customer service at FREQUENCY:OTHER Resulting Agency Comment Specimen source: Serum Gabriel Mena MD LAB BLOOD ORDERABLES [facility] documented in this encounter Visit Diagnoses Not on filedocumented in this encounter Care Teams Inspector Casing Relationship Specialty Start Date End Date Tyrell Schneider MD [address] [place] [address] PCP - General 10/27/18 documented as of this encounter
--- OUTSIDE RECORDS SUMMARY | 2023-02-22 16:20 | XMS_ITS | Encounter Summary ---
Author Name Unknown Organization [facility] Address [address] [address] [facility] [address] [place] [address] Care Team Providers Care Postage Machine Operator Name Role Phone Tyrell Schneider MD Primary Care Provider [phone] Encounter Details Date Type Department Care Team Description 10/24/2022 Orders Only [facility] [place] [address] [place] [address] Gabriel Mena MD [address] [place] [address] Social History Tobacco Use Types [...] Priority Date/Time Associated Diagnosis Comments HEMATOLOGY Routine 10/24/2022 CHEMISTRY Routine 10/24/2022 documented in this encounter Results * (ABNORMAL) Spectrae Chemistry (10/24/2022) BUN 96(H) 6 - 19 mg/dL [facility] Creatinine 5.12(H) 0.60 - 1.30 mg/dL [facility] BUN/Creatinine Ratio 18.8 10.0 - 20.0 [facility] Sodium 134(L) 136 - 145 mEq/L [facility] Potassium 4.7 3.5 - 5.1 mEq/L [facility] Chloride 98 96 - 108 mEq/L [facility] Bicarbonate (CO2) 28 20 - 31 mEq/L [facility] Calcium 8.9 8.7 - 10.4 mg/dL [facility] Comment: Please note change in reference range. Corrected Calcium 9.5 8.7 - 10.4 mg/dL [facility] Comment: Corrected Calcium is not equivalent to measured Ionized Calcium. Phosphorus 4.4 2.6 - 4.5 mg/dL [facility] Calcium Phosphorus Product 39 0 - 54 [facility] Calcium Phosporus Product, Cor 42 0 - 54 [facility] Albumin 3.3(L) 3.5 - 5.2 g/dL [facility] Iron 146 30 - 160 mcg/dL [facility] UIBC 91(L) 155 - 355 mcg/dL [facility] TIBC 237 185 - 515 mcg/dL [facility] Iron Saturation (TSat) 62(H) 20 - 55 % [facility] 10/24/2022 10/25/2022 11: 31 AM CDT Narrative [facility] - 10/25/2022 Unless otherwise specified, test(s) performed at: [facility], [address] [place] [address], [place] [address] OILER BANDER: Eze Park M.D., Ph.D For any questions, please call customer service at FREQUENCY:MONTHLY Resulting Agency Comment Specimen source: Serum Gabriel Mena MD LAB BLOOD ORDERABLES [facility] * (ABNORMAL) HEMATOLOGY (10/24/2022) Neutrophils 74.9 40.0 - 75.0 % [facility] Lymphocytes Relative 11.6(L) 19.0 - 48.0 % [facility] Monocytes 5.7 3.0 - 10.0 % [facility] Eosinophils Relative 5.5 0.0 - 7.0 % [facility] Basophils Relative 0.3 0.0 - 1.5 % [facility] JUANITO 2.0 0.0 - 4.0 % [facility] WBC 8.47 4.80 - 10.80 1000/mcL [facility] RBC 3.43(L) 4.20 - 5.40 mill/mcL [facility] Hematocrit 32.0(L) 37.0 - 47.0 % [facility] MCV 93 80 - 100 fl [facility] MCH 30.3 27.0 - 31.0 pg [facility] MCHC 32.5 30.0 - 36.0 g/dL [facility] RDW 16.4(H) 11.5 - 14.5 % [facility] Hemoglobin 10.4(L) 12.0 - 16.0 g/dL [facility] Hemoglobin x 3 31.2(L) 36.0 - 48.0 % [facility] Platelets 262 130 - 400 1000/mcL [facility] 10/24/2022 10/25/2022 11: 15 AM CDT Narrative [facility] - 10/25/2022 Unless otherwise specified, test(s) performed at: [facility], [address] [place] [address], [place] [address] OILER BANDER: Eze Park M.D., Ph.D For any questions, please call customer service at FREQUENCY:MONTHLY Resulting Agency Comment Specimen source: Blood Gabriel Mena MD LAB BLOOD ORDERABLES [facility] documented in this encounter Visit Diagnoses Not on filedocumented in this encounter Care Teams Postage Machine Operator Relationship Specialty Start Date End Date Tyrell Schneider MD [address] [facility] [address] PCP - General 10/27/18 documented as of this encounter
--- OUTSIDE RECORDS SUMMARY | 2023-02-22 16:20 | XMS_ITS | Encounter Summary ---
Author Name Unknown Organization [facility] [place] [place] Address [address] [place] [address] Care Team Providers Care Contracting Analyst Name Role Phone Tyrell Schneider MD Primary Care Provider [phone] Encounter Details Date Type Department Care Team Description 08/27/2022 Treatment [facility] [place] [address] [place] [address] Gabriel Mena MD [address] [place] [address] Social History Tobacco Use Types Packs/Day Years Used Date Smoking Tobacco: Never Assessed Sex and Gender Information Value Date Recorded Sex Assigned at Not on file Gender Identity Not on file Sexual Orientation Not on file documented as of this encounter Miscellaneous Notes * Dialysis Note - Gabriel Mena MD - 08/27/2022 3:07 PM CDT Date: Aug 27, 2022 Patient Name: Maricruz Vanegas : 1945 Chart #: [id number] Sex: F This patient was personally seen for a complete visit as part of routine monthly dialysis care. A review of the dialysis treatment, blood pressure, estimated dry weight, and recent lab values was made. These were discussed with the patient and staff as necessary. PARK MAINTAINER: Gabriel Mena MD LOCATION: [phone] SCHEDULE: No Routine Schedule Subjective Tolerating dialysis well. 08/27: She is doing ok. Stable treatments. [...] protein supplement (Novasource). She ran out of Vertra, we are working on getting this refilled [...] yet and is waiting to hear from [facility]. She feelsher breathing is better after we [...] 07/19/21: She is re-scheduling her procedure at [facility] to August. Her back and legs feel [...] injection therapy to help stop smoking with [facility] this month. She has back surgery scheduled on August 02. Her residual function continues to be excellent, adequacy was excellenton last assessment so we continue to use a very low prescription for her PD. 05/24/21: She is doing well with dialysis, still requiring minimal PD. Having procedure on back nextmonth. No new symptoms or concerns otherwise. 04/19/21: Maricruz is doing very well from the standpoint of dialysis. She is compliant, continues on low prescription. NO uremia symptoms. Forgot to bring adequacy, will do later this month. PD smooth without any recent issues, no abd pain, exit site perfect. Very trace edema. Her ongoing concern is back pain radiating down her legs and she has appt with surgeon at [facility] next week with x- rays scheduled. 03/15/21: [...] 11/23/20: Her back surgery was postponed with [facility]. Still same pain. No new symptoms. BP 140/60 at home or close to this. Wt stable. No uremia symptoms. 10/12/20: She is having progressively worsening pain in her low back, saw ortho, surgery is planned (sounds like a fusion procedure) at [facility] but it is not yet scheduled. Her [...] She is using mostly 2.5% bags now. 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 Regular rhythm. No murmur heard. Gastrointestinal - mild distention unchanged Edema - No leg edema. PD catheter exit site - exit site clean, dry, small yellow crust, no blood AVF with good t/b Current Prescription (changed 08/13/18): CCPD, 2.5% bags, 1500 mL fills, 2 fills, 5hrs, no tidal Medication List Medication Sig Start Date acetaminophen 325 mg tablet Take 1 tablet by mouth once a day albuterol sulfate 2.5 mg/3 mL (0.083 %) [...] skin twice a day as needed 04/21/2018 Vitamin D3 (cholecalciferol (vitamin d3)) 25 mcg (1,000 unit) capsule 1 capsule by mouth once a day Allergy List Allergen Reaction Reaction Severity Onset Date ampicillin Hives atenolol Skin rash atorvastatin Back pain fish oil Skin rash gatifloxacin Nausea/Vomiting gemfibrozil Itching hydrochlorothiazide Flushing (Red Skin) lisinopril Skin rash losartan Itching niacin Itching pravastatin Back pain simvastatin Back pain Medications reviewed and no changes were made. Treatment and Adequacy Assessment spKt/V (Daugirdas II) 1.3500 (06/13/18) BUN mg/dL 63 (08/08/22) 60 (07/24/22) 47 (06/13/22) CREATININE (MG/DL) IN SER/PLAS mg/dL 5.34 (08/08/22) 5.15 (07/24/22) 4.88 (06/13/22) KT/V, PERITONEAL L/wk 0.68 (08/08/22) 0.60 (04/11/22) 0.66 (01/29/22) KT/V, RESIDUAL L/wk 1.55 (08/08/22) 1.24 (04/11/22) 2.14 (01/29/22) Kt/V is adequate. Continue current prescription. Residual function down ut continues to be good and fluctuates. No change in prescription necessary at this time. BUN remains <75 Adequacy being done today Peritoneal Dialysis Access Assessment Placed on: 06/2018 Surgeon - [facility] Staff and patient report access is working well. none 01/2019: had severe stenosis of AVF and had angioplasty PD access working well as of Feb 2019 Anemia Assessment HEMOGLOBIN (G/DL) IN BLOOD g/dL 10.6 (07/24/22) 10.9 (06/13/22) 10.9 (05/16/22) PLATELETS 1000/mcL 226 (12/16/19) 306 (06/11/18) 336 (05/16/18) WBC (BLOOD) 1000/mcL 8.91 (07/24/22) 9.94 (06/13/22) 10.08 (05/16/22) IRON SATURATION % 30 (07/19/21) 30 (06/14/21) 35 (05/24/21) FERRITIN ng/mL 1626 (05/16/22) 1034 (02/14/22) 1228 (12/12/21) Hemoglobin is at goal. Ferritin is above goal. Will adjust ELA and intravenous iron. Nutritional and Metabolic Assessment ALBUMIN (G/DL) g/dL 3.4 (07/24/22) 3.3 (06/13/22) 3.5 (05/16/22) BICARBONATE (CO2) mEq/L 29 (07/24/22) 32 (06/13/22) 29 (05/16/22) POTASSIUM (MMOL/L) IN SER/PLAS mEq/L 4.5 (07/24/22) 4.3 (06/13/22) 4.2 (05/16/22) Sodium mEq/L 135 (07/24/22) 140 (06/13/22) 138 (05/16/22) 25 OH VITAMIN D ng/mL 32.6 (02/14/22) 34.3 (02/15/21) 38.6 (08/17/20) Albumin is below goal. Encourage high biological value protein intake. Oral nutritional supplement program. Potassium is at goal. Continue protein supplement, trying to achieve goal of >3.5 currently. Going to try protein powder Bone and Mineral Metabolism Assessment CALCIUM mg/dL 8.8 (08/08/22) 10.4 (07/24/22) 8.6 (06/13/22) CALCIUM (MG/DL) CORRECTED FOR ALBUMIN IN SER/PLAS mg/dL 10.9 (07/24/22) 9.2 (06/13/22) 10.0 (05/16/22) CALCIUM PHOSPHORUS PRODUCT, COR 66 (07/24/22) 39 (06/13/22) 65 (05/16/22) PHOSPHATE (MG/DL) IN SER/PLAS mg/dL 5.2 (08/08/22) 6.1 (07/24/22) 4.2 (06/13/22) IPTH pg/mL 37 (07/24/22) 240 (06/13/22) 69 (05/16/22) Corrected calcium is above goal. Phosphorus is at goal. Intact PTH is below goal. Care team will adjust binders and oral vitamin D per protocol and continue to provide dietary education. Hold VIt D, monitor Ca and PTH Cardiovascular Assessment Blood pressure reviewed and is acceptable. Continue same cardiovascular medications. Estimated dry weight is appropriate. Transplant Status Patient is not a candidate. Age and co-morbidities Resuscitation Status Additional Comments: Overall, PD going well on low prescription Holding all Vit D Repeat labs today Small amount of discharge at cath site, no signs of peritonitis. No erythema at exit site. I will give short course of Keflex and she will monitor site and continue daily dressing change and gent cream daily and she will notify PD nurse if it does not resolve with this. She knows to call immediately if increasing discharge, cloudy fluid, erythema at exit site, pus is seen, or fever. Gabriel Mena MD [ Signed And locked electronically On 08/27/2022 at 03:11:43 PM ] Transcribed: Gabriel Mena ( 08/27/2022 ) documented in this encounter Plan of Treatment Not on file documented as of this encounter Visit Diagnoses Not on filedocumented in this encounter Care Teams Contracting Analyst Relationship Specialty Start Date End Date Tyrell Schneider MD [address] [place] [address] PCP - General 10/27/18 documented as of this encounter
--- OUTSIDE RECORDS SUMMARY | 2023-02-22 16:20 | XMS_ITS | Encounter Summary ---
Author Name Unknown Organization [facility] Address [address] [facility] [address] [place] [address] Care Team Providers Care Clam Treader Name Role Phone Tyrell Schneider MD Primary Care Provider [phone] Encounter Details Date Type Department Care Team Description 10/10/2022 Orders Only [facility] [place] [address] [place] [address] Gabriel Mena MD [address] [place] [address] Social History Tobacco Use Types [...] Priority Date/Time Associated Diagnosis Comments CHEMISTRY Routine 10/10/2022 documented in this encounter Results * (ABNORMAL) Spectrae Chemistry (10/10/2022) BUN 65(H) 6 - 19 mg/dL [facility] Creatinine 4.58(H) 0.60 - 1.30 mg/dL [facility] BUN/Creatinine Ratio 14.2 10.0 - 20.0 [facility] Sodium 136 136 - 145 mEq/L [facility] Potassium 4.8 3.5 - 5.1 mEq/L [facility] Chloride 102 96 - 108 mEq/L [facility] Bicarbonate (CO2) 27 20 - 31 mEq/L [facility] Calcium 8.9 8.7 - 10.4 mg/dL [facility] Comment: Please note change in reference range. Corrected Calcium 9.2 8.7 - 10.4 mg/dL [facility] Comment: Corrected Calcium is not equivalent to measured Ionized Calcium. Phosphorus 4.5 2.6 - 4.5 mg/dL [facility] Calcium Phosphorus Product 40 0 - 54 [facility] Calcium Phosporus Product, Cor 41 0 - 54 [facility] Albumin 3.6 3.5 - 5.2 g/dL [facility] Iron 90 30 - 160 mcg/dL [facility] UIBC 129(L) 155 - 355 mcg/dL [facility] TIBC 219 185 - 515 mcg/dL [facility] Iron Saturation (TSat) 41 20 - 55 % [facility] 10/10/2022 10/13/2022 7:4 7 AM CDT Narrative [facility] - 10/13/2022 Unless otherwise specified, test(s) performed at: [facility], [address] [place] [address], [place] [address] GAS OR PETROLEUM OPERATOR: Eze Park M.D., Ph.D For any questions, please call customer service at FREQUENCY:OTHER Resulting Agency Comment Specimen source: Serum Gabriel Mena MD LAB BLOOD ORDERABLES [facility] documented in this encounter Visit Diagnoses Not on filedocumented in this encounter Care Teams Clam Treader Relationship Specialty Start Date End Date Tyrell Schneider MD [address] [place] [address] PCP - General 10/27/18 documented as of this encounter
--- OUTSIDE RECORDS SUMMARY | 2023-02-22 16:20 | XMS_ITS | Encounter Summary ---
Author Name Unknown Organization [facility] [place] Address [address] [facility] [address] [facility] [address] [place] [address] Care Team Providers Care Feed Miller Name Role Phone Tyrell Schneider MD Primary Care Provider Encounter Details Date Type Department Care Team Description 01/09/2023 Orders Only [facility] [place] [address] [place] [address] Gabriel Mena MD [address] [place] [address] Social History Tobacco Use Types [...] Priority Date/Time Associated Diagnosis Comments HEMATOLOGY Routine 01/09/2023 documented in this encounter Results * (ABNORMAL) HEMATOLOGY (01/09/2023) Hemoglobin 9.5(L) 12.0 - 16.0 g/dL [facility] Hemoglobin x 3 28.5(L) 36.0 - 48.0 % [facility] 01/09/2023 01/11/2023 7:3 5 AM SCANNING CLERK Narrative [facility] - 01/11/2023 Unless otherwise specified, test(s) performed at: [facility], [address] [place] [address], [place] [address] DATA MODELER: Eze Park M.D., Ph.D For any questions, please call customer service at FREQUENCY:OTHER Resulting Agency Comment Specimen source: Blood Gabriel Mena MD LAB BLOOD ORDERABLES [facility] documented in this encounter Visit Diagnoses Not on filedocumented in this encounter Care Teams Feed Miller Relationship Specialty Start Date End Date Tyrell Schneider MD [address] [place] [address] PCP - General 10/27/18 documented as of this encounter
--- OUTSIDE RECORDS SUMMARY | 2023-02-22 16:20 | XMS_ITS | Encounter Summary ---
Author Name Unknown Organization [facility] [place] Address [address] [place] [address] Care Team Providers Care Commodity Loan Clerk Name Role Phone Tyrell Schneider MD Primary Care Provider [phone] Encounter Details Date Type Department Care Team Description 11/27/2022 Treatment [facility] [place] [address] [place] [address] Alfonzo Hernandez MD [address] [place] [address] Social History Tobacco Use Types Packs/Day Years Used Date Smoking Tobacco: Never Assessed Sex and Gender Information Value Date Recorded Sex Assigned at Not on file Gender Identity Not on file Sexual Orientation Not on file documented as of this encounter Plan of Treatment Not on file documented as of this encounter Visit Diagnoses Not on filedocumented in this encounter Care Teams Commodity Loan Clerk Relationship Specialty Start Date End Date Tyrell Schneider MD [address] [place] [address] PCP - General 10/27/18 documented as of this encounter
--- OUTSIDE RECORDS SUMMARY | 2023-02-22 16:20 | XMS_ITS | Encounter Summary ---
Author Name Unknown Organization [facility] [place] Address [address] [facility] [facility] [address] [facility] [address] [place] [address] Care Team Providers Care Aircraft Engine Mechanic Supervisor Name Role Phone Tyrell Schneider MD Primary Care Provider [phone] Encounter Details Date Type Department Care Team Description 08/27/2022 Orders Only [facility] [place] [address] [place] [address] Gabriel Mena MD [address] [place] [address] Social History Tobacco Use Types [...] Priority Date/Time Associated Diagnosis Comments HEMATOLOGY Routine 08/27/2022 CHEMISTRY Routine 08/27/2022 CHEMISTRY Routine 08/27/2022 documented in this encounter Results * (ABNORMAL) Spectrae Chemistry (08/27/2022) BUN 63(H) 6 - 19 mg/dL [facility] Creatinine 5.29(H) 0.60 - 1.30 mg/dL [facility] BUN/Creatinine Ratio 11.9 10.0 - 20.0 [facility] Sodium 130(L) 136 - 145 mEq/L [facility] Potassium 4.7 3.5 - 5.1 mEq/L [facility] Chloride 96 96 - 108 mEq/L [facility] Bicarbonate (CO2) 29 20 - 31 mEq/L [facility] Calcium 8.4(L) 8.7 - 10.4 mg/dL [facility] Comment: Please note change in reference range. Corrected Calcium 8.9 8.7 - 10.4 mg/dL [facility] Comment: Corrected Calcium is not equivalent to measured Ionized Calcium. Phosphorus 5.2(H) 2.6 - 4.5 mg/dL [facility] Calcium Phosphorus Product 44 0 - 54 [facility] Calcium Phosporus Product, Cor 46 0 - 54 [facility] Alkaline Phosphatase 67 35 - 104 U/L [facility] Albumin 3.4(L) 3.5 - 5.2 g/dL [facility] Magnesium 2.4 1.6 - 2.6 mg/dL [facility] Iron 96 30 - 160 mcg/dL [facility] UIBC 141(L) 155 - 355 mcg/dL [facility] TIBC 237 185 - 515 mcg/dL [facility] Iron Saturation (TSat) 41 20 - 55 % [facility] Ferritin 1,573(H) 10 - 291 ng/mL [facility] Comment: Verified by repeat analysis. 08/27/2022 08/30/2022 4:2 3 PM CDT Narrative [facility] - 08/30/2022 Unless otherwise specified, test(s) performed at: [facility], [address] [place] [address], [place] [address] CALCINER OPERATOR HELPER: Eze Park M.D., Ph.D For any questions, please call customer service at FREQUENCY:MONTHLY Resulting Agency Comment Specimen source: Serum Gabriel Mena MD LAB BLOOD ORDERABLES [facility] * (ABNORMAL) HEMATOLOGY (08/27/2022) Neutrophils 79.8(H) 40.0 - 75.0 % [facility] Lymphocytes Relative 7.1(L) 19.0 - 48.0 % [facility] Monocytes 4.3 3.0 - 10.0 % [facility] Eosinophils Relative 7.3(H) 0.0 - 7.0 % [facility] Basophils Relative 0.4 0.0 - 1.5 % [facility] JUANITO 1.1 0.0 - 4.0 % [facility] WBC 8.62 4.80 - 10.80 1000/mcL [facility] RBC 3.52(L) 4.20 - 5.40 mill/mcL [facility] Hematocrit 33.8(L) 37.0 - 47.0 % [facility] MCV 96 80 - 100 fl [facility] MCH 30.9 27.0 - 31.0 pg [facility] MCHC 32.1 30.0 - 36.0 g/dL [facility] RDW 16.1(H) 11.5 - 14.5 % [facility] Hemoglobin 10.9(L) 12.0 - 16.0 g/dL [facility] Hemoglobin x 3 32.7(L) 36.0 - 48.0 % [facility] 08/27/2022 08/30/2022 12: 48 PM CDT Narrative [facility] - 08/30/2022 Unless otherwise specified, test(s) performed at: [facility], [address] [place] [address], [place] [address] CALCINER OPERATOR HELPER: Eze Park M.D., Ph.D For any questions, please call customer service at FREQUENCY:MONTHLY Resulting Agency Comment Specimen source: Blood Gabriel Mena MD LAB BLOOD ORDERABLES [facility] * (ABNORMAL) Spectrae Chemistry (08/27/2022) PTH 305(H) 16 - 80 pg/mL [facility] 08/27/2022 08/30/2022 12: 24 PM CDT Narrative [facility] - 08/30/2022 Unless otherwise specified, test(s) performed at: [facility], [address] [facility], [place] [address] CALCINER OPERATOR HELPER: Eze Park M.D., Ph.D For any questions, please call customer service at FREQUENCY:MONTHLY Resulting Agency Comment Specimen source: Plasma Gabriel Mena MD LAB BLOOD ORDERABLES Performing Organization Address City/State/[facility] Co de Phone Number [facility] documented in this encounter Visit Diagnoses Not on filedocumented in this encounter Care Teams Aircraft Engine Mechanic Supervisor Relationship Specialty Start Date End Date Tyrell Schneider MD [address] [place] [address] PCP - General 10/27/18 documented as of this encounter
--- OUTSIDE RECORDS SUMMARY | 2023-02-22 16:20 | XMS_ITS | Encounter Summary ---
Author Name Unknown Organization [facility] Address [address] [facility] [address] [facility] [address] [place] [address] Care Team Providers Care Director Patient Name Role Phone Tyrell Schneider MD Primary Care Provider [phone] Encounter Details Date Type Department Care Team Description 12/12/2022 Orders Only [facility] [place] [address] [place] [address] Gabriel Mena MD [address] [place] [address] Social History Tobacco Use Types Packs/Day Years Used Date Smoking Tobacco: Never Assessed Sex and Gender Information Value Date Recorded Sex Assigned at Not on file Gender Identity Not on file Sexual Orientation Not on file documented as of this encounter Plan of Treatment Not on file documented as of this encounter Procedures Procedure Name Priority Date/Time Associated Diagnosis Comments SPECIAL CHEMISTRY Routine 12/12/2022 IMMUNO CHEMISTRY Routine 12/12/2022 TRACE ELEMENTS Routine 12/12/2022 HEMATOLOGY Routine 12/12/2022 CHEMISTRY Routine 12/12/2022 CHEMISTRY Routine 12/12/2022 documented in this encounter Results * (ABNORMAL) HEMATOLOGY (12/12/2022) Neutrophils 87.1(H) 40.0 - 75.0 % [facility] Lymphocytes Relative 6.0(L) 19.0 - 48.0 % [facility] Monocytes 4.3 3.0 - 10.0 % [facility] Eosinophils Relative 1.1 0.0 - 7.0 % [facility] Basophils Relative 0.2 0.0 - 1.5 % [facility] JUANITO 1.2 0.0 - 4.0 % [facility] WBC 16.31(H) 4.80 - 10.80 1000/mcL [facility] RBC 1.34(L) 4.20 - 5.40 mill/mcL [facility] Hematocrit 13.0(L) 37.0 - 47.0 % [facility] Comment: Verified by repeat analysis. MCV 97 80 - 100 fl [facility] MCH 30.1 27.0 - 31.0 pg [facility] MCHC 31.1 30.0 - 36.0 g/dL [facility] RDW 21.0(H) 11.5 - 14.5 % [facility] Hemoglobin 4.0(L) 12.0 - 16.0 g/dL [facility] Comment: Verified by repeat analysis. Hemoglobin x 3 12.0(L) 36.0 - 48.0 % [facility] 12/12/2022 12/13/2022 2:5 0 AM CDT Narrative [facility] - 12/14/2022 Unless otherwise specified, test(s) performed at: [facility], [address] [place] [address], [place] [address] MILL OPERATOR: Eze Park M.D., Ph.D For any questions, please call customer service at FREQUENCY:MONTHLY Resulting Agency Comment Specimen source: Blood Gabriel Mena MD LAB BLOOD ORDERABLES [facility] * TRACE ELEMENTS (12/12/2022) Aluminum 7 0 - 10 mcg/L [facility] Comment: This test was developed and its performance characteristics determined by [facility]. It has not been cleared or approved by the FDA. The laboratory is regulated under CLIA as qualified to perform high complexity testing. This test is used for clinical purposes. It should not be regarded as investigational or for research. 12/12/2022 12/13/2022 3:3 1 AM CDT Narrative [facility] - 12/13/2022 Unless otherwise specified, test(s) performed at: [facility], [address] [place] [address], [place] [address] MILL OPERATOR: Eze Park M.D., Ph.D For any questions, please call customer service at FREQUENCY:MONTHLY Resulting Agency Comment Specimen source: Serum Gabriel Mena MD LAB BLOOD ORDERABLES Performing Organization Address City/[facility] Co de Phone Number [facility] * (ABNORMAL) SPECIAL CHEMISTRY (12/12/2022) Vitamin B-12 [...] Mena MD LAB BLOOD BANK TEST ORDERABLES Performing Organization Address [facility] Co de Phone Number [facility] * (ABNORMAL) Spectrae Chemistry (12/12/2022) BUN 62(H) 6 - 19 mg/dL [facility] Creatinine 3.72(H) 0.60 - 1.30 mg/dL [facility] BUN/Creatinine Ratio 16.7 10.0 - 20.0 [facility] Sodium 136 136 - 145 mEq/L [facility] Potassium 3.2(L) 3.5 - 5.1 mEq/L [facility] Chloride 101 96 - 108 mEq/L [facility] Bicarbonate (CO2) 28 20 - 31 mEq/L [facility] Calcium 8.1(L) 8.7 - 10.4 mg/dL [facility] Comment: Please note change in reference range. Corrected Calcium 9.1 8.7 - 10.4 mg/dL [facility] Comment: Corrected Calcium is not equivalent to measured Ionized Calcium. Phosphorus 1.8(L) 2.6 - 4.5 mg/dL [facility] Calcium Phosphorus Product 15 0 - 54 [facility] Calcium Phosporus Product, Cor 16 0 - 54 [facility] Alkaline Phosphatase 60 35 - 104 U/L [facility] Albumin 2.8(L) 3.5 - 5.2 g/dL [facility] Magnesium 2.0 1.6 - 2.6 mg/dL [facility] Ferritin 5,007(H) 10 - 291 ng/mL [facility] Comment: Verified by repeat analysis. Iron 105 30 - 160 mcg/dL [facility] UIBC 94(L) 155 - 355 mcg/dL [facility] TIBC 199 185 - 515 mcg/dL [facility] Iron Saturation (TSat) 53 20 - 55 % [facility] 12/12/2022 12/13/2022 3:2 2 AM CDT Narrative [facility] - 12/13/2022 Unless otherwise specified, test(s) performed at: [facility], [address] [place] [address], [place] [address] MILL OPERATOR: Eze Park M.D., Ph.D For any questions, please call customer service at FREQUENCY:MONTHLY Resulting Agency Comment Specimen source: Serum Gabriel Mena MD LAB BLOOD ORDERABLES [facility] * IMMUNO CHEMISTRY [...] to MMWR February 02, 2005/Vol.54 (No. 16); 03-05, and for healthcare workers, refer to MMWR January 30, 2013/Vol.62 (No. 10); -18. Reference Range: <10 mIU/mL ? Non-Immune >=10 mIU/mL ?Immune The magnitude of the measured result above 10 mIU/mL is not indicative of the total amount of antibody present. Hepatitis C Antibody Nonreactive Nonreactive [facility] Comment: No HCV antibody detected. The above test result was obtained using [employer] IM chemiluminescent method. Results obtained with different [...] [facility] * (ABNORMAL) Spectrae Chemistry (12/12/2022) PTH 376(H) 16 - 80 pg/mL [facility] 12/12/2022 12/13/2022 2:4 6 AM CDT Narrative [facility] - 12/13/2022 Unless otherwise specified, test(s) performed at: [facility], [address] [place] [address], [place] [address] MILL OPERATOR: Eze Park M.D., Ph.D For any questions, please call customer service at FREQUENCY:MONTHLY Resulting Agency Comment Specimen source: Plasma Gabriel Mena MD LAB BLOOD ORDERABLES [facility] documented in this encounter Visit Diagnoses Not on filedocumented in this encounter Care Teams Director Patient Relationship Specialty Start Date End Date Tyrell Schneider MD [address] [place] [address] PCP - General 10/27/18 documented as of this encounter
--- OUTSIDE RECORDS SUMMARY | 2023-02-22 16:20 | XMS_ITS | Encounter Summary ---
Author Name Unknown Organization [facility] Address [address] [facility] [address] [place] [address] Care Team Providers Care Chore Tender Name Role Phone Tyrell Schneider MD Primary Care Provider [phone] Encounter Details Date Type Department Care Team Description 11/07/2022 Orders Only [facility] [place] [address] [place] [address] Gabriel Mena MD [address] [place] [address] Social History Tobacco Use Types Packs/Day Years Used Date Smoking Tobacco: Never Assessed Sex and Gender Information Value Date Recorded Sex Assigned at Not on file Gender Identity Not on file Sexual Orientation Not on file documented as of this encounter Plan of Treatment Not on file documented as of this encounter Procedures Procedure Name Priority Date/Time Associated Diagnosis Comments URINE CLEARANCE Routine 11/07/2022 PDF CHEMISTRY Routine 11/07/2022 PD ADEQUACY Routine 11/07/2022 PD ADEQUACY Routine 11/07/2022 PATIENT INFORMATION Routine 11/07/2022 PATIENT INFORMATION Routine 11/07/2022 PATIENT INFORMATION Routine 11/07/2022 CHEMISTRY Routine 11/07/2022 documented in this encounter Results * (ABNORMAL) URINE CLEARANCE (11/07/2022) Urea Nitrogen, Urine Timed 425 mg/dL [facility] Urea Nitrogen, Urine 24 Hr 5.5(L) 12.0 - 20.0 g/24 hr [facility] Urea Clear, Urine Norm 5.1(L) 64.0 - 99.0 mL/min [facility] Urea Clearance, Urine 4.0(L) 64.0 - 99.0 mL/min [facility] Urea Clear, Urine Norm Wkly 40 L/wk [facility] Creatinine, Urine Timed 52.9 mg/dL [facility] Creatinine, 24H Ur 0.7 0.5 - 1.6 g/24 hr [facility] Creatinine Clear, Urine 10.0 mL/min [facility] Creat Clear, Urine Norm 12.7(L) 77.0 - 94.0 mL/min [facility] Creat Clear, Urine Wkly 100.8 L/wk [facility] 11/07/2022 11/08/2022 3:4 6 AM CDT Narrative Resulting Agency Comment Specimen source: Urine Gabriel Mena MD LAB URINE ORDERABLES [facility] * PD ADEQUACY (11/07/2022) Kt/V, Residual 1.59 [facility] Creat Clear, Urine Nor Wkly 128 L/wk [facility] 11/07/2022 11/08/2022 3:4 6 AM CDT Narrative [facility] - 11/08/2022 Unless otherwise specified, test(s) performed at: [facility], [address] [place] [address], [place] [address] [address] POLICE OFFICER: Eze Park M.D., Ph.D For any questions, please call customer service at FREQUENCY:MONTHLY Resulting Agency Comment Specimen source: Urine Gabriel Mena MD LAB BODY FLUIDS AND STOOLS ORDERABLES Performing Organization Address [facility] Co de Phone Number [facility] * PD ADEQUACY (11/07/2022) Kt/V, Total 2.23 [facility] Comment: KDOQI Guidelines recommend weekly Kt/V of >=1.7 for adults. Kt/V, Peritoneal 0.64 [facility] Creat Clear, Tot Norm Wkly 140 L/wk [facility] Creat Clear, PDF Norm Wkly 12 L/wk [facility] PNA, Normalized 1.71 g/kg/day [facility] PNA 74 g/day [facility] 11/07/2022 11/08/2022 2:5 4 AM CDT Narrative [facility] - 11/08/2022 Unless otherwise specified, test(s) performed at: [facility], [address] [place] [address], [place] [address] K 9 POLICE OFFICER: Eze Park M.D., Ph.D For any questions, please call customer service at FREQUENCY:MONTHLY Resulting Agency Comment Specimen source: PD Fluid Gabriel Mena MD LAB BODY FLUIDS AND STOOLS ORDERABLES Performing Organization Address [facility] Co de Phone Number [facility] * (ABNORMAL) Spectrae Chemistry (11/07/2022) BUN 96(H) 6 - 19 mg/dL [facility] Creatinine 4.77(H) 0.60 - 1.30 mg/dL [facility] BUN/Creatinine Ratio 20.1(H) 10.0 - 20.0 [facility] 11/07/2022 11/08/2022 3:5 0 AM CDT Narrative [facility] - 11/08/2022 Unless otherwise specified, test(s) performed at: [facility], [address] [place] [address], [place] [address] K 9 POLICE OFFICER: Eze Park M.D., Ph.D For any questions, please call customer service at FREQUENCY:MONTHLY Resulting Agency Comment Specimen source: Serum Gabriel Mena MD LAB BLOOD ORDERABLES Performing Organization Address City/[facility]/ZIP Co de Phone Number [facility] * PDF CHEMISTRY (11/07/2022) Urea Nitrogen, PDF 24 Hr 2,242.1 mg/24 hr [facility] Urea Nitrogen, PDF Timed 72 mg/dL [facility] Comment: A reference range for this assay has not been established for body fluids. If blood results are available for this analyte, results may be interpreted in comparison to those results. Creatinine, PDF Timed Uncor 2.3 mg/dL [facility] Comment: A reference range for this assay has not been established for body fluids. If blood results are available for this analyte, results may be interpreted in comparison to those results. Creatinine, PDF Timed Cor 2.1 mg/dL [facility] Comment: Creatinine values have been corrected for glucose interference. [facility] glucose correction factor for creatinine is 0.0002. Creatinine, PDF 24 Hr 65.4 mg/24 hr [facility] Glucose, PDF Timed 1,186 mg/dL [facility] Comment: A reference range for this assay has not been established for body fluids. If blood results are available for this analyte, results may be interpreted in comparison to those results. Urea Clearance, PD Fluid 1.6 mL/min [facility] Urea Clearance, PDF Norm 2.1 mL/min [facility] Urea Clear, Tot Norm Wkly 56 L/wk [facility] Urea Clear, PDF Norm Wkly 16 L/wk [facility] Creatinine Clear, PDF 1.0 mL/min [facility] Creatinine Clear, PDF Norm 1.2 mL/min [facility] Creat Clear, PDF Norm Wkly 10 L/wk [facility] Creat Clear, Tot Wkly 111 L/wk [facility] 11/07/2022 11/08/2022 2:5 4 AM CDT Narrative Resulting Agency Comment Specimen source: PD Fluid Gabriel Mena MD LAB BODY FLUIDS AND STOOLS ORDERABLES [facility] * PATIENT INFORMATION (11/07/2022) Urea Volume Distribution (Wiseman) 25.1 L [facility] 11/07/2022 11/08/2022 2:5 4 AM CDT Narrative [facility] - 11/08/2022 Unless otherwise specified, test(s) performed at: [facility], [address] [place] [address], [place] [address] K 9 POLICE OFFICER: Eze Park M.D., Ph.D For any questions, please call customer service at FREQUENCY:MONTHLY Resulting Agency Comment Specimen source: PD Fluid Gabriel Mena MD LAB BLOOD ORDERABLES Performing Organization Address [facility] de Phone Number [facility] * PATIENT INFORMATION (11/07/2022) Patient BSA 1.36 sq. M. [facility] Comment: Normalized values are calculated using the patient's actual BSA and normalized to the average BSA of 1.73m2. 11/07/2022 11/08/2022 3:5 0 AM CDT Narrative [facility] - 11/08/2022 Unless otherwise specified, test(s) performed at: [facility], [address] [place] [address], [place] [address] K 9 POLICE OFFICER: Eze Park M.D., Ph.D For any questions, please call customer service at FREQUENCY:MONTHLY Resulting Agency Comment Specimen source: PD Fluid Gabriel Mena MD LAB BLOOD ORDERABLES Performing Organization Address City/[facility] Co de Phone Number [facility] * PATIENT INFORMATION (11/07/2022) Patient Weight 43.6 [facility] Patient Height 152.0 [facility] Amputee Status NO [facility] Amputee Parts NONE [facility] Drain volume, PDF 3,114 [facility] Collection Time, PDF 24.0 [facility] Urine Volume 1,300 [facility] Collection Interval, Ur 24.0 [facility] 11/07/2022 11/07/2022 Narrative [facility] - 11/08/2022 Unless otherwise specified, test(s) performed at: [facility], [address] [place] [address], [place] [address] K 9 POLICE OFFICER: Eze Park M.D., Ph.D For any questions, please call customer service at FREQUENCY:MONTHLY Resulting Agency Comment Specimen source: PD Fluid Gabriel Mena MD LAB BLOOD ORDERABLES [facility] documented in this encounter Visit Diagnoses Not on filedocumented in this encounter Care Teams Chore Tender Relationship Specialty Start Date End Date Tyrell Schneider MD [address] [place] [address] PCP - General 10/27/18 documented as of this encounter
--- OUTSIDE RECORDS SUMMARY | 2023-02-22 16:20 | XMS_ITS | Encounter Summary ---
Author Name Unknown Organization [facility] Address [address] [facility] [address] [place] [address] Care Team Providers Care Shafting Cleaner Name Role Phone Tyrell Schneider MD Primary Care Provider [phone] Encounter Details Date Type Department Care Team Description 10/03/2022 Orders Only [facility] [place] [address] [place] [address] Gabriel Mena MD [address] [place] [address] Social History Tobacco Use Types [...] Priority Date/Time Associated Diagnosis Comments HEMATOLOGY Routine 10/03/2022 CHEMISTRY Routine 10/03/2022 documented in this encounter Results * (ABNORMAL) Spectrae Chemistry (10/03/2022) BUN 71(H) 6 - 19 mg/dL [facility] Creatinine 4.96(H) 0.60 - 1.30 mg/dL [facility] BUN/Creatinine Ratio 14.3 10.0 - 20.0 [facility] Albumin 3.6 3.5 - 5.2 g/dL [facility] 10/03/2022 10/04/2022 9:4 6 AM CDT Narrative [facility] - 10/04/2022 Unless otherwise specified, test(s) performed at: [facility], [address] [place] [address], [place] [address] INSIDE SALES ENGINEER: Eze Park M.D., Ph.D For any questions, please call customer service at FREQUENCY:MONTHLY Resulting Agency Comment Specimen source: Serum Gabriel Mena MD LAB BLOOD ORDERABLES [facility] * (ABNORMAL) HEMATOLOGY (10/03/2022) Neutrophils 78.5(H) 40.0 - 75.0 % [facility] Lymphocytes Relative 9.2(L) 19.0 - 48.0 % [facility] Monocytes 4.8 3.0 - 10.0 % [facility] Eosinophils Relative 5.4 0.0 - 7.0 % [facility] Basophils Relative 0.8 0.0 - 1.5 % [facility] JUANITO 1.2 0.0 - 4.0 % [facility] WBC 8.59 4.80 - 10.80 1000/mcL [facility] RBC 3.39(L) 4.20 - 5.40 mill/mcL [facility] Hematocrit 31.4(L) 37.0 - 47.0 % [facility] MCV 93 80 - 100 fl [facility] MCH 31.2(H) 27.0 - 31.0 pg [facility] MCHC 33.8 30.0 - 36.0 g/dL [facility] RDW 16.1(H) 11.5 - 14.5 % [facility] Hemoglobin 10.6(L) 12.0 - 16.0 g/dL [facility] Hemoglobin x 3 31.8(L) 36.0 - 48.0 % [facility] 10/03/2022 10/04/2022 3:1 2 AM CDT Narrative [facility] - 10/04/2022 Unless otherwise specified, test(s) performed at: [facility], [address] [place] [address], [place] [address] INSIDE SALES ENGINEER: Eze Park M.D., Ph.D For any questions, please call customer service at FREQUENCY:MONTHLY Resulting Agency Comment Specimen source: Blood Gabriel Mena MD LAB BLOOD ORDERABLES [facility] documented in this encounter Visit Diagnoses Not on filedocumented in this encounter Care Teams Shafting Cleaner Relationship Specialty Start Date End Date Tyrell Schneider MD [address] [place] [address] PCP - General 10/27/18 documented as of this encounter
--- OUTSIDE RECORDS SUMMARY | 2023-02-22 16:20 | XMS_ITS | Encounter Summary ---
Author Name Unknown Organization [facility] [place] Address [address] [facility] [address] [place] [address] Care Team Providers Care Shiftman Name Role Phone Tyrell Schneider MD Primary Care Provider Encounter Details Date Type Department Care Team Description 11/28/2022 Orders Only [facility] [address] [place] [address] Gabriel Mena MD [address] [place] [address] Social History Tobacco Use Types [...] Priority Date/Time Associated Diagnosis Comments HEMATOLOGY Routine 11/28/2022 CHEMISTRY Routine 11/28/2022 CHEMISTRY Routine 11/28/2022 documented in this encounter Results * (ABNORMAL) HEMATOLOGY (11/28/2022) Neutrophils 85.1(H) 40.0 - 75.0 % [facility] Lymphocytes Relative 6.1(L) 19.0 - 48.0 % [facility] Monocytes 4.6 3.0 - 10.0 % [facility] Eosinophils Relative 3.2 0.0 - 7.0 % [facility] Basophils Relative 0.2 0.0 - 1.5 % [facility] JUANITO 0.8 0.0 - 4.0 % [facility] WBC 11.32(H) 4.80 - 10.80 1000/mcL [facility] RBC 3.66(L) 4.20 - 5.40 mill/mcL [facility] Hematocrit 33.5(L) 37.0 - 47.0 % [facility] MCV 91 80 - 100 fl [facility] MCH 30.3 27.0 - 31.0 pg [facility] MCHC 33.1 30.0 - 36.0 g/dL [facility] RDW 16.5(H) 11.5 - 14.5 % [facility] Hemoglobin 11.1(L) 12.0 - 16.0 g/dL [facility] Hemoglobin x 3 33.3(L) 36.0 - 48.0 % [facility] 11/28/2022 11/30/2022 12: 30 PM CDT Narrative [facility] - 11/30/2022 Unless otherwise specified, test(s) performed at: [facility], [address] [place] [address], [place] [address] SIGNAL APPRENTICE: Eze Park M.D., Ph.D For any questions, please call customer service at FREQUENCY:MONTHLY Resulting Agency Comment Specimen source: Blood Gabriel Mena MD LAB BLOOD ORDERABLES [facility] * (ABNORMAL) [facility] Chemistry (11/28/2022) PTH 276(H) 16 - 80 pg/mL [facility] 11/28/2022 11/30/2022 11: 34 AM CDT Narrative [facility] - 11/30/2022 Unless otherwise specified, test(s) performed at: [facility], [address] [place] [address], [place] [address] SIGNAL APPRENTICE: Eze Park M.D., Ph.D For any questions, please call customer service at FREQUENCY:MONTHLY Resulting Agency Comment Specimen source: Plasma Gabriel Mena MD LAB BLOOD ORDERABLES [facility] * (ABNORMAL) [facility] Chemistry (11/28/2022) BUN 72(H) 6 - 19 mg/dL [facility] Creatinine 4.59(H) 0.60 - 1.30 mg/dL [facility] BUN/Creatinine Ratio 15.7 10.0 - 20.0 [facility] Sodium 126(L) 136 - 145 mEq/L [facility] Potassium 5.6(H) 3.5 - 5.1 mEq/L [facility] Chloride 92(L) 96 - 108 mEq/L [facility] Bicarbonate (CO2) 24 20 - 31 mEq/L [facility] Calcium 8.6(L) 8.7 - 10.4 mg/dL [facility] Comment: Please note change in reference range. Corrected Calcium 9.2 8.7 - 10.4 mg/dL [facility] Comment: Corrected Calcium is not equivalent to measured Ionized Calcium. Phosphorus 5.3(H) 2.6 - 4.5 mg/dL [facility] Calcium Phosphorus Product 46 0 - 54 [facility] Calcium Phosporus Product, Cor 49 0 - 54 [facility] Alkaline Phosphatase 93 35 - 104 U/L [facility] Albumin 3.3(L) 3.5 - 5.2 g/dL [facility] Magnesium 2.0 1.6 - 2.6 mg/dL [facility] Iron 91 30 - 160 mcg/dL [facility] UIBC 110(L) 155 - 355 mcg/dL [facility] TIBC 201 185 - 515 mcg/dL [facility] Iron Saturation (TSat) 45 20 - 55 % [facility] Ferritin 3,454(H) 10 - 291 ng/mL [facility] Comment: Verified by repeat analysis. 11/28/2022 11/30/2022 10: 13 AM CDT Narrative [facility] - 11/30/2022 Unless otherwise specified, test(s) performed at: [facility], [address] [place] [address], [place] [address] SIGNAL APPRENTICE: Eze Park M.D., Ph.D For any questions, please call customer service at FREQUENCY:MONTHLY Resulting Agency Comment Specimen source: Serum Gabriel Mena MD LAB BLOOD ORDERABLES [facility] documented in this encounter Visit Diagnoses Not on filedocumented in this encounter Care Teams Shiftman Relationship Specialty Start Date End Date Tyrell Schneider MD [address] [place] [address] PCP - General 10/27/18 documented as of this encounter
--- OUTSIDE RECORDS SUMMARY | 2023-02-22 16:20 | XMS_ITS | Encounter Summary ---
Author Name Unknown Organization [facility] Address [address] [facility] [address] [place] [address] Care Team Providers Care Hand Gluer And Slicer Name Role Phone Tyrell Schneider MD Primary Care Provider [phone] Encounter Details Date Type Department Care Team Description 01/16/2023 Orders Only [facility] [address] [place] [address] Gabriel Mena MD [address] [place] [address] Social History Tobacco Use Types [...] Priority Date/Time Associated Diagnosis Comments HEMATOLOGY Routine 01/16/2023 CHEMISTRY Routine 01/16/2023 documented in this encounter Results * (ABNORMAL) HEMATOLOGY (01/16/2023) Neutrophils 86.1(H) 40.0 - 75.0 % [facility] Lymphocytes Relative 5.4(L) 19.0 - 48.0 % [facility] Monocytes 3.1 3.0 - 10.0 % [facility] Eosinophils Relative 4.2 0.0 - 7.0 % [facility] Basophils Relative 0.4 0.0 - 1.5 % [facility] JUANITO 0.8 0.0 - 4.0 % [facility] WBC 12.51(H) 4.80 - 10.80 1000/mcL [facility] RBC 3.33(L) 4.20 - 5.40 mill/mcL [facility] Hematocrit 31.5(L) 37.0 - 47.0 % [facility] MCV 95 80 - 100 fl [facility] MCH 29.3 27.0 - 31.0 pg [facility] MCHC 31.0 30.0 - 36.0 g/dL [facility] RDW 19.8(H) 11.5 - 14.5 % [facility] Hemoglobin 9.8(L) 12.0 - 16.0 g/dL [facility] Hemoglobin x 3 29.4(L) 36.0 - 48.0 % [facility] 01/16/2023 01/17/2023 2:1 9 PM LAMP SHADE MAKER Narrative [facility] - 01/17/2023 Unless otherwise specified, test(s) performed at: [facility], [address] [place] [address], [place] [address] WORKFORCE MANAGEMENT COORDINATOR: Eze Park M.D., Ph.D For any questions, please call customer service at FREQUENCY:MONTHLY Resulting Agency Comment Specimen source: Blood Gabriel Mena MD LAB BLOOD ORDERABLES [facility] * (ABNORMAL) [facility] Chemistry (01/16/2023) BUN 29(H) 6 - 19 mg/dL [facility] Creatinine 3.76(H) 0.60 - 1.30 mg/dL [facility] BUN/Creatinine Ratio 7.7(L) 10.0 - 20.0 [facility] Sodium 135(L) 136 - 145 mEq/L [facility] Potassium 4.9 3.5 - 5.1 mEq/L [facility] Chloride 100 96 - 108 mEq/L [facility] Bicarbonate (CO2) 28 20 - 31 mEq/L [facility] Calcium 8.9 8.7 - 10.4 mg/dL [facility] Comment: Please note change in reference range. Corrected Calcium 9.4 8.7 - 10.4 mg/dL [facility] Comment: Corrected Calcium is not equivalent to measured Ionized Calcium. Phosphorus 3.1 2.6 - 4.5 mg/dL [facility] Calcium Phosphorus Product 28 0 - 54 [facility] Calcium Phosporus Product, Cor 29 0 - 54 [facility] Albumin 3.4(L) 3.5 - 5.2 g/dL [facility] Iron 42 30 - 160 mcg/dL [facility] UIBC 177 155 - 355 mcg/dL [facility] TIBC 219 185 - 515 mcg/dL [facility] Iron Saturation (TSat) 19(L) 20 - 55 % [facility] 01/16/2023 01/17/2023 1:0 5 PM LAMP SHADE MAKER Narrative [facility] - 01/17/2023 Unless otherwise specified, test(s) performed at: [facility], [address] [place] [address], [place] [address] WORKFORCE MANAGEMENT COORDINATOR: Eze Park M.D., Ph.D For any questions, please call customer service at FREQUENCY:MONTHLY Resulting Agency Comment Specimen source: Serum Gabriel Mena MD LAB BLOOD ORDERABLES [facility] documented in this encounter Visit Diagnoses Not on filedocumented in this encounter Care Teams Hand Gluer And Slicer Relationship Specialty Start Date End Date Tyrell Schneider MD [address] [place] [address] PCP - General 10/27/18 documented as of this encounter
--- OUTSIDE RECORDS SUMMARY | 2023-02-22 16:21 | XMS_ITS | Encounter Summary ---
Author Name Unknown Organization [facility] Address [address] [place] [address] Care Team Providers Care Mechanical Systems Engineer Name Role Phone Tyrell Schneider MD Primary Care Provider [phone] Encounter Details Date Type Department Care Team Description 06/27/2022 Treatment [facility] [address] [place] [address] Gabriel Mena MD [address] [place] [address] Social History Tobacco Use Types Packs/Day Years Used Date Smoking Tobacco: Never Assessed Sex and Gender Information Value Date Recorded Sex Assigned at Not on file Gender Identity Not on file Sexual Orientation Not on file documented as of this encounter Miscellaneous Notes * Dialysis Note - Gabriel Mena MD - 06/27/2022 2:19 PM CDT Date: June 27, 2022 Patient Name: Maricruz Vanegas : 1945 Chart #: [id number] Sex: F This patient was personally seen for a complete visit as part of routine monthly dialysis care. A review of the dialysis treatment, blood pressure, estimated dry weight, and recent lab values was made. These were discussed with the patient and staff as necessary. TAX DIRECTOR: Gabriel Mena MD LOCATION: [phone] SCHEDULE: No Routine Schedule Subjective Tolerating dialysis well. 06/27/22: She is doing great. She has [...] protein supplement (Novasource). She ran out of [employer], we are working on getting this refilled [...] yet and is waiting to hear from [facility]. She feelsher breathing is better after we [...] 07/19/21: She is re-scheduling her procedure at [facility] to August. Her back and legs feel [...] injection therapy to help stop smoking with [facility] this month. She has back surgery scheduled [...] and she has appt with surgeon at [facility] next week with x- rays scheduled. 03/15/21: [...] 11/23/20: [facility] Still same pain. No new symptoms. BP 140/60 at home or close to this. Wt stable. No uremia symptoms. 10/12/20: She is having progressively worsening pain in her low back, saw ortho, surgery is planned (sounds like a fusion procedure) at [facility] but it is not yet scheduled. Her [...] via TeleHealth with video technology today during COVID-19 pandemic. Maricruz is doing very well. 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 Regular rhythm. Gastrointestinal - mild distention unchanged Edema - No leg edema. = PD catheter exit site - exit site clean, dry, intact per PD RN AVF with good t/b Current Prescription (changed [...] 2 tablets with nutritional supplements/snacks as needed calcitriol 0.25 mcg capsule Take 1 capsule by mouth twice a week. Take on MWF clonidine HCl 0.1 mg tablet Take 3 [...] take daily as needed for constipation 04/21/2018 mupirocin 2% ointment Apply 1 a small [...] spKt/V (Daugirdas II) 1.3500 (06/13/18) BUN mg/dL 47 (06/13/22) 55 (05/16/22) 58 (04/11/22) CREATININE (MG/DL) IN SER/PLAS mg/dL 4.88 (06/13/22) 5.56 (05/16/22) 5.31 (04/11/22) KT/V, PERITONEAL L/wk 0.60 (04/11/22) 0.66 (01/29/22) 0.80 (09/20/21) KT/V, RESIDUAL L/wk 1.24 (04/11/22) 2.14 (01/29/22) 1.33 (09/20/21) Kt/V is adequate. Continue current prescription. Residual function down ut continues to be good and fluctuates. No change in prescription necessary at this time. BUN remains <75 Peritoneal Dialysis Access Assessment Placed on: 06/2018 [place] [facility] [place] and patient report access is working well. none 01/2019: had severe stenosis of AVF and had angioplasty PD access working well as of Feb 2019 Anemia Assessment HEMOGLOBIN (G/DL) IN BLOOD g/dL 10.9 (06/13/22) 10.9 (05/16/22) 10.6 (04/11/22) PLATELETS 1000/mcL 226 (12/16/19) 306 (06/11/18) 336 (05/16/18) WBC (BLOOD) 1000/mcL 9.94 (06/13/22) 10.08 (05/16/22) 10.96 (04/11/22) IRON SATURATION % 30 (07/19/21) 30 (06/14/21) 35 (05/24/21) FERRITIN ng/mL 1626 (05/16/22) 1034 (02/14/22) 1228 (12/12/21) Hemoglobin is at goal. Ferritin is at goal. Will adjust ELA and intravenous iron. Nutritional and Metabolic Assessment ALBUMIN (G/DL) g/dL 3.3 (06/13/22) 3.5 (05/16/22) 3.5 (04/11/22) BICARBONATE (CO2) mEq/L 32 (06/13/22) 29 (05/16/22) 27 (04/11/22) POTASSIUM (MMOL/L) IN SER/PLAS mEq/L 4.3 (06/13/22) 4.2 (05/16/22) 5.0 (04/11/22) Sodium mEq/L 140 (06/13/22) 138 (05/16/22) 137 (04/11/22) 25 [place] VITAMIN D ng/mL 32.6 (02/14/22) 34.3 (02/15/21) 38.6 (08/17/20) Albumin is below goal. Encourage high biological value protein intake. Oral nutritional supplement program. Potassium is at goal. Continue protein supplement, trying to achieve goal of >3.5 currently. Going to try protein powder Bone and Mineral Metabolism Assessment CALCIUM mg/dL 8.6 (06/13/22) 9.6 (05/16/22) 9.5 (04/11/22) CALCIUM (MG/DL) CORRECTED FOR ALBUMIN IN SER/PLAS mg/dL 9.2 (06/13/22) 10.0 (05/16/22) 9.9 (04/11/22) CALCIUM PHOSPHORUS PRODUCT, COR 39 (06/13/22) 65 (05/16/22) 59 (04/11/22) PHOSPHATE (MG/DL) IN SER/PLAS mg/dL 4.2 (06/13/22) 6.5 (05/16/22) 5.3 (05/04/22) IPTH pg/mL 240 (06/13/22) 69 (05/16/22) 330 (03/30/22) Corrected calcium is at goal. Phosphorus is at goal. Intact PTH [...] Overall, PD going well on low prescription Repeat adequacy next month BP at goal Labs overall excellent Gabriel Mena MD [ Signed And locked electronically On 06/27/2022 at 02:21:14 PM ] Transcribed: Gabriel Mena ( 06/27/2022 ) documented in this encounter Plan of Treatment Not on file documented as of this encounter Visit Diagnoses Not on filedocumented in this encounter Care Teams Mechanical Systems Engineer Relationship Specialty Start Date End Date Tyrell Schneider MD [address] [place] [address] PCP - General 10/27/18 documented as of this encounter
--- OUTSIDE RECORDS SUMMARY | 2023-02-22 16:21 | XMS_ITS | Encounter Summary ---
Author Name Unknown Organization [facility] [place] Address [address] [place] [address] Care Team Providers Care Car Dumper Operator Helper Name Role Phone Tyrell Schneider MD Primary Care Provider [phone] Encounter Details Date Type Department Care Team Description 05/16/2022 Treatment [facility] [place] [address] [place] [address] Gabriel Mena MD [address] [place] [address] Social History Tobacco Use Types Packs/Day Years Used Date Smoking Tobacco: Never Assessed Sex and Gender Information Value Date Recorded Sex Assigned at Not on file Gender Identity Not on file Sexual Orientation Not on file documented as of this encounter Miscellaneous Notes * Dialysis Note - Gabriel Mena MD - 05/16/2022 2:13 PM CDT Date: May 16, 2022 Patient Name: Maricruz Vanegas : 1945 Chart #: [id number] Sex: F This patient was personally seen for a complete visit as part of routine monthly dialysis care. A review of the dialysis treatment, blood pressure, estimated dry weight, and recent lab values was made. These were discussed with the patient and staff as necessary. PHYSICAL DAMAGE APPRAISER: Gabriel Mena MD LOCATION: [phone] SCHEDULE: No Routine Schedule Subjective Tolerating dialysis well. 05/16/22: She is doing well. She has [...] protein supplement (Novasource). She ran out of [employer], we are working on getting this refilled [...] yet and is waiting to hear from [facility]. She feelsher breathing is better after we [...] 07/19/21: She is re-scheduling her procedure at [facility] to August. Her back and legs feel [...] injection therapy to help stop smoking with [facility] this month. She has back surgery scheduled [...] and she has appt with surgeon at [facility] next week with x- rays scheduled. 03/15/21: [...] 11/23/20: Her back surgery was postponed with [facility]. Still same pain. No new symptoms. BP 140/60 at home or close to this. Wt stable. No uremia symptoms. 10/12/20: She is having progressively worsening pain in her low back, saw ortho, surgery is planned (sounds like a fusion procedure) at [facility] but it is not yet scheduled. 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 Regular rhythm. Gastrointestinal - mild distention unchanged Edema - No leg edema. stable PD catheter exit site - exit site [...] mouth three times a day with meals calcitriol 0.25 mcg capsule Take 1 capsule by mouth three times a week. M-W-F clonidine HCl 0.1 mg tablet Take 3 [...] spKt/V (Daugirdas II) 1.3500 (06/13/18) BUN mg/dL 58 (04/11/22) 52 (03/30/22) 43 (02/14/22) CREATININE (MG/DL) IN SER/PLAS mg/dL 5.31 (04/11/22) 4.03 (03/30/22) 3.88 (02/14/22) KT/V, PERITONEAL L/wk 0.60 (04/11/22) 0.66 (01/29/22) 0.80 (09/20/21) KT/V, RESIDUAL L/wk 1.24 (04/11/22) 2.14 (01/29/22) 1.33 (09/20/21) Kt/V is adequate. Continue current prescription. Residual function down ut continues to be good and fluctuates. No change in prescription necessary at this time. BUN remains <75 Peritoneal Dialysis Access Assessment Placed on: 06/2018 Surgeon - [facility] [place] Staff and patient report access is working well. none 01/2019: had severe stenosis of AVF and had angioplasty PD access working well as of Feb 2019 Anemia Assessment HEMOGLOBIN (G/DL) IN BLOOD g/dL 10.6 (04/11/22) 10.3 (03/30/22) 9.9 (02/14/22) PLATELETS 1000/mcL 226 (12/16/19) 306 (06/11/18) 336 (05/16/18) WBC (BLOOD) 1000/mcL 10.96 (04/11/22) 8.66 (03/30/22) 8.67 (02/14/22) IRON SATURATION % 30 (07/19/21) 30 (06/14/21) 35 (05/24/21) FERRITIN ng/mL 1034 (02/14/22) 1228 (12/12/21) 1423 (08/23/21) Hemoglobin is at goal. Ferritin is at goal. Will adjust ELA and intravenous iron. Nutritional and Metabolic Assessment ALBUMIN (G/DL) g/dL 3.5 (04/11/22) 3.3 (03/30/22) 3.3 (02/14/22) BICARBONATE (CO2) mEq/L 27 (04/11/22) 26 (03/30/22) 32 (02/14/22) POTASSIUM (MMOL/L) IN SER/PLAS mEq/L 5.0 (04/11/22) 4.7 (03/30/22) 4.1 (02/14/22) Sodium mEq/L 137 (04/11/22) 139 (03/30/22) 139 (02/14/22) 25 [place] VITAMIN D ng/mL 32.6 (02/14/22) 34.3 (02/15/21) 38.6 (08/17/20) Albumin is below goal. Encourage high biological value protein intake. Oral nutritional supplement program. Potassium is at goal. Continue protein supplement, trying to achieve goal of >3.5 currently and hoping we can maintainthis Bone and Mineral Metabolism Assessment CALCIUM mg/dL 9.5 (04/11/22) 8.7 (03/30/22) 8.5 (02/14/22) CALCIUM (MG/DL) CORRECTED FOR ALBUMIN IN SER/PLAS mg/dL 9.9 (04/11/22) 9.3 (03/30/22) 9.1 (02/14/22) CALCIUM PHOSPHORUS PRODUCT, COR 59 (04/11/22) 65 (03/30/22) 41 (02/14/22) PHOSPHATE (MG/DL) IN SER/PLAS mg/dL 5.3 (05/04/22) 6.0 (04/11/22) 7.0 (03/30/22) IPTH pg/mL 330 (03/30/22) 368 (02/14/22) 195 (12/27/21) Corrected calcium is at goal. Phosphorus is at goal. Intact PTH is at goal. Care team will adjust binders and oral vitamin D per protocol and continue to provide dietary education. Cardiovascular Assessment Blood pressure reviewed and is acceptable. Continue same cardiovascular medications. Estimated dry weight is too low, will increase. Lower EDW to 100 lbs Transplant Status Patient is not a candidate. Age and co-morbidities Resuscitation Status Additional Comments: Overall, PD going well on low prescription Repeat adequacy still ok Volume status excellent Increase EDW as above Labs today Gabriel Leither, MD [ Signed And locked electronically On 05/16/2022 at 02:15:47 PM ] Transcribed: Gabriel Mena ( 05/16/2022 ) documented in this encounter Plan of Treatment Not on file documented as of this encounter Visit Diagnoses Not on filedocumented in this encounter Care Teams Car Dumper Operator Helper Relationship Specialty Start Date End Date Tyrell Schneider MD [address] [place] [address] PCP - General 10/27/18 documented as of this encounter
--- OUTSIDE RECORDS SUMMARY | 2023-02-22 16:21 | XMS_ITS | Encounter Summary ---
Author Name Unknown Organization [facility] [place] [place] Address [address] [place] [address] Care Team Providers Care Hay Buckler Name Role Phone Tyrell Schneider MD Primary Care Provider [phone] Encounter Details Date Type Department Care Team Description 03/30/2022 Treatment [facility] [address] [place] [address] Gabriel Mena MD [address] [place] [address] Social History Tobacco Use Types Packs/Day Years Used Date Smoking Tobacco: Never Assessed Sex and Gender Information Value Date Recorded Sex Assigned at Not on file Gender Identity Not on file Sexual Orientation Not on file documented as of this encounter Miscellaneous Notes * Dialysis Note - Gabriel Mena MD - 03/30/2022 11:32 AM CST Date: Mar 30, 2022 Patient Name: Maricruz Vanegas : 1945 Chart #: [id number] Sex: F This patient was personally seen for a complete visit as part of routine monthly dialysis care. A review of the dialysis treatment, blood pressure, estimated dry weight, and recent lab values was made. These were discussed with the patient and staff as necessary. COMPLETIONS ENGINEER: Gabriel Mena MD LOCATION: [phone] SCHEDULE: No Routine Schedule Subjective Tolerating dialysis well. 03/30: She is doing well. Got nicotine [...] protein supplement (Novasource). She ran out of Revolv, we are working on getting this refilled [...] yet and is waiting to hear from [facility]. She feelsher breathing is better after we [...] 07/19/21: She is re-scheduling her procedure at [facility] to August. Her back and legs feel [...] injection therapy to help stop smoking with [facility] this month. She has back surgery scheduled [...] and she has appt with surgeon at [facility] next week with x- rays scheduled. 03/15/21: [...] 11/23/20: Her back surgery was postponed with [facility]. Still same pain. No new symptoms. BP 140/60 at home or close to this. Wt stable. No uremia symptoms. 10/12/20: She is having progressively worsening pain in her low back, saw ortho, surgery is planned (sounds like a fusion procedure) at [place] but it is not yet scheduled. 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 except above Exam Respiratory - Clear to auscultation bilaterally. but with few tiny scattered wheezes Cardiovascular - Regular rate. Regular rhythm. Gastrointestinal - mild distention unchanged Edema - Trace edema. PD catheter exit site - exit [...] spKt/V (Daugirdas II) 1.3500 (06/13/18) BUN mg/dL 43 (02/14/22) 55 (01/29/22) 67 (12/12/21) CREATININE (MG/DL) IN SER/PLAS mg/dL 3.88 (02/14/22) 4.40 (01/29/22) 4.44 (12/12/21) KT/V, PERITONEAL L/wk 0.66 (01/29/22) 0.80 (09/20/21) 0.84 (06/05/21) KT/V, RESIDUAL L/wk 2.14 (01/29/22) 1.33 (09/20/21) 2.21 (06/05/21) Kt/V is adequate. Continue current prescription. Residual function has always been high, felt better with PD initiation despite residual function and kept on low dose prescription. Residual function fell to 1.33 09/2021, higher again 01/2022, will monitor but overall kt/v still adequate with current low prescription CCPD. Peritoneal Dialysis Access Assessment Placed on: 06/2018 Surgeon - [facility] Staff and patient report access is working well. none 01/2019: had severe stenosis of AVF and had angioplasty PD access working well as of Feb 2019 Anemia Assessment HEMOGLOBIN (G/DL) IN BLOOD g/dL 9.9 (02/14/22) 9.7 (01/29/22) 10.3 (01/17/22) PLATELETS 1000/mcL 226 (12/16/19) 306 (06/11/18) 336 (05/16/18) WBC (BLOOD) 1000/mcL 8.67 (02/14/22) 8.38 (01/29/22) 8.00 (01/17/22) IRON SATURATION % 30 (07/19/21) 30 (06/14/21) 35 (05/24/21) FERRITIN ng/mL 1034 (02/14/22) 1228 (12/12/21) 1423 (08/23/21) Hemoglobin is below goal. Ferritin is at goal. Will adjust ELA and intravenous iron. Nutritional and Metabolic Assessment ALBUMIN (G/DL) g/dL 3.3 (02/14/22) 3.4 (01/29/22) 3.5 (12/12/21) BICARBONATE (CO2) mEq/L 32 (02/14/22) 27 (01/29/22) 27 (12/12/21) POTASSIUM (MMOL/L) IN SER/PLAS mEq/L 4.1 (02/14/22) 4.7 (01/29/22) 3.7 (12/12/21) Sodium mEq/L 139 (02/14/22) 137 (01/29/22) 132 (12/12/21) 25 OH VITAMIN D ng/mL 32.6 (02/14/22) 34.3 (02/15/21) 38.6 (08/17/20) Albumin is below goal. Encourage high biological value protein intake. Oral nutritional supplement program. Potassium is at goal. Continue protein supplement, trying to achieve goal of >3.5 currently and hoping we can maintainthis Bone and Mineral Metabolism Assessment CALCIUM mg/dL 8.5 (02/14/22) 8.5 (01/29/22) 8.6 (12/12/21) CALCIUM (MG/DL) CORRECTED FOR ALBUMIN IN SER/PLAS mg/dL 9.1 (02/14/22) 9.0 (01/29/22) 9.0 (12/12/21) CALCIUM PHOSPHORUS PRODUCT, COR 41 (02/14/22) 45 (01/29/22) 54 (12/12/21) PHOSPHATE (MG/DL) IN SER/PLAS mg/dL 4.5 (02/14/22) 5.0 (01/29/22) 5.1 (12/27/21) IPTH pg/mL 368 (02/14/22) 195 (12/27/21) 186 (08/23/21) Corrected calcium is at goal. Phosphorus is at goal. Intact PTH is at goal. Care team will adjust binders and oral vitamin D per protocol and continue to provide dietary education. Cardiovascular Assessment Blood pressure reviewed and is acceptable. Continue same cardiovascular medications. Estimated dry weight is too high, will decrease. Lower EDW by 0.5 Kg to 45 Kg Transplant Status Patient is not a candidate. Age and co-morbidities Resuscitation Status Additional Comments: Overall, PD going well on low prescription Got Mircera late last month and iron, re-check Hgb today Working still on high protein diet Lower EDW by 0.5 kg today Repeat adequacy next month Gabriel Mena MD [ Signed And locked electronically On 03/30/2022 at 11:34:27 AM ] Transcribed: Gabriel Mena ( 03/30/2022 ) documented in this encounter Plan of Treatment Not on file documented as of this encounter Visit Diagnoses Not on filedocumented in this encounter Care Teams Hay Buckler Relationship Specialty Start Date End Date Tyrell Schneider MD [address] [facility] [place] [address] PCP - General 10/27/18 documented as of this encounter
--- OUTSIDE RECORDS SUMMARY | 2023-02-22 16:21 | XMS_ITS | Encounter Summary ---
Author Name Unknown Organization [facility] [place] [place] Address [address] [facility] [address] [place] [address] Care Team Providers Care Sybase Developer Name Role Phone Tyrell Schneider MD Primary Care Provider Encounter Details Date Type Department Care Team Description 03/30/2022 Orders Only [facility] [address] [place] [address] Gabriel Mena MD [address] [place] [address] Social History Tobacco Use Types [...] Priority Date/Time Associated Diagnosis Comments HEMATOLOGY Routine 03/30/2022 CHEMISTRY Routine 03/30/2022 CHEMISTRY Routine 03/30/2022 documented in this encounter Results * (ABNORMAL) HEMATOLOGY (03/30/2022) Neutrophils 71.0 40.0 - 75.0 % [facility] Lymphocytes Relative 8.5(L) 19.0 - 48.0 % [facility] Monocytes 3.9 3.0 - 10.0 % [facility] Eosinophils Relative 13.6(H) 0.0 - 7.0 % [facility] Basophils Relative 0.8 0.0 - 1.5 % [facility] JUANITO 2.2 0.0 - 4.0 % [facility] WBC 8.66 4.80 - 10.80 1000/mcL [facility] RBC 3.61(L) 4.20 - 5.40 mill/mcL [facility] Hematocrit 33.0(L) 37.0 - 47.0 % [facility] MCV 91 80 - 100 fl [facility] MCH 28.6 27.0 - 31.0 pg [facility] MCHC 31.2 30.0 - 36.0 g/dL [facility] RDW 17.2(H) 11.5 - 14.5 % [facility] Hemoglobin 10.3(L) 12.0 - 16.0 g/dL [facility] Hemoglobin x 3 30.9(L) 36.0 - 48.0 % [facility] 03/30/2022 04/02/2022 12: 17 PM FIRE CHIEF'S AIDE Narrative [facility] - 04/02/2022 Unless otherwise specified, test(s) performed at: [facility], [address] [place] [address], [place] [address] RECYCLING ATTENDANT: Eze Park M.D., Ph.D For any questions, please call customer service at FREQUENCY:MONTHLY Resulting Agency Comment Specimen source: Blood Gabriel Mena MD LAB BLOOD ORDERABLES [facility] * (ABNORMAL) Spectrae Chemistry (03/30/2022) BUN 52(H) 6 - 19 mg/dL [facility] Creatinine 4.03(H) 0.60 - 1.30 mg/dL [facility] BUN/Creatinine Ratio 12.9 10.0 - 20.0 [facility] Sodium 139 136 - 145 mEq/L [facility] Potassium 4.7 3.5 - 5.1 mEq/L [facility] Chloride 103 96 - 108 mEq/L [facility] Bicarbonate (CO2) 26 20 - 31 mEq/L [facility] Comment: Please note change in reference range. Calcium 8.7 8.7 - 10.4 mg/dL [facility] Comment: Please note change in reference range. Corrected Calcium 9.3 8.7 - 10.4 mg/dL [facility] Comment: Corrected Calcium is not equivalent to measured Ionized Calcium. Phosphorus 7.0(H) 2.6 - 4.5 mg/dL [facility] Calcium Phosphorus Product 61(H) 0 - 54 [facility] Calcium Phosporus Product, Cor 65(H) 0 - 54 [facility] Albumin 3.3(L) 3.5 - 5.2 g/dL [facility] Iron 59 30 - 160 mcg/dL [facility] UIBC 181 155 - 355 mcg/dL [facility] TIBC 240 185 - 515 mcg/dL [facility] Iron Saturation (TSat) 25 20 - 55 % [facility] 03/30/2022 04/02/2022 10: 37 AM FIRE CHIEF'S AIDE Narrative [facility] - 04/02/2022 Unless otherwise specified, test(s) performed at: [facility], [address] [place] [address], [place] [address] RECYCLING ATTENDANT: Eze Park M.D., Ph.D For any questions, please call customer service at FREQUENCY:MONTHLY Resulting Agency Comment Specimen source: Serum Gabriel Mena MD LAB BLOOD ORDERABLES [facility] * (ABNORMAL) Spectrae Chemistry (03/30/2022) PTH 330(H) 16 - 80 pg/mL [facility] 03/30/2022 04/02/2022 10: 37 AM FIRE CHIEF'S AIDE Narrative [facility] - 04/02/2022 Unless otherwise specified, test(s) performed at: [facility], [address] [place] [address], [place] [address] RECYCLING ATTENDANT: Eze Park M.D., Ph.D For any questions, please call customer service at FREQUENCY:MONTHLY Resulting Agency Comment Specimen source: Plasma Gabriel Mena MD LAB BLOOD ORDERABLES [facility] documented in this encounter Visit Diagnoses Not on filedocumented in this encounter Care Teams Sybase Developer Relationship Specialty Start Date End Date Tyrell Schneider MD [address] [place] [address] PCP - General 10/27/18 documented as of this encounter
--- OUTSIDE RECORDS SUMMARY | 2023-02-22 16:21 | XMS_ITS | Encounter Summary ---
Author Name Unknown Organization [facility] [place] Address [address] [facility] [address] [place] [address] Care Team Providers Care Pocketed Spring Machine Operator Name Role Phone Tyrell Schneider MD Primary Care Provider [phone] Encounter Details Date Type Department Care Team Description 05/04/2022 Orders Only [facility] [place] [address] [place] [address] Gabriel Mena MD [address] [place] [address] Social History Tobacco Use Types [...] Priority Date/Time Associated Diagnosis Comments CHEMISTRY Routine 05/04/2022 documented in this encounter Results * (ABNORMAL) Spectrae Chemistry (05/04/2022) Phosphorus 5.3(H) 2.6 - 4.5 mg/dL [facility] 05/04/2022 05/05/2022 4:4 3 AM CDT Narrative [facility] - 05/05/2022 Unless otherwise specified, test(s) performed at: [facility], [address] [place] [address], [place] [address] PBX INSTALLER: Eze Park M.D., Ph.D For any questions, please call Expaer service at FREQUENCY:OTHER Resulting Agency Comment Specimen source: Serum Gabriel Mena MD LAB BLOOD ORDERABLES [facility] documented in this encounter Visit Diagnoses Not on filedocumented in this encounter Care Teams Pocketed Spring Machine Operator Relationship Specialty Start Date End Date Tyrell Schneider MD [address] [place] [address] PCP - General 10/27/18 documented as of this encounter
--- OUTSIDE RECORDS SUMMARY | 2023-02-22 16:21 | XMS_ITS | Encounter Summary ---
Author Name Unknown Organization [facility] [place] Address [address] [facility] [address] [place] [address] Care Team Providers Care Workers Compensation Defense Attorney Name Role Phone Tyrell Schneider MD Primary Care Provider [phone] Encounter Details Date Type Department Care Team Description 04/11/2022 Orders Only [facility] [place] [address] [place] [address] Gabriel Mena MD [address] [place] [address] Social History Tobacco Use Types [...] Date/Time Associated Diagnosis Comments URINE CLEARANCE Routine 04/11/2022 PDF CHEMISTRY Routine 04/11/2022 PD ADEQUACY Routine 04/11/2022 PD ADEQUACY Routine 04/11/2022 PATIENT INFORMATION Routine 04/11/2022 PATIENT INFORMATION Routine 04/11/2022 PATIENT INFORMATION Routine 04/11/2022 HEMATOLOGY Routine 04/11/2022 CHEMISTRY Routine 04/11/2022 documented in this encounter Results * (ABNORMAL) HEMATOLOGY (04/11/2022) Neutrophils 69.4 40.0 - 75.0 % [facility] Lymphocytes Relative 9.9(L) 19.0 - 48.0 % [facility] Monocytes 4.3 3.0 - 10.0 % [facility] Eosinophils Relative 13.7(H) 0.0 - 7.0 % [facility] Basophils Relative 0.4 0.0 - 1.5 % [facility] JUANITO 2.2 0.0 - 4.0 % [facility] WBC 10.96(H) 4.80 - 10.80 1000/mcL [facility] RBC 3.67(L) 4.20 - 5.40 mill/mcL [facility] Hematocrit 33.4(L) 37.0 - 47.0 % [facility] MCV 91 80 - 100 fl [facility] MCH 29.0 27.0 - 31.0 pg [facility] MCHC 31.9 30.0 - 36.0 g/dL [facility] RDW 18.3(H) 11.5 - 14.5 % [facility] Hemoglobin 10.6(L) 12.0 - 16.0 g/dL [facility] Hemoglobin x 3 31.8(L) 36.0 - 48.0 % [facility] 04/11/2022 04/13/2022 7:1 9 AM REMOTE COMPUTER TERMINAL OPERATOR Narrative [facility] - 04/13/2022 Unless otherwise specified, test(s) performed at: [facility], [address] [place] [address], [place] [address] SENIOR COMMUNICATIONS ENGINEER: Eze Park M.D., Ph.D For any questions, please call customer service at FREQUENCY:MONTHLY Resulting Agency Comment Specimen source: Blood Gabriel Mena MD LAB BLOOD ORDERABLES [facility] * PD ADEQUACY (04/11/2022) Kt/V, Residual 1.24 [facility] Creat Clear, Urine Nor Wkly 85 L/wk [facility] 04/11/2022 04/13/2022 4:2 7 AM REMOTE COMPUTER TERMINAL OPERATOR Narrative [facility] - 04/13/2022 Unless otherwise specified, test(s) performed at: [facility], [address] [place] [address], [place] [address] SENIOR COMMUNICATIONS ENGINEER: Eze Park M.D., Ph.D For any questions, please call customer service at FREQUENCY:MONTHLY Resulting Agency Comment Specimen source: Urine Gabriel Mena MD LAB BODY FLUIDS AND STOOLS ORDERABLES [facility] * PDF CHEMISTRY (04/11/2022) Urea Nitrogen, PDF 24 Hr 1,289.7 mg/24 hr [facility] Urea Nitrogen, PDF Timed 39 mg/dL [facility] Comment: A reference range for this assay has not been established for body fluids. If blood results are available for this analyte, results may be interpreted in comparison to those results. Urea Clearance, PD Fluid 1.5 mL/min [facility] Urea Clearance, PDF Norm 2.0 mL/min [facility] Urea Clear, Tot Norm Wkly 46 L/wk [facility] Urea Clear, PDF Norm Wkly 15 L/wk [facility] Creatinine, PDF Timed Uncor 2.4 mg/dL [facility] Comment: A reference range for this assay has not been established for body fluids. If blood results are available for this analyte, results may be interpreted in comparison to those results. Creatinine, PDF Timed Cor 2.2 mg/dL [facility] Comment: Creatinine values have been corrected for glucose interference. [facility] glucose correction factor for creatinine is 0.0002. Creatinine, PDF 24 Hr 72.8 mg/24 hr [facility] Creatinine Clear, PDF 1.0 mL/min [facility] Creatinine Clear, PDF Norm 1.2 mL/min [facility] Creat Clear, PDF Norm Wkly 10 L/wk [facility] Creat Clear, Tot Wkly 77 L/wk [facility] Glucose, PDF Timed 1,098 mg/dL [facility] Comment: A reference range for this assay has not been established for body fluids. If blood results are available for this analyte, results may be interpreted in comparison to those results. 04/11/2022 04/13/2022 6:4 2 AM REMOTE COMPUTER TERMINAL OPERATOR Narrative Resulting Agency Comment Specimen source: PD Fluid Gabriel Mena MD LAB BODY FLUIDS AND STOOLS ORDERABLES [facility] * PD ADEQUACY (04/11/2022) Kt/V, Total 1.84 [facility] Comment: KDOQI Guidelines recommend weekly Kt/V of >=1.7 for adults. Kt/V, Peritoneal 0.60 [facility] Creat Clear, Tot Norm Wkly 97 L/wk [facility] Creat Clear, PDF Norm Wkly 12 L/wk [facility] PNA, Normalized 1.02 g/kg/day [facility] PNA 44 g/day [facility] 04/11/2022 04/13/2022 6:4 2 AM REMOTE COMPUTER TERMINAL OPERATOR Narrative Resulting Agency Comment Specimen source: PD Fluid Gabriel Mena MD LAB BODY FLUIDS AND STOOLS ORDERABLES [facility] * PATIENT INFORMATION (04/11/2022) Urea Volume Distribution ([place]) 25.1 L [facility] 04/11/2022 04/13/2022 6:4 2 AM REMOTE COMPUTER TERMINAL OPERATOR Narrative [facility] - 04/13/2022 Unless otherwise specified, test(s) performed at: [facility], [address] [place] [address], [place] [address] SENIOR COMMUNICATIONS ENGINEER: Eze Park M.D., Ph.D For any questions, please call customer service at FREQUENCY:MONTHLY Resulting Agency Comment Specimen source: PD Fluid Gabriel Mena MD LAB BLOOD ORDERABLES [facility] * (ABNORMAL) Spectrae Chemistry (04/11/2022) BUN 58(H) 6 - 19 mg/dL [facility] Creatinine 5.31(H) 0.60 - 1.30 mg/dL [facility] BUN/Creatinine Ratio 10.9 10.0 - 20.0 [facility] Sodium 137 136 - 145 mEq/L [facility] Potassium 5.0 3.5 - 5.1 mEq/L [facility] Chloride 99 96 - 108 mEq/L [facility] Bicarbonate (CO2) 27 20 - 31 mEq/L [facility] Comment: Please note change in reference range. Calcium 9.5 8.7 - 10.4 mg/dL [facility] Comment: Please note change in reference range. Corrected Calcium 9.9 8.7 - 10.4 mg/dL [facility] Comment: Corrected Calcium is not equivalent to measured Ionized Calcium. Phosphorus 6.0(H) 2.6 - 4.5 mg/dL [facility] Calcium Phosphorus Product 57(H) 0 - 54 [facility] Calcium Phosporus Product, Cor 59(H) 0 - 54 [facility] Albumin 3.5 3.5 - 5.2 g/dL [facility] Iron 80 30 - 160 mcg/dL [facility] UIBC 155 155 - 355 mcg/dL [facility] TIBC 235 185 - 515 mcg/dL [facility] Iron Saturation (TSat) 34 20 - 55 % [facility] 04/11/2022 04/13/2022 5:4 8 AM REMOTE COMPUTER TERMINAL OPERATOR Narrative [facility] - 04/13/2022 Unless otherwise specified, test(s) performed at: [facility], [address] [place] [address], [place] [address] SENIOR COMMUNICATIONS ENGINEER: Eze Park M.D., Ph.D For any questions, please call customer service at FREQUENCY:MONTHLY Resulting Agency Comment Specimen source: Serum Gabriel Mena MD LAB BLOOD ORDERABLES [facility] * (ABNORMAL) URINE CLEARANCE (04/11/2022) Urea Nitrogen, Urine Timed 268 mg/dL [facility] Urea Nitrogen, Urine 24 Hr 2.5(L) 12.0 - 20.0 g/24 hr [facility] Creatinine, Urine Timed 53.4 mg/dL [facility] Creatinine, 24H Ur 0.5 0.5 - 1.6 g/24 hr [facility] Urea Clear, Urine Norm 3.9(L) 64.0 - 99.0 mL/min [facility] Urea Clearance, Urine 3.0(L) 64.0 - 99.0 mL/min [facility] Urea Clear, Urine Norm Wkly 31 L/wk [facility] Creatinine Clear, Urine 6.6 mL/min [facility] Creat Clear, Urine Norm 8.4(L) 77.0 - 94.0 mL/min [facility] Creat Clear, Urine Wkly 66.5 L/wk [facility] 04/11/2022 04/13/2022 4:2 7 AM REMOTE COMPUTER TERMINAL OPERATOR Narrative Resulting Agency Comment Specimen source: Urine Gabriel Mena MD LAB URINE ORDERABLES Performing Organization Address [facility] Co de Phone Number [facility] * PATIENT INFORMATION (04/11/2022) Patient BSA 1.36 sq. M. [facility] Comment: Normalized values are calculated using the patient's actual BSA and normalized to the average BSA of 1.73m2. 04/11/2022 04/13/2022 5:4 8 AM REMOTE COMPUTER TERMINAL OPERATOR Narrative [facility] - 04/13/2022 Unless otherwise specified, test(s) performed at: [facility], [address] [place] [address], [place] [address] SENIOR COMMUNICATIONS ENGINEER: Eze Park M.D., Ph.D For any questions, please call customer service at FREQUENCY:MONTHLY Resulting Agency Comment Specimen source: PD Fluid Gabriel Mena MD LAB BLOOD ORDERABLES [facility] * PATIENT INFORMATION (04/11/2022) Patient Weight 43.6 [facility] Patient Height 152.0 [facility] Amputee Status NO [facility] Amputee Parts NONE [facility] ECT[facility] Drain volume, PDF 3,307 [facility] Collection Time, PDF 24.0 [facility] Urine Volume 950 [facility]TRA [facility] Collection Interval, Ur 24.0 [facility] 04/11/2022 04/11/2022 Narrative [facility] - 04/13/2022 Unless otherwise specified, test(s) performed at: [facility], [address] [place] [address], [place] [address] SENIOR COMMUNICATIONS ENGINEER: Eze Park M.D., Ph.D For any questions, please call customer service at FREQUENCY:MONTHLY Resulting Agency Comment Specimen source: PD Fluid Gabriel Mena MD LAB BLOOD ORDERABLES Performing Organization Address City/[facility]/ZIP Co de Phone Number [facility] documented in this encounter Visit Diagnoses Not on filedocumented in this encounter Care Teams Workers Compensation Defense Attorney Relationship Specialty Start Date End Date Tyrell Schneider MD [address] [place] [address] PCP - General 10/27/18 documented as of this encounter
--- OUTSIDE RECORDS SUMMARY | 2023-02-22 16:21 | XMS_ITS | Encounter Summary ---
Author Name Unknown Organization [facility] [place] Address [address] [facility] [address] [place] [address] Care Team Providers Care Voice Writing Reporter Name Role Phone Tyrell Schneider MD Primary Care Provider [phone] Encounter Details Date Type Department Care Team Description 08/08/2022 Orders Only [facility] [place] [address] [place] [address] Gabriel Mena MD [address] [place] [address] Social History Tobacco Use Types [...] Date/Time Associated Diagnosis Comments URINE CLEARANCE Routine 08/08/2022 PDF CHEMISTRY Routine 08/08/2022 PD ADEQUACY Routine 08/08/2022 PD ADEQUACY Routine 08/08/2022 PATIENT INFORMATION Routine 08/08/2022 PATIENT INFORMATION Routine 08/08/2022 PATIENT INFORMATION Routine 08/08/2022 CHEMISTRY Routine 08/08/2022 documented in this encounter Results * (ABNORMAL) URINE CLEARANCE (08/08/2022) Urea Nitrogen, Urine Timed 269 mg/dL [facility] Urea Nitrogen, Urine 24 Hr 3.5(L) 12.0 - 20.0 g/24 hr [facility] Urea Clear, Urine Norm 4.9(L) 64.0 - 99.0 mL/min [facility] Urea Clearance, Urine 3.9(L) 64.0 - 99.0 mL/min [facility] Urea Clear, Urine Norm Wkly 39 L/wk [facility] Creatinine, Urine Timed 47.0 mg/dL [facility] Creatinine, 24H Ur 0.6 0.5 - 1.6 g/24 hr [facility] Creatinine Clear, Urine 7.9 mL/min [facility] Creat Clear, Urine Norm 10.1(L) 77.0 - 94.0 mL/min [facility] Creat Clear, Urine Wkly 79.6 L/wk [facility] 08/08/2022 08/09/2022 12: 47 PM CDT Narrative Resulting Agency Comment Specimen source: Urine Gabriel Mena MD LAB URINE ORDERABLES [facility] * PD ADEQUACY (08/08/2022) Kt/V, Residual 1.55 [facility] Creat Clear, Urine Nor Wkly 102 L/wk [facility] 08/08/2022 08/09/2022 12: 47 PM CDT Narrative [facility] - 08/09/2022 Unless otherwise specified, test(s) performed at: [facility], [address] [place] [address], [place] [address] PHARMACY INNOVATION ASSISTANT: Eze Park M.D., Ph.D For any questions, please call customer service at FREQUENCY:OTHER Resulting Agency Comment Specimen source: Urine Gabriel Mena MD LAB BODY FLUIDS AND STOOLS ORDERABLES [facility] * PDF CHEMISTRY (08/08/2022) Urea Nitrogen, PDF 24 Hr 1,529.3 mg/24 hr [facility] Urea Nitrogen, PDF Timed 49 mg/dL [facility] Comment: A reference range for this assay has not been established for body fluids. If blood results are available for this analyte, results may be interpreted in comparison to those results. Urea Clearance, PD Fluid 1.7 mL/min [facility] Urea Clearance, PDF Norm 2.1 mL/min [facility] Urea Clear, PDF Norm Wkly 17 L/wk [facility] Creatinine, PDF Timed Uncor 2.5 mg/dL [facility] Comment: A reference range for this assay has not been established for body fluids. If blood results are available for this analyte, results may be interpreted in comparison to those results. Creatinine, PDF Timed Cor 2.3 mg/dL [facility] Comment: Creatinine values have been corrected for glucose interference. [facility] glucose correction factor for creatinine is 0.0002. Creatinine, PDF 24 Hr 71.8 mg/24 hr [facility] Creatinine Clear, PDF 0.9 mL/min [facility] Creatinine Clear, PDF Norm 1.2 mL/min [facility] Creat Clear, PDF Norm Wkly 9 L/wk [facility] Glucose, PDF Timed 1,090 mg/dL [facility] Comment: A reference range for this assay has not been established for body fluids. If blood results are available for this analyte, results may be interpreted in comparison to those results. Urea Clear, Tot Norm Wkly 56 L/wk [facility] Creat Clear, Tot Wkly 89 L/wk [facility] 08/08/2022 08/09/2022 11: 17 AM CDT Narrative Resulting Agency Comment Specimen source: PD Fluid Gabriel Mena MD LAB BODY FLUIDS AND STOOLS ORDERABLES [facility] * PD ADEQUACY (08/08/2022) Kt/V, Peritoneal 0.68 [facility] Creat Clear, PDF Norm Wkly 12 L/wk [facility] Kt/V, Total 2.23 [facility] Comment: KDOQI Guidelines recommend weekly Kt/V of >=1.7 for adults. Creat Clear, Tot Norm Wkly 114 L/wk [facility] PNA, Normalized 1.22 g/kg/day [facility] PNA 53 g/day [facility] 08/08/2022 08/09/2022 11: 17 AM CDT Narrative [facility] - 08/09/2022 Unless otherwise specified, test(s) performed at: [facility], [address] [place] [address], [place] [address] PHARMACY INNOVATION ASSISTANT: Eze Park M.D., Ph.D For any questions, please call customer service at FREQUENCY:OTHER Resulting Agency Comment Specimen source: PD Fluid Gabriel Mena MD LAB BODY FLUIDS AND STOOLS ORDERABLES Performing Organization Address [facility] de Phone Number [facility] * PATIENT INFORMATION (08/08/2022) Pathologist [facility] Urea Volume Distribution (Allen) 25.1 L [facility] 08/08/2022 08/09/2022 11: 17 AM CDT Narrative [facility] - 08/09/2022 Unless otherwise specified, test(s) performed at: [facility], [address] [place] [address], [place] [address] PHARMACY INNOVATION ASSISTANT: Eze Park M.D., Ph.D For any questions, please call customer service at FREQUENCY:OTHER Resulting Agency Comment Specimen source: PD Fluid Gabriel Mena MD LAB BLOOD ORDERABLES Performing Organization Address [facility] Co de Phone Number [facility] * (ABNORMAL) [facility] Chemistry (08/08/2022) Pathologist [facility] BUN 63(H) 6 - 19 mg/dL [facility] Creatinine 5.34(H) 0.60 - 1.30 mg/dL [facility] BUN/Creatinine Ratio 11.8 10.0 - 20.0 [facility] Calcium 8.8 8.7 - 10.4 mg/dL [facility] Comment: Please note change in reference range. Phosphorus 5.2(H) 2.6 - 4.5 mg/dL [facility] Calcium Phosphorus Product 46 0 - 54 [facility] 08/08/2022 08/09/2022 11: 19 AM CDT Narrative Resulting Agency Comment Specimen source: Serum Gabriel Mena MD LAB BLOOD ORDERABLES Performing Organization Address [facility] Co de Phone Number [facility] * PATIENT INFORMATION (08/08/2022) Patient BSA 1.36 sq. M. [facility] Comment: Normalized values are calculated using the patient's actual BSA and normalized to the average BSA of 1.73m2. 08/08/2022 08/09/2022 11: 19 AM CDT Narrative [facility] - 08/09/2022 Unless otherwise specified, test(s) performed at: [facility], [address] [place] [address], [place] [address] PHARMACY INNOVATION ASSISTANT: Eze Park M.D., Ph.D For any questions, please call customer service at FREQUENCY:OTHER Resulting Agency Comment Specimen source: PD Fluid Gabriel Mena MD LAB BLOOD ORDERABLES [facility] * PATIENT INFORMATION (08/08/2022) Patient Weight 43.6 [facility] Patient Height 152.0 [facility] Amputee Status NO [facility] Amputee Parts NONE [facility] Drain volume, PDF 3,121 [facility] Collection Time, PDF 24.0 [facility] Urine Volume 1,300 [facility] Collection Interval, Ur 24.0 [facility] 08/08/2022 08/08/2022 Narrative [facility] - 08/09/2022 Unless otherwise specified, test(s) performed at: [facility], [address] [place] [address], [place] [address] PHARMACY INNOVATION ASSISTANT: Eze Park M.D., Ph.D For any questions, please call customer service at FREQUENCY:OTHER Resulting Agency Comment Specimen source: PD Fluid Gabriel Mena MD LAB BLOOD ORDERABLES [facility] documented in this encounter Visit Diagnoses Not on filedocumented in this encounter Care Teams Voice Writing Reporter Relationship Specialty Start Date End Date Tyrell Schneider MD [address] [place] [address] PCP - General 10/27/18 documented as of this encounter
--- OUTSIDE RECORDS SUMMARY | 2023-02-22 16:21 | XMS_ITS | Encounter Summary ---
Author Name Unknown Organization [facility] [place] Address [address] [facility] [address] [place] [address] Care Team Providers Care Flotation Tank Operator Name Role Phone Tyrell Schneider MD Primary Care Provider [phone] Encounter Details Date Type Department Care Team Description 05/16/2022 Orders Only [facility] [address] [place] [address] Gabriel Mena MD [address] [place] [address] Social History Tobacco Use Types [...] Priority Date/Time Associated Diagnosis Comments HEMATOLOGY Routine 05/16/2022 CHEMISTRY Routine 05/16/2022 CHEMISTRY Routine 05/16/2022 documented in this encounter Results * [facility] Chemistry (05/16/2022) PTH 69 16 - 80 pg/mL [facility] 05/16/2022 05/17/2022 10: 20 AM CDT Narrative [facility] - 05/17/2022 Unless otherwise specified, test(s) performed at: [facility], [address] [place] [address], [place] [address] REFRIGERATION MECHANIC HELPER: Eze Park M.D., Ph.D For any questions, please call customer service at FREQUENCY:MONTHLY Resulting Agency Comment Specimen source: Plasma Gabriel Mena MD LAB BLOOD ORDERABLES [facility] * (ABNORMAL) [facility] Chemistry (05/16/2022) BUN 55(H) 6 - 19 mg/dL [facility] Creatinine 5.56(H) 0.60 - 1.30 mg/dL [facility] BUN/Creatinine Ratio 9.9(L) 10.0 - 20.0 [facility] Sodium 138 136 - 145 mEq/L [facility] Potassium 4.2 3.5 - 5.1 mEq/L [facility] Chloride 101 96 - 108 mEq/L [facility] Bicarbonate (CO2) 29 20 - 31 mEq/L [facility] Comment: Please note change in reference range. Calcium 9.6 8.7 - 10.4 mg/dL [facility] Comment: Please note change in reference range. Corrected Calcium 10.0 8.7 - 10.4 mg/dL [facility] Comment: Corrected Calcium is not equivalent to measured Ionized Calcium. Phosphorus 6.5(H) 2.6 - 4.5 mg/dL [facility] Calcium Phosphorus Product 62(H) 0 - 54 [facility] Calcium Phosporus Product, Cor 65(H) 0 - 54 [facility] Alkaline Phosphatase 62 35 - 104 U/L [facility] Albumin 3.5 3.5 - 5.2 g/dL [facility] Magnesium 2.2 1.6 - 2.6 mg/dL [facility] Ferritin 1,626(H) 10 - 291 ng/mL [facility] Iron 70 30 - 160 mcg/dL [facility] UIBC 185 155 - 355 mcg/dL [facility] TIBC 255 185 - 515 mcg/dL [facility] Iron Saturation (TSat) 27 20 - 55 % [facility] 05/16/2022 05/17/2022 6:0 7 AM CDT Narrative [facility] - 05/17/2022 Unless otherwise specified, test(s) performed at: [facility], [address] [place] [address], [place] [address] REFRIGERATION MECHANIC HELPER: Eze Park M.D., Ph.D For any questions, please call customer service at FREQUENCY:MONTHLY Resulting Agency Comment Specimen source: Serum Gabriel Mena MD LAB BLOOD ORDERABLES [facility] * (ABNORMAL) HEMATOLOGY (05/16/2022) Neutrophils 73.9 40.0 - 75.0 % [facility] Lymphocytes Relative 8.1(L) 19.0 - 48.0 % [facility] Monocytes 3.6 3.0 - 10.0 % [facility] Eosinophils Relative 12.7(H) 0.0 - 7.0 % [facility] Basophils Relative 0.3 0.0 - 1.5 % [facility] JUANITO 1.3 0.0 - 4.0 % [facility] WBC 10.08 4.80 - 10.80 1000/mcL [facility] RBC 3.81(L) 4.20 - 5.40 mill/mcL [facility] Hematocrit 33.8(L) 37.0 - 47.0 % [facility] MCV 89 80 - 100 fl [facility] MCH 28.6 27.0 - 31.0 pg [facility] MCHC 32.3 30.0 - 36.0 g/dL [facility] RDW 18.2(H) 11.5 - 14.5 % [facility] Hemoglobin 10.9(L) 12.0 - 16.0 g/dL [facility] Hemoglobin x 3 32.7(L) 36.0 - 48.0 % [facility] 05/16/2022 05/17/2022 7:0 3 AM CDT Narrative [facility] - 05/17/2022 Unless otherwise specified, test(s) performed at: [facility], [address] [facility], [place] [address] REFRIGERATION MECHANIC HELPER: Eze Park M.D., Ph.D For any questions, please call customer service at FREQUENCY:MONTHLY Resulting Agency Comment Specimen source: Blood Gabriel Mena MD LAB BLOOD ORDERABLES [facility] documented in this encounter Visit Diagnoses Not on filedocumented in this encounter Care Teams Flotation Tank Operator Relationship Specialty Start Date End Date Tyrell Schneider MD [address] [place] [address] PCP - General 10/27/18 documented as of this encounter
--- OUTSIDE RECORDS SUMMARY | 2023-02-22 16:21 | XMS_ITS | Encounter Summary ---
Author Name Unknown Organization [facility] Address [address] [place] [address] Care Team Providers Care Vegetable Harvest Worker Name Role Phone Tyrell Schneider MD Primary Care Provider [phone] Encounter Details Date Type Department Care Team Description 04/11/2022 Treatment [facility] [place] [address] [place] [address] Gabriel Mena MD [address] [place] [address] Social History Tobacco Use Types Packs/Day Years Used Date Smoking Tobacco: Never Assessed Sex and Gender Information Value Date Recorded Sex Assigned at Not on file Gender Identity Not on file Sexual Orientation Not on file documented as of this encounter Miscellaneous Notes * Dialysis Note - Gabriel Mena MD - 04/11/2022 12:07 PM CST Date: Apr 11, 2022 Patient Name: Maricruz Vanegas : 1945 Chart #: [id number] Sex: F This patient was personally seen for a complete visit as part of routine monthly dialysis care. A review of the dialysis treatment, blood pressure, estimated dry weight, and recent lab values was made. These were discussed with the patient and staff as necessary. HR BUSINESS PARTNER: Gabriel Mena MD LOCATION: [phone] SCHEDULE: No Routine Schedule Subjective Tolerating dialysis well. 04/11/22: She is feeling well. No issues [...] protein supplement (Novasource). She ran out of [employer], we are working on getting this refilled [...] yet and is waiting to hear from [facility]. She feelsher breathing is better after we [...] 07/19/21: She is re-scheduling her procedure at [facility] to August. Her back and legs feel [...] injection therapy to help stop smoking with [facility] this month. She has back surgery scheduled [...] and she has appt with surgeon at [facility] next week with x- rays scheduled. 03/15/21: [...] 11/23/20: Her back surgery was postponed with [facility]. Still same pain. No new symptoms. BP 140/60 at home or close to this. Wt stable. No uremia symptoms. 10/12/20: She is having progressively worsening pain in her low back, saw ortho, surgery is planned (sounds like a fusion procedure) at [facility] but it is not yet scheduled. 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 Ferritin is at goal. Will adjust ELA and intravenous iron. Nutritional and Metabolic Assessment ALBUMIN (G/DL) g/dL 3.3 (03/30/22) 3.3 (02/14/22) 3.4 (01/29/22) BICARBONATE (CO2) mEq/L 26 (03/30/22) 32 (02/14/22) 27 (01/29/22) POTASSIUM (MMOL/L) IN SER/PLAS mEq/L 4.7 (03/30/22) 4.1 (02/14/22) 4.7 (01/29/22) Sodium mEq/L 139 (03/30/22) 139 (02/14/22) 137 (01/29/22) 25 OH VITAMIN D ng/mL 32.6 (02/14/22) 34.3 (02/15/21) 38.6 (08/17/20) Albumin is below goal. Encourage high biological value protein intake. Oral nutritional supplement program. Potassium is at goal. Continue protein supplement, trying to achieve goal of >3.5 currently and hoping we can maintainthis Bone and Mineral Metabolism Assessment CALCIUM mg/dL 8.7 (03/30/22) 8.5 (02/14/22) 8.5 (01/29/22) CALCIUM (MG/DL) CORRECTED FOR ALBUMIN IN SER/PLAS mg/dL 9.3 (03/30/22) 9.1 (02/14/22) 9.0 (01/29/22) CALCIUM PHOSPHORUS PRODUCT, COR 65 (03/30/22) 41 (02/14/22) 45 (01/29/22) PHOSPHATE (MG/DL) IN SER/PLAS mg/dL 7.0 (03/30/22) 4.5 (02/14/22) 5.0 (01/29/22) IPTH pg/mL 330 (03/30/22) 368 (02/14/22) 195 (12/27/21) Corrected calcium is at goal. Phosphorus is above goal. Intact PTH is at goal. Care team will adjust binders and oral vitamin D per protocol and continue to provide dietary education. Cardiovascular Assessment Blood pressure reviewed and is acceptable. Continue same cardiovascular medications. Estimated dry weight is too high, will decrease. Lower EDW to 44 Kg Transplant Status Patient is not a candidate. Age and co-morbidities Resuscitation Status Additional Comments: Overall, PD going well on low prescription Repeat adequacy today No changes in medications, repeat phos and may need to adjust binders if high again Consider screening CT chest, losing weight and heavy smoking hx Gabriel Mena MD [ Signed And locked electronically On 04/11/2022 at 12:09:51 PM ] Transcribed: Gabriel Mena ( 04/11/2022 ) documented in this encounter Plan of Treatment Not on file documented as of this encounter Visit Diagnoses Not on filedocumented in this encounter Care Teams Vegetable Harvest Worker Relationship Specialty Start Date End Date Tyrell Schneider MD [address] [place] [address] PCP - General 10/27/18 documented as of this encounter
--- OUTSIDE RECORDS SUMMARY | 2023-02-22 16:21 | XMS_ITS | Encounter Summary ---
Author Name Unknown Organization [facility] Address [address] [place] [address] Care Team Providers Care Avionics Technician Name Role Phone Tyrell Schneider MD Primary Care Provider [phone] Encounter Details Date Type Department Care Team Description 08/08/2022 Treatment [facility] [place] [address] [place] [address] Gabriel Mena MD [address] [place] [address] Social History Tobacco Use Types Packs/Day Years Used Date Smoking Tobacco: Never Assessed Sex and Gender Information Value Date Recorded Sex Assigned at Not on file Gender Identity Not on file Sexual Orientation Not on file documented as of this encounter Miscellaneous Notes * Dialysis Note - Gabriel Mena MD - 08/08/2022 4:33 PM CDT Date: Aug 08, 2022 Patient Name: Maricruz Vanegas : 1945 Chart #: [id number] Sex: F This patient was personally seen for a complete visit as part of routine monthly dialysis care. A review of the dialysis treatment, blood pressure, estimated dry weight, and recent lab values was made. These were discussed with the patient and staff as necessary. HEALTHCARE RECRUITER: Gabriel Mena MD LOCATION: [phone] SCHEDULE: No Routine Schedule Subjective Tolerating dialysis well. 08/08: She has had issues with an [...] protein supplement (Novasource). She ran out of [employer], we are working on getting this refilled [...] yet and is waiting to hear from [facility]. She feelsher breathing is better after we [...] 07/19/21: She is re-scheduling her procedure at [facility] to August. Her back and legs feel [...] injection therapy to help stop smoking with [facility] this month. She has back surgery scheduled [...] and she has appt with surgeon at [facility] next week with x- rays scheduled. 03/15/21: [...] 11/23/20: Her back surgery was postponed with [facility] filling hospitals. Still same pain. No new symptoms. BP 140/60 at home or close to this. Wt stable. No uremia symptoms. 10/12/20: She is having progressively worsening pain in her low back, saw ortho, surgery is planned (sounds like a fusion procedure) at [facility] but it is not yet scheduled. 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 Continue current prescription. Residual function down ut continues to be good and fluctuates. No change in prescription necessary at this time. BUN remains <75 Adequacy being done today Peritoneal Dialysis Access Assessment Placed on: 06/2018 Sur[place] - [facility] [place] and patient report access is working [...] Bone and Mineral Metabolism Assessment CALCIUM mg/dL 10.4 (07/24/22) 8.6 (06/13/22) 9.6 (05/16/22) CALCIUM (MG/DL) CORRECTED FOR ALBUMIN IN SER/PLAS mg/dL 10.9 (07/24/22) 9.2 (06/13/22) 10.0 (05/16/22) CALCIUM PHOSPHORUS PRODUCT, COR 66 (07/24/22) 39 (06/13/22) 65 (05/16/22) PHOSPHATE (MG/DL) IN SER/PLAS mg/dL 6.1 (07/24/22) 4.2 (06/13/22) 6.5 (05/16/22) IPTH pg/mL 37 (07/24/22) 240 (06/13/22) 69 (05/16/22) Corrected calcium is above goal. Phosphorus is above goal. Intact PTH is at goal. Care team will adjust binders and oral vitamin D per protocol and continue to provide dietary education. Hold VIt D, monitor Ca Continue binder, discussed low phos diet Cardiovascular Assessment Blood pressure reviewed and is acceptable. Continue same cardiovascular medications. Estimated dry weight is appropriate. Transplant Status Patient is not a candidate. Age and co-morbidities Resuscitation Status Additional Comments: Overall, PD going well on low prescription Repeat adequacy today Low phos diet discussed Stop baby ASA until no bleeding from external PD site, she will call if occurs despite this. Gabriel Mena MD [ Signed And locked electronically On 08/08/2022 at 04:36:58 PM ] Transcribed: Gabriel Mena ( 08/08/2022 ) documented in this encounter Plan of Treatment Not on file documented as of this encounter Visit Diagnoses Not on filedocumented in this encounter Care Teams Avionics Technician Relationship Specialty Start Date End Date Tyrell Schneider MD [address] [place] [address] PCP - General 10/27/18 documented as of this encounter
--- OUTSIDE RECORDS SUMMARY | 2023-02-22 16:21 | XMS_ITS | Encounter Summary ---
Author Name Unknown Organization [facility] [place] Address [address] [facility] [address] [place] [address] Care Team Providers Care Inspector Integrated Circuits Name Role Phone Tyrell Schneider MD Primary Care Provider [phone] Encounter Details Date Type Department Care Team Description 06/13/2022 Orders Only [facility] [address] [place] [address] Gabriel Mena MD [address] [place] [address] Social History Tobacco Use Types [...] Priority Date/Time Associated Diagnosis Comments HEMATOLOGY Routine 06/13/2022 CHEMISTRY Routine 06/13/2022 CHEMISTRY Routine 06/13/2022 documented in this encounter Results * (ABNORMAL) [facility] Chemistry (06/13/2022) BUN 47(H) 6 - 19 mg/dL [facility] Creatinine 4.88(H) 0.60 - 1.30 mg/dL [facility] BUN/Creatinine Ratio 9.6(L) 10.0 - 20.0 [facility] Sodium 140 136 - 145 mEq/L [facility] Potassium 4.3 3.5 - 5.1 mEq/L [facility] Chloride 100 96 - 108 mEq/L [facility] Bicarbonate (CO2) 32(H) 20 - 31 mEq/L [facility] Comment: Please note change in reference range. Calcium 8.6(L) 8.7 - 10.4 mg/dL [facility] Comment: Please note change in reference range. Corrected Calcium 9.2 8.7 - 10.4 mg/dL [facility] Comment: Corrected Calcium is not equivalent to measured Ionized Calcium. Phosphorus 4.2 2.6 - 4.5 mg/dL [facility] Calcium Phosphorus Product 36 0 - 54 [facility] Calcium Phosporus Product, Cor 39 0 - 54 [facility] Albumin 3.3(L) 3.5 - 5.2 g/dL [facility] Iron 136 30 - 160 mcg/dL [facility] UIBC 86(L) 155 - 355 mcg/dL [facility] TIBC 222 185 - 515 mcg/dL [facility] Iron Saturation (TSat) 61(H) 20 - 55 % [facility] 06/13/2022 06/14/2022 6:2 2 PM CDT Narrative [facility] - 06/14/2022 Unless otherwise specified, test(s) performed at: [facility], [address] [place] [address], [place] [address] DESKTOP PUBLISHING ASSOCIATE: Eze Park M.D., Ph.D For any questions, please call customer service at FREQUENCY:MONTHLY Resulting Agency Comment Specimen source: Serum Gabriel Mena MD LAB BLOOD ORDERABLES [facility] * (ABNORMAL) HEMATOLOGY (06/13/2022) Neutrophils 71.6 40.0 - 75.0 % [facility] Lymphocytes Relative 10.8(L) 19.0 - 48.0 % [facility] Monocytes 4.3 3.0 - 10.0 % [facility] Eosinophils Relative 11.1(H) 0.0 - 7.0 % [facility] Basophils Relative 0.6 0.0 - 1.5 % [facility] JUANITO 1.6 0.0 - 4.0 % [facility] WBC 9.94 4.80 - 10.80 1000/mcL [facility] RBC 3.61(L) 4.20 - 5.40 mill/mcL [facility] Hematocrit 34.9(L) 37.0 - 47.0 % [facility] MCV 97 80 - 100 fl [facility] MCH 30.2 27.0 - 31.0 pg [facility] MCHC 31.3 30.0 - 36.0 g/dL [facility] RDW 17.6(H) 11.5 - 14.5 % [facility] Hemoglobin 10.9(L) 12.0 - 16.0 g/dL [facility] Hemoglobin x 3 32.7(L) 36.0 - 48.0 % [facility] 06/13/2022 06/14/2022 5:5 2 PM CDT Narrative [facility] - 06/14/2022 Unless otherwise specified, test(s) performed at: [facility], [address] [place] [address], [place] [address] DESKTOP PUBLISHING ASSOCIATE: Eze Park M.D., Ph.D For any questions, please call customer service at FREQUENCY:MONTHLY Resulting Agency Comment Specimen source: Blood Gabriel Mena MD LAB BLOOD ORDERABLES [facility] * (ABNORMAL) [facility] Chemistry (06/13/2022) PTH 240(H) 16 - 80 pg/mL [facility] 06/13/2022 06/14/2022 5:4 9 PM CDT Narrative [facility] - 06/14/2022 Unless otherwise specified, test(s) performed at: [facility], [address] [place] [address], [place] [address] DESKTOP PUBLISHING ASSOCIATE: Eze Park M.D., Ph.D For any questions, please call customer service at FREQUENCY:MONTHLY Resulting Agency Comment Specimen source: Plasma Gabriel Mena MD LAB BLOOD ORDERABLES [facility] documented in this encounter Visit Diagnoses Not on filedocumented in this encounter Care Teams Inspector Integrated Circuits Relationship Specialty Start Date End Date Tryell Schneider MD [address] [place] [address] PCP - General 10/27/18 documented as of this encounter
--- OUTSIDE RECORDS SUMMARY | 2023-02-22 16:21 | XMS_ITS | Encounter Summary ---
Author Name Unknown Organization [facility] Address [address] [facility] [address] [place] [address] Care Team Providers Care News Specialist Name Role Phone Tyrell Schneider MD Primary Care Provider [phone] Encounter Details Date Type Department Care Team Description 07/24/2022 Orders Only [facility] [place] [address] [place] [address] Gabriel Mena MD [address] [place] [address] Social History Tobacco Use Types [...] Priority Date/Time Associated Diagnosis Comments HEMATOLOGY Routine 07/24/2022 CHEMISTRY Routine 07/24/2022 CHEMISTRY Routine 07/24/2022 documented in this encounter Results * (ABNORMAL) [facility] Chemistry (07/24/2022) BUN 60(H) 6 - 19 mg/dL [facility] Creatinine 5.15(H) 0.60 - 1.30 mg/dL [facility] BUN/Creatinine Ratio 11.7 10.0 - 20.0 [facility] Sodium 135(L) 136 - 145 mEq/L [facility] Potassium 4.5 3.5 - 5.1 mEq/L [facility] Chloride 98 96 - 108 mEq/L [facility] Bicarbonate (CO2) 29 20 - 31 mEq/L [facility] Calcium 10.4 8.7 - 10.4 mg/dL [facility] Comment: Please note change in reference range. Custom Exception Corrected Calcium 10.9(H) 8.7 - 10.4 mg/dL [facility] Comment: Corrected Calcium is not equivalent to measured Ionized Calcium. Phosphorus 6.1(H) 2.6 - 4.5 mg/dL [facility] Calcium Phosphorus Product 63(H) 0 - 54 [facility] Calcium Phosporus Product, Cor 66(H) 0 - 54 [facility] Albumin 3.4(L) 3.5 - 5.2 g/dL [facility] Iron 91 30 - 160 mcg/dL [facility] UIBC 137(L) 155 - 355 mcg/dL [facility] TIBC 228 185 - 515 mcg/dL [facility] Iron Saturation (TSat) 40 20 - 55 % [facility] 07/24/2022 07/26/2022 2:3 9 PM CDT Narrative [facility] - 07/26/2022 Unless otherwise specified, test(s) performed at: [facility], [address] [place] [address], [place] [address] RELIEF OPERATOR: Eze Park M.D., Ph.D For any questions, please call customer service at FREQUENCY:MONTHLY Resulting Agency Comment Specimen source: Serum Gabriel Mena MD LAB BLOOD ORDERABLES [facility] * (ABNORMAL) HEMATOLOGY (07/24/2022) Neutrophils 75.5(H) 40.0 - 75.0 % [facility] Lymphocytes Relative 9.5(L) 19.0 - 48.0 % [facility] Monocytes 4.7 3.0 - 10.0 % [facility] Eosinophils Relative 7.4(H) 0.0 - 7.0 % [facility] Basophils Relative 1.1 0.0 - 1.5 % [facility] JUANITO 1.8 0.0 - 4.0 % [facility] WBC 8.91 4.80 - 10.80 1000/mcL [facility] RBC 3.51(L) 4.20 - 5.40 mill/mcL [facility] Hematocrit 35.8(L) 37.0 - 47.0 % [facility] MCV 102(H) 80 - 100 fl [facility] MCH 30.3 27.0 - 31.0 pg [facility] MCHC 29.8(L) 30.0 - 36.0 g/dL [facility] RDW 17.2(H) 11.5 - 14.5 % [facility] Hemoglobin 10.6(L) 12.0 - 16.0 g/dL [facility] Hemoglobin x 3 31.8(L) 36.0 - 48.0 % [facility] 07/24/2022 07/26/2022 2:4 5 PM CDT Narrative [facility] - 07/26/2022 Unless otherwise specified, test(s) performed at: [facility], [address] [place] [address], [place] [address] RELIEF OPERATOR: Eze Park M.D., Ph.D For any questions, please call customer service at FREQUENCY:MONTHLY Resulting Agency Comment Specimen source: Blood Gabriel Mena MD LAB BLOOD ORDERABLES [facility] * Spectrae Chemistry (07/24/2022) PTH 37 16 - 80 pg/mL [facility] 07/24/2022 07/26/2022 3:1 7 PM CDT Narrative [facility] - 07/26/2022 Unless otherwise specified, test(s) performed at: [facility], [address] [place] [address], [place] [address] RELIEF OPERATOR: Eze Park M.D., Ph.D For any questions, please call customer service at FREQUENCY:MONTHLY Resulting Agency Comment Specimen source: Plasma Gabriel Mena MD LAB BLOOD ORDERABLES [facility] documented in this encounter Visit Diagnoses Not on filedocumented in this encounter Care Teams News Specialist Relationship Specialty Start Date End Date Tyrell Schneider MD [address] [place] [address] PCP - General 10/27/18 documented as of this encounter
== END 2023-02-19 17:35 | disposition home or self-care (01) ==
LOC: AMB 02-22 16:07
PROVIDERS: PCP Family Medicine; Visit Provider Emergency Medicine
DX: R10.9 Unspecified abdominal pain (principal)
CPT/HCPCS: A0425; A0427

== ENCOUNTER 2023-12-03 19:17 | Emergency (ER) | payer MEDICARE, BC, SELFPAY ==
[2023-12-03 19:38] VITALS: BP 176/101; PULSE 60; RESP 20; TEMP 36.7; O2SAT 99; BMI 16.4
--- NOTE | 2023-12-03 19:47 | CRLHL7_ITS ---
For Patients: As a result of the Century Cures Act, medical imaging exams and procedure reports are released immediately into your electronic medical record. You may view this report before your referring provider. If you have questions, please contact your health care provider. INDICATION: Cough, chest pain. TECHNIQUE: Chest radiographs, 2 views. COMPARISON: CTA chest 11/28/2022. Chest radiographs 11/24/2022. FINDINGS: Cardiovascular/Mediastinum: Normal heart size. Atherosclerotic calcifications of the aortic arch. Lungs: Persistent hazy ill-defined opacification of the right lower lung zone medially, increased in prominence on the lateral projection. Linear bandlike opacification of the lungs bilaterally, likely subsegmental atelectasis and/or scarring. Airways: Trachea remains midline. Pleura: No pleural effusions or pneumothorax. Bones: No acute osseous abnormalities. Upper abdomen: Unremarkable. IMPRESSION: Persistent hazy opacification of the right lower lung zone, increased in conspicuity since prior radiographs. This may represent scarring or a developing pneumonia in the appropriate clinical setting. Dictated by Nuno Boogie MD @ 12/03/2023 8:40:12 PM (Electronically Signed)
--- NOTE | 2023-12-03 19:49 | ED.GENADULT ---
HPI - General Adult General Date Seen: 12/03/23 Chief complaint: Extremity Pain/Injury, Upper Stated complaint: left arm pain Time Seen by Provider: 12/03/23 19:41 Source: patient Mode of arrival: ambulatory Limitations: no limitations History of Present Illness HPI narrative: Patient is a 78-year-old woman, dialysis patient, who presents for evaluation of her left arm. She says that a couple of weeks ago at dialysis she felt like they had trouble kind of shoving the needle into her arm and she had some swelling for a few days after that. She says she used ice, has continue to dialyze and that seems to have resolved. She dialyzed yesterday. She says that since yesterday she has had pain in her left chest when she pushes on her chest or when she coughs. She says she has had the cough for about 3 months ever since they started putting her by the air conditioner at dialysis. She says that she asked them to move her way from the air conditioner but they refused. She has not had a fever, has not had any unusual leg pain or swelling, does not have chest pain with deep breath. Has not felt short of breath. Has not had any exertional chest pain. Primarily, she says she wanted to get arm checked out to make sure that it was okay after this event a couple of weeks ago. Related Data Home Medications ?Medication ?Instructions ?Recorded ?Confirmed albuterol sulfate 2.5 mg/3 mL 2.5 mg Q4H PRN dyspnea 11/28/22 (0.083 %) solution for nebulization amlodipine 10 mg tablet 10 mg PO BID 11/28/22 12/03/23 aspirin 81 mg capsule 81 mg PO DAILY 11/28/22 12/03/23 clonidine HCl 0.1 mg tablet 0.1 mg PO DIRECTED 11/28/22 12/03/23 furosemide 40 mg tablet 40 mg PO QAM 11/28/22 12/03/23 glipizide 10 mg tablet, extended 10 mg PO DAILY 11/28/22 12/03/23 release 24 hr labetalol 300 mg tablet 300 mg PO 3XD 11/28/22 12/03/23 oxycodone 5 mg tablet 5 mg PO BID PRN 11/28/22 12/03/23 repaglinide 1 mg tablet 1 mg PO 3XD 11/28/22 12/03/23 sennosides 8.6 mg tablet (senna) 8.6 - 34.4 mg PO DAILY PRN 11/28/22 12/03/23 sorbitol 70 % solution 30 ml PO DAILY PRN constipation 11/28/22 12/03/23 albuterol sulfate 90 mcg/actuation 2 puff inhalation BID 12/03/23 12/03/23 aerosol inhaler calcium acetate(phosphat bind) 667 1,334 mg PO 3XD 12/03/23 12/03/23 mg capsule dextran 70-hypromellose (PF) 0.1 1 drp ophthalmic (eye) DIRECTED 12/03/23 12/03/23 %-0.3 % eye drops in a dropperette (Bion Tears (PF)) ipratropium 0.5 mg-albuterol 3 mg 3 ml inhalation Q6H PRN dyspnea 12/03/23 12/03/23 (2.5 mg base)/3 mL nebulization soln nifedipine 90 mg tablet,extended 90 mg PO DAILY 12/03/23 12/03/23 release 24 hr pantoprazole 40 mg tablet,delayed 40 mg PO BID 12/03/23 12/03/23 release spironolactone 25 mg tablet 25 mg PO DAILY 12/03/23 12/03/23 umeclidinium 62.5 mcg/actuation 1 inh inhalation DAILY 12/03/23 12/03/23 blister powder for inhalation (Incruse Ellipta) Previous Rx's ?Medication ?Instructions ?Recorded levofloxacin 500 mg tablet 500 mg PO .QOD 10 days #5 tabs 12/03/23 Allergies Allergy/AdvReac Type Severity Reaction Status Date / Time atenolol Allergy Unknown Rash Verified 12/03/23 19:43 atorvastatin [From Lipitor] Allergy Unknown Verified 12/03/23 19:43 cat dander Allergy Unknown Difficulty Verified 12/03/23 19:43 Breathing dog dander Allergy Unknown Sneezing Verified 12/03/23 19:43 zarco Allergy Unknown Edema Verified 12/03/23 19:43 gemfibrozil Allergy Unknown Verified 12/03/23 19:43 hydrochlorothiazide Allergy Unknown Rash Verified 12/03/23 19:43 losartan Allergy Unknown Verified 12/03/23 19:43 niacin Allergy Unknown Verified 12/03/23 19:43 oak Allergy Unknown Rash Verified 12/03/23 19:43 pioglitazone Allergy Unknown Verified 12/03/23 19:43 ampicillin Allergy Hives Verified 12/03/23 19:43 dulaglutide [From Trulicity] AdvReac Unknown Vomiting Verified 12/03/23 19:43 pravastatin AdvReac Unknown Verified 12/03/23 19:43 simvastatin AdvReac Unknown Verified 12/03/23 19:43 gatifloxacin [From Tequin] AdvReac Nausea Verified 12/03/23 19:43 lisinopril AdvReac Cough Verified 12/03/23 19:43 Review of Systems Status of ROS: Reports: 6 or more systems reviewed and unremarkable except as noted in History and below PFSH [facility] Social History Smoking Status: Current some day smoker What tobacco products do you use: cigarettes Do you use any of these nicotine containing products: None How often do you have a drink containing alcohol: never AUDIT-C Alcohol total score: 0 Non-prescribed substance use: denies use Exam Narrative: Exam Narrative: Vital signs as noted above. In general, an alert, nontoxic elderly woman. Breathing easily. She is very thin. She smells strongly of cigarette smoke. Head: Normocephalic, atraumatic. Eyes: Pupils are equal reactive. Extraocular movements are full. Conjunctivae are normal. ENT: Mucous membranes are moist. Neck: Supple without lymphadenopathy. Heart: Regular rate and rhythm. No murmur or rub. Lungs: Scattered wheezes bilaterally. No increased work of breathing. Abdomen: Soft and nontender. No organomegaly. Extremities: Well perfused. No edema. No calf tenderness. Pulses intact. On the left, she has a normal-appearing fistula in the upper arm. There is no swelling, erythema, warmth, drainage or bleeding. Neurologic: Patient is alert and oriented to person and place. Speech is fluent. Face is symmetric. Moves all extremities equally. Affect: Normal. Skin: Warm and dry. Well perfused. Const: Vital Signs, click to edit/add: Vital Signs - 24 hr 12/03/23 19:38 Temperature 98.0 F Pulse Rate [Right Pulse Oximeter] 60 Respiratory Rate 20 Blood Pressure [Ri ght Upper Arm] 176/101 H Pulse Oximetry 99 Oxygen Delivery Me thod Room Air Course Course ED Course: She does tell me that she has a history of COPD is on a couple of different inhalers and uses those regularly. She says it is pretty normal for her to be wheezy, and she does not feel like she has any more short of breath right now than usual. With regard to her fistula, this appears to be in good condition, they have been dialyzing without difficulty, there is no evidence of infection, DVT, or aneurysm. With regard her chest pain, this seems to be related to coughing which has been going on for several months now. I will do an x-ray to make sure that there are no abnormalities such as infiltrate, significant pulmonary edema, pneumothorax, pleural effusion. Radiology read as followsPatient: MALACHI MARR Facility[facility] Site . Site : [id number] Study: XRay-Chest 2V-12/03/2023 8:01:52 PM Ordering Physician: Carlton Kimbrough Final Report: INDICATION: Cough, chest pain. TECHNIQUE: Chest radiographs, 2 views. COMPARISON: CTA chest 11/28/2022. Chest radiographs 11/24/2022. FINDINGS: Cardiovascular/Mediastinum: Normal heart size. Atherosclerotic calcifications of the aortic arch. Lungs: Persistent hazy ill-defined opacification of the right lower lung zone medially, increased in prominence on the lateral projection. Linear bandlike opacification of the lungs bilaterally, likely subsegmental atelectasis and/or scarring. Airways: Trachea remains midline. Pleura: No pleural effusions or pneumothorax. Bones: No acute osseous abnormalities. Upper abdomen: Unremarkable. IMPRESSION: Persistent hazy opacification of the right lower lung zone, increased in conspicuity since prior radiographs. This may represent scarring or a developing pneumonia in the appropriate clinical setting. Dictated by Nuno Boogie MD @ 12/03/2023 8:40:12 PM I have discussed this with the patient. She actually has a bus here to pick her up and is eager to get going. She has had this cough for quite some time, unclear to me whether this infiltrate could represent a pneumonia, she does feel like the cough is kind of a little bit worse. She is nontoxic, her vital signs are reassuring. She is hypertensive but O2 sats are 99% she is not tachycardic or febrile. Her arm have reassured her looks normal and I do not have any specific concerns there. Her chest pain does not sound cardiac and I do not think she needs further evaluation as far as that goes. Given that she has reproducible pain with palpation and pain with coughing this is more likely to be chest wall related. She would like to try an antibiotic to see if the cough improves so I will prescribe every other day Levaquin for her. Primary care follow-up if not improving, return at any time for worsening. Vital Signs Vital signs: Initial Vital Signs Temperature 98.0 F 12/03/23 19:38 Temperature Source Temporal Artery Scan 12/03/23 19:38 Pulse Rate 60 12/03/23 19:38 Respiratory Rate 20 12/03/23 19:38 Blood Pressure 176/101 H 12/03/23 19:38 Blood Pressure Mean 126 H 12/03/23 19:38 Blood Pressure Position Sitting 12/03/23 19:38 Pulse Oximetry 99 12/03/23 19:38 Oxygen Delivery Method Room Air 12/03/23 19:38 Vital Signs Temperature 98.0 F 12/03/23 19:38 Pulse Rate 60 12/03/23 19:38 Respiratory Rate 20 12/03/23 19:38 Blood Pressure 176/101 H 12/03/23 19:38 Pulse Oximetry 99 12/03/23 19:38 Oxygen Delivery Method Room Air 12/03/23 19:38 Temperature 98.0 F 12/03/23 19:38 Pulse Rate 60 12/03/23 19:38 Respiratory Rate 20 12/03/23 19:38 Blood Pressure 176/101 H 12/03/23 19:38 Pulse Oximetry 99 12/03/23 19:38 Oxygen Delivery Method Room Air 12/03/23 19:38 Discharge Plan Discharge Clinical Impression: Cough Patient Disposition: Home, Self-Care Condition: Stable Instructions: Community Acquired Pneumonia (ED) Additional Instructions: Antibiotic as prescribed. Please see your primary doctor if not improving over the next few days. Use your inhalers as prescribed. Return any time for acute worsening. Prescriptions: New levofloxacin 500 mg tablet 500 mg PO .QOD 10 Days Qty: 5 0RF No Action furosemide 40 mg tablet 40 mg PO QAM sennosides [senna] 8.6 mg tablet 8.6 - 34.4 mg PO DAILY PRN clonidine HCl 0.1 mg tablet 0.1 mg PO DIRECTED Rx Instructions: TAKE 2 TABLETS BY MOUTH IN THE MORNING, AND TAKE 3 TABLETS BY MOUTH AT BEDTIME albuterol sulfate 2.5 mg /3 mL (0.083 %) solution for nebulization 2.5 mg Q4H PRN (Reason: dyspnea) glipizide 10 mg tablet extended release 24hr 10 mg PO DAILY Rx Instructions: take 2 tablets by mouth daily amlodipine 10 mg tablet 10 mg PO BID labetalol 300 mg tablet 300 mg PO 3XD sorbitol 70 % solution 30 ml PO DAILY PRN (Reason: constipation) repaglinide 1 mg tablet 1 mg PO 3XD oxycodone 5 mg tablet 5 mg PO BID PRN aspirin 81 mg capsule 81 mg PO DAILY albuterol sulfate 90 mcg/actuation HFA aerosol inhaler 2 puff inhalation BID calcium acetate(phosphat bind) 667 mg capsule 1,334 mg PO 3XD Bion Tears (PF) 0.1-0.3 % dropperette 1 drp ophthalmic (eye) DIRECTED ipratropium-albuterol 0.5 mg-3 mg(2.5 mg base)/3 mL solution for nebulization 3 ml INHALATION Q6H PRN (Reason: dyspnea) spironolactone 25 mg tablet 25 mg PO DAILY nifedipine 90 mg tablet extended release 24hr 90 mg PO DAILY pantoprazole 40 mg tablet,delayed release (DR/EC) 40 mg PO BID Incruse Ellipta 62.5 mcg/actuation blister with device 1 inh INHALATION DAILY Follow Up/Referrals: Tyrell Schneider MD [Primary Care Provider] - Stand Alone Forms: [facility] Info Instructions
--- OUTSIDE RECORDS SUMMARY | 2023-12-03 20:13 | XMS_ITS | Clinical Summary ---
Author Organization [facility] Address [address] [place] [address] Care Team Providers Care Dietary Cook Name Role Phone Tyrell Schneider Primary Care Provider [phone] Allergies Active Allergy Reactions Criticality Noted Date [...] Shortness Of Breath High 04/06/2004 Dog Epithelium (Canis Lupus Familiaris) Itching 04/15/2018 Sneezing Sneezing Dulaglutide Nausea and [...] 01/09/2010 itching Niacin Rash,Itching Low 05/13/2006 itch [place] Rash Low 05/16/2010 Oxycodone Nausea and [...] Take 81 mg by mouth every evening Active albuterol (PROVENTIL) (2.5 MG/3ML) 0.083% neb solution Take 2.5 mg by nebulization every 4 hours as needed for shortness of breath 09/10/2022 Active amLODIPine (NORVASC) 10 MG tablet Take 10 mg by mouth 2 times daily 11/14/2022 Active cloNIDine (CATAPRES) 0.1 MG tablet Take 0.2 mg by mouth every morning 06/14/2021 Active erythromycin (ROMYCIN) 5 MG/GM ophthalmic ointment Place Into the left eye 4 times daily 09/25/2022 Active neomycin-polymyxin- dexAMETHasone (MAXITROL) 3.5-27824-0.[address] 0.25 inches Into the left eye 4 times daily 09/24/2022 Active oxyCODONE (ROXICODONE) 5 MG tablet Take 10 mg by mouth at bedtime 04/17/2021 Active repaglinide (PRANDIN) 1 MG tablet Take 1 tablet by mouth 3 times daily (before meals) 12/13/2020 Active senna (SENOKOT) 8.6 MG tablet Take 1 tablet by mouth every 3 days 10/13/2022 Active sorbitol 70 % SOLN solution Take 30 mLs by mouth every 3 days 01/09/2022 Active triamcinolone (KENALOG) 0.1 % external cream Apply topically daily as needed for irritation 01/24/2021 Active glipiZIDE (GLUCOTROL XL) 10 MG 24 hr tablet Take 20 mg by mouth every morning 11/14/2022 Active ipratropium - albuterol 0.5 mg/2.5 mg/3 mL (DUONEB) 0.5-2.5 (3) MG/3ML neb solution Inhale 3 mLs into the lungs every 6 hours as needed for shortness of breath 12/13/2020 Active labetalol (NORMODYNE) 300 MG tablet Take 600 mg by mouth 2 times daily 03/01/2022 Active polyethylene glycol (MIRALAX) 17 g packet Take 1 packet by mouth every 3 days Active cetirizine (ZYRTEC) 10 MG tablet Take 10 mg by mouth every evening Active furosemide (LASIX) 40 MG tablet Take 40 mg by mouth daily Active carboxymethylcellul ose PF (REFRESH PLUS) 0.5 % ophthalmic solution Place 1 drop into both eyes 2 times daily Active pantoprazole (PROTONIX) 40 MG EC tabletIndications:A nemia, unspecified type Take 1 tablet (40 mg) by mouth 2 times daily (before meals) 60 tablet 12/17/2022 Active umeclidinium (INCRUSE ELLIPTA) 62.5 MCG/ACT inhalerIndications: Chronic obstructive pulmonary disease, unspecified COPD type (H) Inhale 1 puff into the lungs daily 7 each 12/18/2022 Active nicotine (NICODERM CQ) 21 MG/24HR [address] 1 patch onto the skin every 24 hours Active multivitamin RENAL (RENAVITE RX/NEPHROVITE) 1 tablet tablet Take 1 tablet by mouth daily Active cloNIDine (CATAPRES) 0.1 MG tablet Take 0.3 mg by mouth every evening Active senna-docusate (SENOKOT-S/PERICOLA CE) 8.6-50 MG tabletIndications:C onstipation, unspecified constipation type Take 1 tablet by mouth daily as needed for constipation 02/21/2023 Active Active Problems Problem Noted Date Diagnosed [...] Comments Blood Pressure 166/77 02/21/2023 3:58 PM SCHOOL ADMINISTRATOR Pulse 64 02/21/2023 3:58 PM SCHOOL ADMINISTRATOR Temperature 36.9 ??C (98.4 ??F) 02/21/2023 3:58 PM CS T Respiratory Rate 18 02/21/2023 3:58 PM SCHOOL ADMINISTRATOR Oxygen Saturation 99% 02/21/2023 3:58 PM SCHOOL ADMINISTRATOR Inhaled Oxygen Concentration - - Weight 40.8 kg (90 lb) 02/20/2023 8:47 PM SCHOOL ADMINISTRATOR Height 154.9 cm (5' 1) 12/13/2022 3:15 AM CDT Body Mass Index 17.01 12/13/2022 3:15 AM CDT Plan of Treatment Health Maintenance Due Date Last Done Comments ADVANCE CARE PLANNING 1945 ANNUAL REVIEW OF HM ORDERS 1947 COPD ACTION PLAN 1947 DEXA 1947 LIPID 1947 PARATHYROID 1947 SPIROMETRY 1947 HEPATITIS C SCREENING 08/30/1965 HEPATITIS B IMMUNIZATION (3 of 5 - Risk Dialysis 4-dose series) 11/01/2000 10/04/2000, 04/11/2000 ZOSTER IMMUNIZATION (2 of 3) 07/10/2012 05/15/2012 FALL RISK ASSESSMENT 08/30/2012 MEDICARE ANNUAL WELLNESS VISIT 08/30/2012 DTAP/TDAP/TD IMMUNIZATION (2 - Td or Tdap) 05/30/2020 05/30/2010, 02/12/2000 RSV VACCINE (1 - 1-dose 75+ series) 08/30/2022 PHQ-2 (once per calendar year) 2023 BMP 05/23/2023 02/21/2023, 02/11, 02/19/2023, Additional history exists HEMOGLOBIN 08/22/2023 02/21/2023, 02/11, 02/19/2023, Additional history exists COVID-19 Vaccine ( season) 2023 12/25/2022, 10/25/2021, 05/17/2021, Additional history exists INFLUENZA VACCINE (#1) 2023 3, 10/25/2021, 10/28/2020, Additional history exists GLUCOSE 02/21/2026 02/21/2023, 02/11, 02/21/2023, Additional history exists MAMMO SCREENING Discontinued 01/01/2019 Pneumococcal Vaccine: 65+ Years Completed 04/10/2022, 06/22/2014, 12/31/2012, Additional history exists COLORECTAL CANCER SCREENING Discontinued FIT Discontinued 12/12/2022 PHOSPHORUS Completed 12/18/2022, 07/2022, 12/16/2022, Additional history exists ALK PHOS Completed 02/20/2023, 10/2023, 12/12/2022, Additional history exists COLONOSCOPY Discontinued CT COLONOGRAPHY Discontinued FLEX SIG Discontinued HPV IMMUNIZATION Aged Out No longer e ligible based on patient's age to complete this topic MENINGITIS IMMUNIZATION Aged Out No l onger eligible based on patient's age to complete this topic RSV MONOCLONAL ANTIBODY Aged Out No l onger eligible based on patient's age to complete this topic sDNA (Cologuard) Discontinued Procedures Procedure Name Priority Date/Time Associated Diagnosis Comments CBC WITH PLATELETS Routine 02/21/2023 8: 16 AM SCHOOL ADMINISTRATOR BASIC METABOLIC PANEL Routine 02/21/2023 8:16 AM SCHOOL ADMINISTRATOR GLUCOSE BY METER Routine 02/21/2023 1:08 AM SCHOOL ADMINISTRATOR COMPREHENSIVE METABOLIC PANEL STAT 02/20/2023 8:52 AM SCHOOL ADMINISTRATOR RENAL PANEL Routine 12/18/2022 8:45 AM SCHOOL ADMINISTRATOR OCCULT BLOOD STOOL STAT 12/12/2022 11 :03 PM CDT from Last 3 Months or Most Recently Relevant to Health Maintenance Results * (ABNORMAL) Basic metabolic panel (02/21/2023 8:16 AM SCHOOL ADMINISTRATOR) Sodium 134(L) 135 - 145 mmol/L 02/21/2023 8:55 AM SCHOOL ADMINISTRATOR [facility] Comment:Reference intervals for this test were updated on 11/06/2022 to more accurately reflect our healthy population. There may be differences in the flagging of prior results with similar values performed with this method. Interpretation of those prior results can be made in the context of the updated reference intervals. Potassium 4.0 3.4 - 5.3 mmol/L 02/21/2023 8:55 AM SCHOOL ADMINISTRATOR LABORATORY Chloride 97(L) 98 - 107 mmol/L 02/21/2023 8:55 AM [facility] Carbon Dioxide (CO2) 28 22 - 29 mmol/L 02/21/2023 8:55 AM [facility] Anion Gap 9 7 - 15 mmol/L 02/21/2023 8:55 AM [facility] Urea Nitrogen 12.8 8.0 - 23.0 mg/dL 02/21/2023 8:55 AM [facility] Creatinine 2.49(H) 0.51 - 0.95 mg/dL 02/21/2023 8:55 AM [facility] GFR Estimate 20(L) >60 mL/min/1. 73m2 02/21/2023 8:55 AM [facility] Calcium 8.6(L) 8.8 - 10.2 mg/dL 02/21/2023 8:55 AM [facility] Glucose 144(H) 70 - 99 mg/dL 02/21/2023 8:55 AM [facility] Blood STRUCTURE OF RIGHT HAND / Unknown Venipuncture / Unknown 02/21/2023 8:16 AM SCHOOL ADMINISTRATOR 02/21/2023 8:34 AM SCHOOL ADMINISTRATOR Nidia Yanez DO LAB - BLOOD ORDER [facility] [address] [facility] ([facility], no room number) [place] [address], [facility] [phone] * (ABNORMAL) CBC with platelets (02/21/2023 8:16 AM SCHOOL ADMINISTRATOR) WBC Count 6.6 4.0 - 11.0 10e3/uL 02/21/2023 8:39 AM SCHOOL ADMINISTRATOR LABORATORY RBC Count 4.43 3.80 - 5.20 10e6/uL 02/21/2023 8:39 AM SCHOOL ADMINISTRATOR [facility] Hemoglobin 12.3 11.7 - 15.7 g/dL 02/21/2023 8:39 AM SCHOOL ADMINISTRATOR [facility] Hematocrit 39.2 35.0 - 47.0 % 02/21/2023 8:39 AM SCHOOL ADMINISTRATOR [facility] MCV 89 78 - 100 fL 02/21/2023 8:39 AM SCHOOL ADMINISTRATOR [facility] MCH 27.8 26.5 - 33.0 pg 02/21/2023 8:39 AM SCHOOL ADMINISTRATOR [facility] MCHC 31.4(L) 31.5 - 36.5 g/dL 02/21/2023 8:39 AM SCHOOL ADMINISTRATOR [facility] RDW 19.3(H) 10.0 - 15.0 % 02/21/2023 8:39 AM SCHOOL ADMINISTRATOR [facility] Platelet Count 292 150 - 450 10e3/uL 02/21/2023 8:39 AM SCHOOL ADMINISTRATOR [facility] Blood STRUCTURE OF RIGHT HAND / Unknown Venipuncture / Unknown 02/21/2023 8:16 AM SCHOOL ADMINISTRATOR 02/21/2023 8:34 AM SCHOOL ADMINISTRATOR Nidia Yanez DO LAB - BLOOD ORDER [facility] [address] Lab (1st floor, no room number) [place] [address], [facility] [phone] * (ABNORMAL) Glucose by meter (02/21/2023 1:08 AM SCHOOL ADMINISTRATOR) [facility] GLUCOSE BY METER POCT 131(H) 70 - 99 mg/dL 02/21/2023 1:17 AM SCHOOL ADMINISTRATOR LABORATORY POC Blood, Capillary BLOOD SPECIMEN / Unknown 02/21/2023 1:08 AM SCHOOL ADMINISTRATOR 02/21/2023 1:17 AM SCHOOL ADMINISTRATOR Joseph Jeffers MD LAB - BEAKER POCT LABORATORY POC [facility] [address] [employer] Lab (1st floor, no room number) [place] [address], [place] [phone] * (ABNORMAL) Comprehensive metabolic panel (02/20/2023 8:52 AM SCHOOL ADMINISTRATOR) Sodium 135 135 - 145 mmol/L 02/20/2023 9:27 AM [facility] Comment:Reference intervals for this test were updated on 11/06/2022 to more accurately reflect our healthy population. There may be differences in the flagging of prior results with similar values performed with this method. Interpretation of those prior results can be made in the context of the updated reference intervals. Potassium 4.2 3.4 - 5.3 mmol/L 02/20/2023 9:27 AM [facility] Carbon Dioxide (CO2) 25 22 - 29 mmol/L 02/20/2023 9:27 AM [facility] Anion Gap 12 7 - 15 mmol/L 02/20/2023 9:27 AM [facility] Urea Nitrogen 34.5(H) 8.0 - 23.0 mg/dL 02/20/2023 9:27 AM [facility] Creatinine 3.81(H) 0.51 - 0.95 mg/dL 02/20/2023 9:27 AM [facility] GFR Estimate 12(L) >60 mL/min/1. 73m2 02/20/2023 9:27 AM [facility] Calcium 8.7(L) 8.8 - 10.2 mg/dL 02/20/2023 9:27 AM [facility] Chloride 98 98 - 107 mmol/L 02/20/2023 9:27 AM [facility] Glucose 112(H) 70 - 99 mg/dL 02/20/2023 9:27 AM [facility] Alkaline Phosphatase 122 40 - 150 U/L 02/20/2023 9:27 AM [facility] Comment:Reference intervals for this test were updated on 12/25/2022 to more accurately reflect our healthy population. There may be differences in the flagging of prior results with similar values performed with this method. Interpretation of those prior results can be made in the context of the updated reference intervals. AST 18 0 - 45 U/L 02/20/2023 9:27 AM [facility] Comment:Reference intervals for this test were updated on 07/23/2022 to more accurately reflect our healthy population. There may be differences in the flagging of prior results with similar values performed with this method. Interpretation of those prior results can be made in the context of the updated reference intervals. ALT 5 0 - 50 U/L 02/20/2023 9:27 AM SCHOOL ADMINISTRATOR LAB[facility]ATORY Comment:Reference intervals for this test were updated on 07/23/2022 to more accurately reflect our healthy population. There may be differences in the flagging of prior results with similar values performed with this method. Interpretation of those prior results can be made in the context of the updated reference intervals. Protein Total 6.3(L) 6.4 - 8.3 g/dL 02/20/2023 9:27 AM SCHOOL ADMINISTRATOR LABORATORY Albumin 3.2(L) 3.5 - 5.2 g/dL 02/20/2023 9:27 AM SCHOOL ADMINISTRATOR LABORATORY Bilirubin Total 0.2 <=1.2 mg/dL 02/20/2023 9:27 AM SCHOOL ADMINISTRATOR LAB[facility]ATORY Blood STRUCTURE OF LEFT UPPER LIMB / Unknown Venipuncture / Unknown 02/20/2023 8:52 AM SCHOOL ADMINISTRATOR 02/20/2023 8:59 AM SCHOOL ADMINISTRATOR Kai Khan DO LAB - BLOOD ORDERA BLES LABORATORY [facility] [address] [facility] Lab (1st floor, no room number) [place] [address] [phone] * (ABNORMAL) Renal panel (12/18/2022 8:45 AM SCHOOL ADMINISTRATOR) Sodium 135 135 - 145 mmol/L 12/18/2022 9:44 AM SCHOOL ADMINISTRATOR LAB[facility]ATORY Comment:Reference intervals for this test were updated on 11/06/2022 to more accurately reflect our healthy population. There may be differences in the flagging of prior results with similar values performed with this method. Interpretation of those prior results can be made in the context of the updated reference intervals. Potassium 4.2 3.4 - 5.3 mmol/L 12/18/2022 9:44 AM SCHOOL ADMINISTRATOR LABORATORY Chloride 99 98 - 107 mmol/L 12/18/2022 9:44 AM SCHOOL ADMINISTRATOR LAB[facility]ATORY Carbon Dioxide (CO2) 29 22 - 29 mmol/L 12/18/2022 9:44 AM SCHOOL ADMINISTRATOR LABORATORY Anion Gap 7 7 - 15 mmol/L 12/18/2022 9:44 AM [facility] Glucose 128(H) 70 - 99 mg/dL 12/18/2022 9:44 AM [facility] Urea Nitrogen 17.7 8.0 - 23.0 mg/dL 12/18/2022 9:44 AM [facility] Creatinine 2.67(H) 0.51 - 0.95 mg/dL 12/18/2022 9:44 AM [facility] GFR Estimate 18(L) >60 mL/min/1. 73m2 12/18/2022 9:44 AM [facility] Calcium 7.6(L) 8.8 - 10.2 mg/dL 12/18/2022 9:44 AM [facility] Albumin 2.6(L) 3.5 - 5.2 g/dL 12/18/2022 9:44 AM [facility] Phosphorus 2.3(L) 2.5 - 4.5 mg/dL 12/18/2022 9:44 AM SCHOOL ADMINISTRATOR LABORATORY Blood STRUCTURE OF RIGHT UPPER LIMB / Unknown Venipuncture / Unknown 12/18/2022 8:45 AM SCHOOL ADMINISTRATOR 12/18/2022 8:50 AM SCHOOL ADMINISTRATOR David Treviño MD LAB - BLOOD ORDERABL ES [facility] [address] Lab (1st floor, no room number) [place] [address], [facility] [phone] * Stool: occult blood (12/12/2022 11:03 PM CDT) Occult Blood Negative Negative [facility] 12/12/2022 11:32 PM CDT LABORATORY Stool RECTAL CONTENTS / Unknown Non-blood Collection / Unknown 12/12/2022 11:03 PM CDT 12/12/2022 11:11 PM CDT Jason Tapia MD LAB - STOOLS OR DERABLES [facility] [address] Lab (1st floor, no room number) [place] [address] [phone] from Last 3 Months or Most Recently Relevant to Health Maintenance Advance Directives For more information, please contact: [phone] * Full Code (Latest Code Status on File) Date Activated Date Inactivated Comments 02/19/2023 11:10 PM 02/21/2023 7:12 PM All basic an d advanced life-sustaining interventions are performed as appropriate Question Answer Comments Code status determined by: Discussion with patie nt/ legal decision maker * Full Code Date Activated Date Inactivated Comments 12/13/2022 1:55 AM 12/18/2022 4:34 PM All basic an d advanced life-sustaining interventions are performed as appropriate Question Answer Comments Code status determined by: Discussion with patie nt/ legal decision maker * Full Code Date Activated Date Inactivated Comments 11/29/2022 12:25 AM 12/06/2022 4:48 PM All basic and advanced life-sustaining interventions are performed as appropriate Question Answer Comments Code status determined by: Discussion with patie nt/ legal decision maker * Full Code Date Activated Date Inactivated Comments 11/24/2022 9:35 PM 11/26/2022 7:04 PM All basic and advanced life-sustaining interventions are performed as appropriate Question Answer Comments Code status determined by: Discussion with patie nt/ legal decision maker Care Teams Dietary Cook Relationship Specialty Start Date End Date Tyrell Schneider [address] [place] [address] PCP - General Family Medicine 02/19/23
--- OUTSIDE RECORDS SUMMARY | 2023-12-03 20:14 | XMS_ITS | Encounter Summary ---
Author Organization [facility] Address [address] [place] [address] Care Team Providers Care Barrel Rifler Name Role Phone Tyrell Schneider MD Primary Care Provider [phone] Encounter Details Date Type Department Care Team (Late st Contact Info) Description 11/27/2023 Orders Only [facility] [address] [place] [address] Gabriel Mena MD [address] [place] [address] Social History Tobacco Use Types Packs/Day Years Used Date Smoking Tobacco: Never Assessed Comments Unknown Sex and Gender Information Value Date Recorded Sex Assigned at Not on file Legal Sex Female 7:04 PM EDT Gender Identity Not on file Sexual Orientation Not on file documented as of this encounter Plan of Treatment Not on file documented as of this encounter Procedures Procedure Name Priority Date/Time Associated Diagnosis Comments HEMATOLOGY Routine 11/27/2023 documented in this encounter Results * (ABNORMAL) HEMATOLOGY (11/27/2023) Hemoglobin 10.9(L) 12.0 - 16.0 g/dL [facility] Hemoglobin x 3 32.7(L) 36.0 - 48.0 % [facility] 11/27/2023 11/28/2023 10: 18 AM CDT Narrative [facility] - 11/28/2023 Unless otherwise specified, test(s) performed at: [facility], [address] [place] [address] COKE OVEN PATCHER: Eze Park M.D., Ph.D For any questions, please call customer service at FREQUENCY:OTHER Resulting Agency Comment Specimen source: Blood us Gabriel Mena MD LAB BLOOD ORDERABLES Final Re sult [facility] See order comments or contact performing lab Unknown, [place] documented in this encounter Visit Diagnoses Not on filedocumented in this encounter Care Teams Barrel Rifler Relationship Specialty Start Date End Date Tryell Schneider MD [address] [place] [address] PCP - General 10/27/18 documented as of this encounter
--- OUTSIDE RECORDS SUMMARY | 2023-12-03 20:14 | XMS_ITS | Referral Summary ---
Author Organization [facility] Address [address] [place] [address] Care Team Providers Care Application Helper Name Role Phone Tyrell Schneider Primary Care Provider [phone] Allergies Active Allergy Reactions Criticality Noted Date [...] 01/09/2010 itching Niacin Rash,Itching Low 05/13/2006 itch [place] Rash Low 05/16/2010 Oxycodone Nausea and [...] times daily 09/25/2022 Active neomycin-polymyxin- dexAMETHasone (MAXITROL) 3.5-01019-3.[address] 0.25 inches Into the [...] Comments Blood Pressure 166/77 02/21/2023 3:58 PM [facility] Pulse 64 02/21/2023 3:58 PM [facility] Temperature 36.9 ??C (98.4 ??F) 02/21/2023 3:58 PM CS T Respiratory Rate 18 02/21/2023 3:58 PM [facility] Oxygen Saturation 99% 02/21/2023 3:58 PM [facility] Inhaled Oxygen Concentration - - Weight 40.8 kg (90 lb) 02/20/2023 8:47 PM [facility] Height 154.9 cm (5' 1) 12/13/2022 3:15 AM CDT Body Mass Index 17.01 12/13/2022 3:15 AM CDT Plan of Treatment Not on file Procedures Procedure Name Priority Date/Time Associated Diagnosis Comments CBC WITH PLATELETS Routine 02/21/2023 8: 16 AM [facility] BASIC METABOLIC PANEL Routine 02/21/2023 8:16 AM [facility] GLUCOSE BY METER Routine 02/21/2023 1:08 AM [facility] COMPREHENSIVE METABOLIC PANEL STAT 02/20/2023 8:52 AM [facility] RENAL PANEL Routine 12/18/2022 8:45 AM [facility] OCCULT BLOOD STOOL STAT 12/12/2022 11 :03 PM CDT from Last 3 Months or Most Recently Relevant to Health Maintenance Results * (ABNORMAL) Basic metabolic panel (02/21/2023 8:16 AM [facility]) Sodium 134(L) 135 - 145 mmol/L 02/21/2023 8:55 AM [facility] Comment:Reference intervals for this test were updated on 11/06/2022 to more accurately reflect our healthy population. There may be differences in the flagging of prior results with similar values performed with this method. Interpretation of those prior results can be made in the context of the updated reference intervals. Potassium 4.0 3.4 - 5.3 mmol/L 02/21/2023 8:55 AM [facility] Chloride 97(L) 98 - 107 mmol/L 02/21/2023 8:55 AM [facility] Carbon Dioxide (CO2) 28 22 - 29 mmol/L 02/21/2023 8:55 AM [facility] Anion Gap 9 7 - 15 mmol/L 02/21/2023 8:55 AM [facility] Urea Nitrogen 12.8 8.0 - 23.0 mg/dL 02/21/2023 8:55 AM [facility] Creatinine 2.49(H) 0.51 - 0.95 mg/dL 02/21/2023 8:55 AM [facility] GFR Estimate 20(L) >60 mL/min/1. 73m2 02/21/2023 8:55 AM [facility] Calcium 8.6(L) 8.8 - 10.2 mg/dL 02/21/2023 8:55 AM [facility] Glucose 144(H) 70 - 99 mg/dL 02/21/2023 8:55 AM [facility] Blood STRUCTURE OF RIGHT HAND / Unknown Venipuncture / Unknown 02/21/2023 8:16 AM [facility] 02/21/2023 8:34 AM [facility] Nidia Yanez DO LAB - BLOOD ORDER [facility] [address] [facility] Lab (1st floor, no room number) [place] [address] [phone] * (ABNORMAL) CBC with platelets (02/21/2023 8:16 AM [facility]) WBC Count 6.6 4.0 - 11.0 10e3/uL 02/21/2023 8:39 AM [facility] RBC Count 4.43 3.80 - 5.20 10e6/uL 02/21/2023 8:39 AM [facility] Hemoglobin 12.3 11.7 - 15.7 g/dL 02/21/2023 8:39 AM [facility] Hematocrit 39.2 35.0 - 47.0 % 02/21/2023 8:39 AM [facility] MCV 89 78 - 100 fL 02/21/2023 8:39 AM [facility] MCH 27.8 26.5 - 33.0 pg 02/21/2023 8:39 AM [facility] MCHC 31.4(L) 31.5 - 36.5 g/dL 02/21/2023 8:39 AM [facility] RDW 19.3(H) 10.0 - 15.0 % 02/21/2023 8:39 AM [facility] Platelet Count 292 150 - 450 10e3/uL 02/21/2023 8:39 AM [facility] Blood STRUCTURE OF RIGHT HAND / Unknown Venipuncture / Unknown 02/21/2023 8:16 AM [facility] 02/21/2023 8:34 AM [facility] Nidia Yanez DO LAB - BLOOD ORDER [facility] [address] Lab (1st floor, no room number) [place] [phone], [facility] [phone] * (ABNORMAL) Glucose by meter (02/21/2023 1:08 AM [facility]) GLUCOSE BY METER POCT 131(H) 70 - 99 mg/dL 02/21/2023 1:17 AM [facility] POC Blood, Capillary BLOOD SPECIMEN / Unknown 02/21/2023 1:08 AM [facility] 02/21/2023 1:17 AM [facility] Joseph Jeffers MD LAB - BEAKER POCT LAB[facility] POC [facility] [address] Lab (1st floor, no room number) [place] [address], [facility] [phone] * (ABNORMAL) Comprehensive metabolic panel (02/20/2023 8:52 AM [facility]) Sodium 135 135 - 145 mmol/L 02/20/2023 9:27 AM [facility] Comment:Reference intervals for this test were updated on 11/06/2022 to more accurately reflect our healthy population. There may be differences in the flagging of prior results with similar values performed with this method. Interpretation of those prior results can be made in the context of the updated reference intervals. Potassium 4.2 3.4 - 5.3 mmol/L 02/20/2023 9:27 AM [facility] Carbon Dioxide (CO2) 25 22 - 29 mmol/L 02/20/2023 9:27 AM [facility] Anion Gap 12 7 - 15 mmol/L 02/20/2023 9:27 AM [facility] Urea Nitrogen 34.5(H) 8.0 - 23.0 mg/dL 02/20/2023 9:27 AM [facility] Creatinine 3.81(H) 0.51 - 0.95 mg/dL 02/20/2023 9:27 AM [facility] GFR Estimate 12(L) >60 mL/min/1. 73m2 02/20/2023 9:27 AM [facility] Calcium 8.7(L) 8.8 - 10.2 mg/dL 02/20/2023 9:27 AM [facility] Chloride 98 98 - 107 mmol/L 02/20/2023 9:27 AM [facility] Glucose 112(H) 70 - 99 mg/dL 02/20/2023 9:27 AM [facility] Alkaline Phosphatase 122 40 - 150 U/L 02/20/2023 9:27 AM [facility] Comment:Reference intervals for this test were updated on 12/25/2022 to more accurately reflect our healthy population. There may be differences in the flagging of prior results with similar values performed with this method. Interpretation of those prior results can be made in the context of the updated reference intervals. AST 18 0 - 45 U/L 02/20/2023 9:27 AM [facility] Comment:Reference intervals for this test were updated on 07/23/2022 to more accurately reflect our healthy population. There may be differences in the flagging of prior results with similar values performed with this method. Interpretation of those prior results can be made in the context of the updated reference intervals. ALT 5 0 - 50 U/L 02/20/2023 9:27 AM [facility] Comment:Reference intervals for this test were updated on 07/23/2022 to more accurately reflect our healthy population. There may be differences in the flagging of prior results with similar values performed with this method. Interpretation of those prior results can be made in the context of the updated reference intervals. Protein Total 6.3(L) 6.4 - 8.3 g/dL 02/20/2023 9:27 AM [facility] Albumin 3.2(L) 3.5 - 5.2 g/dL 02/20/2023 9:27 AM [facility] Bilirubin Total 0.2 <=1.2 mg/dL 02/20/2023 9:27 AM [facility] Blood STRUCTURE OF LEFT UPPER LIMB / Unknown Venipuncture / Unknown 02/20/2023 8:52 AM [facility] 02/20/2023 8:59 AM [facility] Kai Khan DO LAB - BLOOD [facility] Lab [address] [facility] Lab (1st floor, no room number) [place] [address] [phone] * (ABNORMAL) Renal panel (12/18/2022 8:45 AM [facility]) Sodium 135 135 - 145 mmol/L 12/18/2022 9:44 AM [facility] Comment:Reference intervals for this test were updated on 11/06/2022 to more accurately reflect our healthy population. There may be differences in the flagging of prior results with similar values performed with this method. Interpretation of those prior results can be made in the context of the updated reference intervals. Potassium 4.2 3.4 - 5.3 mmol/L 12/18/2022 9:44 AM [facility] Chloride 99 98 - 107 mmol/L 12/18/2022 9:44 AM [facility] Carbon Dioxide (CO2) 29 22 - 29 mmol/L 12/18/2022 9:44 AM [facility] Anion Gap 7 7 - 15 mmol/L 12/18/2022 9:44 AM [facility] Glucose 128(H) 70 - 99 mg/dL 12/18/2022 9:44 AM [facility] Urea Nitrogen 17.7 8.0 - 23.0 mg/dL 12/18/2022 9:44 AM [facility] Creatinine 2.67(H) 0.51 - 0.95 mg/dL 12/18/2022 9:44 AM [facility] GFR Estimate 18(L) >60 mL/min/1. 73m2 12/18/2022 9:44 AM [facility] Calcium 7.6(L) 8.8 - 10.2 mg/dL 12/18/2022 9:44 AM [facility] Albumin 2.6(L) 3.5 - 5.2 g/dL 12/18/2022 9:44 AM [facility] Phosphorus 2.3(L) 2.5 - 4.5 mg/dL 12/18/2022 9:44 AM [facility] Blood STRUCTURE OF RIGHT UPPER LIMB / Unknown Venipuncture / Unknown 12/18/2022 8:45 AM [facility] 12/18/2022 8:50 AM [facility] David Treviño MD LAB - BLOOD ORDERABL ES [facility] [address] Lab (1st floor, no room number) [place] [address], [facility] [phone] * Stool: occult blood (12/12/2022 11:03 PM CDT) Pathologist [facility] Occult Blood Negative Negative JENNIFER 12/12/2022 11:32 PM CDT LABORATORY Stool RECTAL CONTENTS / Unknown Non-blood Collection / Unknown 12/12/2022 11:03 PM CDT 12/12/2022 11:11 PM CDT Jason Tapia MD LAB - STOOLS OR DERABLES [facility] Lab [address] Lab (1st floor, no room number) [place] [address], [facility] [phone] from Last 3 Months or Most Recently Relevant to Health Maintenance Advance Directives For more information, please contact: [phone] * Full Code (Latest Code Status on [...] patie nt/ legal decision maker Care Teams Application Helper Relationship Specialty Start Date End Date Tyrell Schneider [address] [place] [address] PCP - General Family Medicine 02/19/23
--- OUTSIDE RECORDS SUMMARY | 2023-12-03 20:14 | XMS_ITS ---
Author Name Toni, Clinic Address [address] [place] [address] Phone [phone] Organization [facility] e, NA DOCUMENT DISCLAIMER Multiple document versions may exist, please be sure you review the latest version. The information in the [facility] Continuity of Care Document represents a summary of certain health and medical information. It may not contain the complete medical history for the patient and should be independently verified. The represented time in the document is Eastern Time. PROBLEMS Problem Code Status Onset Date Unspecified abdominal pain R10.9 Active J anuary 2023 Other secondary hypertension I15.8 Active February 01, [...] 2018 Encounter for immunization Z23 Active M shanthi 2018 End stage renal disease N18.6 Active Alfonzo h 2018 Secondary hyperparathyroidis m, not elsewhere classified [...] 14, 2024 Active Mircera During Dialysis, Every 4 weeks 75 mcg Intravenous - push December 02, 2023 November 30, 2024 Active Mircera During Dialysis, Every 2 weeks 50 mcg Intravenous - push October 28, 2023 October 26, 2024 Discontinued Vitamin D (Calcitriol) Oral During Dialysis, 3X Week 0.5 mcg Oral March 25, 2023 March 20, 2024 Discontinued Home Medications Medication Instructions Dosage Route Start Date End Date Stat albuterol sulfate 2.5 mg/3 mL (0.083 %) Take as directed every four hours as needed 1 vial INHALATION April 21, 2018 Active Shania Low Dose Aspirin 81 mg Take by mouth once a day 1 tablet ORAL March 06, 2023 Active calcitriol 0.5 mcg by mouth once a day 1 capsule ORAL November 20, 2023 Active calcium acetate(phosphat bind) 667 mg Take by mouth three times a day with meals 2 capsule ORAL October 28, 2023 Active clonidine HCl 0.1 mg Take by mouth every morning 2 tablet ORAL May 24, 2023 Active furosemide 40 mg Take by mouth once a day as directed 1 tablet ORAL February 17, 2020 Active glipizide 10 mg Take by mouth once a day 2 tablet ORAL April 21, 2018 Active labetalol 300 mg Take by mouth three times a day 2 tablet ORAL January 18, [...] 1 tablet ORAL February 13, 2023 Active oxycodone 5 mg Take by mouth twice a day as needed for pain 1 tablet ORAL February 15, 2023 Active pantoprazole 40 mg by mouth twice a day one hour before meals 1 tablet ORAL December 19, 2022 Active Procardia XL 90 mg Take by mouth once a day 1 tablet ORAL August 07, 2023 Active repaglinide 1 mg Take by mouth three times a day with meals 3 tablet ORAL December 14, 2020 Active Senna Lax 8.6 mg Take by mouth once a day 2 tablet ORAL April 21, 2018 Active sorbitol 70% Take by mouth once a day as needed 30 ml by mouth April 20, 2020 Active spironolactone 25 mg Take by mouth once a day 1 tablet ORAL September 27, 2023 Active triamcinolone acetonide 0.1% Apply to skin twice a day as needed TOPICAL April 21, 2018 Active VITAL SIGNS Post-Treatment Vital Signs Vital Sign Value Date / Time Blood Pressure-sitting 168/67 mmHg November 122023 10:50 AM Blood Pressure-standing 161/61 mmHg December 02, 2023 10:50 AM Heart Rate 60 beats per minute December 02, 2023 10:50 AM Respiratory Rate 18 breaths per minute November 122023 10:50 AM Temperature 97.7 deg. F December 02, 2023 10:50 AM Weight Vital Sign Value Date / Time Estimated Dry Weight 39 kg November 25, 2023 11:59 PM Pre-Dialysis 41.10 kg December 02, 2023 10:50 AM Post-Dialysis 39.20 kg December 02, 2023 10:50 AM Other Other Value Date / Time Height 152.4 cm February 14, 2022 12:00 AM Body Mass Index 17.10 kg/m2 November 18, 2023 04:49 PM LAB RESULTS Hematology Result Type Result Value Relevant Referen ce Range Interpretation Date Neutrophils 80.8 % 40.0 - 75.0 % High June 11 WBC (No Diff) 7.89 1000/mcL 4.80 - 10.80 1000/mcL - June 12, 2023 TIBC 243 mcg/dL 185 - 515 mcg/dL - June 12, 2023 Transferrin Sat. (Calc) 38 % 20 - 55 % - June 12, 2023 UIBC (Calc) 151 mcg/dL 155 - 355 mcg/dL Low June 12, 2023 Ferritin 1394 ng/mL 10 - 291 ng/mL High June 11 WBC (No Diff) 9.23 1000/mcL 4.80 - 10.80 1000/mcL - July 17, 2023 Neutrophils 81.7 % 40.0 - 75.0 % High July 16, 2 024 Transferrin Sat. (Calc) 20 % 20 - 55 % - July 17, 2023 TIBC 233 mcg/dL 185 - 515 mcg/dL - July 17, 2023 UIBC (Calc) 186 mcg/dL 155 - 355 mcg/dL - July Neutrophils 81.3 % 40.0 - 75.0 % High August 13, 2 024 TIBC 230 mcg/dL 185 - 515 mcg/dL - August 14, 2023 UIBC (Calc) 185 mcg/dL 155 - 355 mcg/dL - August Transferrin Sat. (Calc) 20 % 20 - 55 % - August 14, 2023 WBC (No Diff) 7.98 1000/mcL 4.80 - 10.80 1000/mcL - August 14, 2023 Hemoglobin x 3 28.5 % 36.0 - 48.0 % Low August Hemoglobin x 3 29.4 % 36.0 - 48.0 % Low August Iron 46 mcg/dL 30 - 160 mcg/dL - September TIBC 243 mcg/dL 185 - 515 mcg/dL - September UIBC (Calc) 197 mcg/dL 155 - 355 mcg/dL - September 18, 2023 Transferrin Sat. (Calc) 19 % 20 - 55 % Low September 18, 2023 Ferritin 942 ng/mL 10 - 291 ng/mL High September 18, 2023 Hemoglobin x 3 29.1 % 36.0 - 48.0 % Low September 18, 2023 MCH 27.1 pg 27.0 - 31.0 pg - September 18, 2023 RDW 20.3 % 11.5 - 14.5 % High September 18, 2023 MCHC 29.1 g/dL 30.0 - 36.0 g/dL Low September WBC (No Diff) 8.56 1000/mcL 4.80 - 10.80 1000/mcL - September 18, 2023 Eosinophil 3.8 % 0.0 - 7.0 % - September 17 Monocytes 5.0 % 3.0 - 10.0 % - September 17, 2 024 JUANITO 1.6 % 0.0 - 4.0 % - September 17 24 Basophils 0.4 % 0.0 - 1.5 % - September 17 Lymphocytes 6.2 % 19.0 - 48.0 % Low September 18, 2023 Neutrophils 82.8 % 40.0 - 75.0 % High September 18, 2023 Hemoglobin x 3 29.1 % 36.0 - 48.0 % Low September 25, 2023 Hemoglobin x 3 30.0 % 36.0 - 48.0 % Low October 02, 2023 Hemoglobin x 3 30.9 % 36.0 - 48.0 % Low October 09, 2023 Transferrin Sat. (Calc) 27 % 20 - 55 % - October 15 Neutrophils 82.0 % 40.0 - 75.0 % High October 16, 2023 MCH 27.0 pg 27.0 - 31.0 pg - October 16, 2023 Eosinophil 3.9 % 0.0 - 7.0 % - October 16, 2023 Monocytes 5.8 % 3.0 - 10.0 % - October Lymphocytes 6.0 % 19.0 - 48.0 % Low October 16, 2023 WBC (No Diff) 7.69 1000/mcL 4.80 - 10.80 1000/mcL - October 16, 2023 JUANITO 1.7 % 0.0 - 4.0 % - October 16, 2023 Basophils 0.6 % 0.0 - 1.5 % - October 16, 2023 Hemoglobin x 3 31.5 % 36.0 - 48.0 % Low 2023 TIBC 226 mcg/dL 185 - 515 mcg/dL - e 2023 RDW 20.4 % 11.5 - 14.5 % High October MCHC 28.3 g/dL 30.0 - 36.0 g/dL Low e r 2023 UIBC (Calc) 166 mcg/dL 155 - 355 mcg/dL - 2023 Iron 60 mcg/dL 30 - 160 mcg/dL - October 16, 2023 Hemoglobin x 3 32.4 % 36.0 - 48.0 % Low Sept er 2023 Hemoglobin x 3 34.8 % 36.0 - 48.0 % Low Septemb er 2023 Hemoglobin x 3 35.1 % 36.0 - 48.0 % Low Septemb er 2023 HGB 11.7 g/dL 12.0 - 16.0 g/dL Low Septembe r 2023 Monocytes 4.8 % 3.0 - 10.0 % - November 13, 2023 Lymphocytes 5.9 % 19.0 - 48.0 % Low November Neutrophils 81.7 % 40.0 - 75.0 % High November Hemoglobin x 3 35.7 % 36.0 - 48.0 % Low November 13, 2023 HGB 11.9 g/dL 12.0 - 16.0 g/dL Low November 13, 2023 RDW 20.8 % 11.5 - 14.5 % High November 13, 2023 MCHC 30.3 g/dL 30.0 - 36.0 g/dL - November 13, 2023 MCH 28.2 pg 27.0 - 31.0 pg - November HCT 39.3 % 37.0 - 47.0 % - November 13, 2023 RBC 4.23 mill/mcL 4.20 - 5.40 mill/mcL - November 13, 2023 WBC (No Diff) 8.91 1000/mcL 4.80 - 10.80 1000/mcL - November 13, 2023 JUANITO 1.9 % 0.0 - 4.0 % - November 12, 024 Basophils 0.7 % 0.0 - 1.5 % - November 12 024 Eosinophil 5.1 % 0.0 - 7.0 % - November 12 024 Iron 83 mcg/dL 30 - 160 mcg/dL - November UIBC (Calc) 156 mcg/dL 155 - 355 mcg/dL - November 13, 2023 TIBC 239 mcg/dL 185 - 515 mcg/dL - November 13, 2023 Transferrin Sat. (Calc) 35 % 20 - 55 % - November 13, 2023 Hemoglobin x 3 36.6 % 36.0 - 48.0 % - November 20, 2023 HGB 12.2 g/dL 12.0 - 16.0 g/dL - November 20, 2023 Hemoglobin x 3 32.7 % 36.0 - 48.0 % Low November 27, 2023 HGB 10.9 g/dL 12.0 - 16.0 g/dL Low November 27, 2023 Metabolic/Renal Result Type Result Value Relevant Referen ce Range Interpretation Date Vitamin B12 712 pg/mL 211 - 911 pg/mL - December 12, 2022 URR, Calc 78 % 65 - 80 % - September 17 BUN, Post 10 mg/dL 6 - 19 mg/dL - September 17 BUN 46 mg/dL 6 - 19 mg/dL High September 17 BUN/Creat Ratio 8.6 10.0 - 20.0 Low September Creatinine, Serum 5.37 mg/dL 0.60 - 1.30 mg/dL High September 18, 2023 Potassium 5.6 mEq/L 3.5 - 5.1 mEq/L High September Sodium 136 mEq/L 136 - 145 mEq/L - September Bicarbonate 22 mEq/L 20 - 31 mEq/L - September 18, 2023 Chloride 106 mEq/L 96 - 108 mEq/L - September 18, 2023 Chloride 105 mEq/L 96 - 108 mEq/L - October 16, 2023 Potassium 6.6 mEq/L 3.5 - 5.1 mEq/L High October 16, 2023 Creatinine, Serum 7.76 mg/dL 0.60 - 1.30 mg/dL High October 16, 2023 BUN 73 mg/dL 6 - 19 mg/dL High October Sodium 134 mEq/L 136 - 145 mEq/L Low October 16, 2023 BUN/Creat Ratio 9.4 10.0 - 20.0 Low 2023 Bicarbonate 19 mEq/L 20 - 31 mEq/L Low October 16, 2023 URR, Calc 77 % 65 - 80 % - October 16, 2023 BUN, Post 17 mg/dL 6 - 19 mg/dL - October Potassium 5.1 mEq/L 3.5 - 5.1 mEq/L - October 23, 2023 BUN 67 mg/dL 6 - 19 mg/dL High November 13, 2023 Creatinine, Serum 6.01 mg/dL 0.60 - 1.30 mg/dL High November 13, 2023 BUN/Creat Ratio 11.1 10.0 - 20.0 - November 13, 2023 Sodium 138 mEq/L 136 - 145 mEq/L - November Potassium 5.6 mEq/L 3.5 - 5.1 mEq/L High November Chloride 107 mEq/L 96 - 108 mEq/L - November Bicarbonate 23 mEq/L 20 - 31 mEq/L - November URR, Calc 81 % 65 - 80 % High November 12 BUN, Post 13 mg/dL 6 - 19 mg/dL - November 13, 2023 HD Adequacy Result Type Result Value Relevant Referen ce Range Interpretation Date Krt/V 0.00 No Reference Ran ge Provided - June 12, 2023 Krt/V 0.00 No Reference Ran ge Provided - July 17, 2023 Krt/V 0.00 No Reference Ran ge Provided - August 14, 2023 wstdKt/V 2.6 No Reference Ran ge Provided - September 18, 2023 spKt/V Gotch 1.78 No Reference Ran ge Provided - September 18, 2023 spKt/V (Daugirdas II) 1.78 No Reference Range Provided - September 18, 2023 eKt/V ([place]) 1.47 No Reference Range Provided - September 18, 2023 wstdKt/V, residual 0.0 No Reference Range Provided - September 18, 2023 Krt/V 0.00 No Reference Ran ge Provided - September 18, 2023 wstdKt/V without residual 2.6 No Reference Range Provided - September 18, 2023 wstdKt/V without residual 1.7 No Reference Range Provided - October 16, 2023 eKt/V ([place]) 1.49 No Reference Range Provided - October 16, 2023 Krt/V 0.00 No Reference Ran ge Provided - October 16, 2023 wstdKt/V 1.7 No Reference Ran ge Provided - October 16, 2023 spKt/V Gotch 1.81 No Reference Ran ge Provided - October 16, 2023 spKt/V (Daugirdas II) 1.80 No Reference Range Provided - October 16, 2023 wstdKt/V, residual 0.0 No Reference Range Provided - October 16, 2023 spKt/V (Daugirdas II) 1.90 No Reference Range Provided - November 13, 2023 wstdKt/V 2.6 No Reference Ran ge Provided - November 13, 2023 Krt/V 0.00 No Reference Ran ge Provided - November 13, 2023 eKt/V ([place]) 1.57 No Reference Range Provided - November 13, 2023 spKt/V Gotch 1.91 No Reference Ran ge Provided - November 13, 2023 wstdKt/V, residual 0.0 No Reference Range Provided - November 13, 2023 wstdKt/V without residual 2.6 No Reference Range Provided - November 13, 2023 Bone/Mineral Result Type Result Value Relevant Referen ce Range Interpretation Date Magnesium 2.0 mg/dL 1.6 - 2.6 mg/dL - December 12, 2022 Vitamin D 25 Hydroxy 21.3 ng/mL 30.0 - 100.0 ng/mL Low December 12, 2022 Magnesium 2.1 mg/dL 1.6 - 2.6 mg/dL - March 22, 2023 PTH-Intact, Plasma 335 pg/mL 16 - 80 pg/mL High June 12, 2023 Magnesium 2.0 mg/dL 1.6 - 2.6 mg/dL - June 11, Ca x P Product 42 0 - 54 - September 18, 2023 Phosphorus 4.8 mg/dL 2.6 - 4.5 mg/dL High September Alkaline Phosphatase 107 U/L 35 - 104 U/L High 2023 Corrected Ca x P Product 45 0 - 54 - September 18, 2023 Magnesium 2.0 mg/dL 1.6 - 2.6 mg/dL - September PTH-Intact, Plasma 323 pg/mL 16 - 80 pg/mL High Sep Calcium, Total 8.8 mg/dL 8.7 - 10.4 mg/dL - 2023 Phosphorus 5.9 mg/dL 2.6 - 4.5 mg/dL High October 16, 2023 Calcium, Total 8.4 mg/dL 8.7 - 10.4 mg/dL Low Oct Ca x P Product 50 0 - 54 - October 16, 2023 Corrected Ca x P Product 53 0 - 54 - October 15, 20 24 Calcium, Total 9.1 mg/dL 8.7 - 10.4 mg/dL - 2023 Phosphorus 4.5 mg/dL 2.6 - 4.5 mg/dL - November Ca x P Product 41 0 - 54 - November Corrected Ca x P Product 43 0 - 54 - November 13, 2023 Liver/Nutrition Result Type Result Value Relevant Reference Range Interpre tation Date Albumin (BCG) 3.4 g/dL 3.5 - 5.2 g/dL Low September 18, 2023 eNPCR 0.82 No Reference Ran ge Provided - September 18, 2023 eNPCR 1.19 No Reference Ran ge Provided - October 16, 2023 Albumin (BCG) 3.4 g/dL 3.5 - 5.2 g/dL Low Septemb 2023 eNPCR 1.15 No Reference Ran ge Provided - November 13, 2023 Albumin (BCG) 3.5 g/dL 3.5 - 5.2 g/dL - November 13, 2023 Immunochemistry Result Type Result Value Relevant Reference Range Interpre tation Date HCV s/co ratio 0.03 0.00 - 0.79 - December 12, 2022 Trace Elements Result Type Result Value Relevant Reference Range Interpre tation Date Aluminum 7 mcg/L 0 - 10 mcg/L - December 12, 2022 Infectious Diseases Result Type Result Value Relevant Referen ce Range Interpretation Date HCV Ab (anti-HCV) Nonreactive No Reference R blanca Provided - December 12, 2022 Hep B Surface Ab (anti-HBs) 11 mIU/mL No Reference Range Provided - December 12, 2022 DIALYSIS PRESCRIPTION Conventional Hemodialysis Data Element Value Order Date/Time November 25, 2023 Frequency 3X Week Treatment Days MonWedFri Dialyzer [id number] Optiflux Treatment Time (Total Minutes) 165 min Blood Flow Rate (mL/min) 450 mL/min Dialysate Flow Rate Autoflow 1.5 Estimated Dry Weight 39 kg Dialysate Concentrate 2.0 K, 2.5 Ca, 1.0 Mg, 100 Dextrose (G2251) Sodium (mEq/L) 137 mEq/L Bicarb Machine Setting (mEq/L) 27 mEq/L Dialysis Access Hemodialysis-AV Fist doc-Standard, Left Upper Arm, Brachial Artery to Cephalic Vein Access Placed on March 31, 2018 Arterial Needle Size 15g1 Venous Needle Size 15g1 IMMUNIZATIONS Vaccine Date Dose Route Status Moderna COVID-19 Vaccine, Do se 2 of April 04, 2020 0.5 mL Intramuscular Completed Moderna COVID-19 Vaccine, Do se 1 of March 11, 2020 0.5 mL Intramuscular Completed TRANSPLANT WAITLIST STATUS No Information on Transplant Waitlist Status ADVANCE DIRECTIVES Directive Description Ordered By Effective Date Resuscitation status Full Code Gabriel Mena Feb 20, 2023 DIALYSIS TREATMENTS Conventional Hemodialysis Date Pre-Treatment Vitals Post-Treatment Jocelyn ls Duration (hr) BFR (mL/min) Dialysate Dialyzer Dialysis Access Meds Admin Octob 2023 Weight 39.80 kg Weight 38.50 kg 02:42:00 450 2.0 K, 2.5 Ca, 1.0 Mg, 100 Dextrose (G2251) 160nre Optifl ux Blood Pressure-sitting 202/71 mmHg Blood Pressure-sit ting 190/79 mmHg Blood Pressure-standing 170/57 mmHg Blood Pressure-st anding 166/64 mmHg Heart Rate 57 beats per minute Heart Rate 63 beats per minute Respiratory Rate 16 breaths per minute Respiratory Rate 16 breaths per minute Temperature 97.3 deg. F Temperature 97.8 deg. F November 29, 2023 Weight 40.40 kg Weight 38.70 kg 02:42:00 340 2.0 K, 2.5 Ca, 1.0 Mg, 100 Dextrose (G2251) 160nre Optiflux Hemodialysis-AV Fistula-Standard, Left Upper Arm, Brachial Artery to Cephalic Vein Access Placed on March 31, 2018 Heparin Sodium (Porcine) 1,000 Units/mL Systemic; 2000units,Intravenous - push Blood Pressure-sitting 193/55 mmHg Blood Pressure-sit ting 167/73 mmHg Blood Pressure-standing 186/88 mmHg Blood Pressure-st anding 154/64 mmHg Heart Rate 56 beats per minute Heart Rate 59 beats per minute Respiratory Rate 16 breaths per minute Respiratory Rate 16 breaths per minute Temperature 97.2 deg. F Temperature 97.1 deg. F December 02, 2023 Weight 41.10 kg Weight 39.20 kg 02:48:00 410 2.0 K, 2.5 Ca, 1.0 Mg, 100 Dextrose (G2251) 160nre Optiflux Hemodialysis-AV Fistula-Standard, Left Upper Arm, Brachial Artery to Cephalic Vein Access Placed on March 31, 2018 Heparin Sodium (Porcine) 1,000 Units/mL Systemic; 2000units,Intravenous - push Mircera; 75mcg,Intravenous - push Blood Pressure-sitting 175/68 mmHg Blood Pressure-sit ting 168/67 mmHg Blood Pressure-standing 182/64 mmHg Blood Pressure-st anding 161/61 mmHg Heart Rate 58 beats per minute Heart Rate 60 beats per minute Respiratory Rate 18 breaths per minute Respiratory Rate 18 breaths per minute Temperature 98.3 deg. F Temperature 97.7 deg. F
--- OUTSIDE RECORDS SUMMARY | 2023-12-03 20:14 | XMS_ITS | Clinical Summary ---
Author Organization [facility] Facility Address [address] [facility] [address] [place] [address] Care Team Providers Care Lace Mender Name Role Phone Tyrell Schneider MD Primary Care Provider [phone] Active Problems Problem Noted Date Diagnosed Date End stage renal disease 10/22/2023 Dependence on renal dialysis 10/22/2023 Encounters Date Type Department Care Team Description 11/27/2023 Orders Only [facility] [place] [address] [place] [address] Gabriel Mena MD 11/20/2023 Orders Only [facility] [place] [address] [place] [address] Gabriel Mena MD 11/13/2023 Orders Only [facility] [place] [address] [place] [address] Gabriel Mena MD 11/10/2023 Refill [facility] [address] [facility] [address] [place] [address] Gabriel Mena MD 11/08/2023 Treatment [facility] [place] [address] [place] [address] Gillian Rosa, USED CAR MANAGER-MULTIGRAPH OPERATOR 11/08/2023 Orders Only [facility] [place] [address] [place] [phone] Gabriel Mena MD 10/30/2023 Orders Only [facility] [place] [address] [place] [facility] [place] [address] Gabriel Mena MD 10/28/2023 Treatment [facility] [place] [address] [place] [address] Gabriel Mena MD 10/23/2023 Orders Only [facility] [place] [address] [place] [facility] [place] [address] Gabriel Mena MD 10/16/2023 Orders Only [facility] [place] [address] [place] [facility] [place] [address] Gabriel Mena MD 10/09/2023 Orders Only [facility] [place] [address] [place] [facility] [place] [address] Gabriel Mena MD 10/09/2023 Treatment [facility] [place] [facility] [address] [place] [address] Gillian Rosa, USED CAR MANAGER-MULTIGRAPH OPERATOR 10/02/2023 Orders Only [facility] [place] [address] [place] [facility] [place] [address] Gabriel Mena MD 09/27/2023 Treatment [facility] [address] [place] [address] Gabriel Mena MD 09/26/2023 Refill [facility] [place] [address] [place] [facility] [place] [address] Gabriel Mena MD 09/25/2023 Orders Only [facility] [place] [address] [place] [facility] [place] [address] Gabriel Mnea MD 09/18/2023 Orders Only [facility] [place] [address] [place] [facility] [place] [address] Gabriel Mena MD 09/11/2023 Orders Only [facility] [address] [place] [facility] [place] [address] Gabriel Mena MD 09/11/2023 Treatment [facility] [address] [place] [address] Gabriel Mena MD 09/04/2023 Orders Only [facility] [place] [address] [place] [facility] [place] [address] Gabriel Mena MD 09/02/2023 Treatment [facility] [address] [place] [address] Gillian Rosa, USED CAR MANAGER-MULTIGRAPH OPERATOR from Last 3 Months Social History Tobacco [...] Health Maintenance Due Date Last Done Comments Pneumococcal Vaccine: 65+ Years (1 of 2 - PCV) 954 Hepatitis B Vaccine (1 of 5 - Risk Dialysis 4-dose series) 1965 Diabetes: Hemoglobin A1C 03/15/2021 Diabetes: Ophthalmology Exam 03/15/2021 Diabetes: Pedal Pulse Checked 03/15/2021 Diabetes: Sensory Foot Exam 03/15/2021 Diabetes: Visual Foot Exam 03/15/2021 Influenza Vaccine (#1) 2023 Procedures Procedure Name Priority Date/Time Associated Diagnosis Comments HEMATOLOGY Routine 11/27/2023 HEMATOLOGY Routine 11/20/2023 [facility] RESULTS Routine 11/13/2023 HD KINETICS Routine 11/13/2023 POST CHEMISTRY Routine 11/13/2023 CHEMISTRY Routine 11/13/2023 HEMATOLOGY Routine 11/13/2023 HEMATOLOGY Routine 11/08/2023 HEMATOLOGY Routine 10/30/2023 CHEMISTRY Routine 10/23/2023 HEMATOLOGY Routine 10/23/2023 [facility] RESULTS Routine 10/16/2023 HD KINETICS Routine 10/16/2023 POST CHEMISTRY Routine 10/16/2023 HEMATOLOGY Routine 10/16/2023 CHEMISTRY Routine 10/16/2023 HEMATOLOGY Routine 10/09/2023 HEMATOLOGY Routine 10/02/2023 HEMATOLOGY Routine 09/25/2023 [facility] RESULTS Routine 09/18/2023 CHEMISTRY Routine 09/18/2023 HD KINETICS Routine 09/18/2023 POST CHEMISTRY Routine 09/18/2023 CHEMISTRY Routine 09/18/2023 HEMATOLOGY Routine 09/18/2023 HEMATOLOGY Routine 09/11/2023 HEMATOLOGY Routine 09/04/2023 from Last 3 Months Results * (ABNORMAL) HEMATOLOGY (11/27/2023) Only the most recent of13 resultswithin the time period is included. Hemoglobin 10.9(L) 12.0 - 16.0 g/dL [facility] Hemoglobin x 3 32.7(L) 36.0 - 48.0 % [facility] 11/27/2023 11/28/2023 10: 18 AM CDT Narrative [facility] - 11/28/2023 Unless otherwise specified, test(s) performed at: [facility], [address] [place] [address], [place] [address] [address] ROLLER OPERATOR: Eze Park M.D., Ph.D For any questions, please call customer service at FREQUENCY:OTHER Resulting Agency Comment Specimen source: Blood Gabriel Mean MD LAB BLOOD ORDERABLES Final Re sult Performing Organization Address City/[facility] [address]/ZIP Co de Phone Number [facility] See order comments or contact performing lab Unknown, [place] * (ABNORMAL) HD KINETICS (11/13/2023) Only the most recent of3 resultswithin the time period is included. Pathologist [facility] % Urea Reduction 81(H) 65 - 80 % [facility] 11/13/2023 11/14/2023 6:0 0 PM CDT Narrative Resulting Agency Comment Specimen source: Plasma Gabriel Mena MD LAB BLOOD ORDERABLES Final Re sult [facility] See order comments or contact performing lab Unknown, [place] * POST CHEMISTRY (11/13/2023) Only the most recent of3 resultswithin the time period is included. BUN Post Dialysis 13 6 - 19 mg/dL [facility] 11/13/2023 11/14/2023 6:0 0 PM CDT Narrative [facility] - 11/14/2023 Unless otherwise specified, test(s) performed at: [facility], [address] [place] [address], [place] [address] [address] ROLLER OPERATOR: Eze Park M.D., Ph.D For any questions, please call customer service at FREQUENCY:MONTHLY Resulting Agency Comment Specimen source: Plasma us Gabriel Mena MD LAB BLOOD ORDERABLES Final Re sult [facility] See order comments or contact performing lab Unknown, [place] * (ABNORMAL) [facility] Chemistry (11/13/2023) Only the most recent of5 resultswithin the time period is included. BUN 67(H) 6 - 19 mg/dL [facility] Creatinine 6.01(H) 0.60 - 1.30 mg/dL [facility] BUN/Creatinine Ratio 11.1 10.0 - 20.0 [facility] Sodium 138 136 - 145 mEq/L [facility] Potassium 5.6(H) 3.5 - 5.1 mEq/L [facility] Chloride 107 96 - 108 mEq/L [facility] Bicarbonate (CO2) 23 20 - 31 mEq/L [facility] Calcium 9.1 8.7 - 10.4 mg/dL [facility] Comment: Please note change in reference range. Corrected Calcium 9.5 8.7 - 10.4 mg/dL [facility] Comment: Corrected Calcium is not equivalent to measured Ionized Calcium. Phosphorus 4.5 2.6 - 4.5 mg/dL [facility] Calcium Phosphorus Product 41 0 - 54 [facility] Calcium Phosporus Product, Cor 43 0 - 54 [facility] Albumin 3.5 3.5 - 5.2 g/dL [facility] Iron 83 30 - 160 mcg/dL [facility] UIBC 156 155 - 355 mcg/dL [facility] TIBC 239 185 - 515 mcg/dL [facility] Iron Saturation (TSat) 35 20 - 55 % [facility] 11/13/2023 11/14/2023 6:5 5 PM CDT Narrative [facility] - 11/14/2023 Unless otherwise specified, test(s) performed at: [facility], [address] [place] [address], [place] [address] [address] ROLLER OPERATOR: Eze Park M.D., Ph.D For any questions, please call customer service at FREQUENCY:MONTHLY Resulting Agency Comment Specimen source: Serum us Gabriel Mena MD LAB BLOOD ORDERABLES Final Re sult [facility] See order comments or contact performing lab Unknown, [place] * [facility] Results (11/13/2023) Only the most recent of3 resultswithin the time period is included. eNPCR 1.15 [facility] spKt/V Gotch 1.[address] [facility] [place] [facility] spKt/V (Daugirdas II) 1.90 Knowledge Center nPCR_HD 1.26 [facility] Center PCR 48.14 [facility] eKt/V Gotch 1.[address] [facility] eKt/V (Tattersall) 1.57 Knowledge Center WSTDKT/V 2.6 [facility] Center eKdrt/V 1.53 [facility] 11/13/2023 11/13/2023 us Albino Ordering Provider LAB BLOOD ORDERABLES Final Result [facility] Contact Performing lab Unknown, [place] from Last 3 Months Insurance [facility] MEDICARE Care Teams Lace Mender Relationship Specialty Start Date End Date Tyrell Schneider MD [address] [place] [address] PCP - General 10/27/18
--- OUTSIDE RECORDS SUMMARY | 2023-12-03 20:15 | XMS_ITS | Encounter Summary ---
Author Organization [facility] Address [address] [place] [address] Care Team Providers Care Pcts Name Role Phone Tyrell Schneider MD Primary Care Provider [phone] Encounter Details Date Type Department Care Team (Late st Contact Info) Description 09/04/2023 Orders Only [facility] [place] [address] [place] [address] Gabriel Mena MD [address] [place] [address] Social History Tobacco Use Types [...] Priority Date/Time Associated Diagnosis Comments HEMATOLOGY Routine 09/04/2023 documented in this encounter Results * (ABNORMAL) HEMATOLOGY (09/04/2023) Hemoglobin 9.5(L) 12.0 - 16.0 g/dL [facility] Hemoglobin x 3 28.5(L) 36.0 - 48.0 % [facility] 09/04/2023 09/05/2023 3:5 3 AM CDT Narrative [facility] - 09/05/2023 Unless otherwise specified, test(s) performed at: [facility], [address] [facility], [place] [address] HOSE OPERATOR: Eze Park M.D., Ph.D For any questions, please call customer service at FREQUENCY:OTHER Resulting Agency Comment Specimen source: Blood us Gabriel Mena MD LAB BLOOD ORDERABLES Final Re sult [facility] See order comments or contact performing lab Unknown, [place] documented in this encounter Visit Diagnoses Not on filedocumented in this encounter Care Teams Pcts Relationship Specialty Start Date End Date Tyrell Schneider MD [address] [place] [address] PCP - General 10/27/18 documented as of this encounter
--- OUTSIDE RECORDS SUMMARY | 2023-12-03 20:15 | XMS_ITS | Encounter Summary ---
Author Organization [facility] Address [address] [place] [address] Care Team Providers Care Chemistry Lecturer Name Role Phone Tyrell Schneider MD Primary Care Provider [phone] Encounter Details Date Type Department Care Team (Late st Contact Info) Description 10/09/2023 Orders Only [facility] [place] [address] [place] [address] Gabriel Mena MD [address] [place] [address] Social History Tobacco Use Types [...] Priority Date/Time Associated Diagnosis Comments HEMATOLOGY Routine 10/09/2023 documented in this encounter Results * (ABNORMAL) HEMATOLOGY (10/09/2023) Hemoglobin 10.3(L) 12.0 - 16.0 g/dL [facility] Hemoglobin x 3 30.9(L) 36.0 - 48.0 % [facility] 10/09/2023 10/10/2023 9:0 3 AM CDT Narrative [facility] - 10/10/2023 Unless otherwise specified, test(s) performed at: [facility], [address] [facility], [place] [address] OPTIC FIBRE DRAWER: Eze Park M.D., Ph.D For any questions, please call customer service at FREQUENCY:OTHER Resulting Agency Comment Specimen source: Blood us Gabriel Mena MD LAB BLOOD ORDERABLES Final Re sult [facility] See order comments or contact performing lab Unknown, [place] documented in this encounter Visit Diagnoses Not on filedocumented in this encounter Care Teams Chemistry Lecturer Relationship Specialty Start Date End Date Tyrell Schneider MD [address] [place] [address] PCP - General 10/27/18 documented as of this encounter
--- OUTSIDE RECORDS SUMMARY | 2023-12-03 20:15 | XMS_ITS | Encounter Summary ---
Author Organization [facility] Address [address] [place] [address] Care Team Providers Care Lot Technician Name Role Phone Tyrell Schneider MD Primary Care Provider [phone] Encounter Details Date Type Department Care Team (Late st Contact Info) Description 09/25/2023 Orders Only [facility] [place] [address] [place] [address] Gabriel Mena MD [address] [place] [address] Social History Tobacco Use Types [...] Priority Date/Time Associated Diagnosis Comments HEMATOLOGY Routine 09/25/2023 documented in this encounter Results * (ABNORMAL) HEMATOLOGY (09/25/2023) Hemoglobin 9.7(L) 12.0 - 16.0 g/dL [email or web address] Hemoglobin x 3 29.1(L) 36.0 - 48.0 % [email or web address] 09/25/2023 09/26/2023 7:3 1 AM CDT Narrative [facility] - 09/26/2023 Unless otherwise specified, test(s) performed at: [facility], [address] [facility], [place] [address] FUR CLIPPER: Eze Park M.D., Ph.D For any questions, please call customer service at FREQUENCY:OTHER Resulting Agency Comment Specimen source: Blood us Gabriel Mena MD LAB BLOOD ORDERABLES Final Re sult [email or web address] See order comments or contact performing lab Unknown, [place] documented in this encounter Visit Diagnoses Not on filedocumented in this encounter Care Teams Lot Technician Relationship Specialty Start Date End Date Tyrell Schneider MD [address] [place] [address] PCP - General 10/27/18 documented as of this encounter
--- OUTSIDE RECORDS SUMMARY | 2023-12-03 20:15 | XMS_ITS | Encounter Summary ---
Author Organization [facility] Address [address] [facility] [address] [place] [address] Care Team Providers Care Power Tong Operator Name Role Phone Tyrell Schneider MD Primary Care Provider [phone] Encounter Details Date Type Department Care Team (Late st Contact Info) Description 10/16/2023 Orders Only [facility] [place] [address] [facility] [address] [place] [address] Gabriel Mena MD [address] [place] [address] Social History Tobacco Use Types [...] Date/Time Associated Diagnosis Comments HD KINETICS Routine 10/16/2023 POST CHEMISTRY Routine 10/16/2023 HEMATOLOGY Routine 10/16/2023 CHEMISTRY Routine 10/16/2023 [facility] RESULTS Routine 10/16/2023 documented in this encounter Results * [facility] Results (10/16/2023) eKt/V (Tattersall) 1.49 [facility] eNPCR 1.19 [facility] eKt/V Gotch 1.45 Knowledg e Center eKdrt/V 1.45 [facility] spKt/V Gotch 1.81 [facility] [place] WSTDKT/V 1.7 [facility] spKt/V (Daugirdas II) 1.80 [facility] nPCR_HD 1.32 [facility] PCR 50.00 [facility] 10/16/2023 10/16/2023 Lucero Ordering Provider LAB BLOOD ORDERABLES Final Result [facility] Contact Performing lab Unknown, [place] * HD KINETICS (10/16/2023) Pathologist [facility] % Urea Reduction 77 65 - 80 % [facility] 10/16/2023 10/18/2023 1:4 9 PM CDT Narrative Resulting Agency Comment Specimen source: Plasma Gabriel Mena MD LAB BLOOD ORDERABLES Final Re sult Performing Organization Address [facility] Co de Phone Number [employer] [facility] See order comments or contact performing lab Unknown, [place] * POST CHEMISTRY (10/16/2023) Pathologist [facility] BUN Post Dialysis 17 6 - 19 mg/dL [facility] 10/16/2023 10/18/2023 1:4 9 PM CDT Narrative [facility] - 10/18/2023 Unless otherwise specified, test(s) performed at: [facility], [address] [place] [address], [place] [address] TRACK REPAIR LABORER: Eze Park M.D., Ph.D For any questions, please call customer service at FREQUENCY:MONTHLY Resulting Agency Comment Specimen source: Plasma Gabriel Mena MD LAB BLOOD ORDERABLES Final Re sult [facility] See order comments or contact performing lab Unknown, [place] * (ABNORMAL) HEMATOLOGY (10/16/2023) Neutrophils 82.0(H) 40.0 - 75.0 % [facility] Lymphocytes Relative 6.0(L) 19.0 - 48.0 % [facility] Monocytes 5.8 3.0 - 10.0 % [facility] Eosinophils Relative 3.9 0.0 - 7.0 % [facility] Basophils Relative 0.6 0.0 - 1.5 % [facility] JUANITO 1.7 0.0 - 4.0 % [facility] WBC 7.69 4.80 - 10.80 1000/mcL [facility] RBC 3.90(L) 4.20 - 5.40 mill/mcL [facility] Hematocrit 37.2 37.0 - 47.0 % [facility] MCV 96 80 - 100 fl [facility] MCH 27.0 27.0 - 31.0 pg [facility] MCHC 28.3(L) 30.0 - 36.0 g/dL [facility] RDW 20.4(H) 11.5 - 14.5 % [facility] Hemoglobin 10.5(L) 12.0 - 16.0 g/dL [facility] Hemoglobin x 3 31.5(L) 36.0 - 48.0 % [facility] 10/16/2023 10/18/2023 3:2 4 PM CDT Narrative [facility] - 10/18/2023 Unless otherwise specified, test(s) performed at: [facility], [address] [place] [address], [place] [address] TRACK REPAIR LABORER: Eze Park M.D., Ph.D For any questions, please call customer service at FREQUENCY:MONTHLY Resulting Agency Comment Specimen source: Blood us Gabriel Mena MD LAB BLOOD ORDERABLES Final Re sult [facility] See order comments or contact performing lab Unknown, [place] * (ABNORMAL) [facility] (10/16/2023) BUN 73(H) 6 - 19 mg/dL [facility] Creatinine 7.76(H) 0.60 - 1.30 mg/dL [facility] BUN/Creatinine Ratio 9.4(L) 10.0 - 20.0 [facility] Sodium 134(L) 136 - 145 mEq/L [facility] Potassium 6.6(H) 3.5 - 5.1 mEq/L [facility] Comment: Verified by repeat analysis. Chloride 105 96 - 108 mEq/L [facility] Bicarbonate (CO2) 19(L) 20 - 31 mEq/L [facility] Calcium 8.4(L) 8.7 - 10.4 mg/dL [facility] Comment: Please note change in reference range. Corrected Calcium 8.9 8.7 - 10.4 mg/dL [facility] Comment: Corrected Calcium is not equivalent to measured Ionized Calcium. Phosphorus 5.9(H) 2.6 - 4.5 mg/dL [facility] Calcium Phosphorus Product 50 0 - 54 [facility] Calcium Phosporus Product, Cor 53 0 - 54 [facility] Albumin 3.4(L) 3.5 - 5.2 g/dL [facility] Iron 60 30 - 160 mcg/dL [facility] UIBC 166 155 - 355 mcg/dL [facility] TIBC 226 185 - 515 mcg/dL [facility] Iron Saturation (TSat) 27 20 - 55 % [facility] 10/16/2023 10/18/2023 2:4 9 PM CDT Narrative [facility] - 10/18/2023 Unless otherwise specified, test(s) performed at: [facility], [address] [place] [address], [place] [address] TRACK REPAIR LABORER: Eze Park M.D., Ph.D For any questions, please call customer service at FREQUENCY:MONTHLY Resulting Agency Comment Specimen source: Serum us Gabriel Mena MD LAB BLOOD ORDERABLES Final Re sult [facility] See order comments or contact performing lab Unknown, [place] documented in this encounter Visit Diagnoses Not on filedocumented in this encounter Care Teams Power Tong Operator Relationship Specialty Start Date End Date Tyrell Schneider MD [address] [place] [address] PCP - General 10/27/18 documented as of this encounter
--- OUTSIDE RECORDS SUMMARY | 2023-12-03 20:15 | XMS_ITS | Encounter Summary ---
Author Organization [facility] [place] Address [address] [facility] [address] [place] [address] Care Team Providers Care Wic Site Coordinator Name Role Phone Tyrell Schneider MD Primary Care Provider [phone] Encounter Details Date Type Department Care Team (Late st Contact Info) Description 09/18/2023 Orders Only [facility] [place] [address] [facility] [address] [place] [address] Gabriel Mena MD [address] [place] [address] Social History Tobacco Use Types [...] Date/Time Associated Diagnosis Comments HD KINETICS Routine 09/18/2023 POST CHEMISTRY Routine 09/18/2023 HEMATOLOGY Routine 09/18/2023 CHEMISTRY Routine 09/18/2023 CHEMISTRY Routine 09/18/2023 [facility] RESULTS Routine 09/18/2023 documented in this encounter Results * [facility] Results (09/18/2023) eKdrt/V 1.43 [facility] eKt/V ([place]) 1.47 [facility] WSTDKT/V 2.6 [facility] PCR 35.64 [facility] spKt/V (Daugirdas II) 1.78 [facility] eKt/V Gotch 1.43 [facility] sp[facility]t/V Gotch 1.78 [facility] [place] eNPCR 0.82 [facility] nPCR_HD 0.96 [facility] 09/18/2023 09/18/2023 [facility] Ordering Provider LAB BLOOD ORDERABLES Final Result Performing Organization Address City/[facility] Co de Phone Number [facility] Contact Performing lab Unknown, [place] * (ABNORMAL) [facility] (09/18/2023) PTH 323(H) 16 - 80 pg/mL [facility] 09/18/2023 09/20/2023 5:3 7 AM CDT Narrative [facility] - 09/20/2023 Unless otherwise specified, test(s) performed at: [facility], [address] [place] [address], [place] [address] HAT BRAIDER: Eze Park M.D., Ph.D For any questions, please call customer service at FREQUENCY:MONTHLY Resulting Agency Comment Specimen source: Plasma Gabriel Mena MD LAB BLOOD ORDERABLES Final Re sult Performing Organization Address City/[facility]/ZIP Co de Phone Number [facility] See order comments or contact performing lab Unknown, [place] * HD KINETICS (09/18/2023) Pathologist [facility] % Urea Reduction 78 65 - 80 % [facility] 09/18/2023 09/20/2023 4:5 5 AM CDT Narrative Resulting Agency Comment Specimen source: Plasma Gabriel Mena MD LAB BLOOD ORDERABLES Final Re sult Performing Organization Address City/[facility]/ZIP Co de Phone Number [facility] See order comments or contact performing lab Unknown, [place] * POST CHEMISTRY (09/18/2023) BUN Post Dialysis 10 6 - 19 mg/dL [facility] 09/18/2023 09/20/2023 4:5 5 AM CDT Narrative [facility] - 09/20/2023 Unless otherwise specified, test(s) performed at: [facility], [address] [place] [address], [place] [address] HAT BRAIDER: Eze Park M.D., Ph.D For any questions, please call customer service at FREQUENCY:MONTHLY Resulting Agency Comment Specimen source: Plasma us Gabriel Mena MD LAB BLOOD ORDERABLES Final Re sult [facility] See order comments or contact performing lab Unknown, [place] * (ABNORMAL) [facility] (09/18/2023) BUN 46(H) 6 - 19 mg/dL [facility] Creatinine 5.37(H) 0.60 - 1.30 mg/dL [facility] BUN/Creatinine Ratio 8.6(L) 10.0 - 20.0 [facility] Sodium 136 136 - 145 mEq/L [facility] Potassium 5.6(H) 3.5 - 5.1 mEq/L [facility] Chloride 106 96 - 108 mEq/L [facility] Bicarbonate (CO2) 22 20 - 31 mEq/L [facility] Calcium 8.8 8.7 - 10.4 mg/dL [facility] Comment: Please note change in reference range. Corrected Calcium 9.3 8.7 - 10.4 mg/dL [facility] Comment: Corrected Calcium is not equivalent to measured Ionized Calcium. Phosphorus 4.8(H) 2.6 - 4.5 mg/dL [facility] Calcium Phosphorus Product 42 0 - 54 [facility] Calcium Phosporus Product, Cor 45 0 - 54 [facility] Alkaline Phosphatase 107(H) 35 - 104 U/L [facility] Albumin 3.4(L) 3.5 - 5.2 g/dL [facility] Magnesium 2.0 1.6 - 2.6 mg/dL [facility] Ferritin 942(H) 10 - 291 ng/mL [facility] Iron 46 30 - 160 mcg/dL [facility] UIBC 197 155 - 355 mcg/dL [facility] TIBC 243 185 - 515 mcg/dL [facility] Iron Saturation (TSat) 19(L) 20 - 55 % [facility] 09/18/2023 09/20/2023 4:1 7 AM CDT Narrative [facility] - 09/20/2023 Unless otherwise specified, test(s) performed at: [facility], [address] [place] [address], [place] [address] HAT BRAIDER: Eze Park M.D., Ph.D For any questions, please call customer service at FREQUENCY:MONTHLY Resulting Agency Comment Specimen source: Serum us Gabriel Mena MD LAB BLOOD ORDERABLES Final Re sult [facility] See order comments or contact performing lab Unknown, [place] * (ABNORMAL) HEMATOLOGY (09/18/2023) Neutrophils 82.8(H) 40.0 - 75.0 % [facility] Lymphocytes Relative 6.2(L) 19.0 - 48.0 % [facility] Monocytes 5.0 3.0 - 10.0 % [facility] Eosinophils Relative 3.8 0.0 - 7.0 % [facility] Basophils Relative 0.4 0.0 - 1.5 % [facility] JUANITO 1.6 0.0 - 4.0 % [facility] WBC 8.56 4.80 - 10.80 1000/mcL [facility] RBC 3.59(L) 4.20 - 5.40 mill/mcL [facility] Hematocrit 33.5(L) 37.0 - 47.0 % [facility] MCV 93 80 - 100 fl [facility] MCH 27.1 27.0 - 31.0 pg [facility] MCHC 29.1(L) 30.0 - 36.0 g/dL [facility] RDW 20.3(H) 11.5 - 14.5 % [facility] Hemoglobin 9.7(L) 12.0 - 16.0 g/dL [facility] Hemoglobin x 3 29.1(L) 36.0 - 48.0 % [facility] 09/18/2023 09/20/2023 4:5 6 AM CDT Narrative [facility] - 09/20/2023 Unless otherwise specified, test(s) performed at: [facility], [address] [place] [address], [place] [address] HAT BRAIDER: Eze Park M.D., Ph.D For any questions, please call customer service at FREQUENCY:MONTHLY Resulting Agency Comment Specimen source: Blood us Gabriel Mena MD LAB BLOOD ORDERABLES Final Re sult [facility] See order comments or contact performing lab Unknown, [place] documented in this encounter Visit Diagnoses Not on filedocumented in this encounter Care Teams Wic Site Coordinator Relationship Specialty Start Date End Date Tyrell Schneider MD [address] [place] [address] PCP - General 10/27/18 documented as of this encounter
--- OUTSIDE RECORDS SUMMARY | 2023-12-03 20:15 | XMS_ITS | Encounter Summary ---
Author Organization [facility] [place] [place] Address [address] [place] [address] Care Team Providers Care Recruitment Director Name Role Phone Tyrell Schneider MD Primary Care Provider [phone] Encounter Details Date Type Department Care Team (Late st Contact Info) Description 09/27/2023 Treatment [facility] [place] [address] [place] [address] Gabriel Mena MD [address] [place] [address] Social History Tobacco Use Types Packs/Day Years Used Date Smoking Tobacco: Never Assessed Comments Unknown Sex and Gender Information Value Date Recorded Sex Assigned at Not on file Legal Sex Female 7:04 PM EDT Gender Identity Not on file Sexual Orientation Not on file documented as of this encounter Miscellaneous Notes * Dialysis Note - Gabriel Mena MD - 09/27/2023 3:07 PM CDT Date: Sep 27, 2023 Patient Name: Maricruz Vanegas : 1945 Chart #: [id number] Sex: F This patient was personally seen for a complete visit as part of routine monthly dialysis care. A review of the dialysis treatment, blood pressure, estimated dry weight and recent lab values was made. These were discussed with the patient and staff as necessary. Treatment Data for 09/27/2023 started at:10:53 AM Dialyzer: 160NRe Optiflux Na: 137 mEq/L Bicarb: 25 mEq/L Dialysate: 2.0 K, 2.5 Ca, 1.0 Mg, 100 Dextrose (G2251) Dialysate/Machine Temp (prescribed): 37 C Dialysate/Machine Temp (actual): 37.2 C BFR (prescribed): 450 BFR (actual): 450 Prescribed time: 02:45 EDW: 41.3 kg Access Type: Active (In Use):AVFistula-Standard/Left Upper Arm Pre Dialysis Vitals (for 09/27/2023 10:43 AM ) Pre BP (sit): 175/71 Pre Wt: 42.7 kg Temp: 96.6 F Post Dialysis Vitals (for 09/25/2023 1:33 PM ) Post BP (sit): 186/73 Post Wt: 41.1 kg Current Dialysis Vitals (for 09/27/2023 1:32 PM ) BP (sit): 173/61 AP(-) / ASBESTOS CLOTH INSPECTOR: 209/207 Pulse: 58 Chairside data as of 09/27/2023 1:32 PM Last 3 Treatments 09/25/2023 09/23/2023 09/20/2023 EDW (kg) 41.3 41.5 41.5 Weight Pre (kg) 43.5 43.1 42.5 Weight Post (kg) 41.1 41.3 41.5 Dialytic Weight Loss (kg) -2.4 -1.8 -1 EDW Deviation (kg) -0.2 -0.2 0.0 BP Sit Pre 183/64 182/62 180/73 BP Sit Post 186/73 173/66 175/70 UF Rate (mL/kg/hr) 21 16 9 Prescribed BFR 450 450 450 Average Delivered BFR 450 450 450 Prescribed Treatment Time 02:45 02:45 02:45 Actual Treatment Time 02:44 02:39 02:47 Last 3 Values 09/13/2023 08/16/2023 08/12/2023 Access Flow 385 838 390 Treatment Medication Orders Medication Sig Start Date End Date Heparin Sodium (Porcine) 1,000 Units/mL Systemic 2000 units IVP Every Treatment 02/15/2023 02/14/2024 Iron Sucrose (Venofer) 100 mg IVP 3X Week During Dialysis 09/25/2023 10/04/2023 Mircera 60 mcg IVP Every 2 weeks During Dialysis 09/18/2023 09/16/2024 Vitamin D (Calcitriol) Oral 0.5 mcg ORAL 3X Week During Dialysis 03/25/2023 03/20/2024 FLOOR TRADER: Gabriel Mena MD LOCATION: [phone] SCHEDULE: - 2nd Shift EDW: kg. DIALYZER: HD DURATION: NEEDLE SIZE: ANTICOAG: BATH: QB: ml/min QD: ml/min Subjective Tolerating dialysis well. Reports no trouble with access. 09/27/23: Stable dialysis. No new symptoms. BP still above goal. She would like to try a new medication on top of current ones. Mild edema in lower legs. Advanced Practitioner Subjective CANDY DEPARTMENT MANAGER 09/02/2023: Spoke with patient on dialysis. Reports feeling well. Occasional cramping. Denies SOB, chest pain, or dizziness. EDW recently challenged. AVF functional; no reported issues. BP elevated. Patient increases anti- hypertensives at times. Continue to encourage low sodium intake. CANDY DEPARTMENT MANAGER 07/17/2023: Patient seen on dialysis. Today she denies SOB, chest pain or cramping. Arm access working well. BP elevated. Leaving at EDW. Will continue to monitor weight. Review of Systems None reported. except above [...] directed every four hours as needed 04/21/2018 Auryxia (ferric citrate) 210 mg iron tablet Take 3 tablet by mouth three times a day with meals Shania Low Dose Aspirin (aspirin) 81 mg tablet,delayed release (DR/EC) Take 1 tablet by mouth once aday clonidine HCl 0.1 mg tablet Take 2 tablet by mouth every morning. 3 tabs HS furosemide 40 mg tablet Take 1 tablet by mouth once a day as directed glipizide 10 mg tablet extended release 24hr Take 2 tablet by mouth once a day 04/21/2018 labetalol 300 mg tablet Take 2 tablet by mouth three times a day 01/18/2023 Miralax (polyethylene glycol 3350) [...] small amount to dialysis exit site daily Nephro-Josefina (b complex-vitamin c-folic acid) 0.8 mg tablet Take 1 tablet by mouth once a day 02/13/2023 oxycodone 5 mg tablet, oral only Take 1 tablet by mouth twice a day as needed for pain 02/15/2023 pantoprazole 40 mg tablet,delayed release (DR/EC) 1 tablet by mouth twice a day one hour before meals Procardia XL (nifedipine) 90 mg tablet extended release 24hr Take 1 tablet by mouth once a day. take it at post dialysis as per (07/22/23) 08/07/2023 repaglinide 1 mg tablet Take 3 tablet by mouth three times a day with meals 12/14/2020 Senna Lax (sennosides) 8.6 mg tablet Take 2 tablet by mouth once a day 04/21/2018 sorbitol 70% solution Take 30 ml by mouth once a day as needed. take as needed for constipation spironolactone 25 mg tablet Take 1 tablet by mouth once a day 09/27/2023 triamcinolone acetonide 0.1% lotion Apply a small [...] Treatment and Adequacy Assessment BUN mg/dL 46 (09/18/23) 40 (08/14/23) 45 (07/17/23) 56 (06/12/23) 40 (05/15/23) UREA NITROGEN (MG/DL) IN SER/PLAS - POST DIALYSIS mg/dL 10 (09/18/23) 8 (08/14/23) 8 (07/17/23) 10 (06/12/23) 8 (05/15/23) URR % 78 (09/18/23) 80 (08/14/23) 82 (07/17/23) 82 (06/12/23) 80 (05/15/23) spKt/V Gotch 1.78 (09/18/23) 1.78 (08/14/23) 1.96 (07/17/23) 2 (06/12/23) 1.79 (05/15/23) eKdrt/V 1.43 (09/18/23) 1.42 (08/14/23) 1.56 (07/17/23) 1.59 (06/12/23) 1.39 (05/15/23) spKt/V (Daugirdas II) 1.7800 (09/18/23) 1.7800 (08/14/23) 1.9600 (07/17/23) 1.9800 (06/12/23) 1.7900 (05/15/23) Dialysis is adequate. Achieves prescribed time - Yes Achieves prescribed frequency - Yes Continue current prescription. Time 2h45m ok, very petite and fluid gains are low Vascular Access Assessment Type of access: Fistula Had AVF placed in Jan 2018, mature and working well. Never had catheter PD catheter [place] [facility], removed for peritonitis 11/2022 Anemia Assessment HEMOGLOBIN (G/DL) IN BLOOD g/dL 9.7 (09/25/23) 9.7 (09/18/23) 9.8 (09/11/23) 9.5 (09/04/23) 10.1 (08/28/23) PLATELETS 1000/mcL 262 (10/24/22) FERRITIN ng/mL 942 (09/18/23) 1394 (06/12/23) 1606 (03/22/23) 5007 (12/12/22) 3454 (11/28/22) TRANSFERRIN SAT% % 19 (09/18/23) 20 (08/14/23) 20 (07/17/23) 38 (06/12/23) 18 (05/17/23) Hemoglobin is below goal. Iron Saturation is below goal. Ferritin is at goal. Will adjust ELA and intravenous iron per protocol. Nutritional and Metabolic Assessment ALBUMIN (G/DL) g/dL 3.4 (09/18/23) 3.3 (08/14/23) 3.5 (07/17/23) 3.8 (06/12/23) 3.6 (05/15/23) Sodium mEq/L 136 (09/18/23) 137 (08/14/23) 135 (07/17/23) 138 (06/12/23) 140 (05/17/23) POTASSIUM (MMOL/L) IN SER/PLAS mEq/L 5.6 (09/18/23) 4.4 (08/14/23) 4.9 (07/17/23) 4.8 (06/12/23) 4.6 (05/17/23) BICARBONATE (CO2) mEq/L 22 (09/18/23) 21 (08/14/23) 26 (07/17/23) 23 (06/12/23) 25 (05/17/23) 25 OH VITAMIN D ng/mL 21.3 (12/12/22) Albumin is below goal. Encourage high-biological value protein intake. Oral Nutritional Supplement program. Potassium is at goal. Encourage low potassium diet. Bicarbonate is at goal. Continue same bicarbonate in dialysate. Bone and Mineral Metabolism Assessment CALCIUM mg/dL 8.8 (09/18/23) 8.6 (08/14/23) 9.2 (07/17/23) 8.9 (06/12/23) 8.5 (05/27/23) CALCIUM (MG/DL) CORRECTED FOR ALBUMIN IN SER/PLAS mg/dL 9.3 (09/18/23) 9.2 (08/14/23) 9.6 (07/17/23) 9.1 (06/12/23) 9.4 (04/17/23) PHOSPHATE (MG/DL) IN SER/PLAS mg/dL 4.8 (09/18/23) 4.5 (08/14/23) 4.1 (07/17/23) 6.6 (06/12/23) 5.7 (05/17/23) CALCIUM PHOSPHORUS PRODUCT, COR 45 (09/18/23) 41 (08/14/23) 39 (07/17/23) 60 (06/12/23) 48 (04/17/23) IPTH pg/mL 323 (09/18/23) 335 (06/12/23) 292 (04/17/23) 479 (03/20/23) 376 (12/12/22) Corrected Calcium is at goal. Phosphorous is at goal. Intact PTH is at goal. Shredder Tender Peat will adjust binders and vitamin D per protocol and continue to provide dietary education. Cardiovascular Assessment Blood pressures reviewed and are not at goal, see below. Intradialytic weight gains are appropriate. Estimated dry weight is appropriate. Labetalol increased, nifedipine replaced amlodipine BP's still elevated, will add spironolactone. Start at 25mg, may need to titrate up. Sent to her pharmacy ([facility]) today Transplant Status: Patient is not a candidate. Age, co-morbidities, nicotine dependence with COPD Resuscitation Status Stable hemodialysis Start spironolactone at 25mg daily, monitor BP Gabriel Mena MD [ Signed And locked electronically On 09/27/2023 at 03:10:18 PM ] Transcribed: Gabriel Mena ( 09/27/2023 ) documented in this encounter Plan of Treatment Not on file documented as of this encounter Visit Diagnoses Not on filedocumented in this encounter Care Teams Recruitment Director Relationship Specialty Start Date End Date Tyrell Schneider MD [address] [place] [address] PCP - General 10/27/18 documented as of this encounter
--- OUTSIDE RECORDS SUMMARY | 2023-12-03 20:15 | XMS_ITS | Continuity of Care Document ---
Author Organization [facility] Address [address] [address] [place] [address] Phone Care Team Providers Care Stenocaptioner Name Role Phone Adama Katz MD Unavailable Unavailable Procedures Procedure Date Ugi Endo; Dx W/wo Collec Specm Init Hosp-da E&m Mod Severity 3 Advance Directives Directive Yes / No Effective Date File Name No Information Encounters Encounter Description Practice Location Reason(s) For Visit Diagnoses Date Provider Providers Copied on Encounter [facility] [place] [address] [address], [place], [place], [id number], tel:[phone] [facility] No Information Sterling Galan. [address] [place] [address], [id number], [place]. tel:[phone] Referring Provider: Adama Katz MD , [address] [place] [address], [address]. tel:[phone] Init Hosp-da E&m Mod Severity [facility] [place], [address] [address], [place], [place], [id number], tel:[phone] [facility] No Information Edstromkar Vega. [address] [place] [address], [place], [place], [id number], [place]. tel:[phone] Referring Provider: Tyrell Chamberlain, Suzie Holloway , [place], [address]. tel:[phone] Family History Family Member Type Diagnosis Age At Onset No Information Payers Payer name Insurance type Covered green party ID Yu eric(s) [employer] [place] [employer] [place] [id number] Social History Type Description Quantity Date Captured [...]
--- OUTSIDE RECORDS SUMMARY | 2023-12-03 20:15 | XMS_ITS | Encounter Summary ---
Author Organization [facility] Address [address] [place] [address] Care Team Providers Care Waste Management Specialist Name Role Phone Tyrell Schneider MD Primary Care Provider [phone] Encounter Details Date Type Department Care Team (Late st Contact Info) Description 11/13/2023 Orders Only [facility] [place] [address] [facility] [address] [place] [address] Gabriel Mena MD [address] [place] [address] Social History Tobacco Use Types [...] Date/Time Associated Diagnosis Comments HD KINETICS Routine 11/13/2023 POST CHEMISTRY Routine 11/13/2023 HEMATOLOGY Routine 11/13/2023 CHEMISTRY Routine 11/13/2023 [facility] RESULTS Routine 11/13/2023 documented in this encounter Results * [facility] Results (11/13/2023) eNPCR 1.15 [facility] spKt/V Gotch 1.91 [facility] spKt/V (Daugirdas II) 1.90 [facility] nPCR_HD 1.26 [facility] PCR 48.14 [facility] eKt/V Gotch 1.53 [facility] [place] eKt/V ([place]) 1.57 [facility] WSTDKT/V 2.6 [facility] eKdrt/V 1.53 [facility] 11/13/2023 11/13/2023 [facility] Ordering Provider LAB BLOOD ORDERABLES Final Result Performing Organization Address City/[facility]/ZIP Co de Phone Number [facility] Contact Performing lab Unknown, [place] * (ABNORMAL) HD KINETICS (11/13/2023) Pathologist [facility] % Urea Reduction 81(H) 65 - 80 % [facility] 11/13/2023 11/14/2023 6:0 0 PM CDT Narrative Resulting Agency Comment Specimen source: Plasma Gabriel Mena MD LAB BLOOD ORDERABLES Final Re sult Performing Organization Address [facility] Co de Phone Number [facility] See order comments or contact performing lab Unknown, [place] * POST CHEMISTRY (11/13/2023) Pathologist [facility] BUN Post Dialysis 13 6 - 19 mg/dL [facility] 11/13/2023 11/14/2023 6:0 0 PM CDT Narrative [facility] - 11/14/2023 Unless otherwise specified, test(s) performed at: [facility], [address] [place] [address], [place] [address] PUBLIC HEALTH SERVICE OFFICER: Eze Park M.D., Ph.D For any questions, please call customer service at FREQUENCY:MONTHLY Resulting Agency Comment Specimen source: Plasma Gabriel Mena MD LAB BLOOD ORDERABLES Final Re sult [facility] See order comments or contact performing lab Unknown, [place] * (ABNORMAL) [facility] (11/13/2023) BUN 67(H) 6 - 19 mg/dL [facility] [...] 11/13/2023 11/14/2023 6:5 5 PM CDT Narrative [facility] - 11/14/2023 Unless otherwise specified, test(s) performed at: [facility], [address] [place] [address], [place] [address] PUBLIC HEALTH SERVICE OFFICER: Eze Park M.D., Ph.D For any questions, please call customer service at FREQUENCY:MONTHLY Resulting Agency Comment Specimen source: Serum us Gabriel Mena MD LAB BLOOD ORDERABLES Final Re sult [facility] See order comments or contact performing lab Unknown, [place] * (ABNORMAL) HEMATOLOGY (11/13/2023) Neutrophils 81.7(H) 40.0 - 75.0 % [facility] Lymphocytes Relative 5.9(L) 19.0 - 48.0 % [facility] Monocytes 4.8 3.0 - 10.0 % [facility] Eosinophils Relative 5.1 0.0 - 7.0 % [facility] Basophils Relative 0.7 0.0 - 1.5 % [facility] JUANITO 1.9 0.0 - 4.0 % [facility] WBC 8.91 4.80 - 10.80 1000/mcL [facility] RBC 4.23 4.20 - 5.40 mill/mcL [facility] Hematocrit 39.3 37.0 - 47.0 % [facility] MCV 93 80 - 100 fl [facility] MCH 28.2 27.0 - 31.0 pg [facility] MCHC 30.3 30.0 - 36.0 g/dL [facility] RDW 20.8(H) 11.5 - 14.5 % [facility] Hemoglobin 11.9(L) 12.0 - 16.0 g/dL [facility] Hemoglobin x 3 35.7(L) 36.0 - 48.0 % [facility] 11/13/2023 11/14/2023 6:1 6 PM CDT Narrative [facility] - 11/14/2023 Unless otherwise specified, test(s) performed at: [facility], [address] [place] [address], [place] [address] PUBLIC HEALTH SERVICE OFFICER: Eze Park M.D., Ph.D For any questions, please call customer service at FREQUENCY:MONTHLY Resulting Agency Comment Specimen source: Blood us Gabriel Mena MD LAB BLOOD ORDERABLES Final Re sult [facility] See order comments or contact performing lab Unknown, [place] documented in this encounter Visit Diagnoses Not on filedocumented in this encounter Care Teams Waste Management Specialist Relationship Specialty Start Date End Date Tyrell Schneider MD [address] [place] [address] PCP - General 10/27/18 documented as of this encounter
--- OUTSIDE RECORDS SUMMARY | 2023-12-03 20:15 | XMS_ITS | Encounter Summary ---
Author Organization [facility] Address [address] [place] [address] Care Team Providers Care Chemistry Account Manager Name Role Phone Tyrell Schneider MD Primary Care Provider [phone] Encounter Details Date Type Department Care Team ([facility] st Contact Info) Description 09/02/2023 Treatment [facility] [place] [address] [place] [address] Ana Rosa APRN-FOOD SERVICE CASHIER [address] [facility] [address] [place] [phone] Social History Tobacco Use Types Packs/Day Years Used Date Smoking Tobacco: Never Assessed Comments Unknown Sex and Gender Information Value Date Recorded Sex Assigned at Not on file Legal Sex Female 7:04 PM EDT Gender Identity Not on file Sexual Orientation Not on file documented as of this encounter Miscellaneous Notes * Dialysis Note - Ana Rosa APRN-FOOD SERVICE CASHIER - 09/02/2023 10:12 AM CDT Date: Sep 02, 2023 Patient Name: Maricruz Vanegas : 1945 Chart #: [id number] Sex: F This patient was personally seen for a complete visit as part of routine monthly dialysis care. A review of the dialysis treatment, blood pressure, estimated dry weight and recent lab values was made. These were discussed with the patient and staff as necessary. Treatment Data for 09/02/2023 started at:10:44 AM Dialyzer: 160NRe Optiflux Na: 137 mEq/L Bicarb: 25 mEq/L Dialysate: 3.0 K, 2.5 Ca, 1.0 Mg, 100 Dextrose (G3251) Dialysate/Machine Temp (prescribed): 37 C Dialysate/Machine Temp (actual): 36.9 C BFR (prescribed): 450 BFR (actual): 450 Prescribed time: 02:45 EDW: 41.5 kg Access Type: Active (In Use):AVFistula-Standard/Left Upper Arm Pre Dialysis Vitals (for 09/02/2023 10:39 AM ) Pre BP (sit): 210/80 Pre Wt: 42.8 kg Temp: 98.8 F Post Dialysis Vitals (for 08/30/2023 1:39 PM ) Post BP (sit): 180/74 Post Wt: 41.3 kg Current Dialysis Vitals (for 09/02/2023 10:59 AM ) BP (sit): n/a AP(-) / ALARM OPERATOR: 156/206 Pulse: n/a Chairside data as of 09/02/2023 10:59 AM Last 3 Treatments 08/30/2023 08/28/2023 08/26/2023 EDW (kg) 40.8 40.8 41 Weight Pre (kg) 42.2 42.5 41.9 Weight Post (kg) 41.3 40.6 40.8 Dialytic Weight Loss (kg) -0.9 -1.9 -1.1 EDW Deviation (kg) 0.5 -0.2 -0.2 BP Sit Pre 167/69 183/69 170/69 BP Sit Post 180/74 204/91 192/72 UF Rate (mL/kg/hr) 8 17 10 Prescribed BFR 450 450 450 Average Delivered BFR 450 450 450 Prescribed Treatment Time 02:45 02:45 02:45 Actual Treatment Time 02:51 02:46 02:41 Last 3 Values 08/16/2023 08/12/2023 07/19/2023 Access Flow 918 151 117 Treatment Medication Orders Medication Sig Start Date End Date Heparin Sodium (Porcine) 1,000 Units/mL Systemic 2000 units IVP Every Treatment 02/15/2023 02/14/2024 Mircera 50 mcg IVP Every 2 weeks During Dialysis 08/07/2023 08/05/2024 Vitamin D (Calcitriol) Oral 0.5 mcg ORAL 3X Week During Dialysis 03/25/2023 03/20/2024 GENERAL FREIGHT AGENT: Gabriel Mena MD LOCATION: [phone] SCHEDULE: -- 2nd Shift EDW: kg. DIALYZER: HD DURATION: NEEDLE SIZE: ANTICOAG: BATH: QB: ml/min QD: ml/min Subjective Tolerating dialysis well. Reports no trouble with access. 08/07/23: Ongoing elevated BP's, was better when she increased labetalol to 2 tabs did but only short term and they are elevated again. Feels well with dialysis, no cramping. She denies CP or SOB. Advanced Practitioner Subjective TELECOMMUNICATIONS LINE MECHANIC 09/02/2023: Spoke with patient on dialysis. Reports feeling well. Occasional cramping. Denies SOB, chest pain, or dizziness. EDW recently challenged. AVF functional; no reported issues. BP elevated. Patient increases anti- hypertensives at times. Continue to encourage low sodium intake. TELECOMMUNICATIONS LINE MECHANIC 07/17/2023: Patient seen on dialysis. Today she [...] - Regular rate. Regular rhythm. Edema - No leg edema. Access - LUE AVF with [...] made. Treatment and Adequacy Assessment BUN mg/dL 40 (08/14/23) 45 (07/17/23) 56 (06/12/23) 40 (05/15/23) 54 (04/24/23) UREA NITROGEN (MG/DL) IN SER/PLAS - POST DIALYSIS mg/dL 8 (08/14/23) 8 (07/17/23) 10 (06/12/23) 8 (05/15/23) 9 (04/24/23) URR % 80 (08/14/23) 82 (07/17/23) 82 (06/12/23) 80 (05/15/23) 83 (04/24/23) spKt/V Gotch 1.78 (08/14/23) 1.96 (07/17/23) 2 (06/12/23) 1.79 (05/15/23) 2 (04/24/23) eKdrt/V 1.42 (08/14/23) 1.56 (07/17/23) 1.59 (06/12/23) 1.39 (05/15/23) 1.6 (04/24/23) spKt/V (Daugirdas II) 1.7800 (08/14/23) 1.9600 (07/17/23) 1.9800 (06/12/23) 1.7900 (05/15/23) 2.0000 (04/24/23) Dialysis is adequate. Achieves prescribed time - Yes Achieves prescribed frequency - Yes Continue current prescription. Time 2h45m ok, very petite and fluid gains are low Vascular Access Assessment Type of access: Fistula Had AVF placed in Jan 2018, mature and working well. [place] had catheter [place] [facility]itis 11/2022 Anemia Assessment HEMOGLOBIN (G/DL) IN BLOOD g/dL 10.1 (08/28/23) 10.5 (08/21/23) 10.1 (08/14/23) 9.6 (08/07/23) 9.5 (07/31/23) PLATELETS 1000/mcL 262 (10/24/22) FERRITIN ng/mL 1394 (06/12/23) 1606 (03/22/23) 5007 (12/12/22) 3454 (11/28/22) TRANSFERRIN SAT% % 20 (08/14/23) 20 (07/17/23) 38 (06/12/23) 18 (05/17/23) 42 (04/17/23) Hemoglobin is at goal. Iron Saturation is below goal. Ferritin is above goal. Will adjust ELA and intravenous iron per protocol. Nutritional and Metabolic Assessment ALBUMIN (G/DL) g/dL 3.3 (08/14/23) 3.5 (07/17/23) 3.8 (06/12/23) 3.6 (05/15/23) 3.3 (04/17/23) Sodium mEq/L 137 (08/14/23) 135 (07/17/23) 138 (06/12/23) 140 (05/17/23) 135 (04/17/23) POTASSIUM (MMOL/L) IN SER/PLAS mEq/L 4.4 (08/14/23) 4.9 (07/17/23) 4.8 (06/12/23) 4.6 (05/17/23) 5.3 (04/17/23) BICARBONATE (CO2) mEq/L 21 (08/14/23) 26 (07/17/23) 23 (06/12/23) 25 (05/17/23) 22 (04/17/23) 25 OH VITAMIN D ng/mL 21.3 (12/12/22) Albumin is below goal. Encourage high-biological value protein intake. Oral Nutritional Supplement program. Potassium is at goal. Encourage low potassium diet. Bicarbonate is at goal. Continue same bicarbonate in dialysate. Bone and Mineral Metabolism Assessment CALCIUM mg/dL 8.6 (08/14/23) 9.2 (07/17/23) 8.9 (06/12/23) 8.5 (05/27/23) 8.8 (04/17/23) CALCIUM (MG/DL) CORRECTED FOR ALBUMIN IN SER/PLAS mg/dL 9.2 (08/14/23) 9.6 (07/17/23) 9.1 (06/12/23) 9.4 (04/17/23) 9.1 (02/13/23) PHOSPHATE (MG/DL) IN SER/PLAS mg/dL 4.5 (08/14/23) 4.1 (07/17/23) 6.6 (06/12/23) 5.7 (05/17/23) 5.1 (04/17/23) CALCIUM PHOSPHORUS PRODUCT, COR 41 (08/14/23) 39 (07/17/23) 60 (06/12/23) 48 (04/17/23) 39 (02/13/23) IPTH pg/mL 335 (06/12/23) 292 (04/17/23) 479 (03/20/23) 376 (12/12/22) 276 (11/28/22) Corrected Calcium is at goal. Phosphorous is at goal. Intact PTH is at goal. Finance Business Partner will adjust binders and vitamin D per protocol and continue to provide dietary education. Cardiovascular Assessment Blood pressures reviewed and are not at goal, see below. Intradialytic weight gains are appropriate. Estimated dry weight is appropriate. She increased labetalol on her own, made change in meds to reflect this I will stop amlodipine and start Procardia XL 90mg Transplant Status: Patient is not a candidate. Age, co-morbidities, nicotine dependence with COPD Resuscitation Status Stable hemodialysis No change in dialysis plan Encouraged to adhere to medication regimen AAN ROSA NP [ Signed And locked electronically On 09/02/2023 at 11:20:58 AM ] Transcribed: ANA ROSA ( 09/02/2023 ) documented in this encounter Plan of Treatment Not on file documented as of this encounter Visit Diagnoses Not on filedocumented in this encounter Care Teams Chemistry Account Manager Relationship Specialty Start Date End Date Tyrell Schneider MD [address] [place] [address] PCP - General 10/27/18 documented as of this encounter
--- OUTSIDE RECORDS SUMMARY | 2023-12-03 20:15 | XMS_ITS | Continuity of Care Document ---
Author Organization [facility] Address [address] [place] [address] Phone Care Team Providers Care Huller Operator Name Role Phone Frankie Brunson Unavailable Unavailable [...] Date Office/Outpatient Visit,Est, Mod 2020 Office/Outpatient Visit,New, [facility] 2020 Advance Directives Directive Yes / No Effective Date File Name No Information Encounters Encounter Description Practice Location Reason(s) For Visit Diagnoses Date Provider Providers Copied on Encounter [facility], [address], [place], [place], [id number] , [place] tel: [phone] [facility] No Information 1 Vianey David. [address] [address], [place], [place], [id number], [place]. tel:[phone] Office/Outpa tient Visit,Est, Mod [facility], [address], [place], [place], [id number] , [place] tel:[phone] [facility] Other spondylosis, lumbar regionSpinal stenosis, lumbar region with neurogenic claudication 1 Allison Lee. [facility], [address], [address], [place], [place], [id number], [place]. tel:[phone] Referring Provider: Tyrell Chamberlain, [employer] [address], [place], [address]. tel:[phone] Office/Outpa tient Visit,New, Mod [facility], [address], [place], [place], [id number] , [place] tel:[phone] [facility] Spinal stenosis, lumbar region with neurogenic claudicationOt her spondylosis, lumbar region 1 No Information Referring Provider: Tyrell Chamberlain, [facility] [employer] [address], [place], [address]. tel:[phone] Family History Family Member Type Diagnosis Age At Onset No Information Payers Payer name Insurance type Covered republican ID Authorharpreet eric(s) [facility] [id number] Medicare [facility] [id number] 1 Social History Type Description Quantity Date [...]
--- OUTSIDE RECORDS SUMMARY | 2023-12-03 20:15 | XMS_ITS | Encounter Summary ---
Author Organization [facility] Address [address] [place] [address] Care Team Providers Care Interlacer Name Role Phone Tyrell Schneider MD Primary Care Provider [phone] Encounter Details Date Type Department Care Team (Late st Contact Info) Description 10/30/2023 Orders Only [facility] [place] [address] [place] [address] Gabriel Mena MD [address] [place] [address] Social History Tobacco Use Types [...] Priority Date/Time Associated Diagnosis Comments HEMATOLOGY Routine 10/30/2023 documented in this encounter Results * (ABNORMAL) HEMATOLOGY (10/30/2023) Hemoglobin 11.6(L) 12.0 - 16.0 g/dL [facility] Hemoglobin x 3 34.8(L) 36.0 - 48.0 % [facility] 10/30/2023 10/31/2023 4:0 3 AM CDT Narrative [facility] - 10/31/2023 Unless otherwise specified, test(s) performed at: [facility], [address] [facility], [place] [address] CREDIT PORTFOLIO ADVISOR: Eze Park M.D., Ph.D For any questions, please call customer service at FREQUENCY:OTHER Resulting Agency Comment Specimen source: Blood us Gabriel Mena MD LAB BLOOD ORDERABLES Final Re sult [facility] See order comments or contact performing lab Unknown, [place] documented in this encounter Visit Diagnoses Not on filedocumented in this encounter Care Teams Interlacer Relationship Specialty Start Date End Date Tyrell Schneider MD [address] [place] [address] PCP - General 10/27/18 documented as of this encounter
--- OUTSIDE RECORDS SUMMARY | 2023-12-03 20:15 | XMS_ITS | Encounter Summary ---
Author Organization [facility] Address [address] [place] [address] Care Team Providers Care Sales Administration Specialist Name Role Phone Tyrell Schneider MD Primary Care Provider [phone] Encounter Details Date Type Department Care Team (Late st Contact Info) Description 11/08/2023 Orders Only [facility] [place] [address] [place] [address] Gabriel Mena MD [address] [place] [address] Social History Tobacco Use Types [...] Priority Date/Time Associated Diagnosis Comments HEMATOLOGY Routine 11/08/2023 documented in this encounter Results * (ABNORMAL) HEMATOLOGY (11/08/2023) Hemoglobin 11.7(L) 12.0 - 16.0 g/dL [facility] Hemoglobin x 3 35.1(L) 36.0 - 48.0 % [facility] 11/08/2023 11/09/2023 2:5 5 AM CDT Narrative [facility] - 11/09/2023 Unless otherwise specified, test(s) performed at: [facility], [address] [facility], [place] [address] NURSERY NURSE: Eze Park M.D., Ph.D For any questions, please call customer service at FREQUENCY:OTHER Resulting Agency Comment Specimen source: Blood us Gabriel Mena MD LAB BLOOD ORDERABLES Final Re sult [facility] See order comments or contact performing lab Unknown, [place] documented in this encounter Visit Diagnoses Not on filedocumented in this encounter Care Teams Sales Administration Specialist Relationship Specialty Start Date End Date Tyrell Schneider MD [address] [place] [address] PCP - General 10/27/18 documented as of this encounter
--- OUTSIDE RECORDS SUMMARY | 2023-12-03 20:15 | XMS_ITS | Encounter Summary ---
Author Organization [facility] Address [address] [place] [address] Care Team Providers Care Plant Protection Superintendent Name Role Phone Tyrell Schneider MD Primary Care Provider [phone] Encounter Details Date Type Department Care Team (Late st Contact Info) Description 11/20/2023 Orders Only [facility] [place] [address] [facility] [address] [place] [address] Gabriel Mena MD [address] [place] [address] Social History Tobacco Use Types [...] Priority Date/Time Associated Diagnosis Comments HEMATOLOGY Routine 11/20/2023 documented in this encounter Results * HEMATOLOGY (11/20/2023) Hemoglobin 12.2 12.0 - 16.0 g/dL [facility] Hemoglobin x 3 36.6 36.0 - 48.0 % [facility] 11/20/2023 11/21/2023 3:5 3 AM CDT Narrative [facility] - 11/21/2023 Unless otherwise specified, test(s) performed at: [facility], [address] [place], [place] [address], [place] [address] APPLIQUER: Eze Park M.D., Ph.D For any questions, please call customer service at FREQUENCY:OTHER Resulting Agency Comment Specimen source: Blood us Gabriel Mena MD LAB BLOOD ORDERABLES Final Re sult [facility] See order comments or contact performing lab Unknown, [place] documented in this encounter Visit Diagnoses Not on filedocumented in this encounter Care Teams Plant Protection Superintendent Relationship Specialty Start Date End Date Tyrell Schneider MD [address] [place] [address] PCP - General 10/27/18 documented as of this encounter
--- OUTSIDE RECORDS SUMMARY | 2023-12-03 20:15 | XMS_ITS | Encounter Summary ---
Author Organization [facility] Address [address] [facility] [address] [place] [address] Care Team Providers Care Classics Teacher Name Role Phone Tyrell Schneider MD Primary Care Provider [phone] Reason for Visit * Reason Comments Med Refill Encounter Details Date Type Department Care Team (Late st Contact Info) Description 11/10/2023 Refill [facility] [place] [address] [facility] [address] [place] [address] Gabriel Mena MD [address] [place] [address] Social History Tobacco Use Types Packs/Day Years Used Date Smoking Tobacco: Never Assessed Comments Unknown Sex and Gender Information Value Date Recorded Sex Assigned at Not on file Legal Sex Female 7:04 PM EDT Gender Identity Not on file Sexual Orientation Not on file documented as of this encounter Miscellaneous Notes * Telephone Encounter - Emma Sauceda RN - 11/11/2023 9:35 AM CDT Faxed to [facility] documented in this encounter Plan of Treatment Not on file documented as of this encounter Visit Diagnoses Not on filedocumented in this encounter Care Teams Classics Teacher Relationship Specialty Start Date End Date Tyrell Schneider MD [address] [place] [address] PCP - General 10/27/18 documented as of this encounter
--- OUTSIDE RECORDS SUMMARY | 2023-12-03 20:15 | XMS_ITS | Encounter Summary ---
Author Organization [facility] Address [address] [place] [address] Care Team Providers Care Lining Presser Name Role Phone Tyrell Schneider MD Primary Care Provider [phone] Encounter Details Date Type Department Care Team (Late st Contact Info) Description 09/11/2023 Orders Only [facility] [place] [address] [place] [address] Gabriel Mena MD [address] [place] [address] Social History Tobacco Use Types [...] Priority Date/Time Associated Diagnosis Comments HEMATOLOGY Routine 09/11/2023 documented in this encounter Results * (ABNORMAL) HEMATOLOGY (09/11/2023) Hemoglobin 9.8(L) 12.0 - 16.0 g/dL [facility] Hemoglobin x 3 29.4(L) 36.0 - 48.0 % [facility] 09/11/2023 09/12/2023 1:5 6 PM CDT Narrative [facility] - 09/12/2023 Unless otherwise specified, test(s) performed at: [facility], [address] [facility], [place] [address] PROGRAMMER ANALYST CONSULTANT: Eze Park M.D., Ph.D For any questions, please call customer service at FREQUENCY:OTHER Resulting Agency Comment Specimen source: Blood us Gabriel Mena MD LAB BLOOD ORDERABLES Final Re sult [facility] [place] See order comments or contact performing lab Unknown, [place] documented in this encounter Visit Diagnoses Not on filedocumented in this encounter Care Teams Lining Presser Relationship Specialty Start Date End Date Tyrell Schneider MD [address] [place] [address] PCP - General 10/27/18 documented as of this encounter
--- OUTSIDE RECORDS SUMMARY | 2023-12-03 20:15 | XMS_ITS | Encounter Summary ---
Author Organization [facility] Address [address] [place] [address] Care Team Providers Care Guidance Services Coordinator Name Role Phone Tyrell Schneider MD Primary Care Provider [phone] Encounter Details Date Type Department Care Team (Late st Contact Info) Description 10/02/2023 Orders Only [facility] [place] [address] [place] [address] Gabriel Mena MD [address] [place] [address] Social History Tobacco Use Types [...] Priority Date/Time Associated Diagnosis Comments HEMATOLOGY Routine 10/02/2023 documented in this encounter Results * (ABNORMAL) HEMATOLOGY (10/02/2023) Hemoglobin 10.0(L) 12.0 - 16.0 g/dL [facility] Hemoglobin x 3 30.0(L) 36.0 - 48.0 % [facility] 10/02/2023 10/03/2023 7:0 3 AM CDT Narrative [facility] - 10/03/2023 Unless otherwise specified, test(s) performed at: [facility], [address] [facility], [place] [address] DISPATCHER CLERK: Eze Park M.D., Ph.D For any questions, please call customer service at FREQUENCY:OTHER Resulting Agency Comment Specimen source: Blood us Gabriel Mena MD LAB BLOOD ORDERABLES Final Re sult [facility] See order comments or contact performing lab Unknown, [place] documented in this encounter Visit Diagnoses Not on filedocumented in this encounter Care Teams Guidance Services Coordinator Relationship Specialty Start Date End Date Tyrell Schneider MD [address] [place] [address] PCP - General 10/27/18 documented as of this encounter
--- OUTSIDE RECORDS SUMMARY | 2023-12-03 20:15 | XMS_ITS | Encounter Summary ---
Author Organization [facility] [place] Address [address] [place] [address] Care Team Providers Care Tool And Die Maker Apprentice Name Role Phone Tyrell Schneider MD Primary Care Provider [phone] Encounter Details Date Type Department Care Team ([facility] st Contact Info) Description 10/09/2023 Treatment [facility] [place] [address] [place] [address] Ana Rosa APRN-PROFESSOR CRIMINAL JUSTICE [address] [facility] [address] [place] [phone] Social History Tobacco Use Types Packs/Day Years Used Date Smoking Tobacco: Never Assessed Comments Unknown Sex and Gender Information Value Date Recorded Sex Assigned at Not on file Legal Sex Female 7:04 PM EDT Gender Identity Not on file Sexual Orientation Not on file documented as of this encounter Miscellaneous Notes * Dialysis Note - Ana Rosa APRN-PROFESSOR CRIMINAL JUSTICE - 10/09/2023 10:00 AM CDT Date: Oct 09, 2023 Patient Name: Maricruz Vanegas : 1945 Chart #: [id number] Sex: F This patient was personally seen for a complete visit as part of routine monthly dialysis care. A review of the dialysis treatment, blood pressure, estimated dry weight and recent lab values was made. These were discussed with the patient and staff as necessary. Treatment Data for 10/09/2023 started at:10:42 AM Dialyzer: 160NRe Optiflux Na: 137 mEq/L Bicarb: 25 mEq/L Dialysate: 2.0 K, 2.5 Ca, 1.0 Mg, 100 Dextrose (G2251) Dialysate/Machine Temp (prescribed): 37 C Dialysate/Machine Temp (actual): 36.6 C BFR (prescribed): 450 BFR (actual): n/a Prescribed time: 02:45 EDW: 41.3 kg Access Type: Active (In Use):AVFistula-Standard/Left Upper Arm Pre Dialysis Vitals (for 10/09/2023 10:34 AM ) Pre BP (sit): 174/60 Pre Wt: 43.5 kg Temp: 98.6 F Post Dialysis Vitals (for 10/07/2023 1:33 PM ) Post BP (sit): 190/70 Post Wt: 42.5 kg Current Dialysis Vitals (for 10/09/2023 10:45 AM ) BP (sit): 184/65 AP(-) / WATER TREATMENT OPERATOR: n/a Pulse: 49 Chairside data as of 10/09/2023 10:45 AM Last 3 Treatments 10/07/2023 10/04/2023 10/02/2023 EDW (kg) 41.3 41.3 41.3 Weight Pre (kg) 41.1 43.2 43.2 Weight Post (kg) 42.5 41.3 41.1 Dialytic Weight Loss (kg) 1.4 -1.9 -2.1 EDW Deviation (kg) 1.2 0.0 -0.2 BP Sit Pre 188/67 162/67 176/57 BP Sit Post 190/70 184/69 186/76 UF Rate (mL/kg/hr) -13 17 18 Prescribed BFR 450 450 450 Average Delivered BFR 450 450 430 Prescribed Treatment Time 02:45 02:45 02:45 Actual Treatment Time 02:38 02:45 02:50 Last 3 Values 09/13/2023 08/16/2023 08/12/2023 Access Flow 385 867 390 Treatment Medication Orders Medication Sig Start Date End Date Heparin Sodium (Porcine) 1,000 Units/mL Systemic 2000 units IVP Every Treatment 02/15/2023 02/14/2024 Mircera 60 mcg IVP Every 2 weeks During Dialysis 09/18/2023 09/16/2024 Vitamin D (Calcitriol) Oral 0.5 mcg ORAL 3X Week During Dialysis 03/25/2023 03/20/2024 WEAPONS OFFICER NAVAL ACTIVITY: Gabriel Mena MD LOCATION: [phone] SCHEDULE: -- 2nd Shift EDW: kg. DIALYZER: HD DURATION: NEEDLE SIZE: ANTICOAG: BATH: QB: ml/min QD: ml/min Subjective Tolerating dialysis well. Reports no trouble with access. 09/27/23: Stable dialysis. No new symptoms. BP still above goal. She would like to try a new medication on top of current ones. Mild edema in lower legs. Advanced Practitioner Subjective PUBLIC HEALTH INSPECTOR 10/09/2023: Patient seen on dialysis. Today she denies SOB, chest pain or cramping. Arm access working well. BP elevated. Leaving at EDW. Will continue to monitor weight. PUBLIC HEALTH INSPECTOR 09/02/2023: Spoke with patient on dialysis. Reports feeling well. Occasional cramping. Denies SOB, chest pain, or dizziness. EDW recently challenged. AVF functional; no reported issues. BP elevated. Patient increases anti- hypertensives at times. Continue to encourage low sodium intake. Review of Systems None reported. except above [...] pain 02/15/2023 pantoprazole 40 mg tablet,delayed release (/EC) 1 tablet by mouth twice a day [...] had catheter PD catheter placed 05/2018 at [facility], removed for peritonitis 11/2022 Anemia Assessment HEMOGLOBIN (G/DL) IN BLOOD g/dL 10.0 (10/02/23) 9.7 (09/25/23) 9.7 (09/18/23) 9.8 (09/11/23) 9.5 (09/04/23) PLATELETS 1000/mcL 262 (10/24/22) FERRITIN ng/mL 942 (09/18/23) 1394 (06/12/23) 1606 (03/22/23) 5007 (12/12/22) 3454 (11/28/22) TRANSFERRIN SAT% % 19 (09/18/23) 20 (08/14/23) 20 (07/17/23) 38 (06/12/23) 18 (05/17/23) Hemoglobin is at goal. Iron Saturation is [...] at goal. Intact PTH is at goal. Lapel Padder Blindstitch will adjust binders and vitamin D per protocol and continue to provide dietary education. Cardiovascular Assessment Blood pressures reviewed and are not at goal, see below. Intradialytic weight gains are appropriate. Estimated dry weight is appropriate. Labetalol increased, nifedipine replaced amlodipine BP's still elevated, will add spironolactone. Start at 25mg, may need to titrate up. Sent to her pharmacy ([facility]) today Transplant Status: Patient is not a candidate. Age, co-morbidities, nicotine dependence with COPD Resuscitation Status Stable dialysis No changes today ANA ROSA NP [ Signed And locked electronically On 10/09/2023 at 10:51:38 AM ] Transcribed: ANA ROSA ( 10/09/2023 ) documented in this encounter Plan of Treatment Not on file documented as of this encounter Visit Diagnoses Not on filedocumented in this encounter Care Teams Tool And Die Maker Apprentice Relationship Specialty Start Date End Date Tyrell Schneider MD [address] [place] [address] PCP - General 10/27/18 documented as of this encounter
--- OUTSIDE RECORDS SUMMARY | 2023-12-03 20:15 | XMS_ITS | Encounter Summary ---
Author Organization [facility] Address [address] [place] [address] Care Team Providers Care Substation Operator Transforming Name Role Phone Tyrell Schneider MD Primary Care Provider [phone] Encounter Details Date Type Department Care Team (Late st Contact Info) Description 09/11/2023 Treatment [facility] [place] [address] [place] [address] Gabriel Mena MD [address] [place] [address] Social History Tobacco Use Types Packs/Day Years Used Date Smoking Tobacco: Never Assessed Comments Unknown Sex and Gender Information Value Date Recorded Sex Assigned at Not on file Legal Sex Female 7:04 PM EDT Gender Identity Not on file Sexual Orientation Not on file documented as of this encounter Miscellaneous Notes * Dialysis Note - Gabriel Mena MD - 09/11/2023 2:44 PM CDT Date: Sep 11, 2023 Patient Name: Maricruz Vanegas : 1945 Chart #: [id number] Sex: F This patient was personally seen for a complete visit as part of routine monthly dialysis care. A review of the dialysis treatment, blood pressure, estimated dry weight and recent lab values was made. These were discussed with the patient and staff as necessary. TOOLS ADMINISTRATOR: Gabriel Mena MD LOCATION: [phone] SCHEDULE: -W-F 2nd Shift EDW: kg. DIALYZER: HD DURATION: NEEDLE SIZE: ANTICOAG: BATH: QB: ml/min QD: ml/min Subjective Tolerating dialysis well. Reports no trouble with access. 09/10: Stable. No new concerns. With nifedipine, BP's marginally better. Advanced Practitioner Subjective KITCHEN AND BATH DESIGNER 09/02/2023: Spoke with patient on dialysis. Reports feeling well. Occasional cramping. Denies SOB, chest pain, or dizziness. EDW recently challenged. AVF functional; no reported issues. BP elevated. Patient increases anti- hypertensives at times. Continue to encourage low sodium intake. KITCHEN AND BATH DESIGNER 07/17/2023: Patient seen on dialysis. Today she denies SOB, chest pain or cramping. Arm access working well. BP elevated. Leaving at EDW. Will continue to monitor weight. Review of Systems None reported. except above Problem List Description ICD9 Code ICD10 Code End stage renal disease 585.6 N18.6 Dependence on renal dialysis V45.11 Z99.2 Exam Respiratory - nl effort Cardiovascular - Regular rate. Edema - No leg edema. Access - [...] Anemia Assessment HEMOGLOBIN (G/DL) IN BLOOD g/dL 9.5 (09/04/23) 10.1 (08/28/23) 10.5 (08/21/23) 10.1 (08/14/23) 9.6 (08/07/23) PLATELETS 1000/mcL 262 (10/24/22) FERRITIN ng/mL 1394 [...] at goal. Intact PTH is at goal. Setter Cold Rolling Machine will adjust binders and vitamin D per protocol and continue to provide dietary education. Cardiovascular Assessment Blood pressures reviewed and are not at goal, see below. Intradialytic weight gains are appropriate. Estimated dry weight is appropriate. Labetalol increased, nifedipine replaced amlodipine BP's still elevated, will monitor and in 2 weeks if still elevated above goal I will trial spironolactone (ACEi and ARB she had rash and itching, respectively in past) Transplant Status: Patient is not a candidate. Age, co-morbidities, nicotine dependence with COPD Resuscitation Status Stable hemodialysis No change in dialysis plan Monitor BP, may try spironolactone next month Gabriel Mena MD [ Signed And locked electronically On 09/11/2023 at 02:46:25 PM ] Transcribed: Gabriel Mena ( 09/11/2023 ) documented in this encounter Plan of Treatment Not on file documented as of this encounter Visit Diagnoses Not on filedocumented in this encounter Care Teams Substation Operator Transforming Relationship Specialty Start Date End Date Tyrell Schneider MD [address] [place] [address] PCP - General 10/27/18 documented as of this encounter
--- OUTSIDE RECORDS SUMMARY | 2023-12-03 20:15 | XMS_ITS | Encounter Summary ---
Author Organization [facility] [place] Address [address] [place] [address] Care Team Providers Care Teller Supervisor Name Role Phone Tyrell Schneider MD Primary Care Provider [phone] Encounter Details Date Type Department Care Team (Late st Contact Info) Description 10/28/2023 Treatment [facility] [place] [address] [place] [address] Gabriel Mena MD [address] [place] [phone] Social History Tobacco Use Types Packs/Day Years Used Date Smoking Tobacco: Never Assessed Comments Unknown Sex and Gender Information Value Date Recorded Sex Assigned at Not on file Legal Sex Female 7:04 PM EDT Gender Identity Not on file Sexual Orientation Not on file documented as of this encounter Miscellaneous Notes * Dialysis Note - Gabriel Mena MD - 10/28/2023 2:26 PM CDT Date: Oct 28, 2023 Patient Name: Maricruz Vanegas : 1945 Chart #: [id number] Sex: F This patient was personally seen for a complete visit as part of routine monthly dialysis care. A review of the dialysis treatment, blood pressure, estimated dry weight and recent lab values was made. These were discussed with the patient and staff as necessary. Treatment Data for 10/28/2023 started at:10:41 AM Dialyzer: 160NRe Optiflux Na: 137 mEq/L Bicarb: 27 mEq/L Dialysate: 2.0 K, 2.5 Ca, 1.0 Mg, 100 Dextrose (G2251) Dialysate/Machine Temp (prescribed): 37 C Dialysate/Machine Temp (actual): 36 C BFR (prescribed): 450 BFR (actual): 450 Prescribed time: 02:45 EDW: 41.3 kg Access Type: Active (In Use):AVFistula-Standard/Left Upper Arm Pre Dialysis Vitals (for 10/28/2023 10:36 AM ) Pre BP (sit): 192/71 Pre Wt: 41.6 kg Temp: 98 F Post Dialysis Vitals (for 10/25/2023 1:35 PM ) Post BP (sit): 167/84 Post Wt: 40.2 kg Current Dialysis Vitals (for 10/28/2023 1:05 PM ) BP (sit): 170/60 AP(-) / RETAIL AND PROMOTIONS COORDINATOR: 208/225 Pulse: 58 Chairside data as of 10/28/2023 1:05 PM Last 3 Treatments 10/25/2023 10/23/2023 10/21/2023 EDW (kg) 41.3 41.3 41.3 Weight Pre (kg) 41.8 42 42.3 Weight Post (kg) 40.2 40.3 40.5 Dialytic Weight Loss (kg) -1.6 -1.7 -1.8 EDW Deviation (kg) -1.1 -1.0 -0.8 BP Sit Pre 162/60 170/63 192/85 BP Sit Post 167/84 162/52 163/69 UF Rate (mL/kg/hr) 14 15 16 Prescribed BFR 450 450 450 Average Delivered BFR 420 300 350 Prescribed Treatment Time 02:45 02:45 02:45 Actual Treatment Time 02:46 02:46 02:44 Last 3 Values 10/25/2023 09/13/2023 08/16/2023 Access Flow 157 548 353 Treatment Medication Orders Medication Sig Start Date End Date Heparin Sodium (Porcine) 1,000 Units/mL Systemic 2000 units IVP Every Treatment 02/15/2023 02/14/2024 Iron Sucrose (Venofer) 100 mg IVP 3X Week During Dialysis 10/21/2023 10/30/2023 Mircera 50 mcg IVP Every 2 weeks During Dialysis 10/28/2023 10/26/2024 Vitamin D (Calcitriol) Oral 0.5 mcg ORAL 3X Week During Dialysis 03/25/2023 03/20/2024 PLANE TENDER: Gabriel Mena MD LOCATION: [phone] SCHEDULE: -W- 2nd Shift EDW: kg. DIALYZER: HD DURATION: NEEDLE SIZE: ANTICOAG: BATH: QB: ml/min QD: ml/min Subjective Tolerating dialysis well. Reports no trouble with access. 10/27: She feels she is doing well currently but she is getting below her dry weight. She is surprised because she feels like she is eating better. She has no cramps with dialysis and BP has still been a little above goal so we have challenged her dry weight and she is achieving 40.5 Kg or even a little under this. Her AVF is working well with stable access flow. Advanced Practitioner Subjective CASTING HOUSE WORKER 10/09/2023: Patient seen on dialysis. Today she denies SOB, chest pain or cramping. Arm access working well. BP elevated. Leaving at EDW. Will continue to monitor weight. CASTING HOUSE WORKER 09/02/2023: Spoke with patient on dialysis. Reports [...] Exam Respiratory - Clear to auscultation bilaterally. nl effort Cardiovascular - Regular rate. Regular rhythm. Edema - Trace edema. stable Access - LUE AVF with good t/b, non-aneurysmal Medication List Medication Sig Start Date albuterol sulfate 2.5 mg/3 mL (0.083 %) solution for nebulization Take 1 vial as directed every four hours as needed 04/21/2018 Shania Low Dose Aspirin (aspirin) 81 mg tablet,delayed release (DR/EC) Take 1 tablet by mouth once aday calcium acetate(phosphat bind) 667 mg capsule Take 2 capsule by mouth three times a day with meals.for phosphorus control. 10/28/2023 clonidine HCl 0.1 mg tablet Take 2 [...] made. Treatment and Adequacy Assessment BUN mg/dL 73 (10/16/23) 46 (09/18/23) 40 (08/14/23) 45 (07/17/23) 56 (06/12/23) UREA NITROGEN (MG/DL) IN SER/PLAS - POST DIALYSIS mg/dL 17 (10/16/23) 10 (09/18/23) 8 (08/14/23) 8 (07/17/23) 10 (06/12/23) URR % 77 (10/16/23) 78 (09/18/23) 80 (08/14/23) 82 (07/17/23) 82 (06/12/23) spKt/V Gotch 1.81 (10/16/23) 1.78 (09/18/23) 1.78 (08/14/23) 1.96 (07/17/23) 2 (06/12/23) eKdrt/V 1.45 (10/16/23) 1.43 (09/18/23) 1.42 (08/14/23) 1.56 (07/17/23) 1.59 (06/12/23) spKt/V (Daugirdas II) 1.8000 (10/16/23) 1.7800 (09/18/23) 1.7800 (08/14/23) 1.9600 (07/17/23) 1.9800 (06/12/23) Dialysis is adequate. Achieves prescribed time - Yes Achieves prescribed frequency - Yes Continue current prescription. Time 2h45m ok, very petite and fluid gains are low Vascular Access Assessment Type of access: Fistula Had AVF placed in Jan 2018, mature and working well. Never had catheter PD catheter placed 05/2018 [place] [facility], removed for peritonitis 11/2022 Anemia Assessment HEMOGLOBIN (G/DL) IN BLOOD g/dL 10.8 (10/23/23) 10.5 (10/16/23) 10.3 (10/09/23) 10.0 (10/02/23) 9.7 (09/25/23) FERRITIN ng/mL 942 (09/18/23) 1394 (06/12/23) 1606 (03/22/23) 5007 (12/12/22) 3454 (11/28/22) TRANSFERRIN SAT% % 27 (10/16/23) 19 (09/18/23) 20 (08/14/23) 20 (07/17/23) 38 (06/12/23) Hemoglobin is at goal. Iron Saturation is at goal. Ferritin is at goal. Will adjust ELA and intravenous iron per protocol. Nutritional and Metabolic Assessment ALBUMIN (G/DL) g/dL 3.4 (10/16/23) 3.4 (09/18/23) 3.3 (08/14/23) 3.5 (07/17/23) 3.8 (06/12/23) Sodium mEq/L 134 (10/16/23) 136 (09/18/23) 137 (08/14/23) 135 (07/17/23) 138 (06/12/23) POTASSIUM (MMOL/L) IN SER/PLAS mEq/L 5.1 (10/23/23) 6.6 (10/16/23) 5.6 (09/18/23) 4.4 (08/14/23) 4.9 (07/17/23) BICARBONATE (CO2) mEq/L 19 (10/16/23) 22 (09/18/23) 21 (08/14/23) 26 (07/17/23) 23 (06/12/23) 25 OH VITAMIN D ng/mL 21.3 (12/12/22) Albumin is below goal. Encourage high-biological value protein intake. Oral Nutritional Supplement program. Potassium is at goal. Encourage low potassium diet. Bicarbonate is below goal. Increase bicarbonate in dialysate. Bone and Mineral Metabolism Assessment CALCIUM mg/dL 8.4 (10/16/23) 8.8 (09/18/23) 8.6 (08/14/23) 9.2 (07/17/23) 8.9 (06/12/23) CALCIUM (MG/DL) CORRECTED FOR ALBUMIN IN SER/PLAS mg/dL 8.9 (10/16/23) 9.3 (09/18/23) 9.2 (08/14/23) 9.6 (07/17/23) 9.1 (06/12/23) PHOSPHATE (MG/DL) IN SER/PLAS mg/dL 5.9 (10/16/23) 4.8 (09/18/23) 4.5 (08/14/23) 4.1 (07/17/23) 6.6 (06/12/23) CALCIUM PHOSPHORUS PRODUCT, COR 53 (10/16/23) 45 (09/18/23) 41 (08/14/23) 39 (07/17/23) 60 (06/12/23) IPTH pg/mL 323 (09/18/23) 335 (06/12/23) 292 (04/17/23) 479 (03/20/23) 376 (12/12/22) Corrected Calcium is at goal. Phosphorous is above goal. Intact PTH is at goal. Escort Blind will adjust binders and vitamin D per protocol and continue to provide dietary education. Phos generally controlled, will not change binder Cardiovascular Assessment Blood pressures reviewed and are not at goal, see below. Intradialytic weight gains are appropriate. Estimated dry weight is too high, will decrease. Continue current BP meds Challenge EDW and reduce to 40.5 Kg Transplant Status: Patient is not a candidate. Age, co-morbidities, nicotine dependence with COPD Resuscitation Status Stable dialysis Lower EDW as above, challenging EDW Gabriel Mena MD [ Signed And locked electronically On 10/28/2023 at 02:28:28 PM ] Transcribed: Gabriel Mena ( 10/28/2023 ) documented in this encounter Plan of Treatment Not on file documented as of this encounter Visit Diagnoses Not on filedocumented in this encounter Care Teams Teller Supervisor Relationship Specialty Start Date End Date Tyrell Schneider MD [address] [place] [address] PCP - General 10/27/18 documented as of this encounter
--- OUTSIDE RECORDS SUMMARY | 2023-12-03 20:15 | XMS_ITS | Encounter Summary ---
Author Organization [facility] Address [address] [place] [address] Care Team Providers Care Room Service Food Server Name Role Phone Tyrell Schneider MD Primary Care Provider [phone] Encounter Details Date Type Department Care Team (Late st Contact Info) Description 08/28/2023 Orders Only [facility] [place] [address] [place] [address] Gabriel Mena MD [address] [place] [address] Social History Tobacco Use Types [...] Priority Date/Time Associated Diagnosis Comments HEMATOLOGY Routine 08/28/2023 documented in this encounter Results * (ABNORMAL) HEMATOLOGY (08/28/2023) Hemoglobin 10.1(L) 12.0 - 16.0 g/dL [facility] Hemoglobin x 3 30.3(L) 36.0 - 48.0 % [facility] 08/28/2023 08/29/2023 9:5 0 AM CDT Narrative [facility] - 08/29/2023 Unless otherwise specified, test(s) performed at: [facility], [address] [facility], [place] [address] ENDOSCOPE TECHNICIAN: Eze Park M.D., Ph.D For any questions, please call customer service at FREQUENCY:OTHER Resulting Agency Comment Specimen source: Blood us Gabriel Mena MD LAB BLOOD ORDERABLES Final Re sult [facility] See order comments or contact performing lab Unknown, [place] documented in this encounter Visit Diagnoses Not on filedocumented in this encounter Care Teams Room Service Food Server Relationship Specialty Start Date End Date Tyrell Schneider MD [address] [place] [address] PCP - General 10/27/18 documented as of this encounter
--- OUTSIDE RECORDS SUMMARY | 2023-12-03 20:15 | XMS_ITS | Encounter Summary ---
Author Organization [facility] [place] Address [address] [facility] [address] [place] [address] Care Team Providers Care Mission Planner Name Role Phone Tyrell Schneider MD Primary Care Provider [phone] Reason for Visit * Reason Comments Med Refill Encounter Details Date Type Department Care Team (Late st Contact Info) Description 09/26/2023 Refill [facility] [place] [address] [facility] [address] [place] [address] Gabriel Mena MD [address] [place] [address] Social History Tobacco Use Types Packs/Day Years Used Date Smoking Tobacco: Never Assessed Comments Unknown Sex and Gender Information Value Date Recorded Sex Assigned at Not on file Legal Sex Female 7:04 PM EDT Gender Identity Not on file Sexual Orientation Not on file documented as of this encounter Miscellaneous Notes * Telephone Encounter - Emma Sauceda RN - 09/27/2023 9:15 AM CDT Faxed to [facility] documented in this encounter Plan of Treatment Not on file documented as of this encounter Visit Diagnoses Not on filedocumented in this encounter Care Teams Mission Planner Relationship Specialty Start Date End Date Tyrell Schneider MD [address] [place] [address] PCP - General 10/27/18 documented as of this encounter
--- OUTSIDE RECORDS SUMMARY | 2023-12-03 20:15 | XMS_ITS | Encounter Summary ---
Author Organization [facility] Address [address] [place] [address] Care Team Providers Care Sole Seamer Name Role Phone Tyrell Schneider MD Primary Care Provider [phone] Encounter Details Date Type Department Care Team ([facility] st Contact Info) Description 11/08/2023 Treatment [facility] [address] [place] [address] Ana Rosa APRN-KITCHEN HELPER [address] [facility] [address] [place] [phone] Social History Tobacco Use Types Packs/Day Years Used Date Smoking Tobacco: Never Assessed Comments Unknown Sex and Gender Information Value Date Recorded Sex Assigned at Not on file Legal Sex Female 7:04 PM EDT Gender Identity Not on file Sexual Orientation Not on file documented as of this encounter Miscellaneous Notes * Dialysis Note - Ana Rosa APRN-KITCHEN HELPER - 11/08/2023 3:30 PM CDT Date: Nov 08, 2023 Patient Name: Maricruz Vanegas : 1945 Chart #: [id number] Sex: F This patient was personally seen for a complete visit as part of routine monthly dialysis care. A review of the dialysis treatment, blood pressure, estimated dry weight and recent lab values was made. These were discussed with the patient and staff as necessary. Treatment Data for 11/11/2023 started at:10:59 AM Dialyzer: 160NRe Optiflux Na: 137 mEq/L Bicarb: 27 mEq/L Dialysate: 2.0 K, 2.5 Ca, 1.0 Mg, 100 Dextrose (G2251) Dialysate/Machine Temp (prescribed): 37 C Dialysate/Machine Temp (actual): 36 C BFR (prescribed): 450 BFR (actual): n/a Prescribed time: 02:45 EDW: 40.5 kg Access Type: Active (In Use):AVFistula-Standard/Left Upper Arm Pre Dialysis Vitals (for 11/11/2023 10:41 AM ) Pre BP (sit): 187/93 Pre Wt: 42 kg Temp: 97.2 F Post Dialysis Vitals (for 11/11/2023 1:45 PM ) Post BP (sit): 168/68 Post Wt: 39.5 kg Chairside data as of 11/11/2023 1:45 PM Last 3 Treatments 11/11/2023 11/08/2023 11/06/2023 EDW (kg) 40.5 40.5 40.5 Weight Pre (kg) 42 42.2 42.4 Weight Post (kg) 39.5 40.9 40.9 Dialytic Weight Loss (kg) -2.5 -1.3 -1.5 EDW Deviation (kg) -1.0 0.4 0.4 BP Sit Pre 187/93 185/83 157/57 BP Sit Post 168/68 185/72 175/62 UF Rate (mL/kg/hr) 23 11 13 Prescribed BFR 450 450 450 Average Delivered BFR 450 430 450 Prescribed Treatment Time 02:45 02:45 02:45 Actual Treatment Time 02:44 02:49 02:47 Last 3 Values 10/25/2023 09/13/2023 08/16/2023 Access Flow [phone] Treatment Medication Orders Medication Sig Start Date End Date Heparin Sodium (Porcine) 1,000 Units/mL Systemic 2000 units IVP Every Treatment 02/15/2023 02/14/2024 Vitamin D (Calcitriol) Oral 0.5 mcg ORAL 3X Week During Dialysis 03/25/2023 03/20/2024 GROCERY CLERK CHECKING: Gabriel Mena MD LOCATION: [phone] SCHEDULE: -W- 2nd Shift EDW: kg. DIALYZER: [...] with stable access flow. Advanced Practitioner Subjective BONDED STRAND OPERATOR 11/08/2023: Spoke with patient on dialysis. She wrote charge nurse a letter asking if she could be back on PD. Patient was believing that her coughing was bothering people. She felt that patients were being moved d/t her. I spent a long time reassuring her that was not the case. I explained the schedules and how they change regularly. She would like to discuss further if PD is still an option. Denies SOB, chest pain, or dizziness. AVF functional; no reported issues. BP elevated. Continue to encourage low sodium intake. Continue to offer support. Review of Systems None reported. except above [...] had catheter PD catheter placed 05/2018 at [facility], removed for peritonitis 11/2022 Anemia Assessment HEMOGLOBIN (G/DL) IN BLOOD g/dL 11.7 (11/08/23) 11.6 (10/30/23) 10.8 (10/23/23) 10.5 (10/16/23) 10.3 (10/09/23) FERRITIN ng/mL 942 (09/18/23) 1394 (06/12/23) 1606 [...] above goal. Intact PTH is at goal. Shrimp Cleaner will adjust binders and vitamin D per protocol and continue to provide dietary education. Phos generally controlled, will not change binder Cardiovascular Assessment Blood pressures reviewed and are not at goal, see below. Intradialytic weight gains are appropriate. Estimated dry weight is appropriate. Continue current BP meds Challenge EDW and reduce to 40.5 Kg Transplant Status: Patient is not a candidate. Age, co-morbidities, nicotine dependence with COPD Resuscitation Status Stable dialysis Continue to challenge EDW Continue to offer support ANA ROSA NP [ Signed And locked electronically On 11/11/2023 at 03:49:30 PM ] Transcribed: ANA ROSA ( 11/11/2023 ) documented in this encounter Plan of Treatment Not on file documented as of this encounter Visit Diagnoses Not on filedocumented in this encounter Care Teams Sole Seamer Relationship Specialty Start Date End Date Tyrell Schneider MD [address] [place] [address] PCP - General 10/27/18 documented as of this encounter
--- OUTSIDE RECORDS SUMMARY | 2023-12-03 20:15 | XMS_ITS | Encounter Summary ---
Author Organization [facility] Address [address] [facility] [address] [place] [address] Care Team Providers Care Biomedical Scientist Name Role Phone Tyrell Schneider MD Primary Care Provider [phone] Encounter Details Date Type Department Care Team (Late st Contact Info) Description 10/23/2023 Orders Only [facility] [place] [address] [place] [address] Gabriel Mena MD [address] [place] [address] Social History Tobacco Use Types [...] Priority Date/Time Associated Diagnosis Comments HEMATOLOGY Routine 10/23/2023 CHEMISTRY Routine 10/23/2023 documented in this encounter Results * [facility] (10/23/2023) Potassium 5.1 3.5 - 5.1 mEq/L [facility] 10/23/2023 10/24/2023 5:1 8 AM CDT Narrative [facility] - 10/24/2023 Unless otherwise specified, test(s) performed at: [facility], [address] [place] [id number] COST ANALYST: Eze Park M.D., Ph.D For any questions, please call customer service at FREQUENCY:OTHER Resulting Agency Comment Specimen source: Serum Gabriel Mena MD LAB BLOOD ORDERABLES Final Re sult Performing Organization Address [facility] de Phone Number [facility] See order comments or contact performing lab Unknown, [place] * (ABNORMAL) HEMATOLOGY (10/23/2023) Hemoglobin 10.8(L) 12.0 - 16.0 g/dL [facility] Hemoglobin x 3 32.4(L) 36.0 - 48.0 % [facility] 10/23/2023 10/24/2023 5:2 8 AM CDT Narrative [facility] - 10/24/2023 Unless otherwise specified, test(s) performed at: [facility], [address] [place] [id number] COST ANALYST: Eze Park M.D., Ph.D For any questions, please call customer service at FREQUENCY:OTHER Resulting Agency Comment Specimen source: Blood Gabriel Mena MD LAB BLOOD ORDERABLES Final Re sult Performing Organization Address [facility] de Phone Number [facility] See order comments or contact performing lab Unknown, [place] documented in this encounter Visit Diagnoses Not on filedocumented in this encounter Care Teams Biomedical Scientist Relationship Specialty Start Date End Date Tyrell Schneider MD [address] [facility] [address] PCP - General 10/27/18 documented as of this encounter
--- OUTSIDE RECORDS SUMMARY | 2023-12-03 20:16 | XMS_ITS | Referral Summary ---
Author Organization [facility] Address [address] [place] [address] Care Team Providers Care Band And Cuff Cutter Name Role Phone Unavailable Primary Care Provider Unavailabl e Source Comments Patient records contain information from all sites at [facility]. For routine questions regarding patient records, call [phone] during business hours, M-F 8:00 AM - 5:00 PM Central Time. Record requests for emergency care only can be directed to [phone] at any time.[facility] Encounters Date Type Department Care Team Description 11/06/2023 Refill Division of General Internal Medicine in [place], [place] [address] [place] [phone] Daniel Ingram M.D. Med Refill from Last 3 Months [...] Itching 01/09/2010 itching Niacin Itching 05/13/2006 itch [place] Rash 05/16/2010 [place] 8-Hwt-Ddo-Fish Oil Other (see comments) 01/09/2010 itching Pioglitazone Rash 10/11/2020 Itchy rash Pravastatin Other (see comments),Myalgia 01/22/2012 Simvastatin Other (see comments) 04/04/2016 Leg pain Tolerating every other day. Tetracycline Other (see comments) 05/09/2015 bumps Medications fluorometholone (FML) 0.1 % ophthalmic suspension Administer 1 drop into the left eye daily. 7 Active acetaminophen (TYLENOL) 325 mg tablet Take 1 tablet by mouth. 1 Active albuterol 2.5 mg /3 mL nebulizer solution Inhale 1 vial every 4 (four) hours. 9 Active amLODIPine (NORVASC) 10 mg tablet Take 1 tablet by mouth. 6 Active aspirin 81 mg capsule Daily Active blood sugar diagnostic (Contour Test Strips) strips TEST TWO TIMES A DAY . 5 Active blood-glucose meter kit Dispense glucose meter, test strips and lancets covered by the patient insurance. Test 2 times per day. 3 Active calcitRIOL (ROCALTROL) 0.25 mcg capsule Daily Active calcium acetate,phospha t bind, (PHOSLO) 667 mg (169 mg calcium) capsule TAKE 1 CAPSULE BY MOUTH THREE TIMES DAILY WITH MEALS DIRECTED 9 Active celecoxib (CeleBREX) 200 mg capsule Take 1 capsule by mouth 2 (two) times a day. 6 Active cetirizine (ZyrTEC) 10 mg tablet Take 1 tablet by mouth daily. 7 Active cholecalciferol , vitamin D3, 25 mcg (1,000 Unit) tablet Take 1 tablet by mouth 2 (two) times a day. 6 Active clobetasoL (TEMOVATE) 0.05 % cream Apply topically. 1 Active cloNIDine (CATAPRES) 0.2 mg tablet Take 1 tablet by mouth 2 (two) times a day. 6 Active furosemide (LASIX) 40 mg tablet Take 1 tablet by mouth every morning. 1 Active gabapentin (NEURONTIN) 100 mg capsule 500mg oral at bedtime. 2 Active glipiZIDE (GLUCOTROL XL) 10 mg 24 hr tablet Take 20 mg by mouth. 9 Active hyoscyamine (ANASPAZ,LEVSIN ) 0.125 mg tablet Take by mouth. 7 Active ipratropium-alb uteroL (DUONEB) 0.5-2.5 mg/3 mL nebulizer solution Inhale 3 mL every 6 (six) hours as needed. 1 Active labetaloL (NORMODYNE) 300 mg tablet Take 1 tablet by mouth. 9 Active lidocaine-prilo adrian (EMLA) 2.5-2.5 % cream APPLY SMALL AMOUNT TO ACCESS SITE (AVF) 1 TO 2 HOURS BEFORE DIALYSIS. COVER WITH OCCLUSIVE DRESSING (SARAN WRAP) 9 Active metFORMIN (GLUCOPHAGE) 1,000 mg tablet Take 1 tablet by mouth 2 (two) times a day. 6 Active white petrolatum-mine ral oiL (Refresh P.M.) 57.3-42.5 % ointment 0.25-0.5 inches daily as needed. 7 Active nicotine polacrilex (NICORETTE) 4 mg gum Take 4 mg by mouth. 1 Active oxyCODONE (ROXICODONE) 5 mg immediate release tablet One oral twice daily as needed. 2 Active polyethylene glycol (MIRALAX) 17 gram/dose oral powder Take 1 packet by mouth. 9 Active prednisoLONE acetate (PRED FORTE) 1 % ophthalmic suspension INSTILL 1 DROP INTO THE LEFT EYE ONCE DAILY 7 Active repaglinide (PRANDIN) 1 mg tablet Take 1 tablet by mouth. 1 Active sennosides (SENOKOT) 8.6 mg tablet Take by mouth. 9 Active simvastatin (ZOCOR) 20 mg tablet Every 48 Hours 6 Active sorbitoL 70 % solution 30 mL. 1 Active triamcinolone (KENALOG) 0.1 % cream Apply topically. 1 Active nicotine (NICODERM CQ) 14 mg/24 hr patch Apply 14 mg patch daily for four to six weeks, then taper to 7 mg for two to six weeks until off. 14 patch 3 2 Active nicotine (Nicoderm CQ) 7 mg/24 hr patch Apply 21 mg patch daily for 4-10 weeks, taper to 14 mg patch for 4-10 weeks, then taper to 7 mg patch for 4-10 weeks until off. 14 patch 5 2 Active nicotine (Nicoderm CQ) 14 mg/24 hr patch Apply 21 mg patch daily for 4-10 weeks, taper to 14 mg patch for 4-10 weeks, then taper to 7 mg patch for 4-[address] on file. 14 patch 5 2 Active nicotine (Nicoderm CQ) 21 mg/24 hr patch Apply 21 mg patch daily for 4-10 weeks, taper to 14 mg patch for 4-10 weeks, then taper to 7 mg patch for 4-[address] on file. 14 patch 5 2 Active neomycin-polymy lance B-dexameth (MAXITROL) 3.5 mg/g-10,000 unit/g-0.1 % ophthalmic ointment Instill a 1/4 inch ribbon into the left eye four times daily* 3 Active mupirocin (BACTROBAN) 2 % ointment APPLY TO PD EXIT SITE DAILY* 3 Active moxifloxacin (VIGAMOX) 0.5 % ophthalmic solution Administer 1 drop into the left eye. 3 Active erythromycin (ROMYCIN) 5 mg/gram (0.5 %) ophthalmic ointment Apply to left eye 4 (four) times a day. 3.5 g 5 4 Active polyvinyl alcohol (Artificial Tears, polyvin alc,) 1.4 % ophthalmic solution Administer 1 drop into both eyes every hour while awake. 15 mL 11 4 Active dextran 70-hypromellose , PF, (GENTEAL TEARS) 0.1-0.3 % ophthalmic solution Administer 1 drop into both eyes every hour while awake. 36 each 11 4 Active Active Problems Problem Noted Date Diagnosed Date Diabetes Mellitus Type 2 04/25/2021 Overview (04/25/2021): A1C 7.0 8 Spinal Stenosis Lumbosacral Region 04/25/2021 Overview (04/25/2021): Added automatically from request for surgery [id number] Major Depressive Disorder, Recurrent, Unspecifie d 03/22/2021 Anemia In Chronic Kidney Disease 04/18/2018 [...] Answer Date Recorded Nutrition: EVOO Fat Source 13 07/25 Nutrition: Servings of Fruits/Vegetables per Day Not on file 07/25/2018 Dental Answer Date Recorded Dental: Regular Dentist Unknown 10/25/19 21 Comments Unknown Sex and Gender Information Value Date Recorded Sex Assigned at Not on file Legal Sex Female 10:27 PM BIOMETRICS INSTRUCTOR Gender Identity Female 01/08/2022 2:47 PM BIOMETRICS INSTRUCTOR Sexual Orientation Straight 01/08/2022 2: 47 PM BIOMETRICS INSTRUCTOR Last Filed Vital Signs Vital Sign Reading [...] on file Medical Devices Implanted Type Area Retail Sales Consultant Device Identifier Shelf Expiration Date Model / Serial / Lot Cornea - Orozco [id number] Implanted:Qty: 1 on 05/13/2015 Ocular (Eye) Implant Other/Legacy - See Implant Description [facility] Description:Device Manufactu rer - [facility]. Body Location - Other. Left. Device Status Text - [id number]. Cornea - [id number] [id number] Implanted:Qty: 1 on 06/10/2015 Ocular (Eye) Implant Other/Legacy - See Implant Description [facility] Description:Device Manufactu rer - [facility]. Body Location - Other. Left. Device Status Text - [id number]. Procedures Procedure Name Priority Date/Time Associated Diagnosis Comments OPHTHALMOLOGY IMAGE EXAM Routine 08/22/2023 12:00 AM CDT HEMOGLOBIN A1C, B Routine 05/13/2015 11: 31 PM CDT CREATININE WITH EGFR, S/P Routine 05/11/2015 11:42 AM CDT from Last 3 Months or Most Recently Relevant to Health Maintenance Results * Eyes Color-Ophthalmology Image Exam (08/22/2023 12:00 AM CDT) David [facility] - 08/22/2023 2:17 PM CDT This order has been created and auto-finalized to support the import of images acquired without order. The clinical documentation to support these images can be found on the encounter that produced images. us Provider Not In System IMG NON RAD IMAGING PROCE DURES Final Result [facility] NA * (ABNORMAL) Hemoglobin A1c (05/13/2015 11:31 PM CDT) Hemoglobin A1c, B 8.1(H) 4.0 - 6.0 % [facility] 05/13/2015 11:3 1 PM CDT 05/13/2015 11:31 PM CDT Frantz Lee M.D. LAB BLOOD ADD-ON Final Resu lt Performing Organization Address City/[facility]/ZIP Co de Phone Number [facility] [address] * (ABNORMAL) Creatinine with Estimated GFR (MDRD) (05/11/2015 11:42 AM CDT) Creatinine 1.3(H) 0.6 - 1.1 MG/DL [facility] eGFR Non-Black/Afric an [place] 41(L) >60 ML/MIN/BSA [facility] eGFR-Black/Afri can [place] 49(L) >60 ML/MIN/BSA [facility] 05/11/2015 11:4 2 AM CDT 05/11/2015 11:42 AM CDT Frantz Lee M.D. LAB BLOOD ADD-ON Final Resu lt Performing Organization Address City/[facility] Co de Phone Number [facility] [address] from Last 3 Months or Most Recently Relevant to Health Maintenance Insurance [facility] MEDICARE
--- OUTSIDE RECORDS SUMMARY | 2023-12-03 20:16 | XMS_ITS | Encounter Summary ---
Author Organization [facility] Address [address] [place] [address] Care Team Providers Care Blanker Press Operator Name Role Phone Unavailable Primary Care Provider Unavailabl e Encounter Details Date Type Department Care Team (Late st Contact Info) Description 07/18/2015 Historical Ophthalmology RST OPH Eva Heard M.D. [address] [facility] 200 [place] [address] Social History Tobacco Use Types Packs/Day Years Used Date Smoking Tobacco: Never Assessed Comments Unknown Sex and Gender Information Value Date Recorded Sex Assigned at Not on file Legal Sex Female 10:27 PM SENIOR PARTNER Gender Identity Female 01/08/2022 2:47 PM SENIOR PARTNER Sexual Orientation Straight 01/08/2022 2: 47 PM SENIOR PARTNER documented as of this encounter Progress Notes [...] intra-op intravitreal vancomycin and ceftazadime Seen with SOFTWARE TEST SPECIALIST today. 06/13/15: Paul negative. Well formed chamber, with normal IOP. Graft and sutures intact. Suture reaction most significant inferiorly, will continue pred forte TID and consider suture removal inferiorly at next visit. 06/16/15: Paul negative, formed chamber, suture reaction on all original graft sutures, no loose sutures, discussed with LJM, continue current drops and return next week when SOFTWARE TEST SPECIALIST here. Seen with SCB today. 06/20/15: Paul negative, formed chamber, suture reaction decreased, seen with SOFTWARE TEST SPECIALIST, M Parasol occluder placed in left lower puncu, expires 2018, LOT [id number] 06/27/15: Paul negative, increased edema over snowman [...] Monocular status CDM Reports - EYEGEN Id: [id number] Status: Fnl documented in this encounter Plan of Treatment Not on file documented as of this encounter Visit Diagnoses Not on filedocumented in this encounter
--- OUTSIDE RECORDS SUMMARY | 2023-12-03 20:16 | XMS_ITS ---
Author Organization [facility] Address [address] [place] [address] Care Team Providers Care Pharmacy Assistant Name Role Phone Unavailable Unavailable Unavailable Surgery Details Not on file Complications Check Surgery Details section. Procedure Estimated Blood Loss Check Surgery Details section. Procedure Findings Check Surgery Details section. Procedure Specimens Taken Check Surgery Details section.
--- OUTSIDE RECORDS SUMMARY | 2023-12-03 20:16 | XMS_ITS | Encounter Summary ---
Author Organization [facility] Address [address] [place] [address] Care Team Providers Care Cardiology Technician Name Role Phone Unavailable Primary Care Provider Unavailabl e Encounter Details Date Type Department Care Team (Late st Contact Info) Description 07/04/2015 Historical Ophthalmology RST OPH Eva Heard M.D. [address] [facility] 200 [place] [address] Social History Tobacco Use Types Packs/Day Years Used Date Smoking Tobacco: Never Assessed Comments Unknown Sex and Gender Information Value Date Recorded Sex Assigned at Not on file Legal Sex Female 10:27 PM INSPECTOR SEMICONDUCTOR WAFER Gender Identity Female 01/08/2022 2:47 PM INSPECTOR SEMICONDUCTOR WAFER Sexual Orientation Straight 01/08/2022 2: 47 PM INSPECTOR SEMICONDUCTOR WAFER documented as of this encounter Progress Notes * Eva Heard M.D. - 07/04/2015 9:39 AM CDT Eye Postoperative MULTI-VISIT DOCUMENT This document contains multiple patient visits and is available for review in Document Viewer. CDM Reports - EYEPO Id: [id number] Status: Fnl documented in this encounter Plan of Treatment Not on file documented as of this encounter Visit Diagnoses Not on filedocumented in this encounter
--- OUTSIDE RECORDS SUMMARY | 2023-12-03 20:16 | XMS_ITS | Encounter Summary ---
Author Organization [facility] Address [address] [place] [address] Care Team Providers Care Internal Recruiter Name Role Phone Unavailable Primary Care Provider Unavailabl e Reason for Visit * Reason Comments Med Refill Encounter Details Date Type Department Care Team ([facility] st Contact Info) Description 11/06/2023 Refill Division of General Internal Medicine in [place], [place] [address] [place] [phone] Daniel Ingram M.D. [address] [place] [phone] Med Refill Social History Tobacco Use Types [...] on file Legal Sex Female 10:27 PM DIRECTOR OF CATERING Gender Identity Female 01/08/2022 2:47 PM DIRECTOR OF CATERING Sexual Orientation Straight 01/08/2022 2: 47 PM DIRECTOR OF CATERING documented as of this encounter Plan of Treatment Not on file documented as of this encounter Visit Diagnoses Not on filedocumented in this encounter
--- OUTSIDE RECORDS SUMMARY | 2023-12-03 20:16 | XMS_ITS | Encounter Summary ---
Author Organization [facility] Address [address] [place] [address] Care Team Providers Care Police Officer Crime Prevention Name Role Phone Unavailable Primary Care Provider Unavailabl e Encounter Details Date Type Department Care Team (Late st Contact Info) Description 03/12/2016 Historical Ophthalmology RST OPH Daniel Clements M.D. [address] [place] [phone] Social History Tobacco Use Types Packs/Day Years Used Date Smoking Tobacco: Never Assessed Comments Unknown Sex and Gender Information Value Date Recorded Sex Assigned at Not on file Legal Sex Female 10:27 PM BUDGET COORDINATOR Gender Identity Female 01/08/2022 2:47 PM BUDGET COORDINATOR Sexual Orientation Straight 01/08/2022 2: 47 PM BUDGET COORDINATOR documented as of this encounter Progress Notes * Daniel Clements M.D. - 03/12/2016 1:34 PM CST Eye General CHIEF COMPLAINT check up HISTORY OF PRESENT ILLNESS Here for check up and photos. Feels vision is at times better than last visit; other times worse; fluxuates throughout the day. Currently denies any pain. Pain on the way here; 10. Notes 3 nights ago; left eye was [...] with Dr. Payton. RTC in May with Lasha, martha with any significant pain, worsening vision, worsening concerns. Must come in when INDEPENDENT AGENT MUSIC EDUCATION is here (preferably as COS staff). Use [...] right eye CDM Reports - EYEGEN Id: [id number] Status: Fnl documented in this encounter Plan of Treatment Not on file documented as of this encounter Visit Diagnoses Not on filedocumented in this encounter
--- OUTSIDE RECORDS SUMMARY | 2023-12-03 20:16 | XMS_ITS | Encounter Summary ---
Author Organization [facility] Address [address] [place] [address] Care Team Providers Care Test And Turn Up Technician Name Role Phone Unavailable Primary Care Provider Unavailabl e Encounter Details Date Type Department Care Team (Late st Contact Info) Description 05/12/2015 Historical Ophthalmology RST OPH Frantz Lee M.D. [address] [place] [phone] Social History Tobacco Use Types Packs/Day Years Used Date Smoking Tobacco: Never Assessed Comments Unknown Sex and Gender Information Value Date Recorded Sex Assigned at Not on file Legal Sex Female 10:27 PM RETAIL MERCHANDISER TECHNICIAN Gender Identity Female 01/08/2022 2:47 PM RETAIL MERCHANDISER TECHNICIAN Sexual Orientation Straight 01/08/2022 2: 47 PM RETAIL MERCHANDISER TECHNICIAN documented as of this encounter Progress Notes [...] left eye CDM Reports - EYEGEN Id: [id number] Status: Fnl documented in this encounter Plan of Treatment Not on file documented as of this encounter Visit Diagnoses Not on filedocumented in this encounter
--- OUTSIDE RECORDS SUMMARY | 2023-12-03 20:16 | XMS_ITS | Encounter Summary ---
Author Organization [facility] Address [address] [place] [address] Care Team Providers Care Computer System Validation Specialist Name Role Phone Unavailable Primary Care Provider Unavailabl e Encounter Details Date Type Department Care Team (Late st Contact Info) Description 05/20/2015 Historical Ophthalmology RST OPH Eva Heard M.D. [address] [facility] 200 [place] [address] Social History Tobacco Use Types Packs/Day Years Used Date Smoking Tobacco: Never Assessed Comments Unknown Sex and Gender Information Value Date Recorded Sex Assigned at Not on file Legal Sex Female 10:27 PM SIGHTSEEING GUIDE Gender Identity Female 01/08/2022 2:47 PM SIGHTSEEING GUIDE Sexual Orientation Straight 01/08/2022 2: 47 PM SIGHTSEEING GUIDE documented as of this encounter Progress Notes [...] Saturday. s/p intra-op subconj Dex Seen with WAXER OPERATOR today Plan: Alternate every 2 hours with [...] right eye CDM Reports - EYEGEN Id: [id number] Status: Fnl documented in this encounter Plan of Treatment Not on file documented as of this encounter Visit Diagnoses Not on filedocumented in this encounter
--- OUTSIDE RECORDS SUMMARY | 2023-12-03 20:16 | XMS_ITS | Encounter Summary ---
Author Organization [facility] Address [address] [place] [address] Care Team Providers Care Us Administrative Law Judge Name Role Phone Unavailable Primary Care Provider Unavailabl e Encounter Details Date Type Department Care Team (Late st Contact Info) Description 05/24/2015 Historical Ophthalmology RST OPH Eva Heard M.D. [address] [facility] 200 [place] [address] Social History Tobacco Use Types Packs/Day Years Used Date Smoking Tobacco: Never Assessed Comments Unknown Sex and Gender Information Value Date Recorded Sex Assigned at Not on file Legal Sex Female 10:27 PM BULK FILLER Gender Identity Female 01/08/2022 2:47 PM BULK FILLER Sexual Orientation Straight 01/08/2022 2: 47 PM BULK FILLER documented as of this encounter Progress [...] Saturday. s/p intra-op subconj Dex Seen with YARD COUPLER today Plan: Alternate every 2 hours with [...] diabetic retinopathy, right eye CDM Reports - EYEPrecision Biopsy Id: [id number] Status: Fnl documented in this encounter Plan of Treatment Not on file documented as of this encounter Visit Diagnoses Not on filedocumented in this encounter
--- OUTSIDE RECORDS SUMMARY | 2023-12-03 20:16 | XMS_ITS | Clinical Summary ---
Author Organization [facility] Address [address] [place] [address] Care Team Providers Care Shoe Puller Name Role Phone Unavailable Primary Care Provider Unavailabl e Source Comments Patient records contain information from all sites at [facility]. For routine questions regarding patient records, call [phone] during business hours, M-F 8:00 AM - 5:00 PM Central Time. Record requests for emergency care only can be directed to [phone] at any time.[facility] Allergies Active Allergy Reactions Criticality Noted Date [...] Itching 01/09/2010 itching Niacin Itching 05/13/2006 itch [place] Rash 05/16/2010 [place] 3-Eye-Yqb-Fish Oil Other (see comments) 01/09/2010 itching Pioglitazone [...] Type 2 04/25/2021 Overview (04/25/2021): A1C 7.0 09/15 Spinal Stenosis Lumbosacral Region 04/25/2021 Overview (04/25/2021): Added automatically from request for surgery [id number] Major Depressive Disorder, Recurrent, Unspecifie d 03/22/2021 Anemia In Chronic Kidney Disease 04/18/2018 Chronic Obstructive Pulmonary Disease 04/18/2018 Failure Renal End Stage 04/18/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 Med Refill from Last [...] on file Legal Sex Female 10:27 PM CREDIT RATING CHECKER Gender Identity Female 01/08/2022 2:47 PM CREDIT RATING CHECKER Sexual Orientation Straight 01/08/2022 2: 47 PM CREDIT RATING CHECKER Last Filed Vital Signs Vital Sign Reading [...] Health Maintenance Due Date Last Done Comments Depression Monitoring (PHQ-9) 1945 Diabetic Office Visit with F oot Exam 1945 Hepatitis C Screening 1945 Office Visit for Blood Press ure Check / Re-check 1945 Urine Albumin 1945 Hepatitis B Vaccines (3 of 3 - Risk 3-dose series) 11/29/2000 10/04/2000, 04/11/2000 Zoster Vaccines (2 of 3) 07/10/2012 05/15/2012 DTaP,Tdap,and Td Vaccines (2 - Td or Tdap) 05/30/2020 05/30/2010 RSV vaccine - (32-3 6 weeks) or 60+ years (1 - 1-dose 75+ series) 08/30/2022 Fall Risk Screen (Annual) 02/11/2023 COVID-19 Vaccine (2023-2 5 season) 2023 12/25/2022, 10/25/2021, 05/17/2021, Additional history exists Influenza Vaccine (#1) 2023 , 10/25/2021, 10/28/2020, Additional history exists Hemoglobin A1C 01/09/2024 07/09/2023, 05/2022, 04/10/2022, Additional history exists Creatinine Level (Kidney Fun ction Test) 02/22/2024 02/21/2023, 02/20/2023, 02/19/2023, Additional history exists Potassium Level 02/22/2024 02/21/2023, 02/11, 02/19/2023, Additional history exists Sodium Level 02/22/2024 02/21/2023, 02/11, 02/19/2023, Additional history exists Dilated Eye Exam 08/21/2024 08/22/2023, , 07/04/2023, Additional history exists Mammogram Discontinued 01/01/2019, 01/01/2019 Colonoscopy Discontinued 07/04/2020 Colorectal Cancer Screening Discontinued Pneumococcal vaccine (65+ years) Completed 04/10/2022, 06/22/2014, 12/31/2012, Additional history exists CT Colonography Discontinued Cologuard Discontinued FIT Discontinued Medical Devices Implanted Type Area Bi Tester Device Identifier Shelf Expiration Date Model / Serial / Lot Cornea - [id number] Implanted:Qty: 1 on 05/13/2015 Ocular (Eye) Implant Other/Legacy - See Implant Description [facility] Eye Bank Description:Device Manufactu rer - [facility] Eye Bank. Body Location - Other. Left. Device Status Text - [id number]. Cornea - [id number] [id number] Implanted:Qty: 1 on 06/10/2015 Ocular (Eye) Implant Other/Legacy - See Implant Description [facility] Eye Bank Description:Device Manufactu rer - [facility] Eye Bank. Body Location - Other. Left. Device Status Text - [id number]. Procedures Procedure Name Priority Date/Time Associated Diagnosis [...] NON RAD IMAGING PROCE DURES Final Result IIOH NA * (ABNORMAL) Hemoglobin A1c (05/13/2015 11:31 PM CDT) Hemoglobin A1c, B 8.1(H) 4.0 - 6.0 % [facility] 05/13/2015 11:3 1 PM CDT 05/13/2015 11:31 PM CDT Frantz Lee M.D. LAB BLOOD ADD-ON Final Resu lt [facility] [address] * (ABNORMAL) Creatinine with Estimated GFR (MDRD) (05/11/2015 11:42 AM CDT) Creatinine 1.3(H) 0.6 - 1.1 MG/DL [facility] eGFR Non-Black/Afric an Barbadian 41(L) >60 ML/MIN/BSA [facility] eGFR-Black/Afri can Barbadian 49(L) >60 ML/MIN/BSA [facility] 05/11/2015 11:4 2 AM CDT 05/11/2015 11:42 AM CDT Frantz Lee M.D. LAB BLOOD ADD-ON Final Resu lt Performing Organization Address City/[facility] Co de Phone Number [facility] [address] from Last 3 Months or Most Recently Relevant to Health Maintenance Insurance [facility] MED[facility]
--- OUTSIDE RECORDS SUMMARY | 2023-12-03 20:16 | XMS_ITS | Encounter Summary ---
Author Organization [facility] Address [address] [place] [address] Care Team Providers Care Imitation Marble Mechanic Name Role Phone Unavailable Primary Care Provider Unavailabl e Encounter Details Date Type Department Care Team (Late st Contact Info) Description 06/11/2016 Historical Ophthalmology RST OPH Deann Colby M.D. [address] [place] [phone] Social History Tobacco Use Types Packs/Day Years Used Date Smoking Tobacco: Never Assessed Comments Unknown Sex and Gender Information Value Date Recorded Sex Assigned at Not on file Legal Sex Female 10:27 PM CARRY ALL DRIVER Gender Identity Female 01/08/2022 2:47 PM CARRY ALL DRIVER Sexual Orientation Straight 01/08/2022 2: 47 PM CARRY ALL DRIVER documented as of this encounter Progress Notes [...] today nearly 1 year after surgery with SAUSAGE CANNER. Exam is stable with 1 loose suture. [...] right eye CDM Reports - EYEGEN Id: [id number] Status: Fnl documented in this encounter Plan of Treatment Not on file documented as of this encounter Visit Diagnoses Not on filedocumented in this encounter
--- OUTSIDE RECORDS SUMMARY | 2023-12-03 20:16 | XMS_ITS | Encounter Summary ---
Author Organization [facility] Address [address] [place] [address] Care Team Providers Care Endodontics Dentist Name Role Phone Unavailable Primary Care Provider Unavailabl e Encounter Details Date Type Department Care Team (Late st Contact Info) Description 07/12/2016 Historical Ophthalmology RST OPH Deann Colby M.D. [address] [place] [phone] Social History Tobacco Use Types Packs/Day Years Used Date Smoking Tobacco: Never Assessed Comments Unknown Sex and Gender Information Value Date Recorded Sex Assigned at Not on file Legal Sex Female 10:27 PM ZOOGLER Gender Identity Female 01/08/2022 2:47 PM ZOOGLER Sexual Orientation Straight 01/08/2022 2: 47 PM ZOOGLER documented as of this encounter Progress Notes [...] today nearly 1 year after surgery with CASINO DEALER. Exam is stable with 1 loose suture. IOP stable. Removed 11 sutures in total today. Continue prednisolone 1 x daily. Refresh tears 4x daily. RTC 4-6 weeks with refraction when Dr. Payton is in clinic. 12 Jul 2016: Seen with CASINO DEALER. Exam stable with 1 loose suture. IOP [...] sent to Benigno Bishop, OD, FAAO at [facility] who also cares for Ms. Vanegas. Recommend he recheck IOP and visual acuity in 4 months. 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 Return to [place] PRN. #2 Background diabetic retinopathy, right eye [...] right eye CDM Reports - EYEGEN Id: [id number] Status: Fnl documented in this encounter Plan of Treatment Not on file documented as of this encounter Visit Diagnoses Not on filedocumented in this encounter
--- OUTSIDE RECORDS SUMMARY | 2023-12-03 20:16 | XMS_ITS | Encounter Summary ---
Author Organization [facility] Address [address] [place] [address] Care Team Providers Care Block Paver Name Role Phone Unavailable Primary Care Provider Unavailabl e Encounter Details Date Type Department Care Team (Late st Contact Info) Description 05/13/2015 Historical Ophthalmology RST OPH Frantz Lee M.D. [address] [place] [phone] Social History Tobacco Use Types Packs/Day Years Used Date Smoking Tobacco: Never Assessed Comments Unknown Sex and Gender Information Value Date Recorded Sex Assigned at Not on file Legal Sex Female 10:27 PM ANGLE DOZER OPERATOR Gender Identity Female 01/08/2022 2:47 PM ANGLE DOZER OPERATOR Sexual Orientation Straight 01/08/2022 2: 47 PM ANGLE DOZER OPERATOR documented as of this encounter Progress [...] follow with her PCP for diabetes management. REPORTING PROCESS CONSULTANT ([id number]): I interviewed and examined the patient and [...] Corneal ulcer, left eye CDM Reports - WrapMail Id: [id number] Status: Fnl documented in this encounter Plan of Treatment Not on file documented as of this encounter Visit Diagnoses Not on filedocumented in this encounter
--- OUTSIDE RECORDS SUMMARY | 2023-12-03 20:16 | XMS_ITS | Encounter Summary ---
Author Organization [facility] Address [address] [place] [address] Care Team Providers Care Salesperson Handbags Name Role Phone Unavailable Primary Care Provider Unavailabl e Encounter Details Date Type Department Care Team (Late st Contact Info) Description 04/17/2016 Historical Ophthalmology RST OPH Daniel Clements M.D. [address] [place] [phone] Social History Tobacco Use Types Packs/Day Years Used Date Smoking Tobacco: Never Assessed Comments Unknown Sex and Gender Information Value Date Recorded Sex Assigned at Not on file Legal Sex Female 10:27 PM PATTERNMAKER PLASTICS Gender Identity Female 01/08/2022 2:47 PM PATTERNMAKER PLASTICS Sexual Orientation Straight 01/08/2022 2: 47 PM PATTERNMAKER PLASTICS documented as of this encounter Progress Notes * Daniel Clements M.D. - 04/17/2016 9:37 AM CST Eye General CHIEF COMPLAINT Left eye itching all night long; 2.5 weeks; tearing a little. HISTORY OF PRESENT ILLNESS [place] over left eye pupil. No eye pain. [...] right eye CDM Reports - EYEGEN Id: [id number] Status: Fnl documented in this encounter Plan of Treatment Not on file documented as of this encounter Visit Diagnoses Not on filedocumented in this encounter
--- OUTSIDE RECORDS SUMMARY | 2023-12-03 20:16 | XMS_ITS | Encounter Summary ---
Author Organization [facility] Address [address] [place] [address] Care Team Providers Care Automobiles Salesperson Name Role Phone Unavailable Primary Care Provider Unavailabl e Encounter Details Date Type Department Care Team (Late st Contact Info) Description 10/24/2015 Historical Ophthalmology RST OPH Deann Colby M.D. [address] [place] [phone] Social History Tobacco Use Types Packs/Day Years Used Date Smoking Tobacco: Never Assessed Comments Unknown Sex and Gender Information Value Date Recorded Sex Assigned at Not on file Legal Sex Female 10:27 PM WHEAT FARMER Gender Identity Female 01/08/2022 2:47 PM WHEAT FARMER Sexual Orientation Straight 01/08/2022 2: 47 PM WHEAT FARMER documented as of this encounter Progress Notes [...] intra-op intravitreal vancomycin and ceftazadime Discussed with MANAGER HOME today. 24 Oct 2015: Corneal edema continues [...] vision, worsening concerns. Must come in when MANAGER HOME is here. Use fluorescein strips only, not [...] #4 Floaters, right eye CDM Reports [facility] Id: [id number] Status: Fnl documented in this encounter Plan of Treatment Not on file documented as of this encounter Visit Diagnoses Not on filedocumented in this encounter
--- OUTSIDE RECORDS SUMMARY | 2023-12-03 20:16 | XMS_ITS | Encounter Summary ---
Author Organization [facility] Address [address] [place] [address] Care Team Providers Care Afternoon Nanny Name Role Phone Unavailable Primary Care Provider Unavailabl e Encounter Details Date Type Department Care Team (Late st Contact Info) Description 07/12/2015 Historical Ophthalmology RST OPH Eva Heard M.D. [address] [facility] 200 [place] [address] Social History Tobacco Use Types Packs/Day Years Used Date Smoking Tobacco: Never Assessed Comments Unknown Sex and Gender Information Value Date Recorded Sex Assigned at Not on file Legal Sex Female 10:27 PM SHAKE LOADER Gender Identity Female 01/08/2022 2:47 PM SHAKE LOADER Sexual Orientation Straight 01/08/2022 2: 47 PM SHAKE LOADER documented as of this encounter Progress Notes * Eav Heard M.D. - 07/12/2015 1:55 PM CDT [...] intra-op intravitreal vancomycin and ceftazadime Seen with ELECTRIFIER OPERATOR today. 06/13/15: Paul negative. Well formed chamber, with normal IOP. Graft and sutures intact. Suture reaction most significant inferiorly, will continue pred forte TID and consider suture removal inferiorly at next visit. 06/16/15: Paul negative, formed chamber, suture reaction on all original graft sutures, no loose sutures, discussed with LJM, continue current drops and return next week when ELECTRIFIER OPERATOR here. Seen with SCB today. 06/20/15: Paul negative, formed chamber, suture reaction decreased, seen with ELECTRIFIER OPERATOR, M Parasol occluder placed in left lower puncu, expires 2018, [id number] 06/27/15: Paul negative, increased edema over snowman [...] Monocular status CDM Reports - EYEGEN Id: [id number] Status: Fnl documented in this encounter Plan of Treatment Not on file documented as of this encounter Visit Diagnoses Not on filedocumented in this encounter
--- OUTSIDE RECORDS SUMMARY | 2023-12-03 20:16 | XMS_ITS | Encounter Summary ---
Author Organization [facility] Address [address] [place] [address] Care Team Providers Care Financial Compliance Manager Name Role Phone Unavailable Primary Care Provider Unavailabl e Encounter Details Date Type Department Care Team (Latest Contact Info) Description 07/29/2023 Clinical Communication Department of Ophthalmology in [place], [place] [address] [place] [address] Luma Solis M.D., M.S. [address] [place] [phone] Social History Tobacco Use Types Packs/Day Years [...] on file Legal Sex Female 10:27 PM WRAP CHECKER Gender Identity Female 01/08/2022 2:47 PM WRAP CHECKER Sexual Orientation Straight 01/08/2022 2: 47 PM WRAP CHECKER documented as of this encounter Plan of Treatment Not on file documented as of this encounter Visit Diagnoses Not on filedocumented in this encounter
--- OUTSIDE RECORDS SUMMARY | 2023-12-03 20:16 | XMS_ITS | Encounter Summary ---
Author Organization [facility] Address [address] [place] [address] Care Team Providers Care Material Dispatcher Name Role Phone Unavailable Primary Care Provider Unavailabl e Encounter Details Date Type Department Care Team (Late st Contact Info) Description 05/10/2015 Historical Ophthalmology RST OPH Frantz Lee M.D. [address] [place] [phone] Social History Tobacco Use Types Packs/Day Years Used Date Smoking Tobacco: Never Assessed Comments Unknown Sex and Gender Information Value Date Recorded Sex Assigned at Not on file Legal Sex Female 10:27 PM WATER INSPECTOR Gender Identity Female 01/08/2022 2:47 PM WATER INSPECTOR Sexual Orientation Straight 01/08/2022 2: 47 PM WATER INSPECTOR documented as of this encounter Progress Notes [...] left eye CDM Reports - EYEGEN Id: [id number] Status: Fnl documented in this encounter Plan of Treatment Not on file documented as of this encounter Visit Diagnoses Not on filedocumented in this encounter
--- OUTSIDE RECORDS SUMMARY | 2023-12-03 20:16 | XMS_ITS | Encounter Summary ---
Author Organization [facility] Address [address] [place] [address] Care Team Providers Care Life Sciences Manager Name Role Phone Unavailable Primary Care Provider Unavailabl e Encounter Details Date Type Department Care Team (Late st Contact Info) Description 06/05/2016 Historical Ophthalmology RST OPH Deann Colby M.D. [address] [place] [phone] Social History Tobacco Use Types Packs/Day Years Used Date Smoking Tobacco: Never Assessed Comments Unknown Sex and Gender Information Value Date Recorded Sex Assigned at Not on file Legal Sex Female 10:27 PM BOBBIN WINDER TENDER Gender Identity Female 01/08/2022 2:47 PM BOBBIN WINDER TENDER Sexual Orientation Straight 01/08/2022 2: 47 PM BOBBIN WINDER TENDER documented as of this encounter Progress [...] in clinic. CDM Reports - EYEGEN Id: [id number] Status: Fnl documented in this encounter Plan of Treatment Not on file documented as of this encounter Visit Diagnoses Not on filedocumented in this encounter
--- OUTSIDE RECORDS SUMMARY | 2023-12-03 20:16 | XMS_ITS | Encounter Summary ---
Author Organization [facility] Address [address] [place] [address] Care Team Providers Care Paper Bag Making Machinist Name Role Phone Unavailable Primary Care Provider Unavailabl e Encounter Details Date Type Department Care Team (Late st Contact Info) Description 05/11/2015 Historical Ophthalmology RST OPH Frantz Lee M.D. [address] [place] [phone] Social History Tobacco Use Types Packs/Day Years Used Date Smoking Tobacco: Never Assessed Comments Unknown Sex and Gender Information Value Date Recorded Sex Assigned at Not on file Legal Sex Female 10:27 PM HAM TRIMMER Gender Identity Female 01/08/2022 2:47 PM HAM TRIMMER Sexual Orientation Straight 01/08/2022 2: 47 PM HAM TRIMMER documented as of this encounter Progress Notes [...] left eye CDM Reports - EYEGEN Id: [id number] Status: Fnl documented in this encounter Plan of Treatment Not on file documented as of this encounter Visit Diagnoses Not on filedocumented in this encounter
--- OUTSIDE RECORDS SUMMARY | 2023-12-03 20:16 | XMS_ITS | Encounter Summary ---
Author Organization [facility] Address [address] [place] [address] Care Team Providers Care Tombstone Erector Helper Name Role Phone Unavailable Primary Care Provider Unavailabl e Encounter Details Date Type Department Care Team (Late st Contact Info) Description 01/23/2016 Historical Ophthalmology RST OPH Deann Colby M.D. [address] [place] [phone] Social History Tobacco Use Types Packs/Day Years Used Date Smoking Tobacco: Never Assessed Comments Unknown Sex and Gender Information Value Date Recorded Sex Assigned at Not on file Legal Sex Female 10:27 PM DIRECTOR OF RESEARCH CENTER Gender Identity Female 01/08/2022 2:47 PM DIRECTOR OF RESEARCH CENTER Sexual Orientation Straight 01/08/2022 2: 47 PM DIRECTOR OF RESEARCH CENTER documented as of this encounter Progress Notes [...] vision, worsening concerns. Must come in when WAGE ANALYST is here (preferably as COS staff). Use [...] #4 Floaters, right eye CDM Reports - EYESendMe Id: [id number] Status: Fnl documented in this encounter Plan of Treatment Not on file documented as of this encounter Visit Diagnoses Not on filedocumented in this encounter
--- OUTSIDE RECORDS SUMMARY | 2023-12-03 20:16 | XMS_ITS | Encounter Summary ---
Author Organization [facility] Address [address] [place] [address] Care Team Providers Care Addiction Therapist Name Role Phone Unavailable Primary Care Provider Unavailabl e Encounter Details Date Type Department Care Team (Late st Contact Info) Description 08/24/2015 Historical Ophthalmology RST OPH Deann Colby M.D. [address] [place] [phone] Social History Tobacco Use Types Packs/Day Years Used Date Smoking Tobacco: Never Assessed Comments Unknown Sex and Gender Information Value Date Recorded Sex Assigned at Not on file Legal Sex Female 10:27 PM MANAGER OF CORPORATE COMMUNICATIONS Gender Identity Female 01/08/2022 2:47 PM MANAGER OF CORPORATE COMMUNICATIONS Sexual Orientation Straight 01/08/2022 2: 47 PM MANAGER OF CORPORATE COMMUNICATIONS documented as of this encounter Progress Notes [...] intra-op intravitreal vancomycin and ceftazadime Seen with VINEYARDIST today. 08/03/15: Corneal edema continues to improve. [...] vision, worsening concerns. Must come in when VINEYARDIST is here. Use fluorescein strips only, not [...] #4 Floaters, right eye CDM Reports - EYE27 [place] Id: [id number] Status: Fnl documented in this encounter Plan of Treatment Not on file documented as of this encounter Visit Diagnoses Not on filedocumented in this encounter
--- OUTSIDE RECORDS SUMMARY | 2023-12-03 20:16 | XMS_ITS | Encounter Summary ---
Author Organization [facility] Address [address] [place] [address] Care Team Providers Care Wheel Roller Name Role Phone Unavailable Primary Care Provider Unavailabl e Encounter Details Date Type Department Care Team (Late st Contact Info) Description 06/13/2015 Historical Ophthalmology RST OPH Maricruz Garcia M.D. Social History Tobacco Use Types Packs/Day Years Used Date Smoking Tobacco: Never Assessed Comments Unknown Sex and Gender Information Value Date Recorded Sex Assigned at Not on file Legal Sex Female 10:27 PM NETWORK TECHNICIAN Gender Identity Female 01/08/2022 2:47 PM NETWORK TECHNICIAN Sexual Orientation Straight 01/08/2022 2: 47 PM NETWORK TECHNICIAN documented as of this encounter Progress Notes * Maricruz Garcia M.D. - 06/13/2015 3:08 PM CDT Eye Postoperative MULTI-VISIT DOCUMENT This document contains multiple patient visits and is available for review in Document Viewer. CDM Reports - EYEPO Id: [id number] Status: Fnl documented in this encounter Plan of Treatment Not on file documented as of this encounter Visit Diagnoses Not on filedocumented in this encounter
--- OUTSIDE RECORDS SUMMARY | 2023-12-03 20:16 | XMS_ITS | Encounter Summary ---
Author Organization [facility] Address [address] [place] [address] Care Team Providers Care Waist Cutter Name Role Phone Unavailable Primary Care Provider Unavailabl e Encounter Details Date Type Department Care Team (Late st Contact Info) Description 10/13/2015 Historical Ophthalmology RST OPH Deann Colby M.D. [address] [place] [phone] Social History Tobacco Use Types Packs/Day Years Used Date Smoking Tobacco: Never Assessed Comments Unknown Sex and Gender Information Value Date Recorded Sex Assigned at Not on file Legal Sex Female 10:27 PM CEREAL MILLER Gender Identity Female 01/08/2022 2:47 PM CEREAL MILLER Sexual Orientation Straight 01/08/2022 2: 47 PM CEREAL MILLER documented as of this encounter Progress Notes [...] intra-op intravitreal vancomycin and ceftazadime Discussed with BLOWER AND COMPRESSOR ASSEMBLER today. 13 Oct 2015: Corneal edema continues [...] vision, worsening concerns. Must come in when BLOWER AND COMPRESSOR ASSEMBLER is here. Use fluorescein strips only, not [...] #4 Floaters, right eye CDM Reports - EYETilera Id: [id number] Status: Fnl documented in this encounter Plan of Treatment Not on file documented as of this encounter Visit Diagnoses Not on filedocumented in this encounter
--- OUTSIDE RECORDS SUMMARY | 2023-12-03 20:16 | XMS_ITS | Encounter Summary ---
Author Organization [facility] Address [address] [place] [address] Care Team Providers Care Negotiations Director Name Role Phone Unavailable Primary Care Provider Unavailabl e Encounter Details Date Type Department Care Team (Late st Contact Info) Description 08/03/2015 Historical Ophthalmology RST OPH Eva Heard M.D. [address] [facility] [address] [place] [address] Social History Tobacco Use Types Packs/Day Years Used Date Smoking Tobacco: Never Assessed Comments Unknown Sex and Gender Information Value Date Recorded Sex Assigned at Not on file Legal Sex Female 10:27 PM STARCH DUMPER Gender Identity Female 01/08/2022 2:47 PM STARCH DUMPER Sexual Orientation Straight 01/08/2022 2: 47 PM STARCH DUMPER documented as of this encounter Progress Notes [...] intra-op intravitreal vancomycin and ceftazadime Seen with ESTATE TAX EXAMINER today. 06/13/15: Paul negative. Well formed chamber, with normal IOP. Graft and sutures intact. Suture reaction most significant inferiorly, will continue pred forte TID and consider suture removal inferiorly at next visit. 06/16/15: Paul negative, formed chamber, suture reaction on all original graft sutures, no loose sutures, discussed with LJM, continue current drops and return next week when ESTATE TAX EXAMINER here. Seen with SCB today. 06/20/15: Paul negative, formed chamber, suture reaction decreased, seen with ESTATE TAX EXAMINER, M Parasol occluder placed in left lower puncum, expires 2018, LOT [id number] 06/27/15: Paul negative, increased edema over snowman [...] both eyes CDM Reports - EYEGEN Id: [id number] Status: Fnl documented in this encounter Plan of Treatment Not on file documented as of this encounter Visit Diagnoses Not on filedocumented in this encounter
--- OUTSIDE RECORDS SUMMARY | 2023-12-03 20:16 | XMS_ITS | Encounter Summary ---
Author Organization [facility] Address [address] [place] [address] Care Team Providers Care Leather Belt Shaper Name Role Phone Unavailable Primary Care Provider Unavailabl e Encounter Details Date Type Department Care Team (Late st Contact Info) Description 05/09/2015 Historical Ophthalmology RST OPH Frantz Lee M.D. [address] [place] [phone] Social History Tobacco Use Types Packs/Day Years Used Date Smoking Tobacco: Never Assessed Comments Unknown Sex and Gender Information Value Date Recorded Sex Assigned at Not on file Legal Sex Female 10:27 PM CATEGORY MANAGER Gender Identity Female 01/08/2022 2:47 PM CATEGORY MANAGER Sexual Orientation Straight 01/08/2022 2: 47 PM CATEGORY MANAGER documented as of this encounter Progress Notes [...] to the eye doctor this morning in [facility]. States that she lost the [...] left eye CDM Reports - EYEGEN Id: [id number] Status: Fnl documented in this encounter Plan of Treatment Not on file documented as of this encounter Visit Diagnoses Not on filedocumented in this encounter
--- OUTSIDE RECORDS SUMMARY | 2023-12-03 20:16 | XMS_ITS | Encounter Summary ---
Author Organization [facility] Address [address] [place] [address] Care Team Providers Care Nursing Project Coordinator Name Role Phone Unavailable Primary Care Provider Unavailabl e Encounter Details Date Type Department Care Team (Late st Contact Info) Description 05/14/2015 Historical Ophthalmology RST OPH Maricruz Garcia M.D. Social History Tobacco Use Types Packs/Day Years Used Date Smoking Tobacco: Never Assessed Comments Unknown Sex and Gender Information Value Date Recorded Sex Assigned at Not on file Legal Sex Female 10:27 PM PUBLIC SERVICE ADMINISTRATOR Gender Identity Female 01/08/2022 2:47 PM PUBLIC SERVICE ADMINISTRATOR Sexual Orientation Straight 01/08/2022 2: 47 PM PUBLIC SERVICE ADMINISTRATOR documented as of this encounter Progress Notes [...] washout 05/13/15 CDM Reports - EYEGEN Id: [id number] Status: Fnl documented in this encounter Plan of Treatment Not on file documented as of this encounter Visit Diagnoses Not on filedocumented in this encounter
--- OUTSIDE RECORDS SUMMARY | 2023-12-03 20:16 | XMS_ITS | Encounter Summary ---
Author Organization [facility] Address [address] [place] [address] Care Team Providers Care Gold Tooler Name Role Phone Unavailable Primary Care Provider Unavailabl e Encounter Details Date Type Department Care Team (Late st Contact Info) Description 11/23/2015 Historical Ophthalmology RST OPH Deann Colby M.D. [address] [place] [phone] Social History Tobacco Use Types Packs/Day Years Used Date Smoking Tobacco: Never Assessed Comments Unknown Sex and Gender Information Value Date Recorded Sex Assigned at Not on file Legal Sex Female 10:27 PM HOSPICE BEREAVEMENT COORDINATOR Gender Identity Female 01/08/2022 2:47 PM HOSPICE BEREAVEMENT COORDINATOR Sexual Orientation Straight 01/08/2022 2: 47 PM HOSPICE BEREAVEMENT COORDINATOR documented as of this encounter Progress [...] intra-op intravitreal vancomycin and ceftazadime Discussed with CHILD DEVELOPMENT SPECIALIST today. 23 Nov 2015: Corneal edema continues [...] vision, worsening concerns. Must come in when CHILD DEVELOPMENT SPECIALIST is here (preferably as COS staff). [...] right eye CDM Reports - EYEGEN Id: [id number] Status: Fnl documented in this encounter Plan of Treatment Not on file documented as of this encounter Visit Diagnoses Not on filedocumented in this encounter
--- OUTSIDE RECORDS SUMMARY | 2023-12-03 20:16 | XMS_ITS | Encounter Summary ---
Author Organization [facility] Address [address] [place] [address] Care Team Providers Care Volunteer Patient Representative Name Role Phone Unavailable Primary Care Provider Unavailabl e Encounter Details Date Type Department Care Team (Late st Contact Info) Description 09/26/2015 Historical Ophthalmology RST OPH Deann Colby M.D. [address] [place] [phone] Social History Tobacco Use Types Packs/Day Years Used Date Smoking Tobacco: Never Assessed Comments Unknown Sex and Gender Information Value Date Recorded Sex Assigned at Not on file Legal Sex Female 10:27 PM LOOP TACKER Gender Identity Female 01/08/2022 2:47 PM LOOP TACKER Sexual Orientation Straight 01/08/2022 2: 47 PM LOOP TACKER documented as of this encounter Progress Notes [...] intra-op intravitreal vancomycin and ceftazadime Seen with NETWORK CONTRACT MANAGER today. 26 Sep 2015: Corneal edema continues [...] vision, worsening concerns. Must come in when NETWORK CONTRACT MANAGER is here. Use fluorescein strips only, not [...] right eye CDM Reports - EYEGEN Id: [id number] Status: Fnl documented in this encounter Plan of Treatment Not on file documented as of this encounter Visit Diagnoses Not on filedocumented in this encounter
--- OUTSIDE RECORDS SUMMARY | 2023-12-03 20:16 | XMS_ITS | Encounter Summary ---
Author Organization [facility] Address [address] [place] [address] Care Team Providers Care Chief Cloth Finishing Range Operator Name Role Phone Unavailable Primary Care Provider Unavailabl e Encounter Details Date Type Department Care Team (Late st Contact Info) Description 06/13/2015 Historical Ophthalmology RST OPH Maricruz Garcia M.D. Social History Tobacco Use Types Packs/Day Years Used Date Smoking Tobacco: Never Assessed Comments Unknown Sex and Gender Information Value Date Recorded Sex Assigned at Not on file Legal Sex Female 10:27 PM WATCH ELECTRICIAN Gender Identity Female 01/08/2022 2:47 PM WATCH ELECTRICIAN Sexual Orientation Straight 01/08/2022 2: 47 PM WATCH ELECTRICIAN documented as of this encounter Progress Notes [...] Monocular status CDM Reports - EYEGEN Id: [id number] Status: Fnl documented in this encounter Plan of Treatment Not on file documented as of this encounter Visit Diagnoses Not on filedocumented in this encounter
[2023-12-03 20:38] VITALS: BP 154/74; PULSE 68; RESP 20; TEMP 36.7; O2SAT 99
== END 2023-12-03 20:52 | disposition home or self-care (01) ==
PROVIDERS: Emergency Provider Emergency Medicine; PCP Family Medicine
DX: R05.9 Cough, unspecified (principal)
CPT/HCPCS: 71046; 99283; 99284

== ENCOUNTER 2024-01-13 17:12 | Outpatient (CLI) | payer MEDICARE, BC, SELFPAY ==
--- OUTSIDE RECORDS SUMMARY | 2024-01-14 05:51 | XMS_ITS | Encounter Summary ---
Author Organization [facility] Address [address] [place] [address] Care Team Providers Care Machine Shop Repair Technician Name Role Phone Tyrell Schneider MD Primary Care Provider [phone] Encounter Details Date Type Department Care Team (Late st Contact Info) Description 01/08/2024 Orders Only [facility] [address] [facility] [address] [place] [address] Gabriel Mena MD [address] [place] [address] Social History Tobacco Use Types [...] (01/08/2024) Hemoglobin 10.8(L) 12.0 - 16.0 g/dL [facility] Hemoglobin x 3 32.4(L) 36.0 - 48.0 % [facility] 01/08/2024 01/09/2024 6:0 8 AM MANAGER SUMMER Narrative [facility] - 01/09/2024 Unless otherwise specified, test(s) performed at: [facility], [address], [place] [address] LOCAL COMPANY TANKER DRIVER: Eze Park M.D., Ph.D For any questions, please call customer service at FREQUENCY:OTHER Resulting Agency Comment Specimen source: Blood us Gabriel Mena MD LAB BLOOD ORDERABLES Final Re sult [facility] See order comments or contact performing lab Unknown, [place] documented in this encounter Visit Diagnoses Not on filedocumented in this encounter Care Teams Machine Shop Repair Technician Relationship Specialty Start Date End Date Tyrell Schneider MD [address] [place], [place] [id number] PCP - General 10/27/18 documented as of this encounter
--- OUTSIDE RECORDS SUMMARY | 2024-01-14 05:51 | XMS_ITS | Encounter Summary ---
Author Organization [facility] Address [address] [place] [address] Care Team Providers Care Midlevel Provider Name Role Phone Tyrlel Schneider MD Primary Care Provider [phone] Encounter Details Date Type Department Care Team (Late st Contact Info) Description 12/27/2023 Treatment [facility] [place] [address] [place] [address] Gabriel Smith MD [address] [place] [address] Social History Tobacco Use Types Packs/Day Years Used Date Smoking Tobacco: Never Assessed Comments Unknown Sex and Gender Information Value Date Recorded Sex Assigned at Not on file Legal Sex Female 7:04 PM EDT Gender Identity Not on file Sexual Orientation Not on file documented as of this encounter Miscellaneous Notes * Dialysis Note - Gabriel Smith MD - 12/27/2023 12:00 AM CST Patient: Maricruz Vanegas : 1945 Note Type: Dialysis Rounds-Comp Service Date: 12/27/2023 This patient was personally seen for a complete visit as part of routine monthly dialysis care for end stage renal disease. Attending On Site Wastewater Systems Technician: GABRIEL SMITH Dialysis Location: [facility] Schedule: Shift: 2 OVERVIEW COMMENTS: [...] and quit. HOME MEDICATIONS Medications reviewed. Current [facility] Outpatient Medications albuterol sulfate 2.5 [...] 96.3*F Current Dialysis Vitals BP Sit: 107/50 [address] CLERK: 216/192 Pulse: 55 TREATMENT MEDICATIONS ORDERS Heparin [...] not at goal. Potassium controlled. Referred to taper machine for further counseling. Patient taking protein supplements. [...] on filedocumented in this encounter Care Teams Midlevel Provider Relationship Specialty Start Date End Date Tyrell Schneider MD [address] [place] [address] PCP - General 10/27/18 documented as of this encounter
--- OUTSIDE RECORDS SUMMARY | 2024-01-14 05:51 | XMS_ITS | Referral Summary ---
Author Organization [facility] Address [address] [place] [address] Care Team Providers Care Service Captain Name Role Phone Tyrell Schneider Primary Care Provider [phone] Allergies Active Allergy Reactions Criticality Noted Date [...] 01/09/2010 itching Niacin Rash,Itching Low 05/13/2006 itch [place] Rash Low 05/16/2010 Oxycodone Nausea and [...] times daily 3 Active neomycin-polymyx in-dexAMETHasone (MAXITROL) 3.5-95443-7.[address] 0.25 inches Into the [...] Comments Blood Pressure 166/77 02/21/2023 3:58 PM DOCKMASTER Pulse 64 02/21/2023 3:58 PM DOCKMASTER Temperature 36.9 C (98.4 F) 02/21/2023 3:58 PM DOCKMASTER Respiratory Rate 18 02/21/2023 3:58 PM DOCKMASTER Oxygen Saturation 99% 02/21/2023 3:58 PM DOCKMASTER Inhaled Oxygen Concentration - - Weight 40.8 kg (90 lb) 02/20/2023 8:47 PM DOCKMASTER Height 154.9 cm (5' 1) 12/13/2022 3:15 AM CDT Body Mass Index 17.01 12/13/2022 3:15 AM CDT Plan of Treatment Not on file Procedures Procedure Name Priority Date/Time Associated Diagnosis Comments CBC WITH PLATELETS Routine 02/21/2023 8: 16 AM D[facility] BASIC METABOLIC PANEL Routine 02/21/2023 8:16 AM [facility] GLUCOSE BY METER Routine 02/21/2023 1:08 AM [facility] COMPREHENSIVE METABOLIC PANEL STAT 02/20/2023 8:52 AM DOCK[facility]STER RENAL PANEL Routine 12/18/2022 8:45 AM DOCKMASTER OCCULT BLOOD STOOL STAT 12/12/2022 11 :03 PM CDT from Last 3 Months or Most Recently Relevant to Health Maintenance Results * (ABNORMAL) Basic metabolic panel (02/21/2023 8:16 AM DOCKMASTER) Sodium 134(L) 135 - 145 mmol/L 02/21/2023 8:55 AM [facility] Comment:Reference intervals for this test were updated on 11/06/2022 to more accurately reflect our healthy population. There may be differences in the flagging of prior results with similar values performed with this method. Interpretation of those prior results can be made in the context of the updated reference intervals. Potassium 4.0 3.4 - 5.3 mmol/L 02/21/2023 8:55 AM [facility] Chloride 97(L) 98 - 107 mmol/L 02/21/2023 8:55 AM [facility] Carbon Dioxide (CO2) 28 22 - 29 mmol/L 02/21/2023 8:55 AM [facility] Anion Gap 9 7 - 15 mmol/L 02/21/2023 8:55 AM [facility] Urea Nitrogen 12.8 8.0 - 23.0 mg/dL 02/21/2023 8:55 AM [facility] Creatinine 2.49(H) 0.51 - 0.95 mg/dL 02/21/2023 8:55 AM [facility] GFR Estimate 20(L) >60 mL/min/1. 73m2 02/21/2023 8:55 AM [facility] Calcium 8.6(L) 8.8 - 10.2 mg/dL 02/21/2023 8:55 AM [facility] Glucose 144(H) 70 - 99 mg/dL 02/21/2023 8:55 AM [facility] Blood STRUCTURE OF RIGHT HAND / Unknown Venipuncture / Unknown 02/21/2023 8:16 AM DOCKMASTER 02/21/2023 8:34 AM [facility] us Nidia Yanez DO LAB - BLOOD ORDERABLES Fi nal Result LABORATORY [facility] [address] [facility] Lab (1st floor, no room number) [place] [address] [phone] * (ABNORMAL) CBC with platelets (02/21/2023 8:16 AM DOCKMASTER) [facility] Signature WBC Count 6.6 4.0 - 11.0 10e3/uL 02/21/2023 8:39 AM [facility] RBC Count 4.43 3.80 - 5.20 10e6/uL 02/21/2023 8:39 AM [facility] Hemoglobin 12.3 11.7 - 15.7 g/dL 02/21/2023 8:39 AM [facility] Hematocrit 39.2 35.0 - 47.0 % 02/21/2023 8:39 AM [facility] MCV 89 78 - 100 fL 02/21/2023 8:39 AM [facility] MCH 27.8 26.5 - 33.0 pg 02/21/2023 8:39 AM [facility] MCHC 31.4(L) 31.5 - 36.5 g/dL 02/21/2023 8:39 AM [facility] RDW 19.3(H) 10.0 - 15.0 % 02/21/2023 8:39 AM [facility] Platelet Count 292 150 - 450 10e3/uL 02/21/2023 8:39 AM [facility] Blood STRUCTURE OF RIGHT HAND / Unknown Venipuncture / Unknown 02/21/2023 8:16 AM DOCKMASTER 02/21/2023 8:34 AM [facility] us Nidia Yanez DO LAB - BLOOD ORDERABLES Fi nal Result [facility] [address] [employer] Lab (1st floor, no room number) [place] [address], [place] [phone] * (ABNORMAL) Glucose by meter (02/21/2023 1:08 AM DOCKMASTER) GLUCOSE BY METER POCT 131(H) 70 - 99 mg/dL 02/21/2023 1:17 AM [facility] POC Blood, Capillary BLOOD SPECIMEN / Unknown 02/21/2023 1:08 AM DOCKMASTER 02/21/2023 1:17 AM [facility] us Joseph Jeffers MD LAB - BEAKER POCT Final R esult LABORATORY [facility] [address] Lab (1st floor, no room number) [place] [address], [place] [phone] * (ABNORMAL) Comprehensive metabolic panel (02/20/2023 8:52 AM DOCKMASTER) Sodium 135 135 - 145 mmol/L 02/20/2023 9:27 AM [facility] Comment:Reference intervals for this test were updated on 11/06/2022 to more accurately reflect our healthy population. There may be differences in the flagging of prior results with similar values performed with this method. Interpretation of those prior results can be made in the context of the updated reference intervals. Potassium 4.2 3.4 - 5.3 mmol/L 02/20/2023 9:27 AM [facility] Carbon Dioxide (CO2) 25 22 - 29 mmol/L 02/20/2023 9:27 AM [facility] Anion Gap 12 7 - 15 mmol/L 02/20/2023 9:27 AM [facility] Urea Nitrogen 34.5(H) 8.0 - 23.0 mg/dL 02/20/2023 9:27 AM [facility] Creatinine 3.81(H) 0.51 - 0.95 mg/dL 02/20/2023 9:27 AM [facility] GFR Estimate 12(L) >60 mL/min/1. 73m2 02/20/2023 9:27 AM [facility] Calcium 8.7(L) 8.8 - 10.2 mg/dL 02/20/2023 9:27 AM [facility] Chloride 98 98 - 107 mmol/L 02/20/2023 9:27 AM [facility] Glucose 112(H) 70 - 99 mg/dL 02/20/2023 9:27 AM [facility] Alkaline Phosphatase 122 40 - 150 U/L 02/20/2023 9:27 AM [facility] Comment:Reference intervals for this test were updated on 12/25/2022 to more accurately reflect our healthy population. There may be differences in the flagging of prior results with similar values performed with this method. Interpretation of those prior results can be made in the context of the updated reference intervals. AST 18 0 - 45 U/L 02/20/2023 9:27 AM [facility] Comment:Reference intervals for this test were updated on 07/23/2022 to more accurately reflect our healthy population. There may be differences in the flagging of prior results with similar values performed with this method. Interpretation of those prior results can be made in the context of the updated reference intervals. ALT 5 0 - 50 U/L 02/20/2023 9:27 AM [facility] Comment:Reference intervals for this test were updated on 07/23/2022 to more accurately reflect our healthy population. There may be differences in the flagging of prior results with similar values performed with this method. Interpretation of those prior results can be made in the context of the updated reference intervals. Protein Total 6.3(L) 6.4 - 8.3 g/dL 02/20/2023 9:27 AM [facility] Albumin 3.2(L) 3.5 - 5.2 g/dL 02/20/2023 9:27 AM [facility] Bilirubin Total 0.2 <=1.2 mg/dL 02/20/2023 9:27 AM [facility] Blood STRUCTURE OF LEFT UPPER LIMB / Unknown Venipuncture / Unknown 02/20/2023 8:52 AM DOCKMASTER 02/20/2023 8:59 AM DOCKMASTER us Kai Khan DO LAB - BLOOD ORDERABLES Fin al Result LABORATORY [facility] [address] [facility] Lab (1st floor, no room number) [place] [address], [facility] [phone] * (ABNORMAL) Renal panel (12/18/2022 8:45 AM DOCKMASTER) Sodium 135 135 - 145 mmol/L 12/18/2022 9:44 AM [facility] Comment:Reference intervals for this test were updated on 11/06/2022 to more accurately reflect our healthy population. There may be differences in the flagging of prior results with similar values performed with this method. Interpretation of those prior results can be made in the context of the updated reference intervals. Potassium 4.2 3.4 - 5.3 mmol/L 12/18/2022 9:44 AM [facility] Chloride 99 98 - 107 mmol/L 12/18/2022 9:44 AM [facility] Carbon Dioxide (CO2) 29 22 - 29 mmol/L 12/18/2022 9:44 AM [facility] Anion Gap 7 7 - 15 mmol/L 12/18/2022 9:44 AM [facility] Glucose 128(H) 70 - 99 mg/dL 12/18/2022 9:44 AM [facility] Urea Nitrogen 17.7 8.0 - 23.0 mg/dL 12/18/2022 9:44 AM [facility] Creatinine 2.67(H) 0.51 - 0.95 mg/dL 12/18/2022 9:44 AM [facility] GFR Estimate 18(L) >60 mL/min/1. 73m2 12/18/2022 9:44 AM [facility] Calcium 7.6(L) 8.8 - 10.2 mg/dL 12/18/2022 9:44 AM [facility] Albumin 2.6(L) 3.5 - 5.2 g/dL 12/18/2022 9:44 AM [facility] Phosphorus 2.3(L) 2.5 - 4.5 mg/dL 12/18/2022 9:44 AM [facility] Blood STRUCTURE OF RIGHT UPPER LIMB / Unknown Venipuncture / Unknown 12/18/2022 8:45 AM DOCKMASTER 12/18/2022 8:50 AM [facility] us David Treviño MD LAB - BLOOD ORDERABLES Final Res ult [facility] [address] [employer] Lab (1st floor, no room number) [place] [address], [facility] [phone] * Stool: occult blood (12/12/2022 11:03 PM CDT) Pathologist [facility] [place] Occult Blood Negative Negative [facility] 12/12/2022 11:32 PM CDT LABORATORY Stool RECTAL CONTENTS / Unknown Non-blood Collection / Unknown 12/12/2022 11:03 PM CDT 12/12/2022 11:11 PM CDT us Jason Tapia MD LAB - STOOLS ORDERABLES Final Result [facility] [address] [employer] Lab (1st floor, no room number) [place] [address], [facility] [phone] from Last 3 Months or Most Recently Relevant to Health Maintenance Insurance [facility] [place] BL[employer] MEDIC[employer] [facility] [place] [employer] Advance Directives For more information, please contact: [phone] * Full Code (Latest Code Status on [...] patie nt/ legal decision maker Care Teams Service Captain Relationship Specialty Start Date End Date Tyrell Schneider [address] [place] [address] PCP - General Family Medicine 02/19/23
--- OUTSIDE RECORDS SUMMARY | 2024-01-14 05:51 | XMS_ITS | Encounter Summary ---
Author Organization [facility] [place] Address [address] [place] [address] Care Team Providers Care Senior Management Consultant Name Role Phone Tyrell Schneider MD Primary Care Provider Encounter Details Date Type Department Care Team (Late st Contact Info) Description 01/01/2024 Orders Only [facility] [place] [address] [facility] [address] [place] [address] Gabriel Mena MD [address] [place] [address] Social History Tobacco Use Types [...] (01/01/2024) Hemoglobin 11.0(L) 12.0 - 16.0 g/dL [facility] Hemoglobin x 3 33.0(L) 36.0 - 48.0 % [facility] 01/01/2024 01/02/2024 5:5 6 AM CERTIFIED MASTER LOCKSMITH Narrative [facility] - 01/02/2024 Unless otherwise specified, test(s) performed at: [facility], [address], [place] [address] ORTHOPEDIC NURSE: Eze Park M.D., Ph.D For any questions, please call customer service at FREQUENCY:OTHER Resulting Agency Comment Specimen source: Blood us Gabriel Mena MD LAB BLOOD ORDERABLES Final Re sult [facility] See order comments or contact performing lab Unknown, [place] documented in this encounter Visit Diagnoses Not on filedocumented in this encounter Care Teams Senior Management Consultant Relationship Specialty Start Date End Date Tyrell Schneider MD [address] [place], [place] [id number] PCP - General 10/27/18 documented as of this encounter
--- OUTSIDE RECORDS SUMMARY | 2024-01-14 05:51 | XMS_ITS | Clinical Summary ---
Author Organization [facility] Address [address] [place] [address] Care Team Providers Care Industrial Sales Manager Name Role Phone Tyrell Schneider Primary Care Provider [phone] Allergies Active Allergy Reactions Criticality Noted Date [...] 01/09/2010 itching Niacin Rash,Itching Low 05/13/2006 itch [place] Rash Low 05/16/2010 Oxycodone Nausea and [...] times daily 3 Active neomycin-polymyx in-dexAMETHasone (MAXITROL) 3.5-10215-9.[address] 0.25 inches Into the [...] Comments Blood Pressure 166/77 02/21/2023 3:58 PM LEAK PATCHER Pulse 64 02/21/2023 3:58 PM LEAK PATCHER Temperature 36.9 C (98.4 F) 02/21/2023 3:58 PM LEAK PATCHER Respiratory Rate 18 02/21/2023 3:58 PM LEAK PATCHER Oxygen Saturation 99% 02/21/2023 3:58 PM LEAK PATCHER Inhaled Oxygen Concentration - - Weight 40.8 kg (90 lb) 02/20/2023 8:47 PM LEAK PATCHER Height 154.9 cm (5' 1) 12/13/2022 3:15 [...] WITH PLATELETS Routine 02/21/2023 8: 16 AM LEAK PATCHER BASIC METABOLIC PANEL Routine 02/21/2023 8:16 AM LEAK PATCHER GLUCOSE BY METER Routine 02/21/2023 1:08 AM LEAK PATCHER COMPREHENSIVE METABOLIC PANEL STAT 02/20/2023 8:52 AM LEAK PATCHER RENAL PANEL Routine 12/18/2022 8:45 AM LEAK PATCHER OCCULT BLOOD STOOL STAT 12/12/2022 11 :03 PM CDT from Last 3 Months or Most Recently Relevant to Health Maintenance Results * (ABNORMAL) Basic metabolic panel (02/21/2023 8:16 AM LEAK PATCHER) Sodium 134(L) 135 - 145 mmol/L 02/21/2023 8:55 AM [facility] Comment:Reference intervals for this test were updated on 11/06/2022 to more accurately reflect our healthy population. There may be differences in the flagging of prior results with similar values performed with this method. Interpretation of those prior results can be made in the context of the updated reference intervals. Potassium 4.0 3.4 - 5.3 mmol/L 02/21/2023 8:55 AM [facility] Chloride 97(L) 98 - 107 mmol/L 02/21/2023 8:55 AM [facility] Carbon Dioxide (CO2) 28 22 - 29 mmol/L 02/21/2023 8:55 AM [facility] Anion Gap 9 7 - 15 mmol/L 02/21/2023 8:55 AM [facility] Urea Nitrogen 12.8 8.0 - 23.0 mg/dL 02/21/2023 8:55 AM [facility] Creatinine 2.49(H) 0.51 - 0.95 mg/dL 02/21/2023 8:55 AM [facility] GFR Estimate 20(L) >60 mL/min/1. 73m2 02/21/2023 8:55 AM [facility] Calcium 8.6(L) 8.8 - 10.2 mg/dL 02/21/2023 8:55 AM [facility] Glucose 144(H) 70 - 99 mg/dL 02/21/2023 8:55 AM [facility] Blood STRUCTURE OF RIGHT HAND / Unknown Venipuncture / Unknown 02/21/2023 8:16 AM LEAK PATCHER 02/21/2023 8:34 AM [facility] Nidia Yanez DO LAB - BLOOD ORDERABLES Fi nal Result LABORATORY [facility] [address] Lab (1st floor, no room number) [place] [address], [facility] [phone] * (ABNORMAL) CBC with platelets (02/21/2023 8:16 AM LEAK PATCHER) WBC Count 6.6 4.0 - 11.0 10e3/uL 02/21/2023 8:39 AM LEAK PATCHER [facility] LABORATORY RBC Count 4.43 3.80 - 5.20 10e6/uL 02/21/2023 8:39 AM [facility] P[facility] Hemoglobin 12.3 11.7 - 15.7 g/dL 02/21/2023 8:39 AM LEAK PATCHER [facility] Hematocrit 39.2 35.0 - 47.0 % 02/21/2023 8:39 AM [facility]AK P[facility] MCV 89 78 - 100 fL 02/21/2023 8:39 AM LEAK PATCHER [facility] MCH 27.8 26.5 - 33.0 pg 02/21/2023 8:39 AM LEAK PATCHER [facility] MCHC 31.4(L) 31.5 - 36.5 g/dL 02/21/2023 8:39 AM LEAK PATCHER [facility] RDW 19.3(H) 10.0 - 15.0 % 02/21/2023 8:39 AM LEAK P[facility] Platelet Count 292 150 - 450 10e3/uL 02/21/2023 8:39 AM LEAK PATCHER [facility] Blood STRUCTURE OF RIGHT HAND / Unknown Venipuncture / Unknown 02/21/2023 8:16 AM LEAK PATCHER 02/21/2023 8:34 AM LEAK PATCHER us Nidia Yanez DO LAB - BLOOD ORDERABLES Fi nal Result [facility] [address] Lab (1st floor, no room number) [place] [address], [facility] [phone] * (ABNORMAL) Glucose by meter (02/21/2023 1:08 AM LEAK PATCHER) [facility] GLUCOSE BY METER POCT 131(H) 70 - 99 mg/dL 02/21/2023 1:17 AM LEAK PATCHER LABORATORY POC Blood, Capillary BLOOD SPECIMEN / Unknown 02/21/2023 1:08 AM LEAK PATCHER 02/21/2023 1:17 AM LEAK PATCHER us Joseph Jeffers MD LAB - BEAKER POCT Final R esult [facility] [address] Lab (1st floor, no room number) [place] [address], [facility] [phone] * (ABNORMAL) Comprehensive metabolic panel (02/20/2023 8:52 AM LEAK PATCHER) [facility] Sodium 135 135 - 145 mmol/L 02/20/2023 9:27 AM [facility] Comment:Reference intervals for this test were updated on 11/06/2022 to more accurately reflect our healthy population. There may be differences in the flagging of prior results with similar values performed with this method. Interpretation of those prior results can be made in the context of the updated reference intervals. Potassium 4.2 3.4 - 5.3 mmol/L 02/20/2023 9:27 AM [facility] Carbon Dioxide (CO2) 25 22 - 29 mmol/L 02/20/2023 9:27 AM [facility] Anion Gap 12 7 - 15 mmol/L 02/20/2023 9:27 AM [facility] Urea Nitrogen 34.5(H) 8.0 - 23.0 mg/dL 02/20/2023 9:27 AM [facility] Creatinine 3.81(H) 0.51 - 0.95 mg/dL 02/20/2023 9:27 AM [facility] GFR Estimate 12(L) >60 mL/min/1. 73m2 02/20/2023 9:27 AM [facility] Calcium 8.7(L) 8.8 - 10.2 mg/dL 02/20/2023 9:27 AM [facility] Chloride 98 98 - 107 mmol/L 02/20/2023 9:27 AM [facility] Glucose 112(H) 70 - 99 mg/dL 02/20/2023 9:27 AM [facility] Alkaline Phosphatase 122 40 - 150 U/L 02/20/2023 9:27 AM [facility] Comment:Reference intervals for this test were updated on 12/25/2022 to more accurately reflect our healthy population. There may be differences in the flagging of prior results with similar values performed with this method. Interpretation of those prior results can be made in the context of the updated reference intervals. AST 18 0 - 45 U/L 02/20/2023 9:27 AM [facility] Comment:Reference intervals for this test were updated on 07/23/2022 to more accurately reflect our healthy population. There may be differences in the flagging of prior results with similar values performed with this method. Interpretation of those prior results can be made in the context of the updated reference intervals. ALT 5 0 - 50 U/L 02/20/2023 9:27 AM [facility] P[facility]ORAT[facility] Comment:Reference intervals for this test were updated on 07/23/2022 to more accurately reflect our healthy population. There may be differences in the flagging of prior results with similar values performed with this method. Interpretation of those prior results can be made in the context of the updated reference intervals. Protein Total 6.3(L) 6.4 - 8.3 g/dL 02/20/2023 9:27 AM [facility] Albumin 3.2(L) 3.5 - 5.2 g/dL 02/20/2023 9:27 AM [facility] Bilirubin Total 0.2 <=1.2 mg/dL 02/20/2023 9:27 AM [facility] LABORAT[facility] Blood STRUCTURE OF LEFT UPPER LIMB / Unknown Venipuncture / Unknown 02/20/2023 8:52 AM LEAK PATCHER 02/20/2023 8:59 AM LEAK PATCHER us Kai Khan DO LAB - BLOOD ORDERABLES Fin al Result LABORATORY [facility] [address] [facility] Lab (1st floor, no room number) [place] [address], [facility] [phone] * (ABNORMAL) Renal panel (12/18/2022 8:45 AM LEAK PATCHER) [facility] Sodium 135 135 - 145 mmol/L 12/18/2022 9:44 AM LEAK PATCHER LABORATORY Comment:Reference intervals for this test were updated on 11/06/2022 to more accurately reflect our healthy population. There may be differences in the flagging of prior results with similar values performed with this method. Interpretation of those prior results can be made in the context of the updated reference intervals. Potassium 4.2 3.4 - 5.3 mmol/L 12/18/2022 9:44 AM [facility] P[facility] LABORATORY Chloride 99 98 - 107 mmol/L 12/18/2022 9:44 AM [facility] LABORAT[facility] Carbon Dioxide (CO2) 29 22 - 29 mmol/L 12/18/2022 9:44 AM [facility] Anion Gap 7 7 - 15 mmol/L 12/18/2022 9:44 AM [facility] Glucose 128(H) 70 - 99 mg/dL 12/18/2022 9:44 AM [facility] Urea Nitrogen 17.7 8.0 - 23.0 mg/dL 12/18/2022 9:44 AM [facility] Creatinine 2.67(H) 0.51 - 0.95 mg/dL 12/18/2022 9:44 AM [facility] GFR Estimate 18(L) >60 mL/min/1. 73m2 12/18/2022 9:44 AM [facility] Calcium 7.6(L) 8.8 - 10.2 mg/dL 12/18/2022 9:44 AM [facility] Albumin 2.6(L) 3.5 - 5.2 g/dL 12/18/2022 9:44 AM [facility] Phosphorus 2.3(L) 2.5 - 4.5 mg/dL 12/18/2022 9:44 AM [facility] Blood STRUCTURE OF RIGHT UPPER LIMB / Unknown Venipuncture / Unknown 12/18/2022 8:45 AM LEAK PATCHER 12/18/2022 8:50 AM LEAK PATCHER us David Treviño MD LAB - BLOOD ORDERABLES Final Res ult LABORATORY [facility] [address] Lab (1st floor, no room number) [place] [address], [facility] [phone] * Stool: occult blood (12/12/2022 11:03 PM CDT) Occult Blood Negative Negative JENNIFER 12/12/2022 11:32 PM CDT LABORATORY Stool RECTAL CONTENTS / Unknown Non-blood Collection / Unknown 12/12/2022 11:03 PM CDT 12/12/2022 11:11 PM CDT us Jason Tapia MD LAB - STOOLS ORDERABLES Final Result [facility] [address] [facility] Lab (1st floor, no room number) [place] [address], [facility] [phone] from Last 3 Months or Most Recently Relevant to Health Maintenance Insurance [facility] [employer] [place] [phone] [facility] [employer] Advance Directives For more information, please contact: [phone] * Full Code (Latest Code Status on [...] felipae nt/ legal decision maker Care Teams Industrial Sales Manager Relationship Specialty Start Date End Date Tyrell Schneider [address] [place] [address] PCP - General Family Medicine 02/19/23
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
--- OUTSIDE RECORDS SUMMARY | 2024-01-14 05:51 | XMS_ITS | Clinical Summary ---
Author Organization [facility] Facility Address [address] [facility] [address] [place] [address] Care Team Providers Care Barrel Painter Name Role Phone Tyrell Schneider MD Primary Care Provider [phone] Active Problems Problem Noted Date Diagnosed Date End stage renal disease 10/22/2023 Dependence on renal dialysis 10/22/2023 Encounters Date Type Department Care Team Description 01/08/2024 Orders Only [facility] [address] [place] [phone] Gabriel Mena MD 01/01/2024 Orders Only [facility] [address] [place] [phone] Gabriel Mena MD 12/27/2023 Treatment [facility] [address] [place] [address] Gabriel Mena MD 12/18/2023 Treatment [facility] [address] [place] [address] Gillian Rosa, WEIGHT YARDAGE CHECKER-HEBREW CANTOR 12/18/2023 Orders Only [facility] [address] [place] [address] Gabriel Mena MD 12/11/2023 Orders Only [facility] [address] [place] [phone] Gabriel Mena MD 12/09/2023 Treatment [facility] [place] [address] [place] [address] Gabriel Mena MD 12/04/2023 Orders Only [facility] [place] [address] [place] [address] Gabriel Mena MD 11/27/2023 Orders Only [facility] [place] [address] [facility] [place] [address] Gabriel Mena MD 11/25/2023 Treatment [facility] [address] [place] [address] Gillian Rosa, WEIGHT YARDAGE CHECKER-HEBREW CANTOR 11/20/2023 Orders Only [facility] [place] [address] [facility], [place] [address] Gabriel Mena MD 11/13/2023 Orders Only [facility] [place] [address] [facility], [place] [address] Gabriel Mena MD 11/10/2023 Refill [facility] [place] [address] [facility] [address] Gabriel Mena MD 11/08/2023 Treatment [facility] [place] [address] [place] [address] Gillian Rosa, WEIGHT YARDAGE CHECKER-HEBREW CANTOR 11/08/2023 Orders Only [facility] [place] [address] [facility] [address] Gabriel Mena MD 10/30/2023 Orders Only [facility] [place] [address] [facility] [address] Gabriel Mena MD 10/28/2023 Treatment [facility] [place] [address] [place] [address] Gabriel Mena MD 10/23/2023 Orders Only [facility] [place] [address] [place] [address] Gabriel Mena MD 10/16/2023 Orders Only [facility] [place] [address] [place] [phone] Gabriel Mena MD from Last 3 Months [...] [facility] 01/08/2024 01/09/2024 6:0 8 AM RN CONCURRENT REVIEW Narrative [facility] - 01/09/2024 Unless otherwise specified, test(s) performed at: [facility], [address] [place] [address], [place] [address] FELT CUTTING MACHINE OPERATOR: Eze Park M.D., Ph.D For any questions, please call customer service at FREQUENCY:OTHER Resulting Agency Comment Specimen source: Blood Gabriel Mena MD LAB BLOOD ORDERABLES Final Re sult [facility] See order comments or contact performing lab Unknown, [place] * (ABNORMAL) HD KINETICS (12/18/2023) Only the most recent of3 resultswithin the time period is included. Pathologist [facility] % Urea Reduction 82(H) 65 - 80 % [facility] 12/18/2023 12/19/2023 5:1 5 PM RN CONCURRENT REVIEW Narrative Resulting Agency Comment Specimen source: Plasma Gabriel Mena MD LAB BLOOD ORDERABLES Final Re sult [facility] See order comments or contact performing lab Unknown, [place] * (ABNORMAL) SPECIAL CHEMISTRY (12/18/2023) Pathologist [facility] Vitamin B-12 536 211 - 911 pg/mL [facility] Vitamin D, 25-OH, Total 15.7(L) 30.0 - 100.0 ng/mL [facility] Comment: Please Note: Effective February 19, 2021, the methodology for this test has changed to the SIEMENS ATELLICA method 12/18/2023 12/19/2023 6:4 8 AM RN CONCURRENT REVIEW Narrative Resulting Agency Comment Specimen source: Serum Gabriel Mena MD LAB BLOOD BANK TEST ORDERABLE S Final Result Performing Organization Address [facility] Co de Phone Number [facility] See order comments or contact performing lab Unknown, [place] * POST CHEMISTRY (12/18/2023) Only the most recent of3 resultswithin the time period is included. BUN Post Dialysis 13 6 - 19 mg/dL [facility] 12/18/2023 12/19/2023 5:1 5 PM RN CONCURRENT REVIEW Narrative [facility] - 12/19/2023 Unless otherwise specified, test(s) performed at: [facility], [address] [place] [address], [place] [address] FELT CUTTING MACHINE OPERATOR: Eze Park M.D., Ph.D For any questions, please call customer service at FREQUENCY:MONTHLY Resulting Agency Comment Specimen source: Plasma Gabriel Mena MD LAB BLOOD ORDERABLES Final Re sult Performing Organization Address [facility] de Phone Number [facility] See order comments or contact performing lab Unknown, [place] * IMMUNO CHEMISTRY (12/18/2023) Hepatitis B Surface Ab 14 mIU/mL [facility] Comment: The anti-HBs (Hepatitis B surface antibody) [...] antibody present. 12/18/2023 12/19/2023 7:4 4 AM RN CONCURRENT REVIEW Narrative Resulting Agency Comment Specimen source: Plasma Gabriel Mena MD LAB BLOOD ORDERABLES Final Re sult Performing Organization Address [facility] Co de Phone Number REC[facility] See order comments or contact performing lab Unknown, [place] * (ABNORMAL) TRACE ELEMENTS (12/18/2023) Pathologist [facility] Aluminum 11(H) 0 - 10 mcg/L [facility] Comment: This test was developed and its performance characteristics determined by [facility]. It has not been cleared or approved by the FDA. The laboratory is regulated under CLIA as qualified to perform high complexity testing. This test is used for clinical purposes. It should not be regarded as investigational or for research. 12/18/2023 12/19/2023 6:1 2 AM RN CONCURRENT REVIEW Narrative [facility] - 12/19/2023 Unless otherwise specified, test(s) performed at: [facility], [address] [place] [address], [place] [address] FELT CUTTING MACHINE OPERATOR: Eze Park M.D., Ph.D For any questions, please call customer service at FREQUENCY:MONTHLY Resulting Agency Comment Specimen source: Serum us Gabriel Mena MD LAB BLOOD ORDERABLES Final [facility] Performing Organization Address [facility] de Phone Number [facility] See order comments or contact performing lab Unknown, [place] * (ABNORMAL) [facility] Chemistry (12/18/2023) Only the most recent of5 resultswithin the time period is included. Pathologist [facility] BUN 71(H) 6 - 19 mg/dL [facility] [...] [facility] 12/18/2023 12/19/2023 6:4 8 AM RN CONCURRENT REVIEW Narrative [facility] - 12/19/2023 Unless otherwise specified, test(s) performed at: [facility], [address] [place] [address], [place] [address] FELT CUTTING MACHINE OPERATOR: Eze Park M.D., Ph.D For any questions, please call customer service at FREQUENCY:MONTHLY Resulting Agency Comment Specimen source: Serum Gabriel Mena MD LAB BLOOD ORDERABLES Final Re sult Performing Organization Address City/[facility]/ZIP Co de Phone Number [facility] See order comments or contact performing lab Unknown, [place] * [facility] Results (12/18/2023) Only the most recent of3 resultswithin the time period is included. eKt/V Gotch 1.49 [facility] e Center PCR 48.46 [facility] spKt/V Gotch 1.87 [facility] eKt/V (Tattersall) 1.54 [facility] eNPCR 1.16 [facility] eKdrt/V 1.49 [facility] nPCR_HD 1.28 [facility] WSTDKT/V 2.6 [facility] spKt/V (Daugirdas II) 1.87 [facility] 12/18/2023 12/18/2023 [facility] Ordering Provider LAB BLOOD ORDERABLES Final Result Performing Organization Address City/[facility]/ZIP Co de Phone Number [facility] Contact Performing lab Unknown, [place] from Last 3 Months Insurance [facility] MEDICARE Care Teams Barrel Painter Relationship Specialty Start Date End Date Tyrell Schneider MD [address] [place] [address] PCP - General 10/27/18
--- OUTSIDE RECORDS SUMMARY | 2024-01-14 05:52 | XMS_ITS | Encounter Summary ---
Author Organization [facility] Address [address] [place] [address] Care Team Providers Care Transactional Attorney Name Role Phone Unavailable Primary Care Provider Unavailabl e Reason for Visit * Reason Comments Med Refill Encounter Details Date Type Department Care Team ([facility] st Contact Info) Description 11/06/2023 Refill Division of General Internal Medicine in [place], [place] [address] [place] [phone] Daniel Ingram M.D. [address] [place] [phone] Med Refill Social History Tobacco Use Types [...] on file Legal Sex Female 10:27 PM AUTOMATION QA TESTER Gender Identity Female 01/08/2022 2:47 PM AUTOMATION QA TESTER Sexual Orientation Straight 01/08/2022 2: 47 PM AUTOMATION QA TESTER documented as of this encounter Plan of Treatment Not on file documented as of this encounter Visit Diagnoses Not on filedocumented in this encounter
--- OUTSIDE RECORDS SUMMARY | 2024-01-14 05:52 | XMS_ITS | Encounter Summary ---
Author Organization [facility] [place] Address [address] [place] [address] Care Team Providers Care Waitress Name Role Phone Tyrell Schneider MD Primary Care Provider [phone] Encounter Details Date Type Department Care Team (Late st Contact Info) Description 10/16/2023 Orders Only [facility] [place] [address] [facility] [address] [place] [address] Gabriel Mena MD [address] [place] [address] Social History Tobacco Use Types [...] eKt/V (Tattersall) 1.49 [facility] eNPCR 1.19 [facility] eKt/V Gotch 1.45 [facility] eKdrt/V 1.45 [facility] spKt/V Gotch 1.81 [facility] ge [place] WSTDKT/V 1.7 [facility] spKt/V (Daugirdas II) 1.80 [facility] nPCR_HD 1.32 [facility] PCR 50.00 [facility] 10/16/2023 10/16/2023 [facility] Ordering Provider LAB BLOOD ORDERABLES Final Result [facility] Contact Performing lab Unknown, [place] * HD KINETICS (10/16/2023) Pathologist [facility] % Urea Reduction 77 65 - 80 % [facility] 10/16/2023 10/18/2023 1:4 9 PM CDT Narrative Resulting Agency Comment Specimen source: Plasma Gabriel Mena MD LAB BLOOD ORDERABLES Final Re sult Performing Organization Address [facility] Co de Phone Number [facility] See order comments or contact performing lab Unknown, [place] * POST CHEMISTRY (10/16/2023) Pathologist [facility] BUN Post Dialysis 17 6 - 19 mg/dL [facility] 10/16/2023 10/18/2023 1:4 9 PM CDT Narrative [facility] - 10/18/2023 Unless otherwise specified, test(s) performed at: [facility], [address] [place] [address], [place] [address] RESIDENTIAL CASE MANAGER: Eze Park M.D., Ph.D For any questions, please call customer service at FREQUENCY:MONTHLY Resulting Agency Comment Specimen source: Plasma Gabriel Mena MD LAB BLOOD ORDERABLES Final Re sult [facility] See order comments or contact performing [...] 10/16/2023 10/18/2023 3:2 4 PM CDT Narrative [facility] SPECTRA K[facility] - 10/18/2023 Unless otherwise specified, test(s) performed at: [facility], [address] [place] [address], [place] [address] RESIDENTIAL CASE MANAGER: Eze Park M.D., Ph.D For any questions, please call customer service at FREQUENCY:MONTHLY Resulting Agency Comment Specimen source: Blood us Gabriel Mena MD LAB BLOOD ORDERABLES Final Re sult [facility] See order comments or contact performing lab [...] 10/18/2023 Unless otherwise specified, test(s) performed at: [facility], [address] [place] [address], [place] [address] RESIDENTIAL CASE MANAGER: Eze Park M.D., Ph.D For any questions, please call customer service at FREQUENCY:MONTHLY Resulting Agency Comment Specimen source: Serum us Gabriel Mena MD LAB BLOOD ORDERABLES Final Re sult [facility] See order comments or contact performing lab Unknown, [place] documented in this encounter Visit Diagnoses Not on filedocumented in this encounter Care Teams Waitress Relationship Specialty Start Date End Date Tyrell Schneider MD [address] [place] [address] PCP - General 10/27/18 documented as of this encounter
--- OUTSIDE RECORDS SUMMARY | 2024-01-14 05:52 | XMS_ITS | Encounter Summary ---
Author Organization [facility] Address [address] [place] [address] Care Team Providers Care Care Technician Name Role Phone Tyrell Schneider MD Primary Care Provider [phone] Encounter Details Date Type Department Care Team (Late st Contact Info) Description 11/13/2023 Orders Only [facility] [place] [address] [facility] [address] [place] [address] Gabriel Mena MD [address] [place] [address] Social History Tobacco Use Types [...] eNPCR 1.15 [facility] spKt/V Gotch 1.91 [facility] spKt/V (Daugirdas II) 1.90 [facility] nPCR_HD 1.26 [facility] PCR 48.14 [facility] eKt/V Gotch 1.53 [place] [facility] e [place] eKt/V (Tattersall) 1.57 [facility] WSTDKT/V 2.6 [facility] eKdrt/V 1.53 [facility] 11/13/2023 11/13/2023 [facility] Ordering Provider LAB BLOOD ORDERABLES Final Result Performing Organization Address City/[facility]/ZIP Co de Phone Number [facility] Contact Performing lab Unknown, [place] * (ABNORMAL) HD KINETICS (11/13/2023) Pathologist [facility] % Urea Reduction 81(H) 65 - 80 % [facility] 11/13/2023 11/14/2023 6:0 0 PM CDT Narrative Resulting Agency Comment Specimen source: Plasma Gabriel Mena MD LAB BLOOD ORDERABLES Final Re sult Performing Organization Address [facility] Co de Phone Number [facility] See order comments or contact performing lab Unknown, [place] * POST CHEMISTRY (11/13/2023) Pathologist [facility] BUN Post Dialysis 13 6 - 19 mg/dL [facility] 11/13/2023 11/14/2023 6:0 0 PM CDT Narrative [facility] - 11/14/2023 Unless otherwise specified, test(s) performed at: [facility], [address] [place] [address], [place] [address] STEEL POST INSTALLER: Eze Park M.D., Ph.D For any [...] 11/13/2023 11/14/2023 6:5 5 PM CDT Narrative [facility]RA [facility] - 11/14/2023 Unless otherwise specified, test(s) performed at: [facility], [address] [place] [address], [place] [address] STEEL POST INSTALLER: Eze Park M.D., Ph.D For any questions, please call customer service at FREQUENCY:MONTHLY Resulting Agency Comment Specimen source: Serum us Gabriel Mena MD LAB BLOOD ORDERABLES Final Re sult [facility] See order comments or contact performing [...] 11/13/2023 11/14/2023 6:1 6 PM CDT Narrative [facility] - 11/14/2023 Unless otherwise specified, test(s) performed at: [facility], [address] [place] [address], [place] [address] STEEL POST INSTALLER: Eze Park M.D., Ph.D For any questions, please call customer service at FREQUENCY:MONTHLY Resulting Agency Comment Specimen source: Blood us Gabriel Mena MD LAB BLOOD ORDERABLES Final Re sult [facility] See order comments or contact performing lab Unknown, [place] documented in this encounter Visit Diagnoses Not on filedocumented in this encounter Care Teams Care Technician Relationship Specialty Start Date End Date Tyrell Schneider MD [address] [place] [address] PCP - General 10/27/18 documented as of this encounter
--- OUTSIDE RECORDS SUMMARY | 2024-01-14 05:52 | XMS_ITS | Encounter Summary ---
Author Organization [facility] Address [address] [place] [address] Care Team Providers Care Director Of Purchasing Name Role Phone Unavailable Primary Care Provider Unavailabl e Encounter Details Date Type Department Care Team (Late st Contact Info) Description 06/11/2016 Historical Ophthalmology RST OPH Deann Colby M.D. [address] [place] [phone] Social History Tobacco Use Types Packs/Day Years Used Date Smoking Tobacco: Never Assessed Comments Unknown Sex and Gender Information Value Date Recorded Sex Assigned at Not on file Legal Sex Female 10:27 PM FUN HOUSE OPERATOR Gender Identity Female 01/08/2022 2:47 PM FUN HOUSE OPERATOR Sexual Orientation Straight 01/08/2022 2: 47 PM FUN HOUSE OPERATOR documented as of this encounter Progress [...] today nearly 1 year after surgery with HAND CULTIVATOR. Exam is stable with 1 loose suture. [...] right eye CDM Reports - [facility] Id: [id number] Status: Fnl documented in this encounter Plan of Treatment Not on file documented as of this encounter Visit Diagnoses Not on filedocumented in this encounter
--- OUTSIDE RECORDS SUMMARY | 2024-01-14 05:52 | XMS_ITS | Encounter Summary ---
Author Organization [facility] Address [address] [place] [address] Care Team Providers Care Doorperson Or Luggage Porter Name Role Phone Unavailable Primary Care Provider Unavailabl e Encounter Details Date Type Department Care Team (Late st Contact Info) Description 07/12/2016 Historical Ophthalmology RST OPH Deann Colby M.D. [address] [place] [phone] Social History Tobacco Use Types Packs/Day Years Used Date Smoking Tobacco: Never Assessed Comments Unknown Sex and Gender Information Value Date Recorded Sex Assigned at Not on file Legal Sex Female 10:27 PM ACCOUNTING SYSTEM EXPERT Gender Identity Female 01/08/2022 2:47 PM ACCOUNTING SYSTEM EXPERT Sexual Orientation Straight 01/08/2022 2: 47 PM ACCOUNTING SYSTEM EXPERT documented as of this encounter Progress Notes [...] today nearly 1 year after surgery with TESTING ENGINEER. Exam is stable with 1 loose suture. IOP stable. Removed 11 sutures in total today. Continue prednisolone 1 x daily. Refresh tears 4x daily. RTC 4-6 weeks with refraction when Dr. Payton is in clinic. 12 Jul 2016: Seen with TESTING ENGINEER. Exam stable with 1 loose suture. IOP [...] sent to Benigno Bishop, OD, FAAO at [facility] who also cares for Ms. Vanegas. Recommend he recheck IOP and visual acuity in 4 months. 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 Return to [place] PRN. #2 Background diabetic retinopathy, right eye [...] right eye CDM Reports - EYEGEN Id: [id number] Status: Fnl documented in this encounter Plan of Treatment Not on file documented as of this encounter Visit Diagnoses Not on filedocumented in this encounter
--- OUTSIDE RECORDS SUMMARY | 2024-01-14 05:52 | XMS_ITS | Encounter Summary ---
Author Organization [facility] [place] Address [address] [place] [address] Care Team Providers Care Waiter/Waitress Counter Name Role Phone Tyrell Schneider MD Primary Care Provider [phone] Encounter Details Date Type Department Care Team (Late st Contact Info) Description 10/28/2023 Treatment [facility] [place] [address] [place] [address] Gabriel Mena MD [address] [place] [phone] Social History Tobacco Use Types Packs/Day Years [...] Name: Maricruz Vanegas : 1945 Chart #: [id number] Sex: F This patient was personally seen [...] PM ) BP (sit): 170/60 AP(-) / SILVICULTURE PROFESSOR: 208/225 Pulse: 58 Chairside data as of [...] 3 Values 10/25/2023 09/13/2023 08/16/2023 Access Flow [id number] Treatment Medication Orders Medication Sig Start Date End Date Heparin Sodium (Porcine) 1,000 Units/mL Systemic 2000 units IVP Every Treatment 02/15/2023 02/14/2024 Iron Sucrose (Venofer) 100 mg IVP 3X Week During Dialysis 10/21/2023 10/30/2023 Mircera 50 mcg IVP Every 2 weeks During Dialysis 10/28/2023 10/26/2024 Vitamin D (Calcitriol) Oral 0.5 mcg ORAL 3X Week During Dialysis 03/25/2023 03/20/2024 ADULT BASIC EDUCATION MANAGER: Gabriel Mena MD LOCATION: [phone] SCHEDULE: -W- 2nd Shift EDW: kg. DIALYZER: [...] with stable access flow. Advanced Practitioner Subjective SOUND ASSISTANT 10/09/2023: Patient seen on dialysis. Today she denies SOB, chest pain or cramping. Arm access working well. BP elevated. Leaving at EDW. Will continue to monitor weight. SOUND ASSISTANT 09/02/2023: Spoke with patient on dialysis. Reports [...] had catheter PD catheter placed 05/2018 at [facility], removed for peritonitis 11/2022 Anemia Assessment HEMOGLOBIN [...] above goal. Intact PTH is at goal. Vet Assistant will adjust binders and vitamin D per [...] on filedocumented in this encounter Care Teams Waiter/Waitress Counter Relationship Specialty Start Date End Date Tyrell Schneider MD [address] [place] [address] PCP - General 10/27/18 documented as of this encounter
--- OUTSIDE RECORDS SUMMARY | 2024-01-14 05:52 | XMS_ITS | Encounter Summary ---
Author Organization [facility] Address [address] [place] [address] Care Team Providers Care Mis Specialist Name Role Phone Unavailable Primary Care Provider Unavailabl e Encounter Details Date Type Department Care Team (Late st Contact Info) Description 04/17/2016 Historical Ophthalmology RST OPH Daniel Clements M.D. [address] [place] [phone] Social History Tobacco Use Types Packs/Day Years Used Date Smoking Tobacco: Never Assessed Comments Unknown Sex and Gender Information Value Date Recorded Sex Assigned at Not on file Legal Sex Female 10:27 PM CHANNEL OPENER Gender Identity Female 01/08/2022 2:47 PM CHANNEL OPENER Sexual Orientation Straight 01/08/2022 2: 47 PM CHANNEL OPENER documented as of this encounter Progress Notes * Daniel Clements M.D. - 04/17/2016 9:37 AM CST Eye General CHIEF COMPLAINT Left eye itching all night long; 2.5 weeks; tearing a little. HISTORY OF PRESENT ILLNESS [place] over left eye pupil. No eye pain. [...] right eye CDM Reports - EYEGEN Id: [id number] Status: Fnl documented in this encounter Plan of Treatment Not on file documented as of this encounter Visit Diagnoses Not on filedocumented in this encounter
--- OUTSIDE RECORDS SUMMARY | 2024-01-14 05:52 | XMS_ITS | Encounter Summary ---
Author Organization [facility] Address [address] [place] [address] Care Team Providers Care Shipping Manager Name Role Phone Unavailable Primary Care Provider Unavailabl e Encounter Details Date Type Department Care Team (Late st Contact Info) Description 06/05/2016 Historical Ophthalmology RST OPH Deann Colby M.D. [address] [place] [phone] Social History Tobacco Use Types Packs/Day Years Used Date Smoking Tobacco: Never Assessed Comments Unknown Sex and Gender Information Value Date Recorded Sex Assigned at Not on file Legal Sex Female 10:27 PM CONSTRUCTION REPRESENTATIVE Gender Identity Female 01/08/2022 2:47 PM CONSTRUCTION REPRESENTATIVE Sexual Orientation Straight 01/08/2022 2: 47 PM CONSTRUCTION REPRESENTATIVE documented as of this encounter Progress Notes [...] in clinic. CDM Reports - EYEGEN Id: [id number] Status: Fnl documented in this encounter Plan of Treatment Not on file documented as of this encounter Visit Diagnoses Not on filedocumented in this encounter
--- OUTSIDE RECORDS SUMMARY | 2024-01-14 05:52 | XMS_ITS | Encounter Summary ---
Author Organization [facility] Address [address] [place] [address] Care Team Providers Care Power Transmission Engineer Name Role Phone Unavailable Primary Care Provider Unavailabl e Encounter Details Date Type Department Care Team (Late st Contact Info) Description 01/23/2016 Historical Ophthalmology RST OPH Deann Colby M.D. [address] [place] [phone] Social History Tobacco Use Types Packs/Day Years Used Date Smoking Tobacco: Never Assessed Comments Unknown Sex and Gender Information Value Date Recorded Sex Assigned at Not on file Legal Sex Female 10:27 PM HUMAN RESOURCES MANAGER Gender Identity Female 01/08/2022 2:47 PM HUMAN RESOURCES MANAGER Sexual Orientation Straight 01/08/2022 2: 47 PM HUMAN RESOURCES MANAGER documented as of this encounter Progress [...] vision, worsening concerns. Must come in when ROLLING MACHINE OPERATOR AUTOMATIC is here (preferably as COS staff). Use [...] #4 Floaters, right eye CDM Reports - [facility]ur[facility] Id: [id number] Status: Fnl documented in this encounter Plan of Treatment Not on file documented as of this encounter Visit Diagnoses Not on filedocumented in this encounter
--- OUTSIDE RECORDS SUMMARY | 2024-01-14 05:52 | XMS_ITS | Encounter Summary ---
Author Organization [facility] Address [address] [place] [address] Care Team Providers Care Etcher Printed Circuit Boards Name Role Phone Tyrell Schneider MD Primary Care Provider [phone] Encounter Details Date Type Department Care Team ([facility] st Contact Info) Description 12/18/2023 Treatment [facility] [place] [address] [place] [address] Ana Rosa APRN-SONG WRITER [address] [facility] [address] [place] [address] Social History Tobacco Use Types Packs/Day Years Used Date Smoking Tobacco: Never Assessed Comments Unknown Sex and Gender Information Value Date Recorded Sex Assigned at Not on file Legal Sex Female 7:04 PM EDT Gender Identity Not on file Sexual Orientation Not on file documented as of this encounter Miscellaneous Notes * Dialysis Note - Ana oRsa APRN-SONG WRITER - 12/18/2023 12:00 AM SOCK LINER Patient: Maricruz Vanegas : 1945 Note Type: Dialysis Rounds-Comp Service Date: 12/18/2023 This patient was personally seen for a complete visit as part of routine monthly dialysis care for end stage renal disease. Attending Flight Radio Officer: LEISA SMITH Dialysis Location: [facility] Schedule: Shift: 2 OVERVIEW Patient is stable. Patient has no complaints. COMMENTS: COUNTER INTELLIGENCE AGENT 12/23/2023: Seen on dialysis. She is happy to be dialyzing in iso room. Reported no new dialysis concerns. BP has been elevated. Arm HOME MEDICATIONS [facility] Out[facility] Medications albuterol sulfate 2.5 mg/3 mL [...] noted. Counseled regarding dietary compliance. Referred to reeling and tubing machine operator for further counseling. Calcium controlled. Bone and [...] 12/27/2023 at 04:07:27 PM Transcribed by: ANA ORSA APRN-CNP on 12/18/2023 at 12:51:57 PM documented in this encounter Plan of Treatment Not on file documented as of this encounter Visit Diagnoses Not on filedocumented in this encounter Care Teams Etcher Printed Circuit Boards Relationship Specialty Start Date End Date Tyrell Schneider MD [address] [place] [address] PCP - General 10/27/18 documented as of this encounter
--- OUTSIDE RECORDS SUMMARY | 2024-01-14 05:52 | XMS_ITS | Encounter Summary ---
Author Organization [facility] Address [address] [place] [address] Care Team Providers Care Sander And Polisher Name Role Phone Unavailable Primary Care Provider Unavailabl e Reason for Visit * Reason Comments Med Refill Encounter Details Date Type Department Care Team ([facility] st Contact Info) Description 12/14/2023 Refill Department of Ophthalmology in [place], [place] [address] [place] [phone] Luma Solis M.D., M.S. [address] [place] [phone] Med Refill Social History Tobacco Use Types [...] on file Legal Sex Female 10:27 PM SALT WASHER HARVESTING STATION Gender Identity Female 01/08/2022 2:47 PM SALT WASHER HARVESTING STATION Sexual Orientation Straight 01/08/2022 2: 47 PM SALT WASHER HARVESTING STATION documented as of this encounter Plan of Treatment Not on file documented as of this encounter Visit Diagnoses Not on filedocumented in this encounter
--- OUTSIDE RECORDS SUMMARY | 2024-01-14 05:52 | XMS_ITS | Encounter Summary ---
Author Organization [facility] Address [address] [place] [address] Care Team Providers Care General Engineering Teacher Name Role Phone Tyrell Schneider MD Primary Care Provider [phone] Encounter Details Date Type Department Care Team (Late st Contact Info) Description 11/20/2023 Orders Only [facility] [place] [address] [facility] [address] [place] [address] Gabriel Mena MD [address] [place] [address] Social History Tobacco Use Types [...] (11/20/2023) Hemoglobin 12.2 12.0 - 16.0 g/dL [facility] Hemoglobin x 3 36.6 36.0 - 48.0 % [facility] 11/20/2023 11/21/2023 3:5 3 AM CDT Narrative [facility] - 11/21/2023 Unless otherwise specified, test(s) performed at: [facility], [address] [place], [place] [address], [place] [address] BIZTALK ARCHITECT: Eze Park M.D., Ph.D For any questions, please call customer service at FREQUENCY:OTHER Resulting Agency Comment Specimen source: Blood us Gabriel Mena MD LAB BLOOD ORDERABLES Final Re sult [facility] See order comments or contact performing lab Unknown, [place] documented in this encounter Visit Diagnoses Not on filedocumented in this encounter Care Teams General Engineering Teacher Relationship Specialty Start Date End Date Tyrell Schneider MD [address] [place] [address] PCP - General 10/27/18 documented as of this encounter
--- OUTSIDE RECORDS SUMMARY | 2024-01-14 05:52 | XMS_ITS | Encounter Summary ---
Author Organization [facility] Address [address] [place] [address] Care Team Providers Care Radiation Oncology Nurse Name Role Phone Tyrell Schneider MD Primary Care Provider [phone] Encounter Details Date Type Department Care Team (Late st Contact Info) Description 12/04/2023 Orders Only [facility] [place] [address] [place] [address] Gabriel Mena MD [address] [place] [address] Social History Tobacco Use Types [...] (12/04/2023) Hemoglobin 11.3(L) 12.0 - 16.0 g/dL [facility] Hemoglobin x 3 33.9(L) 36.0 - 48.0 % [facility] 12/04/2023 12/05/2023 2:0 4 AM CDT Narrative [facility] - 12/05/2023 Unless otherwise specified, test(s) performed at: [facility], [address] [facility], [place] [address] VACUUM REPAIRER: Eze Park M.D., Ph.D For any questions, please call customer service at FREQUENCY:OTHER Resulting Agency Comment Specimen source: Blood us Gabriel Mena MD LAB BLOOD ORDERABLES Final Re sult [facility] See order comments or contact performing lab Unknown, [place] documented in this encounter Visit Diagnoses Not on filedocumented in this encounter Care Teams Radiation Oncology Nurse Relationship Specialty Start Date End Date Tyrell Schneider MD [address] [place] [address] PCP - General 10/27/18 documented as of this encounter
--- OUTSIDE RECORDS SUMMARY | 2024-01-14 05:52 | XMS_ITS ---
Author Organization [facility] Address [address] [place] [address] Care Team Providers Care Manager General Name Role Phone Unavailable Unavailable Unavailable Surgery Details Not on file Complications Check Surgery Details section. Procedure Estimated Blood Loss Check Surgery Details section. Procedure Findings Check Surgery Details section. Procedure Specimens Taken Check Surgery Details section.
--- OUTSIDE RECORDS SUMMARY | 2024-01-14 05:52 | XMS_ITS | Encounter Summary ---
Author Organization [facility] Address [address] [place] [address] Care Team Providers Care Medical Delivery Technician Name Role Phone Tyrell Schneider MD Primary Care Provider [phone] Encounter Details Date Type Department Care Team (Late st Contact Info) Description 12/11/2023 Orders Only [facility] [place] [address] [place] [address] Gabriel Mena MD [address] [place] [address] Social History Tobacco Use Types [...] (12/11/2023) Hemoglobin 10.7(L) 12.0 - 16.0 g/dL [facility] Hemoglobin x 3 32.1(L) 36.0 - 48.0 % [facility] 12/11/2023 12/12/2023 5:2 7 AM CDT Narrative [facility] - 12/12/2023 Unless otherwise specified, test(s) performed at: [facility], [address] [facility], [place] [address] CLIENT TECHNICAL PROFESSIONAL: Eze Park M.D., Ph.D For any questions, please call customer service at FREQUENCY:OTHER Resulting Agency Comment Specimen source: Blood us Gabriel Mena MD LAB BLOOD ORDERABLES Final Re sult [facility] See order comments or contact performing lab Unknown, [place] documented in this encounter Visit Diagnoses Not on filedocumented in this encounter Care Teams Medical Delivery Technician Relationship Specialty Start Date End Date Tyrell Schneider MD [address] [place] [address] PCP - General 10/27/18 documented as of this encounter
--- OUTSIDE RECORDS SUMMARY | 2024-01-14 05:52 | XMS_ITS | Encounter Summary ---
Author Organization [facility] Address [address] [place] [address] Care Team Providers Care Log Washer Name Role Phone Tyrell Schneider MD Primary Care Provider [phone] Encounter Details Date Type Department Care Team ([facility] st Contact Info) Description 12/09/2023 Treatment [facility] [place] [address] [place] [address] Gabriel Smith MD [address] [place] [address] Social History Tobacco Use Types [...] care for end stage renal disease. Attending Drag Sawyer: GABRIEL SMITH Dialysis Location: [facility] Schedule: Shift: 2 OVERVIEW COMMENTS: She [...] is improving. HOME MEDICATIONS Medications reviewed. Current [facility] Outpatient Medications albuterol sulfate 2.5 mg/3 [...] 95.9*F Current Dialysis Vitals BP Sit: 169/61 AP/SUPERVISOR METER SHOP: 58/82 Pulse: 60 TREATMENT MEDICATIONS ORDERS Heparin [...] not at goal. Potassium uncontrolled. Referred to porcelain waxer for further counseling. Patient taking protein supplements. [...] on filedocumented in this encounter Care Teams Log Washer Relationship Specialty Start Date End Date Tyerll Schneider MD [address] [place] [address] PCP - General 10/27/18 documented as of this encounter
--- OUTSIDE RECORDS SUMMARY | 2024-01-14 05:52 | XMS_ITS | Encounter Summary ---
Author Organization [facility] Address [address] [facility] [address] [place] [address] Care Team Providers Care Transitional Kindergarten Teacher Name Role Phone Tyrell Schneider MD Primary Care Provider [phone] Reason for Visit * Reason Comments Med Refill Encounter Details Date Type Department Care Team (Late st Contact Info) Description 11/10/2023 Refill [facility] [place] [address] [facility] [address] [place] [address] Gabriel Mena MD [address] [place] [address] Social History Tobacco Use Types [...] - 11/11/2023 9:35 AM CDT Faxed to [facility] documented in this encounter Plan of Treatment Not on file documented as of this encounter Visit Diagnoses Not on filedocumented in this encounter Care Teams Transitional Kindergarten Teacher Relationship Specialty Start Date End Date Tyrell Schneider MD [address] [place] [address] PCP - General 10/27/18 documented as of this encounter
--- OUTSIDE RECORDS SUMMARY | 2024-01-14 05:52 | XMS_ITS | Encounter Summary ---
Author Organization [facility] Address [address] [place] [address] Care Team Providers Care Life Insurance Sales Agent Name Role Phone Unavailable Primary Care Provider Unavailabl e Encounter Details Date Type Department Care Team (Late st Contact Info) Description 03/12/2016 Historical Ophthalmology RST OPH Daniel Clements M.D. [address] [place] [phone] Social History Tobacco Use Types Packs/Day Years Used Date Smoking Tobacco: Never Assessed Comments Unknown Sex and Gender Information Value Date Recorded Sex Assigned at Not on file Legal Sex Female 10:27 PM RIVET MACHINE OPERATOR Gender Identity Female 01/08/2022 2:47 PM RIVET MACHINE OPERATOR Sexual Orientation Straight 01/08/2022 2: 47 PM RIVET MACHINE OPERATOR documented as of this encounter [...] vision, worsening concerns. Must come in when CROSSING TENDER is here (preferably as COS staff). Use [...] right eye CDM Reports - EYEGEN Id: [id number] Status: Fnl documented in this encounter Plan of Treatment Not on file documented as of this encounter Visit Diagnoses Not on filedocumented in this encounter
--- OUTSIDE RECORDS SUMMARY | 2024-01-14 05:52 | XMS_ITS | Encounter Summary ---
Author Organization [facility] Address [address] [place] [address] Care Team Providers Care Dyehouse Worker Name Role Phone Tyrell Schneider MD Primary Care Provider [phone] Encounter Details Date Type Department Care Team (Late st Contact Info) Description 10/30/2023 Orders Only [facility] [place] [address] [place] [address] Gabriel Mena MD [address] [place] [address] Social History Tobacco Use Types [...] (10/30/2023) Hemoglobin 11.6(L) 12.0 - 16.0 g/dL [facility] Hemoglobin x 3 34.8(L) 36.0 - 48.0 % [facility] 10/30/2023 10/31/2023 4:0 3 AM CDT Narrative [facility] - 10/31/2023 Unless otherwise specified, test(s) performed at: [facility], [address] [facility], [place] [address] INSTITUTIONAL COOK: Eze Park M.D., Ph.D For any questions, please call customer service at FREQUENCY:OTHER Resulting Agency Comment Specimen source: Blood us Gabriel Mena MD LAB BLOOD ORDERABLES Final Re sult [facility] See order comments or contact performing lab Unknown, [place] documented in this encounter Visit Diagnoses Not on filedocumented in this encounter Care Teams Dyehouse Worker Relationship Specialty Start Date End Date Tyrell Schneider MD [address] [place] [address] PCP - General 10/27/18 documented as of this encounter
--- OUTSIDE RECORDS SUMMARY | 2024-01-14 05:52 | XMS_ITS | Encounter Summary ---
Author Organization [facility] Address [address] [place] [address] Care Team Providers Care Smoked Meat Preparer Name Role Phone Tyrell Schneider MD Primary Care Provider [phone] Encounter Details Date Type Department Care Team ([facility] st Contact Info) Description 11/08/2023 Treatment [facility] [place] [address] [place] [address] Ana Rosa APRN-WOOD WINDOW AND DOOR CRAFTSMAN [address] [facility] [address] [place] [phone] Social History Tobacco Use Types Packs/Day Years Used Date Smoking Tobacco: Never Assessed Comments Unknown Sex and Gender Information Value Date Recorded Sex Assigned at Not on file Legal Sex Female 7:04 PM EDT Gender Identity Not on file Sexual Orientation Not on file documented as of this encounter Miscellaneous Notes * Dialysis Note - Ana Rosa APRN-WOOD WINDOW AND DOOR CRAFTSMAN - 11/08/2023 3:30 PM CDT Date: Nov 08, 2023 Patient Name: Maricruz Vanegas : 1945 Chart #: [id number] Sex: F This patient was personally seen [...] 3 Values 10/25/2023 09/13/2023 08/16/2023 Access Flow [id number] Treatment Medication Orders Medication Sig Start Date End Date Heparin Sodium (Porcine) 1,000 Units/mL Systemic 2000 units IVP Every Treatment 02/15/2023 02/14/2024 Vitamin D (Calcitriol) Oral 0.5 mcg ORAL 3X Week During Dialysis 03/25/2023 03/20/2024 DRAWING IN MACHINE TENDER: Gabriel Mena MD LOCATION: [phone] SCHEDULE: -W- 2nd Shift EDW: kg. DIALYZER: [...] stable access flow. Advanced Practitioner Subjective SUPERVISOR COOLER SERVICE 11/08/2023: Spoke with patient on dialysis. She [...] catheter PD catheter placed 05/2018 at [facility], removed for peritonitis 11/2022 [...] above goal. Intact PTH is at goal. Faculty Administrator will adjust binders and vitamin D per [...] on filedocumented in this encounter Care Teams Smoked Meat Preparer Relationship Specialty Start Date End Date Tyrell Schneider MD [address] [place] [address] PCP - General 10/27/18 documented as of this encounter
--- OUTSIDE RECORDS SUMMARY | 2024-01-14 05:52 | XMS_ITS | Clinical Summary ---
Author Organization [facility] Address [address] [place] [address] Care Team Providers Care Redipper Name Role Phone Unavailable Primary Care Provider Unavailabl e Source Comments Patient records contain information from all sites at [facility]. For routine questions regarding patient records, call [phone] during business hours, M-F 8:00 AM - 5:00 PM Central Time. Record requests for emergency care only can be directed to [phone] at any time.[facility] Allergies Active Allergy Reactions Criticality Noted [...] Itching 01/09/2010 itching Niacin Itching 05/13/2006 itch Bradford Rash 05/16/2010 [place] 1-Hkh-Tlv-Fish Oil Other (see comments) 01/09/2010 itching Pioglitazone [...] (04/25/2021): Added automatically from request for surgery [id number] Major Depressive Disorder, Recurrent, Unspecifie d 03/22/2021 Anemia In Chronic Kidney Disease 04/18/2018 Chronic Obstructive Pulmonary Disease 04/18/2018 Failure Renal End Stage 04/18/2018 Dialysis Dependent 04/18/2018 Nicotine Dependence Unspecified 04/18/2018 Encounters Date Type Department Care Team Description 12/14/2023 Refill Department of Ophthalmology in [place], [place] [address] [place] [address] Luma Solis M.D., M.S. Med Refill 11/06/2023 Refill Division of General Internal Medicine in [place], [place] [address] [place] [address] Daniel Ingram M.D. Med Refill from Last [...] on file Legal Sex Female 10:27 PM LATEX FOAM WORKER Gender Identity Female 01/08/2022 2:47 PM LATEX FOAM WORKER Sexual Orientation Straight 01/08/2022 2: 47 PM LATEX FOAM WORKER Last Filed Vital Signs Vital Sign Reading [...] this topic Medical Devices Implanted Type Area Cash Management Specialist Device Identifier Shelf Expiration Date Model / Serial / Lot Cornea [id number] [id number] Implanted:Qty: 1 on 05/13/2015 Ocular (Eye) Implant Other/Legacy - See Implant Description [employer] Description:Device Manufactu rer - [employer]. Body Location - Other. Left. Device Status Text - [id number]. Cornea - [id number] [id number] Implanted:Qty: 1 on 06/10/2015 Ocular (Eye) Implant Other/Legacy - See Implant Description [employer] Description:Device Manufactu rer - [employer]. Body Location - Other. Left. Device Status Text - [id number]. Procedures Procedure Name Priority Date/Time Associated Diagnosis [...] B 8.1(H) 4.0 - 6.0 % [facility] 05/13/2015 11:3 1 PM CDT 05/13/2015 11:31 PM CDT Frantz Lee M.D. LAB BLOOD ADD-ON Final Resu lt Performing Organization Address City/[facility]/ZIP Co de Phone Number [facility] [address] * (ABNORMAL) Creatinine with Estimated GFR (MDRD) (05/11/2015 11:42 AM CDT) Creatinine 1.3(H) 0.6 - 1.1 MG/DL [facility] eGFR Non-Black/Afric an Iranian 41(L) >60 ML/MIN/BSA [facility] eGFR-Black/Afri can Iranian 49(L) >60 ML/MIN/BSA [facility] 05/11/2015 11:4 2 AM CDT 05/11/2015 11:42 AM CDT Frantz Lee M.D. LAB BLOOD ADD-ON Final Resu lt Performing Organization Address City/[facility]/ZIP Co de Phone Number [facility] [address] from Last 3 Months or Most Recently Relevant to Health Maintenance Insurance [facility] MEDICARE
--- OUTSIDE RECORDS SUMMARY | 2024-01-14 05:52 | XMS_ITS | Encounter Summary ---
Author Organization [facility] [place] [place] Address [address] [place] [address] Care Team Providers Care Bullet Lubricating Machine Operator Name Role Phone Tyrell Schneider MD Primary Care Provider [phone] Encounter Details Date Type Department Care Team ([facility] st Contact Info) Description 11/25/2023 Treatment [facility] [place] [address] [place] [address] Gillian Rosa APRN-HOSPITAL ADMINISTRATOR [address] [facility] [address] [place] [address] Social History Tobacco Use Types Packs/Day Years Used Date Smoking Tobacco: Never Assessed Comments Unknown Sex and Gender Information Value Date Recorded Sex Assigned at Not on file Legal Sex Female 7:04 PM EDT Gender Identity Not on file Sexual Orientation Not on file documented as of this encounter Miscellaneous Notes * Dialysis Note - Gillian Rosa APRN-HOSPITAL ADMINISTRATOR - 11/25/2023 12:00 AM CDT Patient: Maricruz Vanegas : 1945 Note Type: Dialysis Rounds-Comp Service Date: 11/25/2023 This patient was personally seen for a complete visit as part of routine monthly dialysis care for end stage renal disease. Attending Top Former: LEISA SMITH Dialysis Location: [facility] Schedule: - Shift: 2 OVERVIEW COMMENTS: 11/25/2023: Seen on dialysis. Feeling well. No new concerns. Denies SOB, chest pain, cramping or dizziness. BP stable. AVF working well. HOME MEDICATIONS Medications reviewed. Current [facility] Outpatient Medications albuterol sulfate 2.5 mg/3 mL [...] not at goal. Potassium uncontrolled. Referred to vision teacher for further counseling. Albumin 3.5 11/13/23 3.4 [...] on filedocumented in this encounter Care Teams Bullet Lubricating Machine Operator Relationship Specialty Start Date End Date Tyrell Schneider MD [address] [place] [address] PCP - General 10/27/18 documented as of this encounter
--- OUTSIDE RECORDS SUMMARY | 2024-01-14 05:52 | XMS_ITS | Encounter Summary ---
Author Organization [facility] [place] Address [address] [facility] [address] [place] [address] Care Team Providers Care Tube Molder Fiberglass Name Role Phone Tyrell Schneider MD Primary Care Provider [phone] Encounter Details Date Type Department Care Team (Late st Contact Info) Description 12/18/2023 Orders Only [facility] [place] [address] [facility] [address] [place] [address] Gabriel Mena MD [address] [place] [address] Social History Tobacco Use Types [...] 12/18/2023 CHEMISTRY Routine 12/18/2023 CHEMISTRY Routine 12/18/2023 [facility] RESULTS Routine 12/18/2023 documented in this encounter Results * [facility] Results (12/18/2023) Pathologist [facility] eKt/V Gotch 1.49 [facility] PCR 48.46 [facility] spKt/V Gotch 1.87 [facility] eKt/V ([place]) 1.54 [facility] eNPCR 1.16 [facility] eKdrt/V 1.49 [facility] nPCR_HD 1.28 [facility] WSTDKT/V 2.6 [facility] spKt/V (Daugirdas II) 1.87 [facility] 12/18/2023 12/18/2023 [facility] Ordering Provider LAB BLOOD ORDERABLES Final Result [facility] Contact Performing lab Unknown, [place] * (ABNORMAL) HD KINETICS (12/18/2023) Pathologist [facility] % Urea Reduction 82(H) 65 - 80 % [facility] 12/18/2023 12/19/2023 5:1 5 PM CAMPUS AIDE Narrative Resulting Agency Comment Specimen source: Plasma Gabriel Mena MD LAB BLOOD ORDERABLES Final Re sult [facility] See order comments or contact performing lab Unknown, [place] * POST CHEMISTRY (12/18/2023) Pathologist [facility] BUN Post Dialysis 13 6 - 19 mg/dL [facility] 12/18/2023 12/19/2023 5:1 5 PM CAMPUS AIDE Narrative [facility] - 12/19/2023 Unless otherwise specified, test(s) performed at: [facility], [address] [place] [address], [place] [address] REGISTRAR MUSEUM: Eze Park M.D., Ph.D For any questions, please call customer service at FREQUENCY:MONTHLY Resulting Agency Comment Specimen source: Plasma Gabriel Mena MD LAB BLOOD ORDERABLES Final Re sult Performing Organization Address [facility] Co de Phone Number [facility] See order comments or contact performing lab Unknown, [place] * (ABNORMAL) TRACE ELEMENTS (12/18/2023) Aluminum 11(H) 0 - 10 mcg/L [facility] Comment: This test was developed and its performance characteristics determined by [facility]. It has not been cleared or approved by the FDA. The laboratory is regulated under CLIA as qualified to perform high complexity testing. This test is used for clinical purposes. It should not be regarded as investigational or for research. 12/18/2023 12/19/2023 6:1 2 AM CAMPUS AIDE Narrative [facility] - 12/19/2023 Unless otherwise specified, test(s) performed at: [facility], [address] [place] [address], [place] [address] REGISTRAR MUSEUM: Eze Park M.D., Ph.D For any questions, please call customer service at FREQUENCY:MONTHLY Resulting Agency Comment Specimen source: Serum Gabriel Mena MD LAB BLOOD ORDERABLES Final Re sult Performing Organization Address [facility] de Phone Number [facility] See order comments or contact performing lab Unknown, [place] * (ABNORMAL) SPECIAL CHEMISTRY (12/18/2023) Pathologist [facility] Vitamin B-12 536 211 - 911 pg/mL [facility] Vitamin D, 25-OH, Total 15.7(L) 30.0 - 100.0 ng/mL [facility] Comment: Please Note: Effective February 19, 2021, the methodology for this test has changed to the SIEMENS ATELLICA method 12/18/2023 12/19/2023 6:4 8 AM CAMPUS AIDE Narrative Resulting Agency Comment Specimen source: Serum Gabriel Mena MD LAB BLOOD BANK TEST ORDERABLE S Final Result Performing Organization Address City/[facility]/ZIP Co de Phone Number [facility] See order comments or contact performing lab Unknown, [place] * (ABNORMAL) [facility] (12/18/2023) BUN 71(H) 6 - 19 [...] [facility] 12/18/2023 12/19/2023 6:4 8 AM CAMPUS AIDE Narrative [facility] - 12/19/2023 Unless otherwise specified, test(s) performed at: [facility], [address] [place] [address], [place] [address] REGISTRAR MUSEUM: Eze Park M.D., Ph.D For any questions, please call customer service at FREQUENCY:MONTHLY Resulting Agency Comment Specimen source: Serum us Gabriel Mena MD LAB BLOOD ORDERABLES Final Re sult [facility] See order comments or contact performing [...] [facility] 12/18/2023 12/19/2023 3:0 2 PM CAMPUS AIDE Narrative [facility] - 12/19/2023 Unless otherwise specified, test(s) performed at: [facility], [address] [place] [address], [place] [address] REGISTRAR MUSEUM: Eze Park M.D., Ph.D For any questions, please call customer service at FREQUENCY:MONTHLY Resulting Agency Comment Specimen source: Blood us Gabriel Mena MD LAB BLOOD ORDERABLES Final Re sult [facility] See order comments or contact performing lab [...] antibody present. 12/18/2023 12/19/2023 7:4 4 AM CAMPUS AIDE Narrative Resulting Agency Comment Specimen source: Plasma Gabriel Mena MD LAB BLOOD ORDERABLES Final Re sult Performing Organization Address City/[facility] Co de Phone Number [facility] See order comments or contact performing lab Unknown, [place] * (ABNORMAL) [facility] (12/18/2023) PTH 366(H) 16 - 80 pg/mL [facility] 12/18/2023 12/19/2023 7:4 4 AM CAMPUS AIDE Narrative [facility] - 12/19/2023 Unless otherwise specified, test(s) performed at: [facility], [address] [place] [address] REGISTRAR MUSEUM: Eze Park M.D., Ph.D For any questions, please call customer service at FREQUENCY:MONTHLY Resulting Agency Comment Specimen source: Plasma Gabriel Mena MD LAB BLOOD ORDERABLES Final Re sult Performing Organization Address City/[facility]/ZIP Co de Phone Number [facility] See order comments or contact performing lab Unknown, [place] documented in this encounter Visit Diagnoses Not on filedocumented in this encounter Care Teams Tube Molder Fiberglass Relationship Specialty Start Date End Date Tyrell Schneider MD [address] [place] [address] PCP - General 10/27/18 documented as of this encounter
--- OUTSIDE RECORDS SUMMARY | 2024-01-14 05:52 | XMS_ITS | Encounter Summary ---
Author Organization [facility] [place] [place] Address [address] [place] [address] Care Team Providers Care Disease Control Inspector Name Role Phone Tyrell Schneider MD Primary Care Provider Encounter Details Date Type Department Care Team (Late st Contact Info) Description 11/27/2023 Orders Only [facility] [place] [address] [place] [address] Gabriel Mena MD [address] [place] [address] Social History Tobacco Use Types [...] x 3 32.7(L) 36.0 - 48.0 % [facility] 11/27/2023 11/28/2023 10: 18 AM CDT Narrative [facility] - 11/28/2023 Unless otherwise specified, test(s) performed at: [facility], [address] [place] [address] AUDIO/VIDEO TECHNICIAN: Eze Park M.D., Ph.D For any questions, please call customer service at FREQUENCY:OTHER Resulting Agency Comment Specimen source: Blood us Gabriel Mena MD LAB BLOOD ORDERABLES Final Re sult [facility] KSN [facility] See order comments or contact performing lab Unknown, [place] documented in this encounter Visit Diagnoses Not on filedocumented in this encounter Care Teams Disease Control Inspector Relationship Specialty Start Date End Date Tyrell Schneider MD [address] [place] [address] PCP - General 10/27/18 documented as of this encounter
--- OUTSIDE RECORDS SUMMARY | 2024-01-14 05:52 | XMS_ITS | Encounter Summary ---
Author Organization [facility] [place] [place] Address [address] [place] [address] Care Team Providers Care Autocad Electrical Designer Name Role Phone Tyrell Schneider MD Primary Care Provider [phone] Encounter Details Date Type Department Care Team (Late st Contact Info) Description 10/09/2023 Orders Only [facility] [place] [address] [place] [address] Gabriel Mena MD [address] [place] [address] Social History Tobacco Use Types [...] (10/09/2023) Hemoglobin 10.3(L) 12.0 - 16.0 g/dL [facility] Hemoglobin x 3 30.9(L) 36.0 - 48.0 % [facility] 10/09/2023 10/10/2023 9:0 3 AM CDT Narrative [facility] - 10/10/2023 Unless otherwise specified, test(s) performed at: [facility], [address] [facility], [place] [address] RADIO BOARD OPERATOR ANNOUNCER: Eze Park M.D., Ph.D For any questions, please call customer service at FREQUENCY:OTHER Resulting Agency Comment Specimen source: Blood us Gabriel Mena MD LAB BLOOD ORDERABLES Final Re sult [facility] KSN [facility] See order comments or contact performing lab Unknown, [place] documented in this encounter Visit Diagnoses Not on filedocumented in this encounter Care Teams Autocad Electrical Designer Relationship Specialty Start Date End Date Tyrell Schneider MD [address] [place] [address] PCP - General 10/27/18 documented as of this encounter
--- OUTSIDE RECORDS SUMMARY | 2024-01-14 05:52 | XMS_ITS | Encounter Summary ---
Author Organization [facility] [place] [place] Address [address] [place] [address] Care Team Providers Care Flower Arranger Name Role Phone Tyrell Schneider MD Primary Care Provider [phone] Encounter Details Date Type Department Care Team (Late st Contact Info) Description 10/23/2023 Orders Only [facility] [place] [address] [place] [address] Gabriel Mena MD [address] [place] [address] Social History Tobacco Use Types [...] (10/23/2023) Potassium 5.1 3.5 - 5.1 mEq/L [facility] 10/23/2023 10/24/2023 5:1 8 AM CDT Narrative [facility] - 10/24/2023 Unless otherwise specified, test(s) performed at: [facility], [address] [place] [address] ENERGY BROKER: Eze Park M.D., Ph.D For any questions, please call customer service at FREQUENCY:OTHER Resulting Agency Comment Specimen source: Serum Gabriel Mena MD LAB BLOOD ORDERABLES Final Re sult Performing Organization Address [facility] de Phone Number [facility] See order comments or contact performing lab Unknown, [place] * (ABNORMAL) HEMATOLOGY (10/23/2023) Hemoglobin 10.8(L) 12.0 - 16.0 g/dL [facility] Hemoglobin x 3 32.4(L) 36.0 - 48.0 % [facility] 10/23/2023 10/24/2023 5:[address] [facility] - 10/24/2023 Unless otherwise specified, test(s) performed at: [facility], [address] [place] [address] ENERGY BROKER: Eze Park M.D., Ph.D For any questions, please call customer service at FREQUENCY:OTHER Resulting Agency Comment Specimen source: Blood Gabriel Mena MD LAB BLOOD ORDERABLES Final Re sult Performing Organization Address [facility] de Phone Number [facility] See order comments or contact performing lab Unknown, [place] documented in this encounter Visit Diagnoses Not on filedocumented in this encounter Care Teams Flower Arranger Relationship Specialty Start Date End Date Tyrell Schneider MD [address] [facility] [address] PCP - General 10/27/18 documented as of this encounter
--- OUTSIDE RECORDS SUMMARY | 2024-01-14 05:52 | XMS_ITS | Encounter Summary ---
Author Organization [facility] [place] Address [address] [place] [address] Care Team Providers Care Bombsight Specialist Name Role Phone Tyrell Schneider MD Primary Care Provider [phone] Encounter Details Date Type Department Care Team (Late st Contact Info) Description 11/08/2023 Orders Only [facility] [place] [address] [place] [address] Gabriel Mena MD [address] [place] [address] Social History Tobacco Use Types [...] (11/08/2023) Hemoglobin 11.7(L) 12.0 - 16.0 g/dL [facility] Hemoglobin x 3 35.1(L) 36.0 - 48.0 % [facility] 11/08/2023 11/09/2023 2:5 5 AM CDT Narrative [facility] - 11/09/2023 Unless otherwise specified, test(s) performed at: [facility], [address] [facility], [place] [address] HELP DESK MANAGER: Eze Park M.D., Ph.D For any questions, please call customer service at FREQUENCY:OTHER Resulting Agency Comment Specimen source: Blood us Gabriel Mena MD LAB BLOOD ORDERABLES Final Re sult [facility] See order comments or contact performing lab Unknown, [place] documented in this encounter Visit Diagnoses Not on filedocumented in this encounter Care Teams Bombsight Specialist Relationship Specialty Start Date End Date Tyrell Schneider MD [address] [place] [address] PCP - General 10/27/18 documented as of this encounter
--- OUTSIDE RECORDS SUMMARY | 2024-01-14 05:52 | XMS_ITS | Referral Summary ---
Author Organization [facility] Address [address] [place] [address] Care Team Providers Care Microsoft Net Developer Name Role Phone Unavailable Primary Care Provider Unavailabl e Source Comments Patient records contain information from all sites at [facility]. For routine questions regarding patient records, call [phone] during business hours, M-F 8:00 AM - 5:00 PM Central Time. Record requests for emergency care only can be directed to [phone] at any time.[facility] Encounters Date Type Department Care Team Description 12/14/2023 Refill Department of Ophthalmology in [place], [place] [address] [place] [address] Luma Solis M.D., M.S. Med Refill 11/06/2023 Refill Division of General Internal Medicine in [place], [place] [address] [place] [address] Daniel Ingram M.D. Med Refill from Last [...] Itching 01/09/2010 itching Niacin Itching 05/13/2006 itch Mobile Rash 05/16/2010 [place] 0-Sir-Hdq-Fish Oil Other (see comments) 01/09/2010 itching Pioglitazone [...] (04/25/2021): Added automatically from request for surgery [id number] Major Depressive Disorder, Recurrent, Unspecifie d 03/22/2021 [...] on file Legal Sex Female 10:27 PM NET DEVELOPMENT MANAGER Gender Identity Female 01/08/2022 2:47 PM NET DEVELOPMENT MANAGER Sexual Orientation Straight 01/08/2022 2: 47 PM NET DEVELOPMENT MANAGER Last Filed Vital Signs Vital Sign Reading Time Taken Comments Blood Pressure 146/69 04/25/2021 8:56 AM CDT Pulse 62 04/25/2021 8:56 AM CDT Temperature 35.8 C (96.4 F) 04/25/2021 1:32 PM CDT Respiratory Rate 16 05/14/2015 10:0 0 AM CDT Value from [facility]. Oxygen Saturation - - Inhaled Oxygen Concentration - - Weight 49.2 kg (108 lb 5.7 oz) 04/25/2021 1:32 PM CDT Height 152.9 cm (5' 0.2) 04/25/2021 1: 32 PM CDT Body Mass Index 21.02 04/25/2021 1:32 PM CDT Plan of Treatment Not on file Medical Devices Implanted Type Area Creative Lead Device Identifier Shelf Expiration Date Model / Serial / Lot Cornea - [id number] [id number] Implanted:Qty: 1 on 05/13/2015 Ocular (Eye) Implant Other/Legacy - See Implant Description [place] [employer] Eye [facility] Description:Device Manufactu rer - [place] [employer]. Body Location - Other. Left. Device Status Text - [id number]. Cornea - [id number] [id number] Implanted:Qty: 1 on 06/10/2015 Ocular (Eye) Implant Other/Legacy - See Implant Description [place] [employer] Eye [employer] Description:Device Manufactu rer - [place] [employer]. Body Location - Other. Left. Device Status Text - [id number]. Procedures Procedure Name Priority Date/Time Associated Diagnosis Comments OPHTHALMOLOGY IMAGE EXAM Routine 08/22/2023 12:00 AM CDT HEMOGLOBIN A1C, B Routine 05/13/2015 11: 31 PM CDT CREATININE WITH EGFR, S/P Routine 05/11/2015 11:42 AM CDT from Last 3 Months or Most Recently Relevant to Health Maintenance Results * Eyes Color-Ophthalmology Image Exam (08/22/2023 12:00 AM CDT) Narrative [facility] - 08/22/2023 2:17 PM CDT This order [...] A1c, B 8.1(H) 4.0 - 6.0 % [facility] 05/13/2015 11:3 1 PM CDT 05/13/2015 11:31 PM CDT Frantz Lee M.D. LAB BLOOD ADD-ON Final Resu lt Performing Organization Address City/[facility] Co de Phone Number [facility] [address] * (ABNORMAL) Creatinine with Estimated GFR (MDRD) (05/11/2015 11:42 AM CDT) Creatinine 1.3(H) 0.6 - 1.1 MG/DL [facility] eGFR Non-Black/Afric an Gabonese 41(L) >60 ML/MIN/BSA [facility] eGFR-Black/Afri can Gabonese 49(L) >60 ML/MIN/BSA [facility] 05/11/2015 11:4 2 AM CDT 05/11/2015 11:42 AM CDT Frantz Lee M.D. LAB BLOOD ADD-ON Final Resu lt Performing Organization Address City/[facility]/ZIP Co de Phone Number [facility] [address] from Last 3 Months or Most Recently Relevant to Health Maintenance Insurance [facility] MEDICARE
--- OUTSIDE RECORDS SUMMARY | 2024-01-14 05:52 | XMS_ITS | Encounter Summary ---
Author Organization [facility] [place] [place] Address [address] [place] [address] Care Team Providers Care Inspector Salvage Name Role Phone Tyrell Schneider MD Primary Care Provider [phone] Encounter Details Date Type Department Care Team ([facility] st Contact Info) Description 10/09/2023 Treatment [facility] [place] [address] [place] [address] Ana Rosa APRN-RESIDENTIAL PROGRAM COORDINATOR [address] [facility] [address] [place] [address] Social History Tobacco Use Types Packs/Day Years Used Date Smoking Tobacco: Never Assessed Comments Unknown Sex and Gender Information Value Date Recorded Sex Assigned at Not on file Legal Sex Female 7:04 PM EDT Gender Identity Not on file Sexual Orientation Not on file documented as of this encounter Miscellaneous Notes * Dialysis Note - Ana Rosa APRN-RESIDENTIAL PROGRAM COORDINATOR - 10/09/2023 10:00 AM CDT Date: Oct 09, 2023 Patient Name: Maricruz Vanegas : 1945 Chart #: [id number] Sex: F This patient was personally seen [...] AM ) BP (sit): 184/65 AP(-) / INVESTIGATOR CLAIMS: n/a Pulse: 49 Chairside data as of [...] Values 09/13/2023 08/16/2023 08/12/2023 Access Flow [phone] Treatment Medication Orders Medication Sig Start Date End Date Heparin Sodium (Porcine) 1,000 Units/mL Systemic 2000 units IVP Every Treatment 02/15/2023 02/14/2024 Mircera 60 mcg IVP Every 2 weeks During Dialysis 09/18/2023 09/16/2024 Vitamin D (Calcitriol) Oral 0.5 mcg ORAL 3X Week During Dialysis 03/25/2023 03/20/2024 SCENIC DESIGNER: Gabriel Mena MD LOCATION: [phone] SCHEDULE: -- 2nd Shift EDW: kg. DIALYZER: HD DURATION: NEEDLE SIZE: ANTICOAG: BATH: QB: ml/min QD: ml/min Subjective Tolerating dialysis well. Reports no trouble with access. 09/27/23: Stable dialysis. No new symptoms. BP still above goal. She would like to try a new medication on top of current ones. Mild edema in lower legs. Advanced Practitioner Subjective PHYSICIAN PRACTICE ADMINISTRATOR 10/09/2023: Patient seen on dialysis. Today she denies SOB, chest pain or cramping. Arm access working well. BP elevated. Leaving at EDW. Will continue to monitor weight. PHYSICIAN PRACTICE ADMINISTRATOR 09/02/2023: Spoke with patient on dialysis. Reports [...] at goal. Intact PTH is at goal. Plant Protection Guard will adjust binders and vitamin D per [...] filedocumented in this encounter Care Teams Inspector Salvage Relationship Specialty Start Date End Date Tyrell Schneider MD [address] [place] [address] PCP - General 10/27/18 documented as of this encounter
--- OUTSIDE RECORDS SUMMARY | 2024-01-14 05:53 | XMS_ITS | Encounter Summary ---
Author Organization [facility] Address [address] [place] [address] Care Team Providers Care Stoneworking Sander Name Role Phone Unavailable Primary Care Provider Unavailabl e Encounter Details Date Type Department Care Team (Late st Contact Info) Description 07/12/2015 Historical Ophthalmology RST OPH Eva Heard M.D. [address] [facility] 200 [place] [address] Social History Tobacco Use Types Packs/Day Years Used Date Smoking Tobacco: Never Assessed Comments Unknown Sex and Gender Information Value Date Recorded Sex Assigned at Not on file Legal Sex Female 10:27 PM DISPOSAL WORKER Gender Identity Female 01/08/2022 2:47 PM DISPOSAL WORKER Sexual Orientation Straight 01/08/2022 2: 47 PM DISPOSAL WORKER documented as of this encounter Progress Notes [...] intra-op intravitreal vancomycin and ceftazadime Seen with COMMERCIAL ESCROW OFFICER today. 06/13/15: Paul negative. Well formed chamber, with normal IOP. Graft and sutures intact. Suture reaction most significant inferiorly, will continue pred forte TID and consider suture removal inferiorly at next visit. 06/16/15: Paul negative, formed chamber, suture reaction on all original graft sutures, no loose sutures, discussed with LJM, continue current drops and return next week when COMMERCIAL ESCROW OFFICER here. Seen with SCB today. 06/20/15: Paul negative, formed chamber, suture reaction decreased, seen with COMMERCIAL ESCROW OFFICER, M Parasol occluder placed in left lower puncu, expires 2018, LOT [id number] 06/27/15: Paul negative, increased edema over snowman [...] Monocular status CDM Reports - EYEGEN Id: [id number] Status: Fnl documented in this encounter Plan of Treatment Not on file documented as of this encounter Visit Diagnoses Not on filedocumented in this encounter
--- OUTSIDE RECORDS SUMMARY | 2024-01-14 05:53 | XMS_ITS | Encounter Summary ---
Author Organization [facility] Address [address] [place] [address] Care Team Providers Care Vocational Services Specialist Name Role Phone Unavailable Primary Care Provider Unavailabl e Encounter Details Date Type Department Care Team (Late st Contact Info) Description 05/14/2015 Historical Ophthalmology RST OPH Maricruz Garcia M.D. Social History Tobacco Use Types Packs/Day Years Used Date Smoking Tobacco: Never Assessed Comments Unknown Sex and Gender Information Value Date Recorded Sex Assigned at Not on file Legal Sex Female 10:27 PM AUTO SEAT COVER INSTALLER Gender Identity Female 01/08/2022 2:47 PM AUTO SEAT COVER INSTALLER Sexual Orientation Straight 01/08/2022 2: 47 PM AUTO SEAT COVER INSTALLER documented as of this encounter Progress [...] washout 05/13/15 CDM Reports - EYEGEN Id: [id number] Status: Fnl documented in this encounter Plan of Treatment Not on file documented as of this encounter Visit Diagnoses Not on filedocumented in this encounter
--- OUTSIDE RECORDS SUMMARY | 2024-01-14 05:53 | XMS_ITS | Encounter Summary ---
Author Organization [facility] Address [address] [place] [address] Care Team Providers Care Edge Burnisher Name Role Phone Unavailable Primary Care Provider Unavailabl e Encounter Details Date Type Department Care Team (Late st Contact Info) Description 11/23/2015 Historical Ophthalmology RST OPH Deann Colby M.D. [address] [place] [phone] Social History Tobacco Use Types Packs/Day Years Used Date Smoking Tobacco: Never Assessed Comments Unknown Sex and Gender Information Value Date Recorded Sex Assigned at Not on file Legal Sex Female 10:27 PM AFTER SCHOOL PROGRAM TEACHER Gender Identity Female 01/08/2022 2:47 PM AFTER SCHOOL PROGRAM TEACHER Sexual Orientation Straight 01/08/2022 2: 47 PM AFTER SCHOOL PROGRAM TEACHER documented as of this encounter Progress [...] intra-op intravitreal vancomycin and ceftazadime Discussed with TIMBER MANAGEMENT SPECIALIST today. 23 Nov 2015: Corneal edema [...] vision, worsening concerns. Must come in when TIMBER MANAGEMENT SPECIALIST is here (preferably as COS staff). [...] right eye CDM Reports - EYEGEN Id: [id number] Status: Fnl documented in this encounter Plan of Treatment Not on file documented as of this encounter Visit Diagnoses Not on filedocumented in this encounter
--- OUTSIDE RECORDS SUMMARY | 2024-01-14 05:53 | XMS_ITS | Encounter Summary ---
Author Organization [facility] Address [address] [place] [address] Care Team Providers Care Stitcher Set Up Operator Automatic Name Role Phone Unavailable Primary Care Provider Unavailabl e Encounter Details Date Type Department Care Team (Late st Contact Info) Description 07/18/2015 Historical Ophthalmology RST OPH Eva Heard M.D. [address] [facility] 200 [place] [address] Social History Tobacco Use Types Packs/Day Years Used Date Smoking Tobacco: Never Assessed Comments Unknown Sex and Gender Information Value Date Recorded Sex Assigned at Not on file Legal Sex Female 10:27 PM LOCKSTITCH SHOULDER JOINER Gender Identity Female 01/08/2022 2:47 PM LOCKSTITCH SHOULDER JOINER Sexual Orientation Straight 01/08/2022 2: 47 PM LOCKSTITCH SHOULDER JOINER documented as of this encounter Progress Notes [...] intra-op intravitreal vancomycin and ceftazadime Seen with SECURITY SYSTEM SALES CONSULTANT today. 06/13/15: Paul negative. Well formed chamber, with normal IOP. Graft and sutures intact. Suture reaction most significant inferiorly, will continue pred forte TID and consider suture removal inferiorly at next visit. 06/16/15: Paul negative, formed chamber, suture reaction on all original graft sutures, no loose sutures, discussed with LJM, continue current drops and return next week when SECURITY SYSTEM SALES CONSULTANT here. Seen with SCB today. 06/20/15: Paul negative, formed chamber, suture reaction decreased, seen with SECURITY SYSTEM SALES CONSULTANT, M Parasol occluder placed in left lower puncu, expires 2018, LOT [id number] 06/27/15: Paul negative, increased edema over snowman [...] Monocular status CDM Reports - EYEGEN Id: [id number] Status: Fnl documented in this encounter Plan of Treatment Not on file documented as of this encounter Visit Diagnoses Not on filedocumented in this encounter
--- OUTSIDE RECORDS SUMMARY | 2024-01-14 05:53 | XMS_ITS | Encounter Summary ---
Author Organization [facility] Address [address] [place] [address] Care Team Providers Care Nurses' Association Executive Director Name Role Phone Unavailable Primary Care Provider Unavailabl e Encounter Details Date Type Department Care Team (Late st Contact Info) Description 10/13/2015 Historical Ophthalmology RST OPH Deann Colby M.D. [address] [place] [phone] Social History Tobacco Use Types Packs/Day Years Used Date Smoking Tobacco: Never Assessed Comments Unknown Sex and Gender Information Value Date Recorded Sex Assigned at Not on file Legal Sex Female 10:27 PM PROGRAMMING INTERNSHIP Gender Identity Female 01/08/2022 2:47 PM PROGRAMMING INTERNSHIP Sexual Orientation Straight 01/08/2022 2: 47 PM PROGRAMMING INTERNSHIP documented as of this encounter Progress Notes [...] intra-op intravitreal vancomycin and ceftazadime Discussed with TALENT ACQUISITION ASSOCIATE today. 13 Oct 2015: Corneal edema continues [...] vision, worsening concerns. Must come in when TALENT ACQUISITION ASSOCIATE is here. Use fluorescein strips only, not [...] #4 Floaters, right eye CDM Reports - EYENI Id: [id number] Status: Fnl documented in this encounter Plan of Treatment Not on file documented as of this encounter Visit Diagnoses Not on filedocumented in this encounter
--- OUTSIDE RECORDS SUMMARY | 2024-01-14 05:53 | XMS_ITS | Encounter Summary ---
Author Organization [facility] Address [address] [place] [address] Care Team Providers Care Oracle Security Consultant Name Role Phone Unavailable Primary Care Provider Unavailabl e Encounter Details Date Type Department Care Team (Late st Contact Info) Description 06/13/2015 Historical Ophthalmology RST OPH Maricruz Garcia M.D. Social History Tobacco Use Types Packs/Day Years Used Date Smoking Tobacco: Never Assessed Comments Unknown Sex and Gender Information Value Date Recorded Sex Assigned at Not on file Legal Sex Female 10:27 PM PLASTIC FRAME INSERTER Gender Identity Female 01/08/2022 2:47 PM PLASTIC FRAME INSERTER Sexual Orientation Straight 01/08/2022 2: 47 PM PLASTIC FRAME INSERTER documented as of this encounter Progress Notes * Maricruz Garcia M.D. - 06/13/2015 3:08 PM CDT Eye Postoperative MULTI-VISIT DOCUMENT This document contains multiple patient visits and is available for review in Document Viewer. CDM Reports - EYEPO Id: [id number] Status: Fnl documented in this encounter Plan of Treatment Not on file documented as of this encounter Visit Diagnoses Not on filedocumented in this encounter
--- OUTSIDE RECORDS SUMMARY | 2024-01-14 05:53 | XMS_ITS | Encounter Summary ---
Author Organization [facility] Address [address] [place] [address] Care Team Providers Care Auto Apprentice Mechanic Name Role Phone Unavailable Primary Care Provider Unavailabl e Encounter Details Date Type Department Care Team (Late st Contact Info) Description 05/09/2015 Historical Ophthalmology RST OPH Frantz Lee M.D. [address] [place] [phone] Social History Tobacco Use Types Packs/Day Years Used Date Smoking Tobacco: Never Assessed Comments Unknown Sex and Gender Information Value Date Recorded Sex Assigned at Not on file Legal Sex Female 10:27 PM TRAVEL REGISTERED NURSE ICU Gender Identity Female 01/08/2022 2:47 PM TRAVEL REGISTERED NURSE ICU Sexual Orientation Straight 01/08/2022 2: 47 PM TRAVEL REGISTERED NURSE ICU documented as of this encounter Progress Notes [...] to the eye doctor this morning in [facility]. States that she lost the drop that [...] left eye CDM Reports - EYEGEN Id: [id number] Status: Fnl documented in this encounter Plan of Treatment Not on file documented as of this encounter Visit Diagnoses Not on filedocumented in this encounter
--- OUTSIDE RECORDS SUMMARY | 2024-01-14 05:53 | XMS_ITS | Encounter Summary ---
Author Organization [facility] Address [address] [place] [address] Care Team Providers Care Plumbing Assembler Installer Name Role Phone Unavailable Primary Care Provider Unavailabl e Encounter Details Date Type Department Care Team (Late st Contact Info) Description 07/04/2015 Historical Ophthalmology RST OPH Eva Heard M.D. [address] [facility] 200 [place] [address] Social History Tobacco Use Types Packs/Day Years Used Date Smoking Tobacco: Never Assessed Comments Unknown Sex and Gender Information Value Date Recorded Sex Assigned at Not on file Legal Sex Female 10:27 PM LADIES ATTENDANT Gender Identity Female 01/08/2022 2:47 PM LADIES ATTENDANT Sexual Orientation Straight 01/08/2022 2: 47 PM LADIES ATTENDANT documented as of this encounter Progress Notes * Eva Heard M.D. - 07/04/2015 9:39 AM CDT Eye Postoperative MULTI-VISIT DOCUMENT This document contains multiple patient visits and is available for review in Document Viewer. CDM Reports - EYEPO Id: [id number] Status: Fnl documented in this encounter Plan of Treatment Not on file documented as of this encounter Visit Diagnoses Not on filedocumented in this encounter
--- OUTSIDE RECORDS SUMMARY | 2024-01-14 05:53 | XMS_ITS | Encounter Summary ---
Author Organization [facility] Address [address] [place] [address] Care Team Providers Care Drawing Frame Tender Name Role Phone Unavailable Primary Care Provider Unavailabl e Encounter Details Date Type Department Care Team (Late st Contact Info) Description 05/24/2015 Historical Ophthalmology RST OPH Eva Heard M.D. [address] [facility] 200 [place] [address] Social History Tobacco Use Types Packs/Day Years Used Date Smoking Tobacco: Never Assessed Comments Unknown Sex and Gender Information Value Date Recorded Sex Assigned at Not on file Legal Sex Female 10:27 PM LANDSCAPE PAINTER Gender Identity Female 01/08/2022 2:47 PM LANDSCAPE PAINTER Sexual Orientation Straight 01/08/2022 2: 47 PM LANDSCAPE PAINTER documented as of this encounter Progress Notes [...] Saturday. s/p intra-op subconj Dex Seen with BILINGUAL SALES CONSULTANT today Plan: Alternate every 2 hours with [...] diabetic retinopathy, right eye CDM Reports - [facility] Id: [id number] Status: Fnl documented in this encounter Plan of Treatment Not on file documented as of this encounter Visit Diagnoses Not on filedocumented in this encounter
--- OUTSIDE RECORDS SUMMARY | 2024-01-14 05:53 | XMS_ITS | Encounter Summary ---
Author Organization [facility] Address [address] [place] [address] Care Team Providers Care Fish Inspector Name Role Phone Unavailable Primary Care Provider Unavailabl e Encounter Details Date Type Department Care Team (Late st Contact Info) Description 05/13/2015 Historical Ophthalmology RST OPH Frantz Lee M.D. [address] [place] [phone] Social History Tobacco Use Types Packs/Day Years Used Date Smoking Tobacco: Never Assessed Comments Unknown Sex and Gender Information Value Date Recorded Sex Assigned at Not on file Legal Sex Female 10:27 PM LASER TECHNICIAN Gender Identity Female 01/08/2022 2:47 PM LASER TECHNICIAN Sexual Orientation Straight 01/08/2022 2: 47 PM LASER TECHNICIAN documented as of this encounter Progress [...] follow with her PCP for diabetes management. INSPECTOR PACKER ([id number]): I interviewed and examined the patient and [...] Corneal ulcer, left eye CDM Reports - [employer] Id: [id number] Status: Fnl documented in this encounter Plan of Treatment Not on file documented as of this encounter Visit Diagnoses Not on filedocumented in this encounter
--- OUTSIDE RECORDS SUMMARY | 2024-01-14 05:53 | XMS_ITS | Encounter Summary ---
Author Organization [facility] Address [address] [place] [address] Care Team Providers Care Bilingual School Psychologist Name Role Phone Unavailable Primary Care Provider Unavailabl e Encounter Details Date Type Department Care Team (Late st Contact Info) Description 05/20/2015 Historical Ophthalmology RST OPH Eva Heard M.D. [address] [facility] 200 [place] [address] Social History Tobacco Use Types Packs/Day Years Used Date Smoking Tobacco: Never Assessed Comments Unknown Sex and Gender Information Value Date Recorded Sex Assigned at Not on file Legal Sex Female 10:27 PM WINE MERCHANT Gender Identity Female 01/08/2022 2:47 PM WINE MERCHANT Sexual Orientation Straight 01/08/2022 2: 47 PM WINE MERCHANT documented as of this encounter Progress Notes [...] Saturday. s/p intra-op subconj Dex Seen with RN TRANSITION today Plan: Alternate every 2 hours with [...] right eye CDM Reports - EYEGEN Id: [id number] Status: Fnl documented in this encounter Plan of Treatment Not on file documented as of this encounter Visit Diagnoses Not on filedocumented in this encounter
--- OUTSIDE RECORDS SUMMARY | 2024-01-14 05:53 | XMS_ITS | Encounter Summary ---
Author Organization [facility] Address [address] [place] [address] Care Team Providers Care Pack Room Operator Name Role Phone Unavailable Primary Care Provider Unavailabl e Encounter Details Date Type Department Care Team (Late st Contact Info) Description 09/26/2015 Historical Ophthalmology RST OPH Deann Colby M.D. [address] [place] [phone] Social History Tobacco Use Types Packs/Day Years Used Date Smoking Tobacco: Never Assessed Comments Unknown Sex and Gender Information Value Date Recorded Sex Assigned at Not on file Legal Sex Female 10:27 PM RETAIL LOSS PREVENTION OFFICER Gender Identity Female 01/08/2022 2:47 PM RETAIL LOSS PREVENTION OFFICER Sexual Orientation Straight 01/08/2022 2: 47 PM RETAIL LOSS PREVENTION OFFICER documented as of this encounter Progress Notes [...] intra-op intravitreal vancomycin and ceftazadime Seen with TECHNICAL ACCOUNT EXECUTIVE today. 26 Sep 2015: Corneal edema continues [...] vision, worsening concerns. Must come in when TECHNICAL ACCOUNT EXECUTIVE is here. Use fluorescein strips only, not [...] right eye CDM Reports - EYEGEN Id: [id number] Status: Fnl documented in this encounter Plan of Treatment Not on file documented as of this encounter Visit Diagnoses Not on filedocumented in this encounter
--- OUTSIDE RECORDS SUMMARY | 2024-01-14 05:53 | XMS_ITS | Encounter Summary ---
Author Organization [facility] Address [address] [place] [address] Care Team Providers Care Marketing Sales Consultant Name Role Phone Unavailable Primary Care Provider Unavailabl e Encounter Details Date Type Department Care Team (Late st Contact Info) Description 10/24/2015 Historical Ophthalmology RST OPH Deann Colby M.D. [address] [place] [phone] Social History Tobacco Use Types Packs/Day Years Used Date Smoking Tobacco: Never Assessed Comments Unknown Sex and Gender Information Value Date Recorded Sex Assigned at Not on file Legal Sex Female 10:27 PM TECHNICAL SALES ADVISOR Gender Identity Female 01/08/2022 2:47 PM TECHNICAL SALES ADVISOR Sexual Orientation Straight 01/08/2022 2: 47 PM TECHNICAL SALES ADVISOR documented as of this encounter Progress Notes [...] intra-op intravitreal vancomycin and ceftazadime Discussed with CONSTRUCTION ADMINISTRATOR today. 24 Oct 2015: Corneal edema continues [...] vision, worsening concerns. Must come in when CONSTRUCTION ADMINISTRATOR is here. Use fluorescein strips only, not [...] #4 Floaters, right eye [facility] Id: [id number] Status: Fnl documented in this encounter Plan of Treatment Not on file documented as of this encounter Visit Diagnoses Not on filedocumented in this encounter
--- OUTSIDE RECORDS SUMMARY | 2024-01-14 05:53 | XMS_ITS | Encounter Summary ---
Author Organization [facility] Address [address] [place] [address] Care Team Providers Care Dental Financial Coordinator Name Role Phone Unavailable Primary Care Provider Unavailabl e Encounter Details Date Type Department Care Team (Late st Contact Info) Description 05/10/2015 Historical Ophthalmology RST OPH Frantz Lee M.D. [address] [place] [phone] Social History Tobacco Use Types Packs/Day Years Used Date Smoking Tobacco: Never Assessed Comments Unknown Sex and Gender Information Value Date Recorded Sex Assigned at Not on file Legal Sex Female 10:27 PM SEWAGE RETICULATION DRAFTING OFFICER Gender Identity Female 01/08/2022 2:47 PM SEWAGE RETICULATION DRAFTING OFFICER Sexual Orientation Straight 01/08/2022 2: 47 PM SEWAGE RETICULATION DRAFTING OFFICER documented as of this encounter Progress [...] left eye CDM Reports - EYEGEN Id: [id number] Status: Fnl documented in this encounter Plan of Treatment Not on file documented as of this encounter Visit Diagnoses Not on filedocumented in this encounter
--- OUTSIDE RECORDS SUMMARY | 2024-01-14 05:53 | XMS_ITS | Encounter Summary ---
Author Organization [facility] Address [address] [place] [address] Care Team Providers Care Websphere Administrator Name Role Phone Unavailable Primary Care Provider Unavailabl e Encounter Details Date Type Department Care Team (Late st Contact Info) Description 08/24/2015 Historical Ophthalmology RST OPH Deann Colby M.D. [address] [place] [phone] Social History Tobacco Use Types Packs/Day Years Used Date Smoking Tobacco: Never Assessed Comments Unknown Sex and Gender Information Value Date Recorded Sex Assigned at Not on file Legal Sex Female 10:27 PM HEAD MACHINIST Gender Identity Female 01/08/2022 2:47 PM HEAD MACHINIST Sexual Orientation Straight 01/08/2022 2: 47 PM HEAD MACHINIST documented as of this encounter Progress Notes [...] intra-op intravitreal vancomycin and ceftazadime Seen with BEAUTY CONSULTANT today. 08/03/15: Corneal edema continues to improve. [...] vision, worsening concerns. Must come in when BEAUTY CONSULTANT is here. Use fluorescein strips only, not [...] #4 Floaters, right eye CDM Reports - EYEMedical Depot Id: [id number] Status: Fnl documented in this encounter Plan of Treatment Not on file documented as of this encounter Visit Diagnoses Not on filedocumented in this encounter
--- OUTSIDE RECORDS SUMMARY | 2024-01-14 05:53 | XMS_ITS | Encounter Summary ---
Author Organization [facility] Address [address] [place] [address] Care Team Providers Care Retail Service Representative Name Role Phone Unavailable Primary Care Provider Unavailabl e Encounter Details Date Type Department Care Team (Late st Contact Info) Description 08/03/2015 Historical Ophthalmology RST OPH Eva Heard M.D. [address] [facility] 200 [place] [address] Social History Tobacco Use Types Packs/Day Years Used Date Smoking Tobacco: Never Assessed Comments Unknown Sex and Gender Information Value Date Recorded Sex Assigned at Not on file Legal Sex Female 10:27 PM FREEZER LABORATORY TECHNICIAN Gender Identity Female 01/08/2022 2:47 PM FREEZER LABORATORY TECHNICIAN Sexual Orientation Straight 01/08/2022 2: 47 PM FREEZER LABORATORY TECHNICIAN documented as of this encounter Progress [...] intra-op intravitreal vancomycin and ceftazadime Seen with ERCO MACHINE OPERATOR today. 06/13/15: Paul negative. Well formed chamber, with normal IOP. Graft and sutures intact. Suture reaction most significant inferiorly, will continue pred forte TID and consider suture removal inferiorly at next visit. 06/16/15: Paul negative, formed chamber, suture reaction on all original graft sutures, no loose sutures, discussed with LJM, continue current drops and return next week when ERCO MACHINE OPERATOR here. Seen with SCB today. 06/20/15: Paul negative, formed chamber, suture reaction decreased, seen with ERCO MACHINE OPERATOR, M Parasol occluder placed in left lower puncum, expires 2018, LOT [id number] 06/27/15: Paul negative, increased edema over snowman [...] both eyes CDM Reports - EYEGEN Id: [id number] Status: Fnl documented in this encounter Plan of Treatment Not on file documented as of this encounter Visit Diagnoses Not on filedocumented in this encounter
--- OUTSIDE RECORDS SUMMARY | 2024-01-14 05:53 | XMS_ITS | Encounter Summary ---
Author Organization [facility] Address [address] [place] [address] Care Team Providers Care Science Instructor Name Role Phone Unavailable Primary Care Provider Unavailabl e Encounter Details Date Type Department Care Team (Late st Contact Info) Description 06/13/2015 Historical Ophthalmology RST OPH Maricruz Garcia M.D. Social History Tobacco Use Types Packs/Day Years Used Date Smoking Tobacco: Never Assessed Comments Unknown Sex and Gender Information Value Date Recorded Sex Assigned at Not on file Legal Sex Female 10:27 PM SEPTIC TANK SERVICE TECHNICIAN Gender Identity Female 01/08/2022 2:47 PM SEPTIC TANK SERVICE TECHNICIAN Sexual Orientation Straight 01/08/2022 2: 47 PM SEPTIC TANK SERVICE TECHNICIAN documented as of this encounter Progress [...] Monocular status CDM Reports - EYEGEN Id: [id number] Status: Fnl documented in this encounter Plan of Treatment Not on file documented as of this encounter Visit Diagnoses Not on filedocumented in this encounter
--- OUTSIDE RECORDS SUMMARY | 2024-01-14 05:53 | XMS_ITS | Encounter Summary ---
Author Organization [facility] Address [address] [place] [address] Care Team Providers Care Compliance Vice President Name Role Phone Unavailable Primary Care Provider Unavailabl e Encounter Details Date Type Department Care Team (Late st Contact Info) Description 05/11/2015 Historical Ophthalmology [facility] Frantz Lee M.D. [address] [place] [phone] Social History Tobacco Use Types Packs/Day Years Used Date Smoking Tobacco: Never Assessed Comments Unknown Sex and Gender Information Value Date Recorded Sex Assigned at Not on file Legal Sex Female 10:27 PM SENIOR PHARMACY TECHNICIAN Gender Identity Female 01/08/2022 2:47 PM SENIOR PHARMACY TECHNICIAN Sexual Orientation Straight 01/08/2022 2: 47 PM SENIOR PHARMACY TECHNICIAN documented as of this encounter Progress [...] left eye CDM Reports - EYEGEN Id: [id number] Status: Fnl documented in this encounter Plan of Treatment Not on file documented as of this encounter Visit Diagnoses Not on filedocumented in this encounter
--- OUTSIDE RECORDS SUMMARY | 2024-01-14 05:53 | XMS_ITS | Encounter Summary ---
Author Organization [facility] Address [address] [place] [address] Care Team Providers Care Shipping/Receiving Clerk Name Role Phone Unavailable Primary Care Provider Unavailabl e Encounter Details Date Type Department Care Team (Late st Contact Info) Description 05/12/2015 Historical Ophthalmology [facility]ST O[facility] Frantz Lee M.D. [address] [place] [phone] Social History Tobacco Use Types Packs/Day Years Used Date Smoking Tobacco: Never Assessed Comments Unknown Sex and Gender Information Value Date Recorded Sex Assigned at Not on file Legal Sex Female 10:27 PM DIRECTOR MOTION PICTURE Gender Identity Female 01/08/2022 2:47 PM DIRECTOR MOTION PICTURE Sexual Orientation Straight 01/08/2022 2: 47 PM DIRECTOR MOTION PICTURE documented as of this encounter Progress Notes [...] left eye CDM Reports - EYEGEN Id: [id number] Status: Fnl documented in this encounter Plan of Treatment Not on file documented as of this encounter Visit Diagnoses Not on filedocumented in this encounter
== END 2024-01-13 17:13 | disposition home or self-care (01) ==
LOC: AMB 01-14 05:49
PROVIDERS: PCP Family Medicine; Visit Provider Emergency Medicine Emergency Medical Services
DX: R42 Dizziness and giddiness (principal)
CPT/HCPCS: A0425; A0427

== ENCOUNTER 2024-01-13 17:41 | Emergency (ER) | payer MEDICARE, BC, SELFPAY ==
[2024-01-13] VITALS (12 sets, daily range): BP systolic 227–248; BP diastolic 80–106; PULSE 86; RESP 18; TEMP 36.3; O2SAT 96; BMI 15.6
--- NOTE | 2024-01-13 18:36 | ED_ITS ---
HPI - Dizziness General Chief Complaint: Dizziness/Vertigo Stated Complaint: Dizziness Time Seen by Provider: 01/13/24 18:19 History of Present Illness HPI Narrative: This 78-year-old female comes in reporting vertigo symptoms that began today. She states that she does not feel any vertigo symptoms when remaining still but feels some sense of movement when getting up to move around. She has kidney failure and goes to dialysis 3 times a week. She did finish dialysis today and states that many times her blood pressure is elevated after dialysis. This is the case today as her blood pressure has a systolic value greater than 200. She states that she has chronic back pain and was told by her doctor that she would need a surgery but they would not do so until she quit smoking. She states that she is taking oxycodone twice a day. Related Data Home Medications ?Medication ?Instructions ?Recorded ?Confirmed albuterol sulfate 2.5 mg/3 mL 2.5 mg Q4H PRN dyspnea 11/28/22 (0.083 %) solution for nebulization amlodipine 10 mg tablet 10 mg PO BID 11/28/22 12/03/23 aspirin 81 mg capsule 81 mg PO DAILY 11/28/22 12/03/23 clonidine HCl 0.1 mg tablet 0.1 mg PO DIRECTED 11/28/22 12/03/23 furosemide 40 mg tablet 40 mg PO QAM 11/28/22 12/03/23 glipizide 10 mg tablet, extended 10 mg PO DAILY 11/28/22 12/03/23 release 24 hr labetalol 300 mg tablet 300 mg PO 3XD 11/28/22 12/03/23 oxycodone 5 mg tablet 5 mg PO BID PRN 11/28/22 12/03/23 repaglinide 1 mg tablet 1 mg PO 3XD 11/28/22 12/03/23 sennosides 8.6 mg tablet (senna) 8.6 - 34.4 mg PO DAILY PRN 11/28/22 12/03/23 sorbitol 70 % solution 30 ml PO DAILY PRN constipation 11/28/22 12/03/23 albuterol sulfate 90 mcg/actuation 2 puff inhalation BID 12/03/23 12/03/23 aerosol inhaler calcium acetate(phosphat bind) 667 1,334 mg PO 3XD 12/03/23 12/03/23 mg capsule dextran 70-hypromellose (PF) 0.1 1 drp ophthalmic (eye) DIRECTED 12/03/23 12/03/23 %-0.3 % eye drops in a dropperette (Bion Tears (PF)) ipratropium 0.5 mg-albuterol 3 mg 3 ml inhalation Q6H PRN dyspnea 12/03/23 12/03/23 (2.5 mg base)/3 mL nebulization soln nifedipine 90 mg tablet,extended 90 mg PO DAILY 12/03/23 12/03/23 release 24 hr pantoprazole 40 mg tablet,delayed 40 mg PO BID 12/03/23 12/03/23 release spironolactone 25 mg tablet 25 mg PO DAILY 12/03/23 12/03/23 umeclidinium 62.5 mcg/actuation 1 inh inhalation DAILY 12/03/23 12/03/23 blister powder for inhalation (Incruse Ellipta) Previous Rx's ?Medication ?Instructions ?Recorded levofloxacin 500 mg tablet 500 mg PO .QOD 10 days #5 tabs 12/03/23 meclizine 25 mg tablet 25 mg PO BID PRN #10 tabs 01/13/24 Allergies Allergy/AdvReac Type Severity Reaction Status Date / Time atenolol Allergy Unknown Rash Verified 12/03/23 19:43 atorvastatin (From Lipitor) Allergy Unknown Verified 12/03/23 19:43 cat dander Allergy Unknown Difficulty Verified 12/03/23 19:43 Breathing dog dander Allergy Unknown Sneezing Verified 12/03/23 19:43 zarco Allergy Unknown Edema Verified 12/03/23 19:43 gemfibrozil Allergy Unknown Verified 12/03/23 19:43 hydrochlorothiazide Allergy Unknown Rash Verified 12/03/23 19:43 losartan Allergy Unknown Verified 12/03/23 19:43 niacin Allergy Unknown Verified 12/03/23 19:43 oak Allergy Unknown Rash Verified 12/03/23 19:43 pioglitazone Allergy Unknown Verified 12/03/23 19:43 ampicillin Allergy Hives Verified 12/03/23 19:43 dulaglutide (From Trulicity) AdvReac Unknown Vomiting Verified 12/03/23 19:43 pravastatin AdvReac Unknown Verified 12/03/23 19:43 simvastatin AdvReac Unknown Verified 12/03/23 19:43 gatifloxacin (From Tequin) AdvReac Nausea Verified 12/03/23 19:43 lisinopril AdvReac Cough Verified 12/03/23 19:43 Review of Systems Status of ROS: Reports: 10 or more systems reviewed and unremarkable except as noted in History and below Narrative: Constitutional: No fevers, no weight gain or loss. Eyes: No discharge. No vision changes. HENT: No congestion, no sore throat, no ear pain. Cardiovascular: No chest pain, no palpitations. Respiratory: No shortness of breath, no wheezes, no cough. Gastrointestinal: No abdominal pain, no vomiting, no diarrhea. No nausea. Genitourinary: No dysuria, no hematuria. Musculoskeletal: Normal range of motion. Chronic back pain. Skin: No rashes, no pruritis. Neurological: No weakness, sensory change, speech change. Vertigo symptoms with movement but absent at rest or remaining still. Endo/Heme/Allergies: No bruising or bleeding. No polydipsia. Pysch: no suicidality, no anxiety, no insomnia. All other systems reviewed and are negative. [facility] Social History Smoking Status: Current some day smoker What tobacco products do you use: cigarettes Do you use any of these nicotine containing products: None Second hand tobacco smoke exposure: No How often do you have a drink containing alcohol: never AUDIT-C Alcohol total score: 0 Non-prescribed substance use: denies use Exam Narrative: Exam Narrative: Constitutional: Well-developed, well-nourished, no acute distress. HEENT: Normocephalic, atraumatic. Neck: Normal range of motion. Nontender. Supple. Heart: Regular. No murmurs. Normal rate. Intact distal pulses. Lungs: Clear to auscultation. No chest discomfort. No wheezes, rhonchi, or rales. Abdomen: Normal bowel sounds. Nontender. No rebound tenderness. Genitalia: Deferred. Back: No midline tenderness. Normal range of motion. Extremities: Normal range of motion. No injury. Skin: Intact. No rash. Warm. No erythema or pallor. Neurologic: No altered sensation. No weakness. Alert and oriented. No facial asymmetry. Tongue is midline. [id number]-hg-[id number] is normal. No pronator drift. Open Hearth Melter strength is equal bilaterally. Able to raise each leg from the bed. Psychiatric: No suicidality. No anxiety or depression. No insomnia. Nursing notes and vitals signs are reviewed. Const: Vital Signs, click to edit/add: Vital Signs - 24 hr 01/13/24 17:52 01/13/24 18:22 01/13/24 18:32 Temperature 97.4 F L Pulse Rate [Pulse Oximeter] 86 Respiratory Rate 18 Blood Pressure 248/94 H 235/95 H Blood Pressure [Ri ght Upper Arm] 242/84 H Pulse Oximetry 96 Oxygen Delivery Me thod Room Air 01/13/24 18:42 01/13/24 19:02 01/13/24 19:13 Temperature Pulse Rate [Pulse Oximeter] Respiratory Rate Blood Pressure 233/80 H 241/85 H 233/103 H Blood Pressure [Ri ght Upper Arm] Pulse Oximetry Oxygen Delivery Me thod 01/13/24 19:22 Temperature Pulse Rate [Pulse Oximeter] Respiratory Rate Blood Pressure 227/106 H Blood Pressure [Ri ght Upper Arm] Pulse Oximetry Oxygen Delivery Me thod Course Vital Signs Vital signs: Initial Vital Signs Temperature 97.4 F L 01/13/24 17:52 Temperature Source Temporal Artery Scan 01/13/24 17:52 Pulse Rate 86 01/13/24 17:52 Respiratory Rate 18 01/13/24 17:52 Blood Pressure 242/84 H 01/13/24 17:52 Blood Pressure Mean 136 H 01/13/24 17:52 Blood Pressure Position Sitting 01/13/24 17:52 Pulse Oximetry 96 01/13/24 17:52 Oxygen Delivery Method Room Air 01/13/24 17:52 Vital Signs Temperature 97.4 F L 01/13/24 17:52 Pulse Rate 86 01/13/24 17:52 Respiratory Rate 18 01/13/24 17:52 Blood Pressure 242/84 H 01/13/24 17:52 Pulse Oximetry 96 01/13/24 17:52 Oxygen Delivery Method Room Air 01/13/24 17:52 Temperature 97.4 F L 01/13/24 17:52 Pulse Rate 86 01/13/24 17:52 Respiratory Rate 18 01/13/24 17:52 Blood Pressure 227/106 H 01/13/24 19:22 Pulse Oximetry 96 01/13/24 17:52 Oxygen Delivery Method Room Air 01/13/24 17:52 Medications Administered Medications: Discontinued Medications Generic Name Dose Route Start Last Admin Trade Name Ankur PRN Reason Stop Dose Admin Meclizine HCl 25 mg 01/13/24 18:34 01/13/24 18:43 Meclizine Hcl 25 Mg Tablet PO 01/13/24 18:35 25 mg ONCE ONE Administration Oxycodone HCl 5 mg 01/13/24 18:34 01/13/24 18:43 Oxycodone 5 Mg Tablet PO 01/13/24 18:35 5 mg ONCE ONE Administration MDM - Dizziness MDM Narrative Medical decision making narrative: This patient is a dialysis patient who did have dialysis today. She comes in because of vertigo symptoms that began today. These symptoms are not present when remaining still and at rest but with any kind of movement she feels like there is sense of movement. She does not report any other symptoms and does not show any sign of neurologic deficit. Her neurologic exam is completely normal. Her symptoms are not suspicious for a central process of vertigo such as a stroke. More likely this is a disturbance in her inner ear. The patient has significantly elevated blood pressure but reports that this is typically the case after having dialysis. Labs are acquired here and these returned with reassuring results. Her electrolytes are in normal range. Her sodium is just 1 point low at 134. Her creatinine returns at 3.2 and glucose at 190. White count and hemoglobin are in normal range. The patient states that she is feeling better after receiving meclizine tablet. She also requested something for pain so I did give her 1 oxycodone tablet. The patient was sleeping at the time I went to reexamine her. She states that she is feeling better. She is okay to be discharged home to resume current plans. I did provide a prescription for meclizine. Lab Data Labs: Lab Results 01/13/24 Range/Units 18:52 WBC 6.65 (4.50-11.00) K/uL RBC 4.61 (4.00-5.20) m/uL Hgb 12.6 (12.0-16.0) gm/dL Hct 40.9 (33.0-51.0) % MCV 89 (80-100) fL MCH 27 (26-34) pg MCHC 31 L (32-36) gm/dL RDW Coeff of Margaret 18.5 H (11.5-15.5) % Plt Count 229 (140-440) K/uL Neut % (Auto) 76.9 H (42.0-72.0) % Lymph % (Auto) 12.2 L (20-44) % [place] % (Auto) 6.3 (0.0-11.0) % Eos % (Auto) 4.1 (0.0-7.0) % Baso % (Auto) 0.3 (0.0-3.0) % Neut # (Auto) 5.10 (1.7-7.0) K/uL Lymph # (Auto) 0.80 L (0.90-2.90) K/uL [place] # (Auto) 0.40 (0.00-0.90) K/UL Eos # (Auto) 0.27 (0.00-0.50) K/uL Baso # (Auto) 0.02 (0.00-0.30) K/uL Abs Immat Gran (auto) 0.01 (0.00-0.30) K/uL Imm/Tot Granulo (auto) 0.2 % Sodium 134 L (135-149) mmol/L Potassium 4.1 (3.6-5.1) mmol/L Chloride 97 (96-114) mmol/L Carbon Dioxide 30 (20-32) mmol/L Anion Gap 7 (7-15) mEq/L BUN 25 (7-30) mg/dL Creatinine 3.2 H (0.5-1.5) mg/dL Estimated Creat Clear 8.57 Estimated GFR 14 ml/min Glucose 190 H (60-115) mg/dL Calcium 9.8 (8.4-10.6) mg/dL Discharge Plan Discharge Clinical Impression: Benign paroxysmal positional vertigo, Chronic kidney disease with end stage renal failure on dialysis Patient Disposition: Home, Self-Care Condition: Stable Additional Instructions: Take meclizine as prescribed and needed for vertigo symptoms. Continue current plans and follow-up with primary physician for ongoing management. Return if worsening. Prescriptions: New meclizine 25 mg tablet 25 mg PO BID PRNQty: 10 0RF No Action furosemide 40 mg tablet 40 mg PO QAM sennosides [senna] 8.6 mg tablet 8.6 - 34.4 mg PO DAILY PRN clonidine HCl 0.1 mg tablet 0.1 mg PO DIRECTED Rx Instructions: TAKE 2 TABLETS BY MOUTH IN THE MORNING, AND TAKE 3 TABLETS BY MOUTH AT BE DTIME albuterol sulfate 2.5 mg /3 mL (0.083 %) solution for nebulization 2.5 mg Q4H PRN (Reason: dyspnea) glipizide 10 mg tablet extended release 24hr 10 mg PO DAILY Rx Instructions: take 2 tablets by mouth daily amlodipine 10 mg tablet 10 mg PO BID labetalol 300 mg tablet 300 mg PO 3XD sorbitol 70 % solution 30 ml PO DAILY PRN (Reason: constipation) repaglinide 1 mg tablet 1 mg PO 3XD oxycodone 5 mg tablet 5 mg PO BID PRN aspirin 81 mg capsule 81 mg PO DAILY albuterol sulfate 90 mcg/actuation HFA aerosol inhaler 2 puff inhalation BID calcium acetate(phosphat bind) 667 mg capsule 1,334 mg PO 3XD Bion Tears (PF) 0.1-0.3 % dropperette 1 drp ophthalmic (eye) DIRECTED ipratropium-albuterol 0.5 mg-3 mg(2.5 mg base)/3 mL solution for nebulization 3 ml INHALATION Q6H PRN (Reason: dyspnea) spironolactone 25 mg tablet 25 mg PO DAILY nifedipine 90 mg tablet extended release 24hr 90 mg PO DAILY pantoprazole 40 mg tablet,delayed release (DR/EC) 40 mg PO BID Incruse Ellipta 62.5 mcg/actuation blister with device 1 inh INHALATION DAILY levofloxacin 500 mg tablet 500 mg PO .QOD 10 Days Qty: 5 0RF Follow Up/Referrals: Tyrell Schneider MD [Primary Care Provider] - Stand Alone Forms: [facility] Info Instructions
[2024-01-13] MEDS: OXYCODONE 5 MG TABLET PO (18:43)
[2024-01-13] MEDS: MECLIZINE HCL 25 MG TABLET PO (18:43)
--- OUTSIDE RECORDS SUMMARY | 2024-01-13 18:50 | XMS_ITS | Referral Summary ---
Author Organization [facility] Address [address] [place] [id number] Care Team Providers Care Machine Splitter Name Role Phone Tyrell Schneider Primary Care Provider [phone] Allergies Active Allergy Reactions Criticality Noted Date [...] 01/09/2010 itching Niacin Rash,Itching Low 05/13/2006 itch [place] Rash Low 05/16/2010 Oxycodone Nausea and Vomiting 05/25/2015 Pioglitazone Rash Low 10/11/2020 Itchy rash Pravastatin Muscle Pain (Myalgia),Other (See Comments) 01/22/2012 Other Reaction(s): Back Pain Simvastatin Other (See Comments) 04/04/2016 Other Reaction(s): Back Pain Leg pain Tolerating every other day. Tetracycline Other (See Comments) 05/09/2015 bumps Medications aspirin 81 MG EC tablet Take 81 mg by mouth every evening Active albuterol (PROVENTIL) (2.5 MG/3ML) 0.083% neb solution Take 2.5 mg by nebulization every 4 hours as needed for shortness of breath 3 Active amLODIPine (NORVASC) 10 MG tablet Take 10 mg by mouth 2 times daily 3 Active cloNIDine (CATAPRES) 0.1 MG tablet Take 0.2 mg by mouth every morning 2 Active erythromycin (ROMYCIN) 5 MG/GM ophthalmic ointment Place Into the left eye 4 times daily 3 Active neomycin-polymyx in-dexAMETHasone (MAXITROL) 3.5-82275-6.[address] 0.25 inches Into the left eye 4 times daily 3 Active oxyCODONE (ROXICODONE) 5 MG tablet Take 10 mg by mouth at bedtime 2 Active repaglinide (PRANDIN) 1 MG tablet Take 1 tablet by mouth 3 times daily (before meals) 1 Active senna (SENOKOT) 8.6 MG tablet Take 1 tablet by mouth every 3 days 3 Active sorbitol 70 % SOLN solution Take 30 mLs by mouth every 3 days 2 Active triamcinolone (KENALOG) 0.1 % external cream Apply topically daily as needed for irritation 1 Active glipiZIDE (GLUCOTROL XL) 10 MG 24 hr tablet Take 20 mg by mouth every morning 3 Active ipratropium - albuterol 0.5 mg/2.5 mg/3 mL (DUONEB) 0.5-2.5 (3) MG/3ML neb solution Inhale 3 mLs into the lungs every 6 hours as needed for shortness of breath 1 Active labetalol (NORMODYNE) 300 MG tablet Take 600 mg by mouth 2 times daily 3 Active polyethylene glycol (MIRALAX) 17 g packet Take 1 packet by mouth every 3 days Active cetirizine (ZYRTEC) 10 MG tablet Take 10 mg by mouth every evening Active furosemide (LASIX) 40 MG tablet Take 40 mg by mouth daily Active carboxymethylcel lulose PF (REFRESH PLUS) 0.5 % ophthalmic solution Place 1 drop into both eyes 2 times daily Active pantoprazole (PROTONIX) 40 MG EC tabletIndication s:Anemia, unspecified type Take 1 tablet (40 mg) by mouth 2 times daily (before meals) 60 tablet 3 Active umeclidinium (INCRUSE ELLIPTA) 62.5 MCG/ACT inhalerIndicatio ns:Chronic obstructive pulmonary disease, unspecified COPD type (H) Inhale 1 puff into the lungs daily 7 each 3 Active nicotine (NICODERM CQ) 21 MG/24HR [address] 1 patch onto the skin every 24 hours Active multivitamin RENAL (RENAVITE RX/NEPHROVITE) 1 tablet tablet Take 1 tablet by mouth daily Active cloNIDine (CATAPRES) 0.1 MG tablet Take 0.3 mg by mouth every evening Active senna-docusate (SENOKOT-S/PERIC OLACE) 8.6-50 MG tabletIndication s:Constipation, unspecified constipation type Take 1 tablet by mouth daily as needed for constipation 4 Active Active Problems Problem Noted Date [...] Getting School Help Needed Not on file 10/14 /2023 Comments No Sex and Gender Information Value Date Recorded Sex Assigned at Not on file Legal Sex Female 4:24 PM CDT Gender Identity Female 11/24/2022 4:30 PM CDT Sexual Orientation Not on file Last Filed Vital Signs Vital Sign Reading Time Taken Comments Blood Pressure 166/77 02/21/2023 3:58 PM BENEFITS MANAGER Pulse 64 02/21/2023 3:58 PM BENEFITS MANAGER Temperature 36.9 C (98.4 F) 02/21/2023 3:58 PM BENEFITS MANAGER Respiratory Rate 18 02/21/2023 3:58 PM BENEFITS MANAGER Oxygen Saturation 99% 02/21/2023 3:58 PM BENEFITS MANAGER Inhaled Oxygen Concentration - - Weight 40.8 kg (90 lb) 02/20/2023 8:47 PM BENEFITS MANAGER Height 154.9 cm (5' 1) 12/13/2022 3:15 AM CDT Body Mass Index 17.01 12/13/2022 3:15 AM CDT Plan of Treatment Not on file Procedures Procedure Name Priority Date/Time Associated Diagnosis Comments CBC WITH PLATELETS Routine 02/21/2023 8: 16 AM BENEFITS MANAGER BASIC METABOLIC PANEL Routine 02/21/2023 8:16 AM BENEFITS MANAGER GLUCOSE BY METER Routine 02/21/2023 1:08 AM BENEFITS MANAGER COMPREHENSIVE METABOLIC PANEL STAT 02/20/2023 8:52 AM BENEFITS MANAGER RENAL PANEL Routine 12/18/2022 8:45 AM BENEFITS MANAGER OCCULT BLOOD STOOL STAT 12/12/2022 11 :03 PM CDT from Last 3 Months or Most Recently Relevant to Health Maintenance Results * (ABNORMAL) Basic metabolic panel (02/21/2023 8:16 AM BENEFITS MANAGER) Sodium 134(L) 135 - 145 mmol/L 02/21/2023 8:55 AM BENEFITS MANAGER [facility] Comment:Reference intervals for this test were updated on 11/06/2022 to more accurately reflect our healthy population. There may be differences in the flagging of prior results with similar values performed with this method. Interpretation of those prior results can be made in the context of the updated reference intervals. Potassium 4.0 3.4 - 5.3 mmol/L 02/21/2023 8:[address] [facility] Chloride 97(L) 98 - 107 mmol/L 02/21/2023 8:[address] [facility] Carbon Dioxide (CO2) 28 22 - 29 mmol/L 02/21/2023 8:[address] [facility] Anion Gap 9 7 - 15 mmol/L 02/21/2023 8:[address] [facility] Urea Nitrogen 12.8 8.0 - 23.0 mg/dL 02/21/2023 8:[address] [facility] Creatinine 2.49(H) 0.51 - 0.95 mg/dL 02/21/2023 8:[address] [facility] GFR Estimate 20(L) >60 mL/min/1. 73m2 02/21/2023 8:[address] [facility] Calcium 8.6(L) 8.8 - 10.2 mg/dL 02/21/2023 8:[address] [facility] Glucose 144(H) 70 - 99 mg/dL 02/21/2023 8:[address] [facility] Blood STRUCTURE OF RIGHT HAND / Unknown Venipuncture / Unknown 02/21/2023 8:16 AM BENEFITS MANAGER 02/21/2023 8:34 AM [facility] us Nidia Yanez DO LAB - BLOOD ORDERABLES Fi nal Result LABORATORY [facility] [address] [facility] Lab (1st floor, no room number) [place] [address] [phone] * (ABNORMAL) CBC with platelets (02/21/2023 8:16 AM BENEFITS MANAGER) [facility] Signature WBC Count 6.6 4.0 - 11.0 10e3/uL 02/21/2023 8:[address] [facility] RBC Count 4.43 3.80 - 5.20 10e6/uL 02/21/2023 8:[address] [facility] Hemoglobin 12.3 11.7 - 15.7 g/dL 02/21/2023 8:39 AM BENEFITS MANAGER [facility] Hematocrit 39.2 35.0 - 47.0 % 02/21/2023 8:39 AM BENEFITS MANAGER [facility] MCV 89 78 - 100 fL 02/21/2023 8:39 AM BENEFITS MANAGER [facility] MCH 27.8 26.5 - 33.0 pg 02/21/2023 8:39 AM BENEFITS MANAGER [facility] MCHC 31.4(L) 31.5 - 36.5 g/dL 02/21/2023 8:39 AM BENEFITS MANAGER [facility] RDW 19.3(H) 10.0 - 15.0 % 02/21/2023 8:39 AM BENEFITS MANAGER [facility] Platelet Count 292 150 - 450 10e3/uL 02/21/2023 8:39 AM BENEFITS MANAGER [facility] Blood STRUCTURE OF RIGHT HAND / Unknown Venipuncture / Unknown 02/21/2023 8:16 AM BENEFITS MANAGER 02/21/2023 8:34 AM BENEFITS MANAGER us Nidia Yanez DO LAB - BLOOD ORDERABLES Fi nal Result [facility] [address] Lab (1st floor, no room number) [place] [address], [place] [phone] * (ABNORMAL) Glucose by meter (02/21/2023 1:08 AM BENEFITS MANAGER) GLUCOSE BY METER POCT 131(H) 70 - 99 mg/dL 02/21/2023 1:17 AM BENEFITS MANAGER LABORATORY POC Blood, Capillary BLOOD SPECIMEN / Unknown 02/21/2023 1:08 AM BENEFITS MANAGER 02/21/2023 1:17 AM BENEFITS MANAGER us Joseph Jeffers MD LAB - BEAKER POCT Final R esult LABORATORY [facility] [address] Lab (1st floor, no room number) [place] [address], [place] [phone] * (ABNORMAL) Comprehensive metabolic panel (02/20/2023 8:52 AM BENEFITS MANAGER) Sodium 135 135 - 145 mmol/L 02/20/2023 9:[address] [facility] Comment:Reference intervals for this test were updated on 11/06/2022 to more accurately reflect our healthy population. There may be differences in the flagging of prior results with similar values performed with this method. Interpretation of those prior results can be made in the context of the updated reference intervals. Potassium 4.2 3.4 - 5.3 mmol/L 02/20/2023 9:[address] [facility] Carbon Dioxide (CO2) 25 22 - 29 mmol/L 02/20/2023 9:[address] [facility] Anion Gap 12 7 - 15 mmol/L 02/20/2023 9:[address] [facility] Urea Nitrogen 34.5(H) 8.0 - 23.0 mg/dL 02/20/2023 9:[address] [facility] Creatinine 3.81(H) 0.51 - 0.95 mg/dL 02/20/2023 9:[address] [facility] GFR Estimate 12(L) >60 mL/min/1. 73m2 02/20/2023 9:[address] [facility] Calcium 8.7(L) 8.8 - 10.2 mg/dL 02/20/2023 9:[address] [facility] Chloride 98 98 - 107 mmol/L 02/20/2023 9:[address] [facility] Glucose 112(H) 70 - 99 mg/dL 02/20/2023 9:[address] [facility] Alkaline Phosphatase 122 40 - 150 U/L 02/20/2023 9:[address] [facility] Comment:Reference intervals for this test were updated on 12/25/2022 to more accurately reflect our healthy population. There may be differences in the flagging of prior results with similar values performed with this method. Interpretation of those prior results can be made in the context of the updated reference intervals. AST 18 0 - 45 U/L 02/20/2023 9:[address] [facility] Comment:Reference intervals for this test were updated on 07/23/2022 to more accurately reflect our healthy population. There may be differences in the flagging of prior results with similar values performed with this method. Interpretation of those prior results can be made in the context of the updated reference intervals. ALT 5 0 - 50 U/L 02/20/2023 9:[address] [facility] Comment:Reference intervals for this test were updated on 07/23/2022 to more accurately reflect our healthy population. There may be differences in the flagging of prior results with similar values performed with this method. Interpretation of those prior results can be made in the context of the updated reference intervals. Protein Total 6.3(L) 6.4 - 8.3 g/dL 02/20/2023 9:27 AM BENEFITS MANAGER [facility] Albumin 3.2(L) 3.5 - 5.2 g/dL 02/20/2023 9:[address] [facility] Bilirubin Total 0.2 <=1.2 mg/dL 02/20/2023 9:[address] [facility] Blood STRUCTURE OF LEFT UPPER LIMB / Unknown Venipuncture / Unknown 02/20/2023 8:52 AM BENEFITS MANAGER 02/20/2023 8:59 AM BENEFITS MANAGER us Kai Khan DO LAB - BLOOD ORDERABLES Fin al Result LABORATORY [facility] [address] [facility] Lab (1st floor, no room number) [place] [address], [facility] [phone] * (ABNORMAL) Renal panel (12/18/2022 8:45 AM BENEFITS MANAGER) Sodium 135 135 - 145 mmol/L 12/18/2022 9:[address] [facility] Comment:Reference intervals for this test were updated on 11/06/2022 to more accurately reflect our healthy population. There may be differences in the flagging of prior results with similar values performed with this method. Interpretation of those prior results can be made in the context of the updated reference intervals. Potassium 4.2 3.4 - 5.3 mmol/L 12/18/2022 9:[address] [facility] Chloride 99 98 - 107 mmol/L 12/18/2022 9:[address] [facility] Carbon Dioxide (CO2) 29 22 - 29 mmol/L 12/18/2022 9:[address] [facility] Anion Gap 7 7 - 15 mmol/L 12/18/2022 9:[address] [facility] Glucose 128(H) 70 - 99 mg/dL 12/18/2022 9:44 AM BENEFITS MANAGER LAB[facility]ATORY Urea Nitrogen 17.7 8.0 - 23.0 mg/dL 12/18/2022 9:44 AM BENEFITS MANAGER LAB[facility] Creatinine 2.67(H) 0.51 - 0.95 mg/dL 12/18/2022 9:[address] [facility] GFR Estimate 18(L) >60 mL/min/1. 73m2 12/18/2022 9:44 AM BENEFITS MANAGER [facility] Calcium 7.6(L) 8.8 - 10.2 mg/dL 12/18/2022 9:[address] [facility] Albumin 2.6(L) 3.5 - 5.2 g/dL 12/18/2022 9:44 AM BENEFITS MANAGER [facility] Phosphorus 2.3(L) 2.5 - 4.5 mg/dL 12/18/2022 9:[address] [facility] Blood STRUCTURE OF RIGHT UPPER LIMB / Unknown Venipuncture / Unknown 12/18/2022 8:45 AM BENEFITS MANAGER 12/18/2022 8:50 AM BENEFITS MANAGER us David Treviño MD LAB - BLOOD ORDERABLES Final Res ult [facility] [address] Lab (1st floor, no room number) [place] [address], [facility] [phone] * Stool: occult blood (12/12/2022 11:03 PM CDT) Pathologist [facility] Occult Blood Negative Negative [facility] 12/12/2022 11:32 PM CDT LABORATORY Stool RECTAL CONTENTS / Unknown Non-blood Collection / Unknown 12/12/2022 11:03 PM CDT 12/12/2022 11:11 PM CDT us Jason Tapia MD LAB - STOOLS ORDERABLES Final Result [facility] [address] Lab (1st floor, no room number) [place] [address], [facility] [phone] from Last 3 Months or Most Recently Relevant to Health Maintenance Insurance [facility] [employer] [facility] Advance Directives For more information, please contact: [phone] * Full Code (Latest Code Status on [...] patie nt/ legal decision maker Care Teams Machine Splitter Relationship Specialty Start Date End Date Tyrell Schneider [address] [place] [address] PCP - General Family Medicine 02/19/23
--- OUTSIDE RECORDS SUMMARY | 2024-01-13 18:50 | XMS_ITS | Clinical Summary ---
Author Organization [facility] Address [address] [place] [id number] Care Team Providers Care Trackless Trolley Driver Name Role Phone Tyrell Schneider Primary Care Provider [phone] Allergies Active Allergy Reactions Criticality Noted Date [...] 01/09/2010 itching Niacin Rash,Itching Low 05/13/2006 itch [place] Rash Low 05/16/2010 Oxycodone Nausea and [...] times daily 3 Active neomycin-polymyx in-dexAMETHasone (MAXITROL) [id number] 0.25 inches Into the [...] Comments Blood Pressure 166/77 02/21/2023 3:58 PM RATE CLERK PASSENGER Pulse 64 02/21/2023 3:58 PM RATE CLERK PASSENGER Temperature 36.9 C (98.4 F) 02/21/2023 3:58 PM RATE CLERK PASSENGER Respiratory Rate 18 02/21/2023 3:58 PM RATE CLERK PASSENGER Oxygen Saturation 99% 02/21/2023 3:58 PM RATE CLERK PASSENGER Inhaled Oxygen Concentration - - Weight 40.8 kg (90 lb) 02/20/2023 8:47 PM RATE CLERK PASSENGER Height 154.9 cm (5' 1) 12/13/2022 3:15 [...] Additional history exists INFLUENZA VACCINE (#1) 2023 , 10/25/2021, 10/28/2020, Additional history exists GLUCOSE 02/21/2026 [...] WITH PLATELETS Routine 02/21/2023 8: 16 AM RATE CLERK PASSENGER BASIC METABOLIC PANEL Routine 02/21/2023 8:16 AM RATE CLERK PASSENGER GLUCOSE BY METER Routine 02/21/2023 1:08 AM RATE CLERK PASSENGER COMPREHENSIVE METABOLIC PANEL STAT 02/20/2023 8:52 AM RATE CLERK PASSENGER RENAL PANEL Routine 12/18/2022 8:45 AM RATE CLERK PASSENGER OCCULT BLOOD STOOL STAT 12/12/2022 11 :03 PM CDT from Last 3 Months or Most Recently Relevant to Health Maintenance Results * (ABNORMAL) Basic metabolic panel (02/21/2023 8:16 AM RATE CLERK PASSENGER) Sodium 134(L) 135 - 145 mmol/L 02/21/2023 8:55 AM [facility] Comment:Reference intervals for this test were updated on 11/06/2022 to more accurately reflect our healthy population. There may be differences in the flagging of prior results with similar values performed with this method. Interpretation of those prior results can be made in the context of the updated reference intervals. Potassium 4.0 3.4 - 5.3 mmol/L 02/21/2023 8:55 AM [facility] Chloride 97(L) 98 - 107 mmol/L 02/21/2023 8:55 AM [facility] Carbon Dioxide (CO2) 28 22 - 29 mmol/L 02/21/2023 8:55 AM [facility] Anion Gap 9 7 - 15 mmol/L 02/21/2023 8:55 AM [facility] Urea Nitrogen 12.8 8.0 - 23.0 mg/dL 02/21/2023 8:55 AM [facility] Creatinine 2.49(H) 0.51 - 0.95 mg/dL 02/21/2023 8:55 AM [facility] GFR Estimate 20(L) >60 mL/min/1. 73m2 02/21/2023 8:55 AM [facility] Calcium 8.6(L) 8.8 - 10.2 mg/dL 02/21/2023 8:55 AM [facility] Glucose 144(H) 70 - 99 mg/dL 02/21/2023 8:55 AM [facility] Blood STRUCTURE OF RIGHT HAND / Unknown Venipuncture / Unknown 02/21/2023 8:16 AM RATE CLERK PASSENGER 02/21/2023 8:34 AM [facility] us Nidia Yanez DO LAB - BLOOD ORDERABLES Fi nal Result LABORATORY [facility] [address] Lab (1st floor, no room number) [place] [address], [facility] [phone] * (ABNORMAL) CBC with platelets (02/21/2023 8:16 AM RATE CLERK PASSENGER) WBC Count 6.6 4.0 - 11.0 10e3/uL 02/21/2023 8:39 AM RATE CLERK PASSENGER [facility] RBC Count 4.43 3.80 - 5.20 10e6/uL 02/21/2023 8:39 AM RATE CLERK PASSEN[facility] Hemoglobin 12.3 11.7 - 15.7 g/dL 02/21/2023 8:39 AM RATE CLERK PASSENGER [facility] Hematocrit 39.2 35.0 - 47.0 % 02/21/2023 8:39 AM RATE CLERK PASSENGER [facility] MCV 89 78 - 100 fL 02/21/2023 8:39 AM RATE CLERK PASSENGER [facility] MCH 27.8 26.5 - 33.0 pg 02/21/2023 8:39 AM RATE CLERK PASSENGER [facility] MCHC 31.4(L) 31.5 - 36.5 g/dL 02/21/2023 8:39 AM RATE CLERK PASSENGER [facility] RDW 19.3(H) 10.0 - 15.0 % 02/21/2023 8:39 AM RATE CLERK PASSENGER [facility] Platelet Count 292 150 - 450 10e3/uL 02/21/2023 8:39 AM RATE CLERK PASSENGER [facility] Blood STRUCTURE OF RIGHT HAND / Unknown Venipuncture / Unknown 02/21/2023 8:16 AM RATE CLERK PASSENGER 02/21/2023 8:34 AM RATE CLERK PASSENGER us Nidia Yanez DO LAB - BLOOD ORDERABLES Fi nal Result [facility] [address] Lab (1st floor, no room number) [place] [address], [facility] [phone] * (ABNORMAL) Glucose by meter (02/21/2023 1:08 AM RATE CLERK PASSENGER) [facility] GLUCOSE BY METER POCT 131(H) 70 - 99 mg/dL 02/21/2023 1:17 AM RATE CLERK PASSENGER LABORATORY POC Blood, Capillary BLOOD SPECIMEN / Unknown 02/21/2023 1:08 AM RATE CLERK PASSENGER 02/21/2023 1:17 AM RATE CLERK PASSENGER us Joseph Jeffers MD LAB - BEAKER POCT Final R esult [facility] Lab [address] Lab (1st floor, no room number) [place] [address], [facility] [phone] * (ABNORMAL) Comprehensive metabolic panel (02/20/2023 8:52 AM RATE CLERK PASSENGER) [facility] Sodium 135 135 - 145 mmol/L 02/20/2023 9:27 AM [facility] Comment:Reference intervals for this test were updated on 11/06/2022 to more accurately reflect our healthy population. There may be differences in the flagging of prior results with similar values performed with this method. Interpretation of those prior results can be made in the context of the updated reference intervals. Potassium 4.2 3.4 - 5.3 mmol/L 02/20/2023 9:27 AM [facility] Carbon Dioxide (CO2) 25 22 - 29 mmol/L 02/20/2023 9:27 AM [facility] Anion Gap 12 7 - 15 mmol/L 02/20/2023 9:27 AM [facility] Urea Nitrogen 34.5(H) 8.0 - 23.0 mg/dL 02/20/2023 9:27 AM [facility] Creatinine 3.81(H) 0.51 - 0.95 mg/dL 02/20/2023 9:27 AM [facility] GFR Estimate 12(L) >60 mL/min/1. 73m2 02/20/2023 9:27 AM [facility] Calcium 8.7(L) 8.8 - 10.2 mg/dL 02/20/2023 9:27 AM [facility] Chloride 98 98 - 107 mmol/L 02/20/2023 9:27 AM [facility] Glucose 112(H) 70 - 99 mg/dL 02/20/2023 9:27 AM [facility] Alkaline Phosphatase 122 40 - 150 U/L 02/20/2023 9:27 AM [facility] Comment:Reference intervals for this test were updated on 12/25/2022 to more accurately reflect our healthy population. There may be differences in the flagging of prior results with similar values performed with this method. Interpretation of those prior results can be made in the context of the updated reference intervals. AST 18 0 - 45 U/L 02/20/2023 9:27 AM [facility] Comment:Reference intervals for this test were updated on 07/23/2022 to more accurately reflect our healthy population. There may be differences in the flagging of prior results with similar values performed with this method. Interpretation of those prior results can be made in the context of the updated reference intervals. ALT 5 0 - 50 U/L 02/20/2023 9:27 AM RATE CLERK PASSENGER LABORATORY Comment:Reference intervals for this test were updated on 07/23/2022 to more accurately reflect our healthy population. There may be differences in the flagging of prior results with similar values performed with this method. Interpretation of those prior results can be made in the context of the updated reference intervals. Protein Total 6.3(L) 6.4 - 8.3 g/dL 02/20/2023 9:27 AM RATE CLERK PASSENGER LABORATORY Albumin 3.2(L) 3.5 - 5.2 g/dL 02/20/2023 9:27 AM RATE CLERK PASSENGER LABORATORY Bilirubin Total 0.2 <=1.2 mg/dL 02/20/2023 9:27 AM RATE CLERK PASSENGER LABORATORY Blood STRUCTURE OF LEFT UPPER LIMB / Unknown Venipuncture / Unknown 02/20/2023 8:52 AM RATE CLERK PASSENGER 02/20/2023 8:59 AM RATE CLERK PASSENGER us Kai Khan DO LAB - BLOOD ORDERABLES Fin al Result LABORATORY [facility] [address] [facility] Lab (1st floor, no room number) [place] [address], [facility] [phone] * (ABNORMAL) Renal panel (12/18/2022 8:45 AM RATE CLERK PASSENGER) [facility] Sodium 135 135 - 145 mmol/L 12/18/2022 9:44 AM RATE CLERK PASSENGER LABORATORY Comment:Reference intervals for this test were updated on 11/06/2022 to more accurately reflect our healthy population. There may be differences in the flagging of prior results with similar values performed with this method. Interpretation of those prior results can be made in the context of the updated reference intervals. Potassium 4.2 3.4 - 5.3 mmol/L 12/18/2022 9:44 AM RATE CLERK PASSENGER LABORATORY Chloride 99 98 - 107 mmol/L 12/18/2022 9:44 AM RATE CLERK PASSENGER LABORATORY Carbon Dioxide (CO2) 29 22 - 29 mmol/L 12/18/2022 9:44 AM [facility] Anion Gap 7 7 - 15 mmol/L 12/18/2022 9:44 AM [facility] Glucose 128(H) 70 - 99 mg/dL 12/18/2022 9:44 AM [facility] Urea Nitrogen 17.7 8.0 - 23.0 mg/dL 12/18/2022 9:44 AM [facility] Creatinine 2.67(H) 0.51 - 0.95 mg/dL 12/18/2022 9:44 AM [facility] GFR Estimate 18(L) >60 mL/min/1. 73m2 12/18/2022 9:44 AM [facility] Calcium 7.6(L) 8.8 - 10.2 mg/dL 12/18/2022 9:44 AM [facility] Albumin 2.6(L) 3.5 - 5.2 g/dL 12/18/2022 9:44 AM [facility] Phosphorus 2.3(L) 2.5 - 4.5 mg/dL 12/18/2022 9:44 AM [facility] Blood STRUCTURE OF RIGHT UPPER LIMB / Unknown Venipuncture / Unknown 12/18/2022 8:45 AM RATE CLERK PASSENGER 12/18/2022 8:50 AM RATE CLERK PASSENGER us David Treviño MD LAB - BLOOD ORDERABLES Final Res ult LABORATORY [facility] [address] Lab (1st floor, no room number) [place] [address], [facility] [phone] * Stool: occult blood (12/12/2022 11:03 PM CDT) Occult Blood Negative Negative JENNIFER 12/12/2022 11:32 PM CDT LABORATORY Stool RECTAL CONTENTS / Unknown Non-blood Collection / Unknown 12/12/2022 11:03 PM CDT 12/12/2022 11:11 PM CDT us Jason Tapia MD LAB - STOOLS ORDERABLES Final Result [facility] [address] [facility] Lab (1st floor, no room number) [place] [address], [facility] [phone] from Last 3 Months or Most Recently Relevant to Health Maintenance Insurance [facility] [employer] [place] [address] [address] [place] [phone] [facility] [employer] Advance Directives For more information, please contact: [phone] * Full Code (Latest Code Status on [...] Comments Code status determined by: Discussion with felipae nt/ legal decision maker Care Teams Trackless Trolley Driver Relationship Specialty Start Date End Date Tyrell Schneider [address] [place] [id number] PCP - General Family Medicine 02/19/23
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
--- OUTSIDE RECORDS SUMMARY | 2024-01-13 18:51 | XMS_ITS | Encounter Summary ---
Author Organization [facility] [place] [place] Address [address] [place] [address] Care Team Providers Care Wire Wrapping Machine Operator Name Role Phone Tyrell Schneider MD Primary Care Provider [phone] Encounter Details Date Type Department Care Team ([facility] st Contact Info) Description 12/09/2023 Treatment [facility] [place] [address] [place] [address] Gabriel Smith MD [address] [place] [address] Social History Tobacco Use Types Packs/Day Years Used Date Smoking Tobacco: Never Assessed Comments Unknown Sex and Gender Information Value Date Recorded Sex Assigned at Not on file Legal Sex Female 7:04 PM EDT Gender Identity Not on file Sexual Orientation Not on file documented as of this encounter Miscellaneous Notes * Dialysis Note - Gabriel Smith MD - 12/09/2023 12:00 AM CDT Patient: Maricruz Vanegas : 1945 Note Type: Dialysis Rounds-Comp Service Date: 12/09/2023 This patient was personally seen for a complete visit as part of routine monthly dialysis care for end stage renal disease. Attending Academic Program Specialist: GABRIEL SMITH Dialysis Location: [facility] Schedule: Shift: 2 OVERVIEW COMMENTS: She is feeling ok today. She continues to be concerned about the spot she is in for dialysis with cool air but when asked if she would like to move she has concerns about all locations. When asked if she would like to consider PD again, she says that she doesn't want to do this if it will take more fluid (she was on <3L of fluid previously with high residual function but now likely has much less residual). She has decided against pursuing PD again and decided she will stay in the chair she is at right now. She is on Abx for CAP, it is improving. HOME MEDICATIONS Medications reviewed. Current [facility] Medications albuterol sulfate 2.5 mg/3 mL (0.083 %) solution for nebulization Take 1 vial as directed every four hours as needed. Shania Low Dose Aspirin 81 mg tablet,delayed release (DR/EC) Take 1 tablet by mouth once a day. calcitriol 0.5 mcg capsule 1 capsule by mouth once a day. calcium acetate(phosphat bind) 667 mg capsule Take 2 capsule by mouth three times a day with meals. [for phosphorus control.] clonidine HCl 0.1 mg tablet Take 2 tablet by mouth every morning. [3 tabs HS] furosemide 40 mg tablet Take 1 tablet by mouth once a day as directed. glipizide 10 mg tablet extended release 24hr Take 2 tablet by mouth once a day. labetalol 300 mg tablet Take 2 tablet by mouth three times a day. levofloxacin 500 mg tablet [every other day.] Miralax 17 gram powder in packet Take 1 packet dissolved in water once a day as directed. [in 8oz liquid take daily as needed for constipation] moxifloxacin 0.5% drops Instill 2 drop into affected eye every two hours. mupirocin 2% ointment Apply 1 a small amount to affected area once a day. [Apply a small amount to dialysis exit site daily] Nephro-Josefina 0.8 mg tablet Take 1 tablet by mouth once a day. oxycodone 5 mg tablet, oral only Take 1 tablet by mouth twice a day as needed for pain. pantoprazole 40 mg tablet,delayed release (DR/EC) 1 tablet by mouth twice a day one hour before meals. Procardia XL 90 mg tablet extended release 24hr Take 1 tablet by mouth once a day. [take it at post dialysis as per (07/22/23)] repaglinide 1 mg tablet Take 3 tablet by mouth three times a day with meals. Senna Lax 8.6 mg tablet Take 2 tablet by mouth once a day. sorbitol 70% solution Take 30 ml by mouth once a day as needed. [take as needed for constipation] spironolactone 25 mg tablet Take 1 tablet by mouth once a day. triamcinolone acetonide 0.1% lotion Apply to skin twice a day as needed. Current [facility] Allergies Allergen: ampicillin Reaction: Hives Allergen: atenolol Reaction: Skin Rash Allergen: atorvastatin Reaction: Back Pain Allergen: fish oil Reaction: Skin Rash Allergen: gatifloxacin Reaction: Nausea/Vomiting Allergen: gemfibrozil Reaction: Itching Allergen: hydrochlorothiazide Reaction: Flushing (Red Skin) Allergen: lisinopril Reaction: Skin Rash Allergen: losartan Reaction: Itching Allergen: niacin Reaction: Itching Allergen: pravastatin Reaction: Back Pain Allergen: simvastatin Reaction: Back Pain DIALYSIS PRESCRIPTION Treatment Data Treatment Date: 12/09/2023 started at: 10:47 AM Dialysate / Machine Temp (prescribed): 37.0*C Dialysate / Machine Temp (actual): 36.8*C BFR (prescribed): 450 BFR (actual): 200 DFR (prescribed): Autoflow 1.5 DFR (actual): 400 Prescribed Time: 02:45 EDW (kg): 39.0 Dialyzer: 160NRe Optiflux Dialysate: 2.0 K, 2.5 Ca, 1.0 Mg, 100 Dextrose (G2251) Sodium: 137 Bicarb: 27 Pre Dialysis Vitals Pre BP Sit: 192/63 Pre Wt (kg): 40.3 EDW Deviation (kg): 1.3 Temp: 95.9*F Current Dialysis Vitals BP Sit: 169/61 AP/MEDICAL LEAD: 58/82 Pulse: 60 TREATMENT MEDICATIONS ORDERS Heparin Sodium (Porcine) 1,000 Units/mL Systemic 2000 units IVP Every Treatment 02/15/2023 - 02/14/2024 Mircera 75 mcg IVP Every 4 weeks During Dialysis 12/02/2023 - 11/30/2024 BP AND FLUID ASSESSMENT High blood pressure. Fluid status acceptable. EDW appropriate. COMMENTS: High BP at end of treatment in particular. She monitors BP at home periodically. She wishes to keep meds the same right now Post BP Sit 193/78 - 12/06/2023 165/64 - 12/04/2023 168/67 - 12/02/2023 Post Wt (kg) 39.2 - 12/06/2023 39.7 - 12/04/2023 39.2 - 12/02/2023 EDW (kg) 39.0 - 12/06/2023 39.0 - 12/04/2023 39.0 - 12/02/2023 Deviation (kg) 0.2 - 12/06/2023 0.7 - 12/04/2023 0.2 - 12/02/2023 ADEQUACY ASSESSMENT Target met. Prescription compliance acceptable. Missed Treatments 0 - Last 30 days 1 - Last 60 days Most recently missed on 10/14/2023 spKt/V (Daugirdas II) 1.90 (11/13/23) 1.80 (10/16/23) 1.78 (09/18/23) eKdrt/V 1.53 (11/13/23) 1.45 (10/16/23) 1.43 (09/18/23) % Urea Reduction 81 (11/13/23) 77 (10/16/23) 78 (09/18/23) BUN 67 (11/13/23) 73 (10/16/23) 46 (09/18/23) BUN Post Dialysis 13 (11/13/23) 17 (10/16/23) 10 (09/18/23) Creatinine 6.01 (11/13/23) 7.76 (10/16/23) 5.37 (09/18/23) Bicarbonate (CO2) 23 (11/13/23) 19 (10/16/23) 22 (09/18/23) Sodium 138 (11/13/23) 134 (10/16/23) 136 (09/18/23) ACCESS ASSESSMENT Vascular access examined. AVF/AVG positive thrill/bruit. Current access is permanent and functioning well. AVFistula Standard Left Upper Arm Active (In Use) - 12/04/2022 Placed - 03/31/2018 Access Flow 334 (12/06/23) 328 (12/02/23) 310 (11/29/23) ANEMIA ASSESSMENT Anemia targets not met. COMMENTS: No ELA Hemoglobin 11.3 (12/04/23) 10.9 (11/27/23) 12.2 (11/20/23) Iron Saturation (TSat) 35 (11/13/23) 27 (10/16/23) 19 (09/18/23) Ferritin 942 (09/18/23) 1,394 (06/12/23) 1,606 (03/22/23) Iron 83 (11/13/23) 60 (10/16/23) 46 (09/18/23) TIBC 239 (11/13/23) 226 (10/16/23) 243 (09/18/23) Reticulocyte Hemoglobin 29.2 (08/21/23) 30.2 (07/31/23) 29.9 (07/24/23) MCV 93 (11/13/23) 96 (10/16/23) 93 (09/18/23) Vitamin B-12 712 (12/12/22) BMM ASSESSMENT PTH within target. Phosphorus controlled. Calcium controlled. Bone and mineral metabolism parameters reviewed. Calcium 9.1 11/13/23 8.4 10/16/23 8.8 09/18/23 Corrected Calcium 9.5 11/13/23 8.9 10/16/23 9.3 09/18/23 Phosphorus 4.5 11/13/23 5.9 10/16/23 4.8 09/18/23 Calcium Phosphorus Product 41 11/13/23 50 10/16/23 42 09/18/23 PTH 323 09/18/23 335 06/12/23 292 04/17/23 Vitamin D, 25-OH, Total 21.3 12/12/22 Magnesium 2.0 09/18/23 2.0 06/12/23 2.1 03/22/23 Alkaline Phosphatase 107 09/18/23 91 06/12/23 129 03/22/23 Aluminum 7 12/12/22 NUTRITION ASSESSMENT Albumin not at goal. Potassium uncontrolled. Referred to privacy manager for further counseling. Patient taking protein supplements. Albumin 3.5 11/13/23 3.4 10/16/23 3.4 09/18/23 Potassium 5.6 11/13/23 5.1 10/23/23 6.6 10/16/23 eNPCR 1.15 11/13/23 1.19 10/16/23 0.82 09/18/23 TRANSPLANT STATUS COMMENT COMMENTS: Not a candidate for transplant due to co-morbid conditions PHYSICAL EXAM Exam performed. Vital Signs Reviewed. Lungs - Clear. CV - RRR. No edema. ADDITIONAL LABS WBC 8.91 (11/13/23) 7.69 (10/16/23) 8.56 (09/18/23) Hepatitis B Surface Ab 11 (12/12/22) Signed by: Gabriel Smith on 12/09/2023 at 01:34:42 PM Transcribed by: Gabriel Smith on 12/09/2023 at 01:34:41 PM documented in this encounter Plan of Treatment Not on file documented as of this encounter Visit Diagnoses Not on filedocumented in this encounter Care Teams Wire Wrapping Machine Operator Relationship Specialty Start Date End Date Tyrell Schneider MD [address] [place] [address] PCP - General 10/27/18 documented as of this encounter
--- OUTSIDE RECORDS SUMMARY | 2024-01-13 18:51 | XMS_ITS | Encounter Summary ---
Author Organization [facility] [place] [place] Address [address] [place] [address] Care Team Providers Care Cement Tester Assistant Name Role Phone Tyrell Schneider MD Primary Care Provider [phone] Encounter Details Date Type Department Care Team (Late st Contact Info) Description 12/04/2023 Orders Only [facility] [place] [address] [place] [address] Gabriel Mena MD [address] [place] [address] Social History Tobacco Use Types [...] Priority Date/Time Associated Diagnosis Comments HEMATOLOGY Routine 12/04/2023 documented in this encounter Results * (ABNORMAL) HEMATOLOGY (12/04/2023) Hemoglobin 11.3(L) 12.0 - 16.0 g/dL [facility] Hemoglobin x 3 33.9(L) 36.0 - 48.0 % [facility] 12/04/2023 12/05/2023 2:0 4 AM CDT Narrative [facility] - 12/05/2023 Unless otherwise specified, test(s) performed at: [facility], [address] [facility], [place] [address] WEDDING PHOTOGRAPHER: Eze Park M.D., Ph.D For any questions, please call customer service at FREQUENCY:OTHER Resulting Agency Comment Specimen source: Blood us Gabriel Mena MD LAB BLOOD ORDERABLES Final Re sult [facility] See order comments or contact performing lab Unknown, [place] documented in this encounter Visit Diagnoses Not on filedocumented in this encounter Care Teams Cement Tester Assistant Relationship Specialty Start Date End Date Tyrell Schneider MD [address] [place] [address] PCP - General 10/27/18 documented as of this encounter
--- OUTSIDE RECORDS SUMMARY | 2024-01-13 18:51 | XMS_ITS | Encounter Summary ---
Author Organization [facility] [place] [place] Address [address] [place] [address] Care Team Providers Care Access Registrar Name Role Phone Tyrell Schneider MD Primary Care Provider [phone] Encounter Details Date Type Department Care Team ([facility] st Contact Info) Description 10/09/2023 Treatment [facility] [place] [address] [place] [address] Ana Rosa APRN-PACKAGE WINDER [address] [facility] [address] [place] [address] Social History Tobacco Use Types Packs/Day Years Used Date Smoking Tobacco: Never Assessed Comments Unknown Sex and Gender Information Value Date Recorded Sex Assigned at Not on file Legal Sex Female 7:04 PM EDT Gender Identity Not on file Sexual Orientation Not on file documented as of this encounter Miscellaneous Notes * Dialysis Note - Ana Rosa APRN-PACKAGE WINDER - 10/09/2023 10:00 AM CDT Date: Oct 09, 2023 Patient Name: Maricruz Vanegas : 1945 Chart #: [id number] Sex: F This patient was personally seen [...] AM ) BP (sit): 184/65 AP(-) / VISUAL INSPECTOR: n/a Pulse: 49 Chairside data as of [...] Values 09/13/2023 08/16/2023 08/12/2023 Access Flow 385 [id number] Treatment Medication Orders Medication Sig Start Date End Date Heparin Sodium (Porcine) 1,000 Units/mL Systemic 2000 units IVP Every Treatment 02/15/2023 02/14/2024 Mircera 60 mcg IVP Every 2 weeks During Dialysis 09/18/2023 09/16/2024 Vitamin D (Calcitriol) Oral 0.5 mcg ORAL 3X Week During Dialysis 03/25/2023 03/20/2024 MRI SPECIALIST: Gabriel Mena MD LOCATION: [phone] SCHEDULE: -- 2nd Shift EDW: kg. DIALYZER: HD DURATION: NEEDLE SIZE: ANTICOAG: BATH: QB: ml/min QD: ml/min Subjective Tolerating dialysis well. Reports no trouble with access. 09/27/23: Stable dialysis. No new symptoms. BP still above goal. She would like to try a new medication on top of current ones. Mild edema in lower legs. Advanced Practitioner Subjective SOFTWOOD FALLER 10/09/2023: Patient seen on dialysis. Today she denies SOB, chest pain or cramping. Arm access working well. BP elevated. Leaving at EDW. Will continue to monitor weight. SOFTWOOD FALLER 09/02/2023: Spoke with patient on dialysis. Reports [...] had catheter PD catheter placed 05/2018 at [facility], removed for peritonitis 11/2022 Anemia Assessment HEMOGLOBIN [...] at goal. Intact PTH is at goal. Tapping Machine Operator Automatic will adjust binders and vitamin D per [...] on filedocumented in this encounter Care Teams Access Registrar Relationship Specialty Start Date End Date Tyrell Schneider MD [address] [place] [address] PCP - General 10/27/18 documented as of this encounter
--- OUTSIDE RECORDS SUMMARY | 2024-01-13 18:51 | XMS_ITS | Encounter Summary ---
Author Organization [facility] [place] Address [address] [facility] [address] [place] [address] Care Team Providers Care Examination Grader Name Role Phone Tyrell Schneider MD Primary Care Provider Reason for Visit * Reason Comments Med Refill Encounter Details Date Type Department Care Team (Late st Contact Info) Description 11/10/2023 Refill [facility] [place] [address] [facility] [address] [place] [address] Gabriel Mena MD [address] [place] [address] Social History Tobacco Use Types [...] - 11/11/2023 9:35 AM CDT Faxed to [facility] documented in this encounter Plan of Treatment Not on file documented as of this encounter Visit Diagnoses Not on filedocumented in this encounter Care Teams Examination Grader Relationship Specialty Start Date End Date Tyrell Schneider MD [address] [place] [address] PCP - General 10/27/18 documented as of this encounter
--- OUTSIDE RECORDS SUMMARY | 2024-01-13 18:51 | XMS_ITS | Encounter Summary ---
Author Organization [facility] [place] Address [address] [place] [address] Care Team Providers Care Senior Teller Name Role Phone Tyrell Schneider MD Primary Care Provider [phone] Encounter Details Date Type Department Care Team (Late st Contact Info) Description 10/09/2023 Orders Only [facility] [place] [address] [place] [address] Gabriel Mena MD [address] [place] [address] Social History Tobacco Use Types [...] (10/09/2023) Hemoglobin 10.3(L) 12.0 - 16.0 g/dL [facility] Hemoglobin x 3 30.9(L) 36.0 - 48.0 % [facility] 10/09/2023 10/10/2023 9:0 3 AM CDT Narrative [facility] - 10/10/2023 Unless otherwise specified, test(s) performed at: [facility], [address] [facility], [place] [address] PHARMACIST IN CHARGE: Eze Park M.D., Ph.D For any questions, please call customer service at FREQUENCY:OTHER Resulting Agency Comment Specimen source: Blood us Gabriel Mena MD LAB BLOOD ORDERABLES Final Re sult [facility] See order comments or contact performing lab Unknown, [place] documented in this encounter Visit Diagnoses Not on filedocumented in this encounter Care Teams Senior Teller Relationship Specialty Start Date End Date Tyrell Schneider MD [address] [place] [address] PCP - General 10/27/18 documented as of this encounter
--- OUTSIDE RECORDS SUMMARY | 2024-01-13 18:51 | XMS_ITS | Encounter Summary ---
Author Organization [facility] [place] Address [address] [place] [address] Care Team Providers Care Apparel Rental Clerk Name Role Phone Tyrell Schneider MD Primary Care Provider [phone] Encounter Details Date Type Department Care Team (Late st Contact Info) Description 11/27/2023 Orders Only [facility] [place] [address] [place] [address] Gabriel Mena MD [address] [place] [address] Social History Tobacco Use Types [...] x 3 32.7(L) 36.0 - 48.0 % [facility] 11/27/2023 11/28/2023 10: 18 AM CDT Narrative [facility] - 11/28/2023 Unless otherwise specified, test(s) performed at: [facility], [address] [facility] [address] COMMERCIAL LOAN MANAGER: Eze Park M.D., Ph.D For any questions, please call customer service at FREQUENCY:OTHER Resulting Agency Comment Specimen source: Blood us Gabriel Mena MD LAB BLOOD ORDERABLES Final Re sult [facility] See order comments or contact performing lab Unknown, [place] documented in this encounter Visit Diagnoses Not on filedocumented in this encounter Care Teams Apparel Rental Clerk Relationship Specialty Start Date End Date Tyrell Schneider MD [address] [place] [address] PCP - General 10/27/18 documented as of this encounter
--- OUTSIDE RECORDS SUMMARY | 2024-01-13 18:51 | XMS_ITS | Encounter Summary ---
Author Organization [facility] [place] Address [address] [place] [address] Care Team Providers Care Inspector Shells Name Role Phone Tyrell Schneider MD Primary Care Provider [phone] Encounter Details Date Type Department Care Team (Late st Contact Info) Description 11/13/2023 Orders Only [facility] [place] [address] [facility] [address] [place] [address] Gabriel Mena MD [address] [place] [address] Social History Tobacco Use Types [...] eNPCR 1.15 [facility] spKt/V Gotch 1.91 [facility] spKt/V (Daugirdas II) 1.90 [facility] nPCR_HD 1.26 [facility] PCR 48.14 [facility] eKt/V Gotch 1.53 [facility] e [place] eKt/V ([place]) 1.57 [facility] WSTDKT/V 2.6 [facility] eKdrt/V 1.53 [facility] 11/13/2023 11/13/2023 [facility] Ordering Provider LAB BLOOD ORDERABLES Final Result Performing Organization Address City/[facility]/ZIP Co de Phone Number [facility] Contact Performing lab Unknown, [place] * (ABNORMAL) HD KINETICS (11/13/2023) Pathologist [facility] % Urea Reduction 81(H) 65 - 80 % [facility] 11/13/2023 11/14/2023 6:0 0 PM CDT Narrative Resulting Agency Comment Specimen source: Plasma Gabriel Mena MD LAB BLOOD ORDERABLES Final Re sult Performing Organization Address [facility] Co de Phone Number [facility] See order comments or contact performing lab Unknown, [place] * POST CHEMISTRY (11/13/2023) Pathologist [facility] BUN Post Dialysis 13 6 - 19 mg/dL [facility] 11/13/2023 11/14/2023 6:0 0 PM CDT Narrative [facility] - 11/14/2023 Unless otherwise specified, test(s) performed at: [facility] [address] [place] [address], [place] [address] PRODUCTION BORING MACHINE OPERATOR: Eze Park M.D., Ph.D For any [...] 11/13/2023 11/14/2023 6:5 5 PM CDT Narrative [facility] - 11/14/2023 Unless otherwise specified, test(s) performed at: [facility] [address] [place] [address], [place] [address] PRODUCTION BORING MACHINE OPERATOR: Eze Park M.D., Ph.D For any questions, please call customer service at FREQUENCY:MONTHLY Resulting Agency Comment Specimen source: Serum us Gabriel Mena MD LAB BLOOD ORDERABLES Final Re sult [facility] See order comments or [...] 11/13/2023 11/14/2023 6:1 6 PM CDT Narrative [facility] - 11/14/2023 Unless otherwise specified, test(s) performed at: [facility] [address] [place] [address], [place] [address] PRODUCTION BORING MACHINE OPERATOR: Eze Park M.D., Ph.D For any questions, please call customer service at FREQUENCY:MONTHLY Resulting Agency Comment Specimen source: Blood us Gabriel Mena MD LAB BLOOD ORDERABLES Final Re sult [facility] See order comments or contact performing lab Unknown, [place] documented in this encounter Visit Diagnoses Not on filedocumented in this encounter Care Teams Inspector Shells Relationship Specialty Start Date End Date Tyrell Schneider MD [address] [place] [address] PCP - General 10/27/18 documented as of this encounter
--- OUTSIDE RECORDS SUMMARY | 2024-01-13 18:51 | XMS_ITS | Encounter Summary ---
Author Organization [facility] [place] [place] Address [address] [place] [address] Care Team Providers Care Criminal Judge Name Role Phone Tyrell Schneider MD Primary Care Provider [phone] Encounter Details Date Type Department Care Team ([facility] st Contact Info) Description 11/25/2023 Treatment [facility] [place] [address] [place] [address] Gillian Rosa APRN-PROCEDURES NURSE [address] [facility] [address] [place] [address] Social History Tobacco Use Types Packs/Day Years Used Date Smoking Tobacco: Never Assessed Comments Unknown Sex and Gender Information Value Date Recorded Sex Assigned at Not on file Legal Sex Female 7:04 PM EDT Gender Identity Not on file Sexual Orientation Not on file documented as of this encounter Miscellaneous Notes * Dialysis Note - Gillian Rosa APRN-PROCEDURES NURSE - 11/25/2023 12:00 AM CDT Patient: Maricruz Vanegas : 1945 Note Type: Dialysis Rounds-Comp Service Date: 11/25/2023 This patient was personally seen for a complete visit as part of routine monthly dialysis care for end stage renal disease. Attending Maritime Pilot: LEISA SMITH Dialysis Location: [facility] Schedule: -- Shift: 2 OVERVIEW COMMENTS: 11/25/2023: Seen on dialysis. Feeling well. No new concerns. Denies SOB, chest pain, cramping or dizziness. BP stable. AVF working well. HOME MEDICATIONS Medications reviewed. Current [facility] Outpatient Medications albuterol sulfate 2.5 [...] Pain DIALYSIS PRESCRIPTION Treatment Data Treatment Date: 12/06/2023 started at: 10:50 AM Dialysate / Machine Temp (prescribed): 37.0*C Dialysate / Machine Temp (actual): 36.8*C BFR (prescribed): 450 BFR (average delivered): 410 DFR (prescribed): Autoflow 1.5 DFR (average delivered): 650 Prescribed Time: 02:45 Actual Time: 02:42 EDW (kg): 39.0 Dialyzer: 160NRe Optiflux Dialysate: 2.0 K, 2.5 Ca, 1.0 Mg, 100 Dextrose (G2251) Sodium: 137 Bicarb: 27 Pre Dialysis Vitals Pre BP Sit: 166/51 Pre Wt (kg): 41.4 EDW Deviation (kg): 2.4 Temp: 97.5*F Post Dialysis Vitals Post BP Sit: 193/78 Post Wt (kg): 39.2 TREATMENT MEDICATIONS ORDERS Heparin Sodium (Porcine) 1,000 Units/mL Systemic 2000 units IVP Every Treatment 02/15/2023 - 02/14/2024 Mircera 75 mcg IVP Every 4 weeks During Dialysis 12/02/2023 - 11/30/2024 BP AND FLUID ASSESSMENT Acceptable blood pressure. Fluid status acceptable. EDW appropriate. Fluid status and diet discussed with patient. Post BP Sit 193/78 - 12/06/2023 165/64 [...] (12/02/23) 310 (11/29/23) ANEMIA ASSESSMENT Anemia targets met. Hemoglobin at target. Continue current ELA dose. Continue maintenance iron. Hemoglobin 11.3 (12/04/23) 10.9 (11/27/23) 12.2 (11/20/23) [...] not at goal. Potassium uncontrolled. Referred to shipyard painter for further counseling. Albumin 3.5 11/13/23 3.4 10/16/23 3.4 09/18/23 Potassium 5.6 11/13/23 5.1 10/23/23 6.6 10/16/23 eNPCR 1.15 11/13/23 1.19 10/16/23 0.82 09/18/23 PHYSICAL EXAM Exam performed. Vital Signs Reviewed. Lungs - Clear. CV - Blood pressure noted. CV - RRR. No edema. EXT - No ulcers. ADDITIONAL LABS WBC 8.91 (11/13/23) 7.69 (10/16/23) 8.56 (09/18/23) Hepatitis B Surface Ab 11 (12/12/22) Signed by: Gillian Rosa on 12/09/2023 at 10:02:38 AM Transcribed by: Gillian Rosa on 12/09/2023 at 10:02:38 AM documented in this encounter Plan of Treatment Not on file documented as of this encounter Visit Diagnoses Not on filedocumented in this encounter Care Teams Criminal Judge Relationship Specialty Start Date End Date Tyrell Schneider MD [address] [place] [address] PCP - General 10/27/18 documented as of this encounter
--- OUTSIDE RECORDS SUMMARY | 2024-01-13 18:51 | XMS_ITS | Clinical Summary ---
Author Organization [facility] Address [address] [address] Care Team Providers Care Route Contractor Name Role Phone Tyrell Schneider MD Primary Care Provider [phone] Active Problems Problem Noted Date Diagnosed Date End stage renal disease 10/22/2023 Dependence on renal dialysis 10/22/2023 Encounters Date Type Department Care Team Description 01/08/2024 Orders Only [facility] [place] [address] [place] [address] Gabriel Mena MD 01/01/2024 Orders Only [facility] [address] [place] [phone] Gabriel Mena MD 12/27/2023 Treatment [facility] [place] [address] [place] [address] Gabriel Mena MD 12/18/2023 Treatment [facility] [address] [place] [address] Gillian Rosa, PHOTONICS ENGINEERING TECHNICIAN-PARTS COUNTERMAN 12/18/2023 Orders Only [facility] [address] [place] [address] Gabriel Mena MD 12/11/2023 Orders Only [facility] [address] [place] [phone] Gabriel Mena MD 12/09/2023 Treatment [facility] [place] [address] [place] [address] Gabriel Mena MD 12/04/2023 Orders Only [facility] [address] [place] [address] Gabriel Mena MD 11/27/2023 Orders Only [facility] [address] [facility] [place] [address] Gabriel Mena MD 11/25/2023 Treatment [facility] [address] [place] [address] Gillian Rosa, PHOTONICS ENGINEERING TECHNICIAN-PARTS COUNTERMAN 11/20/2023 Orders Only [facility] [address] [facility] [place] [address] Gabriel Mena MD 11/13/2023 Orders Only [facility] [address] [place] [address] Gabriel Mena MD 11/10/2023 Refill [facility] [address] [place] [address] Gabriel Mena MD 11/08/2023 Treatment [facility] [address] [place] [address] Gillian Rosa, PHOTONICS ENGINEERING TECHNICIAN-PARTS COUNTERMAN 11/08/2023 Orders Only [facility] [address] [place] [address] Gabriel Mena MD 10/30/2023 Orders Only [facility] [address] [place] [address] Gabriel Mena MD 10/28/2023 Treatment [facility] [address] [place] [address] Gabriel Mena MD 10/23/2023 Orders Only [facility] [address] [place] [address] Gabriel Mena MD 10/16/2023 Orders Only [facility] [address] [place] [phone] Gabriel Mena MD from Last 3 Months Social History [...] Priority Date/Time Associated Diagnosis Comments HEMATOLOGY Routine 01/08/2024 HEMATOLOGY Routine 01/01/2024 [facility] LAB RESULTS Routine 12/18/2023 HD KINETICS Routine 12/18/2023 POST CHEMISTRY Routine 12/18/2023 TRACE ELEMENTS Routine 12/18/2023 SPECIAL CHEMISTRY Routine 12/18/2023 CHEMISTRY Routine 12/18/2023 HEMATOLOGY Routine 12/18/2023 IMMUNO CHEMISTRY Routine 12/18/2023 CHEMISTRY Routine 12/18/2023 HEMATOLOGY Routine 12/11/2023 HEMATOLOGY Routine 12/04/2023 HEMATOLOGY Routine 11/27/2023 HEMATOLOGY Routine 11/20/2023 SPECTRA LUCERO LAB RESULTS Routine 11/13/2023 HD KINETICS Routine 11/13/2023 POST CHEMISTRY Routine 11/13/2023 CHEMISTRY Routine 11/13/2023 HEMATOLOGY Routine 11/13/2023 HEMATOLOGY Routine 11/08/2023 HEMATOLOGY Routine 10/30/2023 CHEMISTRY Routine 10/23/2023 HEMATOLOGY Routine 10/23/2023 SPECTRA LUCERO LAB RESULTS Routine 10/16/2023 HD KINETICS Routine 10/16/2023 POST CHEMISTRY Routine 10/16/2023 HEMATOLOGY Routine 10/16/2023 CHEMISTRY Routine 10/16/2023 from Last 3 Months Results * (ABNORMAL) HEMATOLOGY (01/08/2024) Only the most recent of12 resultswithin the time period is included. Hemoglobin 10.8(L) 12.0 - 16.0 g/dL [facility] Hemoglobin x 3 32.4(L) 36.0 - 48.0 % [facility] 01/08/2024 01/09/2024 6:0 8 AM TRUCK GREASER Narrative [facility] - 01/09/2024 Unless otherwise specified, test(s) performed at: [facility], [address] [place] [address], [place] [address] WIRE REPAIRER: Eze Park M.D., Ph.D For any questions, please call customer service at FREQUENCY:OTHER Resulting Agency Comment Specimen source: Blood Gabriel Mena MD LAB BLOOD ORDERABLES Final Re sult [employer] [facility] See order comments or contact performing lab Unknown, [place] * (ABNORMAL) HD KINETICS (12/18/2023) Only the most recent of3 resultswithin the time period is included. Pathologist [facility] % Urea Reduction 82(H) 65 - 80 % [facility] 12/18/2023 12/19/2023 5:1 5 PM TRUCK GREASER Narrative Resulting Agency Comment Specimen source: Plasma Gabriel Mena MD LAB BLOOD ORDERABLES Final Re sult [employer] [facility] See order comments or contact performing lab Unknown, [place] * (ABNORMAL) SPECIAL CHEMISTRY (12/18/2023) Pathologist [facility] Vitamin B-12 536 211 - 911 pg/mL [facility] Vitamin D, 25-OH, Total 15.7(L) 30.0 - 100.0 ng/mL [facility] Comment: Please Note: Effective February 19, 2021, the methodology for this test has changed to the SIEMENS ATELLICA method 12/18/2023 12/19/2023 6:4 8 AM TRUCK GREASER Narrative Resulting Agency Comment Specimen source: Serum Gabriel Mena MD LAB BLOOD BANK TEST ORDERABLE S Final Result Performing Organization Address [facility] Co de Phone Number [employer] See order comments or contact performing lab Unknown, [place] * POST CHEMISTRY (12/18/2023) Only the most recent of3 resultswithin the time period is included. BUN Post Dialysis 13 6 - 19 mg/dL [facility] 12/18/2023 12/19/2023 5:1 5 PM TRUCK GREASER Narrative [facility] - 12/19/2023 Unless otherwise specified, test(s) performed at: [facility], [address] [place] [address], [place] [address] WIRE REPAIRER: Eze Park M.D., Ph.D For any questions, please call customer service at FREQUENCY:MONTHLY Resulting Agency Comment Specimen source: Plasma Gabriel Mena MD LAB BLOOD ORDERABLES Final Re sult Performing Organization Address [facility] de Phone Number [employer] See order comments or contact performing lab Unknown, [place] * IMMUNO CHEMISTRY (12/18/2023) Hepatitis B Surface Ab 14 mIU/mL [facility] Comment: The anti-HBs (Hepatitis B surface antibody) [...] (No. 10); 1-18. Reference Range: <10 mIU/mL Non-Immune >=10 mIU/mL Immune The magnitude of the measured result above 10 mIU/mL is not indicative of the total amount of antibody present. 12/18/2023 12/19/2023 7:4 4 AM TRUCK GREASER Narrative Resulting Agency Comment Specimen source: Plasma Gabriel Mena MD LAB BLOOD ORDERABLES Final Re sult Performing Organization Address [facility] Co de Phone Number [facility] See order comments or contact performing lab Unknown, [place] * (ABNORMAL) TRACE ELEMENTS (12/18/2023) Pathologist [facility] Aluminum 11(H) 0 - 10 mcg/L [facility] Comment: This test was developed and its performance characteristics determined by [facility]. It has not been cleared or approved by the FDA. The laboratory is regulated under CLIA as qualified to perform high complexity testing. This test is used for clinical purposes. It should not be regarded as investigational or for research. 12/18/2023 12/19/2023 6:1 2 AM TRUCK GREASER Narrative [facility] - 12/19/2023 Unless otherwise specified, test(s) performed at: [facility], [address] [place] [address], [place] [address] WIRE REPAIRER: Eze Park M.D., Ph.D For any questions, please call customer service at FREQUENCY:MONTHLY Resulting Agency Comment Specimen source: Serum us Gabriel Mena MD LAB BLOOD ORDERABLES Final [facility] Performing Organization Address [facility] de Phone Number [employer] See order comments or contact performing lab Unknown, [place] * (ABNORMAL) [facility] (12/18/2023) Only the most recent of5 resultswithin the time period is included. Pathologist [facility] BUN 71(H) 6 - 19 mg/dL [facility] Creatinine 5.96(H) 0.60 - 1.30 mg/dL [facility] BUN/Creatinine Ratio 11.9 10.0 - 20.0 [facility] Sodium 136 136 - 145 mEq/L [facility] Potassium 5.0 3.5 - 5.1 mEq/L [facility] Chloride 102 96 - 108 mEq/L [facility] Bicarbonate (CO2) 23 20 - 31 mEq/L [facility] Calcium 9.0 8.7 - 10.4 mg/dL [facility] Comment: Please note change in reference range. Corrected Calcium 9.5 8.7 - 10.4 mg/dL [facility] Comment: Corrected Calcium is not equivalent to measured Ionized Calcium. Phosphorus 6.2(H) 2.6 - 4.5 mg/dL [facility] Calcium Phosphorus Product 56(H) 0 - 54 [facility] Calcium Phosporus Product, Cor 59(H) 0 - 54 [facility] Alkaline Phosphatase 130(H) 35 - 104 U/L [facility] Albumin 3.4(L) 3.5 - 5.2 g/dL [facility] Magnesium 2.1 1.6 - 2.6 mg/dL [facility] Ferritin 1,491(H) 10 - 291 ng/mL [facility] Iron 75 30 - 160 mcg/dL [facility] UIBC 164 155 - 355 mcg/dL [facility] TIBC 239 185 - 515 mcg/dL [facility] Iron Saturation (TSat) 31 20 - 55 % [facility] 12/18/2023 12/19/2023 6:4 8 AM TRUCK GREASER Narrative [facility] - 12/19/2023 Unless otherwise specified, test(s) performed at: [facility], [address] [place] [address], [place] [address] WIRE REPAIRER: Eze Park M.D., Ph.D For any questions, please call customer service at FREQUENCY:MONTHLY Resulting Agency Comment Specimen source: Serum Gabriel Mena MD LAB BLOOD ORDERABLES Final Re sult Performing Organization Address City/[facility]/ZIP Co de Phone Number [facility] See order comments or contact performing lab Unknown, [place] * [facility] Lab Results (12/18/2023) Only the most recent of3 resultswithin the time period is included. eKt/V Gotch 1.49 [facility] e Center PCR 48.46 [facility] spKt/V Gotch 1.87 [facility] eKt/V ([place]) 1.54 [facility] eNPCR 1.16 [facility] eKdrt/V 1.49 [facility] Center nPCR_HD 1.28 [facility] WSTDKT/V 2.6 [facility] spKt/V (Daugirdas II) 1.87 [facility] Center 12/18/2023 12/18/2023 [facility] Ordering Provider LAB BLOOD ORDERABLES Final Result Performing Organization Address City/[facility]/ZIP Co de Phone Number [facility] Contact Performing lab Unknown, [place] from Last 3 Months Insurance [facility] MEDICARE Care Teams Route Contractor Relationship Specialty Start Date End Date Tyrell Schneider MD [address] [place] [address] PCP - General 10/27/18
--- OUTSIDE RECORDS SUMMARY | 2024-01-13 18:51 | XMS_ITS | Encounter Summary ---
Author Organization [facility] [place] [place] Address [address] [place] [address] Care Team Providers Care Division Superintendent Name Role Phone Tyrell Schneider MD Primary Care Provider [phone] Encounter Details Date Type Department Care Team (Late st Contact Info) Description 12/27/2023 Treatment [facility] [place] [address] [place] [address] Gabriel Smith MD [address] [place] [address] Social History Tobacco Use Types Packs/Day Years Used Date Smoking Tobacco: Never Assessed Comments Unknown Sex and Gender Information Value Date Recorded Sex Assigned at Not on file Legal Sex Female 7:04 PM EDT Gender Identity Not on file Sexual Orientation Not on file documented as of this encounter Miscellaneous Notes * Dialysis Note - Gabriel Smtih MD - 12/27/2023 12:00 AM CST Patient: Maricruz Vanegas : 1945 Note Type: Dialysis Rounds-Comp Service Date: 12/27/2023 This patient was personally seen for a complete visit as part of routine monthly dialysis care for end stage renal disease. Attending Feeder Driver: GABRIEL SMITH Dialysis Location: [facility] Schedule: Shift: 2 OVERVIEW COMMENTS: 12/27/23 : She is feeling well today. She liked being in the isolation room, but we have iso patient for a month and thus had to move her out and she was frustrated with this. Feelingok now given that it is hopefully short term. BP's have been overall better. No new symptoms. No edema. Still smoking, to scheduled with PCP to get nicotine patches again to try and quit. HOME MEDICATIONS Medications reviewed. Current [facility] Outpatient Medications albuterol sulfate 2.5 mg/3 [...] Pain DIALYSIS PRESCRIPTION Treatment Data Treatment Date: 12/27/2023 started at: 10:55 AM Dialysate / Machine Temp (prescribed): 37.0*C Dialysate / Machine Temp (actual): 36.9*C BFR (prescribed): 450 BFR (actual): 450 DFR (prescribed): Autoflow 1.5 DFR (actual): 700 Prescribed Time: 02:45 EDW (kg): 38.5 Dialyzer: 160NRe Optiflux Dialysate: 2.0 K, 2.5 Ca, 1.0 Mg, 100 Dextrose (G2251) Sodium: 137 Bicarb: 27 Pre Dialysis Vitals Pre BP Sit: 168/75 Pre Wt (kg): 40.0 EDW Deviation (kg): 1.5 Temp: 96.3*F Current Dialysis Vitals BP Sit: 107/50 AP/ORTHOPEDIC PHYSICAL THERAPIST: 216/192 Pulse: 55 TREATMENT MEDICATIONS ORDERS Heparin Sodium (Porcine) 1,000 Units/mL Systemic 2000 units IVP Every Treatment 02/15/2023 - 02/14/2024 BP AND FLUID ASSESSMENT Acceptable blood pressure. Fluid status acceptable. EDW appropriate. Post BP Sit 143/52 - 12/25/2023 160/69 - 12/23/2023 166/59 - 12/20/2023 Post Wt (kg) 38.9 - 12/25/2023 38.5 - 12/23/2023 38.5 - 12/20/2023 EDW (kg) 38.5 - 12/25/2023 39.0 - 12/23/2023 39.0 - 12/20/2023 Deviation (kg) 0.4 - 12/25/2023 -0.5 - 12/23/2023 -0.5 - 12/20/2023 ADEQUACY ASSESSMENT Target met. Prescription compliance acceptable. Missed Treatments 0 - Last 30 days 0 - Last 60 days spKt/V (Daugirdas II) 1.87 (12/18/23) 1.90 (11/13/23) 1.80 (10/16/23) eKdrt/V 1.49 (12/18/23) 1.53 (11/13/23) 1.45 (10/16/23) % Urea Reduction 82 (12/18/23) 81 (11/13/23) 77 (10/16/23) BUN 71 (12/18/23) 67 (11/13/23) 73 (10/16/23) BUN Post Dialysis 13 (12/18/23) 13 (11/13/23) 17 (10/16/23) Creatinine 5.96 (12/18/23) 6.01 (11/13/23) 7.76 (10/16/23) Bicarbonate (CO2) 23 (12/18/23) 23 (11/13/23) 19 (10/16/23) Sodium 136 (12/18/23) 138 (11/13/23) 134 (10/16/23) ACCESS ASSESSMENT Vascular access examined. AVF/AVG positive thrill/bruit. Current access is permanent and functioning well. AVFistula Standard Left Upper Arm Active (In Use) - 12/04/2022 Placed - 03/31/2018 Access Flow 514 (12/25/23) 334 (12/06/23) 328 (12/02/23) ANEMIA ASSESSMENT Anemia targets met. COMMENTS: No ELA Hemoglobin 10.8 (12/18/23) 10.7 (12/11/23) 11.3 (12/04/23) Iron Saturation (TSat) 31 (12/18/23) 35 (11/13/23) 27 (10/16/23) Ferritin 1,491 (12/18/23) 942 (09/18/23) 1,394 (06/12/23) Iron 75 (12/18/23) 83 (11/13/23) 60 (10/16/23) TIBC 239 (12/18/23) 239 (11/13/23) 226 (10/16/23) Reticulocyte Hemoglobin 29.2 (08/21/23) 30.2 (07/31/23) 29.9 (07/24/23) MCV 92 (12/18/23) 93 (11/13/23) 96 (10/16/23) Vitamin B-12 536 (12/18/23) BMM ASSESSMENT PTH within target. Hyperphosphatemia noted. Calcium controlled. Bone and mineral metabolism parameters reviewed. COMMENTS: Continue same binder Calcium 9.0 12/18/23 9.1 11/13/23 8.4 10/16/23 Corrected Calcium 9.5 12/18/23 9.5 11/13/23 8.9 10/16/23 Phosphorus 6.2 12/18/23 4.5 11/13/23 5.9 10/16/23 Calcium Phosphorus Product 56 12/18/23 41 11/13/23 50 10/16/23 PTH 366 12/18/23 323 09/18/23 335 06/12/23 Vitamin D, 25-OH, Total 15.7 12/18/23 Magnesium 2.1 12/18/23 2.0 09/18/23 2.0 06/12/23 Alkaline Phosphatase 130 12/18/23 107 09/18/23 91 06/12/23 Aluminum 11 12/18/23 NUTRITION ASSESSMENT Albumin not at goal. Potassium controlled. Referred to founder chairman and chief creative officer for further counseling. Patient taking protein supplements. Albumin 3.4 12/18/23 3.5 11/13/23 3.4 10/16/23 Potassium 5.0 12/18/23 5.6 11/13/23 5.1 10/23/23 eNPCR 1.16 12/18/23 1.15 11/13/23 1.19 10/16/23 TRANSPLANT STATUS COMMENT COMMENTS: Not a candidate for transplant due to co-morbid conditions PHYSICAL EXAM Exam performed. Vital Signs Reviewed. Lungs - Clear. CV - Blood pressure noted. CV - RRR. No edema. ADDITIONAL LABS WBC 10.25 (12/18/23) 8.91 (11/13/23) 7.69 (10/16/23) Hepatitis B Surface Ab 14 (12/18/23) Signed by: GABRIEL SMITH MD on 12/27/2023 at 01:37:04 PM Transcribed by: GABRIEL SMITH MD on 12/27/2023 at 01:37:04 PM documented in this encounter Plan of Treatment Not on file documented as of this encounter Visit Diagnoses Not on filedocumented in this encounter Care Teams Division Superintendent Relationship Specialty Start Date End Date Tyrell Schneider MD [address] [place] [address] PCP - General 10/27/18 documented as of this encounter
--- OUTSIDE RECORDS SUMMARY | 2024-01-13 18:51 | XMS_ITS | Encounter Summary ---
Author Organization [facility] [place] [place] Address [address] [place] [address] Care Team Providers Care Lubricating Machine Tender Name Role Phone Tyrell Schneider MD Primary Care Provider [phone] Encounter Details Date Type Department Care Team (Late st Contact Info) Description 11/20/2023 Orders Only [facility] [place] [address] [facility] [address] [place] [address] Gabriel Mena MD [address] [place] [address] Social History Tobacco Use Types [...] (11/20/2023) Hemoglobin 12.2 12.0 - 16.0 g/dL [facility] Hemoglobin x 3 36.6 36.0 - 48.0 % [facility] 11/20/2023 11/21/2023 3:5 3 AM CDT Narrative [facility] - 11/21/2023 Unless otherwise specified, test(s) performed at: [facility], [address] [place], [place] [address], [place] [address] NURSING INFORMATICS SPECIALIST: Eze Park M.D., Ph.D For any questions, please call customer service at FREQUENCY:OTHER Resulting Agency Comment Specimen source: Blood us Gabriel Mena MD LAB BLOOD ORDERABLES Final Re sult [facility] See order comments or contact performing lab Unknown, [place] documented in this encounter Visit Diagnoses Not on filedocumented in this encounter Care Teams Lubricating Machine Tender Relationship Specialty Start Date End Date Tyrell Schneider MD [address] [place] [address] PCP - General 10/27/18 documented as of this encounter
--- OUTSIDE RECORDS SUMMARY | 2024-01-13 18:51 | XMS_ITS | Encounter Summary ---
Author Organization [facility] [place] [place] Address [address] [place] [address] Care Team Providers Care Women'S Lacrosse Coach Name Role Phone Tyrell Schneider MD Primary Care Provider [phone] Encounter Details Date Type Department Care Team (Late st Contact Info) Description 10/16/2023 Orders Only [facility] [place] [address] [facility] [address] [place] [address] Gabriel Mena MD [address] [place] [address] Social History Tobacco Use Types [...] eKt/V (Tattersall) 1.49 [facility] eNPCR 1.19 [facility] eKt/V Gotch 1.45 [facility] eKdrt/V 1.45 [facility] spKt/V Gotch 1.81 [facility] ge [place] WSTDKT/V 1.7 [facility] spKt/V (Daugirdas II) 1.80 [facility] nPCR_HD 1.32 [facility] PCR 50.00 [facility] 10/16/2023 10/16/2023 Lucero Ordering Provider LAB BLOOD ORDERABLES Final Result [facility] Contact Performing lab Unknown, [place] * HD KINETICS (10/16/2023) Pathologist [facility] % Urea Reduction 77 65 - 80 % [facility] 10/16/2023 10/18/2023 1:4 9 PM CDT Narrative Resulting Agency Comment Specimen source: Plasma Gabriel Mena MD LAB BLOOD ORDERABLES Final Re sult Performing Organization Address [facility] Co de Phone Number [facility] See order comments or contact performing lab Unknown, [place] * POST CHEMISTRY (10/16/2023) Pathologist [facility] BUN Post Dialysis 17 6 - 19 mg/dL [facility] 10/16/2023 10/18/2023 1:4 9 PM CDT Narrative [facility] - 10/18/2023 Unless otherwise specified, test(s) performed at: [facility], [address] [place] [address], [place] [address] CLINICAL RESOURCE MANAGER: Eze Park M.D., Ph.D For any questions, please call customer service at FREQUENCY:MONTHLY Resulting Agency Comment Specimen source: Plasma Gabriel Mena MD LAB BLOOD ORDERABLES Final Re sult [facility] [employer] [facility] See order comments or contact performing [...] 10/16/2023 10/18/2023 3:2 4 PM CDT Narrative [facility] - 10/18/2023 Unless otherwise specified, test(s) performed at: [facility], [address] [place] [address], [place] [address] CLINICAL RESOURCE MANAGER: Eze Park M.D., Ph.D For any questions, please call customer service at FREQUENCY:MONTHLY Resulting Agency Comment Specimen source: Blood us Gabriel Mena MD LAB BLOOD ORDERABLES Final Re sult [facility] See order comments or contact performing [...] 10/18/2023 Unless otherwise specified, test(s) performed at: [facility], [address] [place] [address], [place] [address] CLINICAL RESOURCE MANAGER: Eze Park M.D., Ph.D For any questions, please call customer service at FREQUENCY:MONTHLY Resulting Agency Comment Specimen source: Serum us Gabriel Mena MD LAB BLOOD ORDERABLES Final Re sult [facility] See order comments or contact performing lab Unknown, [place] documented in this encounter Visit Diagnoses Not on filedocumented in this encounter Care Teams Women'S Lacrosse Coach Relationship Specialty Start Date End Date Tyrell Schneider MD [address] [place] [address] PCP - General 10/27/18 documented as of this encounter
--- OUTSIDE RECORDS SUMMARY | 2024-01-13 18:51 | XMS_ITS | Encounter Summary ---
Author Organization [facility] [place] Address [address] [place] [address] Care Team Providers Care Test Boring Crew Chief Name Role Phone Tyrell Schneider MD Primary Care Provider [phone] Encounter Details Date Type Department Care Team (Late st Contact Info) Description 01/01/2024 Orders Only [facility] [place] [address] [facility] [address] [place] [address] Gabriel Mena MD [address] [place] [address] Social History Tobacco Use Types [...] Priority Date/Time Associated Diagnosis Comments HEMATOLOGY Routine 01/01/2024 documented in this encounter Results * (ABNORMAL) HEMATOLOGY (01/01/2024) Hemoglobin 11.0(L) 12.0 - 16.0 g/dL [facility] Hemoglobin x 3 33.0(L) 36.0 - 48.0 % [facility] 01/01/2024 01/02/2024 5:5 6 AM DAIRY TRUCK DRIVER Narrative [facility] - 01/02/2024 Unless otherwise specified, test(s) performed at: [facility], [address] [facility], [place] [address] QUALITY ASSURANCE INTERN: Eze Park M.D., Ph.D For any questions, please call customer service at FREQUENCY:OTHER Resulting Agency Comment Specimen source: Blood us Gabriel Mena MD LAB BLOOD ORDERABLES Final Re sult [facility] See order comments or contact performing lab Unknown, [place] documented in this encounter Visit Diagnoses Not on filedocumented in this encounter Care Teams Test Boring Crew Chief Relationship Specialty Start Date End Date Tyrell Schneider MD [address] [place], [place] [id number] PCP - General 10/27/18 documented as of this encounter
--- OUTSIDE RECORDS SUMMARY | 2024-01-13 18:51 | XMS_ITS | Encounter Summary ---
Author Organization [facility] [place] [place] Address [address] [place] [address] Care Team Providers Care Flanging Roll Operator Name Role Phone Tyrell Schneider MD Primary Care Provider [phone] Encounter Details Date Type Department Care Team (Late st Contact Info) Description 10/28/2023 Treatment [facility] [place] [address] [place] [address] Gabriel Mena MD [address] [place] [address] Social History Tobacco Use Types Packs/Day Years [...] Date: Oct 28, 2023 Patient Name: Maricruz Vaengas : 1945 Chart #: [id number] Sex: F This patient was personally seen [...] PM ) BP (sit): 170/60 AP(-) / FRONT OFFICE ADMINISTRATOR: 208/225 Pulse: 58 Chairside data as of [...] 3 Values 10/25/2023 09/13/2023 08/16/2023 Access Flow [id number] Treatment Medication Orders Medication Sig Start Date End Date Heparin Sodium (Porcine) 1,000 Units/mL Systemic 2000 units IVP Every Treatment 02/15/2023 02/14/2024 Iron Sucrose (Venofer) 100 mg IVP 3X Week During Dialysis 10/21/2023 10/30/2023 Mircera 50 mcg IVP Every 2 weeks During Dialysis 10/28/2023 10/26/2024 Vitamin D (Calcitriol) Oral 0.5 mcg ORAL 3X Week During Dialysis 03/25/2023 03/20/2024 PEST CONTROLLER: Gabriel Mena MD LOCATION: [phone] SCHEDULE: -W- 2nd Shift EDW: kg. DIALYZER: [...] with stable access flow. Advanced Practitioner Subjective SENIOR MECHANICAL DESIGN ENGINEER 10/09/2023: Patient seen on dialysis. Today she denies SOB, chest pain or cramping. Arm access working well. BP elevated. Leaving at EDW. Will continue to monitor weight. SENIOR MECHANICAL DESIGN ENGINEER 09/02/2023: Spoke with patient on dialysis. Reports [...] directed every four hours as needed 04/21/2018 Shaina Low Dose Aspirin (aspirin) 81 mg tablet,delayed [...] [place] [facility] for peritonitis 11/2022 [...] above goal. Intact PTH is at goal. Assistant Basketball Coach will adjust binders and vitamin D per [...] on filedocumented in this encounter Care Teams Flanging Roll Operator Relationship Specialty Start Date End Date Tyrell Schneider MD [address] [place] [address] PCP - General 10/27/18 documented as of this encounter
--- OUTSIDE RECORDS SUMMARY | 2024-01-13 18:51 | XMS_ITS | Encounter Summary ---
Author Organization [facility] [place] Address [address] [place] [address] Care Team Providers Care Tassel Clipper Name Role Phone Tyrell Schneider MD Primary Care Provider [phone] Encounter Details Date Type Department Care Team (Late st Contact Info) Description 12/11/2023 Orders Only [facility] [place] [address] [place] [address] Gabriel Mena MD [address] [place] [address] Social History Tobacco Use Types [...] Priority Date/Time Associated Diagnosis Comments HEMATOLOGY Routine 12/11/2023 documented in this encounter Results * (ABNORMAL) HEMATOLOGY (12/11/2023) Hemoglobin 10.7(L) 12.0 - 16.0 g/dL [facility] Hemoglobin x 3 32.1(L) 36.0 - 48.0 % [facility] 12/11/2023 12/12/2023 5:2 7 AM CDT Narrative [facility] - 12/12/2023 Unless otherwise specified, test(s) performed at: [facility], [address], [place] [address] OPERATIONS SPECIALISTS: Eze Park M.D., Ph.D For any questions, please call customer service at FREQUENCY:OTHER Resulting Agency Comment Specimen source: Blood us Gabriel Mena MD LAB BLOOD ORDERABLES Final Re sult [facility] See order comments or contact performing lab Unknown, [place] documented in this encounter Visit Diagnoses Not on filedocumented in this encounter Care Teams Tassel Clipper Relationship Specialty Start Date End Date Tyrell Schneider MD [address] [place] [address] PCP - General 10/27/18 documented as of this encounter
--- OUTSIDE RECORDS SUMMARY | 2024-01-13 18:51 | XMS_ITS | Encounter Summary ---
Author Organization [facility] [place] Address [address] [place] [address] Care Team Providers Care Agriculturist Name Role Phone Tyrell Schneider MD Primary Care Provider [phone] Encounter Details Date Type Department Care Team (Late st Contact Info) Description 11/08/2023 Orders Only [facility] [place] [address] [place] [address] Gabriel Mena MD [address] [place] [address] Social History Tobacco Use Types [...] (11/08/2023) Hemoglobin 11.7(L) 12.0 - 16.0 g/dL [facility] Hemoglobin x 3 35.1(L) 36.0 - 48.0 % [facility] 11/08/2023 11/09/2023 2:5 5 AM CDT Narrative [facility] - 11/09/2023 Unless otherwise specified, test(s) performed at: [facility], [address] [facility], [place] [address] EQUIPMENT OPERATING ENGINEER: Eze Park M.D., Ph.D For any questions, please call customer service at FREQUENCY:OTHER Resulting Agency Comment Specimen source: Blood us Gabriel Mena MD LAB BLOOD ORDERABLES Final Re sult [facility] See order comments or contact performing lab Unknown, [place] documented in this encounter Visit Diagnoses Not on filedocumented in this encounter Care Teams Agriculturist Relationship Specialty Start Date End Date Tyrell Schneider MD [address] [place] [address] PCP - General 10/27/18 documented as of this encounter
--- OUTSIDE RECORDS SUMMARY | 2024-01-13 18:51 | XMS_ITS | Encounter Summary ---
Author Organization [facility] [place] Address [address] [place] [address] Care Team Providers Care Patient Attendant Name Role Phone Tyrell Schneider MD Primary Care Provider [phone] Encounter Details Date Type Department Care Team (Late st Contact Info) Description 10/23/2023 Orders Only [facility] [place] [address] [place] [address] Gabriel Mena MD [address] [place] [address] Social History Tobacco Use Types [...] (10/23/2023) Potassium 5.1 3.5 - 5.1 mEq/L [facility] 10/23/2023 10/24/2023 5:1 8 AM CDT Narrative [facility] - 10/24/2023 Unless otherwise specified, test(s) performed at: [facility], [address] [place] [address] HOSPITALITY DIRECTOR: Eze Park M.D., Ph.D For any questions, please call customer service at FREQUENCY:OTHER Resulting Agency Comment Specimen source: Serum Gabriel Mena MD LAB BLOOD ORDERABLES Final Re sult Performing Organization Address [facility] de Phone Number [facility] See order comments or contact performing lab Unknown, [place] * (ABNORMAL) HEMATOLOGY (10/23/2023) Hemoglobin 10.8(L) 12.0 - 16.0 g/dL [facility] Hemoglobin x 3 32.4(L) 36.0 - 48.0 % [facility] 10/23/2023 10/24/2023 5:2 8 AM CDT Narrative [facility] - 10/24/2023 Unless otherwise specified, test(s) performed at: [facility], [address] [place] [address] HOSPITALITY DIRECTOR: Eze Park M.D., Ph.D For any questions, please call customer service at FREQUENCY:OTHER Resulting Agency Comment Specimen source: Blood Gabriel Mena MD LAB BLOOD ORDERABLES Final Re sult Performing Organization Address [facility] de Phone Number [facility] See order comments or contact performing lab Unknown, [place] documented in this encounter Visit Diagnoses Not on filedocumented in this encounter Care Teams Patient Attendant Relationship Specialty Start Date End Date Tyrell Schneider MD [address] [facility] [address] PCP - General 10/27/18 documented as of this encounter
--- OUTSIDE RECORDS SUMMARY | 2024-01-13 18:51 | XMS_ITS | Encounter Summary ---
Author Organization [facility] [place] [place] Address [address] [place] [address] Care Team Providers Care Distribution Associate Name Role Phone Tyrell Schneider MD Primary Care Provider [phone] Encounter Details Date Type Department Care Team ([facility] st Contact Info) Description 11/08/2023 Treatment [facility] [place] [address] [place] [address] Ana Rosa APRN-OFFICE ADMINISTRATION [address] [facility] [address] [place] [address] Social History Tobacco Use Types Packs/Day Years Used Date Smoking Tobacco: Never Assessed Comments Unknown Sex and Gender Information Value Date Recorded Sex Assigned at Not on file Legal Sex Female 7:04 PM EDT Gender Identity Not on file Sexual Orientation Not on file documented as of this encounter Miscellaneous Notes * Dialysis Note - Ana Rosa APRN-OFFICE ADMINISTRATION - 11/08/2023 3:30 PM CDT Date: Nov 08, 2023 Patient Name: Maricruz Vanegas : 1945 Chart #: [id number] Sex: F This patient was personally seen [...] 3 Values 10/25/2023 09/13/2023 08/16/2023 Access Flow [id number] Treatment Medication Orders Medication Sig Start Date End Date Heparin Sodium (Porcine) 1,000 Units/mL Systemic 2000 units IVP Every Treatment 02/15/2023 02/14/2024 Vitamin D (Calcitriol) Oral 0.5 mcg ORAL 3X Week During Dialysis 03/25/2023 03/20/2024 BIG DATA HADOOP DEVELOPER: Gabriel Mena MD LOCATION: [phone] SCHEDULE: -W- 2nd Shift EDW: kg. DIALYZER: [...] with stable access flow. Advanced Practitioner Subjective SUPERVISOR SEWING DEPARTMENT 11/08/2023: Spoke with patient on dialysis. She [...] had catheter PD catheter placed 05/2018 at [facility] [place], removed for peritonitis 11/2022 Anemia Assessment HEMOGLOBIN [...] above goal. Intact PTH is at goal. Inside Account Representative will adjust binders and vitamin D per [...] on filedocumented in this encounter Care Teams Distribution Associate Relationship Specialty Start Date End Date Tyrell Schneider MD [address] [place] [address] PCP - General 10/27/18 documented as of this encounter
--- OUTSIDE RECORDS SUMMARY | 2024-01-13 18:51 | XMS_ITS | Encounter Summary ---
Author Organization [facility] [place] Address [address] [place] [address] Care Team Providers Care Candles Pourer Name Role Phone Tyrell Schneider MD Primary Care Provider [phone] Encounter Details Date Type Department Care Team (Late st Contact Info) Description 01/08/2024 Orders Only [facility] [place] [address] [facility] [address] [place] [address] Gabriel Mena MD [address] [place] [address] Social History Tobacco Use Types [...] Date/Time Associated Diagnosis Comments HEMATOLOGY Routine 01/08/2024 documented in this encounter Results * (ABNORMAL) HEMATOLOGY (01/08/2024) Hemoglobin 10.8(L) 12.0 - 16.0 g/dL [facility] Hemoglobin x 3 32.4(L) 36.0 - 48.0 % [facility] 01/08/2024 01/09/2024 6:0 8 AM CLIPPER MACHINE Narrative [facility] - 01/09/2024 Unless otherwise specified, test(s) performed at: [facility], [address] [facility], [place] [address] NURSING HOME ADMISSIONS DIRECTOR: Eze Park M.D., Ph.D For any questions, please call customer service at FREQUENCY:OTHER Resulting Agency Comment Specimen source: Blood us Gabriel Mena MD LAB BLOOD ORDERABLES Final Re sult [facility] See order comments or contact performing lab Unknown, [place] documented in this encounter Visit Diagnoses Not on filedocumented in this encounter Care Teams Candles Pourer Relationship Specialty Start Date End Date Tyrell Schneider MD [address] [place], [place] [id number] PCP - General 10/27/18 documented as of this encounter
--- OUTSIDE RECORDS SUMMARY | 2024-01-13 18:51 | XMS_ITS | Encounter Summary ---
Author Organization [facility] [place] Address [address] [facility] [address] [place] [address] Care Team Providers Care Bait Packer Name Role Phone Tyrell Schneider MD Primary Care Provider Encounter Details Date Type Department Care Team (Late st Contact Info) Description 12/18/2023 Orders Only [facility] [address] [facility] [address] [place] [address] Gabriel Mena MD [address] [place] [address] Social History Tobacco Use Types [...] Date/Time Associated Diagnosis Comments HD KINETICS Routine 12/18/2023 SPECIAL CHEMISTRY Routine 12/18/2023 POST CHEMISTRY Routine 12/18/2023 IMMUNO CHEMISTRY Routine 12/18/2023 TRACE ELEMENTS Routine 12/18/2023 HEMATOLOGY Routine 12/18/2023 CHEMISTRY Routine 12/18/2023 CHEMISTRY Routine 12/18/2023 [facility] LAB RESULTS Routine 12/18/2023 documented in this encounter Results * [facility] Lab Results (12/18/2023) Pathologist [facility] eKt/V Gotch 1.49 [facility] e Center PCR 48.46 [facility] spKt/V Gotch 1.87 [facility] eKt/V ([place]) 1.54 [facility] eNPCR 1.16 [facility] eKdrt/V 1.49 [facility] nPCR_HD 1.28 [facility] WSTDKT/V 2.6 [facility] spKt/V (Daugirdas II) 1.87 [facility] 12/18/2023 12/18/2023 [facility] Ordering Provider LAB BLOOD ORDERABLES Final Result [facility] Contact Performing lab Unknown, [place] * (ABNORMAL) HD KINETICS (12/18/2023) Pathologist [facility] % Urea Reduction 82(H) 65 - 80 % [facility] 12/18/2023 12/19/2023 5:1 5 PM OYSTER GRADER Narrative Resulting Agency Comment Specimen source: Plasma Gabriel Mena MD LAB BLOOD ORDERABLES Final Re sult [facility] See order comments or contact performing lab Unknown, [place] * POST CHEMISTRY (12/18/2023) Pathologist [facility] BUN Post Dialysis 13 6 - 19 mg/dL [facility] 12/18/2023 12/19/2023 5:1 5 PM OYSTER GRADER Narrative [facility] - 12/19/2023 Unless otherwise specified, test(s) performed at: [facility], [address] [place] [address], [place] [address] BARN MANAGER: Eze Park M.D., Ph.D For any questions, please call customer service at FREQUENCY:MONTHLY Resulting Agency Comment Specimen source: Plasma Gabriel Mena MD LAB BLOOD ORDERABLES Final Re sult Performing Organization Address [facility] Co de Phone Number [facility] See order comments or contact performing lab Unknown, [place] * (ABNORMAL) TRACE ELEMENTS (12/18/2023) Aluminum 11(H) 0 - 10 mcg/L [facility] Comment: This test was developed and its performance characteristics determined by [facility]. It has not been cleared or approved by the FDA. The laboratory is regulated under CLIA as qualified to perform high complexity testing. This test is used for clinical purposes. It should not be regarded as investigational or for research. 12/18/2023 12/19/2023 6:1 2 AM OYSTER GRADER Narrative [facility] - 12/19/2023 Unless otherwise specified, test(s) performed at: [facility], [address] [place] [address], [place] [address] BARN MANAGER: Eze Park M.D., Ph.D For any questions, please call customer service at FREQUENCY:MONTHLY Resulting Agency Comment Specimen source: Serum Gabriel Mena MD LAB BLOOD ORDERABLES Final Re sult Performing Organization Address [facility] de Phone Number [facility] See order comments or contact performing lab Unknown, [place] * (ABNORMAL) SPECIAL CHEMISTRY (12/18/2023) Pathologist [facility] Vitamin B-12 536 211 - 911 pg/mL [facility] Vitamin D, 25-OH, Total 15.7(L) 30.0 - 100.0 ng/mL [facility] Comment: Please Note: Effective February 19, 2021, the methodology for this test has changed to the SIEMENS ATELLICA method 12/18/2023 12/19/2023 6:4 8 AM OYSTER GRADER Narrative Resulting Agency Comment Specimen source: Serum Gabriel Mena MD LAB BLOOD BANK TEST ORDERABLE S Final Result Performing Organization Address City/[facility]/ZIP Co de Phone Number [facility] See order comments or contact performing lab Unknown, [place] * (ABNORMAL) [facility] (12/18/2023) BUN 71(H) 6 - 19 mg/dL [facility] [...] [facility] 12/18/2023 12/19/2023 6:4 8 AM OYSTER GRADER Narrative [facility] - 12/19/2023 Unless otherwise specified, test(s) performed at: [facility], [address] [place] [address], [place] [address] BARN MANAGER: Eze Park M.D., Ph.D For any questions, please call customer service at FREQUENCY:MONTHLY Resulting Agency Comment Specimen source: Serum us Gabriel Mena MD LAB BLOOD ORDERABLES Final Re sult [facility] See order comments or contact performing lab Unknown, [place] * (ABNORMAL) HEMATOLOGY (12/18/2023) Neutrophils 82.5(H) 40.0 - 75.0 % [facility] Lymphocytes Relative 5.7(L) 19.0 - 48.0 % [facility] Monocytes 4.8 3.0 - 10.0 % [facility] Eosinophils Relative 4.8 0.0 - 7.0 % [facility] Basophils Relative 0.3 0.0 - 1.5 % [facility] JUANITO 1.9 0.0 - 4.0 % [facility] WBC 10.25 4.80 - 10.80 1000/mcL [facility] RBC 3.98(L) 4.20 - 5.40 mill/mcL [facility] Hematocrit 36.5(L) 37.0 - 47.0 % [facility] MCV 92 80 - 100 fl [facility] MCH 27.3 27.0 - 31.0 pg [facility] MCHC 29.8(L) 30.0 - 36.0 g/dL [facility] RDW 20.5(H) 11.5 - 14.5 % [facility] Hemoglobin 10.8(L) 12.0 - 16.0 g/dL [facility] Hemoglobin x 3 32.4(L) 36.0 - 48.0 % [facility] 12/18/2023 12/19/2023 3:0 2 PM OYSTER GRADER Narrative [facility] - 12/19/2023 Unless otherwise specified, test(s) performed at: [facility], [address] [place] [address], [place] [address] BARN MANAGER: Eze Park M.D., Ph.D For any questions, please call customer service at FREQUENCY:MONTHLY Resulting Agency Comment Specimen source: Blood us Gabriel Mena MD LAB BLOOD ORDERABLES Final Re sult [facility] See order comments or contact performing lab Unknown, [place] * IMMUNO CHEMISTRY (12/18/2023) Hepatitis B Surface Ab 14 mIU/mL [facility] Comment: The anti-HBs (Hepatitis B surface antibody) [...] antibody present. 12/18/2023 12/19/2023 7:4 4 AM OYSTER GRADER Narrative Resulting Agency Comment Specimen source: Plasma Gabriel Mena MD LAB BLOOD ORDERABLES Final Re sult Performing Organization Address City/[facility] Co de Phone Number [facility] See order comments or contact performing lab Unknown, [place] * (ABNORMAL) [facility] Chemistry (12/18/2023) PTH 366(H) 16 - 80 pg/mL [facility] 12/18/2023 12/19/2023 7:4 4 AM OYSTER GRADER Narrative [facility] - 12/19/2023 Unless otherwise specified, test(s) performed at: [facility], [address] [place] [address] BARN MANAGER: Eze Park M.D., Ph.D For any questions, please call customer service at FREQUENCY:MONTHLY Resulting Agency Comment Specimen source: Plasma Gabriel Mena MD LAB BLOOD ORDERABLES Final Re sult Performing Organization Address City/[facility]/ZIP Co de Phone Number [facility] See order comments or contact performing lab Unknown, [place] documented in this encounter Visit Diagnoses Not on filedocumented in this encounter Care Teams Bait Packer Relationship Specialty Start Date End Date Tyrell Schneider MD [address] [place] [address] PCP - General 10/27/18 documented as of this encounter
--- OUTSIDE RECORDS SUMMARY | 2024-01-13 18:51 | XMS_ITS | Encounter Summary ---
Author Organization [facility] Address [address] [place] [address] Care Team Providers Care Otolaryngologist Name Role Phone Tyrell Schneider MD Primary Care Provider [phone] Encounter Details Date Type Department Care Team (Late st Contact Info) Description 10/30/2023 Orders Only [facility] [place] [address] [place] [address] Gabriel Mena MD [address] [place] [address] Social History Tobacco Use Types [...] (10/30/2023) Hemoglobin 11.6(L) 12.0 - 16.0 g/dL [facility] Hemoglobin x 3 34.8(L) 36.0 - 48.0 % [facility] 10/30/2023 10/31/2023 4:0 3 AM CDT Narrative [facility] - 10/31/2023 Unless otherwise specified, test(s) performed at: [facility], [address] [facility], [place] [address] LEAD QUALITY TECHNICIAN: Eze Park M.D., Ph.D For any questions, please call customer service at FREQUENCY:OTHER Resulting Agency Comment Specimen source: Blood us Gabriel Mena MD LAB BLOOD ORDERABLES Final Re sult [facility] See order comments or contact performing lab Unknown, [place] documented in this encounter Visit Diagnoses Not on filedocumented in this encounter Care Teams Otolaryngologist Relationship Specialty Start Date End Date Tyrell Schneider MD [address] [place] [address] PCP - General 10/27/18 documented as of this encounter
--- OUTSIDE RECORDS SUMMARY | 2024-01-13 18:51 | XMS_ITS ---
Author Name [facility] Address [address] [place] [address] Phone [phone] Organization [facility] e, NA DOCUMENT DISCLAIMER Multiple document versions may exist, please be sure you review the latest version. The information in the [facility] Continuity of Care Document represents a summary [...] Stat Clonidine HCl PRN 0.1 mg Oral JanuaryJanuary 29, 2024 Active Heparin Sodium (Porcine) 1,000 Units/mL Systemic Bolus, Every Treatment, Total treatment minutes 165 2000 units Intravenous - push February 15, 2023 February 14, 2024 Active Mircera During Dialysis, Every 2 weeks 30 mcg Intravenous - push December 30, 2023 December 28, 2024 Active Home Medications Medication Instructions Dosage Route Start [...] 2 tablet ORAL January 18, 2023 Active levofloxacin 500 mg ORAL Octob er 2023 Active Miralax 17 gram Take dissolved [...] Sign Value Date / Time Blood Pressure-sitting 230/84 mmHg January 13, 2024 10:55 AM Blood Pressure-standing 194/75 mmHg January 13, 2024 10:55 AM Heart Rate 66 beats per minute January 13, 2024 10:55 AM Respiratory Rate 16 breaths per minute January 13, 2024 10:55 AM Temperature 97.8 deg. F January 12 10:55 AM Weight Vital Sign Value Date / Time Estimated Dry Weight 37.5 kg December 11:59 PM Pre-Dialysis 38.90 kg January 12 10:55 AM Post-Dialysis 37.30 kg January 12 10:55 AM Other Other Value Date / Time Height 152.4 cm February 14, 2022 12:00 AM Body Mass Index 16.88 kg/m2 December 19 04:08 PM LAB RESULTS Hematology Result Type Result Value Relevant Referen ce Range Interpretation Date WBC (No Diff) 9.23 1000/mcL 4.80 - 10.80 1000/mcL - July 17, 2023 Neutrophils 81.7 % 40.0 - 75.0 % High July 16 024 Transferrin Sat. (Calc) 20 % 20 - 55 % - July 17, 2023 TIBC 233 mcg/dL 185 - 515 mcg/dL - July 17, 2023 UIBC (Calc) 186 mcg/dL 155 - 355 mcg/dL - July Neutrophils 81.3 % 40.0 - 75.0 % High August 13 024 TIBC 230 mcg/dL 185 - 515 mcg/dL - August 14, 2023 UIBC (Calc) 185 mcg/dL 155 - 355 mcg/dL - August Transferrin Sat. (Calc) 20 % 20 - 55 % - August 14, 2023 WBC (No Diff) 7.98 1000/mcL 4.80 - 10.80 1000/mcL - August 14, 2023 TIBC 243 mcg/dL 185 - 515 mcg/dL - September UIBC (Calc) 197 mcg/dL 155 - 355 mcg/dL - September 18, 2023 Transferrin Sat. (Calc) 19 % 20 - 55 % Low September 18, 2023 Ferritin 942 ng/mL 10 - 291 ng/mL High September 18, 2023 WBC (No Diff) 8.56 1000/mcL 4.80 - 10.80 1000/mcL - September 18, 2023 Neutrophils 82.8 % 40.0 - 75.0 % High September 18, 2023 Transferrin Sat. (Calc) 27 % 20 - 55 % - October 16, 2023 Neutrophils 82.0 % 40.0 - 75.0 % [...] 31.5 % 36.0 - 48.0 % Low Septemb er 2023 TIBC 226 mcg/dL 185 - 515 mcg/dL - Septembe r 2023 RDW 20.4 % 11.5 - 14.5 % High October MCHC 28.3 g/dL 30.0 - 36.0 g/dL Low Septembe r 2023 UIBC (Calc) 166 mcg/dL 155 - 355 mcg/dL - Septemb 2023 Iron 60 mcg/dL 30 - 160 mcg/dL - October 16, 2023 Hemoglobin x 3 32.4 % 36.0 - 48.0 % Low Septemb er 2023 Hemoglobin x 3 34.8 % 36.0 - 48.0 % Low Septemb er 2023 Hemoglobin x 3 35.1 % 36.0 - 48.0 % Low Septemb er 2023 Monocytes 4.8 % 3.0 - 10.0 % - November 13, 2023 Lymphocytes 5.9 % 19.0 - 48.0 % Low November Neutrophils 81.7 % 40.0 - 75.0 % High November Hemoglobin x 3 35.7 % 36.0 - 48.0 % Low November 13, 2023 RDW 20.8 % 11.5 - 14.5 % High November 13, 2023 MCHC 30.3 g/dL 30.0 - 36.0 g/dL - November 13, 2023 MCH 28.2 pg 27.0 - 31.0 pg - November WBC (No Diff) 8.91 1000/mcL 4.80 - 10.80 1000/mcL - November 13, 2023 JUANITO 1.9 % 0.0 - 4.0 % - November 12 024 Basophils 0.7 % 0.0 - 1.5 % - November 12 024 Eosinophil 5.1 % 0.0 - 7.0 % - November 12 Iron 83 mcg/dL 30 - 160 mcg/dL - November UIBC (Calc) 156 mcg/dL 155 - 355 mcg/dL - November 13, 2023 TIBC 239 mcg/dL 185 - 515 mcg/dL - November 13, 2023 Transferrin Sat. (Calc) 35 % 20 - 55 % - November 13, 2023 Hemoglobin x 3 36.6 % 36.0 - 48.0 % - November 20, 2023 Hemoglobin x 3 32.7 % 36.0 - 48.0 % Low November 27, 2023 Hemoglobin x 3 33.9 % 36.0 - 48.0 % Low December 04, 2023 Hemoglobin x 3 32.1 % 36.0 - 48.0 % Low December 11, 2023 HCT 36.5 % 37.0 - 47.0 % Low December RBC 3.98 mill/mcL 4.20 - 5.40 mill/mcL Low December 18, 2023 Iron 75 mcg/dL 30 - 160 mcg/dL - December 18, 2023 MCH 27.3 pg 27.0 - 31.0 pg - December UIBC (Calc) 164 mcg/dL 155 - 355 mcg/dL - 2023 TIBC 239 mcg/dL 185 - 515 mcg/dL - December 18, 2023 RDW 20.5 % 11.5 - 14.5 % High December Transferrin Sat. (Calc) 31 % 20 - 55 % - December 17 MCHC 29.8 g/dL 30.0 - 36.0 g/dL Low December 18, 2023 Ferritin 1491 ng/mL 10 - 291 ng/mL High December Basophils 0.3 % 0.0 - 1.5 % - December 18, 2023 Eosinophil 4.8 % 0.0 - 7.0 % - December 18, 2023 WBC (No Diff) 10.25 1000/mcL 4.80 - 10.80 1000/mcL - December 18, 2023 JUANITO 1.9 % 0.0 - 4.0 % - December 18, 2023 Lymphocytes 5.7 % 19.0 - 48.0 % Low December Neutrophils 82.5 % 40.0 - 75.0 % High December Monocytes 4.8 % 3.0 - 10.0 % - December 18, 2023 HGB 10.8 g/dL 12.0 - 16.0 g/dL Low December 18, 2023 Hemoglobin x 3 32.4 % 36.0 - 48.0 % Low 2023 HGB 10.8 g/dL 12.0 - 16.0 g/dL Low December 25, 2023 Hemoglobin x 3 32.4 % 36.0 - 48.0 % Low 2023 Hemoglobin x 3 33.0 % 36.0 - 48.0 % Low 2023 HGB 11.0 g/dL 12.0 - 16.0 g/dL Low January 01, 2024 HGB 10.8 g/dL 12.0 - 16.0 g/dL Low January 08, 2024 Hemoglobin x 3 32.4 % 36.0 - 48.0 % Low 2023 Metabolic/Renal Result Type Result Value Relevant Referen ce Range Interpretation Date Chloride 105 mEq/L 96 - 108 mEq/L - October 16, 2023 Potassium 6.6 mEq/L 3.5 - 5.1 mEq/L High October 16, 2023 Creatinine, Serum 7.76 mg/dL 0.60 - 1.30 mg/dL High October 16, 2023 BUN 73 mg/dL 6 - 19 mg/dL High October Sodium 134 mEq/L 136 - 145 mEq/L Low October 16, 2023 BUN/Creat Ratio 9.4 10.0 - 20.0 Low Septemb2023 Bicarbonate 19 mEq/L 20 - 31 mEq/L [...] - 19 mg/dL - November 13, 2023 BUN, Post 13 mg/dL 6 - 19 mg/dL - December 18, 2023 URR, Calc 82 % 65 - 80 % High December 17, 024 Vitamin B12 536 pg/mL 211 - 911 pg/mL - December 18, 2023 BUN 71 mg/dL 6 - 19 mg/dL High December 18, 2023 Creatinine, Serum 5.96 mg/dL 0.60 - 1.30 mg/dL High December 18, 2023 BUN/Creat Ratio 11.9 10.0 - 20.0 - December 18, 2023 Sodium 136 mEq/L 136 - 145 mEq/L - December 18, 2023 Potassium 5.0 mEq/L 3.5 - 5.1 mEq/L - December 18, 2023 Chloride 102 mEq/L 96 - 108 mEq/L - December Bicarbonate 23 mEq/L 20 - 31 mEq/L - December HD Adequacy Result Type Result Value Relevant Referen ce Range Interpretation Date Krt/V 0.00 No Reference Ran ge Provided - July 17, 2023 Krt/V 0.00 No Reference Ran ge Provided - August 14, 2023 Krt/V 0.00 No Reference Ran ge Provided - September 18, 2023 wstdKt/V without residual 1.7 No Reference Range Provided - October 16, 2023 eKt/V ([place]) 1.49 No Reference Range Provided - October 16, 2023 Krt/V 0.00 No Reference Ran ge Provided - October 16, 2023 wstdKt/V 1.7 No Reference Ran ge Provided - October 16, 2023 spKt/V Got 1.81 No Reference Ran ge Provided - [...] residual 2.6 No Reference Range Provided - December 18, 2023 eKt/V ([place]) 1.54 No Reference Range Provided - December 18, 2023 spKt/V (Daugirdas II) 1.87 No Reference Range Provided - December 18, 2023 wstdKt/V, residual 0.0 No Reference Range Provided - December 18, 2023 spKt/V Gotch 1.87 No Reference Ran ge Provided - December 18, 2023 Krt/V 0.00 No Reference Ran ge Provided - December 18, 2023 wstdKt/V 2.6 No Reference Ran ge Provided - December 18, 2023 Bone/Mineral Result Type Result Value Relevant Referen ce Range Interpretation Date Magnesium 2.1 mg/dL 1.6 - 2.6 mg/dL - March 22, 2023 Magnesium 2.0 mg/dL 1.6 - 2.6 mg/dL - June 11 024 Magnesium 2.0 mg/dL 1.6 - 2.6 mg/dL - September PTH-Intact, Plasma 323 pg/mL 16 - 80 pg/mL High Sep Phosphorus 5.9 mg/dL 2.6 - 4.5 mg/dL High October 16, 2023 Calcium, Total 8.4 mg/dL 8.7 - 10.4 mg/dL Low Oct Ca x P Product 50 0 - 54 - October 16, 2023 Corrected Ca x P Product 53 0 - 54 - October 15, Calcium, Total 9.1 mg/dL 8.7 - 10.4 mg/dL - 2023 Phosphorus 4.5 mg/dL 2.6 - 4.5 mg/dL - November Ca x P Product 41 0 - 54 - November Corrected Ca x P Product 43 0 - 54 - November 13, 2023 Magnesium 2.1 mg/dL 1.6 - 2.6 mg/dL - December 18, 2023 Vitamin D 25 Hydroxy 15.7 ng/mL 30.0 - 100.0 ng/mL Low December 18, 2023 Corrected Ca x P Product 59 0 - 54 High December 17 Calcium, Total 9.0 mg/dL 8.7 - 10.4 mg/dL - 2023 Phosphorus 6.2 mg/dL 2.6 - 4.5 mg/dL High December 18, 2023 Ca x P Product 56 0 - 54 High December Alkaline Phosphatase 130 U/L 35 - 104 U/L High 2023 PTH-Intact, Plasma 366 pg/mL 16 - 80 pg/mL High Dec Liver/Nutrition Result Type Result Value Relevant Reference Range Interpre tation Date eNPCR 1.19 No Reference Ran ge Provided - October 16, 2023 Albumin (BCG) 3.4 g/dL 3.5 - 5.2 g/dL Low Septemb er 2023 eNPCR 1.15 No Reference Ran ge Provided - November 13, 2023 Albumin (BCG) 3.5 g/dL 3.5 - 5.2 g/dL - November 13, 2023 eNPCR 1.16 No Reference Ran ge Provided - December 18, 2023 Albumin (BCG) 3.4 g/dL 3.5 - 5.2 g/dL Low Novembe r 2023 Trace Elements Result Type Result Value Relevant Reference Range Interpre tation Date Aluminum 11 mcg/L 0 - 10 mcg/L High December 18, 2023 Infectious Diseases Result Type Result Value Relevant Referen ce Range Interpretation Date Hep B Surface Ab (anti-HBs) 14 mIU/mL No Reference Range Provided - December 18, 2023 Hep B Surface Ag (HBsAg) Negative No Reference Range Provided - December 25, 2023 DIALYSIS PRESCRIPTION Conventional Hemodialysis Data Element Value Order Date/Time January 08, 2024 Frequency 3X Week Treatment Days MonWedFri Dialyzer 160NRe Optiflux Treatment Time (Total Minutes) 165 min Blood Flow Rate (mL/min) 450 mL/min Dialysate Flow Rate Autoflow 1.5 Estimated Dry Weight 37.5 kg Dialysate Concentrate 2.0 K, 2.5 Ca, [...] (mL/min) Dialysate Dialyzer Dialysis Access Meds Admin Novem 2023 Weight 37.90 kg Weight 37.10 kg 02:45:00 440 2.0 K, 2.5 Ca, 1.0 Mg, 100 Dextrose (G2251) 160nre Optifl ux Blood Pressure-sitting 179/62 mmHg Blood Pressure-sit ting 143/63 mmHg Blood Pressure-standing 190/66 mmHg Blood Pressure-st anding 154/54 mmHg Heart Rate 60 beats per minute Heart Rate 65 beats per minute Respiratory Rate 16 breaths per minute Respiratory Rate 18 breaths per minute Temperature 96.2 deg. F Temperature 97.8 deg. F January 10, 2024 Weight 38.60 kg Weight 37.20 kg 02:49:00 400 2.0 K, 2.5 Ca, 1.0 Mg, 100 Dextrose (G2251) 160nre Optiflux Hemodialysis-AV Fistula-Standard, Left Upper Arm, Brachial Artery to Cephalic Vein Access Placed on March 31, 2018 Heparin Sodium (Porcine) 1,000 Units/mL Systemic; 2000units,Intravenous - push Blood Pressure-sitting 212/73 mmHg Blood Pressure-sit ting 177/67 mmHg Blood Pressure-standing 221/86 mmHg Blood Pressure-st anding 168/64 mmHg Heart Rate 64 beats per minute Heart Rate 65 beats per minute Respiratory Rate 16 breaths per minute Respiratory Rate 16 breaths per minute Temperature 98.0 deg. F Temperature 97.2 deg. F January 13, 2024 Weight 38.90 kg Weight 37.30 kg 02:43:00 450 2.0 K, 2.5 Ca, 1.0 Mg, 100 Dextrose (G2251) 160nre [facility] Hemodialysis-AV Fistula-Standard, Left Upper Arm, Brachial Artery to Cephalic Vein Access Placed on March 31, 2018 Clonidine HCl; 0.1mg,Oral Heparin Sodium (Porcine) 1,000 Units/mL Systemic; 2000units,Intravenous - push Mircera; 30mcg,Intravenous - push Blood Pressure-sitting 223/77 mmHg Blood Pressure-sit ting 230/84 mmHg Blood Pressure-standing 212/65 mmHg Blood Pressure-st anding 194/75 mmHg Heart Rate 59 beats per minute Heart Rate 66 beats per minute Respiratory Rate 16 breaths per minute Respiratory Rate 16 breaths per minute Temperature 96.3 deg. F Temperature 97.8 deg. F
--- OUTSIDE RECORDS SUMMARY | 2024-01-13 18:51 | XMS_ITS | Encounter Summary ---
Author Organization [facility] Address [address] [place] [address] Care Team Providers Care Cottrell Operator Name Role Phone Tyrell Schneider MD Primary Care Provider [phone] Encounter Details Date Type Department Care Team ([facility] st Contact Info) Description 12/18/2023 Treatment [facility] [address] [place] [address] Ana Rosa APRN-FLIGHT RADIO OFFICER [address] [place] [address] Social History Tobacco Use Types Packs/Day Years Used Date Smoking Tobacco: Never Assessed Comments Unknown Sex and Gender Information Value Date Recorded Sex Assigned at Not on file Legal Sex Female 7:04 PM EDT Gender Identity Not on file Sexual Orientation Not on file documented as of this encounter Miscellaneous Notes * Dialysis Note - Ana Rosa APRN-FLIGHT RADIO OFFICER - 12/18/2023 12:00 AM 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 Attending Coding Educator: LEISA SMITH Dialysis Location: [facility] Schedule: Shift: 2 OVERVIEW Patient is stable. Patient has no complaints. 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 She is happy to be dialyzing in iso room. Reported no new dialysis concerns. BP has been elevated. Arm HOME MEDICATIONS [facility] albuterol sulfate 2.5 mg/3 mL [...] Temp (actual): 36.9*C BFR (prescribed): 450 BFR (average delivered): 450 DFR (prescribed): Autoflow 1.5 DFR (average delivered): 700 Prescribed Time: 02:45 Actual Time: 02:49 EDW (kg): 38.5 Dialyzer: 160NRe Optiflux Dialysate: 2.0 K, 2.5 Ca, 1.0 Mg, 100 Dextrose (G2251) Sodium: 137 Bicarb: 27 Pre Dialysis Vitals Pre BP Sit: 168/75 Pre Wt (kg): 40.0 EDW Deviation (kg): 1.5 Temp: 96.3*F Post Dialysis Vitals Post BP Sit: 161/65 Post Wt (kg): 39.1 TREATMENT MEDICATIONS ORDERS Heparin Sodium (Porcine) 1,000 Units/mL Systemic 2000 units IVP Every Treatment 02/15/2023 - 02/14/2024 BP AND FLUID ASSESSMENT High blood pressure. Fluid status and diet discussed with patient. COMMENTS: High BP on dialysis Post BP Sit 161/65 - 12/27/2023 143/52 - 12/25/2023 160/69 - 12/23/2023 Post Wt (kg) 39.1 - 12/27/2023 38.9 - 12/25/2023 38.5 - 12/23/2023 EDW (kg) 38.5 - 12/27/2023 38.5 - 12/25/2023 39.0 - 12/23/2023 Deviation (kg) 0.6 - 12/27/2023 0.4 - 12/25/2023 -0.5 - 12/23/2023 ADEQUACY ASSESSMENT Target met. Prescription compliance acceptable. [...] ASSESSMENT Vascular access examined. AVF/AVG positive thrill/bruit. AVFistula Standard Left Upper Arm Active (In Use) - 12/04/2022 Placed - 03/31/2018 Access Flow 514 (12/25/23) 334 (12/06/23) 328 (12/02/23) ANEMIA ASSESSMENT Anemia targets met. Hemoglobin at target. Continue current ELA dose. Continue maintenance iron. COMMENTS: No ELA Hemoglobin 10.8 (12/18/23) 10.7 [...] BMM ASSESSMENT PTH within target. Hyperphosphatemia noted. Counseled regarding dietary compliance. Referred to business analyst manager for further counseling. Calcium controlled. Bone and mineral metabolism parameters reviewed. Calcium 9.0 12/18/23 9.1 11/13/23 8.4 10/16/23 [...] ASSESSMENT Albumin not at goal. Potassium controlled. Albumin 3.4 12/18/23 3.5 11/13/23 3.4 10/16/23 Potassium 5.0 12/18/23 5.6 11/13/23 5.1 10/23/23 eNPCR 1.16 12/18/23 1.15 11/13/23 1.19 10/16/23 TRANSPLANT STATUS COMMENT COMMENTS: Not a candidate for transplant due to co-morbid conditions PHYSICAL EXAM Exam performed. Vital Signs Reviewed. Lungs - Clear. CV - Blood pressure noted. CV - RRR. No edema. EXT - No ulcers. ADDITIONAL LABS WBC 10.25 (12/18/23) 8.91 (11/13/23) 7.69 (10/16/23) Hepatitis B Surface Ab 14 (12/18/23) ADDITIONAL COMMENT COMMENTS: Continue plan of care Signed by: ANA ROSA APRN-CNP on 12/27/2023 at 04:07:27 PM Transcribed by: ANA ROSA APRN-CNP on 12/18/2023 at 12:51:57 PM documented in this encounter Plan of Treatment Not on file documented as of this encounter Visit Diagnoses Not on filedocumented in this encounter Care Teams Cottrell Operator Relationship Specialty Start Date End Date Tyrell Schneider MD [address] [place] [address] PCP - General 10/27/18 documented as of this encounter
--- OUTSIDE RECORDS SUMMARY | 2024-01-13 18:51 | XMS_ITS | Clinical Summary ---
Author Organization [facility] Address [address] [place] [address] Care Team Providers Care Pocket Maker Name Role Phone Unavailable Primary Care Provider Unavailabl e Source Comments Patient records contain information from all sites at [facility]. For routine questions regarding patient records, call [phone] during business hours, M-F 8:00 AM - 5:00 PM Central Time. Record requests for emergency care only can be directed to [phone] at any time.[facility] Allergies Active Allergy Reactions Criticality Noted [...] Itching 01/09/2010 itching Niacin Itching 05/13/2006 itch [place] Rash 05/16/2010 [place] 2-Fid-Rzs-Fish Oil Other (see comments) 01/09/2010 itching Pioglitazone Rash 10/11/2020 Itchy rash Pravastatin Other (see comments),Myalgia 01/22/2012 Simvastatin Other (see comments) 04/04/2016 Leg pain Tolerating every other day. Tetracycline Other (see comments) 05/09/2015 bumps Medications fluorometholon e (FML) 0.1 % ophthalmic suspension Administer 1 drop into the left eye daily. 07/13/19 17 Active acetaminophen (TYLENOL) 325 mg tablet Take 1 tablet by mouth. 05/26/19 21 Active albuterol 2.5 mg /3 mL nebulizer solution Inhale 1 vial every 4 (four) hours. 04/21/19 19 Active amLODIPine (NORVASC) 10 mg tablet Take 1 tablet by mouth. 05/09/19 16 Active aspirin 81 mg capsule Daily Active blood sugar diagnostic (Contour Test Strips) strips TEST TWO TIMES A DAY . 01/15/20 15 Active blood-glucose meter kit Dispense glucose meter, test strips and lancets covered by the patient insurance. Test 2 times per day. 01/01/20 13 Active calcitRIOL (ROCALTROL) 0.25 mcg capsule Daily Active calcium acetate,phosph at bind, (PHOSLO) 667 mg (169 mg calcium) capsule TAKE 1 CAPSULE BY MOUTH THREE TIMES DAILY WITH MEALS DIRECTED 06/17/19 19 Active celecoxib (CeleBREX) 200 mg capsule Take 1 capsule by mouth 2 (two) times a day. 05/14/19 16 Active cetirizine (ZyrTEC) 10 mg tablet Take 1 tablet by mouth daily. 11/01/19 17 Active cholecalcifero l, vitamin D3, 25 mcg (1,000 Unit) tablet Take 1 tablet by mouth 2 (two) times a day. 05/09/19 16 Active clobetasoL (TEMOVATE) 0.05 % cream Apply topically. 10/12/19 21 Active cloNIDine (CATAPRES) 0.2 mg tablet Take 1 tablet by mouth 2 (two) times a day. 05/09/19 16 Active furosemide (LASIX) 40 mg tablet Take 1 tablet by mouth every morning. 02/16/19 21 Active gabapentin (NEURONTIN) 100 mg capsule 500mg oral at bedtime. 04/04/19 22 Active glipiZIDE (GLUCOTROL XL) 10 mg 24 hr tablet Take 20 mg by mouth. 04/21/19 19 Active hyoscyamine (ANASPAZ,LEVSI N) 0.125 mg tablet Take by mouth. 02/04/20 17 Active ipratropium-al buteroL (DUONEB) 0.5-2.5 mg/3 mL nebulizer solution Inhale 3 mL every 6 (six) hours as needed. 12/14/19 21 Active labetaloL (NORMODYNE) 300 mg tablet Take 1 tablet by mouth. 04/21/19 19 Active lidocaine-pril ocaine (EMLA) 2.5-2.5 % cream APPLY SMALL AMOUNT TO ACCESS SITE (AVF) 1 TO 2 HOURS BEFORE DIALYSIS. COVER WITH OCCLUSIVE DRESSING (SARAN WRAP) 05/02/19 19 Active metFORMIN (GLUCOPHAGE) 1,000 mg tablet Take 1 tablet by mouth 2 (two) times a day. 05/09/19 16 Active white petrolatum-min eral oiL (Refresh P.M.) 57.3-42.5 % ointment 0.25-0.5 inches daily as needed. 04/18/19 17 Active nicotine polacrilex (NICORETTE) 4 mg gum Take 4 mg by mouth. 05/12/19 21 Active oxyCODONE (ROXICODONE) 5 mg immediate release tablet One oral twice daily as needed. 04/18/19 22 Active polyethylene glycol (MIRALAX) 17 gram/dose oral powder Take 1 packet by mouth. 04/21/19 19 Active prednisoLONE acetate (PRED FORTE) 1 % ophthalmic suspension INSTILL 1 DROP INTO THE LEFT EYE ONCE DAILY 03/12/19 17 Active repaglinide (PRANDIN) 1 mg tablet Take 1 tablet by mouth. 10/12/19 21 Active sennosides (SENOKOT) 8.6 mg tablet Take by mouth. 04/21/19 19 Active simvastatin (ZOCOR) 20 mg tablet Every 48 Hours 05/09/19 16 Active sorbitoL 70 % solution 30 mL. 04/21/19 21 Active triamcinolone (KENALOG) 0.1 % cream Apply topically. 01/25/20 21 Active nicotine (NICODERM CQ) 14 mg/24 hr patch Apply 14 mg patch daily for four to six weeks, then taper to 7 mg for two to six weeks until off. 14 patch 3 09/01/19 22 Active nicotine (Nicoderm CQ) 7 mg/24 hr patch Apply 21 mg patch daily for 4-10 weeks, taper to 14 mg patch for 4-10 weeks, then taper to 7 mg patch for 4-10 weeks until off. 14 patch 5 11/25/19 22 Active nicotine (Nicoderm CQ) 14 mg/24 hr patch Apply 21 mg patch daily for 4-10 weeks, taper to 14 mg patch for 4-10 weeks, then taper to 7 mg patch for 4-[address] on file. 14 patch 5 11/25/19 22 Active nicotine (Nicoderm CQ) 21 mg/24 hr patch Apply 21 mg patch daily for 4-10 weeks, taper to 14 mg patch for 4-10 weeks, then taper to 7 mg patch for 4-[address] on file. 14 patch 5 11/25/19 22 Active neomycin-polym yxin B-dexameth (MAXITROL) 3.5 mg/g-10,000 unit/g-0.1 % ophthalmic ointment Instill a 1/4 inch ribbon into the left eye four times daily* 09/25/19 23 Active mupirocin (BACTROBAN) 2 % ointment APPLY TO PD EXIT SITE DAILY* 08/22/19 23 Active moxifloxacin (VIGAMOX) 0.5 % ophthalmic solution Administer 1 drop into the left eye. 07/19/19 23 Active polyvinyl alcohol (Artificial Tears, polyvin alc,) 1.4 % ophthalmic solution Administer 1 drop into both eyes every hour while awake. 15 mL 11 07/04/19 24 Active dextran 70-hypromellos e, PF, (GENTEAL TEARS) 0.1-0.3 % ophthalmic solution Administer 1 drop into both eyes every hour while awake. 36 each 11 07/04/19 24 Active erythromycin (Romycin) 5 mg/gram (0.5 %) ophthalmic ointment Apply to left eye 4 (four) times a day 3.5 g 12/16/19 24 Active erythromycin (ROMYCIN) 5 mg/gram (0.5 %) ophthalmic ointment Apply to left eye 4 (four) times a day. 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 Med Refill 11/06/2023 Refill Division of General Internal Medicine in [place], [place] [address] [place] [address] Daniel Ingram M.D. Med Refill from Last [...] on file Legal Sex Female 10:27 PM ACCESSIONER Gender Identity Female 01/08/2022 2:47 PM ACCESSIONER Sexual Orientation Straight 01/08/2022 2: 47 PM ACCESSIONER Last Filed Vital Signs Vital Sign Reading Time Taken Comments Blood Pressure 146/69 04/25/2021 8:56 AM CDT Pulse 62 04/25/2021 8:56 AM CDT Temperature 35.8 C (96.4 F) 04/25/2021 1:32 PM CDT Respiratory Rate 16 05/14/2015 10:0 [...] Monitoring (PHQ-9) 1945 Diabetic Office Visit with Foot Exam 1945 Hepatitis C Screening 1945 Office Visit for Blood Pressure Check / Re-check 1945 Urine Albumin 1945 Hepatitis B Vaccines (3 of 3 - Risk 3-dose series) 11/29/2000 10/04/2000, 04/11/2000 Zoster Vaccines (2 of 3) 07/10/2012 05/15/2012 DTaP,Tdap,and Td Vaccines (2 - Td or Tdap) 05/30/2020 05/30/2010 RSV vaccine - (32-36 weeks) or 60+ years (1 - 1-dose 75+ series) 08/30/2022 Depression Monitoring (PHQ-9 for quality tracking) 02/11/2023 Fall Risk Screen (Annual) 02/11/2023 Hemoglobin A1C 01/09/2024 07/09/2023, 10/0 05/2022, 04/10/2022, Additional history exists Creatinine Level (Kidney Function Test) 02/22/2024 02/21/2023, 02/20/2023, 02/19/2023, Additional history exists Potassium Level 02/22/2024 02/21/2023, 02/11, 02/19/2023, Additional history exists Sodium Level 02/22/2024 02/21/2023, 02/11, 02/19/2023, Additional history exists Dilated Eye Exam 08/21/2024 08/22/2023, , 07/04/2023, Additional history exists Mammogram Discontinued 01/01/2019, 01/01/2019 Colonoscopy Discontinued 07/04/2020 Colorectal Cancer Screening Discontinued Pneumococcal vaccine (65+ years) Completed 04/10/2022, 06/22/2014, 12/31/2012, Additional history exists COVID-19 Vaccine Completed 11/22/2023, , 10/25/2021, Additional history exists Influenza Vaccine Completed 11/22/2023, , 10/25/2021, Additional history exists CT Colonography Discontinued Cologuard Discontinued FIT Discontinued IPV Vaccines Aged Out No longer eligi ble based on patient's age to complete this topic Medical Devices Implanted Type Area Servicer Travel Trailers Device Identifier Shelf Expiration Date Model / Serial / Lot Cornea - Orozco [id number] Implanted:Qty: 1 on 05/13/2015 Ocular (Eye) Implant Other/Legacy - See Implant Description [place] [employer] Description:Device Manufactu rer - [place] [employer] Eye [employer]. Body Location - Other. Left. Device Status Text - [id number]. Cornea - [id number] [id number] Implanted:Qty: 1 on 06/10/2015 Ocular (Eye) Implant Other/Legacy - See Implant Description [place] [employer] Eye [employer] Description:Device Manufactu rer - [place] [employer] Eye Bank. Body Location - Other. Left. Device Status Text - [id number]. Procedures Procedure Name Priority Date/Time Associated Diagnosis Comments OPHTHALMOLOGY IMAGE EXAM Routine 08/22/2023 12:00 AM CDT HEMOGLOBIN A1C, B Routine 05/13/2015 11: 31 PM CDT CREATININE WITH EGFR, S/P Routine 05/11/2015 11:42 AM CDT from Last 3 Months or Most Recently Relevant to Health Maintenance Results * Eyes Color-Ophthalmology Image Exam (08/22/2023 12:00 AM CDT) Narrative IIMS - 08/22/2023 2:17 PM CDT This [...] A1c, B 8.1(H) 4.0 - 6.0 % [facility] 05/13/2015 11:3 1 PM CDT 05/13/2015 11:31 PM CDT Frantz Lee M.D. LAB BLOOD ADD-ON Final Resu lt Performing Organization Address City/[facility]/ZIP Co de Phone Number [facility] [address] * (ABNORMAL) Creatinine with Estimated GFR (MDRD) (05/11/2015 11:42 AM CDT) Creatinine 1.3(H) 0.6 - 1.1 MG/DL [facility] eGFR Non-Black/Afric an Finnish 41(L) >60 ML/MIN/BSA [facility] eGFR-Black/Afri can Finnish 49(L) >60 ML/MIN/BSA [facility] 05/11/2015 11:4 2 AM CDT 05/11/2015 11:42 AM CDT Frantz Lee M.D. LAB BLOOD ADD-ON Final Resu lt Performing Organization Address City/[facility]/ZIP Co de Phone Number [facility] [address] from Last 3 Months or Most Recently Relevant to Health Maintenance Insurance [facility] MEDICARE
--- OUTSIDE RECORDS SUMMARY | 2024-01-13 18:52 | XMS_ITS | Referral Summary ---
Author Organization [facility] Address [address] [place] [address] Care Team Providers Care Supplier Quality Engineering Manager Name Role Phone Unavailable Primary Care Provider Unavailabl e Source Comments Patient records contain information from all sites at [facility]. For routine questions regarding patient records, call [phone] during business hours, M-F 8:00 AM - 5:00 PM Central Time. Record requests for emergency care only can be directed to [phone] at any time.[facility] Encounters Date Type Department Care Team Description 12/14/2023 Refill Department of Ophthalmology in [place], [place] [address] [place] [address] Luma Solis M.D., M.S. Med Refill 11/06/2023 Refill Division of General Internal Medicine in [place], [place] [address] [place] [address] Daniel Ingram M.D. Med Refill from Last [...] Itching 01/09/2010 itching Niacin Itching 05/13/2006 itch [place] Rash 05/16/2010 [place] 4-Ykv-Uoq-Fish Oil Other (see comments) 01/09/2010 itching Pioglitazone [...] eyes every hour while awake. 36 each 07/04/19 24 Active erythromycin (Romycin) 5 mg/gram [...] (04/25/2021): Added automatically from request for surgery [id number] Major Depressive Disorder, Recurrent, Unspecifie d 03/22/2021 [...] on file Legal Sex Female 10:27 PM VISUAL DISPLAY MANAGER Gender Identity Female 01/08/2022 2:47 PM VISUAL DISPLAY MANAGER Sexual Orientation Straight 01/08/2022 2: 47 PM VISUAL DISPLAY MANAGER Last Filed Vital Signs Vital Sign Reading Time Taken Comments Blood Pressure 146/69 04/25/2021 8:56 AM CDT Pulse 62 04/25/2021 8:56 AM CDT Temperature 35.8 C (96.4 F) 04/25/2021 1:32 PM CDT Respiratory Rate 16 05/14/2015 10:0 0 AM CDT Value from [employer]. Oxygen Saturation - - Inhaled Oxygen Concentration - - Weight 49.2 kg (108 lb 5.7 oz) 04/25/2021 1:32 PM CDT Height 152.9 cm (5' 0.2) 04/25/2021 1: 32 PM CDT Body Mass Index 21.02 04/25/2021 1:32 PM CDT Plan of Treatment Not on file Medical Devices Implanted Type Area Edger Saw Operator Device Identifier Shelf Expiration Date Model / Serial / Lot Cornea - Orozco [id number] Implanted:Qty: 1 on 05/13/2015 Ocular (Eye) Implant Other/Legacy - See Implant Description [place] [employer] [facility] Description:Device Manufactu rer - [place] [employer] Eye [employer]. Body Location - Other. Left. Device Status Text - [id number]. Cornea - Orozco [id number] Implanted:Qty: 1 on 06/10/2015 Ocular (Eye) Implant Other/Legacy - See Implant Description [place] [employer] Description:Device Manufactu rer - [place] [employer] Eye [employer]. Body Location - Other. Left. Device Status Text - [id number]. Procedures Procedure Name Priority Date/Time Associated Diagnosis Comments OPHTHALMOLOGY IMAGE EXAM Routine 08/22/2023 12:00 AM CDT HEMOGLOBIN A1C, B Routine 05/13/2015 11: 31 PM CDT CREATININE WITH EGFR, S/P Routine 05/11/2015 11:42 AM CDT from Last 3 Months or Most Recently Relevant to Health Maintenance Results * Eyes Color-Ophthalmology Image Exam (08/22/2023 12:00 AM CDT) Narrative IIIL - 08/22/2023 2:17 PM CDT This order [...] A1c, B 8.1(H) 4.0 - 6.0 % [facility] 05/13/2015 11:3 1 PM CDT 05/13/2015 11:31 PM CDT Frantz Lee M.D. LAB BLOOD ADD-ON Final Resu lt Performing Organization Address City/[facility] Co de Phone Number [facility] [address] * (ABNORMAL) Creatinine with Estimated GFR (MDRD) (05/11/2015 11:42 AM CDT) Creatinine 1.3(H) 0.6 - 1.1 MG/DL [facility] eGFR Non-Black/Afric an Citizen Of [place] 41(L) >60 ML/MIN/BSA [facility] eGFR-Black/Afri can Citizen Of [place] 49(L) >60 ML/MIN/BSA [facility] 05/11/2015 11:4 2 AM CDT 05/11/2015 11:42 AM CDT Frantz Lee M.D. LAB BLOOD ADD-ON Final Resu lt Performing Organization Address City/[facility]/ZIP Co de Phone Number [facility] [address] from Last 3 Months or Most Recently Relevant to Health Maintenance Insurance [facility] MEDICARE
--- OUTSIDE RECORDS SUMMARY | 2024-01-13 18:52 | XMS_ITS | Encounter Summary ---
Author Organization [facility] Address [address] [place] [address] Care Team Providers Care Solid Waste Truck Driver Name Role Phone Unavailable Primary Care Provider Unavailabl e Encounter Details Date Type Department Care Team (Late st Contact Info) Description 05/14/2015 Historical Ophthalmology [facility] Maricruz Garcia M.D. Social History Tobacco Use Types Packs/Day Years Used Date Smoking Tobacco: Never Assessed Comments Unknown Sex and Gender Information Value Date Recorded Sex Assigned at Not on file Legal Sex Female 10:27 PM CYTOLOGY LABORATORY MANAGER Gender Identity Female 01/08/2022 2:47 PM CYTOLOGY LABORATORY MANAGER Sexual Orientation Straight 01/08/2022 2: 47 PM CYTOLOGY LABORATORY MANAGER documented as of this encounter Progress [...] washout 05/13/15 CDM Reports - EYEGEN Id: [id number] Status: Fnl documented in this encounter Plan of Treatment Not on file documented as of this encounter Visit Diagnoses Not on filedocumented in this encounter
--- OUTSIDE RECORDS SUMMARY | 2024-01-13 18:52 | XMS_ITS | Encounter Summary ---
Author Organization [facility] Address [address] [place] [address] Care Team Providers Care Supplier Quality Engineer Name Role Phone Unavailable Primary Care Provider Unavailabl e Encounter Details Date Type Department Care Team (Late st Contact Info) Description 09/26/2015 Historical Ophthalmology [facility] Deann Colby M.D. [address] [place] [phone] Social History Tobacco Use Types Packs/Day Years Used Date Smoking Tobacco: Never Assessed Comments Unknown Sex and Gender Information Value Date Recorded Sex Assigned at Not on file Legal Sex Female 10:27 PM DIVISION TOLL WIRE CHIEF Gender Identity Female 01/08/2022 2:47 PM DIVISION TOLL WIRE CHIEF Sexual Orientation Straight 01/08/2022 2: 47 PM DIVISION TOLL WIRE CHIEF documented as of this encounter Progress Notes [...] intra-op intravitreal vancomycin and ceftazadime Seen with EXPENDITURE REQUISITION CLERK today. 26 Sep 2015: Corneal edema continues [...] vision, worsening concerns. Must come in when EXPENDITURE REQUISITION CLERK is here. Use fluorescein strips only, not [...] right eye CDM Reports - EYEGEN Id: [id number] Status: Fnl documented in this encounter Plan of Treatment Not on file documented as of this encounter Visit Diagnoses Not on filedocumented in this encounter
--- OUTSIDE RECORDS SUMMARY | 2024-01-13 18:52 | XMS_ITS ---
Author Organization [facility] Address [address] [place] [address] Care Team Providers Care Coat Tailor Name Role Phone Unavailable Unavailable Unavailable Surgery Details Not on file Complications Check Surgery Details section. Procedure Estimated Blood Loss Check Surgery Details section. Procedure Findings Check Surgery Details section. Procedure Specimens Taken Check Surgery Details section.
--- OUTSIDE RECORDS SUMMARY | 2024-01-13 18:52 | XMS_ITS | Encounter Summary ---
Author Organization [facility] Address [address] [place] [address] Care Team Providers Care Weft Straightener Name Role Phone Unavailable Primary Care Provider Unavailabl e Encounter Details Date Type Department Care Team (Late st Contact Info) Description 05/24/2015 Historical Ophthalmology [facility] Eva Heard M.D. [address] [facility] [address] [place] [address] Social History Tobacco Use Types Packs/Day Years Used Date Smoking Tobacco: Never Assessed Comments Unknown Sex and Gender Information Value Date Recorded Sex Assigned at Not on file Legal Sex Female 10:27 PM TAX RECORD CLERK Gender Identity Female 01/08/2022 2:47 PM TAX RECORD CLERK Sexual Orientation Straight 01/08/2022 2: 47 PM TAX RECORD CLERK documented as of this encounter Progress Notes [...] Saturday. s/p intra-op subconj Dex Seen with PUBLIC WELFARE WORKER today Plan: Alternate every 2 hours with [...] diabetic retinopathy, right eye CDM Reports - [employer] Id: [id number] Status: Fnl documented in this encounter Plan of Treatment Not on file documented as of this encounter Visit Diagnoses Not on filedocumented in this encounter
--- OUTSIDE RECORDS SUMMARY | 2024-01-13 18:52 | XMS_ITS | Encounter Summary ---
Author Organization [facility] Address [address] [place] [address] Care Team Providers Care Chief Arson Division Name Role Phone Unavailable Primary Care Provider Unavailabl e Encounter Details Date Type Department Care Team (Late st Contact Info) Description 01/23/2016 Historical Ophthalmology RST OPH Deann Colby M.D. [address] [place] [phone] Social History Tobacco Use Types Packs/Day Years Used Date Smoking Tobacco: Never Assessed Comments Unknown Sex and Gender Information Value Date Recorded Sex Assigned at Not on file Legal Sex Female 10:27 PM TECHNICIAN SUPPORT ENGINEER Gender Identity Female 01/08/2022 2:47 PM TECHNICIAN SUPPORT ENGINEER Sexual Orientation Straight 01/08/2022 2: 47 PM TECHNICIAN SUPPORT ENGINEER documented as of this encounter Progress Notes [...] vision, worsening concerns. Must come in when LOCKSTITCH ZIPPER SETTER is here (preferably as COS staff). Use [...] #4 Floaters, right eye CDM Reports - EYESnapflow Id: [id number] Status: Fnl documented in this encounter Plan of Treatment Not on file documented as of this encounter Visit Diagnoses Not on filedocumented in this encounter
--- OUTSIDE RECORDS SUMMARY | 2024-01-13 18:52 | XMS_ITS | Encounter Summary ---
Author Organization [facility] Address [address] [place] [address] Care Team Providers Care Production Recorder Name Role Phone Unavailable Primary Care Provider Unavailabl e Encounter Details Date Type Department Care Team (Late st Contact Info) Description 07/04/2015 Historical Ophthalmology RST OPH Eva Heard M.D. [address] [facility] 200 [place] [address] Social History Tobacco Use Types Packs/Day Years Used Date Smoking Tobacco: Never Assessed Comments Unknown Sex and Gender Information Value Date Recorded Sex Assigned at Not on file Legal Sex Female 10:27 PM COOK HELPER DESSERT Gender Identity Female 01/08/2022 2:47 PM COOK HELPER DESSERT Sexual Orientation Straight 01/08/2022 2: 47 PM COOK HELPER DESSERT documented as of this encounter Progress Notes * Eva Heard M.D. - 07/04/2015 9:39 AM CDT Eye Postoperative MULTI-VISIT DOCUMENT This document contains multiple patient visits and is available for review in Document Viewer. CDM Reports - EYEPO Id: [id number] Status: Fnl documented in this encounter Plan of Treatment Not on file documented as of this encounter Visit Diagnoses Not on filedocumented in this encounter
--- OUTSIDE RECORDS SUMMARY | 2024-01-13 18:52 | XMS_ITS | Encounter Summary ---
Author Organization [facility] Address [address] [place] [address] Care Team Providers Care Dog Hair Clipper Name Role Phone Unavailable Primary Care Provider Unavailabl e Encounter Details Date Type Department Care Team (Late st Contact Info) Description 11/23/2015 Historical Ophthalmology RST OPH Deann Colby M.D. [address] [place] [phone] Social History Tobacco Use Types Packs/Day Years Used Date Smoking Tobacco: Never Assessed Comments Unknown Sex and Gender Information Value Date Recorded Sex Assigned at Not on file Legal Sex Female 10:27 PM CRISIS SPECIALIST Gender Identity Female 01/08/2022 2:47 PM CRISIS SPECIALIST Sexual Orientation Straight 01/08/2022 2: 47 PM CRISIS SPECIALIST documented as of this encounter Progress Notes [...] intra-op intravitreal vancomycin and ceftazadime Discussed with ADDICTION COUNSELOR today. 23 Nov 2015: Corneal edema continues [...] vision, worsening concerns. Must come in when ADDICTION COUNSELOR is here (preferably as COS staff). Use [...] right eye CDM Reports - EYEGEN Id: [id number] Status: Fnl documented in this encounter Plan of Treatment Not on file documented as of this encounter Visit Diagnoses Not on filedocumented in this encounter
--- OUTSIDE RECORDS SUMMARY | 2024-01-13 18:52 | XMS_ITS | Encounter Summary ---
Author Organization [facility] Address [address] [place] [address] Care Team Providers Care Clinical Account Specialist Name Role Phone Unavailable Primary Care Provider Unavailabl e Encounter Details Date Type Department Care Team (Late st Contact Info) Description 10/24/2015 Historical Ophthalmology RST OPH Deann Colby M.D. [address] [place] [phone] Social History Tobacco Use Types Packs/Day Years Used Date Smoking Tobacco: Never Assessed Comments Unknown Sex and Gender Information Value Date Recorded Sex Assigned at Not on file Legal Sex Female 10:27 PM LEAF CONDITIONER HELPER Gender Identity Female 01/08/2022 2:47 PM LEAF CONDITIONER HELPER Sexual Orientation Straight 01/08/2022 2: 47 PM LEAF CONDITIONER HELPER documented as of this encounter Progress [...] intra-op intravitreal vancomycin and ceftazadime Discussed with RUSTIC TERRAZZO SETTER today. 24 Oct 2015: Corneal edema continues [...] vision, worsening concerns. Must come in when RUSTIC TERRAZZO SETTER is here. Use fluorescein strips only, not [...] #4 Floaters, right eye CDM Reports - [facility] Id: [id number] Status: Fnl documented in this encounter Plan of Treatment Not on file documented as of this encounter Visit Diagnoses Not on filedocumented in this encounter
--- OUTSIDE RECORDS SUMMARY | 2024-01-13 18:52 | XMS_ITS | Encounter Summary ---
Author Organization [facility] Address [address] [place] [address] Care Team Providers Care Commercial Relief Driver Name Role Phone Unavailable Primary Care Provider Unavailabl e Encounter Details Date Type Department Care Team (Late st Contact Info) Description 06/05/2016 Historical Ophthalmology RST OPH Deann Colby M.D. [address] [place] [phone] Social History Tobacco Use Types Packs/Day Years Used Date Smoking Tobacco: Never Assessed Comments Unknown Sex and Gender Information Value Date Recorded Sex Assigned at Not on file Legal Sex Female 10:27 PM GLOBAL CTO Gender Identity Female 01/08/2022 2:47 PM GLOBAL CTO Sexual Orientation Straight 01/08/2022 2: 47 PM GLOBAL CTO documented as of this encounter Progress Notes [...] in clinic. CDM Reports - EYEGEN Id: [id number] Status: Fnl documented in this encounter Plan of Treatment Not on file documented as of this encounter Visit Diagnoses Not on filedocumented in this encounter
--- OUTSIDE RECORDS SUMMARY | 2024-01-13 18:52 | XMS_ITS | Encounter Summary ---
Author Organization [facility] Address [address] [place] [address] Care Team Providers Care Vp Product Management Name Role Phone Unavailable Primary Care Provider Unavailabl e Encounter Details Date Type Department Care Team (Late st Contact Info) Description 05/12/2015 Historical Ophthalmology RST OPH Frantz Lee M.D. [address] [place] [phone] Social History Tobacco Use Types Packs/Day Years Used Date Smoking Tobacco: Never Assessed Comments Unknown Sex and Gender Information Value Date Recorded Sex Assigned at Not on file Legal Sex Female 10:27 PM CRIME SCENE EXAMINER Gender Identity Female 01/08/2022 2:47 PM CRIME SCENE EXAMINER Sexual Orientation Straight 01/08/2022 2: 47 PM CRIME SCENE EXAMINER documented as of this encounter Progress Notes [...] left eye CDM Reports - EYEGEN Id: [id number] Status: Fnl documented in this encounter Plan of Treatment Not on file documented as of this encounter Visit Diagnoses Not on filedocumented in this encounter
--- OUTSIDE RECORDS SUMMARY | 2024-01-13 18:52 | XMS_ITS | Encounter Summary ---
Author Organization [facility] Address [address] [place] [address] Care Team Providers Care Brickmason Contractor Name Role Phone Unavailable Primary Care Provider Unavailabl e Encounter Details Date Type Department Care Team (Late st Contact Info) Description 05/10/2015 Historical Ophthalmology RST OPH Frantz Lee M.D. [address] [place] [phone] Social History Tobacco Use Types Packs/Day Years Used Date Smoking Tobacco: Never Assessed Comments Unknown Sex and Gender Information Value Date Recorded Sex Assigned at Not on file Legal Sex Female 10:27 PM MICA MINER Gender Identity Female 01/08/2022 2:47 PM MICA MINER Sexual Orientation Straight 01/08/2022 2: 47 PM MICA MINER documented as of this encounter Progress Notes [...] left eye CDM Reports - EYEGEN Id: [id number] Status: Fnl documented in this encounter Plan of Treatment Not on file documented as of this encounter Visit Diagnoses Not on filedocumented in this encounter
--- OUTSIDE RECORDS SUMMARY | 2024-01-13 18:52 | XMS_ITS | Encounter Summary ---
Author Organization [facility] Address [address] [place] [address] Care Team Providers Care Formula Technician Name Role Phone Unavailable Primary Care Provider Unavailabl e Encounter Details Date Type Department Care Team (Late st Contact Info) Description 07/18/2015 Historical Ophthalmology RST OPH Eva Heard M.D. [address] [facility] 200 [place] [address] Social History Tobacco Use Types Packs/Day Years Used Date Smoking Tobacco: Never Assessed Comments Unknown Sex and Gender Information Value Date Recorded Sex Assigned at Not on file Legal Sex Female 10:27 PM CREDIT VERIFIER Gender Identity Female 01/08/2022 2:47 PM CREDIT VERIFIER Sexual Orientation Straight 01/08/2022 2: 47 PM CREDIT VERIFIER documented as of this encounter Progress Notes [...] intra-op intravitreal vancomycin and ceftazadime Seen with EXTRUDER OPERATOR VERTICAL today. 06/13/15: Paul negative. Well formed chamber, with normal IOP. Graft and sutures intact. Suture reaction most significant inferiorly, will continue pred forte TID and consider suture removal inferiorly at next visit. 06/16/15: Paul negative, formed chamber, suture reaction on all original graft sutures, no loose sutures, discussed with LJM, continue current drops and return next week when EXTRUDER OPERATOR VERTICAL here. Seen with SCB today. 06/20/15: Paul negative, formed chamber, suture reaction decreased, seen with EXTRUDER OPERATOR VERTICAL, M Parasol occluder placed in left lower puncu, expires 2018, LOT [id number] 06/27/15: Paul negative, increased edema over snowman [...] Monocular status CDM Reports - EYEGEN Id: [id number] Status: Fnl documented in this encounter Plan of Treatment Not on file documented as of this encounter Visit Diagnoses Not on filedocumented in this encounter
--- OUTSIDE RECORDS SUMMARY | 2024-01-13 18:52 | XMS_ITS | Encounter Summary ---
Author Organization [facility] Address [address] [place] [address] Care Team Providers Care Consultant Intern Name Role Phone Unavailable Primary Care Provider Unavailabl e Encounter Details Date Type Department Care Team (Late st Contact Info) Description 08/24/2015 Historical Ophthalmology RST OPH Deann Colby M.D. [address] [place] [phone] Social History Tobacco Use Types Packs/Day Years Used Date Smoking Tobacco: Never Assessed Comments Unknown Sex and Gender Information Value Date Recorded Sex Assigned at Not on file Legal Sex Female 10:27 PM METHODS SPECIALIST Gender Identity Female 01/08/2022 2:47 PM METHODS SPECIALIST Sexual Orientation Straight 01/08/2022 2: 47 PM METHODS SPECIALIST documented as of this encounter Progress [...] intra-op intravitreal vancomycin and ceftazadime Seen with WELDING MACHINE OPERATOR GAS METAL ARC today. 08/03/15: Corneal edema continues to improve. [...] vision, worsening concerns. Must come in when WELDING MACHINE OPERATOR GAS METAL ARC is here. Use fluorescein strips only, not [...] #4 Floaters, right eye CDM Reports - EYEProteocyte Diagnostics Id: [id number] Status: Fnl documented in this encounter Plan of Treatment Not on file documented as of this encounter Visit Diagnoses Not on filedocumented in this encounter
--- OUTSIDE RECORDS SUMMARY | 2024-01-13 18:52 | XMS_ITS | Encounter Summary ---
Author Organization [facility] Address [address] [place] [address] Care Team Providers Care Applied Computer Science Professor Name Role Phone Unavailable Primary Care Provider Unavailabl e Reason for Visit * Reason Comments Med Refill Encounter Details Date Type Department Care Team ([facility] st Contact Info) Description 12/14/2023 Refill Department of Ophthalmology in [place], [place] [address] [place] [phone] Luma Solis M.D., M.S. [address] [place] [phone] Med Refill Social History Tobacco Use Types [...] on file Legal Sex Female 10:27 PM NATIONAL VAN TRUCK DRIVER Gender Identity Female 01/08/2022 2:47 PM NATIONAL VAN TRUCK DRIVER Sexual Orientation Straight 01/08/2022 2: 47 PM NATIONAL VAN TRUCK DRIVER documented as of this encounter Plan of Treatment Not on file documented as of this encounter Visit Diagnoses Not on filedocumented in this encounter
--- OUTSIDE RECORDS SUMMARY | 2024-01-13 18:52 | XMS_ITS | Encounter Summary ---
Author Organization [facility] Address [address] [place] [address] Care Team Providers Care Wheat Farmer Name Role Phone Unavailable Primary Care Provider Unavailabl e Encounter Details Date Type Department Care Team (Late st Contact Info) Description 04/17/2016 Historical Ophthalmology RST OPH Daniel Clements M.D. [address] [place] [phone] Social History Tobacco Use Types Packs/Day Years Used Date Smoking Tobacco: Never Assessed Comments Unknown Sex and Gender Information Value Date Recorded Sex Assigned at Not on file Legal Sex Female 10:27 PM COT ASSEMBLER Gender Identity Female 01/08/2022 2:47 PM COT ASSEMBLER Sexual Orientation Straight 01/08/2022 2: 47 PM COT ASSEMBLER documented as of this encounter Progress Notes * Daniel Clements M.D. - 04/17/2016 9:37 AM CST Eye General CHIEF COMPLAINT Left eye itching all night long; 2.5 weeks; tearing a little. HISTORY OF PRESENT ILLNESS [place] over left eye pupil. No eye pain. Vision is about the same as last time here. No floaters seen. No flashes. No complaints about eye drops. No pressure. DFP: as above. Left eye has been itching for the last few weeks. Getting better. No vision changes.Thinks she maybe had an allergy to something, maybe perfume. No pain. Using Refresh tears 3x daily(mostly at night) and prednisolone drop 1 x [...] right eye CDM Reports - EYEGEN Id: [id number] Status: Fnl documented in this encounter Plan of Treatment Not on file documented as of this encounter Visit Diagnoses Not on filedocumented in this encounter
--- OUTSIDE RECORDS SUMMARY | 2024-01-13 18:52 | XMS_ITS | Encounter Summary ---
Author Organization [facility] Address [address] [place] [address] Care Team Providers Care Glove Pairer Name Role Phone Unavailable Primary Care Provider Unavailabl e Encounter Details Date Type Department Care Team (Late st Contact Info) Description 05/11/2015 Historical Ophthalmology RST OPH Frantz Lee M.D. [address] [place] [phone] Social History Tobacco Use Types Packs/Day Years Used Date Smoking Tobacco: Never Assessed Comments Unknown Sex and Gender Information Value Date Recorded Sex Assigned at Not on file Legal Sex Female 10:27 PM MEDICAL TECHNOLOGIST HEMATOLOGY Gender Identity Female 01/08/2022 2:47 PM MEDICAL TECHNOLOGIST HEMATOLOGY Sexual Orientation Straight 01/08/2022 2: 47 PM MEDICAL TECHNOLOGIST HEMATOLOGY documented as of this encounter Progress Notes [...] left eye CDM Reports - EYEGEN Id: [id number] Status: Fnl documented in this encounter Plan of Treatment Not on file documented as of this encounter Visit Diagnoses Not on filedocumented in this encounter
--- OUTSIDE RECORDS SUMMARY | 2024-01-13 18:52 | XMS_ITS | Encounter Summary ---
Author Organization [facility] Address [address] [place] [address] Care Team Providers Care Metal Rolling Mill Operator Name Role Phone Unavailable Primary Care Provider Unavailabl e Encounter Details Date Type Department Care Team (Late st Contact Info) Description 08/03/2015 Historical Ophthalmology RST OPH Eva Heard M.D. [address] [facility] 200 [place] [address] Social History Tobacco Use Types Packs/Day Years Used Date Smoking Tobacco: Never Assessed Comments Unknown Sex and Gender Information Value Date Recorded Sex Assigned at Not on file Legal Sex Female 10:27 PM ASSEMBLER SKYLIGHTS Gender Identity Female 01/08/2022 2:47 PM ASSEMBLER SKYLIGHTS Sexual Orientation Straight 01/08/2022 2: 47 PM ASSEMBLER SKYLIGHTS documented as of this encounter Progress Notes [...] intra-op intravitreal vancomycin and ceftazadime Seen with LIMOUSINE DRIVER today. 06/13/15: Paul negative. Well formed chamber, with normal IOP. Graft and sutures intact. Suture reaction most significant inferiorly, will continue pred forte TID and consider suture removal inferiorly at next visit. 06/16/15: Paul negative, formed chamber, suture reaction on all original graft sutures, no loose sutures, discussed with LJM, continue current drops and return next week when LIMOUSINE DRIVER here. Seen with SCB today. 06/20/15: Paul negative, formed chamber, suture reaction decreased, seen with LIMOUSINE DRIVER, M Parasol occluder placed in left lower puncum, expires 2018, LOT [id number] 06/27/15: Paul negative, increased edema over snowman [...] both eyes CDM Reports - EYEGEN Id: [id number] Status: Fnl documented in this encounter Plan of Treatment Not on file documented as of this encounter Visit Diagnoses Not on filedocumented in this encounter
--- OUTSIDE RECORDS SUMMARY | 2024-01-13 18:52 | XMS_ITS | Encounter Summary ---
Author Organization [facility] Address [address] [place] [address] Care Team Providers Care Health And Physical Education Professor Name Role Phone Unavailable Primary Care Provider Unavailabl e Encounter Details Date Type Department Care Team (Late st Contact Info) Description 07/12/2015 Historical Ophthalmology RST OPH Eva Heard M.D. [address] [facility] 200 [place] [address] Social History Tobacco Use Types Packs/Day Years Used Date Smoking Tobacco: Never Assessed Comments Unknown Sex and Gender Information Value Date Recorded Sex Assigned at Not on file Legal Sex Female 10:27 PM OFFICE EQUIPMENT TECHNICIAN Gender Identity Female 01/08/2022 2:47 PM OFFICE EQUIPMENT TECHNICIAN Sexual Orientation Straight 01/08/2022 2: 47 PM OFFICE EQUIPMENT TECHNICIAN documented as of this encounter Progress [...] intra-op intravitreal vancomycin and ceftazadime Seen with HYDROPRESS OPERATOR today. 06/13/15: Paul negative. Well formed chamber, with normal IOP. Graft and sutures intact. Suture reaction most significant inferiorly, will continue pred forte TID and consider suture removal inferiorly at next visit. 06/16/15: Paul negative, formed chamber, suture reaction on all original graft sutures, no loose sutures, discussed with LJM, continue current drops and return next week when HYDROPRESS OPERATOR here. Seen with SCB today. 06/20/15: Paul negative, formed chamber, suture reaction decreased, seen with HYDROPRESS OPERATOR, M Parasol occluder placed in left lower puncu, expires 2018, LOT [id number] 06/27/15: Paul negative, increased edema over snowman [...] Monocular status CDM Reports - EYEGEN Id: [id number] Status: Fnl documented in this encounter Plan of Treatment Not on file documented as of this encounter Visit Diagnoses Not on filedocumented in this encounter
--- OUTSIDE RECORDS SUMMARY | 2024-01-13 18:52 | XMS_ITS | Encounter Summary ---
Author Organization [facility] Address [address] [place] [address] Care Team Providers Care Therapist Occupational Name Role Phone Unavailable Primary Care Provider Unavailabl e Encounter Details Date Type Department Care Team (Late st Contact Info) Description 07/12/2016 Historical Ophthalmology RST OPH Deann Colby M.D. [address] [place] [phone] Social History Tobacco Use Types Packs/Day Years Used Date Smoking Tobacco: Never Assessed Comments Unknown Sex and Gender Information Value Date Recorded Sex Assigned at Not on file Legal Sex Female 10:27 PM CLEANING MATRON Gender Identity Female 01/08/2022 2:47 PM CLEANING MATRON Sexual Orientation Straight 01/08/2022 2: 47 PM CLEANING MATRON documented as of this encounter Progress Notes [...] today nearly 1 year after surgery with DIRECTOR DATA ANALYTICS. Exam is stable with 1 loose suture. IOP stable. Removed 11 sutures in total today. Continue prednisolone 1 x daily. Refresh tears 4x daily. RTC 4-6 weeks with refraction when Dr. Payton is in clinic. 12 Jul 2016: Seen with DIRECTOR DATA ANALYTICS. Exam stable with 1 loose suture. IOP [...] sent to Benigno Bishop, OD, FAAO at [facility] who also cares for Ms. Vanegas. Recommend he recheck IOP and visual acuity in 4 months. 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 Return to [place] PRN. #2 Background diabetic retinopathy, right eye [...] right eye CDM Reports - EYEGEN Id: [id number] Status: Fnl documented in this encounter Plan of Treatment Not on file documented as of this encounter Visit Diagnoses Not on filedocumented in this encounter
--- OUTSIDE RECORDS SUMMARY | 2024-01-13 18:52 | XMS_ITS | Encounter Summary ---
Author Organization [facility] Address [address] [place] [address] Care Team Providers Care Health Safety Instructor Name Role Phone Unavailable Primary Care Provider Unavailabl e Encounter Details Date Type Department Care Team (Late st Contact Info) Description 10/13/2015 Historical Ophthalmology RST OPH Deann Colby M.D. [address] [place] [phone] Social History Tobacco Use Types Packs/Day Years Used Date Smoking Tobacco: Never Assessed Comments Unknown Sex and Gender Information Value Date Recorded Sex Assigned at Not on file Legal Sex Female 10:27 PM FLIGHT ENGINEER INSPECTOR Gender Identity Female 01/08/2022 2:47 PM FLIGHT ENGINEER INSPECTOR Sexual Orientation Straight 01/08/2022 2: 47 PM FLIGHT ENGINEER INSPECTOR documented as of this encounter Progress [...] intra-op intravitreal vancomycin and ceftazadime Discussed with PHYSICAL EDUCATION PROFESSOR today. 13 Oct 2015: Corneal edema continues [...] vision, worsening concerns. Must come in when PHYSICAL EDUCATION PROFESSOR is here. Use fluorescein strips only, [...] #4 Floaters, right eye CDM Reports - EYENosto Id: [id number] Status: Fnl documented in this encounter Plan of Treatment Not on file documented as of this encounter Visit Diagnoses Not on filedocumented in this encounter
--- OUTSIDE RECORDS SUMMARY | 2024-01-13 18:52 | XMS_ITS | Encounter Summary ---
Author Organization [facility] Address [address] [place] [address] Care Team Providers Care Buffer Nickel Name Role Phone Unavailable Primary Care Provider Unavailabl e Encounter Details Date Type Department Care Team (Late st Contact Info) Description 06/11/2016 Historical Ophthalmology RST OPH Deann Colby M.D. [address] [place] [phone] Social History Tobacco Use Types Packs/Day Years Used Date Smoking Tobacco: Never Assessed Comments Unknown Sex and Gender Information Value Date Recorded Sex Assigned at Not on file Legal Sex Female 10:27 PM ANIMAL CRUELTY INVESTIGATOR Gender Identity Female 01/08/2022 2:47 PM ANIMAL CRUELTY INVESTIGATOR Sexual Orientation Straight 01/08/2022 2: 47 PM ANIMAL CRUELTY INVESTIGATOR documented as of this encounter Progress [...] today nearly 1 year after surgery with SINGLE STROKE PREFORMER. Exam is stable with 1 loose suture. [...] right eye CDM Reports - EYEGEN Id: [id number] Status: Fnl documented in this encounter Plan of Treatment Not on file documented as of this encounter Visit Diagnoses Not on filedocumented in this encounter
--- OUTSIDE RECORDS SUMMARY | 2024-01-13 18:52 | XMS_ITS | Encounter Summary ---
Author Organization [facility] Address [address] [place] [address] Care Team Providers Care Terrazzo Mechanic Name Role Phone Unavailable Primary Care Provider Unavailabl e Encounter Details Date Type Department Care Team (Late st Contact Info) Description 05/13/2015 Historical Ophthalmology RST OPH Frantz Lee M.D. [address] [place] [phone] Social History Tobacco Use Types Packs/Day Years Used Date Smoking Tobacco: Never Assessed Comments Unknown Sex and Gender Information Value Date Recorded Sex Assigned at Not on file Legal Sex Female 10:27 PM MEDIATION COMMISSIONER Gender Identity Female 01/08/2022 2:47 PM MEDIATION COMMISSIONER Sexual Orientation Straight 01/08/2022 2: 47 PM MEDIATION COMMISSIONER documented as of this encounter Progress Notes [...] follow with her PCP for diabetes management. AIRPLANE COVER MAKER ([id number]): I interviewed and examined the patient and [...] Corneal ulcer, left eye CDM Reports - [employer] Id: [id number] Status: Fnl documented in this encounter Plan of Treatment Not on file documented as of this encounter Visit Diagnoses Not on filedocumented in this encounter
--- OUTSIDE RECORDS SUMMARY | 2024-01-13 18:52 | XMS_ITS | Encounter Summary ---
Author Organization [facility] Address [address] [place] [address] Care Team Providers Care Network Services Project Manager Name Role Phone Unavailable Primary Care Provider Unavailabl e Encounter Details Date Type Department Care Team (Late st Contact Info) Description 05/20/2015 Historical Ophthalmology RST OPH Eva Heard M.D. [address] [facility] 200 [place] [address] Social History Tobacco Use Types Packs/Day Years Used Date Smoking Tobacco: Never Assessed Comments Unknown Sex and Gender Information Value Date Recorded Sex Assigned at Not on file Legal Sex Female 10:27 PM PROGRAM DIRECTOR CABLE TELEVISION Gender Identity Female 01/08/2022 2:47 PM PROGRAM DIRECTOR CABLE TELEVISION Sexual Orientation Straight 01/08/2022 2: 47 PM PROGRAM DIRECTOR CABLE TELEVISION documented as of this encounter Progress Notes [...] Saturday. s/p intra-op subconj Dex Seen with STITCHER OPERATOR today Plan: Alternate every 2 hours [...] right eye CDM Reports - [facility] Id: [id number] Status: Fnl documented in this encounter Plan of Treatment Not on file documented as of this encounter Visit Diagnoses Not on filedocumented in this encounter
--- OUTSIDE RECORDS SUMMARY | 2024-01-13 18:52 | XMS_ITS | Encounter Summary ---
Author Organization [facility] Address [address] [place] [address] Care Team Providers Care Curing Pickling Packer Name Role Phone Unavailable Primary Care Provider Unavailabl e Encounter Details Date Type Department Care Team (Late st Contact Info) Description 05/09/2015 Historical Ophthalmology RST OPH Frantz Lee M.D. [address] [place] [phone] Social History Tobacco Use Types Packs/Day Years Used Date Smoking Tobacco: Never Assessed Comments Unknown Sex and Gender Information Value Date Recorded Sex Assigned at Not on file Legal Sex Female 10:27 PM GRINDER SET UP OPERATOR Gender Identity Female 01/08/2022 2:47 PM GRINDER SET UP OPERATOR Sexual Orientation Straight 01/08/2022 2: 47 PM GRINDER SET UP OPERATOR documented as of this encounter Progress [...] to the eye doctor this morning in [facility]. States that she lost the drop that [...] left eye CDM Reports - [facility] Id: [id number] Status: Fnl documented in this encounter Plan of Treatment Not on file documented as of this encounter Visit Diagnoses Not on filedocumented in this encounter
--- OUTSIDE RECORDS SUMMARY | 2024-01-13 18:52 | XMS_ITS | Encounter Summary ---
Author Organization [facility] Address [address] [place] [address] Care Team Providers Care Records Management Coordinator Name Role Phone Unavailable Primary Care Provider Unavailabl e Encounter Details Date Type Department Care Team (Late st Contact Info) Description 03/12/2016 Historical Ophthalmology RST OPH Daniel Clements M.D. [address] [place] [phone] Social History Tobacco Use Types Packs/Day Years Used Date Smoking Tobacco: Never Assessed Comments Unknown Sex and Gender Information Value Date Recorded Sex Assigned at Not on file Legal Sex Female 10:27 PM QA AUTOMATION ARCHITECT Gender Identity Female 01/08/2022 2:47 PM QA AUTOMATION ARCHITECT Sexual Orientation Straight 01/08/2022 2: 47 PM QA AUTOMATION ARCHITECT documented as of this encounter Progress [...] vision, worsening concerns. Must come in when LEVERMAN is here (preferably as COS staff). Use [...] right eye CDM Reports - [facility] Id: [id number] Status: Fnl documented in this encounter Plan of Treatment Not on file documented as of this encounter Visit Diagnoses Not on filedocumented in this encounter
--- OUTSIDE RECORDS SUMMARY | 2024-01-13 18:52 | XMS_ITS | Encounter Summary ---
Author Organization [facility] Address [address] [place] [address] Care Team Providers Care Sailing Officer Name Role Phone Unavailable Primary Care Provider Unavailabl e Reason for Visit * Reason Comments Med Refill Encounter Details Date Type Department Care Team ([facility] st Contact Info) Description 11/06/2023 Refill Division of General Internal Medicine in [place], [place] [address] [place] [phone] Daniel Ingram M.D. [address] [place] [phone] Med Refill Social History Tobacco Use Types [...] on file Legal Sex Female 10:27 PM CUSTOMER SERVICE OPERATOR Gender Identity Female 01/08/2022 2:47 PM CUSTOMER SERVICE OPERATOR Sexual Orientation Straight 01/08/2022 2: 47 PM CUSTOMER SERVICE OPERATOR documented as of this encounter Plan of Treatment Not on file documented as of this encounter Visit Diagnoses Not on filedocumented in this encounter
--- OUTSIDE RECORDS SUMMARY | 2024-01-13 18:52 | XMS_ITS | Encounter Summary ---
Author Organization [facility] Address [address] [place] [address] Care Team Providers Care Children'S Librarian Name Role Phone Unavailable Primary Care Provider Unavailabl e Encounter Details Date Type Department Care Team (Late st Contact Info) Description 06/13/2015 Historical Ophthalmology RST OPH Maricruz Garcia M.D. Social History Tobacco Use Types Packs/Day Years Used Date Smoking Tobacco: Never Assessed Comments Unknown Sex and Gender Information Value Date Recorded Sex Assigned at Not on file Legal Sex Female 10:27 PM TEST CENTER ADMINISTRATOR Gender Identity Female 01/08/2022 2:47 PM TEST CENTER ADMINISTRATOR Sexual Orientation Straight 01/08/2022 2: 47 PM TEST CENTER ADMINISTRATOR documented as of this encounter Progress [...] Monocular status CDM Reports - [facility] Id: [id number] Status: Fnl documented in this encounter Plan of Treatment Not on file documented as of this encounter Visit Diagnoses Not on filedocumented in this encounter
--- OUTSIDE RECORDS SUMMARY | 2024-01-13 18:52 | XMS_ITS | Encounter Summary ---
Author Organization [facility] Address [address] [place] [address] Care Team Providers Care Government Guard Name Role Phone Unavailable Primary Care Provider Unavailabl e Encounter Details Date Type Department Care Team (Late st Contact Info) Description 06/13/2015 Historical Ophthalmology RST OPH Maricruz Garcia M.D. Social History Tobacco Use Types Packs/Day Years Used Date Smoking Tobacco: Never Assessed Comments Unknown Sex and Gender Information Value Date Recorded Sex Assigned at Not on file Legal Sex Female 10:27 PM ARCHITECTURAL PRACTICE MANAGER Gender Identity Female 01/08/2022 2:47 PM ARCHITECTURAL PRACTICE MANAGER Sexual Orientation Straight 01/08/2022 2: 47 PM ARCHITECTURAL PRACTICE MANAGER documented as of this encounter Progress Notes * Maricruz Garcia M.D. - 06/13/2015 3:08 PM CDT Eye Postoperative MULTI-VISIT DOCUMENT This document contains multiple patient visits and is available for review in Document Viewer. CDM Reports - [facility] Id: [id number] Status: Fnl documented in this encounter Plan of Treatment Not on file documented as of this encounter Visit Diagnoses Not on filedocumented in this encounter
[2024-01-13 19:13] LABS: Basophils Absolute Auto 0.02 K/uL (0.00-0.30); Basophils Percent Auto 0.3 % (0.0-3.0); Eosinophils Absolute Auto 0.27 K/uL (0.00-0.50); Eosinophils Percent Auto 4.1 % (0.0-7.0); Hematocrit 40.9 % (33.0-51.0); Hemoglobin* 12.6 gm/dL (12.0-16.0); Immature Granulocytes Abs Auto 0.01 K/uL (0.00-0.30); Immature Granulocytes Pct Auto 0.2 %; Lymphocytes Percent Auto 12.2 % (20-44); Mean Corpuscular HGB Conc 31 gm/dL (32-36); Mean Corpuscular Hemoglobin 27 pg (26-34); Mean Corpuscular Volume 89 fL (80-100); Monocytes Percent Auto 6.3 % (0.0-11.0); Neutrophils Percent Auto 76.9 % (42.0-72.0); Platelet Count* 229 K/uL (140-440); RDW Coefficient of Variation % 18.5 % (11.5-15.5); Red Blood Count 4.61 m/uL (4.00-5.20); White Blood Count* 6.65 K/uL (4.50-11.00)
[2024-01-13 19:35] LABS: Chloride* 97 mmol/L (96-114)
[2024-01-13 19:36] LABS: Potassium* 4.1 mmol/L (3.6-5.1); Slide Review Reflex No; Sodium* 134 mmol/L (135-149)
[2024-01-13 19:38] LABS: Creatinine* 3.2 mg/dL (0.5-1.5); Est. Creatinine Clearance* 8.57; Estimated Glomerular Filt Rate 14 ml/min
[2024-01-13 19:39] LABS: Anion Gap 7 mEq/L (7-15); Blood Urea Nitrogen* 25 mg/dL (7-30); Calcium* 9.8 mg/dL (8.4-10.6); Carbon Dioxide* 30 mmol/L (20-32); Glucose* 190 mg/dL (60-115)
== END 2024-01-13 20:40 | disposition home or self-care (01) ==
PROVIDERS: Emergency Provider Emergency Medicine Emergency Medical Services; PCP Family Medicine
DX: H81.10 Benign paroxysmal vertigo, unspecified ear (principal); N18.6 End stage renal disease
CPT/HCPCS: 36415; 80048; 85025; 93005; 99284; A9270

== ENCOUNTER 2024-03-30 14:29 | Outpatient (CLI) | payer MEDICARE, SELFPAY | END 2024-03-30 14:30 | disposition home or self-care (01) | LOC: AMB 03-31 10:40 | PROVIDERS: PCP Family Medicine; Visit Provider Emergency Medicine Emergency Medical Services | DX: R41.82 Altered mental status, unspecified (principal); I10 Essential (primary) hypertension; R79.89 Other specified abnormal findings of blood chemistry | CPT/HCPCS: A0425; A0427 ==

== ENCOUNTER 2024-03-30 14:49 | Emergency (ER) | payer MEDICARE, SELFPAY ==
[2024-03-30] VITALS (22 sets, daily range): BP systolic 147–209; BP diastolic 61–115; PULSE 63–73; RESP 4–20; TEMP 36.4; O2SAT 92–100
--- OUTSIDE RECORDS SUMMARY | 2024-03-30 14:51 | XMS_ITS | Clinical Summary ---
Author Organization [facility] Address [address] [place] [address] Care Team Providers Care Roll Cutting Operator Name Role Phone Tyrell Schneider Primary Care Provider [phone] Allergies Active Allergy Reactions Criticality Noted Date Comments Ampicillin Hives,Rash Low 05/13/2006 hives Atenolol Hives,Rash Low 03/15/2005 Atorvastatin Hives,Muscle Pain (Myalgia),Other (See Comments) 12/07/2003 Other Reaction(s): Back Pain bumps Blood Transfusion Related (Informational Only) Other (See Comments) High 12/14/2022 Patient has a history of a clinically significant antibody against RBC antigens. A delay in compatible RBCs may occur. Cat Dander Hives 04/20/2021 Cats Shortness Of Breath High [...] 01/09/2010 itching Niacin Rash,Itching Low 05/13/2006 itch [place] Rash Low 05/16/2010 Oxycodone Nausea and [...] times daily 3 Active neomycin-polymyx in-dexAMETHasone (MAXITROL) 3.5-03209-2.[address] 0.25 inches Into the [...] Comments Blood Pressure 166/77 02/21/2023 3:58 PM COMMUNICATIONS LEAD Pulse 64 02/21/2023 3:58 PM COMMUNICATIONS LEAD Temperature 36.9 C (98.4 F) 02/21/2023 3:58 PM COMMUNICATIONS LEAD Respiratory Rate 18 02/21/2023 3:58 PM COMMUNICATIONS LEAD Oxygen Saturation 99% 02/21/2023 3:58 PM COMMUNICATIONS LEAD Inhaled Oxygen Concentration - - Weight 40.8 kg (90 lb) 02/20/2023 8:47 PM COMMUNICATIONS LEAD Height 154.9 cm (5' 1) 12/13/2022 3:15 [...] VACCINE (1 - 1-dose 75+ series) 08/30/2022 BMP 05/23/2023 02/21/2023, 02/11, 02/19/2023, Additional history exists HEMOGLOBIN 08/22/2023 02/21/2023, 02/11, 02/19/2023, Additional history exists COVID-19 Vaccine ( season) 2023 12/25/2022, 10/25/2021, 05/17/2021, Additional history exists INFLUENZA VACCINE (#1) 2023 , 10/25/2021, 10/28/2020, Additional history exists PHQ-2 (once per calendar year) 2024 GLUCOSE 02/21/2026 02/21/2023, 02/11, 02/21/2023, Additional history exists MAMMO SCREENING Discontinued 01/01/2019 Pneumococcal Vaccine: 50+ Years Completed 04/10/2022, 06/22/2014, 12/31/2012, Additional history [...] WITH PLATELETS Routine 02/21/2023 8: 16 AM COMMUNICATIONS LEAD BASIC METABOLIC PANEL Routine 02/21/2023 8:16 AM COMMUNICATIONS LEAD GLUCOSE BY METER Routine 02/21/2023 1:08 AM COMMUNICATIONS LEAD COMPREHENSIVE METABOLIC PANEL STAT 02/20/2023 8:52 AM COMMUNICATIONS LEAD RENAL PANEL Routine 12/18/2022 8:45 AM COMMUNICATIONS LEAD OCCULT BLOOD STOOL STAT 12/12/2022 11 :03 PM CDT from Last 3 Months or Most Recently Relevant to Health Maintenance Results * (ABNORMAL) Basic metabolic panel (02/21/2023 8:16 AM COMMUNICATIONS LEAD) Sodium 134(L) 135 - 145 mmol/L 02/21/2023 8:55 AM [facility] Comment:Reference intervals for this test were updated on 11/06/2022 to more accurately reflect our healthy population. There may be differences in the flagging of prior results with similar values performed with this method. Interpretation of those prior results can be made in the context of the updated reference intervals. Potassium 4.0 3.4 - 5.3 mmol/L 02/21/2023 8:55 AM [facility] Chloride 97(L) 98 - 107 mmol/L 02/21/2023 8:55 AM [facility] Carbon Dioxide (CO2) 28 22 - 29 mmol/L 02/21/2023 8:55 AM [facility] Anion Gap 9 7 - 15 mmol/L 02/21/2023 8:55 AM [facility] Urea Nitrogen 12.8 8.0 - 23.0 mg/dL 02/21/2023 8:55 AM [facility] Creatinine 2.49(H) 0.51 - 0.95 mg/dL 02/21/2023 8:55 AM [facility] GFR Estimate 20(L) >60 mL/min/1. 73m2 02/21/2023 8:55 AM [facility] Calcium 8.6(L) 8.8 - 10.2 mg/dL 02/21/2023 8:55 AM [facility] Glucose 144(H) 70 - 99 mg/dL 02/21/2023 8:55 AM [facility] Blood STRUCTURE OF RIGHT HAND / Unknown Venipuncture / Unknown 02/21/2023 8:16 AM COMMUNICATIONS LEAD 02/21/2023 8:34 AM [facility] us Nidia Yanez DO LAB - BLOOD ORDERABLES Fi nal Result LABORATORY [facility] [address] Lab (1st floor, no room number) [place] [address], [facility] [phone] * (ABNORMAL) CBC with platelets (02/21/2023 8:16 AM COMMUNICATIONS LEAD) WBC Count 6.6 4.0 - 11.0 10e3/uL 02/21/2023 8:39 AM COMMUNICATIONS LEAD [facility] LABORATORY RBC Count 4.43 3.80 - 5.20 10e6/uL 02/21/2023 8:39 AM COMMUNICATIONS LEAD [facility] Hemoglobin 12.3 11.7 - 15.7 g/dL 02/21/2023 8:39 AM COMMUNICATIONS LEAD [facility] LABORATORY Hematocrit 39.2 35.0 - 47.0 % 02/21/2023 8:39 AM COMMUNICATIONS LEAD [facility] LAB[facility] MCV 89 78 - 100 fL 02/21/2023 8:39 AM COMMUNICATIONS LEAD [facility] MCH 27.8 26.5 - 33.0 pg 02/21/2023 8:39 AM COMMUNICATIONS LEAD [facility] LAB[facility]ORY MCHC 31.4(L) 31.5 - 36.5 g/dL 02/21/2023 8:39 AM COMMUNICATIONS LEAD [facility] LAB[facility]ATORY RDW 19.3(H) 10.0 - 15.0 % 02/21/2023 8:39 AM COMMUNICATIONS LEAD [facility] Platelet Count 292 150 - 450 10e3/uL 02/21/2023 8:39 AM COMMUNICATIONS LEAD [facility] Blood STRUCTURE OF RIGHT HAND / Unknown Venipuncture / Unknown 02/21/2023 8:16 AM COMMUNICATIONS LEAD 02/21/2023 8:34 AM COMMUNICATIONS LEAD us Nidia Yanez DO LAB - BLOOD ORDERABLES Fi nal Result [facility] [address] Lab (1st floor, no room number) [place] [address], [facility] [phone] * (ABNORMAL) Glucose by meter (02/21/2023 1:08 AM COMMUNICATIONS LEAD) [facility] GLUCOSE BY METER POCT 131(H) 70 - 99 mg/dL 02/21/2023 1:17 AM COMMUNICATIONS LEAD LABORATORY POC Blood, Capillary BLOOD SPECIMEN / Unknown 02/21/2023 1:08 AM COMMUNICATIONS LEAD 02/21/2023 1:17 AM COMMUNICATIONS LEAD us Joseph Jeffers MD LAB - BEAKER POCT Final R esult [facility] [address] Lab (1st floor, no room number) [place] [address], [facility] [phone] * (ABNORMAL) Comprehensive metabolic panel (02/20/2023 8:52 AM COMMUNICATIONS LEAD) [facility] Sodium 135 135 - 145 mmol/L 02/20/2023 9:27 AM [facility] Comment:Reference intervals for this test were updated on 11/06/2022 to more accurately reflect our healthy population. There may be differences in the flagging of prior results with similar values performed with this method. Interpretation of those prior results can be made in the context of the updated reference intervals. Potassium 4.2 3.4 - 5.3 mmol/L 02/20/2023 9:27 AM [facility] Carbon Dioxide (CO2) 25 22 - 29 mmol/L 02/20/2023 9:27 AM [facility] Anion Gap 12 7 - 15 mmol/L 02/20/2023 9:27 AM [facility] Urea Nitrogen 34.5(H) 8.0 - 23.0 mg/dL 02/20/2023 9:27 AM [facility] Creatinine 3.81(H) 0.51 - 0.95 mg/dL 02/20/2023 9:27 AM [facility] GFR Estimate 12(L) >60 mL/min/1. 73m2 02/20/2023 9:27 AM [facility] Calcium 8.7(L) 8.8 - 10.2 mg/dL 02/20/2023 9:27 AM [facility] Chloride 98 98 - 107 mmol/L 02/20/2023 9:27 AM [facility] Glucose 112(H) 70 - 99 mg/dL 02/20/2023 9:27 AM [facility] Alkaline Phosphatase 122 40 - 150 U/L 02/20/2023 9:27 AM [facility] Comment:Reference intervals for this test were updated on 12/25/2022 to more accurately reflect our healthy population. There may be differences in the flagging of prior results with similar values performed with this method. Interpretation of those prior results can be made in the context of the updated reference intervals. AST 18 0 - 45 U/L 02/20/2023 9:27 AM [facility] Comment:Reference intervals for this test were updated on 07/23/2022 to more accurately reflect our healthy population. There may be differences in the flagging of prior results with similar values performed with this method. Interpretation of those prior results can be made in the context of the updated reference intervals. ALT 5 0 - 50 U/L 02/20/2023 9:27 AM COMMUNICATIONS LEAD LABORATORY Comment:Reference intervals for this test were updated on 07/23/2022 to more accurately reflect our healthy population. There may be differences in the flagging of prior results with similar values performed with this method. Interpretation of those prior results can be made in the context of the updated reference intervals. Protein Total 6.3(L) 6.4 - 8.3 g/dL 02/20/2023 9:27 AM COMMUNICATIONS LEAD LABORATORY Albumin 3.2(L) 3.5 - 5.2 g/dL 02/20/2023 9:27 AM COMMUNICATIONS LEAD LABORATORY Bilirubin Total 0.2 <=1.2 mg/dL 02/20/2023 9:27 AM COMMUNICATIONS LEAD LABORATORY Blood STRUCTURE OF LEFT UPPER LIMB / Unknown Venipuncture / Unknown 02/20/2023 8:52 AM COMMUNICATIONS LEAD 02/20/2023 8:59 AM COMMUNICATIONS LEAD us Kai Khan DO LAB - BLOOD ORDERABLES Fin al Result LABORATORY [facility] [address] [facility] Lab (1st floor, no room number) [place] [address], [facility] [phone] * (ABNORMAL) Renal panel (12/18/2022 8:45 AM COMMUNICATIONS LEAD) [facility] Sodium 135 135 - 145 mmol/L 12/18/2022 9:44 AM COMMUNICATIONS LEAD LABORATORY Comment:Reference intervals for this test were updated on 11/06/2022 to more accurately reflect our healthy population. There may be differences in the flagging of prior results with similar values performed with this method. Interpretation of those prior results can be made in the context of the updated reference intervals. Potassium 4.2 3.4 - 5.3 mmol/L 12/18/2022 9:44 AM COMMUNICATIONS LEAD LABORATORY Chloride 99 98 - 107 mmol/L 12/18/2022 9:44 AM COMMUNICATIONS LEAD LABORATORY Carbon Dioxide (CO2) 29 22 - 29 mmol/L 12/18/2022 9:44 AM [facility] Anion Gap 7 7 - 15 mmol/L 12/18/2022 9:44 AM [facility] Glucose 128(H) 70 - 99 mg/dL 12/18/2022 9:44 AM [facility] Urea Nitrogen 17.7 8.0 - 23.0 mg/dL 12/18/2022 9:44 AM [facility] Creatinine 2.67(H) 0.51 - 0.95 mg/dL 12/18/2022 9:44 AM [facility] GFR Estimate 18(L) >60 mL/min/1. 73m2 12/18/2022 9:44 AM [facility] Calcium 7.6(L) 8.8 - 10.2 mg/dL 12/18/2022 9:44 AM [facility] Albumin 2.6(L) 3.5 - 5.2 g/dL 12/18/2022 9:44 AM [facility] Phosphorus 2.3(L) 2.5 - 4.5 mg/dL 12/18/2022 9:44 AM [facility] Blood STRUCTURE OF RIGHT UPPER LIMB / Unknown Venipuncture / Unknown 12/18/2022 8:45 AM COMMUNICATIONS LEAD 12/18/2022 8:50 AM COMMUNICATIONS LEAD us David Treviño MD LAB - BLOOD ORDERABLES Final Res ult LABORATORY [facility] [address] Lab (1st floor, no room number) [place] [address], [facility] [phone] * Stool: occult blood (12/12/2022 11:03 PM CDT) Occult Blood Negative Negative JENNIFER 12/12/2022 11:32 PM CDT LABORATORY Stool RECTAL CONTENTS / Unknown Non-blood Collection / Unknown 12/12/2022 11:03 PM CDT 12/12/2022 11:11 PM CDT us Jason Tapia MD LAB - STOOLS ORDERABLES Final Result [facility] [address] [facility] Lab (1st floor, no room number) [place] [address], [facility] [phone] from Last 3 Months or Most Recently Relevant to Health Maintenance Insurance [facility] [employer] [id number] [facility] [employer] Advance Directives For more information, please contact: [phone] * Full Code (Latest Code Status on [...] felipae nt/ legal decision maker Care Teams Roll Cutting Operator Relationship Specialty Start Date End Date Tyrell Schneider [address] [place] [id number] PCP - General Family Medicine 02/19/23
--- OUTSIDE RECORDS SUMMARY | 2024-03-30 14:51 | XMS_ITS ---
Author Name Toni, Clinic Address [address] [place] [address] Phone [phone] Organization [facility] e, NA DOCUMENT DISCLAIMER Multiple document versions may exist, please be sure you review the latest version. The information in the [facility] Continuity of Care Document represents a summary of certain health and medical information. It may not contain the complete medical history for the patient and should be independently verified. The represented time in the document is Eastern Time. 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, 2024 Unspecified abdominal pain R10.9 Active J anuary [...] Characteristics of Home environment No Information Available Gender and Sex Information Gender Identity Sexual Orientation No Information Available No Information Available MEDICATIONS Prescribed Medications for Dialysis Treatments Medication Instructions Dosage Route Start Date End Date Stat Clonidine HCl PRN 0.1 mg Oral JanuaryJanuary 27, 2025 Active Heparin Sodium (Porcine) 1,000 Units/mL Systemic Bolus, Every Treatment, Total treatment minutes 165 2000 units Intravenous - push January 29, 2024 January 27, 2025 Active Mircera During Dialysis, Every 4 weeks 75 mcg Intravenous - push March 11, 2024 March 10, 2025 Active Home Medications Medication Instructions Dosage Route Start Date End Date Stat albuterol sulfate 2.5 mg/3 mL (0.083 %) Take as directed every four hours as needed 1 vial INHALATION April 21, 2018 Active Shania Low Dose Aspirin 81 mg Take by mouth once a day 1 tablet ORAL March 06, 2023 Active Calcium Acetate 667 mg Take By Mouth Three times a day With Meals 3 Capsule By Mouth March 13, 2024 March 13, 2025 Active clonidine HCl 0.1 mg Take by [...] 18, 2023 Active levofloxacin 500 mg ORAL December 04, 2023 Active Miralax 17 gram Take dissolved [...] 1 tablet ORAL February 13, 2023 Active nicotine 7 mg/24 hr Apply to skin once a day 1 patch TRANSDERMAL February 24, 2024 Active oxycodone 5 mg Take by mouth [...] as needed TOPICAL April 21, 2018 Active calcitriol 0.5 mcg by mouth once a day 1 capsule ORAL November 20, 2023 March 20, 2024 Discontinued calcium acetate(phosphat bind) 667 mg Take by mouth three times a day with meals 2 capsule ORAL October 28, 2023 March 13, 2024 Discontinued VITAL SIGNS Post-Treatment Vital Signs Vital Sign Value Date / Time Blood Pressure-sitting 185/86 mmHg March 27, 2024 10:43 AM Blood Pressure-standing 140/54 mmHg March 27, 2024 10:43 AM Heart Rate 60 beats per minute March 27, 2024 10:43 AM Respiratory Rate 16 breaths per minute March 27, 2024 10:43 AM Temperature 96.8 deg. F March 27 10:43 AM Weight Vital Sign Value Date / Time Estimated Dry Weight 37.5 kg January 11:59 PM Pre-Dialysis 39.70 kg March 27 10:43 AM Post-Dialysis 38.10 kg March 27 10:43 AM Other Other Value Date / Time Height 152.4 cm February 14, 2022 12:00 AM Body Mass Index 16.23 kg/m2 March 20 03:56 PM LAB RESULTS Hematology Result Type Result Value Relevant Referen ce Range Interpretation Date Transferrin Sat. (Calc) 27 % 20 - 55 % - October 16, 2023 Neutrophils 82.0 % 40.0 - 75.0 % High October 16, 2023 WBC (No Diff) 7.69 1000/mcL 4.80 - 10.80 1000/mcL - October 16, 2023 TIBC 226 mcg/dL 185 - 515 mcg/dL - Septembe r 2023 UIBC (Calc) 166 mcg/dL 155 - 355 mcg/dL - er 2023 Neutrophils 81.7 % 40.0 - 75.0 % High November WBC (No Diff) 8.91 1000/mcL 4.80 - 10.80 1000/mcL - November 13, 2023 UIBC (Calc) 156 mcg/dL 155 - 355 mcg/dL - November 13, 2023 TIBC 239 mcg/dL 185 - 515 mcg/dL - November 13, 2023 Transferrin Sat. (Calc) 35 % 20 - 55 % - November 13, 2023 UIBC (Calc) 164 mcg/dL 155 - 355 mcg/dL - Novembe r 2023 TIBC 239 mcg/dL 185 - 515 mcg/dL - December 18, 2023 Transferrin Sat. (Calc) 31 % 20 - 55 % - December 17 Ferritin 1491 ng/mL 10 - 291 ng/mL High December WBC (No Diff) 10.25 1000/mcL 4.80 - 10.80 1000/mcL - December 18, 2023 Neutrophils 82.5 % 40.0 - 75.0 % High December Hemoglobin x 3 33.0 % 36.0 - 48.0 % Low Novembe r 2023 Hemoglobin x 3 32.4 % 36.0 - 48.0 % Low Novembe r 2023 Hemoglobin x 3 30.0 % 36.0 - 48.0 % Low Decembe r 2023 Hemoglobin x 3 31.2 % 36.0 - 48.0 % Low Decembe r 2023 Platelets 275 1000/mcL 130 - 400 1000/mcL - Dece mber 2023 Iron 51 mcg/dL 30 - 160 mcg/dL - January 22, 2024 UIBC (Calc) 204 mcg/dL 155 - 355 mcg/dL - Decembe r 2023 TIBC 255 mcg/dL 185 - 515 mcg/dL - January 22, 2024 Transferrin Sat. (Calc) 20 % 20 - 55 % - January 21 Ferritin 1551 ng/mL 10 - 291 ng/mL High January 112023 Neutrophils 67.5 % 40.0 - 75.0 % - January 112023 Lymphocytes 3.8 % 19.0 - 48.0 % Low January 112023 Monocytes 11.4 % 3.0 - 10.0 % High January 22, 2024 MCH 28.9 pg 27.0 - 31.0 pg - January 112023 MCHC 32.7 g/dL 30.0 - 36.0 g/dL - January 22, 2024 RDW 20.2 % 11.5 - 14.5 % High January Eosinophil 11.3 % 0.0 - 7.0 % High January 22, 2024 Basophils 2.2 % 0.0 - 1.5 % High January 22, 2024 JUANITO 3.9 % 0.0 - 4.0 % - January 22, 2024 WBC (No Diff) 4.50 1000/mcL 4.80 - 10.80 1000/mcL Low January 22, 2024 Hemoglobin x 3 30.9 % 36.0 - 48.0 % Low Decembe r 2023 Hemoglobin x 3 30.6 % 36.0 - 48.0 % Low Decembe r 2023 Hemoglobin x 3 31.8 % 36.0 - 48.0 % Low Decembe r 2023 Lymphocytes 9.1 % 19.0 - 48.0 % Low February Monocytes 4.3 % 3.0 - 10.0 % - February 19, 2024 Eosinophil 4.2 % 0.0 - 7.0 % - February 18, 025 Basophils 0.3 % 0.0 - 1.5 % - February 18, 025 JUANITO 1.5 % 0.0 - 4.0 % - February 18, 025 Neutrophils 80.6 % 40.0 - 75.0 % High February RDW 19.3 % 11.5 - 14.5 % High February 19, 2024 Hemoglobin x 3 30.9 % 36.0 - 48.0 % Low February 19, 2024 Platelets 278 1000/mcL 130 - 400 1000/mcL - richie2024 WBC (No Diff) 8.27 1000/mcL 4.80 - 10.80 1000/mcL - February 19, 2024 MCH 29.0 pg 27.0 - 31.0 pg - February MCHC 31.2 g/dL 30.0 - 36.0 g/dL - February 19, 2024 UIBC/TIBC 167 mcg/dL 155 - 355 mcg/dL - February 24, 2024 Hemoglobin x 3 29.7 % 36.0 - 48.0 % Low February 26, 2024 HGB 9.5 g/dL 12.0 - 16.0 g/dL Low March 04, 2024 Hemoglobin x 3 28.5 % 36.0 - 48.0 % Low March 04, 2024 Hemoglobin x 3 28.8 % 36.0 - 48.0 % Low March 11, 2024 HGB 9.6 g/dL 12.0 - 16.0 g/dL Low March 11, 2024 Neutrophils 81.4 % 40.0 - 75.0 % High March HGB 9.8 g/dL 12.0 - 16.0 g/dL Low March 18, 2024 Hemoglobin x 3 29.4 % 36.0 - 48.0 % Low 2024 Platelets 299 1000/mcL 130 - 400 1000/mcL - 2024 MCHC 32.1 g/dL 30.0 - 36.0 g/dL - March 18, 2024 RDW 18.7 % 11.5 - 14.5 % High March HCT 30.6 % 37.0 - 47.0 % Low March RBC 3.30 mill/mcL 4.20 - 5.40 mill/mcL Low March 18, 2024 WBC (No Diff) 9.97 1000/mcL 4.80 - 10.80 1000/mcL - March 18, 2024 MCH 29.7 pg 27.0 - 31.0 pg - March Iron 55 mcg/dL 30 - 160 mcg/dL - March 18, 2024 UIBC (Calc) 191 mcg/dL 155 - 355 mcg/dL - 2024 TIBC 246 mcg/dL 185 - 515 mcg/dL - March 18, 2024 Transferrin Sat. (Calc) 22 % 20 - 55 % - March 18 Lymphocytes 7.2 % 19.0 - 48.0 % March JUANITO 1.4 % 0.0 - 4.0 % - March 18, 2024 Basophils 0.1 % 0.0 - 1.5 % - March 18, 2024 Eosinophil 4.4 % 0.0 - 7.0 % - March 18, 2024 Monocytes 5.5 % 3.0 - 10.0 % - March 18, 2024 HGB 10.3 g/dL 12.0 - 16.0 g/dL Low March 25, 2024 Hemoglobin x 3 30.9 % 36.0 - 48.0 % Low Februar y 2024 Metabolic/Renal Result Type Result Value Relevant Referen ce Range Interpretation Date Vitamin B12 536 pg/mL 211 - 911 pg/mL - December 18, 2023 Bicarbonate 26 mEq/L 20 - 31 mEq/L - January BUN 68 mg/dL 6 - 19 mg/dL High January 15, 2024 Creatinine, Serum 5.94 mg/dL 0.60 - 1.30 mg/dL High January 22, 2024 Chloride 106 mEq/L 96 - 108 mEq/L - January 112023 BUN, Post 12 mg/dL 6 - 19 mg/dL - January 22, 2024 Potassium 4.9 mEq/L 3.5 - 5.1 mEq/L - January 27, 2024 BUN, Post 18 mg/dL 6 - 19 mg/dL - January 27, 2024 BUN 91 mg/dL 6 - 19 mg/dL High January 27, 2024 URR, Calc 80 % 65 - 80 % - January 26 024 Creatinine, Serum 7.66 mg/dL 0.60 - 1.30 mg/dL High February 06, 2024 Sodium 140 mEq/L 136 - 145 mEq/L - February 06, 2024 Chloride 105 mEq/L 96 - 108 mEq/L - January 122023 Bicarbonate 21 mEq/L 20 - 31 mEq/L - January 122023 URR, Calc 84 % 65 - 80 % High February 18 25 BUN/Creat Ratio 10.9 10.0 - 20.0 - February 19, 2024 Creatinine, Serum 6.42 mg/dL 0.60 - 1.30 mg/dL High February 19, 2024 BUN 70 mg/dL 6 - 19 mg/dL High February 19, 2024 BUN, Post 11 mg/dL 6 - 19 mg/dL - February 19, 2024 BUN 76 mg/dL 6 - 19 mg/dL High February 24, 2024 Creatinine, Serum 7.29 mg/dL 0.60 - 1.30 mg/dL High February 24, 2024 Potassium 5.7 mEq/L 3.5 - 5.1 mEq/L High February 112024 Chloride 100 mEq/L 96 - 108 mEq/L - February BUN/Creat Ratio 10.4 10.0 - 20.0 - February 24, 2024 Sodium 133 mEq/L 136 - 145 mEq/L Low February 112024 Bicarbonate 23 mEq/L 20 - 31 mEq/L - February BUN 59 mg/dL 6 - 19 mg/dL High March 18, 2024 Creatinine, Serum 5.63 mg/dL 0.60 - 1.30 mg/dL High March 18, 2024 BUN/Creat Ratio 10.5 10.0 - 20.0 - March 18, 2024 Sodium 133 mEq/L 136 - 145 mEq/L Low March 18, 2024 Potassium 4.8 mEq/L 3.5 - 5.1 mEq/L - March 18, 2024 Chloride 99 mEq/L 96 - 108 mEq/L - March Bicarbonate 23 mEq/L 20 - 31 mEq/L - March BUN, Post 11 mg/dL 6 - 19 mg/dL - March 18, 2024 URR, Calc 81 % 65 - 80 % High March 18, 2 025 HD Adequacy Result Type Result Value Relevant Referen ce Range Interpretation Date Krt/V 0.00 No Reference Ran ge Provided - October 16, 2023 Krt/V 0.00 No Reference Ran ge Provided - November 13, 2023 Krt/V 0.00 No Reference Ran ge Provided - December 18, 2023 spKt/V (Daugirdas II) 1.88 No Reference Range Provided - January 27, 2024 spKt/V Gotch 1.83 No Reference Ran ge Provided - January 27, 2024 Krt/V 0.00 No Reference Ran ge Provided - January 27, 2024 wstdKt/V, residual 0.0 No Reference Range Provided - January 27, 2024 wstdKt/V 2.6 No Reference Ran ge Provided - January 27, 2024 wstdKt/V without residual 2.6 No Reference Range Provided - January 27, 2024 eKt/V ([place]) 1.55 No Reference Range Provided - January 27, 2024 wstdKt/V 2.7 No Reference Ran ge Provided - February 19, 2024 spKt/V (Daugirdas II) 2.12 No Reference Range Provided - February 19, 2024 Krt/V 0.00 No Reference Ran ge Provided - February 19, 2024 wstdKt/V, residual 0.0 No Reference Range Provided - February 19, 2024 wstdKt/V without residual 2.7 No Reference Range Provided - February 19, 2024 eKt/V ([place]) 1.76 No Reference Range Provided - February 19, 2024 spKt/V Gotch 2.12 No Reference Ran ge Provided - February 19, 2024 wstdKt/V, residual 0.0 No Reference Range Provided - March 18, 2024 wstdKt/V 2.7 No Reference Ran ge Provided - March 18, 2024 spKt/V (Daugirdas II) 2.03 No Reference Range Provided - March 18, 2024 wstdKt/V without residual 2.7 No Reference Range Provided - March 18, 2024 spKt/V Gotch 2.04 No Reference Ran ge Provided - March 18, 2024 eKt/V ([place]) 1.68 No Reference Range Provided - March 18, 2024 Krt/V 0.00 No Reference Ran ge Provided - March 18, 2024 Bone/Mineral Result Type Result Value Relevant Referen ce Range Interpretation Date Magnesium 2.0 mg/dL 1.6 - 2.6 mg/dL - June 11 Magnesium 2.0 mg/dL 1.6 - 2.6 mg/dL - September Magnesium 2.1 mg/dL 1.6 - 2.6 mg/dL - December 18, 2023 Vitamin D 25 Hydroxy 15.7 ng/mL 30.0 - 100.0 ng/mL Low December 18, 2023 PTH-Intact, Plasma 366 pg/mL 16 - 80 pg/mL High Nov 2023 Alkaline Phosphatase 148 U/L 35 - 104 U/L High De [id number] Calcium, Total 8.8 mg/dL 8.7 - 10.4 mg/dL - 2023 Phosphorus 3.8 mg/dL 2.6 - 4.5 mg/dL - January 22, 2024 Ca x P Product 33 0 - 54 - January 112023 PTH-Intact, Plasma 362 pg/mL 16 - 80 pg/mL High Dec ember 2023 Magnesium 2.3 mg/dL 1.6 - 2.6 mg/dL - February 112024 Calcium, Total 8.7 mg/dL 8.7 - 10.4 mg/dL - [id number] Ca x P Product 37 0 - 54 - February Phosphorus 4.2 mg/dL 2.6 - 4.5 mg/dL - February 122024 PTH-Intact, Plasma 177 pg/mL 16 - 80 pg/mL [facility] Feb ruary 2024 Calcium, Total 9.8 mg/dL 8.7 - 10.4 mg/dL - ua2024 Phosphorus 3.7 mg/dL 2.6 - 4.5 mg/dL - March 18, 2024 Ca x P Product 36 0 - 54 - March Alkaline Phosphatase 158 U/L 35 - 104 U/L [facility] Fe bruary 2024 Corrected Ca x P Product 37 0 - - March 18 Magnesium 2.2 mg/dL 1.6 - 2.6 mg/dL - March 18, 2024 Liver/Nutrition Result Type Result Value Relevant Referen ce Range Interpretation Date Albumin (BCG) 3.5 g/dL 3.5 - 5.2 g/dL - 2023 Total Protein 6.5 g/dL 6.0 - 8.5 g/dL - 2023 eNPCR 1.20 No Reference Ran ge Provided - January 27, 2024 eNPCR 1.24 No Reference Ran ge Provided - February 19, 2024 Albumin (BCG) 3.6 g/dL 3.5 - 5.2 g/dL - February 19, 2024 Total Protein 6.5 g/dL 6.0 - 8.5 g/dL - February 19, 2024 A/G Ratio 1.2 1.0 - 2.0 - February 18 Globulin (Calc) 2.9 g/dL 2.0 - 4.0 g/dL - 2024 Total Protein 6.4 g/dL 6.0 - 8.5 g/dL - February 24, 2024 eNPCR 1.08 No Reference Ran ge Provided - March 18, 2024 Total Protein 6.5 g/dL 6.0 - 8.5 g/dL - 2024 Albumin (BCG) 3.8 g/dL 3.5 - 5.2 g/dL - 2024 Globulin (Calc) 2.7 g/dL 2.0 - 4.0 g/dL - 2024 A/G Ratio 1.4 1.0 - 2.0 - March 18 025 Trace Elements Result Type Result Value Relevant Reference Range Interpre tation Date Aluminum 11 mcg/L 0 - 10 mcg/L High December 18, 2023 Infectious Diseases Result Type Result Value Relevant Referen ce Range Interpretation Date Hep B Surface Ab (anti-HBs) 14 mIU/mL No Reference Range Provided - December 18, 2023 Hep B Surface Ag (HBsAg) Negative No Reference Range Provided - February 19, 2024 DIALYSIS PRESCRIPTION Conventional Hemodialysis Data Element Value Order Date/Time January 27, 2024 Frequency 3X Week Treatment Days MonWedFri Dialyzer [id number] Optiflux Treatment Time (Total Minutes) 165 min Blood Flow Rate (mL/min) 450 mL/min Dialysate Flow Rate Autoflow 1.5 Estimated Dry Weight 37.5 kg Dialysate Concentrate 2.0 K, 2.5 Ca, 1.0 Mg, 100 Dextrose (G2251) Sodium (mEq/L) 137 mEq/L Bicarb Machine Setting (mEq/L) 25 mEq/L Dialysis Access Hemodialysis-AV Fist doc-Standard, Left [...] STATUS No Information on Transplant Waitlist Status DIALYSIS TREATMENTS Conventional Hemodialysis Date Pre-Treatment Vitals Post-Treatment Jocelyn ls Duration (hr) BFR (mL/min) Dialysate Dialyzer Dialysis Access Meds Admin 2024 Weight 39.30 kg Weight 37.60 kg 02:44:00 450 2.0 K, 2.5 Ca, 1.0 Mg, 100 Dextrose (G2251) 160nre Optifl ux Blood Pressure-sitting 205/64 mmHg Blood Pressure-sit ting 200/65 mmHg Blood Pressure-standing 206/65 mmHg Blood Pressure-st anding 150/56 mmHg Heart Rate 58 beats per minute Heart Rate 52 beats per minute Respiratory Rate 16 breaths per minute Respiratory Rate 16 breaths per minute Temperature 96.2 deg. F Temperature 97.2 deg. F March 25, 2024 Weight 38.70 kg Weight 37.90 kg 02:46:00 300 2.0 K, 2.5 Ca, 1.0 Mg, 100 Dextrose (G2251) 160nre Optiflux Hemodialysis-AV Fistula-Standard, Left Upper Arm, Brachial Artery to Cephalic Vein Access Placed on March 31, 2018 Heparin Sodium (Porcine) 1,000 Units/mL Systemic; 2000units,Intravenous - push Blood Pressure-sitting 200/70 mmHg Blood Pressure-sit ting 167/56 mmHg Heart Rate 60 beats per minute Blood Pressure-standi ng 149/67 mmHg Respiratory Rate 16 breaths per minute Heart Rate 55 beats per minute Temperature 96.0 deg. F Respiratory Rate 16 breaths per minute - - Temperature 97.2 deg. F March 27, 2024 Weight 39.70 kg Weight 38.10 kg 02:47:00 400 2.0 K, 2.5 Ca, 1.0 Mg, 100 Dextrose (G2251) 160nre Optiflux Hemodialysis-AV Fistula-Standard, Left Upper Arm, Brachial Artery to Cephalic Vein Access Placed on March 31, 2018 Clonidine HCl; 0.1mg,Oral Heparin Sodium (Porcine) 1,000 Units/mL Systemic; 2000units,Intravenous - push Blood Pressure-sitting 239/80 mmHg Blood Pressure-sit ting 185/86 mmHg Heart Rate 69 beats per minute Blood Pressure-standi ng 140/54 mmHg Respiratory Rate 16 breaths per minute Heart Rate 60 beats per minute Temperature 97.4 deg. F Respiratory Rate 16 breaths per minute - - Temperature 96.8 deg. F
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
--- NOTE | 2024-03-30 15:24 | ED_ITS ---
HPI - Altered Mental Status General Time Seen by Provider: 15:24 Date Seen: 03/30/24 Chief Complaint: Altered Mental Status Stated Complaint: Weakness, confusion Time Seen by Provider: 03/30/24 15:24 Source: patient Mode of arrival: ambulatory Limitations: no limitations History of Present Illness HPI narrative: Maricruz is a very pleasant 78-year-old female with history of the kidney failure on dialysis, COPD with continued tobacco use, partial blindness who comes to the emergency room via EMS from dialysis after having an episode of confusion. Maricruz does not know how long it lasted\, but nurse's note upon arrival she is alert and oriented. I do ask Maricruz if she has any pain and she denies that. Specifically no chest pain. She does still make urine has not noted any discomfort with urination. She has not had fever chills or unusual cough. She agrees that she continues to smoke and I do advise her to quit. She denies any recent trauma or falls or hitting her head. She is not currently on blood thinners. Related Data Home Medications ?Medication ?Instructions ?Recorded ?Confirmed albuterol sulfate 2.5 mg/3 mL 2.5 mg Q4H PRN dyspnea 11/28/22 (0.083 %) solution for nebulization amlodipine 10 mg tablet 10 mg PO BID 11/28/22 12/03/23 aspirin 81 mg capsule 81 mg PO DAILY 11/28/22 12/03/23 clonidine HCl 0.1 mg tablet 0.1 mg PO DIRECTED 11/28/22 12/03/23 furosemide 40 mg tablet 40 mg PO QAM 11/28/22 12/03/23 glipizide 10 mg tablet, extended 10 mg PO DAILY 11/28/22 12/03/23 release 24 hr labetalol 300 mg tablet 300 mg PO 3XD 11/28/22 12/03/23 oxycodone 5 mg tablet 5 mg PO BID PRN 11/28/22 12/03/23 repaglinide 1 mg tablet 1 mg PO 3XD 11/28/22 12/03/23 sennosides 8.6 mg tablet (senna) 8.6 - 34.4 mg PO DAILY PRN 11/28/22 12/03/23 sorbitol 70 % solution 30 ml PO DAILY PRN constipation 11/28/22 12/03/23 albuterol sulfate 90 mcg/actuation 2 puff inhalation BID 12/03/23 12/03/23 aerosol inhaler calcium acetate(phosphat bind) 667 1,334 mg PO 3XD 12/03/23 12/03/23 mg capsule dextran 70-hypromellose (PF) 0.1 1 drp ophthalmic (eye) DIRECTED 12/03/23 12/03/23 %-0.3 % eye drops in a dropperette (Bion Tears (PF)) ipratropium 0.5 mg-albuterol 3 mg 3 ml inhalation Q6H PRN dyspnea 12/03/23 12/03/23 (2.5 mg base)/3 mL nebulization soln nifedipine 90 mg tablet,extended 90 mg PO DAILY 12/03/23 12/03/23 release 24 hr pantoprazole 40 mg tablet,delayed 40 mg PO BID 12/03/23 12/03/23 release spironolactone 25 mg tablet 25 mg PO DAILY 12/03/23 12/03/23 umeclidinium 62.5 mcg/actuation 1 inh inhalation DAILY 12/03/23 12/03/23 blister powder for inhalation (Incruse Ellipta) Previous Rx's ?Medication ?Instructions ?Recorded levofloxacin 500 mg tablet 500 mg PO .QOD 10 days #5 tabs 12/03/23 meclizine 25 mg tablet 25 mg PO BID PRN #10 tabs 01/13/24 Allergies Allergy/AdvReac Type Severity Reaction Status Date / Time atenolol Allergy Unknown Rash Verified 12/03/23 19:43 atorvastatin (From Lipitor) Allergy Unknown Verified 12/03/23 19:43 cat dander Allergy Unknown Difficulty Verified 12/03/23 19:43 Breathing dog dander Allergy Unknown Sneezing Verified 12/03/23 19:43 zarco Allergy Unknown Edema Verified 12/03/23 19:43 gemfibrozil Allergy Unknown Verified 12/03/23 19:43 hydrochlorothiazide Allergy Unknown Rash Verified 12/03/23 19:43 losartan Allergy Unknown Verified 12/03/23 19:43 niacin Allergy Unknown Verified 12/03/23 19:43 oak Allergy Unknown Rash Verified 12/03/23 19:43 pioglitazone Allergy Unknown Verified 12/03/23 19:43 ampicillin Allergy Hives Verified 12/03/23 19:43 dulaglutide (From Trulicity) AdvReac Unknown Vomiting Verified 12/03/23 19:43 pravastatin AdvReac Unknown Verified 12/03/23 19:43 simvastatin AdvReac Unknown Verified 12/03/23 19:43 gatifloxacin (From Tequin) AdvReac Nausea Verified 12/03/23 19:43 lisinopril AdvReac Cough Verified 12/03/23 19:43 Review of Systems Status of ROS: Reports: 10 or more systems reviewed and unremarkable except as noted in History and below and unobtainable due to medical condition Narrative: Attempts at review of systems. I do think that there is a residual level of confusion and I am not entirely sure about the validity of patient's answers to all my questions. Const: Reports: fatigue; Denies: fever or chills Eyes: Denies: change in vision ENMT: Denies: throat pain, neck pain or nasal congestion Cardio: Denies: chest pain, swelling of feet/ankles, lightheadedness or shortness of breath with exertion Resp: Reports: cough; Denies: shortness of breath GI: Denies: abdominal pain, vomiting or diarrhea : Denies: painful urination Musculo: Denies: neck pain Neuro: Denies: headache Endo: Reports: fatigue PFSH PFSH Social History Smoking Status: Current some day smoker What tobacco products do you use: cigarettes Do you use any of these nicotine containing products: None Second hand tobacco smoke exposure: No How often do you have a drink containing alcohol: never AUDIT-C Alcohol total score: 0 Non-prescribed substance use: denies use Exam Narrative: Exam Narrative: Maricruz is awake alert to time self place. She is able to tell me her address as well as her date. However, she is slow to follow some of my commands. She has an opaqueness of her left cornea. Otherwise her right EOM is full. She is able to tell me that I am holding 2 fingers up which is correct. Head is atraumatic. No drainage from the ears. Face symmetrical with eyebrow raise and smile. Neck is supple. Patient is very cachectic and thin in appearance. Heart is with regular rate and rhythm. Lungs show expiratory wheezing smile bilaterally. Abdomen soft nontender. She is moving all of her extremities. She seems to have decreased strength in her right arm but again I this is mostly from effort and she seems somewhat confused at my request. Const: Vital Signs, click to edit/add: Vital Signs - 24 hr 03/30/24 15:04 03/30/24 15:33 Temperature 97.5 F L Pulse Rate [Pulse Oximeter] 73 Respiratory Rate 16 Blood Pressure [Ri ght Upper Arm] 147/95 H Pulse Oximetry 92 94 Oxygen Delivery Me thod Room Air Documenting provider has reviewed patient's vital signs: yes Course Course ED Course: Differential diagnosis includes but is not limited to hypotensive episode, stroke, UTI, acute coronary event, electrolyte imbalances, pneumonia. Maricruz thinks they were able to complete her full dialysis today. Will check a CBC, comprehensive panel, troponin, CRP, urinalysis, chest x-ray EKG cardiac monitoring and head CT. Reevaluation(s) Reevaluation #1: Patient noted to have reassuring EKG, normal electrolytes. Creatinine 3.0 with recent dialysis. Head CT without evidence of acute stroke. Chest x-ray shows increased lung markings concerning for pneumonia. Urinalysis, COVID influenza and RSV pending. Patient looking improved. Vital Signs Vital signs: Initial Vital Signs Temperature 97.5 F L 03/30/24 15:04 Temperature Source Temporal Artery Scan 03/30/24 15:04 Pulse Rate 73 03/30/24 15:04 Respiratory Rate 16 03/30/24 15:04 Blood Pressure 147/95 H 03/30/24 15:04 Blood Pressure Mean 112 H 03/30/24 15:04 Pulse Oximetry 92 03/30/24 15:04 Oxygen Delivery Method Room Air 03/30/24 15:04 Vital Signs Temperature 97.5 F L 03/30/24 15:04 Pulse Rate 73 03/30/24 15:04 Respiratory Rate 16 03/30/24 15:04 Blood Pressure 147/95 H 03/30/24 15:04 Pulse Oximetry 92 03/30/24 15:04 Oxygen Delivery Method Room Air 03/30/24 15:04 Temperature 97.5 F L 03/30/24 15:04 Pulse Rate 73 03/30/24 15:04 Respiratory Rate 16 03/30/24 15:04 Blood Pressure 147/95 H 03/30/24 15:04 Pulse Oximetry 94 03/30/24 15:33 Oxygen Delivery Method Room Air 03/30/24 15:04 Medications Administered Medications: Discontinued Medications Generic Name Dose Route Start Last Admin Trade Name Ankur PRN Reason Stop Dose Admin Azithromycin 500 mg 03/30/24 17:38 03/30/24 17:53 Azithromycin 250 Mg Tablet PO 03/30/24 17:39 500 mg ONCE ONE Administration Ceftriaxone Sodium 1 gm/ 100 mls @ 200 mls/hr 03/30/24 17:13 03/30/24 17:53 Sodium Chloride IVPB 03/30/24 17:14 200 mls/hr ONCE ONE Administration MDM - Altered Mental Status MDM Narrative Medical decision making narrative: 1. Episodic confusion-this has improved and I believe she is back to baseline. Head CT reassuring with no evidence of stroke. Patient denies any recent trauma. Initially also ordered alcohol which was negative and drug screen given the confusion but believe the confusion is more likely to represent underlying infection. 2. Pneumonia-identified on x-ray and certainly patient does have some crackles especially in the lung bases. Treated with Rocephin 1 g IV and Zithromax 500 mg p.o.. No evidence of sepsis at this time. Complicated by underlying COPD and continued tobacco use. 3. Renal failure with dialysis-unfortunately unable to admit patient because of need for dialysis even though this was done today. Potassium normal. Creatinine 3.0. 4. Possible UTI- Patient does still make urine and urinalysis does suggest UTI with white cells and leukocyte esterase but could certainly be contaminated as she has many squamous epithelial cells and she is negative for nitrites. 5. Cachexia with nutritional concerns 6. Disposition- patient has been accepted at [facility] in the [facility] by Dr. Thacker. Prior to our discussion urinalysis had not been returned. Possibility of a UTI and culture is pending.. Feel confident that Rocephin would also treat this infection. Patient will be ground ambulance BLS transport to [facility] in [place]. I did have the pleasure of speaking to Maricruz sister Nkechi. Her phone number is [phone]. Maricruz also lives with her 2 sons Deon and Tres in the [place] area. Medical Records Attestation: I reviewed the patient's medical records. Lab Data Attestation: I reviewed the patient's lab results. Labs: Lab Results 03/30/24 03/30/24 03/30/24 Range/Units 15:32 15:57 15:57 WBC 10.23 (4.50-11.00) K/uL RBC 3.47 L (4.00-5.20) m/uL Hgb 9.9 L (12.0-16.0) gm/dL Hct 32.3 L (33.0-51.0) % MCV 93 (80-100) fL MCH 29 (26-34) pg MCHC 31 L (32-36) gm/dL RDW Coeff of Margaret 17.4 H (11.5-15.5) % Plt Count 240 (140-440) K/uL Neut % (Auto) 88.6 H (42.0-72.0) % Lymph % (Auto) 4.4 L (20-44) % Reeves % (Auto) 4.2 (0.0-11.0) % Eos % (Auto) 2.2 (0.0-7.0) % Baso % (Auto) 0.4 (0.0-3.0) % Neut # (Auto) 9.10 H (1.7-7.0) K/uL Lymph # (Auto) 0.50 L (0.90-2.90) K/uL Reeves # (Auto) 0.40 (0.00-0.90) K/UL Eos # (Auto) 0.23 (0.00-0.50) K/uL Baso # (Auto) 0.04 (0.00-0.30) K/uL Abs Immat Gran (auto) 0.02 (0.00-0.30) K/uL Imm/Tot Granulo (auto) 0.2 % Sodium 134 L (135-149) mmol/L Potassium 3.7 (3.6-5.1) mmol/L Chloride 102 (96-114) mmol/L Carbon Dioxide 21 (20-32) mmol/L Anion Gap 11 (7-15) mEq/L BUN 32 H (7-30) mg/dL Creatinine 3.0 H (0.5-1.5) mg/dL Estimated GFR 16 ml/min Glucose 183 H (60-115) mg/dL Calcium 9.2 (8.4-10.6) mg/dL Magnesium 2.2 Cancelled (1.5-2.6) mg/dL Total Bilirubin 0.4 (0.1-1.5) mg/dL AST 26 (12-35) U/L ALT 19 (4-35) U/L Alkaline Phosphatase 136 (40-150) U/L C-Reactive Protein 1.1 H (0.5-1.0) mg/dL Total Protein 7.1 (6.0-8.3) g/dL Albumin 4.1 (3.3-5.0) g/dL Urine Color (Yellow) Urine Appearance (Clear) Urine pH (5.0-8.5) Ur Specific Welch (1.000-1.030) Urine Protein (Negative) Urine Glucose (UA) (Negative) Urine Ketones (Negative) Urine Blood (Negative) Urine Nitrite (Negative) Urine Bilirubin (Negative) Urine Urobilinogen (0.2-1.0) Ur Leukocyte Esterase (Negative) Urine RBC (0-2) Urine WBC (0-5) Ur Squamous Epith Cells (None-Few) Amorphous Sediment (None) Urine Bacteria (None) Hyaline Casts (None-Few) Fine Granular Casts (None) Ur Drug Screen Comment Ethyl Alcohol < 0.00 L (0.01-0.03) % SARS-CoV-2 (PCR) Negative SARS-CoV-2 (Negative) Influenza Type A (PCR) Negative PCR FLU A (Negative) Influenza Type B (PCR) Negative PCR FLU B (Negative) RSV (PCR) Negative PCR RSV (Negative) Lab Acknowledgement POC Troponin I 0.00 L (0.01-0.04) ng/ml 03/30/24 03/30/24 Range/Units 16:18 17:21 WBC (4.50-11.00) K/uL RBC (4.00-5.20) m/uL Hgb (12.0-16.0) gm/dL Hct (33.0-51.0) % MCV (80-100) fL MCH (26-34) pg MCHC (32-36) gm/dL RDW Coeff of Margaret (11.5-15.5) % Plt Count (140-440) K/uL Neut % (Auto) (42.0-72.0) % Lymph % (Auto) (20-44) % Reeves % (Auto) (0.0-11.0) % Eos % (Auto) (0.0-7.0) % Baso % (Auto) (0.0-3.0) % Neut # (Auto) (1.7-7.0) K/uL Lymph # (Auto) (0.90-2.90) K/uL Reeves # (Auto) (0.00-0.90) K/UL Eos # (Auto) (0.00-0.50) K/uL Baso # (Auto) (0.00-0.30) K/uL Abs Immat Gran (auto) (0.00-0.30) K/uL Imm/Tot Granulo (auto) % Sodium (135-149) mmol/L Potassium (3.6-5.1) mmol/L Chloride (96-114) mmol/L Carbon Dioxide (20-32) mmol/L Anion Gap (7-15) mEq/L BUN (7-30) mg/dL Creatinine (0.5-1.5) mg/dL Estimated GFR ml/min Glucose (60-115) mg/dL Calcium (8.4-10.6) mg/dL Magnesium (1.5-2.6) mg/dL Total Bilirubin (0.1-1.5) mg/dL AST (12-35) U/L ALT (4-35) U/L Alkaline Phosphatase (40-150) U/L C-Reactive Protein (0.5-1.0) mg/dL Total Protein (6.0-8.3) g/dL Albumin (3.3-5.0) g/dL Urine Color Yellow (Yellow) Urine Appearance Cloudy A (Clear) Urine pH 5.5 (5.0-8.5) Ur Specific Welch 1.025 (1.000-1.030) Urine Protein 3+ A (Negative) Urine Glucose (UA) Trace A (Negative) Urine Ketones Trace A (Negative) Urine Blood 1+ A (Negative) Urine Nitrite Negative (Negative) Urine Bilirubin 1+ A (Negative) Urine Urobilinogen 0.2 (0.2-1.0) Ur Leukocyte Esterase 1+ A (Negative) Urine RBC 2-5 A (0-2) Urine WBC 25-50 A (0-5) Ur Squamous Epith Cells Many A (None-Few) Amorphous Sediment Many A (None) Urine Bacteria Many A (None) Hyaline Casts Few (None-Few) Fine Granular Casts Few A (None) Ur Drug Screen Comment See Note Ethyl Alcohol (0.01-0.03) % SARS-CoV-2 (PCR) (Negative) Influenza Type A (PCR) (Negative) Influenza Type B (PCR) (Negative) RSV (PCR) (Negative) Lab Acknowledgement Test Added POC Troponin I (0.01-0.04) ng/ml Imaging Data Chest x-ray: Attestation: I have reviewed the pertinent imaging results. My impression: Increased perihilar lung markings, question left upper lobe infiltrate. Radiologist's impression: The heart is normal in size. Mild pulmonary vascular congestion. Left suprahilar opacity, concerning for pneumonia in the appropriate clinical context and some faint diffuse interstitial markings, may be secondary to pulmonary edema versus an acute infectious/inflammatory process. There is no pleural effusion or pneumothorax. No displaced fractures. CT scan - head: Attestation: I have reviewed the pertinent imaging results. My impression: No obvious acute stroke Radiologist's impression: No loss of altamirano-white differentiation to suggest recent territorial infarct. No intracranial hemorrhage, abnormal extra-axial fluid collection, hydrocephalus or midline shift. The ventricles and cerebral sulci are prominent in caliber, compatible with mild generalized parenchymal volume loss. There is ill-defined hypoattenuation of the supratentorial white matter diffusely, nonspecific but consistent with chronic microvascular ischemic changes. The basal cisterns are patent. The paranasal sinuses and mastoid air cells remain clear. The orbits and calvarium are unremarkable. The cerebellar tonsils are normal position. IMPRESSION: No acute intracranial findings. ECG Data Attestation: I personally reviewed and interpreted this ECG as follows: ECG interpretation date: 03/30/24 ECG interpretation time: 16:19 Interpretation: EKG by my read shows sinus rhythm at a rate of 69. No acute ST or T-wave changes are noted. QT and MS intervals within normal limits. Discharge Plan Discharge Clinical Impression: Pneumonia, Altered mental state, Dialysis patient Patient Disposition: [facility] Discharge Location: [facility] Condition: Improved
--- NOTE | 2024-03-30 15:32 | CRLHL7_ITS ---
For Patients: As a result of the Cures Act, medical imaging exams and procedure reports are released immediately into your electronic medical record. You may view this report before your referring provider. If you have questions, please contact your health care provider. INDICATION: : Confusion COMPARISON: Chest radiograph on December 03, 2023 and prior studies TECHNIQUE: One view(s) of the chest FINDINGS/IMPRESSION: The heart is normal in size. Mild pulmonary vascular congestion. Left suprahilar opacity, concerning for pneumonia in the appropriate clinical context and some faint diffuse interstitial markings, may be secondary to pulmonary edema versus an acute infectious/inflammatory process. There is no pleural effusion or pneumothorax. No displaced fractures. Dictated by Dejuan Harris MD @ 03/30/2024 4:40:16 PM (Electronically Signed)
--- OUTSIDE RECORDS SUMMARY | 2024-03-30 15:41 | XMS_ITS | Encounter Summary ---
Author Organization [facility] Address [address] [place] [id number] Care Team Providers Care Shop Helper Name Role Phone Unavailable Primary Care Provider Unavailabl e Encounter Details Date Type Department Care Team (Late st Contact Info) Description 07/12/2016 Historical Ophthalmology [facility] Deann Colby M.D. [address] [place] [phone] Social History Tobacco Use Types Packs/Day Years Used Date Smoking Tobacco: Never Assessed Comments Unknown Sex and Gender Information Value Date Recorded Sex Assigned at Not on file Legal Sex Female 10:27 PM REPAIR OPERATOR Gender Identity Female 01/08/2022 2:47 PM REPAIR OPERATOR Sexual Orientation Straight 01/08/2022 2: 47 PM REPAIR OPERATOR documented as of this encounter Progress [...] today nearly 1 year after surgery with SET OFF BLOCKER. Exam is stable with 1 loose suture. IOP stable. Removed 11 sutures in total today. Continue prednisolone 1 x daily. Refresh tears 4x daily. RTC 4-6 weeks with refraction when Dr. Payton is in clinic. 12 Jul 2016: Seen with SET OFF BLOCKER. Exam stable with 1 loose suture. IOP [...] sent to Benigno Bishop, OD, FAAO at [facility] who also cares for Ms. Vanegas. Recommend he recheck IOP and visual acuity in 4 months. 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 Return to [facility] PRN. #2 Background diabetic retinopathy, right eye [...] right eye CDM Reports - EYEGEN Id: [id number] Status: Fnl documented in this encounter Plan of Treatment Not on file documented as of this encounter Visit Diagnoses Not on filedocumented in this encounter
--- OUTSIDE RECORDS SUMMARY | 2024-03-30 15:41 | XMS_ITS | Encounter Summary ---
Author Organization [facility] Address [address] [place] [id number] Care Team Providers Care Loading And Unloading Supervisor Name Role Phone Unavailable Primary Care Provider Unavailabl e Encounter Details Date Type Department Care Team (Late st Contact Info) Description 09/26/2015 Historical Ophthalmology [facility] Deann Colby M.D. 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 26 Sep 2015: Corneal edema continues [...] vision, worsening concerns. Must come in when [employer] is here. Use fluorescein strips only, not [...] right eye CDM Reports - EYEGEN Id: [id number] Status: Fnl documented in this encounter Plan of Treatment Not on file documented as of this encounter Visit Diagnoses Not on filedocumented in this encounter
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
--- OUTSIDE RECORDS SUMMARY | 2024-03-30 15:41 | XMS_ITS | Encounter Summary ---
Author Organization [facility] Address [address] [place] [address] Care Team Providers Care Line Operator Name Role Phone Unavailable Primary Care Provider Unavailabl e Encounter Details Date Type Department Care Team (Late st Contact Info) Description 07/12/2015 Historical Ophthalmology [facility] Eva Heard M.D. [address] [facility] [address] [place] [phone] Social History Tobacco Use Types Packs/Day Years Used Date Smoking Tobacco: Never Assessed Comments Unknown Sex and Gender Information Value Date Recorded Sex Assigned at Not on file Legal Sex Female 10:27 PM ROVING DEPARTMENT END FINDER Gender Identity Female 01/08/2022 2:47 PM ROVING DEPARTMENT END FINDER Sexual Orientation Straight 01/08/2022 2: 47 PM ROVING DEPARTMENT END FINDER documented as of this encounter Progress Notes [...] intra-op intravitreal vancomycin and ceftazadime Seen with UROLOGIC SURGEON today. 06/13/15: Paul negative. Well formed chamber, with normal IOP. Graft and sutures intact. Suture reaction most significant inferiorly, will continue pred forte TID and consider suture removal inferiorly at next visit. 06/16/15: Paul negative, formed chamber, suture reaction on all original graft sutures, no loose sutures, discussed with LJM, continue current drops and return next week when UROLOGIC SURGEON here. Seen with SCB today. 06/20/15: Paul negative, formed chamber, suture reaction decreased, seen with UROLOGIC SURGEON, M Parasol occluder placed in left lower puncum, expires 2018, LOT [id number] 06/27/15: Paul negative, increased edema over snowman [...] Monocular status CDM Reports - EYEGEN Id: [id number] Status: Fnl documented in this encounter Plan of Treatment Not on file documented as of this encounter Visit Diagnoses Not on filedocumented in this encounter
--- OUTSIDE RECORDS SUMMARY | 2024-03-30 15:41 | XMS_ITS | Encounter Summary ---
Author Organization [facility] Address [address] [place] [address] Care Team Providers Care Buttonhole Facer Name Role Phone Unavailable Primary Care Provider Unavailabl e Encounter Details Date Type Department Care Team (Late st Contact Info) Description 07/18/2015 Historical Ophthalmology [facility] O[facility] Eva Heard M.D. [address] [facility] [address] [place] [phone] Social History Tobacco Use Types Packs/Day Years Used Date Smoking Tobacco: Never Assessed Comments Unknown Sex and Gender Information Value Date Recorded Sex Assigned at Not on file Legal Sex Female 10:27 PM SLEEVE SEWER Gender Identity Female 01/08/2022 2:47 PM SLEEVE SEWER Sexual Orientation Straight 01/08/2022 2: 47 PM SLEEVE SEWER documented as of this encounter Progress Notes [...] intra-op intravitreal vancomycin and ceftazadime Seen with PLUMBING AND HEATING CONTRACTOR today. 06/13/15: Paul negative. Well formed chamber, with normal IOP. Graft and sutures intact. Suture reaction most significant inferiorly, will continue pred forte TID and consider suture removal inferiorly at next visit. 06/16/15: Paul negative, formed chamber, suture reaction on all original graft sutures, no loose sutures, discussed with LJM, continue current drops and return next week when PLUMBING AND HEATING CONTRACTOR here. Seen with SCB today. 06/20/15: Paul negative, formed chamber, suture reaction decreased, seen with PLUMBING AND HEATING CONTRACTOR, M Paras[facility], LOT [id number] 06/27/15: Paul negative, increased edema over snowman [...] Monocular status CDM Reports - EYEGEN Id: [id number] Status: Fnl documented in this encounter Plan of Treatment Not on file documented as of this encounter Visit Diagnoses Not on filedocumented in this encounter
--- OUTSIDE RECORDS SUMMARY | 2024-03-30 15:41 | XMS_ITS | Encounter Summary ---
Author Organization [facility] Address [address] [place] [address] Care Team Providers Care Equip Maint Eng Name Role Phone Unavailable Primary Care Provider Unavailabl e Encounter Details Date Type Department Care Team (Late st Contact Info) Description 06/11/2016 Historical Ophthalmology [facility] Deann Colby M.D. [address] [place] [phone] Social History Tobacco Use Types Packs/Day Years Used Date Smoking Tobacco: Never Assessed Comments Unknown Sex and Gender Information Value Date Recorded Sex Assigned at Not on file Legal Sex Female 10:27 PM CHILD PROTECTIVE SERVICES SOCIAL WORKER Gender Identity Female 01/08/2022 2:47 PM CHILD PROTECTIVE SERVICES SOCIAL WORKER Sexual Orientation Straight 01/08/2022 2: 47 PM CHILD PROTECTIVE SERVICES SOCIAL WORKER documented as of this encounter Progress [...] today nearly 1 year after surgery with PROCESSING INSPECTOR. Exam is stable with 1 loose suture. [...] right eye CDM Reports - EYEGEN Id: [id number] Status: Fnl documented in this encounter Plan of Treatment Not on file documented as of this encounter Visit Diagnoses Not on filedocumented in this encounter
--- OUTSIDE RECORDS SUMMARY | 2024-03-30 15:41 | XMS_ITS | Clinical Summary ---
Author Organization [facility] Address [address] [place] [address] Care Team Providers Care Reach Lift Truck Driver Name Role Phone Unavailable Primary Care Provider Unavailabl e Source Comments Patient records contain information from all sites at [facility]. For routine questions regarding patient records, call [phone] during business hours, M-F 8:00 AM - 5:00 PM Central Time. Record requests for emergency care only can be directed to [phone] at any time.[facility] Allergies Active Allergy Reactions Criticality Noted Date [...] Itching 01/09/2010 itching Niacin Itching 05/13/2006 itch [place] Rash 05/16/2010 [place] 6-Rod-Zqh-Fish Oil Other (see comments) 01/09/2010 itching Pioglitazone [...] 1 tablet by mouth daily. 7 Active cholecalcifero l, vitamin D3, 25 mcg [...] 20 mg by mouth. 9 Active hyoscyamine (ANASPAZ,LEVSI N) 0.125 mg tablet Take by mouth. 7 Active ipratropium-al buteroL (DUONEB) 0.5-2.5 mg/3 mL nebulizer solution Inhale 3 mL every 6 (six) hours as needed. 1 Active labetaloL (NORMODYNE) 300 mg tablet Take 1 tablet by mouth. 9 Active lidocaine-pril ocaine (EMLA) 2.5-2.5 % cream APPLY SMALL AMOUNT TO ACCESS SITE (AVF) 1 TO 2 HOURS BEFORE DIALYSIS. COVER WITH OCCLUSIVE DRESSING (SARAN WRAP) 9 Active metFORMIN (GLUCOPHAGE) 1,000 mg tablet Take 1 tablet by mouth 2 (two) times a day. 6 Active white petrolatum-min eral oiL (Refresh P.M.) [...] on file. 14 patch 5 2 Active neomycin-polym yxin B-dexameth (MAXITROL) 3.5 mg/g-10,000 unit/g-0.1 % ophthalmic ointment Instill a 1/4 inch ribbon into the left eye four times daily* 3 Active mupirocin (BACTROBAN) 2 % ointment APPLY TO PD EXIT SITE DAILY* 3 Active moxifloxacin (VIGAMOX) 0.5 % ophthalmic solution Administer 1 drop into the left eye. 3 Active polyvinyl alcohol (Artificial Tears, polyvin alc,) 1.4 % ophthalmic solution Administer 1 drop into both eyes every hour while awake. 15 mL 11 4 Active dextran 70-hypromellos e, PF, (GENTEAL TEARS) 0.1-0.3 % ophthalmic solution Administer 1 drop into both eyes every hour while awake. 36 each 11 4 Active erythromycin (Romycin) 5 mg/gram (0.5 %) ophthalmic ointment APPLY TOPICALLY TO LEFT EYE 4 TIMES A DAY 3.5 g 5 Active erythromycin (Romycin) 5 mg/gram (0.5 %) ophthalmic ointment Apply to left eye 4 (four) times a day 3.5 g 4 03/03/19 25 Discontinu ed(Reorder ) Active Problems Problem Noted Date Diagnosed Date Diabetes Mellitus Type 2 04/25/2021 Overview (04/25/2021): A1C 7.0 09/15 Spinal Stenosis Lumbosacral Region 04/25/2021 Overview (04/25/2021): Added automatically from request for surgery [id number] Major Depressive Disorder, Recurrent, Unspecifie d 03/22/2021 Anemia In Chronic Kidney Disease 04/18/2018 Chronic Obstructive Pulmonary Disease 04/18/2018 Failure Renal End Stage 04/18/2018 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 Med Refill 02/07/2024 Refill Department of Ophthalmology in [place], [place] [address] [place] [phone] Luma Solis M.D., M.S. Med Refill from Last 3 Months Immunizations Immunization Administration Dates Next Due Influenza Split 10/12/2014 [...] on file Legal Sex Female 10:27 PM LIEUTENANT SHIFT SUPERVISOR Gender Identity Female 01/08/2022 2:47 PM LIEUTENANT SHIFT SUPERVISOR Sexual Orientation Straight 01/08/2022 2: 47 PM LIEUTENANT SHIFT SUPERVISOR Last Filed Vital Signs Vital Sign Reading [...] years (1 - 1-dose 75+ series) 08/30/2022 Hemoglobin A1C 01/09/2024 07/09/2023, 10/0 05/2022, 04/10/2022, Additional history exists Depression Monitoring (PHQ-9 for quality tracking) 02/12/2024 Fall Risk Screen (Annual) 02/12/2024 Creatinine Level (Kidney Function Test) 02/22/2024 02/21/2023, 02/20/2023, 02/19/2023, Additional history exists Potassium Level 02/22/2024 02/21/2023, 02/11, 02/19/2023, Additional history exists Sodium Level 02/22/2024 02/21/2023, 02/11, 02/19/2023, Additional history exists COVID-19 Vaccine () 05/22/2024 11/22/2023, 12/25/2022, 10/25/2021, Additional history exists Dilated Eye Exam 08/21/2024 08/22/2023, , 07/04/2023, Additional history exists Bone Density Scan (Osteoporosis Screen) Discontinued 04/12/2016 Colonoscopy Discontinued 07/04/2020 Colorectal Cancer Screening Discontinued Pneumococcal vaccine (50+ years) Completed 04/10/2022, 06/22/2014, 12/31/2012, Additional history exists Mammogram Discontinued 05/22/2022, 12/13, 01/01/2019, Additional history exists Influenza Vaccine Completed 11/22/2023, , 10/25/2021, Additional history exists CT Colonography Discontinued Cologuard Discontinued FIT Discontinued IPV Vaccines Aged Out No longer eligi ble based on patient's age to complete this topic Medical Devices Implanted Type Area Inseminator Device Identifier Shelf Expiration Date Model / Serial / Lot Cornea [id number] [id number] Implanted:Qty: 1 on 05/13/2015 Ocular (Eye) Implant Other/Legacy - See Implant Description [place] [employer] [facility] Description:Device Manufactu rer - [place] [employer]. Body Location - Other. Left. Device Status Text - [id number]. Cornea - [id number] [id number] Implanted:Qty: 1 on 06/10/2015 Ocular (Eye) Implant Other/Legacy - See Implant Description [place] [employer] [facility] Description:Device Manufactu rer - [place] [employer]. Body Location - Other. Left. Device Status Text - [id number]. Procedures Procedure Name Priority Date/Time Associated Diagnosis [...] In System IMG NON RAD IMAGING PROCE TR Final Result IIMS NA * (ABNORMAL) Hemoglobin A1c (05/13/2015 11:31 PM CDT) Hemoglobin A1c, B 8.1(H) 4.0 - 6.0 % [facility] 05/13/2015 11:3 1 PM CDT 05/13/2015 11:31 PM CDT Frantz Lee M.D. LAB BLOOD ADD-ON Final Resu lt Performing Organization Address [facility] Co de Phone Number [facility] [address] * (ABNORMAL) Creatinine with Estimated GFR (MDRD) (05/11/2015 11:42 AM CDT) Creatinine 1.3(H) 0.6 - 1.1 MG/DL [facility] eGFR Non-Black/Afric an Moroccan 41(L) >60 ML/MIN/BSA [facility] eGFR-Black/Afri can Moroccan 49(L) >60 ML/MIN/BSA [facility] 05/11/2015 11:4 2 AM CDT 05/11/2015 11:42 AM CDT us Frantz Lee M.D. LAB BLOOD ADD-ON Final Resu lt Performing Organization Address [facility] Co de Phone Number [facility] [address] from Last 3 Months or Most Recently Relevant to Health Maintenance Insurance [facility] MEDICARE
--- OUTSIDE RECORDS SUMMARY | 2024-03-30 15:41 | XMS_ITS | Clinical Summary ---
Author Organization [facility] Address [address] [place] [address] Care Team Providers Care Health Program Director Name Role Phone Tyrell Schneider Primary Care Provider [phone] Allergies Active Allergy Reactions Criticality Noted Date [...] 01/09/2010 itching Niacin Rash,Itching Low 05/13/2006 itch [place] Rash Low 05/16/2010 Oxycodone Nausea and [...] times daily 3 Active neomycin-polymyx in-dexAMETHasone (MAXITROL) 3.5-80943-3.[address] 0.25 inches Into the [...] Comments Blood Pressure 166/77 02/21/2023 3:58 PM WASHER OFF Pulse 64 02/21/2023 3:58 PM WASHER OFF Temperature 36.9 C (98.4 F) 02/21/2023 3:58 PM WASHER OFF Respiratory Rate 18 02/21/2023 3:58 PM WASHER OFF Oxygen Saturation 99% 02/21/2023 3:58 PM WASHER OFF Inhaled Oxygen Concentration - - Weight 40.8 kg (90 lb) 02/20/2023 8:47 PM WASHER OFF Height 154.9 cm (5' 1) 12/13/2022 3:15 [...] WITH PLATELETS Routine 02/21/2023 8: 16 AM WASHER OFF BASIC METABOLIC PANEL Routine 02/21/2023 8:16 AM WASHER OFF GLUCOSE BY METER Routine 02/21/2023 1:08 AM WASHER OFF COMPREHENSIVE METABOLIC PANEL STAT 02/20/2023 8:52 AM WASHER OFF RENAL PANEL Routine 12/18/2022 8:45 AM WASHER OFF OCCULT BLOOD STOOL STAT 12/12/2022 11 :03 PM CDT from Last 3 Months or Most Recently Relevant to Health Maintenance Results * (ABNORMAL) Basic metabolic panel (02/21/2023 8:16 AM WASHER OFF) Sodium 134(L) 135 - 145 mmol/L 02/21/2023 8:55 AM [facility] Comment:Reference intervals for this test were updated on 11/06/2022 to more accurately reflect our healthy population. There may be differences in the flagging of prior results with similar values performed with this method. Interpretation of those prior results can be made in the context of the updated reference intervals. Potassium 4.0 3.4 - 5.3 mmol/L 02/21/2023 8:55 AM [facility] Chloride 97(L) 98 - 107 mmol/L 02/21/2023 8:55 AM [facility] Carbon Dioxide (CO2) 28 22 - 29 mmol/L 02/21/2023 8:55 AM [facility] Anion Gap 9 7 - 15 mmol/L 02/21/2023 8:55 AM [facility] Urea Nitrogen 12.8 8.0 - 23.0 mg/dL 02/21/2023 8:55 AM [facility] Creatinine 2.49(H) 0.51 - 0.95 mg/dL 02/21/2023 8:55 AM [facility] GFR Estimate 20(L) >60 mL/min/1. 73m2 02/21/2023 8:55 AM [facility] Calcium 8.6(L) 8.8 - 10.2 mg/dL 02/21/2023 8:55 AM [facility] Glucose 144(H) 70 - 99 mg/dL 02/21/2023 8:55 AM [facility] Blood STRUCTURE OF RIGHT HAND / Unknown Venipuncture / Unknown 02/21/2023 8:16 AM WASHER OFF 02/21/2023 8:34 AM [facility] us Nidia Yanez DO LAB - BLOOD ORDERABLES Fi nal Result LABORATORY [facility] [address] Lab (1st floor, no room number) [place] [address], [facility] [phone] * (ABNORMAL) CBC with platelets (02/21/2023 8:16 AM WASHER OFF) WBC Count 6.6 4.0 - 11.0 10e3/uL 02/21/2023 8:39 AM WASHER OFF [facility] LAB[facility]ATORY RBC Count 4.43 3.80 - 5.20 10e6/uL 02/21/2023 8:39 AM [facility] Hemoglobin 12.3 11.7 - 15.7 g/dL 02/21/2023 8:39 AM [facility] Hematocrit 39.2 35.0 - 47.0 % 02/21/2023 8:39 AM [facility] MCV 89 78 - 100 fL 02/21/2023 8:39 AM [facility] MCH 27.8 26.5 - 33.0 pg 02/21/2023 8:39 AM [facility] MCHC 31.4(L) 31.5 - 36.5 g/dL 02/21/2023 8:39 AM [facility] RDW 19.3(H) 10.0 - 15.0 % 02/21/2023 8:39 AM [facility] Platelet Count 292 150 - 450 10e3/uL 02/21/2023 8:39 AM [facility] Blood STRUCTURE OF RIGHT HAND / Unknown Venipuncture / Unknown 02/21/2023 8:16 AM WASHER OFF 02/21/2023 8:34 AM WASHER OFF us Nidia Yanez DO LAB - BLOOD ORDERABLES Fi nal Result [facility] Lab [address] Lab (1st floor, no room number) [place] [address], [facility] [phone] * (ABNORMAL) Glucose by meter (02/21/2023 1:08 AM WASHER OFF) [facility] GLUCOSE BY METER POCT 131(H) 70 - 99 mg/dL 02/21/2023 1:17 AM WASHER OFF LABORATORY POC Blood, Capillary BLOOD SPECIMEN / Unknown 02/21/2023 1:08 AM WASHER OFF 02/21/2023 1:17 AM WASHER OFF us Joseph Jeffers MD LAB - BEAKER POCT Final R esult [facility] Lab [address] Lab (1st floor, no room number) [place] [address], [facility] [phone] * (ABNORMAL) Comprehensive metabolic panel (02/20/2023 8:52 AM WASHER OFF) [facility] Sodium 135 135 - 145 mmol/L 02/20/2023 9:27 AM [facility] Comment:Reference intervals for this test were updated on 11/06/2022 to more accurately reflect our healthy population. There may be differences in the flagging of prior results with similar values performed with this method. Interpretation of those prior results can be made in the context of the updated reference intervals. Potassium 4.2 3.4 - 5.3 mmol/L 02/20/2023 9:27 AM [facility] Carbon Dioxide (CO2) 25 22 - 29 mmol/L 02/20/2023 9:27 AM [facility] Anion Gap 12 7 - 15 mmol/L 02/20/2023 9:27 AM [facility] Urea Nitrogen 34.5(H) 8.0 - 23.0 mg/dL 02/20/2023 9:27 AM [facility] Creatinine 3.81(H) 0.51 - 0.95 mg/dL 02/20/2023 9:27 AM [facility] GFR Estimate 12(L) >60 mL/min/1. 73m2 02/20/2023 9:27 AM [facility] Calcium 8.7(L) 8.8 - 10.2 mg/dL 02/20/2023 9:27 AM [facility] Chloride 98 98 - 107 mmol/L 02/20/2023 9:27 AM [facility] Glucose 112(H) 70 - 99 mg/dL 02/20/2023 9:27 AM [facility] Alkaline Phosphatase 122 40 - 150 U/L 02/20/2023 9:27 AM [facility] Comment:Reference intervals for this test were updated on 12/25/2022 to more accurately reflect our healthy population. There may be differences in the flagging of prior results with similar values performed with this method. Interpretation of those prior results can be made in the context of the updated reference intervals. AST 18 0 - 45 U/L 02/20/2023 9:27 AM [facility] Comment:Reference intervals for this test were updated on 07/23/2022 to more accurately reflect our healthy population. There may be differences in the flagging of prior results with similar values performed with this method. Interpretation of those prior results can be made in the context of the updated reference intervals. ALT 5 0 - 50 U/L 02/20/2023 9:27 AM [facility] LABORATORY Comment:Reference intervals for this test were updated on 07/23/2022 to more accurately reflect our healthy population. There may be differences in the flagging of prior results with similar values performed with this method. Interpretation of those prior results can be made in the context of the updated reference intervals. Protein Total 6.3(L) 6.4 - 8.3 g/dL 02/20/2023 9:27 AM W[facility] OFF LABORATORY Albumin 3.2(L) 3.5 - 5.2 g/dL 02/20/2023 9:27 AM [facility] LABORATORY Bilirubin Total 0.2 <=1.2 mg/dL 02/20/2023 9:27 AM [facility] OFF LABORATORY Blood STRUCTURE OF LEFT UPPER LIMB / Unknown Venipuncture / Unknown 02/20/2023 8:52 AM WASHER OFF 02/20/2023 8:59 AM WASH[facility] OFF us Kai Khan DO LAB - BLOOD ORDERABLES Fin al Result LABORATORY [facility] [address] [facility] Lab (1st floor, no room number) [place] [address], [facility] [phone] * (ABNORMAL) Renal panel (12/18/2022 8:45 AM WASHER OFF) [facility] Sodium 135 135 - 145 mmol/L 12/18/2022 9:44 AM WASHER OFF LABORATORY Comment:Reference intervals for this test were updated on 11/06/2022 to more accurately reflect our healthy population. There may be differences in the flagging of prior results with similar values performed with this method. Interpretation of those prior results can be made in the context of the updated reference intervals. Potassium 4.2 3.4 - 5.3 mmol/L 12/18/2022 9:44 AM WASHER OFF LABORATORY Chloride 99 98 - 107 mmol/L 12/18/2022 9:44 AM [facility] OFF LABORATORY Carbon Dioxide (CO2) 29 22 - 29 mmol/L 12/18/2022 9:44 AM [facility] Anion Gap 7 7 - 15 mmol/L 12/18/2022 9:44 AM [facility] Glucose 128(H) 70 - 99 mg/dL 12/18/2022 9:44 AM [facility] Urea Nitrogen 17.7 8.0 - 23.0 mg/dL 12/18/2022 9:44 AM [facility] Creatinine 2.67(H) 0.51 - 0.95 mg/dL 12/18/2022 9:44 AM [facility] GFR Estimate 18(L) >60 mL/min/1. 73m2 12/18/2022 9:44 AM [facility] Calcium 7.6(L) 8.8 - 10.2 mg/dL 12/18/2022 9:44 AM [facility] Albumin 2.6(L) 3.5 - 5.2 g/dL 12/18/2022 9:44 AM [facility] Phosphorus 2.3(L) 2.5 - 4.5 mg/dL 12/18/2022 9:44 AM [facility] Blood STRUCTURE OF RIGHT UPPER LIMB / Unknown Venipuncture / Unknown 12/18/2022 8:45 AM WASHER OFF 12/18/2022 8:50 AM WASHER OFF us David Treviño MD LAB - BLOOD ORDERABLES Final Res ult LABORATORY [facility] [address] Lab (1st floor, no room number) [place] [address], [facility] [phone] * Stool: occult blood (12/12/2022 11:03 PM CDT) Occult Blood Negative Negative JENNIFER 12/12/2022 11:32 PM CDT LABORATORY Stool RECTAL CONTENTS / Unknown Non-blood Collection / Unknown 12/12/2022 11:03 PM CDT 12/12/2022 11:11 PM CDT us Jason Tapia MD LAB - STOOLS ORDERABLES Final Result [facility] [address] [facility] Lab (1st floor, no room number) [place] [address], [facility] [phone] from Last 3 Months or Most Recently Relevant to Health Maintenance Insurance [facility] [employer] [place] [address] [phone] [facility] Advance Directives For more information, please contact: [phone] * Full Code (Latest Code Status on [...] Comments Code status determined by: Discussion with fleipae nt/ legal decision maker Care Teams Health Program Director Relationship Specialty Start Date End Date Tyrell Schneider [address] [place] [address] PCP - General Family Medicine 02/19/23
--- OUTSIDE RECORDS SUMMARY | 2024-03-30 15:41 | XMS_ITS | Encounter Summary ---
Author Organization [facility] Address [address] [place] [address] Care Team Providers Care Cider Maker Name Role Phone Unavailable Primary Care Provider Unavailabl e Encounter Details Date Type Department Care Team (Late st Contact Info) Description 06/05/2016 Historical Ophthalmology [facility] Deann Colby M.D. [address] [place] [phone] Social History Tobacco Use Types Packs/Day Years Used Date Smoking Tobacco: Never Assessed Comments Unknown Sex and Gender Information Value Date Recorded Sex Assigned at Not on file Legal Sex Female 10:27 PM INBOUND CUSTOMER SERVICE REPRESENTATIVE Gender Identity Female 01/08/2022 2:47 PM INBOUND CUSTOMER SERVICE REPRESENTATIVE Sexual Orientation Straight 01/08/2022 2: 47 PM INBOUND CUSTOMER SERVICE REPRESENTATIVE documented as of this encounter Progress [...] in clinic. CDM Reports - EYEGEN Id: [id number] Status: Fnl documented in this encounter Plan of Treatment Not on file documented as of this encounter Visit Diagnoses Not on filedocumented in this encounter
--- OUTSIDE RECORDS SUMMARY | 2024-03-30 15:41 | XMS_ITS | Encounter Summary ---
Author Organization [facility] Address [address] [place] [address] Care Team Providers Care Control Tower Operator Name Role Phone Unavailable Primary Care Provider Unavailabl e Encounter Details Date Type Department Care Team (Late st Contact Info) Description 07/04/2015 Historical Ophthalmology [facility] O[facility] Eva Heard M.D. [address] [facility] 200 [place] [phone] Social History Tobacco Use Types Packs/Day Years Used Date Smoking Tobacco: Never Assessed Comments Unknown Sex and Gender Information Value Date Recorded Sex Assigned at Not on file Legal Sex Female 10:27 PM COTTON BALL BAGGER Gender Identity Female 01/08/2022 2:47 PM COTTON BALL BAGGER Sexual Orientation Straight 01/08/2022 2: 47 PM COTTON BALL BAGGER documented as of this encounter Progress Notes * Eva Heard M.D. - 07/04/2015 9:39 AM CDT Eye Postoperative MULTI-VISIT DOCUMENT This document contains multiple patient visits and is available for review in Document Viewer. CDM Reports - EYEPO Id: [id number] Status: Fnl documented in this encounter Plan of Treatment Not on file documented as of this encounter Visit Diagnoses Not on filedocumented in this encounter
--- OUTSIDE RECORDS SUMMARY | 2024-03-30 15:41 | XMS_ITS | Encounter Summary ---
Author Organization [facility] Address [address] [place] [address] Care Team Providers Care Collection Clerk Name Role Phone Unavailable Primary Care Provider Unavailabl e Reason for Visit * Reason Comments Med Refill Encounter Details Date Type Department Care Team ([facility] st Contact Info) Description 03/02/2024 Refill Department of Ophthalmology in [place], [place] [address] [place] [phone] Luma Solis M.D., M.S. [address] [place] [phone] Med Refill Social History Tobacco Use Types [...] on file Legal Sex Female 10:27 PM TEACHER EDUCATION DIRECTOR Gender Identity Female 01/08/2022 2:47 PM TEACHER EDUCATION DIRECTOR Sexual Orientation Straight 01/08/2022 2: 47 PM TEACHER EDUCATION DIRECTOR documented as of this encounter Plan of Treatment Not on file documented as of this encounter Visit Diagnoses Not on filedocumented in this encounter
--- OUTSIDE RECORDS SUMMARY | 2024-03-30 15:41 | XMS_ITS | Encounter Summary ---
Author Organization [facility] Address [address] [place] [address] Care Team Providers Care Pai Gow Manager Name Role Phone Unavailable Primary Care Provider Unavailabl e Encounter Details Date Type Department Care Team (Late st Contact Info) Description 10/24/2015 Historical Ophthalmology [facility] O[facility] Deann Colby M.D. [address] [place] [phone] Social History Tobacco Use Types Packs/Day Years Used Date Smoking Tobacco: Never Assessed Comments Unknown Sex and Gender Information Value Date Recorded Sex Assigned at Not on file Legal Sex Female 10:27 PM CARDIOPULMONARY TECHNICIAN Gender Identity Female 01/08/2022 2:47 PM CARDIOPULMONARY TECHNICIAN Sexual Orientation Straight 01/08/2022 2: 47 PM CARDIOPULMONARY TECHNICIAN documented as of this encounter Progress [...] intra-op intravitreal vancomycin and ceftazadime Discussed with CRATE REPAIRER today. 24 Oct 2015: Corneal edema continues [...] vision, worsening concerns. Must come in when CRATE REPAIRER is here. Use fluorescein strips only, not [...] #4 Floaters, right eye CDM [facility] Id: [id number] Status: Fnl documented in this encounter Plan of Treatment Not on file documented as of this encounter Visit Diagnoses Not on filedocumented in this encounter
--- OUTSIDE RECORDS SUMMARY | 2024-03-30 15:41 | XMS_ITS | Encounter Summary ---
Author Organization [facility] Address [address] [place] [address] Care Team Providers Care Senior Engineering Team Leader Name Role Phone Unavailable Primary Care Provider Unavailabl e Encounter Details Date Type Department Care Team (Late st Contact Info) Description 01/23/2016 Historical Ophthalmology R[facility] OPH Deann Colby M.D. [address] [place] [phone] Social History Tobacco Use Types Packs/Day Years Used Date Smoking Tobacco: Never Assessed Comments Unknown Sex and Gender Information Value Date Recorded Sex Assigned at Not on file Legal Sex Female 10:27 PM DRESSMAKER GARMENT FITTER Gender Identity Female 01/08/2022 2:47 PM DRESSMAKER GARMENT FITTER Sexual Orientation Straight 01/08/2022 2: 47 PM DRESSMAKER GARMENT FITTER documented as of this encounter Progress Notes [...] vision, worsening concerns. Must come in when PRESS ASSISTANT AND FEEDER is here (preferably as COS staff). Use [...] #4 Floaters, right eye CDM Reports - [facility] Id: [id number] Status: Fnl documented in this encounter Plan of Treatment Not on file documented as of this encounter Visit Diagnoses Not on filedocumented in this encounter
--- OUTSIDE RECORDS SUMMARY | 2024-03-30 15:41 | XMS_ITS | Encounter Summary ---
Author Organization [facility] Address [address] [place] [address] Care Team Providers Care Associate Account Manager Name Role Phone Unavailable Primary Care Provider Unavailabl e Encounter Details Date Type Department Care Team (Late st Contact Info) Description 08/24/2015 Historical Ophthalmology [facility] O[facility] Deann Colby M.D. [address] [place] [phone] Social History Tobacco Use Types Packs/Day Years Used Date Smoking Tobacco: Never Assessed Comments Unknown Sex and Gender Information Value Date Recorded Sex Assigned at Not on file Legal Sex Female 10:27 PM PHOTOGRAPHY EDITOR Gender Identity Female 01/08/2022 2:47 PM PHOTOGRAPHY EDITOR Sexual Orientation Straight 01/08/2022 2: 47 PM PHOTOGRAPHY EDITOR documented as of this encounter Progress Notes [...] intra-op intravitreal vancomycin and ceftazadime Seen with RAIL CAR OPERATOR today. 08/03/15: Corneal edema continues to improve. [...] vision, worsening concerns. Must come in when RAIL CAR OPERATOR is here. Use fluorescein strips only, not [...] #4 Floaters, right eye CDM Reports - [facility] Id: [id number] Status: Fnl documented in this encounter Plan of Treatment Not on file documented as of this encounter Visit Diagnoses Not on filedocumented in this encounter
--- OUTSIDE RECORDS SUMMARY | 2024-03-30 15:41 | XMS_ITS | Encounter Summary ---
Author Organization [facility] Address [address] [place] [address] Care Team Providers Care Exhibit Builder Name Role Phone Unavailable Primary Care Provider Unavailabl e Encounter Details Date Type Department Care Team (Late st Contact Info) Description 10/13/2015 Historical Ophthalmology R[facility] OPH Deann Colby M.D. [address] [place] [phone] Social History Tobacco Use Types Packs/Day Years Used Date Smoking Tobacco: Never Assessed Comments Unknown Sex and Gender Information Value Date Recorded Sex Assigned at Not on file Legal Sex Female 10:27 PM MICROELECTRONICS TECHNICIAN Gender Identity Female 01/08/2022 2:47 PM MICROELECTRONICS TECHNICIAN Sexual Orientation Straight 01/08/2022 2: 47 PM MICROELECTRONICS TECHNICIAN documented as of this encounter Progress [...] intra-op intravitreal vancomycin and ceftazadime Discussed with PRICING STRATEGIST today. 13 Oct 2015: Corneal edema continues [...] vision, worsening concerns. Must come in when PRICING STRATEGIST is here. Use fluorescein strips only, not [...] #4 Floaters, right eye CDM Reports - [facility]ure-24 Id: [id number] Status: Fnl documented in this encounter Plan of Treatment Not on file documented as of this encounter Visit Diagnoses Not on filedocumented in this encounter
--- OUTSIDE RECORDS SUMMARY | 2024-03-30 15:41 | XMS_ITS | Encounter Summary ---
Author Organization [facility] Address [address] [place] [address] Care Team Providers Care Position Classification Specialist Name Role Phone Unavailable Primary Care Provider Unavailabl e Encounter Details Date Type Department Care Team (Late st Contact Info) Description 08/03/2015 Historical Ophthalmology RST OPH Eva Heard M.D. [address] [facility] 200 [place] [phone] Social History Tobacco Use Types Packs/Day Years Used Date Smoking Tobacco: Never Assessed Comments Unknown Sex and Gender Information Value Date Recorded Sex Assigned at Not on file Legal Sex Female 10:27 PM FOOD SERVICE ATTENDANT Gender Identity Female 01/08/2022 2:47 PM FOOD SERVICE ATTENDANT Sexual Orientation Straight 01/08/2022 2: 47 PM FOOD SERVICE ATTENDANT documented as of this encounter Progress [...] intra-op intravitreal vancomycin and ceftazadime Seen with GEL COATER today. 06/13/15: Paul negative. Well formed chamber, with normal IOP. Graft and sutures intact. Suture reaction most significant inferiorly, will continue pred forte TID and consider suture removal inferiorly at next visit. 06/16/15: Paul negative, formed chamber, suture reaction on all original graft sutures, no loose sutures, discussed with LJM, continue current drops and return next week when GEL COATER here. Seen with SCB today. 06/20/15: Paul negative, formed chamber, suture reaction decreased, seen with GEL COATER, M Parasol occluder placed in left lower puncum, expires 2018, LOT [id number] 06/27/15: Paul negative, increased edema over snowman [...] both eyes CDM Reports - EYEGEN Id: [id number] Status: Fnl documented in this encounter Plan of Treatment Not on file documented as of this encounter Visit Diagnoses Not on filedocumented in this encounter
--- OUTSIDE RECORDS SUMMARY | 2024-03-30 15:41 | XMS_ITS | Encounter Summary ---
Author Organization [facility] Address [address] [place] [address] Care Team Providers Care Resident Engineer Name Role Phone Unavailable Primary Care Provider Unavailabl e Encounter Details Date Type Department Care Team (Late st Contact Info) Description 11/23/2015 Historical Ophthalmology R[facility] O[facility] Deann Colby M.D. [address] [place] [phone] Social History Tobacco Use Types Packs/Day Years Used Date Smoking Tobacco: Never Assessed Comments Unknown Sex and Gender Information Value Date Recorded Sex Assigned at Not on file Legal Sex Female 10:27 PM CLOTH FINISHING RANGE OPERATOR CHIEF Gender Identity Female 01/08/2022 2:47 PM CLOTH FINISHING RANGE OPERATOR CHIEF Sexual Orientation Straight 01/08/2022 2: 47 PM CLOTH FINISHING RANGE OPERATOR CHIEF documented as of this encounter Progress [...] intra-op intravitreal vancomycin and ceftazadime Discussed with SHIPPING TEAM LEADER today. 23 Nov 2015: Corneal edema continues [...] vision, worsening concerns. Must come in when SHIPPING TEAM LEADER is here (preferably as COS staff). Use [...] right eye CDM Reports - EYEGEN Id: [id number] Status: Fnl documented in this encounter Plan of Treatment Not on file documented as of this encounter Visit Diagnoses Not on filedocumented in this encounter
--- OUTSIDE RECORDS SUMMARY | 2024-03-30 15:42 | XMS_ITS | Encounter Summary ---
Author Organization [facility] Address [address] [place] [address] Care Team Providers Care Electrophysiology Nurse Practitioner Name Role Phone Unavailable Primary Care Provider Unavailabl e Encounter Details Date Type Department Care Team (Late st Contact Info) Description 05/12/2015 Historical Ophthalmology RST OPH Frantz Lee M.D. [address] [place] [phone] Social History Tobacco Use Types Packs/Day Years Used Date Smoking Tobacco: Never Assessed Comments Unknown Sex and Gender Information Value Date Recorded Sex Assigned at Not on file Legal Sex Female 10:27 PM METHODS ENGINEER Gender Identity Female 01/08/2022 2:47 PM METHODS ENGINEER Sexual Orientation Straight 01/08/2022 2: 47 PM METHODS ENGINEER documented as of this encounter Progress [...] left eye CDM Reports - EYEGEN Id: [id number] Status: Fnl documented in this encounter Plan of Treatment Not on file documented as of this encounter Visit Diagnoses Not on filedocumented in this encounter
--- OUTSIDE RECORDS SUMMARY | 2024-03-30 15:42 | XMS_ITS | Encounter Summary ---
Author Organization [facility] Address [address] [place] [address] Care Team Providers Care Customer Service Assistant Name Role Phone Unavailable Primary Care Provider Unavailabl e Encounter Details Date Type Department Care Team (Late st Contact Info) Description 05/13/2015 Historical Ophthalmology RST OPH Frantz Lee M.D. [address] [place] [phone] Social History Tobacco Use Types Packs/Day Years Used Date Smoking Tobacco: Never Assessed Comments Unknown Sex and Gender Information Value Date Recorded Sex Assigned at Not on file Legal Sex Female 10:27 PM HEELER Gender Identity Female 01/08/2022 2:47 PM HEELER Sexual Orientation Straight 01/08/2022 2: 47 PM HEELER documented as of this encounter Progress Notes [...] follow with her PCP for diabetes management. SENIOR SOFTWARE DEVELOPMENT MANAGER ([id number]): I interviewed and examined the patient and [...] Corneal ulcer, left eye CDM Reports - [employer] Id: [id number] Status: Fnl documented in this encounter Plan of Treatment Not on file documented as of this encounter Visit Diagnoses Not on filedocumented in this encounter
--- OUTSIDE RECORDS SUMMARY | 2024-03-30 15:42 | XMS_ITS | Encounter Summary ---
Author Organization [facility] Address [address] [place] [address] Care Team Providers Care Internal Combustion Engine Inspector Name Role Phone Unavailable Primary Care Provider Unavailabl e Encounter Details Date Type Department Care Team (Late st Contact Info) Description 05/24/2015 Historical Ophthalmology RST OPH Eva Heard M.D. [address] [facility] 200 [place] [phone] Social History Tobacco Use Types Packs/Day Years Used Date Smoking Tobacco: Never Assessed Comments Unknown Sex and Gender Information Value Date Recorded Sex Assigned at Not on file Legal Sex Female 10:27 PM HUMAN RESOURCE INTERNSHIP Gender Identity Female 01/08/2022 2:47 PM HUMAN RESOURCE INTERNSHIP Sexual Orientation Straight 01/08/2022 2: 47 PM HUMAN RESOURCE INTERNSHIP documented as of this encounter Progress [...] Saturday. s/p intra-op subconj Dex Seen with INFORMATION ASSURANCE today Plan: Alternate every 2 hours with [...] diabetic retinopathy, right eye CDM Reports - [employer] Id: [id number] Status: Fnl documented in this encounter Plan of Treatment Not on file documented as of this encounter Visit Diagnoses Not on filedocumented in this encounter
--- OUTSIDE RECORDS SUMMARY | 2024-03-30 15:42 | XMS_ITS | Encounter Summary ---
Author Organization [facility] Address [address] [place] [address] Care Team Providers Care Dial Brusher Name Role Phone Unavailable Primary Care Provider Unavailabl e Encounter Details Date Type Department Care Team (Late st Contact Info) Description 06/13/2015 Historical Ophthalmology RST OPH Maricruz Garcia M.D. Social History Tobacco Use Types Packs/Day Years Used Date Smoking Tobacco: Never Assessed Comments Unknown Sex and Gender Information Value Date Recorded Sex Assigned at Not on file Legal Sex Female 10:27 PM IRRIGATION EQUIPMENT INSTALLER Gender Identity Female 01/08/2022 2:47 PM IRRIGATION EQUIPMENT INSTALLER Sexual Orientation Straight 01/08/2022 2: 47 PM IRRIGATION EQUIPMENT INSTALLER documented as of this encounter Progress [...] Monocular status CDM Reports - [employer]YEGEN Id: [id number] Status: Fnl documented in this encounter Plan of Treatment Not on file documented as of this encounter Visit Diagnoses Not on filedocumented in this encounter
--- OUTSIDE RECORDS SUMMARY | 2024-03-30 15:42 | XMS_ITS | Encounter Summary ---
Author Organization [facility] Address [address] [place] [address] Care Team Providers Care Director Peoplesoft Name Role Phone Unavailable Primary Care Provider Unavailabl e Encounter Details Date Type Department Care Team (Late st Contact Info) Description 05/14/2015 Historical Ophthalmology RST OPH Maricruz Garcia M.D. Social History Tobacco Use Types Packs/Day Years Used Date Smoking Tobacco: Never Assessed Comments Unknown Sex and Gender Information Value Date Recorded Sex Assigned at Not on file Legal Sex Female 10:27 PM RAMP BOSS Gender Identity Female 01/08/2022 2:47 PM RAMP BOSS Sexual Orientation Straight 01/08/2022 2: 47 PM RAMP BOSS documented as of this encounter Progress Notes [...] washout 05/13/15 CDM Reports - EYEGEN Id: [id number] Status: Fnl documented in this encounter Plan of Treatment Not on file documented as of this encounter Visit Diagnoses Not on filedocumented in this encounter
--- OUTSIDE RECORDS SUMMARY | 2024-03-30 15:42 | XMS_ITS | Encounter Summary ---
Author Organization [facility] Address [address] [place] [address] Care Team Providers Care Road Marker Name Role Phone Unavailable Primary Care Provider Unavailabl e Encounter Details Date Type Department Care Team (Late st Contact Info) Description 04/17/2016 Historical Ophthalmology RST OPH Daniel Clements M.D. [address] [place] [phone] Social History Tobacco Use Types Packs/Day Years Used Date Smoking Tobacco: Never Assessed Comments Unknown Sex and Gender Information Value Date Recorded Sex Assigned at Not on file Legal Sex Female 10:27 PM COMPUTER SYSTEMS ENGINEER Gender Identity Female 01/08/2022 2:47 PM COMPUTER SYSTEMS ENGINEER Sexual Orientation Straight 01/08/2022 2: 47 PM COMPUTER SYSTEMS ENGINEER documented as of this encounter Progress Notes * Daniel Clements M.D. - 04/17/2016 9:37 AM CST Eye General CHIEF COMPLAINT Left eye itching all night long; 2.5 weeks; tearing a little. HISTORY OF PRESENT ILLNESS Hale over left eye pupil. No eye pain. [...] right eye CDM Reports - EYEGEN Id: [id number] Status: Fnl documented in this encounter Plan of Treatment Not on file documented as of this encounter Visit Diagnoses Not on filedocumented in this encounter
--- OUTSIDE RECORDS SUMMARY | 2024-03-30 15:42 | XMS_ITS | Encounter Summary ---
Author Organization [facility] Address [address] [place] [address] Care Team Providers Care Efficiency Engineer Name Role Phone Unavailable Primary Care Provider Unavailabl e Encounter Details Date Type Department Care Team (Late st Contact Info) Description 05/11/2015 Historical Ophthalmology RST OPH Frantz Lee M.D. [address] [place] [phone] Social History Tobacco Use Types Packs/Day Years Used Date Smoking Tobacco: Never Assessed Comments Unknown Sex and Gender Information Value Date Recorded Sex Assigned at Not on file Legal Sex Female 10:27 PM STACK ATTENDANT Gender Identity Female 01/08/2022 2:47 PM STACK ATTENDANT Sexual Orientation Straight 01/08/2022 2: 47 PM STACK ATTENDANT documented as of this encounter Progress [...] left eye CDM Reports - EYEGEN Id: [id number] Status: Fnl documented in this encounter Plan of Treatment Not on file documented as of this encounter Visit Diagnoses Not on filedocumented in this encounter
--- OUTSIDE RECORDS SUMMARY | 2024-03-30 15:42 | XMS_ITS | Encounter Summary ---
Author Organization [facility] Address [address] [place] [address] Care Team Providers Care Aws Architect Name Role Phone Unavailable Primary Care Provider Unavailabl e Encounter Details Date Type Department Care Team (Late st Contact Info) Description 06/13/2015 Historical Ophthalmology RST OPH Maricruz Garcia M.D. Social History Tobacco Use Types Packs/Day Years Used Date Smoking Tobacco: Never Assessed Comments Unknown Sex and Gender Information Value Date Recorded Sex Assigned at Not on file Legal Sex Female 10:27 PM TELECOMMUNICATIONS PROFESSIONAL Gender Identity Female 01/08/2022 2:47 PM TELECOMMUNICATIONS PROFESSIONAL Sexual Orientation Straight 01/08/2022 2: 47 PM TELECOMMUNICATIONS PROFESSIONAL documented as of this encounter Progress Notes * Maricruz Garcia M.D. - 06/13/2015 3:08 PM CDT Eye Postoperative MULTI-VISIT DOCUMENT This document contains multiple patient visits and is available for review in Document Viewer. CDM Reports - EYEPO Id: [id number] Status: Fnl documented in this encounter Plan of Treatment Not on file documented as of this encounter Visit Diagnoses Not on filedocumented in this encounter
--- OUTSIDE RECORDS SUMMARY | 2024-03-30 15:42 | XMS_ITS | Encounter Summary ---
Author Organization [facility] Address [address] [place] [address] Care Team Providers Care Sustainability Purchasing Agent Name Role Phone Unavailable Primary Care Provider Unavailabl e Encounter Details Date Type Department Care Team (Late st Contact Info) Description 03/12/2016 Historical Ophthalmology RST OPH Daniel Clements M.D. [address] [place] [phone] Social History Tobacco Use Types Packs/Day Years Used Date Smoking Tobacco: Never Assessed Comments Unknown Sex and Gender Information Value Date Recorded Sex Assigned at Not on file Legal Sex Female 10:27 PM CONCHE OPERATOR Gender Identity Female 01/08/2022 2:47 PM CONCHE OPERATOR Sexual Orientation Straight 01/08/2022 2: 47 PM CONCHE OPERATOR documented as of this encounter Progress [...] vision, worsening concerns. Must come in when TENDERIZER TENDER is here (preferably as COS staff). [...] right eye CDM Reports - EYEGEN Id: [id number] Status: Fnl documented in this encounter Plan of Treatment Not on file documented as of this encounter Visit Diagnoses Not on filedocumented in this encounter
--- OUTSIDE RECORDS SUMMARY | 2024-03-30 15:42 | XMS_ITS | Encounter Summary ---
Author Organization [facility] Address [address] [place] [address] Care Team Providers Care Solution Professional Name Role Phone Unavailable Primary Care Provider Unavailabl e Encounter Details Date Type Department Care Team (Late st Contact Info) Description 05/09/2015 Historical Ophthalmology RST OPH Frantz Lee M.D. [address] [place] [phone] Social History Tobacco Use Types Packs/Day Years Used Date Smoking Tobacco: Never Assessed Comments Unknown Sex and Gender Information Value Date Recorded Sex Assigned at Not on file Legal Sex Female 10:27 PM STAFF COUNSELOR Gender Identity Female 01/08/2022 2:47 PM STAFF COUNSELOR Sexual Orientation Straight 01/08/2022 2: 47 PM STAFF COUNSELOR documented as of this encounter Progress Notes [...] to the eye doctor this morning in [facility]. States that she lost the drop [...] left eye CDM Reports - EYEGEN Id: [id number] Status: Fnl documented in this encounter Plan of Treatment Not on file documented as of this encounter Visit Diagnoses Not on filedocumented in this encounter
--- OUTSIDE RECORDS SUMMARY | 2024-03-30 15:42 | XMS_ITS | Encounter Summary ---
Author Organization [facility] Address [address] [place] [address] Care Team Providers Care Work Car Operator Name Role Phone Unavailable Primary Care Provider Unavailabl e Encounter Details Date Type Department Care Team (Late st Contact Info) Description 05/10/2015 Historical Ophthalmology RST OPH Frantz Lee M.D. [address] [place] [phone] Social History Tobacco Use Types Packs/Day Years Used Date Smoking Tobacco: Never Assessed Comments Unknown Sex and Gender Information Value Date Recorded Sex Assigned at Not on file Legal Sex Female 10:27 PM COLD ROLLER Gender Identity Female 01/08/2022 2:47 PM COLD ROLLER Sexual Orientation Straight 01/08/2022 2: 47 PM COLD ROLLER documented as of this encounter Progress Notes [...] left eye CDM Reports - EYEGEN Id: [id number] Status: Fnl documented in this encounter Plan of Treatment Not on file documented as of this encounter Visit Diagnoses Not on filedocumented in this encounter
--- OUTSIDE RECORDS SUMMARY | 2024-03-30 15:42 | XMS_ITS | Encounter Summary ---
Author Organization [facility] Address [address] [place] [address] Care Team Providers Care Director Of Emergency Nursing Name Role Phone Unavailable Primary Care Provider Unavailabl e Encounter Details Date Type Department Care Team (Late st Contact Info) Description 05/20/2015 Historical Ophthalmology RST OPH Eva Heard M.D. [address] [facility] 200 [place] [phone] Social History Tobacco Use Types Packs/Day Years Used Date Smoking Tobacco: Never Assessed Comments Unknown Sex and Gender Information Value Date Recorded Sex Assigned at Not on file Legal Sex Female 10:27 PM POLICY DIRECTOR Gender Identity Female 01/08/2022 2:47 PM POLICY DIRECTOR Sexual Orientation Straight 01/08/2022 2: 47 PM POLICY DIRECTOR documented as of this encounter Progress [...] Saturday. s/p intra-op subconj Dex Seen with OUTSIDE DELIVERER today Plan: Alternate every 2 hours with [...] right eye CDM Reports - EYEGEN Id: [id number] Status: Fnl documented in this encounter Plan of Treatment Not on file documented as of this encounter Visit Diagnoses Not on filedocumented in this encounter
[2024-03-30 16:01] LABS: Basophils Absolute Auto 0.04 K/uL (0.00-0.30); Basophils Percent Auto 0.4 % (0.0-3.0); Eosinophils Absolute Auto 0.23 K/uL (0.00-0.50); Eosinophils Percent Auto 2.2 % (0.0-7.0); Hematocrit 32.3 % (33.0-51.0); Hemoglobin* 9.9 gm/dL (12.0-16.0); Immature Granulocytes Abs Auto 0.02 K/uL (0.00-0.30); Immature Granulocytes Pct Auto 0.2 %; Lymphocytes Percent Auto 4.4 % (20-44); Mean Corpuscular HGB Conc 31 gm/dL (32-36); Mean Corpuscular Hemoglobin 29 pg (26-34); Mean Corpuscular Volume 93 fL (80-100); Monocytes Percent Auto 4.2 % (0.0-11.0); Neutrophils Percent Auto 88.6 % (42.0-72.0); Platelet Count* 240 K/uL (140-440); RDW Coefficient of Variation % 17.4 % (11.5-15.5); Red Blood Count 3.47 m/uL (4.00-5.20); White Blood Count* 10.23 K/uL (4.50-11.00)
[2024-03-30 16:11] LABS: Slide Review Reflex No
[2024-03-30 16:15] LABS: Albumin* 4.1 g/dL (3.3-5.0); Chloride* 102 mmol/L (96-114)
[2024-03-30 16:16] LABS: Potassium* 3.7 mmol/L (3.6-5.1); Sodium* 134 mmol/L (135-149)
[2024-03-30 16:18] LABS: Estimated Glomerular Filt Rate 16 ml/min
[2024-03-30 16:19] LABS: Alanine Aminotransferase* 19 U/L (4-35); Alkaline Phosphatase* 136 U/L (40-150); Anion Gap 11 mEq/L (7-15); Aspartate Amino Transferase* 26 U/L (12-35); Bilirubin Total* 0.4 mg/dL (0.1-1.5); Calcium* 9.2 mg/dL (8.4-10.6); Carbon Dioxide* 21 mmol/L (20-32); Glucose* 183 mg/dL (60-115); Magnesium* 2.2 mg/dL (1.5-2.6); Total Protein* 7.1 g/dL (6.0-8.3)
[2024-03-30 16:21] LABS: C Reactive Protein* 1.1 mg/dL (0.5-1.0)
[2024-03-30 16:35] LABS: Blood Urea Nitrogen* 32 mg/dL (7-30)
[2024-03-30 16:38] LABS: PCR FLU A Negative PCR FLU A (Negative); PCR FLU B Negative PCR FLU B (Negative); PCR RSV Negative PCR RSV (Negative); SARS PCR* Negative SARS-CoV-2 (Negative)
[2024-03-30 16:49] LABS: Ethanol* < 0.00 % (0.01-0.03)
[2024-03-30 17:27] LABS: Appearance Urine Cloudy (Clear); Bilirubin Urine 1+ (Negative); Blood Urine 1+ (Negative); Color Urine Yellow (Yellow); Glucose Urine Trace (Negative); Ketones Urine Trace (Negative); Leukocyte Esterase Urine 1+ (Negative); Nitrite Urine Negative (Negative); Protein Urine 3+ (Negative); Specific Gravity Urine 1.025 (1.000-1.030); Urobilinogen Urine 0.2 (0.2-1.0); pH Urine 5.5 (5.0-8.5)
[2024-03-30 17:43] LABS: Squamous Epithelial Cell Urine Many (None-Few); WBC Urine 25-50 (0-5)
[2024-03-30 17:44] LABS: Amorphous Sediment Urine Many; Bacteria Urine Many; Fine Granular Casts Urine Few; Hyaline Casts Urine Few (None-Few)
[2024-03-30] MEDS: AZITHROMYCIN 250 MG TABLET 500 MG PO (17:53)
[2024-03-30] MEDS: cefTRIAXone 1 GM in 0.9 % SODIUM CHLORIDE Mini-bag 100 ML IVPB (17:53)
--- NOTE | 2024-03-30 18:31 | ED.NURSE ---
Report given to Vitor MEZA. Pt is going to be in room 3031, [address].
--- NOTE | 2024-03-30 18:53 | ED.NURSE ---
Pt report given to EMS.
[2024-03-30 20:33] LABS: Amphetamine Screen Urine Negative (Negative); Barbiturate Screen Urine Negative (Negative); Benzodiazepines Screen Urine Negative (Negative); Cannabinoid Screen Urine Negative (Negative); Cocaine Screen Urine Negative (Negative); Methadone Screen Urine Negative (Negative); Methamphetamines Screen Urine Negative (Negative); Opiate Screen Urine Negative (Negative); Oxycodone Screen Urine Negative (Negative); Phencyclidine Screen Urine Negative (Negative); Tricyclic Antidepressant Urine POSITIVE (Negative)
--- NOTE | 2024-03-30 21:00 | CRLHL7_ITS ---
For Patients: As a result of the Century Cures Act, medical imaging exams and procedure reports are released immediately into your electronic medical record. You may view this report before your referring provider. If you have questions, please contact your health care provider. TECHNIQUE: Multiplanar CT examination of the head was performed without the use of intravenous contrast. INDICATION: Altered mental status. COMPARISON: None. FINDINGS: No loss of altamirano-white differentiation to suggest recent territorial infarct. No intracranial hemorrhage, abnormal extra-axial fluid collection, hydrocephalus or midline shift. The ventricles and cerebral sulci are prominent in caliber, compatible with mild generalized parenchymal volume loss. There is ill-defined hypoattenuation of the supratentorial white matter diffusely, nonspecific but consistent with chronic microvascular ischemic changes. The basal cisterns are patent. The paranasal sinuses and mastoid air cells remain clear. The orbits and calvarium are unremarkable. The cerebellar tonsils are normal position. IMPRESSION: No acute intracranial findings. Please note that all CT scans at this facility use dose modulation, iterative reconstruction, and/or weight-based dosing when appropriate to reduce radiation dose to as low as reasonably achievable. Dictated by Nuno Boogie MD @ 03/30/2024 4:35:04 PM (Electronically Signed)
== END 2024-03-30 18:55 | disposition short-term general hospital (02) ==
PROVIDERS: Emergency Provider Family Medicine; PCP Family Medicine
DX: R41.82 Altered mental status, unspecified (principal); J18.9 Pneumonia, unspecified organism; Z99.2 Dependence on renal dialysis
CPT/HCPCS: 36415; 70450; 71045; 80053; 80306; 81001; 82077; 83735; 84484; 85025; 86140; 87086; 87631; 93005; 96365; 99284; 99285; A9270; J0696

== ENCOUNTER 2024-03-30 18:50 | Outpatient (CLI) | payer MEDICARE, SELFPAY | END 2024-03-30 18:51 | disposition home or self-care (01) | LOC: AMB 03-31 10:49 | PROVIDERS: PCP Family Medicine; Visit Provider Family Medicine | DX: J18.9 Pneumonia, unspecified organism (principal); N18.6 End stage renal disease; R06.89 Other abnormalities of breathing | CPT/HCPCS: A0425; A0429 ==

== ENCOUNTER 2024-04-04 08:30 | Outpatient (CLI) | payer MEDICARE, SELFPAY | END 2024-04-04 08:31 | disposition home or self-care (01) | LOC: AMB 04-06 13:25 | PROVIDERS: PCP Family Medicine; Visit Provider Emergency Medicine Emergency Medical Services | DX: R06.09 Other forms of dyspnea (principal) | CPT/HCPCS: A0425; A0427 ==

== ENCOUNTER 2024-04-04 09:05 | Emergency (ER) | payer MEDICARE, SELFPAY ==
[2024-04-04] VITALS (37 sets, daily range): BP systolic 122–202; BP diastolic 63–107; PULSE 55–71; RESP 14–54; TEMP 36.1–37; O2SAT 80–100; BMI 16.1
--- OUTSIDE RECORDS SUMMARY | 2024-04-04 09:09 | XMS_ITS | Encounter Summary ---
Author Organization [facility] Address [address] [place] [address] Care Team Providers Care Financial Assistance Advisor Name Role Phone Unavailable Primary Care Provider Unavailabl e Encounter Details Date Type Department Care Team (Late st Contact Info) Description 10/24/2015 Historical Ophthalmology RST OPH Deann Colby M.D. [address] [place] [phone] Social History Tobacco Use Types Packs/Day Years Used Date Smoking Tobacco: Never Assessed Comments Unknown Sex and Gender Information Value Date Recorded Sex Assigned at Not on file Legal Sex Female 10:27 PM PRINTED CIRCUIT BOARDS BEVELER Gender Identity Female 01/08/2022 2:47 PM PRINTED CIRCUIT BOARDS BEVELER Sexual Orientation Straight 01/08/2022 2: 47 PM PRINTED CIRCUIT BOARDS BEVELER documented as of this encounter Progress Notes [...] intravitreal vancomycin and ceftazadime Discussed with TIMBER PACKER today. 24 Oct 2015: Corneal edema continues [...] worsening concerns. Must come in when TIMBER PACKER is here. Use fluorescein strips only, not [...] #4 Floaters, right eye CDM Reports - [facility] Id: [id number] Status: Fnl documented in this encounter Plan of Treatment Not on file documented as of this encounter Visit Diagnoses Not on filedocumented in this encounter
--- OUTSIDE RECORDS SUMMARY | 2024-04-04 09:09 | XMS_ITS | Encounter Summary ---
Author Organization [facility] Address [address] [place] [address] Care Team Providers Care Java Systems Analyst Name Role Phone Unavailable Primary Care Provider Unavailabl e Encounter Details Date Type Department Care Team (Late st Contact Info) Description 10/13/2015 Historical Ophthalmology RST OPH Deann Colby M.D. [address] [place] [phone] Social History Tobacco Use Types Packs/Day Years Used Date Smoking Tobacco: Never Assessed Comments Unknown Sex and Gender Information Value Date Recorded Sex Assigned at Not on file Legal Sex Female 10:27 PM ROPE MACHINE SETTER Gender Identity Female 01/08/2022 2:47 PM ROPE MACHINE SETTER Sexual Orientation Straight 01/08/2022 2: 47 PM ROPE MACHINE SETTER documented as of this encounter Progress Notes [...] intra-op intravitreal vancomycin and ceftazadime Discussed with WIRE SPRING RELAY ADJUSTER today. 13 Oct 2015: Corneal edema continues [...] vision, worsening concerns. Must come in when WIRE SPRING RELAY ADJUSTER is here. Use fluorescein strips only, not [...] #4 Floaters, right eye CDM Reports - [employer] Id: [id number] Status: Fnl documented in this encounter Plan of Treatment Not on file documented as of this encounter Visit Diagnoses Not on filedocumented in this encounter
--- OUTSIDE RECORDS SUMMARY | 2024-04-04 09:09 | XMS_ITS ---
Author Name [facility] Address [address] [place] [address] Phone [phone] Organization [facility] e, NA DOCUMENT DISCLAIMER Multiple document versions may exist, please be sure you review the latest version. The information in the [facility] Continuity [...] Sign Value Date / Time Blood Pressure-sitting 192/64 mmHg March 30, 2024 10:47 AM Blood Pressure-standing 155/59 mmHg March 30, 2024 10:47 AM Heart Rate 61 beats per minute March 30, 2024 10:47 AM Respiratory Rate 16 breaths per minute March 30, 2024 10:47 AM Temperature 97.9 deg. F March 30 10:47 AM Weight Vital Sign Value Date / Time Estimated Dry Weight 37.5 kg January 11:59 PM Pre-Dialysis 38.60 kg March 30 10:47 AM Post-Dialysis 37.80 kg March 30 10:47 AM Other Other Value Date / Time [...] mcg/dL 155 - 355 mcg/dL - Septemb er 2023 Neutrophils 81.7 % 40.0 - [...] 75.0 % High December Hemoglobin x 3 32.4 % 36.0 - [...] 278 1000/mcL 130 - 400 1000/mcL - 2024 WBC (No Diff) 8.27 1000/mcL 4.80 - 10.80 1000/mcL - February 19, 2024 MCH 29.0 pg 27.0 - 31.0 pg - February MCHC 31.2 g/dL 30.0 - 36.0 g/dL - February 19, 2024 UIBC/TIBC 167 mcg/dL 155 - 355 mcg/dL - February 24, 2024 Hemoglobin x 3 29.7 % 36.0 - 48.0 % Low February 26, 2024 Hemoglobin x 3 28.5 % 36.0 [...] % 36.0 - 48.0 % Low Februar 2024 Metabolic/Renal Result Type Result Value Relevant [...] 65 - 80 % High February 18 BUN/Creat Ratio 10.9 10.0 - 20.0 - [...] pg/mL 16 - 80 pg/mL High Dec Alkaline Phosphatase 148 U/L 35 - 104 U/L High Ut [id number] Calcium, Total 8.8 mg/dL 8.7 - 10.4 mg/dL - 2023 Phosphorus 3.8 mg/dL 2.6 - 4.5 mg/dL - January 22, 2024 Ca x P Product 33 0 - 54 - January 112023 PTH-Intact, Plasma 362 pg/mL 16 - 80 pg/mL High Jan Magnesium 2.3 mg/dL 1.6 - 2.6 mg/dL - February 112024 Calcium, Total 8.7 mg/dL 8.7 - 10.4 mg/dL - 2024 Ca x P Product 37 0 - 54 - February Phosphorus 4.2 mg/dL 2.6 - 4.5 mg/dL - February 122024 PTH-Intact, Plasma 177 pg/mL 16 - 80 pg/mL High Feb ruary 2024 Calcium, Total 9.8 mg/dL 8.7 - 10.4 mg/dL - 2024 Phosphorus 3.7 mg/dL 2.6 - 4.5 mg/dL - March 18, 2024 Ca x P Product 36 0 - 54 - March Alkaline Phosphatase 158 U/L 35 - 104 U/L High Fe bruary 2024 Corrected Ca x P [...] 1.2 1.0 - 2.0 - February 18 25 Globulin (Calc) 2.9 g/dL 2.0 - 4.0 g/dL - 2024 Total Protein 6.4 g/dL 6.0 - 8.5 g/dL - February 24, 2024 eNPCR 1.08 No Reference Ran ge Provided - March 18, 2024 Total Protein 6.5 g/dL 6.0 - 8.5 g/dL - 2024 Albumin (BCG) 3.8 g/dL 3.5 - 5.2 g/dL - r 2024 Globulin (Calc) 2.7 g/dL 2.0 - [...] Dialyzer Dialysis Access Meds Admin 2024 Weight 38.70 kg Weight 37.90 kg 02:46:00 300 2.0 K, 2.5 Ca, 1.0 Mg, 100 Dextrose (G2251) 160nre Optifl ux Blood Pressure-sitting 200/70 mmHg Blood Pressure-sit ting [...] minute - - Temperature 96.8 deg. F March 30, 2024 Weight 38.60 kg Weight 37.80 kg 02:46:00 430 2.0 K, 2.5 Ca, 1.0 Mg, 100 Dextrose (G2251) 160nre Optiflux Hemodialysis-AV Fistula-Standard, Left Upper Arm, Brachial Artery to Cephalic Vein Access Placed on March 31, 2018 Heparin Sodium (Porcine) 1,000 Units/mL Systemic; 2000units,Intravenous - push Blood Pressure-sitting 223/79 mmHg Blood Pressure-sit ting 192/64 mmHg Heart Rate 63 beats per minute Blood Pressure-standi ng 155/59 mmHg Respiratory Rate 16 breaths per minute Heart Rate 61 beats per minute Temperature 97.2 deg. F Respiratory Rate 16 breaths per minute - - Temperature 97.9 deg. F
--- OUTSIDE RECORDS SUMMARY | 2024-04-04 09:09 | XMS_ITS | Encounter Summary ---
Author Organization [facility] Address [address] [place] [address] Care Team Providers Care Medical Anthropology Director Name Role Phone Unavailable Primary Care Provider Unavailabl e Encounter Details Date Type Department Care Team (Late st Contact Info) Description 11/23/2015 Historical Ophthalmology RST OPH Deann Colby M.D. [address] [place] [phone] Social History Tobacco Use Types Packs/Day Years Used Date Smoking Tobacco: Never Assessed Comments Unknown Sex and Gender Information Value Date Recorded Sex Assigned at Not on file Legal Sex Female 10:27 PM SOFT BOARDER Gender Identity Female 01/08/2022 2:47 PM SOFT BOARDER Sexual Orientation Straight 01/08/2022 2: 47 PM SOFT BOARDER documented as of this encounter Progress Notes [...] intra-op intravitreal vancomycin and ceftazadime Discussed with THERAPEUTIC RECREATION ASSISTANT today. 23 Nov 2015: Corneal edema continues [...] vision, worsening concerns. Must come in when THERAPEUTIC RECREATION ASSISTANT is here (preferably as COS staff). Use [...] right eye CDM Reports - EYEGEN Id: [id number] Status: Fnl documented in this encounter Plan of Treatment Not on file documented as of this encounter Visit Diagnoses Not on filedocumented in this encounter
--- OUTSIDE RECORDS SUMMARY | 2024-04-04 09:09 | XMS_ITS | Clinical Summary ---
Author Organization [facility] Address [address] [place] [address] Care Team Providers Care Steamboat Inspector Name Role Phone Tyrell Schneider Primary Care Provider [phone] Allergies Active Allergy Reactions Criticality Noted Date [...] 01/09/2010 itching Niacin Rash,Itching Low 05/13/2006 itch [place] Rash Low 05/16/2010 Oxycodone Nausea and [...] times daily 3 Active neomycin-polymyx in-dexAMETHasone (MAXITROL) 3.5-54489-1.[address] 0.25 inches Into the [...] Comments Blood Pressure 166/77 02/21/2023 3:58 PM TWISTING FRAME OPERATOR Pulse 64 02/21/2023 3:58 PM TWISTING FRAME OPERATOR Temperature 36.9 C (98.4 F) 02/21/2023 3:58 PM TWISTING FRAME OPERATOR Respiratory Rate 18 02/21/2023 3:58 PM TWISTING FRAME OPERATOR Oxygen Saturation 99% 02/21/2023 3:58 PM TWISTING FRAME OPERATOR Inhaled Oxygen Concentration - - Weight 40.8 kg (90 lb) 02/20/2023 8:47 PM TWISTING FRAME OPERATOR Height 154.9 cm (5' 1) 12/13/2022 3:15 [...] WITH PLATELETS Routine 02/21/2023 8: 16 AM TWISTING FRAME OPERATOR BASIC METABOLIC PANEL Routine 02/21/2023 8:16 AM TWISTING FRAME OPERATOR GLUCOSE BY METER Routine 02/21/2023 1:08 AM TWISTING FRAME OPERATOR COMPREHENSIVE METABOLIC PANEL STAT 02/20/2023 8:52 AM TWISTING FRAME OPERATOR RENAL PANEL Routine 12/18/2022 8:45 AM TWISTING FRAME OPERATOR OCCULT BLOOD STOOL STAT 12/12/2022 11 :03 PM CDT from Last 3 Months or Most Recently Relevant to Health Maintenance Results * (ABNORMAL) Basic metabolic panel (02/21/2023 8:16 AM TWISTING FRAME OPERATOR) Sodium 134(L) 135 - 145 mmol/L 02/21/2023 8:55 AM TWISTING FRAME OPERATOR [facility] Comment:Reference intervals for this test were updated on 11/06/2022 to more accurately reflect our healthy population. There may be differences in the flagging of prior results with similar values performed with this method. Interpretation of those prior results can be made in the context of the updated reference intervals. Potassium 4.0 3.4 - 5.3 mmol/L 02/21/2023 8:55 AM [facility] Chloride 97(L) 98 - 107 mmol/L 02/21/2023 8:55 AM [facility] Carbon Dioxide (CO2) 28 22 - 29 mmol/L 02/21/2023 8:55 AM [facility] Anion Gap 9 7 - 15 mmol/L 02/21/2023 8:55 AM [facility] Urea Nitrogen 12.8 8.0 - 23.0 mg/dL 02/21/2023 8:55 AM [facility] Creatinine 2.49(H) 0.51 - 0.95 mg/dL 02/21/2023 8:55 AM [facility] GFR Estimate 20(L) >60 mL/min/1. 73m2 02/21/2023 8:55 AM [facility] Calcium 8.6(L) 8.8 - 10.2 mg/dL 02/21/2023 8:55 AM [facility] Glucose 144(H) 70 - 99 mg/dL 02/21/2023 8:55 AM [facility] Blood STRUCTURE OF RIGHT HAND / Unknown Venipuncture / Unknown 02/21/2023 8:16 AM TWISTING FRAME OPERATOR 02/21/2023 8:34 AM TWISTING FRAME OPERATOR us Nidia Yanez DO LAB - BLOOD ORDERABLES Fi nal Result LABORATORY [facility] Lab [address] Lab (1st floor, no room number) [place] [address], [facility] [phone] * (ABNORMAL) CBC with platelets (02/21/2023 8:16 AM TWISTING FRAME OPERATOR) WBC Count 6.6 4.0 - 11.0 10e3/uL 02/21/2023 8:39 AM TWISTING FRAME OPERATOR LABORATORY RBC Count 4.43 3.80 - 5.20 10e6/uL 02/21/2023 8:39 AM TWISTING FRAME OPERATOR [facility] Hemoglobin 12.3 11.7 - 15.7 g/dL 02/21/2023 8:39 AM TWISTING FRAME OPERATOR [facility] Hematocrit 39.2 35.0 - 47.0 % 02/21/2023 8:39 AM TWISTING FRAME OPERATOR [facility] MCV 89 78 - 100 fL 02/21/2023 8:39 AM TWISTING FRAME OPERATOR [facility] MCH 27.8 26.5 - 33.0 pg 02/21/2023 8:39 AM TWISTING FRAME OPERATOR [facility] MCHC 31.4(L) 31.5 - 36.5 g/dL 02/21/2023 8:39 AM TWISTING FRAME OPERATOR [facility] RDW 19.3(H) 10.0 - 15.0 % 02/21/2023 8:39 AM TWISTING FRAME OPERATOR [facility] Platelet Count 292 150 - 450 10e3/uL 02/21/2023 8:39 AM TWISTING FRAME OPERATOR LABORATORY Blood STRUCTURE OF RIGHT HAND / Unknown Venipuncture / Unknown 02/21/2023 8:16 AM TWISTING FRAME OPERATOR 02/21/2023 8:34 AM TWISTING FRAME OPERATOR us Nidia Yanez DO LAB - BLOOD ORDERABLES Fi nal Result LABORATORY [facility] [address] Lab (1st floor, no room number) [place] [address], [facility] [phone] * (ABNORMAL) Glucose by meter (02/21/2023 1:08 AM TWISTING FRAME OPERATOR) [facility] Signature GLUCOSE BY METER POCT 131(H) 70 - 99 mg/dL 02/21/2023 1:17 AM TWISTING FRAME OPERATOR LABORATORY POC Blood, Capillary BLOOD SPECIMEN / Unknown 02/21/2023 1:08 AM TWISTING FRAME OPERATOR 02/21/2023 1:17 AM TWISTING FRAME OPERATOR us Joseph Jeffers MD LAB - BEAKER POCT Final R esult LABORATORY POC [facility] [address] Lab (1st floor, no room number) [place] [address], [place] [phone] * (ABNORMAL) Comprehensive metabolic panel (02/20/2023 8:52 AM [facility]) [facility] Sodium 135 135 - 145 mmol/L 02/20/2023 9:27 AM [facility] Comment:Reference intervals for this test were updated on 11/06/2022 to more accurately reflect our healthy population. There may be differences in the flagging of prior results with similar values performed with this method. Interpretation of those prior results can be made in the context of the updated reference intervals. Potassium 4.2 3.4 - 5.3 mmol/L 02/20/2023 9:27 AM [facility] Carbon Dioxide (CO2) 25 22 - 29 mmol/L 02/20/2023 9:27 AM [facility] Anion Gap 12 7 - 15 mmol/L 02/20/2023 9:27 AM [facility] Urea Nitrogen 34.5(H) 8.0 - 23.0 mg/dL 02/20/2023 9:27 AM [facility] Creatinine 3.81(H) 0.51 - 0.95 mg/dL 02/20/2023 9:27 AM [facility] GFR Estimate 12(L) >60 mL/min/1. 73m2 02/20/2023 9:27 AM [facility] Calcium 8.7(L) 8.8 - 10.2 mg/dL 02/20/2023 9:27 AM [facility] Chloride 98 98 - 107 mmol/L 02/20/2023 9:27 AM [facility] Glucose 112(H) 70 - 99 mg/dL 02/20/2023 9:27 AM [facility] Alkaline Phosphatase 122 40 - 150 U/L 02/20/2023 9:27 AM [facility] Comment:Reference intervals for this test were updated on 12/25/2022 to more accurately reflect our healthy population. There may be differences in the flagging of prior results with similar values performed with this method. Interpretation of those prior results can be made in the context of the updated reference intervals. AST 18 0 - 45 U/L 02/20/2023 9:27 AM [facility] Comment:Reference intervals for this test were updated on 07/23/2022 to more accurately reflect our healthy population. There may be differences in the flagging of prior results with similar values performed with this method. Interpretation of those prior results can be made in the context of the updated reference intervals. ALT 5 0 - 50 U/L 02/20/2023 9:27 AM TWISTING FRAME OPERATOR [facility] Comment:Reference intervals for this test were updated on 07/23/2022 to more accurately reflect our healthy population. There may be differences in the flagging of prior results with similar values performed with this method. Interpretation of those prior results can be made in the context of the updated reference intervals. Protein Total 6.3(L) 6.4 - 8.3 g/dL 02/20/2023 9:27 AM TWISTING FRAME OPERATOR LABORATORY Albumin 3.2(L) 3.5 - 5.2 g/dL 02/20/2023 9:27 AM TWISTING FRAME OPERATOR LABORATORY Bilirubin Total 0.2 <=1.2 mg/dL 02/20/2023 9:27 AM TWISTING FRAME OPERATOR LABORATORY Blood STRUCTURE OF LEFT UPPER LIMB / Unknown Venipuncture / Unknown 02/20/2023 8:52 AM TWISTING FRAME OPERATOR 02/20/2023 8:59 AM TWISTING FRAME OPERATOR us Kai Khan DO LAB - BLOOD ORDERABLES Fin al Result LABORATORY [facility] Lab [address] [facility] Lab (1st floor, no room number) [place] [address] [phone] * (ABNORMAL) Renal panel (12/18/2022 8:45 AM TWISTING FRAME OPERATOR) [facility] Sodium 135 135 - 145 mmol/L 12/18/2022 9:44 AM TWISTING FRAME OPERATOR [facility] Comment:Reference intervals for this test were updated on 11/06/2022 to more accurately reflect our healthy population. There may be differences in the flagging of prior results with similar values performed with this method. Interpretation of those prior results can be made in the context of the updated reference intervals. Potassium 4.2 3.4 - 5.3 mmol/L 12/18/2022 9:44 AM TWISTING FRAME OPERATOR LABORATORY Chloride 99 98 - 107 mmol/L 12/18/2022 9:44 AM TWISTING FRAME OPERATOR LABORATORY Carbon Dioxide (CO2) 29 22 - 29 mmol/L 12/18/2022 9:44 AM TWISTING FRAME OPERATOR [facility] Anion Gap 7 7 - 15 mmol/L 12/18/2022 9:44 AM [facility] Glucose 128(H) 70 - 99 mg/dL 12/18/2022 9:44 AM [facility] Urea Nitrogen 17.7 8.0 - 23.0 mg/dL 12/18/2022 9:44 AM [facility] Creatinine 2.67(H) 0.51 - 0.95 mg/dL 12/18/2022 9:44 AM [facility] GFR Estimate 18(L) >60 mL/min/1. 73m2 12/18/2022 9:44 AM [facility] Calcium 7.6(L) 8.8 - 10.2 mg/dL 12/18/2022 9:44 AM [facility] Albumin 2.6(L) 3.5 - 5.2 g/dL 12/18/2022 9:44 AM [facility] Phosphorus 2.3(L) 2.5 - 4.5 mg/dL 12/18/2022 9:44 AM [facility] Blood STRUCTURE OF RIGHT UPPER LIMB / Unknown Venipuncture / Unknown 12/18/2022 8:45 AM TWISTING FRAME OPERATOR 12/18/2022 8:50 AM TWISTING FRAME OPERATOR us David Treviño MD LAB - BLOOD ORDERABLES Final Res ult [facility] [address] Lab (1st floor, no room number) [place] [address], [facility] [phone] * Stool: occult blood (12/12/2022 11:03 PM CDT) Occult Blood Negative Negative JENNIFER 12/12/2022 11:32 PM CDT LABORATORY Stool RECTAL CONTENTS / Unknown Non-blood Collection / Unknown 12/12/2022 11:03 PM CDT 12/12/2022 11:11 PM CDT us Jason Tapia MD LAB - STOOLS ORDERABLES Final Result [facility] [address] Lab (1st floor, no room number) [place] [address], [facility] [phone] from Last 3 Months or Most Recently Relevant to Health Maintenance Insurance MEDICARE [facility] BLUE MEDICARE Advance Directives For more information, please contact: [phone] * Full Code (Latest Code Status on [...] patie nt/ legal decision maker Care Teams Steamboat Inspector Relationship Specialty Start Date End Date Tyrell Schneider [address] [place] [address] PCP - General Family Medicine 02/19/23
--- OUTSIDE RECORDS SUMMARY | 2024-04-04 09:09 | XMS_ITS | Encounter Summary ---
Author Organization [facility] Address [address] [place] [address] Care Team Providers Care Balancing Machine Set Up Worker Name Role Phone Unavailable Primary Care Provider Unavailabl e Reason for Visit * Reason Comments Med Refill Encounter Details Date Type Department Care Team ([facility] st Contact Info) Description 03/02/2024 Refill Department of Ophthalmology in [place], [place] [address] [place] [phone] Luma Solis M.D., M.S. [address] [place] [phone] Med Refill Social History Tobacco Use Types [...] on file Legal Sex Female 10:27 PM FOOT PRESS OPERATOR Gender Identity Female 01/08/2022 2:47 PM FOOT PRESS OPERATOR Sexual Orientation Straight 01/08/2022 2: 47 PM FOOT PRESS OPERATOR documented as of this encounter Plan of Treatment Not on file documented as of this encounter Visit Diagnoses Not on filedocumented in this encounter
--- OUTSIDE RECORDS SUMMARY | 2024-04-04 09:09 | XMS_ITS | Encounter Summary ---
Author Organization [facility] Address [address] [place] [address] Care Team Providers Care Cyber Intel Planner Name Role Phone Unavailable Primary Care Provider Unavailabl e Encounter Details Date Type Department Care Team (Late st Contact Info) Description 09/26/2015 Historical Ophthalmology [facility] Deann Colby M.D. [address] [place] [phone] Social History Tobacco Use Types Packs/Day Years Used Date Smoking Tobacco: Never Assessed Comments Unknown Sex and Gender Information Value Date Recorded Sex Assigned at Not on file Legal Sex Female 10:27 PM NEONATAL INTENSIVE CARE UNIT NURSE Gender Identity Female 01/08/2022 2:47 PM NEONATAL INTENSIVE CARE UNIT NURSE Sexual Orientation Straight 01/08/2022 2: 47 PM NEONATAL INTENSIVE CARE UNIT NURSE documented as of this encounter Progress Notes [...] intra-op intravitreal vancomycin and ceftazadime Seen with FOOD MIXER REPAIRER today. 26 Sep 2015: Corneal edema continues [...] vision, worsening concerns. Must come in when FOOD MIXER REPAIRER is here. Use fluorescein strips only, [...] right eye CDM Reports - [facility] Id: [id number] Status: Fnl documented in this encounter Plan of Treatment Not on file documented as of this encounter Visit Diagnoses Not on filedocumented in this encounter
--- OUTSIDE RECORDS SUMMARY | 2024-04-04 09:09 | XMS_ITS | Encounter Summary ---
Author Organization [facility] Address [address] [place] [address] Care Team Providers Care Director Of Convention Services Name Role Phone Unavailable Primary Care Provider Unavailabl e Encounter Details Date Type Department Care Team (Late st Contact Info) Description 01/23/2016 Historical Ophthalmology [facility] Deann Colby M.D. [address] [place] [phone] Social History Tobacco Use Types Packs/Day Years Used Date Smoking Tobacco: Never Assessed Comments Unknown Sex and Gender Information Value Date Recorded Sex Assigned at Not on file Legal Sex Female 10:27 PM ADMINISTRATIVE LIAISON Gender Identity Female 01/08/2022 2:47 PM ADMINISTRATIVE LIAISON Sexual Orientation Straight 01/08/2022 2: 47 PM ADMINISTRATIVE LIAISON documented as of this encounter Progress Notes [...] worsening concerns. Must come in when CLIENT TECHNICAL SUPPORT ASSOCIATE is here (preferably as COS staff). Use [...] #4 Floaters, right eye CDM Reports - [employer] Id: [id number] Status: Fnl documented in this encounter Plan of Treatment Not on file documented as of this encounter Visit Diagnoses Not on filedocumented in this encounter
--- OUTSIDE RECORDS SUMMARY | 2024-04-04 09:09 | XMS_ITS | Clinical Summary ---
Author Organization [facility] Address [address] [place] [address] Care Team Providers Care Mining Detail Draftsperson Name Role Phone Unavailable Primary Care Provider Unavailabl e Source Comments Patient records contain information from all sites at [facility]. For routine questions regarding patient records, call [phone] during business hours, M-F 8:00 AM - 5:00 PM Central Time. Record requests for emergency care only can be directed to [phone] at any time.[facility] Allergies Active Allergy Reactions Criticality Noted [...] Itching 01/09/2010 itching Niacin Itching 05/13/2006 itch [place] Rash 05/16/2010 [place] [id number]-Fish Oil Other (see comments) 01/09/2010 itching Pioglitazone [...] TIMES A DAY 3.5 g 5 Active Active Problems Problem Noted Date Diagnosed Date Diabetes Mellitus Type 2 04/25/2021 Overview (04/25/2021): A1C 7.0 8 Spinal Stenosis Lumbosacral Region 04/25/2021 Overview (04/25/2021): Added automatically from request for surgery [id number] Major Depressive Disorder, Recurrent, Unspecifie d 03/22/2021 Anemia In Chronic Kidney Disease 04/18/2018 Chronic Obstructive Pulmonary Disease 04/18/2018 Failure Renal End Stage 04/18/2018 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 Med Refill 02/07/2024 Refill Department of Ophthalmology in [place], [place] [address] [place] [address] Luma Solis M.D., M.S. Med Refill from [...] on file Legal Sex Female 10:27 PM FIELD APPRAISER Gender Identity Female 01/08/2022 2:47 PM FIELD APPRAISER Sexual Orientation Straight 01/08/2022 2: 47 PM FIELD APPRAISER Last Filed Vital Signs Vital Sign Reading [...] 75+ series) 08/30/2022 Hemoglobin A1C 01/09/2024 07/09/2023, 10/05/2022, 04/10/2022, Additional history exists Depression Monitoring (PHQ-9 for quality tracking) 02/12/2024 Fall Risk Screen (Annual) 02/12/2024 Creatinine Level (Kidney Function Test) 02/22/2024 02/21/2023, 02/20/2023, 02/19/2023, Additional history exists Potassium Level 02/22/2024 02/21/2023, 02/11, 02/19/2023, Additional history exists Sodium Level 02/22/2024 02/21/2023, 02/11, 02/19/2023, Additional history exists COVID-19 Vaccine ( season) 2024 11/22/2023, 12/25/2022, 10/25/2021, Additional history exists Dilated [...] this topic Medical Devices Implanted Type Area B2B Appointment Setter Device Identifier Shelf Expiration Date Model / Serial / Lot Cornea - [id number] [id number] Implanted:Qty: 1 on 05/13/2015 Ocular (Eye) Implant Other/Legacy - See Implant Description [place] [employer] Description:Device Manufactu rer - [place] [employer] [place] [employer]. Body Location - Other. Left. Device Status Text - [id number]. Cornea - [id number] [id number] Implanted:Qty: 1 on 06/10/2015 Ocular (Eye) Implant Other/Legacy - See Implant Description [place] [employer] [place] [employer] Description:Device Manufactu rer - [place] [employer] [place] [employer]. Body Location - Other. Left. Device Status Text - [id number]. Procedures Procedure Name Priority Date/Time Associated Diagnosis [...] A1c, B 8.1(H) 4.0 - 6.0 % [facility] 05/13/2015 11:3 1 PM CDT 05/13/2015 11:31 PM CDT Frantz Lee M.D. LAB BLOOD ADD-ON Final Resu lt Performing Organization Address [facility] Co de Phone Number [facility] [address] * (ABNORMAL) Creatinine with Estimated GFR (MDRD) (05/11/2015 11:42 AM CDT) Creatinine 1.3(H) 0.6 - 1.1 MG/DL [facility] eGFR Non-Black/Afric an Northern Irish 41(L) >60 ML/MIN/BSA [facility] eGFR-Black/Afri can Northern Irish 49(L) >60 ML/MIN/BSA [facility] 05/11/2015 11:4 2 AM CDT 05/11/2015 11:42 AM CDT Frantz Lee M.D. LAB BLOOD ADD-ON Final Resu lt Performing Organization Address [facility] Co de Phone Number [facility] [address] from Last 3 Months or Most Recently Relevant to Health Maintenance Insurance [facility] MEDICARE
--- OUTSIDE RECORDS SUMMARY | 2024-04-04 09:09 | XMS_ITS | Encounter Summary ---
Author Organization [facility] Address [address] [place] [address] Care Team Providers Care Boarding Mother Name Role Phone Unavailable Primary Care Provider Unavailabl e Encounter Details Date Type Department Care Team (Late st Contact Info) Description 08/03/2015 Historical Ophthalmology RST OPH Eva Heard M.D. [address] [facility] [address] [place] [phone] Social History Tobacco Use Types Packs/Day Years Used Date Smoking Tobacco: Never Assessed Comments Unknown Sex and Gender Information Value Date Recorded Sex Assigned at Not on file Legal Sex Female 10:27 PM HUMANITIES INSTRUCTOR Gender Identity Female 01/08/2022 2:47 PM HUMANITIES INSTRUCTOR Sexual Orientation Straight 01/08/2022 2: 47 PM HUMANITIES INSTRUCTOR documented as of this encounter Progress Notes [...] intra-op intravitreal vancomycin and ceftazadime Seen with PASSPORT SUPPORT ASSOCIATE today. 06/13/15: Paul negative. Well formed chamber, with normal IOP. Graft and sutures intact. Suture reaction most significant inferiorly, will continue pred forte TID and consider suture removal inferiorly at next visit. 06/16/15: Paul negative, formed chamber, suture reaction on all original graft sutures, no loose sutures, discussed with LJM, continue current drops and return next week when PASSPORT SUPPORT ASSOCIATE here. Seen with SCB today. 06/20/15: Paul negative, formed chamber, suture reaction decreased, seen with PASSPORT SUPPORT ASSOCIATE, M Parasol occluder placed in left lower puncum, expires 2018, LOT [id number] 06/27/15: Paul negative, increased edema over snowman [...] both eyes CDM Reports - [facility] Id: [id number] Status: Fnl documented in this encounter Plan of Treatment Not on file documented as of this encounter Visit Diagnoses Not on filedocumented in this encounter
--- OUTSIDE RECORDS SUMMARY | 2024-04-04 09:09 | XMS_ITS | Encounter Summary ---
Author Organization [facility] Address [address] [place] [address] Care Team Providers Care Zigzag Tunnel Elastic Operator Name Role Phone Unavailable Primary Care Provider Unavailabl e Encounter Details Date Type Department Care Team (Late st Contact Info) Description 08/24/2015 Historical Ophthalmology [facility] Deann Colby M.D. [address] [place] [phone] Social History Tobacco Use Types Packs/Day Years Used Date Smoking Tobacco: Never Assessed Comments Unknown Sex and Gender Information Value Date Recorded Sex Assigned at Not on file Legal Sex Female 10:27 PM CORN LAB TECHNICIAN Gender Identity Female 01/08/2022 2:47 PM CORN LAB TECHNICIAN Sexual Orientation Straight 01/08/2022 2: 47 PM CORN LAB TECHNICIAN documented as of this encounter Progress [...] intra-op intravitreal vancomycin and ceftazadime Seen with WEBMETHODS ARCHITECT today. 08/03/15: Corneal edema continues to improve. [...] vision, worsening concerns. Must come in when WEBMETHODS ARCHITECT is here. Use fluorescein strips only, not [...] #4 Floaters, right eye CDM Reports - [facility] Id: [id number] Status: Fnl documented in this encounter Plan of Treatment Not on file documented as of this encounter Visit Diagnoses Not on filedocumented in this encounter
--- OUTSIDE RECORDS SUMMARY | 2024-04-04 09:10 | XMS_ITS | Encounter Summary ---
Author Organization [facility] Address [address] [place] [address] Care Team Providers Care Chip Bin Conveyor Tender Name Role Phone Unavailable Primary Care Provider Unavailabl e Encounter Details Date Type Department Care Team (Late st Contact Info) Description 05/11/2015 Historical Ophthalmology [facility] O[facility] Frantz Lee M.D. [address] [place] [phone] Social History Tobacco Use Types Packs/Day Years Used Date Smoking Tobacco: Never Assessed Comments Unknown Sex and Gender Information Value Date Recorded Sex Assigned at Not on file Legal Sex Female 10:27 PM CELL PHONE REPAIR TECHNICIAN Gender Identity Female 01/08/2022 2:47 PM CELL PHONE REPAIR TECHNICIAN Sexual Orientation Straight 01/08/2022 2: 47 PM CELL PHONE REPAIR TECHNICIAN documented as of this encounter Progress [...] left eye CDM Reports - [facility] Id: [id number] Status: Fnl documented in this encounter Plan of Treatment Not on file documented as of this encounter Visit Diagnoses Not on filedocumented in this encounter
--- OUTSIDE RECORDS SUMMARY | 2024-04-04 09:10 | XMS_ITS | Encounter Summary ---
Author Organization [facility] Address [address] [place] [address] Care Team Providers Care Welding Machine Operator Electroslag Name Role Phone Unavailable Primary Care Provider Unavailabl e Encounter Details Date Type Department Care Team (Late st Contact Info) Description 05/20/2015 Historical Ophthalmology RST OPH Eva Heard M.D. [address] [facility] 200 [place] [phone] Social History Tobacco Use Types Packs/Day Years Used Date Smoking Tobacco: Never Assessed Comments Unknown Sex and Gender Information Value Date Recorded Sex Assigned at Not on file Legal Sex Female 10:27 PM APPLE PRESS OPERATOR Gender Identity Female 01/08/2022 2:47 PM APPLE PRESS OPERATOR Sexual Orientation Straight 01/08/2022 2: 47 PM APPLE PRESS OPERATOR documented as of this encounter Progress [...] Saturday. s/p intra-op subconj Dex Seen with PROSECUTING ATTORNEY today Plan: Alternate every 2 hours with [...] right eye CDM Reports - [facility] Id: [id number] Status: Fnl documented in this encounter Plan of Treatment Not on file documented as of this encounter Visit Diagnoses Not on filedocumented in this encounter
--- OUTSIDE RECORDS SUMMARY | 2024-04-04 09:10 | XMS_ITS | Encounter Summary ---
Author Organization [facility] Address [address] [place] [address] Care Team Providers Care Diamond Sizer And Sorter Name Role Phone Unavailable Primary Care Provider Unavailabl e Encounter Details Date Type Department Care Team (Late st Contact Info) Description 06/11/2016 Historical Ophthalmology RST OPH Deann Colby M.D. [address] [place] [phone] Social History Tobacco Use Types Packs/Day Years Used Date Smoking Tobacco: Never Assessed Comments Unknown Sex and Gender Information Value Date Recorded Sex Assigned at Not on file Legal Sex Female 10:27 PM BRAND REPRESENTATIVE Gender Identity Female 01/08/2022 2:47 PM BRAND REPRESENTATIVE Sexual Orientation Straight 01/08/2022 2: 47 PM BRAND REPRESENTATIVE documented as of this encounter Progress [...] today nearly 1 year after surgery with GIRL FRIDAY. Exam is stable with 1 loose suture. [...] right eye CDM Reports - [facility] Id: [id number] Status: Fnl documented in this encounter Plan of Treatment Not on file documented as of this encounter Visit Diagnoses Not on filedocumented in this encounter
--- OUTSIDE RECORDS SUMMARY | 2024-04-04 09:10 | XMS_ITS | Encounter Summary ---
Author Organization [facility] Address [address] [place] [address] Care Team Providers Care Territory Sales Executive Name Role Phone Unavailable Primary Care Provider Unavailabl e Encounter Details Date Type Department Care Team (Late st Contact Info) Description 05/24/2015 Historical Ophthalmology RST OPH Eva Heard M.D. [address] [facility] [address] [place] [phone] Social History Tobacco Use Types Packs/Day Years Used Date Smoking Tobacco: Never Assessed Comments Unknown Sex and Gender Information Value Date Recorded Sex Assigned at Not on file Legal Sex Female 10:27 PM MEDICAL OFFICE REPRESENTATIVE Gender Identity Female 01/08/2022 2:47 PM MEDICAL OFFICE REPRESENTATIVE Sexual Orientation Straight 01/08/2022 2: 47 PM MEDICAL OFFICE REPRESENTATIVE documented as of this encounter Progress [...] Saturday. s/p intra-op subconj Dex Seen with COMMUNITY RELATIONS LIAISON today Plan: Alternate every 2 hours with [...] diabetic retinopathy, right eye CDM Reports - [employer] Id: [id number] Status: Fnl documented in this encounter Plan of Treatment Not on file documented as of this encounter Visit Diagnoses Not on filedocumented in this encounter
--- OUTSIDE RECORDS SUMMARY | 2024-04-04 09:10 | XMS_ITS | Encounter Summary ---
Author Organization [facility] Address [address] [place] [address] Care Team Providers Care Caramel Candy Maker Helper Name Role Phone Unavailable Primary Care Provider Unavailabl e Encounter Details Date Type Department Care Team (Late st Contact Info) Description 04/17/2016 Historical Ophthalmology RST OPH Daniel Clements M.D. [address] [place] [phone] Social History Tobacco Use Types Packs/Day Years Used Date Smoking Tobacco: Never Assessed Comments Unknown Sex and Gender Information Value Date Recorded Sex Assigned at Not on file Legal Sex Female 10:27 PM MANAGER CORE Gender Identity Female 01/08/2022 2:47 PM MANAGER CORE Sexual Orientation Straight 01/08/2022 2: 47 PM MANAGER CORE documented as of this encounter Progress Notes * Daniel Clements M.D. - 04/17/2016 9:37 AM CST Eye General CHIEF COMPLAINT Left eye itching all night long; 2.5 weeks; tearing a little. HISTORY OF PRESENT ILLNESS [place] over left eye pupil. No eye pain. [...] right eye CDM Reports - [facility] Id: [id number] Status: Fnl documented in this encounter Plan of Treatment Not on file documented as of this encounter Visit Diagnoses Not on filedocumented in this encounter
--- OUTSIDE RECORDS SUMMARY | 2024-04-04 09:10 | XMS_ITS | Encounter Summary ---
Author Organization [facility] Address [address] [place] [address] Care Team Providers Care Clinical Research Scientist Name Role Phone Unavailable Primary Care Provider Unavailabl e Encounter Details Date Type Department Care Team (Late st Contact Info) Description 06/13/2015 Historical Ophthalmology RST OPH Maricruz Garcia M.D. Social History Tobacco Use Types Packs/Day Years Used Date Smoking Tobacco: Never Assessed Comments Unknown Sex and Gender Information Value Date Recorded Sex Assigned at Not on file Legal Sex Female 10:27 PM CURRICULUM AND ASSESSMENT COORDINATOR Gender Identity Female 01/08/2022 2:47 PM CURRICULUM AND ASSESSMENT COORDINATOR Sexual Orientation Straight 01/08/2022 2: 47 PM CURRICULUM AND ASSESSMENT COORDINATOR documented as of this encounter Progress [...] Monocular status CDM Reports - [facility] Id: [id number] Status: Fnl documented in this encounter Plan of Treatment Not on file documented as of this encounter Visit Diagnoses Not on filedocumented in this encounter
--- OUTSIDE RECORDS SUMMARY | 2024-04-04 09:10 | XMS_ITS | Encounter Summary ---
Author Organization [facility] Address [address] [place] [address] Care Team Providers Care Die Try Out Worker Stamping Name Role Phone Unavailable Primary Care Provider Unavailabl e Encounter Details Date Type Department Care Team (Late st Contact Info) Description 05/12/2015 Historical Ophthalmology RST OPH Frantz Lee M.D. [address] [place] [phone] Social History Tobacco Use Types Packs/Day Years Used Date Smoking Tobacco: Never Assessed Comments Unknown Sex and Gender Information Value Date Recorded Sex Assigned at Not on file Legal Sex Female 10:27 PM SODA CLERK Gender Identity Female 01/08/2022 2:47 PM SODA CLERK Sexual Orientation Straight 01/08/2022 2: 47 PM SODA CLERK documented as of this encounter Progress [...] left eye CDM Reports - [facility] Id: [id number] Status: Fnl documented in this encounter Plan of Treatment Not on file documented as of this encounter Visit Diagnoses Not on filedocumented in this encounter
--- OUTSIDE RECORDS SUMMARY | 2024-04-04 09:10 | XMS_ITS | Encounter Summary ---
Author Organization [facility] Address [address] [place] [address] Care Team Providers Care Water Service Dispatcher Name Role Phone Unavailable Primary Care Provider Unavailabl e Encounter Details Date Type Department Care Team (Late st Contact Info) Description 07/18/2015 Historical Ophthalmology RST OPH Eva Heard M.D. [address] [facility] 200 [place] [phone] Social History Tobacco Use Types Packs/Day Years Used Date Smoking Tobacco: Never Assessed Comments Unknown Sex and Gender Information Value Date Recorded Sex Assigned at Not on file Legal Sex Female 10:27 PM INVESTMENT STRATEGIST Gender Identity Female 01/08/2022 2:47 PM INVESTMENT STRATEGIST Sexual Orientation Straight 01/08/2022 2: 47 PM INVESTMENT STRATEGIST documented as of this encounter Progress Notes [...] intra-op intravitreal vancomycin and ceftazadime Seen with WINDSHIELD TECHNICIAN today. 06/13/15: Paul negative. Well formed chamber, with normal IOP. Graft and sutures intact. Suture reaction most significant inferiorly, will continue pred forte TID and consider suture removal inferiorly at next visit. 06/16/15: Paul negative, formed chamber, suture reaction on all original graft sutures, no loose sutures, discussed with LJM, continue current drops and return next week when WINDSHIELD TECHNICIAN here. Seen with SCB today. 06/20/15: Paul negative, formed chamber, suture reaction decreased, seen with WINDSHIELD TECHNICIAN, M Parasol occluder placed in left [facility], expires 2018, LOT [id number] 06/27/15: Paul negative, increased edema over snowman [...] Monocular status CDM Reports - [facility]YEGEN Id: [id number] Status: Fnl documented in this encounter Plan of Treatment Not on file documented as of this encounter Visit Diagnoses Not on filedocumented in this encounter
--- OUTSIDE RECORDS SUMMARY | 2024-04-04 09:10 | XMS_ITS | Encounter Summary ---
Author Organization [facility] Address [address] [place] [address] Care Team Providers Care Vocational Nurse Name Role Phone Unavailable Primary Care Provider Unavailabl e Encounter Details Date Type Department Care Team (Late st Contact Info) Description 05/13/2015 Historical Ophthalmology RST OPH Frantz Lee M.D. [address] [place] [phone] Social History Tobacco Use Types Packs/Day Years Used Date Smoking Tobacco: Never Assessed Comments Unknown Sex and Gender Information Value Date Recorded Sex Assigned at Not on file Legal Sex Female 10:27 PM ENERGY EFFICIENCY SPECIALIST Gender Identity Female 01/08/2022 2:47 PM ENERGY EFFICIENCY SPECIALIST Sexual Orientation Straight 01/08/2022 2: 47 PM ENERGY EFFICIENCY SPECIALIST documented as of this encounter Progress [...] follow with her PCP for diabetes management. POLE FRAME CONSTRUCTION WORKER ([id number]): I interviewed and examined the patient and [...] Corneal ulcer, left eye CDM Reports - [employer] Id: [id number] Status: Fnl documented in this encounter Plan of Treatment Not on file documented as of this encounter Visit Diagnoses Not on filedocumented in this encounter
--- OUTSIDE RECORDS SUMMARY | 2024-04-04 09:10 | XMS_ITS | Encounter Summary ---
Author Organization [facility] Address [address] [place] [address] Care Team Providers Care Medical Authorization Specialist Name Role Phone Unavailable Primary Care Provider Unavailabl e Encounter Details Date Type Department Care Team (Late st Contact Info) Description 03/12/2016 Historical Ophthalmology RST OPH Daniel Clements M.D. [address] [place] [phone] Social History Tobacco Use Types Packs/Day Years Used Date Smoking Tobacco: Never Assessed Comments Unknown Sex and Gender Information Value Date Recorded Sex Assigned at Not on file Legal Sex Female 10:27 PM VIROLOGY TEACHER Gender Identity Female 01/08/2022 2:47 PM VIROLOGY TEACHER Sexual Orientation Straight 01/08/2022 2: 47 PM VIROLOGY TEACHER documented as of this encounter Progress [...] vision, worsening concerns. Must come in when WILDLIFE BIOLOGY TECHNICIAN is here (preferably as COS staff). [...] right eye CDM Reports - [facility]YE[facility] Id: [id number] Status: Fnl documented in this encounter Plan of Treatment Not on file documented as of this encounter Visit Diagnoses Not on filedocumented in this encounter
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
--- OUTSIDE RECORDS SUMMARY | 2024-04-04 09:10 | XMS_ITS | Encounter Summary ---
Author Organization [facility] Address [address] [place] [address] Care Team Providers Care Rayon Coner Name Role Phone Unavailable Primary Care Provider Unavailabl e Encounter Details Date Type Department Care Team (Late st Contact Info) Description 07/12/2016 Historical Ophthalmology RST OPH Deann Colby M.D. [address] [place] [phone] Social History Tobacco Use Types Packs/Day Years Used Date Smoking Tobacco: Never Assessed Comments Unknown Sex and Gender Information Value Date Recorded Sex Assigned at Not on file Legal Sex Female 10:27 PM HEALTH CARE SPECIALIST Gender Identity Female 01/08/2022 2:47 PM HEALTH CARE SPECIALIST Sexual Orientation Straight 01/08/2022 2: 47 PM HEALTH CARE SPECIALIST documented as of this encounter Progress [...] today nearly 1 year after surgery with SUPERVISOR CARPENTERS. Exam is stable with 1 loose suture. IOP stable. Removed 11 sutures in total today. Continue prednisolone 1 x daily. Refresh tears 4x daily. RTC 4-6 weeks with refraction when Dr. Payton is in clinic. 12 Jul 2016: Seen with SUPERVISOR CARPENTERS. Exam stable with 1 loose suture. IOP [...] sent to Benigno Bishop, OD, FAAO at [facility] who also cares for Ms. Vanegas. Recommend he recheck IOP and visual acuity in 4 months. 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 Return to [place] PR[facility]. #2 Background diabetic retinopathy, right eye [...] right eye CDM Reports - EYEGEN Id: [id number] Status: Fnl documented in this encounter Plan of Treatment Not on file documented as of this encounter Visit Diagnoses Not on filedocumented in this encounter
--- OUTSIDE RECORDS SUMMARY | 2024-04-04 09:10 | XMS_ITS | Encounter Summary ---
Author Organization [facility] Address [address] [place] [address] Care Team Providers Care Candle Wrapping Machine Operator Name Role Phone Unavailable Primary Care Provider Unavailabl e Encounter Details Date Type Department Care Team (Late st Contact Info) Description 06/13/2015 Historical Ophthalmology RST OPH Maricruz Garcia M.D. Social History Tobacco Use Types Packs/Day Years Used Date Smoking Tobacco: Never Assessed Comments Unknown Sex and Gender Information Value Date Recorded Sex Assigned at Not on file Legal Sex Female 10:27 PM EMR ANALYST Gender Identity Female 01/08/2022 2:47 PM EMR ANALYST Sexual Orientation Straight 01/08/2022 2: 47 PM EMR ANALYST documented as of this encounter Progress Notes * Maricruz Garcia M.D. - 06/13/2015 3:08 PM CDT Eye Postoperative MULTI-VISIT DOCUMENT This document contains multiple patient visits and is available for review in Document Viewer. CDM Reports - EYEPO Id: [id number] Status: Fnl documented in this encounter Plan of Treatment Not on file documented as of this encounter Visit Diagnoses Not on filedocumented in this encounter
--- OUTSIDE RECORDS SUMMARY | 2024-04-04 09:10 | XMS_ITS | Encounter Summary ---
Author Organization [facility] Address [address] [place] [address] Care Team Providers Care Electrical Manager Name Role Phone Unavailable Primary Care Provider Unavailabl e Encounter Details Date Type Department Care Team (Late st Contact Info) Description 05/09/2015 Historical Ophthalmology RST OPH Frantz Lee M.D. [address] [place] [phone] Social History Tobacco Use Types Packs/Day Years Used Date Smoking Tobacco: Never Assessed Comments Unknown Sex and Gender Information Value Date Recorded Sex Assigned at Not on file Legal Sex Female 10:27 PM EVENING SITTER Gender Identity Female 01/08/2022 2:47 PM EVENING SITTER Sexual Orientation Straight 01/08/2022 2: 47 PM EVENING SITTER documented as of this encounter Progress Notes [...] to the eye doctor this morning in [facility]. States that she lost the drop [...] left eye CDM Reports - EYEGEN Id: [id number] Status: Fnl documented in this encounter Plan of Treatment Not on file documented as of this encounter Visit Diagnoses Not on filedocumented in this encounter
--- OUTSIDE RECORDS SUMMARY | 2024-04-04 09:10 | XMS_ITS | Encounter Summary ---
Author Organization [facility] Address [address] [place] [address] Care Team Providers Care Reading Coach Name Role Phone Unavailable Primary Care Provider Unavailabl e Encounter Details Date Type Department Care Team (Late st Contact Info) Description 07/12/2015 Historical Ophthalmology RST OPH Eva Heard M.D. [address] [facility] [address] [place] [phone] Social History Tobacco Use Types Packs/Day Years Used Date Smoking Tobacco: Never Assessed Comments Unknown Sex and Gender Information Value Date Recorded Sex Assigned at Not on file Legal Sex Female 10:27 PM BUSINESS TRANSFORMATION CONSULTANT Gender Identity Female 01/08/2022 2:47 PM BUSINESS TRANSFORMATION CONSULTANT Sexual Orientation Straight 01/08/2022 2: 47 PM BUSINESS TRANSFORMATION CONSULTANT documented as of this encounter Progress Notes [...] intra-op intravitreal vancomycin and ceftazadime Seen with SUPERVISOR BINDERY today. 06/13/15: Paul negative. Well formed chamber, with normal IOP. Graft and sutures intact. Suture reaction most significant inferiorly, will continue pred forte TID and consider suture removal inferiorly at next visit. 06/16/15: Paul negative, formed chamber, suture reaction on all original graft sutures, no loose sutures, discussed with LJM, continue current drops and return next week when SUPERVISOR BINDERY here. Seen with SCB today. 06/20/15: Paul negative, formed chamber, suture reaction decreased, seen with SUPERVISOR BINDERY, M Parasol occluder placed in left lower puncum, expires 2018, LOT [id number] 06/27/15: Paul negative, increased edema over snowman [...] Monocular status CDM Reports - EYEGEN Id: [id number] Status: Fnl documented in this encounter Plan of Treatment Not on file documented as of this encounter Visit Diagnoses Not on filedocumented in this encounter
--- OUTSIDE RECORDS SUMMARY | 2024-04-04 09:10 | XMS_ITS | Encounter Summary ---
Author Organization [facility] Address [address] [place] [address] Care Team Providers Care Data Visualization Developer Name Role Phone Unavailable Primary Care Provider Unavailabl e Encounter Details Date Type Department Care Team (Late st Contact Info) Description 06/05/2016 Historical Ophthalmology RST OPH Deann Colby M.D. [address] [place] [phone] Social History Tobacco Use Types Packs/Day Years Used Date Smoking Tobacco: Never Assessed Comments Unknown Sex and Gender Information Value Date Recorded Sex Assigned at Not on file Legal Sex Female 10:27 PM CARTON AND CAN SUPPLY SUPERVISOR Gender Identity Female 01/08/2022 2:47 PM CARTON AND CAN SUPPLY SUPERVISOR Sexual Orientation Straight 01/08/2022 2: 47 PM CARTON AND CAN SUPPLY SUPERVISOR documented as of this encounter Progress [...] in clinic. CDM Reports - EYEGEN Id: [id number] Status: Fnl documented in this encounter Plan of Treatment Not on file documented as of this encounter Visit Diagnoses Not on filedocumented in this encounter
--- OUTSIDE RECORDS SUMMARY | 2024-04-04 09:10 | XMS_ITS | Encounter Summary ---
Author Organization [facility] Address [address] [place] [address] Care Team Providers Care Collections Clerk Name Role Phone Unavailable Primary Care Provider Unavailabl e Encounter Details Date Type Department Care Team (Late st Contact Info) Description 07/04/2015 Historical Ophthalmology RST OPH Eva Heard M.D. [address] [facility] [address] [place] [phone] Social History Tobacco Use Types Packs/Day Years Used Date Smoking Tobacco: Never Assessed Comments Unknown Sex and Gender Information Value Date Recorded Sex Assigned at Not on file Legal Sex Female 10:27 PM PERSONAL CARE SERVICE PROVIDER Gender Identity Female 01/08/2022 2:47 PM PERSONAL CARE SERVICE PROVIDER Sexual Orientation Straight 01/08/2022 2: 47 PM PERSONAL CARE SERVICE PROVIDER documented as of this encounter Progress Notes * Eva Heard M.D. - 07/04/2015 9:39 AM CDT Eye Postoperative MULTI-VISIT DOCUMENT This document contains multiple patient visits and is available for review in Document Viewer. CDM Reports - EYEPO Id: [id number] Status: Fnl documented in this encounter Plan of Treatment Not on file documented as of this encounter Visit Diagnoses Not on filedocumented in this encounter
--- OUTSIDE RECORDS SUMMARY | 2024-04-04 09:10 | XMS_ITS | Encounter Summary ---
Author Organization [facility] Address [address] [place] [address] Care Team Providers Care Personal Computer Network Engineer Name Role Phone Unavailable Primary Care Provider Unavailabl e Encounter Details Date Type Department Care Team (Late st Contact Info) Description 05/10/2015 Historical Ophthalmology RST OPH Frantz Lee M.D. [address] [place] [phone] Social History Tobacco Use Types Packs/Day Years Used Date Smoking Tobacco: Never Assessed Comments Unknown Sex and Gender Information Value Date Recorded Sex Assigned at Not on file Legal Sex Female 10:27 PM SENIOR RESEARCH FELLOW Gender Identity Female 01/08/2022 2:47 PM SENIOR RESEARCH FELLOW Sexual Orientation Straight 01/08/2022 2: 47 PM SENIOR RESEARCH FELLOW documented as of this encounter Progress Notes [...] left eye CDM Reports - EYEGEN Id: [id number] Status: Fnl documented in this encounter Plan of Treatment Not on file documented as of this encounter Visit Diagnoses Not on filedocumented in this encounter
--- OUTSIDE RECORDS SUMMARY | 2024-04-04 09:10 | XMS_ITS | Encounter Summary ---
Author Organization [facility] Address [address] [place] [address] Care Team Providers Care Radiology Ct Technologist Name Role Phone Unavailable Primary Care Provider Unavailabl e Encounter Details Date Type Department Care Team (Late st Contact Info) Description 05/14/2015 Historical Ophthalmology RST OPH Maricruz Garcia M.D. Social History Tobacco Use Types Packs/Day Years Used Date Smoking Tobacco: Never Assessed Comments Unknown Sex and Gender Information Value Date Recorded Sex Assigned at Not on file Legal Sex Female 10:27 PM FILLING LAYER UP Gender Identity Female 01/08/2022 2:47 PM FILLING LAYER UP Sexual Orientation Straight 01/08/2022 2: 47 PM FILLING LAYER UP documented as of this encounter Progress Notes [...] washout 05/13/15 CDM Reports - EYEGEN Id: [id number] Status: Fnl documented in this encounter Plan of Treatment Not on file documented as of this encounter Visit Diagnoses Not on filedocumented in this encounter
--- NOTE | 2024-04-04 09:46 | CRLHL7_ITS ---
For Patients: As a result of the Century Cures Act, medical imaging exams and procedure reports are released immediately into your electronic medical record. You may view this report before your referring provider. If you have questions, please contact your health care provider. INDICATION: Dyspnea COMPARISON: March 30, 2024 TECHNIQUE: Single-view chest obtained portably FINDINGS: TUBES AND LINES: None. HEART AND MEDIASTINUM: The heart size is normal. The mediastinal contour appears normal for patient age. LUNGS AND PLEURAL SPACES: Moderate to severe diffuse multifocal airspace disease.The pleural spaces are unremarkable. OSSEOUS STRUCTURES: Age-appropriate appearance. No acute focal finding. IMPRESSION: Moderate to severe diffuse multifocal airspace disease. This has substantially worsened since the prior study. Dictated by Morgan Gruber MD @ 04/04/2024 10:58:50 AM (Electronically Signed)
--- NOTE | 2024-04-04 09:52 | ED.SOB ---
HPI - SOB/Dyspnea General Chief Complaint: Shortness of Breath/Dyspnea Stated Complaint: Shortness of Breath Time Seen by Provider: 04/04/24 09:41 History of Present Illness HPI Narrative: This 78-year-old female comes in by ambulance because of shortness of breath. She was recently hospitalized for pneumonia and discharged from a hospital yesterday. She states there was an arrangement to have someone come and drive her to dialysis yesterday as scheduled but no but he came for her. She gets dialysis 3 times a week and this was to occur yesterday. She comes in by ambulance now today feeling worse and arrives here with nasal cannula at 3 L maintaining oximetry at 91-92%. Ambulance personnel states that her oximetry was 85% on room air. She does not normally use oxygen at home. She was prescribed an antibiotic but apparently has not taken anything. Related Data Home Medications ?Medication ?Instructions ?Recorded ?Confirmed albuterol sulfate 2.5 mg/3 mL 2.5 mg Q4H PRN dyspnea 11/28/22 (0.083 %) solution for nebulization aspirin 81 mg capsule 81 mg PO DAILY 11/28/22 04/04/24 clonidine HCl 0.1 mg tablet 0.1 mg PO DIRECTED 11/28/22 04/04/24 furosemide 40 mg tablet 40 mg PO QAM 11/28/22 04/04/24 labetalol 300 mg tablet 300 mg PO 3XD 11/28/22 04/04/24 oxycodone 5 mg tablet 5 mg PO BID PRN 11/28/22 04/04/24 repaglinide 1 mg tablet 1 mg PO 3XD 11/28/22 04/04/24 sennosides 8.6 mg tablet (senna) 8.6 - 34.4 mg PO DAILY PRN 11/28/22 04/04/24 sorbitol 70 % solution 30 ml PO DAILY PRN constipation 11/28/22 04/04/24 albuterol sulfate 90 mcg/actuation 2 puff inhalation BID 12/03/23 04/04/24 aerosol inhaler calcium acetate(phosphat bind) 667 1,334 mg PO 3XD 12/03/23 12/03/23 mg capsule dextran 70-hypromellose (PF) 0.1 1 drp ophthalmic (eye) DIRECTED 10/22/24 02/22/25 %-0.3 % eye drops in a dropperette (Bion Tears (PF)) ipratropium 0.5 mg-albuterol 3 mg 3 ml inhalation Q6H PRN dyspnea 12/03/23 04/04/24 (2.5 mg base)/3 mL nebulization soln nifedipine 90 mg tablet,extended 90 mg PO DAILY 12/03/23 12/03/23 release 24 hr pantoprazole 40 mg tablet,delayed 40 mg PO BID 12/03/23 12/03/23 release spironolactone 25 mg tablet 25 mg PO DAILY 12/03/23 04/04/24 umeclidinium 62.5 mcg/actuation 1 inh inhalation DAILY 12/03/23 12/03/23 blister powder for inhalation (Incruse Ellipta) azithromycin 500 mg tablet mg DAILY 04/04/24 cefdinir 300 mg capsule mg 04/04/24 cetirizine 04/04/24 erythromycin ointment 04/04/24 fluticasone 250 mcg-salmeterol 50 1 inh inhalation Q12H 04/04/24 04/04/24 mcg/dose blistr powdr for inhalation (Advair Diskus) nifedipine 60 mg tablet,extended mg PO 04/04/24 release 24 hr triamcinolone acetonide 0.1 % applic topical BID 04/04/24 topical cream Allergies Allergy/AdvReac Type Severity Reaction Status Date / Time atenolol Allergy Unknown Rash Verified 12/03/23 19:43 atorvastatin (From Lipitor) Allergy Unknown Verified 12/03/23 19:43 cat dander Allergy Unknown Difficulty Verified 12/03/23 19:43 Breathing dog dander Allergy Unknown Sneezing Verified 12/03/23 19:43 zarco Allergy Unknown Edema Verified 12/03/23 19:43 gemfibrozil Allergy Unknown Verified 12/03/23 19:43 hydrochlorothiazide Allergy Unknown Rash Verified 12/03/23 19:43 losartan Allergy Unknown Verified 12/03/23 19:43 niacin Allergy Unknown Verified 12/03/23 19:43 oak Allergy Unknown Rash Verified 12/03/23 19:43 pioglitazone Allergy Unknown Verified 12/03/23 19:43 ampicillin Allergy Hives Verified 12/03/23 19:43 dulaglutide (From Trulicity) AdvReac Unknown Vomiting Verified 12/03/23 19:43 pravastatin AdvReac Unknown Verified 12/03/23 19:43 simvastatin AdvReac Unknown Verified 12/03/23 19:43 gatifloxacin (From Tequin) AdvReac Nausea Verified 12/03/23 19:43 lisinopril AdvReac Cough Verified 12/03/23 19:43 Review of Systems Status of ROS: Reports: 10 or more systems reviewed and unremarkable except as noted in History and below Narrative: Constitutional: No fevers, no weight gain or loss. Eyes: No discharge. No vision changes. HENT: No congestion, no sore throat, no ear pain. Cardiovascular: No chest pain, no palpitations. Respiratory: Cough and shortness of breath. Gastrointestinal: No abdominal pain, no vomiting, no diarrhea. Genitourinary: No dysuria, no hematuria. Musculoskeletal: Normal range of motion. Skin: No rashes, no pruritis. Neurological: No dizziness, weakness, sensory change, speech change. Endo/Heme/Allergies: No bruising or bleeding. No polydipsia. Pysch: no suicidality, no anxiety, no insomnia. All other systems reviewed and are negative. [facility] Social History Smoking Status: Current some day smoker What tobacco products do you use: cigarettes Do you use any of these nicotine containing products: None Second hand tobacco smoke exposure: No How often do you have a drink containing alcohol: never AUDIT-C Alcohol total score: 0 Non-prescribed substance use: denies use Exam Narrative: Exam Narrative: Constitutional: No acute distress. HEENT: Normocephalic, atraumatic. Neck: Normal range of motion. Nontender. Supple. Heart: Regular. No murmurs. Normal rate. Intact distal pulses. Lungs: Bilateral wheezes and rhonchi with some increased work of breathing. Abdomen: Normal bowel sounds. Nontender. No rebound tenderness. Genitalia: Deferred. Back: No midline tenderness. Normal range of motion. Extremities: Normal range of motion. No injury. Skin: Intact. No rash. Warm. No erythema or pallor. Neurologic: No altered sensation. No weakness. Alert and oriented. Psychiatric: No suicidality. No anxiety or depression. No insomnia. Nursing notes and vitals signs are reviewed. Const: Vital Signs, click to edit/add: Vital Signs - 24 hr 04/04/24 09:14 04/04/24 09:14 04/04/24 09:14 Temperature 97 F L Pulse Rate Pulse Rate [Pulse Oximeter] 62 Respiratory Rate 20 Blood Pressure Blood Pressure [Ri ght Upper Arm] 192/63 H Pulse Oximetry 91 91 91 Oxygen Delivery Me thod Nasal Cannula Nasal Cannula Oxygen Flow Rate 4 Fraction of Inspir ed Oxygen 04/04/24 09:19 04/04/24 09:30 04/04/24 09:33 Temperature Pulse Rate 61 59 L 58 L Pulse Rate [Pulse Oximeter] Respiratory Rate Blood Pressure 175/67 H Blood Pressure [Ri ght Upper Arm] Pulse Oximetry 91 89 90 Oxygen Delivery Me thod Oxygen Flow Rate Fraction of Inspir ed Oxygen 04/04/24 10:00 04/04/24 10:03 04/04/24 10:19 Temperature Pulse Rate 67 67 69 Pulse Rate [Pulse Oximeter] Respiratory Rate Blood Pressure 185/63 H Blood Pressure [Ri ght Upper Arm] Pulse Oximetry 94 100 84 L Oxygen Delivery Me thod Oxygen Flow Rate Fraction of Inspir ed Oxygen 04/04/24 10:30 04/04/24 10:33 04/04/24 11:00 Temperature Pulse Rate 64 65 64 Pulse Rate [Pulse Oximeter] Respiratory Rate Blood Pressure 176/80 H Blood Pressure [Ri ght Upper Arm] Pulse Oximetry 80 L 100 92 Oxygen Delivery Me thod Oxygen Flow Rate Fraction of Inspir ed Oxygen 04/04/24 11:00 04/04/24 11:00 04/04/24 11:00 Temperature Pulse Rate Pulse Rate [Pulse Oximeter] Respiratory Rate 20 Blood Pressure Blood Pressure [Ri ght Upper Arm] Pulse Oximetry 91 Oxygen Delivery Me thod BiPAP Oxygen Flow Rate 40 Fraction of Inspir ed Oxygen 50 100 60 04/04/24 11:04 04/04/24 11:30 04/04/24 11:32 Temperature Pulse Rate 60 57 L 57 L Pulse Rate [Pulse Oximeter] Respiratory Rate Blood Pressure 192/72 H 181/73 H Blood Pressure [Ri ght Upper Arm] Pulse Oximetry 91 90 90 Oxygen Delivery Me thod Oxygen Flow Rate Fraction of Inspir ed Oxygen 04/04/24 12:00 04/04/24 12:02 04/04/24 12:30 Temperature Pulse Rate 55 L 55 L 57 L Pulse Rate [Pulse Oximeter] Respiratory Rate Blood Pressure 181/79 H Blood Pressure [Ri ght Upper Arm] Pulse Oximetry 91 91 91 Oxygen Delivery Me thod Oxygen Flow Rate Fraction of Inspir ed Oxygen 04/04/24 12:33 04/04/24 13:00 04/04/24 13:02 Temperature Pulse Rate 58 L 59 L 60 Pulse Rate [Pulse Oximeter] Respiratory Rate Blood Pressure 127/107 H 122/66 Blood Pressure [Ri ght Upper Arm] Pulse Oximetry 89 87 L 87 L Oxygen Delivery Me thod Oxygen Flow Rate Fraction of Inspir ed Oxygen 04/04/24 13:30 04/04/24 13:34 04/04/24 13:35 Temperature Pulse Rate 68 68 67 Pulse Rate [Pulse Oximeter] Respiratory Rate 23 18 18 Blood Pressure 189/76 H Blood Pressure [Ri ght Upper Arm] Pulse Oximetry 86 L 91 93 Oxygen Delivery Me thod Oxygen Flow Rate Fraction of Inspir ed Oxygen 04/04/24 14:00 04/04/24 14:03 04/04/24 14:30 Temperature Pulse Rate 65 69 65 Pulse Rate [Pulse Oximeter] Respiratory Rate 31 H 24 15 Blood Pressure 164/100 H Blood Pressure [Ri ght Upper Arm] Pulse Oximetry 94 90 94 Oxygen Delivery Me thod Oxygen Flow Rate Fraction of Inspir ed Oxygen 04/04/24 14:32 04/04/24 15:00 04/04/24 15:03 Temperature 98.6 F Pulse Rate 63 61 61 Pulse Rate [Pulse Oximeter] Respiratory Rate 18 16 16 Blood Pressure 177/76 H 202/77 H Blood Pressure [Ri ght Upper Arm] Pulse Oximetry 95 93 94 Oxygen Delivery Me thod Oxygen Flow Rate Fraction of Inspir ed Oxygen 04/04/24 15:30 04/04/24 15:32 04/04/24 16:00 Temperature Pulse Rate 59 L 58 L 59 L Pulse Rate [Pulse Oximeter] Respiratory Rate 14 14 15 Blood Pressure 201/78 H Blood Pressure [Ri ght Upper Arm] Pulse Oximetry 95 95 93 Oxygen Delivery Me thod Oxygen Flow Rate Fraction of Inspir ed Oxygen 04/04/24 16:02 04/04/24 16:13 04/04/24 16:30 Temperature Pulse Rate 56 L 64 Pulse Rate [Pulse Oximeter] Respiratory Rate 15 21 Blood Pressure 194/77 H Blood Pressure [Ri ght Upper Arm] Pulse Oximetry 91 93 Oxygen Delivery Me thod Oxygen Flow Rate Fraction of Inspir ed Oxygen 60 04/04/24 16:32 04/04/24 17:00 04/04/24 17:03 Temperature Pulse Rate 64 71 71 Pulse Rate [Pulse Oximeter] Respiratory Rate 20 19 54 H Blood Pressure 196/70 H 192/91 H Blood Pressure [Ri ght Upper Arm] Pulse Oximetry 94 92 92 Oxygen Delivery Me thod Oxygen Flow Rate Fraction of Inspir ed Oxygen 04/04/24 17:30 Temperature Pulse Rate Pulse Rate [Pulse Oximeter] Respiratory Rate 27 H Blood Pressure Blood Pressure [Ri ght Upper Arm] Pulse Oximetry Oxygen Delivery Me thod Oxygen Flow Rate Fraction of Inspir ed Oxygen Course Vital Signs Vital signs: Initial Vital Signs Temperature 97 F L 04/04/24 09:14 Temperature Source Temporal Artery Scan 04/04/24 09:14 Pulse Rate 62 04/04/24 09:14 Respiratory Rate 20 04/04/24 09:14 Respiratory Effort Labored, Short of Breath, Abdominal Breathing 04/04/24 09:14 Respiratory Pattern Normal 04/04/24 09:14 Blood Pressure 192/63 H 04/04/24 09:14 Blood Pressure Mean 106 H 04/04/24 09:14 Blood Pressure Position Supine 04/04/24 09:14 Pulse Oximetry 91 04/04/24 09:14 Oxygen Delivery Method Nasal Cannula 04/04/24 09:14 Oxygen Flow Rate 4 04/04/24 09:14 Vital Signs Temperature 97 F L 04/04/24 09:14 Pulse Rate 62 04/04/24 09:14 Respiratory Rate 20 04/04/24 09:14 Blood Pressure 192/63 H 04/04/24 09:14 Pulse Oximetry 91 04/04/24 09:14 Oxygen Delivery Method Nasal Cannula 04/04/24 09:14 Oxygen Flow Rate 4 04/04/24 09:14 Temperature 98.6 F 04/04/24 14:32 Pulse Rate 71 04/04/24 17:03 Respiratory Rate 27 H 04/04/24 17:30 Blood Pressure 192/91 H 04/04/24 17:03 Pulse Oximetry 92 04/04/24 17:03 Oxygen Delivery Method BiPAP 04/04/24 11:00 Oxygen Flow Rate 40 04/04/24 11:00 Fraction of Inspired Oxygen 60 04/04/24 16:13 Medications Administered Medications: Discontinued Medications Generic Name Dose Route Start Last Admin Trade Name Ankur PRN Reason Stop Dose Admin Albuterol 2.5 mg 04/04/24 11:00 04/04/24 11:10 Albuterol Sulfate 2.5 Mg/3 Ml Vial.Neb NEB 2.5 mg Q4H PRN Administration Albuterol/Ipratropium 1 neb 04/04/24 09:45 04/04/24 10:01 Iprat-Albut 0.5-2.5 Mg/3 Ml Neb IH 04/04/24 09:46 1 neb ONCE ONE Administration Azithromycin 500 mg 04/04/24 11:03 04/04/24 11:47 Azithromycin 100 Mg/Ml Inj IVPB 04/04/24 11:04 500 mg ONCE ONE Administration Dexamethasone 10 mg 04/04/24 09:45 04/04/24 10:10 Dexamethasone 4 Mg/Ml Vial IV 04/04/24 09:46 10 mg ONCE ONE Administration Dextrose 25 gm 04/04/24 12:02 04/04/24 13:18 Dextrose 50 % Syringe IVP 04/04/24 12:03 25 gm ONCE ONE Administration Furosemide 40 mg 04/04/24 12:01 04/04/24 13:21 Furosemide 10 Mg/Ml Inj IVP 04/04/24 12:02 40 mg ONCE ONE Administration Ceftriaxone Sodium 1 gm/ 100 mls @ 200 mls/hr 04/04/24 11:03 04/04/24 11:47 Sodium Chloride IVPB 04/04/24 11:04 Infused ONCE ONE Infusion Cefepime HCl 1 gm/ Sodium 100 mls @ 200 mls/hr 04/04/24 12:01 04/04/24 14:20 Chloride IVPB 04/04/24 12:02 Infused ONCE ONE Infusion Insulin Human Regular 4 unit 04/04/24 12:02 04/04/24 13:21 Insulin Regular, Human 100 Unit/Ml Vial IVP 04/04/24 12:03 4 unit ONCE ONE Administration MDM - SOB/Dyspnea MDM Narrative Medical decision making narrative: This patient comes in with report of shortness of breath. She was just disc charge from the hospital yesterday for a diagnosis of pneumonia. She states that she did not have a ride to get to dialysis yesterday. She states that there was someone arranged to come and pick her up but this never happened. Additionally she has not filled any of her head prescriptions after being discharged from the hospital. She arrives here with oxygen by nasal cannula at 3 L. after 30-60 minutes she began to require more oxygen and her oximetry went down to 70%. She was briefly placed on high-flow oxygen but this was not bringing satisfactory results. She was switched to BiPAP and that worked nicely to maintain her throughout her stay here. She did receive IV doses of Rocephin, Zithromax, and cefepime. She also received insulin 4 mg and an amp of dextrose to shift her elevated potassium as she missed dialysis. Chest x-ray shows significantly worsening findings of pneumonia compared to previous study. Arrangements are made for transfer to [facility] but they did not have a bed available for [address] [facility] who agreed for transfer and this occurred about 8 hours actually after her arrival here. She was maintaining sufficient vital signs. Time spent in critical care this patient was 60 minutes. Lab Data Labs: Lab Results 04/04/24 04/04/24 Range/Units 10:05 Unknown WBC 12.46 H (4.50-11.00) K/uL RBC 3.24 L (4.00-5.20) m/uL Hgb 9.2 L (12.0-16.0) gm/dL Hct 30.2 L (33.0-51.0) % MCV 93 (80-100) fL MCH 28 (26-34) pg MCHC 31 L (32-36) gm/dL RDW Coeff of Margaret 16.1 H (11.5-15.5) % Plt Count 301 (140-440) K/uL Neut % (Auto) 89.4 H (42.0-72.0) % Lymph % (Auto) 4.5 L (20-44) % [place] % (Auto) 4.2 (0.0-11.0) % Eos % (Auto) 1.5 (0.0-7.0) % Baso % (Auto) 0.2 (0.0-3.0) % Neut # (Auto) 11.10 H (1.7-7.0) K/uL Lymph # (Auto) 0.60 L (0.90-2.90) K/uL [place] # (Auto) 0.50 (0.00-0.90) K/UL Eos # (Auto) 0.20 (0.00-0.50) K/uL Baso # (Auto) 0.00 (0.00-0.30) K/uL Abs Immat Gran (auto) 0.00 (0.00-0.30) K/uL Imm/Tot Granulo (auto) 0.2 % Sodium 131 L (135-149) mmol/L Potassium 6.5 H* (3.6-5.1) mmol/L Chloride 93 L (96-114) mmol/L Carbon Dioxide 23 (20-32) mmol/L Anion Gap 15 (7-15) mEq/L BUN 69 H (7-30) mg/dL Creatinine 6.6 H (0.5-1.5) mg/dL Estimated Creat Clear 4.41 Estimated GFR 6 ml/min Glucose 146 H (60-115) mg/dL Calcium 9.1 (8.4-10.6) mg/dL SARS-CoV-2 (PCR) Negative SARS-CoV-2 (Negative) Influenza Type A (PCR) Negative PCR FLU A (Negative) Influenza Type B (PCR) Negative PCR FLU B (Negative) RSV (PCR) Negative PCR RSV (Negative) Imaging Data Chest x-ray: Radiologist's impression: Moderate to severe diffuse multifocal airspace disease. This has substantially worsened since the prior study. Critical Care Time Critical Care Time Critical Care Time: Yes Attestation: The patient required my highest level preparedness to intervene emergently and I personally spent this critical care time directly and personally managing the patient. This critical care time included: Obtaining a history; Examining the patient; Pulse oximetry; Ordering and reviewing of studies; Arranging urgent treatment with development of a management plan; Evaluation of patients response to treatment; Frequent reassessment discussions with other providers. This critical care time was performed to assess and manage the high probability of imminent life-threatening deterioration that could result in multiorgan failure. It was exclusive of separate billable procedures and treating other patients and teaching time. Total Critical Care Time in Minutes: 60 Discharge Plan Discharge Clinical Impression: Pneumonia, End stage kidney disease, Acute respiratory insufficiency Patient Disposition: Xfer Other Condition: Unchanged Prescriptions: No Action furosemide 40 mg tablet 40 mg PO QAM sennosides [senna] 8.6 mg tablet 8.6 - 34.4 mg PO DAILY PRN clonidine HCl 0.1 mg tablet 0.1 mg PO DIRECTED Rx Instructions: TAKE 2 TABLETS BY MOUTH IN THE MORNING, AND TAKE 3 TABLETS BY MOUTH AT BEDTIME albuterol sulfate 2.5 mg /3 mL (0.083 %) solution for nebulization 2.5 mg Q4H PRN (Reason: dyspnea) labetalol 300 mg tablet 300 mg PO 3XD sorbitol 70 % solution 30 ml PO DAILY PRN (Reason: constipation) repaglinide 1 mg tablet 1 mg PO 3XD oxycodone 5 mg tablet 5 mg PO BID PRN aspirin 81 mg capsule 81 mg PO DAILY albuterol sulfate 90 mcg/actuation HFA aerosol inhaler 2 puff inhalation BID calcium acetate(phosphat bind) 667 mg capsule 1,334 mg PO 3XD Bion Tears (PF) 0.1-0.3 % dropperette 1 drp ophthalmic (eye) DIRECTED ipratropium-albuterol 0.5 mg-3 mg(2.5 mg base)/3 mL solution for nebulization 3 ml INHALATION Q6H PRN (Reason: dyspnea) spironolactone 25 mg tablet 25 mg PO DAILY nifedipine 90 mg tablet extended release 24hr 90 mg PO DAILY pantoprazole 40 mg tablet,delayed release (DR/EC) 40 mg PO BID Incruse Ellipta 62.5 mcg/actuation blister with device 1 inh INHALATION DAILY triamcinolone acetonide 0.1 % cream topical BID nifedipine 60 mg tablet extended release 24hr PO cefdinir 300 mg capsule Patient Comments: [NO ORIGINAL SIG] azithromycin 500 mg tablet DAILY fluticasone propion-salmeterol [Advair Diskus] 250-50 mcg/dose blister with device 1 inh inhalation Q12H cetirizine erythromycin ointment Follow Up/Referrals: Tyrell Schneider MD [Primary Care Provider] -
[2024-04-04] MEDS: IPRAT-ALBUT 0.5-2.5 MG/3 ML NEB 1 NEB IH (10:01)
[2024-04-04] MEDS: dexAMETHasone 4 MG/ML VIAL 10 MG IV (10:10)
[2024-04-04 10:14] LABS: Basophils Percent Auto 0.2 % (0.0-3.0); Eosinophils Percent Auto 1.5 % (0.0-7.0); Hematocrit 30.2 % (33.0-51.0); Hemoglobin* 9.2 gm/dL (12.0-16.0); Immature Granulocytes Pct Auto 0.2 %; Lymphocytes Percent Auto 4.5 % (20-44); Mean Corpuscular HGB Conc 31 gm/dL (32-36); Mean Corpuscular Hemoglobin 28 pg (26-34); Mean Corpuscular Volume 93 fL (80-100); Monocytes Percent Auto 4.2 % (0.0-11.0); Neutrophils Percent Auto 89.4 % (42.0-72.0); Platelet Count* 301 K/uL (140-440); RDW Coefficient of Variation % 16.1 % (11.5-15.5); Red Blood Count 3.24 m/uL (4.00-5.20); White Blood Count* 12.46 K/uL (4.50-11.00)
[2024-04-04 10:28] LABS: Chloride* 93 mmol/L (96-114); Sodium* 131 mmol/L (135-149)
[2024-04-04 10:31] LABS: Anion Gap 15 mEq/L (7-15); Blood Urea Nitrogen* 69 mg/dL (7-30); Calcium* 9.1 mg/dL (8.4-10.6); Carbon Dioxide* 23 mmol/L (20-32); Creatinine* 6.6 mg/dL (0.5-1.5); Est. Creatinine Clearance* 4.41; Estimated Glomerular Filt Rate 6 ml/min; Glucose* 146 mg/dL (60-115)
[2024-04-04 10:32] LABS: Slide Review Reflex No
[2024-04-04 10:34] LABS: Potassium* 6.5 mmol/L (3.6-5.1)
[2024-04-04 11:01] LABS: PCR FLU A Negative PCR FLU A (Negative); PCR FLU B Negative PCR FLU B (Negative); PCR RSV Negative PCR RSV (Negative); SARS PCR* Negative SARS-CoV-2 (Negative)
[2024-04-04] MEDS: ALBUTEROL SULFATE 2.5 MG/3 ML VIAL.NEB NEB (11:10)
[2024-04-04] MEDS: cefTRIAXone 1 GM in 0.9 % SODIUM CHLORIDE Mini-bag 100 ML IVPB (11:16)
[2024-04-04] MEDS: AZITHROMYCIN 100 MG/ML inj 500 MG IVPB (11:47)
[2024-04-04] MEDS: CEFEPIME HCL 1 GM in 0.9 % SODIUM CHLORIDE Mini-bag 100 ML IVPB (13:03)
[2024-04-04] MEDS: DEXTROSE 50 % SYRINGE IVP (13:18)
[2024-04-04] MEDS: FUROSEMIDE 10 MG/ML inj 40 MG IVP (13:21)
[2024-04-04] MEDS: INSULIN REGULAR, HUMAN 100 UNIT/ML VIAL IVP (13:21)
== END 2024-04-04 17:51 | disposition other institution (70) ==
PROVIDERS: Emergency Provider Emergency Medicine Emergency Medical Services; PCP Family Medicine
DX: J18.9 Pneumonia, unspecified organism (principal); N18.6 End stage renal disease; R06.89 Other abnormalities of breathing
CPT/HCPCS: 36415; 71045; 80048; 85025; 87631; 94640; 94660; 94761; 99284; 99291; J0456; J0692; J0696; J1100; J1815; J1940

== ENCOUNTER 2024-04-04 17:20 | Outpatient (CLI) | payer MEDICARE, SELFPAY | END 2024-04-04 17:21 | disposition home or self-care (01) | LOC: AMB 04-06 14:44 | PROVIDERS: PCP Family Medicine; Visit Provider Family Medicine | DX: J18.9 Pneumonia, unspecified organism (principal); N18.6 End stage renal disease; R06.89 Other abnormalities of breathing | CPT/HCPCS: A0425; A0434 ==

== ENCOUNTER 2024-04-27 12:24 | Outpatient (CLI) | payer MEDICARE, SELFPAY | END 2024-04-27 12:25 | disposition home or self-care (01) | LOC: AMB 04-29 11:06 | PROVIDERS: PCP Family Medicine; Visit Provider Family Medicine | DX: R07.89 Other chest pain (principal) ==

== ENCOUNTER 2024-04-27 12:24 | Outpatient (CLI) | payer MEDICARE, SELFPAY | END 2024-04-27 12:25 | disposition home or self-care (01) | LOC: AMB 04-28 10:46 | PROVIDERS: PCP Family Medicine; Visit Provider Internal Medicine | DX: R07.89 Other chest pain (principal) | CPT/HCPCS: A0425; A0427 ==

== ENCOUNTER 2024-04-29 05:07 | Outpatient (CLI) | payer MEDICARE, SELFPAY | END 2024-04-29 05:08 | disposition home or self-care (01) | LOC: AMB 15:17 | PROVIDERS: PCP Family Medicine; Visit Provider Family Medicine | DX: R10.9 Unspecified abdominal pain (principal) | CPT/HCPCS: A0425; A0427 ==

== ENCOUNTER 2024-04-29 05:28 | Emergency (ER) | payer MEDICARE, SELFPAY ==
[2024-04-29] VITALS (14 sets, daily range): BP systolic 177–210; BP diastolic 65–89; PULSE 63–69; RESP 9–17; TEMP 36.2–36.7; O2SAT 84–97; BMI 16.1
--- OUTSIDE RECORDS SUMMARY | 2024-04-29 05:31 | XMS_ITS | Encounter Summary ---
Author Organization [facility] Address [address] [place] [id number] Care Team Providers Care Data Conversion Operator Name Role Phone Tyrell Schneider Primary Care Provider [phone] Encounter Details Date Type Department Care Team (Late st Contact Info) Description 04/27/2024 Results Only [facility] [address] [place] [address] Emanuel Lozano MD [facility] [address], [facility] [address] [place] [address] Social History Tobacco Use Types Packs/Day Years Used Date Smoking Tobacco: Never Assessed Adolescent Education Answer Date Record ed Getting School Help Needed Not on file 11/24 Comments No Sex and Gender Information Value Date Recorded Sex Assigned at Not on file Legal Sex Female 4:24 PM CDT Gender Identity Female 11/24/2022 4:30 PM CDT Sexual Orientation Not on file documented as of this encounter Plan of Treatment Not on file documented as of this encounter Procedures Procedure Name Priority Date/Time Associated Diagnosis Comments EKG 12-LEAD, TRACING ONLY Routine 04/27/2024 2:47 PM CDT documented in this encounter Results * EKG 12-lead, tracing only (04/27/2024 2:47 PM CDT) Systolic Blood Pressure mmHg MUSE Diastolic Blood Pressure mmHg MUSE Ventricular Rate 69 BPM MUSE Atrial Rate 69 BPM MUSE SC Interval 178 ms MUSE QRS Duration 82 ms MUSE QT 394 ms MUSE QTc 422 ms MUSE P [place] 75 degrees MUSE R AXIS 24 degrees MUSE T [place] 80 degrees MUSE Interpretation ECG Sinus rhythm Minimal voltage criteria for LVH, may be normal variant ( [place] product ) Borderline ECG When compared with ECG of 27-Apr-2024 14:32, (unconfirmed) No significant change was found Unconfirmed report - interpretation of this ECG is computer generated - see medical record for final interpretation Confirmed by - EMERGENCY ROOM, PHYSICIAN ([id number]), movie editor Song Cheung ([id number]) on 04/27/2024 3:21:42 PM MUSE 04/27/2024 2:47 PM CDT 04/27/2024 3:21 PM CDT us Emanuel Lozano MD ECG ORDERABLES Edited Result - Final MUSE documented in this encounter Visit Diagnoses Not on filedocumented in this encounter Care Teams Data Conversion Operator Relationship Specialty Start Date End Date Tyrell Schneider [address] [place] [address] PCP - General Family Medicine 02/19/23 documented as of this encounter
--- OUTSIDE RECORDS SUMMARY | 2024-04-29 05:31 | XMS_ITS | Encounter Summary ---
Author Organization [facility] Address [address] [place] [id number] Care Team Providers Care Body Bumper Name Role Phone Tyrell Schneider Primary Care Provider [phone] Encounter Details Date Type Department Care Team (Latest Contact Info) Description 04/27/2024 Travel Social History Tobacco Use Types Packs/Day [...] on filedocumented in this encounter Care Teams Body Bumper Relationship Specialty Start Date End Date Tyrell Schneider [address] [place] [address] PCP - General Family Medicine 02/19/23 documented as of this encounter
--- OUTSIDE RECORDS SUMMARY | 2024-04-29 05:31 | XMS_ITS | Clinical Summary ---
Author Organization [facility] Address [address] [place] [id number] Care Team Providers Care Computer Numerical Control Machinist Name Role Phone Tyrell Schneider Bulmaro Primary Care Provider [phone] Allergies Active Allergy Reactions Criticality Noted Date [...] 01/09/2010 itching Niacin Rash,Itching Low 05/13/2006 itch [place] Rash Low 05/16/2010 Oxycodone Nausea and Vomiting 05/25/2015 Pioglitazone Rash Low 10/11/2020 Itchy rash Pravastatin Muscle Pain (Myalgia),Other (See Comments) 01/22/2012 Other Reaction(s): Back Pain Simvastatin Other (See Comments) 04/04/2016 Other Reaction(s): Back Pain Leg pain Tolerating every other day. Tetracycline Other (See Comments) 05/09/2015 bumps Medications albuterol (PROVENTIL) (2.5 MG/3ML) 0.083% neb solution Take 2.5 mg by nebulization every 4 hours as needed for shortness of breath 09/11/19 23 Active erythromycin (ROMYCIN) 5 MG/GM ophthalmic ointment Place Into the left eye 4 times daily 09/26/19 23 Active neomycin-polymyx in-dexAMETHasone (MAXITROL) 3.5-97522-7.[address] 0.25 inches Into the left eye 4 times daily 09/25/19 23 Active repaglinide (PRANDIN) 1 MG tablet Take 1 tablet by mouth 3 times daily (before meals) 12/14/19 21 Active triamcinolone (KENALOG) 0.1 % external cream Apply topically daily as needed for irritation 01/25/20 21 Active glipiZIDE (GLUCOTROL XL) 10 MG 24 hr tablet Take 20 mg by mouth every morning 11/15/19 23 Active ipratropium - albuterol 0.5 mg/2.5 mg/3 mL (DUONEB) 0.5-2.5 (3) MG/3ML neb solution Inhale 3 mLs into the lungs every 6 hours as needed for shortness of breath 12/14/19 21 Active furosemide (LASIX) 40 MG tablet Take 40 mg by mouth daily Active carboxymethylcel lulose PF (REFRESH PLUS) 0.5 % ophthalmic solution Place 1 drop into both eyes 2 times daily Active pantoprazole (PROTONIX) 40 MG EC tabletIndication s:Anemia, unspecified type Take 1 tablet (40 mg) by mouth 2 times daily (before meals) 60 tablet 12/18/19 23 Active multivitamin RENAL (RENAVITE RX/NEPHROVITE) 1 tablet tablet Take 1 tablet by mouth daily Active cloNIDine (CATAPRES) 0.1 MG tablet Take 0.3 mg by mouth every evening Active senna-docusate (SENOKOT-S/PERIC OLACE) 8.6-50 MG tabletIndication s:Constipation, unspecified constipation type Take 1 tablet by mouth daily as needed for constipation 02/21/19 24 Active nicotine (NICODERM CQ) 14 MG/24HR [address] 1 patch onto the skin every 24 hours. Active oxyCODONE (ROXICODONE) 5 MG tablet Take 5 mg by mouth 2 times daily as needed for severe pain. Active calcium acetate (PHOSLO) 667 MG CAPS capsule Take 2,001 mg by mouth 3 times daily (with meals). Active hydrALAZINE (APRESOLINE) 100 MG tablet Take 100 mg by mouth 3 times daily. Active losartan (COZAAR) 50 MG tablet Take 50 mg by mouth daily. Active methocarbamol (ROBAXIN) 500 MG tablet Take 500 mg by mouth 2 times daily as needed for muscle spasms. Active NIFEdipine ER (ADALAT CC) 60 MG 24 hr tablet Take 120 mg by mouth every morning (before breakfast). Active spironolactone (ALDACTONE) 25 MG tablet Take 25 mg by mouth daily. Active fluticasone-binu nterol (BREO ELLIPTA) 100-25 MCG/ACT inhaler Inhale 1 puff into the lungs daily. Active albuterol (PROAIR HFA/PROVENTIL HFA/VENTOLIN HFA) 108 (90 Base) MCG/ACT inhaler Inhale 2 puffs into the lungs every 6 hours as needed for shortness of breath, wheezing or cough. Active aspirin 81 MG EC tablet Take 81 mg by mouth every evening 025 Discontin ued(Med Rec(No AVS / No eCancel)) amLODIPine (NORVASC) 10 MG tablet Take 10 mg by mouth 2 times daily 11/15/19 23 025 Discontin ued(Med Rec(No AVS / No eCancel)) cloNIDine (CATAPRES) 0.1 MG tablet Take 0.2 mg by mouth every morning 06/15/19 22 025 Discontin ued(Med Rec(No AVS / No eCancel)) oxyCODONE (ROXICODONE) 5 MG tablet Take 10 mg by mouth at bedtime 04/18/19 025 Discontin ued(Med Rec(No AVS / No eCancel)) senna (SENOKOT) 8.6 MG tablet Take 1 tablet by mouth every 3 days 10/14/19 23 025 Discontin ued(Med Rec(No AVS / No eCancel)) sorbitol 70 % SOLN solution Take 30 mLs by mouth every 3 days 01/10/20 22 025 Discontin ued(Med Rec(No AVS / No eCancel)) labetalol (NORMODYNE) 300 MG tablet Take 600 mg by mouth 2 times daily 03/01/19 23 025 Discontin ued(Med Rec(No AVS / No eCancel)) polyethylene glycol (MIRALAX) 17 g packet Take 1 packet by mouth every 3 days 025 Discontin ued(Med Rec(No AVS / No eCancel)) cetirizine (ZYRTEC) 10 MG tablet Take 10 mg by mouth every evening 025 Discontin ued(Med Rec(No AVS / No eCancel)) umeclidinium (INCRUSE ELLIPTA) 62.5 MCG/ACT inhalerIndicatio ns:Chronic obstructive pulmonary disease, unspecified COPD type (H) Inhale 1 puff into the lungs daily 7 each 12/19/19 025 Discontin ued(Med Rec(No AVS / No eCancel)) nicotine (NICODERM CQ) 21 MG/24HR [address] 1 patch onto the skin every 24 hours 025 Discontin ued(Med Rec(No AVS / No eCancel)) Active Problems Problem Noted Date Diagnosed Date Acute pancreatitis, unspecif ied complication status, unspecified pancreatitis type 02/19/2023 Other emphysema 12/18/2022 Anemia 12/13/2022 ESRD (end stage renal disease) on dialysis 12/13 Acute on chronic anemia 12/13/2022 SOB (shortness of breath) 11/29/2022 COVID 11/24/2022 Encounters Date Type Department Care Team Description 04/27/2024 1:37 PM CDT - 04/27/2024 8:51 PM CDT [facility] [address] [place] [id number] Jason Tapia MD Left-sided chest pain; Mass of upper lobe of left lung Discharge Disposition: Home or Self Care 04/27/2024 Results Only [facility] [address] [place] [phone] Emanuel Lozano MD 04/27/2024 Travel from Last 3 Months Social History Tobacco [...] Sign Reading Time Taken Comments Blood Pressure 155/83 04/27/2024 8:48 PM CDT Pulse 69 04/27/2024 4:26 PM CDT Temperature 37 C (98.6 F) 04/27/2024 2:13 PM CDT Respiratory Rate 11 04/27/2024 4:26 PM CDT Oxygen Saturation 98% 04/27/2024 3:01 PM CDT Inhaled Oxygen Concentration - - Weight 38.6 kg (85 lb) 04/27/2024 2:12 PM CDT Height 154.9 cm (5' 1) 04/27/2024 2:12 PM CDT Body Mass Index 16.06 04/27/2024 2:12 PM CDT Plan of Treatment Health Maintenance Due Date Last Done Comments ADVANCE CARE PLANNING 1945 ANNUAL REVIEW OF HM ORDERS 1945 COPD ACTION PLAN 1947 LIPID 1947 PARATHYROID 1947 SPIROMETRY 1947 HEPATITIS B IMMUNIZATION (3 of 5 - Risk Dialysis 4-dose series) 11/01/2000 10/04/2000, 04/11/2000 ZOSTER IMMUNIZATION (2 of 3) 07/10/2012 05/15/2012 FALL RISK ASSESSMENT 08/30/2012 DTAP/TDAP/TD IMMUNIZATION (2 - Td or Tdap) 05/30/2020 05/30/2010, 02/12/2000 RSV VACCINE (1 - 1-dose 75+ series) 08/30/2022 PHQ-2 (once per calendar year) 2024 COVID-19 Vaccine (2023- season) 2024 11/22/2023, 12/25/2022, 10/25/2021, Additional history exists BMP 07/28/2024 04/27/2024, 02/11, 02/20/2023, Additional history exists HEMOGLOBIN 10/28/2024 04/27/2024, 02/11, 02/20/2023, Additional history exists MEDICARE ANNUAL WELLNESS VISIT 11/21/2024 11/22/2023 GLUCOSE 04/28/2027 04/27/2024, 02/11, 02/21/2023, Additional history exists DEXA 04/13/2031 04/12/2016 HEPATITIS C SCREENING Completed 04/04/2016 MAMMO SCREENING Discontinued 01/01/2019 Pneumococcal Vaccine: 50+ Years Completed 04/10/2022, 06/22/2014, 12/31/2012, Additional history exists COLORECTAL CANCER SCREENING Discontinued FIT Discontinued 12/12/2022 PHOSPHORUS Completed 12/18/2022, 07/2022, 12/16/2022, Additional history exists INFLUENZA VACCINE Completed 11/22/2023, , 10/25/2021, Additional history exists ALK PHOS Completed 04/27/2024, 02/11, 02/19/2023, Additional history exists COLONOSCOPY Discontinued CT COLONOGRAPHY Discontinued FLEX SIG Discontinued HPV IMMUNIZATION Aged Out No longer e ligible based on patient's age to complete this topic MENINGITIS IMMUNIZATION Aged Out No l onger eligible based on patient's age to complete this topic sDNA (Cologuard) Discontinued Procedures Procedure Name Priority Date/Time Associated Diagnosis Comments TROPONIN T, HIGH SENSITIVITY STAT 04/27/2024 6:[address] CHEST PULMONARY EMBOLISM W CONTRAST STAT 04/27/2024 5:45 PM CDT US LOWER EXTREMITY VENOUS DUPLEX RIGHT STAT 04/27/2024 5:05 PM CDT TROPONIN T, HIGH SENSITIVITY STAT 04/27/2024 3:52 PM CDT EKG 12-LEAD, TRACING ONLY Routine 04/27/2024 2:47 PM CDT EKG 12-LEAD, TRACING ONLY STAT 04/27/2024 2:32 PM CDT CBC WITH PLATELETS & DIFFERENTIAL STAT 04/27/2024 1:53 PM CDT D DIMER QUANTITATIVE STAT 04/27/2024 1:53 PM CDT EXTRA RED TOP TUBE STAT 04/27/2024 1: 53 PM CDT EXTRA BLUE TOP TUBE STAT 04/27/2024 1 :53 PM CDT CBC WITH PLATELETS AND DIFFERENTIAL STAT 04/27/2024 1:53 PM CDT EXTRA TUBE STAT 04/27/2024 1:53 PM CDT TROPONIN T, HIGH SENSITIVITY STAT 04/27/2024 1:53 PM CDT COMPREHENSIVE METABOLIC PANEL STAT 04/27/2024 1:53 PM CDT RENAL PANEL Routine 12/18/2022 8:45 AM PHARMACOGENETICIST OCCULT BLOOD STOOL STAT 12/12/2022 11 :03 PM CDT from Last 3 Months or Most Recently Relevant to Health Maintenance Results * (ABNORMAL) Troponin T, High Sensitivity (04/27/2024 6:12 PM CDT) Only the most recent of3 resultswithin the time period is included. Troponin T, High Sensitivity 137(HH) <=14 ng/L 04/27/2024 7:07 PM CDT [facility] Comment: Either a High Sensitivity Troponin T baseline (0 hours) value = 100 ng/L, or an increase in High Sensitivity Troponin T = 7 ng/L at 2 hours compared to 0 hours (2-0 hours), suggests myocardial injury, and urgent clinical attention is required. If the 2-0 hours increase is <7 [...] RIGHT HAND / Unknown Venipuncture / Unknown 04/27/2024 6:12 PM CDT 04/27/2024 6:21 PM CDT us Jason Tapia MD LAB - BLOOD ORDERABLES Final Result [facility] Acute Care Lab [address] [facility] Lab (1st floor, no room number) [place] [address] * CT Chest Pulmonary Embolism w Contrast (04/27/2024 5:45 PM CDT) Anatomical Region Laterality Modality Chest, SUBRAD CT BODY, UMP CT CHEST Computed Tomography 04/27/2024 5:45 PM CDT Impressions 04/27/2024 6:15 PM CDT IMPRESSION: 1. Interval enlargement of now 3.2 cm right upper lobe pulmonary mass, suspicious for primary neoplasm. 2. Enlarged mediastinal and hilar lymph nodes, suspicious for disease involvement. 3. Complete collapse of the left upper lobe, could be secondary to compression from #2. 4. Small bilateral pleural effusions. 5. No pulmonary embolism. Narrative 04/27/2024 6:15 PM CDT EXAM: CT CHEST PULMONARY EMBOLISM W CONTRAST LOCATION: [facility] DATE: 04/27/2024 INDICATION: Chest pain, elevated d-dimer COMPARISON: Chest radiograph 12/13/2022, CT 11/28/2022 TECHNIQUE: CT chest pulmonary angiogram during arterial phase injection of IV contrast. Multiplanar reformats and MIP reconstructions were performed. Dose reduction techniques were used. CONTRAST: 47mL Isovue 370 FINDINGS: ANGIOGRAM CHEST: Pulmonary arteries are normal caliber and negative for pulmonary emboli. Thoracic aorta is negative for dissection. No CT evidence of right heart strain. LUNGS AND PLEURA: Mild upper lobe predominant centrilobular emphysema. There has been significant enlargement of a right upper lobe mass, currently measuring up to 3.1 cm, previously a 0.9 cm nodule (series 7 image 126). Near-complete collapse of the left upper lobe. Small bilateral pleural effusions without viet airspace consolidation. MEDIASTINUM/AXILLAE: Multiple enlarged mediastinal and hilar lymph nodes with right suprahilar node measuring 1.8 cm in short axis (series 6 image 112) and left prevascular node measuring 1.2 cm in short axis (series 6 image 61). No pericardial effusion. CORONARY ARTERY CALCIFICATION: Severe. UPPER ABDOMEN: Atrophic kidneys. 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 Procedure Note Robin Abreu MD - 04/27/2024 EXAM: CT CHEST PULMONARY EMBOLISM W CONTRAST LOCATION: [facility] DATE: 04/27/2024 INDICATION: Chest pain, elevated d-dimer COMPARISON: Chest radiograph 12/13/2022, CT 11/28/2022 TECHNIQUE: CT chest pulmonary angiogram during arterial phase injection ofIV contrast. Multiplanar reformats and MIP reconstructions were performed.Dose reduction techniques were used. CONTRAST: 47mL Isovue 370 FINDINGS: ANGIOGRAM CHEST: Pulmonary arteries are normal caliber and negative forpulmonary emboli. Thoracic aorta is negative for dissection. No CTevidence of right heart strain. LUNGS AND PLEURA: Mild upper lobe predominant centrilobular emphysema.There has been significant enlargement of a right upper lobe mass,currently measuring up to 3.1 cm, previously a 0.9 cm nodule (series 7image 126). Near-complete collapse of the left upper lobe. Small bilateral pleural effusions without veit airspaceconsolidation. MEDIASTINUM/AXILLAE: Multiple enlarged mediastinal and hilar lymph nodeswith right suprahilar node measuring 1.8 cm in short axis (series 6 [id number]) and left prevascular node measuring 1.2 cm in short axis (series 6image 61). No pericardial effusion. CORONARY ARTERY CALCIFICATION: Severe. UPPER ABDOMEN: Atrophic kidneys. 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 IMPRESSION: 1. Interval enlargement of now 3.2 cm right upper lobe pulmonary mass,suspicious for primary neoplasm. 2. Enlarged mediastinal and hilar lymph nodes, suspicious for diseaseinvolvement. 3. Complete collapse of the left upper lobe, could be secondary tocompression from #2. 4. Small bilateral pleural effusions. 5. No pulmonary embolism. us Jason Tapia MD IMG CT ORDERABLES Final Result * US Lower Extremity Venous Duplex Right (04/27/2024 5:05 PM CDT) Anatomical Region Laterality Modality Lower Extremity Ultrasound 04/27/2024 5:05 PM CDT Impressions 04/27/2024 5:13 PM CDT IMPRESSION: 1. No deep venous thrombosis in the right lower extremity. 2. Anechoic avascular fluid collection right groin. Narrative 04/27/2024 5:13 PM CDT EXAM: US LOWER EXTREMITY VENOUS DUPLEX RIGHT LOCATION: [facility] DATE: 04/27/2024 INDICATION: RLQ pain, no trauma COMPARISON: None. TECHNIQUE: Venous Duplex ultrasound of the right lower extremity with and without compression, augmentation and duplex. Color flow and spectral Doppler with waveform analysis performed. FINDINGS: Exam includes the common femoral, femoral, popliteal, and contralateral common femoral veins as well as segmentally visualized deep calf veins and greater saphenous vein. RIGHT: No deep vein thrombosis. No superficial thrombophlebitis. No popliteal cyst. Anechoic avascular fluid collection right groin measuring 1.8 x 1.5 x 0.4 cm. Procedure Note Jesus Walton MD - 04/27/2024 EXAM: US LOWER EXTREMITY VENOUS DUPLEX RIGHT LOCATION: [facility] DATE: 04/27/2024 INDICATION: RLQ pain, no trauma COMPARISON: None. TECHNIQUE: Venous Duplex ultrasound of the right lower extremity with andwithout compression, augmentation and duplex. Color flow and spectralDoppler with waveform analysis performed. FINDINGS: Exam includes the common femoral, femoral, popliteal, andcontralateral common femoral veins as well as segmentally visualized deepcalf veins and greater saphenous vein. RIGHT: No deep vein thrombosis. No superficial thrombophlebitis. Nopopliteal cyst. Anechoic avascular fluid collection right groin measuring1.8 x 1.5 x 0.4 cm. IMPRESSION: 1. No deep venous thrombosis in the right lower extremity. 2. Anechoic avascular fluid collection right groin. us Jason Tapia MD IMG US ORDERABLES Final Result * EKG 12-lead, tracing only (04/27/2024 2:47 PM CDT) Systolic Blood Pressure mmHg MUSE Diastolic Blood Pressure mmHg MUSE Ventricular Rate 69 BPM MUSE Atrial Rate 69 BPM MUSE AR Interval 178 ms MUSE QRS Duration 82 ms MUSE QT 394 ms MUSE QTc 422 ms MUSE P [place] 75 degrees MUSE R AXIS 24 degrees MUSE T [place] 80 degrees MUSE Interpretation ECG Sinus rhythm Minimal voltage criteria for LVH, may be normal variant ( Lithia product ) Borderline ECG When compared with ECG of 27-Apr-2024 14:32, (unconfirmed) No significant change was found Unconfirmed report - interpretation of this ECG is computer generated - see medical record for final interpretation Confirmed by - EMERGENCY ROOM, PHYSICIAN ([id number]), editor map Song Cheung ([id number]) on 04/27/2024 3:21:42 PM MUSE 04/27/2024 2:47 PM CDT 04/27/2024 3:21 PM CDT Emanuel Lozano MD ECG ORDERABLES Edited Result - Final MUSE * Extra Red Top Tube (04/27/2024 1:53 PM CDT) Hold Specimen JIC 04/27/2024 3:01 PM CDT [facility] Blood BLOOD SPECIMEN / Unknown Venipuncture / Unknown 04/27/2024 1:53 PM CDT 04/27/2024 1:56 PM CDT us Jason Tapia MD LAB - BLOOD ORDERABLES Final Result LABORATORY [facility] Acute Care Lab [address] Lab (1st floor, no room number) [place] [address] * Extra Blue Top Tube (04/27/2024 1:53 PM CDT) Hold Specimen JIC 04/27/2024 3:01 PM CDT [facility] Blood BLOOD SPECIMEN / Unknown Venipuncture / Unknown 04/27/2024 1:53 PM CDT 04/27/2024 1:56 PM CDT us Jason Tapia MD LAB - BLOOD ORDERABLES Final Result LABORATORY [facility] [address] Lab (1st floor, no room number) [address] [place] [address] * (ABNORMAL) CBC with platelets and differential (04/27/2024 1:53 PM CDT) [facility] WBC Count 14.2(H) 4.0 - 11.0 10e3/uL 04/27/2024 1:59 PM CDT [facility] RBC Count 2.60(L) 3.80 - 5.20 10e6/uL 04/27/2024 1:59 PM CDT [facility] Hemoglobin 7.4(L) 11.7 - 15.7 g/dL 04/27/2024 1:59 PM CDT [facility] Hematocrit 23.1(L) 35.0 - 47.0 % 04/27/2024 1:59 PM CDT [facility] MCV 89 78 - 100 fL 04/27/2024 1:59 PM CDT [facility] MCH 28.5 26.5 - 33.0 pg 04/27/2024 1:59 PM CDT [facility] MCHC 32.0 31.5 - 36.5 g/dL 04/27/2024 1:59 PM CDT [facility] RDW 16.4(H) 10.0 - 15.0 % 04/27/2024 1:59 PM CDT [facility] Platelet Count 422 150 - 450 10e3/uL 04/27/2024 1:59 PM CDT [facility] % Neutrophils 91 % 04/27/2024 1:59 PM CDT [facility] % Lymphocytes 3 % 04/27/2024 1:59 PM CDT [facility] % Monocytes 4 % 04/27/2024 1:59 PM CDT [facility] % Eosinophils 1 % 04/27/2024 1:59 PM CDT [facility] % Basophils 0 % 04/27/2024 1:59 PM CDT [facility] % Immature Granulocytes 1 % 04/27/2024 1:59 PM CDT [facility] NRBCs per 100 WBC 0 <1 /100 025 1:59 PM CDT [facility] Absolute Neutrophils 13.0(H) 1.6 - 8.3 10e3/uL 04/27/2024 1:59 PM CDT [facility] Absolute Lymphocytes 0.5(L) 0.8 - 5.3 10e3/uL 04/27/2024 1:59 PM CDT [facility] Absolute Monocytes 0.5 0.0 - 1.3 10e3/uL 04/27/2024 1:59 PM CDT [facility] Absolute Eosinophils 0.2 0.0 - 0.7 10e3/uL 04/27/2024 1:59 PM CDT [facility] Absolute Basophils 0.0 0.0 - 0.2 10e3/uL 04/27/2024 1:59 PM CDT [facility] Absolute Immature Granulocytes 0.1 <=0.4 10e3/uL 04/27/2024 1:59 PM CDT [facility] Absolute NRBCs 0.0 10e3/uL 04/27/2024 1:59 PM CDT [facility] Blood BLOOD SPECIMEN / Unknown Venipuncture / Unknown 04/27/2024 1:53 PM CDT 04/27/2024 1:56 PM CDT us Jason Tapia MD LAB - BLOOD ORDERABLES Final Result [facility] Acute [facility] Lab [address] Lab (1st floor, no room number) [place] [address], [facility] * (ABNORMAL) D dimer quantitative (04/27/2024 1:53 PM CDT) D-Dimer Quantitative 4.13(H) 0.00 - 0.50 ug/mL FEU 04/27/2024 4:23 PM CDT [facility] Blood BLOOD SPECIMEN / Unknown Venipuncture / Unknown 04/27/2024 1:53 PM CDT 04/27/2024 1:56 PM CDT Narrative [facility] - 04/27/2024 4:23 PM CDT This D-dimer assay is intended for use in conjunction with a clinical pretest probability assessment model to exclude pulmonary embolism (PE) and deep venous thrombosis (DVT) in outpatients suspected of PE or DVT. The cut-off value is 0.50 ug/mL FEU. For patients 50 years of age or older, the application of age-adjusted cut-off values for D-Dimer may increase the specificity without significant effect on sensitivity. The literature suggested calculation age adjusted cut-off in ug/L = age in years x 10 ug/L. The results in this laboratory are reported as ug/mL rather than ug/L. The calculation for age adjusted cut off in ug/mL= age in years x 0.01 ug/mL. For example, the cut off for a 76 year old male is 78 x 0.01 ug/mL = 0.76 ug/mL (760 ug/L). M Franck et al. Age adjusted D-dimer cut-off levels to rule out pulmonary embolism: The ADJUST-PE Study. REGINA 2014;311:8759-8714.; HJ Rey et al. Diagnostic accuracy of conventional or age adjusted D-dimer cutoff values in older patients with suspected venous thromboembolism. Systemic review and meta-analysis. BMJ 2013:346:f2492. us Jason Tapia MD LAB - BLOOD ORDERABLES Final Result LABORATORY [facility] Acute Care Lab [address] [facility] Lab (1st floor, no room number) [place] [address], [facility] * (ABNORMAL) Comprehensive metabolic panel (04/27/2024 1:53 PM CDT) Sodium 129(L) 135 - 145 mmol/L 04/27/2024 2:26 PM CDT LABORATORY Potassium 4.6 3.4 - 5.3 mmol/L 04/27/2024 2:26 PM CDT LABORATORY Carbon Dioxide (CO2) 22 22 - 29 mmol/L 04/27/2024 2:26 PM CDT LABORATORY Anion Gap 17(H) 7 - 15 mmol/L 04/27/2024 2:26 PM CDT LABORATORY Urea Nitrogen 71.0(H) 8.0 - 23.0 mg/dL 04/27/2024 2:26 PM CDT LABORATORY Creatinine 6.37(H) 0.51 - 0.95 mg/dL 04/27/2024 2:26 PM CDT LABORATORY GFR Estimate 6(L) >60 mL/min/1.7 3m2 04/27/2024 2:26 PM CDT LABORATORY Comment:eGFR calculated usin 2020 CKD-EPI equation. Calcium 9.0 8.8 - 10.4 mg/dL 04/27/2024 2:26 PM CDT LABORATORY Chloride 90(L) 98 - 107 mmol/L 04/27/2024 2:26 PM CDT LABORATORY Glucose 232(H) 70 - 99 mg/dL 04/27/2024 2:26 PM CDT LABORATORY Alkaline Phosphatase 132 40 - 150 U/L 04/27/2024 2:26 PM CDT LABORATORY AST 18 0 - 45 U/L 04/27/2024 2:26 PM CDT LABORATORY ALT 15 0 - 50 U/L 04/27/2024 2:26 PM CDT LABORATORY Protein Total 7.1 6.4 - 8.3 g/dL 04/27/2024 2:26 PM CDT LABORATORY Albumin 3.2(L) 3.5 - 5.2 g/dL 04/27/2024 2:26 PM CDT LABORATORY Bilirubin Total 0.2 <=1.2 mg/dL 04/27/2024 2:26 PM CDT LABOR[facility]ORY Blood BLOOD SPECIMEN / Unknown Venipuncture / Unknown 04/27/2024 1:53 PM CDT 04/27/2024 1:56 PM CDT Jason Tapia MD LAB - BLOOD ORDERABLES Final Result LABORATORY [facility] Lab [address] [facility] Lab (1st floor, no room number) [place] [address], [facility] * (ABNORMAL) Renal panel (12/18/2022 8:45 AM PHARMACOGENETICIST) Sodium 135 135 - 145 mmol/L 12/18/2022 9:[address] [facility] Comment:Reference intervals for this test were updated on 11/06/2022 to more accurately reflect our healthy population. There may be differences in the flagging of prior results with similar values performed with this method. Interpretation of those prior results can be made in the context of the updated reference intervals. Potassium 4.2 3.4 - 5.3 mmol/L 12/18/2022 9:[address] [facility] Chloride 99 98 - 107 mmol/L 12/18/2022 9:[address] [facility] Carbon Dioxide (CO2) 29 22 - 29 mmol/L 12/18/2022 9:[address] [facility] Anion Gap 7 7 - 15 mmol/L 12/18/2022 9:[address] [facility] Glucose 128(H) 70 - 99 mg/dL 12/18/2022 9:[address] [facility] Urea Nitrogen 17.7 8.0 - 23.0 mg/dL 12/18/2022 9:[address] [facility] Creatinine 2.67(H) 0.51 - 0.95 mg/dL 12/18/2022 9:[address] [facility] GFR Estimate 18(L) >60 mL/min/1. 73m2 12/18/2022 9:[address] [facility] Calcium 7.6(L) 8.8 - 10.2 mg/dL 12/18/2022 9:[address] [facility] Albumin 2.6(L) 3.5 - 5.2 g/dL 12/18/2022 9:[address] [facility] Phosphorus 2.3(L) 2.5 - 4.5 mg/dL 12/18/2022 9:[address] [facility] Blood STRUCTURE OF RIGHT UPPER LIMB / Unknown Venipuncture / Unknown 12/18/2022 8:45 AM PHARMACOGENETICIST 12/18/2022 8:50 AM PHARMACOGENETICIST us David Treviño MD LAB - BLOOD ORDERABLES Final Res ult LABORATORY [facility] Lab [address] [employer] Lab (1st floor, no room number) [place] [address], [facility] [facility] [phone] * Stool: occult blood (12/12/2022 11:03 PM CDT) Occult Blood Negative Negative JENNIFER 12/12/2022 11:32 PM CDT LABORATORY Stool RECTAL CONTENTS / Unknown Non-blood Collection / Unknown 12/12/2022 11:03 PM CDT 12/12/2022 11:11 PM CDT us Jason Tapia MD LAB - STOOLS ORDERABLES Final Result [facility] [address] [employer] [facility] (1st floor, no room number) [place] [address], [facility] [phone] from Last 3 Months or Most Recently Relevant to Health Maintenance Insurance [facility] MEDICARE ADVANTAGE [employer] MEDICARE ADVANTAGE Advance Directives For more information, please contact: [phone] * Full Code (Latest Code Status on [...] patie nt/ legal decision maker Care Teams Computer Numerical Control Machinist Relationship Specialty Start Date End Date Tyrell Schneider [address] [place] [address] PCP - General Family Medicine 02/19/23
--- OUTSIDE RECORDS SUMMARY | 2024-04-29 05:31 | XMS_ITS | Encounter Summary ---
Author Organization [facility] Address [address] [place] [address] Care Team Providers Care Java Manager Name Role Phone Unavailable Primary Care Provider Unavailabl e Encounter Details Date Type Department Care Team (Late st Contact Info) Description 08/03/2015 Historical Ophthalmology [facility]ST OPH Eva Heard M.D. [address] [facility] [address] [place] [id number] Social History Tobacco Use Types Packs/Day Years Used Date Smoking Tobacco: Never Assessed Comments Unknown Sex and Gender Information Value Date Recorded Sex Assigned at Not on file Legal Sex Female 10:27 PM CLASSROOM MONITOR Gender Identity Female 01/08/2022 2:47 PM CLASSROOM MONITOR Sexual Orientation Straight 01/08/2022 2: 47 PM CLASSROOM MONITOR documented as of this encounter Progress Notes [...] intra-op intravitreal vancomycin and ceftazadime Seen with NDT INSPECTOR today. 06/13/15: Paul negative. Well formed chamber, with normal IOP. Graft and sutures intact. Suture reaction most significant inferiorly, will continue pred forte TID and consider suture removal inferiorly at next visit. 06/16/15: Paul negative, formed chamber, suture reaction on all original graft sutures, no loose sutures, discussed with LJM, continue current drops and return next week when NDT INSPECTOR here. Seen with SCB today. 06/20/15: Paul negative, formed chamber, suture reaction decreased, seen with NDT INSPECTOR, M Parasol occluder placed in left lower puncum, expires 2018, LOT [id number] 06/27/15: Paul negative, increased edema over snowman [...] both eyes CDM Reports - EYEGEN Id: [id number] Status: Fnl documented in this encounter Plan of Treatment Not on file documented as of this encounter Visit Diagnoses Not on filedocumented in this encounter
--- OUTSIDE RECORDS SUMMARY | 2024-04-29 05:31 | XMS_ITS | Encounter Summary ---
Author Organization [facility] Address [address] [place] [address] Care Team Providers Care Threat Monitoring Analyst Name Role Phone Unavailable Primary Care Provider Unavailabl e Encounter Details Date Type Department Care Team (Late st Contact Info) Description 09/26/2015 Historical Ophthalmology [facility]ST OPH Deann Colby M.D. [address] [place] [phone] Social History Tobacco Use Types Packs/Day Years Used Date Smoking Tobacco: Never Assessed Comments Unknown Sex and Gender Information Value Date Recorded Sex Assigned at Not on file Legal Sex Female 10:27 PM STANDARDS ANALYST Gender Identity Female 01/08/2022 2:47 PM STANDARDS ANALYST Sexual Orientation Straight 01/08/2022 2: 47 PM STANDARDS ANALYST documented as of this encounter Progress [...] intra-op intravitreal vancomycin and ceftazadime Seen with PARAFFINER today. 26 Sep 2015: Corneal edema continues [...] vision, worsening concerns. Must come in when PARAFFINER is here. Use fluorescein strips only, not [...] right eye CDM Reports - EYEGEN Id: [id number] Status: Fnl documented in this encounter Plan of Treatment Not on file documented as of this encounter Visit Diagnoses Not on filedocumented in this encounter
--- OUTSIDE RECORDS SUMMARY | 2024-04-29 05:31 | XMS_ITS | Clinical Summary ---
Author Organization [facility] Address [address] [place] [address] Care Team Providers Care Services Engineer Name Role Phone Unavailable Primary Care Provider Unavailabl e Source Comments Patient records contain information from all sites at [facility]. For routine questions regarding patient records, call [phone] during business hours, M-F 8:00 AM - 5:00 PM Central Time. Record requests for emergency care only can be directed to [phone] at any time.[facility] Allergies Active Allergy Reactions Criticality Noted [...] Itching 01/09/2010 itching Niacin Itching 05/13/2006 itch [place] Rash 05/16/2010 Campus [id number] Oil Other (see comments) 01/09/2010 itching Pioglitazone [...] (04/25/2021): Added automatically from request for surgery [id number] Major Depressive Disorder, Recurrent, Unspecifie d 03/22/2021 Anemia In Chronic Kidney Disease 04/18/2018 Chronic Obstructive Pulmonary Disease 04/18/2018 Failure Renal End Stage 04/18/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 Med Refill 02/07/2024 Refill Department of Ophthalmology in [place], [place] [address] [place] [address] Luma Solis M.D., M.S. Med Refill from [...] on file Legal Sex Female 10:27 PM MARKER MACHINE Gender Identity Female 01/08/2022 2:47 PM MARKER MACHINE Sexual Orientation Straight 01/08/2022 2: 47 PM MARKER MACHINE Last Filed Vital Signs Vital Sign Reading [...] tracking) 02/12/2024 Fall Risk Screen (Annual) 02/12/2024 COVID-19 Vaccine ( season) 2024 11/22/2023, 12/25/2022, 10/25/2021, Additional history exists Dilated Eye Exam 08/21/2024 08/22/2023, , 07/04/2023, Additional history exists Creatinine Level (Kidney Function Test) 03/31/2025 03/31/2024, 02/21/2023, 02/20/2023, Additional history exists Potassium Level 03/31/2025 03/31/2024, 02/11, 02/20/2023, Additional history exists Sodium Level 03/31/2025 03/31/2024, 02/11, 02/20/2023, Additional history exists Bone Density Scan (Osteoporosis [...] this topic Medical Devices Implanted Type Area Laboratory Geneticist Device Identifier Shelf Expiration Date Model / Serial / Lot Cornea [id number] Implanted:Qty: 1 on 05/13/2015 Ocular (Eye) Implant Other/Legacy - See Implant Description [employer] Description:Device Manufactu rer - [employer]. Body Location - Other. Left. Device Status Text - [id number]. Cornea - [id number] Implanted:Qty: 1 on 06/10/2015 Ocular (Eye) Implant Other/Legacy - See Implant Description [employer] Description:Device Manufactu rer - [employer]. Body Location - Other. Left. Device Status Text - [id number]. Procedures Procedure Name Priority Date/Time Associated Diagnosis [...] A1c, B 8.1(H) 4.0 - 6.0 % [facility] 05/13/2015 11:3 1 PM CDT 05/13/2015 11:31 PM CDT us Frantz Lee M.D. LAB BLOOD ADD-ON Final Resu lt [facility] [address] [place] [id number] from Last 3 Months or Most Recently Relevant to Health Maintenance Insurance [facility] MEDICARE
--- OUTSIDE RECORDS SUMMARY | 2024-04-29 05:31 | XMS_ITS | Encounter Summary ---
Author Organization [facility] Address [address] [place] [address] Care Team Providers Care Cmm Inspector Name Role Phone Unavailable Primary Care Provider Unavailabl e Encounter Details Date Type Department Care Team (Late st Contact Info) Description 07/18/2015 Historical Ophthalmology RST OPH Eva Heard M.D. [address] [facility] [address] [place] [phone] Social History Tobacco Use Types Packs/Day Years Used Date Smoking Tobacco: Never Assessed Comments Unknown Sex and Gender Information Value Date Recorded Sex Assigned at Not on file Legal Sex Female 10:27 PM UTILITY INSPECTOR Gender Identity Female 01/08/2022 2:47 PM UTILITY INSPECTOR Sexual Orientation Straight 01/08/2022 2: 47 PM UTILITY INSPECTOR documented as of this encounter Progress [...] intra-op intravitreal vancomycin and ceftazadime Seen with SOD FARMER today. 06/13/15: Paul negative. Well formed chamber, with normal IOP. Graft and sutures intact. Suture reaction most significant inferiorly, will continue pred forte TID and consider suture removal inferiorly at next visit. 06/16/15: Paul negative, formed chamber, suture reaction on all original graft sutures, no loose sutures, discussed with LJM, continue current drops and return next week when SOD FARMER here. Seen with SCB today. 06/20/15: Paul negative, formed chamber, suture reaction decreased, seen with SOD FARMER, M Parasol occluder placed in left lower puncu, expires 2018, LOT [id number] 06/27/15: Paul negative, increased edema over snowman [...] Monocular status CDM Reports - EYEGEN Id: [id number] Status: Fnl documented in this encounter Plan of Treatment Not on file documented as of this encounter Visit Diagnoses Not on filedocumented in this encounter
--- OUTSIDE RECORDS SUMMARY | 2024-04-29 05:31 | XMS_ITS | Clinical Summary ---
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 CORRESP-EKG RESULTS (03/31/2024 8:41 AM BOUNTY HUNTER) Narrative 03/31/2024 8:41 AM BOUNTY HUNTER Ordered by an unspecified provider. Other Clinical Staff OTHER Final Resul t * (ABNORMAL) CBC WITH AUTO DIFFERENTIAL (03/31/2024 6:23 AM BOUNTY HUNTER) [facility] WHITE BLOOD COUNT 9.2 4.5 - 11.0 thou/cu mm 03/31/2024 6:38 AM [facility] RED BLOOD COUNT 3.26(L) 4.00 - 5.20 mil/cu mm 03/31/2024 6:38 AM [facility] HEMOGLOBIN 9.2(L) 12.0 - 16.0 g/dL 03/31/2024 6:38 AM [facility] HEMATOCRIT 30.2(L) 33.0 - 51.0 % 03/31/2024 6:38 AM [facility] MCV 93 80 - 100 fL 03/31/2024 6:38 AM [facility] MCH 28.2 26.0 - 34.0 pg 03/31/2024 6:38 AM [facility] MCHC 30.5(L) 32.0 - 36.0 g/dL 03/31/2024 6:38 AM [facility] RDW 17.0(H) 11.5 - 15.5 % 03/31/2024 6:38 AM [facility] PLATELET COUNT 216 140 - 440 thou/cu mm 03/31/2024 6:38 AM [facility] MPV 10.0 6.5 - 11.0 fL 03/31/2024 6:38 AM [facility] NRBC 0.0 % 03/31/2024 6:38 AM [facility] ABS NRBC 0.0 thou /cu mm 03/31/2024 6:38 AM [facility] % NEUT 82.3 % 03/31/2024 6:38 AM [facility] % LYMPH 6.6 % 03/31/2024 6:38 AM [facility] % MONO 8.2 % 03/31/2024 6:38 AM [facility] % EOS 2.1 % 03/31/2024 6:38 AM [facility] % BASO 0.5 % 03/31/2024 6:38 AM [facility] % IMMATURE GRAN (METAS,MYELOS,IN OS) 0.3 % 03/31/2024 6:38 AM [facility] ABSOLUTE NEUTROPHILS 7.5(H) 1.7 - 7.0 thou/cu mm 03/31/2024 6:38 AM [facility] ABSOLUTE LYMPHOCYTES 0.6(L) 0.9 - 2.9 thou/cu mm 03/31/2024 6:38 AM [facility] ABSOLUTE MONOCYTES 0.8 <0.9 thou/cu mm 03/31/2024 6:38 AM [facility] ABSOLUTE EOSINOPHILS 0.2 <0.5 thou/cu mm 03/31/2024 6:38 AM [facility] ABSOLUTE BASOPHILS 0.1 <0.3 thou/cu mm 03/31/2024 6:38 AM [facility] ABSOLUTE IMMATURE GRANULOCYTES(MET ,MYELOS,PROS) 0.0 <0.3 thou/cu mm 03/31/2024 6:38 AM [facility] Blood BLOOD SPECIMEN / Unknown Butterfly / Unknown 03/31/2024 6:23 AM BOUNTY HUNTER 03/31/2024 6:31 AM BOUNTY HUNTER us Karthik Mann MD HEMATOLOGY Final Resu lt [facility] INTERNAL ZIP [phone] [place] [address] * (ABNORMAL) RENAL FUNCTION PANEL (03/31/2024 6:23 AM BOUNTY HUNTER) SODIUM 131(L) 136 - 145 mmol/L 03/31/2024 6:58 AM [facility] POTASSIUM 4.0 3.5 - 5.1 mmol/L 03/31/2024 6:58 AM [facility] CHLORIDE 98 98 - 107 mmol/L 03/31/2024 6:58 AM [facility] CO2,TOTAL 22 22 - 29 mmol/L 03/31/2024 6:58 AM [facility] ANION GAP 11 5 - 18 03/31/2024 6:58 AM [facility] GLUCOSE 212(H) 70 - 99 mg/dL 03/31/2024 6:58 AM [facility] CALCIUM 8.6(L) 8.8 - 10.4 mg/dL 03/31/2024 6:58 AM [facility] Comment: Reference ranges for this test were updated on 12/17/2023 to reflect our healthy population more accurately. Reference range changes are not retroactively applied to results, but previous results using the same methodology can be interpreted in the context of the new reference range. BUN 43(H) 8 - 23 mg/dL 03/31/2024 6:58 AM [facility] CREATININE 4.14(H) 0.50 - 0.90 mg/dL 03/31/2024 6:58 AM [facility] BUN/CREAT RATIO 10 10 - 20 6:58 AM [facility] eGFR 11(L) >90 mL/min/1. 73m2 03/31/2024 6:58 AM BOUNTY HUNTER [facility] Comment:As of 2021, eG FR is calculated by the CKD-EPI creatinine equation without race adjustment. eGFR can be influenced by muscle mass, exercise, and diet. The reported eGFR is an estimation only and is only applicable if the renal function is stable. PHOSPHORUS 3.9 2.5 - 4.5 mg/dL 03/31/2024 6:58 AM BOUNTY HUNTER [facility] ALBUMIN 3.4(L) 4.0 - 4.9 g/dL 03/31/2024 6:58 AM BOUNTY HUNTER [facility] Blood BLOOD SPECIMEN / Unknown Butterfly / Unknown 03/31/2024 6:23 AM BOUNTY HUNTER 03/31/2024 6:31 AM BOUNTY HUNTER us Karthik Mann MD CHEMISTRY Final Resu lt [facility] INTERNAL ZIP [phone] [place] [address] * SCAN-CT INTERPRETATION (03/30/2024 12:00 AM BOUNTY HUNTER) Anatomical Region Laterality Modality Other us Scanner OTHER Final Result * XR DXA BONE DENSITY 2 SITES AXIAL (04/12/2016 1:49 PM BOUNTY HUNTER) Anatomical Region Laterality Modality Spine, HIPS, HIPL, HIPR Other Narrative 04/13/2016 10:06 AM BOUNTY HUNTER Please see scanned document for results of this study. us Tyrell Schneider MD DEXA Final Result * ANTI HCV (04/04/2016 1:32 PM BOUNTY HUNTER) HEPATITIS C ANTIBODY Non-Reacti ve Non-Reacti ve 04/04/2016 7:49 PM BOUNTY HUNTER [facility] Blood BLOOD SPECIMEN / Unknown Venipuncture / Unknown 04/04/2016 1:32 PM BOUNTY HUNTER 04/04/2016 3:22 PM BOUNTY HUNTER Narrative [facility] LAB[facility] - 04/04/2016 7:49 PM BOUNTY HUNTER Antibodies to HCV not detected; does not exclude the possibility of exposure to HCV. us Tyrell Schneider MD SEND OUTS Final Result [facility] [address] [place] [address], [place] from Last 3 Months or Most Recently Relevant to Health Maintenance Insurance MEDICARE PART A HB ONLY [facility] SCHWARTZ * Guarantor: [employer] Account Type Relation to Patient Date of Phone Billing Address Occ Health/[place] [address] [place] [address] [employer] Advance Directives * Full Code (Latest Code Status on File) Date Activated Date Inactivated Comments 03/30/2024 8:27 PM 04/02/2024 4:55 PM Question Answer Comments Code Status Discussion: Reviewed Preferences Care Teams Monotype Operator Relationship Specialty Start Date End Date Tyrell Schneider MD [address] [place] [address] PCP - General 10/08/05 Kirti Rai, SUSANA [address] [place] [address] [place] [address] Nurse Navigator - Oncology Registered Nurse 04/17/24
--- OUTSIDE RECORDS SUMMARY | 2024-04-29 05:31 | XMS_ITS | Encounter Summary ---
Author Organization [facility] Address [address] [place] [address] Care Team Providers Care Radiological Technologist Name Role Phone Unavailable Primary Care Provider Unavailabl e Encounter Details Date Type Department Care Team (Late st Contact Info) Description 10/13/2015 Historical Ophthalmology [facility]ST O[facility] Deann Colby M.D. 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 - 10/13/2015 8:07 AM CDT [...] intra-op intravitreal vancomycin and ceftazadime Discussed with ASPHALT PATCHER today. 13 Oct 2015: Corneal edema continues [...] vision, worsening concerns. Must come in when ASPHALT PATCHER is here. Use fluorescein strips only, not [...] #4 Floaters, right eye CDM Reports - [facility] [employer] Id: [id number] Status: Fnl documented in this encounter Plan of Treatment Not on file documented as of this encounter Visit Diagnoses Not on filedocumented in this encounter
--- OUTSIDE RECORDS SUMMARY | 2024-04-29 05:31 | XMS_ITS | Encounter Summary ---
Author Organization [facility] Address [address] [place] [address] Care Team Providers Care Engineer Booster And Exhauster Name Role Phone Unavailable Primary Care Provider Unavailabl e Encounter Details Date Type Department Care Team (Late st Contact Info) Description 11/23/2015 Historical Ophthalmology [facility]ST O[facility] Deann Colby M.D. 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 23 Nov 2015: Corneal edema continues [...] vision, worsening concerns. Must come in when COIL FINISHER is here (preferably as COS staff). Use [...] right eye CDM Reports - [employer] Id: [id number] Status: Fnl documented in this encounter Plan of Treatment Not on file documented as of this encounter Visit Diagnoses Not on filedocumented in this encounter
--- OUTSIDE RECORDS SUMMARY | 2024-04-29 05:31 | XMS_ITS | Encounter Summary ---
Author Organization [facility] Address [address] [place] [address] Care Team Providers Care Rn Homecare Name Role Phone Unavailable Primary Care Provider Unavailabl e Encounter Details Date Type Department Care Team (Late st Contact Info) Description 07/04/2015 Historical Ophthalmology RST OPH Eva Heard M.D. 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 - 07/04/2015 9:39 AM CDT Eye Postoperative MULTI-VISIT DOCUMENT This document contains multiple patient visits and is available for review in Document Viewer. CDM Reports - [facility] Id: [id number] Status: Fnl documented in this encounter Plan of Treatment Not on file documented as of this encounter Visit Diagnoses Not on filedocumented in this encounter
--- OUTSIDE RECORDS SUMMARY | 2024-04-29 05:31 | XMS_ITS | Encounter Summary ---
Author Organization [facility] Address [address] [place] [address] Care Team Providers Care Registered Phlebotomist Part Time Name Role Phone Unavailable Primary Care Provider Unavailabl e Encounter Details Date Type Department Care Team (Late st Contact Info) Description 10/24/2015 Historical Ophthalmology RST O[facility] Deann Colby M.D. [address] [place] [phone] Social History Tobacco Use Types Packs/Day Years Used Date Smoking Tobacco: Never Assessed Comments Unknown Sex and Gender Information Value Date Recorded Sex Assigned at Not on file Legal Sex Female 10:27 PM SHIRT PRESSER Gender Identity Female 01/08/2022 2:47 PM SHIRT PRESSER Sexual Orientation Straight 01/08/2022 2: 47 PM SHIRT PRESSER documented as of this encounter Progress Notes [...] intra-op intravitreal vancomycin and ceftazadime Discussed with DESIGN PRINTING MACHINE SET UP OPERATOR today. 24 Oct 2015: Corneal edema continues [...] vision, worsening concerns. Must come in when DESIGN PRINTING MACHINE SET UP OPERATOR is here. Use fluorescein strips only, [...] #4 Floaters, right eye [facility] Id: [id number] Status: Fnl documented in this encounter Plan of Treatment Not on file documented as of this encounter Visit Diagnoses Not on filedocumented in this encounter
--- OUTSIDE RECORDS SUMMARY | 2024-04-29 05:31 | XMS_ITS | Encounter Summary ---
Author Organization [facility] Address [address] [place] [id number] Care Team Providers Care Computer Engineering Technician Name Role Phone Schneider Tyrell Bulmaro Primary Care Provider [phone] Reason for Visit * Reason Comments Chest Pain Encounter Details Date Type Department Care Team (Late st Contact Info) Description 04/27/2024 1:37 PM CDT - 04/27/2024 8:51 PM CDT Emergency [facility] Emergency Dept [address] [place] [address] Jason Tapia MD [facility] [address] [place], [place] [address] Left-sided chest pain; Mass of upper lobe of left lung Discharge Disposition: Home or Self Care Social [...] Mass Index 16.06 04/27/2024 2:12 PM CDT documented in this encounter Discharge Instructions * Discharge Instructions* Jason Tapia MD - 04/27/2024 7:21 PM CDT Follow-up with the cancer clinic in [place] as you already plan to do Use Tylenol for pain or discomfort * Attachments The following attachments cannot be sent through Care Everywhere. * Chest Pain (Malawian) documented in this encounter Medications at Time of Discharge albuterol (PROAIR HFA/PROVENTIL HFA/VENTOLIN HFA) 108 (90 Base) MCG/ACT inhaler Inhale 2 puffs into the lungs every 6 hours as needed for shortness of breath, wheezing or cough. albuterol (PROVENTIL) (2.5 MG/3ML) 0.083% neb solution Take 2.5 mg by nebulization every 4 hours as needed for shortness of breath 09/10/2022 calcium acetate (PHOSLO) 667 MG CAPS capsule Take 2,001 mg by mouth 3 times daily (with meals). carboxymethylcell ulose PF (REFRESH PLUS) 0.5 % ophthalmic solution Place 1 drop into both eyes 2 times daily cloNIDine (CATAPRES) 0.1 MG tablet Take 0.3 mg by mouth every evening erythromycin (ROMYCIN) 5 MG/GM ophthalmic ointment Place Into the left eye 4 times daily 09/25/2022 fluticasone-vilan terol (BREO ELLIPTA) 100-25 MCG/ACT inhaler Inhale 1 puff into the lungs daily. furosemide (LASIX) 40 MG tablet Take 40 mg by mouth daily glipiZIDE (GLUCOTROL XL) 10 MG 24 hr tablet Take 20 mg by mouth every morning 11/14/2022 hydrALAZINE (APRESOLINE) 100 MG tablet Take 100 mg by mouth 3 times daily. ipratropium - albuterol 0.5 mg/2.5 mg/3 mL (DUONEB) 0.5-2.5 (3) MG/3ML neb solution Inhale 3 mLs into the lungs every 6 hours as needed for shortness of breath 12/13/2020 losartan (COZAAR) 50 MG tablet Take 50 mg by mouth daily. methocarbamol (ROBAXIN) 500 MG tablet Take 500 mg by mouth 2 times daily as needed for muscle spasms. multivitamin RENAL (RENAVITE RX/NEPHROVITE) 1 tablet tablet Take 1 tablet by mouth daily neomycin-polymyxi n-dexAMETHasone (MAXITROL) 3.5-11375-4.[address] 0.25 inches Into the left eye 4 times daily 09/24/2022 nicotine (NICODERM CQ) 14 MG/24HR [address] 1 patch onto the skin every 24 hours. NIFEdipine ER (ADALAT CC) 60 MG 24 hr tablet Take 120 mg by mouth every morning (before breakfast). oxyCODONE (ROXICODONE) 5 MG tablet Take 5 mg by mouth 2 times daily as needed for severe pain. pantoprazole (PROTONIX) 40 MG EC tabletIndications :Anemia, unspecified type Take 1 tablet (40 mg) by mouth 2 times daily (before meals) 60 tablet 12/17/2022 repaglinide (PRANDIN) 1 MG tablet Take 1 tablet by mouth 3 times daily (before meals) 12/13/2020 senna-docusate (SENOKOT-S/SAE LACE) 8.6-50 MG tabletIndications :Constipation, unspecified constipation type Take 1 tablet by mouth daily as needed for constipation 02/21/2023 spironolactone (ALDACTONE) 25 MG tablet Take 25 mg by mouth daily. triamcinolone (KENALOG) 0.1 % external cream Apply topically daily as needed for irritation 01/24/2021 documented as of this encounter ED Notes * Lisbeth Gomes RN - 04/27/2024 8:48 PM CDT Patient discharged, IV removed, AVS given, Health teaching done, Wheelchair van came in. * Jason Tapia MD - 04/27/2024 3:22 PM CDT History Chief Complaint: Chest Pain HPI Maricruz Vanegas is a 78 year old female Presenting with left-sided chest pain since this morning around 9 AM when she woke up. Has a hard time describing the pain in terms of descriptors she states that it has hurt since 9 AM this morning.Recently diagnosed with left-sided lung cancer that she tells me but does not recall if she had it chest radiograph or a CT scan. No recent falls or trauma. No fever, sore throat, or congestion. Mild nonproductive cough. Nausea but no vomiting. No melena or hematochezia. History of end-stage renal disease normally dialyzes in [place]. Did not dialyze today which would have been her normal date. Did dialyze on Saturday. History of chronic anemia, remembers getting a unit of blood 2 weeks ago. Currently no chest pain or shortness of breath. States the medicines given by EMS and route improved her symptoms. She received aspirin, fentanyl, nitroglycerin. She did not take her morning medications. Independent Historian: Review of External Notes: See ed course Medications: albuterol (PROAIR HFA/PROVENTIL HFA/VENTOLIN HFA) 108 (90 Base) MCG/ACT inhaler albuterol (PROVENTIL) (2.5 MG/3ML) 0.083% neb solution calcium acetate (PHOSLO) 667 MG CAPS capsule carboxymethylcellulose PF (REFRESH PLUS) 0.5 % ophthalmic solution cloNIDine (CATAPRES) 0.1 MG tablet erythromycin (ROMYCIN) 5 MG/GM ophthalmic ointment fluticasone-vilanterol (BREO ELLIPTA) 100-25 MCG/ACT inhaler furosemide (LASIX) 40 MG tablet glipiZIDE (GLUCOTROL XL) 10 MG 24 hr tablet hydrALAZINE (APRESOLINE) 100 MG tablet ipratropium - albuterol 0.5 mg/2.5 mg/3 mL (DUONEB) 0.5-2.5 (3) MG/3ML neb solution losartan (COZAAR) 50 MG tablet methocarbamol (ROBAXIN) 500 MG tablet multivitamin RENAL (RENAVITE RX/NEPHROVITE) 1 tablet tablet kyccwrlu-ekgkcqgyh-yqkENIEEeghse (MAXITROL) 3.5-46892-6.1 ophthalmic ointment nicotine (NICODERM CQ) 14 MG/24HR 24 hr patch NIFEdipine ER (ADALAT CC) 60 MG 24 hr tablet oxyCODONE (ROXICODONE) 5 MG tablet pantoprazole (PROTONIX) 40 MG EC tablet repaglinide (PRANDIN) 1 MG tablet senna-docusate (SENOKOT-S/PERICOLACE) 8.6-50 MG tablet spironolactone (ALDACTONE) 25 MG tablet triamcinolone (KENALOG) 0.1 % external cream Past Medical History: Past Medical History: Diagnosis [...] Surgeon: Rajan Hernandez MD; Location: [facility] OR Physical Exam Patient Vitals for the past 24 hrs: BP Temp Temp src Pulse Resp SpO2 Height Weight 04/27/24 1626 (!) 192/72 -- -- 69 11 -- -- -- 04/27/24 1537 (!) 207/79 -- -- 71 -- -- -- -- 04/27/24 1501 (!) 200/70 -- -- 73 -- 98 % -- -- 04/27/24 1451 -- -- -- -- 13 -- -- -- 04/27/24 1431 (!) 194/70 -- -- 72 -- 93 % -- -- 04/27/24 1413 (!) 200/66 98.6 ??F (37 ??C) Oral 74 (!) 5 95 % -- -- 04/27/24 1412 -- -- -- -- -- -- 1.549 m (5' 1) 38.6 kg (85 lb) 04/27/24 1343 (!) 172/70 -- -- 76 18 93 % -- -- HENT: mmm, no rhinorrhea Eyes: periorbital tissues and sclera normal Neck: supple, no abnormal swelling Lungs: CTAB, no resp distress CV: rrr, no m/r/g, ppi Abd: soft, nontender, nondistended, no rebound/masses/guarding/hsm Ext: no peripheral edema Skin: warm, dry, well perfused, no rashes/bruising/lesions on exposed skin Neuro: alert, MAEE, no gross motor or sensory deficits, Psych: Normal mood, normal affect Emergency Department Course ECG ECG results from 04/27/24 EKG 12-lead, tracing only Value Systolic Blood Pressure Diastolic Blood Pressure Ventricular Rate 75 Atrial Rate 75 IA Interval 178 QRS Duration 86 QT 394 QTc 439 P [place] 81 R AXIS 44 T [place] 91 Interpretation ECG Sinus rhythm Normal ECG When compared with ECG of 12-Dec-2022 23:09, Non-specific change in ST segment in Inferior leads Non-specific change in ST segment in Anterior leads Nonspecific T wave abnormality no longer evident in Inferior leads T wave inversion no longer evident in Anterolateral leads QT has lengthened Imaging: CT Chest Pulmonary Embolism w Contrast Final Result IMPRESSION: 1. Interval enlargement of now 3.2 cm right upper lobe pulmonary mass, suspicious for primary neoplasm. 2. Enlarged mediastinal and hilar lymph nodes, suspicious for disease involvement. 3. Complete collapse of the left upper lobe, could be secondary to compression from #2. 4. Small bilateral pleural effusions. 5. No pulmonary embolism. US Lower Extremity Venous Duplex Right Final Result IMPRESSION: 1. No deep venous thrombosis in the right lower extremity. 2. Anechoic avascular fluid collection right groin. Laboratory: Labs Ordered and Resulted from Time of ED Arrival to Time of ED Departure COMPREHENSIVE METABOLIC PANEL - Abnormal Result Value Sodium 129 (*) Potassium 4.6 Carbon Dioxide (CO2) 22 Anion Gap 17 (*) Urea Nitrogen 71.0 (*) Creatinine 6.37 (*) GFR Estimate 6 (*) Calcium 9.0 Chloride 90 (*) Glucose 232 (*) Alkaline Phosphatase 132 AST 18 ALT 15 Protein Total 7.1 Albumin 3.2 (*) Bilirubin Total 0.2 TROPONIN T, HIGH SENSITIVITY - Abnormal Troponin T, High Sensitivity 135 (*) CBC WITH PLATELETS AND DIFFERENTIAL - Abnormal WBC Count 14.2 (*) RBC Count 2.60 (*) Hemoglobin 7.4 (*) Hematocrit 23.1 (*) MCV 89 MCH 28.5 MCHC 32.0 RDW 16.4 (*) Platelet Count 422 % Neutrophils 91 % Lymphocytes 3 % Monocytes 4 % Eosinophils 1 % Basophils 0 % Immature Granulocytes 1 NRBCs per 100 WBC 0 Absolute Neutrophils 13.0 (*) Absolute Lymphocytes 0.5 (*) Absolute Monocytes 0.5 Absolute Eosinophils 0.2 Absolute Basophils 0.0 Absolute Immature Granulocytes 0.1 Absolute NRBCs 0.0 D DIMER QUANTITATIVE - Abnormal D-Dimer Quantitative 4.13 (*) TROPONIN T, HIGH SENSITIVITY - Abnormal Troponin T, High Sensitivity 144 (*) TROPONIN T, HIGH SENSITIVITY - Abnormal Troponin T, High Sensitivity 137 (*) Procedures Emergency Department Course & Assessments: Interventions: Medications amLODIPine (NORVASC) tablet 10 mg (10 mg Oral $Given 04/27/24 1524) cloNIDine (CATAPRES) tablet 0.1 mg (0.1 mg Oral $Given 04/27/24 1524) labetalol (NORMODYNE) tablet 600 mg (600 mg Oral $Given 04/27/24 1537) CT Scan Flush (75 mLs Intravenous $Given 04/27/24 1744) iopamidol (ISOVUE-370) solution 500 mL (47 mLs Intravenous $Given 04/27/24 1744) Assessments: Independent Interpretation (X-rays, CTs, rhythm strip): Consultations/Discussion of Management or Tests: ED Course as of 04/27/242031 Mon Apr 27, 2024 1436 Hemoglobin in April 22, 2024 in Care Everywhere shows hemoglobin of 6.6 1436 Hemoglobin Care Everywhere April 15, [address] interpreted by me at 1447: Normal sinus rhythm, no evidence of acute ischemia. Narrow complex, QT not prolonged, 1833 Lung biopsy April 07, 2024 [facility] was positive for malignancy, squamous cell carcinoma. 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 No preceding respiratory tract infectious symptoms. Pain resolved with EMS interventions and has not recurred. EKG here shows no signs of acute ischemia. Troponin is elevated and so trended given history of end-stage renal disease and some level of elevation expected. 3 troponins, no concerning pattern for acute occlusive coronary event. Blood pressure elevated has known hypertension on multiple antihypertensives and had not had her home medication. I do not think this represents hypertensive emergency. D-dimer over [address] scan done shows no concomitant pulmonary embolism or other vascular catastrophe. Redemonstrates this enlarging left upper lobe mass. We see no description of pneumothorax or erosion into surrounding bony structures. I think she can be discharged home and continue to follow-up with her PCP and oncology in [place]. She was comfortable and agreeable with that plan. We discussed the contrasted CT and the need fordialysis which her next is on Saturday. No indication for emergent dialysis today in the emergencyroom. Discussed with her sister as well everyone was comfortable and agreeable with that plan. Diagnosis: ICD-10-CM 1. Left-sided chest pain R07.9 2. Mass of upper lobe of left lung R91.8 Discharge Medications: New Prescriptions No medications on file Jason Tapia MD 04/27/2024 Jason Tapia, * Jason Tapia MD 04/27/242031 * Marry Bell RN - 04/27/2024 2:11 PM CDT Bed: ED17 Expected date: Expected time: Means of arrival: Comments: hallway * Marry Bell RN - 04/27/2024 1:44 PM CDT Arrives via EMS from home. States chest pain which started this morning. RECENT diagnosis of lung cancer on the L side. Describes chest pain on the left side. Current smoker. Current HD patient and did not go this morning. 22 R FA. 324 ASA taken prior to EMS arrived. 75 mcg of fet, 2 nitroglycerin given by EMS. 2 L NC. Otherwise VSS. documented in this encounter Miscellaneous Notes * Pharmacy-Admission Medication History - Tony Alcantar RPH - 04/27/2024 5:16 PM CDT Pharmacist Admission Medication History Admission medication history is complete. The information provided in this note is only as accurateas the sources available at the time of the update. Information Source(s): Patient, Patient's pharmacy, and Prescription bottles via in-person and phone Pertinent Information: patient had all her home meds with her; compiled current med list to best ofmy ability.and by confirming fill history over phone with pharmacist at primary pharmacy Changes made to PEDIAT[employer]IC [employer]OR[employer] MEDIC[employer] SPECIALIST medication list: Added: calcium acetate, hydralazine, losartan, methocarbamol, nifedipine, spironolactone, Breo inhaler, Albuterol inhaler Deleted: senna, sorbitol, Incruse inhaler, miralax, labetalol, cetirizine, amlodipine Changed: nicotine patch (21 mg --> 14 mg) Allergies reviewed with patient and updates made in EHR: no Medication History Completed By: Tony Alcantar RPH 04/27/2024 5:16 PM PEDIATRIC [employer] MEDIC[employer] SPECIALIST Med List Medication Sig Note Last Dose/Taking albuterol (PROAIR HFA/PROVENTIL HFA/VENTOLIN HFA) 108 (90 Base) MCG/ACT inhaler Inhale 2 puffs intothe lungs every 6 hours as needed for shortness of breath, wheezing or cough. Past Month albuterol (PROVENTIL) (2.5 MG/3ML) 0.083% neb solution Take 2.5 mg by nebulization every 4 hours asneeded for shortness of breath More than a month calcium acetate (PHOSLO) 667 MG CAPS capsule Take 2,001 mg by mouth 3 times daily (with meals). Past Week carboxymethylcellulose PF (REFRESH PLUS) 0.5 % ophthalmic solution Place 1 drop into both eyes 2 times daily Past Week cloNIDine (CATAPRES) 0.1 MG tablet Take 0.3 mg by mouth every evening Past Week erythromycin (ROMYCIN) 5 MG/GM ophthalmic ointment Place Into the left eye 4 times daily 04/27/2024:PRN More than a month fluticasone-vilanterol (BREO ELLIPTA) 100-25 MCG/ACT inhaler Inhale 1 puff into the lungs daily. Past Week furosemide (LASIX) 40 MG tablet Take 40 mg by mouth daily Past Week glipiZIDE (GLUCOTROL XL) 10 MG 24 hr tablet Take 20 mg by mouth every morning Past Week hydrALAZINE (APRESOLINE) 100 MG tablet Take 100 mg by mouth 3 times daily. Past Week ipratropium - albuterol 0.5 mg/2.5 mg/3 mL (DUONEB) 0.5-2.5 (3) MG/3ML neb solution Inhale 3 mLs into the lungs every 6 hours as needed for shortness of breath Past Month losartan (COZAAR) 50 MG tablet Take 50 mg by mouth daily. Past Week methocarbamol (ROBAXIN) 500 MG tablet Take 500 mg by mouth 2 times daily as needed for muscle spasms. Past Month multivitamin RENAL (RENAVITE RX/NEPHROVITE) 1 tablet tablet Take 1 tablet by mouth daily Past Week jqelnqvo-ykzxznxpg-bjaKKBETvhzby (MAXITROL) 3.5-00116-7.[address] 0.25 inches Into the left eye 4 times daily 04/27/2024: PRN More than a month nicotine (NICODERM CQ) 14 MG/24HR [address] 1 patch onto the skin every 24 hours. Past Week NIFEdipine ER (ADALAT CC) 60 MG 24 hr tablet Take 120 mg by mouth every morning (before breakfast).Past Week oxyCODONE (ROXICODONE) 5 MG tablet Take 5 mg by mouth 2 times daily as needed for severe pain. Morethan a month pantoprazole (PROTONIX) 40 MG EC tablet Take 1 tablet (40 mg) by mouth 2 times daily (before meals)Past Week repaglinide (PRANDIN) 1 MG tablet Take 1 tablet by mouth 3 times daily (before meals) Past Week senna-docusate (SENOKOT-S/PERICOLACE) 8.6-50 MG tablet Take 1 tablet by mouth daily as needed for constipation More than a month spironolactone (ALDACTONE) 25 MG tablet Take 25 mg by mouth daily. Past Week triamcinolone (KENALOG) 0.1 % external cream Apply topically daily as needed for irritation More than a month documented in this encounter Plan of Treatment Pending Results Name Type Priority Associated Diagnoses Date /Time EKG 12-lead, tracing only EKG STAT 04/27/2024 2:32 PM CDT documented as of this encounter Procedures Procedure Name Priority Date/Time Associated Diagnosis Comments TROPONIN T, HIGH SENSITIVITY STAT 04/27/2024 6:[address] CHEST PULMONARY EMBOLISM W CONTRAST STAT 04/27/2024 5:45 PM CDT US LOWER EXTREMITY VENOUS DUPLEX RIGHT STAT 04/27/2024 5:05 PM CDT TROPONIN T, HIGH SENSITIVITY STAT 04/27/2024 3:52 PM CDT EKG 12-LEAD, TRACING ONLY STAT 04/27/2024 2:32 PM CDT EXTRA TUBE STAT 04/27/2024 1:53 PM CDT EXTRA RED TOP TUBE STAT 04/27/2024 1: 53 PM CDT EXTRA BLUE TOP TUBE STAT 04/27/2024 1 :53 PM CDT CBC WITH PLATELETS AND DIFFERENTIAL STAT 04/27/2024 1:53 PM CDT TROPONIN T, HIGH SENSITIVITY STAT 04/27/2024 1:53 PM CDT CBC WITH PLATELETS & DIFFERENTIAL STAT 04/27/2024 1:53 PM CDT D DIMER QUANTITATIVE STAT 04/27/2024 1:53 PM CDT COMPREHENSIVE METABOLIC PANEL STAT 04/27/2024 1:53 PM CDT documented in this encounter Results * (ABNORMAL) Troponin T, High Sensitivity (04/27/2024 6:12 PM CDT) Troponin T, High Sensitivity 137(HH) <=14 ng/L [...] MD LAB - BLOOD ORDERABLES Final Result [facility] Acute Care Lab [address] Lab (1st floor, no room number) [place] [address], [facility] * CT Chest Pulmonary Embolism w Contrast [...] CT CHEST PULMONARY EMBOLISM W CONTRAST LOCATION: [facility] DATE: 04/27/2024 INDICATION: Chest pain, elevated d-dimer [...] CT CHEST PULMONARY EMBOLISM W CONTRAST LOCATION: [facility] DATE: 04/27/2024 INDICATION: Chest pain, elevated d-dimer [...] lobe. Small bilateral pleural effusions without viet airspaceconsolidation. MEDIASTINUM/AXILLAE: Multiple enlarged mediastinal and hilar lymph nodeswith right suprahilar node measuring 1.8 cm in short axis (series 6 [id number]) and left prevascular node measuring 1.2 cm [...] US LOWER EXTREMITY VENOUS DUPLEX RIGHT LOCATION: [facility] DATE: 04/27/2024 INDICATION: RLQ pain, no trauma [...] US LOWER EXTREMITY VENOUS DUPLEX RIGHT LOCATION: [facility] DATE: 04/27/2024 INDICATION: RLQ pain, no trauma [...] 2. Anechoic avascular fluid collection right groin. Jason Tapia MD [facility] US ORDERABLES Final Result * (ABNORMAL) Troponin T, High Sensitivity (04/27/2024 3:52 PM CDT) [facility] Troponin T, High Sensitivity 144(HH) <=14 ng/L 04/27/2024 4:24 PM CDT LABORATORY Comment: Either a High [...] SPECIMEN / Unknown Venipuncture / Unknown 04/27/2024 3:52 PM CDT 04/27/2024 3:58 PM CDT Jason Tapia MD LAB - BLOOD ORDERABLES Final Result LABORATORY [facility] Acute Care Lab [address] [facility] Lab (1st floor, no room number) [place] [address], [facility] * (ABNORMAL) D dimer quantitative (04/27/2024 1:53 PM CDT) D-Dimer Quantitative 4.13(H) 0.00 - 0.50 ug/mL FEU 04/27/2024 4:23 PM CDT LABORATORY Blood BLOOD SPECIMEN / Unknown Venipuncture / Unknown 04/27/2024 1:53 PM CDT 04/27/2024 1:56 PM CDT Narrative LABORATORY - 04/27/2024 4:23 PM CDT This [...] out pulmonary embolism: The ADJUST-PE Study. REGINA 2014;311:7974-9888.; HJ Rey et al. Diagnostic accuracy of conventional or age adjusted D-dimer cutoff values in older patients with suspected venous thromboembolism. Systemic review and meta-analysis. BMJ 2013:346:f2492. us Jason Tapia MD LAB - BLOOD ORDERABLES Final Result LABORATORY [facility] Acute Care Lab [address] [facility] Lab (1st floor, no room number) [place] [address] * Extra Red Top Tube (04/27/2024 1:53 PM CDT) Hold Specimen JIC 04/27/2024 3:01 PM CDT LABORATORY Blood BLOOD SPECIMEN / Unknown Venipuncture / Unknown 04/27/2024 1:53 PM CDT 04/27/2024 1:56 PM CDT Jason Tapia MD LAB - BLOOD ORDERABLES Final Result LABORATORY [facility] Acute Care Lab [address] Lab (1st floor, no room number) [place] [address] * Extra Blue Top Tube (04/27/2024 1:53 PM CDT) Hold Specimen JIC 04/27/2024 3:01 PM CDT LABORATORY Blood BLOOD SPECIMEN / Unknown Venipuncture / Unknown 04/27/2024 1:53 PM CDT 04/27/2024 1:56 PM CDT Jason Tapia MD LAB - BLOOD ORDERABLES Final Result Performing Organization Address [facility]/ZIP Co de Phone Number [facility] Acute Care Lab [address] Lab (1st floor, no room number) [place] [phone] [place] [address] * (ABNORMAL) CBC with platelets and differential (04/27/2024 1:53 PM CDT) WBC Count 14.2(H) 4.0 - 11.0 10e3/uL [...] - BLOOD ORDERABLES Final Result [facility] LABORATORY [facility] Acute Care Lab [address] Lab (1st floor, no room number) [place] [address], [facility] * (ABNORMAL) Troponin T, High Sensitivity (04/27/2024 1:53 PM CDT) Troponin T, High Sensitivity 135(HH) <=14 ng/L 04/27/2024 2:45 PM CDT LABORATORY Comment: Either a High [...] LAB - BLOOD ORDERABLES Final Result LABORATORY [facility] Acute Care Lab [address] Lab (1st floor, no room number) [place] [address], [facility] * (ABNORMAL) Comprehensive metabolic panel (04/27/2024 1:53 [...] LAB - BLOOD ORDERABLES Final Result LABORATORY [facility] Acute Care Lab [address] Lab (1st floor, no room number) [place] [address], [facility] documented in this encounter Visit Diagnoses Diagnosis Left-sided chest pain Mass of upper lobe of left lung documented in this encounter Administered Medications Inactive Administered Medications - up to 3 most recent administrations Medication Order MAR Action Action Date Dose Rate Site amLODIPine (NORVASC) tablet 10 mg 10 mg (0.259 mg/kg), Oral, ONCE, On Sat04/27/24 at 1510, For 1 dose $Given 04/27/2024 3:24 PM CDT 10 mg cloNIDine (CATAPRES) tablet 0.1 mg 0.1 mg (0.61080 mg/kg), Oral, ONCE, On Sat04/27/24 at 1510, For 1 dose $Given 04/27/2024 3:[address] Scan Flush Intravenous, 100 mL, ONCE, On Sat04/27/24 at 1725, For 1 dose, This entry is for use by Radiology to intermittently used as a flush in patients receiving a CT scan. $Given 04/27/2024 5:44 PM CDT 75 mLs iopamidol (ISOVUE-370) solution 500 mL 500 mL, Intravenous, ONCE, On Sat04/27/24 at 1725, For 1 dose $Given 04/27/2024 5:44 PM CDT 47 mLs labetalol (NORMODYNE) tablet 600 mg 600 mg (15.5 mg/kg), Oral, ONCE, On Sat04/27/24 at 1510, For 1 dose $Given 04/27/2024 3:37 PM CDT 600 mg documented in this encounter Active and Recently Administered Medications Times are shown in CDT. Scheduled Medication Order 04/25/2024 04/26/2024 04/27/2024 amLODIPine (NORVASC) tablet 10 mg (COMPLETED) 10 mg (0.259 mg/kg), Oral, ONCE, On Sat04/27/24 at 1510, For 1 dose 1524 ($Given - Provi vy: Zo Molina RN) cloNIDine (CATAPRES) tablet 0.1 mg (COMPLETED) 0.1 mg (0.68793 mg/kg), Oral, ONCE, On Sat04/27/24 at 1510, For 1 dose 1524 ($Given - Provi vy: Zo Molina RN) CT Scan Flush (COMPLETED) Intravenous, 100 mL, ONCE, On Sat04/27/24 at 1725, For 1 dose, This entry is for use by Radiology to intermittently used as a flush in patients receiving a CT scan. 1744 ($Given - Provi vy: INGRID Silva) iopamidol (ISOVUE-370) solution 500 mL (COMPLETED) 500 mL, Intravenous, ONCE, On Sat04/27/24 at 1725, For 1 dose 1744 ($Given - Provi vy: INGRID Silva) labetalol (NORMODYNE) tablet 600 mg (COMPLETED) 600 mg (15.5 mg/kg), Oral, ONCE, On Sat04/27/24 at 1510, For 1 dose 1537 ($Given - Provi vy: Ramona Abreu RN) documented in this encounter Care Teams Computer Engineering Technician Relationship Specialty Start Date End Date Tyrell Schneider [address] [place] [address] PCP - General Family Medicine 02/19/23 documented as of this encounter
--- OUTSIDE RECORDS SUMMARY | 2024-04-29 05:31 | XMS_ITS | Encounter Summary ---
Author Organization [facility] Address [address] [place] [address] Care Team Providers Care Health And Safety Inspector Name Role Phone Unavailable Primary Care Provider Unavailabl e Encounter Details Date Type Department Care Team (Late st Contact Info) Description 07/12/2015 Historical Ophthalmology RST OPH Eva Heard M.D. [address] [facility] [address] [place] [phone] Social History Tobacco Use Types Packs/Day Years Used Date Smoking Tobacco: Never Assessed Comments Unknown Sex and Gender Information Value Date Recorded Sex Assigned at Not on file Legal Sex Female 10:27 PM SALES AND SERVICE OFFICER Gender Identity Female 01/08/2022 2:47 PM SALES AND SERVICE OFFICER Sexual Orientation Straight 01/08/2022 2: 47 PM SALES AND SERVICE OFFICER documented as of this encounter Progress [...] intra-op intravitreal vancomycin and ceftazadime Seen with WEAVE ROOM SUPERVISOR today. 06/13/15: Paul negative. Well formed chamber, with normal IOP. Graft and sutures intact. Suture reaction most significant inferiorly, will continue pred forte TID and consider suture removal inferiorly at next visit. 06/16/15: Paul negative, formed chamber, suture reaction on all original graft sutures, no loose sutures, discussed with LJM, continue current drops and return next week when WEAVE ROOM SUPERVISOR here. Seen with SCB today. 06/20/15: Paul negative, formed chamber, suture reaction decreased, seen with WEAVE ROOM SUPERVISOR, M Parasol occluder placed in left lower puncum, expires 2018, LOT [id number] 06/27/15: Paul negative, increased edema over snowman [...] Monocular status CDM Reports - EYEGEN Id: [id number] Status: Fnl documented in this encounter Plan of Treatment Not on file documented as of this encounter Visit Diagnoses Not on filedocumented in this encounter
--- OUTSIDE RECORDS SUMMARY | 2024-04-29 05:31 | XMS_ITS | Encounter Summary ---
Author Organization [facility] Address [address] [place] [address] Care Team Providers Care Excellence Consultant Name Role Phone Unavailable Primary Care Provider Unavailabl e Encounter Details Date Type Department Care Team (Late st Contact Info) Description 01/23/2016 Historical Ophthalmology RST OPH Deann Colby M.D. [address] [place] [phone] Social History Tobacco Use Types Packs/Day Years Used Date Smoking Tobacco: Never Assessed Comments Unknown Sex and Gender Information Value Date Recorded Sex Assigned at Not on file Legal Sex Female 10:27 PM PULLING UNIT OPERATOR Gender Identity Female 01/08/2022 2:47 PM PULLING UNIT OPERATOR Sexual Orientation Straight 01/08/2022 2: 47 PM PULLING UNIT OPERATOR documented as of this encounter Progress [...] vision, worsening concerns. Must come in when CAKE TESTER is here (preferably as COS staff). Use [...] #4 Floaters, right eye CDM Reports - EYEOrgenesis Id: [id number] Status: Fnl documented in this encounter Plan of Treatment Not on file documented as of this encounter Visit Diagnoses Not on filedocumented in this encounter
--- OUTSIDE RECORDS SUMMARY | 2024-04-29 05:31 | XMS_ITS | Encounter Summary ---
Author Organization [facility] Address [address] [place] [address] Care Team Providers Care Glue Plant Operator Name Role Phone Unavailable Primary Care Provider Unavailabl e Encounter Details Date Type Department Care Team (Late st Contact Info) Description 08/24/2015 Historical Ophthalmology RST OPH Deann Colby M.D. [address] [place] [phone] Social History Tobacco Use Types Packs/Day Years Used Date Smoking Tobacco: Never Assessed Comments Unknown Sex and Gender Information Value Date Recorded Sex Assigned at Not on file Legal Sex Female 10:27 PM TRAINING PROJECT MANAGER Gender Identity Female 01/08/2022 2:47 PM TRAINING PROJECT MANAGER Sexual Orientation Straight 01/08/2022 2: 47 PM TRAINING PROJECT MANAGER documented as of this encounter Progress [...] intra-op intravitreal vancomycin and ceftazadime Seen with RIVET TOSSER today. 08/03/15: Corneal edema continues to improve. [...] vision, worsening concerns. Must come in when RIVET TOSSER is here. Use fluorescein strips only, not [...] #4 Floaters, right eye CDM Reports - EYEMowjow Id: [id number] Status: Fnl documented in this encounter Plan of Treatment Not on file documented as of this encounter Visit Diagnoses Not on filedocumented in this encounter
--- OUTSIDE RECORDS SUMMARY | 2024-04-29 05:32 | XMS_ITS | Encounter Summary ---
Author Organization [facility] Address [address] [place] [address] Care Team Providers Care Photographer'S Assistant Name Role Phone Unavailable Primary Care Provider Unavailabl e Encounter Details Date Type Department Care Team (Late st Contact Info) Description 05/09/2015 Historical Ophthalmology RST OPH Frantz Lee M.D. [address] [place] [phone] Social History Tobacco Use Types Packs/Day Years Used Date Smoking Tobacco: Never Assessed Comments Unknown Sex and Gender Information Value Date Recorded Sex Assigned at Not on file Legal Sex Female 10:27 PM CUTTER GAS Gender Identity Female 01/08/2022 2:47 PM CUTTER GAS Sexual Orientation Straight 01/08/2022 2: 47 PM CUTTER GAS documented as of this encounter Progress Notes [...] to the eye doctor this morning in [facility]. States that she lost the drop [...] left eye CDM Reports - EYEGEN Id: [id number] Status: Fnl documented in this encounter Plan of Treatment Not on file documented as of this encounter Visit Diagnoses Not on filedocumented in this encounter
--- OUTSIDE RECORDS SUMMARY | 2024-04-29 05:32 | XMS_ITS | Encounter Summary ---
Author Organization [facility] Address [address] [place] [address] Care Team Providers Care Registered Nurse Maternal Child Name Role Phone Unavailable Primary Care Provider Unavailabl e Encounter Details Date Type Department Care Team (Late st Contact Info) Description 06/11/2016 Historical Ophthalmology RST OPH Deann Colby M.D. [address] [place] [phone] Social History Tobacco Use Types Packs/Day Years Used Date Smoking Tobacco: Never Assessed Comments Unknown Sex and Gender Information Value Date Recorded Sex Assigned at Not on file Legal Sex Female 10:27 PM SLAG DUMPER Gender Identity Female 01/08/2022 2:47 PM SLAG DUMPER Sexual Orientation Straight 01/08/2022 2: 47 PM SLAG DUMPER documented as of this encounter Progress [...] today nearly 1 year after surgery with BPO SPECIALIST. Exam is stable with 1 loose suture. [...] right eye CDM Reports - EYEGEN Id: [id number] Status: Fnl documented in this encounter Plan of Treatment Not on file documented as of this encounter Visit Diagnoses Not on filedocumented in this encounter
--- OUTSIDE RECORDS SUMMARY | 2024-04-29 05:32 | XMS_ITS | Encounter Summary ---
Author Organization [facility] Address [address] [place] [address] Care Team Providers Care Milling Machinist Name Role Phone Unavailable Primary Care Provider Unavailabl e Encounter Details Date Type Department Care Team (Late st Contact Info) Description 03/12/2016 Historical Ophthalmology RST OPH Daniel Clements M.D. [address] [place] [phone] Social History Tobacco Use Types Packs/Day Years Used Date Smoking Tobacco: Never Assessed Comments Unknown Sex and Gender Information Value Date Recorded Sex Assigned at Not on file Legal Sex Female 10:27 PM CAREER PORTALS TEACHER Gender Identity Female 01/08/2022 2:47 PM CAREER PORTALS TEACHER Sexual Orientation Straight 01/08/2022 2: 47 PM CAREER PORTALS TEACHER documented as of this encounter Progress [...] vision, worsening concerns. Must come in when PLISSE MACHINE OPERATOR HELPER is here (preferably as COS staff). Use [...] right eye CDM Reports - EYEGEN Id: [id number] Status: Fnl documented in this encounter Plan of Treatment Not on file documented as of this encounter Visit Diagnoses Not on filedocumented in this encounter
--- OUTSIDE RECORDS SUMMARY | 2024-04-29 05:32 | XMS_ITS | Encounter Summary ---
Author Organization [facility] Address [address] [place] [address] Care Team Providers Care Engineering Inspector Name Role Phone Unavailable Primary Care Provider Unavailabl e Encounter Details Date Type Department Care Team (Late st Contact Info) Description 07/12/2016 Historical Ophthalmology RST OPH Deann Colby M.D. [address] [place] [phone] Social History Tobacco Use Types Packs/Day Years Used Date Smoking Tobacco: Never Assessed Comments Unknown Sex and Gender Information Value Date Recorded Sex Assigned at Not on file Legal Sex Female 10:27 PM QUALITY CONTROL ASSISTANT Gender Identity Female 01/08/2022 2:47 PM QUALITY CONTROL ASSISTANT Sexual Orientation Straight 01/08/2022 2: 47 PM QUALITY CONTROL ASSISTANT documented as of this encounter Progress Notes [...] today nearly 1 year after surgery with MERGERS AND ACQUISITIONS CONSULTANT. Exam is stable with 1 loose suture. IOP stable. Removed 11 sutures in total today. Continue prednisolone 1 x daily. Refresh tears 4x daily. RTC 4-6 weeks with refraction when Dr. Payton is in clinic. 12 Jul 2016: Seen with MERGERS AND ACQUISITIONS CONSULTANT. Exam stable with 1 loose suture. IOP [...] sent to Benigno Bishop, OD, FAAO at [facility] who also cares for Ms. Vanegas. Recommend he recheck IOP and visual acuity in 4 months. 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 Return to [place] PR[facility]. #2 Background diabetic retinopathy, right eye [...] right eye CDM Reports - EYEGEN Id: [id number] Status: Fnl documented in this encounter Plan of Treatment Not on file documented as of this encounter Visit Diagnoses Not on filedocumented in this encounter
--- OUTSIDE RECORDS SUMMARY | 2024-04-29 05:32 | XMS_ITS | Encounter Summary ---
Author Organization [facility] Address [address] [place] [address] Care Team Providers Care Second Chef Name Role Phone Unavailable Primary Care Provider Unavailabl e Encounter Details Date Type Department Care Team (Late st Contact Info) Description 04/17/2016 Historical Ophthalmology RST OPH Daniel Clements M.D. [address] [place] [phone] Social History Tobacco Use Types Packs/Day Years Used Date Smoking Tobacco: Never Assessed Comments Unknown Sex and Gender Information Value Date Recorded Sex Assigned at Not on file Legal Sex Female 10:27 PM TABLE OPERATOR Gender Identity Female 01/08/2022 2:47 PM TABLE OPERATOR Sexual Orientation Straight 01/08/2022 2: 47 PM TABLE OPERATOR documented as of this encounter Progress Notes * Daniel Clements M.D. - 04/17/2016 9:37 AM CST Eye General CHIEF COMPLAINT Left eye itching all night long; 2.5 weeks; tearing a little. HISTORY OF PRESENT ILLNESS [place] over left eye pupil. No eye pain. [...] right eye CDM Reports - EYEGEN Id: [id number] Status: Fnl documented in this encounter Plan of Treatment Not on file documented as of this encounter Visit Diagnoses Not on filedocumented in this encounter
--- OUTSIDE RECORDS SUMMARY | 2024-04-29 05:32 | XMS_ITS | Encounter Summary ---
Author Organization [facility] Address [address] [place] [address] Care Team Providers Care Treating Inspector Name Role Phone Unavailable Primary Care Provider Unavailabl e Encounter Details Date Type Department Care Team (Late st Contact Info) Description 05/10/2015 Historical Ophthalmology RST OPH Frantz Lee M.D. [address] [place] [phone] Social History Tobacco Use Types Packs/Day Years Used Date Smoking Tobacco: Never Assessed Comments Unknown Sex and Gender Information Value Date Recorded Sex Assigned at Not on file Legal Sex Female 10:27 PM PROFESSIONAL ENGINEER Gender Identity Female 01/08/2022 2:47 PM PROFESSIONAL ENGINEER Sexual Orientation Straight 01/08/2022 2: 47 PM PROFESSIONAL ENGINEER documented as of this encounter Progress [...] left eye CDM Reports - EYEGEN Id: [id number] Status: Fnl documented in this encounter Plan of Treatment Not on file documented as of this encounter Visit Diagnoses Not on filedocumented in this encounter
--- OUTSIDE RECORDS SUMMARY | 2024-04-29 05:32 | XMS_ITS | Encounter Summary ---
Author Organization [facility] Address [address] [place] [address] Care Team Providers Care Sewing Machinist Name Role Phone Unavailable Primary Care Provider Unavailabl e Encounter Details Date Type Department Care Team (Late st Contact Info) Description 05/14/2015 Historical Ophthalmology RST OPH Maricruz Garcia M.D. Social History Tobacco Use Types Packs/Day Years Used Date Smoking Tobacco: Never Assessed Comments Unknown Sex and Gender Information Value Date Recorded Sex Assigned at Not on file Legal Sex Female 10:27 PM PERIOPERATIVE EDUCATOR Gender Identity Female 01/08/2022 2:47 PM PERIOPERATIVE EDUCATOR Sexual Orientation Straight 01/08/2022 2: 47 PM PERIOPERATIVE EDUCATOR documented as of this encounter Progress Notes [...] washout 05/13/15 CDM Reports - EYEGEN Id: [id number] Status: Fnl documented in this encounter Plan of Treatment Not on file documented as of this encounter Visit Diagnoses Not on filedocumented in this encounter
--- OUTSIDE RECORDS SUMMARY | 2024-04-29 05:32 | XMS_ITS | Encounter Summary ---
Author Organization [facility] Address [address] [place] [address] Care Team Providers Care Adjunct Faculty Name Role Phone Unavailable Primary Care Provider Unavailabl e Encounter Details Date Type Department Care Team (Late st Contact Info) Description 05/20/2015 Historical Ophthalmology RST OPH Eva Heard M.D. [address] [facility] 200 [place] [phone] Social History Tobacco Use Types Packs/Day Years Used Date Smoking Tobacco: Never Assessed Comments Unknown Sex and Gender Information Value Date Recorded Sex Assigned at Not on file Legal Sex Female 10:27 PM CHOCOLATE COATER Gender Identity Female 01/08/2022 2:47 PM CHOCOLATE COATER Sexual Orientation Straight 01/08/2022 2: 47 PM CHOCOLATE COATER documented as of this encounter Progress Notes [...] Saturday. s/p intra-op subconj Dex Seen with INSURANCE RATER today Plan: Alternate every 2 hours with [...] right eye CDM Reports - EYEGEN Id: [id number] Status: Fnl documented in this encounter Plan of Treatment Not on file documented as of this encounter Visit Diagnoses Not on filedocumented in this encounter
--- OUTSIDE RECORDS SUMMARY | 2024-04-29 05:32 | XMS_ITS | Encounter Summary ---
Author Organization [facility] Address [address] [place] [address] Care Team Providers Care Museum Educator Name Role Phone Unavailable Primary Care Provider Unavailabl e Encounter Details Date Type Department Care Team (Late st Contact Info) Description 06/05/2016 Historical Ophthalmology RST OPH Deann Colby M.D. [address] [place] [phone] Social History Tobacco Use Types Packs/Day Years Used Date Smoking Tobacco: Never Assessed Comments Unknown Sex and Gender Information Value Date Recorded Sex Assigned at Not on file Legal Sex Female 10:27 PM TURBINE ENGINE ASSEMBLER Gender Identity Female 01/08/2022 2:47 PM TURBINE ENGINE ASSEMBLER Sexual Orientation Straight 01/08/2022 2: 47 PM TURBINE ENGINE ASSEMBLER documented as of this encounter Progress [...] in clinic. CDM Reports - EYEGEN Id: [id number] Status: Fnl documented in this encounter Plan of Treatment Not on file documented as of this encounter Visit Diagnoses Not on filedocumented in this encounter
--- OUTSIDE RECORDS SUMMARY | 2024-04-29 05:32 | XMS_ITS | Encounter Summary ---
Author Organization [facility] Address [address] [place] [address] Care Team Providers Care Weld Technician Name Role Phone Unavailable Primary Care Provider Unavailabl e Encounter Details Date Type Department Care Team (Late st Contact Info) Description 05/11/2015 Historical Ophthalmology RST OPH Frantz Lee M.D. [address] [place] [phone] Social History Tobacco Use Types Packs/Day Years Used Date Smoking Tobacco: Never Assessed Comments Unknown Sex and Gender Information Value Date Recorded Sex Assigned at Not on file Legal Sex Female 10:27 PM ENVIRONMENTAL SCIENCE PROGRAM DIRECTOR Gender Identity Female 01/08/2022 2:47 PM ENVIRONMENTAL SCIENCE PROGRAM DIRECTOR Sexual Orientation Straight 01/08/2022 2: 47 PM ENVIRONMENTAL SCIENCE PROGRAM DIRECTOR documented as of this encounter Progress [...] left eye CDM Reports - EYEGEN Id: [id number] Status: Fnl documented in this encounter Plan of Treatment Not on file documented as of this encounter Visit Diagnoses Not on filedocumented in this encounter
--- OUTSIDE RECORDS SUMMARY | 2024-04-29 05:32 | XMS_ITS | Encounter Summary ---
Author Organization [facility] Address [address] [place] [address] Care Team Providers Care Bee Producer Name Role Phone Unavailable Primary Care Provider Unavailabl e Encounter Details Date Type Department Care Team (Late st Contact Info) Description 06/13/2015 Historical Ophthalmology RST OPH Maricruz Garcia M.D. Social History Tobacco Use Types Packs/Day Years Used Date Smoking Tobacco: Never Assessed Comments Unknown Sex and Gender Information Value Date Recorded Sex Assigned at Not on file Legal Sex Female 10:27 PM CONSUMER AFFAIRS SPECIALIST Gender Identity Female 01/08/2022 2:47 PM CONSUMER AFFAIRS SPECIALIST Sexual Orientation Straight 01/08/2022 2: 47 PM CONSUMER AFFAIRS SPECIALIST documented as of this encounter Progress Notes * Maricruz Garcia M.D. - 06/13/2015 3:08 PM CDT Eye Postoperative MULTI-VISIT DOCUMENT This document contains multiple patient visits and is available for review in Document Viewer. CDM Reports - EYEPO Id: [id number] Status: Fnl documented in this encounter Plan of Treatment Not on file documented as of this encounter Visit Diagnoses Not on filedocumented in this encounter
--- OUTSIDE RECORDS SUMMARY | 2024-04-29 05:32 | XMS_ITS | CONTINUITY OF CARE DOCUMENT ---
Author Name User, QIE Address [address] [place] [address] Organization [facility] Address [address] [facility] [address] [place] [address] Phone [phone] Care Team Providers Care Order Packer Or Packager Name Role Phone User, QIE Unavailable Unavailable PROBLEMS Condition Status Date Provider Notes Organizati on CKD STAGE ESRD ON DIALYSIS GFR <15 active Shakira Jacobs ADMINISTRATIVE PROCESSOR ADMINISTRATIVE PROCESSOR, [address] [place] [address] [address] [facility] [place] VITAL SIGNS Date Observation Value Provider Organization blood pressure, diastolic 58 mm[Hg] Padmaja Das RN RN, [address] [place] [address] [address] [facility] [place] blood pressure, systolic 141 mm[Hg] Padmaja Das RN RN, [address] [place] [address] [address] [facility] [place] respiratory rate E&M 16 /min Padmaja Solares RN RN, [address] [place] [address] [address] [facility] [place] pulse rate 56 /min Padmaja Das RN RN, [address] [place] [address] [address] [facility] [place] blood pressure, site #1 Upper arm Padmaja Das RN RN, [address] [place] [address] [address] [facility] [place] blood pressure, diastolic, right arm 58 mm[Hg] Padmaja Das RN RN, [address] [place] [address] [address] [facility] [place] blood pressure, systolic, right arm 141 mm[Hg] Padmaja Das RN RN, [address] [place] [address] [address] [facility] [place] temperature E&M 98.0 [degF] Padmaja Das RN RN, [address] [facility] [address] [facility] Body Mass Index (Ratio) 19.46 kg/m2 Padmaja Das RN RN, [address] [facility] [address] [facility] height E&M 62 [in_i] Padmaja Das RN RN, [address] [facility] [address] [place] [address] [facility] [place] weight E&M 106 [lb_av] Padmaja Das RN RN, [address] [facility] [address] [place] [address] [facility] [place] ALLERGIES Allergy Name Onset Date Reaction Criticality Status Provider Organization DIGIFAB itching Low Criticality active Padmaja Das RN RN, [address] [facility] [address] [facility] GATIFLOXACIN nausea Low Criticality active Ginger Lundahl RDMS, RVT RDMS, RVT, [address] [facility] [address] [facility] PRAVASTATIN SODIUM myalgia Low Criticality active Ginger Lundahl RDMS, RVT RDMS, RVT, [address] [facility] [address] [facility] VITEYES OMEGA-3 itching Low Criticality active Ginger Lundahl RDMS, RVT RDMS, RVT, [address] [facility] [address] [facility] OAK rash Low Criticality active Ginger Lundahl RDMS, RVT RDMS, RVT, [address] [facility] [address] [facility] NIACIN itching Low Criticality active Ginger Lundahl RDMS, RVT RDMS, RVT, [address] [facility] [address] [facility] LOSARTAN POTASSIUM itching Low Criticality active Ginger Lundahl RDMS, RVT RDMS, RVT, [address] [facility] [address] [facility] LISINOPRIL rash Low Criticality active Ginger Lundahl RDMS, RVT RDMS, RVT, [address] [facility] [address] [facility] LIPITOR myalgia Low Criticality active Ginger Lundahl RDMS, RVT RDMS, RVT, [address] [place] [address] [facility] HYDROCHLOROTHIAZIDE had significant pruritic rash High Criticality active Ginger Lundahl RDMS, RVT RDMS, RVT, [address] [facility] [address] [facility] GEMFIBROZIL itching Low Criticality active Ginger Lundahl RDMS, RVT RDMS, RVT, [address] [facility] [address] [facility] BUCIO edema Low Criticality active Ginger Lundahl RDMS, RVT RDMS, RVT, [address] [facility] [address] [facility] CATS SOB SOB High Criticality active Ginger Lundahl RDMS, RVT RDMS, RVT, [address] [facility] [address] [facility] ATENOLOL rash Low Criticality active Ginger Lundahl RDMS, RVT RDMS, RVT, [address] [facility] [address] [facility] AMPICILLIN hives Low Criticality active Ginger Lundahl RDMS, RVT RDMS, RVT, [address] [facility] [address] [facility] RESULTS Date Observation Value Provider Organization Refer ence Range Interpretation Location blood glucose, finger stick 161 Padamja Das RN RN, [address] [facility] [address] [facility] HISTORY OF MEDICATION USE Medication Instructions Status Dates Provider Indications Com ments Organization triamcinolone acetonide 0.1% cream active Tamela Karl , [address] [facility] [address] [facility] sorbitol 70% solution TAKE 30 ML BY MOUTH ONCE A DAY NEEDED FOR CONSTIPATION* active Tamela Karl , [address] [facility] [address] [facility] [address] [facility] senna 8.6 mg tablet take 1-4 tablets by mouth once daily as needed to achieve 2-3 soft bowel movements daily active Tamela Barajas , [address] [facility] [address] [facility] [address] [facility] furosemide 40 mg tablet 1 tablet once a day active [address] [place] [address] [facility] labetalol 300 mg tablet as directed active [address] [facility] [address] [facility] moxifloxacin 0.5% drops as directed active [address] [place] [address] [facility] mupirocin 2% ointment as directed active [address] [facility] [address] [facility] pantoprazole 40 mg tablet,delayed release (DR/EC) 1 tablet twice a day active [address] [facility] [address] [facility] repaglinide 1 mg tablet 1 tablet three times a day active [address] [facility] [address] [facility] TYLENOL WITH CODEINE #3 300-30 MG ORAL TABLET 1-2 tablet every four to six hours as needed completed 05/19 - 04/[address] [facility] [address] [facility] Cipro 500 mg tablet Take 1 tablet by mouth once a day completed 05/19 - 04/[address] [facility] [address] [facility] sodium bicarbonate 650 mg tablet 1 tablet twice a day completed 02/22 - 04/[address] [facility] [address] [facility] labetalol 200 mg tablet 2 tablet twice a day completed 02/22 - 04/[address] [facility] [address] [facility] Levsin 0.125 mg tablet 1-2 tablet every four hours as needed completed 02/22 - 04/[address] [facility] [address] [facility] glipizide 10 mg tablet 2 tablet once a day active 02/22 Ginger Lundahl RDMS, RVT RDMS, RVT, [address] [place] [address] [address] [facility] [address] [facility] ADVAIR DISKUS 250-50 MCG/DOSE INHALATION AEROSOL POWDER BREATH ACTIVATED 1 puff every twelve hours completed 02/22 - 04/[address] [facility] [address] [facility] clonidine HCl 0.2 mg tablet 2 tablet every night active 02/22 Gingermichell Engelahl RDMS, RVT RDMS, RVT, [address] [place] [address] [address] [facility] [address] [facility] cetirizine 10 mg tablet 1 tablet once a day completed 02/22 - 04/[address] [facility] [address] [facility] calcitriol 0.25 mcg capsule 1 capsule once a day completed 02/22 - 04/[address] [facility] [address] [facility] bisacodyl 10 mg suppository once a day completed 02/22 - 04/[address] [facility] [address] [facility] aspirin 81 mg tablet,delayed release (DR/EC) 1 tablet once a day completed 02/22 - 04/[address] [facility] [address] [facility] amlodipine 10 mg tablet 1 tablet twice a day active 02/22 Ginger Engelahl RDMS, RVT RDMS, RVT, [address] [place] [address] [address] [facility] [address] [facility] albuterol sulfate 2.5 mg/3 mL (0.083 %) solution for nebulization Inhale 3 ml every four hours as needed active 02/22 Ginger Lundahl RDMS, RVT RDMS, RVT, [address] [place] [address] [address] [facility] [address] [facility] SOCIAL HISTORY Date Observation Value Provider Organization site on body for surgical procedure brachiobasilic fistula Mahogany Rm MD, MD, [address] [facility] [address] [facility] [place] social history reviewed E&M reviewed - no changes required Padmaja Das RN RN, [address] [facility] [address] [facility] [address] [facility] [place] INSURANCE PROVIDERS Payer name Policy type / Coverage type [facility] ID [employer] BLUE SHIELD - BCBS [id number] [id number] MEDICARE [id number] HISTORY OF PROCEDURES Procedure Date Procedure Name Provider Procedure Notes Status Organization SNOMED-CT: [id number] Current Medications Documented Mahogany Rm MD, MD, [address] [facility] [address] completed [facility] INJECTION FENTANYL CITRATE 100MCG Mahogany Rm MD, MD, [address] [place] [address] completed [facility] INJECTION MIDAZOLAM HCL PER 1 MG Mahogany Rm MD, MD, [address] [place] [address] completed [facility] Omnipaque-Visipaque Mahogany Rm MD, MD, [address] [facility] [address] 45ml completed [facility] Wire Mahogany Rm MD, MD, [address] [place] [address] completed [facility] Balloon Mahogany Rm MD, MD, [address] [place] [address] completed [facility] Sheath Mahogany Rm MD, MD, [address] [place] [address] completed [facility] INFUS NORMAL SALINE SOLUTION 250 CC Mahogany Rm MD, MD, [address] [place] [address] completed [facility] Angioplasty within including RS&I Mahogany Rm MD, MD, [address] [place] [address] completed [facility] Fistulagram, Dialysis Mahogany Rm MD, MD, [address] [place] [address] completed [facility] Antibiotic-No Order Mahogany Rm MD, MD, [address] [place] [address] completed [facility] Quailty Measures all negative Mahogany Rm MD, MD, [address] [place] [address] completed [facility] SNOMED-CT:HISTORICAL PNEUMOCOCCAL VACCINATION Mahogany Rm MD, MD, [address] [place] [address] completed [facility] SNOMED-CT:PATIENT ENCOUNTER Mahogany Rm MD, MD, [address] [facility] [address] completed [facility] [place]
--- OUTSIDE RECORDS SUMMARY | 2024-04-29 05:32 | XMS_ITS | Encounter Summary ---
Author Organization [facility] Address [address] [place] [address] Care Team Providers Care Patient Access Coordinator Name Role Phone Unavailable Primary Care Provider Unavailabl e Encounter Details Date Type Department Care Team (Late st Contact Info) Description 05/13/2015 Historical Ophthalmology [facility] Frantz Lee M.D. [address] [place] [phone] Social History Tobacco Use Types Packs/Day Years Used Date Smoking Tobacco: Never Assessed Comments Unknown Sex and Gender Information Value Date Recorded Sex Assigned at Not on file Legal Sex Female 10:27 PM COW TRIMMER Gender Identity Female 01/08/2022 2:47 PM COW TRIMMER Sexual Orientation Straight 01/08/2022 2: 47 PM COW TRIMMER documented as of this encounter Progress [...] follow with her PCP for diabetes management. TUBE CLOSING MACHINE OPERATOR ([id number]): I interviewed and examined the patient and [...] Corneal ulcer, left eye CDM Reports - [employer] Id: [id number] Status: Fnl documented in this encounter Plan of Treatment Not on file documented as of this encounter Visit Diagnoses Not on filedocumented in this encounter
--- OUTSIDE RECORDS SUMMARY | 2024-04-29 05:32 | XMS_ITS | Encounter Summary ---
Author Organization [facility] Address [address] [place] [address] Care Team Providers Care Assistant Media Planner Name Role Phone Unavailable Primary Care Provider Unavailabl e Encounter Details Date Type Department Care Team (Late st Contact Info) Description 05/24/2015 Historical Ophthalmology [facility] Eva Heard M.D. [address] [facility] [address] [place] [phone] Social History Tobacco Use Types Packs/Day Years Used Date Smoking Tobacco: Never Assessed Comments Unknown Sex and Gender Information Value Date Recorded Sex Assigned at Not on file Legal Sex Female 10:27 PM RUBBERIZING MECHANIC Gender Identity Female 01/08/2022 2:47 PM RUBBERIZING MECHANIC Sexual Orientation Straight 01/08/2022 2: 47 PM RUBBERIZING MECHANIC documented as of this encounter Progress Notes [...] Saturday. s/p intra-op subconj Dex Seen with DIRECTOR TELEVISION today Plan: Alternate every 2 hours with [...] diabetic retinopathy, right eye CDM Reports - [employer] Id: [id number] Status: Fnl documented in this encounter Plan of Treatment Not on file documented as of this encounter Visit Diagnoses Not on filedocumented in this encounter
--- OUTSIDE RECORDS SUMMARY | 2024-04-29 05:32 | XMS_ITS | Encounter Summary ---
Author Organization [facility] Address [address] [place] [address] Care Team Providers Care Online Content Coordinator Name Role Phone Unavailable Primary Care Provider Unavailabl e Encounter Details Date Type Department Care Team (Late st Contact Info) Description 05/12/2015 Historical Ophthalmology [facility] Frantz Lee M.D. [address] [place] [phone] Social History Tobacco Use Types Packs/Day Years Used Date Smoking Tobacco: Never Assessed Comments Unknown Sex and Gender Information Value Date Recorded Sex Assigned at Not on file Legal Sex Female 10:27 PM MANAGER DEPARTMENT Gender Identity Female 01/08/2022 2:47 PM MANAGER DEPARTMENT Sexual Orientation Straight 01/08/2022 2: 47 PM MANAGER DEPARTMENT documented as of this encounter Progress Notes [...] left eye CDM Reports - EYEGEN Id: [id number] Status: Fnl documented in this encounter Plan of Treatment Not on file documented as of this encounter Visit Diagnoses Not on filedocumented in this encounter
--- OUTSIDE RECORDS SUMMARY | 2024-04-29 05:32 | XMS_ITS | Encounter Summary ---
Author Organization [facility] Address [address] [place] [address] Care Team Providers Care Surveillance Manager Name Role Phone Unavailable Primary Care Provider Unavailabl e Encounter Details Date Type Department Care Team (Late st Contact Info) Description 06/13/2015 Historical Ophthalmology [facility] Maricruz Garcia M.D. Social History Tobacco Use Types Packs/Day Years Used Date Smoking Tobacco: Never Assessed Comments Unknown Sex and Gender Information Value Date Recorded Sex Assigned at Not on file Legal Sex Female 10:27 PM HELPDESK ADMINISTRATOR Gender Identity Female 01/08/2022 2:47 PM HELPDESK ADMINISTRATOR Sexual Orientation Straight 01/08/2022 2: 47 PM HELPDESK ADMINISTRATOR documented as of this encounter Progress [...] Monocular status CDM Reports - EYEGEN Id: [id number] Status: Fnl documented in this encounter Plan of Treatment Not on file documented as of this encounter Visit Diagnoses Not on filedocumented in this encounter
--- NOTE | 2024-04-29 06:26 | ED_ITS ---
HPI - General Adult General Chief complaint: Abdominal Pain <Luma Chatman MD - Last Filed: 05/08/24 23:53> Stated complaint: Abdominal pain <Luma Chatman MD - Last Filed: 05/08/24 23:53> Time Seen by Provider: 04/29/24 06:12 <Luma Chatman MD - Last Filed: 05/08/24 23:53> Source: patient and EMS <Luma Chatman MD - Last Filed: 05/08/24 23:53> Mode of arrival: EMS <Luma Chatman MD - Last Filed: 05/08/24 23:53> History of Present Illness HPI narrative: 78-year-old female with a history of end-stage renal disease on dialysis presents to the emergency department with diffuse abdominal pain. Nonfocal. Accompanied by nausea. No bloody stools, no bloody vomit. No fever. Reports poor appetite. Definitely missed dialysis on Saturday per her report but may have also medicine on Saturday. She typically goes Saturday but cannot recall if she went on Saturday or not but is quite confident she did not go on Saturday. Their office is not open for us to verify any of this yet. Reports that she typically takes the bus at 11:42 a.m. dialysis. No trauma or injury. Not much of a historian. Denies any falls, trauma or injury, no gynecological changes. Denies any dysuria. EMS reports that she complained only of the abdominal pain to them. She is not when herself and is not sure if her weight is up. She does not know how much fluid they typically takeoff of her at dialysis. She does have a prior but does not recall any other abdominal surgeries. We have limited records on her as she lived most of her life in [place]. I do see a previous hospitalization for pneumonia which is reviewed. Of note, she also has a recent diagnosis of lung cancer and near collapse of the left upper lobe. She had hypoxia at that visit. It does not sound like there was any mention of intra-abdominal concerns at that time however. These reports show that she had altered mental status at that hospitalization and was a poor historian initially as well but did improve after medical treatment. She is unable to list her home medications or significant details of her past medical history for me today I do review this in the records as best as able. She smells of cigarettes but denies smoking. Denies alcohol use. No signs of obvious trauma from EMS report. Reports that she lives with her 2 sons and a sister. ROS is notable for the abdominal pain only per her report. Otherwise she denies times 12 systems. <Luma Chatman MD - Last Filed: 05/08/24 23:53> Related Data Home medications: Home Medications ?Medication ?Instructions ?Recorded ?Confirmed albuterol sulfate 2.5 mg/3 mL 2.5 mg Q4H PRN dyspnea 11/28/22 (0.083 %) solution for nebulization aspirin 81 mg capsule 81 mg PO DAILY 11/28/22 04/04/24 clonidine HCl 0.1 mg tablet 0.1 mg PO DIRECTED 11/28/22 04/04/24 furosemide 40 mg tablet 40 mg PO QAM 11/28/22 04/04/24 labetalol 300 mg tablet 300 mg PO 3XD 11/28/22 04/04/24 oxycodone 5 mg tablet 5 mg PO BID PRN 11/28/22 04/04/24 repaglinide 1 mg tablet 1 mg PO 3XD 11/28/22 04/04/24 sennosides 8.6 mg tablet (senna) 8.6 - 34.4 mg PO DAILY PRN 11/28/22 04/04/24 sorbitol 70 % solution 30 ml PO DAILY PRN constipation 11/28/22 04/04/24 albuterol sulfate 90 mcg/actuation 2 puff inhalation BID 12/03/23 04/04/24 aerosol inhaler calcium acetate(phosphat bind) 667 1,334 mg PO 3XD 12/03/23 12/03/23 mg capsule dextran 70-hypromellose (PF) 0.1 1 drp ophthalmic (eye) DIRECTED 12/03/23 04/04/24 %-0.3 % eye drops in a dropperette (Bion Tears (PF)) ipratropium 0.5 mg-albuterol 3 mg 3 ml inhalation Q6H PRN dyspnea 12/03/23 04/04/24 (2.5 mg base)/3 mL nebulization soln nifedipine 90 mg tablet,extended 90 mg PO DAILY 10/22/24 10/22/24 release 24 hr pantoprazole 40 mg tablet,delayed 40 mg PO BID 12/03/23 12/03/23 release spironolactone 25 mg tablet 25 mg PO DAILY 12/03/23 04/04/24 umeclidinium 62.5 mcg/actuation 1 inh inhalation DAILY 12/03/23 12/03/23 blister powder for inhalation (Incruse Ellipta) azithromycin 500 mg tablet mg DAILY 04/04/24 cefdinir 300 mg capsule mg 04/04/24 cetirizine 04/04/24 erythromycin ointment 04/04/24 fluticasone 250 mcg-salmeterol 50 1 inh inhalation Q12H 04/04/24 04/04/24 mcg/dose blistr powdr for inhalation (Advair Diskus) nifedipine 60 mg tablet,extended mg PO 04/04/24 release 24 hr triamcinolone acetonide 0.1 % applic topical BID 04/04/24 topical cream <Luma Chatman MD - Last Filed: 05/08/24 23:53> Allergies/adverse reactions: Allergies Allergy/AdvReac Type Severity Reaction Status Date / Time atenolol Allergy Unknown Rash Verified 12/03/23 19:43 atorvastatin (From Lipitor) Allergy Unknown Verified 12/03/23 19:43 cat dander Allergy Unknown Difficulty Verified 12/03/23 19:43 Breathing dog dander Allergy Unknown Sneezing Verified 12/03/23 19:43 zarco Allergy Unknown Edema Verified 12/03/23 19:43 gemfibrozil Allergy Unknown Verified 12/03/23 19:43 hydrochlorothiazide Allergy Unknown Rash Verified 12/03/23 19:43 losartan Allergy Unknown Verified 12/03/23 19:43 niacin Allergy Unknown Verified 12/03/23 19:43 oak Allergy Unknown Rash Verified 12/03/23 19:43 pioglitazone Allergy Unknown Verified 12/03/23 19:43 ampicillin Allergy Hives Verified 12/03/23 19:43 dulaglutide (From Trulicity) AdvReac Unknown Vomiting Verified 12/03/23 19:43 pravastatin AdvReac Unknown Verified 12/03/23 19:43 simvastatin AdvReac Unknown Verified 12/03/23 19:43 gatifloxacin (From Tequin) AdvReac Nausea Verified 12/03/23 19:43 lisinopril AdvReac Cough Verified 12/03/23 19:43 <Luma Chatman MD - Last Filed: 05/08/24 23:53> [facility] Social History: Social History Smoking Status: Current some day smoker What tobacco products do you use: cigarettes Do you use any of these nicotine containing products: None Second hand tobacco smoke exposure: No How often do you have a drink containing alcohol: never AUDIT-C Alcohol total score: 0 Non-prescribed substance use: denies use <Luma Chatman MD - Last Filed: 05/08/24 23:53> Exam Const: Vital Signs, click to edit/add: Vital Signs - 24 hr 04/29/24 05:39 04/29/24 06:51 04/29/24 06:55 Temperature 98.1 F Pulse Rate Pulse Rate [Pulse Oximeter] 69 Respiratory Rate 16 Blood Pressure Blood Pressure [Ri ght Upper Arm] 193/76 H Pulse Oximetry 90 92 84 L Oxygen Delivery Me thod Room Air Room Air Oxygen Flow Rate 04/29/24 06:59 04/29/24 07:01 04/29/24 07:02 Temperature Pulse Rate 69 69 Pulse Rate [Pulse Oximeter] Respiratory Rate 14 11 L Blood Pressure 193/69 H 203/73 H Blood Pressure [Ri ght Upper Arm] Pulse Oximetry 92 95 97 Oxygen Delivery Me thod Room Air Nasal Cannula Nasal Cannula Oxygen Flow Rate 1 1 04/29/24 07:32 04/29/24 08:04 Temperature Pulse Rate 69 67 Pulse Rate [Pulse Oximeter] Respiratory Rate 9 L 17 Blood Pressure 192/83 H 189/67 H Blood Pressure [Ri ght Upper Arm] Pulse Oximetry 94 93 Oxygen Delivery Me thod Nasal Cannula Nasal Cannula Oxygen Flow Rate 1 1 <Luma Chatman MD - Last Filed: 05/08/24 23:53> Vital Signs, click to edit/add: Vital Signs - 24 hr 04/29/24 05:39 04/29/24 06:51 04/29/24 06:55 Temperature 98.1 F Pulse Rate Pulse Rate [Pulse Oximeter] 69 Respiratory Rate 16 Blood Pressure Blood Pressure [Ri ght Upper Arm] 193/76 H Pulse Oximetry 90 92 84 L Oxygen Delivery Me thod Room Air Room Air Oxygen Flow Rate 04/29/24 06:59 04/29/24 07:01 04/29/24 07:02 Temperature Pulse Rate 69 69 Pulse Rate [Pulse Oximeter] Respiratory Rate 14 11 L Blood Pressure 193/69 H 203/73 H Blood Pressure [Ri ght Upper Arm] Pulse Oximetry 92 95 97 Oxygen Delivery Me thod Room Air Nasal Cannula Nasal Cannula Oxygen Flow Rate 1 1 04/29/24 07:32 04/29/24 08:04 Temperature Pulse Rate 69 67 Pulse Rate [Pulse Oximeter] Respiratory Rate 9 L 17 Blood Pressure 192/83 H 189/67 H Blood Pressure [Ri ght Upper Arm] Pulse Oximetry 94 93 Oxygen Delivery Me thod Nasal Cannula Nasal Cannula Oxygen Flow Rate 1 1 <Alhaji Bills MD - Last Filed: 04/29/24 08:45> Documenting provider has reviewed patient's vital signs: yes <Luma Chatman MD - Last Filed: 05/08/24 23:53> Other: Confused but polite. Poor historian. Appears chronically ill but no diaphoresis or pallor. <Luma Chatman MD - Last Filed: 05/08/24 23:53> HENMT: Common normals: normocephalic, moist oral mucous membranes and oropharynx normal <Luma Chatman MD - Last Filed: 05/08/24 23:53> Head and scalp: normocephalic <Luma Chatman MD - Last Filed: 05/08/24 23:53> Throat: posterior oropharynx normal <Luma Chatman MD - Last Filed: 05/08/24 23:53> Eye: Common normals: conjunctivae normal <Luma Chatman MD - Last Filed: 05/08/24 23:53> General eye: normal appearance of both eyes <Luma Chatman MD - Last Filed: 05/08/24 23:53> Conjunctiva: conjunctiva(e) normal <Luma Chatman MD - Last Filed: 05/08/24 23:53> Neck & C-Spine: Common normals: full ROM and no lymphadenopathy <MD Vicente Thomas Last Filed: 05/08/24 23:53> General: normal visual inspection <MD Vicente Thomas Last Filed: 05/08/24 23:53> Chest: Common normals: inspection of chest normal <MD Vicente Thomas Last Filed: 05/08/24 23:53> Resp: Common normals: normal respiratory effort and no use of accessory muscl es <MD Vicente Thomas Last Filed: 05/08/24 23:53> Effort & inspection: able to speak in complete sentences <MD Vicente Thomas Last Filed: 05/08/24 23:53> Other: Decreased breath sounds at both bases but no obvious crackle. <MD Vicente Thomas Last Filed: 05/08/24 23:53> Cardio: Common normals: regular rate, regular rhythm, S1 normal heart sound and S2 normal heart sound <MD Vicente Thomas Last Filed: 05/08/24 23:53> Rate: regular rate <MD Vicente Thomas Last Filed: 05/08/24 23:53> Rhythm: regular rhythm <MD Vicente Thomas Last Filed: 05/08/24 23:53> Heart sounds: S1 normal and S2 normal <MD Vicente Thomas Last Filed: 05/08/24 23:53> GI: Other: Abdomen seems very distended, tympanitic. Bowel sounds sound hyperactive. Seems more like gaseous distension the necessarily fluid but there is certainly some fluid as well. No obvious mass but difficult to palpate the organs due to the distended abdomen. Diffusely tender, nonfocal on my exam. <MD Vicente Thomas Last Filed: 05/08/24 23:53> : Common normals: no CVA tenderness <MD Vicente Thomas Last Filed: 05/08/24 23:53> Bladder/kidney exam: no CVA tenderness <MD Vicente Thomas Last Filed: 05/08/24 23:53> Back & Pelvis: Common normals: no CVA tenderness <Luma Chatman MD - Last Filed: 05/08/24 23:53> Extremity: Common normals: normal capillary refill <Luma Chatman MD - Last Filed: 05/08/24 23:53> Neuro: Other: Oriented to person and place but not time today. Poor recall of medical detai ls. Can move her extremities in rollover without difficulty on exam. No facial droop. Speech is normal in production but limited in content. No obvious slurring. No difficulty with fine motor control of upper extremities. <Luma Chatman MD - Last Filed: 05/08/24 23:53> Psych: Common normals: speech normal <Luma Chatman MD - Last Filed: 05/08/24 23:53> Activity/motor behavior: appropriate eye contact <Luma Chatman MD - Last Filed: 05/08/24 23:53> Speech: normal speech <Luma Chatman MD - Last Filed: 05/08/24 23:53> Course Course ED Course: 78-year-old female with signs of encephalopathy from acute medical illness in the setting of abdominal pain. Distended abdomen is suspicious for bowel obstruction, ascites, metabolic derangement secondary to hyperkalemia, fluid overload, complications of end-stage renal disease, possibly infection, amongst others. No initial signs of hypotension but this would likely be masked by her kidney disease. Have been told that lactate is not available but will try to order. CBC, convert metabolic panel, lipase level CT without contrast. Will give p.o. Zofran and oral oxycodone for symptom control while we await findings. If patient requires hospitalization, she will need transfer due to the need for urgent dialysis today. If we can get her symptoms under control and there are no signs of any major red flags, hopefully we can get her to dialysis as scheduled today at 11:40 a.m.. Been much difficulty getting an IV due to her poor venous status. Eventually we were able to get some blood work and get the patient to CT but there was nearly a 2+ hour delay for this. Was also quite busy when she came in we had about a 45 minute delay before I could assess her. Will hand over care to incoming day shift partner. Anticipating transfer based on clinical condition, awaiting diagnosis. <Luma Chatman MD - Last Filed: 05/08/24 23:53> Vital Signs Vital signs: Initial Vital Signs Temperature 98.1 F 04/29/24 05:39 Temperature Source Temporal Artery Scan 04/29/24 05:39 Pulse Rate 69 04/29/24 05:39 Respiratory Rate 16 04/29/24 05:39 Blood Pressure 193/76 H 04/29/24 05:39 Blood Pressure Mean 115 H 04/29/24 05:39 Blood Pressure Position Sitting 04/29/24 05:39 Pulse Oximetry 90 04/29/24 05:39 Oxygen Delivery Method Room Air 04/29/24 05:39 Vital Signs Temperature 98.1 F 04/29/24 05:39 Pulse Rate 69 04/29/24 05:39 Respiratory Rate 16 04/29/24 05:39 Blood Pressure 193/76 H 04/29/24 05:39 Pulse Oximetry 90 04/29/24 05:39 Oxygen Delivery Method Room Air 04/29/24 05:39 Temperature 97.1 F L 04/29/24 10:03 Pulse Rate 63 04/29/24 10:03 Respiratory Rate 11 L 04/29/24 10:03 Blood Pressure 177/65 H 04/29/24 10:03 Pulse Oximetry 95 04/29/24 10:03 Oxygen Delivery Method Nasal Cannula 04/29/24 10:03 Oxygen Flow Rate 1 04/29/24 10:03 <Luma Chatman MD - Last Filed: 05/08/24 23:53> Initial Vital Signs Temperature 98.1 F 04/29/24 05:39 Temperature Source Temporal Artery Scan 04/29/24 05:39 Pulse Rate 69 04/29/24 05:39 Respiratory Rate 16 04/29/24 05:39 Blood Pressure 193/76 H 04/29/24 05:39 Blood Pressure Mean 115 H 04/29/24 05:39 Blood Pressure Position Sitting 04/29/24 05:39 Pulse Oximetry 90 04/29/24 05:39 Oxygen Delivery Method Room Air 04/29/24 05:39 Vital Signs Temperature 98.1 F 04/29/24 05:39 Pulse Rate 69 04/29/24 05:39 Respiratory Rate 16 04/29/24 05:39 Blood Pressure 193/76 H 04/29/24 05:39 Pulse Oximetry 90 04/29/24 05:39 Oxygen Delivery Method Room Air 04/29/24 05:39 Temperature 97.1 F L 04/29/24 10:03 Pulse Rate 63 04/29/24 10:03 Respiratory Rate 11 L 04/29/24 10:03 Blood Pressure 177/65 H 04/29/24 10:03 Pulse Oximetry 95 04/29/24 10:03 Oxygen Delivery Method Nasal Cannula 04/29/24 10:03 Oxygen Flow Rate 1 04/29/24 10:03 <Alhaji Bills MD - Last Filed: 04/29/24 08:45> Medications Administered Medications: Discontinued Medications Generic Name Dose Route Start Last Admin Trade Name Freq PRN Reason Stop Dose Admin Bumetanide 2 mg 04/29/24 08:42 04/29/24 09:13 Bumetanide 0.25 Mg/Ml Inj IV 04/29/24 08:43 2 mg ONCE ONE Administration Hydromorphone HCl 0.2 - 0.5 mg 04/29/24 07:55 04/29/24 10:10 Hydromorphone 0.5 Mg/0.5 Ml Inj IVP 0.3 mg Q1H PRN Administration Pain Ertapenem 1 gm/ Sodium 100 mls @ 200 mls/hr 04/29/24 08:15 04/29/24 09:16 Chloride IVPB Infused Q24H ROXI Infusion IV Miscellaneous Supplies 1 each 04/29/24 08:05 04/29/24 09:03 Pharmacist Consult Not Given Q24H [facility] Protocol Ondansetron HCl 4 mg 04/29/24 06:23 04/29/24 06:33 Ondansetron Odt 4 Mg Tab PO 04/29/24 06:24 4 mg ONCE ONE Administration Oxycodone HCl 5 mg 04/29/24 06:23 04/29/24 06:51 Oxycodone 5 Mg Tablet PO 04/29/24 06:24 5 mg ONCE ONE Administration <Luma Chatman MD - Last Filed: 05/08/24 23:53> Discontinued Medications Generic Name Dose Route Start Last Admin Trade Name Freq PRN Reason Stop Dose Admin Bumetanide 2 mg 04/29/24 08:42 04/29/24 09:13 Bumetanide 0.25 Mg/Ml Inj IV 04/29/24 08:43 2 mg ONCE ONE Administration Hydromorphone HCl 0.2 - 0.5 mg 04/29/24 07:55 04/29/24 10:10 Hydromorphone 0.5 Mg/0.5 Ml Inj IVP 0.3 mg Q1H PRN Administration Pain Ertapenem 1 gm/ Sodium 100 mls @ 200 mls/hr 04/29/24 08:15 04/29/24 09:16 Chloride IVPB Infused Q24H ROXI Infusion IV Miscellaneous Supplies 1 each 04/29/24 08:05 04/29/24 09:03 Pharmacist Consult MC Not Given Q24H ROXI Protocol Ondansetron HCl 4 mg 04/29/24 06:23 04/29/24 06:33 Ondansetron Odt 4 Mg Tab PO 04/29/24 06:24 4 mg ONCE ONE Administration Oxycodone HCl 5 mg 04/29/24 06:23 04/29/24 06:51 Oxycodone 5 Mg Tablet PO 04/29/24 06:24 5 mg ONCE ONE Administration <Alhaji Bills MD - Last Filed: 04/29/24 08:45> Medical Decision Making MDM Narrative Medical decision making narrative: Addendum 8:11 a.m.: Please see Dr. Cooley's note. The patient has a chest x-ray that shows new increased left lung collapse pull be postobstructive in setting of cancer. She had some lung collapse the upper lung on a prior hospitalization for pneumonia. There is increased stool burden on her CT scan she has got no obvious obstruction, she does have an elevated white count, on the setting of her history, bacterial peritonitis would be a possibility. Patient will need IV antibiotics, dialysis, discussion of hospice versus palliative care, probable oncology consult. Patient be transferred back to tertiary care per her wishes and at this time her O2 sat has been up and down in the mid 80s to upper 80s she has been put on oxygen. He does have the lung collapse as mention. Has had recent pneumonia. Addendum 8:[address] Kim hospitalist at [facility] who kindly accepted the patient in transfer. We will give Bumex 2 mg IV. I relayed her story in detail as well as her laboratory results and vital signs. Patient likely needs oncology consult as well as possibly GI or pulmonary. [facility] will be an excellent place for the patient to determine her status and treatment plan. As mention she needs dialysis today. Patient be given ertapenem as described. Pharmacy has checked the dose. Transfer sheets completed. Patient is stable for transfer. <Alhaji Bills MD - Last Filed: 04/29/24 08:45> Lab Data Labs: Lab Results 04/29/24 04/29/24 Range/Units 06:23 06:40 WBC 24.08 H (4.50-11.00) K/uL RBC 2.92 L (4.00-5.20) m/uL Hgb 8.4 L (12.0-16.0) gm/dL Hct 26.9 L (33.0-51.0) % MCV 92 (80-100) fL MCH 29 (26-34) pg MCHC 31 L (32-36) gm/dL RDW Coeff of Margaret 16.5 H (11.5-15.5) % Plt Count 508 H (140-440) K/uL Neut % (Auto) 94.8 H (42.0-72.0) % Lymph % (Auto) 1.1 L (20-44) % [place] % (Auto) 3.8 (0.0-11.0) % Eos % (Auto) 0.0 (0.0-7.0) % Baso % (Auto) 0.0 (0.0-3.0) % Neut # (Auto) 22.80 H (1.7-7.0) K/uL Lymph # (Auto) 0.30 L (0.90-2.90) K/uL [place] # (Auto) 0.90 (0.00-0.90) K/UL Eos # (Auto) 0.00 (0.00-0.50) K/uL Baso # (Auto) 0.00 (0.00-0.30) K/uL Abs Immat Gran (auto) 0.10 (0.00-0.30) K/uL Imm/Tot Granulo (auto) 0.3 % Sodium 129 L (135-149) mmol/L Potassium 5.7 H (3.6-5.1) mmol/L Chloride 91 L (96-114) mmol/L Carbon Dioxide 17 L (20-32) mmol/L Anion Gap 21 H (7-15) mEq/L BUN 93 H (7-30) mg/dL Creatinine 8.6 H (0.5-1.5) mg/dL Estimated Creat Clear 3.39 Estimated GFR 4 ml/min Glucose 217 H (60-115) mg/dL Lactate 1.5 (0.5-1.9) mmol/L Calcium 9.2 (8.4-10.6) mg/dL Total Bilirubin 1.8 H (0.1-1.5) mg/dL AST 22 (12-35) U/L ALT 17 (4-35) U/L Alkaline Phosphatase 159 H (40-150) U/L C-Reactive Protein 8.7 H (0.5-1.0) mg/dL Total Protein 7.8 (6.0-8.3) g/dL Albumin 4.0 (3.3-5.0) g/dL Lipase 258 (23-300) U/L SARS-CoV-2 (PCR) Negative SARS-CoV-2 (Negative) Influenza Type A (PCR) Negative PCR FLU A (Negative) Influenza Type B (PCR) Negative PCR FLU B (Negative) RSV (PCR) Negative PCR RSV (Negative) <Luma Chatman MD - Last Filed: 05/08/24 23:53> Lab Results 04/29/24 04/29/24 Range/Units 06:23 06:40 WBC 24.08 H (4.50-11.00) K/uL RBC 2.92 L (4.00-5.20) m/uL Hgb 8.4 L (12.0-16.0) gm/dL Hct 26.9 L (33.0-51.0) % MCV 92 (80-100) fL MCH 29 (26-34) pg MCHC 31 L (32-36) gm/dL RDW Coeff of Margaret 16.5 H (11.5-15.5) % Plt Count 508 H (140-440) K/uL Neut % (Auto) 94.8 H (42.0-72.0) % Lymph % (Auto) 1.1 L (20-44) % [place] % (Auto) 3.8 (0.0-11.0) % Eos % (Auto) 0.0 (0.0-7.0) % Baso % (Auto) 0.0 (0.0-3.0) % Neut # (Auto) 22.80 H (1.7-7.0) K/uL Lymph # (Auto) 0.30 L (0.90-2.90) K/uL [place] # (Auto) 0.90 (0.00-0.90) K/UL Eos # (Auto) 0.00 (0.00-0.50) K/uL Baso # (Auto) 0.00 (0.00-0.30) K/uL Abs Immat Gran (auto) 0.10 (0.00-0.30) K/uL Imm/Tot Granulo (auto) 0.3 % Sodium 129 L (135-149) mmol/L Potassium 5.7 H (3.6-5.1) mmol/L Chloride 91 L (96-114) mmol/L Carbon Dioxide 17 L (20-32) mmol/L Anion Gap 21 H (7-15) mEq/L BUN 93 H (7-30) mg/dL Creatinine 8.6 H (0.5-1.5) mg/dL Estimated Creat Clear 3.39 Estimated GFR 4 ml/min Glucose 217 H (60-115) mg/dL Lactate 1.5 (0.5-1.9) mmol/L Calcium 9.2 (8.4-10.6) mg/dL Total Bilirubin 1.8 H (0.1-1.5) mg/dL AST 22 (12-35) U/L ALT 17 (4-35) U/L Alkaline Phosphatase 159 H (40-150) U/L C-Reactive Protein 8.7 H (0.5-1.0) mg/dL Total Protein 7.8 (6.0-8.3) g/dL Albumin 4.0 (3.3-5.0) g/dL Lipase 258 (23-300) U/L SARS-CoV-2 (PCR) Negative SARS-CoV-2 (Negative) Influenza Type A (PCR) Negative PCR FLU A (Negative) Influenza Type B (PCR) Negative PCR FLU B (Negative) RSV (PCR) Negative PCR RSV (Negative) <Alhaji Bills MD - Last Filed: 04/29/24 08:45> Imaging Data CT scan - abdomen: Radiologist's impression: IMPRESSION: 1. Very large stool burden. No discrete transition or obstruction identified. 2. Since the previous exam there has been a significant reduction in visceral and subcutaneous fat consistent with weight loss. 3. Limited visceral evaluation without contrast, particularly given the very low abdominopelvic fat. 4. Very small left pleural effusion. Diffuse centrilobular lung nodules are similar to prior. 5. Hyperdense excreted contrast in the gallbladder, renal collecting systems, and urinary bladder. No recent comparison CT or MR is available. Please note that all CT scans at this facility use dose modulation, iterative reconstruction, and/or weight-based dosing when appropriate to reduce radiation dose to as low as reasonably achievable. Dictated by Beata Troncoso MD @ 04/29/2024 8:02:47 AM <Luma Chatman MD - Last Filed: 05/08/24 23:53> ECG Data Attestation: I personally reviewed and interpreted this ECG as follows: <Luma Chatman MD - Last Filed: 05/08/24 23:53> Prior ECG tracings: available for review <Luma Chatman MD - Last Filed: 05/08/24 23:53> Interpretation: Comparison EKG 03/31/2024. Sinus rhythm with a rate of 68. Normal intervals and axis. The real changes that the T-waves look a little more peaked compared to last EKG but were slightly peaked at that time as well. Otherwise no significant ST or other T-wave abnormalities. <Luma Chatman MD - Last Filed: 05/08/24 23:53> Discharge Plan Discharge Clinical Impression: Abdominal pain, Chronic renal failure, Lung cancer <Luma Chatman MD - Last Filed: 05/08/24 23:53> Patient Disposition: Xfer Other <Luma Chatman MD - Last Filed: 05/08/24 23:53> Prescriptions: No Action furosemide 40 mg tablet 40 mg PO QAM sennosides [senna] 8.6 mg tablet 8.6 - 34.4 mg PO DAILY PRN clonidine HCl 0.1 mg tablet 0.1 mg PO DIRECTED Rx Instructions: TAKE 2 TABLETS BY MOUTH IN THE MORNING, AND TAKE 3 TABLETS BY MOUTH AT BEDTIME albuterol sulfate 2.5 mg /3 mL (0.083 %) solution for nebulization 2.5 mg Q4H PRN (Reason: dyspnea) labetalol 300 mg tablet 300 mg PO 3XD sorbitol 70 % solution 30 ml PO DAILY PRN (Reason: constipation) repaglinide 1 mg tablet 1 mg PO 3XD oxycodone 5 mg tablet 5 mg PO BID PRN aspirin 81 mg capsule 81 mg PO DAILY albuterol sulfate 90 mcg/actuation HFA aerosol inhaler 2 puff inhalation BID calcium acetate(phosphat bind) 667 mg capsule 1,334 mg PO 3XD Bion Tears (PF) 0.1-0.3 % dropperette 1 drp ophthalmic (eye) DIRECTED ipratropium-albuterol 0.5 mg-3 mg(2.5 mg base)/3 mL solution for nebulization 3 ml INHALATION Q6H PRN (Reason: dyspnea) spironolactone 25 mg tablet 25 mg PO DAILY nifedipine 90 mg tablet extended release 24hr 90 mg PO DAILY pantoprazole 40 mg tablet,delayed release (DR/EC) 40 mg PO BID Incruse Ellipta 62.5 mcg/actuation blister with device 1 inh INHALATION DAILY triamcinolone acetonide 0.1 % cream topical BID nifedipine 60 mg tablet extended release 24hr PO cefdinir 300 mg capsule Patient Comments: [NO ORIGINAL SIG] azithromycin 500 mg tablet DAILY fluticasone propion-salmeterol [Advair Diskus] 250-50 mcg/dose blister with device 1 inh inhalation Q12H cetirizine erythromycin ointment <Luma Chatman MD - Last Filed: 05/08/24 23:53> Stand Alone Forms: [facility] Info Instructions <Luma Chatman MD - Last Filed: 05/08/24 23:53>
--- OUTSIDE RECORDS SUMMARY | 2024-04-29 06:30 | XMS_ITS | Encounter Summary ---
Author Organization [facility] Address [address] [place] [address] Care Team Providers Care Instrument Tech Name Role Phone Unavailable Primary Care Provider Unavailabl e Encounter Details Date Type Department Care Team (Late st Contact Info) Description 11/23/2015 Historical Ophthalmology RST OPH Deann Colby M.D. [address] [place] [phone] Social History Tobacco Use Types Packs/Day Years Used Date Smoking Tobacco: Never Assessed Comments Unknown Sex and Gender Information Value Date Recorded Sex Assigned at Not on file Legal Sex Female 10:27 PM AOC DIRECTOR COMBAT PLANS OFFICER Gender Identity Female 01/08/2022 2:47 PM AOC DIRECTOR COMBAT PLANS OFFICER Sexual Orientation Straight 01/08/2022 2: 47 PM AOC DIRECTOR COMBAT PLANS OFFICER documented as of this encounter Progress [...] intra-op intravitreal vancomycin and ceftazadime Discussed with CONFIDENTIAL INVESTIGATOR today. 23 Nov 2015: Corneal edema continues [...] vision, worsening concerns. Must come in when CONFIDENTIAL INVESTIGATOR is here (preferably as COS staff). Use [...] right eye CDM Reports - EYEGEN Id: [id number] Status: Fnl documented in this encounter Plan of Treatment Not on file documented as of this encounter Visit Diagnoses Not on filedocumented in this encounter
--- OUTSIDE RECORDS SUMMARY | 2024-04-29 06:30 | XMS_ITS | Encounter Summary ---
Author Organization [facility] Address [address] [place] [address] Care Team Providers Care Digging Machine Operator Name Role Phone Tyrell Schneider Primary Care Provider [phone] Encounter Details Date Type Department Care Team [...] on filedocumented in this encounter Care Teams Digging Machine Operator Relationship Specialty Start Date End Date Tyrell Schneider [address] [place] [address] PCP - General Family Medicine 02/19/23 documented as of this encounter
--- OUTSIDE RECORDS SUMMARY | 2024-04-29 06:30 | XMS_ITS | Encounter Summary ---
Author Organization [facility] Address [address] [place] [address] Care Team Providers Care Engineering Department Chair Name Role Phone Unavailable Primary Care Provider Unavailabl e Encounter Details Date Type Department Care Team (Late st Contact Info) Description 01/23/2016 Historical Ophthalmology RST OPH Deann Colby M.D. [address] [place] [phone] Social History Tobacco Use Types Packs/Day Years Used Date Smoking Tobacco: Never Assessed Comments Unknown Sex and Gender Information Value Date Recorded Sex Assigned at Not on file Legal Sex Female 10:27 PM PLANT OPERATOR Gender Identity Female 01/08/2022 2:47 PM PLANT OPERATOR Sexual Orientation Straight 01/08/2022 2: 47 PM PLANT OPERATOR documented as of this encounter Progress [...] vision, worsening concerns. Must come in when NEEDLE PUNCH OPERATOR is here (preferably as COS staff). Use [...] #4 Floaters, right eye CDM Reports - [facility]Ad[facility] [employer] Id: [id number] Status: Fnl documented in this encounter Plan of Treatment Not on file documented as of this encounter Visit Diagnoses Not on filedocumented in this encounter
--- OUTSIDE RECORDS SUMMARY | 2024-04-29 06:30 | XMS_ITS | Encounter Summary ---
Author Organization [facility] Address [address] [place] [address] Care Team Providers Care Lacquer Maker Name Role Phone Unavailable Primary Care Provider Unavailabl e Encounter Details Date Type Department Care Team (Late st Contact Info) Description 07/04/2015 Historical Ophthalmology RST OPH Eva Herad M.D. [address] [facility] 200 [place] [phone] Social History Tobacco Use Types Packs/Day Years Used Date Smoking Tobacco: Never Assessed Comments Unknown Sex and Gender Information Value Date Recorded Sex Assigned at Not on file Legal Sex Female 10:27 PM LAB PACK CHEMIST Gender Identity Female 01/08/2022 2:47 PM LAB PACK CHEMIST Sexual Orientation Straight 01/08/2022 2: 47 PM LAB PACK CHEMIST documented as of this encounter Progress Notes * Eva Heard M.D. - 07/04/2015 9:39 AM CDT Eye Postoperative MULTI-VISIT DOCUMENT This document contains multiple patient visits and is available for review in Document Viewer. CDM Reports - EYEPO Id: [id number] Status: Fnl documented in this encounter Plan of Treatment Not on file documented as of this encounter Visit Diagnoses Not on filedocumented in this encounter
--- OUTSIDE RECORDS SUMMARY | 2024-04-29 06:30 | XMS_ITS | Encounter Summary ---
Author Organization [facility] Address [address] [place] [address] Care Team Providers Care Negative Spotter Name Role Phone Unavailable Primary Care Provider Unavailabl e Encounter Details Date Type Department Care Team (Late st Contact Info) Description 07/18/2015 Historical Ophthalmology RST OPH Eva Heard M.D. [address] [facility] 200 [place] [phone] Social History Tobacco Use Types Packs/Day Years Used Date Smoking Tobacco: Never Assessed Comments Unknown Sex and Gender Information Value Date Recorded Sex Assigned at Not on file Legal Sex Female 10:27 PM SENIOR MARKETING COORDINATOR Gender Identity Female 01/08/2022 2:47 PM SENIOR MARKETING COORDINATOR Sexual Orientation Straight 01/08/2022 2: 47 PM SENIOR MARKETING COORDINATOR documented as of this encounter Progress [...] intra-op intravitreal vancomycin and ceftazadime Seen with TYPE COPYIST today. 06/13/15: Paul negative. Well formed chamber, with normal IOP. Graft and sutures intact. Suture reaction most significant inferiorly, will continue pred forte TID and consider suture removal inferiorly at next visit. 06/16/15: Paul negative, formed chamber, suture reaction on all original graft sutures, no loose sutures, discussed with LJM, continue current drops and return next week when TYPE COPYIST here. Seen with SCB today. 06/20/15: Paul negative, formed chamber, suture reaction decreased, seen with TYPE COPYIST, M Parasol occluder placed in left lower puncu, expires 2018, LOT [id number] 06/27/15: Paul negative, increased edema over snowman [...] Monocular status CDM Reports - EYEGEN Id: [id number] Status: Fnl documented in this encounter Plan of Treatment Not on file documented as of this encounter Visit Diagnoses Not on filedocumented in this encounter
--- OUTSIDE RECORDS SUMMARY | 2024-04-29 06:30 | XMS_ITS | Clinical Summary ---
Author Organization [facility] Address [address] [place] [address] Care Team Providers Care Director Compliance Name Role Phone Tyrell Schneider Bulmaro Primary Care Provider [phone] Allergies Active Allergy Reactions Criticality Noted Date [...] 01/09/2010 itching Niacin Rash,Itching Low 05/13/2006 itch [place] Rash Low 05/16/2010 Oxycodone Nausea and [...] daily 09/26/19 23 Active neomycin-polymyx in-dexAMETHasone (MAXITROL) 3.5-12969-8.[address] 0.25 inches Into the [...] PM CDT - 04/27/2024 8:51 PM CDT [facility] Emergency [facility] [address] [place] [address] Jason Tapia MD Left-sided chest pain; Mass of upper lobe of left lung Discharge Disposition: Home or Self Care 04/27/[address] [facility] [address] [place] [phone] Emanuel Lozano MD 04/27/2024 Travel from Last [...] exists MEDICARE ANNUAL WELLNESS VISIT 11/21/2024 11/22/2023 DIABETES SCREENING 04/28/2027 04/27/2024, 0 02/21/2023, 02/21/2023, Additional history exists DEXA 04/13/2031 04/12/2016 [...] CDT RENAL PANEL Routine 12/18/2022 8:45 AM BURR MACHINE OPERATOR OCCULT BLOOD STOOL STAT 12/12/2022 11 :03 PM CDT from Last 3 Months or Most Recently Relevant to Health Maintenance Results * (ABNORMAL) Troponin T, High Sensitivity (04/27/2024 6:12 PM CDT) Only the most recent of3 resultswithin the time period is included. Pathologist [facility] Troponin T, High Sensitivity 137(HH) <=14 ng/L [...] MD LAB - BLOOD ORDERABLES Final Result [facility] Acute Care Lab [address] [facility] Lab (1st floor, no room number) [place] [address] * CT Chest Pulmonary Embolism w Contrast [...] CT CHEST PULMONARY EMBOLISM W CONTRAST LOCATION: [facility] DATE: 04/27/2024 INDICATION: Chest pain, elevated d-dimer [...] CT CHEST PULMONARY EMBOLISM W CONTRAST LOCATION: [facility] DATE: 04/27/2024 INDICATION: Chest pain, elevated d-dimer [...] 1.8 cm in short axis (series 6 [id number]) and left prevascular node measuring 1.2 cm [...] US LOWER EXTREMITY VENOUS DUPLEX RIGHT LOCATION: [facility] DATE: 04/27/2024 INDICATION: RLQ pain, no trauma [...] US LOWER EXTREMITY VENOUS DUPLEX RIGHT LOCATION: [facility] DATE: 04/27/2024 INDICATION: RLQ pain, no trauma [...] BPM MUSE Atrial Rate 69 BPM MUSE TX Interval 178 ms MUSE QRS Duration 82 ms MUSE QT 394 ms MUSE QTc 422 ms MUSE P [place] 75 degrees MUSE R AXIS 24 degrees MUSE T [place] 80 degrees MUSE Interpretation ECG Sinus rhythm Minimal voltage criteria for LVH, may be normal variant ( Bennie product ) Borderline ECG When compared with ECG of 27-Apr-2024 14:32, (unconfirmed) No significant change was found Unconfirmed report - interpretation of this ECG is computer generated - see medical record for final interpretation Confirmed by - EMERGENCY ROOM, PHYSICIAN ([id number]), science editor Song Cheung ([id number]) on 04/27/2024 3:21:42 PM MUSE 04/27/2024 2:47 [...] - BLOOD ORDERABLES Final Result [facility] Acute Care Lab [address] Lab (1st floor, no room number) [address] [place] [address] * Extra Blue Top Tube (04/27/2024 1:53 PM CDT) Hold Specimen JIC 04/27/2024 3:01 PM CDT [facility] Blood BLOOD SPECIMEN / Unknown Venipuncture / Unknown 04/27/2024 1:53 PM CDT 04/27/2024 1:56 PM CDT us Jason Tapia MD LAB - BLOOD ORDERABLES Final Result LABORATORY [facility] Care Lab [address] Lab (1st floor, no room number) [address] * (ABNORMAL) CBC with platelets and differential (04/27/2024 1:53 PM CDT) [facility] WBC Count 14.2(H) 4.0 - 11.0 [...] - BLOOD ORDERABLES Final Result [facility] Acute Care Lab [address] Lab (1st floor, no room number) [place] [address], [facility] * (ABNORMAL) D dimer quantitative (04/27/2024 [...] out pulmonary embolism: The ADJUST-PE Study. REGINA 2014;311:6210-3038.; HJ Rey et al. Diagnostic accuracy of conventional or age adjusted D-dimer cutoff values in older patients with suspected venous thromboembolism. Systemic review and meta-analysis. BMJ 2013:346:f2492. us Jason Tapia MD LAB - BLOOD ORDERABLES Final Result LABORATORY [facility] Acute Care Lab [address] [facility] Lab (1st floor, no room number) [place] [address], [facility] * (ABNORMAL) Comprehensive metabolic panel (04/27/2024 [...] LAB - BLOOD ORDERABLES Final Result LABORATORY [facility] Acute Care Lab [address] [facility] Lab (1st floor, no room number) [place] [address], [facility] * (ABNORMAL) Renal panel (12/18/2022 8:45 AM BURR MACHINE OPERATOR) Sodium 135 135 - 145 mmol/L 12/18/2022 9:44 AM [facility] Comment:Reference intervals for this test were updated on 11/06/2022 to more accurately reflect our healthy population. There may be differences in the flagging of prior results with similar values performed with this method. Interpretation of those prior results can be made in the context of the updated reference intervals. Potassium 4.2 3.4 - 5.3 mmol/L 12/18/2022 9:44 AM [facility] Chloride 99 98 - 107 mmol/L 12/18/2022 9:44 AM [facility] Carbon Dioxide (CO2) 29 22 - 29 mmol/L 12/18/2022 9:44 AM [facility] Anion Gap 7 7 - 15 mmol/L 12/18/2022 9:44 AM [facility] Glucose 128(H) 70 - 99 mg/dL 12/18/2022 9:44 AM [facility] Urea Nitrogen 17.7 8.0 - 23.0 mg/dL 12/18/2022 9:44 AM [facility] Creatinine 2.67(H) 0.51 - 0.95 mg/dL 12/18/2022 9:44 AM [facility] GFR Estimate 18(L) >60 mL/min/1. 73m2 12/18/2022 9:44 AM [facility] Calcium 7.6(L) 8.8 - 10.2 mg/dL 12/18/2022 9:44 AM [facility] Albumin 2.6(L) 3.5 - 5.2 g/dL 12/18/2022 9:44 AM [facility] Phosphorus 2.3(L) 2.5 - 4.5 mg/dL 12/18/2022 9:44 AM [facility] Blood STRUCTURE OF RIGHT UPPER LIMB / Unknown Venipuncture / Unknown 12/18/2022 8:45 AM BURR MACHINE OPERATOR 12/18/2022 8:50 AM BURR MACHINE OPERATOR us David Treviño MD LAB - BLOOD ORDERABLES Final Res ult LABORATORY [facility] Acute Care Lab [address] Lab (1st floor, no room number) [place] [address], [facility] [phone] * Stool: occult blood (12/12/2022 11:03 PM CDT) Occult Blood Negative Negative JENNIFER 12/12/2022 11:32 PM CDT LABORATORY Stool RECTAL CONTENTS / Unknown Non-blood Collection / Unknown 12/12/2022 11:03 PM CDT 12/12/2022 11:11 PM CDT us Jason Tapia MD LAB - STOOLS ORDERABLES Final Result [facility] Care Lab [address] [employer] Lab (1st floor, no room number) [place] [address], [facility] [phone] from Last 3 Months or Most Recently Relevant to Health Maintenance Insurance MEDICARE ADVANTAGE [employer] MEDICARE ADVANTAGE Advance Directives For more information, please contact: [phone] * Full Code (Latest Code Status on [...] patie nt/ legal decision maker Care Teams Director Compliance Relationship Specialty Start Date End Date Tyrell Schneider [address] [place] [address] PCP - General Family Medicine 02/19/23
--- OUTSIDE RECORDS SUMMARY | 2024-04-29 06:30 | XMS_ITS | Encounter Summary ---
Author Organization [facility] Address [address] [place] [address] Care Team Providers Care Web Design Instructor Name Role Phone Unavailable Primary Care Provider Unavailabl e Encounter Details Date Type Department Care Team (Late st Contact Info) Description 08/24/2015 Historical Ophthalmology RST OPH Deann Colby M.D. [address] [place] [phone] Social History Tobacco Use Types Packs/Day Years Used Date Smoking Tobacco: Never Assessed Comments Unknown Sex and Gender Information Value Date Recorded Sex Assigned at Not on file Legal Sex Female 10:27 PM RAG SHREDDER Gender Identity Female 01/08/2022 2:47 PM RAG SHREDDER Sexual Orientation Straight 01/08/2022 2: 47 PM RAG SHREDDER documented as of this encounter Progress Notes [...] intra-op intravitreal vancomycin and ceftazadime Seen with HIV PREVENTION SPECIALIST today. 08/03/15: Corneal edema continues to improve. [...] vision, worsening concerns. Must come in when HIV PREVENTION SPECIALIST is here. Use fluorescein strips only, [...] #4 Floaters, right eye CDM Reports - EYESypherlink Id: [id number] Status: Fnl documented in this encounter Plan of Treatment Not on file documented as of this encounter Visit Diagnoses Not on filedocumented in this encounter
--- OUTSIDE RECORDS SUMMARY | 2024-04-29 06:30 | XMS_ITS | Clinical Summary ---
Author Organization [facility] Address [address] [place] [address] Care Team Providers Care Bail Bondsman Name Role Phone Unavailable Primary Care Provider Unavailabl e Source Comments Patient records contain information from all sites at [facility]. For routine questions regarding patient records, call [phone] during business hours, M-F 8:00 AM - 5:00 PM Central Time. Record requests for emergency care only can be directed to [phone] at any time.[facility] Allergies Active Allergy Reactions Criticality Noted Date [...] Itching 01/09/2010 itching Niacin Itching 05/13/2006 itch [place] Rash 05/16/2010 [place] 0-Baf-Gfi-Fish Oil Other (see comments) 01/09/2010 itching Pioglitazone [...] (04/25/2021): Added automatically from request for surgery [id number] Major Depressive Disorder, Recurrent, Unspecifie d 03/22/2021 Anemia In Chronic Kidney Disease 04/18/2018 Chronic Obstructive Pulmonary Disease 04/18/2018 Failure Renal End Stage 04/18/2018 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 Med Refill 02/07/2024 Refill Department of Ophthalmology in [place], [place] [address] [place] [address] Luma Solis M.D., M.S. Med Refill from [...] on file Legal Sex Female 10:27 PM ROUGE SIFTER AND MILLER Gender Identity Female 01/08/2022 2:47 PM ROUGE SIFTER [employer] MILLER Sexual Orientation Straight 01/08/2022 2: 47 PM ROUGE SIFTER AND MILLER Last Filed Vital Signs Vital Sign Reading [...] this topic Medical Devices Implanted Type Area Test Rack Operator Device Identifier Shelf Expiration Date Model / Serial / Lot Cornea - [id number] Implanted:Qty: 1 on 05/13/2015 Ocular (Eye) Implant Other/Legacy - See Implant Description [employer] Eye [employer] Description:Device Manufactu rer - [employer] Eye [employer]. Body Location - Other. Left. Device Status Text - [id number]. Cornea - [id number] Implanted:Qty: 1 on 06/10/2015 Ocular (Eye) Implant Other/Legacy - See Implant Description [employer] Eye [employer] Description:Device Manufactu rer - [employer] Eye [employer]. Body Location - Other. Left. Device Status Text - [id number]. Procedures Procedure Name Priority Date/Time Associated Diagnosis [...] A1c, B 8.1(H) 4.0 - 6.0 % [facility] 05/13/2015 11:3 1 PM CDT 05/13/2015 11:31 PM CDT us Frantz Lee M.D. LAB BLOOD ADD-ON Final Resu lt [facility] [address] [place] [id number] from Last 3 Months or Most Recently Relevant to Health Maintenance Insurance [facility] [address] MEDICARE
--- OUTSIDE RECORDS SUMMARY | 2024-04-29 06:30 | XMS_ITS | Encounter Summary ---
Author Organization [facility] Address [address] [place] [address] Care Team Providers Care Torch Cutter Name Role Phone Schneider Tyrell Bulmaro Primary Care Provider [phone] Reason for Visit * Reason Comments Chest Pain Encounter Details Date Type Department Care Team (Late st Contact Info) Description 04/27/2024 1:37 PM CDT - 04/27/2024 8:51 PM CDT Emergency [facility] Emergency Dept [address] [place] [address] Jason Tapia MD [facility] [address] [place], [place] [id number] Left-sided chest pain; Mass of upper lobe [...] CDT Follow-up with the cancer clinic in [place] as you already plan to do Use Tylenol for pain or discomfort * Attachments The following attachments cannot be sent through Care Everywhere. * Chest Pain (Scottish) documented in this encounter Medications at Time [...] tablet by mouth daily neomycin-polymyxi n-dexAMETHasone (MAXITROL) 3.5-27811-6.[address] 0.25 inches Into the [...] of end-stage renal disease normally dialyzes in [place]. Did not dialyze today which would have [...] multivitamin RENAL (RENAVITE RX/NEPHROVITE) 1 tablet tablet imwqypbh-ixsrnenef-yjkPNZDVkgacs (MAXITROL) 3.5-11185-3.1 ophthalmic ointment nicotine (NICODERM CQ) 14 MG/24HR [...] Procedure: REMOVAL PERITONEAL DIALYSIS CATHETER; Surgeon: Rajan Hrenandez MD; Location: [facility] OR Physical Exam Patient [...] Pressure Ventricular Rate 75 Atrial Rate 75 RI Interval 178 QRS Duration 86 QT 394 QTc 439 P [place] 81 R AXIS 44 T [place] 91 Interpretation ECG Sinus rhythm Normal ECG [...] prolonged, 1833 Lung biopsy April 07, 2024 [facility] was positive for malignancy, squamous cell carcinoma. Social Determinants of Health affecting care: Disposition: discharge Impression & Plan [facility] Diagnoses: MIPS (If applicable): Medical Decision Making: [...] follow-up with her PCP and oncology in [place]. She was comfortable and agreeable with that [...] pharmacist at primary pharmacy Changes made to CLINICAL DIETITIAN medication list: Added: calcium acetate, hydralazine, losartan, methocarbamol, nifedipine, spironolactone, Breo inhaler, Albuterol inhaler Deleted: senna, sorbitol, Incruse inhaler, miralax, labetalol, cetirizine, amlodipine Changed: nicotine patch (21 mg --> 14 mg) Allergies reviewed with patient and updates made in EHR: no Medication History Completed By: Tony Alcantar RPH 04/27/2024 5:16 PM CLINICAL DIETITIAN Med List Medication Sig Note Last Dose/Taking [...] 1 tablet by mouth daily Past Week cglwstsu-eritketil-pacFDJLDpdujb (MAXITROL) 3.5-78709-3.[address] 0.25 inches Into the [...] at [facility] [address] Lab (1st floor, no room number) [place] [address], [facility] * CT Chest Pulmonary Embolism [...] CT CHEST PULMONARY EMBOLISM W CONTRAST LOCATION: [facility] DATE: 04/27/2024 INDICATION: Chest pain, elevated d-dimer [...] CT CHEST PULMONARY EMBOLISM W CONTRAST LOCATION: [facility] DATE: 04/27/2024 INDICATION: Chest pain, elevated d-dimer [...] 1.8 cm in short axis (series 6 [id number]) and left prevascular node measuring 1.2 cm [...] US LOWER EXTREMITY VENOUS DUPLEX RIGHT LOCATION: [facility] DATE: 04/27/2024 INDICATION: RLQ pain, no trauma [...] US LOWER EXTREMITY VENOUS DUPLEX RIGHT LOCATION: [facility] DATE: 04/27/2024 INDICATION: RLQ pain, no trauma [...] fluid collection right groin. Jason Tapia MD [facility] [place] ORDERABLES Final Result * (ABNORMAL) Troponin [...] LAB - BLOOD ORDERABLES Final Result LABORATORY [facility] [address] [facility] Lab (1st floor, no room number) [place] [address], [facility] * (ABNORMAL) D dimer quantitative (04/27/2024 1:53 [...] out pulmonary embolism: The ADJUST-PE Study. REGINA 2014;311:9962-9191.; HJ Rey et al. Diagnostic accuracy of conventional or age adjusted D-dimer cutoff values in older patients with suspected venous thromboembolism. Systemic review and meta-analysis. BMJ 2013:346:f2492. us Jason Tapia MD LAB - BLOOD ORDERABLES Final Result LABORATORY [facility] [address] [facility] Lab (1st floor, no room number) [place] [address] * Extra Red Top Tube (04/27/2024 1:53 PM CDT) Hold Specimen JIC 04/27/2024 3:01 PM CDT LABORATORY Blood BLOOD SPECIMEN / Unknown Venipuncture / Unknown 04/27/2024 1:53 PM CDT 04/27/2024 1:56 PM CDT Jason Tapia MD LAB - BLOOD ORDERABLES Final Result LABORATORY [facility] [address] Lab (1st floor, no room number) [place] [address] * Extra Blue Top Tube (04/27/2024 1:53 PM CDT) Hold Specimen JIC 04/27/2024 3:01 PM CDT LABORATORY Blood BLOOD SPECIMEN / Unknown Venipuncture / Unknown 04/27/2024 1:53 PM CDT 04/27/2024 1:56 PM CDT Jason Tapia MD LAB - BLOOD ORDERABLES Final Result Performing Organization Address [facility]/ZIP Co de Phone Number [facility] [address] Lab (1st floor, no room number) [place] [phone] [place] [address] * (ABNORMAL) CBC with platelets and differential [...] [facility] [address] Lab (1st floor, no room number) [place] [address], [facility] * (ABNORMAL) Troponin T, High Sensitivity (04/27/2024 [...] LAB - BLOOD ORDERABLES Final Result LABORATORY [facility] [address] Lab (1st floor, no room number) [place] [address], [facility] * (ABNORMAL) Comprehensive metabolic panel (04/27/2024 1:53 [...] LAB - BLOOD ORDERABLES Final Result LABORATORY [facility] [address] Lab (1st floor, no room number) [place] [address], [facility] documented in this encounter Visit Diagnoses Diagnosis [...] cloNIDine (CATAPRES) tablet 0.1 mg 0.1 mg (0.12629 mg/kg), Oral, ONCE, On Sat04/27/24 at 1510, [...] (CATAPRES) tablet 0.1 mg (COMPLETED) 0.1 mg (0.51787 mg/kg), Oral, ONCE, On Sat04/27/24 at 1510, [...] RN) documented in this encounter Care Teams Torch Cutter Relationship Specialty Start Date End Date Tyrell Schneider [address] [place] [address] PCP - General Family Medicine 02/19/23 documented as of this encounter
--- OUTSIDE RECORDS SUMMARY | 2024-04-29 06:30 | XMS_ITS | Encounter Summary ---
Author Organization [facility] Address [address] [place] [address] Care Team Providers Care Loss Prevention Manager Name Role Phone Unavailable Primary Care Provider Unavailabl e Encounter Details Date Type Department Care Team (Late st Contact Info) Description 07/12/2015 Historical Ophthalmology [facility] O[facility] Eva Heard M.D. [address] [facility] [address] [place] [phone] Social History Tobacco Use Types Packs/Day Years Used Date Smoking Tobacco: Never Assessed Comments Unknown Sex and Gender Information Value Date Recorded Sex Assigned at Not on file Legal Sex Female 10:27 PM GLASS PRESSER Gender Identity Female 01/08/2022 2:47 PM GLASS PRESSER Sexual Orientation Straight 01/08/2022 2: 47 PM GLASS PRESSER documented as of this encounter Progress [...] intra-op intravitreal vancomycin and ceftazadime Seen with HEALTH AND WELLNESS COORDINATOR today. 06/13/15: Paul negative. Well formed chamber, with normal IOP. Graft and sutures intact. Suture reaction most significant inferiorly, will continue pred forte TID and consider suture removal inferiorly at next visit. 06/16/15: Paul negative, formed chamber, suture reaction on all original graft sutures, no loose sutures, discussed with LJM, continue current drops and return next week when HEALTH AND WELLNESS COORDINATOR here. Seen with SCB today. 06/20/15: Paul negative, formed chamber, suture reaction decreased, seen with HEALTH AND WELLNESS COORDINATOR, M Parasol occluder placed in left lower puncum, expires 2018, LOT [id number] 06/27/15: Paul negative, increased edema over snowman [...] Monocular status CDM Reports - EYEGEN Id: [id number] Status: Fnl documented in this encounter Plan of Treatment Not on file documented as of this encounter Visit Diagnoses Not on filedocumented in this encounter
--- OUTSIDE RECORDS SUMMARY | 2024-04-29 06:30 | XMS_ITS | Encounter Summary ---
Author Organization [facility] Address [address] [place] [address] Care Team Providers Care Front End Alignment Specialist Name Role Phone Unavailable Primary Care Provider Unavailabl e Encounter Details Date Type Department Care Team (Late st Contact Info) Description 09/26/2015 Historical Ophthalmology [facility] O[facility] Deann Colby M.D. [address] [place] [phone] Social History Tobacco Use Types Packs/Day Years Used Date Smoking Tobacco: Never Assessed Comments Unknown Sex and Gender Information Value Date Recorded Sex Assigned at Not on file Legal Sex Female 10:27 PM HOME COMFORT ADVISOR Gender Identity Female 01/08/2022 2:47 PM HOME COMFORT ADVISOR Sexual Orientation Straight 01/08/2022 2: 47 PM HOME COMFORT ADVISOR documented as of this encounter Progress [...] intra-op intravitreal vancomycin and ceftazadime Seen with SPRAGGER today. 26 Sep 2015: Corneal edema continues [...] vision, worsening concerns. Must come in when SPRAGGER is here. Use fluorescein strips only, not [...] right eye CDM Reports - EYEGEN Id: [id number] Status: Fnl documented in this encounter Plan of Treatment Not on file documented as of this encounter Visit Diagnoses Not on filedocumented in this encounter
--- OUTSIDE RECORDS SUMMARY | 2024-04-29 06:30 | XMS_ITS | Encounter Summary ---
Author Organization [facility] Address [address] [place] [address] Care Team Providers Care Welcome Hostess Name Role Phone Unavailable Primary Care Provider Unavailabl e Encounter Details Date Type Department Care Team (Late st Contact Info) Description 10/13/2015 Historical Ophthalmology [facility] O[facility] Deann Colby M.D. [address] [place] [phone] Social History Tobacco Use Types Packs/Day Years Used Date Smoking Tobacco: Never Assessed Comments Unknown Sex and Gender Information Value Date Recorded Sex Assigned at Not on file Legal Sex Female 10:27 PM GLOVE MAKER Gender Identity Female 01/08/2022 2:47 PM GLOVE MAKER Sexual Orientation Straight 01/08/2022 2: 47 PM GLOVE MAKER documented as of this encounter Progress Notes [...] intra-op intravitreal vancomycin and ceftazadime Discussed with SPINNING ROOM WORKER today. 13 Oct 2015: Corneal edema continues [...] vision, worsening concerns. Must come in when SPINNING ROOM WORKER is here. Use fluorescein strips only, not [...] #4 Floaters, right eye CDM Reports - EYECytosorbents Id: [id number] Status: Fnl documented in this encounter Plan of Treatment Not on file documented as of this encounter Visit Diagnoses Not on filedocumented in this encounter
--- OUTSIDE RECORDS SUMMARY | 2024-04-29 06:30 | XMS_ITS | Encounter Summary ---
Author Organization [facility] Address [address] [place] [address] Care Team Providers Care Helicopter Officer Name Role Phone Unavailable Primary Care Provider Unavailabl e Encounter Details Date Type Department Care Team (Late st Contact Info) Description 08/03/2015 Historical Ophthalmology RST OPH Eva Heard M.D. [address] [facility] 200 [place] [phone] Social History Tobacco Use Types Packs/Day Years Used Date Smoking Tobacco: Never Assessed Comments Unknown Sex and Gender Information Value Date Recorded Sex Assigned at Not on file Legal Sex Female 10:27 PM HAM CLERK Gender Identity Female 01/08/2022 2:47 PM HAM CLERK Sexual Orientation Straight 01/08/2022 2: 47 PM HAM CLERK documented as of this encounter Progress [...] intra-op intravitreal vancomycin and ceftazadime Seen with DIRECTOR OF RESTAURANTS today. 06/13/15: Paul negative. Well formed chamber, with normal IOP. Graft and sutures intact. Suture reaction most significant inferiorly, will continue pred forte TID and consider suture removal inferiorly at next visit. 06/16/15: Paul negative, formed chamber, suture reaction on all original graft sutures, no loose sutures, discussed with LJM, continue current drops and return next week when DIRECTOR OF RESTAURANTS here. Seen with SCB today. 06/20/15: Paul negative, formed chamber, suture reaction decreased, seen with DIRECTOR OF RESTAURANTS, M Parasol occluder placed in left lower puncum, expires 2018, LOT [id number] 06/27/15: Paul negative, increased edema over snowman [...] both eyes CDM Reports - EYEGEN Id: [id number] Status: Fnl documented in this encounter Plan of Treatment Not on file documented as of this encounter Visit Diagnoses Not on filedocumented in this encounter
--- OUTSIDE RECORDS SUMMARY | 2024-04-29 06:30 | XMS_ITS | Encounter Summary ---
Author Organization [facility] Address [address] [place] [address] Care Team Providers Care Sales Representative Raw Fibers Name Role Phone Unavailable Primary Care Provider Unavailabl e Encounter Details Date Type Department Care Team (Late st Contact Info) Description 10/24/2015 Historical Ophthalmology RST OPH Deann Colby M.D. [address] [place] [phone] Social History Tobacco Use Types Packs/Day Years Used Date Smoking Tobacco: Never Assessed Comments Unknown Sex and Gender Information Value Date Recorded Sex Assigned at Not on file Legal Sex Female 10:27 PM SURGICAL ASSIST Gender Identity Female 01/08/2022 2:47 PM SURGICAL ASSIST Sexual Orientation Straight 01/08/2022 2: 47 PM SURGICAL ASSIST documented as of this encounter Progress Notes [...] intra-op intravitreal vancomycin and ceftazadime Discussed with SOCIALLY RESPONSIBLE INVESTMENT ADVISER today. 24 Oct 2015: Corneal edema continues [...] vision, worsening concerns. Must come in when SOCIALLY RESPONSIBLE INVESTMENT ADVISER is here. Use fluorescein strips only, not [...] #4 Floaters, right eye CD[facility] Id: [id number] Status: Fnl documented in this encounter Plan of Treatment Not on file documented as of this encounter Visit Diagnoses Not on filedocumented in this encounter
--- OUTSIDE RECORDS SUMMARY | 2024-04-29 06:31 | XMS_ITS | Encounter Summary ---
Author Organization [facility] Address [address] [place] [address] Care Team Providers Care Outlet Manager Name Role Phone Unavailable Primary Care Provider Unavailabl e Encounter Details Date Type Department Care Team (Late st Contact Info) Description 07/12/2016 Historical Ophthalmology RST OPH Deann Colby M.D. [address] [place] [phone] Social History Tobacco Use Types Packs/Day Years Used Date Smoking Tobacco: Never Assessed Comments Unknown Sex and Gender Information Value Date Recorded Sex Assigned at Not on file Legal Sex Female 10:27 PM TRAINING AND DEVELOPMENT COORDINATOR Gender Identity Female 01/08/2022 2:47 PM TRAINING AND DEVELOPMENT COORDINATOR Sexual Orientation Straight 01/08/2022 2: 47 PM TRAINING AND DEVELOPMENT COORDINATOR documented as of this encounter Progress [...] today nearly 1 year after surgery with STUNT DRIVER. Exam is stable with 1 loose suture. IOP stable. Removed 11 sutures in total today. Continue prednisolone 1 x daily. Refresh tears 4x daily. RTC 4-6 weeks with refraction when Dr. Payton is in clinic. 12 Jul 2016: Seen with STUNT DRIVER. Exam stable with 1 loose suture. IOP [...] sent to Benigno Bishop, OD, FAAO at [facility] who also cares for Ms. Vanegas. Recommend he recheck IOP and visual acuity in 4 months. 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 Return to [place] PRN. #2 Background diabetic retinopathy, right eye [...] right eye CDM Reports - EYEGEN Id: [id number] Status: Fnl documented in this encounter Plan of Treatment Not on file documented as of this encounter Visit Diagnoses Not on filedocumented in this encounter
--- OUTSIDE RECORDS SUMMARY | 2024-04-29 06:31 | XMS_ITS | Encounter Summary ---
Author Organization [facility] Address [address] [place] [address] Care Team Providers Care Resin Shaver Name Role Phone Unavailable Primary Care Provider Unavailabl e Encounter Details Date Type Department Care Team (Late st Contact Info) Description 03/12/2016 Historical Ophthalmology RST OPH Daniel Clements M.D. [address] [place] [phone] Social History Tobacco Use Types Packs/Day Years Used Date Smoking Tobacco: Never Assessed Comments Unknown Sex and Gender Information Value Date Recorded Sex Assigned at Not on file Legal Sex Female 10:27 PM ARTILLERY SPECIALIST Gender Identity Female 01/08/2022 2:47 PM ARTILLERY SPECIALIST Sexual Orientation Straight 01/08/2022 2: 47 PM ARTILLERY SPECIALIST documented as of this encounter Progress [...] vision, worsening concerns. Must come in when OFFICE SUPPORT CLERK is here (preferably as COS staff). Use [...] right eye CDM Reports - EYEGEN Id: [id number] Status: Fnl documented in this encounter Plan of Treatment Not on file documented as of this encounter Visit Diagnoses Not on filedocumented in this encounter
--- OUTSIDE RECORDS SUMMARY | 2024-04-29 06:31 | XMS_ITS | Encounter Summary ---
Author Organization [facility] Address [address] [place] [address] Care Team Providers Care News Intern Name Role Phone Unavailable Primary Care Provider Unavailabl e Encounter Details Date Type Department Care Team (Late st Contact Info) Description 05/10/2015 Historical Ophthalmology RST OPH Frantz Lee M.D. [address] [place] [phone] Social History Tobacco Use Types Packs/Day Years Used Date Smoking Tobacco: Never Assessed Comments Unknown Sex and Gender Information Value Date Recorded Sex Assigned at Not on file Legal Sex Female 10:27 PM DOOR FRAME ASSEMBLER MACHINE Gender Identity Female 01/08/2022 2:47 PM DOOR FRAME ASSEMBLER MACHINE Sexual Orientation Straight 01/08/2022 2: 47 PM DOOR FRAME ASSEMBLER MACHINE documented as of this encounter Progress Notes [...] left eye CDM Reports - EYEGEN Id: [id number] Status: Fnl documented in this encounter Plan of Treatment Not on file documented as of this encounter Visit Diagnoses Not on filedocumented in this encounter
--- OUTSIDE RECORDS SUMMARY | 2024-04-29 06:31 | XMS_ITS | Encounter Summary ---
Author Organization [facility] Address [address] [place] [address] Care Team Providers Care Well Treatment Offsider Name Role Phone Unavailable Primary Care Provider Unavailabl e Encounter Details Date Type Department Care Team (Late st Contact Info) Description 05/11/2015 Historical Ophthalmology RST OPH Frantz Lee M.D. [address] [place] [phone] Social History Tobacco Use Types Packs/Day Years Used Date Smoking Tobacco: Never Assessed Comments Unknown Sex and Gender Information Value Date Recorded Sex Assigned at Not on file Legal Sex Female 10:27 PM TABULATING MACHINE MECHANIC Gender Identity Female 01/08/2022 2:47 PM TABULATING MACHINE MECHANIC Sexual Orientation Straight 01/08/2022 2: 47 PM TABULATING MACHINE MECHANIC documented as of this encounter Progress [...] left eye CDM Reports - EYEGEN Id: [id number] Status: Fnl documented in this encounter Plan of Treatment Not on file documented as of this encounter Visit Diagnoses Not on filedocumented in this encounter
--- OUTSIDE RECORDS SUMMARY | 2024-04-29 06:31 | XMS_ITS | Encounter Summary ---
Author Organization [facility] Address [address] [place] [address] Care Team Providers Care Area Mechanic Name Role Phone Unavailable Primary Care Provider Unavailabl e Encounter Details Date Type Department Care Team (Late st Contact Info) Description 05/13/2015 Historical Ophthalmology RST OPH Frantz Lee M.D. [address] [place] [phone] Social History Tobacco Use Types Packs/Day Years Used Date Smoking Tobacco: Never Assessed Comments Unknown Sex and Gender Information Value Date Recorded Sex Assigned at Not on file Legal Sex Female 10:27 PM HERPETOLOGIST Gender Identity Female 01/08/2022 2:47 PM HERPETOLOGIST Sexual Orientation Straight 01/08/2022 2: 47 PM HERPETOLOGIST documented as of this encounter Progress Notes [...] follow with her PCP for diabetes management. LOCATION MAN ([id number]): I interviewed and examined the patient and [...] Corneal ulcer, left eye CDM Reports - [facility] Id: [id number] Status: Fnl documented in this encounter Plan of Treatment Not on file documented as of this encounter Visit Diagnoses Not on filedocumented in this encounter
--- OUTSIDE RECORDS SUMMARY | 2024-04-29 06:31 | XMS_ITS | Encounter Summary ---
Author Organization [facility] Address [address] [place] [address] Care Team Providers Care Municipal Services Manager Name Role Phone Unavailable Primary Care Provider Unavailabl e Encounter Details Date Type Department Care Team (Late st Contact Info) Description 04/17/2016 Historical Ophthalmology RST OPH Daniel Clements M.D. [address] [place] [phone] Social History Tobacco Use Types Packs/Day Years Used Date Smoking Tobacco: Never Assessed Comments Unknown Sex and Gender Information Value Date Recorded Sex Assigned at Not on file Legal Sex Female 10:27 PM FEDERAL DISTRICT LAW CLERK Gender Identity Female 01/08/2022 2:47 PM FEDERAL DISTRICT LAW CLERK Sexual Orientation Straight 01/08/2022 2: 47 PM FEDERAL DISTRICT LAW CLERK documented as of this encounter Progress Notes * Daniel Clements M.D. - 04/17/2016 9:37 AM CST Eye General CHIEF COMPLAINT Left eye itching all night long; 2.5 weeks; tearing a little. HISTORY OF PRESENT ILLNESS [place] over left eye pupil. No eye pain. [...] right eye CDM Reports - EYEGEN Id: [id number] Status: Fnl documented in this encounter Plan of Treatment Not on file documented as of this encounter Visit Diagnoses Not on filedocumented in this encounter
--- OUTSIDE RECORDS SUMMARY | 2024-04-29 06:31 | XMS_ITS | Encounter Summary ---
Author Organization [facility] Address [address] [place] [address] Care Team Providers Care Director Social Name Role Phone Unavailable Primary Care Provider Unavailabl e Encounter Details Date Type Department Care Team (Late st Contact Info) Description 05/20/2015 Historical Ophthalmology RST OPH Eva Heard M.D. [address] [facility] 200 [place] [phone] Social History Tobacco Use Types Packs/Day Years Used Date Smoking Tobacco: Never Assessed Comments Unknown Sex and Gender Information Value Date Recorded Sex Assigned at Not on file Legal Sex Female 10:27 PM STEERSMAN Gender Identity Female 01/08/2022 2:47 PM STEERSMAN Sexual Orientation Straight 01/08/2022 2: 47 PM STEERSMAN documented as of this encounter Progress Notes [...] Saturday. s/p intra-op subconj Dex Seen with MERCHANDISE EXECUTION LEADER today Plan: Alternate every 2 hours with [...] right eye CDM Reports - EYEGEN Id: [id number] Status: Fnl documented in this encounter Plan of Treatment Not on file documented as of this encounter Visit Diagnoses Not on filedocumented in this encounter
--- OUTSIDE RECORDS SUMMARY | 2024-04-29 06:31 | XMS_ITS | Encounter Summary ---
Author Organization [facility] Address [address] [place] [address] Care Team Providers Care Pediatric Physical Therapy Assistant Name Role Phone Unavailable Primary Care Provider Unavailabl e Encounter Details Date Type Department Care Team (Late st Contact Info) Description 06/05/2016 Historical Ophthalmology RST OPH Deann Colby M.D. [address] [place] [phone] Social History Tobacco Use Types Packs/Day Years Used Date Smoking Tobacco: Never Assessed Comments Unknown Sex and Gender Information Value Date Recorded Sex Assigned at Not on file Legal Sex Female 10:27 PM HYDRODYNAMICS TEACHER Gender Identity Female 01/08/2022 2:47 PM HYDRODYNAMICS TEACHER Sexual Orientation Straight 01/08/2022 2: 47 PM HYDRODYNAMICS TEACHER documented as of this encounter Progress [...] in clinic. CDM Reports - EYEGEN Id: [id number] Status: Fnl documented in this encounter Plan of Treatment Not on file documented as of this encounter Visit Diagnoses Not on filedocumented in this encounter
--- OUTSIDE RECORDS SUMMARY | 2024-04-29 06:31 | XMS_ITS | Encounter Summary ---
Author Organization [facility] Address [address] [place] [address] Care Team Providers Care Film Sound Engineer Name Role Phone Unavailable Primary Care Provider Unavailabl e Encounter Details Date Type Department Care Team (Late st Contact Info) Description 06/13/2015 Historical Ophthalmology RST OPH Maricruz Garcia M.D. Social History Tobacco Use Types Packs/Day Years Used Date Smoking Tobacco: Never Assessed Comments Unknown Sex and Gender Information Value Date Recorded Sex Assigned at Not on file Legal Sex Female 10:27 PM MECHANICAL UNIT REPAIRER Gender Identity Female 01/08/2022 2:47 PM MECHANICAL UNIT REPAIRER Sexual Orientation Straight 01/08/2022 2: 47 PM MECHANICAL UNIT REPAIRER documented as of this encounter Progress Notes * Maricruz Garcia M.D. - 06/13/2015 3:08 PM CDT Eye Postoperative MULTI-VISIT DOCUMENT This document contains multiple patient visits and is available for review in Document Viewer. CDM Reports - EYEPO Id: [id number] Status: Fnl documented in this encounter Plan of Treatment Not on file documented as of this encounter Visit Diagnoses Not on filedocumented in this encounter
--- OUTSIDE RECORDS SUMMARY | 2024-04-29 06:31 | XMS_ITS | Encounter Summary ---
Author Organization [facility] Address [address] [place] [address] Care Team Providers Care Jailer Chief Name Role Phone Unavailable Primary Care Provider [...] Legal Sex Female 10:27 PM DIRECTOR OF RESTAURANT OPERATIONS Gender Identity Female 01/08/2022 2:47 PM DIRECTOR OF RESTAURANT OPERATIONS Sexual Orientation Straight 01/08/2022 2: 47 PM DIRECTOR OF RESTAURANT OPERATIONS documented as of this encounter Progress Notes [...] Monocular status CDM Reports - EYEGEN Id: [id number] Status: Fnl documented in this encounter Plan of Treatment Not on file documented as of this encounter Visit Diagnoses Not on filedocumented in this encounter
--- OUTSIDE RECORDS SUMMARY | 2024-04-29 06:31 | XMS_ITS | Encounter Summary ---
Author Organization [facility] Address [address] [place] [address] Care Team Providers Care Wincher Name Role Phone Tyrell Schneider Primary Care Provider [phone] Encounter Details Date Type Department Care Team (Late st Contact Info) Description 04/27/2024 Results Only [facility] [address] [place] [address] Emanuel Lozano MD [facility] [address], [facility] [address] [place] [address] Social History Tobacco Use Types Packs/Day Years [...] BPM MUSE Atrial Rate 69 BPM MUSE OH Interval 178 ms MUSE QRS Duration 82 ms MUSE QT 394 ms MUSE QTc 422 ms MUSE P [place] 75 degrees MUSE R AXIS 24 degrees MUSE T [place] 80 degrees MUSE Interpretation ECG Sinus rhythm Minimal voltage criteria for LVH, may be normal variant ( Ralph product ) Borderline ECG When compared with ECG of 27-Apr-2024 14:32, (unconfirmed) No significant change was found Unconfirmed report - interpretation of this ECG is computer generated - see medical record for final interpretation Confirmed by - EMERGENCY ROOM, PHYSICIAN ([id number]), editorial intern Song Cheung ([id number]) on 04/27/2024 3:21:42 PM MUSE 04/27/2024 2:47 PM CDT 04/27/2024 3:21 PM CDT us Emanuel Lozano MD ECG ORDERABLES Edited Result - Final MUSE documented in this encounter Visit Diagnoses Not on filedocumented in this encounter Care Teams Wincher Relationship Specialty Start Date End Date Tyrell Schneider [address] [place] [address] PCP - General Family Medicine 02/19/23 documented as of this encounter
--- OUTSIDE RECORDS SUMMARY | 2024-04-29 06:31 | XMS_ITS | Encounter Summary ---
Author Organization [facility] Address [address] [place] [address] Care Team Providers Care Resource Development Director Name Role Phone Unavailable Primary Care Provider Unavailabl e Encounter Details Date Type Department Care Team (Late st Contact Info) Description 05/09/2015 Historical Ophthalmology RST OPH Frantz Lee M.D. [address] [place] [phone] Social History Tobacco Use Types Packs/Day Years Used Date Smoking Tobacco: Never Assessed Comments Unknown Sex and Gender Information Value Date Recorded Sex Assigned at Not on file Legal Sex Female 10:27 PM ECONOMIC DEVELOPMENT COORDINATOR Gender Identity Female 01/08/2022 2:47 PM ECONOMIC DEVELOPMENT COORDINATOR Sexual Orientation Straight 01/08/2022 2: 47 PM ECONOMIC DEVELOPMENT COORDINATOR documented as of this encounter [...] the eye doctor this morning in [facility]. States that she lost the [...] left eye CDM Reports - EYEGEN Id: [id number] Status: Fnl documented in this encounter Plan of Treatment Not on file documented as of this encounter Visit Diagnoses Not on filedocumented in this encounter
--- OUTSIDE RECORDS SUMMARY | 2024-04-29 06:31 | XMS_ITS | CONTINUITY OF CARE DOCUMENT ---
Author Name User, QIE Address [address] [place] [address] Organization [facility] Address [address] [facility] [address] [place] [address] Phone [phone] Care Team Providers Care Die Sinker Name Role Phone User, QIE Unavailable Unavailable PROBLEMS Condition Status Date Provider Notes Organizati on CKD STAGE ESRD ON DIALYSIS GFR <15 active Shakira Jacobs DOWEL SANDER OPERATOR DOWEL SANDER OPERATOR, [address] [place] [address] [facility] VITAL SIGNS Date Observation Value Provider Organization blood pressure, diastolic 58 mm[Hg] Padmaja Das RN RN, [address] [place] [address] [address] [facility] blood pressure, systolic 141 mm[Hg] Padmaja Das RN RN, [address] [place] [address] [address] [facility] respiratory rate E&M 16 /min Padmaja Solares RN RN, [address] [place] [address] [address] [facility] pulse rate 56 /min Padmaja Das RN RN, [address] [place] [address] [address] [facility] blood pressure, site #1 Upper arm Padmaja Das RN RN, [address] [place] [address] [address] [facility] blood pressure, diastolic, right arm 58 mm[Hg] Padmaja Das RN RN, [address] [place] [address] [address] [facility] blood pressure, systolic, right arm 141 mm[Hg] Padmaja Das RN RN, [address] [place] [address] [address] [facility] temperature E&M 98.0 [degF] Padmaja Das RN RN, [address] [facility] [address] [place] [facility] Body Mass Index (Ratio) 19.46 kg/m2 Padmaja Das RN RN, [address] [facility] [address] [facility] [address] [facility] height E&M 62 [in_i] Padmaja Das RN RN, [address] [facility] [address] [place] [address] [facility] weight E&M 106 [lb_av] Padmaja Das RN RN, [address] [facility] [address] [place] [address] [facility] ALLERGIES Allergy Name Onset Date Reaction Criticality Status Provider Organization DIGIFAB itching Low Criticality active Padmaja Das RN RN, [address] [facility] [address] [facility] GATIFLOXACIN nausea Low Criticality active Ginger Lundahl RDMS, RVT RDMS, RVT, [address] [facility] [address] [facility] PRAVASTATIN SODIUM myalgia Low Criticality active Ginger Lundahl RDMS, RVT RDMS, RVT, [address] [facility] [address] [facility] VITEYES OMEGA-3 itching Low Criticality active Ginger Lundahl RDMS, RVT RDMS, RVT, [address] [facility] [address] [facility] OAK rash Low Criticality active Ginger Lundahl RDMS, RVT RDMS, RVT, [address] [facility] [address] [facility] NIACIN itching Low Criticality active Ginger Lundahl RDMS, RVT RDMS, RVT, [address] [facility] [address] [facility] LOSARTAN POTASSIUM itching Low Criticality active Ginger Lundahl RDMS, RVT RDMS, RVT, [address] [facility] [address] [facility] LISINOPRIL rash Low Criticality active Ginger Lundahl RDMS, RVT RDMS, RVT, [address] [facility] [address] [facility] LIPITOR myalgia Low Criticality active Ginger Lundahl RDMS, RVT RDMS, RVT, [address] [place] [address] [facility] HYDROCHLOROTHIAZIDE had significant pruritic rash High Criticality active Ginger Lundahl RDMS, RVT RDMS, RVT, [address] [facility] [address] [facility] GEMFIBROZIL itching Low Criticality active Ginger Lundahl RDMS, RVT RDMS, RVT, [address] [facility] [address] [facility] BUCIO edema Low Criticality active Ginger Lundahl RDMS, RVT RDMS, RVT, [address] [facility] [address] [facility] CATS SOB SOB High Criticality active Ginger Lundahl RDMS, RVT RDMS, RVT, [address] [facility] [address] [facility] ATENOLOL rash Low Criticality active Ginger Lundahl RDMS, RVT RDMS, RVT, [address] [facility] [address] [facility] AMPICILLIN hives Low Criticality active Ginger Lundahl RDMS, RVT RDMS, RVT, [address] [facility] [address] [facility] RESULTS Date Observation Value Provider Organization Refer ence Range Interpretation Location blood glucose, finger stick 161 Padmaja Das RN RN, [address] [facility] [address] [facility] HISTORY OF MEDICATION USE Medication Instructions Status Dates Provider Indications Com ments Organization triamcinolone acetonide 0.1% cream active Tamela Karl , [address] [facility] [address] [facility] sorbitol 70% solution TAKE 30 ML BY MOUTH ONCE A DAY NEEDED FOR CONSTIPATION* active Tamela Karl , [address] [facility] [address] [facility] [address] [facility] senna 8.6 mg tablet take 1-4 tablets by mouth once daily as needed to achieve 2-3 soft bowel movements daily active Tamela Barajas , [address] [facility] [address] [facility] [address] [facility] furosemide 40 mg tablet 1 tablet once a day active [address] [place] [address] [facility] labetalol 300 mg tablet as directed active [address] [facility] [address] [facility] moxifloxacin 0.5% drops as directed active [address] [place] [address] [facility] mupirocin 2% ointment as directed active [address] [facility] [address] [facility] pantoprazole 40 mg tablet,delayed release (DR/EC) 1 tablet twice a day active [address] [facility] [address] [facility] repaglinide 1 mg tablet 1 tablet three times a day active [address] [facility] [address] [facility] TYLENOL WITH CODEINE #3 300-30 MG ORAL TABLET 1-2 tablet every four to six hours as needed completed 05/19 - 04/[address] [facility] [address] [facility] Cipro 500 mg tablet Take 1 tablet by mouth once a day completed 05/19 - 04/[address] [facility] [address] [facility] sodium bicarbonate 650 mg tablet 1 tablet twice a day completed 02/22 - 04/[address] [facility] [address] [facility] labetalol 200 mg tablet 2 tablet twice a day completed 02/22 - 04/[address] [facility] [address] [facility] Levsin 0.125 mg tablet 1-2 tablet every four hours as needed completed 02/22 - 04/[address] [facility] [address] [facility] glipizide 10 mg tablet 2 tablet once a day active 02/22 Ginger Lundahl RDMS, RVT RDMS, RVT, [address] [place] [address] [address] [facility] [address] [facility] ADVAIR DISKUS 250-50 MCG/DOSE INHALATION AEROSOL POWDER BREATH ACTIVATED 1 puff every twelve hours completed 02/22 - 04/[address] [facility] [address] [facility] clonidine HCl 0.2 mg tablet 2 tablet every night active 02/22 Gingermichell Engelahl RDMS, RVT RDMS, RVT, [address] [place] [address] [address] [facility] [address] [facility] cetirizine 10 mg tablet 1 tablet once a day completed 02/22 - 04/[address] [facility] [address] [facility] calcitriol 0.25 mcg capsule 1 capsule once a day completed 02/22 - 04/[address] [facility] [address] [facility] bisacodyl 10 mg suppository once a day completed 02/22 - 04/[address] [facility] [address] [facility] aspirin 81 mg tablet,delayed release (DR/EC) 1 tablet once a day completed 02/22 - 04/[address] [facility] [address] [facility] amlodipine 10 mg tablet 1 tablet twice a day active 02/22 Ginger Engelahl RDMS, RVT RDMS, RVT, [address] [place] [address] [address] [facility] [address] [facility] albuterol sulfate 2.5 mg/3 mL (0.083 %) solution for nebulization Inhale 3 ml every four hours as needed active 02/22 Ginger Lundahl RDMS, RVT RDMS, RVT, [address] [place] [address] [address] [facility] [address] [facility] SOCIAL HISTORY Date Observation Value Provider Organization site on body for surgical procedure brachiobasilic fistula Mahogany Rm MD, MD, [address] [facility] [address] [facility] social history reviewed E&M reviewed - no changes required Padmaja Das RN RN, [address] [facility] [address] [facility] [address] [facility] INSURANCE PROVIDERS Payer name Policy type / Coverage type [employer] ID AMBR[employer] CROSS BLUE SHIELD - BCBS [id number] [id number] MEDICARE [id number] HISTORY OF PROCEDURES Procedure Date Procedure Name Provider Procedure Notes Status Organization SNOMED-CT: [id number] Current Medications Documented Mahogany mR MD, MD, [address] [facility] [address] completed [facility] INJECTION FENTANYL CITRATE 100MCG Mahogany Rm MD, MD, [address] [place] [address] completed [facility] INJECTION MIDAZOLAM HCL PER 1 MG Mahogany Rm MD, MD, [address] [place] [address] completed [facility] Omnipaque-Visipaque Mahogany Rm MD, MD, [address] [facility] [address] completed [facility] Wire Mahogany Rm MD, MD, [address] [place] [address] completed [facility] Balloon Mahogany Rm MD, MD, [address] [place] [address] completed [facility] Sheath Mahogany Rm MD, MD, [address] [place] [address] completed [facility] INFUS NORMAL SALINE SOLUTION 250 CC Mahogany Rm MD, MD, [address] [place] [address] completed [facility] Angioplasty within including RS&I Mahogany Rm MD, MD, [address] [place] [address] completed [facility] Fistulagram, Dialysis Mahogany Rm MD, MD, [address] [place] [address] completed [facility] Antibiotic-No Order Mahogany Rm MD, MD, [address] [place] [address] completed [facility] Quailty Measures all negative Mahogany mR MD, MD, [address] [place] [address] completed [facility] SNOMED-CT:HISTORICAL PNEUMOCOCCAL VACCINATION Mahogany Rm MD, MD, [address] [place] [address] completed [facility] SNOMED-CT:PATIENT ENCOUNTER Mahogany Rm MD, MD, [address] [facility] [address] completed [facility]
--- OUTSIDE RECORDS SUMMARY | 2024-04-29 06:31 | XMS_ITS | Encounter Summary ---
Author Organization [facility] Address [address] [place] [address] Care Team Providers Care Forestry Foreman Name Role Phone Unavailable Primary Care Provider Unavailabl e Encounter Details Date Type Department Care Team (Late st Contact Info) Description 05/24/2015 Historical Ophthalmology RST OPH Eva Heard M.D. [address] [facility] [address] [place] [id number] Social History Tobacco Use Types Packs/Day Years Used Date Smoking Tobacco: Never Assessed Comments Unknown Sex and Gender Information Value Date Recorded Sex Assigned at Not on file Legal Sex Female 10:27 PM MANAGER CRISIS Gender Identity Female 01/08/2022 2:47 PM MANAGER CRISIS Sexual Orientation Straight 01/08/2022 2: 47 PM MANAGER CRISIS documented as of this encounter Progress Notes [...] Saturday. s/p intra-op subconj Dex Seen with MANAGER LAW today Plan: Alternate every 2 hours with [...] diabetic retinopathy, right eye CDM Reports - EYESharalike Id: [id number] Status: Fnl documented in this encounter Plan of Treatment Not on file documented as of this encounter Visit Diagnoses Not on filedocumented in this encounter
--- OUTSIDE RECORDS SUMMARY | 2024-04-29 06:31 | XMS_ITS | Encounter Summary ---
Author Organization [facility] Address [address] [place] [address] Care Team Providers Care Commercial Counsel Name Role Phone Unavailable Primary Care Provider Unavailabl e Encounter Details Date Type Department Care Team (Late st Contact Info) Description 05/12/2015 Historical Ophthalmology RST OPH Frantz Lee M.D. [address] [place] [phone] Social History Tobacco Use Types Packs/Day Years Used Date Smoking Tobacco: Never Assessed Comments Unknown Sex and Gender Information Value Date Recorded Sex Assigned at Not on file Legal Sex Female 10:27 PM WORM PICKER Gender Identity Female 01/08/2022 2:47 PM WORM PICKER Sexual Orientation Straight 01/08/2022 2: 47 PM WORM PICKER documented as of this encounter Progress Notes [...] left eye CDM Reports - EYEGEN Id: [id number] Status: Fnl documented in this encounter Plan of Treatment Not on file documented as of this encounter Visit Diagnoses Not on filedocumented in this encounter
--- OUTSIDE RECORDS SUMMARY | 2024-04-29 06:31 | XMS_ITS | Encounter Summary ---
Author Organization [facility] Address [address] [place] [address] Care Team Providers Care Science Technician Name Role Phone Unavailable Primary Care Provider Unavailabl e Encounter Details Date Type Department Care Team (Late st Contact Info) Description 05/14/2015 Historical Ophthalmology RST OPH Maricruz Garcia M.D. Social History Tobacco Use Types Packs/Day Years Used Date Smoking Tobacco: Never Assessed Comments Unknown Sex and Gender Information Value Date Recorded Sex Assigned at Not on file Legal Sex Female 10:27 PM BUTCHERETTE Gender Identity Female 01/08/2022 2:47 PM BUTCHERETTE Sexual Orientation Straight 01/08/2022 2: 47 PM BUTCHERETTE documented as of this encounter Progress Notes [...] washout 05/13/15 CDM Reports - EYEGEN Id: [id number] Status: Fnl documented in this encounter Plan of Treatment Not on file documented as of this encounter Visit Diagnoses Not on filedocumented in this encounter
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
--- OUTSIDE RECORDS SUMMARY | 2024-04-29 06:31 | XMS_ITS | Encounter Summary ---
Author Organization [facility] Address [address] [place] [address] Care Team Providers Care Real Estate Sales Supervisor Name Role Phone Unavailable Primary Care Provider Unavailabl e Encounter Details Date Type Department Care Team (Late st Contact Info) Description 06/11/2016 Historical Ophthalmology [facility] Deann Colby M.D. [address] [place] [phone] Social History Tobacco Use Types Packs/Day Years Used Date Smoking Tobacco: Never Assessed Comments Unknown Sex and Gender Information Value Date Recorded Sex Assigned at Not on file Legal Sex Female 10:27 PM MANAGER IN HOME Gender Identity Female 01/08/2022 2:47 PM MANAGER IN HOME Sexual Orientation Straight 01/08/2022 2: 47 PM MANAGER IN HOME documented as of this encounter Progress Notes [...] today nearly 1 year after surgery with PRINTING WORKER SUPERVISOR. Exam is stable with 1 loose suture. [...] right eye CDM Reports - EYEGEN Id: [id number] Status: Fnl documented in this encounter Plan of Treatment Not on file documented as of this encounter Visit Diagnoses Not on filedocumented in this encounter
[2024-04-29] MEDS: ONDANSETRON ODT 4 MG TAB PO (06:33)
[2024-04-29] MEDS: OXYCODONE 5 MG TABLET PO (06:51)
[2024-04-29 07:05] LABS: Hematocrit 26.9 % (33.0-51.0); Hemoglobin* 8.4 gm/dL (12.0-16.0); Immature Granulocytes Pct Auto 0.3 %; Lymphocytes Percent Auto 1.1 % (20-44); Mean Corpuscular HGB Conc 31 gm/dL (32-36); Mean Corpuscular Hemoglobin 29 pg (26-34); Mean Corpuscular Volume 92 fL (80-100); Monocytes Percent Auto 3.8 % (0.0-11.0); Neutrophils Percent Auto 94.8 % (42.0-72.0); Platelet Count* 508 K/uL (140-440); RDW Coefficient of Variation % 16.5 % (11.5-15.5); Red Blood Count 2.92 m/uL (4.00-5.20); White Blood Count* 24.08 K/uL (4.50-11.00)
[2024-04-29 07:08] LABS: Slide Review Reflex No
--- NOTE | 2024-04-29 07:27 | CRLHL7_ITS ---
For Patients: As a result of the 21st Century Cures Act, medical imaging exams and procedure reports are released immediately into your electronic medical record. You may view this report before your referring provider. If you have questions, please contact your health care provider. INDICATION: Abdominal distention, abdominal pain. COMPARISON: 11/28/2022 TECHNIQUE: CT of the abdomen and pelvis without intravenous contrast. Multiplanar axial, coronal, and sagittal reformats were reconstructed. Contrast: None. FINDINGS: Lung bases: Diffuse fine centrilobular nodules are similar to the previous exam. Trace left pleural effusion.. Liver: Normal. No mass. Gallbladder and bile ducts: Hyperdense material is very likely excreted contrast in the gallbladder. Pancreas: Not seen. Spleen: Normal spleen size. Adrenal glands: Not well seen. No mass or mass effect. Kidneys: Kidneys are compressed posteriorly. There are several bilateral renal lesions that are not well evaluated on this exam but appear to be largely cystic and have a similar appearance to the previous exam. There is some hyperdensity in the collecting system. No definitive renal calculi. No urinary tract dilation. Urinary bladder: Hyperdense excreted contrast in the bladder. Pelvis: Several large calcified involuted uterine fibroids are similar to the previous exam. Neither adnexa is adequately evaluated. Vessels: Very heavy atherosclerotic vascular calcifications. Bowel: Stomach is fluid distended. Small bowel appears to be compressed. Redundant colon without volvulus. Very large stool burden. Lymph nodes: Can not assess. Peritoneum: Difficult to assess. There is essentially no visceral fat. Abdominal wall: Distended abdomen without bowel containing hernia. Abdominal wall edema. There is very little visceral fat with substantial weight loss since the previous exam. Bones: No fractures. No focal worrisome bone lesions. IMPRESSION: 1. Very large stool burden. No discrete transition or obstruction identified. 2. Since the previous exam there has been a significant reduction in visceral and subcutaneous fat consistent with weight loss. 3. Limited visceral evaluation without contrast, particularly given the very low abdominopelvic fat. 4. Very small left pleural effusion. Diffuse centrilobular lung nodules are similar to prior. 5. Hyperdense excreted contrast in the gallbladder, renal collecting systems, and urinary bladder. No recent comparison CT or MR is available. Please note that all CT scans at this facility use dose modulation, iterative reconstruction, and/or weight-based dosing when appropriate to reduce radiation dose to as low as reasonably achievable. Dictated by Beata Troncoso MD @ 04/29/2024 8:02:47 AM (Electronically Signed)
[2024-04-29 07:32] LABS: PCR FLU A Negative PCR FLU A (Negative); PCR FLU B Negative PCR FLU B (Negative); PCR RSV Negative PCR RSV (Negative); SARS PCR* Negative SARS-CoV-2 (Negative)
--- NOTE | 2024-04-29 07:32 | CRLHL7_ITS ---
For Patients: As a result of the Century Cures Act, medical imaging exams and procedure reports are released immediately into your electronic medical record. You may view this report before your referring provider. If you have questions, please contact your health care provider. INDICATION: Hypoxia TECHNIQUE: Chest 1 view. COMPARISON: 04/04/2024 FINDINGS: Cardiovasculature and mediastinum: Heart size is normal. Unremarkable mediastinum. Lungs and pleural spaces: New opacification of the left lung with mild leftward tracheal deviation. Mild left hemidiaphragm elevation, similar to prior. Improved but persistent moderate airspace disease involving the right lung and right perihilar region. No sign of pleural effusion. No pneumothorax. Bones and soft tissues: Similar aortic arch calcifications. IMPRESSION: New left lung collapse, possibly postobstructive in the setting of malignancy. Improved but persistent moderate airspace disease involving the right lung and right perihilar region. Dictated by Florence Handy MD @ 04/29/2024 8:10:49 AM (Electronically Signed)
[2024-04-29 07:45] LABS: Chloride* 91 mmol/L (96-114)
[2024-04-29 07:46] LABS: Potassium* 5.7 mmol/L (3.6-5.1); Sodium* 129 mmol/L (135-149)
[2024-04-29 07:48] LABS: Bilirubin Total* 1.8 mg/dL (0.1-1.5); Blood Urea Nitrogen* 93 mg/dL (7-30); Creatinine* 8.6 mg/dL (0.5-1.5); Est. Creatinine Clearance* 3.39; Estimated Glomerular Filt Rate 4 ml/min
[2024-04-29 07:49] LABS: Alanine Aminotransferase* 17 U/L (4-35); Alkaline Phosphatase* 159 U/L (40-150); Anion Gap 21 mEq/L (7-15); Aspartate Amino Transferase* 22 U/L (12-35); Calcium* 9.2 mg/dL (8.4-10.6); Carbon Dioxide* 17 mmol/L (20-32); Glucose* 217 mg/dL (60-115); Lipase* 258 U/L (23-300); Total Protein* 7.8 g/dL (6.0-8.3)
[2024-04-29 07:52] LABS: C Reactive Protein* 8.7 mg/dL (0.5-1.0)
[2024-04-29 08:03] LABS: Lactate* 1.5 mmol/L (0.5-1.9)
[2024-04-29] MEDS: ERTAPENEM 1 GM in 0.9 % SODIUM CHLORIDE Mini-bag 100 ML IVPB (08:45)
[2024-04-29] MEDS: HYDROmorphone 0.5 mg/0.5 ml inj IVP ×2 (08:45→10:10)
== END 2024-04-29 10:32 | disposition other institution (70) ==
PROVIDERS: Emergency Provider Family Medicine; PCP Family Medicine
DX: R10.9 Unspecified abdominal pain (principal); N18.9 Chronic kidney disease, unspecified; C34.90 Malignant neoplasm of unspecified part of unspecified bronchus or lung; R06.89 Other abnormalities of breathing
CPT/HCPCS: 36415; 71045; 74176; 80053; 83605; 83690; 85025; 86140; 87040; 87631; 93005; 94761; 96365; 96375; 99284; 99285; A9270; J1171; J1335; J1939

== ENCOUNTER 2024-04-29 10:25 | Outpatient (CLI) | payer MEDICARE, SELFPAY ==
--- NOTE | 2024-05-04 15:15 | ONC.NURNOTE ---
New consult planning: reviewed records with Dr Dailey PET and MRI brain needed to complete staging [facility]- consult team will contact Enrique about setting up the PET - patient had canceled one appt and was a no show for another appt
== END 2024-04-29 10:26 | disposition home or self-care (01) ==
LOC: AMB 15:24
PROVIDERS: PCP Family Medicine; Visit Provider Family Medicine
DX: R10.9 Unspecified abdominal pain (principal); N18.9 Chronic kidney disease, unspecified; C34.90 Malignant neoplasm of unspecified part of unspecified bronchus or lung
CPT/HCPCS: A0425; A0433

== ENCOUNTER 2024-05-25 18:30 | Outpatient (CLI) | payer MEDICARE, SELFPAY | END 2024-05-25 18:31 | disposition home or self-care (01) | LOC: AMB 05-27 09:55 | PROVIDERS: PCP Family Medicine; Visit Provider Student in an Organized Health Care Education/Training Program | DX: R41.82 Altered mental status, unspecified (principal) | CPT/HCPCS: A0425; A0429 ==

== ENCOUNTER 2024-05-25 18:58 | Emergency (ER) | payer MEDICARE, SELFPAY ==
[2024-05-25] VITALS (61 sets, daily range): BP systolic 159–241; BP diastolic 62–128; PULSE 68–90; RESP 6–25; TEMP 36.7; O2SAT 87–100
--- OUTSIDE RECORDS SUMMARY | 2024-05-25 19:00 | XMS_ITS | Encounter Summary ---
Author Organization [facility] Address [address] [place] [address] Care Team Providers Care Food Dehydrator Operator Name Role Phone Tyrell Schneider Primary Care Provider [phone] Encounter Details Date Type Department Care Team [...] on filedocumented in this encounter Care Teams Food Dehydrator Operator Relationship Specialty Start Date End Date Tyrell Schneider [address] [place] [address] PCP - General Family Medicine 02/19/23 documented as of this encounter
--- OUTSIDE RECORDS SUMMARY | 2024-05-25 19:00 | XMS_ITS | Clinical Summary ---
Author Organization [facility] Address [address] [place] [address] Care Team Providers Care Mail Processing Equipment Mechanic Name Role Phone Tyrell Schneider Bulmaro Primary Care Provider [phone] Allergies Active Allergy Reactions Criticality Noted Date [...] 01/09/2010 itching Niacin Rash,Itching Low 05/13/2006 itch [place] Rash Low 05/16/2010 Oxycodone Nausea and [...] daily 09/26/19 23 Active neomycin-polymyx in-dexAMETHasone (MAXITROL) 3.5-53477-0.[address] 0.25 inches Into the [...] PM CDT - 04/27/2024 8:51 PM CDT [facility] Emergency Dept [address] [place] [address] Jason Tapia MD Left-sided chest pain; Mass of upper lobe of left lung Discharge Disposition: Home or Self Care 04/27/[address] [facility] [address] [place] [phone] Emanuel Lozano MD 04/27/2024 Travel from Last [...] CDT RENAL PANEL Routine 12/18/2022 8:45 AM GLASS INSTALLER TECHNICIAN OCCULT BLOOD STOOL STAT 12/12/2022 11 :03 PM CDT from Last 3 Months or Most Recently Relevant to Health Maintenance Results * (ABNORMAL) Troponin T, High Sensitivity (04/27/2024 6:12 PM CDT) Only the most recent of3 resultswithin the time period is included. Pathologist [facility] Troponin T, High Sensitivity 137(HH) <=14 ng/L [...] MD LAB - BLOOD ORDERABLES Final Result [facility] Care Lab [address] [facility] Lab (1st floor, no room number) [place] [address] * CT Chest Pulmonary Embolism w Contrast (04/27/2024 5:45 PM CDT) Anatomical Region Laterality Modality Chest, SUBRAD CT BODY, UMP CT CHEST Computed Tomography 04/27/2024 5:45 PM CDT Addenda Addendum by Robin Abreu MD on 05/01/2024 2:31 PM CDT CLINICAL ADDENDUM: Clinical information in this report has been modified from the previous version as follows: After chart review, 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 While no distinct lesions are seen in this area, it could be obscured by surrounding atelectatic lung. Comparison with prior exam would be helpful if available. Right upper lobe mass could represent metastatic disease versus second synchronous primary. END ADDENDUM Impressions 04/27/2024 6:15 PM CDT IMPRESSION: 1. [...] CT CHEST PULMONARY EMBOLISM W CONTRAST LOCATION: [facility] DATE: 04/27/2024 INDICATION: Chest pain, elevated d-dimer [...] CT CHEST PULMONARY EMBOLISM W CONTRAST LOCATION: [facility] DATE: 04/27/2024 INDICATION: Chest pain, elevated d-dimer [...] 1.8 cm in short axis (series 6 [id number]) and left prevascular node measuring 1.2 cm [...] No pulmonary embolism. us Jason Tapia MD IM CT ORDERABLES Edite d Result - Final * US Lower Extremity Venous Duplex Right (04/27/2024 5:05 PM CDT) Anatomical Region Laterality Modality Lower Extremity Ultrasound 04/27/2024 5:05 PM CDT Impressions 04/27/2024 5:13 PM CDT IMPRESSION: 1. No deep venous thrombosis in the right lower extremity. 2. Anechoic avascular fluid collection right groin. Narrative 04/27/2024 5:13 PM CDT EXAM: US LOWER EXTREMITY VENOUS DUPLEX RIGHT LOCATION: [facility] DATE: 04/27/2024 INDICATION: RLQ pain, no trauma [...] US LOWER EXTREMITY VENOUS DUPLEX RIGHT LOCATION: [facility] DATE: 04/27/2024 INDICATION: RLQ pain, no trauma [...] BPM MUSE Atrial Rate 69 BPM MUSE PA Interval 178 ms MUSE QRS Duration 82 ms MUSE QT 394 ms MUSE QTc 422 ms MUSE P Basin 75 degrees MUSE R AXIS 24 degrees MUSE T Basin 80 degrees MUSE Interpretation ECG Sinus rhythm Minimal voltage criteria for LVH, may be normal variant ( Bennie product ) Borderline ECG When compared with ECG of 27-Apr-2024 14:32, (unconfirmed) No significant change was found Unconfirmed report - interpretation of this ECG is computer generated - see medical record for final interpretation Confirmed by - EMERGENCY ROOM, PHYSICIAN ([id number]), script editor Song Cheung ([id number]) on 04/27/2024 3:21:42 PM MUSE 04/27/2024 2:47 PM CDT 04/27/2024 3:21 PM CDT us Emanuel Lozano MD ECG ORDERABLES Edited Result - Final MUSE * Extra Red Top Tube (04/27/2024 1:53 PM CDT) Hold Specimen [facility] 04/27/2024 3:01 PM CDT [facility] Blood BLOOD SPECIMEN / Unknown Venipuncture / Unknown 04/27/2024 1:53 PM CDT 04/27/2024 1:56 PM CDT Jason Tapia MD LAB - BLOOD ORDERABLES Final Result [facility] Lab [address] Lab (1st floor, no room number) [place] [address] * Extra Blue Top Tube (04/27/2024 1:53 PM CDT) Hold Specimen [facility] 04/27/2024 3:01 PM CDT LABORATORY Blood BLOOD SPECIMEN / Unknown Venipuncture / Unknown 04/27/2024 1:53 PM CDT 04/27/2024 1:56 PM CDT Jason Tapia MD LAB - BLOOD ORDERABLES Final Result [facility] Lab [address] Lab (1st floor, no room number) [place] [address] * (ABNORMAL) CBC with platelets and differential (04/27/2024 1:53 PM CDT) Pathologist [facility] WBC Count 14.2(H) 4.0 - 11.0 [...] LAB - BLOOD ORDERABLES Final Result LABORATORY [facility] Acute Care Lab [address] Lab (1st floor, no room number) [place] [address], [facility] * (ABNORMAL) D dimer quantitative (04/27/2024 1:53 [...] out pulmonary embolism: The ADJUST-PE Study. REGINA 2014;311:7565-2164.; ASAF Le et al. Diagnostic accuracy of conventional or age adjusted D-dimer cutoff values in older patients with suspected venous thromboembolism. Systemic review and meta-analysis. BMJ 2013:346:f2492. us Jason Tapia MD LAB - BLOOD ORDERABLES Final Result [facility] Lab [address] Lab (1st floor, no room number) [place] [address], [facility] * (ABNORMAL) Comprehensive metabolic panel (04/27/2024 1:53 PM CDT) Sodium 129(L) 135 - 145 mmol/L 04/27/2024 2:26 PM CDT [facility] Potassium 4.6 3.4 - 5.3 mmol/L 04/27/2024 2:26 PM CDT [facility] Carbon Dioxide (CO2) 22 22 - 29 mmol/L 04/27/2024 2:26 PM CDT [facility] Anion Gap 17(H) 7 - 15 mmol/L 04/27/2024 2:26 PM CDT [facility] Urea Nitrogen 71.0(H) 8.0 - 23.0 mg/dL 04/27/2024 2:26 PM CDT [facility] Creatinine 6.37(H) 0.51 - 0.95 mg/dL 04/27/2024 2:26 PM CDT [facility] GFR Estimate 6(L) >60 mL/min/1.7 3m2 04/27/2024 2:26 PM CDT [facility] Comment:eGFR calculated us2020 CKD-EPI equation. Calcium 9.0 8.8 - 10.4 mg/dL 04/27/2024 2:26 PM CDT [facility] Chloride 90(L) 98 - 107 mmol/L 04/27/2024 2:26 PM CDT [facility] Glucose 232(H) 70 - 99 mg/dL 04/27/2024 2:26 PM CDT [facility] Alkaline Phosphatase 132 40 - 150 U/L 04/27/2024 2:26 PM CDT [facility] AST 18 0 - 45 U/L 04/27/2024 2:26 PM CDT [facility] ALT 15 0 - 50 U/L 04/27/2024 2:26 PM CDT [facility] Protein Total 7.1 6.4 - 8.3 g/dL 04/27/2024 2:26 PM CDT [facility] Albumin 3.2(L) 3.5 - 5.2 g/dL 04/27/2024 2:26 PM CDT LABORATORY Bilirubin Total 0.2 <=1.2 mg/dL 04/27/2024 2:26 PM CDT LABORATORY Blood BLOOD SPECIMEN / Unknown Venipuncture / Unknown 04/27/2024 1:53 PM CDT 04/27/2024 1:56 PM CDT us Jason Tapia MD LAB - BLOOD ORDERABLES Final Result [facility] Lab [address] Lab (1st floor, no room number) [place] [address], [facility] * (ABNORMAL) Renal panel (12/18/2022 8:45 AM GLASS INSTALLER TECHNICIAN) Sodium 135 135 - 145 mmol/L 12/18/2022 9:44 AM [facility] Comment:Reference intervals for this test were updated on 11/06/2022 to more accurately reflect our healthy population. There may be differences in the flagging of prior results with similar values performed with this method. Interpretation of those prior results can be made in the context of the updated reference intervals. Potassium 4.2 3.4 - 5.3 mmol/L 12/18/2022 9:44 AM [facility] Chloride 99 98 - 107 mmol/L 12/18/2022 9:44 AM [facility] Carbon Dioxide (CO2) 29 22 - 29 mmol/L 12/18/2022 9:44 AM [facility] Anion Gap 7 7 - 15 mmol/L 12/18/2022 9:44 AM [facility] Glucose 128(H) 70 - 99 mg/dL 12/18/2022 9:44 AM [facility] Urea Nitrogen 17.7 8.0 - 23.0 mg/dL 12/18/2022 9:44 AM [facility] Creatinine 2.67(H) 0.51 - 0.95 mg/dL 12/18/2022 9:44 AM [facility] GFR Estimate 18(L) >60 mL/min/1. 73m2 12/18/2022 9:44 AM [facility] Calcium 7.6(L) 8.8 - 10.2 mg/dL 12/18/2022 9:44 AM GLASS INSTALLER TECHNICIAN LABORATORY Albumin 2.6(L) 3.5 - 5.2 g/dL 12/18/2022 9:44 AM GLASS INSTALLER TECHNICIAN LABORATORY Phosphorus 2.3(L) 2.5 - 4.5 mg/dL 12/18/2022 9:44 AM GLASS INSTALLER TECHNICIAN LABORATORY Blood STRUCTURE OF RIGHT UPPER LIMB / Unknown Venipuncture / Unknown 12/18/2022 8:45 AM GLASS INSTALLER TECHNICIAN 12/18/2022 8:50 AM GLASS INSTALLER TECHNICIAN us David Treviño MD LAB - BLOOD ORDERABLES Final Res ult [facility] Lab [email or web address] Lab (1st floor, no room number) [place] [address], [facility] [phone] * Stool: occult blood (12/12/2022 11:03 PM CDT) Occult Blood Negative Negative JENNIFER 12/12/2022 11:32 PM CDT LABORATORY Stool RECTAL CONTENTS / Unknown Non-blood Collection / Unknown 12/12/2022 11:03 PM CDT 12/12/2022 11:11 PM CDT us Jason Tapia MD LAB - STOOLS ORDERABLES Final Result [facility] Lab [email or web address] Lab (1st floor, no room number) [place] [address], [facility] [phone] from Last 3 Months or Most Recently Relevant to Health Maintenance Insurance [employer] MEDICARE ADVANTAGE [employer] ADVANTAGE Advance Directives For more information, please contact: [phone] * Full Code (Latest Code Status on [...] patie nt/ legal decision maker Care Teams Mail Processing Equipment Mechanic Relationship Specialty Start Date End Date Tyrell Schneider [address] [place] [address] PCP - General Family Medicine 02/19/23
--- OUTSIDE RECORDS SUMMARY | 2024-05-25 19:00 | XMS_ITS | Encounter Summary ---
Author Organization [facility] Address [address] [place] [address] Care Team Providers Care Conservation Of Resources Commissioner Name Role Phone Schneider, Tyrell Bulmaro Primary Care Provider [phone] Reason for Visit * Reason Comments Chest Pain Encounter Details Date Type Department Care Team (Late st Contact Info) Description 04/27/2024 1:37 PM CDT - 04/27/2024 8:51 PM CDT Emergency [facility] Emergency Dept [address] [place] [address] Jason Tapia MD [facility] [address] [place], [place] [address] Left-sided chest pain; Mass of upper lobe [...] CDT Follow-up with the cancer clinic in [place] as you already plan to do Use Tylenol for pain or discomfort * Attachments The following attachments cannot be sent through Care Everywhere. * Chest Pain (Citizen [place]) documented in this encounter [...] tablet by mouth daily neomycin-polymyxi n-dexAMETHasone (MAXITROL) 3.5-54684-7.[address] 0.25 inches Into the [...] of end-stage renal disease normally dialyzes in [place]. Did not dialyze today which would have [...] multivitamin RENAL (RENAVITE RX/NEPHROVITE) 1 tablet tablet fxgjkmcl-vxlnwfgsl-pasICUCHoddju (MAXITROL) 3.5-15782-8.1 ophthalmic ointment nicotine (NICODERM CQ) 14 MG/24HR [...] Pressure Ventricular Rate 75 Atrial Rate 75 WA Interval 178 QRS Duration 86 QT 394 QTc 439 P [place] 81 R AXIS 44 T [place] 91 Interpretation ECG Sinus rhythm Normal ECG [...] prolonged, 1833 Lung biopsy April 07, 2024 [facility] was positive for malignancy, squamous cell carcinoma. Social Determinants of Health affecting care: Disposition: discharge Impression & Plan [facility] Diagnoses: MIPS (If applicable): Medical Decision Making: [...] follow-up with her PCP and oncology in [place]. She was comfortable and agreeable with that [...] pharmacist at primary pharmacy Changes made to CABLE INSPECTOR medication list: Added: calcium acetate, hydralazine, losartan, methocarbamol, nifedipine, spironolactone, Breo inhaler, Albuterol inhaler Deleted: senna, sorbitol, Incruse inhaler, miralax, labetalol, cetirizine, amlodipine Changed: nicotine patch (21 mg --> 14 mg) Allergies reviewed with patient and updates made in EHR: no Medication History Completed By: Tony Alcantar RPH 04/27/2024 5:16 PM CABLE INSPECTOR Med List Medication Sig Note Last Dose/Taking [...] 1 tablet by mouth daily Past Week npdlrhap-thmuyiocc-ljuQREPCdtrfd (MAXITROL) 3.5-11106-7.[address] 0.25 inches Into the [...] MD LAB - BLOOD ORDERABLES Final Result [facility] Acute Care Lab [address] Lab (1st floor, no room number) [place] [address], [facility] * CT Chest Pulmonary Embolism w [...] PULMONARY EMBOLISM W CONTRAST LOCATION: [facility] DATE: 04/27/2024 INDICATION: Chest pain, [...] PULMONARY EMBOLISM W CONTRAST LOCATION: [facility] DATE: 04/27/2024 INDICATION: Chest pain, [...] 1.8 cm in short axis (series 6 [id number]) and left prevascular node measuring 1.2 cm [...] us Jason Tapia MD IMG CT ORDERABLES Edite d Result - Final [...] EXTREMITY VENOUS DUPLEX RIGHT LOCATION: [facility] DATE: 04/27/2024 INDICATION: RLQ pain, [...] EXTREMITY VENOUS DUPLEX RIGHT LOCATION: [facility] DATE: 04/27/2024 INDICATION: RLQ pain, [...] fluid collection right groin. Jason Tapia MD [facility] US ORDERABLES Final Result * (ABNORMAL) Troponin T, High Sensitivity (04/27/2024 3:52 PM CDT) [facility] Troponin T, High Sensitivity 144(HH) <=14 ng/L [...] - BLOOD ORDERABLES Final Result [facility] LABORATORY [facility] Acute Care Lab [address] Lab (1st floor, no room number) [place] [address], [facility] * (ABNORMAL) D dimer quantitative (04/27/2024 1:53 PM CDT) Pathologist [facility] D-Dimer Quantitative 4.13(H) 0.00 - 0.50 ug/mL [...] out pulmonary embolism: The ADJUST-PE Study. REGINA 2014;311:8631-6127.; ASAF Le et al. Diagnostic accuracy of conventional or age adjusted D-dimer cutoff values in older patients with suspected venous thromboembolism. Systemic review and meta-analysis. BMJ 2013:346:f2492. us Jason Tapia MD LAB - BLOOD ORDERABLES Final Result [facility] Care Lab [address] Lab (1st floor, no room number) [address] * Extra Red Top Tube (04/27/2024 1:53 PM CDT) Hold Specimen [facility] 04/27/2024 3:01 PM CDT [facility] LAB[facility] Blood BLOOD SPECIMEN / Unknown Venipuncture / Unknown 04/27/2024 1:53 PM CDT 04/27/2024 1:56 PM CDT Jason Tapia MD LAB - BLOOD ORDERABLES Final Result Performing Organization Address City/[facility]/ZIP Co de Phone Number [facility] Lab [address] Lab (1st floor, no room number) [address] * Extra Blue Top Tube (04/27/2024 1:53 PM CDT) Hold Specimen [facility] 04/27/2024 3:01 PM CDT [facility] LAB[facility] Blood BLOOD SPECIMEN / Unknown Venipuncture / Unknown 04/27/2024 1:53 PM CDT 04/27/2024 1:56 PM CDT Jason Tapia MD LAB - BLOOD ORDERABLES Final Result [facility] Care Lab [address] Lab (1st floor, no room number) [address] * (ABNORMAL) CBC with platelets and differential (04/27/2024 1:53 PM CDT) Pathologist [facility] WBC Count 14.2(H) 4.0 - 11.0 10e3/uL [...] 0.1 <=0.4 10e3/uL 04/27/2024 1:59 PM CDT LABORATORY Absolute NRBCs 0.0 10e3/uL 04/27/2024 1:59 PM CDT LABORATORY Blood BLOOD SPECIMEN / Unknown Venipuncture / Unknown 04/27/2024 1:53 PM CDT 04/27/2024 1:56 PM CDT Jason Tapia MD LAB - BLOOD ORDERABLES Final Result Performing Organization Address City/[facility]/ZIP Co de Phone Number [facility] Lab [address] Lab (1st floor, no room number) [place] [address] * (ABNORMAL) Troponin T, High Sensitivity (04/27/2024 1:53 PM CDT) [facility] Troponin T, High Sensitivity 135(HH) <=14 ng/L [...] MD LAB - BLOOD ORDERABLES Final Result [facility] Lab [address] Lab (1st floor, no room number) [place] [address] * (ABNORMAL) Comprehensive metabolic panel (04/27/2024 [...] 0.2 <=1.2 mg/dL 04/27/2024 2:26 PM CDT RH LABORATORY Blood BLOOD SPECIMEN / Unknown Venipuncture / Unknown 04/27/2024 1:53 PM CDT 04/27/2024 1:56 PM CDT us Jason Tapia MD LAB - BLOOD ORDERABLES Final Result [facility] Acute Care Lab [address] Lab (1st floor, no room number) [place] [address], [facility] documented in this encounter Visit Diagnoses Diagnosis [...] cloNIDine (CATAPRES) tablet 0.1 mg 0.1 mg (0.65123 mg/kg), Oral, ONCE, On Sat04/27/24 at 1510, [...] (CATAPRES) tablet 0.1 mg (COMPLETED) 0.1 mg (0.58826 mg/kg), Oral, ONCE, On Sat04/27/24 at 1510, [...] RN) documented in this encounter Care Teams Conservation Of Resources Commissioner Relationship Specialty Start Date End Date Tyrell Schneider [address] [place] [address] PCP - General Family Medicine 02/19/23 documented as of this encounter
--- OUTSIDE RECORDS SUMMARY | 2024-05-25 19:00 | XMS_ITS ---
Author Name Toni, Clinic Address [address] [place] [address] Phone [phone] Organization [facility] e, NA DOCUMENT DISCLAIMER Multiple document versions may exist, please be sure you review the latest version. The information in the [facility], [place] Continuity of Care Document represents a summary of certain health and medical information. It may not contain the complete medical history for the patient and should be independently verified. The represented time in the document is Eastern Time. 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 Gender and Sex Information Gender Identity Sexual Orientation No Information Available No Information Available MEDICATIONS Prescribed Medications for Dialysis Treatments Medication Instructions Dosage Route Start Date End Date Stat Clonidine HCl PRN 0.1 mg Oral JanuaryJanuary 27, 2025 Active Heparin Sodium (Porcine) 1,000 Units/mL Systemic Intermittent mid run, Every Treatment, Total treatment minutes 165 2000 units Intravenous - push April 01, 2024 March 31, 2025 Active Heparin Sodium (Porcine) 1,000 Units/mL Systemic Bolus, Every Treatment, Total treatment minutes 165 2000 units Intravenous - push January 29, 2024 January 27, 2025 Active Mircera During Dialysis, Every 2 weeks 150 mcg Intravenous - push May 20, 2024 May 19, 2025 Active Vitamin D (Calcitriol) Oral 3X Week 0.25 mcg Oral May 18, 2024 May 17, 2025 Active Home Medications Medication Instructions Dosage Route Start Date End Date Stat Advair Diskus 250-50 mcg/dose INHALATION May 13, 2024 Active albuterol sulfate 2.5 mg/3 mL (0.083 %) Take as directed every four hours as needed 1 vial INHALATION April 21, 2018 Active B complex-vitamin C-folic acid 1 mg by mouth once a day ORAL April 20, 2024 Active Shania Low Dose Aspirin 81 mg Take by mouth once a day 1 tablet ORAL March 06, 2023 Active Calcium Acetate 667 mg Take By Mouth Three times a day With Meals 2 Capsule By Mouth May 16, 2024 March 13, 2025 Active Calcium Acetate 667 mg Take By Mouth Three times a day With Meals 3 Capsule By Mouth March 13, 2024 March 13, 2025 Active clonidine HCl 0.1 mg Take by mouth every morning 3 tablet ORAL April 20, 2024 Active clonidine HCl 0.1 mg ORAL May 13, 2024 Active Cozaar 50 mg once a day ORAL April 20, 2024 Active furosemide 40 mg Take by mouth once a day as directed 1 tablet ORAL February 17, 2020 Active glipizide 10 mg Take by mouth once a day 2 tablet ORAL April 21, 2018 Active hydralazine 100 mg Take by mouth three times a day ORAL April 20, 2024 Active magnesium glycinate 100 mg magnesium ORAL April 06, 2024 Active methocarbamol Unknown April 20, 2024 Active Miralax 17 gram Take dissolved in [...] 1 patch TRANSDERMAL February 24, 2024 Active Norvasc 10 mg ORAL March Active oxycodone 5 mg Take by mouth [...] Sign Value Date / Time Blood Pressure-sitting 193/96 mmHg May 22, 2024 12:11 PM Blood Pressure-standing 212/92 mmHg May 12:11 PM Heart Rate 93 beats per minute May 22 12:11 PM Respiratory Rate 16 breaths per minute May 22, 2024 12:11 PM Temperature 97.3 deg. F May 22, 2024 1 2:11 PM Weight Vital Sign Value Date / Time Estimated Dry Weight 36.7 kg April 17 025 11:59 PM Pre-Dialysis 38.30 kg May 22, 2024 1 2:11 PM Post-Dialysis 36.10 kg May 22, 2024 1 2:11 PM Other Other Value Date / Time Height 152.4 cm February 14, 2022 12:00 AM Body Mass Index 15.88 kg/m2 May 15, 2024 0 3:43 PM LAB RESULTS Hematology Result Type Result Value Relevant Referen ce Range Interpretation Date UIBC (Calc) 164 mcg/dL 155 - 355 mcg/dL - 2023 TIBC 239 mcg/dL 185 - 515 mcg/dL - December 18, 2023 Transferrin Sat. (Calc) 31 % 20 - 55 % - December 17 4 Ferritin 1491 ng/mL 10 - 291 ng/mL High December WBC (No Diff) 10.25 1000/mcL 4.80 - 10.80 1000/mcL - December 18, 2023 Neutrophils 82.5 % 40.0 - 75.0 % High December Platelets 275 1000/mcL 130 - 400 1000/mcL - Dece [id number] UIBC (Calc) 204 mcg/dL 155 - 355 mcg/dL - 2023 TIBC 255 mcg/dL 185 - 515 mcg/dL - January 22, 2024 Transferrin Sat. (Calc) 20 % 20 - 55 % - January 21 4 Ferritin 1551 ng/mL 10 - 291 ng/mL High January 112023 Neutrophils 67.5 % 40.0 - 75.0 % - January 112023 WBC (No Diff) 4.50 1000/mcL 4.80 - 10.80 1000/mcL Low January 22, 2024 Neutrophils 80.6 % 40.0 - 75.0 % High February Platelets 278 1000/mcL 130 - 400 1000/mcL - Alvarez richie 2024 WBC (No Diff) 8.27 1000/mcL 4.80 - 10.80 1000/mcL - February 19, 2024 UIBC/TIBC 167 mcg/dL 155 - 355 mcg/dL - February 24, 2024 Hemoglobin x 3 29.7 % 36.0 - 48.0 % Low February 26, 2024 Hemoglobin x 3 28.5 % 36.0 - 48.0 % Low March 04, 2024 Hemoglobin x 3 28.8 % 36.0 - 48.0 % Low March 11, 2024 Neutrophils 81.4 % 40.0 - 75.0 % High March Hemoglobin x 3 29.4 % 36.0 - 48.0 % Low 2024 Platelets 299 1000/mcL 130 - 400 1000/mcL - [id number] MCHC 32.1 g/dL 30.0 - 36.0 g/dL - March 18, 2024 RDW 18.7 % 11.5 - 14.5 % High March WBC (No Diff) 9.97 1000/mcL 4.80 - [...] Lymphocytes 7.2 % 19.0 - 48.0 % Low March JUANITO 1.4 % 0.0 - 4.0 % - March 18, 2024 Basophils 0.1 % 0.0 - 1.5 % - March 18, 2024 Eosinophil 4.4 % 0.0 - 7.0 % - March 18, 2024 Monocytes 5.5 % 3.0 - 10.0 % - March 18, 2024 Hemoglobin x 3 30.9 % 36.0 - 48.0 % Low 2024 Hemoglobin x 3 25.5 % 36.0 - 48.0 % Low April Hemoglobin x 3 21.6 % 36.0 - 48.0 % Low April Platelets 346 1000/mcL 130 - 400 1000/mcL - Alfonzo h 2024 MCH 28.6 pg 27.0 - 31.0 pg - April 15, 2024 MCHC 31.5 g/dL 30.0 - 36.0 g/dL - April RDW 18.5 % 11.5 - 14.5 % High April 15, 2 025 Iron 78 mcg/dL 30 - 160 mcg/dL - April 15, 2024 UIBC (Calc) 159 mcg/dL 155 - 355 mcg/dL - April TIBC 237 mcg/dL 185 - 515 mcg/dL - April Transferrin Sat. (Calc) 33 % 20 - 55 % - April 15, 2024 Eosinophil 1.2 % 0.0 - 7.0 % - April 15 Basophils 0.2 % 0.0 - 1.5 % - April 15 JUANITO 1.5 % 0.0 - 4.0 % - April 15 WBC (No Diff) 22.35 1000/mcL 4.80 - 10.80 1000/mcL High April 15, 2024 Neutrophils 87.9 % 40.0 - 75.0 % High April 15, 2024 Lymphocytes 3.8 % 19.0 - 48.0 % Low April 15, 2024 Monocytes 5.4 % 3.0 - 10.0 % - April 15 Hemoglobin x 3 19.8 % 36.0 - 48.0 % Low April 112024 HCT 27.3 % 37.0 - 47.0 % Low May 13 WBC (No Diff) 20.65 1000/mcL 4.80 - 10.80 1000/mcL High May 13, 2024 RBC 2.92 mill/mcL 4.20 - 5.40 mill/mcL Low May 13, 2024 Basophils 0.3 % 0.0 - 1.5 % - May 13 JUANITO 0.8 % 0.0 - 4.0 % - May 13 Monocytes 3.5 % 3.0 - 10.0 % - May 13 Eosinophil 1.0 % 0.0 - 7.0 % - May 13 MCH 28.3 pg 27.0 - 31.0 pg - May 13, 2024 MCHC 30.2 g/dL 30.0 - 36.0 g/dL - May Lymphocytes 2.1 % 19.0 - 48.0 % Low May 13, 2024 Neutrophils 92.3 % 40.0 - 75.0 % High May 13, 2024 Platelets 381 1000/mcL 130 - 400 1000/mcL - Apri 2024 HGB 8.2 g/dL 12.0 - 16.0 g/dL Low May Hemoglobin x 3 24.6 % 36.0 - 48.0 % Low May Transferrin Sat. (Calc) 14 % 20 - 55 % Low May 13, 2024 TIBC 184 mcg/dL 185 - 515 mcg/dL Low May UIBC (Calc) 158 mcg/dL 155 - 355 mcg/dL - May RDW 16.9 % 11.5 - 14.5 % High May 13 Iron 26 mcg/dL 30 - 160 mcg/dL Low May 13, 2024 Hemoglobin x 3 24.3 % 36.0 - 48.0 % Low May HGB 8.1 g/dL 12.0 - 16.0 g/dL Low May Metabolic/Renal Result Type Result Value Relevant Referen ce Range Interpretation Date Vitamin B12 536 pg/mL 211 - 911 pg/mL - December 18, 2023 BUN 59 mg/dL 6 - 19 mg/dL [...] % 65 - 80 % High March 18 025 BUN 76 mg/dL 6 - 19 mg/dL High April 15 Creatinine, Serum 5.36 mg/dL 0.60 - 1.30 mg/dL High April 15, 2024 Chloride 101 mEq/L 96 - 108 mEq/L - April 15, 2024 Bicarbonate 20 mEq/L 20 - 31 mEq/L - April 15, 2024 BUN/Creat Ratio 14.2 10.0 - 20.0 - April Sodium 136 mEq/L 136 - 145 mEq/L - April 15, 2024 Potassium 5.4 mEq/L 3.5 - 5.1 mEq/L High April 15, 2024 BUN, Post 12 mg/dL 6 - 19 mg/dL - April 15 URR, Calc 84 % 65 - 80 % High April 15, 2024 BUN 57 mg/dL 6 - 19 mg/dL High May 13 BUN/Creat Ratio 11.4 10.0 - 20.0 - May Creatinine, Serum 5.02 mg/dL 0.60 - 1.30 mg/dL High May 13, 2024 Potassium 5.3 mEq/L 3.5 - 5.1 mEq/L High May 13, 2024 Sodium 135 mEq/L 136 - 145 mEq/L Low May 13, 2024 Bicarbonate 24 mEq/L 20 - 31 mEq/L - May 13, 2024 Chloride 100 mEq/L 96 - 108 mEq/L - May 13, 2024 URR, Calc 79 % 65 - 80 % - May 13, 2024 BUN, Post 12 mg/dL 6 - 19 mg/dL - May 13 HD Adequacy Result Type Result Value [...] ge Provided - March 18, 2024 spKt/V Gotch 2.13 No Reference Ran ge Provided - April 15, 2024 spKt/V (Daugirdas II) 2.14 No Reference Range Provided - April 15, 2024 wstdKt/V 1.8 No Reference Ran ge Provided - April 15, 2024 Krt/V 0.00 No Reference Ran ge Provided - April 15, 2024 wstdKt/V, residual 0.0 No Reference Range Provided - April 15, 2024 wstdKt/V without residual 1.8 No Reference Range Provided - April 15, 2024 eKt/V ([place]) 1.77 No Reference Range Provided - April 15, 2024 eKt/V ([place]) 1.64 No Reference Range Provided - May 13, 2024 wstdKt/V, residual 0.0 No Reference Range Provided - May 13, 2024 Krt/V 0.00 No Reference Ran ge Provided - May 13, 2024 spKt/V (Daugirdas II) 1.99 No Reference Range Provided - May 13, 2024 wstdKt/V 2.7 No Reference Ran ge Provided - May 13, 2024 wstdKt/V without residual 2.7 No Reference Range Provided - May 13, 2024 spKt/V Gotch 1.99 No Reference Ran ge Provided - May 13, 2024 Bone/Mineral Result Type Result Value Relevant [...] pg/mL 16 - 80 pg/mL High Dec PTH-Intact, Plasma 362 pg/mL 16 - 80 pg/mL High Jan Magnesium 2.3 mg/dL 1.6 - 2.6 mg/dL - February 112024 Calcium, Total 8.7 mg/dL 8.7 - 10.4 mg/dL - 2024 Ca x P Product 37 0 - 54 - February Phosphorus 4.2 mg/dL 2.6 - 4.5 mg/dL - February 122024 PTH-Intact, Plasma 177 pg/mL 16 - 80 pg/mL High b ruary 2024 Calcium, Total 9.8 mg/dL 8.7 - 10.4 mg/dL - 2024 Phosphorus 3.7 mg/dL 2.6 - 4.5 mg/dL - March 18, 2024 Ca x P Product 36 0 - March, 2024 Alkaline Phosphatase 158 U/L 35 - 104 U/L High Fe bruary , 2024 Corrected Ca x P Product 37 0 March 18, Magnesium 2.2 mg/dL 1.6 - 2.6 mg/dL - March 18, 2024 Ca x P Product 37 0 - April 15, 2024 Calcium, Total 9.3 mg/dL 8.7 - 10.4 mg/dL - 2024 Phosphorus 4.0 mg/dL 2.6 - 4.5 mg/dL - April 15, 2024 Corrected Ca x P Product 38 0 - April 15, 2024 PTH-Intact, Plasma 453 pg/mL 16 - 80 pg/mL High Mar ch 2024 PTH-Intact, Plasma 412 pg/mL 16 - 80 pg/mL High Apr il 2024 Phosphorus 2.8 mg/dL 2.6 - 4.5 mg/dL - May 13, 2024 Calcium, Total 8.7 mg/dL 8.7 - 10.4 mg/dL - Apri l 2024 Ca x P Product 24 - May 13, 2024 Corrected Ca x P Product 26 - May 13, 2024 Liver/Nutrition Result Type Result Value Relevant Referen ce Range Interpretation Date eNPCR 1.08 No Reference Ran ge Provided - March 18, 2024 Total Protein 6.5 g/dL 6.0 - 8.5 g/dL - 2024 Albumin (BCG) 3.8 g/dL 3.5 - 5.2 g/dL - 2024 Globulin (Calc) 2.7 g/dL 2.0 - 4.0 g/dL - 2024 A/G Ratio 1.4 1.0 - 2.0 - March 18, 2 025 eNPCR 1.33 No Reference Ran ge Provided - April 15, 2024 Total Protein 6.6 g/dL 6.0 - 8.5 g/dL - April Albumin (BCG) 3.9 g/dL 3.5 - 5.2 g/dL - April Globulin (Calc) 2.7 g/dL 2.0 - 4.0 g/dL - April 15, 2024 A/G Ratio 1.4 1.0 - 2.0 - April 15, 2024 A/G Ratio 1.1 1.0 - 2.0 - May 13, 2024 Total Protein 6.1 g/dL 6.0 - 8.5 g/dL - May Albumin (BCG) 3.2 g/dL 3.5 - 5.2 g/dL Low May Globulin (Calc) 2.9 g/dL 2.0 - 4.0 g/dL - May 13, 2024 eNPCR 1.06 No Reference Ran ge Provided - May 13, 2024 Trace Elements Result Type Result Value Relevant Reference Range Interpre tation Date Aluminum 11 mcg/L 0 - 10 mcg/L High December 18, 2023 Infectious Diseases Result Type Result Value Relevant Referen ce Range Interpretation Date Hep B Surface Ab (anti-HBs) 14 mIU/mL No Reference Range Provided - December 18, 2023 Hep B Surface Ag (HBsAg) Negative No Reference Range Provided - May 13, 2024 DIALYSIS PRESCRIPTION Conventional Hemodialysis Data Element Value Order Date/Time April 17, 2024 Frequency 3X Week Treatment Days MonWedFri Dialyzer [id number] Optiflux Treatment Time (Total Minutes) 165 min Blood Flow Rate (mL/min) 450 mL/min Dialysate Flow Rate Autoflow 1.5 Estimated Dry Weight 36.7 kg Dialysate Concentrate 2.0 K, 2.5 Ca, [...] Date Resuscitation status Full Code Gabriel Mena May 01, 2024 DIALYSIS TREATMENTS Conventional Hemodialysis Date Pre-Treatment Vitals Post-Treatment Jocelyn ls Duration (hr) BFR (mL/min) Dialysate Dialyzer Dialysis Access Meds Admin May 18, 2024 Weight 41.00 kg Weight 37.40 kg 02:40:00 460 2.0 K, 2.5 Ca, 1.0 Mg, 100 Dextrose (G2251) 160nre Optifl ux Blood Pressure-sitting 186/67 mmHg Blood Pressure-sit ting 147/50 mmHg Blood Pressure-standing 170/71 mmHg Blood Pressure-st anding 127/51 mmHg Heart Rate 86 beats per minute Heart Rate 78 beats per minute Respiratory Rate 16 breaths per minute Respiratory Rate 16 breaths per minute Temperature 95.5 deg. F Temperature 97.6 deg. F May 20, 2024 Weight 38.80 kg Weight 37.00 kg 02:45:00 450 2.0 K, 2.5 Ca, 1.0 Mg, 100 Dextrose (G2251) 160nre Optiflux Hemodialysis-AV Fistula-Standard, Left Upper Arm, Brachial Artery to Cephalic Vein Access Placed on March 31, 2018 Heparin Sodium (Porcine) 1,000 Units/mL Systemic; 2000units,Intravenous - push Heparin Sodium (Porcine) 1,000 Units/mL Systemic; 2000units,Intravenous - push Mircera; 150mcg,Intravenous - push Vitamin D (Calcitriol) Oral; 0.25mcg,Oral Blood Pressure-sitting 218/86 mmHg Blood Pressure-sit ting 191/81 mmHg Blood Pressure-standing 225/88 mmHg Blood Pressure-st anding 185/67 mmHg Heart Rate 106 beats per minute Heart Rate 91 beats per minute Respiratory Rate 22 breaths per minute Respiratory Rate 20 breaths per minute Temperature 97.1 deg. F Temperature 97.5 deg. F May 22, 2024 Weight 38.30 kg Weight 36.10 kg 02:45:00 420 2.0 K, 2.5 Ca, 1.0 Mg, 100 Dextrose (G2251) 160nre Optiflux Hemodialysis-AV Fistula-Standard, Left Upper Arm, Brachial Artery to Cephalic Vein Access Placed on March 31, 2018 Clonidine HCl; 0.1mg,Oral Heparin Sodium (Porcine) 1,000 Units/mL Systemic; 2000units,Intravenous - push Heparin Sodium (Porcine) 1,000 Units/mL Systemic; 2000units,Intravenous - push Vitamin D (Calcitriol) Oral; 0.25mcg,Oral Blood Pressure-sitting 204/76 mmHg Blood Pressure-sit ting 193/96 mmHg Blood Pressure-standing 215/90 mmHg Blood Pressure-st anding 212/92 mmHg Heart Rate 107 beats per minute Heart Rate 93 beats per minute Respiratory Rate 16 breaths per minute Respiratory Rate 16 breaths per minute Temperature 97.4 deg. F Temperature 97.3 deg. F
--- NOTE | 2024-05-25 19:01 | CRLHL7_ITS ---
For Patients: As a result of the Century Cures Act, medical imaging exams and procedure reports are released immediately into your electronic medical record. You may view this report before your referring provider. If you have questions, please contact your health care provider. Indication: Altered mental status. Technique: Noncontrast CT images of the brain. Comparison: MRI brain 05/06/2024. Findings: Dhyo-ym-nvpuhzha diffuse cerebral volume loss. No mass effect or midline shift. Rubin-white differentiation is maintained. No acute intracranial hemorrhage or pathologic extra-axial fluid collection. Suggested mild chronic microvascular ischemic changes. Intracranial atherosclerotic calcifications. Thinning of the ocular lenses. The calvarium is intact. Minimal paranasal sinus mucosal thickening. Mastoid air cells are clear. Impression: ImpressionNo acute intracranial hemorrhage or mass effect. Please note that all CT scans at this facility use dose modulation, iterative reconstruction, and/or weight-based dosing when appropriate to reduce radiation dose to as low as reasonably achievable. Dictated by Bi Borden MD @ 05/25/2024 7:22:03 PM (Electronically Signed)
--- OUTSIDE RECORDS SUMMARY | 2024-05-25 19:01 | XMS_ITS | Clinical Summary ---
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 Unknown Butterfly / Unknown 03/31/2024 6:23 AM FREELANCE GRAPHIC DESIGNER 03/31/2024 6:31 AM FREELANCE GRAPHIC DESIGNER us Karthik Mann MD HEMATOLOGY Final Resu lt [facility] INTERNAL ZIP [address] [address] [place] [address] * (ABNORMAL) RENAL FUNCTION PANEL (03/31/2024 6:23 AM FREELANCE GRAPHIC DESIGNER) SODIUM 131(L) 136 - 145 mmol/L 03/31/2024 [...] 11(L) >90 mL/min/1. 73m2 03/31/2024 6:58 AM FREELANCE GRAPHIC DESIGNER [facility] Comment:As of 2021, eG FR is calculated by the CKD-EPI creatinine equation without race adjustment. eGFR can be influenced by muscle mass, exercise, and diet. The reported eGFR is an estimation only and is only applicable if the renal function is stable. PHOSPHORUS 3.9 2.5 - 4.5 mg/dL 03/31/2024 6:58 AM FREELANCE GRAPHIC DESIGNER [facility] ALBUMIN 3.4(L) 4.0 - 4.9 g/dL 03/31/2024 6:58 AM FREELANCE GRAPHIC DESIGNER [facility] Blood BLOOD SPECIMEN / Unknown Butterfly / Unknown 03/31/2024 6:23 AM FREELANCE GRAPHIC DESIGNER 03/31/2024 6:31 AM FREELANCE GRAPHIC DESIGNER Karthik Mann MD CHEMISTRY Final Resu lt Performing Organization Address City/State/[facility] Co de Phone Number [facility] INTERNAL ZIP [phone] [place] [address] * XR DXA BONE DENSITY 2 SITES AXIAL (04/12/2016 1:49 PM FREELANCE GRAPHIC DESIGNER) Anatomical Region Laterality Modality Spine, HIPS, HIPL, HIPR Other Narrative 04/13/2016 10:06 AM FREELANCE GRAPHIC DESIGNER Please see scanned document for results of this study. Tyrell Schneider MD DEXA Final Result * ANTI HCV (04/04/2016 1:32 PM FREELANCE GRAPHIC DESIGNER) HEPATITIS C ANTIBODY Non-Reacti ve Non-Reacti ve 04/04/2016 7:49 PM FREELANCE GRAPHIC DESIGNER [facility] Blood BLOOD SPECIMEN / Unknown Venipuncture / Unknown 04/04/2016 1:32 PM FREELANCE GRAPHIC DESIGNER 04/04/2016 3:22 PM FREELANCE GRAPHIC DESIGNER Narrative [facility] - 04/04/2016 7:49 PM FREELANCE GRAPHIC DESIGNER Antibodies to HCV not detected; does not exclude the possibility of exposure to HCV. Tyrell Schneider MD SEND OUTS Final Result [facility] [address] [place] [address], from Last 3 Months or Most Recently Relevant to Health Maintenance Insurance MEDICARE PART A HB ONLY [facility] * Guarantor: IN HOME PERSONAL CARE Account Type Relation to Patient Date of Phone Billing Address [facility] Health/[employer]mo Employer [address] [place] [address] * Guarantor: [employer] Account Type Relation to Patient Date of Phone Billing Address [facility]/[place] [address] ATTN YOSELIN LEVY [address] [place] [address] [employer] Advance Directives * Full Code (Latest Code Status on File) Date Activated Date Inactivated Comments 03/30/2024 8:27 PM 04/02/2024 4:55 PM Question Answer Comments Code Status Discussion: Reviewed Preferences Care Teams [facility] Relationship Specialty Start Date End Date Tyrell Schneider MD [address] [place] [address] PCP - General 10/08/05 Kirti Rai, RN [address] [place] [id number] Nurse Navigator - Oncology Registered Nurse 04/17/24
--- OUTSIDE RECORDS SUMMARY | 2024-05-25 19:01 | XMS_ITS | Encounter Summary ---
Author Organization [facility] Address [address] [place] [address] Care Team Providers Care Wood Heel Finisher Name Role Phone Tyrell Schneider Primary Care Provider [phone] Encounter Details Date Type Department Care Team (Late st Contact Info) Description 04/27/2024 Results Only [facility] [address] [place] [address] Emanuel Lozano MD [facility] [address], [facility] [address] [place] [address] Social History Tobacco Use Types Packs/Day Years [...] BPM MUSE Atrial Rate 69 BPM MUSE VA Interval 178 ms MUSE QRS Duration 82 ms MUSE QT 394 ms MUSE QTc 422 ms MUSE P Model 75 degrees MUSE R AXIS 24 degrees MUSE T Model 80 degrees MUSE Interpretation ECG Sinus rhythm Minimal voltage criteria for LVH, may be normal variant ( [place] product ) Borderline ECG When compared with ECG of 27-Apr-2024 14:32, (unconfirmed) No significant change was found Unconfirmed report - interpretation of this ECG is computer generated - see medical record for final interpretation Confirmed by - EMERGENCY ROOM, PHYSICIAN ([id number]), editor greeting card Song Cheung ([id number]) on 04/27/2024 3:21:42 PM MUSE 04/27/2024 2:47 PM CDT 04/27/2024 3:21 PM CDT us Emanuel Lozano MD ECG ORDERABLES Edited Result - Final MUSE documented in this encounter Visit Diagnoses Not on filedocumented in this encounter Care Teams Wood Heel Finisher Relationship Specialty Start Date End Date Tyrell Schneider [address] [place] [address] PCP - General Family Medicine 02/19/23 documented as of this encounter
[2024-05-25] MEDS: LABETALOL HCL 5 MG/ML inj 20 MG IVP (19:19)
[2024-05-25 19:41] LABS: Basophils Percent Auto 0.1 % (0.0-3.0); Eosinophils Percent Auto 0.3 % (0.0-7.0); Hematocrit 27.4 % (33.0-51.0); Hemoglobin* 8.4 gm/dL (12.0-16.0); Immature Granulocytes Pct Auto 1.1 %; Lymphocytes Percent Auto 4.3 % (20-44); Mean Corpuscular HGB Conc 31 gm/dL (32-36); Mean Corpuscular Hemoglobin 28 pg (26-34); Mean Corpuscular Volume 92 fL (80-100); Monocytes Percent Auto 4.1 % (0.0-11.0); Neutrophils Percent Auto 90.1 % (42.0-72.0); Platelet Count* 467 K/uL (140-440); RDW Coefficient of Variation % 17.2 % (11.5-15.5); Red Blood Count 2.99 m/uL (4.00-5.20); White Blood Count* 22.69 K/uL (4.50-11.00)
--- OUTSIDE RECORDS SUMMARY | 2024-05-25 19:42 | XMS_ITS | Encounter Summary ---
Author Organization [facility] Address [address] [place] [address] Care Team Providers Care Shift Foreman Name Role Phone Tyrell Schneider Primary Care Provider [phone] Encounter Details Date Type Department Care Team [...] on filedocumented in this encounter Care Teams Shift Foreman Relationship Specialty Start Date End Date Tyrell Schneider [address] [place] [address] PCP - General Family Medicine 02/19/23 documented as of this encounter
--- OUTSIDE RECORDS SUMMARY | 2024-05-25 19:42 | XMS_ITS | CONTINUITY OF CARE DOCUMENT ---
Author Name User, QIE Address [address] [place] [address] Organization [facility] Address [address] [facility] [address] [place] [address] Phone [phone] Care Team Providers Care Clinical Support Nurse Name Role Phone User, QIE Unavailable Unavailable PROBLEMS Condition Status Date Provider Notes Organizati on CKD STAGE ESRD ON DIALYSIS GFR <15 active Shakira Jacobs PE TEACHER PE TEACHER, [address] [place] [address] [facility] VITAL SIGNS Date Observation Value Provider Organization blood pressure, diastolic 58 mm[Hg] Padmaja Das RN RN, [address] [place] [address] [facility] blood pressure, systolic 141 mm[Hg] Padmaja Das RN RN, [address] [place] [address] [facility] respiratory rate E&M 16 /min Padmaja Solares RN RN, [address] [place] [address] [address] [facility] pulse rate 56 /min Padmaja Das RN RN, [address] [place] [address] [facility] blood pressure, site #1 Upper arm Padmaja Das RN RN, [address] [place] [address] [facility] blood pressure, diastolic, right arm 58 mm[Hg] Padmaja Das RN RN, [address] [place] [address] [facility] blood pressure, systolic, right arm 141 mm[Hg] Padmaja Das RN RN, [address] [place] [address] [facility] temperature E&M 98.0 [degF] Padmaja Das RN RN, [address] [facility] [address] [facility] Body Mass Index (Ratio) 19.46 kg/m2 Padmaja Das RN RN, [address] [facility] [address] [facility] height E&M 62 [in_i] Padmaja Das RN RN, [address] [facility] [address] [place] [address] [facility] weight E&M 106 [lb_av] Padmaja Das RN RN, [address] [facility] [address] [place] [address] [facility] [place] ALLERGIES Allergy Name Onset Date Reaction Criticality Status Provider Organization DIGIFAB itching Low Criticality active Padmaja Das RN RN, [address] [facility] [address] [facility] GATIFLOXACIN nausea Low Criticality active Ginger Lundahl RDMS, RVT RDMS, RVT, [address] [facility] [address] [facility] PRAVASTATIN SODIUM myalgia Low Criticality active Ginger Lundahl RDMS, RVT RDMS, RVT, [address] [facility] [address] [facility] VITEYES OMEGA-3 itching Low Criticality active Ginger Lundahl RDMS, RVT RDMS, RVT, [address] [facility] [address] [facility] OAK rash Low Criticality active Ginger Lundahl RDMS, RVT RDMS, RVT, [address] [facility] [address] [facility] NIACIN itching Low Criticality active Ginger Lundahl RDMS, RVT RDMS, RVT, [address] [facility] [address] [facility] LOSARTAN POTASSIUM itching Low Criticality active Ginger Lundahl RDMS, RVT RDMS, RVT, [address] [facility] [address] [facility] LISINOPRIL rash Low Criticality active Ginger Lundahl RDMS, RVT RDMS, RVT, [address] [facility] [address] [facility] LIPITOR myalgia Low Criticality active Ginger Lundahl RDMS, RVT RDMS, RVT, [address] [place] [address] [facility] HYDROCHLOROTHIAZIDE had significant pruritic rash High Criticality active Ginger Lundahl RDMS, RVT RDMS, RVT, [address] [facility] [address] [facility] GEMFIBROZIL itching Low Criticality active Ginger Lundahl RDMS, RVT RDMS, RVT, [address] [facility] [address] [facility] BUCIO edema Low Criticality active Ginger Lundahl RDMS, RVT RDMS, RVT, [address] [facility] [address] [facility] CATS SOB SOB High Criticality active Ginger Lundahl RDMS, RVT RDMS, RVT, [address] [facility] [address] [facility] ATENOLOL rash Low Criticality active Ginger Lundahl RDMS, RVT RDMS, RVT, [address] [facility] [address] [facility] AMPICILLIN hives Low Criticality active Ginger Lundahl RDMS, RVT RDMS, RVT, [address] [facility] [address] [facility] RESULTS Date Observation Value Provider Organization Refer ence Range Interpretation Location blood glucose, finger stick 161 Padmaja Das RN RN, [address] [facility] [address] [facility] HISTORY OF MEDICATION USE Medication Instructions Status Dates Provider Indications Com ments Organization triamcinolone acetonide 0.1% cream active Tamela Karl , [address] [facility] [address] [facility] sorbitol 70% solution TAKE 30 ML BY MOUTH ONCE A DAY NEEDED FOR CONSTIPATION* active Tamela Karl , [address] [facility] [address] [facility] [address] [facility] senna 8.6 mg tablet take 1-4 tablets by mouth once daily as needed to achieve 2-3 soft bowel movements daily active Tamela Barajas , [address] [facility] [address] [facility] [address] [facility] furosemide 40 mg tablet 1 tablet once a day active [address] [place] [address] [facility] labetalol 300 mg tablet as directed active [address] [facility] [address] [facility] moxifloxacin 0.5% drops as directed active [address] [place] [address] [facility] mupirocin 2% ointment as directed active [address] [facility] [address] [facility] pantoprazole 40 mg tablet,delayed release (DR/EC) 1 tablet twice a day active [address] [facility] [address] [facility] repaglinide 1 mg tablet 1 tablet three times a day active [address] [facility] [address] [facility] TYLENOL WITH CODEINE #3 300-30 MG ORAL TABLET 1-2 tablet every four to six hours as needed completed 05/19 - 04/[address] [facility] [address] [facility] Cipro 500 mg tablet Take 1 tablet by mouth once a day completed 05/19 - 04/[address] [facility] [address] [facility] sodium bicarbonate 650 mg tablet 1 tablet twice a day completed 02/22 - 04/[address] [facility] [address] [facility] labetalol 200 mg tablet 2 tablet twice a day completed 02/22 - 04/[address] [facility] [address] [facility] Levsin 0.125 mg tablet 1-2 tablet every four hours as needed completed 02/22 - 04/[address] [facility] [address] [facility] glipizide 10 mg tablet 2 tablet once a day active 02/22 Ginger Lundahl RDMS, RVT RDMS, RVT, [address] [place] [address] [address] [facility] [address] [facility] ADVAIR DISKUS 250-50 MCG/DOSE INHALATION AEROSOL POWDER BREATH ACTIVATED 1 puff every twelve hours completed 02/22 - 04/[address] [facility] [address] [facility] clonidine HCl 0.2 mg tablet 2 tablet every night active 02/22 Gingermichell Engelahl RDMS, RVT RDMS, RVT, [address] [place] [address] [address] [facility] [address] [facility] cetirizine 10 mg tablet 1 tablet once a day completed 02/22 - 04/[address] [facility] [address] [facility] calcitriol 0.25 mcg capsule 1 capsule once a day completed 02/22 - 04/[address] [facility] [address] [facility] bisacodyl 10 mg suppository once a day completed 02/22 - 04/[address] [facility] [address] [facility] aspirin 81 mg tablet,delayed release (DR/EC) 1 tablet once a day completed 02/22 - 04/[address] [facility] [address] [facility] amlodipine 10 mg tablet 1 tablet twice a day active 02/22 Ginger Engelahl RDMS, RVT RDMS, RVT, [address] [place] [address] [address] [facility] [address] [facility] albuterol sulfate 2.5 mg/3 mL (0.083 %) solution for nebulization Inhale 3 ml every four hours as needed active 02/22 Ginger Lundahl RDMS, RVT RDMS, RVT, [address] [place] [address] [address] [facility] [address] [facility] SOCIAL HISTORY Date Observation Value Provider Organization site on body for surgical procedure brachiobasilic fistula Mahogany Rm MD, MD, [address] [facility] [address] [facility] social history reviewed E&M reviewed - no changes required Padmaja Das RN RN, [address] [facility] [address] [facility] [address] [facility] INSURANCE PROVIDERS Payer name Policy type / Coverage type [facility] ID [employer] BLUE SHIELD - BCBS [id number] [id number] MEDICARE [id number] HISTORY OF PROCEDURES Procedure Date Procedure Name Provider Procedure Notes Status Organization SNOMED-CT: [id number] Current Medications Documented Mahogany Rm MD, MD, [address] [facility] [address] completed [facility] INJECTION FENTANYL CITRATE 100MCG Mahogany Rm MD, MD, [address] [place] [address] completed [facility] INJECTION MIDAZOLAM HCL PER 1 MG Mahogany Rm MD, MD, [address] [place] [address] completed [facility] Omnipaque-Visipaque Mahogany Rm MD, MD, [address] [facility] [address] 45ml completed [facility] Wire Mahogany Rm MD, MD, [address] [place] [address] completed [facility] Balloon Mahogany Rm MD, MD, [address] [place] [address] completed [facility] Sheath Mahogany Rm MD, MD, [address] [place] [address] completed [facility] INFUS NORMAL SALINE SOLUTION 250 CC Mahogany Rm MD, MD, [address] [place] [address] completed [facility] Angioplasty within including RS&I Mahogany Rm MD, MD, [address] [place] [address] completed [facility] Fistulagram, Dialysis Mahogany Rm MD, MD, [address] [place] [address] completed [facility] Antibiotic-No Order Mahogany Rm MD, MD, [address] [place] [address] completed [facility] Quailty Measures all negative Mahogany Rm MD, MD, [address] [place] [address] completed [facility] SNOMED-CT:HISTORICAL PNEUMOCOCCAL VACCINATION Mahogany Rm MD, MD, [address] [place] [address] completed [facility] SNOMED-CT:PATIENT ENCOUNTER Mahogany Rm MD, MD, [address] [facility] [address] completed [facility]
--- OUTSIDE RECORDS SUMMARY | 2024-05-25 19:42 | XMS_ITS | Encounter Summary ---
Author Organization [place] Address [address] [place] [address] Care Team Providers Care Auction Clerk Name Role Phone Schneider, Tyrell Bulmaro Primary Care Provider [phone] Reason for Visit * Reason Comments Chest Pain Encounter Details Date Type Department Care Team (Late st Contact Info) Description 04/27/2024 1:37 PM CDT - 04/27/2024 8:51 PM CDT Emergency [facility] Emergency Dept [address] [place] [address] Jason Tapia MD [facility] [address] [place], [place] [id number] Left-sided chest pain; Mass of upper lobe [...] CDT Follow-up with the cancer clinic in [place] as you already plan to do Use Tylenol for pain or discomfort * Attachments The following attachments cannot be sent through Care Everywhere. * Chest Pain ([place]) documented in this encounter Medications at Time [...] tablet by mouth daily neomycin-polymyxi n-dexAMETHasone (MAXITROL) 3.5-95739-3.[address] 0.25 inches Into the [...] teaching done, Wheelchair van came in. * aJson Tapia MD - 04/27/2024 3:22 PM CDT [...] of end-stage renal disease normally dialyzes in [place]. Did not dialyze today which would have [...] multivitamin RENAL (RENAVITE RX/NEPHROVITE) 1 tablet tablet tfprsksl-vawgvxafd-hjyLXLBEtqpah (MAXITROL) 3.5-90218-6.1 ophthalmic ointment nicotine (NICODERM CQ) 14 MG/24HR [...] Pressure Ventricular Rate 75 Atrial Rate 75 NC Interval 178 QRS Duration 86 QT 394 QTc 439 P [place] 81 R AXIS 44 T [place] 91 Interpretation ECG Sinus rhythm Normal ECG [...] prolonged, 1833 Lung biopsy April 07, 2024 [facility] was positive for malignancy, squamous cell carcinoma. Social Determinants of Health affecting care: Disposition: discharge Impression & Plan [facility] Diagnoses: MIPS (If applicable): Medical Decision Making: [...] follow-up with her PCP and oncology in [place]. She was comfortable and agreeable with that [...] pharmacist at primary pharmacy Changes made to SYSTEM SOFTWARE PROGRAMMER medication list: Added: calcium acetate, hydralazine, losartan, methocarbamol, nifedipine, spironolactone, Breo inhaler, Albuterol inhaler Deleted: senna, sorbitol, Incruse inhaler, miralax, labetalol, cetirizine, amlodipine Changed: nicotine patch (21 mg --> 14 mg) Allergies reviewed with patient and updates made in EHR: no Medication History Completed By: Tony Alcantar RPH 04/27/2024 5:16 PM SYSTEM SOFTWARE PROGRAMMER Med List Medication Sig Note Last Dose/Taking [...] 1 tablet by mouth daily Past Week lhlaelfk-fmngwudvk-bbgAUMNSohfsf (MAXITROL) 3.5-22443-2.[address] 0.25 inches Into the [...] MD LAB - BLOOD ORDERABLES Final Result [facility] [address] Lab (1st floor, no room number) [place] [address], [facility] * CT Chest Pulmonary Embolism [...] CT CHEST PULMONARY EMBOLISM W CONTRAST LOCATION: [facility] DATE: 04/27/2024 INDICATION: Chest pain, elevated [...] CT CHEST PULMONARY EMBOLISM W CONTRAST LOCATION: [facility] DATE: 04/27/2024 INDICATION: Chest pain, elevated [...] 1.8 cm in short axis (series 6 [id number]) and left prevascular node measuring 1.2 cm [...] US LOWER EXTREMITY VENOUS DUPLEX RIGHT LOCATION: [facility] DATE: 04/27/2024 INDICATION: RLQ pain, no [...] US LOWER EXTREMITY VENOUS DUPLEX RIGHT LOCATION: [facility] DATE: 04/27/2024 INDICATION: RLQ pain, no [...] collection right groin. Jason Tapia MD [facility] US ORDERABLES Final Result * (ABNORMAL) Troponin T, High Sensitivity (04/27/2024 3:52 PM CDT) [facility] Troponin T, High Sensitivity 144(HH) <=14 ng/L [...] - BLOOD ORDERABLES Final Result [facility] LABORATORY [facility] Acute Care Lab [address] Lab (1st floor, no room number) [place] [address], [facility] * (ABNORMAL) D dimer quantitative (04/27/2024 1:53 PM CDT) Pathologist [facility] D-Dimer Quantitative 4.13(H) 0.00 - 0.50 ug/mL [...] out pulmonary embolism: The ADJUST-PE Study. REGINA 2014;311:9203-5827.; ASAF Le et al. Diagnostic accuracy of conventional or age adjusted D-dimer cutoff values in older patients with suspected venous thromboembolism. Systemic review and meta-analysis. BMJ 2013:346:f2492. us Jason Tapia MD LAB - BLOOD ORDERABLES Final Result [facility] Care Lab [address] Lab (1st floor, no room number) [address] * Extra Red Top Tube (04/27/2024 1:53 PM CDT) Hold Specimen [facility] 04/27/2024 3:01 PM CDT [facility] LAB[facility]ATORY Blood BLOOD SPECIMEN / Unknown Venipuncture / Unknown 04/27/2024 1:53 PM CDT 04/27/2024 1:56 PM CDT Jason Tapia MD LAB - BLOOD ORDERABLES Final Result Performing Organization Address City/[facility]/ZIP Co de Phone Number [facility] Lab [address] Lab (1st floor, no room number) [address] * Extra Blue Top Tube (04/27/2024 1:53 PM CDT) Hold Specimen [facility] 04/27/2024 3:01 PM CDT [facility] LAB[facility]ATORY Blood BLOOD SPECIMEN / Unknown Venipuncture / Unknown 04/27/2024 1:53 PM CDT 04/27/2024 1:56 PM CDT Jason Tapia MD LAB - BLOOD ORDERABLES Final Result [facility] Care Lab [address] Lab (1st floor, no room number) [address] * (ABNORMAL) CBC with platelets and differential (04/27/2024 1:53 PM CDT) Pathologist [facility] WBC Count 14.2(H) 4.0 - 11.0 10e3/uL [...] BLOOD ORDERABLES Final Result Performing Organization Address City/[facility]/ZIP Co de Phone Number [facility] [address] Lab (1st floor, no room number) [place] [address] * (ABNORMAL) Troponin T, High Sensitivity (04/27/2024 1:53 PM CDT) [facility] Troponin T, High Sensitivity 135(HH) <=14 ng/L [...] MD LAB - BLOOD ORDERABLES Final Result [facility] [address] Lab (1st floor, no room number) [place] [address] * (ABNORMAL) Comprehensive metabolic panel (04/27/2024 1:53 [...] MD LAB - BLOOD ORDERABLES Final Result [facility] [address] Lab (1st floor, no room number) [place] [address], [facility] documented in this encounter Visit [...] cloNIDine (CATAPRES) tablet 0.1 mg 0.1 mg (0.40866 mg/kg), Oral, ONCE, On Sat04/27/24 at 1510, [...] (CATAPRES) tablet 0.1 mg (COMPLETED) 0.1 mg (0.19992 mg/kg), Oral, ONCE, On Sat04/27/24 at 1510, [...] RN) documented in this encounter Care Teams Auction Clerk Relationship Specialty Start Date End Date Tyrell Schneider [address] [place] [address] PCP - General Family Medicine 02/19/23 documented as of this encounter
--- OUTSIDE RECORDS SUMMARY | 2024-05-25 19:42 | XMS_ITS | Encounter Summary ---
Author Organization [place] Address [address] [place] [address] Care Team Providers Care Horticultural Specialty Grower Inside Name Role Phone Tyrell Schneider Primary Care Provider [phone] Encounter Details Date Type Department Care Team (Late st Contact Info) Description 04/27/[address] [facility] [address] [place] [address] Emanuel Lozano MD [facility] [address], [facility] [place] [address] [place] [address] Social History Tobacco Use Types Packs/Day Years [...] BPM MUSE Atrial Rate 69 BPM MUSE [place] Interval 178 ms MUSE QRS Duration 82 ms MUSE QT 394 ms MUSE QTc 422 ms MUSE P [place] 75 degrees MUSE R AXIS 24 degrees MUSE T [place] 80 degrees MUSE Interpretation ECG Sinus rhythm Minimal voltage criteria for LVH, may be normal variant ( [place] product ) Borderline ECG When compared with ECG of 27-Apr-2024 14:32, (unconfirmed) No significant change was found Unconfirmed report - interpretation of this ECG is computer generated - see medical record for final interpretation Confirmed by - EMERGENCY ROOM, PHYSICIAN ([id number]), video effects editor Song Cheung ([id number]) on 04/27/2024 3:21:42 PM MUSE 04/27/2024 2:47 PM CDT 04/27/2024 3:21 PM CDT us Emanuel Lozano MD ECG ORDERABLES Edited Result - Final MUSE documented in this encounter Visit Diagnoses Not on filedocumented in this encounter Care Teams Horticultural Specialty Grower Inside Relationship Specialty Start Date End Date Tyrell Schneider [address] [place] [address] PCP - General Family Medicine 02/19/23 documented as of this encounter
--- OUTSIDE RECORDS SUMMARY | 2024-05-25 19:42 | XMS_ITS | Clinical Summary ---
Author Organization [place] Address [address] [place] [address] Care Team Providers Care Restaurant Area Director Name Role Phone Tyrell Schneider Bulmaro Primary Care Provider [phone] Allergies Active Allergy Reactions Criticality Noted Date [...] 01/09/2010 itching Niacin Rash,Itching Low 05/13/2006 itch [place] Rash Low 05/16/2010 Oxycodone Nausea and [...] daily 09/26/19 23 Active neomycin-polymyx in-dexAMETHasone (MAXITROL) 3.5-76967-7.[address] 0.25 inches Into the [...] PM CDT - 04/27/2024 8:51 PM CDT [facility] Emergency Dept [address] [place] [address] Jason Tapia MD Left-sided chest pain; Mass of upper lobe of left lung Discharge Disposition: Home or Self Care 04/27/2024 Results Only [facility] [address] [place] [phone] Emanuel Lozano MD 04/27/2024 Travel from Last [...] CDT RENAL PANEL Routine 12/18/2022 8:45 AM SEASONAL TAX PREPARER OCCULT BLOOD STOOL STAT 12/12/2022 11 :03 PM CDT from Last 3 Months or Most Recently Relevant to Health Maintenance Results * (ABNORMAL) Troponin T, High Sensitivity (04/27/2024 6:12 PM CDT) Only the most recent of3 resultswithin the time period is included. Pathologist [facility] Troponin T, High Sensitivity 137(HH) <=14 ng/L [...] MD LAB - BLOOD ORDERABLES Final Result [facility] Acute Care Lab [address] [facility] Lab (1st floor, no room number) [place] [address] * CT Chest Pulmonary Embolism [...] CT CHEST PULMONARY EMBOLISM W CONTRAST LOCATION: [facility] DATE: 04/27/2024 INDICATION: Chest [...] CT CHEST PULMONARY EMBOLISM W CONTRAST LOCATION: [facility] DATE: 04/27/2024 INDICATION: Chest [...] 1.8 cm in short axis (series 6 ) and left prevascular node measuring 1.2 cm [...] US LOWER EXTREMITY VENOUS DUPLEX RIGHT LOCATION: [facility] DATE: 04/27/2024 INDICATION: RLQ [...] US LOWER EXTREMITY VENOUS DUPLEX RIGHT LOCATION: [facility] DATE: 04/27/2024 INDICATION: RLQ [...] BPM MUSE Atrial Rate 69 BPM MUSE [place] Interval 178 ms MUSE QRS Duration 82 ms MUSE QT 394 ms MUSE QTc 422 ms MUSE P [place] 75 degrees MUSE R AXIS 24 degrees MUSE T [place] 80 degrees MUSE Interpretation ECG Sinus rhythm Minimal voltage criteria for LVH, may be normal variant ( [place] product ) Borderline ECG When compared with ECG of 27-Apr-2024 14:32, (unconfirmed) No significant change was found Unconfirmed report - interpretation of this ECG is computer generated - see medical record for final interpretation Confirmed by - EMERGENCY ROOM, PHYSICIAN ([id number]), editor & co founder Song Cheung ([id number]) on 04/27/2024 3:21:42 PM MUSE 04/27/2024 2:47 PM CDT 04/27/2024 3:21 PM CDT us Emanuel Lozano MD ECG ORDERABLES Edited Result - Final MUSE * Extra Red Top Tube (04/27/2024 1:53 PM CDT) Hold Specimen [facility] 04/27/2024 3:01 PM CDT [facility] LAB[facility]ATORY Blood BLOOD SPECIMEN / Unknown Venipuncture / Unknown 04/27/2024 1:53 PM CDT 04/27/2024 1:56 PM CDT Jason Tapia MD LAB - BLOOD ORDERABLES Final Result [facility] Lab [address] Lab (1st floor, no room number) [place] [address] * Extra Blue Top Tube (04/27/2024 1:53 PM CDT) Hold Specimen [facility] 04/27/2024 3:01 PM CDT LABORATORY Blood BLOOD SPECIMEN / Unknown Venipuncture / Unknown 04/27/2024 1:53 PM CDT 04/27/2024 1:56 PM CDT Jason Tapia MD LAB - BLOOD ORDERABLES Final Result [facility] Lab [address] Lab (1st floor, no room number) [place] [address] * (ABNORMAL) CBC with platelets and differential (04/27/2024 1:53 PM CDT) Pathologist [facility] WBC Count 14.2(H) 4.0 - [...] LAB - BLOOD ORDERABLES Final Result LABORATORY [facility] Acute Care Lab [address] Lab (1st floor, no room number) [place] [address], [facility] * (ABNORMAL) D dimer quantitative (04/27/2024 [...] out pulmonary embolism: The ADJUST-PE Study. REGINA 2014;311:9159-5606.; ASAF Le et al. Diagnostic accuracy of conventional or age adjusted D-dimer cutoff values in older patients with suspected venous thromboembolism. Systemic review and meta-analysis. BMJ 2013:346:f2492. us Jason Tapia MD LAB - BLOOD ORDERABLES Final Result RH LABORATORY [facility] Acute Care Lab [address] Lab (1st floor, no room number) [place] [address], [facility] * (ABNORMAL) Comprehensive metabolic panel (04/27/2024 [...] - BLOOD ORDERABLES Final Result RH [facility]AT[facility] Care Lab [address] Lab (1st floor, no room number) [place] [address], [facility] * (ABNORMAL) Renal panel (12/18/2022 8:45 AM SEASONAL TAX PREPARER) Sodium 135 135 - 145 mmol/L 12/18/2022 9:44 AM [facility] Comment:Reference intervals for this test were updated on 11/06/2022 to more accurately reflect our healthy population. There may be differences in the flagging of prior results with similar values performed with this method. Interpretation of those prior results can be made in the context of the updated reference intervals. Potassium 4.2 3.4 - 5.3 mmol/L 12/18/2022 9:44 AM [facility] Chloride 99 98 - 107 mmol/L 12/18/2022 9:44 AM [facility] Carbon Dioxide (CO2) 29 22 - 29 mmol/L 12/18/2022 9:44 AM [facility] Anion Gap 7 7 - 15 mmol/L 12/18/2022 9:44 AM [facility] Glucose 128(H) 70 - 99 mg/dL 12/18/2022 9:44 AM [facility] Urea Nitrogen 17.7 8.0 - 23.0 mg/dL 12/18/2022 9:44 AM [facility] Creatinine 2.67(H) 0.51 - 0.95 mg/dL 12/18/2022 9:44 AM [facility] GFR Estimate 18(L) >60 mL/min/1. 73m2 12/18/2022 9:44 AM [facility] Calcium 7.6(L) 8.8 - 10.2 mg/dL 12/18/2022 9:44 AM [facility] [facility] LABORATORY Albumin 2.6(L) 3.5 - 5.2 g/dL 12/18/2022 9:44 AM [facility] [employer] LABORATORY Phosphorus 2.3(L) 2.5 - 4.5 mg/dL 12/18/2022 9:44 AM SE[employer]ONAL TAX [employer]PARER LABORATORY Blood STRUCTURE OF RIGHT UPPER LIMB / Unknown Venipuncture / Unknown 12/18/2022 8:45 AM SEASONAL TAX PREPARER 12/18/2022 8:50 AM SEASONAL TAX PREPARER us David Treviño MD LAB - BLOOD ORDERABLES Final Res ult [facility] [address] Lab (1st floor, no room number) [place] [address], [facility] [phone] * Stool: occult blood (12/12/2022 11:03 PM CDT) Occult Blood Negative Negative JENNIFER 12/12/2022 11:32 PM CDT LABORATORY Stool RECTAL CONTENTS / Unknown Non-blood Collection / Unknown 12/12/2022 11:03 PM CDT 12/12/2022 11:11 PM CDT us Jason Tapia MD LAB - STOOLS ORDERABLES Final Result [facility] [address] Lab (1st floor, no room number) [place] [address], [facility] [phone] from Last 3 Months or Most Recently Relevant to Health Maintenance Insurance [employer] ADVANTAGE [employer] ADVANTAGE Advance Directives For more information, please contact: [phone] * Full Code (Latest Code Status on [...] patie nt/ legal decision maker Care Teams Restaurant Area Director Relationship Specialty Start Date End Date Tyrell Schneider [address] [place] [address] PCP - General Family Medicine 02/19/23
[2024-05-25 19:49] LABS: Slide Review Reflex Yes
--- NOTE | 2024-05-25 19:49 | CRLHL7_ITS ---
For Patients: As a result of the Century Cures Act, medical imaging exams and procedure reports are released immediately into your electronic medical record. You may view this report before your referring provider. If you have questions, please contact your health care provider. INDICATION: Transient alteration of awareness, recent hospitalization and lung cancer TECHNIQUE: CT chest without i.v. contrast. Coronal and sagittal reformats were obtained. COMPARISON: 04/05/2024 FINDINGS: Cardiovascular: The heart has an unremarkable appearance and size. The main pulmonary artery is mildly enlarged measuring 3 cm. No sign of aneurysm seen in the thoracic aorta. The presence of aortic dissection cannot be evaluated without the use of intravenous contrast. Mediastinum: See comments in the Lung section. Lung: Masslike consolidation is present in the anterior left upper lobe measuring 7 cm in diameter and abutting the mediastinal border and right hilum. A lobulated mass is present in the right middle lobe measuring 3.3 x 2.5 cm and not significantly changed from prior examination which may represent a metastatic or synchronous malignancy. Mild centrilobular emphysema is present bilaterally. Mosaic attenuation is seen in the right lung base. Pleura and pericardium: No sign of pleural effusion seen. No significant pericardial effusion is present. Chest wall and axilla: No mass or adenopathy seen. Bone: Unremarkable for age. Upper abdomen: Unremarkable. IMPRESSION: 1. Masslike consolidation is present in the anterior left upper lobe measuring 7 cm in diameter and abutting the mediastinal border and right hilum. This may be due to a central obstructing mass with peripheral pneumonitis or postobstructive atelectasis. The region of consolidation has increased in size since prior examination. Dictated by Andrés Vega MD @ 05/25/2024 9:21:39 PM Please note that all CT scans at this facility use dose modulation, iterative reconstruction, and/or weight-based dosing when appropriate to reduce radiation dose to as low as reasonably achievable. Dictated by: Andrés Vega MD @ 05/25/2024 21:21:45 (Electronically Signed)
--- NOTE | 2024-05-25 19:54 | ED_ITS ---
HPI - General Adult General Date Seen: 05/25/24 <Cuong Cardoza DO - Last Filed: 05/25/24 20:32> Chief complaint: Neuro Symptoms/Altered Deficit <Cuong Cardoza DO - Last Filed: 05/25/24 20:32> Stated complaint: stroke <Cuong Cardoza DO - Last Filed: 05/25/24 20:32> Time Seen by Provider: 05/25/24 18:59 <Cuong Cardoza DO - Last Filed: 05/25/24 20:32> Source: family and EMS <Cuong Cardoza DO - Last Filed: 05/25/24 20:32> Mode of arrival: EMS <Cuong Cardoza DO - Last Filed: 05/25/24 20:32> Limitations: altered mental status <Cuong Cardoza DO - Last Filed: 05/25/24 20:32> History of Present Illness HPI narrative: Patient is a 78-year-old female with a history of untreated lung cancer, diabetes, end-stage renal disease on dialysis presenting to the emergency department for altered mental status. I spoke to her family on the phone and they state with a past few days patient has been more confused than baseline. Typically she is able to have full conversations about issues but now seems to doze off after a few sentences. They states she is in acting normal this is been persisting. Patient went to dialysis today and came back still confused. Due to this they were concerned so they called EMS. On EMS arrived initially thought she might have have slight facial droop when they called the code stroke. It was unclear at that time when her symptoms 1st started. When asked the patient what is going on she will initially answer questions appropriately and follow commands but after 12 02 she will stop fall and commands and seemed confused. She was unable to tell me the date but was able to tell me where she is. I did look through her recent hospitalization for altered mental status. At that time was believed it was due to acute on chronic constipation along with acute hypoxic respiratory secondary to hypovolemia. Patient's symptoms resolved at [facility] and she was sent home. Did have an elevated white blood cell count at that time but did not find any clear source of infection. <Cuong Cardoza DO - Last Filed: 05/25/24 20:32> Related Data Home medications: Home Medications ?Medication ?Instructions ?Recorded ?Confirmed albuterol sulfate 2.5 mg/3 mL 2.5 mg Q4H PRN dyspnea 11/28/22 (0.083 %) solution for nebulization aspirin 81 mg capsule 81 mg PO DAILY 11/28/22 04/04/24 clonidine HCl 0.1 mg tablet 0.1 mg PO DIRECTED 11/28/22 04/04/24 furosemide 40 mg tablet 40 mg PO QAM 11/28/22 04/04/24 labetalol 300 mg tablet 300 mg PO 3XD 11/28/22 04/04/24 oxycodone 5 mg tablet 5 mg PO BID PRN 11/28/22 04/04/24 repaglinide 1 mg tablet 1 mg PO 3XD 11/28/22 04/04/24 sennosides 8.6 mg tablet (senna) 8.6 - 34.4 mg PO DAILY PRN 11/28/22 04/04/24 sorbitol 70 % solution 30 ml PO DAILY PRN constipation 11/28/22 04/04/24 albuterol sulfate 90 mcg/actuation 2 puff inhalation BID 12/03/23 04/04/24 aerosol inhaler calcium acetate(phosphat bind) 667 1,334 mg PO 3XD 12/03/23 12/03/23 mg capsule dextran 70-hypromellose (PF) 0.1 1 drp ophthalmic (eye) DIRECTED 12/03/23 04/04/24 %-0.3 % eye drops in a dropperette (Bion Tears (PF)) ipratropium 0.5 mg-albuterol 3 mg 3 ml inhalation Q6H PRN dyspnea 12/03/23 04/04/24 (2.5 mg base)/3 mL nebulization soln nifedipine 90 mg tablet,extended 90 mg PO DAILY 12/03/23 12/03/23 release 24 hr pantoprazole 40 mg tablet,delayed 40 mg PO BID 12/03/23 12/03/23 release spironolactone 25 mg tablet 25 mg PO DAILY 12/03/23 04/04/24 umeclidinium 62.5 mcg/actuation 1 inh inhalation DAILY 12/03/23 12/03/23 blister powder for inhalation (Incruse Ellipta) azithromycin 500 mg tablet mg DAILY 04/04/24 cefdinir 300 mg capsule mg 04/04/24 cetirizine 04/04/24 erythromycin ointment 04/04/24 fluticasone 250 mcg-salmeterol 50 1 inh inhalation Q12H 04/04/24 04/04/24 mcg/dose blistr powdr for inhalation (Advair Diskus) nifedipine 60 mg tablet,extended mg PO 04/04/24 release 24 hr triamcinolone acetonide 0.1 % applic topical BID 04/04/24 topical cream <Cuong Cardoza DO - Last Filed: 05/25/24 20:32> Allergies/adverse reactions: Allergies Allergy/AdvReac Type Severity Reaction Status Date / Time atenolol Allergy Unknown Rash Verified 12/03/23 19:43 atorvastatin (From Lipitor) Allergy Unknown Verified 12/03/23 19:43 cat dander Allergy Unknown Difficulty Verified 12/03/23 19:43 Breathing dog dander Allergy Unknown Sneezing Verified 12/03/23 19:43 zarco Allergy Unknown Edema Verified 12/03/23 19:43 gemfibrozil Allergy Unknown Verified 12/03/23 19:43 hydrochlorothiazide Allergy Unknown Rash Verified 12/03/23 19:43 losartan Allergy Unknown Verified 12/03/23 19:43 niacin Allergy Unknown Verified 12/03/23 19:43 oak Allergy Unknown Rash Verified 12/03/23 19:43 pioglitazone Allergy Unknown Verified 12/03/23 19:43 ampicillin Allergy Hives Verified 12/03/23 19:43 dulaglutide (From Trulicity) AdvReac Unknown Vomiting Verified 12/03/23 19:43 pravastatin AdvReac Unknown Verified 12/03/23 19:43 simvastatin AdvReac Unknown Verified 12/03/23 19:43 gatifloxacin (From Tequin) AdvReac Nausea Verified 12/03/23 19:43 lisinopril AdvReac Cough Verified 12/03/23 19:43 <Cuong Cardoza, DO - Last Filed: 05/25/24 20:32> Review of Systems Status of ROS: Reports: unobtainable due to mental status <Cuong Cardoza DO - Last Filed: 05/25/24 20:32> PFSH PFSH Social History: Social History How often do you have a drink containing alcohol: never AUDIT-C Alcohol total score: 0 Non-prescribed substance use: denies use <Cuong Cardoza DO - Last Filed: 05/25/24 20:32> Exam Narrative: Exam Narrative: Const: Well-nourished, Well-developed, in mild distress Eyes: PERRL, no conjunctival injection, and symmetrical lids HENT: Atraumatic external nose and ears. Moist mucous membranes. Neck: Symmetric, trachea midline, No thyromegaly. CVS: RRR, No murmurs or gallops. Peripheral pulses 2+ and equal in all extremities RESP: Unlabored respiratory effort. Clear to auscultation bilaterally. GI: Nontender/Nondistended, No rebound or guarding. MSK:Extremities w/o deformity, Normal Active ROM Skin: Warm, Dry. No rashes or lesions. Neuro: Normal Muscle tone, No focal neurological deficits but was difficult to go to fall all of my commands. From what I could determine muscle strength in upper lower extremities were 5/5 in she is normal heel to [place]. Did not seem to understand how to perform finger to nose. The did having normal cranial nerve exams. Psych: Awake, Alert, & Oriented to self. Appropriate mood and affect. <Cuong Cardoza DO - Last Filed: 05/25/24 20:32> Const: Vital Signs, click to edit/add: Vital Signs - 24 hr 05/25/24 19:26 05/25/24 19:32 05/25/24 19:42 Temperature Pulse Rate 90 68 Pulse Rate [Pulse Oximeter] Respiratory Rate 14 14 Blood Pressure 225/99 H 185/70 H 174/69 H Blood Pressure [Ri ght Upper Arm] Pulse Oximetry 100 98 Oxygen Delivery Me thod 05/25/24 19:53 05/25/24 20:02 05/25/24 20:05 Temperature 98.1 F Pulse Rate Pulse Rate [Pulse Oximeter] 75 Respiratory Rate 10 L 10 L 18 Blood Pressure 199/79 H 205/84 H Blood Pressure [Ri ght Upper Arm] 225/99 H Pulse Oximetry 98 Oxygen Delivery Me thod Room Air 05/25/24 20:12 05/25/24 20:21 05/25/24 20:24 Temperature Pulse Rate Pulse Rate [Pulse Oximeter] Respiratory Rate 11 L 16 13 Blood Pressure 223/85 H 201/85 H Blood Pressure [Ri ght Upper Arm] Pulse Oximetry Oxygen Delivery Ut thod 05/25/24 20:30 05/25/24 20:33 05/25/24 20:42 Temperature Pulse Rate Pulse Rate [Pulse Oximeter] Respiratory Rate 12 13 14 Blood Pressure 217/93 H 224/95 H Blood Pressure [Ri ght Upper Arm] Pulse Oximetry Oxygen Delivery Ut thod 05/25/24 20:45 05/25/24 21:00 05/25/24 21:02 Temperature Pulse Rate 80 80 Pulse Rate [Pulse Oximeter] Respiratory Rate 10 L 13 11 L Blood Pressure 185/81 H Blood Pressure [Ri ght Upper Arm] [facility] 93 [facility]12 05/25/24 21:15 05/25/24 21:23 Temperature Pulse Rate 80 79 Pulse Rate [Pulse Oximeter] Respiratory Rate 13 13 11 L Blood Pressure 191/84 H 241/94 H Blood Pressure [Ri ght Upper Arm] Pulse Oximetry 96 [facility] 05[facility] 21:24 05/25/24 21:28 05/25/24 21:30 Temperature Pulse Rate 78 79 Pulse Rate [Pulse Oximeter] Respiratory Rate 8 L 14 12 Blood Pressure 170/87 H Blood Pressure [Ri ght Upper Arm] Pulse Oximetry 100 [facility] 05/25/24 21:32 05/25/24 21:33 05/25/24 21:37 Temperature Pulse Rate 76 77 Pulse Rate [Pulse Oximeter] Respiratory Rate 15 14 10 L Blood Pressure 163/72 H 164/71 H Blood Pressure [Ri ght Upper Arm] Pulse Oximetry 89 87 L Oxygen Delivery Ut thod 05/25/24 21:42 05/25/24 21:45 05/25/24 21:47 Temperature Pulse Rate Pulse Rate [Pulse Oximeter] Respiratory Rate 15 6 L 16 Blood Pressure 170/74 H 176/128 H Blood Pressure [Ri ght Upper Arm] Pulse Oximetry Oxygen Delivery Ut thod 05/25/24 21:55 05/25/24 21:57 05/25/24 22:03 Temperature Pulse Rate 84 81 Pulse Rate [Pulse Oximeter] Respiratory Rate 9 L 16 25 H Blood Pressure 193/84 H 195/94 H Blood Pressure [Ri ght Upper Arm] Pulse Oximetry 95 100 Oxygen Delivery Me thod 05/25/24 22:08 05/25/24 22:12 05/25/24 22:15 Temperature Pulse Rate Pulse Rate [Pulse Oximeter] Respiratory Rate 13 14 10 L Blood Pressure 164/111 H 170/82 H Blood Pressure [Ri ght Upper Arm] Pulse Oximetry Oxygen Delivery Me thod 05/25/24 22:17 05/25/24 22:24 05/25/24 22:27 Temperature Pulse Rate Pulse Rate [Pulse Oximeter] Respiratory Rate 9 L 9 L 12 Blood Pressure 172/74 H 179/90 H 159/64 H Blood Pressure [Ri ght Upper Arm] Pulse Oximetry [facility] 22:33 05/25/24 22:34 05/25/24 22:37 Temperature Pulse Rate 84 Pulse Rate [Pulse Oximeter] Respiratory Rate 12 12 12 Blood Pressure 197/72 H 180/62 H Blood Pressure [Ri ght Upper Arm] Pulse Oximetry 95 [facility] 05/25/24 22:38 05/25/24 22:40 05/25/24 22:43 Temperature Pulse Rate 85 86 Pulse Rate [Pulse Oximeter] Respiratory Rate 15 12 12 Blood Pressure 185/90 H 230/96 H Blood Pressure [Ri ght Upper Arm] Pulse Oximetry 95 93 [facility] 05/25/24 22:45 05/25/24 22:47 05/25/24 22:52 Temperature Pulse Rate 83 85 84 Pulse Rate [Pulse Oximeter] Respiratory Rate 12 16 13 Blood Pressure 229/93 H 224/93 H Blood Pressure [Ri ght Upper Arm] Pulse Oximetry 93 94 95 Oxygen Delivery Me thod 05/25/24 22:58 05/25/24 23:00 05/25/24 23:03 Temperature Pulse Rate 81 81 80 Pulse Rate [Pulse Oximeter] Respiratory Rate 18 14 13 Blood Pressure 232/76 H 218/71 H Blood Pressure [Ri ght Upper Arm] Pulse Oximetry 93 94 94 Oxygen Delivery Me thod 05/25/24 23:07 05/25/24 23:12 05/25/24 23:15 Temperature Pulse Rate 85 76 79 Pulse Rate [Pulse Oximeter] Respiratory Rate 13 8 L 10 L Blood Pressure 216/81 H 221/78 H Blood Pressure [Ri ght Upper Arm] Pulse Oximetry 94 93 94 Oxygen Delivery Me thod 05/25/24 23:17 05/25/24 23:23 05/25/24 23:24 Temperature Pulse Rate 79 78 77 Pulse Rate [Pulse Oximeter] Respiratory Rate 10 L 7 L 6 L Blood Pressure 199/84 H 207/67 H Blood Pressure [Ri ght Upper Arm] Pulse Oximetry 93 94 91 Oxygen Delivery Me thod 05/25/24 23:27 05/25/24 23:30 05/25/24 23:33 Temperature Pulse Rate 78 83 82 Pulse Rate [Pulse Oximeter] Respiratory Rate 12 13 12 Blood Pressure 210/69 H 196/68 H Blood Pressure [Ri ght Upper Arm] Pulse Oximetry 93 91 93 Oxygen Delivery Me thod <Cuong Cardoza, DO - Last Filed: 05/25/24 20:32> Vital Signs, click to edit/add: Vital Signs - 24 hr 05/25/24 19:26 05/25/24 19:32 05/25/24 19:42 Temperature Pulse Rate 90 68 Pulse Rate [Pulse Oximeter] Respiratory Rate 14 14 Blood Pressure 225/99 H 185/70 H 174/69 H Blood Pressure [Ri ght Upper Arm] Pulse Oximetry 100 98 Oxygen Delivery Me thod 05/25/24 19:53 05/25/24 20:02 05/25/24 20:05 Temperature 98.1 F Pulse Rate Pulse Rate [Pulse Oximeter] 75 Respiratory Rate 10 L 10 L 18 Blood Pressure 199/79 H 205/84 H Blood Pressure [Ri ght Upper Arm] 225/99 H Pulse Oximetry 98 Oxygen Delivery Me thod Room Air 05/25/24 20:12 05/25/24 20:21 05/25/24 20:24 Temperature Pulse Rate Pulse Rate [Pulse Oximeter] Respiratory Rate 11 L 16 13 Blood Pressure 223/85 H 201/85 H Blood Pressure [Ri ght Upper Arm] Pulse Oximetry Oxygen Delivery Me thod 05/25/24 20:30 05/25/24 20:33 05/25/24 20:42 Temperature Pulse Rate Pulse Rate [Pulse Oximeter] Respiratory Rate 12 13 14 Blood Pressure 217/93 H 224/95 H Blood Pressure [Ri ght Upper Arm] Pulse Oximetry Oxygen Delivery Me thod 05/25/24 20:45 05/25/24 21:00 05/25/24 21:02 Temperature Pulse Rate 80 80 Pulse Rate [Pulse Oximeter] Respiratory Rate 10 L 13 11 L Blood Pressure 185/81 H Blood Pressure [Ri ght Upper Arm] Pulse Oximetry 93 93 Oxygen Delivery Me thod 05/25/24 21:12 05/25/24 21:15 05/25/24 21:23 Temperature Pulse Rate 80 79 Pulse Rate [Pulse Oximeter] Respiratory Rate 13 13 11 L Blood Pressure 191/84 H 241/94 H Blood Pressure [Ri ght Upper Arm] Pulse Oximetry 96 96 Oxygen Delivery Me thod 05/25/24 21:24 05/25/24 21:28 05/25/24 21:30 Temperature Pulse Rate 78 79 Pulse Rate [Pulse Oximeter] Respiratory Rate 8 L 14 12 Blood Pressure 170/87 H Blood Pressure [Ri ght Upper Arm] Pulse Oximetry 100 95 Oxygen Delivery Ut thod 05/25/24 21:32 05/25/24 21:33 05/25/24 21:37 Temperature Pulse Rate 76 77 Pulse Rate [Pulse Oximeter] Respiratory Rate 15 14 10 L Blood Pressure 163/72 H 164/71 H Blood Pressure [Ri ght Upper Arm] Pulse Oximetry 89 87 L Oxygen Delivery Ut thod 05/25/24 21:42 05/25/24 21:45 05/25/24 21:47 Temperature Pulse Rate Pulse Rate [Pulse Oximeter] Respiratory Rate 15 6 L 16 Blood Pressure 170/74 H 176/128 H Blood Pressure [Ri ght Upper Arm] Pulse Oximetry Oxygen Delivery Ut thod 05/25/24 21:55 05/25/24 21:57 05/25/24 22:03 Temperature Pulse Rate 84 81 Pulse Rate [Pulse Oximeter] Respiratory Rate 9 L 16 25 H Blood Pressure 193/84 H 195/94 H Blood Pressure [Ri ght Upper Arm] Pulse Oximetry 95 100 Oxygen Delivery Ut thod 05/25/24 22:08 05/25/24 22:12 05/25/24 22:15 Temperature Pulse Rate Pulse Rate [Pulse Oximeter] Respiratory Rate 13 14 10 L Blood Pressure 164/111 H 170/82 H Blood Pressure [Ri ght Upper Arm] Pulse Oximetry Oxygen Delivery Ut thod 05/25/24 22:17 05/25/24 22:24 05/25/24 22:27 Temperature Pulse Rate Pulse Rate [Pulse Oximeter] Respiratory Rate 9 L 9 L 12 Blood Pressure 172/74 H 179/90 H 159/64 H Blood Pressure [Ri ght Upper Arm] Pulse Oximetry Oxygen Delivery Me thod 05/25/24 22:33 05/25/24 22:34 05/25/24 22:37 Temperature Pulse Rate 84 Pulse Rate [Pulse Oximeter] Respiratory Rate 12 12 12 Blood Pressure 197/72 H 180/62 H Blood Pressure [Ri ght Upper Arm] Pulse Oximetry 95 Oxygen Delivery Me thod Room Air 05/25/24 22:38 05/25/24 22:40 05/25/24 22:43 Temperature Pulse Rate 85 86 Pulse Rate [Pulse Oximeter] Respiratory Rate 15 12 12 Blood Pressure 185/90 H 230/96 H Blood Pressure [Ri ght Upper Arm] Pulse Oximetry 95 93 Oxygen Delivery Me thod 05/25/24 22:45 05/25/24 22:47 05/25/24 22:52 Temperature Pulse Rate 83 85 84 Pulse Rate [Pulse Oximeter] Respiratory Rate 12 16 13 Blood Pressure 229/93 H 224/93 H Blood Pressure [Ri ght Upper Arm] Pulse Oximetry 93 94 95 Oxygen Delivery Me thod 05/25/24 22:58 05/25/24 23:00 05/25/24 23:03 Temperature Pulse Rate 81 81 80 Pulse Rate [Pulse Oximeter] Respiratory Rate 18 14 13 Blood Pressure 232/76 H 218/71 H Blood Pressure [Ri ght Upper Arm] Pulse Oximetry 93 94 94 Oxygen Delivery Me thod 05/25/24 23:07 05/25/24 23:12 05/25/24 23:15 Temperature Pulse Rate 85 76 79 Pulse Rate [Pulse Oximeter] Respiratory Rate 13 8 L 10 L Blood Pressure 216/81 H 221/78 H Blood Pressure [Ri ght Upper Arm] Pulse Oximetry 94 93 94 Oxygen Delivery Me thod 05/25/24 23:17 05/25/24 23:23 05/25/24 23:24 Temperature Pulse Rate 79 78 77 Pulse Rate [Pulse Oximeter] Respiratory Rate 10 L 7 L 6 L Blood Pressure 199/84 H 207/67 H Blood Pressure [Ri ght Upper Arm] Pulse Oximetry 93 94 91 Oxygen Delivery Me thod 05/25/24 23:27 05/25/24 23:30 05/25/24 23:33 Temperature Pulse Rate 78 83 82 Pulse Rate [Pulse Oximeter] Respiratory Rate 12 13 12 Blood Pressure 210/69 H 196/68 H Blood Pressure [Ri ght Upper Arm] Pulse Oximetry 93 91 93 Oxygen Delivery Me thod <Daniel Hastings MD - Last Filed: 05/25/24 23:39> Course Vital Signs Vital signs: Initial Vital Signs Pulse Rate 90 05/25/24 19:26 Blood Pressure 225/99 H 05/25/24 19:26 Blood Pressure Mean 141 H 05/25/24 19:26 Pulse Oximetry 100 05/25/24 19:26 Vital Signs Pulse Rate 90 05/25/24 19:26 Blood Pressure 225/99 H 05/25/24 19:26 Pulse Oximetry 100 05/25/24 19:26 Temperature 98.1 F 05/25/24 20:05 Pulse Rate 82 05/25/24 23:33 Respiratory Rate 12 05/25/24 23:33 Blood Pressure 196/68 H 05/25/24 23:33 Pulse Oximetry 93 05/25/24 23:33 Oxygen Delivery Method Room Air 05/25/24 22:37 <Cuong Cardoza DO - Last Filed: 05/25/24 20:32> Initial Vital Signs Pulse Rate 90 05/25/24 19:26 Blood Pressure 225/99 H 05/25/24 19:26 Blood Pressure Mean 141 H 05/25/24 19:26 Pulse Oximetry 100 05/25/24 19:26 Vital Signs Pulse Rate 90 05/25/24 19:26 Blood Pressure 225/99 H 05/25/24 19:26 Pulse Oximetry 100 05/25/24 19:26 Temperature 98.1 F 05/25/24 20:05 Pulse Rate 82 05/25/24 23:33 Respiratory Rate 12 05/25/24 23:33 Blood Pressure 196/68 H 05/25/24 23:33 Pulse Oximetry 93 05/25/24 23:33 Oxygen Delivery Method Room Air 05/25/24 22:37 <Daniel Hastings MD - Last Filed: 05/25/24 23:39> Medications Administered Medications: Generic Name Dose Route Start Last Admin Trade Name Freq PRN Reason Stop Dose Admin Nitroglycerin/Dextrose 25,000 mcg in 250 mls @ 3 mls/hr 05/25/24 20:27 05/25/24 23:23 Nitroglycerin/Dextrose IVPB 6 mcg/min .TITRATE PRN 3.6 mls/hr Infusion Protocol 5 MCG/MIN Discontinued Medications Generic Name Dose Route Start Last Admin Trade Name Freq PRN Reason Stop Dose Admin Labetalol HCl 20 mg 05/25/24 19:01 05/25/24 19:19 Labetalol Hcl 5 Mg/Ml Inj IVP 05/25/24 19:02 20 mg ONCE ONE Administration <Cuong Cardoza DO - Last Filed: 05/25/24 20:32> Generic Name Dose Route Start Last Admin Trade Name Freq PRN Reason Stop Dose Admin Nitroglycerin/Dextrose 25,000 mcg in 250 mls @ 3 mls/hr 05/25/24 20:27 05/25/24 23:23 Nitroglycerin/Dextrose IVPB 6 mcg/min .TITRATE PRN 3.6 mls/hr Infusion Protocol 5 MCG/MIN Discontinued Medications Generic Name Dose Route Start Last Admin Trade Name Freq PRN Reason Stop Dose Admin Labetalol HCl 20 mg 05/25/24 19:01 05/25/24 19:19 Labetalol Hcl 5 Mg/Ml Inj IVP 05/25/24 19:02 20 mg ONCE ONE Administration <Daniel Hastings MD - Last Filed: 05/25/24 23:39> Medical Decision Making MDM Narrative Medical decision making narrative: Patient is a 78-year-old female presenting to the emergency department for altered mental status. The differential diagnosis of altered mental status is broad and includes infection, electrolyte abnormalities, ACS, dehydration, intercranial abnormality, hypoxia, metabolic causes, hypertensive encephalopathy, toxins, overdose/withdrawal, acute psychiatric illness etc. she is on dialysis or electrolyte abnormalities will be checked out. Will do magnesium, CMP. Will also check for cardiac abnormalities with a EKG and troponin. Concern are any disease were not spicy troponin mildly elevated. Also order BMP which is likely be elevated any way and the patient like this. Urinalysis will be done to check for signs of a UTI as she does produce some urine. COVID flu and RSV test will also be ordered. Would straight to the CT scanner for head due to the code stroke called EMS. When she was evaluated about a code stroke was canceled. I will hold off on doing any CT scans with contrast this does produce some urine. Will do CT scan of the chest though as she does have a history of lung cancer and a recent hospitalization. Will check for pneumonia. [facility] is concerned at this time is due to her hypertension. Was 240/80 has was 225 systolic here in the emergency department and so I will order labetalol which was given as soon as the patient returned from CT. CBC returns with a white count 22.69. Lactate and blood cultures were ordered. She initially had a blood pressure come down after the labetalol bowel went back up. This due to that I will put her on a drip to control her blood pressures. Considering her previous notes showed some likely undiagnosed COPD I will hold off on further knee labetolol and switched to nitroglycerin. Patient signed out to my colleague. Expected disposition is transfer to [facility]. I do believe this is a hypertensive encephalopathy. <Cuong Cardoza, - Last Filed: 05/25/24 20:32> Patient is a 78-year-old female presenting to the emergency department for altered mental status. The differential diagnosis of altered mental status is broad and includes infection, electrolyte abnormalities, ACS, dehydration, intercranial abnormality, hypoxia, metabolic causes, hypertensive encephalopathy, toxins, overdose/withdrawal, acute psychiatric illness etc. she is on dialysis or electrolyte abnormalities will be checked out. Will do magnesium, CMP. Will also check for cardiac abnormalities with a EKG and troponin. Concern are any disease were not spicy troponin mildly elevated. Also order BMP which is likely be elevated any way and the patient like this. Urinalysis will be done to check for signs of a UTI as she does produce some urine. COVID flu and RSV test will also be ordered. Would straight to the CT scanner for head due to the code stroke called EMS. When she was evaluated about a code stroke was canceled. I will hold off on doing any CT scans with contrast this does produce some urine. Will do CT scan of the chest though as she does have a history of lung cancer and a recent hospitalization. Will check for pneumonia. [facility] is concerned at this time is due to her hypertension. Was 240/80 has was 225 systolic here in the emergency department and so I will order labetalol which was given as soon as the patient returned from CT. CBC returns with a white count 22.69. Lactate and blood cultures were ordered. She initially had a blood pressure come down after the labetalol bowel went back up. This due to that I will put her on a drip to control her blood pressures. Considering her previous notes showed some likely undiagnosed COPD I will hold off on further knee labetolol and switched to nitroglycerin. Patient signed out to my colleague. Expected disposition is transfer to [facility]. I do believe this is a hypertensive encephalopathy. Darling -- inherited this patient at change of shift pending CT imaging of chest and improvement in blood pressure and was just initiated on a nitroglycerin drip. Preliminary diagnosis was hypertensive encephalopathy. Improvement in mentation as described prior. Able to carry on conversations but does seem to have some difficulty with recall or sometime spaces off for just does not answer some questions. I think that is not managing her medications properly. It appears that she is in charge of her own medications. Reviewing code status with patient later I would consider her full code Indication: Altered mental status. Technique: Noncontrast CT images of the brain. Comparison: MRI brain 05/06/2024. Findings: [id number] diffuse cerebral volume loss. No mass effect or midline shift. Rubin-white differentiation is maintained. No acute intracranial hemorrhage or pathologic extra-axial fluid collection. Suggested mild chronic microvascular ischemic changes. Intracranial atherosclerotic calcifications. Thinning of the ocular lenses. The calvarium is intact. Minimal paranasal sinus mucosal thickening. Mastoid air cells are clear. Impression: ImpressionNo acute intracranial hemorrhage or mass effect. Please note that all CT scans at this facility use dose modulation, iterative reconstruction, and/or weight-based dosing when appropriate to reduce radiation dose to as low as reasonably achievable. Dictated by Bi Borden MD @ 05/25/2024 7:22:03 PM INDICATION: Transient alteration of awareness, recent hospitalization and lung cancer TECHNIQUE: CT chest without i.v. contrast. Coronal and sagittal reformats were obtained. COMPARISON: 04/05/2024 FINDINGS: Cardiovascular: The heart has an unremarkable appearance and size. The main pulmonary artery is mildly enlarged measuring 3 cm. No sign of aneurysm seen in the thoracic aorta. The presence of aortic dissection cannot be evaluated without the use of intravenous contrast. Mediastinum: See comments in the Lung section. Lung: Masslike consolidation is present in the anterior left upper lobe measuring 7 cm in diameter and abutting the mediastinal border and right hilum. A lobulated mass is present in the right middle lobe measuring 3.3 x 2.5 cm and not significantly changed from prior examination which may represent a metastatic or synchronous malignancy. Mild centrilobular emphysema is present bilaterally. Mosaic attenuation is seen in the right lung base. Pleura and pericardium: No sign of pleural effusion seen. No significant pericardial effusion is present. Chest wall and axilla: No mass or adenopathy seen. Bone: Unremarkable for age. Upper abdomen: Unremarkable. IMPRESSION: 1. Masslike consolidation is present in the anterior left upper lobe measuring 7 cm in diameter and abutting the mediastinal border and right hilum. This may be due to a central obstructing mass with peripheral pneumonitis or postobstructive atelectasis. The region of consolidation has increased in size since prior examination. Dictated by Andrés Vega MD @ 05/25/2024 9:21:[address] images of head and chest. Notable mass in the upper left lobe my read. Mass in chest has enlarged since last imaged for comparison by Radiology. Blood pressures have improved to equal to her better than 25% reduction in MAP. And mentation generally improved. Discussed with our hospitalist here for admission but unable to do so as no dialysis available. [facility] has immediate availability. Anticipating transfer there although Ms. Daly is reluctant to go due to anticipated transport problem on return; no vehicle available to family. Unclear how she returned from last hospitalization as she can not answer this question. Are attempting to clarify. Anticipating transport to [place] after conversation with admitting physician <Daniel Hastings MD - Last Filed: 05/25/24 23:39> Medical Records Medical records reviewed: Yes I reviewed the patient's medical records <Daniel Hastings MD - Last Iglesia ed: 05/25/24 23:39> Lab Data Lab results reviewed: Yes I reviewed the patient's lab results <Daniel Hastings MD - Last Filed: 05/25/24 23:39> Labs: Lab Results 05/25/24 05/25/24 05/25/24 Range/Units 19:20 20:00 20:20 WBC 22.69 H (4.50-11.00) K/uL RBC 2.99 L (4.00-5.20) m/uL Hgb 8.4 L (12.0-16.0) gm/dL Hct 27.4 L (33.0-51.0) % MCV 92 (80-100) fL MCH 28 (26-34) pg MCHC 31 L (32-36) gm/dL RDW Coeff of Margaret 17.2 H (11.5-15.5) % Plt Count 467 H (140-440) K/uL Neut % (Auto) 90.1 H (42.0-72.0) % Lymph % (Auto) 4.3 L (20-44) % Perkins % (Auto) 4.1 (0.0-11.0) % Eos % (Auto) 0.3 (0.0-7.0) % Baso % (Auto) 0.1 (0.0-3.0) % Neut # (Auto) 20.40 H (1.7-7.0) K/uL Lymph # (Auto) 1.00 (0.90-2.90) K/uL Perkins # (Auto) 0.90 (0.00-0.90) K/UL Eos # (Auto) 0.10 (0.00-0.50) K/uL Baso # (Auto) 0.00 (0.00-0.30) K/uL Abs Immat Gran (auto) 0.20 (0.00-0.30) K/uL Imm/Tot Granulo (auto) 1.1 % Diff Slide Review Acceptable Review (Acceptable) Sodium 136 (135-149) mmol/L Potassium 4.6 (3.6-5.1) mmol/L Chloride 97 (96-114) mmol/L Carbon Dioxide 29 (20-32) mmol/L Anion Gap 10 (7-15) mEq/L BUN 34 H (7-30) mg/dL Creatinine 3.2 H (0.5-1.5) mg/dL Estimated GFR 14 ml/min Glucose 153 H (60-115) mg/dL Lactate 1.0 (0.5-1.9) mmol/L Calcium 9.3 (8.4-10.6) mg/dL Magnesium 2.3 (1.5-2.6) mg/dL Total Bilirubin 0.5 (0.1-1.5) mg/dL AST 37 H (12-35) U/L ALT 23 (4-35) U/L Alkaline Phosphatase 169 H (40-150) U/L Troponin I 0.09 H* (0.01-0.04) ng/mL NT-Pro-B Natriuret Pep [id number] pg/mL Total Protein 7.9 (6.0-8.3) g/dL Albumin 3.8 (3.3-5.0) g/dL SARS-CoV-2 (PCR) Negative SARS-CoV-2 (Negative) Influenza Type A (PCR) Negative PCR FLU A (Negative) Influenza Type B (PCR) Negative PCR FLU B (Negative) RSV (PCR) Negative PCR RSV (Negative) Lab Acknowledgement Test Added <Cuong Cardoza, DO - Last Filed: 05/25/24 20:32> Lab Results 05/25/24 05/25/24 05/25/24 Range/Units 19:20 20:00 20:20 WBC 22.69 H (4.50-11.00) K/uL RBC 2.99 L (4.00-5.20) m/uL Hgb 8.4 L (12.0-16.0) gm/dL Hct 27.4 L (33.0-51.0) % MCV 92 (80-100) fL MCH 28 (26-34) pg MCHC 31 L (32-36) gm/dL RDW Coeff of Margaret 17.2 H (11.5-15.5) % Plt Count 467 H (140-440) K/uL Neut % (Auto) 90.1 H (42.0-72.0) % Lymph % (Auto) 4.3 L (20-44) % Perkins % (Auto) 4.1 (0.0-11.0) % Eos % (Auto) 0.3 (0.0-7.0) % Baso % (Auto) 0.1 (0.0-3.0) % Neut # (Auto) 20.40 H (1.7-7.0) K/uL Lymph # (Auto) 1.00 (0.90-2.90) K/uL Perkins # (Auto) 0.90 (0.00-0.90) K/UL Eos # (Auto) 0.10 (0.00-0.50) K/uL Baso # (Auto) 0.00 (0.00-0.30) K/uL Abs Immat Gran (auto) 0.20 (0.00-0.30) K/uL Imm/Tot Granulo (auto) 1.1 % Diff Slide Review Acceptable Review (Acceptable) Sodium 136 (135-149) mmol/L Potassium 4.6 (3.6-5.1) mmol/L Chloride 97 (96-114) mmol/L Carbon Dioxide 29 (20-32) mmol/L Anion Gap 10 (7-15) mEq/L BUN 34 H (7-30) mg/dL Creatinine 3.2 H (0.5-1.5) mg/dL Estimated GFR 14 ml/min Glucose 153 H (60-115) mg/dL Lactate 1.0 (0.5-1.9) mmol/L Calcium 9.3 (8.4-10.6) mg/dL Magnesium 2.3 (1.5-2.6) mg/dL Total Bilirubin 0.5 (0.1-1.5) mg/dL AST 37 H (12-35) U/L ALT 23 (4-35) U/L Alkaline Phosphatase 169 H (40-150) U/L Troponin I 0.09 H* (0.01-0.04) ng/mL NT-Pro-B Natriuret Pep [id number] pg/mL Total Protein 7.9 (6.0-8.3) g/dL Albumin 3.8 (3.3-5.0) g/dL SARS-CoV-2 (PCR) Negative SARS-CoV-2 (Negative) Influenza Type A (PCR) Negative PCR FLU A (Negative) Influenza Type B (PCR) Negative PCR FLU B (Negative) RSV (PCR) Negative PCR RSV (Negative) Lab Acknowledgement Test Added <Daniel Hastings MD - Last Filed: 05/25/24 23:39> ECG Data Attestation: I personally reviewed and interpreted this ECG as follows: <Cuong Cardoza DO - Last Filed: 05/25/24 20:32> Prior ECG tracings: available for review <Cuong Cardoza DO - Last Filed: 05/25/24 20:32> Interpretation: Normal sinus rhythm with a rate of 72 beats per minute, normal intervals, normal axis, ST or T-wave abnormalities. <Cuong Cardoza DO - Last Filed: 05/25/24 20:32> Critical Care Time Critical Care Time Critical Care Time: Yes Attestation: The patient required my highest level preparedness to intervene emergently and I personally spent this critical care time directly and personally managing the patient. This critical care time included: Obtaining a history; Examining the patient; Pulse oximetry; Ordering and reviewing of studies; Arranging urgent treatment with development of a management plan; Evaluation of patients response to treatment; Frequent reassessment discussions with other providers. This critical care time was performed to assess and manage the high probability of imminent life-threatening deterioration that could result in multiorgan failure. It was exclusive of separate billable procedures and treating other patients and teaching time. <Cuong Cardoza DO - Last Filed: 05/25/24 20:32> Total Critical Care Time in Minutes: 47 <Cuong Cardoza DO - Last Filed: 05/25/24 20:32> Discharge Plan Discharge Clinical Impression: Hypertensive emergency, Acute alteration in mental status <Cuong Cardoza DO - Last Filed: 05/25/24 20:32> Patient Disposition: Xfer Other <Cuong Cardoza DO - Last Filed: 05/25/24 20:32> Discharge Location: [facility] <Cuong Cardoza DO - Last Filed: 05/25/24 20:32> Condition: Guarded <Cuong Cardoza DO - Last Filed: 05/25/24 20:32> Prescriptions: No [facility] furosemide 40 mg tablet 40 mg PO QAM sennosides [senna] 8.6 mg tablet 8.6 - 34.4 mg PO DAILY PRN clonidine HCl 0.1 mg tablet 0.1 mg PO DIRECTED Rx Instructions: TAKE 2 TABLETS BY MOUTH IN THE MORNING, AND TAKE 3 TABLETS BY MOUTH AT BEDTIME albuterol sulfate 2.5 mg /3 mL (0.083 %) solution for nebulization 2.5 mg Q4H PRN (Reason: dyspnea) labetalol 300 mg tablet 300 mg PO 3XD sorbitol 70 % solution 30 ml PO DAILY PRN (Reason: constipation) repaglinide 1 mg tablet 1 mg PO 3XD oxycodone 5 mg tablet 5 mg PO BID PRN aspirin 81 mg capsule 81 mg PO DAILY albuterol sulfate 90 mcg/actuation HFA aerosol inhaler 2 puff inhalation BID calcium acetate(phosphat bind) 667 mg capsule 1,334 mg PO 3XD Bion Tears (PF) 0.1-0.3 % dropperette 1 drp ophthalmic (eye) DIRECTED ipratropium-albuterol 0.5 mg-3 mg(2.5 mg base)/3 mL solution for nebulization 3 ml INHALATION Q6H PRN (Reason: dyspnea) spironolactone 25 mg tablet 25 mg PO DAILY nifedipine 90 mg tablet extended release 24hr 90 mg PO DAILY pantoprazole 40 mg tablet,delayed release (DR/EC) 40 mg PO BID Incruse Ellipta 62.5 mcg/actuation blister with device 1 inh INHALATION DAILY triamcinolone acetonide 0.1 % cream topical BID nifedipine 60 mg tablet extended release 24hr PO cefdinir 300 mg capsule Patient Comments: [NO ORIGINAL SIG] azithromycin 500 mg tablet DAILY fluticasone propion-salmeterol [Advair Diskus] 250-50 mcg/dose blister with device 1 inh inhalation Q12H cetirizine erythromycin ointment <Cuong Cardoza DO - Last Filed: 05/25/24 20:32> Stand Alone Forms: [facility] Info Instructions <Cuong Cardoza DO - Last Filed: 05/25/24 20:32>
[2024-05-25 20:11] LABS: Chloride* 97 mmol/L (96-114); PCR FLU A Negative PCR FLU A (Negative); PCR FLU B Negative PCR FLU B (Negative); PCR RSV Negative PCR RSV (Negative); SARS PCR* Negative SARS-CoV-2 (Negative)
[2024-05-25 20:12] LABS: Albumin* 3.8 g/dL (3.3-5.0); Potassium* 4.6 mmol/L (3.6-5.1); Sodium* 136 mmol/L (135-149)
[2024-05-25 20:14] LABS: Blood Urea Nitrogen* 34 mg/dL (7-30); Creatinine* 3.2 mg/dL (0.5-1.5); Estimated Glomerular Filt Rate 14 ml/min
[2024-05-25 20:15] LABS: Alanine Aminotransferase* 23 U/L (4-35); Alkaline Phosphatase* 169 U/L (40-150); Anion Gap 10 mEq/L (7-15); Aspartate Amino Transferase* 37 U/L (12-35); Bilirubin Total* 0.5 mg/dL (0.1-1.5); Calcium* 9.3 mg/dL (8.4-10.6); Carbon Dioxide* 29 mmol/L (20-32); Glucose* 153 mg/dL (60-115); Total Protein* 7.9 g/dL (6.0-8.3)
[2024-05-25 20:27] LABS: Troponin I* 0.09 ng/mL (0.01-0.04)
[2024-05-25 20:32] LABS: Slide Review Acceptable Review (Acceptable)
[2024-05-25 20:53] LABS: NT Pro B Type NatriureticPept* 169000 pg/mL
[2024-05-25 21:05] LABS: Magnesium* 2.3 mg/dL (1.5-2.6)
[2024-05-25] MEDS: NITROGLYCERIN/DEXTROSE 25,000 MCG/250 ML BOTTLE 3 MCG IVPB (21:21)
== END 2024-05-26 00:24 | disposition other institution (70) ==
PROVIDERS: Emergency Provider Student in an Organized Health Care Education/Training Program; PCP Family Medicine
DX: I16.1 Hypertensive emergency (principal); R41.82 Altered mental status, unspecified
CPT/HCPCS: 36415; 70450; 71250; 80053; 81001; 83605; 83735; 83880; 84484; 85025; 87040; 87631; 93005; 99285; 99291

== ENCOUNTER 2024-05-26 00:08 | Outpatient (CLI) | payer MEDICARE, SELFPAY | END 2024-05-26 00:09 | disposition home or self-care (01) | LOC: AMB 05-27 10:17 | PROVIDERS: PCP Family Medicine; Visit Provider Family Medicine | DX: I16.1 Hypertensive emergency (principal); R41.82 Altered mental status, unspecified | CPT/HCPCS: A0425; A0434 ==

== ENCOUNTER 2024-06-03 22:12 | Outpatient (CLI) | payer MEDICARE, SELFPAY | END 2024-06-03 22:13 | disposition home or self-care (01) | LOC: AMB 06-05 09:50 | PROVIDERS: PCP Family Medicine; Visit Provider Family Medicine | DX: S01.81XA Laceration without foreign body of other part of head, initial encounter (principal); S09.90XA Unspecified injury of head, initial encounter; W18.30XA Fall on same level, unspecified, initial encounter; Y92.524 Gas station as the place of occurrence of the external cause | CPT/HCPCS: A0425; A0427 ==

== ENCOUNTER 2024-06-03 22:23 | Emergency (ER) | payer MEDICARE, SELFPAY ==
--- OUTSIDE RECORDS SUMMARY | 2024-06-03 22:25 | XMS_ITS | CONTINUITY OF CARE DOCUMENT ---
Author Name User, QIE Address [address] [place] [address] Organization [facility] Address [address] [facility] [address] [place] [address] Phone [phone] Care Team Providers Care Diamond Sander Name Role Phone User, QIE Unavailable Unavailable PROBLEMS Condition Status Date Provider Notes Organizati on CKD STAGE ESRD ON DIALYSIS GFR <15 active Shakira Jacobs GUTTER INSTALLER GUTTER INSTALLER, [address] [place] [address] [facility] [place] VITAL SIGNS Date Observation Value Provider Organization blood pressure, diastolic 58 mm[Hg] Padmaja Das RN RN, [address] [place] [address] [address] [facility] [place] blood pressure, systolic 141 mm[Hg] Padmaja Das RN RN, [address] [place] [address] [address] [facility] [place] respiratory rate E&M 16 /min Padmaja Solares RN RN, [address] [place] [address] [address] [facility] [place] pulse rate 56 /min Padmaja Das RN RN, [address] [place] [address] [address] [facility] [place] blood pressure, site #1 Upper arm Padmaja Das RN RN, [address] [place] [address] [address] [facility] [place] blood pressure, diastolic, right arm 58 mm[Hg] Padmaja Das RN RN, [address] [place] [address] [address] [facility] [place] blood pressure, systolic, right arm 141 mm[Hg] Padmaja Das RN RN, [address] [place] [address] [facility] [place] temperature E&M 98.0 [degF] Padmaja Das RN RN, [address] [facility] [address] [facility] Body Mass Index (Ratio) 19.46 kg/m2 Padmaja Das RN RN, [address] [facility] [address] [facility] [place] height E&M 62 [in_i] Padmaja Das RN RN, [address] [facility] [address] [place] [address] [facility] [place] weight E&M 106 [lb_av] Padmaja Das RN RN, [address] [facility] [address] [place] [address] [facility] [place] ALLERGIES Allergy Name Onset Date Reaction Criticality Status Provider Organization DIGIFAB itching Low Criticality active Padmaja Das RN RN, [address] [facility] [address] [facility] GATIFLOXACIN nausea Low Criticality active Ginger Lundahl RDMS, RVT RDMS, RVT, [address] [facility] [address] [facility] PRAVASTATIN SODIUM myalgia Low Criticality active Ginger Lundahl RDMS, RVT RDMS, RVT, [address] [facility] [address] [facility] VITEYES OMEGA-3 itching Low Criticality active Ginger Lundahl RDMS, RVT RDMS, RVT, [address] [facility] [address] [facility] OAK rash Low Criticality active Ginger Lundahl RDMS, RVT RDMS, RVT, [address] [facility] [address] [facility] NIACIN itching Low Criticality active Ginger Lundahl RDMS, RVT RDMS, RVT, [address] [facility] [address] [facility] LOSARTAN POTASSIUM itching Low Criticality active Ginger Lundahl RDMS, RVT RDMS, RVT, [address] [facility] [address] [facility] LISINOPRIL rash Low Criticality active Ginger Lundahl RDMS, RVT RDMS, RVT, [address] [facility] [address] [facility] LIPITOR myalgia Low Criticality active Ginger Lundahl RDMS, RVT RDMS, RVT, [address] [place] [address] [facility] HYDROCHLOROTHIAZIDE had significant pruritic rash High Criticality active Ginger Lundahl RDMS, RVT RDMS, RVT, [address] [facility] [address] [facility] GEMFIBROZIL itching Low Criticality active Ginger Lundahl RDMS, RVT RDMS, RVT, [address] [facility] [address] [facility] BUCIO edema Low Criticality active Ginger Lundahl RDMS, RVT RDMS, RVT, [address] [facility] [address] [facility] CATS SOB SOB High Criticality active Ginger Lundahl RDMS, RVT RDMS, RVT, [address] [facility] [address] [facility] ATENOLOL rash Low Criticality active Ginger Lundahl RDMS, RVT RDMS, RVT, [address] [facility] [address] [facility] AMPICILLIN hives Low Criticality active Ginger Lundahl RDMS, RVT RDMS, RVT, [address] [facility] [address] [facility] RESULTS Date Observation Value Provider Organization Refer ence Range Interpretation Location blood glucose, finger stick 161 Padmaja Das RN RN, [address] [facility] [address] [facility] HISTORY OF MEDICATION USE Medication Instructions Status Dates Provider Indications Com ments Organization triamcinolone acetonide 0.1% cream active Tamela Karl , [address] [facility] [address] [facility] sorbitol 70% solution TAKE 30 ML BY MOUTH ONCE A DAY NEEDED FOR CONSTIPATION* active Tamela Karl , [address] [facility] [address] [facility] [address] [facility] senna 8.6 mg tablet take 1-4 tablets by mouth once daily as needed to achieve 2-3 soft bowel movements daily active Tamela Barajas , [address] [facility] [address] [facility] [address] [facility] furosemide 40 mg tablet 1 tablet once a day active [address] [place] [address] [facility] labetalol 300 mg tablet as directed active [address] [facility] [address] [facility] moxifloxacin 0.5% drops as directed active [address] [place] [address] [facility] mupirocin 2% ointment as directed active [address] [facility] [address] [facility] pantoprazole 40 mg tablet,delayed release (DR/EC) 1 tablet twice a day active [address] [facility] [address] [facility] repaglinide 1 mg tablet 1 tablet three times a day active [address] [facility] [address] [facility] TYLENOL WITH CODEINE #3 300-30 MG ORAL TABLET 1-2 tablet every four to six hours as needed completed 05/19 - 04/[address] [facility] [address] [facility] Cipro 500 mg tablet Take 1 tablet by mouth once a day completed 05/19 - 04/[address] [facility] [address] [facility] sodium bicarbonate 650 mg tablet 1 tablet twice a day completed 02/22 - 04/[address] [facility] [address] [facility] labetalol 200 mg tablet 2 tablet twice a day completed 02/22 - 04/[address] [facility] [address] [facility] Levsin 0.125 mg tablet 1-2 tablet every four hours as needed completed 02/22 - 04/[address] [facility] [address] [facility] glipizide 10 mg tablet 2 tablet once a day active 02/22 Ginger Lundahl RDMS, RVT RDMS, RVT, [address] [place] [address] [address] [facility] [address] [facility] ADVAIR DISKUS 250-50 MCG/DOSE INHALATION AEROSOL POWDER BREATH ACTIVATED 1 puff every twelve hours completed 02/22 - 04/[address] [facility] [address] [facility] clonidine HCl 0.2 mg tablet 2 tablet every night active 02/22 Gingermichell Engelahl RDMS, RVT RDMS, RVT, [address] [place] [address] [address] [facility] [address] [facility] cetirizine 10 mg tablet 1 tablet once a day completed 02/22 - 04/[address] [facility] [address] [facility] calcitriol 0.25 mcg capsule 1 capsule once a day completed 02/22 - 04/[address] [facility] [address] [facility] bisacodyl 10 mg suppository once a day completed 02/22 - 04/[address] [facility] [address] [facility] aspirin 81 mg tablet,delayed release (DR/EC) 1 tablet once a day completed 02/22 - 04/[address] [facility] [address] [facility] amlodipine 10 mg tablet 1 tablet twice a day active 02/22 Ginger Engelahl RDMS, RVT RDMS, RVT, [address] [place] [address] [address] [facility] [address] [facility] albuterol sulfate 2.5 mg/3 mL (0.083 %) solution for nebulization Inhale 3 ml every four hours as needed active 02/22 Ginger Lundahl RDMS, RVT RDMS, RVT, [address] [place] [address] [address] [facility] [address] [facility] SOCIAL HISTORY Date Observation Value Provider Organization site on body for surgical procedure brachiobasilic fistula Mahogany Rm MD, MD, [address] [facility] [address] [facility] social history reviewed E&M reviewed - no changes required Padmaja Das RN RN, [address] [facility] [address] [facility] [address] [facility] [place] INSURANCE PROVIDERS Payer name Policy type / Coverage type [employer] ID [employer] - BCBS [id number] MEDICARE [id number] HISTORY OF PROCEDURES Procedure Date Procedure Name Provider Procedure Notes Status Organization SNOMED-CT: [id number] Current Medications Documented Mahogany Rm MD, MD, [address] [facility] [address] completed [facility] INJECTION FENTANYL CITRATE 100MCG Mahogany Rm MD, MD, [address] [place] [address] completed [facility] INJECTION MIDAZOLAM HCL PER 1 MG Mahogany Rm MD, MD, [address] [place] [address] completed [facility] Omnipaque-Visipaque Mahogany Rm MD, MD, [address] [facility] [address] 45ml completed [facility] Wire Mahogany Rm MD, MD, [address] [place] [address] completed [facility] Balloon Mahogany Rm MD, MD, [address] [place] [address] completed [facility] Sheath Mahogany Rm MD, MD, [address] [place] [address] completed [facility] INFUS NORMAL SALINE SOLUTION 250 CC Mahogany Rm MD, MD, [address] [place] [address] completed [facility] Angioplasty within including RS&I Mahogany Rm MD, MD, [address] [place] [address] completed [facility] Fistulagram, Dialysis Mahogany Rm MD, MD, [address] [place] [address] completed [facility] Antibiotic-No Order Mahogany Rm MD, MD, [address] [place] [address] completed [facility] Quailty Measures all negative Mahogany Rm MD, MD, [address] [place] [address] completed [facility] SNOMED-CT:HISTORICAL PNEUMOCOCCAL VACCINATION Mahogany Rm MD, MD, [address] [place] [address] completed [facility] SNOMED-CT:PATIENT ENCOUNTER Mahogany Rm MD, MD, [address] [facility] [address] completed [facility]
--- OUTSIDE RECORDS SUMMARY | 2024-06-03 22:25 | XMS_ITS | Clinical Summary ---
Author Organization [facility] Address [address] [place] [address] Care Team Providers Care Business Ethics Professor Name Role Phone Tyrell Schneider Bulmaro Primary Care Provider [phone] Allergies Active Allergy Reactions Criticality Noted Date [...] 01/09/2010 itching Niacin Rash,Itching Low 05/13/2006 itch [place] Rash Low 05/16/2010 Oxycodone Nausea and [...] needed for shortness of breath 3 Active erythromycin (ROMYCIN) 5 MG/GM ophthalmic ointment Place Into the left eye 4 times daily 3 Active neomycin-polymyx in-dexAMETHasone (MAXITROL) 3.5-33141-4.[address] 0.25 inches Into the left eye 4 times daily 3 Active repaglinide (PRANDIN) 1 MG tablet Take 1 tablet by mouth 3 times daily (before meals) 1 Active triamcinolone (KENALOG) 0.1 % external cream Apply topically daily as needed for irritation 1 Active glipiZIDE (GLUCOTROL XL) 10 MG 24 hr tablet Take 20 mg by mouth every morning 3 Active ipratropium - albuterol 0.5 mg/2.5 mg/3 mL (DUONEB) 0.5-2.5 (3) MG/3ML neb solution Inhale 3 mLs into the lungs every 6 hours as needed for shortness of breath 1 Active furosemide (LASIX) 40 MG tablet Take 40 mg by mouth daily Active carboxymethylcel lulose PF (REFRESH PLUS) 0.5 % ophthalmic solution Place 1 drop into both eyes 2 times daily Active pantoprazole (PROTONIX) 40 MG EC tabletIndication s:Anemia, unspecified type Take 1 tablet (40 mg) by mouth 2 times daily (before meals) 60 tablet 3 Active multivitamin RENAL (RENAVITE RX/NEPHROVITE) 1 tablet tablet Take 1 tablet by mouth daily Active cloNIDine (CATAPRES) 0.1 MG tablet Take 0.3 mg by mouth every evening Active senna-docusate (SENOKOT-S/PERIC OLACE) 8.6-50 MG tabletIndication s:Constipation, unspecified constipation type Take 1 tablet by mouth daily as needed for constipation Active nicotine (NICODERM CQ) 14 MG/24HR 24 [...] shortness of breath, wheezing or cough. Active Active Problems Problem Noted Date Diagnosed Date Acute pancreatitis, unspecif ied complication status, unspecified pancreatitis type 02/19/2023 Other emphysema 12/18/2022 Anemia 12/13/2022 ESRD (end stage renal disease) on dialysis 12/13 Acute on chronic anemia 12/13/2022 SOB (shortness of breath) 11/29/2022 COVID 11/24/2022 Encounters Date Type Department Care Team Description 04/27/2024 1:37 PM CDT - 04/27/2024 8:[address] [facility] Emergency Dept [address] [place] [address] Jason Tapia MD Left-sided chest pain; Mass of upper lobe of left lung Discharge Disposition: Home or Self Care 04/27/2024 Results Only [facility] [address] [place] [address] Emanuel Lozano MD 04/27/2024 Travel from Last [...] (once per calendar year) 2024 COVID-19 Vaccine ( season) 2024 11/22/2023, 12/25/2022, [...] CDT RENAL PANEL Routine 12/18/2022 8:45 AM HARDSCAPE FOREMAN OCCULT BLOOD STOOL STAT 12/12/2022 11 :03 PM CDT from Last 3 Months or Most Recently Relevant to Health Maintenance Results * (ABNORMAL) Troponin T, High Sensitivity (04/27/2024 6:12 PM CDT) Only the most recent of3 resultswithin the time period is included. [facility] Troponin T, High Sensitivity 137(HH) <=14 ng/L 04/27/2024 7:07 PM CDT LABORATORY Comment: Either a High [...] MD LAB - BLOOD ORDERABLES Final Result [facility] [address] (1st floor, no room number) [place] [address], [facility] * CT Chest Pulmonary Embolism w [...] CHEST PULMONARY EMBOLISM W CONTRAST LOCATION: [facility] DATE: 04/27/2024 INDICATION: [...] CHEST PULMONARY EMBOLISM W CONTRAST LOCATION: [facility] DATE: 04/27/2024 INDICATION: [...] LOWER EXTREMITY VENOUS DUPLEX RIGHT LOCATION: [facility] DATE: 04/27/2024 INDICATION: [...] LOWER EXTREMITY VENOUS DUPLEX RIGHT LOCATION: [facility] DATE: 04/27/2024 INDICATION: [...] BPM MUSE Atrial Rate 69 BPM MUSE IN Interval 178 ms MUSE QRS Duration 82 ms MUSE QT 394 ms MUSE QTc 422 ms MUSE P [place] 75 degrees MUSE R AXIS 24 degrees MUSE T [place] 80 degrees MUSE Interpretation ECG Sinus rhythm Minimal voltage criteria for LVH, may be normal variant ( Bennie product ) Borderline ECG When compared with ECG of 27-Apr-2024 14:32, (unconfirmed) No significant change was found Unconfirmed report - interpretation of this ECG is computer generated - see medical record for final interpretation Confirmed by - EMERGENCY ROOM, PHYSICIAN ([id number]), design editor Song Cheung ([id number]) on 04/27/2024 3:21:42 PM MUSE 04/27/2024 2:47 PM CDT 04/27/2024 3:21 PM CDT us Emanuel Lozano MD ECG ORDERABLES Edited Result - Final MUSE * Extra Red Top Tube (04/27/2024 1:53 PM CDT) Hold Specimen [facility] 04/27/2024 3:01 PM CDT [facility] LABORATORY Blood BLOOD SPECIMEN / Unknown Venipuncture / Unknown 04/27/2024 1:53 PM CDT 04/27/2024 1:56 PM CDT Jason Tapia MD LAB - BLOOD ORDERABLES Final Result LABORATORY [facility] Care Lab [address] Lab (1st floor, no room number) [place] [phone] * Extra Blue Top Tube (04/27/2024 1:53 PM CDT) [facility] Signature Hold Specimen [facility] 04/27/2024 3:01 PM CDT RH LABORATORY Blood BLOOD SPECIMEN / Unknown Venipuncture / Unknown 04/27/2024 1:53 PM CDT 04/27/2024 1:56 PM CDT Jason Tapia MD LAB - BLOOD ORDERABLES Final Result [facility] Lab [address] Lab (1st floor, no room number) [place] [id number] * (ABNORMAL) CBC with platelets and differential (04/27/2024 1:53 PM CDT) [facility] WBC Count 14.2(H) 4.0 - [...] BLOOD ORDERABLES Final Result Performing Organization Address [facility]/ZIP Co de Phone Number [facility] Acute [facility] Lab [address] [facility] Lab (1st floor, no room number) [place] [address] * (ABNORMAL) D dimer quantitative [...] out pulmonary embolism: The ADJUST-PE Study. REGINA 2014;311:8928-1242.; ASAF Le et al. Diagnostic accuracy of conventional or age adjusted D-dimer cutoff values in older patients with suspected venous thromboembolism. Systemic review and meta-analysis. BMJ 2013:346:f2492. Jason Tapia MD LAB - BLOOD ORDERABLES Final Result Performing Organization Address City/[facility]/ZIP Co de Phone Number [facility] Acute Care Lab [address] Lab (1st floor, no room number) [place] [address], [facility] * (ABNORMAL) Comprehensive metabolic panel (04/27/2024 [...] - 5.2 g/dL 04/27/2024 2:26 PM CDT RH LABORATORY Bilirubin Total 0.2 <=1.2 mg/dL 04/27/2024 2:26 PM CDT LABORATORY Blood BLOOD SPECIMEN / Unknown Venipuncture / Unknown 04/27/2024 1:53 PM CDT 04/27/2024 1:56 PM CDT Jason Tapia MD LAB - BLOOD ORDERABLES Final Result LABORATORY [facility] Acute Care Lab [address] Lab (1st floor, no room number) [place] [address] * (ABNORMAL) Renal panel (12/18/2022 8:45 AM HARDSCAPE FOREMAN) [facility] Sodium 135 135 - 145 mmol/L 12/18/2022 9:44 AM [facility] LABORATORY Comment:Reference intervals for this test were updated on 11/06/2022 to more accurately reflect our healthy population. There may be differences in the flagging of prior results with similar values performed with this method. Interpretation of those prior results can be made in the context of the updated reference intervals. Potassium 4.2 3.4 - 5.3 mmol/L 12/18/2022 9:44 AM [facility]ORATORY Chloride 99 98 - 107 mmol/L 12/18/2022 9:44 AM [facility] Carbon Dioxide (CO2) 29 22 - 29 mmol/L 12/18/2022 9:44 AM [facility] Anion Gap 7 7 - 15 mmol/L 12/18/2022 9:44 AM [facility] Glucose 128(H) 70 - 99 mg/dL 12/18/2022 9:44 AM [facility] Urea Nitrogen 17.7 8.0 - 23.0 mg/dL 12/18/2022 9:44 AM [facility] Creatinine 2.67(H) 0.51 - 0.95 mg/dL 12/18/2022 9:44 AM [facility] GFR Estimate 18(L) >60 mL/min/1. 73m2 12/18/2022 9:44 AM [facility] Calcium 7.6(L) 8.8 - 10.2 mg/dL 12/18/2022 9:44 AM [facility] Albumin 2.6(L) 3.5 - 5.2 g/dL 12/18/2022 9:44 AM [employer] LABORATORY Phosphorus 2.3(L) 2.5 - 4.5 mg/dL 12/18/2022 9:44 AM H[employer]SC[employer] FOR[employer] LABORATORY Blood STRUCTURE OF RIGHT UPPER LIMB / Unknown Venipuncture / Unknown 12/18/2022 8:45 AM HARDSCAPE FOREMAN 12/18/2022 8:50 AM HARDSCAPE FOREMAN us David Treviño MD LAB - BLOOD ORDERABLES Final Res ult [facility] Lab [address] Lab (1st floor, no room number) [place] [address], [facility] [phone] * Stool: occult blood (12/12/2022 11:03 PM CDT) [facility] Occult Blood Negative Negative JENNIFER 12/12/2022 11:32 PM CDT LABORATORY Stool RECTAL CONTENTS / Unknown Non-blood Collection / Unknown 12/12/2022 11:03 PM CDT 12/12/2022 11:11 PM CDT us Jason Tapia MD LAB - STOOLS ORDERABLES Final Result [facility] Lab [address] Lab (1st floor, no room number) [place] [address], [facility] [phone] from Last 3 Months or Most Recently Relevant to Health Maintenance Insurance [facility] MEDICARE ADVANTAGE [employer] MEDICARE ADVANTAGE Advance Directives For more information, please contact: [phone] * Full Code (Latest Code Status on [...] patie nt/ legal decision maker Care Teams Business Ethics Professor Relationship Specialty Start Date End Date Tyrell Schneider [address] [place] [address] PCP - General Family Medicine 02/19/23
--- OUTSIDE RECORDS SUMMARY | 2024-06-03 22:25 | XMS_ITS | Encounter Summary ---
Author Organization [facility] Address [address] [place] [address] Care Team Providers Care Manager Culinary Name Role Phone Tyrell Schneider Primary Care Provider [phone] Encounter Details Date Type Department Care Team (Late st Contact Info) Description 04/27/2024 Results Only [facility] [address] [place] [address] Emanuel Lozano MD [facility] [address], [facility] [address] [place] [address] Social History Tobacco Use Types Packs/Day Years [...] BPM MUSE Atrial Rate 69 BPM MUSE HI Interval 178 ms MUSE QRS Duration 82 ms MUSE QT 394 ms MUSE QTc 422 ms MUSE P [place] 75 degrees MUSE R AXIS 24 degrees MUSE T [place] 80 degrees MUSE Interpretation ECG Sinus rhythm Minimal voltage criteria for LVH, may be normal variant ( Bradley product ) Borderline ECG When compared with ECG of 27-Apr-2024 14:32, (unconfirmed) No significant change was found Unconfirmed report - interpretation of this ECG is computer generated - see medical record for final interpretation Confirmed by - EMERGENCY ROOM, PHYSICIAN ([id number]), news videotape editor Song Cheung ([id number]) on 04/27/2024 3:21:42 PM MUSE 04/27/2024 2:47 PM CDT 04/27/2024 3:21 PM CDT us Emanuel Lozano MD ECG ORDERABLES Edited Result - Final MUSE documented in this encounter Visit Diagnoses Not on filedocumented in this encounter Care Teams Manager Culinary Relationship Specialty Start Date End Date Tyrell Schneider [address] [place] [address] PCP - General Family Medicine 02/19/23 documented as of this encounter
--- OUTSIDE RECORDS SUMMARY | 2024-06-03 22:25 | XMS_ITS ---
Author Name [facility] Address [address] [place] [address] Phone [phone] Organization [facility] e, NA DOCUMENT DISCLAIMER Multiple document versions may exist, please be sure you review the latest version. The information in the [facility] Continuity of Care Document represents a summary [...] Sign Value Date / Time Blood Pressure-sitting 208/91 mmHg May 25, 2024 12:29 PM Heart Rate 96 beats per minute May 25 12:29 PM Respiratory Rate 18 breaths per minute May 25, 2024 12:29 PM Temperature 97.8 deg. F May 25, 2024 1 2:29 PM Weight Vital Sign Value Date / Time Estimated Dry Weight 36.7 kg March 07, 2 025 11:59 PM Pre-Dialysis 38.30 kg May 25, 2024 1 2:29 PM Post-Dialysis 36.10 kg May 25, 2024 1 2:29 PM Other Other Value Date / Time [...] 275 1000/mcL 130 - 400 1000/mcL - [facility]2023 UIBC (Calc) 204 mcg/dL 155 - 355 [...] - February 24, 2024 Hemoglobin x 3 28.8 % 36.0 - 48.0 % Low March 11, 2024 Neutrophils 81.4 % 40.0 - 75.0 % High March Hemoglobin x 3 29.4 % 36.0 - 48.0 % Low Februar y 05, 2025 Platelets 299 1000/mcL 130 - 400 1000/mcL - Febr uary 2024 MCHC 32.1 g/dL 30.0 - 36.0 [...] 11.5 - 14.5 % High April 15, 025 Iron 78 mcg/dL 30 - 160 [...] 0.0 - 1.5 % - April 15 5 JUANITO 1.5 % 0.0 - 4.0 % - April 15 WBC (No Diff) 22.35 1000/mcL 4.80 - 10.80 1000/mcL High April 15, 2024 Neutrophils 87.9 % 40.0 - 75.0 % High April 15, 2024 Lymphocytes 3.8 % 19.0 - 48.0 % April 15, 2024 Monocytes 5.4 % 3.0 [...] 1000/mcL 130 - 400 1000/mcL - Apri l 2024 HGB 8.2 g/dL 12.0 - 16.0 g/dL Low May Hemoglobin x 3 24.6 % 36.0 - 48.0 % May Transferrin Sat. (Calc) 14 % 20 - 55 % Low May 13, 2024 TIBC 184 mcg/dL 185 - 515 mcg/dL Low May UIBC (Calc) 158 mcg/dL 155 - 355 mcg/dL - May RDW 16.9 % 11.5 - 14.5 % High May 13 025 Iron 26 mcg/dL 30 - 160 mcg/dL [...] 65 - 80 % High March 18 BUN 76 mg/dL 6 - 19 mg/dL [...] 1.6 - 2.6 mg/dL - February 112024 PTH-Intact, Plasma 177 pg/mL 16 - 80 pg/mL High Feb ru2024 Calcium, Total 9.8 mg/dL 8.7 - 10.4 mg/dL - ua2024 Phosphorus 3.7 mg/dL 2.6 - 4.5 mg/dL - March 18, 2024 Ca x P Product 36 0 - - March Alkaline Phosphatase 158 U/L 35 - 104 U/L High Fe bruary 2024 Corrected Ca x P Product 37 0 - - March 18 Magnesium 2.2 mg/dL 1.6 - 2.6 mg/dL - March 18, 2024 Ca x P Product 37 0 - - April 15, 2024 Calcium, Total 9.3 mg/dL 8.7 - 10.4 mg/dL - Alfonzo h 2024 Phosphorus 4.0 mg/dL 2.6 - 4.5 [...] l 2024 Ca x P Product 24 May 13, 2024 Corrected Ca x P [...] Effective Date Resuscitation status Full Code Gabriel Sotelosona May 01, 2024 DIALYSIS TREATMENTS Conventional Hemodialysis Date Pre-Treatment Vitals Post-Treatment Jocelyn ls Duration (hr) BFR (mL/min) Dialysate Dialyzer Dialysis Access Meds Admin May 20, 2024 Weight 38.80 kg Weight 37.00 kg 02:45:00 450 2.0 K, 2.5 Ca, 1.0 Mg, 100 Dextrose (G2251) 160nre Optifl ux Blood Pressure-sitting 218/86 mmHg Blood Pressure-sit ting [...] 97.4 deg. F Temperature 97.3 deg. F May 25, 2024 Weight 38.30 kg Weight 36.10 kg 02:23:00 460 2.0 K, 2.5 Ca, 1.0 Mg, 100 Dextrose (G2251) 160nre Optiflux Hemodialysis-AV Fistula-Standard, Left Upper Arm, Brachial Artery to Cephalic Vein Access Placed on March 31, 2018 Heparin Sodium (Porcine) 1,000 Units/mL Systemic; 1999units,Intravenous - push Heparin Sodium (Porcine) 1,000 Units/mL Systemic; 1999units,Intravenous - push Vitamin D (Calcitriol) Oral; 0.25mcg,Oral Blood Pressure-sitting 232/105 mmHg Blood Pressure-sit ting 208/91 mmHg Blood Pressure-standing 241/105 mmHg Heart Rate 96 b eats per minute Heart Rate 99 beats per minute Respiratory Rate 18 b reaths per minute Respiratory Rate 18 breaths per minute Temperature 97.8 deg. F Temperature 97.9 deg. F - -
--- OUTSIDE RECORDS SUMMARY | 2024-06-03 22:25 | XMS_ITS | Encounter Summary ---
Author Organization [facility] Address [address] [place] [address] Care Team Providers Care Aircraft Electronics Technical Officer Name Role Phone Schneider, Tyrell Bulmaro Primary Care Provider [phone] Reason for Visit * Reason Comments Chest Pain Encounter Details Date Type Department Care Team (Late st Contact Info) Description 04/27/2024 1:37 PM CDT - 04/27/2024 8:51 PM CDT Emergency [facility] Emergency Dept [address] [place] [address] Jason Tapia MD [facility] [address] [place], [place] [address] Left-sided chest pain; Mass of upper lobe [...] CDT Follow-up with the cancer clinic in [place] as you already plan to do Use Tylenol for pain or discomfort * Attachments The following attachments cannot be sent through Care Everywhere. * Chest Pain (Bangladeshi) documented in this encounter Medications at Time [...] tablet by mouth daily neomycin-polymyxi n-dexAMETHasone (MAXITROL) 3.5-57334-4.[address] 0.25 inches Into the [...] of end-stage renal disease normally dialyzes in [place]. Did not dialyze today which would have [...] multivitamin RENAL (RENAVITE RX/NEPHROVITE) 1 tablet tablet ygabwtzf-mbbuwuhhq-rbvUCTPBugjee (MAXITROL) 3.5-69851-6.1 ophthalmic ointment nicotine (NICODERM CQ) 14 MG/24HR [...] Pressure Ventricular Rate 75 Atrial Rate 75 SD Interval 178 QRS Duration 86 QT 394 QTc 439 P [place] 81 R AXIS 44 T [place] 91 Interpretation ECG Sinus rhythm Normal ECG [...] prolonged, 1833 Lung biopsy April 07, 2024 [facility] was positive for malignancy, squamous cell carcinoma. Social Determinants of Health affecting care: Disposition: discharge Impression & Plan [facility] Diagnoses: MIPS (If applicable): Medical Decision Making: [...] follow-up with her PCP and oncology in [place]. She was comfortable and agreeable with that [...] pharmacist at primary pharmacy Changes made to GRAVITY PROSPECTING OPERATOR HELPER medication list: Added: calcium acetate, hydralazine, losartan, methocarbamol, nifedipine, spironolactone, Breo inhaler, Albuterol inhaler Deleted: senna, sorbitol, Incruse inhaler, miralax, labetalol, cetirizine, amlodipine Changed: nicotine patch (21 mg --> 14 mg) Allergies reviewed with patient and updates made in EHR: no Medication History Completed By: Tony Alcantar RPH 04/27/2024 5:16 PM GRAVITY PROSPECTING OPERATOR HELPER Med List Medication Sig Note Last Dose/Taking [...] 1 tablet by mouth daily Past Week idkocowg-etcvokzgu-dxoINUZVssfhm (MAXITROL) 3.5-74142-4.[address] 0.25 inches Into the [...] MD LAB - BLOOD ORDERABLES Final Result [facility] Acute Care Lab [address] Lab (1st floor, no room number) [place] [address], [facility] * CT Chest Pulmonary Embolism w Contrast [...] CT CHEST PULMONARY EMBOLISM W CONTRAST LOCATION: [facility] DATE: 04/27/2024 INDICATION: Chest pain, [...] CT CHEST PULMONARY EMBOLISM W CONTRAST LOCATION: [facility] DATE: 04/27/2024 INDICATION: Chest pain, [...] 1.8 cm in short axis (series 6 [id number]) and left prevascular node measuring 1.2 cm [...] US LOWER EXTREMITY VENOUS DUPLEX RIGHT LOCATION: [facility] DATE: 04/27/2024 INDICATION: RLQ pain, [...] US LOWER EXTREMITY VENOUS DUPLEX RIGHT LOCATION: [facility] DATE: 04/27/2024 INDICATION: RLQ pain, [...] fluid collection right groin. Jason Tapia MD [facility] [place] ORDERABLES Final Result * (ABNORMAL) Troponin T, High Sensitivity (04/27/2024 3:52 PM CDT) [facility] Troponin T, High Sensitivity 144(HH) <=14 ng/L [...] - BLOOD ORDERABLES Final Result [facility] LABORATORY [facility] Acute Care Lab [address] Lab (1st floor, no room number) [place] [address], [facility] * (ABNORMAL) D dimer quantitative (04/27/2024 1:53 PM CDT) Pathologist [facility] D-Dimer Quantitative 4.13(H) 0.00 - 0.50 ug/mL [...] out pulmonary embolism: The ADJUST-PE Study. REGINA 2014;311:8678-8300.; ASAF Le et al. Diagnostic accuracy of conventional or age adjusted D-dimer cutoff values in older patients with suspected venous thromboembolism. Systemic review and meta-analysis. BMJ 2013:346:f2492. us Jason Tapia MD LAB - BLOOD ORDERABLES Final Result [facility] Care Lab [address] Lab (1st floor, no room number) [address] * Extra Red Top Tube (04/27/2024 1:53 PM CDT) Hold Specimen [facility] 04/27/2024 3:01 PM CDT RH LABORATORY Blood BLOOD SPECIMEN / Unknown Venipuncture / Unknown 04/27/2024 1:53 PM CDT 04/27/2024 1:56 PM CDT Jason Tapia MD LAB - BLOOD ORDERABLES Final Result Performing Organization Address City/[facility]/ZIP Co de Phone Number [facility] Lab [address] Lab (1st floor, no room number) [address] * Extra Blue Top Tube (04/27/2024 1:53 PM CDT) Hold Specimen [facility] 04/27/2024 3:01 PM CDT RH LABORATORY Blood BLOOD SPECIMEN / Unknown Venipuncture / Unknown 04/27/2024 1:53 PM CDT 04/27/2024 1:56 PM CDT Jason Tapia MD LAB - BLOOD ORDERABLES Final Result [facility] Care Lab [address] Lab (1st floor, no room number) [address] * (ABNORMAL) CBC with platelets and differential (04/27/2024 1:53 PM CDT) Pathologist [facility] WBC Count 14.2(H) 4.0 - 11.0 10e3/uL [...] BLOOD ORDERABLES Final Result Performing Organization Address City/[facility]/ZIP Co de Phone Number [facility] Acute Care Lab [address] Lab (1st floor, no room number) [place] [address] * (ABNORMAL) Troponin T, High Sensitivity (04/27/2024 1:53 PM CDT) [facility] Troponin T, High Sensitivity 135(HH) <=14 ng/L [...] MD LAB - BLOOD ORDERABLES Final Result [facility] Acute Care Lab [address] Lab (1st floor, no room number) [place] [address] * (ABNORMAL) Comprehensive metabolic panel [...] MD LAB - BLOOD ORDERABLES Final Result [facility] Acute Care Lab [address] Lab (1st floor, no room number) [place] [address], [facility] documented in this encounter Visit Diagnoses Diagnosis [...] cloNIDine (CATAPRES) tablet 0.1 mg 0.1 mg (0.49479 mg/kg), Oral, ONCE, On Sat04/27/24 at 1510, [...] (CATAPRES) tablet 0.1 mg (COMPLETED) 0.1 mg (0.24029 mg/kg), Oral, ONCE, On Sat04/27/24 at 1510, [...] RN) documented in this encounter Care Teams Aircraft Electronics Technical Officer Relationship Specialty Start Date End Date Tyrell Schneider [address] [place] [address] PCP - General Family Medicine 02/19/23 documented as of this encounter
--- OUTSIDE RECORDS SUMMARY | 2024-06-03 22:25 | XMS_ITS | Encounter Summary ---
Author Organization [facility] Address [address] [place] [address] Care Team Providers Care Staff Command And Control Officer Name Role Phone Tyrell Schneider Primary Care Provider [phone] Encounter Details Date Type Department Care Team [...] on filedocumented in this encounter Care Teams Staff Command And Control Officer Relationship Specialty Start Date End Date Tyrell Schneider [address] [place] [address] PCP - General Family Medicine 02/19/23 documented as of this encounter
--- NOTE | 2024-06-03 22:31 | CRLHL7_ITS ---
For Patients: As a result of the Cures Act, medical imaging exams and procedure reports are released immediately into your electronic medical record. You may view this report before your referring provider. If you have questions, please contact your health care provider. INDICATION: Fall, head injury, facial trauma. COMPARISON: CT head 05/25/2024. TECHNIQUE: CT of the facial bones without IV contrast. Coronal and sagittal reconstructions. FINDINGS: There is soft tissue swelling in the left anterior frontal scalp and left periorbital region. Few soft tissue gas bubbles likely related to laceration. The globes are intact with symmetric extra-ocular muscles. No sign of intraorbital injury. No acute fracture identified. The paranasal sinuses and mastoid air cells are clear. No air-fluid levels. No bony hyperostosis or areas of bone destruction. The nasal septum is midline. The mandible is intact and the temporomandibular joints are anatomically aligned. The patient is edentulous. Visualized intracranial contents are unremarkable. The imaged cervical spine is grossly negative. IMPRESSION: 1. Soft tissue swelling in the left anterior frontal scalp and left periorbital region. The globes are intact with no sign of intraorbital injury. 2. No acute fracture identified. Please note that all CT scans at this facility use dose modulation, iterative reconstruction, and/or weight-based dosing when appropriate to reduce radiation dose to as low as reasonably achievable. Dictated by Amie Ruiz MD @ 06/03/2024 11:32:48 PM (Electronically Signed)
--- NOTE | 2024-06-03 22:31 | CRLHL7_ITS ---
For Patients: As a result of the Century Cures Act, medical imaging exams and procedure reports are released immediately into your electronic medical record. You may view this report before your referring provider. If you have questions, please contact your health care provider. INDICATION: Fall, head injury. COMPARISON: CT head 05/25/2024. TECHNIQUE: CT of the head without IV contrast. Coronal and sagittal reconstructions. FINDINGS: Brain: No intracranial hemorrhage, abnormal extra-axial fluid collection, or evidence of acute infarct. No mass effect or midline shift. Mild generalized cerebral and cerebellar volume loss with associated ex vacuo dilation of the lateral ventricles. Mild chronic small vessel ischemic disease. Skull base and calvarium: The visualized paranasal sinuses and mastoid air cells are clear. The visualized orbits are grossly unremarkable. No acute fracture identified. Soft tissues: There is soft tissue swelling in the left anterior frontal scalp and left periorbital region. Few soft tissue gas bubbles likely related to laceration. IMPRESSION: 1. No acute intracranial findings. 2. Generalized parenchymal volume loss and mild chronic small vessel ischemic disease. 3. Soft tissue swelling in the left anterior frontal scalp and left periorbital region. Please note that all CT scans at this facility use dose modulation, iterative reconstruction, and/or weight-based dosing when appropriate to reduce radiation dose to as low as reasonably achievable. Dictated by Amie Ruiz MD @ 06/03/2024 11:25:20 PM (Electronically Signed)
--- NOTE | 2024-06-03 22:31 | CRLHL7_ITS ---
For Patients: As a result of the Century Cures Act, medical imaging exams and procedure reports are released immediately into your electronic medical record. You may view this report before your referring provider. If you have questions, please contact your health care provider. INDICATION: Fall, head injury. History of lung cancer. COMPARISON: CT chest 05/25/2024. TECHNIQUE: CT of the cervical spine without IV contrast. Coronal and sagittal reconstructions. FINDINGS: Vertebrae: No acute fracture or suspicious bone lesion. Alignment is normal. Discs and facet joints: Degenerative cystic change in the dens. Disc spaces are maintained. Facet joints are within normal limits. No significant spinal canal stenosis. Extraspinal findings: Visualized intracranial contents and paravertebral soft tissues are unremarkable. Emphysema in the lung apices. Hazy ground-glass in the left apex. IMPRESSION: No acute fracture or traumatic malalignment of the cervical spine. Please note that all CT scans at this facility use dose modulation, iterative reconstruction, and/or weight-based dosing when appropriate to reduce radiation dose to as low as reasonably achievable. Dictated by Amie Ruiz MD @ 06/03/2024 11:40:55 PM (Electronically Signed)
--- NOTE | 2024-06-03 22:32 | PC.NURSE ---
Addendum entered by Selina Obrien RN 06/03/24 22:33: for trauma related injuries. Pt also a dialysis pt Original Note: [place] Morton [place] [facility] [place]
[2024-06-03 22:48] VITALS: BP 187/70; RESP 74; TEMP 36.7; O2SAT 96
--- NOTE | 2024-06-03 22:53 | ED_ITS ---
HPI - Fall General Time Seen by Provider: 22:37 Date Seen: 06/03/24 Chief Complaint: Fall/Minor Trauma Stated Complaint: fall Time Seen by Provider: 06/03/24 22:37 Source: patient, EMS and RN notes reviewed Mode of arrival: EMS Limitations: no limitations History of Present Illness HPI Narrative: This 78-year-old female was brought in by EMS after EMS actually witnessed her fall. They were coming out of [employer] and she essentially tripped in front of them and face planted. She hit the left side of her face. They did put her in C-spine immobilization. She just got out of [facility] today, is a dialysis patient. Blood sugar was 119. Her son was on the way. She has been complaining extreme weakness. She did complain of some headache and EMS noted her to have some confusion. There was no prolonged down time, no loss of consciousness. This again was witnessed by EMS. MD complaint: fall Related Data Home Medications ?Medication ?Instructions ?Recorded ?Confirmed albuterol sulfate 2.5 mg/3 mL 2.5 mg Q4H PRN dyspnea 11/28/22 (0.083 %) solution for nebulization aspirin 81 mg capsule 81 mg PO DAILY 11/28/22 04/04/24 clonidine HCl 0.1 mg tablet 0.1 mg PO DIRECTED 11/28/22 04/04/24 furosemide 40 mg tablet 40 mg PO QAM 11/28/22 04/04/24 labetalol 300 mg tablet 300 mg PO 3XD 11/28/22 04/04/24 oxycodone 5 mg tablet 5 mg PO BID PRN 11/28/22 04/04/24 repaglinide 1 mg tablet 1 mg PO 3XD 11/28/22 04/04/24 sennosides 8.6 mg tablet (senna) 8.6 - 34.4 mg PO DAILY PRN 11/28/22 04/04/24 sorbitol 70 % solution 30 ml PO DAILY PRN constipation 11/28/22 04/04/24 albuterol sulfate 90 mcg/actuation 2 puff inhalation BID 12/03/23 04/04/24 aerosol inhaler calcium acetate(phosphat bind) 667 1,334 mg PO 3XD 12/03/23 12/03/23 mg capsule dextran 70-hypromellose (PF) 0.1 1 drp ophthalmic (eye) DIRECTED 12/03/23 04/04/24 %-0.3 % eye drops in a dropperette (Bion Tears (PF)) ipratropium 0.5 mg-albuterol 3 mg 3 ml inhalation Q6H PRN dyspnea 12/03/23 04/04/24 (2.5 mg base)/3 mL nebulization soln nifedipine 90 mg tablet,extended 90 mg PO DAILY 12/03/23 12/03/23 release 24 hr pantoprazole 40 mg tablet,delayed 40 mg PO BID 12/03/23 12/03/23 release spironolactone 25 mg tablet 25 mg PO DAILY 12/03/23 04/04/24 umeclidinium 62.5 mcg/actuation 1 inh inhalation DAILY 12/03/23 12/03/23 blister powder for inhalation (Incruse Ellipta) azithromycin 500 mg tablet mg DAILY 04/04/24 cefdinir 300 mg capsule mg 04/04/24 cetirizine 04/04/24 erythromycin ointment 04/04/24 fluticasone 250 mcg-salmeterol 50 1 inh inhalation Q12H 04/04/24 04/04/24 mcg/dose blistr powdr for inhalation (Advair Diskus) nifedipine 60 mg tablet,extended mg PO 04/04/24 release 24 hr triamcinolone acetonide 0.1 % applic topical BID 04/04/24 topical cream Allergies Allergy/AdvReac Type Severity Reaction Status Date / Time atenolol Allergy Unknown Rash Verified 12/03/23 19:43 atorvastatin (From Lipitor) Allergy Unknown Verified 12/03/23 19:43 cat dander Allergy Unknown Difficulty Verified 12/03/23 19:43 Breathing dog dander Allergy Unknown Sneezing Verified 12/03/23 19:43 zarco Allergy Unknown Edema Verified 12/03/23 19:43 gemfibrozil Allergy Unknown Verified 12/03/23 19:43 hydrochlorothiazide Allergy Unknown Rash Verified 12/03/23 19:43 losartan Allergy Unknown Verified 12/03/23 19:43 niacin Allergy Unknown Verified 12/03/23 19:43 oak Allergy Unknown Rash Verified 12/03/23 19:43 pioglitazone Allergy Unknown Verified 12/03/23 19:43 ampicillin Allergy Hives Verified 12/03/23 19:43 dulaglutide (From Trulicity) AdvReac Unknown Vomiting Verified 12/03/23 19:43 pravastatin AdvReac Unknown Verified 12/03/23 19:43 simvastatin AdvReac Unknown Verified 12/03/23 19:43 gatifloxacin (From Tequin) AdvReac Nausea Verified 12/03/23 19:43 lisinopril AdvReac Cough Verified 12/03/23 19:43 Review of Systems Status of ROS: Reports: 6 or more systems reviewed and unremarkable except as noted in History and below Narrative: No complaints of difficulty breathing or chest pain, no abdominal pain. Moving arms and legs. [facility] Social History Smoking Status: Never smoker Second hand tobacco smoke exposure: No How often do you have a drink containing alcohol: never AUDIT-C Alcohol total score: 0 Non-prescribed substance use: denies use Exam Const: Vital Signs, click to edit/add: Vital Signs - 24 hr 06/03/24 22:48 Temperature 98.0 F Respiratory Rate 74 H Blood Pressure [Ri ght Upper Arm] 187/70 H Pulse Oximetry 96 Oxygen Delivery Me thod Room Air Patient is brought in by EMS, she is alert and interactive, GCS 15/15. She is maintaining her airway, breathing independently, has C-collar on. She has a more linear wound above her left eyebrow, a macerated somewhat losing wound that is within the left eyebrow. She is able to open her eyes, conjugate gaze. The lower eyelid has some skin tearing, some macerated type tissue with the wound gaping, the inferior edge is just mm from the border of the eyelid. This wound does seem deeper and there may be some tissue loss, do see a flap of superficial skin that is very thin, wound is gaping, some oozing. Nursing staff put dressings on these. Lungs are clear, CV regular rate and rhythm. Abdomen is soft. She does follow commands, moving arms, moves legs. Documenting provider has reviewed patient's vital signs: yes Course Course ED Course: Did send this patient over to do head CT, cervical spine imaging and facial alexis ging via CT. Did talk to Sky, talk to Dr. Moody in the ER at [facility] at 10:30 p.m.. He will accept this patient, we will push this CT images up. We did not look up her tetanus status here, this will need to be relayed to them. She is able to transfer once our CT images are done. Our radiology knows [place] [facility] [place] Nursing staff did try to find IV here but she was very difficult and we were unable to. We will not delay transfer looking for IV source. EMS can put in an IO if they get into an emergent situation where vascular access is needed. Vital Signs Vital signs: Initial Vital Signs Temperature 98.0 F 06/03/24 22:48 Temperature Source Temporal Artery Scan 06/03/24 22:48 Respiratory Rate 74 H 06/03/24 22:48 Blood Pressure 187/70 H 06/03/24 22:48 Blood Pressure Mean 109 H 06/03/24 22:48 Blood Pressure Position Supine 06/03/24 22:48 Pulse Oximetry 96 06/03/24 22:48 Oxygen Delivery Method Room Air 06/03/24 22:48 Vital Signs Temperature 98.0 F 06/03/24 22:48 Respiratory Rate 74 H 06/03/24 22:48 Blood Pressure 187/70 H 06/03/24 22:48 Pulse Oximetry 96 06/03/24 22:48 Oxygen Delivery Method Room Air 06/03/24 22:48 Temperature 98.0 F 06/03/24 22:48 Respiratory Rate 74 H 06/03/24 22:48 Blood Pressure 187/70 H 06/03/24 22:48 Pulse Oximetry 96 06/03/24 22:48 Oxygen Delivery Method Room Air 06/03/24 22:48 MDM - Fall Imaging Data CT scan - head: Attestation: I have reviewed the pertinent imaging results. Radiologist's impression: Patient: MALACHI MARR Facility:?[facility] Patient ID:?[id number] Site Patient ID:?[id number]. Site :?[id number] Study:?CT-Head TTA WITHOUT-06/03/2024 10:53:56 PM Ordering Physician:Mary Amado Final Report: INDICATION: Fall, head injury. COMPARISON: CT head 05/25/2024. TECHNIQUE: CT of the head without IV contrast. Coronal and sagittal reconstructions. FINDINGS: Brain: No intracranial hemorrhage, abnormal extra-axial fluid collection, or evidence of acute infarct. No mass effect or midline shift. Mild generalized cerebral and cerebellar volume loss with associated ex vacuo dilation of the lateral ventricles. Mild chronic small vessel ischemic disease. Skull base and calvarium: The visualized paranasal sinuses and mastoid air cells are clear. The visualized orbits are grossly unremarkable. No acute fracture identified. Soft tissues: There is soft tissue swelling in the left anterior frontal scalp and left periorbital region. Few soft tissue gas bubbles likely related to laceration. IMPRESSION: 1. No acute intracranial findings. 2. Generalized parenchymal volume loss and mild chronic small vessel ischemic disease. 3. Soft tissue swelling in the left anterior frontal scalp and left periorbital region. Please note that all CT scans at this facility use dose modulation, iterative reconstruction, and/or weight-based dosing when appropriate to reduce radiation dose to as low as reasonably achievable. Dictated by Amie Ruiz MD @ 06/03/2024 11:25:20 PM (Electronic Signature) CT facial bones: Attestation: I have reviewed the pertinent imaging results. Radiologist's impression: Patient: MALACHI MARR Facility:?[facility] Patient ID:?[id number] Site Patient ID:?[id number]. Site :?[id number] Study:?CT-Facial TTA WITHOUT-06/03/2024 10:55:17 PM Ordering Physician:Mary Amado Final Report: INDICATION: Fall, head injury, facial trauma. COMPARISON: CT head 05/25/2024. TECHNIQUE: CT of the facial bones without IV contrast. Coronal and sagittal reconstructions. FINDINGS: There is soft tissue swelling in the left anterior frontal scalp and left periorbital region. Few soft tissue gas bubbles likely related to laceration. The globes are intact with symmetric extra-ocular muscles. No sign of intraorbital injury. No acute fracture identified. The paranasal sinuses and mastoid air cells are clear. No air-fluid levels. No bony hyperostosis or areas of bone destruction. The nasal septum is midline. The mandible is intact and the temporomandibular joints are anatomically aligned. The patient is edentulous. Visualized intracranial contents are unremarkable. The imaged cervical spine is grossly negative. IMPRESSION: 1. Soft tissue swelling in the left anterior frontal scalp and left periorbital region. The globes are intact with no sign of intraorbital injury. 2. No acute fracture identified. Please note that all CT scans at this facility use dose modulation, iterative reconstruction, and/or weight-based dosing when appropriate to reduce radiation dose to as low as reasonably achievable. Dictated by Amie Ruiz MD @ 06/03/2024 11:32:48 PM (Electronic Signature) CT cervical spine: Attestation: I have reviewed the pertinent imaging results. Radiologist's impression: Patient: MALACHI MARR Facility:?[facility] Patient ID:?[id number] Site Patient ID:?[id number]. Site :?[id number] Study:?CT-Spine Cervical TTA WITHOUT-06/03/2024 10:54:39 PM Ordering Physician:Mary Amado Final Report: INDICATION: Fall, head injury. History of lung cancer. COMPARISON: CT chest 05/25/2024. TECHNIQUE: CT of the cervical spine without IV contrast. Coronal and sagittal reconstructions. FINDINGS: Vertebrae: No acute fracture or suspicious bone lesion. Alignment is normal. Discs and facet joints: Degenerative cystic change in the dens. Disc spaces are maintained. Facet joints are within normal limits. No significant spinal canal stenosis. Extraspinal findings: Visualized intracranial contents and paravertebral soft tissues are unremarkable. Emphysema in the lung apices. Hazy ground-glass in the left apex. IMPRESSION: No acute fracture or traumatic malalignment of the cervical spine. Please note that all CT scans at this facility use dose modulation, iterative reconstruction, and/or weight-based dosing when appropriate to reduce radiation dose to as low as reasonably achievable. Dictated by Amie Ruiz MD @ 06/03/2024 11:40:55 PM (Electronic Signature) Discharge Plan Discharge Clinical Impression: Fall Qualifiers: Encounter type: initial encounter Qualified Code(s): W19.XXXA - Unspecified fall, initial encounter Face lacerations Qualifiers: Encounter type: initial encounter Qualified Code(s): S01.81XA - Laceration without foreign body of other part of head, initial encounter Patient Disposition: [facility] Discharge Location: [facility] Condition: Unchanged
--- OUTSIDE RECORDS SUMMARY | 2024-06-03 22:53 | XMS_ITS | Clinical Summary ---
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 therapy, follow up samples should be tested once every 1-2 days, based upon physician discretion taking into account patient's evolution and progress. Procalcitonin for initial assessment of severe sepsis risk: Results Interpretation <0.5 ng/ml A PCT level below 0.5 ng/ml on the first day of ICU admission is associated with a low risk for progression to severe sepsis and/or septic shock. > 2.0 ng/mL A PCT level above 2.0 ng/mL on the first day of ICU admission is associated with a high risk for progression to severe sepsis and/or septic shock. Note: Concentrations < 0.5 ng/mL do not exclude an infection, on account of localized infections (without systemic signs) which can be associated with such low concentrations, or a systemic infection in its initial stages(< 6 hours). Furthermore, increased procalcitonin can occur without infection. PCT concentrations between 0.5 and 2.0 ng/mL should be interpreted taking into account the patient's history. It is recommended to retest PCT within 6-24 hours if any concentrations < 2 ng/mL are obtained. us Guillermo Zamorano MD SEND OUTS Final Result [facility] INTERNAL ZIP [phone] [place] [address] * (ABNORMAL) BASIC METABOLIC PANEL (06/02/2024 8:05 AM CDT) Only the most recent of4 resultswithin the time period is included. SODIUM 129(L) 136 - 145 mmol/L 06/02/2024 8:59 AM [facility] POTASSIUM 4.4 3.5 - 5.1 mmol/L 06/02/2024 8:59 AM [facility] CHLORIDE 91(L) 98 - 107 mmol/L 06/02/2024 8:59 AM [facility] CO2,TOTAL 26 22 - 29 mmol/L 06/02/2024 8:59 AM [facility] ANION GAP 12 5 - 18 06/02/2024 8:59 AM [facility] GLUCOSE 95 70 - 99 mg/dL 06/02/2024 8:59 AM [facility] CALCIUM 8.7(L) 8.8 - 10.4 mg/dL 06/02/2024 8:59 AM [facility] Comment: Reference ranges for this test were updated on 12/17/2023 to reflect our healthy population more accurately. Reference range changes are not retroactively applied to results, but previous results using the same methodology can be interpreted in the context of the new reference range. BUN 33(H) 8 - 23 mg/dL 06/02/2024 8:59 AM [facility] CREATININE 2.92(H) 0.50 - 0.90 mg/dL 06/02/2024 8:59 AM [facility] BUN/CREAT RATIO 11 10 - 20 8:59 AM [facility] eGFR 16(L) >90 mL/min/1. 73m2 06/02/2024 8:59 AM [facility] Comment:As of 2021, eG FR is calculated by the CKD-EPI creatinine equation without race adjustment. eGFR can be influenced by muscle mass, exercise, and diet. The reported eGFR is an estimation only and is only applicable if the renal function is stable. Blood BLOOD SPECIMEN / Unknown Venipuncture / Unknown 06/02/2024 8:05 AM CDT 06/02/2024 8:11 AM CDT us Guillermo Zamorano MD CHEMISTRY Final Result [facility] INTERNAL ZIP [phone] [place] [address] * SCAN-CARDIAC STRIP (06/02/2024 2:37 AM CDT) us Scanner OTHER Final Result * (ABNORMAL) CBC W PLT NO DIFF (06/01/2024 9:00 AM CDT) Only the most recent of2 resultswithin the time period is included. WHITE BLOOD COUNT 22.9(H) 4.5 - 11.0 thou/cu mm 06/01/2024 9:53 AM [facility] RED BLOOD COUNT 2.91(L) 4.00 - 5.20 mil/cu mm 06/01/2024 9:53 AM [facility] HEMOGLOBIN 8.5(L) 12.0 - 16.0 g/dL 06/01/2024 9:53 AM [facility] HEMATOCRIT 26.9(L) 33.0 - 51.0 % 06/01/2024 9:53 AM [facility] MCV 92 80 - 100 fL 06/01/2024 9:53 AM [facility] MCH 29.2 26.0 - 34.0 pg 06/01/2024 9:53 AM [facility] MCHC 31.6(L) 32.0 - 36.0 g/dL 06/01/2024 9:53 AM [facility] RDW 17.7(H) 11.5 - 15.5 % 06/01/2024 9:53 AM [facility] PLATELET COUNT 248 140 - 440 thou/cu mm 06/01/2024 9:53 AM [facility] MPV 10.1 6.5 - 11.0 fL 06/01/2024 9:53 AM [facility] NRBC 0.1 % 06/01/2024 9:53 AM [facility] ABS NRBC 0.0 thou /cu mm 06/01/2024 9:53 AM [facility] Blood BLOOD SPECIMEN / Unknown Venipuncture / Unknown 06/01/2024 9:00 AM CDT 06/01/2024 9:45 AM CDT us Guillermo Zamorano MD HEMATOLOGY Final Result [facility] INTERNAL ZIP [phone] [place] [address] * (ABNORMAL) IRON PLUS IRON BINDING CAP (06/01/2024 7:15 AM CDT) IRON 35(L) 37 - 145 ug/dL 06/01/2024 7:53 AM CDT [facility] UIBC (UNSATURATED) 126 112 - 347 ug/dL 06/01/2024 7:53 AM CDT [facility] IRON BINDING CAPACITY 161(L) 250 - 400 ug/dL 06/01/2024 7:53 AM CDT [facility] IRON,% SATURATION 22 14 - 50 % 06/01/2024 7:53 AM CDT [facility] Blood BLOOD SPECIMEN / Unknown Butterfly / Unknown 06/01/2024 7:15 AM CDT 06/01/2024 7:27 AM CDT us Kirti Ascencio MD CHEMISTRY Final Resul t [facility] INTERNAL ZIP [id number] [address] [place] [address] * (ABNORMAL) LD,TOTAL (06/01/2024 7:15 AM CDT) LD,TOTAL 269(H) 135 - 214 IU/L 06/01/2024 8:20 AM CDT [facility] Blood BLOOD SPECIMEN / Unknown Butterfly / Unknown 06/01/2024 7:15 AM CDT 06/01/2024 7:27 AM CDT us Kirti Ascencio MD CHEMISTRY Final Resul t [facility] INTERNAL ZIP [phone] [place] [address] * PHOSPHORUS (06/01/2024 7:15 AM CDT) Only the most recent of2 resultswithin the time period is included. PHOSPHORUS 3.8 2.5 - 4.5 mg/dL 06/01/2024 7:51 AM CDT [facility] Blood BLOOD SPECIMEN / Unknown Butterfly / Unknown 06/01/2024 7:15 AM CDT 06/01/2024 7:27 AM CDT us Maximilian Rodríguez MD CHEMISTRY Final Result [facility] INTERNAL ZIP [phone] [place] [address] * (ABNORMAL) HEPATIC FUNCTION PANEL (06/01/2024 7:15 AM CDT) ALBUMIN 3.0(L) 4.0 - 4.9 g/dL 06/01/2024 7:51 AM T [facility] PROTEIN,TOTAL 6.7 6.0 - 8.0 g/dL 06/01/2024 7:51 AM [facility] BILIRUBIN,TOTAL 0.3 0.0 - 1.2 mg/dL 06/01/2024 7:51 AM [facility] BILIRUBIN,DIRECT <0.1 0.0 - 0.2 mg/dL 06/01/2024 7:51 AM [facility] BILIRUBIN,INDIRE CT 06/01/2024 7:51 AM [facility] Comment:Unable to calculate, Direct Bili <0.1 ALK PHOSPHATASE 135(H) 35 - 104 IU/L 06/01/2024 7:51 AM [facility] ALT (SGPT) 19 10 - 35 IU/L 06/01/2024 7:51 AM [facility] AST (SGOT) 33 10 - 35 IU/L 06/01/2024 7:51 AM [facility] Blood BLOOD SPECIMEN / Unknown Butterfly / Unknown 06/01/2024 7:15 AM CDT 06/01/2024 7:27 AM CDT us Kirti Ascencio MD CHEMISTRY Final Resul t [facility] INTERNAL ZIP [phone] [place] [address] * (ABNORMAL) HAPTOGLOBIN (06/01/2024 7:14 AM CDT) Haptoglobin 327(H) 30 - 200 mg/dL 06/01/2024 10:07 AM CDT [facility] Blood BLOOD SPECIMEN / Unknown Butterfly / Unknown 06/01/2024 7:14 AM CDT 06/01/2024 7:27 AM CDT us Kirti Ascencio MD CHEMISTRY Final Resul t Performing Organization Address [facility] Co de Phone Number [facility] [address] [address], [place] * (ABNORMAL) FERRITIN (06/01/2024 7:14 AM CDT) FERRITIN 3,586.0(H) 15.0 - 150.0 ng/mL 06/01/2024 10:30 AM CDT [facility] Blood BLOOD SPECIMEN / Unknown Butterfly / Unknown 06/01/2024 7:14 AM CDT 06/01/2024 7:27 AM CDT us Kirti Ascencio MD CHEMISTRY Final Resul t Performing Organization Address [facility] Co de Phone Number [facility] [address] [address], [place] * VITAMIN B12 (06/01/2024 7:14 AM CDT) VITAMIN B12 996 232 - 1,245 pg/mL 06/01/2024 10:06 AM CDT [facility] Blood BLOOD SPECIMEN / Unknown Butterfly / Unknown 06/01/2024 7:14 AM CDT 06/01/2024 7:27 AM CDT Narrative [facility] - 06/01/2024 10:06 AM CDT Biotin supplements may cause clinically significant interference for this test assay. If interference is suspected, it is strongly recommended that biotin is discontinued for at least one week prior to retesting. us Kirti Ascencio MD CHEMISTRY Final Resul t Performing Organization Address City/[facility] Co de Phone Number [facility] [address] [address], [place] * SCAN-CARDIAC STRIP (06/01/2024 6:07 AM CDT) us Scanner OTHER Final Result * TRANSFUSE RBC (NURSE COMMUNICATION ORDER) (05/31/2024 12:31 PM CDT) Blood BLOOD SPECIMEN / Unknown us Guillermo Zamorano MD NURSING BLOOD BANK Final Resu lt * FOLIC ACID (05/31/2024 11:40 AM CDT) Pathologist [facility] FOLIC ACID 21.0 4.6 - 34.8 ng/mL 05/31/2024 7:59 PM CDT [facility] Blood BLOOD SPECIMEN / Unknown Line/Port / Unknown 05/31/2024 11:40 AM CDT 05/31/2024 11:42 AM CDT Narrative [facility] - 05/31/2024 7:59 PM CDT Biotin supplements may cause clinically significant interference for this test assay. If interference is suspected, it is strongly recommended that biotin is discontinued for at least one week prior to retesting. us Kirti Ascencio MD CHEMISTRY Final Resul t [facility] [address] [place] [address], * SCAN-CARDIAC STRIP (05/31/2024 10:18 AM CDT) us Scanner OTHER Edited Result - Final * EKG 12 Lead (05/31/2024 9:06 AM CDT) Pathologist [facility] Interpretation Normal sinus rhythm Normal ECG No previous ECGs available BEYOND NOW Ventricular Rate 76 BPM BEYOND NOW Atrial Rate 76 BPM BEYOND NOW P-R Interval 168 ms BEYOND NOW QRS Duration 78 ms BEYOND NOW QT 382 ms BEYOND NOW QTc 429 ms BEYOND NOW P [place] 69 degrees BEYOND NOW R [place] -14 degrees BEYOND NOW T [place] 86 degrees BEYOND NOW 05/31/2024 9:06 AM CDT 06/01/2024 8:45 AM CDT us Guillermo Zamorano MD EKG ORD Final Result [facility] NOW [place], [place] * RBC W TYPE AND SCREEN (05/31/2024 8:41 AM CDT) ABORH O Rh Positive 05/31/2024 9:21 AM CDT [facility] BLOOD BANK ANTIBODY SCREEN Negative Negative 05/31/2024 9:21 AM CDT [facility] BLOOD BANK SPECIMEN EXPIRATION DATE/TIME 06/03/24 23:59 05/31/2024 9:21 AM CDT [facility] BLOOD BANK Blood BLOOD SPECIMEN / Unknown Venipuncture / Unknown 05/31/2024 8:41 AM CDT 05/31/2024 8:46 AM CDT us Guillermo Zamorano MD BLOOD BANK Final Result Performing Organization Address City/[facility]/ZIP Co de Phone Number [facility] BLOOD BANK [address] [place] [address] * RED BLOOD CELLS EA UNIT (05/31/2024 8:41 AM CDT) Pathologist [facility] CROSSMATCH Compatible Compatible [facility] BLOOD BANK PRODUCT BLOOD TYPE O Rh Positive [facility] BLOOD BANK PRODUCT ID NUMBER [id number] [facility] BLOOD BANK PRODUCT STATUS Transfused [facility] BLOOD BANK PRODUCT DESCRIPTION RBC -1 LR [facility] BLOOD BANK PRODUCT CODE [id number] [facility] BLOOD BANK ISSUE DATE/TIME 05/31/24 11:29 [facility] BLOOD BANK us Guillermo Zamorano MD BLOOD BANK Edited Result - Final Performing Organization Address City/[facility]/ZIP Co de Phone Number [facility] BLOOD BANK [address] [facility] [place] [address] * CT NECK SOFT TISSUE W (05/30/2024 3:30 PM CDT) Anatomical Region Laterality Modality NECK Computed Tomogra phy 05/30/2024 3:30 PM CDT Impressions 05/30/2024 5:03 PM CDT 1. Left oral pharyngeal mucosal space small nodule, cyst, or polyp measuring 7 mm. Findings may be benign or malignant. Recommend ENT referral. 2. No cervical lymphadenopathy based on size criteria. 3. No neck mass. 4. Left upper lobe anterior segment large malignant mass redemonstrated from CT chest 05/25/2024. 5. Right upper lobe near major fissure subsolid nodule measuring [address] chest 05/25/2024. 6. Left thyroid lobe small nodule. Narrative 05/30/2024 5:03 PM CDT For Patients: As a result of the Cures Act, medical imaging exams and procedure reports are released immediately into your electronic medical record. You may view this report before your referring provider. If you have questions, please contact your health care provider. EXAM: CT NECK SOFT TISSUE W LOCATION: [facility] DATE: 05/30/2024 INDICATION: Neck mass, nonpulsatile COMPARISON: None. CONTRAST: Omnipaque 350 100 TECHNIQUE: Routine CT Soft Tissue Neck with IV contrast. Multiplanar reformats. Dose reduction techniques were used. FINDINGS: MUCOSAL SPACES/SOFT TISSUES: Left oral pharyngeal mucosal space small nodule, cyst, or polyp measuring 7 mm. Findings may be benign or malignant. Recommend ENT referral. Normal vocal cords and infraglottic trachea. Normal parapharyngeal space and subcutaneous soft tissues. Normal oral cavity, interventional cardiologist spaces, and floor of mouth structures. LYMPH NODES: No pathologic lymph nodes by size criteria. SALIVARY GLANDS: Normal parotid and submandibular glands. THYROID: Left thyroid lobe nodule measuring 6 mm. VESSELS: Extensive atherosclerotic vascular disease throughout the arterial system. Bilateral carotid bifurcations demonstrate underlying stenoses difficult to quantify with NASCET criteria. Additional arterial stenoses are present. VISUALIZED INTRACRANIAL/ORBITS/SINUSES: No abnormality of the visualized intracranial compartment or orbits. Visualized paranasal sinuses and mastoid air cells are clear. OTHER: Multilevel spondylosis. C3-C4 severe central canal stenosis. Left upper lobe anterior segment large malignant mass redemonstrated from CT chest 05/25/2024. Right upper lobe near major fissure subsolid nodule measuring [address] chest 05/25/2024. Procedure Note Robin Wallace MD - 05/30/2024 For Patients: As a result of the 21st Century Cures Act, medical imagingexams and procedure reports are released immediately into your electronicmedical record. You may view this report before your referring provider.If you have questions, please contact your health care provider. EXAM: CT NECK SOFT TISSUE W LOCATION: [facility] DATE: 05/30/2024 INDICATION: Neck mass, nonpulsatile COMPARISON: None. CONTRAST: Omnipaque 350 100 TECHNIQUE: Routine CT Soft Tissue Neck with IV contrast. Multiplanarreformats. Dose reduction techniques were used. FINDINGS: MUCOSAL SPACES/SOFT TISSUES: Left oral pharyngeal mucosal space smallnodule, cyst, or polyp measuring 7 mm. Findings may be benign ormalignant. Recommend ENT referral. Normal vocal cords and infraglottic trachea. Normal parapharyngeal spaceand subcutaneous soft tissues. Normal oral cavity, interventional cardiologist spaces, andfloor of mouth structures. LYMPH NODES: No pathologic lymph nodes by size criteria. SALIVARY GLANDS: Normal parotid and submandibular glands. THYROID: Left thyroid lobe nodule measuring 6 mm. VESSELS: Extensive atherosclerotic vascular disease throughout thearterial system. Bilateral carotid bifurcations demonstrate underlyingstenoses difficult to quantify with NASCET criteria. Additional arterialstenoses are present. VISUALIZED INTRACRANIAL/ORBITS/SINUSES: No abnormality of the visualizedintracranial compartment or orbits. Visualized paranasal sinuses andmastoid air cells are clear. OTHER: Multilevel spondylosis. C3-C4 severe central canal stenosis. Left upper lobe anterior segment large malignant mass redemonstrated fromCT chest 05/25/2024. Right upper lobe near major fissure subsolid nodule measuring [address] chest 05/25/2024. IMPRESSION: 1. Left oral pharyngeal mucosal space small nodule, cyst, or polypmeasuring 7 mm. Findings may be benign or malignant. Recommend ENTreferral. 2. No cervical lymphadenopathy based on size criteria. 3. No neck mass. 4. Left upper lobe anterior segment large malignant mass redemonstratedfrom CT chest 05/25/2024. 5. Right upper lobe near major fissure subsolid nodule measuring [address] chest 05/25/2024. 6. Left thyroid lobe small nodule. us Guillermo Zamorano MD CT Final Result * (ABNORMAL) RENAL FUNCTION PANEL (05/30/2024 8:07 AM [facility]) Only the most recent of4 resultswithin the time period is included. SODIUM 132(L) 136 - 145 mmol/L 05/30/2024 8:42 AM [facility] POTASSIUM 4.5 3.5 - 5.1 mmol/L 05/30/2024 8:42 AM [facility] CHLORIDE 95(L) 98 - 107 mmol/L 05/30/2024 8:42 AM [facility] CO2,TOTAL 29 22 - 29 mmol/L 05/30/2024 8:42 AM [facility] ANION GAP 8 5 - 18 05/30/2024 8:42 AM [facility] GLUCOSE 58(L) 70 - 99 mg/dL 05/30/2024 8:42 AM [facility] CALCIUM 8.6(L) 8.8 - 10.4 mg/dL 05/30/2024 8:42 AM [facility] Comment: Reference ranges for this test were updated on 12/17/2023 to reflect our healthy population more accurately. Reference range changes are not retroactively applied to results, but previous results using the same methodology can be interpreted in the context of the new reference range. BUN 29(H) 8 - 23 mg/dL 05/30/2024 8:42 AM [facility] CREATININE 2.95(H) 0.50 - 0.90 mg/dL 05/30/2024 8:42 AM [facility] BUN/CREAT RATIO 10 10 - 20 8:42 AM [facility] eGFR 16(L) >90 mL/min/1. 73m2 05/30/2024 8:42 AM [facility] Comment:As of 2021, eG FR is calculated by the CKD-EPI creatinine equation without race adjustment. eGFR can be influenced by muscle mass, exercise, and diet. The reported eGFR is an estimation only and is only applicable if the renal function is stable. PHOSPHORUS 2.0(L) 2.5 - 4.5 mg/dL 05/30/2024 8:42 AM CDT [facility] ALBUMIN 2.9(L) 4.0 - 4.9 g/dL 05/30/2024 8:42 AM CDT [facility] Blood BLOOD SPECIMEN / Unknown Venipuncture / Unknown 05/30/2024 8:07 AM CDT 05/30/2024 8:14 AM CDT us Juani Watts MD CHEMISTRY Final Resu lt [facility] INTERNAL ZIP [phone] [facility] [place] [place] [address] * XR CHEST 1 VIEW PORTABLE (05/29/2024 3:10 PM CDT) Only the most recent of2 resultswithin the time period is included. Anatomical Region Laterality Modality HEART, THORAX, CHEST Digital Rad iography 05/29/2024 3:10 PM CDT Impressions 05/29/2024 3:31 PM CDT Right PICC tip in the right brachiocephalic vein. Increased left upper lobe consolidation. Decreased right perihilar consolidation. No pleural effusion or pneumothorax. Normal heart size. Aortic calcifications. Narrative 05/29/2024 3:31 PM CDT For Patients: As a result of the Cures Act, medical imaging exams and procedure reports are released immediately into your electronic medical record. You may view this report before your referring provider. If you have questions, please contact your health care provider. EXAM: XR CHEST 1 VIEW PORTABLE LOCATION: [facility] DATE: 05/29/2024 INDICATION: Line placement COMPARISON: 05/27/2023. Procedure Note Hellen Arias MD - 05/29/2024 For Patients: As a result of the Cures Act, medical imagingexams and procedure reports are released immediately into your electronicmedical record. You may view this report before your referring provider.If you have questions, please contact your health care provider. EXAM: XR CHEST 1 VIEW PORTABLE LOCATION: [facility] DATE: 05/29/2024 INDICATION: Line placement COMPARISON: 05/27/2023. IMPRESSION: Right PICC tip in the right brachiocephalic vein. Increased left upperlobe consolidation. Decreased right perihilar consolidation. No pleuraleffusion or pneumothorax. Normal heart size. Aortic calcifications. us Miguelito [facility] Final Result * SCAN-CARDIAC STRIP (05/28/2024 4:00 AM CDT) us Scanner OTHER Final Result * SCAN-CARDIAC STRIP (05/27/2024 8:35 PM CDT) us Scanner OTHER Final Result * SCAN-CARDIAC STRIP (05/27/2024 3:43 PM CDT) us Scanner OTHER Final Result * SCAN CORRESP-EKG RESULTS (05/27/2024 9:39 AM CDT) Only the most recent of2 resultswithin the time period is included. Narrative 05/27/2024 9:39 AM CDT Ordered by an unspecified provider. us Other Clinical Staff OTHER Final Resul t * SCAN CORRESP-IMAGING (05/27/2024 9:33 AM CDT) Anatomical Region Laterality Modality Other Narrative 05/27/2024 9:33 AM CDT Ordered by an unspecified provider. us Other Clinical Staff OTHER Final Resul t * SCAN-CARDIAC STRIP (05/27/2024 8:00 AM CDT) us Scanner OTHER Final Result * VANCOMYCIN (05/27/2024 5:37 AM CDT) VANCOMYCIN 11.8 ug/mL 05/27/2024 7:54 AM CDT [facility] Comment:No Reference Range D efined. DATE OF LAST DOSE,RANDOM Not Given 05/27/2024 7:54 AM CDT [facility] TIME OF LAST DOSE,RANDOM Not Given 05/27/2024 7:54 AM CDT [facility] Blood BLOOD SPECIMEN / Unknown Non-Lab Venipuncture / Unknown 05/27/2024 5:37 AM CDT 05/27/2024 5:43 AM CDT us Miguelito GUNN CHEMISTRY Final Result [facility] INTERNAL ZIP [phone] [place] [address] * SCAN-CARDIAC STRIP (05/27/2024 4:00 AM CDT) us Scanner OTHER Final Result * SCAN-CARDIAC STRIP (05/26/2024 10:00 PM CDT) us Scanner OTHER Final Result * MR Brain w/o contrast (05/26/2024 8:53 PM CDT) Anatomical Region Laterality Modality BRAIN, HEAD Magnetic Resonan ce 05/26/2024 8:53 PM CDT Impressions 05/26/2024 9:26 PM CDT Motion limited examination without acute intracranial abnormality. Narrative 05/26/2024 9:26 PM CDT For Patients: As a result of the Cures Act, medical imaging exams and procedure reports are released immediately into your electronic medical record. You may view this report before your referring provider. If you have questions, please contact your health care provider. EXAM: MR HEAD BRAIN WO LOCATION: [facility] DATE: 05/26/2024 INDICATION: >AMS Mental status change, unknown cause COMPARISON: CT head 05/25/2024 and MRI brain 05/06/2024 TECHNIQUE: Routine multiplanar multisequence head MRI without intravenous contrast. FINDINGS: Images are degraded secondary to patient motion artifact. INTRACRANIAL CONTENTS: No acute or subacute infarct. No mass, acute hemorrhage, or extra-axial fluid collections. Scattered nonspecific T2/FLAIR hyperintensities within the cerebral white matter most consistent with mild chronic microvascular ischemic change. Mild to moderate generalized cerebral atrophy. No hydrocephalus. Normal position of the cerebellar tonsils. SELLA: No abnormality accounting for technique. OSSEOUS STRUCTURES/SOFT TISSUES: Normal marrow signal. The major intracranial vascular flow voids are maintained. ORBITS: No abnormality accounting for technique. SINUSES/MASTOIDS: No paranasal sinus mucosal disease. No middle ear or mastoid effusion. Procedure Note Alhaji Jimenes MD - 05/26/2024 For Patients: As a result of the Cures Act, medical imagingexams and procedure reports are released immediately into your electronicmedical record. You may view this report before your referring provider.If you have questions, please contact your health care provider. EXAM: MR HEAD BRAIN WO LOCATION: [facility] DATE: 05/26/2024 INDICATION: >AMS Mental status change, unknown cause COMPARISON: CT head 05/25/2024 and MRI brain 05/06/2024 TECHNIQUE: Routine multiplanar multisequence head MRI without intravenouscontrast. FINDINGS: Images are degraded secondary to patient motion artifact. INTRACRANIAL CONTENTS: No acute or subacute infarct. No mass, acutehemorrhage, or extra-axial fluid collections. Scattered nonspecificT2/FLAIR hyperintensities within the cerebral white matter most consistentwith mild chronic microvascular ischemic change. Mild to moderategeneralized cerebral atrophy. No hydrocephalus. Normal position of thecerebellar tonsils. SELLA: No abnormality accounting for technique. OSSEOUS STRUCTURES/SOFT TISSUES: Normal marrow signal. The majorintracranial vascular flow voids are maintained. ORBITS: No abnormality accounting for technique. SINUSES/MASTOIDS: No paranasal sinus mucosal disease. No middle ear ormastoid effusion. IMPRESSION: Motion limited examination without acute intracranial abnormality. Eduardo Shaw DO MR Final Resul t * INSERT PICC LINE (05/26/2024 6:58 AM CDT) Narrative Yenni Mckenzie, SUSANA - 05/26/2024 6:58 AM CDT Yenni Mckenzie RN 05/26/2024 7:21 AM PICC Line Insertion Note 05/26/2024 6:58 AM Procedure education reviewed: Benefits, discussed with: Patient face to face. Patient face to face confirms understanding of procedure. Window Shade Estimator used: No Reason for insertion: Vasoactive Medications Medical/ Surgical/ Allergies History reviewed: Yes. Preprocedure Verification: Yes 1) Provider Order verified 2) Patient identity verified; 3) side/site/procedure confirmed; 4) relevant information/documentation available, reviewed and properly matched to the patient; 5) For PICC insertions, consent accurate and complete or verified provider has ordered emergent placement; 6) equipment and supplies available Site Marking: Yes Site marked if not in continuous attendance with the patient Time Out: Yes Time out was conducted just prior to starting procedure to verify the four required elements: 1) patient name and date of 2) confirmation that the correct side/site are marked if applicable, including visualization of the site essence 3) name of procedure including laterality if applicable, and 4) essential imaging and results are properly labeled and appropriately displayed, if applicable. Site assessment pre-insertion: Intact. Local anesthetic used at site: Yes, 1% Lidocaine. The following Central Line Insertion Checklist was used: Hand Hygiene: Yes Maximal Barrier Precautions including Sterile Gown, Hat and Mask: Yes Full Body Drape: Yes Site cleansed with: Chlorhexidine gluconate prep. 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 Able to aspirate blood in each lumen: Yes Able to flush catheter without resistance in each lumen: Yes Each lumen flushed with: 10 ml(s) of 0.9% saline, and no Heparin. Cap applied to each lumen: Yes Line secured with: Stat-Lock Hospital dressing policy/procedure followed. PICC Line standing orders implemented: Yes X- ray pending: Yes Insertion complications: None Patient tolerated the procedure: Yes PICC education reviewed: Given to patient PICC Tip Location Confirmation Note 05/26/2024 7:20 AM PICC tip location is superior vena cava per Radiologist confirmed by CXR. Plan: - PICC tip location has been confirmed with CXR and is okay to use as a central venous catheter per hospital policy. Eduardo Shaw DO IV ORD Edited Resu lt - Final * MRSA/SA PCR (05/26/2024 3:11 AM CDT) MRSA DNA PCR Negative Negative 05/26/2024 10:49 PM CDT [facility] STAPHYLOCOCCUS AUREUS PCR Negative Negative 05/26/2024 10:49 PM CDT [facility]- [facility] Other SPECIMEN FROM INTERNAL NOSE / Unknown Non-Blood / Unknown 05/26/2024 3:11 AM CDT 05/26/2024 3:16 AM CDT Narrative [facility] - 05/26/2024 10:49 PM CDT Test result does not preclude MRSA or SA nasal colonization. Eduardo Shaw DO MICROBIOLOGY Final Resul t [facility] [address] [place] [place] [address], * SCAN-CARDIAC STRIP (05/26/2024 2:00 AM CDT) us Scanner OTHER Final Result * SCAN-CT INTERPRETATION (05/25/2024 12:00 AM CDT) Only the most recent of4 resultswithin the time period is included. Anatomical Region Laterality Modality Other us Scanner OTHER Final Result * PET CT SKULL BASE TO MID [...] MD @ 05/22/2024 3:28:59 PM (Electronically Signed) Tyrell Schneider MD PET Final Result * SCAN-RADIOLOGY REPORT (04/29/2024 12:00 AM CDT) Only the most recent of4 resultswithin the time period is included. Anatomical Region Laterality Modality Other us Scanner OTHER Final Result * (ABNORMAL) HEMOGLOBIN A1C MONITORING (POCT) (04/21/2024 2:37 PM CDT) POC HEMOGLOBIN A1C 6.2(H) <6.0 % OF TOTAL HGB [facility] Comment: Any point of care results exhibiting inconsistency with the patient's clinical status should be repeated using a different testing method. Blood BLOOD SPECIMEN / Unknown 04/21/2024 2:37 PM CDT 04/21/2024 2:38 PM CDT us Tyrell Schneider MD CHEMISTRY Final Result [facility] [address] [place] [address], [facility] [address] [place] [address] * ANATOMIC PATH CONSULT (04/07/2024 12:28 PM JOB FORWARDER) Case Report Anatomic Pathology Consultation Case: [id number] Authorizing Provider: Michelle Treviño MD Collected: 04/07/2024 1228 Ordering Location: [facility] Received: 04/20/2024 0852 Pathologist: Kirti Hamilton MD Specimen: Left Upper Lobe Lung Biopsy, [facility] case [id number] 04/20/2024 6:51 PM CDT [facility] Final Diagnosis CONSULTATIVE REVIEW OF OUTSIDE PATHOLOGY SLIDES FROM [facility] TRANSBRONCHIAL BIOPSY, EBUS LYMPH NODES, BRONCHIAL WASHING [id number]; 04-07-2024 ------ A) LUNG, LEFT, UPPER LOBE, [...] Negative for malignancy 04/20/2024 6:51 PM CDT [facility] at 1851 CDT Comment [...] not sufficient for next-generation sequencing. Please call [phone] (option 2), to request block A1 for add on testing, if indicated. 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 Patient was hospitalized 4 days at [facility] with community-acquired pneumonia in the setting of tobacco use with BMI 16.79, diabetes, and end-stage renal disease on hemodialysis, discharged 04-02-2024. The patient was then hospitalized at [facility] 04-04-2024 and discharged 04-10-2024 with [...] and is pending. 04/20/2024 6:51 PM CDT [facility] Gross Description Received from [facility] ([place], [place]) are 13 glass stained slides and an accompanying pathology report with the patient name and outside accession number [id number], collected 04-07-2024. 04/20/2024 6:51 PM CDT [facility] Microscopic Description The final diagnosis is based on microscopic examination of appropriate sections of all specimens. Immunostains performed at the referring facility were reviewed at [facility] from [id number] block A1 with results as follows in tumor cells: P40: Positive TTF1: Negative (highlights background benign pulmonary elements) 04/20/2024 6:51 PM CDT [facility] Additional Information Original Date of Biopsy: 04/07/2024 [facility] [address] [place] [address] Interpreted at [facility] - [address] [facility] [address] [facility] [address], [place] [address] 04/20/2024 6:51 PM CDT [facility] Other (Left Upper Lobe Lung Biopsy) Non-Blood / Unknown 04/07/2024 12:28 PM JOB FORWARDER 04/20/2024 8:52 AM CDT Michelle Treviño MD PATHOLOGY/CYTOLOGY Final R esult [facility] [address] [place] [address], * (ABNORMAL) C-REACTIVE PROTEIN (04/01/2024 11:09 AM JOB FORWARDER) C-REACTIVE PROTEIN 5.5(H) <0.5 mg/dL 04/01/2024 11:39 AM JOB FORWARDER [facility] Blood BLOOD SPECIMEN / Unknown Line/Port / Unknown 04/01/2024 11:09 AM JOB FORWARDER 04/01/2024 11:19 AM JOB FORWARDER us Victoriano Cooper MD CHEMISTRY Final Result [facility] [place]NAL ZIP [address] [place] [address] * (ABNORMAL) SPUTUM CULTURE, STAIN (03/31/2024 1:00 PM JOB FORWARDER) CULTURE RESULT(A) 04/03/2024 8:18 AM JOB FORWARDER [facility] CULTURE 1+ Klebsiella pneumoniae 04/03/2024 8:18 AM [facility] CULTURE 1+ Enterobacter cloacae complex 04/03/2024 8:18 AM [facility] Comment: Oral cephalosporins are not recommended. May develop resistance during therapy with penicillins and 2-2gy-gcgqtvpcrj cephalosporins as a result of loss of repression of AmpC -lactamase. Therefore, isolates that are initially susceptible may become resistant within 3 to 4 days after initiation of therapy. CULTURE 1+ Pseudomonas aeruginosa 04/03/2024 8:18 AM [facility] CULTURE 1+ Usual Viry 04/03/2024 8:18 AM [facility] GRAM STAIN 3+ PMNs 04/03/2024 8:18 AM [facility] GRAM STAIN 1+ RBCs 04/03/2024 8:18 AM [facility] GRAM STAIN 1+ Epithelial cells 04/03/2024 8:18 AM [facility] GRAM STAIN 1+ Yeast 04/03/2024 8:18 AM [facility] GRAM STAIN Gram stain performed by [place], [place] 04/03/2024 8:18 AM [facility] Sputum SPUTUM SPECIMEN / Unknown Non-Blood / Unknown 03/31/2024 1:00 PM JOB FORWARDER 03/31/2024 2:15 PM JOB FORWARDER Narrative Organism Antibiotic Method Susceptibility Klebsiella pneumoniae [...] MEROPENEM <=0.25: S Enterobacter cloacae complex TRIMETHOPRIM/SULF <=19: S Enterobacter cloacae complex CEFAZOLIN >=32: R [...] 2: S Pseudomonas aeruginosa MEROPENEM <=0.25: S us Jhon Alfred MD MICROBIOLOGY Heydi l Result [facility] [address] [place] [address], [facility] INTERNAL ZIP [id number] [place] [address] * XR DXA BONE DENSITY 2 SITES AXIAL (04/12/2016 1:49 PM JOB FORWARDER) Anatomical Region Laterality Modality Spine, HIPS, HIPL, HIPR Other Narrative 04/13/2016 10:06 AM JOB FORWARDER Please see scanned document for results of this study. us Tyrell Schneider MD DEXA Final Result * ANTI HCV (04/04/2016 1:32 PM JOB FORWARDER) HEPATITIS C ANTIBODY Non-Reacti ve Non-Reacti ve 04/04/2016 7:49 PM JOB FORWARDER [facility] Blood BLOOD SPECIMEN / Unknown Venipuncture / Unknown 04/04/2016 1:32 PM JOB FORWARDER 04/04/2016 3:22 PM JOB FORWARDER Narrative [facility] - 04/04/2016 7:49 PM JOB FORWARDER Antibodies to HCV not detected; does not exclude the possibility of exposure to HCV. us Tyrell Schneider MD SEND OUTS Final Result [facility] [address] [place] [address], from Last 3 Months or Most Recently Relevant to Health Maintenance Insurance MEDICARE PART A HB ONLY [facility] MARTÍNEZ SCHWARTZ * Guarantor: [employer] Account Type Relation to Patient Date of Phone Billing Address Occ Health/[place] [address] [place] [id number] [facility] Advance Directives * Full Code (Latest Code Status on File) Date Activated Date Inactivated Comments 05/26/2024 2:06 AM 06/03/2024 10:51 PM Question Answer Comments Code Status Discussion: Reviewed Preferences * Full Code Date Activated Date Inactivated Comments 05/26/2024 1:21 AM 05/26/2024 1:44 AM Question Answer Comments Code Status Discussion: Reviewed Preferences * Full Code Date Activated Date Inactivated Comments 03/30/2024 8:27 PM 04/02/2024 4:55 PM Question Answer Comments Code Status Discussion: Reviewed Preferences Care Teams Call Center Team Leader Relationship Specialty Start Date End Date Tyrell Schneider MD [address] [facility] [place] [address] PCP - General 10/08/05 Kirti Rai, RN [address] [place] [address] [place] [address] Nurse Navigator - Oncology Registered Nurse 04/17/[address] [place] [address] 06/03/24
--- OUTSIDE RECORDS SUMMARY | 2024-06-03 22:53 | XMS_ITS | Encounter Summary ---
Author Organization [facility] Address [address] [place] [address] Care Team Providers Care Support Architect Name Role Phone Schneider, Tyrell Bulmaro Primary Care Provider [phone] Reason for Visit * Reason Comments Chest Pain Encounter Details Date Type Department Care Team (Late st Contact Info) Description 04/27/2024 1:37 PM CDT - 04/27/2024 8:51 PM CDT Emergency [facility] Emergency Dept [address] [place] [address] Jason Tapia MD [facility] [address] [place], [place] [address] Left-sided chest pain; Mass of upper lobe [...] CDT Follow-up with the cancer clinic in [place] as you already plan to do Use Tylenol for pain or discomfort * Attachments The following attachments cannot be sent through Care Everywhere. * Chest Pain (Cameroonian) documented in this encounter Medications at Time [...] tablet by mouth daily neomycin-polymyxi n-dexAMETHasone (MAXITROL) 3.5-08170-6.[address] 0.25 inches Into the [...] of end-stage renal disease normally dialyzes in [place]. Did not dialyze today which would have [...] multivitamin RENAL (RENAVITE RX/NEPHROVITE) 1 tablet tablet hwsndaqi-poxjevlxu-fmbGKSWYiaegn (MAXITROL) 3.5-48614-1.1 ophthalmic ointment nicotine (NICODERM CQ) 14 MG/24HR [...] Pressure Ventricular Rate 75 Atrial Rate 75 [place] Interval 178 QRS Duration 86 QT 394 QTc 439 P [place] 81 R AXIS 44 T [place] 91 Interpretation ECG Sinus rhythm Normal ECG [...] prolonged, 1833 Lung biopsy April 07, 2024 [facility] [place] was positive for malignancy, squamous cell carcinoma. Social Determinants of Health affecting care: Disposition: discharge Impression & Plan [facility] Diagnoses: MIPS (If applicable): Medical Decision [...] follow-up with her PCP and oncology in [place]. She was comfortable and agreeable with that [...] pharmacist at primary pharmacy Changes made to [facility] medication list: Added: calcium acetate, hydralazine, losartan, methocarbamol, nifedipine, spironolactone, Breo inhaler, Albuterol inhaler Deleted: senna, sorbitol, Incruse inhaler, miralax, labetalol, cetirizine, amlodipine Changed: nicotine patch (21 mg --> 14 mg) Allergies reviewed with patient and updates made in EHR: no Medication History Completed By: Tony Alcantar RPH 04/27/2024 5:16 PM [facility] Med List Medication Sig Note Last Dose/Taking [...] 1 tablet by mouth daily Past Week ukadcack-dryrnblia-vjySJSXIcawxz (MAXITROL) 3.5-80191-9.[address] 0.25 inches Into the [...] MD LAB - BLOOD ORDERABLES Final Result [facility] [address] Lab (1st floor, no room number) [place] [address], [facility] * [...] CT CHEST PULMONARY EMBOLISM W CONTRAST LOCATION: [facility] DATE: 04/27/2024 INDICATION: Chest pain, elevated d-dimer [...] CT CHEST PULMONARY EMBOLISM W CONTRAST LOCATION: [facility] DATE: 04/27/2024 INDICATION: Chest pain, elevated d-dimer [...] US LOWER EXTREMITY VENOUS DUPLEX RIGHT LOCATION: [facility] DATE: 04/27/2024 INDICATION: RLQ pain, no trauma [...] US LOWER EXTREMITY VENOUS DUPLEX RIGHT LOCATION: [facility] DATE: 04/27/2024 INDICATION: RLQ pain, no trauma [...] fluid collection right groin. Jason Tapia MD [facility] [place] ORDERABLES Final Result * (ABNORMAL) Troponin T, High Sensitivity (04/27/2024 3:52 PM CDT) [facility] Troponin T, High Sensitivity 144(HH) <=14 [...] - BLOOD ORDERABLES Final Result [facility] Lab [address] Lab (1st floor, no room number) [place] [address], [facility] * [...] out pulmonary embolism: The ADJUST-PE Study. REGINA 2014;311:7400-5556.; ASAF Le et al. Diagnostic accuracy of conventional or age adjusted D-dimer cutoff values in older patients with suspected venous thromboembolism. Systemic review and meta-analysis. BMJ 2013:346:f2492. us Jason Tapia MD LAB - BLOOD ORDERABLES Final Result [facility] Care [facility] [address] Lab (1st floor, no room number) [address] * Extra Red Top Tube (04/27/2024 1:53 PM CDT) Hold Specimen [facility] 04/27/2024 3:01 PM CDT [facility] Blood BLOOD SPECIMEN / Unknown Venipuncture / Unknown 04/27/2024 1:53 PM CDT 04/27/2024 1:56 PM CDT Jason Tapia MD LAB - BLOOD ORDERABLES Final Result Performing Organization Address City/[facility]/ZIP Co de Phone Number [facility] [address] Lab (1st floor, no room number) [address] * Extra Blue Top Tube (04/27/2024 1:53 PM CDT) Hold Specimen [facility] 04/27/2024 3:01 PM CDT [facility] Blood BLOOD SPECIMEN / Unknown Venipuncture / Unknown 04/27/2024 1:53 PM CDT 04/27/2024 1:56 PM CDT Jason Tapia MD LAB - BLOOD ORDERABLES Final Result [facility] Care Lab [address] Lab (1st floor, no room number) [address] * (ABNORMAL) CBC with platelets and [...] ORDERABLES Final Result Performing Organization Address City/[facility]/ZIP Co de Phone Number [facility] [address] Lab (1st floor, no room number) [place] [address] * (ABNORMAL) Troponin T, High Sensitivity (04/27/2024 1:53 PM CDT) [facility] Troponin T, High Sensitivity 135(HH) <=14 [...] MD LAB - BLOOD ORDERABLES Final Result [facility] [address] Lab (1st floor, no room number) [place] [address] * (ABNORMAL) Comprehensive metabolic [...] MD LAB - BLOOD ORDERABLES Final Result [facility] [address] Lab (1st floor, no room number) [place] [address], [facility] documented [...] cloNIDine (CATAPRES) tablet 0.1 mg 0.1 mg (0.74501 mg/kg), Oral, ONCE, On Sat04/27/24 at 1510, [...] (CATAPRES) tablet 0.1 mg (COMPLETED) 0.1 mg (0.78081 mg/kg), Oral, ONCE, On Sat04/27/24 at 1510, [...] RN) documented in this encounter Care Teams Support Architect Relationship Specialty Start Date End Date Tyrell Schneider [address] [place] [address] PCP - General Family Medicine 02/19/23 documented as of this encounter
--- OUTSIDE RECORDS SUMMARY | 2024-06-03 22:53 | XMS_ITS | Encounter Summary ---
Author Organization [facility] Address [address] [place] [address] Care Team Providers Care Sanitation Associate Name Role Phone Tyrell Schneider Primary Care Provider [phone] Encounter Details Date Type Department Care Team [...] on filedocumented in this encounter Care Teams Sanitation Associate Relationship Specialty Start Date End Date Tyrell Schneider [address] [place] [address] PCP - General Family Medicine 02/19/23 documented as of this encounter
--- OUTSIDE RECORDS SUMMARY | 2024-06-03 22:53 | XMS_ITS | Clinical Summary ---
Author Organization [facility] Address [address] [place] [address] Care Team Providers Care Security Orderly Name Role Phone Tyrell Schneider Bulmaro Primary Care Provider [phone] Allergies Active Allergy Reactions Criticality Noted Date [...] 01/09/2010 itching Niacin Rash,Itching Low 05/13/2006 itch [place] Rash Low 05/16/2010 Oxycodone Nausea and [...] times daily 3 Active neomycin-polymyx in-dexAMETHasone (MAXITROL) 3.5-53038-6.[address] 0.25 inches Into the [...] CDT - 04/27/2024 8:51 PM CDT Emergency [facility] Emergency Dept [address] [place] [address] Jason Tapia MD Left-sided chest pain; Mass of upper lobe of left lung Discharge Disposition: Home or Self Care 04/27/2024 Results Only [facility] [address] [place] [id number] Emanuel Lozano MD 04/27/2024 Travel from Last [...] CDT RENAL PANEL Routine 12/18/2022 8:45 AM TRANSFER CAR OPERATOR DRIER OCCULT BLOOD STOOL STAT 12/12/2022 11 :03 PM CDT from Last 3 Months or Most Recently Relevant to Health Maintenance Results * (ABNORMAL) Troponin T, High Sensitivity (04/27/2024 6:12 PM CDT) Only the most recent of3 resultswithin the time period is included. [facility] Troponin T, High Sensitivity 137(HH) <=14 ng/L [...] MD LAB - BLOOD ORDERABLES Final Result [facility] Acute Care [facility] [address] [facility] (1st floor, no room number) [place] [address], [facility] * CT Chest Pulmonary Embolism w Contrast [...] CT CHEST PULMONARY EMBOLISM W CONTRAST LOCATION: [facility] DATE: 04/27/2024 INDICATION: Chest pain, elevated [...] CT CHEST PULMONARY EMBOLISM W CONTRAST LOCATION: [facility] DATE: 04/27/2024 INDICATION: Chest pain, elevated [...] 1.8 cm in short axis (series 6 [id number]) and left prevascular node measuring 1.2 cm [...] US LOWER EXTREMITY VENOUS DUPLEX RIGHT LOCATION: [facility] DATE: 04/27/2024 INDICATION: RLQ pain, no [...] US LOWER EXTREMITY VENOUS DUPLEX RIGHT LOCATION: [facility] DATE: 04/27/2024 INDICATION: RLQ pain, no [...] BPM MUSE Atrial Rate 69 BPM MUSE WA Interval 178 ms MUSE QRS Duration 82 ms MUSE QT 394 ms MUSE QTc 422 ms MUSE P [place] 75 degrees MUSE R AXIS 24 degrees MUSE T [place] 80 degrees MUSE Interpretation ECG Sinus rhythm Minimal voltage criteria for LVH, may be normal variant ( Bennie product ) Borderline ECG When compared with ECG of 27-Apr-2024 14:32, (unconfirmed) No significant change was found Unconfirmed report - interpretation of this ECG is computer generated - see medical record for final interpretation Confirmed by - EMERGENCY ROOM, PHYSICIAN ([id number]), editorial clerk Song Cheung ([id number]) on 04/27/2024 3:21:42 PM MUSE 04/27/2024 2:47 [...] LAB - BLOOD ORDERABLES Final Result LABORATORY [facility] Care Lab [address] Lab (1st floor, no room number) [place] [phone] * Extra Blue Top Tube (04/27/2024 1:53 PM CDT) [facility] Signature Hold Specimen [facility] 04/27/2024 3:01 PM CDT [facility] LABORATORY Blood BLOOD SPECIMEN / Unknown Venipuncture / Unknown 04/27/2024 1:53 PM CDT 04/27/2024 1:56 PM CDT Jason Tapia MD LAB - BLOOD ORDERABLES Final Result [facility] Lab [address] Lab (1st floor, no room number) [place] [phone] * (ABNORMAL) CBC with platelets and differential (04/27/2024 1:53 PM CDT) [facility] WBC Count 14.2(H) 4.0 - 11.0 10e3/uL [...] BLOOD ORDERABLES Final Result Performing Organization Address [facility]/ZIP Co de Phone Number [facility] Acute Care Lab [address] [facility] Lab (1st floor, no room number) [place] [address] * (ABNORMAL) D dimer quantitative (04/27/2024 [...] out pulmonary embolism: The ADJUST-PE Study. REGINA 2014;311:5422-3713.; ASAF Le et al. Diagnostic accuracy of conventional or age adjusted D-dimer cutoff values in older patients with suspected venous thromboembolism. Systemic review and meta-analysis. BMJ 2013:346:f2492. Jason Tapia MD LAB - BLOOD ORDERABLES Final Result Performing Organization Address City/[facility]/ZIP Co de Phone Number [facility] Acute Care Lab [address] Lab (1st floor, no room number) [place] [address], [facility] * (ABNORMAL) Comprehensive metabolic panel (04/27/2024 1:53 [...] LAB - BLOOD ORDERABLES Final Result LABORATORY [facility] Acute Care Lab [address] Lab (1st floor, no room number) [place] [address] * (ABNORMAL) Renal panel (12/18/2022 8:45 AM TRANSFER CAR OPERATOR DRIER) [facility] Sodium 135 135 - 145 mmol/L 12/18/2022 9:44 AM [facility] Comment:Reference intervals for this test were updated on 11/06/2022 to more accurately reflect our healthy population. There may be differences in the flagging of prior results with similar values performed with this method. Interpretation of those prior results can be made in the context of the updated reference intervals. Potassium 4.2 3.4 - 5.3 mmol/L 12/18/2022 9:44 AM [facility] Chloride 99 98 - 107 mmol/L 12/18/2022 9:44 AM [facility] Carbon Dioxide (CO2) 29 22 - 29 mmol/L 12/18/2022 9:44 AM [facility] Anion Gap 7 7 - 15 mmol/L 12/18/2022 9:44 AM [facility] Glucose 128(H) 70 - 99 mg/dL 12/18/2022 9:44 AM [facility] Urea Nitrogen 17.7 8.0 - 23.0 mg/dL 12/18/2022 9:44 AM [facility] Creatinine 2.67(H) 0.51 - 0.95 mg/dL 12/18/2022 9:44 AM [facility] GFR Estimate 18(L) >60 mL/min/1. 73m2 12/18/2022 9:44 AM [facility] Calcium 7.6(L) 8.8 - 10.2 mg/dL 12/18/2022 9:44 AM [facility] Albumin 2.6(L) 3.5 - 5.2 g/dL 12/18/2022 9:44 AM TRANSFER [employer] OPER[employer] DRIER LABORATORY Phosphorus 2.3(L) 2.5 - 4.5 mg/dL 12/18/2022 9:44 AM TRANSFER CAR OPERATOR DRIER LABORATORY Blood STRUCTURE OF RIGHT UPPER LIMB / Unknown Venipuncture / Unknown 12/18/2022 8:45 AM TRANSFER CAR OPERATOR DRIER 12/18/2022 8:50 AM TRANSFER CAR OPERATOR DRIER us David Treviño MD LAB - BLOOD ORDERABLES Final Res ult [facility] Lab [address] Lab (1st floor, no room number) [place] [address], [facility] [phone] * Stool: occult blood (12/12/2022 11:03 PM CDT) [facility] Occult Blood Negative Negative JENNIFER 12/12/2022 11:32 PM CDT LABORATORY Stool RECTAL CONTENTS / Unknown Non-blood Collection / Unknown 12/12/2022 11:03 PM CDT 12/12/2022 11:11 PM CDT us Jason Tapia MD LAB - STOOLS ORDERABLES Final Result [facility] Lab [address] Lab (1st floor, no room number) [place] [address], [facility] [phone] from Last 3 Months or Most Recently Relevant to Health Maintenance Insurance [facility] MEDICARE ADVANTAGE [employer] MEDICARE ADVANTAGE Advance Directives For more information, please contact: [phone] * Full Code (Latest Code Status on [...] patie nt/ legal decision maker Care Teams Security Orderly Relationship Specialty Start Date End Date Tyrell Schneider [address] [place] [address] PCP - General Family Medicine 02/19/23
--- OUTSIDE RECORDS SUMMARY | 2024-06-03 22:53 | XMS_ITS | Encounter Summary ---
Author Organization [facility] Address [address] [place] [address] Care Team Providers Care Yield Analyst Name Role Phone Tyrell Schneider Primary Care Provider [phone] Encounter Details Date Type Department Care Team (Late st Contact Info) Description 04/27/2024 Results Only [facility] [address] [place] [address] Emanuel Lozano MD [facility] [address], [facility] [address] [place] [address] Social History Tobacco Use Types Packs/Day Years [...] BPM MUSE Atrial Rate 69 BPM MUSE CA Interval 178 ms MUSE QRS Duration 82 ms MUSE QT 394 ms MUSE QTc 422 ms MUSE P [place] 75 degrees MUSE R AXIS 24 degrees MUSE T [place] 80 degrees MUSE Interpretation ECG Sinus rhythm Minimal voltage criteria for LVH, may be normal variant ( [place] product ) Borderline ECG When compared with ECG of 27-Apr-2024 14:32, (unconfirmed) No significant change was found Unconfirmed report - interpretation of this ECG is computer generated - see medical record for final interpretation Confirmed by - EMERGENCY ROOM, PHYSICIAN ([id number]), web content editor Song Cheung ([id number]) on 04/27/2024 3:21:42 PM MUSE 04/27/2024 2:47 PM CDT 04/27/2024 3:21 PM CDT us Emanuel Lozano MD ECG ORDERABLES Edited Result - Final MUSE documented in this encounter Visit Diagnoses Not on filedocumented in this encounter Care Teams Yield Analyst Relationship Specialty Start Date End Date Tyrell Schneider [address] [place] [address] PCP - General Family Medicine 02/19/23 documented as of this encounter
--- OUTSIDE RECORDS SUMMARY | 2024-06-03 22:54 | XMS_ITS | CONTINUITY OF CARE DOCUMENT ---
Author Name User, QIE Address [address] [place] [address] Organization [facility] Address [address] [facility] [address] [place] [address] Phone [phone] Care Team Providers Care Process Development Chemist Name Role Phone User, QIE Unavailable Unavailable PROBLEMS Condition Status Date Provider Notes Organizati on CKD STAGE ESRD ON DIALYSIS GFR <15 active Shakira Jacobs THUMB SEWER THUMB SEWER, [address] [place] [address] [address] [facility] VITAL SIGNS Date Observation Value Provider Organization blood pressure, diastolic 58 mm[Hg] Padmaja Das RN RN, [address] [place] [address] [address] [facility] blood pressure, systolic 141 mm[Hg] Padmaja Das RN RN, [address] [place] [address] [address] [facility] respiratory rate E&M 16 /min Padmaja Solares RN RN, [address] [place] [address] [address] [facility] pulse rate 56 /min Padmaja Das RN RN, [address] [place] [address] [address] [facility] blood pressure, site #1 Upper arm Padmaja Das RN RN, [address] [place] [address] [address] [facility] blood pressure, diastolic, right arm 58 mm[Hg] Padmaja Das RN RN, [address] [place] [address] [address] [facility] blood pressure, systolic, right arm 141 mm[Hg] Padmaja Das RN RN, [address] [place] [address] [address] [facility] temperature E&M 98.0 [degF] Padmaja Das RN RN, [address] [facility] [address] [facility] Body Mass Index (Ratio) 19.46 kg/m2 Padmaja Das RN RN, [address] [facility] [address] [facility] height E&M 62 [in_i] Padmaja Das RN RN, [address] [facility] [id number] [place] [address] [facility] weight E&M 106 [lb_av] Padmaja Das RN RN, [address] [facility] [id number] [place] [address] [facility] ALLERGIES Allergy Name Onset Date Reaction Criticality Status Provider Organization DIGIFAB itching Low Criticality active Padmaja Das RN RN, [address] [facility] [address] [facility] GATIFLOXACIN nausea Low Criticality active Ginger Lundahl RDMS, RVT RDMS, RVT, [address] [facility] [address] [facility] PRAVASTATIN SODIUM myalgia Low Criticality active Ginger Lundahl RDMS, RVT RDMS, RVT, [address] [facility] [address] [facility] VITEYES OMEGA-3 itching Low Criticality active Ginger Lundahl RDMS, RVT RDMS, RVT, [address] [facility] [address] [facility] OAK rash Low Criticality active Ginger Lundahl RDMS, RVT RDMS, RVT, [address] [facility] [address] [facility] NIACIN itching Low Criticality active Ginger Lundahl RDMS, RVT RDMS, RVT, [address] [facility] [address] [facility] LOSARTAN POTASSIUM itching Low Criticality active Ginger Lundahl RDMS, RVT RDMS, RVT, [address] [facility] [address] [facility] LISINOPRIL rash Low Criticality active Ginger Lundahl RDMS, RVT RDMS, RVT, [address] [facility] [address] [facility] LIPITOR myalgia Low Criticality active Ginger Lundahl RDMS, RVT RDMS, RVT, [address] [place] [address] [facility] HYDROCHLOROTHIAZIDE had significant pruritic rash High Criticality active Ginger Lundahl RDMS, RVT RDMS, RVT, [address] [facility] [address] [facility] GEMFIBROZIL itching Low Criticality active Ginger Lundahl RDMS, RVT RDMS, RVT, [address] [facility] [address] [facility] BUCIO edema Low Criticality active Ginger Lundahl RDMS, RVT RDMS, RVT, [address] [facility] [address] [facility] CATS SOB SOB High Criticality active Ginger Lundahl RDMS, RVT RDMS, RVT, [address] [facility] [address] [facility] ATENOLOL rash Low Criticality active Ginger Lundahl RDMS, RVT RDMS, RVT, [address] [facility] [address] [facility] AMPICILLIN hives Low Criticality active Ginger Lundahl RDMS, RVT RDMS, RVT, [address] [facility] [address] [facility] RESULTS Date Observation Value Provider Organization Refer ence Range Interpretation Location blood glucose, finger stick 161 Padmaja Das RN RN, [address] [facility] [address] [facility] HISTORY OF MEDICATION USE Medication Instructions Status Dates Provider Indications Com ments Organization triamcinolone acetonide 0.1% cream active Tamela Karl , [address] [facility] [address] [facility] sorbitol 70% solution TAKE 30 ML BY MOUTH ONCE A DAY NEEDED FOR CONSTIPATION* active Tamela Karl , [address] [facility] [address] [facility] [address] [facility] senna 8.6 mg tablet take 1-4 tablets by mouth once daily as needed to achieve 2-3 soft bowel movements daily active Tamela Barajas , [address] [facility] [address] [facility] [address] [facility] furosemide 40 mg tablet 1 tablet once a day active [address] [place] [address] [facility] labetalol 300 mg tablet as directed active [address] [facility] [address] [facility] moxifloxacin 0.5% drops as directed active [address] [place] [address] [facility] mupirocin 2% ointment as directed active [address] [facility] [address] [facility] pantoprazole 40 mg tablet,delayed release (DR/EC) 1 tablet twice a day active [address] [facility] [address] [facility] repaglinide 1 mg tablet 1 tablet three times a day active [address] [facility] [address] [facility] TYLENOL WITH CODEINE #3 300-30 MG ORAL TABLET 1-2 tablet every four to six hours as needed completed 05/19 - 04/[address] [facility] [address] [facility] Cipro 500 mg tablet Take 1 tablet by mouth once a day completed 05/19 - 04/[address] [facility] [address] [facility] sodium bicarbonate 650 mg tablet 1 tablet twice a day completed 02/22 - 04/[address] [facility] [address] [facility] labetalol 200 mg tablet 2 tablet twice a day completed 02/22 - 04/[address] [facility] [address] [facility] Levsin 0.125 mg tablet 1-2 tablet every four hours as needed completed 02/22 - 04/[address] [facility] [address] [facility] glipizide 10 mg tablet 2 tablet once a day active 02/22 Ginger Lundahl RDMS, RVT RDMS, RVT, [address] [place] [address] [address] [facility] [address] [facility] ADVAIR DISKUS 250-50 MCG/DOSE INHALATION AEROSOL POWDER BREATH ACTIVATED 1 puff every twelve hours completed 02/22 - 04/[address] [facility] [address] [facility] clonidine HCl 0.2 mg tablet 2 tablet every night active 02/22 Gingermichell Engelahl RDMS, RVT RDMS, RVT, [address] [place] [address] [address] [facility] [address] [facility] cetirizine 10 mg tablet 1 tablet once a day completed 02/22 - 04/[address] [facility] [address] [facility] calcitriol 0.25 mcg capsule 1 capsule once a day completed 02/22 - 04/[address] [facility] [address] [facility] bisacodyl 10 mg suppository once a day completed 02/22 - 04/[address] [facility] [address] [facility] aspirin 81 mg tablet,delayed release (DR/EC) 1 tablet once a day completed 02/22 - 04/[address] [facility] [address] [facility] amlodipine 10 mg tablet 1 tablet twice a day active 02/22 Ginger Engelahl RDMS, RVT RDMS, RVT, [address] [place] [address] [address] [facility] [address] [facility] albuterol sulfate 2.5 mg/3 mL (0.083 %) solution for nebulization Inhale 3 ml every four hours as needed active 02/22 Ginger Lundahl RDMS, RVT RDMS, RVT, [address] [place] [address] [address] [facility] [address] [facility] SOCIAL HISTORY Date Observation Value Provider Organization site on body for surgical procedure brachiobasilic fistula Mahogany Rm MD, MD, [address] [facility] [address] [facility] social history reviewed E&M reviewed - no changes required Padmaja Das RN RN, [address] [facility] [address] [facility] [address] [facility] INSURANCE PROVIDERS Payer name Policy type / Coverage type [facility] ID [employer] BLUE [employer] - BCBS XZ [id number] MEDICARE [id number] HISTORY OF PROCEDURES Procedure Date Procedure Name Provider Procedure Notes Status Organization SNOMED-CT: [id number] Current Medications Documented Mahogany Rm MD, MD, [address] [facility] [address] completed [facility] INJECTION FENTANYL CITRATE 100MCG Mahogany Rm MD, MD, [address] [place] [address] completed [facility] INJECTION MIDAZOLAM HCL PER 1 MG Mahogany Rm MD, MD, [address] [place] [address] completed [facility] Omnipaque-Visipaque Mahogany Rm MD, MD, [address] [facility] [address] 45ml completed [facility] Wire Mahogany Rm MD, MD, [address] [place] [address] completed [facility] Balloon Mahogany Rm MD, MD, [address] [place] [address] completed [facility] Sheath Mahogany Rm MD, MD, [address] [place] [address] completed [facility] INFUS NORMAL SALINE SOLUTION 250 CC Mahogany Rm MD, MD, [address] [place] [address] completed [facility] Angioplasty within including RS&I Mahogany Rm MD, MD, [address] [place] [address] completed [facility] Fistulagram, Dialysis Mahogany Rm MD, MD, [address] [place] [address] completed [facility] Antibiotic-No Order Mahogany Rm MD, MD, [address] [place] [address] completed [facility] Quailty Measures all negative Mahogany Rm MD, MD, [address] [place] [address] completed [facility] SNOMED-CT:HISTORICAL PNEUMOCOCCAL VACCINATION Mahogany Rm MD, MD, [address] [place] [address] completed [facility] SNOMED-CT:PATIENT ENCOUNTER Mahogany Rm MD, MD, [address] [facility] [address] completed [facility]
== END 2024-06-03 23:05 | disposition short-term general hospital (02) ==
PROVIDERS: Emergency Provider Family Medicine; PCP Family Medicine
DX: S01.81XA Laceration without foreign body of other part of head, initial encounter (principal); W01.0XXA Fall on same level from slipping, tripping and stumbling without subsequent striking against object, initial encounter
CPT/HCPCS: 70450; 70486; 72125; 99284; 99291; G0390

== ENCOUNTER 2024-06-03 22:50 | Outpatient (CLI) | payer MEDICARE, SELFPAY | END 2024-06-03 22:51 | disposition home or self-care (01) | LOC: AMB 06-05 09:55 | PROVIDERS: PCP Family Medicine; Visit Provider Family Medicine | DX: R42 Dizziness and giddiness (principal); S09.90XA Unspecified injury of head, initial encounter; W18.30XA Fall on same level, unspecified, initial encounter; Y92.524 Gas station as the place of occurrence of the external cause | CPT/HCPCS: A0425; A0427 ==

== ENCOUNTER 2024-06-17 07:32 | Outpatient (RCR) | payer MEDICARE, SELFPAY ==
--- NOTE | 2024-05-12 09:02 | ONC.NURNOTE ---
Addendum entered by Dori Velásquez, RN 05/27/24 10:41: Patient was scheduled to see medical oncology on 05/20. She overslept and missed this appointment. In the meantime, patient was seen in the ER on 05/22 and was shipped out to [facility]. Tentative appointment set up for next week was cancelled, as patient will need to have PET scan prior to being seen per oncologist. I&C Technician left message for Dori, director medicare sales with [facility] to call [facility] to discuss patient. If she is able it would be ideal to have patient consulted by oncology at [place] and if needed patient can transfer her plan to us once discharged. Original Note: Coordination for initial consult with Dr Dailey patient has had multiple admissions to [facility] initial consult for 05/11 was rescheduled due to hospitalization for 05/20- however Maricruz states that she is scheduled for dialysis MWF plan to move appt to a Saturday Televisit MRI brain done at [facility]- results requested from medical records Maricruz is currently an inpt at [facility] Dori - Whipped Topping Mixer at [facility] w/ Dr Schneider will let us know when Maricruz is discharged ph # [phone] singer songwriter inquired with Dori if an Oncology Consult could be initiated while inpt at [facility] Transportation is a barrier- patient uses bus service in [place]
--- NOTE | 2024-06-03 14:35 | ONC.NURNOTE ---
Addendum entered by Dori Velásquez RN 06/04/24 11:51: Chief Librarian Branch looked into patient status. She has been re-admitted to [facility] for syncope and fall. Discussed with [facility] PCP office that will hold scheduling until next week to see her status. They are agreeable with this plan. No value added in contacting the son at this point, will contact next week once a plan is in place. Original Note: This commercial insurance underwriter received a call from Dr Nita Philip [facility] at [facility] will likely be discharged to home in the next few days A PET Scan was done yesterday ([facility]) He recommended continued oncology follow up and management in [place] will discuss scheduling and contact social work specialist for need for transportation patient missed her last appt due to lack of ride to the [facility] appts will need to work around her MWF dialysis schedule
--- NOTE | 2024-06-11 13:50 | ONC.NURNOTE ---
transportation for the 06/17 [facility] 7 am roll picker at home to [place]-main entrance 8:[address] Dailey [id number] roll picker from [place] to either home or dialysis message left with Don at Dialysis [phone] with the schedule
== END 2024-12-14 23:59 | disposition home or self-care (01) ==
LOC: CCIC 07:32
PROVIDERS: PCP Family Medicine; Visit Provider Internal Medicine Hematology & Oncology
DX: C34.92 Malignant neoplasm of unspecified part of left bronchus or lung (principal); J44.9 Chronic obstructive pulmonary disease, unspecified; E11.9 Type 2 diabetes mellitus without complications; I12.9 Hypertensive chronic kidney disease with stage 1 through stage 4 chronic kidney disease, or unspecified chronic kidney disease; F17.200 Nicotine dependence, unspecified, uncomplicated; N18.6 End stage renal disease; Z99.2 Dependence on renal dialysis; R62.7 Adult failure to thrive; E43 Unspecified severe protein-calorie malnutrition; G93.41 Metabolic encephalopathy; I67.4 Hypertensive encephalopathy
CPT/HCPCS: 99202; 99205

== ENCOUNTER 2024-06-20 18:12 | Outpatient (CLI) | payer MEDICARE, SELFPAY | END 2024-06-20 18:13 | disposition home or self-care (01) | LOC: AMB 06-22 12:45 | PROVIDERS: PCP Family Medicine; Visit Provider Emergency Medicine Emergency Medical Services | DX: R53.1 Weakness (principal) | CPT/HCPCS: A0998 ==

== ENCOUNTER 2024-06-23 16:35 | Emergency (ER) | payer MEDICARE, SELFPAY ==
[2024-06-23] VITALS (43 sets, daily range): BP systolic 115–211; BP diastolic 62–122; PULSE 90–114; RESP 17–53; TEMP 36.8; O2SAT 70–94
--- OUTSIDE RECORDS SUMMARY | 2024-06-23 16:38 | XMS_ITS | Clinical Summary ---
Author Organization [employer] Address [address] [place] [phone] Phone Care Team Providers Care Business Liaison Officer Name Role Phone Unavailable Primary Care Provider Unavailabl e Source Comments [employer] is fully rolled out on [employer]. Last update 07/16/08.[employer] Allergies Active Allergy Reactions Criticality Noted Date Comments Atenolol Hives,Itching/Pruritus 06/27/2005 Hydrochlorothiazide Hives,Itching/Pruritus 06/11 Lisinopril Hives,Itching/Pruritus 06/27/2005 Niacin Itching/Pruritus 06/27/2005 Tetracyclines & Related Hives 06/27/2005 Medications * This document contains information received from the source organization and may not represent a complete record from that organization. * Be aware that medications may not be up to date as of this document. Always verify current medications with patient. albuterol (VENTOLIN HFA;PROVENTIL HFA;PROAIR) 108 (90 BASE) mcg/act inhalation inhaler Inhale 2 puffs every 6 hours as needed. Active albuterol (ACCUNEB;VENTOL IN) 2.5 mg/3 mL inhalation inhalation solution 3 mL (2.5 mg) by Nebulization route every 4 hours as needed for Wheezing. Active aspirin 81 mg oral chewable tab Take 1 tablet (81 mg) by mouth daily. Active B Etizqta-C-Mtanu Acid (NEPHROCAPS ORAL) Take 1 capsule by mouth daily in the afternoon. Active calcium acetate (PHOSLO) 667 mg oral capsule Take 3 capsules (2,001 mg) by mouth 3 times daily with meals. Active furosemide (LASIX) 40 mg oral tablet Take 1 tablet (40 mg) by mouth daily. Active glipiZIDE XL 10 mg oral extended release tablet Take 2 tablets (20 mg) by mouth daily. Active hydrALAZINE (APRESOLINE) 100 mg oral TABS Take 100 mg by mouth 3 times daily. Active magnesium glycinate 100 mg oral capsule Take 1 capsule (100 mg) by mouth daily. Active methocarbamol (ROBAXIN-500) 500 mg oral TABS Take 1 tablet (500 mg) by mouth twice daily as needed (muscle spasm). Active nicotine (NICOTROL) 7 mg/ 24hr transdermal patch 24 HR Apply 1 patch to skin daily. Active NIFEdipine (PROCARIDA XL) 60 mg oral XL tablet Take 120 mg by mouth daily. Active oxyCODONE (ROXICODONE) 5 mg oral tablet Take 1 tablet (5 mg) by mouth daily as needed for Pain. Active polyethylene glycol 3350 (MIRALAX;GLYCOL AX) 17 g oral powder Take 1 Tbsp (17 g) by mouth daily. Active pantoprazole (PROTONIX) 40 mg oral tablet Take 1 tablet (40 mg) by mouth twice daily. Active repaglinide (PRANDIN) 1 mg oral TABS Take 1 mg by mouth 3 times daily before meals. Active sennosides (SENOKOT) 8.6 mg oral tablet Take 1-4 tablets by mouth once daily as needed to achieve 2-3 soft bowel movements daily Active triamcinolone acetonide (KENALOG) 0.1% externally cream Apply topically to affected areas twice daily for no more than 14 days in one location Active cloNIDine (CATAPRES) 0.3 mg oral TABS Take 0.3 mg by mouth twice daily. Active fluticasone furoate-vilante rol (BREO ELLIPTA) 100-25 mcg/inh inhalation Inhale 1 puff daily. Active losartan (COZAAR) 50 mg oral TABS Take 1 tablet (50 mg) by mouth twice daily. Active spironolactone (ALDACTONE) 25 mg oral TABS Take 1 tablet (25 mg) by mouth daily. Active umeclidinium bromide (INCRUSE ELLIPTA) 62.5 mcg/ACT inhalation Inhale 1 puff daily. Active Active Problems Problem Noted Date Diagnosed Date Syncope, unspecified syncope type 06/04/2024 Encounters Date Type Department Care Team Description 06/05/2024 Documentation Only Transplant Program [address] [place] [address] Delma Montemayor 06/04/2024 [facility] [address] [place] [id number] Case Alvarez MD 06/04/2024 Orders Only Unspecified Department [place] Unknown, Provider 06/04/2024 Documentation Only Transplant Program [address] [place] [address] Delma Montemayor 06/04/2024 Orders Only Unspecified Department [place] Unknown, Provider 06/04/2024 Travel 06/03/2024 11:58 PM CDT - 06/04/2024 3:49 PM CDT Emergency [facility] [address] [place] [address] Lourdes Hastings MD O'Shaughnessy, Eileen, MD Syncope, unspecified syncope type Discharge Disposition: Discharged to home or self care 06/03/2024 12:15 AM CDT - 06/03/2024 11:33 PM CDT Emergency [facility] Emergency Department [address] [place] [address] Eye trauma from fall; also head and neck trauma Discharge Disposition: Left against medical advice or discontinued care from Last 3 Months Social History Tobacco Use Types Packs/Day Years Used Date Smoking Tobacco: Never Assessed Humiliation, Afraid, Rape, and Kick questionnair e Answer Date Recorded Within the last year, have y ou been afraid of your partner or ex-partner? No 06/04/2024 Within the last year, have y ou been humiliated or emotionally abused in other ways by your partner or ex-partner? No Within the last year, have y ou been kicked, hit, slapped, or otherwise physically hurt by your partner or ex-partner? No 06/04/2024 Within the last year, have y ou been raped or forced to have any kind of sexual activity by your partner or ex-partner? No 06/04/2024 Overall Financial Resource Strain (CARDIA) Answe r Date Recorded How hard is it for you to pa y for the very basics like food, housing, medical care, and heating? Not hard at all 06/04/2024 Hunger Vital Sign Answer Date Recorded Within the past 12 months, y ou worried that your food would run out before you got the money to buy more. Never true 06/05/19 25 Within the past 12 months, t he food you bought just didn't last and you didn't have money to get more. Never true 06/04/2024 PRAPARE - Transportation Answer Date Re corded In the past 12 months, has l ack of transportation kept you from medical appointments or from getting medications? No 05/13 In the past 12 months, has l ack of transportation kept you from meetings, work, or from getting things needed for daily living? No 06/04/2024 Housing Stability Answer Date Recorded What is your housing situation today? 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 Gender Identity Not on file Sexual Orientation Not on file Last Filed Vital Signs Vital Sign Reading Time Taken Comments Blood Pressure 187/65 06/04/2024 1:17 PM CDT Pulse 82 06/04/2024 1:17 PM CDT Temperature 36.4 C (97.6 F) 06/04/2024 12:26 PM CDT Respiratory Rate 16 06/04/2024 12:26 PM CDT Oxygen Saturation 94% 06/04/2024 12:26 PM CDT Inhaled Oxygen Concentration - - Weight 38.8 kg (85 lb 8.6 oz) 06/04/2024 5:00 AM CDT Height 154.9 cm (5' 1) 06/04/2024 4:30 AM CDT Body Mass Index 16.16 06/04/2024 4:30 AM CDT Plan of Treatment Health Maintenance Due Date Last Done Comments Asthma Action Plan 1947 Asthma Control Test 1947 Dental Oral Exam 1947 Dental Prophylaxis 1947 Dental X-Ray: Bitewings 1947 Depression Management 1947 Hepatitis C Screening 1947 Diabetes Education 08/30/1948 Diabetes Eye Exam 08/30/1948 Diabetes Foot Exam 08/30/1948 Diabetes Microalbumin Screening 08/30/1948 Diabetic Education Protocol (CDE) 08/30/1948 Diabetic Lab Protocol 08/30/1948 Periodontal Maintenance 08/30/1961 Imm: Zoster (1 of 2) 08/30/1997 Imm: HepB (3 of 3 - 19+ 3-dose series) 11/29/2000 10/04/2000, 04/11/2000 Imm: DTaP/Tdap (2 - Td or Tdap) 05/30/2020 05/30/2010, 02/12/2000 Imm: Flu (#1) 10/13/2023 10/19/2022, 10/12, 10/14/2019, Additional history exists Imm: COVID-19 () 05/22/2024 11/22/2023, 12/25/2022, 10/25/2021, Additional history exists Diabetes HGB A1C Q 3 Months (Goal <7) 07/22/2024 04/21/2024, 04/21/2024, 07/09/2023, Additional history exists Medicare Annual Wellness 11/21/2024 11/22/2023 Lipid Screening 11/15/2027 11/14/2022, 10/12, 10/11/2020, Additional history exists Osteoporosis Screening (Dexa Scan) Completed 04/12/2016, 04/12/2016 Imm: Pneumonia 50 years and older Completed 04/10/2022, 12/31/2012, 06/25/2002 Breast Cancer Screening Discontinued 05/23/19, 07/22/2017, 11/21/1999, Additional history exists Colorectal Cancer Screening Discontinued iFOB/FIT Discontinued 12/12/2022 CT Colonography Discontinued Colonoscopy Discontinued FIT/Cologuard Discontinued Imm: HPV Aged Out No longer eligi ble based on patient's age to complete this topic Imm: HepA Aged Out No longer eligi ble based on patient's age to complete this topic Imm: Hib Aged Out No longer eligi ble based on patient's age to complete this topic Imm: Meningitis Aged Out No longer el igible based on patient's age to complete this topic Sigmoidoscopy Discontinued Procedures Procedure Name Priority Date/Time Associated Diagnosis Comments POC GLUCOSE Routine 06/04/2024 11:[address] CHEST WITH IV CONTRAST Today 06/04/2024 9:14 AM CDT POC GLUCOSE Routine 06/04/2024 8:37 AM CDT TELEMETRY STRIPS 06/04/2024 8:22 AM CDT XR CHEST 1 VIEW AP OR PA* Today 06/04/2024 8:16 AM CDT XR PELVIS AP* Today 06/04/2024 8:16 AM CDT POC GLUCOSE Routine 06/04/2024 6:20 AM CDT PANEL HEPATIC FUNCTION Routine 06/04/2024 5:45 AM CDT PHOSPHORUS Routine 06/04/2024 5:45 AM CDT MAGNESIUM Routine 06/04/2024 5:45 AM CDT PANEL BASIC METABOLIC (BMP) Routine 06/04/2024 5:45 AM CDT PROTHROMBIN (PT) & INR Routine 06/04/2024 5:45 AM CDT PC LAB CBC W/DIFF & PLT Routine 06/04/2024 5:45 AM CDT PC TROPONIN QUANTITATIVE Timed 06/04/2024 5:45 AM CDT TELEMETRY STRIPS 06/04/2024 5:31 AM CDT LACERATION REPAIR Routine 06/04/2024 4:5 1 AM CDT PC TROPONIN QUANTITATIVE Timed 06/04/2024 4:05 AM CDT LACERATION REPAIR Routine 06/04/2024 3:4 8 AM CDT ED US CARDIAC STAT 06/04/2024 12:56 AM CDT PROTHROMBIN (PT) & INR STAT 06/04/2024 12:44 AM CDT PC TROPONIN QUANTITATIVE STAT 06/04/2024 12:44 AM CDT PC LAB CBC W/DIFF & PLT STAT 06/04/2024 12:44 AM CDT PC LAB ELECTROLYTE PANEL STAT 06/04/2024 12:44 AM CDT TC LAB BLOOD DRAW BY VENIPUNCTURE Routine 06/04/2024 12:[address] OUTSIDE READ HEAD/FACIAL BONES Routine 06/04/2024 12:[address] OUTSIDE READ SPINE CERVICAL/NECK Routine 06/04/2024 12:41 AM CDT ED EKG (12-LEAD) Routine 06/04/2024 12:3 2 AM CDT ISACC MAMMOGRAM SCREENING BILAT Routine 11/21/1999 3:54 PM CDT GLYCOSYLATED HGB - A1C Routine 10/02/1999 1:35 PM CDT from Last 3 Months or Most Recently Relevant to Health Maintenance Results * (ABNORMAL) POC GLUCOSE (06/04/2024 11:51 AM CDT) Only the most recent of3 resultswithin the time period is included. POC Glucose 208(H) 70 - 100 mg/dL [facility] Blood 06/04/2024 11:5 1 AM CDT us Lourdes Hastings MD LABORATORY Final Result [facility] [address] [place] [id number], [place] * CT CHEST WITH IV CONTRAST (06/04/2024 9:14 AM CDT) Anatomical Region Laterality Modality Chest Computed Tomogra phy 06/04/2024 9:09 AM CDT Impressions 06/04/2024 9:31 AM CDT IMPRESSION: 1. Pulmonary masses consistent with malignancy. Abnormal mediastinal lymph nodes consistent with metastasis. These findings have been documented on outside imaging but these images are not available for direct review. Outside imaging report from 04/27/2024 also references a pathologic diagnosis of squamous cell cancer in the left upper lobe. 2. Endobronchial component to the left upper lobe lesion is noted. 3. Irregular sclerosis of the sternum could be metastatic disease but would favor a component of renal osteodystrophy. Comparison to prior imaging or attention on follow-up imaging may help differentiate. 4. Groundglass and scattered nodular opacities could signify concurrent infection of uncertain acuity or trajectory. 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 TECHNIQUE: Volumetric helical acquisition of CT images of the chest from the clavicles to the kidneys were acquired after the administration of IV contrast. DOSE: Total DLP = 140.8 mGy.cm. FINDINGS: Chest: Large area of heterogeneously enhancing masslike consolidation in the left upper lobe measuring up to at least 6.5 cm. This extends towards the hilum and there is associated endobronchial component. Similar but smaller nodule in the medial right upper lobe measuring up to 3.2 cm. Scattered areas of additional groundglass and tree-in-bud nodularity, for example peribronchovascular in the right lower lobe, and tree-in-bud mixed consolidative and ground glass opacities in the medial left lower lobe. 13 mm and less nodular on the posterior medial right upper lobe. Moderate apical predominant centrilobular emphysema. No pneumothorax or pleural effusion. Abnormal mediastinal and hilar lymph nodes, largest being a centrally hypodense right hilar node or miguel conglomerate measuring up to at least 2.5 cm. Abnormal prevascular nodes measuring up to 18 x 10 mm. Subcentimeter focal hypoattenuation in the upper posterior left thyroid, otherwise the thyroid is within normal limits. No axillary adenopathy. Heart size mildly enlarged with mild biatrial dilation. Moderate coronary artery calcification. Moderate aortic and great vessel calcification without aneurysm. No central pulmonary embolus. Upper abdomen: Atrophic left kidney. Prominent stool and gaseous distention of colon. No specific acute findings. Bones and soft tissues: Irregular sclerosis in the sternum on a background of mild sclerosis of all visualized bones compatible with renal osteodystrophy. Degenerative changes of both shoulders. 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 TECHNIQUE: Volumetric helical acquisition of CT images of the chest fromthe clavicles to the kidneys were acquired after the administration of IVcontrast. DOSE: Total DLP = 140.8 mGy.cm. FINDINGS: Chest: Large area of heterogeneously enhancing masslike consolidation inthe left upper lobe measuring up to at least 6.5 cm. This extends towardsthe hilum and there is associated endobronchial component. Similar butsmaller nodule in the medial right upper lobe measuring up to 3.2 cm.Scattered areas of additional groundglass and tree-in-bud nodularity, forexample peribronchovascular in the right lower lobe, and tree-in-bud mixedconsolidative and ground glass opacities in the medial left lower lobe. 13mm and less nodular on the posterior medial right upper lobe. Moderate apical predominant centrilobular emphysema. No pneumothorax orpleural effusion. Abnormal mediastinal and hilar lymph nodes, largest being a centrallyhypodense right hilar node or miguel conglomerate measuring up to at least2.5 cm. Abnormal prevascular nodes measuring up to 18 x 10 mm. Subcentimeter focal hypoattenuation in the upper posterior left thyroid,otherwise the thyroid is within normal limits. No axillary adenopathy.Heart size mildly enlarged with mild biatrial dilation. Moderate coronaryartery calcification. Moderate aortic and great vessel calcificationwithout aneurysm. No central pulmonary embolus. Upper abdomen: Atrophic left kidney. Prominent stool and gaseousdistention of colon. No specific acute findings. Bones and soft tissues: Irregular sclerosis in the sternum on a backgroundof mild sclerosis of all visualized bones compatible with renalosteodystrophy. Degenerative changes of both shoulders. IMPRESSION IMPRESSION: 1. Pulmonary masses consistent with malignancy. Abnormal mediastinal lymphnodes consistent with metastasis. These findings have been documented onoutside imaging but these images are not available for direct review.Outside imaging report from 04/27/2024 also references a pathologicdiagnosis of squamous cell cancer in the left upper lobe. 2. Endobronchial component to the left upper lobe lesion is noted. 3. Irregular sclerosis of the sternum could be metastatic disease butwould favor a component of renal osteodystrophy. Comparison to priorimaging or attention on follow-up imaging may help differentiate. 4. Groundglass and scattered nodular opacities could signify concurrentinfection of uncertain acuity or trajectory. Reading Radiologist: Sachin Roy Monika Rodriguez MD RAD CT BODY Final Re sult * TELEMETRY STRIPS (06/04/2024 8:22 AM CDT) Only the most recent of2 resultswithin the time period is included. Narrative 06/04/2024 8:22 AM CDT Ordered by an unspecified provider. us Provider Unknown RAD ECHO Final Result * XR CHEST 1 VIEW AP OR PA* (06/04/2024 8:16 AM CDT) Anatomical Region Laterality Modality Chest Computed Radiogr aphy 06/04/2024 8:19 AM CDT Impressions 06/04/2024 8:21 AM CDT Impression: Infiltrate left upper lobe, pneumonia versus hemorrhage. Reading Radiologist: Daniel Vincent Narrative 06/04/2024 8:21 AM CDT EXAMINATION: XR CHEST 1 VIEW AP OR PA* 06/04/2024 8:17 AM Indication: Traumatic Fall . Comparison: 1999 Findings: Heart size normal. Heavily calcified aortic arch. Dense inferior right hilum which may reflect calcified lymph nodes. There is opacity present throughout the left upper lobe most consistent with pneumonia. In the setting of prior traumatic injury, pulmonary hemorrhage is also a consideration. Negative for pneumothorax or acute osseous abnormalities. Procedure Note Daniel Vincent MD - 06/04/2024 EXAMINATION: XR CHEST 1 VIEW AP OR PA* 06/04/2024 8:17 AM Indication: Traumatic Fall . Comparison: 1999 Findings: Heart size normal. Heavily calcified aortic arch. Dense inferiorright hilum which may reflect calcified lymph nodes. There is opacitypresent throughout the left upper lobe most consistent with pneumonia. Inthe setting of prior traumatic injury, pulmonary hemorrhage is also aconsideration. Negative for pneumothorax or acute osseous abnormalities. IMPRESSION Impression: Infiltrate left upper lobe, pneumonia versus hemorrhage. Reading Radiologist: Daniel Vincent us Monika Rodriguez MD RAD XRAY Final Re sult * XR PELVIS AP* (06/04/2024 8:16 AM CDT) Anatomical Region Laterality Modality Pelvis Computed Radiogr aphy 06/04/2024 8:21 AM CDT Impressions 06/04/2024 8:23 AM CDT Impression: No acute osseous abnormality Reading Radiologist: Daniel Vincent Narrative 06/04/2024 8:23 AM CDT EXAMINATION: XR PELVIS AP* 06/04/2024 8:16 AM Indication: Traumatic Fall . Comparison: 1999 Findings: Standing view of the pelvis. Some bony details obscured in the posterior pelvis. Iliac crests appear intact. SI joints are symmetric. Anterior pelvis unremarkable. Left and right femoral heads and neck are intact. Densely calcified uterine fibroids. Large stool burden. Procedure Note Daniel Vincent MD - 06/04/2024 EXAMINATION: XR PELVIS AP* 06/04/2024 8:16 AM Indication: Traumatic Fall . Comparison: 1999 Findings: Standing view of the pelvis. Some bony details obscured in theposterior pelvis. Iliac crests appear intact. SI joints are symmetric.Anterior pelvis unremarkable. Left and right femoral heads and neck areintact. Densely calcified uterine fibroids. Large stool burden. IMPRESSION Impression: No acute osseous abnormality Reading Radiologist: Vincent, Daniel C Monika Rodriguez MD RAD XRAY Final Re sult * (ABNORMAL) TROP 4H (06/04/2024 5:45 AM CDT) 4H Trop 32(H) <=14 ng/L [facility] 4H Delta Indeterminate Not Significant [facility] Blood 06/04/2024 5:45 AM CDT 06/04/2024 6:41 AM CDT Lourdes Hastings MD LABORATORY Edited Resul t - Final [facility] [address] [place] [id number] * (ABNORMAL) CBC WITH PLTS/AUTO DIFF (06/04/2024 5:45 AM CDT) Only the most recent of2 resultswithin the time period is included. WBC 20.41(H) 4.00 - 10.00 k/cmm [facility] RBC 3.32(L) 3.90 - 5.20 m/cmm [facility] Hgb 9.6(L) 11.5 - 15.7 g/dL [facility] Hematocrit 31.1(L) 34.0 - 45.0 % [facility] MCV 93.7 80.0 - 100.0 fL [facility] MCH 28.9 25.0 - 32.0 pg [facility] MCHC 30.9(L) 31.0 - 36.0 g/dL [facility] RDW 18.0(H) 11.5 - 14.5 % [facility] Plt 289 150 - 400 k/cmm [facility] MPV 10.1 6.5 - 12.5 fL [facility] Automated Abs Neutrophil 18.09(H) 1.70 - 6.50 k/cmm [facility] Comment:Preliminary ANC, Fin al Result to Follow Abs Immature Granulocyte 0.16(H) 0.00 - 0.09 k/cmm [facility] Comment:The Immature Granulo cyte Absolute count contains metamyelocytes and myelocytes. Abs Neutrophil 18.09(H) 1.70 - 6.50 k/cmm [facility] Abs Lymphocyte 1.01 0.80 - 4.00 k/cmm [facility] Abs Monocyte 1.04(H) 0.20 - 1.00 k/cmm [facility] Abs Eosinophil 0.06 0.00 - 0.60 k/cmm [facility] Abs Basophil 0.05 0.00 - 0.20 k/cmm [facility] Blood 06/04/2024 5:45 AM CDT 06/04/2024 6:42 AM CDT Lourdes Hastings MD LABORATORY Edited Resul t - Final Performing Organization Address [facility] Co de Phone Number [address] [address] * PROTHROMBIN (PT) & INR (06/04/2024 5:45 AM CDT) Only the most recent of2 resultswithin the time period is included. PT 11.9 9.0 - 12.5 sec [facility] INR 1.0 0.8 - 1.1 [facility] Comment: Warfarin Therapeutic Range: Standard Intensity: 2.0 - 3.0 High Intensity: 2.5 - 3.5 Blood 06/04/2024 5:45 AM CDT 06/04/2024 6:41 AM CDT Lourdes Hastings MD LABORATORY Final Result Performing Organization Address [facility] Co de Phone Number [address] [address] * (ABNORMAL) PHOSPHORUS (06/04/2024 5:45 AM CDT) Phosphorus 5.0(H) 2.5 - 4.5 mg/dL [facility] Blood 06/04/2024 5:45 AM CDT 06/04/2024 6:40 AM CDT Lourdes Hastings MD LABORATORY Final Result Performing Organization Address City/[facility] Co de Phone Number [facility] [address] [address] * (ABNORMAL) PANEL BASIC METABOLIC (BMP) (06/04/2024 5:45 AM CDT) Sodium 131(L) 135 - 148 mmol/L [facility] Potassium 4.9 3.5 - 5.3 mmol/L [facility] Chloride 90(L) 92 - 108 mmol/L [facility] CO2 26 22 - 30 mmol/L [facility] Glucose 304(H) 70 - 100 mg/dL [facility] BUN 42(H) 8 - 23 mg/dL [facility] Creatinine 3.62(H) 0.50 - 1.00 mg/dL [facility] Calcium 9.2 8.8 - 10.2 mg/dL [facility] AnGap 15 8 - 16 mmol/L [facility] eGFR (2020 CKD-EPI) 12(L) >=60 ml/min/1.7 3m2 [facility] Comment: The estimated glomerular filtration rate (eGFR) was calculated using the CKD-EPI 2020 creatinine equation, which does not include race as a factor. This equation is validated in individuals 18 years of age and older, and eGFR is normalized to a body surface area of 1.73m^2. Blood 06/04/2024 5:45 AM CDT 06/04/2024 6:40 AM CDT Lourdes Hastings MD LABORATORY Final Result [facility] [address] [id number] * MAGNESIUM (06/04/2024 5:45 AM CDT) Magnesium 2.1 1.6 - 2.4 mg/dL [facility] Blood 06/04/2024 5:45 AM CDT 06/04/2024 6:40 AM CDT Lourdes Hastings MD LABORATORY Final Result Performing Organization Address City/[facility]/ZIP Co de Phone Number [facility] [address] [address] * (ABNORMAL) PANEL HEPATIC FUNCTION (06/04/2024 5:45 AM CDT) Total Protein 8.1 6.4 - 8.3 g/dL [facility] Albumin 3.3(L) 3.8 - 5.1 g/dL [facility] Bili Total 0.2 <=1.2 mg/dL [facility] Bili Direct 0.1 <=0.3 mg/dL [facility] Alk Phos 141(H) 35 - 104 IU/L [facility] Comment:No reference range e stablished for patients <18 years old. ALT (SGPT) 19 <=33 IU/L [facility] AST(SGOT) 30 5 - 40 IU/L [facility] Blood 06/04/2024 5:45 AM CDT 06/04/2024 6:40 AM CDT us Lourdes Hastings MD LABORATORY Final Result [facility] [address] [address] * Laceration Repair (06/04/2024 4:51 AM CDT) Narrative Lourdes Hastings MD - 06/04/2024 4:51 AM CDT Lourdes Hastings MD 06/13/2024 1:18 PM Laceration Repair Performed by: Darline Ruff MD Authorized by: Lourdes Hastings MD Consent: Consent obtained: Verbal Consent given by: Patient Risks discussed: Infection, pain, need for additional repair, poor wound healing, poor cosmetic result and retained foreign body [place] protocol: Procedure explained and questions answered to patient or proxy's satisfaction: yes Test results available: yes Imaging studies available: yes Site/side marked: yes Immediately prior to procedure, a time out was called: yes Patient identity confirmed: Verbally with patient Anesthesia: Anesthesia method: Local infiltration and nerve block Block location: Infraorbital Block needle gauge: 27 G Block anesthetic: Lidocaine 1% w/o epi Block injection procedure: Anatomic landmarks identified, anatomic landmarks palpated, introduced needle, negative aspiration for blood and incremental injection Block outcome: Anesthesia achieved Laceration details: Location: Face Face location: L lower eyelid Length (cm): 2 Depth (mm): 3 Pre-procedure details: Preparation: Patient was prepped and draped in usual sterile fashion Exploration: Hemostasis achieved with: Direct pressure Wound exploration: wound explored through full range of motion Wound extent: fascia violated Contaminated: yes Treatment: Amount of cleaning: Standard Irrigation solution: Tap water Irrigation volume: 300 Irrigation method: Syringe Layers/structures repaired: Deep dermal/superficial fascia Deep dermal/superficial fascia: Suture size: 5-0 Suture material: Vicryl Suture technique: Simple interrupted Number of sutures: 2 Skin repair: Repair method: Sutures Suture size: 5-0 Suture material: Nylon Suture technique: Simple interrupted Number of sutures: 8 Approximation: Approximation: Close Repair type: Repair type: Complex Post-procedure details: Dressing: Antibiotic ointment and adhesive bandage Procedure completion: Tolerated well, no immediate complications Comments: Extremely complex lower lid repair. Did not involve lid margin or canalicular system or lacrimal duct. Was linear along lower lid tissue. There was a small facial defect with a small amount of fat protruding through. This was closed with 2 absorbable sutures and came together well. The overlying skin laceration was complex, stellate, and crushed from her trauma. Upon completion of repair, she was able to open and close her eye completely without difficulty. Lourdes Hastings MD PROCEDURES Final Result * (ABNORMAL) TROP 2H (06/04/2024 4:05 AM CDT) 2H Trop 32(H) <=14 ng/L [facility] 2H Delta Not Significant Not Significant [facility] Blood 06/04/2024 4:05 AM CDT 06/04/2024 4:10 AM CDT Lourdes Hastings MD LABORATORY Edited Resul t - Final [facility] [address] [id number] * Laceration Repair (06/04/2024 3:48 AM CDT) Narrative Lourdes Hastings MD - 06/04/2024 3:48 AM CDT Lourdes Hastings MD 06/13/2024 1:18 PM Laceration Repair Performed by: Darline Ruff MD Authorized by: Lourdes Hastings MD Consent: Consent obtained: Verbal Consent given by: Patient Risks discussed: Infection, pain, need for additional repair, poor wound healing, poor cosmetic result and retained foreign body [place] protocol: Procedure explained and questions answered to patient or proxy's satisfaction: yes Test results available: yes Imaging studies available: yes Site/side marked: yes Immediately prior to procedure, a time out was called: yes Patient identity confirmed: Verbally with patient Anesthesia: Anesthesia method: Local infiltration and nerve block Local anesthetic: Lidocaine 1% w/o epi Block location: Suprarobital block Block needle gauge: 27 G Block anesthetic: Lidocaine 1% w/o epi Block injection procedure: Anatomic landmarks identified, anatomic landmarks palpated, introduced needle, negative aspiration for blood and incremental injection Block outcome: Anesthesia achieved Laceration details: Location: Face Face location: L eyebrow Length (cm): 4 Depth (mm): 8 Pre-procedure details: Preparation: Patient was prepped and draped in usual sterile fashion Exploration: Hemostasis achieved with: Direct pressure Wound exploration: wound explored through full range of motion Wound extent: fascia violated and muscle damage Wound extent: no underlying fracture noted Contaminated: yes Treatment: Amount of cleaning: Standard Irrigation solution: Tap water Irrigation volume: 400 Irrigation method: Syringe Layers/structures repaired: Deep subcutaneous Deep subcutaneous: Suture size: 4-0 Suture material: Vicryl Suture technique: Horizontal mattress Number of sutures: 2 Skin repair: Repair method: Sutures Suture size: 5-0 Suture material: Nylon Suture technique: Simple interrupted Number of sutures: 3 Approximation: Approximation: Close Repair type: Repair type: Complex Post-procedure details: Dressing: Antibiotic ointment and adhesive bandage Procedure completion: Tolerated well, no immediate complications Comments: Complex facial trauma laceration repair. Laceration along left eyebrow. Deep and stellate, non-linear. Difficult to approximate wound edges linearly, and this was discussed with the patient that there will likely be asymmetry and scarring. us Lourdes Hastings MD PROCEDURES Final Result * (ABNORMAL) ED US CARDIAC (06/04/2024 12:56 AM CDT) Anatomical Region Laterality Modality Ultrasound Narrative 06/04/2024 4:43 PM CDT ED Cardiac Ultrasound Body Areas Imaged: Heart, Chest Wall/Lungs, and Inferior Vena Cava Indications: Syncope/Near Syncope Window: Subxiphoid, Parasternal Short [place], Parasternal Long [place], Apical 4-Chamber, IVC, and Bilateral Lungs Findings: The left ventricular ejection fraction appears: Hyperdynamic No pericardial effusion identified No significant right ventricular dilation appreciated Lung sliding present bilaterally, A-line predominance The IVC diameter appears Flat Impression: The left ventricular ejection fraction appears: Hyperdynamic No pericardial effusion identified No significant right ventricular dilation appreciated A-Line predominance consistent with normal lung aeration Findings consistent with hypovolemia Darline Ruff MD, 06/04/2024 1:38 AM ED Attending Ultrasound Note: I have personally reviewed the image(s) and initial interpretation, and I agree with the findings as documented. Jose F Riojas MD, 06/04/2024 4:42 PM Lourdes Hastings MD RAD ED ULT Final Result * (ABNORMAL) HS TROPONIN (06/04/2024 12:44 AM CDT) HS Troponin I 31(H) <=14 ng/L [facility] Blood 06/04/2024 12:4 4 AM CDT 06/04/2024 12:47 AM CDT Narrative [facility] - 06/04/2024 1:19 AM CDT First Occurrence of the Troponin order is to be drawn Stat by Nursing staff on the unit. us Lourdes Hastings MD LABORATORY Final Result [facility] [address] [address] * (ABNORMAL) ED CHEMISTRY LABS(NA,K,CL,CO2,GLU,CREAT,CA-IONIZED,ANION GAP) (06/04/2024 12:44 AM CDT) Sodium 134(L) 135 - 148 mmol/L [facility] Chloride 102 92 - 108 mmol/L [facility] AnGap 9 8 - 16 mmol/L [facility] Glucose 134(H) 70 - 100 mg/dL [facility] ICA, Actual 4.13(L) 4.40 - 5.20 mg/dL [facility] ICA, pH Corrected 4.29(L) 4.40 - 5.20 mg/dL [facility] Creatinine 3.11(H) 0.50 - 1.00 mg/dL [facility] BICARB 23 22 - 26 mEq/L [facility] eGFR (2020 CKD-EPI) 15(L) >=60 ml/min/1.7 3m2 [facility] Comment: The estimated glomerular filtration rate (eGFR) was calculated using the CKD-EPI 2020 creatinine equation, which does not include race as a factor. This equation is validated in individuals 18 years of age and older, and eGFR is normalized to a body surface area of 1.73m^2. Potassium 4.7 3.5 - 5.3 mmol/L [facility] Blood 06/04/2024 12:4 4 AM CDT 06/04/2024 12:48 AM CDT Lourdes Hastings MD LABORATORY Final Result Performing Organization Address City/[facility]/ZIP Co de Phone Number [facility] [address] [address] * EXTRA TUBE - SST (06/04/2024 12:43 AM CDT) SST TUBE Stored [facility] Comment:SST tubes (Serum Sep arator) are stored in the lab for 3 days from the collection date. Blood 06/04/2024 12:4 3 AM CDT 06/04/2024 12:50 AM CDT Lourdes Hastings MD LABORATORY Final Result Performing Organization Address City/[facility] Co de Phone Number [facility] [address] [address] * CT OUTSIDE READ HEAD/FACIAL BONES (06/04/2024 12:41 AM CDT) Anatomical Region Laterality Modality Skull Computed Tomogra phy 06/04/2024 7:36 AM CDT Impressions 06/04/2024 8:25 AM CDT Impression: 1. No acute intracranial pathology suspected. 2. Left periorbital hematoma without evidence for underlying facial bone fracture. Subtle punctate hyperdensities in the left orbit preseptal soft tissues and along the anterior left globe, nonspecific but may represent conjunctival foreign bodies. 3. Suspected sequelae of chronic small vessel ischemic disease. I have personally reviewed the image(s) and initial interpretation, and I agree with the findings as documented by the resident/fellow. Reading Radiologist: Abdullahi Solano Resident: Vicente Emerson 06/04/2024 8:25 AM CDT Indication: Patient transferred from [facility] due to Trauma. No initial report accompanied the patient and/or Dr. LOURDES HASTINGS requested an interpretation by me. Technique: CT scan of the head and facial bones done on without without IV contrast. 3 mm axial and coronal reconstructions reviewed in soft tissue and bone windows, per the local institution's scanning protocols, which may differ from the [facility] trauma protocols. Findings: There is no evidence of intracranial hemorrhage, mass effect, midline shift or abnormal extraaxial fluid collection. The ventricles do not appear enlarged out of proportion to the cerebral sulci. Rubin-white differentiation is intact throughout both cerebral hemispheres. Confluent periventricular and deep subcortical white matter hypoattenuating changes. Left periorbital soft tissue swelling with hematoma overlying the left frontal scalp/forehead. There is no evident fracture of the facial bones. The cribriform plate appears intact.Alignment of the facial bones appears normal. Subtle punctate hyperdensities in the left orbit preseptal tissues and along the anterior left globe , nonspecific. There is no hematoma, soft tissue mass or gas visualized within the orbits. Edentulous. The visualized portions of the paranasal sinuses are clear. Procedure Note Abdullahi Solano MD - 06/04/2024 Indication: Patient transferred from [facility] due to Trauma.No initial report accompanied the patient and/or Dr. LOURDES HASTINGSrequested an interpretation by me. Technique: CT scan of the head and facial bones done on without withoutIV contrast. 3 mm axial and coronal reconstructions reviewed in softtissue and bone windows, per the local institution's scanning protocols,which may differ from the [facility] trauma protocols. Findings: There is no evidence of intracranial hemorrhage, mass effect,midline shift or abnormal extraaxial fluid collection. The ventricles donot appear enlarged out of proportion to the cerebral sulci. Rubin-whitedifferentiation is intact throughout both cerebral hemispheres. Confluentperiventricular and deep subcortical white matter hypoattenuatingchanges. Left periorbital soft tissue swelling with hematoma overlying the leftfrontal scalp/forehead. There is no evident fracture of the facial bones.The cribriform plate appears intact.Alignment of the facial bones appearsnormal. Subtle punctate hyperdensities in the left orbit preseptal tissuesand along the anterior left globe , nonspecific. There is no hematoma, soft tissue mass or gas visualized within theorbits. Edentulous. The visualized portions of the paranasal sinuses areclear. IMPRESSION Impression: 1. No acute intracranial pathology suspected. 2. Left periorbital hematoma without evidence for underlying facial bonefracture. Subtle punctate hyperdensities in the left orbit preseptal softtissues and along the anterior left globe, nonspecific but may representconjunctival foreign bodies. 3. Suspected sequelae of chronic small vessel ischemic disease. I have personally reviewed the image(s) and initial interpretation, and Iagree with the findings as documented by the resident/fellow. Reading Radiologist: Abdullahi Solano Resident: Vicente Emerson Lourdes Hastings MD RAD CT NEURO Final Result * CT OUTSIDE READ SPINE CERVICAL/NECK (06/04/2024 12:41 AM CDT) Anatomical Region Laterality Modality Cervical Spine Computed Tomogra phy 06/04/2024 7:25 AM CDT Impressions 06/04/2024 7:56 AM CDT Impression: 1. No acute fracture or traumatic subluxation of the cervical spine. 2. Mild cervical spondylosis without significant spinal canal or neural foraminal narrowing. 3. Mild biapical emphysema. Partially visualized smooth interlobular septal thickening of the left lung apex, as can be seen with interstitial pulmonary edema. In the setting of known left upper lobe mass, cannot definitively exclude neoplastic involvement. I have personally reviewed the image(s) and initial interpretation, and I agree with the findings as documented by the resident/fellow. Reading Radiologist: Abdullahi Solano Resident: Vicente Emerson Narrative 06/04/2024 7:56 AM CDT Indication: Patient transferred from [facility] due to Trauma. No initial report accompanied the patient and/or Dr. LOURDES HASTINGS requested an interpretation by me. Technique: CT scan of the cervical spine done on 06/03/2024 without IV contrast. 3 mm axial, sagittal and coronal reconstructions reviewed in soft tissue and bone windows, per the local institution's scanning protocols, which may differ from the [facility] trauma protocols. Findings: The lateral masses of C1 appear normally aligned on C2. Joint space narrowing at the atlantodental articulation with subcortical cystic formation in the dens. The normal cervical lordotic curvature is preserved. Alignment of the cervical spine appears intact. There is no evidence of fracture or significant prevertebral soft tissue swelling. There is no significant disc space narrowing. No significant spinal canal or neural foraminal stenosis. No abnormality of the visualized paraspinous tissues is noted. Mild centrilobular emphysema of the visualized lung apices. Smooth interlobular septal thickening and groundglass opacities of the visualized left upper lobe. Atherosclerotic calcifications affecting the right greater than left carotid arteries. Procedure Note Abdullahi Solano MD - 06/04/2024 Indication: Patient transferred from [facility] due to Trauma.No initial report accompanied the patient and/or Dr. LOURDES HASTINGSrequested an interpretation by me. Technique: CT scan of the cervical spine done on 06/03/2024 without IVcontrast. 3 mm axial, sagittal and coronal reconstructions reviewed insoft tissue and bone windows, per the local institution's scanningprotocols, which may differ from the [facility] trauma protocols. Findings: The lateral masses of C1 appear normally aligned on C2. Jointspace narrowing at the atlantodental articulation with subcortical cysticformation in the dens. The normal cervical lordotic curvature ispreserved. Alignment of the cervical spine appears intact. There is noevidence of fracture or significant prevertebral soft tissue swelling.There is no significant disc space narrowing. No significant spinal canalor neural foraminal stenosis. No abnormality of the visualized paraspinoustissues is noted. Mild centrilobular emphysema of the visualized lung apices. Smoothinterlobular septal thickening and groundglass opacities of the visualizedleft upper lobe. Atherosclerotic calcifications affecting the rightgreater than left carotid arteries. IMPRESSION Impression: 1. No acute fracture or traumatic subluxation of the cervical spine. 2. Mild cervical spondylosis without significant spinal canal or neuralforaminal narrowing. 3. Mild biapical emphysema. Partially visualized smooth interlobularseptal thickening of the left lung apex, as can be seen with interstitialpulmonary edema. In the setting of known left upper lobe mass, cannotdefinitively exclude neoplastic involvement. I have personally reviewed the image(s) and initial interpretation, and Iagree with the findings as documented by the resident/fellow. Reading Radiologist: Abdullahi Solano Reading Resident: Vicente Emerson Lourdes Hastings MD RAD CT NEURO Final Result * ED EKG (12-LEAD) (06/04/2024 12:32 AM CDT) 06/04/2024 12:3 2 AM CDT Impressions [facility] CVIS EKG ORDERS - 06/04/2024 12:32 AM CDT SINUS RHYTHM POSSIBLE RIGHT ATRIAL ENLARGEMENT [0.25mV P-WAVE] BORDERLINE ECG P-R Interval 177 ms QRS Interval 81 ms QT Interval 396 ms QTC Interval 412 ms P [place] 87 QRS [place] 70 T Wave [place] 95 Narrative Procedure Note Felipe Douglass III, MD - 06/04/2024 IMPRESSION SINUS RHYTHM POSSIBLE RIGHT ATRIAL ENLARGEMENT [0.25mV P-WAVE] BORDERLINE ECG P-R Interval 177 ms QRS Interval 81 ms QT Interval 396 ms QTC Interval 412 ms P [place] 87 QRS [place] 70 T Wave [place] 95 us Lourdes Hastings MD EKG Final Result [facility] CVIS EKG ORDERS * [facility] MAMMOGRAM SCREENING BILAT (11/21/1999 3:54 PM CDT) Anatomical Region Laterality Modality Breast Mammography 11/21/1999 3:54 PM CDT Impressions 11/23/1999 12:56 PM CDT : No evidence of malignancy is detected. The accuracy of mammography for detection of malignancy is somewhat reduced in breasts of this density as lesions might be obscured. In 10 - 15% of cases mammography will not detect a breast cancer. Clinical and physical findings are important in each case. The patient has been notified by letter of the mammography result. ASI END: RELEASE RESULTS: (Y) END RESULT: IMPRESSION Narrative 11/23/1999 12:56 PM CDT Final Report EXAM: MAMMOGRAM SCREENING BILAT - 11/21/1999 03:54PM SUSPECTED PATHOLOGY: SYMPTOMS AND REASONS: WORKING DIAGNOSIS: E RESULT FOR: Screening bilateral mammogram RADIOLOGIST'S ASSESSMENT: Negative with benign findings. RADIOLOGIST RECOMMENDATION: Routine rescreen in one year. PROBABILITY INDEX FOR 2.0Low !___!___!___!___! High MALIGNANCY 1 2 3 4 5 FINDINGS: The examination is compared to previous studies. The breast tissue remains dense bilaterally. No significant interval change since the previous studies is detected. No mass, architectural distortion or skin thickening is seen. No suspicious microcalcifications are identified. Procedure Note Keri Bandar J - 08/28/2005 Final Report EXAM: MAMMOGRAM SCREENING BILAT - 11/21/1999 03:54PM SUSPECTED PATHOLOGY: SYMPTOMS AND REASONS: WORKING DIAGNOSIS: E RESULT FOR: Screening bilateral mammogram RADIOLOGIST'S ASSESSMENT: Negative with benign findings. RADIOLOGIST RECOMMENDATION: Routine rescreen in one year. PROBABILITY INDEX FOR 2.0Low !___!___!___!___! High MALIGNANCY 1 2 3 4 5 FINDINGS: The examination is compared to previous studies. The breast tissue remains dense bilaterally. No significant interval change since the previous studies is detected. No mass, architectural distortion or skin thickening is seen. No suspicious microcalcifications are identified. IMPRESSION: No evidence of malignancy is detected. The accuracy of mammography for detection of malignancy is somewhat reduced in breasts of this density as lesions might be obscured. In 10 - 15% of cases mammography will not detect a breast cancer. Clinical and physical findings are important in each case. The patient has been notified by letter of the mammography result. ASI END: RELEASE RESULTS: (Y) END RESULT: IMPRESSION Cal Jimenes MD RAD MAMMO Final Result from Last 3 Months or Most Recently Relevant to Health Maintenance Insurance MEDICARE [facility] Advance Directives For more information, please contact: [phone] * Full Code (Latest Code Status on File) Date Activated Date Inactivated Comments 06/04/2024 4:17 AM 06/04/2024 6:54 PM Question Answer Comments Does the Patient have prefer ences regarding life sustaining measures (these options only apply when the patient has a pulse): Yes Patient will accept intubation for respiratory d eterioration: Unaddressed Patient will accept BiPAP for respiratory deteri oration: Unaddressed Patient will accept vasopressors for hypotension : Unaddressed Patient will accept cardioversion for unstable r hythm: Unaddressed Discussed Code Status With Whom? Not discussed
--- NOTE | 2024-06-23 16:39 | CRLHL7_ITS ---
For Patients: As a result of the Century Cures Act, medical imaging exams and procedure reports are released immediately into your electronic medical record. You may view this report before your referring provider. If you have questions, please contact your health care provider. Indication: Hypoxia Technique: Single view of the chest Comparison: Chest CT performed 05/25/2024 Findings/Impression: Mass lesions in the left upper lobe and right perihilar space again noted. Extensive interstitial markings are favored to be progressed compared to prior examinations and could represent pulmonary edema, atypical/viral infection, or lymphangitic spread of disease. Dictated by Soren Tellez MD @ 06/23/2024 6:02:05 PM (Electronically Signed)
--- OUTSIDE RECORDS SUMMARY | 2024-06-23 16:39 | XMS_ITS | Clinical Summary ---
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 [facility]RIV[facility] [place] [address] * PHOSPHORUS (06/01/2024 7:15 AM CDT) Only the most recent of2 resultswithin the time period is included. PHOSPHORUS 3.8 2.5 - 4.5 mg/dL 06/01/2024 7:51 AM CDT [facility] Blood BLOOD SPECIMEN / Unknown Butterfly / Unknown 06/01/2024 7:15 AM CDT 06/01/2024 7:27 AM CDT us Maximilian Rodríguez MD CHEMISTRY Final Result [facility] INTERNAL ZIP [address] [email or web address] [address] * (ABNORMAL) HEPATIC FUNCTION PANEL (06/01/2024 7:15 AM CDT) ALBUMIN 3.0(L) 4.0 - 4.9 g/dL 06/01/2024 7:51 AM CDT [facility] PROTEIN,TOTAL 6.7 6.0 - 8.0 g/dL 06/01/2024 7:51 AM [facility] BILIRUBIN,TOTAL 0.3 0.0 - 1.2 mg/dL 06/01/2024 7:51 AM [facility] BILIRUBIN,DIRECT <0.1 0.0 - 0.2 mg/dL 06/01/2024 7:51 AM [facility] BILIRUBIN,INDIRE CT 06/01/2024 7:51 AM [facility] Comment:Unable to calculate, Direct Bili <0.1 ALK PHOSPHATASE 135(H) 35 - 104 IU/L 06/01/2024 7:51 AM [facility] ALT (SGPT) 19 10 - 35 IU/L 06/01/2024 7:51 AM [facility] AST (SGOT) 33 10 - 35 IU/L 06/01/2024 7:51 AM [facility] Blood BLOOD SPECIMEN / Unknown Butterfly / Unknown 06/01/2024 7:15 AM CDT 06/01/2024 7:27 AM CDT us Kirti Ascencio MD CHEMISTRY Final Resul t [facility] INTERNAL [facility] [address] [address] [place] [address] * (ABNORMAL) HAPTOGLOBIN (06/01/2024 7:14 AM CDT) Haptoglobin 327(H) 30 - 200 mg/dL 06/01/2024 10:07 AM CDT [facility] Blood BLOOD SPECIMEN / Unknown Butterfly / Unknown 06/01/2024 7:14 AM CDT 06/01/2024 7:27 AM CDT Kirti Ascencio MD CHEMISTRY Final Resul t [facility] [address] [place] [address], * (ABNORMAL) FERRITIN (06/01/2024 7:14 AM CDT) FERRITIN 3,586.0(H) 15.0 - 150.0 ng/mL 06/01/2024 10:30 AM CDT [facility] Blood BLOOD SPECIMEN / Unknown Butterfly / Unknown 06/01/2024 7:14 AM CDT 06/01/2024 7:27 AM CDT Kirti Ascencio MD CHEMISTRY Final Resul t Performing Organization Address [facility] de Phone Number [facility] [address] [place] [address], [place] * VITAMIN B12 (06/01/2024 7:14 AM CDT) Pathologist [facility] VITAMIN B12 996 232 - 1,245 pg/mL 06/01/2024 10:06 AM CDT [facility] Blood BLOOD SPECIMEN / Unknown Butterfly / Unknown 06/01/2024 7:14 AM CDT 06/01/2024 7:27 AM CDT Narrative [facility] - 06/01/2024 10:06 AM CDT Biotin supplements may cause clinically significant interference for this test assay. If interference is suspected, it is strongly recommended that biotin is discontinued for at least one week prior to retesting. Kirti Ascencio MD CHEMISTRY Final Resul t Performing Organization Address [facility] Co de Phone Number [facility] [address] [place] [address], [place] * SCAN-CARDIAC STRIP (06/01/2024 6:07 AM CDT) Scanner OTHER Final Result * TRANSFUSE RBC (NURSE COMMUNICATION ORDER) (05/31/2024 12:31 PM CDT) Blood BLOOD SPECIMEN / Unknown Guillermo Zamorano MD NURSING BLOOD BANK Final Resu lt * FOLIC ACID (05/31/2024 11:40 AM CDT) Pathologist [facility] FOLIC ACID 21.0 4.6 - 34.8 ng/mL 05/31/2024 7:59 PM CDT [facility] Blood BLOOD SPECIMEN / Unknown Line/Port / Unknown 05/31/2024 11:40 AM CDT 05/31/2024 11:42 AM CDT Narrative [facility] - 05/31/2024 7:59 PM CDT Biotin supplements may cause clinically significant interference for this test assay. If interference is suspected, it is strongly recommended that biotin is discontinued for at least one week prior to retesting. us Kirti Ascencio MD CHEMISTRY Final Resul t Performing Organization Address City/[facility]/ZIP Co de Phone Number [facility] [address] [place] [address], [place] * SCAN-CARDIAC STRIP (05/31/2024 10:18 AM CDT) us Scanner OTHER Edited Result - Final * EKG 12 Lead (05/31/2024 9:06 AM CDT) [facility] Interpretation Normal sinus rhythm Normal ECG No previous ECGs available BEYOND NOW Ventricular Rate 76 BPM BEYOND NOW Atrial Rate 76 BPM BEYOND NOW P-R Interval 168 ms BEYOND NOW QRS Duration 78 ms BEYOND NOW QT 382 ms BEYOND NOW QTc 429 ms BEYOND NOW P Clayton 69 degrees BEYOND NOW R Clayton -14 degrees BEYOND NOW T Clayton 86 degrees BEYOND NOW 05/31/2024 9:06 AM CDT 06/01/2024 8:45 AM CDT us Guillermo Zamorano MD EKG ORD Final Result Performing Organization Address City/[facility]/ZIP Co de Phone Number [facility] NOW [place], [place] * RBC W TYPE AND SCREEN (05/31/2024 8:41 AM CDT) [facility] ABORH O Rh Positive 05/31/2024 9:21 AM CDT [facility] BLOOD BANK ANTIBODY SCREEN Negative Negative 05/31/2024 9:21 AM CDT [facility] BLOOD BANK SPECIMEN EXPIRATION DATE/TIME 06/03/24 23:59 05/31/2024 9:21 AM CDT [facility] BLOOD BANK Blood BLOOD SPECIMEN / Unknown Venipuncture / Unknown 05/31/2024 8:41 AM CDT 05/31/2024 8:46 AM CDT us Guillermo Zamorano MD BLOOD BANK Final Result [facility] BLOOD BANK [address] [place] [address] * RED BLOOD CELLS EA UNIT (05/31/2024 8:41 AM CDT) CROSSMATCH Compatible Compatible [facility] BLOOD BANK PRODUCT BLOOD TYPE O Rh Positive [facility] BLOOD BANK PRODUCT ID NUMBER [id number] [facility] BLOOD BANK PRODUCT STATUS Transfused [facility] BLOOD BANK PRODUCT DESCRIPTION RBC -1 LR [facility] BLOOD BANK PRODUCT CODE [id number] [facility] BLOOD BANK ISSUE DATE/TIME 05/31/24 11:29 [facility] BLOOD BANK us Guillermo Zamorano MD BLOOD BANK Edited Result - Final [facility] BLOOD BANK [address] [facility] [place] [email or web address] [address] * CT NECK SOFT TISSUE W (05/30/2024 [...] EXAM: CT NECK SOFT TISSUE W LOCATION: [facility] DATE: 05/30/2024 INDICATION: Neck mass, nonpulsatile [...] and subcutaneous soft tissues. Normal oral cavity, shearer helper spaces, and floor of mouth structures. LYMPH [...] EXAM: CT NECK SOFT TISSUE W LOCATION: [facility] DATE: 05/30/2024 INDICATION: Neck mass, nonpulsatile [...] spaceand subcutaneous soft tissues. Normal oral cavity, shearer helper spaces, andfloor of mouth structures. LYMPH NODES: [...] (ABNORMAL) RENAL FUNCTION PANEL (05/30/2024 8:07 AM CDT) Only the most recent of4 resultswithin the time period is included. SODIUM 132(L) 136 - 145 mmol/L 05/30/2024 8:42 AM T [facility] POTASSIUM 4.5 3.5 - 5.1 mmol/L 05/30/2024 8:42 AM [facility] CHLORIDE 95(L) 98 - 107 mmol/L 05/30/2024 8:42 AM [facility] CO2,TOTAL 29 22 - 29 mmol/L 05/30/2024 8:42 AM [facility] ANION GAP 8 5 - 18 05/30/2024 8:42 AM [facility] GLUCOSE 58(L) 70 - 99 mg/dL 05/30/2024 8:42 AM [facility] CALCIUM 8.6(L) 8.8 - 10.4 mg/dL 05/30/2024 8:42 AM [facility] Comment: Reference ranges for this test were updated on 12/17/2023 to reflect our healthy population more accurately. Reference range changes are not retroactively applied to results, but previous results using the same methodology can be interpreted in the context of the new reference range. BUN 29(H) 8 - 23 mg/dL 05/30/2024 8:42 AM [facility] CREATININE 2.95(H) 0.50 - 0.90 mg/dL 05/30/2024 8:42 AM [facility] BUN/CREAT RATIO 10 10 - 20 8:42 AM [facility] eGFR 16(L) >90 mL/min/1. 73m2 05/30/2024 8:42 AM [facility] Comment:As of 2021, eG FR is calculated by the CKD-EPI creatinine equation without race adjustment. eGFR can be influenced by muscle mass, exercise, and diet. The reported eGFR is an estimation only and is only applicable if the renal function is stable. PHOSPHORUS 2.0(L) 2.5 - 4.5 mg/dL 05/30/2024 8:42 AM [facility] ALBUMIN 2.9(L) 4.0 - 4.9 g/dL 05/30/2024 8:42 AM [facility] Blood BLOOD SPECIMEN / Unknown Venipuncture / Unknown 05/30/2024 8:07 AM CDT 05/30/2024 8:14 AM T us Juani Watts MD CHEMISTRY Final Resu lt [facility] INTERNAL ZIP [address] [address] [place] [address] * XR CHEST 1 VIEW PORTABLE (05/29/2024 [...] EXAM: XR CHEST 1 VIEW PORTABLE LOCATION: [facility] DATE: 05/29/2024 INDICATION: Line placement COMPARISON: 05/27/2023. Procedure Note Hellen Arias MD - 05/29/2024 For Patients: As a result of the Cures Act, medical imagingexams and procedure reports are released immediately into your electronicmedical record. You may view this report before your referring provider.If you have questions, please contact your health care provider. EXAM: XR CHEST 1 VIEW PORTABLE LOCATION: [facility] DATE: 05/29/2024 INDICATION: Line placement COMPARISON: 05/27/2023. IMPRESSION: Right PICC tip in the right brachiocephalic vein. Increased left upperlobe consolidation. Decreased right perihilar consolidation. No pleuraleffusion or pneumothorax. Normal heart size. Aortic calcifications. us Miguelito [facility] Final Result * SCAN-CARDIAC STRIP [...] Result * VANCOMYCIN (05/27/2024 5:37 AM CDT) [facility] VANCOMYCIN 11.8 ug/mL 05/27/2024 7:54 AM CDT [facility] Comment:No Reference Range D efined. DATE OF LAST DOSE,RANDOM Not Given 05/27/2024 7:54 AM CDT [facility] TIME OF LAST DOSE,RANDOM Not Given 05/27/2024 7:54 AM CDT [facility] Blood BLOOD SPECIMEN / Unknown Non-Lab Venipuncture / Unknown 05/27/2024 5:37 AM CDT 05/27/2024 5:43 AM CDT us Miguelito GUNN CHEMISTRY Final Result [facility] INTERNAL ZIP [address] [place] [address] * SCAN-CARDIAC STRIP (05/27/2024 4:00 AM CDT) [...] provider. EXAM: MR HEAD BRAIN WO LOCATION: [facility] DATE: 05/26/2024 INDICATION: >AMS Mental status change, [...] provider. EXAM: MR HEAD BRAIN WO LOCATION: [facility] DATE: 05/26/2024 INDICATION: >AMS Mental status change, [...] limited examination without acute intracranial abnormality. Eduardo Agudelojaya DO MR Final Resul t * INSERT PICC LINE (05/26/2024 6:58 AM CDT) Narrative Yenni Mckenzie RN - 05/26/2024 6:58 AM CDT Yenni Mckenzie RN 05/26/2024 7:21 AM PICC Line Insertion Note 05/26/2024 6:58 AM Procedure education reviewed: Benefits, discussed with: Patient face to face. Patient face to face confirms understanding of procedure. Insurance Healthcare Consultant used: No Reason for insertion: Vasoactive Medications [...] Site cleansed with: Chlorhexidine gluconate prep. Line Aircraft Avionics Technician Name: Bard Line Type: Valved Power PICC Lot Number: [id number] Access Assistance:Modified Seldinger Technique (Micro-Introducer) WITHOUT Dermatotomy [...] * MRSA/SA PCR (05/26/2024 3:11 AM CDT) Pathologist [facility] MRSA DNA PCR Negative Negative 05/26/2024 10:49 PM CDT [facility] STAPHYLOCOCCUS AUREUS PCR Negative Negative 05/26/2024 10:49 PM CDT [facility] Other SPECIMEN FROM INTERNAL NOSE / Unknown Non-Blood / Unknown 05/26/2024 3:11 AM CDT 05/26/2024 3:16 AM CDT Narrative [facility] - 05/26/2024 10:49 PM CDT Test result does not preclude MRSA or SA nasal colonization. us Eduardo Shaw DO MICROBIOLOGY Final Resul t [facility] [address] [place] [address], * SCAN-CARDIAC STRIP (05/26/2024 2:00 AM CDT) us Scanner OTHER Final Result * PET [...] result of the Century Cures Act, medical imagingexams and procedure [...] A1C 6.2(H) <6.0 % OF TOTAL HGB [facility] Comment: Any point of care results exhibiting inconsistency with the patient's clinical status should be repeated using a different testing method. Blood BLOOD SPECIMEN / Unknown 04/21/2024 2:37 PM CDT 04/21/2024 2:38 PM CDT us Tryell Schneider MD CHEMISTRY Final Result [facility] [[email or web address] [address] [place] [address], [facility] [address] [place] [address] * ANATOMIC PATH CONSULT (04/07/2024 12:28 PM RETURN CLERK) Pathologist [facility] Case Report Anatomic Pathology Consultation Case: [id number] Authorizing Provider: Michelle Treviño MD Collected: 04/07/2024 1228 Ordering Location: [facility] Received: 04/20/2024 0852 Pathologist: Kirti Hamilton MD Specimen: Left Upper Lobe Lung Biopsy, [facility] case [id number] 04/20/2024 6:51 PM CDT [facility] Final Diagnosis CONSULTATIVE REVIEW OF OUTSIDE PATHOLOGY SLIDES FROM [facility] TRANSBRONCHIAL BIOPSY, EBUS LYMPH NODES, BRONCHIAL WASHING [id number]; 04-07-2024 ------ A) LUNG, LEFT, UPPER LOBE, [...] Negative for malignancy 04/20/2024 6:51 PM CDT [facility] at 1851 CDT Comment [...] not sufficient for next-generation sequencing. Please call [phone] (option 2), to request block A1 for add on testing, if indicated. 04/20/2024 6:51 PM CDT [facility] Clinical Information C34.92 Left Lung [...] lobes. Patient was hospitalized 4 days at [facility] with community-acquired pneumonia in the setting of tobacco use with BMI 16.79, diabetes, and end-stage renal disease on hemodialysis, discharged 04-02-2024. The patient was then hospitalized at [facility][Note 3] 04-04-2024 and discharged 04-10-2024 with respiratory failure [...] and is pending. 04/20/2024 6:51 PM CDT [facility] 4[employer]ee [facility] EN[facility]AL [facility] Gross Description Received from ([place], [place]) are 13 glass stained slides and an accompanying pathology report with the patient name and outside accession number [id number], collected 04-07-2024. 04/20/2024 6:51 PM CDT [facility] Microscopic Description The final diagnosis is based on microscopic examination of appropriate sections of all specimens. Immunostains performed at the referring facility were reviewed at [facility] from [id number] block A1 with results as follows in tumor cells: P40: Positive TTF1: Negative (highlights background benign pulmonary elements) 04/20/2024 6:51 PM CDT [facility] Additional Information Original Date of Biopsy: 04/07/2024 [facility] Pathology Lab [address] [place] [address] Interpreted at [facility] Central Laboratory - [address], [place] [address] 04/20/2024 6:51 PM CDT [facility] Other (Left Upper Lobe Lung Biopsy) Non-Blood / Unknown 04/07/2024 12:28 PM RETURN CLERK 04/20/2024 8:52 AM CDT us Michelle Treviño MD PATHOLOGY/CYTOLOGY Final R esult [facility] [address] [place] [address], * (ABNORMAL) C-REACTIVE PROTEIN (04/01/2024 11:09 AM RETURN CLERK) C-REACTIVE PROTEIN 5.5(H) <0.5 mg/dL 04/01/2024 11:39 AM RETURN CLERK [facility] Blood BLOOD SPECIMEN / Unknown Line/Port / Unknown 04/01/2024 11:09 AM RETURN CLERK 04/01/2024 11:19 AM RETURN CLERK Victoriano Cooper MD CHEMISTRY Final Result [facility] INTERNAL ZIP [address] [place] [address] * (ABNORMAL) SPUTUM CULTURE, STAIN (03/31/2024 1:00 PM RETURN CLERK) CULTURE RESULT(A) 04/03/2024 8:18 AM RETURN CLERK [facility] CULTURE 1+ Klebsiella pneumoniae 04/03/2024 8:18 AM RETURN CLERK [facility] EN[facility]AL [facility] CULTURE 1+ Enterobacter cloacae complex 04/03/2024 8:18 AM RETURN CLERK [facility] ENTRMO LABORAT[facility] Comment: Oral cephalosporins are not recommended. May develop resistance during therapy with penicillins and [id number]-[id number] cephalosporins as a result of loss of repression of AmpC -lactamase. Therefore, isolates that are initially susceptible may become resistant within 3 to 4 days after initiation of therapy. CULTURE 1+ Pseudomonas aeruginosa 04/03/2024 8:18 AM RETURN CLERK [facility]- ENTRAL LABORATORY CULTURE 1+ Usual Viry 04/03/2024 8:18 AM RETURN CLERK [facility] GRAM STAIN 3+ PMNs 04/03/2024 8:18 AM RETURN CLERK [facility] GRAM STAIN 1+ RBCs 04/03/2024 8:18 AM RETURN CLERK [facility] GRAM STAIN 1+ Epithelial cells 04/03/2024 8:18 AM RETURN CLERK [facility] GRAM STAIN 1+ Yeast 04/03/2024 8:18 AM RETURN CLERK [facility] GRAM STAIN [facility] [place] 04/03/2024 8:18 AM [facility] Sputum SPUTUM SPECIMEN / Unknown Non-Blood / Unknown 03/31/2024 1:00 PM RETURN CLERK 03/31/2024 2:15 PM RETURN CLERK Narrative Organism Antibiotic Method Susceptibility Klebsiella pneumoniae [...] Jhon Alfred MD MICROBIOLOGY Heydi l Result [facility] [address] [place] [address], [facility] INTERNAL ZIP [address] [place] [address] * XR DXA BONE DENSITY 2 SITES AXIAL (04/12/2016 1:49 PM RETURN CLERK) Anatomical Region Laterality Modality Spine, HIPS, HIPL, HIPR Other Narrative 04/13/2016 10:06 AM RETURN CLERK Please see scanned document for results of this study. Tyrell Schneider MD DEXA Final Result * ANTI HCV (04/04/2016 1:32 PM RETURN CLERK) HEPATITIS C ANTIBODY Non-Reacti ve Non-Reacti ve 04/04/2016 7:49 PM RETURN CLERK [facility] Blood BLOOD SPECIMEN / Unknown Venipuncture / Unknown 04/04/2016 1:32 PM RETURN CLERK 04/04/2016 3:22 PM RETURN CLERK Narrative [facility] - 04/04/2016 7:49 PM RETURN CLERK Antibodies to HCV not detected; does not exclude the possibility of exposure to HCV. Tyrell Schneider MD SEND OUTS Final Result [facility] [address] [place] [address], from Last 3 Months or Most Recently Relevant to Health Maintenance Insurance MEDICARE PART A HB ONLY [facility] [place] * Guarantor: [employer] Account Type Relation to Patient Date of Phone Billing Address [facility] [address] [place] [address] [employer] Advance Directives * Full Code (Latest [...] Code Status Discussion: Reviewed Preferences Care Teams Lens Examiner Relationship Specialty Start Date End Date Tyrell Schneider MD [address] [place] [address] PCP - General 10/08/05 Kirti Rai, RN [address] [place] [id number] Nurse Navigator - Oncology Registered Nurse 04/17/24 [facility] [address] [place] [address] 06/03/24
--- OUTSIDE RECORDS SUMMARY | 2024-06-23 16:39 | XMS_ITS | CONTINUITY OF CARE DOCUMENT ---
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 Tank Worker Name Role Phone User, QIE Unavailable Unavailable PROBLEMS Condition Status Date Provider Notes Organizati on CKD STAGE ESRD ON DIALYSIS GFR <15 active Shakira Jacobs STRATEGY MANAGER STRATEGY MANAGER, [address] [place] [address] [address] [facility] VITAL SIGNS Date Observation Value Provider Organization blood pressure, diastolic 58 mm[Hg] Padmaja Das RN RN, [address] [place] [address] [address] [facility] blood pressure, systolic 141 mm[Hg] Padmaja Das RN RN, [address] [place] [address] [address] [facility] respiratory rate E&M 16 /min Padmaja Solares RN RN, [address] [place] [address] [address] [facility] pulse rate 56 /min Padmaja Das RN RN, [address] [place] [address] [address] [facility] blood pressure, site #1 Upper arm Padmaja Das RN RN, [address] [place] [address] [address] [facility] blood pressure, diastolic, right arm 58 mm[Hg] Padmaja Das RN RN, [address] [place] [address] [address] [facility] blood pressure, systolic, right arm 141 mm[Hg] Padmaja Das RN RN, [address] [place] [address] [address] [facility] temperature E&M 98.0 [degF] Padmaja Das RN RN, [address] [facility] [address] [facility] Body Mass Index (Ratio) 19.46 kg/m2 Padmaja Das RN RN, [address] [facility] [address] [facility] [address] [facility] [address] [facility] height E&M 62 [in_i] Padmaja Das RN RN, [address] [facility] [id number] [place] [address] [facility] weight E&M 106 [lb_av] Padmaja Das RN RN, [address] [facility] [id number] [place] [address] [facility] ALLERGIES Allergy Name Onset Date Reaction Criticality Status Provider Organization DIGIFAB itching Low Criticality active Padmaja Das RN RN, [address] [facility] [address] [facility] GATIFLOXACIN nausea Low Criticality active Ginger Lundahl RDMS, RVT RDMS, RVT, [address] [facility] [address] [facility] PRAVASTATIN SODIUM myalgia Low Criticality active Ginger Lundahl RDMS, RVT RDMS, RVT, [address] [facility] [address] [facility] VITEYES OMEGA-3 itching Low Criticality active Ginger Lundahl RDMS, RVT RDMS, RVT, [address] [facility] [address] [facility] OAK rash Low Criticality active Ginger Lundahl RDMS, RVT RDMS, RVT, [address] [facility] [address] [facility] NIACIN itching Low Criticality active Ginger Lundahl RDMS, RVT RDMS, RVT, [address] [facility] [address] [facility] LOSARTAN POTASSIUM itching Low Criticality active Ginger Lundahl RDMS, RVT RDMS, RVT, [address] [facility] [address] [facility] LISINOPRIL rash Low Criticality active Ginger Lundahl RDMS, RVT RDMS, RVT, [address] [facility] [address] [facility] LIPITOR myalgia Low Criticality active Gigner Lundahl RDMS, RVT RDMS, RVT, [address] [place] [address] [facility] HYDROCHLOROTHIAZIDE had significant pruritic rash High Criticality active Ginger Lundahl RDMS, RVT RDMS, RVT, [address] [facility] [address] [facility] GEMFIBROZIL itching Low Criticality active Ginger Lundahl RDMS, RVT RDMS, RVT, [address] [facility] [address] [facility] BUCIO edema Low Criticality active Ginger Lundahl RDMS, RVT RDMS, RVT, [address] [facility] [address] [facility] CATS SOB SOB High Criticality active Ginger Lundahl RDMS, RVT RDMS, RVT, [address] [facility] [address] [facility] ATENOLOL rash Low Criticality active Ginger Lundahl RDMS, RVT RDMS, RVT, [address] [facility] [address] [facility] AMPICILLIN hives Low Criticality active Ginger Lundahl RDMS, RVT RDMS, RVT, [address] [facility] [address] [facility] RESULTS Date Observation Value Provider Organization Refer ence Range Interpretation Location blood glucose, finger stick 161 Padmaja Das RN RN, [address] [facility] [address] [facility] HISTORY OF MEDICATION USE Medication Instructions Status Dates Provider Indications Com ments Organization triamcinolone acetonide 0.1% cream active Tamela Karl , [address] [facility] [address] [facility] sorbitol 70% solution TAKE 30 ML BY MOUTH ONCE A DAY NEEDED FOR CONSTIPATION* active Tamela Karl , [address] [facility] [address] [facility] [address] [facility] senna 8.6 mg tablet take 1-4 tablets by mouth once daily as needed to achieve 2-3 soft bowel movements daily active Tamela Barajas , [address] [facility] [address] [facility] [address] [facility] furosemide 40 mg tablet 1 tablet once a day active [address] [place] [address] [facility] labetalol 300 mg tablet as directed active [address] [facility] [address] [facility] moxifloxacin 0.5% drops as directed active [address] [place] [address] [facility] mupirocin 2% ointment as directed active [address] [facility] [address] [facility] pantoprazole 40 mg tablet,delayed release (DR/EC) 1 tablet twice a day active [address] [facility] [address] [facility] repaglinide 1 mg tablet 1 tablet three times a day active [address] [facility] [address] [facility] TYLENOL WITH CODEINE #3 300-30 MG ORAL TABLET 1-2 tablet every four to six hours as needed completed 05/19 - 04/[address] [facility] [address] [facility] Cipro 500 mg tablet Take 1 tablet by mouth once a day completed 05/19 - 04/[address] [facility] [address] [facility] sodium bicarbonate 650 mg tablet 1 tablet twice a day completed 02/22 - 04/[address] [facility] [address] [facility] labetalol 200 mg tablet 2 tablet twice a day completed 02/22 - 04/[address] [facility] [address] [facility] Levsin 0.125 mg tablet 1-2 tablet every four hours as needed completed 02/22 - 04/[address] [facility] [address] [facility] glipizide 10 mg tablet 2 tablet once a day active 02/22 Ginegr Lundahl RDMS, RVT RDMS, RVT, [address] [place] [address] [address] [facility] [address] [facility] ADVAIR DISKUS 250-50 MCG/DOSE INHALATION AEROSOL POWDER BREATH ACTIVATED 1 puff every twelve hours completed 02/22 - 04/[address] [facility] [address] [facility] clonidine HCl 0.2 mg tablet 2 tablet every night active 02/22 Gingermichell Engelahl RDMS, RVT RDMS, RVT, [address] [place] [address] [address] [facility] [address] [facility] cetirizine 10 mg tablet 1 tablet once a day completed 02/22 - 04/[address] [facility] [address] [facility] calcitriol 0.25 mcg capsule 1 capsule once a day completed 02/22 - 04/[address] [facility] [address] [facility] bisacodyl 10 mg suppository once a day completed 02/22 - 04/[address] [facility] [address] [facility] aspirin 81 mg tablet,delayed release (DR/EC) 1 tablet once a day completed 02/22 - 04/[address] [facility] [address] [facility] amlodipine 10 mg tablet 1 tablet twice a day active 02/22 Ginger Engelahl RDMS, RVT RDMS, RVT, [address] [place] [address] [address] [facility] [address] [facility] albuterol sulfate 2.5 mg/3 mL (0.083 %) solution for nebulization Inhale 3 ml every four hours as needed active 02/22 Ginger Lundahl RDMS, RVT RDMS, RVT, [address] [place] [address] [address] [facility] [address] [facility] SOCIAL HISTORY Date Observation Value Provider Organization site on body for surgical procedure brachiobasilic fistula Mahogany Rm MD, MD, [address] [facility] [address] [facility] social history reviewed E&M reviewed - no changes required Padmaja Das RN RN, [address] [facility] [address] [facility] [address] [facility] INSURANCE PROVIDERS Payer name Policy type / Coverage type [facility] ID [employer] - BCBS [id number] [id number] MEDICARE [id number] HISTORY OF PROCEDURES Procedure Date Procedure Name Provider Procedure Notes Status Organization SNOMED-CT: [id number] Current Medications Documented Mahogany Rm MD, MD, [address] [facility] [address] completed [facility] INJECTION FENTANYL CITRATE 100MCG Mahogany Rm MD, MD, [address] [place] [address] completed [facility] INJECTION MIDAZOLAM HCL PER 1 MG Mahogany Rm MD, MD, [address] [place] [address] completed [facility] Omnipaque-Visipaque Mahogany Rm MD, MD, [address] [facility] [address] completed [facility] Wire Mahogany Rm MD, MD, [address] [place] [address] completed [facility] Balloon Mahogany Rm MD, MD, [address] [place] [address] completed [facility] Sheath Mahogany Rm MD, MD, [address] [place] [address] completed [facility] INFUS NORMAL SALINE SOLUTION 250 CC Mahogany Rm MD, MD, [address] [place] [address] completed [facility] Angioplasty within including RS&I Mahogany Rm MD, MD, [address] [place] [address] completed [facility] Fistulagram, Dialysis Mahogany Rm MD, MD, [address] [place] [address] completed [facility] Antibiotic-No Order Mahogany Rm MD, MD, [address] [place] [address] completed [facility] Quailty Measures all negative Mahogany Rm MD, MD, [address] [place] [address] completed [facility] SNOMED-CT:HISTORICAL PNEUMOCOCCAL VACCINATION Mahogany Rm MD, MD, [address] [place] [address] completed [facility] SNOMED-CT:PATIENT ENCOUNTER Mahogany Rm MD, MD, [address] [facility] [address] completed [facility]
--- OUTSIDE RECORDS SUMMARY | 2024-06-23 16:39 | XMS_ITS | Referral Summary ---
Author Organization [facility] Address [address] [place] [address] Phone Care Team Providers Care New Account Interviewer Name Role Phone Unavailable Primary Care Provider Unavailabl e Source Comments [email or web address] is fully rolled out on [employer]. Last update 07/16/08.[facility] Encounters Date Type Department Care Team Description 06/05/2024 Documentation Only Transplant Program [address] [place] [address] Delma Montemayor 06/04/2024 [facility] [address] [address] Case Alvarez MD 06/04/2024 Orders Only Unspecified Department [place] Unknown, Provider 06/04/2024 Documentation Only Transplant Program [address] [place] [address] Delma Montemayor 06/04/2024 Orders Only Unspecified Department [place] Unknown, Provider 06/04/2024 Travel 06/03/2024 11:58 PM CDT - 06/04/2024 3:49 PM CDT Emergency [facility] [address] [place] [address] Lourdes Hastings MD O'Shaughnessy, Eileen, MD Syncope, unspecified syncope type Discharge Disposition: Discharged to home or self care 06/03/2024 12:15 AM CDT - 06/03/2024 11:33 PM CDT Emergency [facility] Emergency Department [address] [place], [place] [address] Eye trauma from fall; also head and neck trauma Discharge Disposition: Left against medical advice or discontinued care from Last 3 Months Allergies Active Allergy [...] (81 mg) by mouth daily. 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 Provider Unknown RAD ECHO Final Result * [...] acute osseous abnormality Reading Radiologist: Daniel Vincent us Monika Rodriguez MD RAD XRAY Final Re sult * (ABNORMAL) TROP 4H (06/04/2024 5:45 AM CDT) 4H Trop 32(H) <=14 ng/L [facility] 4H Delta Indeterminate Not Significant [facility] Blood 06/04/2024 5:45 AM CDT 06/04/2024 6:41 AM CDT us Lourdes Hastings MD LABORATORY Edited Resul t - Final [facility] [address] [place] [id number] * (ABNORMAL) CBC WITH PLTS/AUTO DIFF (06/04/2024 5:45 AM CDT) Only the most recent of2 resultswithin the time period is included. WBC 20.41(H) 4.00 - 10.00 k/cmm [facility] RBC 3.32(L) 3.90 - 5.20 m/cmm [facility] Hgb 9.6(L) 11.5 - 15.7 g/dL [facility] Hematocrit 31.1(L) 34.0 - 45.0 % [facility] MCV 93.7 80.0 - 100.0 fL [facility] MCH 28.9 25.0 - 32.0 pg [facility] MCHC 30.9(L) 31.0 - 36.0 g/dL [facility] RDW 18.0(H) 11.5 - 14.5 % [facility] Plt 289 150 - 400 k/cmm [facility] MPV 10.1 6.5 - 12.5 fL [facility] Automated Abs Neutrophil 18.09(H) 1.70 - 6.50 k/cmm [facility] Comment:Preliminary ANC, Fin al Result to Follow Abs Immature Granulocyte 0.16(H) 0.00 - 0.09 k/cmm [facility] Comment:The Immature Granulo cyte Absolute count contains metamyelocytes and myelocytes. Abs Neutrophil 18.09(H) 1.70 - 6.50 k/cmm [facility] Abs Lymphocyte 1.01 0.80 - 4.00 k/cmm [facility] Abs Monocyte 1.04(H) 0.20 - 1.00 k/cmm [facility] Abs Eosinophil 0.06 0.00 - 0.60 k/cmm [facility] Abs Basophil 0.05 0.00 - 0.20 k/cmm [facility] Blood 06/04/2024 5:45 AM CDT 06/04/2024 6:42 AM CDT Lourdes Hastings MD LABORATORY Edited Resul t - Final Performing Organization Address [facility] Co de Phone Number [facility] [address] [address] * PROTHROMBIN (PT) & INR (06/04/2024 5:45 AM CDT) Only the most recent of2 resultswithin the time period is included. PT 11.9 9.0 - 12.5 sec [facility] INR 1.0 0.8 - 1.1 [facility] Comment: Warfarin Therapeutic Range: Standard Intensity: 2.0 - 3.0 High Intensity: 2.5 - 3.5 Blood 06/04/2024 5:45 AM CDT 06/04/2024 6:41 AM CDT Lourdes Hastings MD LABORATORY Final Result Performing Organization Address [facility] de Phone Number [facility] [address] [address] * (ABNORMAL) PHOSPHORUS (06/04/2024 5:45 AM CDT) Phosphorus 5.0(H) 2.5 - 4.5 mg/dL [facility] Blood 06/04/2024 5:45 AM CDT 06/04/2024 6:40 AM CDT Lourdes Hastings MD LABORATORY Final Result Performing Organization Address [facility] Co de Phone Number [address] [address] * (ABNORMAL) PANEL BASIC METABOLIC (BMP) (06/04/2024 5:45 AM CDT) Sodium 131(L) 135 - 148 mmol/L [facility] Potassium 4.9 3.5 - 5.3 mmol/L [facility] Chloride 90(L) 92 - 108 mmol/L [facility] CO2 26 22 - 30 mmol/L [facility] Glucose 304(H) 70 - 100 mg/dL [facility] BUN 42(H) 8 - 23 mg/dL [facility] Creatinine 3.62(H) 0.50 - 1.00 mg/dL [facility] Calcium 9.2 8.8 - 10.2 mg/dL [facility] AnGap 15 8 - 16 mmol/L [facility] eGFR (2020 CKD-EPI) 12(L) >=60 ml/min/1.7 3m2 [facility] Comment: The estimated glomerular filtration rate [...] MD LABORATORY Final Result Performing Organization Address [facility] Co de Phone Number [facility] [place] [phone] * MAGNESIUM (06/04/2024 5:45 AM CDT) Pathologist [facility] Magnesium 2.1 1.6 - 2.4 mg/dL [facility] Blood 06/04/2024 5:45 AM CDT 06/04/2024 6:40 AM CDT Lourdes Hastings MD LABORATORY Final Result Performing Organization Address [facility] Co de Phone Number [facility] [address] [address] * (ABNORMAL) PANEL HEPATIC FUNCTION (06/04/2024 5:45 AM CDT) Total Protein 8.1 6.4 - 8.3 g/dL [facility] Albumin 3.3(L) 3.8 - 5.1 g/dL [facility] Bili Total 0.2 <=1.2 mg/dL [facility] Bili Direct 0.1 <=0.3 mg/dL [facility] Alk Phos 141(H) 35 - 104 IU/L [facility] Comment:No reference range e stablished for patients <18 years old. ALT (SGPT) 19 <=33 IU/L [facility] AST(SGOT) 30 5 - 40 IU/L [facility] Blood 06/04/2024 5:45 AM CDT 06/04/2024 6:40 AM CDT us Lourdes Hastings MD LABORATORY Final Result [facility] [address] [place] [phone] * Laceration Repair (06/04/2024 4:51 AM CDT) Narrative Lourdes Hastings MD - 06/04/2024 4:51 AM CDT Lourdes Hastings MD 06/13/2024 1:18 PM Laceration Repair Performed by: Darline Ruff MD Authorized by: Lourdes Hastings MD Consent: Consent obtained: Verbal Consent given by: Patient Risks discussed: Infection, pain, need for additional repair, poor wound healing, poor cosmetic result and retained foreign body [place] protocol: Procedure explained and questions answered to [...] AM CDT) 2H Trop 32(H) <=14 ng/L [facility] 2H Delta Not Significant Not Significant [facility] Blood 06/04/2024 4:05 AM CDT 06/04/2024 4:10 AM CDT Lourdes Hastings MD LABORATORY Edited Resul t - Final [facility] [address] [address] * Laceration Repair (06/04/2024 3:48 AM CDT) Narrative Lourdes Hastings MD - 06/04/2024 3:48 AM CDT Lourdes Hastings MD 06/13/2024 1:18 PM Laceration Repair Performed by: Darline Ruff MD Authorized by: Lourdes Hastings MD Consent: Consent obtained: Verbal Consent given by: Patient Risks discussed: Infection, pain, need for additional repair, poor wound healing, poor cosmetic result and retained foreign body [place] protocol: Procedure explained and questions answered to [...] Indications: Syncope/Near Syncope Window: Subxiphoid, Parasternal Short [place], Parasternal Long [place], Apical 4-Chamber, IVC, and Bilateral Lungs Findings: [...] (ABNORMAL) HS TROPONIN (06/04/2024 12:44 AM CDT) Pathologist [facility] HS Troponin I 31(H) <=14 ng/L [facility] Blood 06/04/2024 12:4 4 AM CDT 06/04/2024 12:47 AM CDT Narrative [facility] - 06/04/2024 1:19 AM CDT First Occurrence of the Troponin order is to be drawn Stat by Nursing staff on the unit. us Lourdes Hastings MD LABORATORY Final Result [facility] [address] [address] * (ABNORMAL) ED CHEMISTRY LABS(NA,K,CL,CO2,GLU,CREAT,CA-IONIZED,ANION GAP) (06/04/2024 12:44 AM CDT) Sodium 134(L) 135 - 148 mmol/L [facility] Chloride 102 92 - 108 mmol/L [facility] AnGap 9 8 - 16 mmol/L [facility] Glucose 134(H) 70 - 100 mg/dL [facility] ICA, Actual 4.13(L) 4.40 - 5.20 mg/dL [facility] ICA, pH Corrected 4.29(L) 4.40 - 5.20 mg/dL [facility] Creatinine 3.11(H) 0.50 - 1.00 mg/dL [facility] BICARB 23 22 - 26 mEq/L [facility] eGFR (2020 CKD-EPI) 15(L) >=60 ml/min/1.7 3m2 [facility] Comment: The estimated glomerular filtration rate (eGFR) was calculated using the CKD-EPI 2020 creatinine equation, which does not include race as a factor. This equation is validated in individuals 18 years of age and older, and eGFR is normalized to a body surface area of 1.73m^2. Potassium 4.7 3.5 - 5.3 mmol/L [facility] Blood 06/04/2024 12:4 4 AM CDT 06/04/2024 12:48 AM CDT Lourdes Hastings MD LABORATORY Final Result Performing Organization Address City/[facility]/ZIP Co de Phone Number [facility] [address] [address] * EXTRA TUBE - SST (06/04/2024 12:43 AM CDT) SST TUBE Stored [facility] Comment:SST tubes (Serum Sep arator) are stored in the lab for 3 days from the collection date. Blood 06/04/2024 12:4 3 AM CDT 06/04/2024 12:50 AM CDT Lourdes Hastings MD LABORATORY Final Result Performing Organization Address [facility] Co de Phone Number [address] [address] * CT OUTSIDE READ HEAD/FACIAL BONES (06/04/2024 [...] Radiologist: Abdullahi Solano Reading Resident: Vicente Emerson Narrative 06/04/2024 8:25 AM CDT Indication: Patient transferred from [facility] due to Trauma. No initial report accompanied the patient and/or Dr. LOURDES HASTINGS requested an interpretation by me. Technique: CT scan of the head and facial bones done on without without IV contrast. 3 mm axial and coronal reconstructions reviewed in soft tissue and bone windows, per the local institution's scanning protocols, which may differ from the [facility] trauma protocols. Findings: There is no evidence [...] MD - 06/04/2024 Indication: Patient transferred from [facility] due to Trauma.No initial report accompanied the patient and/or Dr. LOURDES HASTINGSrequested an interpretation by me. Technique: CT scan of the head and facial bones done on without withoutIV contrast. 3 mm axial and coronal reconstructions reviewed in softtissue and bone windows, per the local institution's scanning protocols,which may differ from the [facility] trauma protocols. Findings: There is no evidence [...] 7:56 AM CDT Indication: Patient transferred from [facility] due to Trauma. No initial report accompanied the patient and/or Dr. LOURDES HASTINGS requested an interpretation by me. Technique: CT scan of the cervical spine done on 06/03/2024 without IV contrast. 3 mm axial, sagittal and coronal reconstructions reviewed in soft tissue and bone windows, per the local institution's scanning protocols, which may differ from the [facility] trauma protocols. Findings: The lateral masses of [...] MD - 06/04/2024 Indication: Patient transferred from [facility] due to Trauma.No initial report accompanied the patient and/or Dr. LOURDES HASTINGSrequested an interpretation by me. Technique: CT scan of the cervical spine done on 06/03/2024 without IVcontrast. 3 mm axial, sagittal and coronal reconstructions reviewed insoft tissue and bone windows, per the local institution's scanningprotocols, which may differ from the [facility] trauma protocols. Findings: The lateral masses of [...] CDT) 06/04/2024 12:3 2 AM CDT Impressions [facility] CVIS EKG ORDERS - 06/04/2024 12:32 AM CDT SINUS RHYTHM POSSIBLE RIGHT ATRIAL ENLARGEMENT [0.25mV P-WAVE] BORDERLINE ECG P-R Interval 177 ms QRS Interval 81 ms QT Interval 396 ms QTC Interval 412 ms P [place] 87 QRS [place] 70 T Wave [place] 95 Narrative Procedure Note Felipe Douglass III, MD - 06/04/2024 IMPRESSION SINUS RHYTHM POSSIBLE RIGHT ATRIAL ENLARGEMENT [0.25mV P-WAVE] BORDERLINE ECG P-R Interval 177 ms QRS Interval 81 ms QT Interval 396 ms QTC Interval 412 ms P [place] 87 QRS [place] 70 T Wave [place] 95 us Lourdes Hastings MD EKG Final Result [facility] CVIS EKG ORDERS * ISACC MAMMOGRAM SCREENING BILAT (11/21/1999 3:54 PM CDT) [...] No suspicious microcalcifications are identified. Procedure Note Bandar Saavedra J - 08/28/2005 Final Report EXAM: MAMMOGRAM [...] Recently Relevant to Health Maintenance Insurance MEDICARE [facility] Advance Directives For more information, please contact: [phone] * Full Code (Latest Code Status on [...]
--- OUTSIDE RECORDS SUMMARY | 2024-06-23 16:39 | XMS_ITS | Encounter Summary ---
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
--- OUTSIDE RECORDS SUMMARY | 2024-06-23 16:39 | XMS_ITS | Clinical Summary ---
Author Organization [place] Address [address] [place] [address] Care Team Providers Care Outside Maintenance Worker Name Role Phone Tyrell Schneider Bulmaro Primary Care Provider [phone] Allergies Active Allergy Reactions Criticality Noted Date [...] 01/09/2010 itching Niacin Rash,Itching Low 05/13/2006 itch [place] Rash Low 05/16/2010 Oxycodone Nausea and [...] times daily 3 Active neomycin-polymyx in-dexAMETHasone (MAXITROL) 3.5-55510-0.[address] 0.25 inches Into the [...] CDT - 04/27/2024 8:51 PM CDT Emergency [facility] Emergency Dept [address] [place] [address] Jason Tapia MD Left-sided chest pain; Mass of upper lobe of left lung Discharge Disposition: Home or Self Care 04/27/[address] 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 [facility] Troponin T, High Sensitivity 137(HH) <=14 [...] MD LAB - BLOOD ORDERABLES Final Result [facility] [address] (1st floor, no room number) [place] [address], [facility] * CT Chest Pulmonary Embolism w Contrast [...] CT CHEST PULMONARY EMBOLISM W CONTRAST LOCATION: [facility] DATE: 04/27/2024 INDICATION: Chest pain, [...] CT CHEST PULMONARY EMBOLISM W CONTRAST LOCATION: [facility] DATE: 04/27/2024 INDICATION: Chest pain, [...] US LOWER EXTREMITY VENOUS DUPLEX RIGHT LOCATION: [facility] DATE: 04/27/2024 INDICATION: RLQ pain, [...] US LOWER EXTREMITY VENOUS DUPLEX RIGHT LOCATION: [facility] DATE: 04/27/2024 INDICATION: RLQ pain, [...] BPM MUSE Atrial Rate 69 BPM MUSE [place] Interval 178 ms MUSE QRS Duration 82 ms MUSE QT 394 ms MUSE QTc 422 ms MUSE P [place] 75 degrees MUSE R AXIS 24 degrees MUSE T [place] 80 degrees MUSE Interpretation ECG Sinus rhythm Minimal voltage criteria for LVH, may be normal variant ( Graham product ) Borderline ECG When compared with ECG of 27-Apr-2024 14:32, (unconfirmed) No significant change was found Unconfirmed report - interpretation of this ECG is computer generated - see medical record for final interpretation Confirmed by - EMERGENCY ROOM, PHYSICIAN ([id number]), editor department Song Cheung ([id number]) on 04/27/2024 3:21:42 PM MUSE 04/27/2024 2:47 PM CDT 04/27/2024 3:21 PM CDT us Emanuel Lozano MD ECG ORDERABLES Edited Result - Final MUSE * Extra Red Top Tube (04/27/2024 1:53 PM CDT) Hold Specimen [facility] 04/27/2024 3:01 PM CDT [facility] LAB[facility]ATORY Blood BLOOD SPECIMEN / Unknown Venipuncture / Unknown 04/27/2024 1:53 PM CDT 04/27/2024 1:56 PM CDT Jason Tapia MD LAB - BLOOD ORDERABLES Final Result LABORATORY [facility] Care [facility] [address] Lab (1st floor, no room number) [place] [phone] * Extra Blue Top Tube (04/27/2024 1:53 PM CDT) [facility] Signature Hold Specimen [facility] 04/27/2024 3:01 PM CDT [facility] LABORATORY Blood BLOOD SPECIMEN / Unknown Venipuncture / Unknown 04/27/2024 1:53 PM CDT 04/27/2024 1:56 PM CDT Jason Tapia MD LAB - BLOOD ORDERABLES Final Result [facility] [address] Lab (1st floor, no room number) [place] [phone] * (ABNORMAL) CBC with platelets and differential (04/27/2024 1:53 PM CDT) [facility] WBC Count 14.2(H) 4.0 - 11.0 [...] BLOOD ORDERABLES Final Result Performing Organization Address [facility]/ZIP Co de Phone Number [facility] [address] [facility] Lab (1st floor, no room number) [place] [address] * (ABNORMAL) D dimer quantitative [...] out pulmonary embolism: The ADJUST-PE Study. REGINA 2014;311:6665-7658.; ASAF Le et al. Diagnostic accuracy of conventional or age adjusted D-dimer cutoff values in older patients with suspected venous thromboembolism. Systemic review and meta-analysis. BMJ 2013:346:f2492. Jason Tapia MD LAB - BLOOD ORDERABLES Final Result Performing Organization Address City/[facility]/ZIP Co de Phone Number [facility] [address] Lab (1st floor, no room number) [place] [address], [facility] * (ABNORMAL) Comprehensive metabolic panel (04/27/2024 1:53 [...] LAB - BLOOD ORDERABLES Final Result LABORATORY [facility] Acute Care Lab [address] Lab (1st floor, no room number) [place] [address] * (ABNORMAL) Renal panel (12/18/2022 8:45 AM MACHINIST HELPER) [facility] Sodium 135 135 - 145 mmol/L 12/18/2022 9:44 AM [facility] Comment:Reference intervals for this test were updated on 11/06/2022 to more accurately reflect our healthy population. There may be differences in the flagging of prior results with similar values performed with this method. Interpretation of those prior results can be made in the context of the updated reference intervals. Potassium 4.2 3.4 - 5.3 mmol/L 12/18/2022 9:44 AM [facility] Chloride 99 98 - 107 mmol/L 12/18/2022 9:44 AM [facility] Carbon Dioxide (CO2) 29 22 - 29 mmol/L 12/18/2022 9:44 AM [facility] Anion Gap 7 7 - 15 mmol/L 12/18/2022 9:44 AM [facility] Glucose 128(H) 70 - 99 mg/dL 12/18/2022 9:44 AM [facility] Urea Nitrogen 17.7 8.0 - 23.0 mg/dL 12/18/2022 9:44 AM [facility] Creatinine 2.67(H) 0.51 - 0.95 mg/dL 12/18/2022 9:44 AM [facility] GFR Estimate 18(L) >60 mL/min/1. 73m2 12/18/2022 9:44 AM [facility] Calcium 7.6(L) 8.8 - 10.2 mg/dL 12/18/2022 9:44 AM [facility] Albumin 2.6(L) 3.5 - 5.2 g/dL 12/18/2022 9:44 AM MACHINIST HELPER LABORATORY Phosphorus 2.3(L) 2.5 - 4.5 mg/dL 12/18/2022 9:44 AM MACHINIST HELPER LABORATORY Blood STRUCTURE OF RIGHT UPPER LIMB / Unknown Venipuncture / Unknown 12/18/2022 8:45 AM MACHINIST HELPER 12/18/2022 8:50 AM MACHINIST HELPER us David Treviño MD LAB - BLOOD ORDERABLES Final Res ult [facility] Lab [address] Lab (1st floor, no room number) [place] [address], [facility] [phone] * Stool: occult blood (12/12/2022 11:03 PM CDT) [facility] Occult Blood Negative Negative JENNIFER 12/12/2022 11:32 PM CDT LABORATORY Stool RECTAL CONTENTS / Unknown Non-blood Collection / Unknown 12/12/2022 11:03 PM CDT 12/12/2022 11:11 PM CDT us Jason Tapia MD LAB - STOOLS ORDERABLES Final Result [facility] [address] Lab (1st floor, no room number) [place] [address], [facility] [phone] from Last 3 Months or Most Recently Relevant to Health Maintenance Insurance [facility] MEDICARE ADVANTAGE [employer] MEDICARE ADVANTAGE Advance Directives For more information, please contact: [phone] * Full Code (Latest Code Status on [...] patie nt/ legal decision maker Care Teams Outside Maintenance Worker Relationship Specialty Start Date End Date Tyrell Schneider [address] [place] [address] PCP - General Family Medicine 02/19/23
--- OUTSIDE RECORDS SUMMARY | 2024-06-23 16:39 | XMS_ITS | Encounter Summary ---
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 us Provider Unknown RAD ECHO Final Result documented in this encounter Visit Diagnoses Not on filedocumented in this encounter
--- OUTSIDE RECORDS SUMMARY | 2024-06-23 16:39 | XMS_ITS ---
Author Name [facility] Address [address] [place], [place] [id number] Phone [phone] Organization [facility] e, NA DOCUMENT DISCLAIMER Multiple document versions may exist, please be sure you review the latest version. The information in the [facility] Continuity of Care Document represents a summary of certain health and medical information. It may not contain the complete medical history for the patient and should be independently verified. The represented time in the document is Eastern Time. 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 Gender and Sex Information Gender Identity Sexual Orientation No Information Available No Information Available MEDICATIONS Prescribed Medications for Dialysis Treatments Medication Instructions Dosage Route Start Date End Date Stat Clonidine HCl PRN 0.1 mg Oral January 29, 2024 January 27, 2025 Active Heparin Sodium (Porcine) 1,000 Units/mL Systemic Intermittent mid run, Every Treatment, Total treatment minutes 165 2000 units Intravenous - push April 01, 2024 March 31, 2025 Active Heparin Sodium (Porcine) 1,000 Units/mL Systemic Bolus, Every Treatment, Total treatment minutes 165 2000 units Intravenous - push January 29, 2024 January 27, 2025 Active Mircera During Dialysis, Every 2 weeks 200 mcg Intravenous - push June 12, 2024 June 11, 2025 Active Vitamin D (Calcitriol) Oral 3X Week 0.25 mcg Oral May 18, 2024 May 17, 2025 Discontinued Home Medications Medication Instructions Dosage Route [...] 1 patch TRANSDERMAL February 24, 2024 Active nifedipine 60 mg Take by mouth once a day 2 tablet ORAL June 04, 2024 Active Norvasc 10 mg ORAL March [...] Sign Value Date / Time Blood Pressure-sitting 150/70 mmHg June 22 12:19 PM Blood Pressure-standing 132/62 mmHg June 22, 2024 12:19 PM Heart Rate 92 beats per minute June 22, 2024 12:19 PM Respiratory Rate 22 breaths per minute June 22 12:19 PM Temperature 98.1 deg. F June 22, 2024 12: 19 PM Weight Vital Sign Value Date / Time Estimated Dry Weight 36.7 kg April 17 025 11:59 PM Pre-Dialysis 38.00 kg June 22, 2024 12: 19 PM Post-Dialysis 37.60 kg June 22, 2024 12: 19 PM Other Other Value Date / Time Height 152.4 cm February 14, 2022 12:00 AM Body Mass Index 15.88 kg/m2 June 15, 2024 02: 13 PM LAB RESULTS Hematology Result Type Result Value Relevant Referen ce Range Interpretation Date Platelets 275 1000/mcL 130 - 400 1000/mcL - Dece mber 2023 UIBC (Calc) 204 mcg/dL 155 - 355 [...] 1000/mcL 130 - 400 1000/mcL - Alvarez [email or web address] WBC (No Diff) 8.27 1000/mcL 4.80 - 10.80 1000/mcL - February 19, 2024 UIBC/TIBC 167 mcg/dL 155 - 355 mcg/dL - February 24, 2024 Neutrophils 81.4 % 40.0 - 75.0 % High March Platelets 299 1000/mcL 130 - 400 1000/mcL - Febr uary 2024 WBC (No Diff) 9.97 1000/mcL 4.80 - 10.80 1000/mcL - March 18, 2024 UIBC (Calc) 191 mcg/dL 155 - 355 mcg/dL - 2024 TIBC 246 mcg/dL 185 - 515 mcg/dL - March 18, 2024 Transferrin Sat. (Calc) 22 % 20 - 55 % - March 18 Hemoglobin x 3 30.9 % 36.0 - 48.0 % Low r 2024 Hemoglobin x 3 25.5 % 36.0 - 48.0 % Low April Hemoglobin x 3 21.6 % 36.0 - 48.0 % Low April Platelets 346 1000/mcL 130 - 400 1000/mcL - 2024 MCH 28.6 pg 27.0 - 31.0 pg - April 15, 2024 MCHC 31.5 g/dL 30.0 - 36.0 g/dL - April RDW 18.5 % 11.5 - 14.5 % High April 15 Iron 78 mcg/dL 30 - 160 mcg/dL [...] 3 19.8 % 36.0 - 48.0 % April 112024 WBC (No Diff) 20.65 1000/mcL 4.80 - 10.80 1000/mcL High May 13, 2024 Basophils 0.3 % 0.0 [...] - 400 1000/mcL - Apri l 2024 Hemoglobin x 3 24.6 % 36.0 - [...] % 36.0 - 48.0 % Low May Hemoglobin x 3 27.6 % 36.0 - 48.0 % Low May 132024 HGB 9.2 g/dL 12.0 - 16.0 g/dL Low May HGB 9.4 g/dL 12.0 - 16.0 g/dL Low May Hemoglobin x 3 28.2 % 36.0 - 48.0 % Low May 142024 Platelets 410 1000/mcL 130 - 400 1000/mcL High June 17, 2024 HGB 8.8 g/dL 12.0 - 16.0 g/dL Low June 17, 2024 Hemoglobin x 3 26.4 % 36.0 - 48.0 % Low June 17, 2024 RDW 18.3 % 11.5 - 14.5 % High June 17 Neutrophils 87.7 % 40.0 - 75.0 % High June 17 Lymphocytes 5.5 % 19.0 - 48.0 % Low June 17 Eosinophil 1.4 % 0.0 - 7.0 % - June 17, 2024 Basophils 0.4 % 0.0 - 1.5 % - June 17, 2024 Monocytes 3.9 % 3.0 - 10.0 % - June 17, 2024 RBC 3.11 mill/mcL 4.20 - 5.40 mill/mcL Low June 17, 2024 HCT 30.2 % 37.0 - 47.0 % Low June 17 JUANITO 1.2 % 0.0 - 4.0 % - June 17, 2024 WBC (No Diff) 21.37 1000/mcL 4.80 - 10.80 1000/mcL High June 17, 2024 MCHC 29.0 g/dL 30.0 - 36.0 g/dL Low June 17, 2024 MCH 28.2 pg 27.0 - 31.0 pg - June 17 UIBC (Calc) 161 mcg/dL 155 - 355 mcg/dL - June 17, 2024 TIBC 180 mcg/dL 185 - 515 mcg/dL Low June 17, 2024 Transferrin Sat. (Calc) 11 % 20 - 55 % Low June 17, 2024 Ferritin 2452 ng/mL 10 - 291 ng/mL High June 17 Iron 19 mcg/dL 30 - 160 mcg/dL Low June 17 Metabolic/Renal Result Type Result Value Relevant Referen ce Range Interpretation Date Vitamin B12 536 pg/mL 211 - 911 pg/mL - December 18, 2023 BUN 76 mg/dL 6 - 19 mg/dL [...] 6 - 19 mg/dL High May 13 25 BUN/Creat Ratio 11.4 10.0 - 20.0 - [...] 6 - 19 mg/dL - May 13 Potassium 5.0 mEq/L 3.5 - 5.1 mEq/L - June 17 Chloride 97 mEq/L 96 - 108 mEq/L - June 17 Bicarbonate 24 mEq/L 20 - 31 mEq/L - June 17 BUN 58 mg/dL 6 - 19 mg/dL High June 17, 2024 Creatinine, Serum 5.46 mg/dL 0.60 - 1.30 mg/dL High June 17, 2024 BUN/Creat Ratio 10.6 10.0 - 20.0 - June 17, 2024 Sodium 133 mEq/L 136 - 145 mEq/L Low June 17 025 BUN, Post 10 mg/dL 6 - 19 mg/dL - June 17, 2024 URR, Calc 83 % 65 - 80 % High June 17, 2024 HD Adequacy Result Type Result Value Relevant Referen ce Range Interpretation Date Krt/V 0.00 No Reference Ran ge Provided - January 27, 2024 Krt/V 0.00 No Reference Ran ge Provided - February 19, 2024 Krt/V 0.00 [...] - May 13, 2024 spKt/V (Daugirdas II) 2.14 No Reference Range Provided - June 17, 2024 eKt/V ([place]) 1.77 No Reference Range Provided - June 17, 2024 wstdKt/V 2.7 No Reference Ran ge Provided - June 17, 2024 wstdKt/V without residual 2.7 No Reference Range Provided - June 17, 2024 Krt/V 0.00 No Reference Ran ge Provided - June 17, 2024 spKt/V Gotch 2.16 No Reference Ran ge Provided - June 17, 2024 wstdKt/V, residual 0.0 No Reference Range Provided - June 17, 2024 Bone/Mineral Result Type Result Value Relevant Referen ce Range Interpretation Date Magnesium 2.0 mg/dL 1.6 - 2.6 mg/dL - September Magnesium 2.1 mg/dL 1.6 - 2.6 mg/dL - December 18, 2023 Vitamin D 25 Hydroxy 15.7 ng/mL 30.0 - 100.0 ng/mL Low December 18, 2023 PTH-Intact, Plasma 362 pg/mL 16 - 80 pg/mL High Jan Magnesium 2.3 mg/dL 1.6 - 2.6 mg/dL - February 112024 PTH-Intact, Plasma 177 pg/mL 16 - 80 pg/mL High Feb ruary 2024 Magnesium 2.2 mg/dL 1.6 - 2.6 mg/dL - March 18, 2024 Ca x P Product 37 0 - 54 - April 15, 2024 Calcium, Total 9.3 mg/dL 8.7 - 10.4 mg/dL - Alfonzo 2024 Phosphorus 4.0 mg/dL 2.6 - 4.5 mg/dL - April 15, 2024 Corrected Ca x P Product 38 0 - 54 - April 15, 2024 PTH-Intact, Plasma 453 pg/mL 16 - 80 pg/mL High Mar ch 2024 PTH-Intact, Plasma 412 pg/mL 16 - 80 pg/mL High May il 2024 Phosphorus 2.8 mg/dL 2.6 - 4.5 mg/dL - May 13, 2024 Calcium, Total 8.7 mg/dL 8.7 - 10.4 mg/dL - Apri l 2024 Ca x P Product 24 0 - May 13, 2024 Corrected Ca x P Product 26 0 - - May 13, 2024 Phosphorus 5.5 mg/dL 2.6 - 4.5 mg/dL High June 17, 025 Ca x P Product 47 0 - 54 - June 17, 20 25 Alkaline Phosphatase 122 U/L 35 - 104 U/L High 2024 Calcium, Total 8.5 mg/dL 8.7 - 10.4 mg/dL Low June 17, 2024 PTH-Intact, Plasma 718 pg/mL 16 - 80 pg/mL High June 17, 2024 Corrected Ca x P Product 50 0 - 54 - June 17, 2024 Magnesium 2.0 mg/dL 1.6 - 2.6 mg/dL - June 17, 025 Liver/Nutrition Result Type Result Value Relevant Reference Range Interpre tation Date eNPCR 1.33 No Reference Ran ge Provided [...] Ran ge Provided - May 13, 2024 Total Protein 7.1 g/dL 6.0 - 8.5 g/dL - June 17, 2024 Albumin (BCG) 3.4 g/dL 3.5 - 5.2 g/dL Low June 17, 2024 eNPCR 1.10 No Reference Ran ge Provided - June 17, 2024 Globulin (Calc) 3.7 g/dL 2.0 - 4.0 g/dL - June A/G Ratio 0.9 1.0 - 2.0 Low June 17, 2024 Trace Elements Result Type Result Value Relevant Reference Range Interpre tation Date Aluminum 11 mcg/L 0 - 10 mcg/L High December 18, 2023 Infectious Diseases Result Type Result Value Relevant Referen ce Range Interpretation Date Hep B Surface Ab (anti-HBs) 14 mIU/mL No Reference Range Provided - December 18, 2023 Hep B Surface Ag (HBsAg) Negative No Reference Range Provided - June 17, 2024 DIALYSIS PRESCRIPTION Conventional Hemodialysis Data Element [...] (mL/min) Dialysate Dialyzer Dialysis Access Meds Admin June 17, 2024 Weight 39.90 kg Weight 37.60 kg 02:46:00 460 2.0 K, 2.5 Ca, 1.0 Mg, 100 Dextrose (G2251) 160nre Optifl ux Blood Pressure-sitting 225/89 mmHg Blood Pressure-sit ting 206/89 mmHg Blood Pressure-standing 225/95 mmHg Blood Pressure-st anding 204/100 mmHg Heart Rate 101 beats per minute Heart Rate 84 beats per minute Respiratory Rate 16 breaths per minute Respiratory Rate 16 breaths per minute Temperature 98.0 deg. F Temperature 98.5 deg. F June 19, 2024 Weight 39.80 kg Weight 37.50 kg 02:47:00 460 2.0 K, 2.5 Ca, 1.0 Mg, 100 Dextrose (G2251) 160nre Optiflux Hemodialysis-AV Fistula-Standard, Left Upper Arm, Brachial Artery to Cephalic Vein Access Placed on March 31, 2018 Clonidine HCl; 0.1mg,Oral Heparin Sodium (Porcine) 1,000 Units/mL Systemic; 2000units,Intravenous - push Vitamin D (Calcitriol) Oral; 0.25mcg,Oral Blood Pressure-sitting 244/104 mmHg Blood Pressure-sit ting 183/83 mmHg Blood Pressure-standing 261/110 mmHg Blood Pressure-st anding 181/84 mmHg Heart Rate 111 beats per minute Heart Rate 85 beats per minute Respiratory Rate 16 breaths per minute Respiratory Rate 19 breaths per minute Temperature 98.5 deg. F Temperature 98.2 deg. F June 22, 2024 Weight 38.00 kg Weight 37.60 kg 02:45:00 460 2.0 K, 2.5 Ca, 1.0 Mg, 100 Dextrose (G2251) 160nre Optiflux Hemodialysis-AV Fistula-Standard, Left Upper Arm, Brachial Artery to Cephalic Vein Access Placed on March 31, 2018 Heparin Sodium (Porcine) 1,000 Units/mL Systemic; 2000units,Intravenous - push Heparin Sodium (Porcine) 1,000 Units/mL Systemic; 2000units,Intravenous - push Vitamin D (Calcitriol) Oral; 0.25mcg,Oral Blood Pressure-sitting 196/82 mmHg Blood Pressure-sit ting 150/70 mmHg Blood Pressure-standing 202/81 mmHg Blood Pressure-st anding 132/62 mmHg Heart Rate 97 beats per minute Heart Rate 92 beats per minute Respiratory Rate 24 breaths per minute Respiratory Rate 22 breaths per minute Temperature 98.6 deg. F Temperature 98.1 deg. F
--- OUTSIDE RECORDS SUMMARY | 2024-06-23 16:40 | XMS_ITS | Encounter Summary ---
Author Organization [facility] Address [address] [place] [address] Phone Care Team Providers Care Supervising Producer Name Role Phone Unavailable Primary Care Provider Unavailabl e Reason for Referral * Consult/Test/Treat (Urgent) - New Request Specialty Diagnoses / Procedures Referred By Constantine crump Referred To Contact Ophthalmology / OPHTHALMOLOGY Diagnoses History of cornea transplant Monika Rodriguez MD [address] [facility] [address] [place] [address] Phone: tel: fax: Referral ID Status Reason Start Date Expiration Date V isits Requested Visits Authorized [id number] New Request 06/04/2024 06/04/2025 1 1 Reason for Visit * Reason Comments Fall * Auth/Cert (Routine) Specialty Diagnoses / Procedures Referred By Constantine crump Referred To Contact MEDICINE Diagnoses Syncope, unspecified syncope type Eye trauma from fall; also head and neck trauma Lourdes Cheung MD [address] [place] [address] Phone: tel: fax: [facility] Medicine 1 [address] [facility] [address] [place] [address] Phone: tel: fax: Referral ID Status Reason Start Date Expiration Date Visits Re quested Visits Authorized [id number] 1 Encounter Details Date Type Department Care Team ([facility] Contact Info) Description 06/03/2024 11:58 PM CDT - 06/04/2024 3:49 PM CDT Emergency [facility] Medicine [address] [facility] [address] [place] [address] Lourdes Cheung MD [address] [facility] [address] [place] [address] Monika Rodriguez MD [address] [facility] [place] [address] Syncope, unspecified syncope type Discharge Disposition: Discharged to home or self care Social History Tobacco Use Types Packs/Day Years [...] on file Legal Sex Female 6:32 PM [employer] Gender Identity Not on file Sexual Orientation [...] Mass Index 16.16 06/04/2024 4:30 AM CDT documented in this encounter Discharge Summaries * Paulo Vargas MD - 06/04/2024 3:49 PM CDT [facility] Division of Nephrology Red Renal Service Discharge Dialysis Orders Maricruz Vanegas Date of : 1945 Dialysis Unit: [facility] Primary Inbound Call Center Agent: Dr. Mena . Date of Admission: 06/03/2024 Date of Discharge: 06/04/2024 Discharge Diagnosis: Mechanical fall/left facial laceration Squamous cell cancer of [place] Admission type: [ ] Inpatient [X] Observation [ ] New initiation, new dialysis orders will be faxed. [X] Resume all previous dialysis orders with exception as noted below New Orders (if not applicable put NA): Estimated Dry Weight NA Dialysis Duration NA Dialysis Access NA Antibiotics (dose per dialysis, end date) NA NA Labs to be drawn at dialysis NA Other major changes to dialysis prescription (e.g. Dialysate bath, heparin, blood flow rate, etc) NA Medication changes (also fax the unit a copy of the discharge summary) NA Discharge Medication List as of 06/04/2024 2:53 PM Unchanged Home Medications Details albuterol (ACCUNEB;VENTOLIN) 2.5 mg/3 mL inhalation inhalation solution 2.5 mg (3 mL), Nebulization, Q4H PRN, 3 mL (2.5 mg) by Nebulization route every 4 hours as needed for Wheezing., Historical Med aspirin 81 mg oral chewable tab 81 mg, Oral, DAILY, Take 1 tablet (81 mg) by mouth daily., Historical Med B Yttipmq-L-Txmem Acid (NEPHROCAPS ORAL) 1 capsule, Oral, DAILY AFTERNOON, Take 1 capsule by mouth daily in the afternoon., Historical Med calcium acetate (PHOSLO) 667 mg oral capsule 2,001 mg, Oral, TID WM, Take 3 capsules (2,001 mg) by mouth 3 times daily with meals., Historical Med furosemide (LASIX) 40 mg oral tablet 40 mg, Oral, DAILY, Take 1 tablet (40 mg) by mouth daily., Historical Med glipiZIDE XL 10 mg oral extended release tablet 20 mg, Oral, DAILY, Take 2 tablets (20 mg) by mouthdaily., Historical Med hydrALAZINE (APRESOLINE) 100 mg oral TABS 100 mg, Oral, TID, Take 100 mg by mouth 3 times daily., Historical Med magnesium glycinate 100 mg oral capsule 100 mg, Oral, DAILY, Take 1 capsule (100 mg) by mouth daily., Historical Med methocarbamol (ROBAXIN-500) 500 mg oral TABS 500 mg, Oral, BID PRN, Take 1 tablet (500 mg) by mouthtwice daily as needed (muscle spasm)., Historical Med nicotine (NICOTROL) 7 mg/ 24hr transdermal patch 24 HR 1 patch, Transdermal, DAILY, Apply 1 patch to skin daily., Historical Med NIFEdipine (PROCARIDA XL) 60 mg oral XL tablet 120 mg, Oral, DAILY, Take 120 mg by mouth daily., Historical Med oxyCODONE (ROXICODONE) 5 mg oral tablet 5 mg, Oral, DAILY PRN, Take 1 tablet (5 mg) by mouth daily as needed for Pain., Historical Med polyethylene glycol 3350 (MIRALAX;GLYCOLAX) 17 g oral powder 17 g, Oral, DAILY, Take 1 Tbsp (17 g) by mouth daily., Historical Med pantoprazole (PROTONIX) 40 mg oral tablet 40 mg, Oral, BID, Take 1 tablet (40 mg) by mouth twice daily., Historical Med repaglinide (PRANDIN) 1 mg oral TABS 1 mg, Oral, TID AC, Take 1 mg by mouth 3 times daily before meals., Historical Med sennosides (SENOKOT) 8.6 mg oral tablet Take 1-4 tablets by mouth once daily as needed to achieve 2-3 soft bowel movements daily, Historical MedTake 1-4 tablets by mouth once daily as needed to achieve 2-3 soft bowel movements daily triamcinolone acetonide (KENALOG) 0.1% externally cream Apply topically to affected areas twice daily for no more than 14 days in one location, Historical MedApply topically to affected areas twice daily for no more than 14 days in one location cloNIDine (CATAPRES) 0.3 mg oral TABS 0.3 mg, Oral, BID, Take 0.3 mg by mouth twice daily., Historical Med fluticasone furoate-vilanterol (BREO ELLIPTA) 100-25 mcg/inh inhalation 1 puff, Inhalation, DAILY, Inhale 1 puff daily., Historical Med losartan (COZAAR) 50 mg oral TABS 50 mg, Oral, BID, Take 1 tablet (50 mg) by mouth twice daily., Historical Med spironolactone (ALDACTONE) 25 mg oral TABS 25 mg, Oral, DAILY, Take 1 tablet (25 mg) by mouth daily., Historical Med umeclidinium bromide (INCRUSE ELLIPTA) 62.5 mcg/ACT inhalation 1 puff, Inhalation, DAILY, Inhale 1 puff daily., Historical Med albuterol (VENTOLIN HFA;PROVENTIL HFA;PROAIR) 108 (90 BASE) mcg/act inhalation inhaler 2 puff, Inhalation, Q6H PRN, Inhale 2 puffs every 6 hours as needed., Historical Med Name of physician completing this form: Paulo Vargas MD, 06/05/2024 4:21 PM Cosigned by Monika Rodriguez MD at 06/05/2024 5:51 PM CDT * Monika Rodriguez MD - 06/04/2024 2:22 PM CDT Images from the original note were not included. RENAL DISCHARGE SUMMARY - PGY 1 Maricruz Vanegas : 1945 Sex: female Date of Admission: 06/03/2024 Date of Discharge: 06/04/2024 Disposition: Home/Self Care Attending Provider: Dr. Monika Rodriguez Primary Care Physician: No primary care provider on file. Patient Summary and Brief Hospital Course: Maricruz Vanegas is a 78 y.o. female, with medical history significant for hypertension, T2DM, COPD, ESRD on iHD MWF, chronic pain syndrome, and recent diagnosis of left upper lobe squamous cell carcinoma, who presented from OSH 06/04/23 after witnessed fall with facial laceration. There was no lossof consciousness. Patient denied preceding symptoms. Low concern for syncope. She did sustain laceration to left side of face, surrounding left eye, which was repaired. Imaging studies were largely unremarkable. CT Facial Bones demonstrated left periorbital hematoma and possible foreign bodies. Opht halmology was consulted. There were no apparent foreign bodies and no additional concerns; plan is for outpatient follow up. Trauma Surgery evaluated patient and had no additional concerns nor further recommendations, other than removal of sutures in 1-2 weeks. Patient was feeling comfortable so was deemed appropriate for discharge to home with close follow-up, as detailed below. 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 She needs PET scan, per inpatient Oncology notes during recent hospitalization Patient understands importance of establishing care with Oncology for ongoing evaluation and management Admission/Discharge Diagnoses: Witnessed fall (appears mechanical in nature) Low concern for syncope 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 Right upper lobe lung mass Multiple left-sided facial lacerations End-stage renal disease on intermittent hemodialysis Saturday, Saturday, and Saturday Chronic obstructive pulmonary disease, without acute exacerbation Hypertension Type II diabetes mellitus Consultations/Procedures: Trauma Surgery Performed tertiary trauma examination Ophthalmology Evaluated left eye given trauma and imaging findings Physical Therapy and Occupational Therapy Evaluated functional status; determined patient appropriate for discharge to home HPI: Please see H&P from 06/03/24 Past Medical History: Hypertension Hyperlipidemia Type II diabetes mellitus End-stage renal disease Chronic pain syndrome 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 Incident was witnessed, and there was no loss of consciousness nor seizure-like activity. She states she was walking too fast and was unable to brace her fall. She denies preceding symptoms, including shortness of breath, chest pain, palpitations, dizziness, and lightheadedness. She sustained complex laceration to left side of face and was complaining of headache and neck pain after fall. She initially presented to outside hospital where CT scans of the head, facial bones, and cervical spine were obtained. There was no acute intracranial pathology and no fracture or subluxation of cervical vertebrae. She did have evidence of left periorbital hematoma and concern for foreign bodies. She was transferred to this facility for additional workup, which was largely unremarkable. Laceration was repaired in the emergency department. Laboratories were unremarkable. Fall seems mechanical in nature based upon history. Low concern for syncope at this point in time given absence of preceding symptoms and no loss of consciousness with witnessed event. ECG was nonischemic and did not demonstrate any arrhythmias. There were no reports of postictal state. Head CT wasnegative for acute intracranial pathology. Transthoracic echocardiogram was not pursued given low concern for cardiac syncope. Patient was evaluated by ophthalmology and trauma surgery. There were noforeign bodies within eye and no additional concerns from ophthalmology who are recommending outpatient follow-up. Trauma surgery performed tertiary examination, which revealed no additional concerning findings. Physical therapy and Occupational Therapy evaluated patient and deemed her appropriate for discharge to home where she lives with children who provide assistance when needed. Multiple facial lacerations See history above. These were repaired in the emergency department. Sutures appeared clean, dry, and intact upon follow-up examination. Ophthalmology evaluated left eye and had no concerns at this point in time. 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 Biopsy was performed in March,, with pathology results consistent with squamous cell carcinoma. She has not established care with oncology, and further workup is indicated. During last hospitalization, a few days ago, oncology evaluated patient and recommended PET scan and close outpatient follow-up. PET scan has not been performed, and patient has not established care with oncology. Patient has apparently missed appointments and phone calls from oncology center in [place], [place]. She has follow-up appointment with primary care 06/08/2024; hopeful they can help facilitate further workup and follow-up appointment with oncology. Obtain PET scan, per inpatient Oncology note during recent hospitalization Establish with Oncology in [place] Patient has apparently missed appointments in past due to transportation issues Hoping primary care can help facilitate this End-stage renal disease on intermittent hemodialysis Saturday, Saturday, and Saturday Patient has end-stage renal disease secondary to hypertensive nephropathy. Primary residence hall director is Dr. Mena . Dialyzes at [facility] via left upper extremity AV fistula Saturday, Saturday, and Saturday. Last run before hospitalization was 06/03/24. Estimated dry weight is 37.5 kilograms; weight upon presentation was 38.8 kilograms. [employer] medication regimen includes Nephrocaps, Phoslo, and Lasix 40 mg daily. Continue hemodialysis Saturday, Saturday, and Saturday Continue [employer] medications Chronic obstructive pulmonary disease, without acute exacerbation This is chronic. There were no symptoms or signs of acute exacerbation during this hospitalization.[employer] medications include albuterol, Breo Ellipta, and Incruse Ellipta Continue [employer] medications Hypertension This is chronic and appears fairly poorly controlled. [employer] medications include hydralazine 100 mg 3 times daily, losartan 50 mg twice daily, nifedipine 120 mg daily, clonidine 0.3 mg twice daily, and spironolactone 25 mg daily. Continue [employer] medications Discuss ongoing management with primary care Type II diabetes mellitus This is chronic. [employer] medications include glipizide 20 mg daily and repaglinide 1 mg 3 times daily before meals. Continue [employer] medications Pending Test Results: None Physical Examination: BP (!) 187/65 Pulse 82 Temp 36.4 ??C (97.6 ??F) (Oral) Resp 16 Ht 1.549 m (5' 1) Wt 38.8kg (85 lb 8.6 oz) SpO2 94% BMI 16.16 kg/m?? Estimated body mass index is 16.16 kg/m?? as calculated from the following: Height as of this encounter: 1.549 m (5' 1). Weight as of this encounter: 38.8 kg (85 lb 8.6 oz). Physical Exam Constitutional: General: She is not in acute distress. HENT: Head: Normocephalic. Comments: Laceration to left side of face, surrounding left eye; sutures appears clean, dry, and intact (see Media). Eyes: General: No scleral icterus. Conjunctiva/sclera: Conjunctivae normal. Cardiovascular: Rate and Rhythm: Normal rate and regular rhythm. Pulmonary: Effort: Pulmonary effort is normal. Breath sounds: Wheezing present. Abdominal: General: There is no distension. Palpations: Abdomen is soft. Tenderness: There is no abdominal tenderness. Musculoskeletal: Right lower leg: No edema. Left lower leg: No edema. Skin: General: Skin is warm and dry. Neurological: Mental Status: She is alert and oriented to person, place, and time. Psychiatric: Mood and Affect: Mood normal. Behavior: Behavior normal. Allergies: Allergies Allergen Reactions Atenolol Hives and Itching/Pruritus Hydrochlorothiazide Hives and Itching/Pruritus Lisinopril Hives and Itching/Pruritus Niacin Itching/Pruritus Tetracyclines & Related Hives Planned Discharge Orders: Medication List CONTINUE taking these medications * albuterol 108 (90 BASE) mcg/act inhaler Commonly known as: VENTOLIN HFA;PROVENTIL HFA;PROAIR * albuterol 2.5 mg/3 mL inhalation solution Commonly known as: ACCUNEB;VENTOLIN aspirin 81 mg Chewable tab Breo Ellipta 100-25 mcg/inh inhalation Generic drug: fluticasone furoate-vilanterol calcium acetate 667 mg Capsule Commonly known as: PHOSLO cloNIDine 0.3 mg Tabs Commonly known as: CATAPRES furosemide 40 mg tablet Commonly known as: LASIX glipiZIDE XL 10 mg extended release tablet hydrALAZINE 100 mg Tabs Commonly known as: APRESOLINE Incruse Ellipta 62.5 MCG/ACT Generic drug: umeclidinium bromide losartan 50 mg Tabs Commonly known as: COZAAR magnesium glycinate 100 mg capsule methocarbamol 500 mg Tabs Commonly known as: ROBAXIN-500 NEPHROCAPS ORAL nicotine 7 mg/ 24hr Patch 24 hr Commonly known as: NICOTROL NIFEdipine 60 mg XL tablet Commonly known as: PROCARIDA XL oxyCODONE 5 mg tablet Commonly known as: ROXICODONE pantoprazole 40 mg tablet Commonly known as: PROTONIX polyethylene glycol 3350 17 g Powder Commonly known as: MIRALAX;GLYCOLAX repaglinide 1 mg Tabs Commonly known as: PRANDIN sennosides 8.6 mg tablet Commonly known as: SENOKOT spironolactone 25 mg Tabs Commonly known as: ALDACTONE triamcinolone acetonide 0.1% cream Commonly known as: KENALOG * This list has 2 medication(s) that are the same as other medications prescribed for you. Read thedirections carefully, and ask your doctor or other care provider to review them with you. Discharge Procedure Orders Referral to Ophthalmology/Optometry Referral Priority: Urgent Referral Type: Consult/Test/Treat Requested Specialty: Ophthalmology Number of Visits Requested: 1 Expiration Date: 06/04/25 Why you were at the hospital: Order Comments: You were in the hospital for evaluation of a fall. You sustained laceration to leftside of face. This was repaired. Sutures should be removed in 1-2 weeks. Additional workup, including laboratories and imaging studies, was unremarkable. Ophthalmology evaluated eye and had no concerns. Trauma Surgery did thorough evaluation and had no concerns. When should I be concerned? Order Comments: Go to the Emergency Department or call 911 IF: -- you feel you are getting worse or having an increase in problems -- you are more short of breath than usual -- your blood pressure top number is more than 200 Please keep the appointments that have already been made. Order Comments: -- Please keep the appointments that have already been made. Please schedule an appointment outside of [facility]: Order Comments: Please contact [facility] to schedule an appointment as soon as possible for ongoing evaluation and management of recently diagnosed lung cancer. Up as tolerated activity level. Order Comments: UP TOLERATED -- Rest is an important part of healing. Save your energy by spreading out activities that make youtired. Rest as needed. -- Slowly increase your level of activity. Renal diet Order Comments: -- Avoid bananas, oranges, tomatoes, melons and potatoes. -- Limit all dairy foods to ?? cup or 4 ounces each day. -- Include a protein source with each meal. Best sources are: beef, pork, fish, chicken, turkey or eggs. -- Do not add salt to your food. Try herb and spice blends such as Mrs. Flaherty??. Limit foods canned and processed with salt. Choose fresh or frozen foods when you can. Take your medicine and plan ahead for refills Order Comments: - It is important that you take the medicines on your list. Work with your health care provider or pharmacist if you have questions about your medicine. - Plan ahead and use the Refill Line so that you don't run out of your medicine. It may take time to review your chart and get the medicine ordered. Discussed diagnosis and treatment plan with the patient. Patient verbalized understanding of condition and treatment plan. Planned readmission in next 30 days: No Pollo Cárdenas DO, 06/04/2024 2:23 PM I saw and evaluated the patient discharge date/time,06/04/2024 3:49 PM. I discussed with the resident and agree with the resident's findings and plan documented in the resident's note from above. Any revisions by me are documented. I have personally spent less than 30 minutes in discharge coordination for this patient. Monika Rodriguez MD, 06/04/2024 3:51 PM documented in this encounter Medications at Time of Discharge albuterol (VENTOLIN HFA;PROVENTIL HFA;PROAIR) 108 (90 BASE) mcg/act inhalation inhaler Inhale 2 puffs every 6 hours as needed. albuterol (ACCUNEB;VENTOLIN ) 2.5 mg/3 mL inhalation inhalation solution 3 mL (2.5 mg) by Nebulization route every 4 hours as needed for Wheezing. aspirin 81 mg oral chewable tab Take 1 tablet (81 mg) by mouth daily. B Zbrbdlk-T-Fwwhv Acid (NEPHROCAPS ORAL) Take 1 capsule by mouth daily in the afternoon. calcium acetate (PHOSLO) 667 mg oral capsule Take 3 capsules (2,001 mg) by mouth 3 times daily with meals. furosemide (LASIX) 40 mg oral tablet Take 1 tablet (40 mg) by mouth daily. glipiZIDE XL 10 mg oral extended release tablet Take 2 tablets (20 mg) by mouth daily. hydrALAZINE (APRESOLINE) 100 mg oral TABS Take 100 mg by mouth 3 times daily. magnesium glycinate 100 mg oral capsule Take 1 capsule (100 mg) by mouth daily. methocarbamol (ROBAXIN-500) 500 mg oral TABS Take 1 tablet (500 mg) by mouth twice daily as needed (muscle spasm). nicotine (NICOTROL) 7 mg/ 24hr transdermal patch 24 HR Apply 1 patch to skin daily. NIFEdipine (PROCARIDA XL) 60 mg oral XL tablet Take 120 mg by mouth daily. oxyCODONE (ROXICODONE) 5 mg oral tablet Take 1 tablet (5 mg) by mouth daily as needed for Pain. polyethylene glycol 3350 (MIRALAX;GLYCOLAX ) 17 g oral powder Take 1 Tbsp (17 g) by mouth daily. pantoprazole (PROTONIX) 40 mg oral tablet Take 1 tablet (40 mg) by mouth twice daily. repaglinide (PRANDIN) 1 mg oral TABS Take 1 mg by mouth 3 times daily before meals. sennosides (SENOKOT) 8.6 mg oral tablet Take 1-4 tablets by mouth once daily as needed to achieve 2-3 soft bowel movements daily triamcinolone acetonide (KENALOG) 0.1% externally cream Apply topically to affected areas twice daily for no more than 14 days in one location cloNIDine (CATAPRES) 0.3 mg oral TABS Take 0.3 mg by mouth twice daily. fluticasone furoate-vilantero l (BREO ELLIPTA) 100-25 mcg/inh inhalation Inhale 1 puff daily. losartan (COZAAR) 50 mg oral TABS Take 1 tablet (50 mg) by mouth twice daily. spironolactone (ALDACTONE) 25 mg oral TABS Take 1 tablet (25 mg) by mouth daily. umeclidinium bromide (INCRUSE ELLIPTA) 62.5 mcg/ACT inhalation Inhale 1 puff daily. documented as of this encounter Progress Notes * Jenny Martinez CMA - 06/04/2024 3:00 PM CDT Transportation set for patient as follows: Date and time () of patient departure: 06/04/2024 @1530 Destination: [address] [place] [id number] Type of ride:Taxi reference number is [id number] [address] [place] [address], Transportation vendor of ride ([employer] [phone] If this ride needs to be rescheduled or cancelled, inpatient staff should call this vendor directlyto reschedule or cancel, and document this in the chart. If the ride is cancelled, please also cancel the order in the chart. Nurses will receive a phone call if the ride is arriving in 120 minutes or less. Social Workers and Clinical Coordinators will be informed via a [employer] page. PCS form was completed in Progress Notes and is ready to be signed and routed to vendor by requestor(for stretcher rides only). Jenny Martinez CMA, 06/04/2024 3:02 PM Patient name: Maricruz Vanegas Date of : 1945 Patient Admitting diagnosis: Patient Active Problem List Diagnosis Syncope, unspecified syncope type Attending provider: Monika Rodriguez MD Insurance: [facility] Secondary insurance: N/A Height: Height: 154.9 cm (5' 1) Weight: Weight: 38.8 kg (85 lb 8.6 oz) documented in this encounter H&P Notes * Monika Rodriguez MD - 06/04/2024 3:54 AM CDT MEDICINE HISTORY AND PHYSICAL Maricruz Vanegas : 1945 Sex: female Patient Summary: Maricruz Vanegas is a 78 y.o. female with PMH ESRD on HD, COPD, T2DM, new BL lung masses, chronic pain syndrome, who was admitted 06/04/2024 1 day after hospital discharge when she was witnessed falling just after exiting a gas station. Being worked up for syncope, possible BL lung malignancy. Assessment and Plan: Witnessed Syncope Patient's report of the incident is perplexing. She denies dizziness, LOC, darkening/vignette of vision, chest pain, palpitations. The only symptoms she is adamant about is an impulse to walk forwardfast It's like I had no control of it. She denies gait instability or tripping. Unclear her subjective expereince reflects a transient vagal alteration vs a hemodynamic change. Given lack of LOC seizure does not seem likely. On the other hand she fell forward (confirmed by witnesses) without guarding her face from trauma. ECG does not appear concerning and arrythmogenic syncope would not be consistent with her description of the event. Something like PRES (given her htn) also seems unlikely as she was never post-ictal, did not endorse headache or visual changes. Hypovolemia could be possible given she had dialyzed recently with a significant challenge to dry weight, BSUS shows a collapsible IVC, and hyperdynamic LV. Finally I note that she was discharged on a cocktail of medications likely to address her pain syndrome including robaxin, clonidine, oxycodone together which could exacerbate fall risk.Given the lack of clear etiology I do think a neurology consult is warranted. -TTE -Neurology consult -Telemetry -Continuous oximetry -PT/OT -Orthostatics MARLIN lung mass - possible SCC RUL 1.1cm lung nodule Possible obstructive large airway 2/2 MARLIN lung mass Unable to fully access imaging hx, however 04/27/2024 CT-PE performed for chest pain references 12/2022 CXR and 11/2022 CT and notes a RUL mass 3.1cm in size and MARLIN collapse. Subsequent PET 05/21/2024w/ significant FDG uptake in a MARLIN mass and a lobululated RUL mass. There are also two sub-centimeter R hilar nodes. CT and MRI brain disclose no suspicious lesions. A CT neck of the soft tissues does have a small 7mm nodule in the L oropharengeal mucosal space which ws not noted on the PET. On physical exam she has notable inspiratory stridor with a distinct pitch change during the cycle suggesting some level of airway obstruction, possibly with a mobile component or collapse. All together these masses are concerning for a rapidly progressive neoplasm. Biopsy has not been performed. Subsequent admit on 05/26 for hypertensive encephalopathy, suspected postobstructive pna, that improved with antihypertensive treatment and antibiotics. Plan on discharge was to follow-up with oncology outpatient. At this point I think these masses are quite concerning and warrant expedited inpatient workup. -CT Chest contrast -Heme-onc consult in AM -LFT Multiple left side facial lacerations Lacerations repaired in ED. No fractures noted in ED read of outside cervical spine and CT head. However a C-collar has been placed. -Surgery consult for tertiary examination and C-spine clearance -Pain control with scheduled APAP + Oxycodone 5mg q4h PRN ESRD on HD Dialyses at [facility] via [facility]. Primary residence hall director is Dr. Mena. EDW is 37.5kg but was challenged on 06/03 down to 34.3 kg -No indication for urgent dialysis COPD -Not in acute exacerbation -Continuous oximetry -Duonebs prn HTN Hx hypertensive encephalopathy Most recent note from [facility] with a HTN plan. On physical exam patient does appear fatigued. Per collateral from family she has not appeared or sounded like herself. Performed BSUS and noted very small IVC collapsible with respiration. She dialyzed yesterday. She notes she doesnot drink much water and drinks more soda than water. Given the volume status I will hold off on diuresis tonight. 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 female with PMH ESRD on HD, COPD, T2DM, new BL lung masses, chronic pain syndrome, who was admitted 06/04/2024 1 day after hospital discharge when she was witnessed falling just after exiting a gas station. No seizure-like activity was noted. She denies LOC but did not guard her face from the fall. She also denies dizziness, chest pain, abdominal pain, dysuria, headache, vision changes, nausea. She does endorse intermittent respiratory distress that resolves on its own. She was recently hospitalized in April for chest pain workup and discharged with planned follow-up with outpatient Heme-Onc as BL lung lesions were noted that could be malignancy. However had to come in to the ED again for encephalopathy felt to be 2/2 HTN. The day after discharge her incident occurred. Links to update patient chart: Medical History, Surgical History, Family History, Psychosocial History, Medication List, Allergies, Code Status, LDA & Wounds Objective: Vitals: 06/04/24 0341 BP: 133/61 Pulse: 69 Resp: 17 Temp: SpO2: 95% Physical Exam Constitutional: General: She is not in acute distress. Appearance: She is not diaphoretic. HENT: Head: Comments: Multiple disfiguring lacerations across the left upper and lower face Eyes: Extraocular Movements: Extraocular movements intact. Cardiovascular: Rate and Rhythm: Normal rate and regular rhythm. Pulmonary: Effort: Pulmonary effort is normal. Comments: Notable inspiratory wheezing/stridor with distinct sharp pitch change during the inspiratory pahse Abdominal: General: Abdomen is flat. Palpations: Abdomen is soft. Musculoskeletal: Right lower leg: No edema. Left lower leg: No edema. Skin: General: Skin is warm and dry. Neurological: Mental Status: She is alert and oriented to person, place, and time. PCP: No primary care provider on file. Heather Campuzano MD, 06/04/2024 6:20 AM FACULTY NOTE I saw and evaluated the patient today, 06/04/2024. I discussed with the resident and agree with the resident???s findings and plan documented in the resident???s note from above. Any revisions by me are documented. Complex patient with multiple physicians and hospitals involved. Appeared to have a mechanical fall (states she was rushing to get in and out of the store for the person who was giving her a ride) so she could get home after being discharged from the hospital yesterday. Will have ophthalmology see her, but otherwise cleared by trauma (sutures in place). Normally gets care in [place] with Dr. Schneider and HD with Dr. Mena. Has primary physician follow up next week. Know lung ca ncer which has been biopsied (squamous cell CA). Per notes appeared they wanted a PET and follow upwith oncology. She prefers to follow up with oncology in [place]. Overall feeling fairly well and would like to go home. We will review follow up plan and await ophthalmology consult. Up walking in the halls with PT and states she is fine if she does not try to walk too fast. Monika Rodriguez MD, 06/04/2024 3:14 PM documented in this encounter Procedure Notes * Darline Ruff MD - 06/04/2024 4:51 AM CDTAssociated Order(s): Laceration Repair Laceration Repair Performed by: Darline Ruff MD Authorized by: Lourdes Cheung MD Consent: Consent obtained: Verbal Consent given by: Patient Risks discussed: Infection, pain, need for additional repair, poor wound healing, poor cosmetic result and retained foreign body Holland protocol: Procedure explained and questions answered to [...] her trauma. Upon completion of repair, she wasable to open and close her eye completely without difficulty. Darline Ruff MD, 06/04/2024 4:47 AM Cosigned by Lourdes Cheung MD at 06/13/2024 1:18 PM CDT Associated attestation - Lourdes Cheung MD - 06/13/2024 1:18 PM CDT I was present for the entire procedure. Lourdes Cheung MD, 06/13/2024 1:18 PM * Darline Ruff MD - 06/04/2024 3:48 AM CDTAssociated Order(s): Laceration Repair Laceration Repair Performed by: Darline Ruff MD Authorized by: Lourdes Cheung MD Consent: Consent obtained: Verbal Consent given by: Patient Risks discussed: Infection, pain, need for additional repair, poor wound healing, poor cosmetic result and retained foreign body Holland protocol: Procedure explained and questions answered to [...] there will likely be asymmetry and scarring. Darline Ruff MD, 06/04/2024 3:48 AM Cosigned by Lourdes Cheung MD at 06/13/2024 1:18 PM CDT Associated attestation - Lourdes Cheung MD - 06/13/2024 1:18 PM CDT I was present for the entire procedure. Lourdes Cheung MD, 06/13/2024 1:18 PM documented in this encounter Consult Notes * Connie Thompson, PharmD - 06/04/2024 3:41 PM CDTAssociated Order(s): DISCHARGE MED REC FINAL REVIEW BY PHARMACY PHARMACY DISCHARGE NOTE Maricruz Vanegas : 1945 Sex: female Pharmacy service was consulted for review of patient's discharge medications. Assessment: Pertinent points to note: -- No medication changes I have reviewed the patient's medications for discharge and have discussed the necessary changes with the provider. Changes have been made and medication list updated and complete. Please page with any questions. Planned discharge medications are: Medication List Medications Indications albuterol 108 (90 BASE) mcg/act inhaler Commonly known as: VENTOLIN HFA;PROVENTIL HFA;PROAIR Inhale 2 puffs every 6 hours as needed. albuterol 2.5 mg/3 mL inhalation solution Commonly known as: ACCUNEB;VENTOLIN 3 mL (2.5 mg) by Nebulization route every 4 hours as needed for Wheezing. aspirin 81 mg Chewable tab Take 1 tablet (81 mg) by mouth daily. Breo Ellipta 100-25 mcg/inh inhalation Generic drug: fluticasone furoate-vilanterol Inhale 1 puff daily. calcium acetate 667 mg Capsule Commonly known as: PHOSLO Take 3 capsules (2,001 mg) by mouth 3 times daily with meals. cloNIDine 0.3 mg Tabs Commonly known as: CATAPRES Take 0.3 mg by mouth twice daily. furosemide 40 mg tablet Commonly known as: LASIX Take 1 tablet (40 mg) by mouth daily. glipiZIDE XL 10 mg extended release tablet Take 2 tablets (20 mg) by mouth daily. hydrALAZINE 100 mg Tabs Commonly known as: APRESOLINE Take 100 mg by mouth 3 times daily. Incruse Ellipta 62.5 MCG/ACT Generic drug: umeclidinium bromide Inhale 1 puff daily. losartan 50 mg Tabs Commonly known as: COZAAR Take 1 tablet (50 mg) by mouth twice daily. magnesium glycinate 100 mg capsule Take 1 capsule (100 mg) by mouth daily. methocarbamol 500 mg Tabs Commonly known as: ROBAXIN-500 Take 1 tablet (500 mg) by mouth twice daily as needed (muscle spasm). NEPHROCAPS ORAL Take 1 capsule by mouth daily in the afternoon. nicotine 7 mg/ 24hr Patch 24 hr Commonly known as: NICOTROL Apply 1 patch to skin daily. NIFEdipine 60 mg XL tablet Commonly known as: PROCARIDA XL Take 120 mg by mouth daily. oxyCODONE 5 mg tablet Commonly known as: ROXICODONE Take 1 tablet (5 mg) by mouth daily as needed for Pain. pantoprazole 40 mg tablet Commonly known as: PROTONIX Take 1 tablet (40 mg) by mouth twice daily. polyethylene glycol 3350 17 g Powder Commonly known as: MIRALAX;GLYCOLAX Take 1 Tbsp (17 g) by mouth daily. repaglinide 1 mg Tabs Commonly known as: PRANDIN Take 1 mg by mouth 3 times daily before meals. sennosides 8.6 mg tablet Commonly known as: SENOKOT Take 1-4 tablets by mouth once daily as needed to achieve 2-3 soft bowel movements daily spironolactone 25 mg Tabs Commonly known as: ALDACTONE Take 1 tablet (25 mg) by mouth daily. triamcinolone acetonide 0.1% cream Commonly known as: KENALOG Apply topically to affected areas twice daily for no more than 14 days in one location Connie Thompson PharmD 06/04/2024 15:41 For questions regarding this note, please contact pharmacist on service at PharmD Nephrology & OB/L&D/Knitted Cloth Examiner ([facility]) or [phone]. If no response within needed timeframe, please contact central pharmacy via phone at [phone]. * Yolette Mcfarlane OTR/L - 06/04/2024 2:43 PM CDT OCCUPATIONAL THERAPY ACUTE INITIAL EVALUATION Maricruz Vanegas 06/04/2024 OT Discharge Recommendations Discharge Recommendations: Safe for discharge to home/community/prior residence. Post Discharge Follow-up: No OT follow-up needs after discharge Equipment Recommended: None OT In-patient follow-up / recommended referrals: D/C skilled OT services as patient appears to be at baseline Patient Name: Maricruz Vanegas : 1945 Age: 78 y.o. Hospital Admit date: 06/03/2024 Today's Date: 06/04/2024 Occupational Profile Medical History relevant to OT referral: Primary Diagnosis: Active Problems: Syncope, unspecified syncope type Resolved Problems: * No resolved hospital problems. * Treatment Diagnosis: Need for assessment of motor function and cognition related to ADL's / IADL's to ensure safe DC planning. Restrictions/Precautions: Activity Level: Up Ad Tracy General Precautions: High falls risk Hospital Course: See MD notes Past Medical History No past medical history on file. 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 The patient scored: 8. Errors included: : Pt was unable to report months of the year in reverse order Pt recalled 3 of 5 parts of a name and address after a brief delay Norms are as follows: Normal to Minimal impairment = 0 - 8 Moderate impairment = 9 - 19 Severe impairment = 20 - 28 Delirium assessment: Confusion Assessment Method (CAM) Acute onset OR fluctuating course: No CAM result: Negative Delirium prevention / intervention appears indicated? No. Insight: Pt demonstrates insight into current condition and related safety considerations - Yes Problem solving: Pt able to complete basic functional problem solving - Yes Interdisciplinary Communication: RN: updated after session PT: handoff Barriers to Learning: none identified Rehab Potential: good ASSESSMENT: Patient admitted after fall; has left face abrasions, with a repaired laceration and hematomas. Participates in cognition screening (full results above) with minimal impairment noted. Demonstrates independence with BADLs and functional mobility. No acute OT needs at this time. (See box at the top of note for additional information) Impairments: This patient demonstrates impairments in the following: No impairments identified Performance Deficits / Activity Limitations: The impairments listed above affect the patient's ability to safely and independently engage in the following occupations : No performance deficits/activity limitations identified PLAN: See box at top of note for additional information. Total treatment time: 15 minutes OT interventions and time spent on each: Eval: 15 minutes Therapist: DONALD Dixon Pager: [facility] * Case Alvarez MD - 06/04/2024 10:45 AM CDTAssociated Order(s): CONSULT TO OPHTHALMOLOGY Ophthalmology CONSULT - PGY 2 Maricruz Vanegas : 1945 Sex: female PATIENT SUMMARY: 78 y.o. female who presents after a syncopal fall with facial lacerations. I was asked to see this patient by trauma surgery regarding concern for conjunctival foreign body on imaging. ASSESSMENT AND PLAN: Concern for conjunctival foreign body, left eye Band keratopathy, left eye Suspect that hyperdensities observed on CT scan represented band keratopathy. Patient has an opacified cornea in the left eye with band keratopathy and longstanding LP vision. No conj foreign bodies noted on examination - No acute intervention Facial lacerations - Please apply erythromycin ointment to sutured facial lacerations three times daily for one week. CHIEF COMPLAINT: Fall HISTORY OF PRESENT ILLNESS: Ms. Vanegas is a 78 y.o. female who presents after a syncopal fall ROS: Per HPI PAST MEDICAL HISTORY: 1. HTN 2. T2DM 3. ESRD on HD 4. COPD 5. Lung cancer PAST OCULAR HISTORY: Cornea transplant in 2016 at [facility] Cataract surgery in right eye a long time ago L eye blindness - since 2017 FAMILY HISTORY: AMD: No Glaucoma: No SOCIAL HISTORY: Tobacco: Former, 60 pack year history EXAM Mental Status: Alert and Oriented x 3, mood: Normal, affect: Normal Basic Eye Exam: Base Eye Exam Visual Acuity (Snellen - Linear) Right Left Near cc 20/25 LP Pupils Unable to evaluate, miotic due to medications Slit Lamp and Fundus Exam External Exam Right Left External Normal Sutured lacerations to L brow, L upper cheek and left upper lid, crusted blood along left brow and left upper cheek Slit Lamp Exam Right Left Lids/Lashes Normal Sutured laceration left upper eyelid Conjunctiva/Sclera White and quiet 1+ inferotemporal injection Cornea Clear Opaque cornea with band keratopathy, PK graft in place (not dehisced), no retained foreign bodies Anterior Chamber Deep and quiet No view Iris Round and reactive No view Lens PCIOL No view REVIEW OF LABORATORY, PATHOLOGY, AND RADIOLOGY DATA: Lab results: Reviewed Personal Review of Imaging results: CT head 06/04: No acute intracranial pathology. Left periorbital hematoma without evidence for underlying bone fracture. Subtle punctate hyperdensities in the left orbit preseptal soft tissues and along the anterior left globe, nonspecific but may represent conjunctival foreign bodies. Discussed with staff MD Antonio Flores Jared B, MD, 06/04/2024 5:43 PM Cosigned by Jonathon Bonds MD at 06/14/2024 9:38 AM CDT Associated attestation - Jonathon Bonds MD - 06/14/2024 9:38 AM CDT FACULTY NOTE I saw and evaluated the patient with the resident. I discussed with the resident and agree with theresident???s findings and plan documented in the resident???s note from above. Any revisions by me are documented. Jonathon Bonds MD, 06/14/2024 9:38 AM * Mikki Gonzales, PT - 06/04/2024 10:25 AM CDT Images from the original note were not included. PHYSICAL THERAPY INPATIENT ACUTE EVALUATION Maricruz Vanegas was seen 06/04/2024 for a Physical Therapy Evaluation. PT Discharge Recommendations Discharge Recommendations: Safe for discharge to home/community/prior residence Barriers to discharge to home/community: None - Patient is safe to DC from PT standpoint If discharging to home, would need: No physical assistance needed Post discharge follow-up: Equipment Status: NA - No equipment needed PT Equipment Recommended: PM&R Recommended: DIAGNOSIS Patient Active Problem List Diagnosis Syncope, unspecified syncope type PT Treatment Diagnosis: Lung Cancer PRECAUTIONS Falls Manager Er Used: None needed ACTIVITY Up ad Tracy Physical Therapy Orders: Orders Placed This Encounter Procedures PT Evaluation and Treatment Standing Status: Standing Number of Occurrences: 1 Reasons for eval?: As Per Dx OK for out of bed activity? (Update Activity Order): Yes HISTORY Pertinent History: Maricruz Vanegas is a 78 y.o. female with PMH ESRD on HD, COPD, T2DM, new BL lung masses, chronic pain syndrome, who was admitted 06/04/2024 1 day after hospital discharge when she was witnessed falling just after exiting a gas station. Being worked up for syncope, possible BL lung malignancy. Assessment and Plan: Witnessed Syncope Patient's report of the incident is perplexing. She denies dizziness, LOC, darkening/vignette of vision, chest pain, palpitations. The only symptoms she is adamant about is an impulse to walk forwardfast It's like I had no control of it. She denies gait instability or tripping. Unclear her subjective expereince reflects a transient vagal alteration vs a hemodynamic change. Given lack of LOC seizure does not seem likely. On the other hand she fell forward (confirmed by witnesses) without guarding her face from trauma. ECG does not appear concerning and arrythmogenic syncope would not be consistent with her description of the event. Something like PRES (given her htn) also seems unlikely as she was never post-ictal, did not endorse headache or visual changes. Hypovolemia could be possible given she had dialyzed recently with a significant challenge to dry weight, BSUS shows a collapsible IVC, and hyperdynamic LV. Finally I note that she was discharged on a cocktail of medications likely to address her pain syndrome including robaxin, clonidine, oxycodone together which could exacerbate fall risk.Given the lack of clear etiology I do think a neurology consult is warranted. -TTE -Neurology consult -Telemetry -Continuous oximetry -PT/OT -Orthostatics MARLIN lung mass - possible SCC RUL 1.1cm lung nodule Possible obstructive large airway 2/2 MARLIN lung mass Unable to fully access imaging hx, however 04/27/2024 CT-PE performed for chest pain references 12/2022 CXR and 11/2022 CT and notes a RUL mass 3.1cm in size and MARLIN collapse. Subsequent PET 05/21/2024w/ significant FDG uptake in a MARLIN mass and a lobululated RUL mass. There are also two sub-centimeter R hilar nodes. CT and MRI brain disclose no suspicious lesions. A CT neck of the soft tissues does have a small 7mm nodule in the L oropharengeal mucosal space which ws not noted on the PET. On physical exam she has notable inspiratory stridor with a distinct pitch change during the cycle suggesting some level of airway obstruction, possibly with a mobile component or collapse. All together these masses are concerning for a rapidly progressive neoplasm. Biopsy has not been performed. Subsequent admit on 05/26 for hypertensive encephalopathy, suspected postobstructive pna, that improved with antihypertensive treatment and antibiotics. Plan on discharge was to follow-up with oncology outpatient. At this point I think these masses are quite concerning and warrant expedited inpatient workup. -CT Chest contrast -Heme-onc consult in AM -LFT Multiple left side facial lacerations Lacerations repaired in ED. No fractures noted in ED read of outside cervical spine and CT head. However a C-collar has been placed. -Surgery consult for tertiary examination and C-spine clearance -Pain control with scheduled APAP + Oxycodone 5mg q4h PRN ESRD on HD Dialyses at [facility] via [facility]. Primary residence hall director is Dr. Mena. EDW is 37.5kg but was challenged on 06/03 down to 34.3 kg -No indication for urgent dialysis COPD -Not in acute exacerbation -Continuous oximetry -Duonebs prn HTN Hx hypertensive encephalopathy Most recent note from [facility] with a HTN plan. On physical exam patient does appear fatigued. Per collateral from family she has not appeared or sounded like herself. Performed BSUS and noted very small IVC collapsible with respiration. She dialyzed yesterday. She notes she doesnot drink much water and drinks more soda than water. Given the volume status I will hold off on diuresis tonight. 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 female with PMH ESRD on HD, COPD, T2DM, new BL lung masses, chronic pain syndrome, who was admitted 06/04/2024 1 day after hospital discharge when she was witnessed falling just after exiting a gas station. No seizure-like activity was noted. She denies LOC but did not guard her face from the fall. She also denies dizziness, chest pain, abdominal pain, dysuria, headache, vision changes, nausea. She does endorse intermittent respiratory distress that resolves on its own. She was recently hospitalized in April for chest pain workup and discharged with planned follow-up with outpatient Heme-Onc as BL lung lesions were noted that could be malignancy. However had to come in to the ED again for encephalopathy felt to be 2/2 HTN. The day after discharge her incident occurred. Medical History No past medical history on file. SOCIAL HISTORY Information gathered from: Patient and Chart Review Home: House Prior level of function: independent Baseline Ambulation: Limited community ambulation Assist available at home: Yes Stairs required at home: Outside - how many? 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 SUBJECTIVE Patient's Stated Goals: I just want my pepsi on ice Pain: The patient reports no pain Mental Status: Alert and Cooperative Follows Direction: Yes, 2 step OBJECTIVE Initial patient presentation upon PT arrival: Skin: Abrasion: on L eye Braces/Splints: None Lines: Peripheral IV Telemetry Restraints/Fall Management: None Vital Signs: Vital Signs 06/04/2024 1005 06/04/2024 1010 06/04/2024 1015 BP: 163/50 235/55 204/48 Patient Position for BP: Standing After activity Lying Down Pulse: 90 96 75 Room Air Sensation: UE: Light touch: Within Normal Limits: Not tested LE: Light touch: Within Normal Limits: Not tested Motor: ROM/Strength: Right Left Upper Extremity: Range of Motion Grossly WNL Strength Grossly WNL Upper Extremity: Range of Motion Grossly WNL Strength Grossly WNL Lower Extremity: Range of Motion Grossly WNL Strength Grossly WNL Lower Extremity: Range of Motion Grossly WNL Strength Grossly WNL Comment: Transfers & Bed Mobility: Pt is independent in all transfers/bed mobility. Gait Evaluation: Distance: 50 meters Assistive Device: No assistive devices Assistance (Level): Modified [place]- Patient requires brace or prosthesis,special adaptive shoes, cane ,crutches,or walker to walk, or takes more than a reasonable amount of time to complete the activity, or there are safety considerations. Gait Deviations: none Stairs: Number of Stairs: 5 Requires Rail: Yes Level of Assist: Modified [place]- Patient goes up and down stairs but requires a handrail or assistive device; or the activity takes a reasonable amount of time; or there are safety considerations. Stair Pattern: Ascending Step-to and Descending Reciprocal Balance: Sitting: Unsupported: WNL Standing: WNL Dynamic Gait Index Short Form: 1. Gait Level Surface: (3) Normal: Walks 20', no assistive devices, good speed, no evidence for imbalance, normal gait pattern. 2. Change in Gait Speed: (3) Normal: Able to smoothly change walking speed without loss of balance or gait deviation. Shows a significant difference in walking speeds between normal, fast and slow speeds. 3. Gait with Horizontal Head Turns: (3) Normal: Performs head turns smoothly with no change in gait. 4. Gait with Vertical Head Turns: (3) Normal: Performs head turns smoothly with no change in gait. Total: 01/22 Positioning: Patient Positioned in Neutral Alignment Interdisciplinary Communication: RN: Benita: bed alarm on low, BP labile Renal : BP very high, diastolic low, labile, asymptomatic. Treatment rendered: Gait training;Neuromuscular re-education (eval) Total treatment time: 30 minutes ASSESSMENT Maricruz Vanegas is a 78 y.o. female presents to PT s/p fall at [facility] after leaving [facility]. Pt states she was diagnosed with lung cancer last week. However, chart review in Care Everywhere indicates this is more like early April? Pt lives in [place] in a house with 4 family members. 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 She states her son will take over NETWORK ENGINEER work as she has trained him. Pt states she has been losing weight for two years. She denies any pain or shortness of breath. She was recently in [facility] for PNA end of Mar into early April. She was transferred from [facility] to [facility] this week for cancer care but when asked, she does not knowthe results of any tests, nor any future plans for treatment. She fell on the way way home. Only one other instance where she felt like she was walking too fast but she stopped herself before falling. Of note, her BP is not controlled at this time. Per pt, new meds were prescribed but not yet pickedup at pharmacy as she never made it to [place]. Do recommend cognitive assessment given pt's past recent history of confusion and possible treatments were told to her and she doesn't remember? No further PT needed at this time. Patient presents with No Impairments Identified. PLAN Patient is functionally safe for discharge to home today. Recommend no PT for follow up. Participated in goal setting and treatment planning: Patient Agrees with goals and treatment plan: Patient - Yes. Mikki Gonzales PT 06/04/2024 Pager: [facility] documented in this encounter ED Notes * Dejuan Armstrong RN - 06/04/2024 1:01 AM CDT PIV placed under ultrasound guidance. Target vessel compressible and non- pulsatile. Flush visualized with probe proximal to PIV. No edema, pain, or signs of extravasation with flush. * Darline Ruff MD - 06/04/2024 12:04 AM CDT Images from the original note were not included. ED Provider Note Maricruz Vanegas : 1945 Sex: female Patient Arrival Date and Time: 06/03/2024 11:58 PM HPI: Maricruz Vanegas presents to the ED with after a fall. Per report[facility] watched her walk from the doors toward the outside and suddenly fell face first onto the ground. They were able to help her up and assist her into the back of an ambulance. The patient reports that she does not recall any of this happening and does not know why or how she fell. She does not recall any prodromal symptoms. She has pain over her left face Exam: BP (!) 187/65 Pulse 82 Temp 36.4 ??C (97.6 ??F) (Oral) Resp 16 Ht 1.549 m (5' 1) Wt 38.8kg (85 lb 8.6 oz) SpO2 94% BMI 16.16 kg/m?? General: alert, no acute distress, conversational. She is subtly confused and asks whether she is in hospital. No diaphoresis. HEENT: She has signs of facial trauma to her left face, there are a few periorbital lacerations. There is a superficial laceration to her superior forehead. There is a deep laceration just above her left eyebrow that will require a layered repair. There is also another laceration that is horizontal just on her lower left lid. 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 She can raise her left eyebrow and does not appear to have affected facial muscle movement. Heart: warm and well-perfused Lungs: Non-labored breathing Extremities: no LE edema b/l. Abd: Soft, non-distended, non-tender Neuro: moving extremities spontaneously, face symmetric. MDM: Maricruz Vanegas is a 78 y.o. female who presents to the emergency department after syncope with signs of head and facial trauma. Mildly confused on exam, but otherwise vitals within normal limits. On review of records, she has a history of ESRD on dialysis Saturday, chronic pain recent diagnosis of left upper lobe squamous cell carcinoma. CT head, facial bones, C-spine were obtained at an outside hospital and we were able to get these images pulled over. They were independently interpreted by me and showed no evidence of intracranial bleed or facial fractures or C-spine fractures. Pain was treated with Dilaudid. She had quite complex lacerations that were repaired and detailed in separate procedure notes. I recommended that she have the sutures evaluated to be removed in about 5 to 7 days. She is being admitted to medicine for syncope evaluation and trauma is consulted for tertiary exam. She was kept on telemetry. Impression: 1. Syncope, unspecified syncope type 2. History of cornea transplant Darline Ruff MD Emergency Medicine, PGY-3 * Keyonna Butt RN - 06/03/2024 11:59 PM CDT Tx from [facility] with facial trauma from a witnessed fall. Pt was walking out a kwik trip when she had a witnessed fall by EMS. L lower eyelid and above L eye with lac. Pt normally can't see out of L eye normally d/t cataracts so unable to complete visual acuity. Globes ub==intact, no facial fx. Dialysis pt. Vitally stable. Per EMS, pt c/o neck pain and upper extremity pain. Worsening headache. documented in this encounter Miscellaneous Notes * Utilization Management - Lolly Thomas LPN - 06/04/2024 3:49 PM CDT Patient: Maricruz Vanegas D.OArnoldB- 1945 ID: [id number] Ref ID: [id number] Phone#: Peer to peer review- [phone] Provider: Dr Daniel Shi MD [phone] Contact: [facility] DOS: 06/04/2024 Scheduled for: Today 06/09/2024 at 130pm NUTRITIONAL SERVICES HOST Deadline is 06/11/2024 * Utilization Management - Daniel Shi MD - 06/04/2024 3:49 PM CDT 78 y.o. female, with medical history significant for hypertension, T2DM, COPD, ESRD on iHD MWF, chronic pain syndrome, and recent diagnosis of left upper lobe squamous cell carcinoma, who presented from [facility] 06/04/23 after witnessed fall with facial laceration. Seen by trauma surgery and ophtho. No surgery needed. One day stay P2P completed - med director and I agreed that obs was more appropriate Daniel Shi MD, 06/09/2024 3:51 PM * Nursing Assessment - Macrina Funes RN - 06/04/2024 3:32 PM CDT DISCHARGE NOTE D: Patient has been discharged. A: (As documented in the Discharge Planning Flowsheet) Discharge Instructions (AVS): AVS given Discharge clothing/valuables: needs clothing (clothing given) Discharge medications: no prescriptions Home equipment status: no equipment needed;no supplies needed Home equipment/supplies recommended: None Final discharge destination: Home or self care R: The patient understood the AVS. P: Support patient if they call back with questions. Macrina Funes RN, 06/04/2024 3:32 PM * Trauma Tertiary Exam - Rajan Adams MD - 06/04/2024 2:13 PM CDT Images from the original note were not included. 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 Endorses headache and generalized aches and pain but nothing specific. Chronically not able to see out of the left eye. Admit Date & Time: 06/03/2024 11:58 PM No past medical history on file. Mental Status Adequate for Exam: Yes Examiner: Ravinder Friedman APRN, ROSINA, 06/04/2024 2:13 PM Primary Team: [facility] Date/Time Completed: 06/04/2024 13:35 Vital Signs: Patient Vitals for the past 8 hrs: BP Pulse Resp Temp SpO2 06/04/24 1317 (!) 187/65 82 -- -- -- 06/04/24 1226 (!) 177/43 76 16 36.4 ??C (97.6 ??F) 94 % 06/04/24 1015 (!) 204/48 75 -- -- -- 06/04/24 1010 (!) 235/55 96 -- -- -- 06/04/24 1005 (!) 163/50 90 -- -- -- 06/04/24 1000 (!) 170/59 82 -- -- -- 06/04/24 0855 (!) 141/123 68 -- -- -- 06/04/24 0800 (!) 173/59 -- 17 36.3 ??C (97.3 ??F) 100 % 06/04/24 0628 (!) 169/47 -- -- -- -- 06/04/24 0626 (!) 183/49 74 -- -- 93 % Glascow Coma Scale: Motor 6=Obeys commands Verbal 5=Oriented Eye opening 4=Spontaneous TOTAL 15 Neurologic: Alert and oriented, moves all extremities. CN II - XII grossly intact. HEENT Head: Normocephalic. Left face with a large abrasions, with a repaired lacerations and an hematomas. Eyes: Right conjunctiva/corneas normal.Right pupil reactive to light. Unable to assess the left side due to edema/inflammation on the left eye. Chronic Left sided blindness per the patient Ears: Canals without blood or CSF drainage, TMs clear, external ears without lacerations. Nose/sinus: Septum midline, no crepitus with motion. Nares normal, mucosa pink, no sinus drainage and no sinus tenderness. Throat/Oropharynx: Oral mucosa without lacerations, Missing some teeth, tongue without lacerations. Face: Stable mid-face. Endorses pain with palpation on the left side. Left face with a large abrasions, with a repaired lacerations and an hematomas.. Neck: No midline pain with palpation or active ROM. Chest: External Exam - No air, crepitus or pain with palpation. No lacerations, abrasions or contusions. Pulmonary: Wheezing with auscultation. No rales or consolidation. Cardiovascular Heart: Regular rate and rhythm, S1, S2, no murmurs/rubs/gallops. Peripheral vascular: Bilateral carotid, radial, DP and PT pulses are palpable. Gastrointestinal Abdominal: Non distended, no scars, no lacerations. No tenderness or masses, organomegaly or peritoneal signs. Rectal: Not examined. Genitourinary: No lesions present, no injuries Musculoskeletal: Back: Non-tender, spine without tenderness or step-offs Muscular strength intact. Extremities: Upper: Right upper extremity joints: Non-tender to palpation over clavicle, shoulder, arm, elbow, forearm, wrist. Normal ROM shoulder, elbow, wrist without pain. Grossly moving upper extremities without issues. Radial pulse palpable. strength 5/5 Left upper extremity: Non-tender to palpation over clavicle, shoulder, arm, elbow, forearm, wrist. Normal ROM shoulder, elbow, wrist without pain. Grossly moving upper extremities without issues. Radial pulse palpable. strength 5/5 Lower: Right lower extremity : Joints move freely and without pain. Non-tender to palpation over knee, leg, ankle/foot. DP/PT palpable, toes warm/well-perfused. No pain with ROM hip/knee/ankle. Strength 5/5. Left lower extremity: Joints move freely and without pain. Non-tender to palpation over knee, leg, ankle/foot. DP/PT palpable, toes warm/well-perfused. No pain with ROM hip/knee/ankle. Strength 5/5. Pelvic Stability: Stable and no pain with palpation. Skin: Warm and dry without lesions. Lacerations: Left Face ; Ecchymosis: Left Face; Abrasions: Left Face. Imaging Results CT Head: No acute intracranial pathology suspected. Left periorbital hematoma without evidence for underlying facial bone fracture. Subtle punctate hyperdensities in the left orbit preseptal soft tissues and along the anterior left globe, nonspecific but may represent conjunctival foreign bodies. Suspected sequelae of chronic small vessel ischemic disease. CT C-Spine: No acute fracture or traumatic subluxation of the cervical spine. Mild cervical spondylosis without significant spinal canal or neural foraminal narrowing. Mild biapical emphysema. Partially visualized smooth interlobular septal thickening of the left lung apex, as can be seen with interstitial pulmonary edema. In the setting of known left upper lobe mass, cannot definitively exclude neoplastic involvement. CT T-Spine: Not done CT L-Spine: Not done CT CAP: Not done Chest XR: Infiltrate left upper lobe, pneumonia versus hemorrhage. Pelvis XR: No acute osseous abnormality FAST Exam: N/A ED US CARDIAC (06/04/2024 00:56) Wet read Alcohol Screening (for all patients > 11 years of age) No results found for: ETOH JENNIFER: Not screened Alcohol Use: No (screening complete) CAGE Screen: In the past year: Have you felt you should cut down on your drinking? no In the past year: Have people annoyed you by criticizing your drinking? no In the past year: Have you felt bad or guilty about your drinking? no In the past year: Have you had an eye food production supervisor first thing in the morning to steady your nerves? no Interventions Completed: Not indicated Next Step Patient has penetrating trauma (stab, GSW)?: No. Abbreviated Clinical Frailty Score (Screen those age 65 and older) Does the patient engage in moderate to strenuous sports or recreational activities?: Yes - CFS <4, screening complete Does patient have any of the following life limiting illnesses?: Active Cancer and Chronic Renal Disease Consult JET ENGINE MECHANIC for: JET ENGINE MECHANIC consult not indicated at this time Mental Health Screening: Have you had any experience that was so frightening, horrible, or upsetting that, in the past month, you: Have had nightmares about it or thought about it when you did not want to? no Tried hard not to think about it or went out of your way to avoid situations that remind you of it?no Were constantly on guard, watchful, or easily startled? no [place] numb or detached from others, activities, or your surroundings? no Interventions Completed: Patient declines Trauma Psych Consult Assessment : Maricruz Vanegas is a 78 y.o. female with PMH ESRD on HD, COPD, T2DM, new BL lung masses, chronic pain syndrome, who was admitted 06/04/2024 after a fall. The patient was walking out a kwik trip when she had a witnessed fall. Imaging was done as noted above and the patient was found with left periorbital abrasion, laceration and hematoma. There is also possibility of left conjunctivitis or foreignbodies. Consulted ophthalmology to help investigate further and treat. Laceration was repaired in the emergency room.Tertiary exam negative for any acute findings. No additional imaging needed at this time from [facility]. Current known injuries: Left eye brow laceration Left periorbital hematoma Possible left conjunctival foreign bodies. New findings: No new findings Incidental Findings: Cervical spondylosis without significant spinal canal or neural foraminal narrowing. Mild biapical emphysema. Interstitial pulmonary edema Vs known left upper lobe mass. Infiltrate left upper lobe, pneumonia versus hemorrhage. Plan Imaging needed: None Labs needed: CBC, BMP while hospitalized or per primary team Wound care plans(s): Location: Left facial laceration; Dressing: Clean and leave it open to air Suture/Cumming: Location left facial laceration; Removal date: 1-2 weeks Antibiotics: Not indicated Drains Present: None Jones: Not present Lines: Peripheral DVT prophylaxis: Mechanical: SCDs and Chemical: ok for Heparin Diet: Regular diet Activity: Up ad tracy and Up with assist C/T/L-Spine status: Cleared Weight-bearing status: FWB Therapy: PT, OT, and OT for cognitive screen Consulting Teams(s) Plan and/or Follow-up Recommendations: Ophthalmology: Yet to see the patient and make recommendations. Primary team to follow up on those recs. Follow-Up Tertiary Exam: Not required; patient responsive and able to participate in clinical exam. Discharge Plan: Per primary team and To be determined. Tertiary exam negative for any acute findings. No follow up required with trauma surgery after discharge. DVT ppx after discharge per primary team. [facility] service will sign off at this time. Please feel free to call any member of the team if there are any questions or concerns. Ravinder Friedman APRN, ENGINEER CONDUCTOR 06/04/2024 14:13 [facility] Department of Surgery Pager: via [employer] FACULTY NOTE This was a shared visit with the MARA, Idalia, on Common Dates: 06/04 . I saw and evaluated the patient and discussed them; please see their note for the complete encounter. Rob elements of the visit include (MDM or time): No new findings on tertiary exam, physical exam stable, will work with therapies and continue with plan of care. Rajan Adams MD, 06/05/2024 8:32 AM * Nursing Assessment - Macrina Funes RN - 06/04/2024 1:32 PM CDT Nursing Assessment Head to Toe Head to Toe Assessment Shift Summary Shift Summary SHIFT SUMMARY [id number] DATA Patient is SBA in the room. Bed alarm on for safety. BP was high throughout the shift - providers notified. Endorses pain in L side of face. ACTION Medications given per APR. Beverages and snacks provided. RESPONSE Calm and cooperative. PLAN Plan of care ongoing, no further needs at this time. Call light within reach. Macrina Funes, RN, 06/04/2024 1:32 PM Neurologic/Cognitive Within Defined Limits HEENT Assessment Within Defined Limits except for: Head/Face Symptoms: trauma/injury Cardiac Within Defined Limits Respiratory Within defined limits Neurovascular Within Defined Limits Gastrointestinal Within Defined Limits Genitourinary Within Defined Limits Musculoskeletal Within Defined Limits Integumentary Assessment Within Defined Limits except for: Skin Assessment Integrity - see Avatar LDA documentation Patient Lines/Drains/Airways Status Active LDAs Name Placement date Placement time Site Days Peripheral IV 06/04/24 18 gauge;2 1/2 in length Anterior;Right Upper Arm 06/04/24 0101 -- less than1 Wound 06/04/24 Cheek Left 06/04/24 0450 Cheek less than 1 Psychosocial Within Defined Limits * Interval Note Provider - Luis Eduardo Mederos DO - 06/04/2024 7:44 AM CDT Brief [facility] Trauma Tertiary Exam Request Note The [facility] team was asked to see Maricruz Vanegas a 78 y.o. female for completion ofa trauma tertiary exam. [facility] is aware of patient and will complete trauma tertiary exam when able. C-spine cleared at bedside. Patient seen and examined. Subjective: Patient doing well this AM. No acute questions or concerns. Per nursing, complaint overC-collar and wanting it removed. Objective: Patient hemodynamically stable, interactive. C-collar in place. Laceration to left face s/p repair. Spontaneously moving all extremities. Review of imaging reveals the following exams have been completed: - CT OUTSIDE READ HEAD/FACIAL BONES (06/04/2024 00:41) - CT OUTSIDE READ SPINE CERVICAL/NECK (06/04/2024 00:41) With the following findings: imaging negative for acute injury Recommend the following additional imaging: (ordered for you) - CXR - XR pelvis Luis Eduardo Mederos DO, 06/04/2024 7:44 AM General Surgery PGY2 [facility] Service Pager - [phone] * Interval Note Provider - Luis Eduardo Mederos DO - 06/04/2024 7:43 AM CDT --Cervical Spine Clearance-- No evidence of fracture/subluxation on radiography. Clinical exam performed; no midline tenderness with unassisted full ROM. No new numbness/tingling, weakness, or shooting pain in any of the patients extremities. Plan: C-collar removed, c-spine precautions d/c'd. Luis Eduardo Mederos DO, 06/04/2024 7:43 AM General Surgery PGY2 [facility] Pager - [phone] * Nursing Assessment - Michelle Salgado RN - 06/04/2024 5:23 AM CDT Nursing Assessment Head to Toe Head to Toe Assessment BP (!) 169/53 (Cuff Location: Right Arm) Pulse 94 Temp 36.7 ??C (98.1 ??F) Resp 18 Ht 1.549m (5' 1) SpO2 95% Shift Summary Shift Summary NURSING ADMISSION NOTE Maricruz Vanegas : 1945 SEX: female D: Maricruz Vanegas was admitted to [facility] from ED at 0430 for Syncope, unspecified syncope type. Patient: alert, person, place, time, situation. Skin: left side facial injury (forehead,eye and cheek). Pain: throbbing, soreness. BP (!) 169/53 (Cuff Location: Right Arm) Pulse 94 Temp 36.7 ??C (98.1 ??F) Resp 18 Ht 1.549m (5' 1) SpO2 95% A: Pt oriented to unit, room, and use of call light. Routine admit screens completed. Patient on remote telemetry. R:PATIENT AND/OR FAMILY: patient was able to verbalize understanding of unit policy and plan of care. Questions answered. Learning considerations: None and Hearing Loss. P: Implement orders as received. Will continue to monitor, follow plan of care, and notify providerand/or team as needed. Michelle Salgado RN, 06/04/2024 5:25 AM Patient Belonging 06/04/2024 0514 Reason for Inventory: Admission Upon admission, a Four Eyes Skin Inspection was completed with Carlos Velásquez (Name & Title). Skin injuries were present, and skin breakdown needing further assessment will be added to Avatar. Will implement interventions from Skin INJURY Bundle as appropriate. Neurologic/Cognitive Assessment Within Defined Limits except for: Comments: Francoise ANDREWS Assessment Within Defined Limits except for: Eye Symptoms: acute vision change - left Cardiac Assessment Within Defined Limits except for: House Mover Supervisor - remote telemetry Respiratory Assessment Within Defined Limits except for: Neurovascular Within Defined Limits Gastrointestinal Within Defined Limits Genitourinary Within Defined Limits Musculoskeletal Assessment Within Defined Limits except for: Musculoskeletal Assessment: General Mobility: Generalized weakness and mildly impaired Integumentary Assessment Within Defined Limits except for: Skin Assessment Integrity - see Avatar LDA documentation Patient Lines/Drains/Airways Status Active LDAs Name Placement date Placement time Site Days Peripheral IV 06/04/24 18 gauge;2 1/2 in length Anterior;Right Upper Arm 06/04/24 0101 -- less than1 Wound 06/04/24 Cheek Left 06/04/24 0450 Cheek less than 1 Psychosocial Within Defined Limits * Interval Note Provider - Heather Campuzano MD - 06/04/2024 3:45 AM CDT Handoff Communication Note for Hospital Admission Verbal handoff received from Dr Ruff in [facility]. Patient Class: Inpatient Cardiac Monitoring: Telemetry unit Brief summary of handoff from ED/Clinic Staff: 78yo FM PMH ESRD on HD COPD T2DM Lung SCC -Recently hospitalized for htn encephalopathy -Medics saw her walk out of gas station then has syncope episode -OSH images with significant facial lacerations -CT head, facial, cervical spine from outside read and appear clear -EKG looks fine -Unknown if dialyzed yesterday -Surgery not contacted yet IP admit order will be placed in accordance with the patient class designation above. Please page the [facility]al [facility] B Team via [employer] with clinical updates or status changes. Note is for documentation only and not for billing purposes. Heather Campuzano MD, 06/04/2024 3:45 AM * ED Faculty Note - Lourdes Cheung MD - 06/04/2024 12:10 AM CDT Images from the original note were not included. ED Faculty Attestation and Note Maricruz Vanegas : 1945 Sex: female Patient Arrival Date and Time: 06/03/2024 11:58 PM FACULTY ATTESTATION I personally saw the patient, performed critical or rob portions of the service, and discussed the care with the resident MDM / ED Course Maricruz Vanegas presented to the emergency department with fall. Pt transferred form OSH with facial trauma from witnessed fall. Pt walking out of gas station and had syncopal episode observed by EMS. Imaging form OSH negative for acute findings, soft tissue edema noted to L eye with laceration. Pmhx of ESRD- on dialysis, DMT2, L lung squamous cell carcinoma, chronic pain syndrome, PAD, HFpEF, COPD. Leukocytosis noted, as well as elevated trop. Independent interpretation of EKG shows possible R atrial enlargement. Independent interpretation of bedside cardiac UTL obtained. Lacerations repaired. CT imaging obtained from prior hospital. Pt admitted for syncope. IMPRESSION 1. Syncope, unspecified syncope type 2. History of cornea transplant Scribed for Lourdes Cheung MD by Tamica Reed Scribe, 06/04/2024 12:10 AM IJonatan Robert F, MD have reviewed the initial documentation provided by the scribe and affirm that it is an accurate restatement of my dictated record of services. Signed: Lourdes Cheung MD,00:10 06/04/2024 documented in this encounter Plan of Treatment Scheduled Referrals Name Type Priority Associated Diagnoses Orde r Schedule REFERRAL TO OPHTHALMOLOGY/OPTOMETRY Referral STAT History of cornea transplant Ordered: 06/04/2024 documented as of this encounter Procedures Procedure Name Priority Date/Time Associated Diagnosis Comments POC GLUCOSE Routine 06/04/2024 11:[address] CHEST WITH IV CONTRAST Today 06/04/2024 9:14 AM CDT POC GLUCOSE Routine 06/04/2024 8:37 AM CDT XR CHEST 1 VIEW AP OR PA* Today 06/04/2024 8:16 AM CDT XR PELVIS AP* Today 06/04/2024 8:16 AM CDT POC GLUCOSE Routine 06/04/2024 6:20 AM CDT PC TROPONIN QUANTITATIVE Timed 06/04/2024 5:45 AM CDT PC LAB CBC W/DIFF & PLT Routine 06/04/2024 5:45 AM CDT PROTHROMBIN (PT) & INR Routine 06/04/2024 5:45 AM CDT PHOSPHORUS Routine 06/04/2024 5:45 AM CDT PANEL BASIC METABOLIC (BMP) Routine 06/04/2024 5:45 AM CDT MAGNESIUM Routine 06/04/2024 5:45 AM CDT PANEL HEPATIC FUNCTION Routine 06/04/2024 5:45 AM CDT LACERATION REPAIR Routine 06/04/2024 4:5 1 AM CDT PC TROPONIN QUANTITATIVE Timed 06/04/2024 4:05 AM CDT LACERATION REPAIR Routine 06/04/2024 3:4 8 AM CDT ED US CARDIAC STAT 06/04/2024 12:56 AM CDT PC TROPONIN QUANTITATIVE STAT 06/04/2024 12:44 AM CDT PC LAB ELECTROLYTE PANEL STAT 06/04/2024 12:44 AM CDT PC LAB CBC W/DIFF & PLT STAT 06/04/2024 12:44 AM CDT PROTHROMBIN (PT) & INR STAT 06/04/2024 12:44 AM CDT TC LAB BLOOD DRAW BY VENIPUNCTURE Routine 06/04/2024 12:[address] OUTSIDE READ HEAD/FACIAL BONES Routine 06/04/2024 12:[address] OUTSIDE READ SPINE CERVICAL/NECK Routine 06/04/2024 12:41 AM CDT ED EKG (12-LEAD) Routine 06/04/2024 12:3 2 AM CDT documented in this encounter Results * (ABNORMAL) POC GLUCOSE (06/04/2024 11:51 AM CDT) POC Glucose 208(H) 70 - 100 mg/dL [facility] Blood 06/04/2024 11:5 1 AM CDT us Lourdes Cheung MD LABORATORY Final Result [facility] [address] [place] [address], [place] * CT CHEST WITH IV CONTRAST [...] RAD CT BODY Final Re sult * (ABNORMAL) POC GLUCOSE (06/04/2024 8:37 AM CDT) POC Glucose 230(H) 70 - 100 mg/dL [facility] Blood 06/04/2024 8:37 AM CDT Lourdes Cheung MD LABORATORY Final Result [facility] [address] [place] [address], [place] * XR CHEST 1 VIEW AP OR [...] pneumonia versus hemorrhage. [place] Radiologist: Daniel Vincent Monika Rodriguez MD RAD XRAY Final Re [...] acute osseous abnormality [place] Radiologist: Daniel Vincent Monika Rodriguez MD RAD XRAY Final Re sult * (ABNORMAL) POC GLUCOSE (06/04/2024 6:20 AM CDT) POC Glucose 277(H) 70 - 100 mg/dL [facility] POINT OF CARE Blood 06/04/2024 6:20 AM CDT Lourdes Cheung MD LABORATORY Final Result Performing Organization Address [facility] Co de Phone Number [facility] [address] [place] [address], [place] * (ABNORMAL) PANEL HEPATIC FUNCTION (06/04/2024 5:45 AM CDT) [facility] Total Protein 8.1 6.4 - 8.3 g/dL [facility] Albumin 3.3(L) 3.8 - 5.1 g/dL [facility] Bili Total 0.2 <=1.2 mg/dL [facility] Bili Direct 0.1 <=0.3 mg/dL [facility] Alk Phos 141(H) 35 - 104 IU/L [facility] Comment:No reference range e stablished for patients <18 years old. ALT (SGPT) 19 <=33 IU/L [facility] AST(SGOT) 30 5 - 40 IU/L [facility] Blood 06/04/2024 5:45 AM CDT 06/04/2024 6:40 AM CDT Lourdes Cheung MD LABORATORY Final Result Performing Organization Address [facility]/ZIP Co de Phone Number [facility] [address] [address] * (ABNORMAL) PHOSPHORUS (06/04/2024 5:45 AM CDT) [facility] Phosphorus 5.0(H) 2.5 - 4.5 mg/dL [facility] Blood 06/04/2024 5:45 AM CDT 06/04/2024 6:40 AM CDT Lourdes Cheung MD LABORATORY Final Result [facility] [address] [address] * MAGNESIUM (06/04/2024 5:45 AM CDT) Magnesium 2.1 1.6 - 2.4 mg/dL [facility] Blood 06/04/2024 5:45 AM CDT 06/04/2024 6:40 AM CDT Lourdes Cheung MD LABORATORY Final Result Performing Organization Address [facility] Co de Phone Number [facility] [address] [address] * (ABNORMAL) PANEL BASIC METABOLIC (BMP) (06/04/2024 5:45 AM CDT) Sodium 131(L) 135 - 148 mmol/L [facility] Potassium 4.9 3.5 - 5.3 mmol/L [facility] Chloride 90(L) 92 - 108 mmol/L [facility] CO2 26 22 - 30 mmol/L [facility] Glucose 304(H) 70 - 100 mg/dL [facility] BUN 42(H) 8 - 23 mg/dL [facility] Creatinine 3.62(H) 0.50 - 1.00 mg/dL [facility] Calcium 9.2 8.8 - 10.2 mg/dL [facility] AnGap 15 8 - 16 mmol/L [facility] eGFR (2020 CKD-EPI) 12(L) >=60 ml/min/1.7 3m2 [facility] Comment: The estimated glomerular filtration rate (eGFR) was calculated using the CKD-EPI 2020 creatinine equation, which does not include race as a factor. This equation is validated in individuals 18 years of age and older, and eGFR is normalized to a body surface area of 1.73m^2. Blood 06/04/2024 5:45 AM CDT 06/04/2024 6:40 AM CDT us Lourdes Cheung MD LABORATORY Final Result Performing Organization Address [facility] Co de Phone Number [facility] [address] [address] * PROTHROMBIN (PT) & INR (06/04/2024 5:45 AM CDT) Pathologist [facility] PT 11.9 9.0 - 12.5 sec [facility] INR 1.0 0.8 - 1.1 [facility] Comment: Warfarin Therapeutic Range: Standard Intensity: 2.0 - 3.0 High Intensity: 2.5 - 3.5 Blood 06/04/2024 5:45 AM CDT 06/04/2024 6:41 AM CDT Lourdes Cheung MD LABORATORY Final Result Performing Organization Address [facility] Co de Phone Number [facility] [address] [address] * (ABNORMAL) CBC WITH PLTS/AUTO DIFF (06/04/2024 5:45 AM CDT) Pathologist [facility] WBC 20.41(H) 4.00 - 10.00 k/cmm [facility] RBC 3.32(L) 3.90 - 5.20 m/cmm [facility] Hgb 9.6(L) 11.5 - 15.7 g/dL [facility] Hematocrit 31.1(L) 34.0 - 45.0 % [facility] MCV 93.7 80.0 - 100.0 fL [facility] MCH 28.9 25.0 - 32.0 pg [facility] MCHC 30.9(L) 31.0 - 36.0 g/dL [facility] RDW 18.0(H) 11.5 - 14.5 % [facility] Plt 289 150 - 400 k/cmm [facility] MPV 10.1 6.5 - 12.5 fL [facility] Automated Abs Neutrophil 18.09(H) 1.70 - 6.50 k/cmm [facility] Comment:Preliminary ANC, Fin al Result to Follow Abs Immature Granulocyte 0.16(H) 0.00 - 0.09 k/cmm [facility] Comment:The Immature Granulo cyte Absolute count contains metamyelocytes and myelocytes. Abs Neutrophil 18.09(H) 1.70 - 6.50 k/cmm [facility] Abs Lymphocyte 1.01 0.80 - 4.00 k/cmm [facility] Abs Monocyte 1.04(H) 0.20 - 1.00 k/cmm [facility] Abs Eosinophil 0.06 0.00 - 0.60 k/cmm [facility] Abs Basophil 0.05 0.00 - 0.20 k/cmm [facility] Blood 06/04/2024 5:45 AM CDT 06/04/2024 6:42 AM CDT Lourdes Cheung MD LABORATORY Edited Resul t - Final Performing Organization Address [facility] de Phone Number [facility] [address] [address] * (ABNORMAL) TROP 4H (06/04/2024 5:45 AM CDT) 4H Trop 32(H) <=14 ng/L [facility] 4H Delta Indeterminate Not Significant [facility] Blood 06/04/2024 5:45 AM CDT 06/04/2024 6:41 AM CDT Lourdes Cheung MD LABORATORY Edited Resul t - Final Performing Organization Address [facility] Phone Number [address] [address] * Laceration Repair (06/04/2024 4:51 AM CDT) Narrative Lourdes Cheung MD - 06/04/2024 4:51 AM CDT Lourdes Cheung MD 06/13/2024 1:18 PM Laceration Repair Performed by: Darline Ruff MD Authorized by: Lourdes Cheung MD Consent: Consent obtained: Verbal Consent given by: Patient Risks discussed: Infection, pain, need for additional repair, poor wound healing, poor cosmetic result and retained foreign body Holland protocol: Procedure explained and questions answered to [...] close her eye completely without difficulty. Lourdes Cheung MD PROCEDURES Final Result * (ABNORMAL) TROP 2H (06/04/2024 4:05 AM CDT) 2H Trop 32(H) <=14 ng/L [facility] 2H Delta Not Significant Not Significant [facility] Blood 06/04/2024 4:05 AM CDT 06/04/2024 4:10 AM CDT Lourdes Cheung MD LABORATORY Edited Resul t - Final [facility] [address] [address] * Laceration Repair (06/04/2024 3:48 AM CDT) Narrative Lourdes Cheung MD - 06/04/2024 3:48 AM CDT Lourdes Cheung MD 06/13/2024 1:18 PM Laceration Repair Performed by: Darline Ruff MD Authorized by: Lourdes Cheung MD Consent: Consent obtained: Verbal Consent given by: Patient Risks discussed: Infection, pain, need for additional repair, poor wound healing, poor cosmetic result and retained foreign body Holland protocol: Procedure explained and questions answered to [...] likely be asymmetry and scarring. us Lourdes Cheung MD PROCEDURES Final Result * (ABNORMAL) ED US CARDIAC (06/04/2024 12:56 AM CDT) Anatomical Region Laterality Modality Ultrasound Narrative 06/04/2024 4:43 PM CDT ED Cardiac Ultrasound Body Areas Imaged: Heart, Chest Wall/Lungs, and Inferior Vena Cava Indications: Syncope/Near Syncope Window: Subxiphoid, Parasternal Short [place], Parasternal Long [place], Apical 4-Chamber, IVC, and Bilateral Lungs Findings: [...] Jose F Riojas MD, 06/04/2024 4:42 PM us Lourdes Cheung MD RAD ED ULT Final Result * (ABNORMAL) PROTHROMBIN (PT) & INR (06/04/2024 12:44 AM CDT) [facility] PT 13.1(H) 9.0 - 12.5 sec [facility] INR 1.1 0.8 - 1.1 [facility] Comment: Warfarin Therapeutic Range: Standard Intensity: 2.0 - 3.0 High Intensity: 2.5 - 3.5 Blood 06/04/2024 12:4 4 AM CDT 06/04/2024 1:06 AM CDT us Lourdes Cheung MD LABORATORY Final Result [facility] [address] [address] * (ABNORMAL) HS TROPONIN (06/04/2024 12:44 AM CDT) Pathologist [facility] HS Troponin I 31(H) <=14 ng/L [facility] Blood 06/04/2024 12:4 4 AM CDT 06/04/2024 12:47 AM CDT Narrative [facility] - 06/04/2024 1:19 AM CDT First Occurrence of the Troponin order is to be drawn Stat by Nursing staff on the unit. us Lourdes Cheung MD LABORATORY Final Result [facility] [address] [address] * (ABNORMAL) CBC WITH PLTS/AUTO DIFF (06/04/2024 12:44 AM CDT) Pathologist [facility] WBC 22.27(H) 4.00 - 10.00 k/cmm [facility] RBC 3.27(L) 3.90 - 5.20 m/cmm [facility] Hgb 9.6(L) 11.5 - 15.7 g/dL [facility] Hematocrit 30.8(L) 34.0 - 45.0 % [facility] MCV 94.2 80.0 - 100.0 fL [facility] MCH 29.4 25.0 - 32.0 pg [facility] MCHC 31.2 31.0 - 36.0 g/dL [facility] RDW 17.9(H) 11.5 - 14.5 % [facility] Plt 293 150 - 400 k/cmm [facility] MPV 11.3 6.5 - 12.5 fL [facility] NRBC 0.1(H) 0.0 - 0.0 /100WBC [facility] Automated Abs Neutrophil 20.30(H) 1.70 - 6.50 k/cmm [facility] Comment:Preliminary ANC, Fin al Result to Follow Abs Immature Granulocyte 0.23(H) 0.00 - 0.09 k/cmm [facility] Comment:The Immature Granulo cyte Absolute count contains metamyelocytes and myelocytes. Abs Neutrophil 20.30(H) 1.70 - 6.50 k/cmm [facility] Abs Lymphocyte 0.61(L) 0.80 - 4.00 k/cmm [facility] Abs Monocyte 0.97 0.20 - 1.00 k/cmm [facility] Abs Eosinophil 0.09 0.00 - 0.60 k/cmm [facility] Abs Basophil 0.07 0.00 - 0.20 k/cmm [facility] Blood 06/04/2024 12:4 4 AM CDT 06/04/2024 1:06 AM CDT Lourdes Cheung MD LABORATORY Edited Resul t - Final Performing Organization Address [facility] Co de Phone Number [facility] [address] [address] * (ABNORMAL) ED CHEMISTRY LABS(NA,K,CL,CO2,GLU,CREAT,CA-IONIZED,ANION GAP) (06/04/2024 12:44 AM CDT) Sodium 134(L) 135 - 148 mmol/L [facility] Chloride 102 92 - 108 mmol/L [facility] AnGap 9 8 - 16 mmol/L [facility] Glucose 134(H) 70 - 100 mg/dL [facility] ICA, Actual 4.13(L) 4.40 - 5.20 mg/dL [facility] ICA, pH Corrected 4.29(L) 4.40 - 5.20 mg/dL [facility] Creatinine 3.11(H) 0.50 - 1.00 mg/dL [facility] BICARB 23 22 - 26 mEq/L [facility] eGFR (2020 CKD-EPI) 15(L) >=60 ml/min/1.7 3m2 [facility] Comment: The estimated glomerular filtration rate (eGFR) was calculated using the CKD-EPI 2020 creatinine equation, which does not include race as a factor. This equation is validated in individuals 18 years of age and older, and eGFR is normalized to a body surface area of 1.73m^2. Potassium 4.7 3.5 - 5.3 mmol/L [facility] Blood 06/04/2024 12:4 4 AM CDT 06/04/2024 12:48 AM CDT Lourdes Cheung MD LABORATORY Final Result [facility] [address] [place] [address] * EXTRA TUBE - SST (06/04/2024 12:43 AM CDT) SST TUBE Stored [facility] Comment:SST tubes (Serum Sep arator) are stored in the lab for 3 days from the collection date. Blood 06/04/2024 12:4 3 AM CDT 06/04/2024 12:50 AM CDT us Lourdes Cheung MD LABORATORY Final Result [facility] [address] [address] * CT OUTSIDE READ HEAD/FACIAL BONES (06/04/2024 [...] 8:25 AM CDT Indication: Patient transferred from [facility] due to Trauma. No initial report accompanied the patient and/or Dr. LOURDES CHEUNG requested an interpretation by me. Technique: CT scan of the head and facial bones done on without without IV contrast. 3 mm axial and coronal reconstructions reviewed in soft tissue and bone windows, per the local institution's scanning protocols, which may differ from the [facility] trauma protocols. Findings: There is no evidence [...] MD - 06/04/2024 Indication: Patient transferred from [facility] due to Trauma.No initial report accompanied the patient and/or Dr. LOURDES CHEUNGrequested an interpretation by me. Technique: CT scan of the head and facial bones done on without withoutIV contrast. 3 mm axial and coronal reconstructions reviewed in softtissue and bone windows, per the local institution's scanning protocols,which may differ from the [facility] trauma protocols. Findings: There is no evidence [...] [place] Radiologist: Abdullahi Solano Resident: Vicente Emerson us Lourdes Cheung MD RAD CT NEURO Final Result * [...] 7:56 AM CDT Indication: Patient transferred from [facility] due to Trauma. No initial report accompanied the patient and/or Dr. LOURDES CHEUNG requested an interpretation by me. Technique: CT scan of the cervical spine done on 06/03/2024 without IV contrast. 3 mm axial, sagittal and coronal reconstructions reviewed in soft tissue and bone windows, per the local institution's scanning protocols, which may differ from the [facility] trauma protocols. Findings: The lateral masses of [...] MD - 06/04/2024 Indication: Patient transferred from [facility] due to Trauma.No initial report accompanied the patient and/or Dr. LOURDES CHEUNGrequested an interpretation by me. Technique: CT scan of the cervical spine done on 06/03/2024 without IVcontrast. 3 mm axial, sagittal and coronal reconstructions reviewed insoft tissue and bone windows, per the local institution's scanningprotocols, which may differ from the [facility] trauma protocols. Findings: The lateral masses of [...] Radiologist: Abdullahi Solano [place] Resident: Vicente Emerson us Lourdes Cheung MD RAD CT NEURO Final Result * ED EKG (12-LEAD) (06/04/2024 12:32 AM CDT) 06/04/2024 12:3 2 AM CDT Impressions [facility] CVIS EKG ORDERS - 06/04/2024 12:32 AM CDT SINUS RHYTHM POSSIBLE RIGHT ATRIAL ENLARGEMENT [0.25mV P-WAVE] BORDERLINE ECG P-R Interval 177 ms QRS Interval 81 ms QT Interval 396 ms QTC Interval 412 ms P Somerdale 87 QRS [place]omerdale 70 T Wave [place] 95 Narrative Procedure Note Felipe Douglass III, MD - 06/04/2024 IMPRESSION SINUS RHYTHM POSSIBLE RIGHT ATRIAL ENLARGEMENT [0.25mV P-WAVE] BORDERLINE ECG P-R Interval 177 ms QRS Interval 81 ms QT Interval 396 ms QTC Interval 412 ms P [place] 87 QRS [place] 70 T Wave [place] 95 us Lourdes Cheung MD EKG Final Result [facility] CVIS EKG ORDERS documented in this encounter Visit Diagnoses Diagnosis Syncope, unspecified syncope type- Primary Syncope, unspecified syncope type History of cornea transplant Cornea replaced by transplant documented in this encounter Administered Medications Inactive Administered Medications - up to 3 most recent administrations Medication Order MAR Action Action Date Dose Rate Site acetaminophen (TYLENOL) tablet 975 mg 975 mg, Oral, Q6H, First dose on Gemma 06/04/24 at 0515, Until Discontinued Given 06/04/2024 12:26 PM CDT 975 mg Given 06/04/2024 5:33 AM CDT 975 mg albuterol-ipratropium (DUONEB) 2.5-0.5 mg/3 mL solution 3 mL 3 mL, Nebulization, Q4H PRN, Starting on Gemma 06/04/24 at 0543, Until Gemma 06/04/24 at 1849, Shortness of Breath aspirin chewable tablet 81 mg 81 mg, Oral, DAILY, First dose on Sat06/04/24 at 1330, Until Discontinued Given 06/04/2024 2:47 PM CDT 81 mg cloNIDine (CATAPRES) tablet 0.3 mg 0.3 mg, Oral, BID, First dose on Gemma 06/04/24 at 1155, Until Discontinued Given 06/04/2024 12:26 PM CDT 0.3 mg DC MED REC REVIEW BY PHARMACY Discharge Date: 06/04/2024, Discharge Location: Home, Anticipated Discharge Time: After 2 pm, Discharge Medication Orders: DC Med Orders Final, Does not apply, PROTOCOL, Starting on Gemma 06/04/24 at 1415, Until Gemma 06/04/24 at 1849 erythromycin 0.5% (ROMYCIN) ophthalmic ointment eye LEFT, TID, First dose on Sat06/04/24 at 1400, Until DiscontinuedIndications:Synco pe, unspecified syncope type Given 06/04/2024 1:16 PM CDT furosemide (LASIX) tablet 40 mg 40 mg, Oral, DAILY, First dose on Sat06/04/24 at 1155, Until Discontinued Given 06/04/2024 12:26 PM CDT 40 mg heparin [id number] UNITS/mL injection 2,500 UNITS 2,500 UNITS, Subcutaneous, Q 8H, First dose on Sat06/04/24 at 0600, Until Discontinued Given 06/04/2024 1:16 PM CDT 2,500 UNITS Abdominal Tissue Given 06/04/2024 6:19 AM CDT 2,500 UNITS A bdominal Tissue hydrALAZINE (APRESOLINE) tablet 100 mg 100 mg, Oral, Q 8H, First dose on Sat06/04/24 at 0435, Until Discontinued Given 06/04/2024 1:17 PM CDT 100 mg Given 06/04/2024 5:33 AM CDT 100 mg HYDROmorphone PF (DILAUDID) 1 mg/mL injection 0.5 mg 0.5 mg, IV Push, ONE TIME, 1 dose, On Sat06/04/24 at 0335 Given 06/04/2024 3:39 AM CDT 0.5 mg insulin ASPART (NovoLOG) FlexPen Insulin Order Mode: Carb Based Dose, WITH Breakfast dose (Units/Carb Choice): 0, WITH Noon meal dose (Units/Carb Choice): 0, WITH Evening meal dose (Units/Carb Choice): 0, Glucose 130-150 (Units): 0, Glucose 151-200 (Units): 1, Glucose 201-250 (Units): 2, Glucose 251-300 (Units): 3, Glucose 301-350 (Units): 4, Glucose 351-400 (Units): 5, Glucose 401-500 (Units): 6, Glucose GREATER THAN 501 (Units): 7, Glucose GREATER THAN 501 instructions: Call Provider, Subcutaneous, TID AC, First dose on Sat06/04/24 at 0730, Until Discontinued Given 06/04/2024 12:25 PM CDT 2 UNITS Abdominal Tissue Given 06/04/2024 8:55 AM CDT 2 UNITS Ab dominal Tissue insulin ASPART (NovoLOG) FlexPen Glucose 201-250 (Units): 0, Glucose 251-300 (Units): 0, Glucose 301-350 (Units): 0, Glucose 351-400 (Units): 3, Glucose 401-450 (Units): 4, Glucose 451-500 (Units): 5, Glucose GREATER THAN 501 (Units): 6, Glucose GREATER THAN 501 instructions: Call provider, Subcutaneous, BEDTIME MAY REPEAT ONCE, First dose on Sat06/04/24 at 2100, Until Discontinued iohexol (OMNIPAQUE) 350 mg/mL injection IV Push, RAD ONE TIME AUTO ACKNOWLEDGE, 1 dose, On Sat06/04/24 at 0915 Given 06/04/2024 9:14 AM CDT 75 mL Right Arm losartan (COZAAR) tablet 50 mg 50 mg, Oral, BID, First dose on Sat06/04/24 at 0800, Until Discontinued Given 06/04/2024 8:55 AM CDT 50 mg NIFEdipine (PROCARIDA XL) XL tablet 120 mg 120 mg, Oral, DAILY, First dose on Sat06/04/24 at 1155, Until Discontinued Given 06/04/2024 1:17 PM CDT 120 mg oxyCODONE (ROXICODONE) tablet 5 mg 5 mg, Oral, Q4H PRN, Starting on Sat06/04/24 at 0511, Until Sat06/04/24 at 1849, Moderate Pain (Use First) Given 06/04/2024 5:33 AM CDT 5 mg spironolactone (ALDACTONE) tablet 25 mg 25 mg, Oral, DAILY, First dose on Sat06/04/24 at 1155, Until Discontinued Given 06/04/2024 12:26 PM CDT 25 mg documented in this encounter Active and Recently Administered Medications Times are shown in CDT. Scheduled Medication Order 06/02/2024 06/03/2024 06/04/2024 acetaminophen (TYLENOL) tablet 975 mg 975 mg, Oral, Q6H, First dose on Sat06/04/24 at 0515, Until Discontinued 0533 (Given - Provid er: Michelle Salgado RN)1226 (Given - Provider: Macrina Funes RN) aspirin chewable tablet 81 mg 81 mg, Oral, DAILY, First dose on Sat06/04/24 at 1330, Until Discontinued 1447 (Given - Provid er: Macrina Funes RN) calcium acetate (PHOSLO) capsule 2,001 mg 2,001 mg, Oral, TID WM, First dose on Sat06/04/24 at 1700, Until Discontinued cloNIDine (CATAPRES) tablet 0.3 mg 0.3 mg, Oral, BID, First dose on Sat06/04/24 at 1155, Until Discontinued 1226 (Given - Provid er: Macrina Funes RN) [facility] REC REVIEW BY PHARMACY(Linked Group 1) Discharge Date: 06/04/2024, Discharge Location: Home, Anticipated Discharge Time: After 2 pm, Discharge Medication Orders: DC Med Orders Final, Does not apply, PROTOCOL, Starting on Sat06/04/24 at 1415, Until Sat06/04/24 at 1849 erythromycin 0.5% (ROMYCIN) ophthalmic ointment eye LEFT, TID, First dose on Sat06/04/24 at 1400, Until Discontinued 1316 (Given - Provid er: Macrina Funes RN) furosemide (LASIX) tablet 40 mg 40 mg, Oral, DAILY, First dose on Sat06/04/24 at 1155, Until Discontinued 1226 (Given - Provid er: Macrina Funes RN) heparin 19531 UNITS/mL injection 2,500 UNITS 2,500 UNITS, Subcutaneous, Q 8H, First dose on Sat06/04/24 at 0600, Until Discontinued 0619 (Given - Provid er: Michelle Salgado RN)1316 (Given - Provider: Macrina Funes RN) hydrALAZINE (APRESOLINE) tablet 100 mg 100 mg, Oral, Q 8H, First dose on Sat06/04/24 at 0435, Until Discontinued 0533 (Given - Provid er: Michelle Salgado RN)1317 (Given - Provider: Macrina Funes RN) HYDROmorphone PF (DILAUDID) 1 mg/mL injection 0.5 mg (COMPLETED) 0.5 mg, IV Push, ONE TIME, 1 dose, On Sat06/04/24 at 0335 0339 (Given - Provid er: Marta Toledo RN) insulin ASPART (NovoLOG) FlexPen Insulin Order Mode: Carb Based Dose, WITH Breakfast dose (Units/Carb Choice): 0, WITH Noon meal dose (Units/Carb Choice): 0, WITH Evening meal dose (Units/Carb Choice): 0, Glucose 130-150 (Units): 0, Glucose 151-200 (Units): 1, Glucose 201-250 (Units): 2, Glucose 251-300 (Units): 3, Glucose 301-350 (Units): 4, Glucose 351-400 (Units): 5, Glucose 401-500 (Units): 6, Glucose GREATER THAN 501 (Units): 7, Glucose GREATER THAN 501 instructions: Call Provider, Subcutaneous, TID AC, First dose on Sat06/04/24 at 0730, Until Discontinued 0854 (Dual Sign-Off - Provider: Macrina Funes RN)0855 (Given - Provider: Macrina Funes RN)1221 (Dual Sign-Off - Provider: Macrina Funes RN)1225 (Given - Provider: Macrina Funes RN) insulin ASPART (NovoLOG) FlexPen Glucose 201-250 (Units): 0, Glucose 251-300 (Units): 0, Glucose 301-350 (Units): 0, Glucose 351-400 (Units): 3, Glucose 401-450 (Units): 4, Glucose 451-500 (Units): 5, Glucose GREATER THAN 501 (Units): 6, Glucose GREATER THAN 501 instructions: Call provider, Subcutaneous, BEDTIME MAY REPEAT ONCE, First dose on Sat06/04/24 at 2100, Until Discontinued iohexol (OMNIPAQUE) 350 mg/mL injection (COMPLETED) IV Push, RAD ONE TIME AUTO ACKNOWLEDGE, 1 dose, On Sat06/04/24 at 0915 0914 (Given - Provid er: Giuliana Ardon, RT - Comment: [id number]) losartan (COZAAR) tablet 50 mg 50 mg, Oral, BID, First dose on Sat06/04/24 at 0800, Until Discontinued 0855 (Given - Provid er: Macrina Funes RN) NIFEdipine (PROCARIDA XL) XL tablet 120 mg 120 mg, Oral, DAILY, First dose on Sat06/04/24 at 1155, Until Discontinued 1255 (Delayed (keeps Due time) - Provider: Macrina Funes RN - Reason: Medication unavailable - Comment: not on unit, messaged pharmacy)1317 (Given - Provider: Macrina Funes RN) pantoprazole (PROTONIX) tablet 40 mg 40 mg, Oral, BID, First dose on Gemma 06/04/24 at 2000, Until Discontinued polyethylene glycol 3350 (MIRALAX;GLYCOLAX) packet 17 g 17 g, Oral, DAILY, First dose on Gemma 06/04/24 at 1330, Until Discontinued 1447 (Not Given (rem oves Due time) - Provider: Macrina Funes RN - Reason: Patient refused) spironolactone (ALDACTONE) tablet 25 mg 25 mg, Oral, DAILY, First dose on Gemma 06/04/24 at 1155, Until Discontinued 1226 (Given - Provid er: Macrina Funes RN) triphrocaps (TRIPHRO) capsule 1 mg 1 mg (1 capsule), Oral, DAILY AFTERNOON, First dose on Gemma 06/04/24 at 1700, Until Discontinued PRN Medication Order 06/02/2024 06/03/2024 06/04/2024 albuterol-ipratropium (DUONEB) 2.5-0.5 mg/3 mL solution 3 mL 3 mL, Nebulization, Q4H PRN, Starting on Gemma 06/04/24 at 0543, Until Gemma 06/04/24 at 1849, Shortness of Breath oxyCODONE (ROXICODONE) tablet 5 mg 5 mg, Oral, Q4H PRN, Starting on Gemma 06/04/24 at 0511, Until Gemma 06/04/24 at 1849, Moderate Pain (Use First) 0533 (Given - Provid er: Michelle Salgado RN) Linked Groups Order Group 1: DC MED REC REVIEW BY PHARMACYJump to med Discharge Date: 06/04/2024, Discharge Location: Home, Anticipated Discharge Time: After 2 pm, Discharge Medication Orders: DC Med Orders Final, Does not apply, PROTOCOL, Starting on Gemma 06/04/24 at 1415, Until Gemma 06/04/24 at 1849 And Discharge Med Rec Final Review by Pharmacy (COMPLETED) Routine, Order to be placed by provider after medications have been entered for discharge and are ready for review by Pharmacist. This order can be placed multiple times if changes or additions have been made to medications for discharge. Choose the Preliminary DC Med Rec review when placing orders prior to the day of discharge. Choose Final DC Med Rec when all medication changes have been entered. If DC Med Rec needed now, please page the Pharmacist covering the patient to inform them., Discharge Date: 06/04/2024, Discharge Location: Home, Anticipated Discharge Time: After 2 pm documented in this encounter
--- OUTSIDE RECORDS SUMMARY | 2024-06-23 16:40 | XMS_ITS | Encounter Summary ---
Author Organization [facility] Address [address] [place] [address] Phone Care Team Providers Care Nuclear Powerplant Supervisor Name Role Phone Unavailable Primary Care Provider Unavailabl e Encounter Details Date Type Department Care Team (Late st Contact Info) Description 06/04/2024 Documentation Only Transplant Program 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 Delma Montemayor, 06/04/2024 8:03 AM documented in this encounter Plan of Treatment Not on file documented as of this encounter Visit Diagnoses Not on filedocumented in this encounter
--- OUTSIDE RECORDS SUMMARY | 2024-06-23 16:40 | XMS_ITS | Encounter Summary ---
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
--- OUTSIDE RECORDS SUMMARY | 2024-06-23 16:40 | XMS_ITS | Encounter Summary ---
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 us Provider Unknown RAD ECHO Final Result documented in this encounter Visit Diagnoses Not on filedocumented in this encounter
--- OUTSIDE RECORDS SUMMARY | 2024-06-23 16:40 | XMS_ITS | Encounter Summary ---
Author Organization [facility] Address [address] [place] [address] Phone Care Team Providers Care Design Coordinator Name Role Phone Unavailable Primary Care Provider Unavailabl e Encounter Details Date Type Department Care Team (Late st Contact Info) Description 06/05/2024 Documentation Only Transplant Program 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 Delma Montemayor, 06/05/2024 7:20 AM documented in this encounter Plan of Treatment Not on file documented as of this encounter Visit Diagnoses Not on filedocumented in this encounter
--- OUTSIDE RECORDS SUMMARY | 2024-06-23 16:40 | XMS_ITS | Encounter Summary ---
Author Organization [facility] Address [address] 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 albuterol (ACCUNEB;VENTOLIN ) 2.5 mg/3 mL inhalation inhalation solution 3 mL (2.5 mg) by Nebulization route every 4 hours as needed for Wheezing. aspirin 81 mg oral chewable tab Take 1 tablet (81 mg) by mouth daily. B Urvwaxn-D-Osjgo Acid (NEPHROCAPS ORAL) Take 1 capsule by [...] puff daily. documented as of this encounter Plan of Treatment Not on file documented as of this encounter Visit Diagnoses Not on filedocumented in this encounter
[2024-06-23] MEDS: IPRAT-ALBUT 0.5-2.5 MG/3 ML NEB 1 NEB IH (16:44)
[2024-06-23] MEDS: METHYLPREDNISOLONE SOD SUCC 62.5 MG/ML (125) 125 MG IVP (16:51)
--- NOTE | 2024-06-23 17:04 | ED.GENADULT ---
HPI - General Adult General Date Seen: 06/23/24 Chief complaint: Shortness of Breath/Dyspnea Stated complaint: SOB Time Seen by Provider: 06/23/24 16:38 History of Present Illness HPI narrative: 78 yo F with a complex past history and COPD, chronic renal failure on dialysis, CHF, and a recent diagnosis of lung cancer brought to the ER today by EMS for difficulty breathing, productive cough. Per EMS she has hypoxic respiratory failure. Sats were 70% on room air when they arrive. She was kept wheezy and coughing so they administered 1 DuoNeb. While receiving the DuoNeb (which required supplementation with oxygen) sats came up briefly to about 90 and then came down to the 70s again as soon as they finished the 1st neb. EMS is not been able to get an IV for the patient. History from patient limited because of respiratory distress and difficulty talking. History for the patient is that she started having shortness of breath this morning. She has had a cough. Sounds like it has been productive. No definite chest pain. She was able to go dialysis yesterday and as far she knows there was no problems with dialysis. Rapid review of medical record shows that she was here in the ER about a month ago on 05/25. She was confused after dialysis during that visit. Chest x-ray showed a masslike consolidation in the left upper lobe. COVID/influenza negative. BNP 026831. Troponin 0.09. BUN 34, creatinine 3.2. White cell count 22.6, hemoglobin 8.4. MRI brain showed no acute hemorrhage or mass. Vital signs showed blood pressure of 240/80. Given labetalol. Related Data Home Medications ?Medication ?Instructions ?Recorded ?Confirmed albuterol sulfate 2.5 mg/3 mL 2.5 mg Q4H PRN dyspnea 11/28/22 06/17/24 (0.083 %) solution for nebulization aspirin 81 mg capsule 81 mg PO DAILY 11/28/22 06/17/24 clonidine HCl 0.1 mg tablet 0.1 mg PO DIRECTED 11/28/22 06/17/24 furosemide 40 mg tablet 40 mg PO QAM 11/28/22 04/04/24 oxycodone 5 mg tablet 5 mg PO BID PRN 11/28/22 06/17/24 repaglinide 1 mg tablet 1 mg PO 3XD 11/28/22 06/17/24 sennosides 8.6 mg tablet (senna) 8.6 - 34.4 mg PO DAILY PRN 11/28/22 06/17/24 sorbitol 70 % solution 30 ml PO DAILY PRN constipation 11/28/22 06/17/24 albuterol sulfate 90 mcg/actuation 2 puff inhalation BID 12/03/23 06/17/24 aerosol inhaler calcium acetate(phosphat bind) 667 1,334 mg PO 3XD 12/03/23 06/17/24 mg capsule dextran 70-hypromellose (PF) 0.1 1 drp ophthalmic (eye) DIRECTED 12/03/23 06/17/24 %-0.3 % eye drops in a dropperette (Bion Tears (PF)) ipratropium 0.5 mg-albuterol 3 mg 3 ml inhalation Q6H PRN dyspnea 12/03/23 06/17/24 (2.5 mg base)/3 mL nebulization soln nifedipine 90 mg tablet,extended 90 mg PO DAILY 12/03/23 06/17/24 release 24 hr pantoprazole 40 mg tablet,delayed 40 mg PO BID 12/03/23 12/03/23 release spironolactone 25 mg tablet 25 mg PO DAILY 12/03/23 06/17/24 umeclidinium 62.5 mcg/actuation 1 inh inhalation DAILY 12/03/23 06/17/24 blister powder for inhalation (Incruse Ellipta) azithromycin 500 mg tablet mg DAILY 04/04/24 06/17/24 cefdinir 300 mg capsule mg 04/04/24 06/17/24 cetirizine 04/04/24 06/17/24 erythromycin ointment 04/04/24 06/17/24 fluticasone 250 mcg-salmeterol 50 1 inh inhalation Q12H 04/04/24 06/17/24 mcg/dose blistr powdr for inhalation (Advair Diskus) triamcinolone acetonide 0.1 % applic topical BID 04/04/24 06/17/24 topical cream Allergies Allergy/AdvReac Type Severity Reaction Status Date / Time atenolol Allergy Unknown Rash Verified 06/17/24 08:21 atorvastatin (From Lipitor) Allergy Unknown Verified 06/17/24 08:21 cat dander Allergy Unknown Difficulty Verified 06/17/24 08:21 Breathing dog dander Allergy Unknown Sneezing Verified 06/17/24 08:21 zarco Allergy Unknown Edema Verified 06/17/24 08:21 gemfibrozil Allergy Unknown Verified 06/17/24 08:21 hydrochlorothiazide Allergy Unknown Rash Verified 06/17/24 08:21 losartan Allergy Unknown Verified 06/17/24 08:21 niacin Allergy Unknown Verified 06/17/24 08:21 oak Allergy Unknown Rash Verified 06/17/24 08:21 pioglitazone Allergy Unknown Verified 06/17/24 08:21 ampicillin Allergy Hives Verified 06/17/24 08:21 dulaglutide (From Trulicity) AdvReac Unknown Vomiting Verified 06/17/24 08:21 pravastatin AdvReac Unknown Verified 06/17/24 08:21 simvastatin AdvReac Unknown Verified 06/17/24 08:21 gatifloxacin (From Tequin) AdvReac Nausea Verified 06/17/24 08:21 lisinopril AdvReac Cough Verified 06/17/24 08:21 PFSH PFSH Social History Smoking Status: Never smoker Second hand tobacco smoke exposure: No How often do you have a drink containing alcohol: never AUDIT-C Alcohol total score: 0 Non-prescribed substance use: denies use Exam Narrative: Exam Narrative: A- patient B- acutely dyspnic, tachypneic, speaking 2-4 word sentences. Looks in respiratory distress. sat in 70s on RA, up to 80s with duoneb running. C- tachycardic. regular. marked HTN 210/90. Dialysis fistula in LUE D- Normal alertness. No focal deficits GEN: looks slender, chronically ill, but not cachectic. In distress. dyspneic HENT: No trismus, tongue normal. No stridor Eyes: gaze conjugate. EOM grossly intact Neck: normal ROM. No JVD. No masses or swelling CV: tachy. Symmetric radial pulses. although she is in distress, skin is warm and perfused PULM: in respiratory distress. Tachypneic (RR 30s). Poor air movement in all monsivais. difuse wheezes. Bilateral basilar rales. O2 70s upon EMS arrival. With neb says rise to high 80s. After initiating BiPAP, work of breating somewhat improving. RR comes down to high 20s Abd: No tenderness. No masses Skin: not diaphoretic. No mottling or pallor. MSK: No tenderness or deformity Neuro: AOx3. follows commands and give short answers to questions. confirms FULL CODE status. No focal deficits. Psych: Limited by respiratory distress. Const: Vital Signs, click to edit/add: Vital Signs - 24 hr 06/23/24 16:43 06/23/24 16:45 06/23/24 16:54 Temperature Pulse Rate 111 H 112 H 114 H Pulse Rate [Pulse Oximeter] Respiratory Rate 36 H 36 H Blood Pressure 211/91 H Blood Pressure [Ri ght Upper Arm] Pulse Oximetry 89 93 93 Oxygen Delivery Me thod Oxygen Flow Rate Fraction of Inspir ed Oxygen 06/23/24 17:00 06/23/24 17:00 06/23/24 17:01 Temperature 98.3 F Pulse Rate 113 H 113 H Pulse Rate [Pulse Oximeter] 110 H Respiratory Rate 48 H 29 H 36 H Blood Pressure 192/88 H Blood Pressure [Ri ght Upper Arm] 199/122 H Pulse Oximetry 70 L 94 94 Oxygen Delivery Me thod Room Air Oxygen Flow Rate Fraction of Inspir ed Oxygen 06/23/24 17:07 06/23/24 17:12 06/23/24 17:13 Temperature Pulse Rate 106 H 97 99 Pulse Rate [Pulse Oximeter] Respiratory Rate 38 H 35 H 47 H Blood Pressure 185/91 H 175/87 H Blood Pressure [Ri ght Upper Arm] Pulse Oximetry 87 L 88 90 Oxygen Delivery Me thod CPAP Oxygen Flow Rate 35 Fraction of Inspir ed Oxygen 06/23/24 17:15 06/23/24 17:17 06/23/24 17:24 Temperature Pulse Rate 95 93 103 H Pulse Rate [Pulse Oximeter] Respiratory Rate 38 H 35 H 46 H Blood Pressure 173/83 H 130/86 Blood Pressure [Ri ght Upper Arm] Pulse Oximetry 89 89 89 Oxygen Delivery Me thod Oxygen Flow Rate Fraction of Inspir ed Oxygen 06/23/24 17:25 06/23/24 17:26 06/23/24 17:30 Temperature Pulse Rate 102 H 104 H 99 Pulse Rate [Pulse Oximeter] Respiratory Rate 39 H 38 H 32 H Blood Pressure 139/74 Blood Pressure [Ri ght Upper Arm] Pulse Oximetry 89 89 89 Oxygen Delivery Me thod Oxygen Flow Rate Fraction of Inspir ed Oxygen 40 06/23/24 17:31 06/23/24 17:32 06/23/24 17:35 Temperature Pulse Rate 96 94 97 Pulse Rate [Pulse Oximeter] Respiratory Rate 41 H 53 H 35 H Blood Pressure 139/87 128/92 H Blood Pressure [Ri ght Upper Arm] Pulse Oximetry 88 89 88 Oxygen Delivery Me thod Oxygen Flow Rate Fraction of Inspir ed Oxygen 06/23/24 17:36 06/23/24 17:41 06/23/24 17:45 Temperature Pulse Rate 98 97 97 Pulse Rate [Pulse Oximeter] Respiratory Rate 33 H 30 H 34 H Blood Pressure 129/91 H 115/77 Blood Pressure [Ri ght Upper Arm] Pulse Oximetry 91 91 90 Oxygen Delivery Me thod Oxygen Flow Rate Fraction of Inspir ed Oxygen 06/23/24 17:46 06/23/24 17:52 06/23/24 17:56 Temperature Pulse Rate 97 98 103 H Pulse Rate [Pulse Oximeter] Respiratory Rate 34 H 47 H 30 H Blood Pressure 134/74 132/72 130/86 Blood Pressure [Ri ght Upper Arm] Pulse Oximetry 90 92 91 Oxygen Delivery Me thod Oxygen Flow Rate Fraction of Inspir ed Oxygen 06/23/24 18:00 06/23/24 18:01 Temperature Pulse Rate 102 H 102 H Pulse Rate [Pulse Oximeter] Respiratory Rate 33 H 28 H Blood Pressure 145/80 H Blood Pressure [Ri ght Upper Arm] Pulse Oximetry 91 93 Oxygen Delivery Me thod BiPAP Oxygen Flow Rate Fraction of Inspir ed Oxygen Course Course ED Course: Patient arrived by EMS. Responded to ER room room 8 immediately. She was in respiratory distress and hypoxic. Nurses working on getting nebs, oxygen, vital signs, and getting around the monitors. Sats were in the 70s on room air when she arrived. Nurses were starting a DuoNeb as I was doing my initial avc assessment. Patient was alert and protecting her airway but was breathing rapidly and shallowly. Concern is whether not we would be able to stave off intubation. We were able to get her started on BiPAP and we started her on 01/15 with 60% FiO2. With that level of oxygen supplementation sats quickly came up into the mid 90s. We were able to wean her down to 35% FiO2 but then she did drop her sats down into the high 80 so she seemed to stabilize on about 40% FiO2. While we were titrating her BiPAP in getting the mask fit for best sealant support, nurses were working on getting IV getting her on the monitor. They were only able to get a 24 gauge IV in her right hand. Stat portable chest x-ray was obtained and by my read shows a left upper lobe infiltrate and also apparent cephalization of flow suggesting acute CHF. Will start on antibiotics for pneumonia and also start nitro drip for acute hypertensive CHF. Patient required better IV access for her antibiotics and fluids. Meanwhile we placed a phone call to [facility] (the patient's usual health care system) I was able to discuss with the ICU doctor, Dr. James. At this point my clinical impression is acute hypoxic respiratory failure, likely multifactorial due to COPD exacerbation, acute hypertensive CHF, and also possible left upper lobe pneumonia. He will accept the patient in transfer to the ICU at [facility]. Procedure: Ultrasound-guided IV placement Verbal consent from the patient Indication is need for IV access in the setting of critical illness Using the high-frequency linear array probe we evaluated the patient's right arm. Use the nursing high-frequency linear probe so I am not able to save images to the PACS. She had a good IV target in the right antecubital fossa. However the vein was directly adjacent to the artery. After sterile prep with alcohol and using a sterile ultrasound probe cover and sterile ultrasound gel I was able to place a 20 gauge IV catheter into the vein. We confirmed that the catheter was not intra-arterial based on detection of the IV catheter in the vein and not in the artery by ultrasound. Also we return flow of dark red venous blood but no pulsatile blood. Nurses assisted by saline locking the IV. After sterilely wiping away the ultrasound gel we placed a sterile dressing over the IV and it was secured. Further ER course While this was happening the patient was started on nitro drip. Blood pressure rapidly came 210/90 down to about 170/90. With this we turned down the patient's nitro infusion rate from 10 mcg to 5. Subsequent blood pressure actually came all the way down to 139/86. We turned the nitroglycerin off. Subsequent blood pressure readings remain in the normotensive range. Repeat mental status exam remained alert, able to answer questions. Still breathing rapidly but overall oxygen sats were adequate with sats around 90 (range 89-91.) on 40% FiO2. We wanted to avoid over oxygenation due to risk of suppressing the patient's respiratory drive. Twelve lead EKG was obtained and showed sinus rhythm without any obvious ischemia but significantly limited by respiratory artifact. Normal sinus rhythm. First-degree AV block Rate: 95 [place]: To 48 QRS axis: Normal axis. Q-wave in lead V1. ST segment/T wave: Significant artifact but no obvious ST segment elevation or depression. QTc: 394 Based on the patient allergies we ordered meropenem and vancomycin for possible pneumonia. Repeat lung exam still reviews fairly diffuse wheezing. Will add an additional albuterol neb (has already received 1 DuoNeb by EMS, 1 DuoNeb upon arrival here to the ER, and 1 albuterol neb). Has already received IV Solu-Medrol. Will also add on IV Mag sulfate infusion. Recheck: improving. Doing better on BiPAP. able to keep sats around 90-93 on 40%FiO2. Recheck: doing adequately well on BiPAP. Mental status and skin perfusion still okay. Still moderately tachypneic, but tolerating. No signs of respiratory fatige. Much improved compared to arrival and stable to hold of on intubation for now. Recheck: stable Recheck: stable for transport on BiPAP. I don't thinks she's ready to come off NIPPV, but clearly has been stable and seems safe for EMS transport without intubation. Vital Signs Vital signs: Initial Vital Signs Pulse Rate 111 H 06/23/24 16:43 Pulse Oximetry 89 06/23/24 16:43 Vital Signs Pulse Rate 111 H 06/23/24 16:43 Pulse Oximetry 89 06/23/24 16:43 Temperature 98.3 F 06/23/24 17:00 Pulse Rate 90 06/23/24 19:01 Respiratory Rate 17 06/23/24 19:01 Blood Pressure 120/72 06/23/24 19:01 Pulse Oximetry 91 06/23/24 19:01 Oxygen Delivery Method BiPAP 06/23/24 18:22 Oxygen Flow Rate 35 06/23/24 17:13 Fraction of Inspired Oxygen 40 06/23/24 18:22 Medications Administered Medications: Discontinued Medications Generic Name Dose Route Start Last Admin Trade Name Freq PRN Reason Stop Dose Admin Albuterol 2.5 mg 06/23/24 17:47 06/23/24 17:58 Albuterol Sulfate 2.5 Mg/3 Ml Vial.Neb NEB 06/23/24 17:48 2.5 mg ONCE ONE Administration Albuterol/Ipratropium 1 neb 06/23/24 16:39 06/23/24 16:44 Iprat-Albut 0.5-2.5 Mg/3 Ml Neb IH 06/23/24 16:40 1 neb ONCE ONE Administration Nitroglycerin/Dextrose 25,000 mcg in 250 mls @ 6 mls/hr 06/23/24 17:06 06/23/24 19:34 Nitroglycerin/Dextrose IVPB Infused .TITRATE PRN Infusion Protocol 10 MCG/MIN Meropenem 1 gm/ Sodium 100 mls @ 200 mls/hr 06/23/24 17:14 06/23/24 18:17 Chloride IVPB 06/23/24 17:15 Infused ONCE ONE Infusion Vancomycin/PEG/NADA/Lysine/Water 1 gm in 200 mls @ 200 mls/hr 06/23/24 17:30 06/23/24 19:19 Vancomycin 1 Gm/200 Ml IVPB 06/23/24 18:29 Infused ONCE ONE Infusion Magnesium Sulfate 2 gm in 50 mls @ 25 mls/hr 06/23/24 18:00 06/23/24 19:58 Magnesium Iv IVPB 06/23/24 19:59 Infused ONCE ONE Infusion Methylprednisolone Sodium Succinate 125 mg 06/23/24 16:39 06/23/24 16:51 Methylprednisolone Sod Succ 62.5 Mg/Ml (125) IVP 06/23/24 16:40 125 mg ONCE ONE Administration Medical Decision Making [facility] Narrative Medical decision making narrative: 1. Patient presented from home by EMS with difficulty breathing and had acute hypoxic respiratory failure with sats in the 70s on room air. When she arrived she was tachypneic, labored breathing, and bordering on complete respiratory failure. Initial concern was for whether not she would require immediate endotracheal intubation for mechanical ventilation. However we were able to place her on BiPAP and she responded fairly nicely. Oxygen sats came up. Work of breathing improved but she still remained tachypneic. Overall mental status was adequate and she was protecting her airway so at this point she is doing well enough on BiPAP that we have been able to delay/hopefully avoid intubation. Respiratory failure is probably multifactorial. COPD: She was clearly wheezy when she presented was receiving nebs by EMS. Suspect this some component of COPD. She was treated with additional medications here in the ER. In addition to BiPAP she received additional DuoNeb, 2 more albuterol nebs, magnesium sulfate. Venous blood gas drawn around the time that she was started on BiPAP shows pH of 7.29 with a pCO2 of 44. CHF: Patient was acutely hypertensive when she presented with a blood pressure of 210/90. Stat portable chest x-ray showed signs of cephalization of flow and CHF per my read. Was started on nitro drip. She responded quite rapidly to that and blood pressure came 210/90 down to about 139/80. We weaned and then stop the nitro drip and blood pressure remained normotensive thereafter. Patient is a dialysis patient and reports that she did have her normal run yesterday. She is not having signs of peripheral edema or otherwise overall volume overload. Therefore will hold off on diuretics for now. Pneumonia: Patient does have a fairly dense area of infiltrate in her left upper lobe by my initial read. It turns out that this is the same area where she has had her lung cancer. It looks like this infiltrate is probably worse today compared to prior. Unclear if this represents a an obstructive pneumonia or simply just due to progression of her lung cancer illness. Started on broad-spectrum antibiotics. Based on allergies and recent hospitalization we gave meropenem and vancomycin. Subsequently She does have a marked leukocytosis of white count of 31. In records she has has had elevated white counts with her past several measurements here in [place] but never as high as 31. She was initially hypertensive and is now normotensive. Lactic acid is mildly elevated at 3.3. Given my concern for CHF and fluid overload on her chest x-ray we have not administered an IV fluid bolus at this point. 2. Renal. BUN 50, creatinine 4.8. Sodium 133. Potassium 4.7. had dialysis yesterday. Doesn't seem volume overloaded. Suspect CHF was related to marked HTN. 3. Cardiac. EKG shows sinus rhythm. Significant respiratory artifact limits my interpretation of her EKG but I do not see any obvious STEMI. Troponin is abnormal at 0.11. Will need serial troponins when she is in the ICU. However at this point suspect probable demand ischemia rather than NSTEMI. No clear arrhythmia on her EKG. BNP level is elevated. CHF likely due to sympathetic tone and marked HTN. BP responded rapidly to nitro drip (now off). 4. Heme. She is anemic with a hemoglobin of 9.8. This seems to be approximately her baseline. Disposition. It is clear this patient required transfer to a facility with ICU and dialysis capabilities. Patient typically gets her care through the [facility] system. Initially call after arrive and had been accepted presumptively by the ICU doctor, Dr. James, from [facility]. Subsequentl confirmed acceptance to ICU at [facility]. Transferred by ground EMS. Lab Data Labs: Lab Results 06/23/24 06/23/24 Range/Units 16:39 17:05 WBC 31.07 H* (4.50-11.00) K/uL RBC 3.48 L (4.00-5.20) m/uL Hgb 9.8 L (12.0-16.0) gm/dL Hct 32.2 L (33.0-51.0) % MCV 93 (80-100) fL MCH 28 (26-34) pg MCHC 30 L (32-36) gm/dL RDW Coeff of Margaret 17.3 H (11.5-15.5) % Plt Count 350 (140-440) K/uL Neut % (Auto) 87.9 H (42.0-72.0) % Lymph % (Auto) 5.5 L (20-44) % [place] % (Auto) 4.2 (0.0-11.0) % Eos % (Auto) 0.1 (0.0-7.0) % Baso % (Auto) 0.1 (0.0-3.0) % Neut # (Auto) 27.30 H (1.7-7.0) K/uL Lymph # (Auto) 1.70 (0.90-2.90) K/uL [place] # (Auto) 1.30 H (0.00-0.90) K/UL Eos # (Auto) 0.00 (0.00-0.50) K/uL Baso # (Auto) 0.00 (0.00-0.30) K/uL Abs Immat Gran (auto) 0.70 H (0.00-0.30) K/uL Imm/Tot Granulo (auto) 2.2 % Diff Slide Review Acceptable Review (Acceptable) VBG pH 7.292 L (7.32-7.43) VBG pCO2 44 (40-50) mmHG VBG pO2 40.6 (25-47) mmHG VBG HCO3 21 (21-28) mmol/L Sodium 133 L (135-149) mmol/L Potassium 4.7 (3.6-5.1) mmol/L Chloride 97 (96-114) mmol/L Carbon Dioxide 20 (20-32) mmol/L Anion Gap 16 H (7-15) mEq/L BUN 50 H (7-30) mg/dL Creatinine 4.8 H (0.5-1.5) mg/dL Estimated GFR 9 ml/min Glucose 255 H (60-115) mg/dL Lactate 3.3 H (0.5-1.9) mmol/L Calcium 9.1 (8.4-10.6) mg/dL NT-Pro-B Natriuret Pep [id number] pg/mL POC Troponin I 0.11 H (0.01-0.04) ng/ml Imaging Data Chest x-ray: Attestation: I have reviewed the pertinent imaging results. My impression: Bedside read: Bilateral pulmonary edema. also MARLIN infiltrate suggestive PNA. No pneumo. Radiologist's impression: Findings/Impression: Mass lesions in the left upper lobe and right perihilar space again noted. Extensive interstitial markings are favored to be progressed compared to prior examinations and could represent pulmonary edema, atypical/viral infection, or lymphangitic spread of disease. Critical Care Time Critical Care Time Critical Care Time: Yes Attestation: The patient required my highest level preparedness to intervene emergently and I personally spent this critical care time directly and personally managing the patient. This critical care time included: Obtaining a history; Examining the patient; Pulse oximetry; Ordering and reviewing of studies; Arranging urgent treatment with development of a management plan; Evaluation of patients response to treatment; Frequent reassessment discussions with other providers. This critical care time was performed to assess and manage the high probability of imminent life-threatening deterioration that could result in multiorgan failure. It was exclusive of separate billable procedures and treating other patients and teaching time. Total Critical Care Time in Minutes: 45 Discharge Plan Discharge Clinical Impression: Acute and chronic respiratory failure with hypoxia, CHF (congestive heart failure), COPD (chronic obstructive pulmonary disease), Lung cancer, Chronic renal failure (CRF), stage 5, Pneumonia, Elevated troponin, Chronic anemia Patient Disposition: Xfer Other Prescriptions: No Action furosemide 40 mg tablet 40 mg PO QAM sennosides [senna] 8.6 mg tablet 8.6 - 34.4 mg PO DAILY PRN clonidine HCl 0.1 mg tablet 0.1 mg PO DIRECTED Rx Instructions: TAKE 2 TABLETS BY MOUTH IN THE MORNING, AND TAKE 3 TABLETS BY MOUTH AT BEDTIME albuterol sulfate 2.5 mg /3 mL (0.083 %) solution for nebulization 2.5 mg Q4H PRN (Reason: dyspnea) sorbitol 70 % solution 30 ml PO DAILY PRN (Reason: constipation) repaglinide 1 mg tablet 1 mg PO 3XD oxycodone 5 mg tablet 5 mg PO BID PRN aspirin 81 mg capsule 81 mg PO DAILY albuterol sulfate 90 mcg/actuation HFA aerosol inhaler 2 puff inhalation BID calcium acetate(phosphat bind) 667 mg capsule 1,334 mg PO 3XD Bion Tears (PF) 0.1-0.3 % dropperette 1 drp ophthalmic (eye) DIRECTED ipratropium-albuterol 0.5 mg-3 mg(2.5 mg base)/3 mL solution for nebulization 3 ml INHALATION Q6H PRN (Reason: dyspnea) spironolactone 25 mg tablet 25 mg PO DAILY nifedipine 90 mg tablet extended release 24hr 90 mg PO DAILY pantoprazole 40 mg tablet,delayed release (DR/EC) 40 mg PO BID Incruse Ellipta 62.5 mcg/actuation blister with device 1 inh INHALATION DAILY triamcinolone acetonide 0.1 % cream topical BID cefdinir 300 mg capsule Patient Comments: [NO ORIGINAL SIG] azithromycin 500 mg tablet DAILY fluticasone propion-salmeterol [Advair Diskus] 250-50 mcg/dose blister with device 1 inh inhalation Q12H cetirizine erythromycin ointment Stand Alone Forms: MyHealth Info Instructions
[2024-06-23] MEDS: NITROGLYCERIN/DEXTROSE 25,000 MCG/250 ML BOTTLE 6 MCG IVPB (17:09)
[2024-06-23 17:13] LABS: HCO3 VBG 21 mmol/L (21-28); Lactate* 3.3 mmol/L (0.5-1.9); PCO2 VBG 44 mmHG (40-50); PO2 VBG 40.6 mmHG (25-47); pH VBG 7.292 (7.32-7.43)
[2024-06-23 17:14] LABS: Basophils Percent Auto 0.1 % (0.0-3.0); Eosinophils Percent Auto 0.1 % (0.0-7.0); Hematocrit 32.2 % (33.0-51.0); Hemoglobin* 9.8 gm/dL (12.0-16.0); Immature Granulocytes Pct Auto 2.2 %; Lymphocytes Percent Auto 5.5 % (20-44); Mean Corpuscular HGB Conc 30 gm/dL (32-36); Mean Corpuscular Hemoglobin 28 pg (26-34); Mean Corpuscular Volume 93 fL (80-100); Monocytes Percent Auto 4.2 % (0.0-11.0); Neutrophils Percent Auto 87.9 % (42.0-72.0); Platelet Count* 350 K/uL (140-440); RDW Coefficient of Variation % 17.3 % (11.5-15.5); Red Blood Count 3.48 m/uL (4.00-5.20)
[2024-06-23 17:20] LABS: Troponin, Point-of-Care* 0.11 ng/ml (0.01-0.04)
[2024-06-23 17:22] LABS: Slide Review Reflex Yes; White Blood Count* 31.07 K/uL (4.50-11.00)
[2024-06-23 17:28] LABS: Chloride* 97 mmol/L (96-114)
[2024-06-23 17:29] LABS: Potassium* 4.7 mmol/L (3.6-5.1); Sodium* 133 mmol/L (135-149)
[2024-06-23 17:31] LABS: Blood Urea Nitrogen* 50 mg/dL (7-30); Creatinine* 4.8 mg/dL (0.5-1.5); Estimated Glomerular Filt Rate 9 ml/min
[2024-06-23 17:32] LABS: Anion Gap 16 mEq/L (7-15); Calcium* 9.1 mg/dL (8.4-10.6); Carbon Dioxide* 20 mmol/L (20-32); Glucose* 255 mg/dL (60-115)
[2024-06-23] MEDS: MEROPENEM 1 GM in 0.9 % SODIUM CHLORIDE Mini-bag 100 ML IVPB (17:42)
--- OUTSIDE RECORDS SUMMARY | 2024-06-23 17:46 | XMS_ITS | Clinical Summary ---
Author Organization [place] Address [address] [place] [address] Care Team Providers Care Front Office Spec Name Role Phone Tyrell Schneider Bulmaro Primary Care Provider [phone] Allergies Active Allergy Reactions Criticality Noted Date [...] 01/09/2010 itching Niacin Rash,Itching Low 05/13/2006 itch [place] Rash Low 05/16/2010 Oxycodone Nausea and [...] times daily 3 Active neomycin-polymyx in-dexAMETHasone (MAXITROL) 3.5-44272-0.[address] 0.25 inches Into the [...] Encounters Date Type Department Care Team Description 06/23/2024 Hospital Encounter [facility] ICU [address] [place] [address] Alhaji Sadler MD 04/27/2024 1:37 PM CDT - 04/27/2024 8:51 PM CDT Emergency [facility] Emergency Dept [address] [place] [phone] Jason Tapia MD Left-sided chest pain; Mass of upper lobe of left lung Discharge Disposition: Home or Self Care 04/27/2024 Results Only [facility] [address] [place] [phone] Emanuel Lozano MD 04/27/2024 Travel from Last [...] CDT RENAL PANEL Routine 12/18/2022 8:45 AM BLANKMAKER OCCULT BLOOD STOOL STAT 12/12/2022 11 :03 PM CDT from Last 3 Months or Most Recently Relevant to Health Maintenance Results * (ABNORMAL) Troponin T, High Sensitivity (04/27/2024 6:12 PM CDT) Only the most recent of3 resultswithin the time period is included. Pathologist [facility] Troponin T, High Sensitivity 137(HH) <=14 ng/L [...] [facility] [address] Lab (1st floor, no room number) [place] [address], [facility] * CT Chest [...] CT CHEST PULMONARY EMBOLISM W CONTRAST LOCATION: [facility] DATE: 04/27/2024 INDICATION: Chest pain, elevated d-dimer [...] CT CHEST PULMONARY EMBOLISM W CONTRAST LOCATION: [facility] DATE: 04/27/2024 INDICATION: Chest pain, elevated d-dimer [...] 1.8 cm in short axis (series 6 [id number]) and left prevascular node measuring 1.2 cm [...] US LOWER EXTREMITY VENOUS DUPLEX RIGHT LOCATION: [facility] DATE: 04/27/2024 INDICATION: RLQ pain, no trauma [...] US LOWER EXTREMITY VENOUS DUPLEX RIGHT LOCATION: [facility] DATE: 04/27/2024 INDICATION: RLQ pain, no trauma [...] fluid collection right groin. Jason Tapia MD IMG US ORDERABLES Final Result * EKG 12-lead, tracing only (04/27/2024 2:47 PM CDT) Systolic Blood Pressure mmHg MUSE Diastolic Blood Pressure mmHg MUSE Ventricular Rate 69 BPM MUSE Atrial Rate 69 BPM MUSE OK Interval 178 ms MUSE QRS Duration 82 ms MUSE QT 394 ms MUSE QTc 422 ms MUSE P Wells 75 degrees MUSE R AXIS 24 degrees MUSE T Wells 80 degrees MUSE Interpretation ECG Sinus rhythm Minimal voltage criteria for LVH, may be normal variant ( Bennie product ) Borderline ECG When compared with ECG of 27-Apr-2024 14:32, (unconfirmed) No significant change was found Unconfirmed report - interpretation of this ECG is computer generated - see medical record for final interpretation Confirmed by - EMERGENCY ROOM, PHYSICIAN ([id number]), publications editor Song Cheung ([id number]) on 04/27/2024 3:21:42 PM MUSE 04/27/2024 2:47 PM CDT 04/27/2024 3:21 PM CDT Emanuel Lozano MD ECG ORDERABLES Edited Result - Final MUSE * Extra Red Top Tube (04/27/2024 1:53 PM CDT) Hold Specimen [facility] 04/27/2024 3:01 PM CDT [facility] Blood BLOOD SPECIMEN / Unknown Venipuncture / Unknown 04/27/2024 1:53 PM CDT 04/27/2024 1:56 PM CDT Jason Tapia MD LAB - BLOOD ORDERABLES Final Result LABORATORY [facility] [address] Lab (1st floor, no room number) [place] [phone] [place] [address] * Extra Blue Top Tube (04/27/2024 1:53 PM CDT) Hold Specimen [facility] 04/27/2024 3:01 PM CDT [facility] Blood BLOOD SPECIMEN / Unknown Venipuncture / Unknown 04/27/2024 1:53 PM CDT 04/27/2024 1:56 PM CDT us Jason Tapia MD LAB - BLOOD ORDERABLES Final Result Performing Organization Address City/[facility]/ZIP Co de Phone Number LABORATORY [facility] [address] Lab (1st floor, no room number) [place] [phone] [place] [address] * (ABNORMAL) CBC with platelets and differential [...] LAB - BLOOD ORDERABLES Final Result LABORATORY [facility] Acute Care Lab [address] Lab (1st floor, no room number) [place] [address], [facility] * (ABNORMAL) D [...] 0.01 ug/mL = 0.76 ug/mL (760 ug/L). Brunilda Juárez et al. Age adjusted D-dimer cut-off levels to rule out pulmonary embolism: The ADJUST-PE Study. REGINA 2014;311:2708-7863.; HJ Rey et al. Diagnostic accuracy of conventional or age adjusted D-dimer cutoff values in older patients with suspected venous thromboembolism. Systemic review and meta-analysis. BMJ 2013:346:f2492. us Jason Tapia MD LAB - BLOOD ORDERABLES Final Result [facility] LABORATORY [facility] Acute Care Lab [address] Lab (1st floor, no room number) [place] [address], [facility] * (ABNORMAL) Comprehensive [...] 2:26 PM CDT [facility] Comment:eGFR calculated usin 2020 CKD-EPI equation. [...] - BLOOD ORDERABLES Final Result [facility] LABORAT[facility] Acute Care Lab [address] Lab (1st floor, no room number) [place] [address] * (ABNORMAL) Renal panel (12/18/2022 8:45 AM BLANKMAKER) Sodium 135 135 - 145 mmol/L 12/18/2022 9:44 AM [facility]ORATORY Comment:Reference intervals for this test were updated on 11/06/2022 to more accurately reflect our healthy population. There may be differences in the flagging of prior results with similar values performed with this method. Interpretation of those prior results can be made in the context of the updated reference intervals. Potassium 4.2 3.4 - 5.3 mmol/L 12/18/2022 9:44 AM [facility] Chloride 99 98 - 107 mmol/L 12/18/2022 9:44 AM [facility] Carbon Dioxide (CO2) 29 22 - 29 mmol/L 12/18/2022 9:44 AM [facility] Anion Gap 7 7 - 15 mmol/L 12/18/2022 9:44 AM [facility] Glucose 128(H) 70 - 99 mg/dL 12/18/2022 9:44 AM [facility] Urea Nitrogen 17.7 8.0 - 23.0 mg/dL 12/18/2022 9:44 AM [facility] Creatinine 2.67(H) 0.51 - 0.95 mg/dL 12/18/2022 9:44 AM [facility] GFR Estimate 18(L) >60 mL/min/1. 73m2 12/18/2022 9:44 AM [facility] Calcium 7.6(L) 8.8 - 10.2 mg/dL 12/18/2022 9:44 AM [facility] Albumin 2.6(L) 3.5 - 5.2 g/dL 12/18/2022 9:44 AM [facility] Phosphorus 2.3(L) 2.5 - 4.5 mg/dL 12/18/2022 9:44 AM [facility] Blood STRUCTURE OF RIGHT UPPER LIMB / Unknown Venipuncture / Unknown 12/18/2022 8:45 AM BLANKMAKER 12/18/2022 8:50 AM BLANKMAKER us David Treviño MD LAB - BLOOD ORDERABLES Final Res ult [facility] Lab [address] Lab (1st floor, no room number) [place] [address], [facility] [phone] * Stool: occult blood (12/12/2022 11:03 PM CDT) Pathologist [facility] Occult Blood Negative Negative JENNIFER 12/12/2022 11:32 PM CDT LABORATORY Stool RECTAL CONTENTS / Unknown Non-blood Collection / Unknown 12/12/2022 11:03 PM CDT 12/12/2022 11:11 PM CDT us Jason Tapia MD LAB - STOOLS ORDERABLES Final Result [facility] Lab [address] Lab (1st floor, no room number) [place] [address], [place] [phone] from Last 3 Months or Most Recently Relevant to Health Maintenance Insurance [employer] ADVANTAGE [employer] ADVANTAGE Advance Directives For more information, please contact: [phone] * Full Code (Latest Code Status on [...] patie nt/ legal decision maker Care Teams Front Office Spec Relationship Specialty Start Date End Date Tyrell Schneider [address] [place] [address] PCP - General Family Medicine 02/19/23
--- OUTSIDE RECORDS SUMMARY | 2024-06-23 17:46 | XMS_ITS | CONTINUITY OF CARE DOCUMENT ---
Author Name User, Q[place] Address [address] [place] [address] Organization [facility] Address [address] [facility] [place] [address] Phone [phone] Care Team Providers Care [employer] Name Role Phone User, QIE Unavailable Unavailable PROBLEMS Condition Status Date Provider Notes Organizati on CKD STAGE ESRD ON DIALYSIS GFR <15 active Shakira Jacobs BRAKE RELINER BRAKE RELINER, [address] [place] [address] [address] [facility] VITAL SIGNS Date Observation Value Provider Organization blood pressure, diastolic 58 mm[Hg] Padmaja Das RN RN, [address] [place] [address] [address] [facility] blood pressure, systolic 141 mm[Hg] Padmaja Das RN RN, [address] [place] [address] [address] [facility] respiratory rate E&M 16 /min Padmaja Solares RN RN, [address] [place] [address] [address] [facility] pulse rate 56 /min Padmaja Das RN RN, [address] [place] [address] [address] [facility] blood pressure, site #1 Upper arm Padmaja Das RN RN, [address] [place] [address] [address] [facility] blood pressure, diastolic, right arm 58 mm[Hg] Padmaja Das RN RN, [address] [place] [address] [address] [facility] blood pressure, systolic, right arm 141 mm[Hg] Padmaja Das RN RN, [address] [place] [address] [address] [facility] temperature E&M 98.0 [degF] Padmaja Das RN RN, [address] [facility] [address] [facility] Body Mass Index (Ratio) 19.46 kg/m2 Padmaja Das RN RN, [address] [facility] [address] [facility] height E&M 62 [in_i] Padmaja Das RN RN, [address] [facility] [id number] [place] [address] [facility] weight E&M 106 [lb_av] Padmaja Das RN RN, [address] [facility] [address] [place] [address] [facility] ALLERGIES Allergy Name Onset Date Reaction Criticality Status Provider Organization DIGIFAB itching Low Criticality active Padmaja Das RN RN, [address] [facility] [address] [facility] GATIFLOXACIN nausea Low Criticality active Ginger [place] RDMS, RVT RDMS, RVT, [address] [facility] [address] [facility] PRAVASTATIN SODIUM myalgia Low Criticality active Ginger [place] RDMS, RVT RDMS, RVT, [address] [facility] [address] [facility] VITEYES OMEGA-3 itching Low Criticality active Ginger Lundahl RDMS, RVT RDMS, RVT, [address] [facility] [address] [facility] OAK rash Low Criticality active Ginger Lundahl RDMS, RVT RDMS, RVT, [address] [facility] [address] [facility] NIACIN itching Low Criticality active Ginger Lundahl RDMS, RVT RDMS, RVT, [address] [facility] [address] [facility] LOSARTAN POTASSIUM itching Low Criticality active Ginger Lundahl RDMS, RVT RDMS, RVT, [address] [facility] [address] [facility] LISINOPRIL rash Low Criticality active Ginger Lundahl RDMS, RVT RDMS, RVT, [address] [facility] [address] [facility] LIPITOR myalgia Low Criticality active Ginger Lundahl RDMS, RVT RDMS, RVT, [address] [place] [address] [facility] HYDROCHLOROTHIAZIDE had significant pruritic rash High Criticality active Ginger Lundahl RDMS, RVT RDMS, RVT, [address] [facility] [address] [facility] GEMFIBROZIL itching Low Criticality active Ginger Lundahl RDMS, RVT RDMS, RVT, [address] [facility] [address] [facility] BUCIO edema Low Criticality active Ginger Lundahl RDMS, RVT RDMS, RVT, [address] [facility] [address] [facility] CATS SOB SOB High Criticality active Ginger Lundahl RDMS, RVT RDMS, RVT, [address] [facility] [address] [facility] ATENOLOL rash Low Criticality active Ginger Lundahl RDMS, RVT RDMS, RVT, [address] [facility] [address] [facility] AMPICILLIN hives Low Criticality active Ginger Lundahl RDMS, RVT RDMS, RVT, [address] [facility] [address] [facility] RESULTS Date Observation Value Provider Organization Refer ence Range Interpretation Location blood glucose, finger stick 161 Padmaja Das RN RN, [address] [facility] [address] [facility] HISTORY OF MEDICATION USE Medication Instructions Status Dates Provider Indications Com ments Organization triamcinolone acetonide 0.1% cream active Tamela Karl , [address] [facility] [address] [facility] sorbitol 70% solution TAKE 30 ML BY MOUTH ONCE A DAY NEEDED FOR CONSTIPATION* active Tamela Karl , [address] [facility] [address] [facility] [address] [facility] senna 8.6 mg tablet take 1-4 tablets by mouth once daily as needed to achieve 2-3 soft bowel movements daily active Tamela Barajas , [address] [facility] [address] [facility] [address] [facility] furosemide 40 mg tablet 1 tablet once a day active [address] [place] [address] [facility] labetalol 300 mg tablet as directed active [address] [facility] [address] [facility] moxifloxacin 0.5% drops as directed active [address] [place] [address] [facility] mupirocin 2% ointment as directed active [address] [facility] [address] [facility] pantoprazole 40 mg tablet,delayed release (DR/EC) 1 tablet twice a day active [address] [facility] [address] [facility] repaglinide 1 mg tablet 1 tablet three times a day active [address] [facility] [address] [facility] TYLENOL WITH CODEINE #3 300-30 MG ORAL TABLET 1-2 tablet every four to six hours as needed completed 05/19 - 04/[address] [facility] [address] [facility] Cipro 500 mg tablet Take 1 tablet by mouth once a day completed 05/19 - 04/[address] [facility] [address] [facility] sodium bicarbonate 650 mg tablet 1 tablet twice a day completed 02/22 - 04/[address] [facility] [address] [facility] labetalol 200 mg tablet 2 tablet twice a day completed 02/22 - 04/[address] [facility] [address] [facility] Levsin 0.125 mg tablet 1-2 tablet every four hours as needed completed 02/22 - 04/[address] [facility] [address] [facility] glipizide 10 mg tablet 2 tablet once a day active 02/22 Ginger Lundahl RDMS, RVT RDMS, RVT, [address] [place] [address] [address] [facility] [address] [facility] ADVAIR DISKUS 250-50 MCG/DOSE INHALATION AEROSOL POWDER BREATH ACTIVATED 1 puff every twelve hours completed 02/22 - 04/[address] [facility] [address] [facility] clonidine HCl 0.2 mg tablet 2 tablet every night active 02/22 Gingermichell Engelahl RDMS, RVT RDMS, RVT, [address] [place] [address] [address] [facility] [address] [facility] cetirizine 10 mg tablet 1 tablet once a day completed 02/22 - 04/[address] [facility] [address] [facility] calcitriol 0.25 mcg capsule 1 capsule once a day completed 02/22 - 04/[address] [facility] [address] [facility] bisacodyl 10 mg suppository once a day completed 02/22 - 04/[address] [facility] [address] [facility] aspirin 81 mg tablet,delayed release (DR/EC) 1 tablet once a day completed 02/22 - 04/[address] [facility] [address] [facility] amlodipine 10 mg tablet 1 tablet twice a day active 02/22 Ginger Engelahl RDMS, RVT RDMS, RVT, [address] [place] [address] [address] [facility] [address] [facility] albuterol sulfate 2.5 mg/3 mL (0.083 %) solution for nebulization Inhale 3 ml every four hours as needed active 02/22 Ginger Lundahl RDMS, RVT RDMS, RVT, [address] [place] [address] [address] [facility] [address] [facility] SOCIAL HISTORY Date Observation Value Provider Organization site on body for surgical procedure brachiobasilic fistula Mahogany Rm MD, MD, [address] [facility] [address] [facility] social history reviewed E&M reviewed - no changes required Padmaja Das RN RN, [address] [facility] [address] [facility] [address] [facility] INSURANCE PROVIDERS Payer name Policy type / Coverage type [facility]ly [facility], 1928–1983 ID [employer] BLUE [employer]IELD - BCBS XZ [id number] MEDICARE [id number] HISTORY OF PROCEDURES Procedure Date Procedure Name Provider Procedure Notes Status Organization SNOMED-CT: [id number] Current Medications Documented Mahogany Rm MD, MD, [address] [facility] [address] completed [facility] INJECTION FENTANYL CITRATE 100MCG Mahogany Rm MD, MD, [address] [place] [address] completed [facility] INJECTION MIDAZOLAM HCL PER 1 MG Mahogany Rm MD, MD, [address] [place] [address] completed [facility] Omnipaque-Visipaque Mahogany Rm MD, MD, [address] [facility] [address] 45ml completed [facility] Wire Mahogany Rm MD, MD, [address] [place] [address] completed [facility] Balloon Mahogany Rm MD, MD, [address] [place] [address] completed [facility] Sheath Mahogany Rm MD, MD, [address] [place] [address] completed [facility] INFUS NORMAL SALINE SOLUTION 250 CC Mahogany Rm MD, MD, [address] [place] [address] completed [facility] Angioplasty within including RS&I Mahogany Rm MD, MD, [address] [place] [address] completed [facility] Fistulagram, Dialysis Mahogany Rm MD, MD, [address] [place] [address] completed [facility] Antibiotic-No Order Mahogany Rm MD, MD, [address] [place] [address] completed [facility] Quailty Measures all negative Mahogany Rm MD, MD, [address] [place] [address] completed [facility] SNOMED-CT:HISTORICAL PNEUMOCOCCAL VACCINATION Mahogany Rm MD, MD, [address] [place] [address] completed [facility] SNOMED-CT:PATIENT ENCOUNTER Mahogany Rm MD, MD, [address] [facility] [address] completed [facility]
--- OUTSIDE RECORDS SUMMARY | 2024-06-23 17:46 | XMS_ITS | Encounter Summary ---
Author Organization [facility] Address [address] [place] [address] Care Team Providers Care Check Cashier Name Role Phone Tyrell Schneider Primary Care Provider [phone] Encounter Details Date Type Department Care Team (Late st Contact Info) Description 06/23/2024 Hospital Encounter [facility] ICU [address] [place] [address] Alhaji Sadler MD [address] [place] [address] Social History Tobacco Use Types Packs/Day Years [...] as of this encounter Miscellaneous Notes * Teleconsult - Alhaji Sadler MD - 06/23/2024 5:20 PM CDT External Facility Transfer Location: [place] Diagnosis: AHRF Reason for transfer: Other (Specify) Higher level of care Clinical details: AHRF with concern for pneumonia on BiPAP Care everywhere has been updated and reviewed: Yes Referring facility has made imaging available through PACS: Not applicable If patient is transferring for specialty care or procedure, the specialist has agreed with need fortransfer and anticipated timeline: Yes Transfer accepted: Yes ICU Level of Care Recommendation: [facility] ICU Service Recommendation: [place]- N/A Final destination: pending Recommendations for referring provider: not applicable documented in this encounter Plan of Treatment Not on file documented as of this encounter Visit Diagnoses Not on filedocumented in this encounter Care Teams Check Cashier Relationship Specialty Start Date End Date Tyrell Schneider [address] [place] [address] PCP - General Family Medicine 02/19/23 documented as of this encounter
--- OUTSIDE RECORDS SUMMARY | 2024-06-23 17:46 | XMS_ITS | Clinical Summary ---
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 [facility] TIME OF LAST DOSE,RANDOM Not Given 05/27/2024 7:54 AM CDT [facility] Blood BLOOD SPECIMEN / Unknown Non-Lab Venipuncture / Unknown 05/27/2024 5:37 AM CDT 05/27/2024 5:43 AM CDT us Miguelito GUNN CHEMISTRY Final Result [facility] INTERNAL ZIP [address] [address] [place] [address] * SCAN-CARDIAC STRIP (05/27/2024 4:00 AM CDT) [...] provider. EXAM: MR HEAD BRAIN WO LOCATION: [facility] DATE: 05/26/2024 INDICATION: >AMS Mental [...] provider. EXAM: MR HEAD BRAIN WO LOCATION: [facility] DATE: 05/26/2024 INDICATION: >AMS Mental [...] face to face confirms understanding of procedure. Database Admin used: No Reason for insertion: Vasoactive Medications [...] Site cleansed with: Chlorhexidine gluconate prep. Line Busher Helper Name: Bard Line Type: Valved Power PICC Lot Number: [id number] Access Assistance:Modified Seldinger Technique (Micro-Introducer) WITHOUT Dermatotomy [...] a central venous catheter per hospital policy. Result [facility] IV ORD Edited Resu lt - Final * MRSA/SA PCR (05/26/2024 3:11 AM CDT) Pathologist [facility] MRSA DNA PCR Negative Negative 05/26/2024 10:49 PM CDT [facility]- NTRAL LABORATORY STAPHYLOCOCCUS AUREUS PCR Negative Negative 05/26/2024 10:49 PM CDT [facility]- NTRAL LABORATORY Other SPECIMEN FROM INTERNAL NOSE / Unknown Non-Blood / Unknown 05/26/2024 3:11 AM CDT 05/26/2024 3:16 AM CDT Narrative [facility]-C[facility]AL LABORATORY - 05/26/2024 10:49 PM CDT Test result does not preclude MRSA or SA nasal colonization. [facility] DO MICROBIOLOGY Final Resul t [facility] LAB[facility]ORY [address] [place] [address], [place] * SCAN-CARDIAC STRIP (05/26/2024 2:00 AM CDT) [...] A1C 6.2(H) <6.0 % OF TOTAL HGB [facility] Comment: Any point of care results exhibiting inconsistency with the patient's clinical status should be repeated using a different testing method. Blood BLOOD SPECIMEN / Unknown 04/21/2024 2:37 PM CDT 04/21/2024 2:38 PM CDT Tyrell Schneider MD CHEMISTRY Final Result [facility] [[email or web address]] [address] [place] [address], [facility] [address] [place] [address] * ANATOMIC PATH CONSULT (04/07/2024 12:28 PM PASTEURISER OPERATOR) Case Report Anatomic Pathology Consultation Case: [id number] Authorizing Provider: Michelle Treviño MD Collected: 04/07/2024 1228 Ordering Location: [facility] C[facility]TRAL LAB Received: 04/20/2024 0852 Pathologist: Kirti Hamilton MD Specimen: Left Upper Lobe Lung Biopsy, [facility] [id number] 04/20/2024 6:51 PM CDT [facility]-C ENTRAL LABORATORY Final Diagnosis CONSULTATIVE REVIEW OF OUTSIDE PATHOLOGY SLIDES FROM [facility] TRANSBRONCHIAL BIOPSY, EBUS LYMPH NODES, BRONCHIAL WASHING [id number]; 04-07-2024 ------ A) LUNG, LEFT, UPPER LOBE, [...] Negative for malignancy 04/20/2024 6:51 PM CDT [employer] LABORATORY-C ENTRAL LABORATORY at 1851 CDT Comment [...] not sufficient for next-generation sequencing. Please call [phone] (option 2), to request block A1 for add on testing, if indicated. 04/20/2024 6:51 PM CDT [facility] LABORAT[facility]-C ENTRAL LABORATORY Clinical Information C34.92 Left [...] lobes. Patient was hospitalized 4 days at [facility] with community-acquired pneumonia in the setting of tobacco use with BMI 16.79, diabetes, and end-stage renal disease on hemodialysis, discharged 04-02-2024. The patient was then hospitalized at [facility] 04-04-2024 and discharged 04-10-2024 with respiratory failure [...] and is pending. 04/20/2024 6:51 PM CDT [facility] [employer] [facility] Gross Description Received from [facility] ([place], [place]) are 13 glass stained slides and an accompanying pathology report with the patient name and outside accession number [id number], collected 04-07-2024. 04/20/2024 6:51 PM CDT [facility] Microscopic Description The final diagnosis is based on microscopic examination of appropriate sections of all specimens. Immunostains performed at the referring facility were reviewed at [facility] from [id number] block A1 with results as follows in tumor cells: P40: Positive TTF1: Negative (highlights background benign pulmonary elements) 04/20/2024 6:51 PM CDT [facility]-C ENTRAL LABORATORY Additional Information Original Date of Biopsy: 04/07/2024 [facility] Pathology Lab [address] [place] [address] Interpreted at [facility], Central Laboratory - [address], [place] [address] 04/20/2024 6:51 PM CDT [facility] ENTRAL LABORATORY Other (Left Upper Lobe Lung Biopsy) Non-Blood / Unknown 04/07/2024 12:28 PM PASTEURISER OPERATOR 04/20/2024 8:52 AM CDT us Michelle Treviño MD PATHOLOGY/CYTOLOGY Final R esult [facility] [address] * (ABNORMAL) C-REACTIVE PROTEIN (04/01/2024 11:09 AM PASTEURISER OPERATOR) C-REACTIVE PROTEIN 5.5(H) <0.5 mg/dL 04/01/2024 11:39 AM PASTEURISER OPERATOR [facility] Blood BLOOD SPECIMEN / Unknown Line/Port / Unknown 04/01/2024 11:09 AM PASTEURISER OPERATOR 04/01/2024 11:19 AM PASTEURISER OPERATOR Victoriano Cooper MD CHEMISTRY Final Result [facility] INTERNAL ZIP [address] [place] [address] * (ABNORMAL) SPUTUM CULTURE, STAIN (03/31/2024 1:00 PM PASTEURISER OPERATOR) CULTURE RESULT(A) 04/03/2024 8:18 AM PASTEURISER OPERATOR [facility]-C ENTRAL LABORATORY CULTURE 1+ Klebsiella pneumoniae 04/03/2024 8:18 AM PASTEURISER OPERATOR [facility] ENTRAL LABORATORY CULTURE 1+ Enterobacter cloacae complex 04/03/2024 8:18 AM PASTEURISER OPERATOR [facility] ENTRAL LABORATORY Comment: Oral cephalosporins are not recommended. May develop resistance during therapy with penicillins and 2-7ug-[id number] cephalosporins as a result of loss of repression of AmpC -lactamase. Therefore, isolates that are initially susceptible may become resistant within 3 to 4 days after initiation of therapy. CULTURE 1+ Pseudomonas aeruginosa 04/03/2024 8:18 AM PASTEURISER OPERATOR [facility]- ENTRAL LABORATORY CULTURE 1+ Usual Viry 04/03/2024 8:18 AM PASTEURISER OPERATOR [facility] ENTRMS LABORATORY GRAM STAIN 3+ PMNs 04/03/2024 8:18 AM PASTEURISER OPERATOR [facility] GRAM STAIN 1+ RBCs 04/03/2024 8:18 AM PASTEURISER OPERATOR [facility] GRAM STAIN 1+ Epithelial cells 04/03/2024 8:18 AM PASTEURISER OPERATOR [facility] GRAM STAIN 1+ Yeast 04/03/2024 8:18 AM PASTEURISER OPERATOR [facility] GRAM STAIN Gram stain performed by [facility] [place] 04/03/2024 8:18 AM PASTEURISER OPERATOR [facility] Sputum SPUTUM SPECIMEN / Unknown Non-Blood / Unknown 03/31/2024 1:00 PM PASTEURISER OPERATOR 03/31/2024 2:15 PM PASTEURISER OPERATOR Narrative Organism Antibiotic Method Susceptibility Klebsiella pneumoniae [...] Jhon Alfred MD MICROBIOLOGY Heydi l Result [facility] [address] [place] [address], [facility] INTERNAL ZIP [phone] [place] [address] * XR DXA BONE DENSITY 2 SITES AXIAL (04/12/2016 1:49 PM PASTEURISER OPERATOR) Anatomical Region Laterality Modality Spine, HIPS, HIPL, HIPR Other Narrative 04/13/2016 10:06 AM PASTEURISER OPERATOR Please see scanned document for results of this study. us Tyrell Schneider MD DEXA Final Result * ANTI HCV (04/04/2016 1:32 PM PASTEURISER OPERATOR) HEPATITIS C ANTIBODY Non-Reacti ve Non-Reacti ve 04/04/2016 7:49 PM PASTEURISER OPERATOR [facility] TRAL LABORATORY Blood BLOOD SPECIMEN / Unknown Venipuncture / Unknown 04/04/2016 1:32 PM PASTEURISER OPERATOR 04/04/2016 3:22 PM PASTEURISER OPERATOR Narrative [facility] - 04/04/2016 7:49 PM PASTEURISER OPERATOR Antibodies to HCV not detected; does not exclude the possibility of exposure to HCV. Tyrell Schneider MD SEND OUTS Final Result [facility] [address] [place] [address], from Last 3 Months or Most Recently Relevant to Health Maintenance Insurance MEDICARE PART A HB ONLY [facility] MR [facility] MARTÍNEZ SCHWARTZ * Guarantor: [employer] Account Type Relation to Patient Date of Phone Billing Address Occ [facility]/[place] [address]OSELIN LEVY [address] [place] [address] [employer] Advance Directives * Full Code (Latest [...] Code Status Discussion: Reviewed Preferences Care Teams Kiln Drawer Relationship Specialty Start Date End Date Tyrell Schneider MD [address] [place] [address] PCP - General 10/08/05 Kirti Rai, RN [address] [place] [id number] Nurse Navigator - Oncology Registered Nurse 04/17/[address] [address] 06/03/24
--- OUTSIDE RECORDS SUMMARY | 2024-06-23 17:46 | XMS_ITS | Clinical Summary ---
Author Organization [employer] Address [address] [place] [phone] Phone Care Team Providers Care Stock Worker And Deliverer Name Role Phone Unavailable Primary Care Provider Unavailabl e Source Comments [employer] is fully rolled out on [employer]. Last update 07/16/08.[employer] Allergies Active Allergy Reactions Criticality Noted Date [...] (81 mg) by mouth daily. Active B Yirlpqu-W-Jptyp Acid (NEPHROCAPS ORAL) Take 1 capsule by [...] Transplant Program [address] [place] [address] Delma Montemayor 06/04/2024 [facility] [address] [place] [address] Case Alvarez MD 06/04/2024 Orders Only Unspecified Department [place] Unknown, Provider 06/04/2024 Documentation Only Transplant Program [address] [place] [address] Delma Montemayor 06/04/2024 Orders Only Unspecified Department [place] Unknown, Provider 06/04/2024 Travel 06/03/2024 11:58 PM CDT - 06/04/2024 3:49 PM CDT Emergency [facility] Medicine [address] [place] [address] Lourdes Hastings MD O'Shaughnessy, Eileen, MD Syncope, unspecified syncope type Discharge Disposition: Discharged to home or self care 06/03/2024 12:15 AM CDT - 06/03/2024 11:33 PM CDT Emergency [facility] Emergency Department [address] [place] [address] Eye trauma from fall; also head and [...] on file Legal Sex Female 6:32 PM CLINICAL DIETICIAN Gender Identity Not on file Sexual Orientation [...] POC Glucose 208(H) 70 - 100 mg/dL [facility] Blood 06/04/2024 11:5 1 AM CDT us Lourdes Hastings MD LABORATORY Final Result [facility] [address] [place] [address], [place] * CT CHEST WITH IV CONTRAST [...] AM CDT) 4H Trop 32(H) <=14 ng/L [facility] 4H Delta Indeterminate Not Significant [facility] Blood 06/04/2024 5:45 AM CDT 06/04/2024 6:41 AM CDT Lourdes Hastings MD LABORATORY Edited Resul t - Final [facility] [address] [place] [id number] * (ABNORMAL) CBC WITH PLTS/AUTO DIFF (06/04/2024 5:45 AM CDT) Only the most recent of2 resultswithin the time period is included. WBC 20.41(H) 4.00 - 10.00 k/cmm [facility] RBC 3.32(L) 3.90 - 5.20 m/cmm [facility] Hgb 9.6(L) 11.5 - 15.7 g/dL [facility] Hematocrit 31.1(L) 34.0 - 45.0 % [facility] MCV 93.7 80.0 - 100.0 fL [facility] MCH 28.9 25.0 - 32.0 pg [facility] MCHC 30.9(L) 31.0 - 36.0 g/dL [facility] RDW 18.0(H) 11.5 - 14.5 % [facility] Plt 289 150 - 400 k/cmm [facility] MPV 10.1 6.5 - 12.5 fL [facility] Automated Abs Neutrophil 18.09(H) 1.70 - 6.50 k/cmm [facility] Comment:Preliminary ANC, Fin al Result to Follow Abs Immature Granulocyte 0.16(H) 0.00 - 0.09 k/cmm [facility] Comment:The Immature Granulo cyte Absolute count contains metamyelocytes and myelocytes. Abs Neutrophil 18.09(H) 1.70 - 6.50 k/cmm [facility] Abs Lymphocyte 1.01 0.80 - 4.00 k/cmm [facility] Abs Monocyte 1.04(H) 0.20 - 1.00 k/cmm [facility] Abs Eosinophil 0.06 0.00 - 0.60 k/cmm [facility] Abs Basophil 0.05 0.00 - 0.20 k/cmm [facility] Blood 06/04/2024 5:45 AM CDT 06/04/2024 6:42 AM CDT Lourdes Hastings MD LABORATORY Edited Resul t - Final Performing Organization Address [facility] Co de Phone Number [address] [phone] * PROTHROMBIN (PT) & INR (06/04/2024 5:45 AM CDT) Only the most recent of2 resultswithin the time period is included. PT 11.9 9.0 - 12.5 sec [facility] INR 1.0 0.8 - 1.1 [facility] Comment: Warfarin Therapeutic Range: Standard Intensity: 2.0 - 3.0 High Intensity: 2.5 - 3.5 Blood 06/04/2024 5:45 AM CDT 06/04/2024 6:41 AM CDT Lourdes Hastings MD LABORATORY Final Result Performing Organization Address [facility] Co de Phone Number [address] [address] * (ABNORMAL) PHOSPHORUS (06/04/2024 5:45 AM CDT) Phosphorus 5.0(H) 2.5 - 4.5 mg/dL [facility] Blood 06/04/2024 5:45 AM CDT 06/04/2024 6:40 AM CDT Lourdes Hastings MD LABORATORY Final Result Performing Organization Address City/[facility] Co de Phone Number [facility] [address] [address] * (ABNORMAL) PANEL BASIC METABOLIC (BMP) (06/04/2024 5:45 AM CDT) Sodium 131(L) 135 - 148 mmol/L [facility] Potassium 4.9 3.5 - 5.3 mmol/L [facility] Chloride 90(L) 92 - 108 mmol/L [facility] CO2 26 22 - 30 mmol/L [facility] Glucose 304(H) 70 - 100 mg/dL [facility] BUN 42(H) 8 - 23 mg/dL [facility] Creatinine 3.62(H) 0.50 - 1.00 mg/dL [facility] Calcium 9.2 8.8 - 10.2 mg/dL [facility] AnGap 15 8 - 16 mmol/L [facility] eGFR (2020 CKD-EPI) 12(L) >=60 ml/min/1.7 3m2 [facility] Comment: The estimated glomerular filtration rate (eGFR) was calculated using the CKD-EPI 2020 creatinine equation, which does not include race as a factor. This equation is validated in individuals 18 years of age and older, and eGFR is normalized to a body surface area of 1.73m^2. Blood 06/04/2024 5:45 AM CDT 06/04/2024 6:40 AM CDT Lourdes Hastings MD LABORATORY Final Result [facility] [address] [address] * MAGNESIUM (06/04/2024 5:45 AM CDT) Magnesium 2.1 1.6 - 2.4 mg/dL [facility] Blood 06/04/2024 5:45 AM CDT 06/04/2024 6:40 AM CDT Lourdes Hastings MD LABORATORY Final Result Performing Organization Address City/[facility]/ZIP Co de Phone Number [facility] [address] [address] * (ABNORMAL) PANEL HEPATIC FUNCTION (06/04/2024 5:45 AM CDT) Total Protein 8.1 6.4 - 8.3 g/dL [facility] Albumin 3.3(L) 3.8 - 5.1 g/dL [facility] Bili Total 0.2 <=1.2 mg/dL [facility] Bili Direct 0.1 <=0.3 mg/dL [facility] Alk Phos 141(H) 35 - 104 IU/L [facility] Comment:No reference range e stablished for patients <18 years old. ALT (SGPT) 19 <=33 IU/L [facility] AST(SGOT) 30 5 - 40 IU/L [facility] Blood 06/04/2024 5:45 AM CDT 06/04/2024 6:40 AM CDT us Lourdes Hastings MD LABORATORY Final Result [facility] [address] [phone] * Laceration Repair (06/04/2024 4:51 AM CDT) Narrative Lourdes Hastings MD - 06/04/2024 4:51 AM CDT Lourdes Hastings MD 06/13/2024 1:18 PM Laceration Repair Performed by: Darline Ruff MD Authorized by: Lourdes Hastings MD Consent: Consent obtained: Verbal Consent given by: Patient Risks discussed: Infection, pain, need for additional repair, poor wound healing, poor cosmetic result and retained foreign body Burns protocol: Procedure explained and questions answered to [...] AM CDT) 2H Trop 32(H) <=14 ng/L [facility] 2H Delta Not Significant Not Significant [facility] Blood 06/04/2024 4:05 AM CDT 06/04/2024 4:10 AM CDT Lourdes Hastings MD LABORATORY Edited Resul t - Final [facility] [address] [phone] * Laceration Repair (06/04/2024 3:48 AM CDT) Narrative Lourdes Hastings MD - 06/04/2024 3:48 AM CDT Lourdes Hastings MD 06/13/2024 1:18 PM Laceration Repair Performed by: Darline Ruff MD Authorized by: Lourdes Hastings MD Consent: Consent obtained: Verbal Consent given by: Patient Risks discussed: Infection, pain, need for additional repair, poor wound healing, poor cosmetic result and retained foreign body Burns protocol: Procedure explained and questions answered to [...] Indications: Syncope/Near Syncope Window: Subxiphoid, Parasternal Short Henderson, Parasternal Long Henderson, Apical 4-Chamber, IVC, and Bilateral Lungs Findings: [...] CDT) HS Troponin I 31(H) <=14 ng/L [facility] Blood 06/04/2024 12:4 4 AM CDT 06/04/2024 12:47 AM CDT Narrative [facility] - 06/04/2024 1:19 AM CDT First Occurrence of the Troponin order is to be drawn Stat by Nursing staff on the unit. us Lourdes Hastings MD LABORATORY Final Result [facility] [address] [id number] * (ABNORMAL) ED CHEMISTRY LABS(NA,K,CL,CO2,GLU,CREAT,CA-IONIZED,ANION GAP) (06/04/2024 12:44 AM CDT) Sodium 134(L) 135 - 148 mmol/L [facility] Chloride 102 92 - 108 mmol/L [facility] AnGap 9 8 - 16 mmol/L [facility] Glucose 134(H) 70 - 100 mg/dL [facility] ICA, Actual 4.13(L) 4.40 - 5.20 mg/dL [facility] ICA, pH Corrected 4.29(L) 4.40 - 5.20 mg/dL [facility] Creatinine 3.11(H) 0.50 - 1.00 mg/dL [facility] BICARB 23 22 - 26 mEq/L [facility] eGFR (2020 CKD-EPI) 15(L) >=60 ml/min/1.7 3m2 [facility] Comment: The estimated glomerular filtration rate (eGFR) was calculated using the CKD-EPI 2020 creatinine equation, which does not include race as a factor. This equation is validated in individuals 18 years of age and older, and eGFR is normalized to a body surface area of 1.73m^2. Potassium 4.7 3.5 - 5.3 mmol/L [facility] Blood 06/04/2024 12:4 4 AM CDT 06/04/2024 12:48 AM CDT Lourdes Hastings MD LABORATORY Final Result Performing Organization Address City/[facility]/ZIP Co de Phone Number [facility] [address] [address] * EXTRA TUBE - SST (06/04/2024 12:43 AM CDT) SST TUBE Stored [facility] Comment:SST tubes (Serum Sep arator) are stored in the lab for 3 days from the collection date. Blood 06/04/2024 12:4 3 AM CDT 06/04/2024 12:50 AM CDT Lourdes Hastings MD LABORATORY Final Result Performing Organization Address City/[facility] Co de Phone Number [facility] [address] [address] * CT OUTSIDE READ HEAD/FACIAL BONES (06/04/2024 [...] 8:25 AM CDT Indication: Patient transferred from [facility] due to Trauma. No initial report accompanied the patient and/or Dr. LOURDES HASTINGS requested an interpretation by me. Technique: CT scan of the head and facial bones done on without without IV contrast. 3 mm axial and coronal reconstructions reviewed in soft tissue and bone windows, per the local institution's scanning protocols, which may differ from the [facility] trauma protocols. Findings: There is no evidence [...] MD - 06/04/2024 Indication: Patient transferred from [facility] due to Trauma.No initial report accompanied the patient and/or Dr. LOURDES HASTINGSrequested an interpretation by me. Technique: CT scan of the head and facial bones done on without withoutIV contrast. 3 mm axial and coronal reconstructions reviewed in softtissue and bone windows, per the local institution's scanning protocols,which may differ from the [facility] trauma protocols. Findings: There is no evidence [...] 7:56 AM CDT Indication: Patient transferred from [facility] due to Trauma. No initial report accompanied the patient and/or Dr. LOURDES HASTINGS requested an interpretation by me. Technique: CT scan of the cervical spine done on 06/03/2024 without IV contrast. 3 mm axial, sagittal and coronal reconstructions reviewed in soft tissue and bone windows, per the local institution's scanning protocols, which may differ from the [facility] trauma protocols. Findings: The lateral masses of [...] MD - 06/04/2024 Indication: Patient transferred from [facility] due to Trauma.No initial report accompanied the patient and/or Dr. LOURDES HASTINGSrequested an interpretation by me. Technique: CT scan of the cervical spine done on 06/03/2024 without IVcontrast. 3 mm axial, sagittal and coronal reconstructions reviewed insoft tissue and bone windows, per the local institution's scanningprotocols, which may differ from the [facility] trauma protocols. Findings: The lateral masses of [...] CDT) 06/04/2024 12:3 2 AM CDT Impressions [facility] CVIS EKG ORDERS - 06/04/2024 12:32 AM CDT SINUS RHYTHM POSSIBLE RIGHT ATRIAL ENLARGEMENT [0.25mV P-WAVE] BORDERLINE ECG P-R Interval 177 ms QRS Interval 81 ms QT Interval 396 ms QTC Interval 412 ms P Henderson 87 QRS Henderson 70 T Wave Henderson 95 Narrative Procedure Note Feliep Douglass III, MD - 06/04/2024 IMPRESSION SINUS RHYTHM POSSIBLE RIGHT ATRIAL ENLARGEMENT [0.25mV P-WAVE] BORDERLINE ECG P-R Interval 177 ms QRS Interval 81 ms QT Interval 396 ms QTC Interval 412 ms P Henderson 87 QRS Henderson 70 T Wave Henderson 95 us Lourdes Hastings MD EKG Final Result [facility] CVIS EKG ORDERS * [facility] MAMMOGRAM SCREENING BILAT (11/21/1999 3:54 PM [...] Recently Relevant to Health Maintenance Insurance MEDICARE [facility] Advance Directives For more information, please contact: [phone] * Full Code (Latest Code Status on [...]
--- OUTSIDE RECORDS SUMMARY | 2024-06-23 17:47 | XMS_ITS | Encounter Summary ---
Author Organization [facility] Address [address] [place] [phone] Phone Care Team Providers Care Crop Or Grain Farmworker Name Role Phone Unavailable Primary Care Provider Unavailabl e Encounter Details Date Type Department Care Team ([facility] st Contact Info) Description 06/04/2024 Orders Only [...] on file Legal Sex Female 6:32 PM REINSURANCE CLAIM ANALYST Gender Identity Not on file Sexual [...]
--- OUTSIDE RECORDS SUMMARY | 2024-06-23 17:47 | XMS_ITS | Encounter Summary ---
Author Organization [facility] Address [address] [place] [address] Phone Care Team Providers Care Library Clerk Name Role Phone Unavailable Primary Care Provider Unavailabl e Encounter Details Date Type Department Care Team (Late st Contact Info) Description 06/04/2024 Documentation Only Transplant Program [address] [place], [place] [id number] Delma Montemayor [address] [place] [address] Social History Tobacco Use Types Packs/Day Years [...] on file Legal Sex Female 6:32 PM CLOCKMAKER Gender Identity Not on file Sexual Orientation [...]
--- OUTSIDE RECORDS SUMMARY | 2024-06-23 17:47 | XMS_ITS | Encounter Summary ---
Author Organization [facility] Address [address] [place] [phone] Phone Care Team Providers Care Fine Artist Name Role Phone Unavailable Primary Care Provider Unavailabl e Encounter Details Date Type Department Care Team ([facility] st Contact Info) Description 06/04/2024 Orders Only [...] on file Legal Sex Female 6:32 PM HOSPITAL INSURANCE REPRESENTATIVE Gender Identity Not on file Sexual [...]
--- OUTSIDE RECORDS SUMMARY | 2024-06-23 17:47 | XMS_ITS | Encounter Summary ---
Author Organization [facility] Address [address] [place] [address] Phone Care Team Providers Care Airplane Flight Attendant Name Role Phone Unavailable Primary Care Provider [...] on file Legal Sex Female 6:32 PM NUTRITION DIRECTOR Gender Identity Not on file Sexual Orientation Not on file documented as of this encounter Plan of Treatment Not on file documented as of this encounter Visit Diagnoses Not on filedocumented in this encounter
--- OUTSIDE RECORDS SUMMARY | 2024-06-23 17:47 | XMS_ITS | Referral Summary ---
Author Organization [facility] Address [address] [place] [address] Phone Care Team Providers Care Cardiac Cath Lab Manager Name Role Phone Unavailable Primary Care Provider Unavailabl e Source Comments [employer] is fully rolled out on [employer]. Last update 07/16/08.[facility] Encounters Date Type Department Care Team Description 06/05/2024 Documentation Only Transplant Program [address] [place] [address] Delma Montemayor 06/04/2024 [facility] [address] [address] Case Alvarez MD 06/04/2024 Orders Only Unspecified Department [place] Unknown, Provider 06/04/2024 Documentation Only Transplant Program [address] [place] [address] Delma Montemayor 06/04/2024 Orders Only Unspecified Department [place] Unknown, Provider 06/04/2024 Travel 06/03/2024 11:58 PM CDT - 06/04/2024 3:49 PM CDT Emergency [facility] Medicine [address] [place] [address] Lourdes Hastings MD O'Shaughnessy, Eileen, MD Syncope, unspecified syncope type Discharge Disposition: Discharged to home or self care 06/03/2024 12:15 AM CDT - 06/03/2024 11:33 PM CDT Emergency [facility] Emergency Department [address] [place], [place] [id number] Eye trauma from fall; also head and [...] (81 mg) by mouth daily. Active B Tyyglxq-U-Zrhll Acid (NEPHROCAPS ORAL) Take 1 capsule by [...] on file Legal Sex Female 6:32 PM [employer] Gender Identity Not on file Sexual Orientation [...] POC Glucose 208(H) 70 - 100 mg/dL [facility] Blood 06/04/2024 11:5 1 AM CDT us Lourdes Hastings MD LABORATORY Final Result [facility] [address] [place] [address], [place] * CT CHEST WITH IV CONTRAST [...] AM CDT) 4H Trop 32(H) <=14 ng/L [facility] 4H Delta Indeterminate Not Significant [facility] Blood 06/04/2024 5:45 AM CDT 06/04/2024 6:41 AM CDT us Lourdes Hastings MD LABORATORY Edited Resul t - Final [facility] [address] [place] [phone] * (ABNORMAL) CBC WITH PLTS/AUTO DIFF (06/04/2024 5:45 AM CDT) Only the most recent of2 resultswithin the time period is included. WBC 20.41(H) 4.00 - 10.00 k/cmm [facility] RBC 3.32(L) 3.90 - 5.20 m/cmm [facility] Hgb 9.6(L) 11.5 - 15.7 g/dL [facility] Hematocrit 31.1(L) 34.0 - 45.0 % [facility] MCV 93.7 80.0 - 100.0 fL [facility] MCH 28.9 25.0 - 32.0 pg [facility] MCHC 30.9(L) 31.0 - 36.0 g/dL [facility] RDW 18.0(H) 11.5 - 14.5 % [facility] Plt 289 150 - 400 k/cmm [facility] MPV 10.1 6.5 - 12.5 fL [facility] Automated Abs Neutrophil 18.09(H) 1.70 - 6.50 k/cmm [facility] Comment:Preliminary ANC, Fin al Result to Follow Abs Immature Granulocyte 0.16(H) 0.00 - 0.09 k/cmm [facility] Comment:The Immature Granulo cyte Absolute count contains metamyelocytes and myelocytes. Abs Neutrophil 18.09(H) 1.70 - 6.50 k/cmm [facility] Abs Lymphocyte 1.01 0.80 - 4.00 k/cmm [facility] Abs Monocyte 1.04(H) 0.20 - 1.00 k/cmm [facility] Abs Eosinophil 0.06 0.00 - 0.60 k/cmm [facility] Abs Basophil 0.05 0.00 - 0.20 k/cmm [facility] Blood 06/04/2024 5:45 AM CDT 06/04/2024 6:42 AM CDT Lourdes Hastings MD LABORATORY Edited Resul t - Final Performing Organization Address [facility] Co de Phone Number [facility] [address] [address] * PROTHROMBIN (PT) & INR (06/04/2024 5:45 AM CDT) Only the most recent of2 resultswithin the time period is included. PT 11.9 9.0 - 12.5 sec [facility] INR 1.0 0.8 - 1.1 [facility] Comment: Warfarin Therapeutic Range: Standard Intensity: 2.0 - 3.0 High Intensity: 2.5 - 3.5 Blood 06/04/2024 5:45 AM CDT 06/04/2024 6:41 AM CDT Lourdes Hastings MD LABORATORY Final Result Performing Organization Address [facility] de Phone Number [facility] [address] [address] * (ABNORMAL) PHOSPHORUS (06/04/2024 5:45 AM CDT) Phosphorus 5.0(H) 2.5 - 4.5 mg/dL [facility] Blood 06/04/2024 5:45 AM CDT 06/04/2024 6:40 AM CDT Lourdes Hastings MD LABORATORY Final Result Performing Organization Address [facility] Co de Phone Number [address] [address] * (ABNORMAL) PANEL BASIC METABOLIC (BMP) (06/04/2024 5:45 AM CDT) Sodium 131(L) 135 - 148 mmol/L [facility] Potassium 4.9 3.5 - 5.3 mmol/L [facility] Chloride 90(L) 92 - 108 mmol/L [facility] CO2 26 22 - 30 mmol/L [facility] Glucose 304(H) 70 - 100 mg/dL [facility] BUN 42(H) 8 - 23 mg/dL [facility] Creatinine 3.62(H) 0.50 - 1.00 mg/dL [facility] Calcium 9.2 8.8 - 10.2 mg/dL [facility] AnGap 15 8 - 16 mmol/L [facility] eGFR (2020 CKD-EPI) 12(L) >=60 ml/min/1.7 3m2 [facility] Comment: The estimated glomerular filtration rate [...] MD LABORATORY Final Result Performing Organization Address [facility] Co de Phone Number [facility] [place] [phone] * MAGNESIUM (06/04/2024 5:45 AM CDT) Pathologist [facility] Magnesium 2.1 1.6 - 2.4 mg/dL [facility] Blood 06/04/2024 5:45 AM CDT 06/04/2024 6:40 AM CDT Lourdes Hastings MD LABORATORY Final Result Performing Organization Address [facility] Co de Phone Number [facility] [address] [address] * (ABNORMAL) PANEL HEPATIC FUNCTION (06/04/2024 5:45 AM CDT) Total Protein 8.1 6.4 - 8.3 g/dL [facility] Albumin 3.3(L) 3.8 - 5.1 g/dL [facility] Bili Total 0.2 <=1.2 mg/dL [facility] Bili Direct 0.1 <=0.3 mg/dL [facility] Alk Phos 141(H) 35 - 104 IU/L [facility] Comment:No reference range e stablished for patients <18 years old. ALT (SGPT) 19 <=33 IU/L [facility] AST(SGOT) 30 5 - 40 IU/L [facility] Blood 06/04/2024 5:45 AM CDT 06/04/2024 6:40 AM CDT us Lourdes Hastings MD LABORATORY Final Result [facility] [address] [place] [phone] * Laceration Repair (06/04/2024 4:51 AM CDT) Narrative Lourdes Hastings MD - 06/04/2024 4:51 AM CDT Lourdes Hastings MD 06/13/2024 1:18 PM Laceration Repair Performed by: Darline Ruff MD Authorized by: Lourdes Hastings MD Consent: Consent obtained: Verbal Consent given by: Patient Risks discussed: Infection, pain, need for additional repair, poor wound healing, poor cosmetic result and retained foreign body [place] protocol: Procedure explained and questions answered to [...] AM CDT) 2H Trop 32(H) <=14 ng/L [facility] 2H Delta Not Significant Not Significant [facility] Blood 06/04/2024 4:05 AM CDT 06/04/2024 4:10 AM CDT Lourdes Hastings MD LABORATORY Edited Resul t - Final [facility] [address] [address] * Laceration Repair (06/04/2024 3:48 AM CDT) Narrative Lourdes Hastings MD - 06/04/2024 3:48 AM CDT Lourdes Hastings MD 06/13/2024 1:18 PM Laceration Repair Performed by: Darline Ruff MD Authorized by: Lourdes Hastings MD Consent: Consent obtained: Verbal Consent given by: Patient Risks discussed: Infection, pain, need for additional repair, poor wound healing, poor cosmetic result and retained foreign body [place] protocol: Procedure explained and questions answered to [...] Indications: Syncope/Near Syncope Window: Subxiphoid, Parasternal Short [place], Parasternal Long [place], Apical 4-Chamber, IVC, and Bilateral Lungs Findings: [...] HS TROPONIN (06/04/2024 12:44 AM CDT) Pathologist [facility] HS Troponin I 31(H) <=14 ng/L [facility] Blood 06/04/2024 12:4 4 AM CDT 06/04/2024 12:47 AM CDT Narrative [facility] - 06/04/2024 1:19 AM CDT First Occurrence of the Troponin order is to be drawn Stat by Nursing staff on the unit. us Lourdes Hastings MD LABORATORY Final Result [facility] [address] [address] * (ABNORMAL) ED CHEMISTRY LABS(NA,K,CL,CO2,GLU,CREAT,CA-IONIZED,ANION GAP) (06/04/2024 12:44 AM CDT) Sodium 134(L) 135 - 148 mmol/L [facility] Chloride 102 92 - 108 mmol/L [facility] AnGap 9 8 - 16 mmol/L [facility] Glucose 134(H) 70 - 100 mg/dL [facility] ICA, Actual 4.13(L) 4.40 - 5.20 mg/dL [facility] ICA, pH Corrected 4.29(L) 4.40 - 5.20 mg/dL [facility] Creatinine 3.11(H) 0.50 - 1.00 mg/dL [facility] BICARB 23 22 - 26 mEq/L [facility] eGFR (2020 CKD-EPI) 15(L) >=60 ml/min/1.7 3m2 [facility] Comment: The estimated glomerular filtration rate (eGFR) was calculated using the CKD-EPI 2020 creatinine equation, which does not include race as a factor. This equation is validated in individuals 18 years of age and older, and eGFR is normalized to a body surface area of 1.73m^2. Potassium 4.7 3.5 - 5.3 mmol/L [facility] Blood 06/04/2024 12:4 4 AM CDT 06/04/2024 12:48 AM CDT Lourdes Hastings MD LABORATORY Final Result Performing Organization Address City/[facility]/ZIP Co de Phone Number [facility] [address] [address] * EXTRA TUBE - SST (06/04/2024 12:43 AM CDT) SST TUBE Stored [facility] Comment:SST tubes (Serum Sep arator) are stored in the lab for 3 days from the collection date. Blood 06/04/2024 12:4 3 AM CDT 06/04/2024 12:50 AM CDT Lourdes Hastings MD LABORATORY Final Result Performing Organization Address [facility] Co de Phone Number [address] [address] * CT OUTSIDE READ HEAD/FACIAL BONES (06/04/2024 [...] 8:25 AM CDT Indication: Patient transferred from [facility] due to Trauma. No initial report accompanied the patient and/or Dr. LOURDES HASTINGS requested an interpretation by me. Technique: CT scan of the head and facial bones done on without without IV contrast. 3 mm axial and coronal reconstructions reviewed in soft tissue and bone windows, per the local institution's scanning protocols, which may differ from the [facility] trauma protocols. Findings: There is no evidence [...] MD - 06/04/2024 Indication: Patient transferred from [facility] due to Trauma.No initial report accompanied the patient and/or Dr. LOURDES HASTINGSrequested an interpretation by me. Technique: CT scan of the head and facial bones done on without withoutIV contrast. 3 mm axial and coronal reconstructions reviewed in softtissue and bone windows, per the local institution's scanning protocols,which may differ from the [facility] trauma protocols. Findings: There is no evidence [...] 7:56 AM CDT Indication: Patient transferred from [facility] due to Trauma. No initial report accompanied the patient and/or Dr. LOURDES HASTINGS requested an interpretation by me. Technique: CT scan of the cervical spine done on 06/03/2024 without IV contrast. 3 mm axial, sagittal and coronal reconstructions reviewed in soft tissue and bone windows, per the local institution's scanning protocols, which may differ from the [facility] trauma protocols. Findings: The lateral masses of [...] MD - 06/04/2024 Indication: Patient transferred from [facility] due to Trauma.No initial report accompanied the patient and/or Dr. LOURDES HASTINGSrequested an interpretation by me. Technique: CT scan of the cervical spine done on 06/03/2024 without IVcontrast. 3 mm axial, sagittal and coronal reconstructions reviewed insoft tissue and bone windows, per the local institution's scanningprotocols, which may differ from the [facility] trauma protocols. Findings: The lateral masses of [...] CDT) 06/04/2024 12:3 2 AM CDT Impressions [facility] CVIS EKG ORDERS - 06/04/2024 12:32 AM CDT SINUS RHYTHM POSSIBLE RIGHT ATRIAL ENLARGEMENT [0.25mV P-WAVE] BORDERLINE ECG P-R Interval 177 ms QRS Interval 81 ms QT Interval 396 ms QTC Interval 412 ms P [place] 87 QRS [place] 70 T Wave [place] 95 Narrative Procedure Note Felipe Douglass III, MD - 06/04/2024 IMPRESSION SINUS RHYTHM POSSIBLE RIGHT ATRIAL ENLARGEMENT [0.25mV P-WAVE] BORDERLINE ECG P-R Interval 177 ms QRS Interval 81 ms QT Interval 396 ms QTC Interval 412 ms P [place] 87 QRS [place] 70 T Wave [place] 95 us Lourdes Hastings MD EKG Final Result [facility] CVIS EKG ORDERS * ISACC MAMMOGRAM SCREENING [...] Recently Relevant to Health Maintenance Insurance MEDICARE [facility] Advance Directives For more information, please contact: [phone] * Full Code (Latest Code Status on [...]
--- OUTSIDE RECORDS SUMMARY | 2024-06-23 17:47 | XMS_ITS | Encounter Summary ---
Author Organization [facility] Address [address] [facility] [place] [place] [address] Phone Care Team Providers Care Jack Setter Name Role Phone Unavailable Primary Care Provider Unavailabl e Reason for Referral * Consult/Test/Treat (Urgent) - New Request Specialty Diagnoses / Procedures Referred By Constantine crump Referred To Contact Ophthalmology / OPHTHALMOLOGY Diagnoses History of cornea transplant Monika Rodriguez MD [address] [facility] [address] [place] [address] Phone: tel: fax: Referral ID Status Reason Start Date Expiration Date V isits Requested Visits Authorized [id number] New Request 06/04/2024 06/04/2025 1 1 Reason for Visit * Reason Comments Fall * Auth/Cert (Routine) Specialty Diagnoses / Procedures Referred By Constantine crump Referred To Contact MEDICINE Diagnoses Syncope, unspecified syncope type Eye trauma from fall; also head and neck trauma Luordes Cheung MD [address] [place] [address] Phone: tel: fax: [facility] Medicine 1 [address] [facility] [address] [place] [address] Phone: tel: fax: Referral ID Status Reason Start Date Expiration Date Visits Re quested Visits Authorized [id number] 1 1 Encounter Details Date Type Department Care Team ([facility] Contact Info) Description 06/03/2024 11:58 PM CDT - 06/04/2024 3:49 PM CDT Emergency [facility] Medicine [address] [facility] [address] [place] [address] Lourdes Cheung MD [address] [facility] [address] [place] [address] Monika Rodriguez MD [address] [facility] [address] [place] [address] Syncope, unspecified syncope type Discharge Disposition: Discharged [...] on file 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 Mena . Date of Admission: 06/03/2024 [...] mg) by mouth daily., Historical Med B Rxigomm-K-Fyipr Acid (NEPHROCAPS ORAL) 1 capsule, Oral, DAILY [...] and phone calls from oncology center in [place]. She has follow-up appointment with primary care 06/08/2024; hopeful they can help facilitate further workup and follow-up appointment with oncology. 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 Primary sieve maker is Dr. Mena . Dialyzes at [facility] [place] via left upper extremity AV fistula Saturday, Saturday, and Saturday. Last run before hospitalization was 06/03/24. Estimated dry weight is 37.5 kilograms; weight upon presentation was 38.8 kilograms. ZIG ZAG STITCHER medication regimen includes Nephrocaps, Phoslo, and Lasix 40 mg daily. Continue hemodialysis Saturday, Saturday, and Saturday Continue ZIG ZAG STITCHER medications Chronic obstructive pulmonary disease, without acute exacerbation This is chronic. There were no symptoms or signs of acute exacerbation during this hospitalization.ZIG ZAG STITCHER medications include albuterol, Breo Ellipta, and Incruse Ellipta Continue ZIG ZAG STITCHER medications Hypertension This is chronic and appears fairly poorly controlled. ZIG ZAG STITCHER medications include hydralazine 100 mg 3 times daily, losartan 50 mg twice daily, nifedipine 120 mg daily, clonidine 0.3 mg twice daily, and spironolactone 25 mg daily. Continue ZIG ZAG STITCHER medications Discuss ongoing management with primary care Type II diabetes mellitus This is chronic. ZIG ZAG STITCHER medications include glipizide 20 mg daily and repaglinide 1 mg 3 times daily before meals. Continue ZIG ZAG STITCHER medications Pending Test Results: None Physical Examination: [...] made. Please schedule an appointment outside of [facility]: Order Comments: Please contact [facility] at [facility] to schedule an appointment as soon as [...] tablet (81 mg) by mouth daily. B Hykvdmo-C-Bmxfp Acid (NEPHROCAPS ORAL) Take 1 capsule by [...] () of patient departure: 06/04/2024 @1530 Destination: [address] [place] [id number] Type of ride:Taxi reference number is [id number] [address] [place] [address], Transportation vendor of ride ([employer]) [phone] If this ride needs to be rescheduled [...] Clinical Coordinators will be informed via a Vizibility page. PCS form was completed in Progress Notes and is ready to be signed and routed to vendor by requestor(for stretcher rides only). Jenny Martinez CMA, 06/04/2024 3:02 PM Patient name: Maricruz Vanegas Date of : 1945 Patient Admitting diagnosis: Patient Active Problem List Diagnosis Syncope, unspecified syncope type Attending provider: Monika Rodriguez MD Insurance: [facility] Secondary insurance: N/A Height: Height: 154.9 cm [...] q4h PRN ESRD on HD Dialyses at [facility] via LUE AVF. Primary sieve maker is Dr. Mena. EDW is 37.5kg but was challenged on 06/03 down to 34.3 kg -No indication for urgent dialysis COPD -Not in acute exacerbation -Continuous oximetry -Duonebs prn HTN Hx hypertensive encephalopathy Most recent note from [facility] at [facility] with a HTN plan. On physical exam [...] -Consider nitro drip if resistant T2DM -on ZIG ZAG STITCHER glipizide and repaglinide which we will hold [...] (sutures in place). Normally gets care in [place] with Dr. Schneider and HD with Dr. Mena. Has primary physician follow up next week. Know lung ca ncer which has been biopsied (squamous cell CA). Per notes appeared they wanted a PET and follow upwith oncology. She prefers to follow up with oncology in [place]. Overall feeling fairly well and would like [...] poor cosmetic result and retained foreign body Winston protocol: Procedure explained and questions answered to [...] poor cosmetic result and retained foreign body Winston protocol: Procedure explained and questions answered to [...] pharmacist on service at PharmD Nephrology & OB/L&D/Pediatric Dietician ([facility]) or [phone]. If no response within needed timeframe, please contact central pharmacy via phone at [phone]. 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 Primary sieve maker is Dr. Mena. EDW is 37.5kg but was challenged on 06/03 down to 34.3 kg -No indication for urgent dialysis COPD -Not in acute exacerbation -Continuous oximetry -Duonebs prn HTN Hx hypertensive encephalopathy Most recent note from [facility] at [facility] with a HTN plan. 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 Gait Deviations: none Stairs: Number of Stairs: 5 Requires Rail: Yes Level of Assist: Modified Gonzales- Patient goes up and down stairs but [...] female presents to PT s/p fall at [facility] after leaving [facility]. Pt states she was diagnosed with lung cancer last week. However, chart review in Care Everywhere indicates this is more like early April? Pt lives in [place] in a house with 4 family members. 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 Pt states she has been losing weight for two years. She denies any pain or shortness of breath. She was recently in [facility] for PNA end of Mar into early April. She was transferred from [place] to [facility] this week for cancer care but [...] pharmacy as she never made it to [place]. Do recommend cognitive assessment given pt's past [...] - Yes. Mikki Gonzales PT 06/04/2024 Pager: Vizibility PT Department documented in this encounter ED Notes * Dejuan Armtsrong RN - 06/04/2024 1:01 AM CDT PIV [...] Per report, [facility] They watched her walk [...] - 06/03/2024 11:59 PM CDT Tx from [facility] with facial trauma from a witnessed fall. [...] CDT Patient: Maricruz Vanegas D.OArnoldB- 1945 ID: [id number] Ref ID: [id number] Phone#: Peer to peer review- [phone] Provider: Dr Daniel Shi MD [phone] Contact: [facility] DOS: 06/04/2024 Scheduled for: Today 06/09/2024 at 130pm OPTICAL DESIGNER Deadline is 06/11/2024 * Utilization Management - Daniel Shi MD - 06/04/2024 3:49 PM CDT 78 y.o. female, with medical history significant for hypertension, T2DM, COPD, ESRD on iHD MWF, chronic pain syndrome, and recent diagnosis of left upper lobe squamous cell carcinoma, who presented from [facility] 06/04/23 after witnessed fall with facial laceration. [...] were not included. TRAUMA TERTIARY EXAM - TOOL SETTER First Exam Maricruz Vanegas : 1945 Sex: [...] past year: Have you had an eye cloth opener hand first thing in the morning to steady [...] Active Cancer and Chronic Renal Disease Consult ADVERTISING SALES REPRESENTATIVE for: ADVERTISING SALES REPRESENTATIVE consult not indicated at this time Mental [...] on guard, watchful, or easily startled? no Omega numb or detached from others, activities, or [...] Clean and leave it open to air Suture/Brandon: Location left facial laceration; Removal date: 1-2 [...] DVT ppx after discharge per primary team. [facility] Trauma Surgery service will sign off at this time. Please feel free to call any member of the team if there are any questions or concerns. Ravinder Friedman APRN, MEDICINE MAN 06/04/2024 14:13 [facility] Department of Surgery Pager: via [employer] FACULTY NOTE This was a shared visit with the MARA, Idalia, on Common Dates: 06/04 . I saw and evaluated the patient and discussed them; please see their note for the complete encounter. Rob elements of the visit include (MDM or time): No new findings on tertiary exam, physical exam stable, will work with therapies and continue with plan of care. aRjan Adams MD, 06/05/2024 8:32 AM * Nursing Assessment - Macrina Funes RN - 06/04/2024 1:32 PM CDT Nursing Assessment Head to Toe Head to Toe Assessment Shift Summary Shift Summary SHIFT SUMMARY [id number] DATA Patient is SBA in the room. [...] DO, 06/04/2024 7:44 AM General Surgery PGY2 [facility] Surgery Service Pager - [phone] * Interval Note Provider - Luis Eduardo Mederos DO - 06/04/2024 7:43 AM CDT --Cervical Spine Clearance-- No evidence of fracture/subluxation on radiography. Clinical exam performed; no midline tenderness with unassisted full ROM. No new numbness/tingling, weakness, or shooting pain in any of the patients extremities. Plan: C-collar removed, c-spine precautions d/c'd. Luis Eduardo Mederos DO, 06/04/2024 7:43 AM General Surgery PGY2 [facility] Surgery Service Pager - [phone] * Nursing Assessment - Michelle Salgado RN - 06/04/2024 5:23 AM CDT Nursing Assessment Head to Toe Head to Toe Assessment BP (!) 169/53 (Cuff Location: Right Arm) Pulse 94 Temp 36.7 ??C (98.1 ??F) Resp 18 Ht 1.549m (5' 1) SpO2 95% Shift Summary Shift Summary NURSING ADMISSION NOTE Maricruz Vanegas : 1945 SEX: female D: Maricruz Vanegas was admitted to [facility] from ED at 0430 for Syncope, unspecified [...] Cardiac Assessment Within Defined Limits except for: Dairy Hand - remote telemetry Respiratory Assessment Within Defined [...] Verbal handoff received from Dr Ruff in [facility]. Patient Class: Inpatient Cardiac Monitoring: Telemetry unit [...] page the Renal Red B Team via [facility] with clinical updates or status changes. Note [...] POC Glucose 208(H) 70 - 100 mg/dL [facility] - POINT OF CARE Blood 06/04/2024 11:5 1 AM CDT us Lourdes Cheung MD LABORATORY Final Result [facility] - POINT OF CARE [address] [place] [address], [place] * CT CHEST WITH IV CONTRAST [...] POC Glucose 230(H) 70 - 100 mg/dL [facility] - POINT OF CARE Blood 06/04/2024 8:37 AM CDT Lourdes Cheung MD LABORATORY Final Result [facility] - POINT OF CARE [address] [place] [address], [place] * XR CHEST 1 VIEW AP [...] POC Glucose 277(H) 70 - 100 mg/dL [facility] POINT OF CARE Blood 06/04/2024 6:20 AM CDT Lourdes Cheung MD LABORATORY Final Result Performing Organization Address [facility] Co de Phone Number [facility] - POINT OF CARE [address] [place] [address], [place] * (ABNORMAL) PANEL HEPATIC FUNCTION (06/04/2024 5:45 AM CDT) [facility] Total Protein 8.1 6.4 - 8.3 g/dL [facility] Albumin 3.3(L) 3.8 - 5.1 g/dL [facility] Bili Total 0.2 <=1.2 mg/dL [facility] Bili Direct 0.1 <=0.3 mg/dL [facility] Alk Phos 141(H) 35 - 104 IU/L [facility] Comment:No reference range e stablished for patients <18 years old. ALT (SGPT) 19 <=33 IU/L [facility] AST(SGOT) 30 5 - 40 IU/L [facility] Blood 06/04/2024 5:45 AM CDT 06/04/2024 6:40 AM CDT Lourdes Cheung MD LABORATORY Final Result Performing Organization Address City/[facility]/ZIP Co de Phone Number [facility] [address] [address] * (ABNORMAL) PHOSPHORUS (06/04/2024 5:45 AM CDT) [facility] Phosphorus 5.0(H) 2.5 - 4.5 mg/dL [facility] Blood 06/04/2024 5:45 AM CDT 06/04/2024 6:40 AM CDT Lourdes Cheung MD LABORATORY Final Result [facility] [address] [address] * MAGNESIUM (06/04/2024 5:45 AM CDT) Magnesium 2.1 1.6 - 2.4 mg/dL [facility] Blood 06/04/2024 5:45 AM CDT 06/04/2024 6:40 AM CDT Lourdes Cheung MD LABORATORY Final Result Performing Organization Address City/[facility] Co de Phone Number [facility] [address] [address] * (ABNORMAL) PANEL BASIC METABOLIC (BMP) (06/04/2024 5:45 AM CDT) Sodium 131(L) 135 - 148 mmol/L [facility] Potassium 4.9 3.5 - 5.3 mmol/L [facility] Chloride 90(L) 92 - 108 mmol/L [facility] CO2 26 22 - 30 mmol/L [facility] Glucose 304(H) 70 - 100 mg/dL [facility] BUN 42(H) 8 - 23 mg/dL [facility] Creatinine 3.62(H) 0.50 - 1.00 mg/dL [facility] Calcium 9.2 8.8 - 10.2 mg/dL [facility] AnGap 15 8 - 16 mmol/L [facility] eGFR (2020 CKD-EPI) 12(L) >=60 ml/min/1.7 3m2 [facility] Comment: The estimated glomerular filtration rate [...] MD LABORATORY Final Result Performing Organization Address City/[facility] Co de Phone Number [facility] [address] [address] * PROTHROMBIN (PT) & INR (06/04/2024 5:45 AM CDT) Pathologist [facility] PT 11.9 9.0 - 12.5 sec [facility] INR 1.0 0.8 - 1.1 [facility] Comment: Warfarin Therapeutic Range: Standard Intensity: 2.0 - 3.0 High Intensity: 2.5 - 3.5 Blood 06/04/2024 5:45 AM CDT 06/04/2024 6:41 AM CDT Lourdes Cheung MD LABORATORY Final Result Performing Organization Address [facility] Co de Phone Number [facility] [address] [address] * (ABNORMAL) CBC WITH PLTS/AUTO DIFF (06/04/2024 5:45 AM CDT) Pathologist [facility] WBC 20.41(H) 4.00 - 10.00 k/cmm [facility] RBC 3.32(L) 3.90 - 5.20 m/cmm [facility] Hgb 9.6(L) 11.5 - 15.7 g/dL [facility] Hematocrit 31.1(L) 34.0 - 45.0 % [facility] MCV 93.7 80.0 - 100.0 fL [facility] MCH 28.9 25.0 - 32.0 pg [facility] MCHC 30.9(L) 31.0 - 36.0 g/dL [facility] RDW 18.0(H) 11.5 - 14.5 % [facility] Plt 289 150 - 400 k/cmm [facility] MPV 10.1 6.5 - 12.5 fL [facility] Automated Abs Neutrophil 18.09(H) 1.70 - 6.50 k/cmm [facility] Comment:Preliminary ANC, Fin al Result to Follow Abs Immature Granulocyte 0.16(H) 0.00 - 0.09 k/cmm [facility] Comment:The Immature Granulo cyte Absolute count contains metamyelocytes and myelocytes. Abs Neutrophil 18.09(H) 1.70 - 6.50 k/cmm [facility] Abs Lymphocyte 1.01 0.80 - 4.00 k/cmm [facility] Abs Monocyte 1.04(H) 0.20 - 1.00 k/cmm [facility] Abs Eosinophil 0.06 0.00 - 0.60 k/cmm [facility] Abs Basophil 0.05 0.00 - 0.20 k/cmm [facility] Blood 06/04/2024 5:45 AM CDT 06/04/2024 6:42 AM CDT Lourdes Cheung MD LABORATORY Edited Resul t - Final Performing Organization Address [facility] de Phone Number [facility] [address] [address] * (ABNORMAL) TROP 4H (06/04/2024 5:45 AM CDT) 4H Trop 32(H) <=14 ng/L [facility] 4H Delta Indeterminate Not Significant [facility] Blood 06/04/2024 5:45 AM CDT 06/04/2024 6:41 AM CDT Lourdes Cheung MD LABORATORY Edited Resul t - Final Performing Organization Address [facility] Phone Number [address] [address] * Laceration Repair (06/04/2024 4:51 AM CDT) Narrative Lourdes Cheung MD - 06/04/2024 4:51 AM CDT Lourdes Cheung MD 06/13/2024 1:18 PM Laceration Repair Performed by: Darline Ruff MD Authorized by: Lourdes Cheung MD Consent: Consent obtained: Verbal Consent given by: Patient Risks discussed: Infection, pain, need for additional repair, poor wound healing, poor cosmetic result and retained foreign body Winston protocol: Procedure explained and questions answered to [...] AM CDT) 2H Trop 32(H) <=14 ng/L [facility] 2H Delta Not Significant Not Significant [facility] Blood 06/04/2024 4:05 AM CDT 06/04/2024 4:10 AM CDT Lourdes Cheung MD LABORATORY Edited Resul t - Final [facility] [address] [address] * Laceration Repair (06/04/2024 3:48 AM CDT) Narrative Lourdes Cheung MD - 06/04/2024 3:48 AM CDT Lourdes Cheung MD 06/13/2024 1:18 PM Laceration Repair Performed by: Darline Ruff MD Authorized by: Lourdes Cheung MD Consent: Consent obtained: Verbal Consent given by: Patient Risks discussed: Infection, pain, need for additional repair, poor wound healing, poor cosmetic result and retained foreign body Winston protocol: Procedure explained and questions answered to [...] Indications: Syncope/Near Syncope Window: Subxiphoid, Parasternal Short [place], Parasternal Long [place], Apical 4-Chamber, IVC, and Bilateral Lungs Findings: [...] (PT) & INR (06/04/2024 12:44 AM CDT) [facility] PT 13.1(H) 9.0 - 12.5 sec [facility] INR 1.1 0.8 - 1.1 [facility] Comment: Warfarin Therapeutic Range: Standard Intensity: 2.0 - 3.0 High Intensity: 2.5 - 3.5 Blood 06/04/2024 12:4 4 AM CDT 06/04/2024 1:06 AM CDT us Lourdes Cheung MD LABORATORY Final Result [facility] [address] [address] * (ABNORMAL) HS TROPONIN (06/04/2024 12:44 AM CDT) Pathologist [facility] HS Troponin I 31(H) <=14 ng/L [facility] Blood 06/04/2024 12:4 4 AM CDT 06/04/2024 12:47 AM CDT Narrative [facility] - 06/04/2024 1:19 AM CDT First Occurrence of the Troponin order is to be drawn Stat by Nursing staff on the unit. us Lourdes Cheung MD LABORATORY Final Result [facility] [address] [address] * (ABNORMAL) CBC WITH PLTS/AUTO DIFF (06/04/2024 12:44 AM CDT) Pathologist [facility] WBC 22.27(H) 4.00 - 10.00 k/cmm [facility] RBC 3.27(L) 3.90 - 5.20 m/cmm [facility] Hgb 9.6(L) 11.5 - 15.7 g/dL [facility] Hematocrit 30.8(L) 34.0 - 45.0 % [facility] MCV 94.2 80.0 - 100.0 fL [facility] MCH 29.4 25.0 - 32.0 pg [facility] MCHC 31.2 31.0 - 36.0 g/dL [facility] RDW 17.9(H) 11.5 - 14.5 % [facility] Plt 293 150 - 400 k/cmm [facility] MPV 11.3 6.5 - 12.5 fL [facility] NRBC 0.1(H) 0.0 - 0.0 /100WBC [facility] Automated Abs Neutrophil 20.30(H) 1.70 - 6.50 k/cmm [facility] Comment:Preliminary ANC, Fin al Result to Follow Abs Immature Granulocyte 0.23(H) 0.00 - 0.09 k/cmm [facility] Comment:The Immature Granulo cyte Absolute count contains metamyelocytes and myelocytes. Abs Neutrophil 20.30(H) 1.70 - 6.50 k/cmm [facility] Abs Lymphocyte 0.61(L) 0.80 - 4.00 k/cmm [facility] Abs Monocyte 0.97 0.20 - 1.00 k/cmm [facility] Abs Eosinophil 0.09 0.00 - 0.60 k/cmm [facility] Abs Basophil 0.07 0.00 - 0.20 k/cmm [facility] Blood 06/04/2024 12:4 4 AM CDT 06/04/2024 1:06 AM CDT Lourdes Cheung MD LABORATORY Edited Resul t - Final Performing Organization Address City/[facility] Co de Phone Number [facility] [address] [address] * (ABNORMAL) ED CHEMISTRY LABS(NA,K,CL,CO2,GLU,CREAT,CA-IONIZED,ANION GAP) (06/04/2024 12:44 AM CDT) Sodium 134(L) 135 - 148 mmol/L [facility] Chloride 102 92 - 108 mmol/L [facility] AnGap 9 8 - 16 mmol/L [facility] Glucose 134(H) 70 - 100 mg/dL [facility] ICA, Actual 4.13(L) 4.40 - 5.20 mg/dL [facility] ICA, pH Corrected 4.29(L) 4.40 - 5.20 mg/dL [facility] Creatinine 3.11(H) 0.50 - 1.00 mg/dL [facility] BICARB 23 22 - 26 mEq/L [facility] eGFR (2020 CKD-EPI) 15(L) >=60 ml/min/1.7 3m2 [facility] Comment: The estimated glomerular filtration rate (eGFR) was calculated using the CKD-EPI 2020 creatinine equation, which does not include race as a factor. This equation is validated in individuals 18 years of age and older, and eGFR is normalized to a body surface area of 1.73m^2. Potassium 4.7 3.5 - 5.3 mmol/L [facility] Blood 06/04/2024 12:4 4 AM CDT 06/04/2024 12:48 AM CDT Lourdes Cheung MD LABORATORY Final Result [facility] [address] [place] [address] * EXTRA TUBE - SST (06/04/2024 12:43 AM CDT) SST TUBE Stored [facility] Comment:SST tubes (Serum Sep arator) are stored in the lab for 3 days from the collection date. Blood 06/04/2024 12:4 3 AM CDT 06/04/2024 12:50 AM CDT us Lourdes Cheung MD LABORATORY Final Result [facility] [address] [address] * CT OUTSIDE READ HEAD/FACIAL BONES (06/04/2024 [...] 8:25 AM CDT Indication: Patient transferred from [facility] due to Trauma. No initial report accompanied the patient and/or Dr. LOURDES CHEUNG requested an interpretation by me. Technique: CT scan of the head and facial bones done on without without IV contrast. 3 mm axial and coronal reconstructions reviewed in soft tissue and bone windows, per the local institution's scanning protocols, which may differ from the [facility] trauma protocols. Findings: There is no evidence [...] MD - 06/04/2024 Indication: Patient transferred from [facility] due to Trauma.No initial report accompanied the patient and/or Dr. LOURDES CHEUNGrequested an interpretation by me. Technique: CT scan of the head and facial bones done on without withoutIV contrast. 3 mm axial and coronal reconstructions reviewed in softtissue and bone windows, per the local institution's scanning protocols,which may differ from the [facility] trauma protocols. Findings: There is no evidence [...] 7:56 AM CDT Indication: Patient transferred from [facility] due to Trauma. No initial report accompanied the patient and/or Dr. LOURDES CHEUNG requested an interpretation by me. Technique: CT scan of the cervical spine done on 06/03/2024 without IV contrast. 3 mm axial, sagittal and coronal reconstructions reviewed in soft tissue and bone windows, per the local institution's scanning protocols, which may differ from the [facility] trauma protocols. Findings: The lateral masses of [...] MD - 06/04/2024 Indication: Patient transferred from [facility] due to Trauma.No initial report accompanied the patient and/or Dr. LOURDES CHEUNGrequested an interpretation by me. Technique: CT scan of the cervical spine done on 06/03/2024 without IVcontrast. 3 mm axial, sagittal and coronal reconstructions reviewed insoft tissue and bone windows, per the local institution's scanningprotocols, which may differ from the [facility] trauma protocols. Findings: The lateral masses of [...] CDT) 06/04/2024 12:3 2 AM CDT Impressions [facility] CVIS EKG ORDERS - 06/04/2024 12:32 AM CDT SINUS RHYTHM POSSIBLE RIGHT ATRIAL ENLARGEMENT [0.25mV P-WAVE] BORDERLINE ECG P-R Interval 177 ms QRS Interval 81 ms QT Interval 396 ms QTC Interval 412 ms P [place] 87 QRS [place] 70 T Wave [place] 95 Narrative Procedure Note Felipe Douglass III, MD - 06/04/2024 IMPRESSION SINUS RHYTHM POSSIBLE RIGHT ATRIAL ENLARGEMENT [0.25mV P-WAVE] BORDERLINE ECG P-R Interval 177 ms QRS Interval 81 ms QT Interval 396 ms QTC Interval 412 ms P [place] 87 QRS [place] 70 T Wave [place] 95 us Lourdes Cheung MD EKG Final Result [facility] CVIS EKG ORDERS documented in this encounter [...] 06/04/2024 12:26 PM CDT 40 mg heparin 32456 UNITS/mL injection 2,500 UNITS 2,500 UNITS, Subcutaneous, [...] (Given - Provid er: Macrina Funes RN) [facility] REC REVIEW BY PHARMACY(Linked Group 1) Discharge [...] - Provid er: Macrina Funes RN) heparin 23132 UNITS/mL injection 2,500 UNITS 2,500 UNITS, Subcutaneous, [...] Provid er: Giuliana Ardon, RT - Comment: [id number]) losartan (COZAAR) tablet 50 mg 50 mg, [...]
--- OUTSIDE RECORDS SUMMARY | 2024-06-23 17:47 | XMS_ITS | Encounter Summary ---
Author Organization [facility] Address [address] [facility] [address] [facility] 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 B Yztcwcd-D-Gzeij Acid (NEPHROCAPS ORAL) Take 1 capsule by [...]
--- OUTSIDE RECORDS SUMMARY | 2024-06-23 17:47 | XMS_ITS | Encounter Summary ---
Author Organization [facility] Address [address] [facility] [place] [address] Phone Care Team Providers Care Executive Director Sheltered Workshop Name Role Phone Unavailable Primary Care Provider Unavailabl e Encounter Details Date Type Department Care Team (Late st Contact Info) Description 06/05/2024 Documentation Only Transplant Program 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 Delma Mnotemayor, 06/05/2024 7:20 AM documented in this encounter Plan of Treatment Not on file documented as of this encounter Visit Diagnoses Not on filedocumented in this encounter
--- OUTSIDE RECORDS SUMMARY | 2024-06-23 17:47 | XMS_ITS | Encounter Summary ---
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
[2024-06-23] MEDS: MAGNESIUM IV 2 GM/50 ML PIGGYBACK IVPB (17:56)
[2024-06-23] MEDS: ALBUTEROL SULFATE 2.5 MG/3 ML VIAL.NEB NEB (17:58)
[2024-06-23] MEDS: VANCOMYCIN 1 GM/200 ML 1 GM/200 ML PIGGYBACK IVPB (18:17)
[2024-06-23 18:34] LABS: NT Pro B Type NatriureticPept* 314000 pg/mL
[2024-06-23 22:58] LABS: Slide Review Acceptable Review (Acceptable)
== END 2024-06-23 20:19 | disposition other institution (70) ==
PROVIDERS: Emergency Provider Emergency Medicine; PCP Family Medicine
DX: J18.9 Pneumonia, unspecified organism (principal); J96.21 Acute and chronic respiratory failure with hypoxia; I50.9 Heart failure, unspecified; J44.9 Chronic obstructive pulmonary disease, unspecified; N18.5 Chronic kidney disease, stage 5; C34.90 Malignant neoplasm of unspecified part of unspecified bronchus or lung
CPT/HCPCS: 36415; 71045; 80048; 82803; 83605; 83880; 84484; 85025; 87040; 93005; 94640; 94761; 99285; 99291; J2185; J2919; J3372; J3475

== ENCOUNTER 2024-06-23 20:10 | Outpatient (CLI) | payer MEDICARE, SELFPAY | END 2024-06-23 20:11 | disposition home or self-care (01) | LOC: AMB 06-25 08:37 | PROVIDERS: PCP Family Medicine; Visit Provider Emergency Medicine | DX: J96.21 Acute and chronic respiratory failure with hypoxia (principal); I50.9 Heart failure, unspecified; J44.9 Chronic obstructive pulmonary disease, unspecified; C34.90 Malignant neoplasm of unspecified part of unspecified bronchus or lung | CPT/HCPCS: A0425; A0434 ==

== ENCOUNTER 2024-07-06 08:18 | Outpatient (CLI) | payer MEDICARE, SELFPAY | END 2024-07-06 08:19 | disposition home or self-care (01) | LOC: AMB 07-07 11:26 | PROVIDERS: PCP Family Medicine; Visit Provider Family Medicine | DX: R06.09 Other forms of dyspnea (principal); R53.1 Weakness | CPT/HCPCS: A0425; A0427 ==

== ENCOUNTER 2024-07-11 11:04 | Outpatient (CLI) | payer MEDICARE, SELFPAY | END 2024-07-11 11:05 | disposition home or self-care (01) | PROVIDERS: PCP Family Medicine; Visit Provider Family Medicine | DX: R53.1 Weakness (principal) | CPT/HCPCS: A0425; A0428 ==

== ENCOUNTER 2024-07-14 14:12 | Outpatient (CLI) | payer MEDICARE, SELFPAY | END 2024-07-14 14:13 | disposition home or self-care (01) | PROVIDERS: PCP Family Medicine; Visit Provider Family Medicine | DX: R53.1 Weakness (principal) | CPT/HCPCS: A0425; A0427 ==

== ENCOUNTER 2024-07-23 12:22 | Outpatient (CLI) | payer MEDICARE, SELFPAY | END 2024-07-23 12:23 | disposition home or self-care (01) | LOC: AMB 07-24 10:46 | PROVIDERS: PCP Family Medicine; Visit Provider Family Medicine | DX: I10 Essential (primary) hypertension (principal) | CPT/HCPCS: A0998 ==

== ENCOUNTER 2024-07-28 07:44 | Outpatient (CLI) | payer MEDICARE, SELFPAY | END 2024-07-28 07:45 | disposition home or self-care (01) | LOC: AMB 07-29 10:34 | PROVIDERS: PCP Family Medicine; Visit Provider Family Medicine | DX: R06.09 Other forms of dyspnea (principal) | CPT/HCPCS: A0425; A0427 ==

== ENCOUNTER 2024-08-09 23:19 | Outpatient (CLI) | payer MEDICARE, SELFPAY | END 2024-08-09 23:20 | disposition home or self-care (01) | LOC: AMB 08-13 07:39 | PROVIDERS: PCP Family Medicine; Visit Provider Family Medicine | DX: R06.02 Shortness of breath (principal) | CPT/HCPCS: A0425; A0427 ==